=== PATIENT | male | born 1945 | race Caucasian/White ===

== ENCOUNTER 2024-04-09 15:14 | Emergency (ER) | payer MEDICARE, SELFPAY ==
[2024-04-09] VITALS (49 sets, daily range): BP systolic 106–150; BP diastolic 72–107; PULSE 77–142; RESP 12; TEMP 36.6; O2SAT 86–95; BMI 15.8
--- NOTE | 2024-04-09 15:15 | ECG_ITS ---
[facility] Test Date: 2024-04-09 Pat Name: Corwin Muller Department: Room: - Gender: Male Ekg Manager: : 1945 Requested By: OKSANA ANDERSEN Order Number: [id number] Reading MD: OKSANA ANDERSEN Measurements Intervals [place] Rate: 141 P: -[id number] MI: -[id number] QRS: -8 QRSD: 90 T: 60 QT: 328 QTc: 410 Interpretive Statements SVT, can't exclude atrial fibrillation 2420 RSR (QR) in lead V1/V2, consistent with right ventricular conduction delay 3434 Septal myocardial infarction, age undetermined 8102 Low QRS voltage in chest leads 9150 abnormal ECG Electronically Signed On 04-10-2024 7:12:01 EST by OKSANA ANDERSEN
--- NOTE | 2024-04-09 15:43 | ED.GENADUL1 ---
HPI HPI - General Adult General Chief complaint: Arrhythmia/Palpitations Stated complaint: possible afib Time Seen by Provider: 04/09/24 15:18 Source: patient Mode of arrival: walk-in Limitations: no limitations History of Present Illness HPI narrative: 79-year-old male to the emergency department with chief complaint of palpitations. Patient was seen in the office of his primary care doctor today and was found to have a heart rate in the 140s. He has no history of atrial arrhythmias. He reports that he has had some decreased exercise tolerance but no chest pain or shortness of breath over the last week. No recent illness. No nausea vomiting diarrhea. Related Data Home Medications ?Medication ?Instructions ?Recorded ?Confirmed amlodipine 10 mg tablet 10 mg PO DAILY 04/09/24 04/09/24 Allergies Allergy/AdvReac Type Severity Reaction Status Date / Time No Known Drug Allergies Allergy Verified 04/09/24 15:24 Opioid HPI Opioid Management Most Recent Opioid Data: No Data to Display Review of Systems ROS Status of ROS 10 or more systems reviewed and unremarkable except as noted in history and below PFSH PFSH Social History Little interest or pleasure in doing things: not at all Feeling down, depressed, or hopeless: not at all Exam Narrative Exam Narrative: VITALS: I have reviewed the triage vital signs. GENERAL: Well developed, well appearing adult in no acute distress. NEURO: Alert and oriented. Moves all extremities. Face is symmetric and expressive. EYES: PERRL. No scleral icterus or conjunctival injection. No discharge. HENT: Normocephalic, atraumatic. Hearing is grossly intact. Nares grossly patent and without discharge. Mucous membranes moist. NECK: No JVD. Patient moves neck without restriction. CARDIO: Rhythm regular. Tachycardic. No murmur, rub, or gallop. Pulses equal bilaterally in the upper and lower extremity. No lower extremity edema. PULM: Lungs clear to auscultation in all adler. No wheezes, rales, or rhonchi. No conversational dyspnea. No splinting, stridor, or accessory muscle use. GI/: Abdomen is soft and non-tender. Normoactive bowel sounds. EXTREMITIES: Symmetric muscle bulk. No joint swelling. No clubbing, cyanosis, or deformity. SKIN: Warm and dry. Normal turgor. No rash or lesions appreciated. PSYCH: Mood, affect, and interaction is appropriate to the setting. Constitutional Vital Signs, click to edit/add: Last Vital Signs Temp 98 F 04/09/24 15:19 Pulse 136 H 04/09/24 19:15 Resp 19 04/09/24 19:15 BP 135/97 H 04/09/24 19:01 Pulse Ox 93 L 04/09/24 19:15 O2 Del Method Room Air 04/09/24 15:19 Course Vital Signs Vital signs: Vital Signs Temperature 98 F 04/09/24 15:19 Pulse Rate 140 H 04/09/24 15:19 Respiratory Rate 18 04/09/24 15:19 Oxygen Delivery Method Room Air 04/09/24 15:19 Temperature 98 F 04/09/24 15:19 Pulse Rate 136 H 04/09/24 19:15 Respiratory Rate 19 04/09/24 19:15 Blood Pressure 135/97 H 04/09/24 19:01 Pulse Oximetry 93 L 04/09/24 19:15 Oxygen Delivery Method Room Air 04/09/24 15:19 Medical Decision Making [facility] Narrative Medical decision making narrative: 79-year-old male to the emergency department with chief complaint of palpitations, elevated heart rate. Tachycardic, otherwise stable vitals. The patient is afebrile. Cardiac workup is initiated. Magnesium level ordered. EKG without any discernible P waves. Narrow complex tachycardia that is supraventricular in nature. Sinus tachycardia versus atrial flutter with 2:1 conduction versus atrial fibrillation with pseudonormalization. No ischemic changes. Normal QTc. Lab work reviewed and noted. He has a small increase in his baseline creatinine from 1.8-2.3 today. His troponin is significantly elevated. 1 hour had a slight decrease. Chest x-ray without acute findings. He was started on Cardizem bolus and drip. Given his significantly elevated troponin level we will pursue transfer for this patient. A call was placed out to [facility]. Care was signed out to Dr. Guillen with transfer pending. Medical Records Medical records reviewed: Yes I reviewed the patient's medical records Lab Data Lab results reviewed: Yes I reviewed the patient's lab results Labs: Lab Results 04/09/24 04/09/24 Range/Units 15:30 17:03 WBC 9.9 (4.0-11.0) 10^3/uL RBC 5.01 (4.70-6.10) 10^6/uL Hgb 15.0 (14.0-18.0) g/dL Hct 43.4 (42.0-54.0) % MCV 86.6 (80.0-94.0) fL MCH 29.9 (25.9-34.0) pg MCHC 34.6 (29.9-35.2) g/dL RDW 14.0 (11.0-15.0) % Plt Count 259 (150-450) 10^3/uL MPV 10.6 (9.5-13.5) fL Neut % (Auto) 59.1 (43.0-75.0) % Lymph % (Auto) 25.7 (20.5-60.0) % [place] % (Auto) 10.4 (1.7-12.0) % Eos % (Auto) 3.9 (0.9-7.0) % Baso % (Auto) 0.5 (0.2-2.0) % Neut # (Auto) 5.9 (1.4-6.5) 10^3/uL Lymph # (Auto) 2.6 (1.2-3.8) 10^3/uL [place] # (Auto) 1.0 H (0.3-0.8) 10^3/uL Eos # (Auto) 0.4 (0.0-0.7) 10^3/uL Baso # (Auto) 0.1 (0.0-0.1) 10^3/uL Abs Immat Gran (auto) 0.04 H (0.00-0.03) 10^3/uL Imm/Tot Granulo (auto) 0.4 (0.0-0.5) % PT 11.6 (9.0-11.6) sec INR 1.11 APTT 28.5 (22.3-36.2) sec Sodium 137 (136-145) mmol/L Potassium 3.7 (3.5-5.1) mmol/L Chloride 103 (98-107) mmol/L Carbon Dioxide 24.6 (21.0-32.0) mmol/L Anion Gap 13.1 BUN 29.0 H (7.0-18.0) mg/dL Creatinine 2.62 H (0.70-1.30) mg/dL Est GFR ( Amer) 29 L (>=60 mL/min/1.73m^2) Est GFR (Non-Af Amer) 24 L (>=60 mL/min/1.73m^2) BUN/Creatinine Ratio 11.1 Glucose 108 H (74-106) mg/dL Calcium 9.4 (8.5-10.1) mg/dL Magnesium 2.0 (1.8-2.4) mg/dL Troponin I High Sens 910.6 H* 896.5 H* (4.0-76.1) pg/mL NT-Pro-B Natriuret Pep 8857.0 H* (<=1800.0) pg/mL Critical Care Time Critical Care Time Critical Care Time: Yes Total Critical Care Time: 35 Attestation: Critical Care Procedure Note Authorized and Performed by: Gómez Parker DO Total critical care time: 35 min Due to a high probability of clinically significant, life threatening deterioration, the patient required my highest level of preparedness to intervene emergently and I personally spent this critical care time directly and personally managing the patient. This critical care time included obtaining a history; examining the patient; pulse oximetry; ordering and review of studies; arranging urgent treatment with development of a management plan; evaluation of patient's response to treatment; frequent reassessment; and, discussions with other providers. This critical care time was performed to assess and manage the high probability of imminent, life-threatening deterioration that could result in multi-organ failure. It was exclusive of separately billable procedures and treating other patients and teaching time. Please see MDM section and the rest of the note for further information on patient assessment and treatment. Discharge Plan Discharge Chief Complaint: Arrhythmia/Palpitations Patient Disposition: Still a Patient Prescriptions / Home Meds: No Action amlodipine 10 mg tablet 10 mg PO DAILY Print Language: [place] Referrals: Ranjan Lomas DO [Primary Care Provider] - 1 week
[2024-04-09 15:56] LABS: Basophils Absolute Auto 0.1 10^3/uL (0.0-0.1); Basophils Percent Auto 0.5 % (0.2-2.0); Eosinophils Absolute Auto 0.4 10^3/uL (0.0-0.7); Eosinophils Percent Auto 3.9 % (0.9-7.0); Hematocrit 43.4 % (42.0-54.0); Immature Granulocytes Abs Auto 0.04 10^3/uL (0.00-0.03); Immature Granulocytes Pct Auto 0.4 % (0.0-0.5); Lymphocytes Absolute Auto 2.6 10^3/uL (1.2-3.8); Lymphocytes Percent Auto 25.7 % (20.5-60.0); Mean Corpuscular HGB Conc 34.6 g/dL (29.9-35.2); Mean Corpuscular Hemoglobin 29.9 pg (25.9-34.0); Mean Corpuscular Volume 86.6 fL (80.0-94.0); Mean Platelet Volume 10.6 fL (9.5-13.5); Monocytes Percent Auto 10.4 % (1.7-12.0); Neutrophils Absolute Auto 5.9 10^3/uL (1.4-6.5); Neutrophils Percent Auto 59.1 % (43.0-75.0); Platelet Count 259 10^3/uL (150-450); Red Blood Count 5.01 10^6/uL (4.70-6.10); White Blood Count 9.9 10^3/uL (4.0-11.0)
[2024-04-09 16:08] LABS: INR 1.11; Partial Thromboplastin Time 28.5 sec (22.3-36.2); Prothrombin Time 11.6 sec (9.0-11.6)
[2024-04-09 16:16] LABS: Anion Gap 13.1; BUN Creatinine Ratio 11.1; Calcium 9.4 mg/dL (8.5-10.1); Carbon Dioxide 24.6 mmol/L (21.0-32.0); Chloride 103 mmol/L (98-107); Estimated GFR (African America 29 (>=60 mL/min/1.73m^2); Estimated GFR (Non-African Ame 24 (>=60 mL/min/1.73m^2); Glucose 108 mg/dL (74-106); Potassium 3.7 mmol/L (3.5-5.1); Sodium 137 mmol/L (136-145)
[2024-04-09 16:18] LABS: Troponin I High Sensitivity 910.6 pg/mL (4.0-76.1)
[2024-04-09] MEDS: DILTIAZEM HCL 25 MG/5 ML VIAL 15 MG IV (16:50)
[2024-04-09] MEDS: dilTIAZem HCL 125 MG in 0.9 % SODIUM CHLORIDE 100 ML 10 MG IV (16:50)
[2024-04-09] MEDS: DILTIAZEM HCL 25 MG/5 ML VIAL 10 MG IV (17:20)
[2024-04-09 17:29] LABS: Troponin I High Sensitivity 896.5 pg/mL (4.0-76.1)
--- NOTE | 2024-04-09 20:35 | ED.GENADUL1 ---
HPI HPI - General Adult General Chief complaint: Arrhythmia/Palpitations Stated complaint: possible afib Time Seen by Provider: 04/09/24 15:18 Source: patient Mode of arrival: walk-in Limitations: no limitations History of Present Illness HPI narrative: 79-year-old male presented to the emergency department and was initially seen by Dr. Parker and signed out to me after discussing the case with him thoroughly. Please see his full history and physical exam. Related Data Home Medications ?Medication ?Instructions ?Recorded ?Confirmed amlodipine 10 mg tablet 10 mg PO DAILY 04/09/24 04/09/24 Allergies Allergy/AdvReac Type Severity Reaction Status Date / Time No Known Drug Allergies Allergy Verified 04/09/24 15:24 Opioid HPI Opioid Management Most Recent Opioid Data: No Data to Display PFSH PFSH Social History Little interest or pleasure in doing things: not at all Feeling down, depressed, or hopeless: not at all Exam Constitutional Vital Signs, click to edit/add: Last Vital Signs Temp 98 F 04/09/24 15:19 Pulse 136 H 04/09/24 19:15 Resp 19 04/09/24 19:15 BP 135/97 H 04/09/24 19:01 Pulse Ox 93 L 04/09/24 19:15 O2 Del Method Room Air 04/09/24 15:19 Course Vital Signs Vital signs: Vital Signs Temperature 98 F 04/09/24 15:19 Pulse Rate 140 H 04/09/24 15:19 Respiratory Rate 18 04/09/24 15:19 Oxygen Delivery Method Room Air 04/09/24 15:19 Temperature 98 F 04/09/24 15:19 Pulse Rate 136 H 04/09/24 19:15 Respiratory Rate 19 04/09/24 19:15 Blood Pressure 135/97 H 04/09/24 19:01 Pulse Oximetry 93 L 04/09/24 19:15 Oxygen Delivery Method Room Air 04/09/24 15:19 Medical Decision Making MDM Narrative Medical decision making narrative: The appears to be in atrial flutter and is tachycardic. He has already received IV Cardizem and was placed on a Cardizem drip. He was also given IV digoxin for rate control. Initial troponin was 910, repeat is 895. I have spoken to Dr. Langley at [facility] who accepts the patient. The patient is stable and agreeable for transfer. The patient is not dyspneic. Differential Diagnosis Differential Diagnosis: Atrial fibrillation, atrial flutter Lab Data Lab results reviewed: Yes I reviewed the patient's lab results Labs: Lab Results 04/09/24 04/09/24 Range/Units 15:30 17:03 WBC 9.9 (4.0-11.0) 10^3/uL RBC 5.01 (4.70-6.10) 10^6/uL Hgb 15.0 (14.0-18.0) g/dL Hct 43.4 (42.0-54.0) % MCV 86.6 (80.0-94.0) fL MCH 29.9 (25.9-34.0) pg MCHC 34.6 (29.9-35.2) g/dL RDW 14.0 (11.0-15.0) % Plt Count 259 (150-450) 10^3/uL MPV 10.6 (9.5-13.5) fL Neut % (Auto) 59.1 (43.0-75.0) % Lymph % (Auto) 25.7 (20.5-60.0) % [place] % (Auto) 10.4 (1.7-12.0) % Eos % (Auto) 3.9 (0.9-7.0) % Baso % (Auto) 0.5 (0.2-2.0) % Neut # (Auto) 5.9 (1.4-6.5) 10^3/uL Lymph # (Auto) 2.6 (1.2-3.8) 10^3/uL [place] # (Auto) 1.0 H (0.3-0.8) 10^3/uL Eos # (Auto) 0.4 (0.0-0.7) 10^3/uL Baso # (Auto) 0.1 (0.0-0.1) 10^3/uL Abs Immat Gran (auto) 0.04 H (0.00-0.03) 10^3/uL Imm/Tot Granulo (auto) 0.4 (0.0-0.5) % PT 11.6 (9.0-11.6) sec INR 1.11 APTT 28.5 (22.3-36.2) sec Sodium 137 (136-145) mmol/L Potassium 3.7 (3.5-5.1) mmol/L Chloride 103 (98-107) mmol/L Carbon Dioxide 24.6 (21.0-32.0) mmol/L Anion Gap 13.1 BUN 29.0 H (7.0-18.0) mg/dL Creatinine 2.62 H (0.70-1.30) mg/dL Est GFR ( Amer) 29 L (>=60 mL/min/1.73m^2) Est GFR (Non-Af Amer) 24 L (>=60 mL/min/1.73m^2) BUN/Creatinine Ratio 11.1 Glucose 108 H (74-106) mg/dL Calcium 9.4 (8.5-10.1) mg/dL Magnesium 2.0 (1.8-2.4) mg/dL Troponin I High Sens 910.6 H* 896.5 H* (4.0-76.1) pg/mL NT-Pro-B Natriuret Pep 8857.0 H* (<=1800.0) pg/mL Imaging Data Chest x-ray: Radiologist's impression: Bilateral interstitial infiltrates Critical Care Time Critical Care Time Critical Care Time: Yes Total Critical Care Time: 35 Attestation: Due to the high probability of sudden and clinically significant deterioration in the patient's condition he/she required the highest level of my preparedness to intervene urgently I provided critical care time including documentation time, medication orders and management, reevaluation, vital sign assessment, ordering and reviewing of lab tests, ordering and reviewing of x-ray studies, and admission orders. Aggregate critical care time is 35 minutes including only time during which I was engaged in work directly related to his/her care and did not include time spent treating other patients simultaneously. Discharge Plan Discharge Chief Complaint: Arrhythmia/Palpitations Clinical Impression: Atrial flutter Patient Disposition: [facility] Time of Disposition Decision: 20:35 Discharge Location: [facility] Condition: Fair Mode of Transportation: EMS
--- NOTE | 2024-04-09 20:51 | ECG_ITS ---
[facility] Test Date: 2024-04-09 Pat Name: LIOR SMITH Department: Room: - Gender: Male Vocational Guidance Counselor: : 1945 Requested By: OKSANA ANDERSEN Order Number: [id number] Reading MD: OKSANA ANDERSEN Measurements Intervals [place] Rate: 82 P: 60 HI: 276 QRS: 0 QRSD: 100 T: 90 QT: 382 QTc: 420 Interpretive Statements 1100 Sinus rhythm 1470 with occasional supraventricular premature complexes 2231 First degree AV block 2440 Incomplete right bundle branch block 3434 Septal myocardial infarction, age undetermined 9150 abnormal ECG Electronically Signed On 04-10-2024 7:13:33 EST by OKSANA ANDERSEN
[2024-04-09] MEDS: FUROSEMIDE 40 MG/4 ML VIAL IVP (22:12)
--- NOTE | 2024-04-09 22:40 | PC.NURSE ---
To room at 2215. Pt with respiratory distress--SPO2 is 87% with 5 L/NC, RR is 44 with neck and abdominal muscle use, anxious. NRM at 15 L applied, 40 mg IV Lasix given, and # 16 FR Coude Ruiz placed. MD aware and in room to assess. Pt placed on BiPAP. NSR with 1st degree AVB-rate is 90.
[2024-04-09] MEDS: MORPHINE SULFATE 2 MG/ML SYRINGE IV (22:45)
--- NOTE | 2024-04-09 22:55 | PC.NURSE ---
Cardizem remains at 5 mg/hr or 5 ml/hr. BiPAP /. Pt is tolerating this well. RR is 24 and less labored. Thus far 1000 ml emptied out of Ruiz.
--- NOTE | 2024-04-09 23:11 | PC.NURSE ---
called and updated about pt condition. Pt to be transported to [facility] per [facility] at 0045. Pt continues to diuresis well and RR is 20. He states that he is breathing and feeling much better. VSS.
--- NOTE | 2024-04-09 23:16 | PC.NURSE ---
Pt has a # 20 g to the L FA and a #20 G to the R hand. These were started at 2215, when it was noticed that pt accidentally d/c'ed the L AC IV. Cardizem running through the L hand IV.
[2024-04-10] VITALS: BP 121/76; PULSE 80
[2024-04-10 00:15] VITALS: PULSE 86
[2024-04-10 00:30] VITALS: PULSE 83
--- NOTE | 2024-04-10 00:34 | PC.NURSE ---
Pt continues to tolerate the BiPAP. VSS. He remains sleepy but fully oriented. Cardizem gtt continued at 5 mg/hr or 5 ml/hr. BPs remain WNLs. RR at 16.
[2024-04-10 00:36] VITALS: BP 116/73; PULSE 78; O2SAT 96
[2024-04-10 00:45] VITALS: BP 126/85; PULSE 85; O2SAT 98
--- NOTE | 2024-04-10 00:54 | PC.NURSE ---
Report called to [facility] staff. Report given to EMT-P. Care relinquished.
== END 2024-04-10 01:10 | disposition short-term general hospital (02) ==
PROVIDERS: Student in an Organized Health Care Education/Training Program; Emergency Provider Emergency Medicine; PCP Internal Medicine
DX: I48.92 Unspecified atrial flutter (principal)
CPT/HCPCS: 36415; 51702; 71045; 80048; 83735; 83880; 84484; 85025; 85610; 85730; 93005; 94660; 96365; 96366; 96375; 96376; 99285; J1940; J2270

== ENCOUNTER 2024-04-22 10:06 | Outpatient (OUT) | payer MEDICARE, SELFPAY ==
--- OUTSIDE RECORDS SUMMARY | 2024-04-22 10:22 | XMS_ITS | CCD ---
Author Organization [facility] Providers Care Park Recreation Manager Name Role Phone NATHALY, DR GANDHI Admitting Unavailable NATHALY, DR GANDHI Attending Unavailable NATHALY, DR GANDHI Primary Care Unavailable NATHALY, DR GANDHI Consulting Unavailable Nathaly, Ranjan Unavailable Ranjan Lomas DO Primary Care Provider Shivam ANGUIANO, Kurtis Admit Provider [phone] Ai Orantes RN Other Provider Unavailable Dequan Kirkpatrick DO Other Provider Bhavik ANGUIANO, Keron Other Provider [phone] Tyshawn ANGUIANO, Gurjit Mike Other Provider Suellen ANGUIANO, Mely Other Provider [phone] Yvan Mckeon MD Other Provider Hailey Weinberg APRN Other Provider Leonie Gaines MD Other Provider Geremias ANGUIANO, Lexi Leach Other Provider Bret Castañeda MD Other Provider Syd [facility]-, Susana Good Other Provider [phone] Felicia Aguilar MD Other Provider David VALVE TESTER-C, Tavia Other Provider Unavailable Eliana ANGUIANO, Tobi Other Provider Noel Lilly MD Other Provider Gin Conrad MD Other Provider Luis Patel MD Other Provider Cathleen Kumari APRN Other Provider Colt Curran DO Other Provider David Inman MD Other Provider Jn Yaens MD Attending Provider Jn Yanes Attending Unavailable Ranjan Lomas Primary Care Unavailable Ai Orantes Consulting Unavailable Kurtis Langley Admitting Unavailable Dequan Kirkpatrick Consulting Unavailable Keron Gutierres Consulting Unavailable Gurjit Villagran Consulting Unavail able Mely Ken Consulting Unavailable Yvan Mckeon Consulting Unavailab Hailey Garcia Consulting Unavailable Leonie Gaines Consulting Unavailable Lexi Archuleta Consulting Unavailab Bret Larsen Consulting Unavailable Susana Velarde Consulting Unavailable Felicia Aguilar Consulting Unavailable Tavia Hernandez Consulting Unavailable Tobi Monroy Consulting Unavailable Noel Lilly Consulting Unavailable Gin Conrad Consulting Unavailable Luis Patel Consulting Unavailable Cathleen Kumari Consulting Unavailable Colt Curran Jr Consulting UnavailDavid Christiansen Consulting Unavaila ble Medications Current Medications Medication Drug Class(es) Dates Sig (Normalized) Sig (Original) amiodarone hydrochloride 200 mg oral tablet (1 source) Antiarrhythmic Start: 04-16-2024 take 1 tablet by mouth three times daily, then take 1 tablet by mouth once daily Amiodarone 200 mg tablet Active 200 MG PO Three times daily 42 April 16, 2024 12:00am Amiodarone 200 mg TID for 1 week, then decrease to 200 mg daily. apixaban 2.5 mg oral tablet (1 source) Factor Xa Inhibitor Start: 04-16-2024 take 1 tablet by mouth twice daily Apixaban (Eliquis) 2.5 mg Tablet Active 2.5 MG PO Twice daily 60 April 16, 2024 12:00am aspirin 81 mg delayed release oral tablet (1 source) Platelet Aggregation Inhibitor, Nonsteroidal Anti-inflammatory Drug Start: 04-16-2024 take 1 tablet by mouth once daily Aspirin 81 mg Tablet,Delayed Release (Dr/Ec) Active 81 MG PO Daily 30 April 16, 2024 12:00am atorvastatin 10 mg oral tablet (9 sources) HMG-CoA Reductase Inhibitor Start: 06-27-2023 take 1 tablet by mouth once daily Atorvastatin 10 mg tablet Active 10 MG PO Daily June 26, 2023 11:00pm take 1 tablet by abdirizak th every twenty-four hours Atorvastatin Calcium 10 MG 1 tablet Oral ly Once a day Not-Taking/PRN furosemide 40 mg oral tablet (1 source) Loop Diuretic Start: 04-18-2024 take 1 tablet by mouth twice daily Furosemide 40 mg Tablet Active 40 MG PO BID@0800,1600 60 April 18, 2024 12:00am To begin therapy on 04/19/24 hydrALAZINE hydrochloride 25 mg oral tablet (1 source) Arteriolar Vasodilator Start: 04-18-2024 take 1 tablet by mouth twice daily Hydralazine 25 mg Tablet Active 25 MG PO Twice daily 60 April 18, 2024 12:00am 24 hr isosorbide mononitrate 30 mg extended release oral tablet (1 source) Nitrate Vasodilator Start: 04-16-2024 take 1 tablet by mouth once daily, then take 1 tablet by mouth every twenty-four hours Isosorbide Mononitrate 30 mg Tablet Extended Release 24 Hr Active 30 MG PO Daily at 0600 30 April 16, 2024 12:00am melatonin 5 mg oral tablet (1 source) Start: 04-18-2024 take 1 tablet by mouth once daily at bedtime as needed for sleep Melatonin 5 mg Tablet Active 5 MG PO Daily at bedtime as needed for sleep April 18, 2024 12:00am 24 hr metoprolol succinate 50 mg extended release oral tablet (1 source) beta-Adrenergic Susie Start: 04-16-2024 take 1 tablet by mouth twice daily Metoprolol Succinate 50 mg Tablet Extended Release 24 Hr Active 50 MG PO Twice daily 60 April 16, 2024 12:00am Multivitamin Adult (5 sources) Multivitamin Ford lt Active Multivitamin preparation (2 sources) Start: 06-27-2023 take 1 tablet by mouth once daily Multivitamin Active 1 TAB PO Daily June 27, 2023 12:00am Multivitamin tablet (2 sources) Start: 06-27-2023 take 1 tablet by mouth once daily Multivitamin tablet Active 1 TAB PO Daily June 26, 2023 11:00pm microencapsulated potassium chloride 20 meq extended release oral tablet (1 source) Start: 04-18-2024 Potassium Chloride (Klor-Con M20) 20 mEq Tablet,Er Particles/Crystals Active 20 MEQ PO Daily April 18, 2024 12:00am To start 04/19/24 with lasix spironolactone 25 mg oral tablet (1 source) Aldosterone Antagonist Start: 04-16-2024 Spironolactone 25 mg Tablet Active 12.5 MG PO Daily April 16, 2024 12:00am Completed/Discontinued Medications Medication Drug Class(es) Dates Sig (Normalized) Sig (Original) amLODIPine 10 mg oral tablet (14 sources) Dihydropyridine Calcium Channel Susie Start: 11-05-2023 End: 04-18-2024 take 1 tablet by mouth once daily Amlodipine 10 mg tablet Discontinued 0 .ROUTE .COMPLEX December 15, 2023 3:25pm April 18, 2024 12:06pm Take 1 tablet by mouth once daily Start: 06-27-2023 End: 11-05-2023 take 1 tablet by mouth once daily Amlodipine 10 mg tablet Discontinued 10 MG PO Daily June 26, 2023 11:00pm November 05, 2023 4:50pm take 1 tablet by abdirizak th once daily amLODIPine Besylate 10 MG Take 1 tablet by mouth once daily Active Brompheniramine / Pseudoephedrine (5 sources) alpha-Adrenergic Agonist Start: 02-02-2016 take 10 mL by mouth every six hours as needed Bromfed DM 30-2-10 MG/5ML 10 ml as needed Orally every 6 hrs Jan, Not-Taking/PRN Start: 02-02-2016 take 10 mL by mouth every six hours as needed Bromfed DM 30-2-10 MG/5ML 10 ml as needed Orally every 6 hrs Jan, Not-Taking Lidocaine (7 sources) Antiarrhythmic, Amide Local Anesthetic Start: 02-10-2023 Lidocaine Jan, 3 mL Start: 07-19-2022 Lidocaine 30 2022 30 mg triamcinolone acetonide 10 mg/ml injectable suspension (7 sources) Corticosteroid Start: 02-10-2023 Kenalog Jan 1 mL Start: 07-19-2022 Kenalog-40 June, 40 mg Problems Active Problems Problem Classification Problem Date Documented Date Episodic/Chronic Acute and unspecified renal failure (3 sources) Acute renal failure syndrome; Translations: [Acute kidney failure, unspecified] Onset: 04-10-2024 04-12-2024 Episodic Acute myocardial infarction (3 sources) Myocardial infarction; Translations: [Non-ST elevation (NSTEMI) myocardial infarction] Onset: 04-10-2024 04-10-2024 Chronic Cardiac dysrhythmias (7 sources) Atrial tachycardia; Translations: [Atrial tachycardia] Onset: 04-10-2024 04-09-2024 Chronic Chronic kidney disease (6 sources) Chronic kidney disease, stage 4 (severe); Translations: [Chronic kidney disease stage 3] Onset: 12-08-2021 04-12-2024 Chronic Chronic kidney disease (2 sources) Chronic kidney disease; Translations: [Chronic kidney disease, stage 3b] Onset: 04-10-2024 Congestive heart failure; nonhypertensive (9 sources) Heart failure with reduced ejection fraction; Translations: [Unspecified systolic (congestive) heart failure] Onset: 04-10-2024 04-11-2024 Chronic Diseases of mouth; excluding dental (3 sources) Recurrent aphthous stomatitis; Translations: [Recurrent oral aphthae] Episodic Disorders of lipid metabolism (16 sources) Pure hypercholesterolemia; Translations: [Familial hypercholesterolemia] 06-25-2023 Chronic Esophageal disorders (3 sources) Esophageal disorders; Translations: [Gastro-esophageal reflux disease with esophagitis, without bleeding] Onset: 04-19-2016 Essential hypertension (20 sources) Essential hypertension; Translations: [Essential (primary) hypertension] Onset: 04-10-2024 Chronic Hyperplasia of prostate (3 sources) Lower urinary tract symptoms due to benign prostatic hypertrophy; Translations: [Benign prostatic hyperplasia with lower urinary tract symptoms] Chronic Hypertension with complications and secondary hypertension (9 sources) Hypertensive chronic kidney disease with stage 1 through stage 4 chronic kidney disease, or unspecified chronic kidney disease; 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] Onset: 12-03-2021 Chronic Neoplasms of unspecified nature or uncertain behavior (11 sources) Neoplasm of uncertain behavior, unspecified; Translations: [Neoplasm of uncertain behavior] Onset: 11-10-2016 Episodic Osteoarthritis (20 sources) Arthritis of right hip; Translations: [Unilateral primary osteoarthritis, right hip] Onset: 03-28-2014 Chronic Other circulatory disease (3 sources) History of cerebrovascular accident without residual deficits; Translations: [Personal history of transient ischemic attack (TIA), and cerebral infarction without residual deficits] Episodic Other connective tissue disease (5 sources) Bilateral plantar fasciitis; Translations: [Plantar fascial fibromatosis] Episodic Other connective tissue disease (1 source) Plantar fascial fibromatosis Episodic Other ear and sense organ disorders (15 sources) Impacted cerumen; Translations: [Impacted cerumen, bilateral] Resolved: 11-10-2021 Episodic Other ear and sense organ disorders (2 sources) Impacted cerumen, bilateral Episodic Other ear and sense organ disorders (3 sources) Otalgia; Translations: [Otalgia, left ear] Episodic Other lower respiratory disease (1 source) Acute pulmonary edema; Translations: [Acute pulmonary edema] 04-11-2024 Episodic Other lower respiratory disease (2 sources) Acute pulmonary edema; Translations: [Acute edema of lung, unspecified] Onset: 04-10-2024 04-18-2024 Episodic Other non-traumatic joint disorders (16 sources) Arthralgia of the lower leg; Translations: [Pain in right knee] Episodic Other non-traumatic joint disorders (2 sources) Pain in right knee Episodic Other non-traumatic joint disorders (2 sources) Pain in left knee Episodic Other non-traumatic joint disorders (3 sources) Pain in right hip joint; Translations: [Pain in right hip] Episodic Other non-traumatic joint disorders (8 sources) Pain in unspecified knee; Translations: [Knee pain] Onset: 04-10-2024 06-25-2023 Episodic Other nutritional; endocrine; and metabolic disorders (3 sources) Overweight; Translations: [Overweight] Episodic Other screening for suspected conditions (not mental disorders or infectious disease) (1 source) Encounter for screening for malignant neoplasm of prostate; Translations: [ENC SCREEN MALIG NEOPLASM PROSTATE] Onset: 12-08-2021 Episodic Other upper respiratory disease (3 sources) Seasonal allergic rhinitis; Translations: [Other seasonal allergic rhinitis] Onset: 11-10-2016 Chronic Marely-; endo-; and myocarditis; cardiomyopathy (except that caused by tuberculosis or sexually transmitted disease) (3 sources) Cardiomyopathy; Translations: [Cardiomyopathy, unspecified] Onset: 04-10-2024 04-11-2024 Chronic Residual codes; unclassified (3 sources) Tobacco user; Translations: [Tobacco use] Episodic Respiratory failure; insufficiency; arrest (adult) (3 sources) Acute respiratory failure; Translations: [Acute respiratory failure with hypoxia] Onset: 04-10-2024 04-11-2024 Episodic Spondylosis; intervertebral disc disorders; other back problems (8 sources) Lumbar spondylosis; Translations: [Spondylosis without myelopathy or radiculopathy, lumbar region] Chronic Sprains and strains (6 sources) Late effect of sprain AND/OR strain without tendon injury; Translations: [Strain of left quadriceps muscle, fascia and tendon, sequela] Episodic Unclassified (1 source) A [facility] screening has identified you as FRAIL or AT RISK FOR FRAILTY. This puts you at a higher risk for infection, illness, falls, and other injuries. Here are four ways to help you reduce your risk of frailty: 1. IDENTIFY EARLY SIGNS OF FRAILTY Discuss contributing factors and concerns with your doctor 2. BE ACTIVE Walking and light strengthening exercises will help reduce weakness 3. EAT WELL Aim for three healthy meals a day that are high in protein 4. THINK POSITIVE Keep your mind active by being sociable and continuing to learn References: Stay Strong: Four Ways to Beat the Frailty Risk [email or web address] lhr-gee-jctqacsytj/sta v-hgxujv-gkew-ways-to- szup-qfg-ezk ilty-risk 04-16-2024 Unclassified (1 source) Supraventricular tachycardia, unspecified; Translations: [Supraventricular tachycardia, unspecified] Onset: 04-10-2024 Urinary tract infections (3 sources) Urinary tract infectious disease; Translations: [Urinary tract infection, site not specified] Onset: 04-10-2024 04-14-2024 Episodic Past or Other Problems Problem Classification Problem Date Documented Da te Episodic/Chronic Acute bronchitis (3 sources) Acute bronchitis; Translations: [Acute bronchitis, unspecified] Onset: 04-29-2013 Episodic Joint disorders and dislocations; trauma-related (3 sources) Current tear of medial cartilage AND/OR meniscus of knee; Translations: [Peripheral tear of medial meniscus, current injury, left knee, initial encounter] Onset: 08-09-2017 Episodic Other connective tissue disease (3 sources) Bursitis; Translations: [Other bursitis, not elsewhere classified, unspecified site] Onset: 03-28-2014 Episodic Other lower respiratory disease (3 sources) Cough; Translations: [Cough, unspecified] Onset: 04-19-2016 Episodic Other skin disorders (3 sources) Actinic keratosis; Translations: [Actinic keratosis] Onset: 03-24-2017 Episodic Other upper respiratory infections (3 sources) Acute pharyngitis; Translations: [Acute pharyngitis, unspecified] Onset: 04-29-2013 Episodic Results Test Name Value Interpretation Reference Range Facility Albumin [Mass/volume] in Ser um or Plasma by Bromocresol green (BCG) dye binding methoOrdered By: Felicia Aguilar on 04-18-2024 Albumin BCG dye [Mass/Vol] Albumin [Mass/volume] in Serum or Plasma by Bromocresol green (BCG) dye binding metho 3.5-5.7 [facility] Calcium [Mass/volume] in Ser um or PlasmaOrdered By: Felicia Aguilar on 04-18-2024 Calcium [Mass/Vol] Calcium [Mass/volume ] in Serum or Plasma 8.6-10.3 [facility] Carbon dioxide, total [Moles /volume] in Serum or PlasmaOrdered By: Felicia Aguilar on 04-18-2024 CO2 [Moles/Vol] Carbon dioxide, tota l [Moles/volume] in Serum or Plasma 21.0-31.0 [facility] Chloride [Moles/volume] in S srikanth or PlasmaOrdered By: Felicia Aguilar 04-18-2024 Chloride [Moles/Vol] Chloride [Moles/vol ume] in Serum or Plasma 98-107 [facility] Creatinine [Mass/volume] in Serum or PlasmaOrdered By: Felicia Aguilar 04-18-2024 Creatinine [Mass/Vol] Creatinine [Mass/v olume] in Serum or Plasma High 0.70-1.30 [facility] Creatinine [Mass/volume] in UrineOrdered By: Felicia Aguilar on 04-18-2024 Creatinine (U) [Mass/Vol] Creatinine [Mass/volume] in Urine [facility] Comment on above: No reference range e stablished Creatinine, Urine (Random)on 04-18-2024 Creatinine, Urine (Random) 84.00 mg/dL Normal [facility] Comment on above: Result Comment: No r eference range established Performed By: #### U RONALD SWARTZ #### [address] [place] [address] [place] Glucose [Mass/volume] in Ser um or PlasmaOrdered By: Felicia Aguilar on 04-18-2024 Glucose [Mass/Vol] Glucose [Mass/volume ] in Serum or Plasma High 70-100 [facility] Comment on above: ADA recommended refe rence rangeRandom Glucose Reference Range is dependent on time and content of last meal. Glucose of more than 200 mg/dL in a nonstressed, ambulatory subject supports the diagnosis of Diabetes Mellitus. No Panel InformationOrdered By: Felicia Aguilar on 04-18-2024 Estimated GFR (CKD-EPI) 19.726 mL/Min [facility] Creatinine Clearance (Chem 26.05 [facility] Phosphate [Mass/volume] in S srikanth or PlasmaOrdered By: Felicia Aguilar on 04-18-2024 Phosphate [Mass/Vol] Phosphate [Mass/vol ume] in Serum or Plasma 2.5-4.5 [facility] Potassium [Moles/volume] in Serum or PlasmaOrdered By: Felicia Aguilar on 04-18-2024 Potassium [Moles/Vol] Potassium [Moles/v olume] in Serum or Plasma 3.5-5.1 [facility] Comment on above: Hemolysis is present at a level that could interfere with the result.Contact lab if redraw is required Renal Function Panelon 04-18 Albumin [Mass/Vol] 3.8 g/dL Normal 3.5-5.7 [facility] Comment on above: Performed By: #### C SHERWIN BUCHANANONUAPLUS #### [facility] [address] [id number] [facility] Anion gap [Moles/Vol] 12.6 mmol/L Normal 6.0-15.0 [facility] Comment on above: Performed By: #### C SHERWIN BUCHANANONUAPLUS #### [facility] [address] [id number] [facility] Calcium [Mass/Vol] 9.3 mg/dL Normal 8.6-10.3 [facility] Comment on above: Performed By: #### C SHERWIN BUCHANANONUAPLUS #### [address] Chloride [Moles/Vol] 102 mmol/L Normal 98-107 [facility] Comment on above: Performed By: #### C UU, ADDONUAPLUS #### [address] CO2 [Moles/Vol] 24.1 mmol/L Normal 21.0-31.0 [facility] Comment on above: Performed By: #### C UU, ADDONUAPLUS #### [address] Creatinine [Mass/Vol] 3.08 mg/dL High 0.70-1.30 [facility] Comment on above: Performed By: #### C UU, ADDONUAPLUS #### [address] Creatinine Clr Calc Pharmacy 26.05 Normal [facility] Comment on above: Result Comment: PERF ORMED BY: [place] [address] PATHOLOGIST [employer] SALES REPRESENTATIVE RADHA MANNING M.D. Performed By: #### C UU, ADDONUAPLUS #### [address] Estimated GFR 19.726 mL/Min Normal [facility] Comment on above: Performed By: #### C UU, ADDONUAPLUS #### [address] Glucose [Mass/Vol] 141 mg/dL High 70-100 [facility] Comment on above: Result Comment: [place] Glucose Reference Range is dependent on time and content of last meal. Glucose of more than 200 mg/dL in a nonstressed, ambulatory subject supports the diagnosis of Diabetes Mellitus. ADA recommended reference range Performed By: #### C UU, ADDONUAPLUS #### [address] Phosphate [Mass/Vol] 3.2 mg/dL Normal 2.5-4.5 [facility] Comment on above: Performed By: #### C UU, ADDONUAPLUS #### [address] Potassium [Moles/Vol] 4.7 mmol/L Normal 3.5-5.1 [facility] Comment on above: Result Comment: Hemo lysis is present at a level that could interfere with the result. Contact lab if redraw is required Performed By: #### C UU, ADDONUAPLUS #### [address] Sodium [Moles/Vol] 134 mmol/L Low 136-145 [facility] Comment on above: Performed By: #### C UU, ADDONUAPLUS #### [address] Urea nitrogen [Mass/Vol] 50 mg/dL High 7-25 [facility] Comment on above: Performed By: #### C UU, ADDONUAPLUS #### [address] Serum or plasma anion gap de terminationOrdered By: Felicia Aguilar on 04-18-2024 Anion gap [Moles/Vol] Serum or plasma an ion gap determination 6.0-15.0 [facility] Sodium [Moles/volume] in Ser um or PlasmaOrdered By: Felicia Aguilar on 04-18-2024 Sodium [Moles/Vol] Sodium [Moles/volume ] in Serum or Plasma Low 136-145 [facility] Sodium [Moles/volume] in Uri neOrdered By: Felicia Aguilar on 04-18-2024 Sodium (U) [Moles/Vol] Sodium [Moles/vol ume] in Urine [facility] Comment on above: No reference range e stablished Sodium, Urine (Random)on Sodium (U) [Moles/Vol] 32 mmol/L Normal [facility] Comment on above: Result Comment: No r eference range established PERFORMED BY: [place] [address] PATHOLOGIST [employer] SALES REPRESENTATIVE RADHA MANNING M.D. Performed By: #### U RONALD SWARTZ #### [facility] [address] Urea nitrogen [Mass/volume] in Serum or PlasmaOrdered By: Felicia Aguilar on 04-18-2024 Urea nitrogen [Mass/Vol] Urea nitrogen [Mass/volume] in Serum or Plasma High 7-25 [facility] Erythrocyte distribution wid th Auto (RBC) [Ratio]Ordered By: Jersey Bess on 04-17-2024 Erythrocyte distribution width (RBC) [Ratio] Erythrocyte distribution width [Ratio] by Automated count 12.0-14.8 [facility] Hematocrit Auto (Bld) [Volum e fraction]Ordered By: Jersey Bess on 04-17-2024 Hematocrit (Bld) [Volume fraction] Hematocrit [Volume Fraction] of Blood by Automated count 38.8-50.0 [facility] Hemoglobin [Mass/volume] in BloodOrdered By: Jersey Bess on 04-17-2024 Hemoglobin (Bld) [Mass/Vol] Hemoglobin [Mass/volume] in Blood 13.0-17.0 [facility] Hemogram CBC Without Diffon 04-17-2024 Erythrocyte distribution width (RBC) [Ratio] 14.7 % Normal 12.0-14.8 [facility] Comment on above: Performed By: #### C CHANEL ADDONUAPLUS #### [address] Hematocrit (Bld) [Volume fraction] 42.0 % Normal 38.8-50.0 [facility] Comment on above: Performed By: #### C CHANEL ADDONUAPLUS #### [facility] [address] Hemoglobin (Bld) [Mass/Vol] 14.5 g/dL Normal 13.0-17.0 [facility] Comment on above: Performed By: #### C CHANEL ADDONUAPLUS #### [facility] [address] MCH (RBC) [Entitic mass] 30.2 pg Normal 27.5-35.2 [facility] Comment on above: Performed By: #### C UU, ADDONUAPLUS #### [facility] [address] MCV (RBC) [Entitic vol] 87.5 fL Normal 83.5-101 [facility] Comment on above: Performed By: #### C UU, ADDONUAPLUS #### [address] Mean Corpuscular HGB Conc 34.5 g/dL Normal 32.5-35.6 [facility] Comment on above: Performed By: #### C UU, ADDONUAPLUS #### [address] Platelet mean volume (Bld) [Entitic vol] 7.6 fL Normal 6.6-10.1 [facility] Comment on above: Result Comment: PERF ORMED BY: [place] [address] PATHOLOGIST [employer] SAL[employer] REPRESENTATIVE RADHA MANNING M.D. Performed By: #### C UU, ADDONUAPLUS #### [address] Platelets (Bld) [#/Vol] 283 10*3/uL Normal 150-450 [facility] Comment on above: Performed By: #### C UU, ADDONUAPLUS #### [address] RBC (Bld) [#/Vol] 4.80 10*6/uL Normal 3.90-5.60 [facility] Comment on above: Performed By: #### C UU, ADDONUAPLUS #### [address] WBC (Bld) [#/Vol] 10.0 10*3/uL Normal 4.1-10.5 [facility] Comment on above: Performed By: #### C UU, ADDONUAPLUS #### [address] Leukocytes [#/volume] correc ariana for nucleated erythrocytes in Blood by Automated counOrdered By: Obaydah Daromar on 04-17-2024 WBC corrected for nucl RBC Auto (Bld) [#/Vol] Leukocytes [#/volume] corrected for nucleated erythrocytes in Blood by Automated coun 4.1-10.5 [facility] MCH Auto (RBC) [Entitic mass ]Ordered By: Obaydah Daromar on 04-17-2024 MCH (RBC) [Entitic mass] MCH [Entitic mass] by Automated count 27.5-35.2 [facility] MCHC Auto (RBC) [Mass/Vol]Or dered By: Obaydah Daromar on 04-17-2024 MCHC (RBC) [Mass/Vol] MCHC [Mass/volume] by Automated count 32.5-35.6 [facility] MCV Auto (RBC) [Entitic vol] Ordered By: Obaydah Daromar on 04-17-2024 MCV (RBC) [Entitic vol] MCV [Entitic vol ume] by Automated count 83.5-101 [facility] Platelet mean volume Auto (B ld) [Entitic vol]Ordered By: Obaydah Daromar on 04-17-2024 Platelet mean volume (Bld) [Entitic vol] Platelet mean volume [Entitic volume] in Blood by Automated count 6.6-10.1 [facility] Platelets Auto (Bld) [#/Vol] Ordered By: Obaydah Daromar on 04-17-2024 Platelets (Bld) [#/Vol] Platelets [#/vol ume] in Blood by Automated count 150-450 [facility] RBC Auto (Bld) [#/Vol]Ordere d By: Obaydah Daromar on 04-17-2024 RBC (Bld) [#/Vol] Erythrocytes [#/volu me] in Blood by Automated count 3.90-5.60 [facility] Renal Function Panelon 04-17 Albumin [Mass/Vol] 3.7 g/dL Normal 3.5-5.7 [facility] Comment on above: Performed By: #### B MP, CBCNO #### [address] Anion gap [Moles/Vol] 13.3 mmol/L Normal 6.0-15.0 [facility] Comment on above: Performed By: #### B AMARIS, CBCNO #### [address] Calcium [Mass/Vol] 9.4 mg/dL Normal 8.6-10.3 [facility] Comment on above: Performed By: #### B AMARIS, CBCNO #### [address] Chloride [Moles/Vol] 103 mmol/L Normal 98-107 [facility] Comment on above: Performed By: #### B AMARIS, CBCNO #### [address] CO2 [Moles/Vol] 25.0 mmol/L Normal 21.0-31.0 [facility] Comment on above: Performed By: #### B AMARIS CBCNO #### [address] Creatinine [Mass/Vol] 3.26 mg/dL Significan t change up 0.70-1.30 [facility] Comment on above: Performed By: #### B AMARIS CBCNO #### [place] [address] [place] Creatinine Clr Calc Pharmacy 24.61 Normal [facility] Comment on above: Result Comment: PERF ORMED BY: [place] [address] PATHOLOGIST [employer] REPRESENTATIVE RADHA MANNING M.D. Performed By: #### B AMARIS, CBCNO #### [address] Estimated GFR 18.426 mL/Min Normal [facility] Comment on above: Performed By: #### B AMARIS, CBCNO #### [address] Glucose [Mass/Vol] 100 mg/dL Normal 70-100 [facility] Comment on above: Result Comment: [place] Glucose Reference Range is dependent on time and content of last meal. Glucose of more than 200 mg/dL in a nonstressed, ambulatory subject supports the diagnosis of Diabetes Mellitus. ADA recommended reference range Performed By: #### B AMARIS CBCNO #### [facility] [address] Phosphate [Mass/Vol] 4.4 mg/dL Normal 2.5-4.5 [facility] Comment on above: Performed By: #### B AMARIS, CBCNO #### [address] Potassium [Moles/Vol] 4.3 mmol/L Normal 3.5-5.1 [facility] Comment on above: Performed By: #### B AMARIS CBCNO #### [address] Sodium [Moles/Vol] 137 mmol/L Normal 136-145 [facility] Comment on above: Performed By: #### B AMARIS CBCNO #### [address] Urea nitrogen [Mass/Vol] 53 mg/dL High 7-25 [facility] Comment on above: Performed By: #### B AMARIS CBCNO #### [address] Hemogram CBC Without Diffon 04-16-2024 Erythrocyte distribution width (RBC) [Ratio] 14.2 % Normal 12.0-14.8 [facility] Comment on above: Performed By: #### C J LUIS BUCHANANPLUS #### [place] [address] [place] Hematocrit (Bld) [Volume fraction] 43.4 % Normal 38.8-50.0 [facility] Comment on above: Performed By: #### C J LUIS BUCHANANPLUS #### [address] Hemoglobin (Bld) [Mass/Vol] 15.0 g/dL Normal 13.0-17.0 [facility] Comment on above: Performed By: #### C VENU BUCHANANUAPLUS #### [address] MCH (RBC) [Entitic mass] 30.2 pg Normal 27.5-35.2 [facility] Comment on above: Performed By: #### C UU, ADDONUAPLUS #### [address] MCV (RBC) [Entitic vol] 87.2 fL Normal 83.5-101 [facility] Comment on above: Performed By: #### C UU, ADDONUAPLUS #### [address] Mean Corpuscular HGB Conc 34.6 g/dL Normal 32.5-35.6 [facility] Comment on above: Performed By: #### C UU, ADDONUAPLUS #### [address] Platelet mean volume (Bld) [Entitic vol] 7.8 fL Normal 6.6-10.1 [facility] Comment on above: Result Comment: PERF ORMED BY: [place] [address] PATHOLOGIST [employer] REPRESENTATIVE RADHA MANNING M.D. Performed By: #### C UU, ADDONUAPLUS #### [address] Platelets (Bld) [#/Vol] 297 10*3/uL Normal 150-450 [facility] Comment on above: Performed By: #### C UU, ADDONUAPLUS #### [address] RBC (Bld) [#/Vol] 4.98 10*6/uL Normal 3.90-5.60 [facility] Comment on above: Performed By: #### C UU, ADDONUAPLUS #### [address] WBC (Bld) [#/Vol] 8.7 10*3/uL Normal 4.1-10.5 [facility] Comment on above: Performed By: #### C CHANEL TINO #### [address] NM brianna perf SPECT rest stron 04-16-2024 NM brianna perf SPECT rest str [facility] Main [place] [address] [place] [address] Nuclear Medicine Report Signed Patient: Corwin Muller MR#: [id number] : 1945 Acct:[id number] Age/Sex: 79 / M ADM Date: 04/10/24 Loc: Room: [address] [place] [address] Type: ADM IN Attending Dr: Jersey Bess MD Copies to: MD Mely Templeton MD Obaydah M Daromar, MD Ordering Provider: Mely Ken MD Date of Service: 04/15/24 NM/NM brianna perf SPECT rest str: Afib/HF NUCLEAR MYOCARDIAL PERFUSION DATE OF PROCEDURE: 04/16/24 PROCEDURE: The patient received a stress dose of Lexiscan and was then injected with 29.4 millicuries of Technetium 99M Sestamibi. For rest images the patient was injected with 29.7 millicuries of Technetium 99M Sestamibi. FINDINGS: The raw cine images were reviewed. The post stress and rest perfusion images were reviewed as well as the computer quantification.? There is a large severe anteroseptal, inferoseptal and apical fixed defect with mild reversibility of the inferoseptum. There is also a fixed inferior wall defect. On the gated portion of the study, there was severely reduced left ventricular function. EF 26% with severe global hypokinesis and apical akinesis. TID score was within normal limits (0.93). CONCLUSION: 1. Abnormal MPI study. There is a large severe anteroseptal, inferoseptal and apical fixed defect with mild reversibility of the inferoseptum. There is also a fixed inferior wall defect. 2. Left ventricular function was severely reduced at 26% with severe global hypokinesis and apical akinesis. 3. No comparison study. Impression dictated by: Jayda Burgess M.D.04/16/2024 12:45 PM Dictation Location: [id number] Transcribed By: RK 04/16/24 1245 Dictated By: Jayda Burgess MD 04/16/24 1237 Signed By: 04/16/24 1245 Normal [facility] Renal Function Panelon 04-16 Albumin [Mass/Vol] 3.6 g/dL Normal 3.5-5.7 [facility] Comment on above: Performed By: #### B AMARIS, CBCNO #### [address] Anion gap [Moles/Vol] 16.3 mmol/L High 6.0-15.0 [facility] Comment on above: Performed By: #### B AMARIS, CBCNO #### [facility] [address] [place] [address] [place] Calcium [Mass/Vol] 9.1 mg/dL Normal 8.6-10.3 [facility] Comment on above: Performed By: #### B AMARIS, CBCNO #### [facility] [address] [place] [address] [place] Chloride [Moles/Vol] 104 mmol/L Normal 98-107 [facility] Comment on above: Performed By: #### B AMARIS, CBCNO #### [facility] [address] [place] [address] [place] CO2 [Moles/Vol] 21.6 mmol/L Normal 21.0-31.0 [facility] Comment on above: Performed By: #### B AMARIS, CBCNO #### [facility] [address] [place] [id number] [place] Creatinine [Mass/Vol] 2.68 mg/dL High 0.70-1.30 [facility] Comment on above: Performed By: #### B AMARIS, CBCNO #### [facility] [address] [place] [id number] [place] Creatinine Clr Calc Pharmacy 29.94 Normal [facility] Comment on above: Result Comment: PERF ORMED BY: [place] [address] PATHOLOGIST [employer] REPRESENTATIVE RADHA MANNING M.D. Performed By: #### B AMARIS, CBCNO #### [facility] [address] Estimated GFR 23.310 mL/Min Normal [facility] Comment on above: Performed By: #### B AMARIS, CBCNO #### [address] Glucose [Mass/Vol] 99 mg/dL Normal 70-100 [facility] Comment on above: Result Comment: [facility] Glucose Reference Range is dependent on time and content of last meal. Glucose of more than 200 mg/dL in a nonstressed, ambulatory subject supports the diagnosis of Diabetes Mellitus. ADA recommended reference range Performed By: #### B AMARIS, CBCNO #### [address] Phosphate [Mass/Vol] 3.6 mg/dL Normal 2.5-4.5 [facility] Comment on above: Performed By: #### B AMARIS, CBCNO #### [address] Potassium [Moles/Vol] 3.9 mmol/L Normal 3.5-5.1 [facility] Comment on above: Result Comment: Hemo lysis is present at a level that could interfere with the result. Contact lab if redraw is required Performed By: #### B AMARIS, CBCNO #### [place] [address] [place] Sodium [Moles/Vol] 138 mmol/L Normal 136-145 [facility] Comment on above: Performed By: #### B AMARIS, CBCNO #### [place] [id number] [place] Urea nitrogen [Mass/Vol] 42 mg/dL High 7-25 [facility] Comment on above: Performed By: #### B AMARIS, CBCNO #### [place] [id number] [place] Alanine aminotransferase [En zymatic activity/volume] in Serum or PlasmaOrdered By: Jersey Bess on 04-15-2024 ALT [Catalytic activity/Vol] Alanine aminotransferase [Enzymatic activity/volume] in Serum or Plasma 7-52 [facility] Alkaline phosphatase [Enzyma tic activity/volume] in Serum or PlasmaOrdered By: Jersey Bess on 04-15-2024 ALP [Catalytic activity/Vol] Alkaline phosphatase [Enzymatic activity/volume] in Serum or Plasma 34-104 [facility] Aspartate aminotransferase [ Enzymatic activity/volume] in Serum or PlasmaOrdered By: Obsusandali Covarrubiasomar on 04-15-2024 AST [Catalytic activity/Vol] Aspartate aminotransferase [Enzymatic activity/volume] in Serum or Plasma 13-39 [facility] Bilirubin.total [Mass/volume ] in Serum or PlasmaOrdered By: Obchandrakant Bess on 04-15-2024 Bilirubin [Mass/Vol] Bilirubin.total [Mass/volume] in Serum or Plasma 0.3-1.0 [facility] Comprehensive Metabolic Pane nazanin 04-15-2024 Albumin [Mass/Vol] 3.6 g/dL Normal 3.5-5.7 [facility] Comment on above: Performed By: #### B RAUL GLEZ #### [address] Albumin/Globulin [Mass ratio] 1.2 {ratio} Normal [facility] Comment on above: Performed By: #### B RAUL GLEZ #### [place] [id number] [facility] ALP [Catalytic activity/Vol] 46 U/L Normal 34-104 [facility] Comment on above: Performed By: #### B RAUL GLEZ #### [facility] [address] [place] [id number] [place] ALT [Catalytic activity/Vol] 27 U/L Normal 7-52 [facility] Comment on above: Performed By: #### B ALE GLEZNO #### [place] [id number] [facility] Anion gap [Moles/Vol] 11.5 mmol/L Normal 6.0-15.0 [facility] Comment on above: Performed By: #### B ALE GLEZNO #### [address] AST [Catalytic activity/Vol] 30 U/L Normal 13-39 [facility] Comment on above: Performed By: #### B AMARIS CBCNO #### [address] Bilirubin [Mass/Vol] 0.6 mg/dL Normal 0.3-1.0 [facility] Comment on above: Performed By: #### B AMARIS, CBCNO #### [address] Calcium [Mass/Vol] 9.2 mg/dL Normal 8.6-10.3 [facility] Comment on above: Performed By: #### B AMARIS CBCNO #### [address] Chloride [Moles/Vol] 104 mmol/L Normal 98-107 [facility] Comment on above: Performed By: #### B AMARIS CBCNO #### [address] CO2 [Moles/Vol] 26.6 mmol/L Normal 21.0-31.0 [facility] Comment on above: Performed By: #### B AMARIS CBCNO #### [address] Creatinine [Mass/Vol] 2.58 mg/dL High 0.70-1.30 [facility] Comment on above: Performed By: #### B AMARIS CBCNO #### [address] Creatinine Clr Calc Pharmacy 31.18 Normal [facility] Comment on above: Performed By: #### B AMARIS CBCNO #### [address] Estimated GFR 24.398 mL/Min Normal [facility] Comment on above: Performed By: #### B AMARIS CBCNO #### [address] Globulin (S) [Mass/Vol] 2.9 g/dL Normal [facility] Comment on above: Performed By: #### B AMARIS, CBCNO #### [address] Glucose [Mass/Vol] 100 mg/dL Normal 70-100 [facility] Comment on above: Result Comment: [place] Glucose Reference Range is dependent on time and content of last meal. Glucose of more than 200 mg/dL in a nonstressed, ambulatory subject supports the diagnosis of Diabetes Mellitus. ADA recommended reference range Performed By: #### B AMARIS, CBCNO #### [address] Potassium [Moles/Vol] 4.1 mmol/L Normal 3.5-5.1 [facility] Comment on above: Performed By: #### B AMARIS, CBCNO #### [address] Protein [Mass/Vol] 6.5 g/dL Normal 6.4-8.9 [facility] Comment on above: Performed By: #### B AMARIS, CBCNO #### [address] Sodium [Moles/Vol] 138 mmol/L Normal 136-145 [facility] Comment on above: Performed By: #### B AMARIS, CBCNO #### [address] Urea nitrogen [Mass/Vol] 38 mg/dL High 7-25 [facility] Comment on above: Performed By: #### B AMARIS, CBCNO #### [address] Globulin Calc (S) [Mass/Vol] Ordered By: Jersey Bess on 04-15-2024 Globulin (S) [Mass/Vol] Serum globulin m easurement by calculation (mass/volume) [facility] Hemogram CBC Without Diffon 04-15-2024 Erythrocyte distribution width (RBC) [Ratio] 14.0 % Normal 12.0-14.8 [facility] Comment on above: Performed By: #### C UU, ADDONUAPLUS #### [address] [address] [place] Hematocrit (Bld) [Volume fraction] 42.5 % Normal 38.8-50.0 [facility] Comment on above: Performed By: #### C UU, ADDONUAPLUS #### [address] Hemoglobin (Bld) [Mass/Vol] 14.8 g/dL Normal 13.0-17.0 [facility] Comment on above: Performed By: #### C UU, ADDONUAPLUS #### [address] MCH (RBC) [Entitic mass] 30.3 pg Normal 27.5-35.2 [facility] Comment on above: Performed By: #### C UU, ADDONUAPLUS #### [address] MCV (RBC) [Entitic vol] 87.1 fL Normal 83.5-101 [facility] Comment on above: Performed By: #### C UU, ADDONUAPLUS #### [address] Mean Corpuscular HGB Conc 34.8 g/dL Normal 32.5-35.6 [facility] Comment on above: Performed By: #### C UU, ADDONUAPLUS #### [address] Platelet mean volume (Bld) [Entitic vol] 7.7 fL Normal 6.6-10.1 [facility] Comment on above: Result Comment: PERF ORMED BY: [place] [address] PATHOLOGIST [employer] REPRESENTATIVE RADHA MANNING M.D. Performed By: #### C UU, ADDONUAPLUS #### [address] Platelets (Bld) [#/Vol] 270 10*3/uL Normal 150-450 [facility] Comment on above: Performed By: #### C UU, ADDONUAPLUS #### [facility] [address] RBC (Bld) [#/Vol] 4.88 10*6/uL Normal 3.90-5.60 [facility] Comment on above: Performed By: #### C UU, ADDONUAPLUS #### [facility] [address] WBC (Bld) [#/Vol] 8.5 10*3/uL Normal 4.1-10.5 [facility] Comment on above: Performed By: #### C UU, ADDONUAPLUS #### [address] Magnesiumon 04-15-2024 Magnesium [Mass/Vol] 2.1 mg/dL Normal 1.9-2.7 [facility] Comment on above: Result Comment: PERF ORMED BY: [place] [address] PATHOLOGIST [employer] SAL[employer] REPRESENTATIVE RADHA MANNING M.D. Performed By: #### B MP, CBCNO #### [address] Magnesium [Mass/volume] in S srikanth or PlasmaOrdered By: Tobi Monroy on 04-15-2024 Magnesium [Mass/Vol] Magnesium [Mass/vol ume] in Serum or Plasma 1.9-2.7 [facility] No Panel InformationOrdered By: Jayda Burgess on 04-15-2024 [facility] [place] [address] Cardiac Stress Test Signed Patient: Corwin Muller MR#: [id number] : 1945 Date of Service:0 04/15/24 Age/Sex: 79 / M ADM Date: 5 Loc: Room: [address] [place] [address] Type: ADM IN Attending Dr: Jersey Bess MD Copies to: DO Jayda Johansen MD Obaydah M Daromar, MD~ INDICATION FOR STUDY/DIAGNOSIS: Afib/HF PROCEDURE: After informed consent was obtained, the patient received a stress dose of Lexiscan while undergoing continuous 12 lead ECG monitoring. The baseline heart rate was 110 bpm and jannet to a maximum of 121 bpm. The baseline blood pressure was 128/84 and jannet to a maximum of 148/80. The patient had no chest pain following the administration of Lexiscan. The baseline ECG revealed atrial fibrillation. Following administration of Lexiscan, there were no ST-T changes suggestive of ischemia. CONCLUSION: 1. Non-diagnostic Lexiscan ECG study. 2. Nuclear myocardial perfusion report to follow under a separate cover. Transcribed By: onelia 04/15/24 1525 Dictated By: Jayda Burgess MD 04/15/24 152 Signed By: 04/15/24 1527 [facility] Work Phone: Protein [Mass/volume] in Ser um or PlasmaOrdered By: Jersey Bess on 04-15-2024 Protein [Mass/Vol] Protein [Mass/volume ] in Serum or Plasma 6.4-8.9 [facility] Renal Function Panelon 04-15 Phosphate [Mass/Vol] 3.9 mg/dL Normal 2.5-4.5 [facility] Comment on above: Performed By: #### B RAUL GLEZ #### [address] Serum or plasma albumin/glob ulin mass ratioOrdered By: Jersey Bess on 04-15-2024 Albumin/Globulin [Mass ratio] Serum or plasma albumin/globulin mass ratio [facility] Basic Metabolic Panelon 03-24 Anion gap [Moles/Vol] 13.7 mmol/L Normal 6.0-15.0 [facility] Comment on above: Performed By: #### B RAUL GLEZ #### [address] Calcium [Mass/Vol] 8.8 mg/dL Normal 8.6-10.3 [facility] Comment on above: Performed By: #### B RAUL GLEZ #### [place] [address] [place] Chloride [Moles/Vol] 105 mmol/L Normal 98-107 [facility] Comment on above: Performed By: #### B MP, CBCNO #### [facility] [address] [place] [address] [place] CO2 [Moles/Vol] 23.2 mmol/L Normal 21.0-31.0 [facility] Comment on above: Performed By: #### B MP, CBCNO #### [facility] [address] [place] [address] [place] Creatinine [Mass/Vol] 2.30 mg/dL High 0.70-1.30 [facility] Comment on above: Performed By: #### B AMARIS, CBCNO #### [place] [address] [place] Creatinine Clr Calc Pharmacy 34.97 Normal [facility] Comment on above: Result Comment: PERF ORMED BY: [place] [address] PATHOLOGIST [employer] REPRESENTATIVE RADHA MANNING M.D. Performed By: #### B AMARIS, CBCNO #### [address] Estimated GFR 28.004 mL/Min Normal [facility] Comment on above: Performed By: #### B AMARIS, CBCNO #### [address] Glucose [Mass/Vol] 103 mg/dL High 70-100 [facility] Comment on above: Result Comment: [place] Glucose Reference Range is dependent on time and content of last meal. Glucose of more than 200 mg/dL in a nonstressed, ambulatory subject supports the diagnosis of Diabetes Mellitus. ADA recommended reference range Performed By: #### B MP, CBCNO #### [facility] [address] [place] [address] [place] Potassium [Moles/Vol] 3.9 mmol/L Normal 3.5-5.1 [facility] Comment on above: Performed By: #### B MP, CBCNO #### [facility] [address] [place] [address] [place] Sodium [Moles/Vol] 138 mmol/L Normal 136-145 [facility] Comment on above: Performed By: #### B MP, CBCNO #### [address] Urea nitrogen [Mass/Vol] 36 mg/dL High 7-25 [facility] Comment on above: Performed By: #### B MP, CBCNO #### [address] Hemogram CBC Without Diffon 04-14-2024 Erythrocyte distribution width (RBC) [Ratio] 14.1 % Normal 12.0-14.8 [facility] Comment on above: Performed By: #### B AMARIS, CBCNO #### [address] Hematocrit (Bld) [Volume fraction] 42.1 % Normal 38.8-50.0 [facility] Comment on above: Performed By: #### B AMARIS, CBCNO #### [address] Hemoglobin (Bld) [Mass/Vol] 14.6 g/dL Normal 13.0-17.0 [facility] Comment on above: Performed By: #### B AMARIS CBCNO #### [address] MCH (RBC) [Entitic mass] 30.3 pg Normal 27.5-35.2 [facility] Comment on above: Performed By: #### B MP, CBCNO #### [address] MCV (RBC) [Entitic vol] 87.8 fL Normal 83.5-101 [facility] Comment on above: Performed By: #### B MP, CBCNO #### [address] Mean Corpuscular HGB Conc 34.6 g/dL Normal 32.5-35.6 [facility] Comment on above: Performed By: #### B MP, CBCNO #### [address] Platelet mean volume (Bld) [Entitic vol] 7.7 fL Normal 6.6-10.1 [facility] Comment on above: Result Comment: PERF ORMED BY: [place] [address] PATHOLOGIST [employer] REPRESENTATIVE RADHA MANNING M.D. Performed By: #### B MP, CBCNO #### [address] Platelets (Bld) [#/Vol] 278 10*3/uL Normal 150-450 [facility] Comment on above: Performed By: #### B MP, CBCNO #### [address] RBC (Bld) [#/Vol] 4.80 10*6/uL Normal 3.90-5.60 [facility] Comment on above: Performed By: #### B MP, CBCNO #### [address] WBC (Bld) [#/Vol] 9.5 10*3/uL Normal 4.1-10.5 [facility] Comment on above: Performed By: #### B MP, CBCNO #### [address] Basophils Auto (Bld) [#/Vol] Ordered By: Obaydah Daromar on 04-13-2024 Basophils (Bld) [#/Vol] Automated basophil count 0.0-0.2 [facility] Basophils/100 WBC Auto (Bld) Ordered By: Obaydah Daromar on 04-13-2024 Basophils/100 WBC (Bld) Automated basophil % . [facility] Complete Blood Count Auto Di ffon 04-13-2024 Basophils (Bld) [#/Vol] 0.0 10*3/uL Normal 0.0-0.2 [facility] Comment on above: Result Comment: PERF ORMED BY: [place] [address] PATHOLOGIST [employer] REPRESENTATIVE RADHA MANNING M.D. Performed By: #### C UU, ADDONUAPLUS #### [address] Basophils/100 WBC (Bld) 0.4 % Normal . T felipe [facility] Comment on above: Performed By: #### C UU, ADDONUAPLUS #### [address] Eosinophils (Bld) [#/Vol] 0.6 10*3/uL High 0.0-0.45 [facility] Comment on above: Performed By: #### C UU, ADDONUAPLUS #### [address] Eosinophils/100 WBC (Bld) 6.7 % Normal . [facility] Comment on above: Performed By: #### C UU, ADDONUAPLUS #### [address] Erythrocyte distribution width (RBC) [Ratio] 14.2 % Normal 12.0-14.8 [facility] Comment on above: Performed By: #### C UU, ADDONUAPLUS #### [address] Hematocrit (Bld) [Volume fraction] 40.8 % Normal 38.8-50.0 [facility] Comment on above: Performed By: #### C UU, ADDONUAPLUS #### [address] Hemoglobin (Bld) [Mass/Vol] 14.3 g/dL Normal 13.0-17.0 [facility] Comment on above: Performed By: #### C UU, ADDONUAPLUS #### [place] [address] [place] Lymphocytes (Bld) [#/Vol] 1.6 10*3/uL Normal 1.00-4.8 [facility] Comment on above: Performed By: #### C UU, ADDONUAPLUS #### [place] [address] [place] Lymphocytes/100 WBC (Bld) 18.6 % Normal . [facility] Comment on above: Performed By: #### C UU ADDONUAPLUS #### [address] MCH (RBC) [Entitic mass] 30.2 pg Normal 27.5-35.2 [facility] Comment on above: Performed By: #### C UU ADDONUAPLUS #### [address] MCV (RBC) [Entitic vol] 86.4 fL Normal 83.5-101 [facility] Comment on above: Performed By: #### C UBarbara ADDONUAPLUS #### [address] Mean Corpuscular HGB Conc 35.0 g/dL Normal 32.5-35.6 [facility] Comment on above: Performed By: #### C UU ADDONUAPLUS #### [address] Monocytes (Bld) [#/Vol] 1.0 10*3/uL High 0.0-0.8 [facility] Comment on above: Performed By: #### C UBarbara ADDONUAPLUS #### [address] Monocytes/100 WBC (Bld) 11.0 % Normal . [facility] Comment on above: Performed By: #### C UU, ADDONUAPLUS #### [address] Neutrophils (Bld) [#/Vol] 5.5 10*3/uL Normal 1.8-7.7 [facility] Comment on above: Performed By: #### C UU, ADDONUAPLUS #### [address] Neutrophils/100 WBC (Bld) 63.3 % Normal . [facility] Comment on above: Performed By: #### C UU, ADDONUAPLUS #### [address] NRBC% 0.1 /100{WBC} Normal 0-0.5 [facility] Comment on above: Performed By: #### C UU, ADDONUAPLUS #### [address] Platelet mean volume (Bld) [Entitic vol] 7.9 fL Normal 6.6-10.1 [facility] Comment on above: Performed By: #### C UU, ADDONUAPLUS #### [address] Platelets (Bld) [#/Vol] 245 10*3/uL Normal 150-450 [facility] Comment on above: Performed By: #### C UU, ADDONUAPLUS #### [address] RBC (Bld) [#/Vol] 4.73 10*6/uL Normal 3.90-5.60 [facility] Comment on above: Performed By: #### C UU, ADDONUAPLUS #### [address] WBC (Bld) [#/Vol] 8.7 10*3/uL Normal 4.1-10.5 [facility] Comment on above: Performed By: #### C UU, ADDONUAPLUS #### [address] Comprehensive Metabolic Pane nazanin 04-13-2024 Albumin [Mass/Vol] 3.5 g/dL Normal 3.5-5.7 [facility] Comment on above: Performed By: #### C UU, ADDONUAPLUS #### [address] Albumin/Globulin [Mass ratio] 1.2 {ratio} Normal [facility] Comment on above: Performed By: #### C UU, ADDONUAPLUS #### [address] ALP [Catalytic activity/Vol] 44 U/L Normal 34-104 [facility] Comment on above: Performed By: #### C UU, ADDONUAPLUS #### [address] ALT [Catalytic activity/Vol] 18 U/L Normal 7-52 [facility] Comment on above: Performed By: #### C UU, ADDONUAPLUS #### [address] Anion gap [Moles/Vol] 13.9 mmol/L Normal 6.0-15.0 [facility] Comment on above: Performed By: #### C UU, ADDONUAPLUS #### [address] AST [Catalytic activity/Vol] 25 U/L Normal 13-39 [facility] Comment on above: Performed By: #### C UU, ADDONUAPLUS #### [address] Bilirubin [Mass/Vol] 0.6 mg/dL Normal 0.3-1.0 [facility] Comment on above: Performed By: #### C UU, ADDONUAPLUS #### [address] Calcium [Mass/Vol] 8.8 mg/dL Normal 8.6-10.3 [facility] Comment on above: Performed By: #### C UU, ADDONUAPLUS #### [place] [address] [place] Chloride [Moles/Vol] 104 mmol/L Normal 98-107 [facility] Comment on above: Performed By: #### C UU, ADDONUAPLUS #### [place] [address] [place] CO2 [Moles/Vol] 23.6 mmol/L Normal 21.0-31.0 [facility] Comment on above: Performed By: #### C UU, ADDONUAPLUS #### [place] [address] [place] Creatinine [Mass/Vol] 2.41 mg/dL High 0.70-1.30 [facility] Comment on above: Performed By: #### C UU, ADDONUAPLUS #### [place] [address] [place] Creatinine Clr Calc Pharmacy 33.55 Normal [facility] Comment on above: Result Comment: PERF ORMED BY: [place] [address] PATHOLOGIST [employer] SAL[employer] REPRESENTATIVE RADHA MANNING M.D. Performed By: #### C UU, ADDONUAPLUS #### [address] Estimated GFR 26.478 mL/Min Normal [facility] Comment on above: Performed By: #### C UU, ADDONUAPLUS #### [address] Globulin (S) [Mass/Vol] 2.9 g/dL Normal [facility] Comment on above: Performed By: #### C UU, ADDONUAPLUS #### [address] Glucose [Mass/Vol] 100 mg/dL Normal 70-100 [facility] Comment on above: Result Comment: [place] Glucose Reference Range is dependent on time and content of last meal. Glucose of more than 200 mg/dL in a nonstressed, ambulatory subject supports the diagnosis of Diabetes Mellitus. ADA recommended reference range Performed By: #### C UU, ADDONUAPLUS #### [address] Potassium [Moles/Vol] 3.5 mmol/L Normal 3.5-5.1 [facility] Comment on above: Performed By: #### C UU, ADDONUAPLUS #### [address] Protein [Mass/Vol] 6.4 g/dL Normal 6.4-8.9 [facility] Comment on above: Performed By: #### C UU, ADDONUAPLUS #### [address] [place] [address] [place] Sodium [Moles/Vol] 138 mmol/L Normal 136-145 [facility] Comment on above: Performed By: #### C VENU BUCHANANUAPLUS #### [facility] [address] Urea nitrogen [Mass/Vol] 39 mg/dL High 7-25 [facility] Comment on above: Performed By: #### C SHERWIN BUCHANANONUAPLUS #### [facility] [address] Eosinophils Auto (Bld) [#/Vo l]Ordered By: Obaydah Daromar on 04-13-2024 Eosinophils (Bld) [#/Vol] Automated eosinophil count High 0.0-0.45 [facility] Eosinophils/100 WBC Auto (Bl d)Ordered By: Obaydah Daromar on 04-13-2024 Eosinophils/100 WBC (Bld) Automated eosinophil % . [facility] Lymphocytes Auto (Bld) [#/Vo l]Ordered By: Obaydah Daromar on 04-13-2024 Lymphocytes (Bld) [#/Vol] Lymphocytes [#/volume] in Blood by Automated count 1.00-4.8 [facility] Lymphocytes/100 WBC Auto (Bl d)Ordered By: Obaydah Daromar on 04-13-2024 Lymphocytes/100 WBC (Bld) Lymphocytes/100 leukocytes in Blood by Automated count . [facility] Monocytes Auto (Bld) [#/Vol] Ordered By: Obaydah Daromar on 04-13-2024 Monocytes (Bld) [#/Vol] Automated blood monocyte count High 0.0-0.8 [facility] Monocytes/100 WBC Auto (Bld) Ordered By: Obaydah Daromar on 04-13-2024 Monocytes/100 WBC (Bld) Automated monocyte % . [facility] Neutrophils Auto (Bld) [#/Vo l]Ordered By: Obaydah Daromar on 04-13-2024 Neutrophils (Bld) [#/Vol] Neutrophils [#/volume] in Blood by Automated count 1.8-7.7 [facility] Neutrophils/100 WBC Auto (Bl d)Ordered By: Jersey Bess on 04-13-2024 Neutrophils/100 WBC (Bld) Automated neutrophil % . [facility] Nucleated erythrocytes [Pres ence] in Blood by Automated countOrdered By: Jersey Reyesr on 04-13-2024 Nucleated RBC Auto Ql (Bld) Nucleated erythrocytes [Presence] in Blood by Automated count 0-0.5 [facility] WBC Auto (Bld) [#/Vol]Ordere d By: Jersey Covarrubiasomar on 04-13-2024 WBC (Bld) [#/Vol] Leukocytes [#/volume ] in Blood by Automated count 4.1-10.5 [facility] Anti-Xa UF Heparinon 025 Anti-Xa UF Heparin 0.32 [IU]/mL Normal 0.30-0.70 [facility] Comment on above: Result Comment: Use the aPTT protocol when triglycerides are > 800 mg/dL, total bilirubin is > 20 mg/dL and/or patient has received a DOAC, Fondaparinux or LMWH within 72 hours AND baseline anti-Xa level is > 0.7 units/mL PERFORMED BY: [place] [address] PATHOLOGIST [employer] REPRESENTATIVE RADHA MANNING M.D. Performed By: #### C UBarbara, SHERWINONUAPLUS #### [address] Anti-Xa UF Heparin 0.23 [IU]/mL Low 0.30-0.70 [facility] Comment on above: Result Comment: Use the aPTT protocol when triglycerides are > 800 mg/dL, total bilirubin is > 20 mg/dL and/or patient has received a DOAC, Fondaparinux or LMWH within 72 hours AND baseline anti-Xa level is > 0.7 units/mL PERFORMED BY: [place] [address] PATHOLOGIST [employer] REPRESENTATIVE RADHA MANNING M.D. Performed By: #### C UU, ADDONUAPLUS #### [address] Anti-Xa UF Heparin 0.11 [IU]/mL Low 0.30-0.70 [facility] Comment on above: Result Comment: Use the aPTT protocol when triglycerides are > 800 mg/dL, total bilirubin is > 20 mg/dL and/or patient has received a DOAC, Fondaparinux or LMWH within 72 hours AND baseline anti-Xa level is > 0.7 units/mL PERFORMED BY: [place] [address] PATHOLOGIST [employer] SAL[employer] REPRESENTATIVE RADHA MANNING M.D. Performed By: #### C UU, ADDONUAPLUS #### [address] Appearance of UrineOrdered B y: Tobi Monroy on 04-12-2024 Appearance (U) Urine appearance Abnormal Clear [facility] Bacteria [Presence] in Urine by AutomatedOrdered By: Tobi Monroy on 04-12-2024 Bacteria Auto Ql (U) Bacteria [Presence] in Urine by Automated High None Seen [facility] Bilirubin Test strip Ql (U)O rdered By: Tobi Monroy on 04-12-2024 Bilirubin Ql (U) Bilirubin.total [Pre sence] in Urine by Test strip Negative [facility] Color Auto (U)Ordered By: Ab tim Monroy on 04-12-2024 Color (U) Color of Urine by Auto Abnormal [facility] Auto Di ffon 04-12-2024 Basophils (Bld) [#/Vol] 0.0 10*3/uL Normal 0.0-0.2 [facility] Comment on above: Result Comment: PERF ORMED BY: [place] [address] PATHOLOGIST [employer] SAL[employer] REPRESENTATIVE RADHA MANNING M.D. Performed By: #### C UU, ADDONUAPLUS #### [address] Basophils/100 WBC (Bld) 0.3 % Normal . [facility] Comment on above: Performed By: #### C UU, ADDONUAPLUS #### [address] Eosinophils (Bld) [#/Vol] 0.5 10*3/uL High 0.0-0.45 [facility] Comment on above: Performed By: #### C UU, ADDONUAPLUS #### [address] Eosinophils/100 WBC (Bld) 4.7 % Normal . [facility] Comment on above: Performed By: #### C UU, ADDONUAPLUS #### [address] Erythrocyte distribution width (RBC) [Ratio] 14.2 % Normal 12.0-14.8 [facility] Comment on above: Performed By: #### C UU, ADDONUAPLUS #### [address] Hematocrit (Bld) [Volume fraction] 39.4 % Normal 38.8-50.0 [facility] Comment on above: Performed By: #### C UU, ADDONUAPLUS #### [address] Hemoglobin (Bld) [Mass/Vol] 13.8 g/dL Normal 13.0-17.0 [facility] Comment on above: Performed By: #### C UU, ADDONUAPLUS #### [address] Lymphocytes (Bld) [#/Vol] 2.6 10*3/uL Normal 1.00-4.8 [facility] Comment on above: Performed By: #### C UU, ADDONUAPLUS #### [address] Lymphocytes/100 WBC (Bld) 23.6 % Normal . [facility] Comment on above: Performed By: #### C UU, ADDONUAPLUS #### [address] MCH (RBC) [Entitic mass] 30.6 pg Normal 27.5-35.2 [facility] Comment on above: Performed By: #### C UU, ADDONUAPLUS #### [address] MCV (RBC) [Entitic vol] 87.6 fL Normal 83.5-101 [facility] Comment on above: Performed By: #### C UU, ADDONUAPLUS #### [address] Mean Corpuscular HGB Conc 34.9 g/dL Normal 32.5-35.6 [facility] Comment on above: Performed By: #### C UU, ADDONUAPLUS #### [address] Monocytes (Bld) [#/Vol] 1.2 10*3/uL High 0.0-0.8 [facility] Comment on above: Performed By: #### C UU, ADDONUAPLUS #### [address] Monocytes/100 WBC (Bld) 11.0 % Normal . [facility] Comment on above: Performed By: #### C UU, ADDONUAPLUS #### [address] Neutrophils (Bld) [#/Vol] 6.6 10*3/uL Normal 1.8-7.7 [facility] Comment on above: Performed By: #### C UU, ADDONUAPLUS #### [address] Neutrophils/100 WBC (Bld) 60.4 % Normal . [facility] Comment on above: Performed By: #### C UU, ADDONUAPLUS #### [address] NRBC% 0.1 /100{WBC} Normal 0-0.5 [facility] Comment on above: Performed By: #### C UU, ADDONUAPLUS #### [address] Platelet mean volume (Bld) [Entitic vol] 8.0 fL Normal 6.6-10.1 [facility] Comment on above: Performed By: #### C UU, ADDONUAPLUS #### [address] Platelets (Bld) [#/Vol] 265 10*3/uL Normal 150-450 [facility] Comment on above: Performed By: #### C UU, ADDONUAPLUS #### [address] RBC (Bld) [#/Vol] 4.50 10*6/uL Normal 3.90-5.60 [facility] Comment on above: Performed By: #### C UU, ADDONUAPLUS #### [address] WBC (Bld) [#/Vol] 11.0 10*3/uL High 4.1-10.5 [facility] Comment on above: Performed By: #### C UU ADDONUAPLUS #### [address] Comprehensive Metabolic Pane nazanin 04-12-2024 Albumin [Mass/Vol] 3.2 g/dL Low 3.5-5.7 [facility] Comment on above: Performed By: #### C UU, ADDONUAPLUS #### [address] Albumin/Globulin [Mass ratio] 1.5 {ratio} Normal [facility] Comment on above: Performed By: #### C UU, ADDONUAPLUS #### [address] ALP [Catalytic activity/Vol] 42 U/L Normal 34-104 [facility] Comment on above: Performed By: #### C UU, ADDONUAPLUS #### [address] ALT [Catalytic activity/Vol] 13 U/L Normal 7-52 [facility] Comment on above: Performed By: #### C UU, ADDONUAPLUS #### [address] Anion gap [Moles/Vol] 14.4 mmol/L Normal 6.0-15.0 [facility] Comment on above: Performed By: #### C UU, ADDONUAPLUS #### [address] AST [Catalytic activity/Vol] 18 U/L Normal 13-39 [facility] Comment on above: Performed By: #### C UU ADDONUAPLUS #### [address] Bilirubin [Mass/Vol] 0.8 mg/dL Normal 0.3-1.0 [facility] Comment on above: Performed By: #### C UU ADDONUAPLUS #### [address] Calcium [Mass/Vol] 8.4 mg/dL Low 8.6-10.3 [facility] Comment on above: Performed By: #### C UU ADDONUAPLUS #### [address] Chloride [Moles/Vol] 103 mmol/L Normal 98-107 [facility] Comment on above: Performed By: #### C UU, ADDONUAPLUS #### [address] CO2 [Moles/Vol] 24.3 mmol/L Normal 21.0-31.0 [facility] Comment on above: Performed By: #### C UU, ADDONUAPLUS #### [address] Creatinine [Mass/Vol] 2.62 mg/dL High 0.70-1.30 [facility] Comment on above: Performed By: #### C UU, ADDONUAPLUS #### [address] Creatinine Clr Calc Pharmacy 27.61 Normal [facility] Comment on above: Result Comment: PERF ORMED BY: [place] [address] PATHOLOGIST [employer] SAL[employer] REPRESENTATIVE RADHA MANNING M.D. Performed By: #### C UU, ADDONUAPLUS #### [address] Estimated GFR 23.951 mL/Min Normal [facility] Comment on above: Performed By: #### C UU, ADDONUAPLUS #### [address] Globulin (S) [Mass/Vol] 2.1 g/dL Normal [facility] Comment on above: Performed By: #### C UU, ADDONUAPLUS #### [address] Glucose [Mass/Vol] 92 mg/dL Normal 70-100 [facility] Comment on above: Result Comment: [facility] Glucose Reference Range is dependent on time and content of last meal. Glucose of more than 200 mg/dL in a nonstressed, ambulatory subject supports the diagnosis of Diabetes Mellitus. ADA recommended reference range Performed By: #### C UU, ADDONUAPLUS #### [address] Potassium [Moles/Vol] 3.7 mmol/L Normal 3.5-5.1 [facility] Comment on above: Performed By: #### C UU, ADDONUAPLUS #### [address] Protein [Mass/Vol] 5.3 g/dL Low 6.4-8.9 [facility] Comment on above: Performed By: #### C UU, ADDONUAPLUS #### [address] Sodium [Moles/Vol] 138 mmol/L Normal 136-145 [facility] Comment on above: Performed By: #### C UU, ADDONUAPLUS #### [facility] [address] [place] [address] Urea nitrogen [Mass/Vol] 40 mg/dL High 7-25 [facility] Comment on above: Performed By: #### C UU, ADDONUAPLUS #### [place] [address] [place] Dipstick and Microscopicon 0 04-12-2024 Appearance (U) Turbid Critically abnormal Clear [facility] Comment on above: Order Comment: Name Collection Type:: Ruiz Catheter Performed By: #### C UU, ADDONUAPLUS #### [place] [address] [place] Bacteria,Urine 4+ High None Seen [facility] Comment on above: Order Comment: Name Collection Type:: Ruiz Catheter Performed By: #### C UU, ADDONUAPLUS #### [place] [address] [place] Bilirubin,Urine Negative Normal Negative [facility] Comment on above: Order Comment: Name Collection Type:: Ruiz Catheter Performed By: #### C UU, ADDONUAPLUS #### [place] [address] [place] Budding Yeast,Urine 2+ High None Seen [facility] Comment on above: Order Comment: Name Collection Type:: Ruiz Catheter Result Comment: PERF ORMED BY: [place] [address] PATHOLOGIST [employer] SAL[employer] REPRESENTATIVE RADHA MANNING M.D. Performed By: #### C UU, ADDONUAPLUS #### [place] [address] [place] Color (U) [place] Critically abnormal Yellow [facility] Comment on above: Order Comment: Name Collection Type:: Ruiz Catheter Performed By: #### C UU, ADDONUAPLUS #### [facility] [address] [place] [address] [place] Glucose Ql (U) Normal Normal Normal [facility] Comment on above: Order Comment: Name Collection Type:: Ruiz Catheter Performed By: #### C UU, ADDONUAPLUS #### [facility] [address] [place] [address] Hyaline Casts,Urine 20-49 High 0-8 [facility] Comment on above: Order Comment: Name Collection Type:: Ruiz Catheter Performed By: #### C UU, ADDONUAPLUS #### [address] Ketones Ql (U) Trace High Negative [facility] Comment on above: Order Comment: Name Collection Type:: Ruiz Catheter Performed By: #### C UU, ADDONUAPLUS #### [address] Leukocyte esterase Test strip Ql (U) 4+ High Negative [facility] Comment on above: Order Comment: Name Collection Type:: Ruiz Catheter Performed By: #### C UU, ADDONUAPLUS #### [address] Mucus,Urine 3+ Critically abnormal [facility] Comment on above: Order Comment: Name Collection Type:: Ruiz Catheter Performed By: #### C UU, ADDONUAPLUS #### [place] [address] [place] Nitrite,Urine Negative Normal Negative [facility] Comment on above: Order Comment: Name Collection Type:: Ruiz Catheter Performed By: #### C UU, ADDONUAPLUS #### [address] Occult Blood,Urine 3+ High Negative [facility] Comment on above: Order Comment: Name Collection Type:: Ruiz Catheter Result Comment: PERF ORMED BY: [place] [address] PATHOLOGIST [employer] REPRESENTATIVE RADHA MANNING M.D. Performed By: #### C UU, ADDONUAPLUS #### [address] pH (U) 5.5 [pH] Normal 5.0-9.0 [facility] Comment on above: Order Comment: Name Collection Type:: Ruiz Catheter Performed By: #### C UU, ADDONUAPLUS #### [address] Protein (U) [Mass/Vol] 50 mg/dL High Negative [facility] Comment on above: Order Comment: Name Collection Type:: Ruiz Catheter Performed By: #### C UU, ADDONUAPLUS #### [address] RBC,Urine 50-100 High 0-4 [facility] Comment on above: Order Comment: Name Collection Type:: Ruiz Catheter Performed By: #### C UU, ADDONUAPLUS #### [address] Specificy [place],Urine 1.011 Normal 1.00 1-1.03 0 [facility] Comment on above: Order Comment: Name Collection Type:: Ruiz Catheter Performed By: #### C UU, ADDONUAPLUS #### [address] Squamous Epithelial Cell,Urine 3-4 High 0-2 [facility] Comment on above: Order Comment: Name Collection Type:: Ruiz Catheter Performed By: #### C UU, ADDONUAPLUS #### [address] Urobilinogen,Urine Normal Normal Normal [facility] Comment on above: Order Comment: Name Collection Type:: Ruiz Catheter Performed By: #### C UU, ADDONUAPLUS #### [address] WBC CLUMP, Urine Many High None Seen [facility] Comment on above: Order Comment: Name Collection Type:: Ruiz Catheter Performed By: #### C UU, ADDONUAPLUS #### [address] WBC,Urine Innumerable High 0-4 [facility] Comment on above: Order Comment: Name Collection Type:: Ruiz Catheter Performed By: #### C UU, ADDONUAPLUS #### [address] [place] [address] [facility] Epithelial cells.squamous [# /area] in Urine sediment by Automated countOrdered By: Tobi Monroy on 04-12-2024 Epithelial cells.squamous Auto (Urine sed) [#/Area] Epithelial cells.squamous [#/area] in Urine sediment by Automated count High 0-2 [facility] Erythrocytes [#/area] in Uri ne sediment by Automated countOrdered By: Tobi Monroy on 04-12-2024 RBC Auto (Urine sed) [#/Area] Erythrocytes [#/area] in Urine sediment by Automated count High 0-4 [facility] Glucose [Mass/volume] in Uri ne by Test stripOrdered By: Tobi Monroy on 04-12-2024 Glucose Test strip (U) [Mass/Vol] Glucose [Mass/volume] in Urine by Test strip Normal [facility] Hemoglobin Test strip Ql (U) Ordered By: Tobi Monroy on 04-12-2024 Hemoglobin Ql (U) Hemoglobin [Presence ] in Urine by Test strip [facility] Negative [facility] Heparin anti-Xa unfractionat edOrdered By: Keron Gutierres on 04-12-2024 Heparin unfractionated Chromogenic method Qn (PPP) Heparin anti-Xa unfractionated 0.30-0.70 [facility] Comment on above: Use the aPTT protoco l when triglycerides are > 800 mg/dL,total bilirubin is > 20 mg/dL and/or patient has received aDOAC, Fondaparinux or LMWH within 72 hours AND baselineanti-Xa level is > 0.7 units/mL Hyaline casts [#/area] in Ur ine sediment by Automated countOrdered By: Tobi Monroy on 04-12-2024 Hyaline casts Auto (Urine sed) [#/Area] Hyaline casts [#/area] in Urine sediment by Automated count [facility] 0-8 [facility] Ketones Test strip Ql (U)Ord ered By: Tobi Monroy on 04-12-2024 Ketones Ql (U) Ketones [Presence] i n Urine by Test strip [facility] Negative [facility] Leukocyte clumps [Presence] in Urine by AutomatedOrdered By: Tobi Monroy on 04-12-2024 Leukocyte clumps Auto Ql (U) Leukocyte clumps [Presence] in Urine by Automated High None Seen [facility] Leukocyte esterase [Presence ] in Urine by Test stripOrdered By: Tobi Monroy on 04-12-2024 Leukocyte esterase Test strip Ql (U) Leukocyte esterase [Presence] in Urine by Test strip High Negative [facility] Leukocytes [#/area] in Urine sediment by Automated countOrdered By: Tobi Monroy on 04-12-2024 WBC Auto (Urine sed) [#/Area] Leukocytes [#/area] in Urine sediment by Automated count High 0-4 [facility] Mucus [Presence] in Urine by AutomatedOrdered By: Tobi Monroy on 04-12-2024 Mucus Auto Ql (U) Mucus [Presence] in Urine by Automated Abnormal [facility] Nitrite Test strip Ql (U)Ord ered By: Tobi Monroy on 04-12-2024 Nitrite Ql (U) Nitrite [Presence] i n Urine by Test strip Negative [facility] Protein Creat Ratio Ur Rando mon 04-12-2024 Creatinine, Urine (Random) 102.00 mg/dL Normal [facility] Comment on above: Result Comment: No r eference range established Performed By: #### C UU, SHERWINONLEENAPLUS #### [facility] [address] [place] [address] Protein (U) [Mass/Vol] 44 mg/dL High 0-9 [facility] Comment on above: Performed By: #### C UU, ADDONUAPLUS #### [facility] [address] [place] [address] Urine Protein/Creatinine Ratio 431 mg/g{Cre} High 0-200 [facility] Comment on above: Result Comment: PERF ORMED BY: [place] [address] PATHOLOGIST [employer] SAL[employer] REPRESENTATIVE RADHA MANNING M.D. Performed By: #### C UU, ADDONUAPLUS #### [facility] [address] [place] [address] Protein Test strip (U) [Mass /Vol]Ordered By: Tobi Monroy on 04-12-2024 Protein (U) [Mass/Vol] Protein [Mass/vol ume] in Urine by Test strip High Negative [facility] Protein [Mass/volume] in Uri neOrdered By: Tobi Monroy on 04-12-2024 Protein (U) [Mass/Vol] Protein [Mass/vol ume] in Urine High 0-9 [facility] Specific gravity Test strip (U) [Rel density]Ordered By: Tobi Monroy on 04-12-2024 Specific gravity (U) [Rel density] Specific gravity of Urine by Test strip 1.001-1.03 0 [facility] US renal BIon 04-12-2024 US renal BI [facility] [place] [address] Ultrasound Report Signed Patient: Corwin Muller MR#: [id number] : 1945 Acct:[id number] Age/Sex: 79 / M ADM Date: 04/10/24 Loc: Room: [address] [place] [address] Type: ADM IN Attending Dr: Jersey Bess MD Ordering Provider: Tobi Monroy MD Date of Service: 04/12/24 US/US renal BI: YOJANA Copies to: MD Jersey Patrick MD US renal BI 04/12/2024 8:52 AM SIGNS AND SYMPTOMS: YOJANA COMPARISON: None. FINDINGS: Right kidney measures 11.78 cm x 4.67 cm x 5.43 cm . No hydronephrosis or mass. Left kidney measures 12.3 cm x 5.48 cm x 5.62 cm . No hydronephrosis or mass. The urinary bladder is morphologically normal. No free fluid is seen in the pelvis. The bladder is decompressed and contains a Ruiz catheter. US/US renal BI IMPRESSION: No mass or hydronephrosis. Impression dictated by: Jones Pedro M.D.04/12/2024 9:34 PM Dictation Location: [place] [address] Tech: Lacey Archer Transcribed By: [facility] 04/12/24 Dictated By: Jones Pedro II, MD 04/12/242132 Signed By: 04/12/242133 Normal [facility] Urine Cultureon 04-12-2024 Bacteria identified Cx Nom (U) ORGANISM: Staphylococcus epidermidis (O:STAEPI) [place] Count >100,000 Aerobic JONATHAN Charge (PCMIC38) SUSCEPTIBILITY ORGANISM: O:STAEPI ANTIBIOTIC INTERPRETATION JONATHAN Ciprofloxacin S <1 Daptomycin S <0.5 Levofloxacin S <1 Linezolid S <1 Nitrofurantoin S <32 Oxacillin R >2 Penicillin R 0.5 Tetracycline S <4 Trimethoprim/Sulfamethoxaz ole S <0.5 Vancomycin S 1 S = SUSCEPTIBLE I = INTERMEDIATE R = RESISTANT BLANK = DATA NOT AVAILABLE, OR DRUG NOT ADVISABLE OR TESTED R* = RESISTANCE DUE TO EXTENDED SPECTRUM BETA-LACTAMASES ESBL = EXTENDED SPECTRUM BETA-LACTAMASE TFG = THYMIDINE-DEPENDENT STRAIN LATRICE = BETA-LACTAMASE POSITIVE IB = INDUCIBLE BETA-LACTAMASE. APPEARS IN PLACE OF 'S' WITH SPECIES KNOWN TO POSSESS INDUCIBLE BETA-LACTAMASES. POTENTIALLY THEY MAY BECOME RESISTANT TO ALL B-LACTAM DRUGS. PERFORMED BY: [place] [address] PATHOLOGIST [employer] SAL[employer] REPRESENTATIVE RADHA MANNING M.D. Normal [facility] Comment on above: Performed By: #### C TINO BUCHANAN #### [address] Urine cultureOrdered By: Qing reyes Eliana on 04-12-2024 Bacteria identified Cx Nom (U) Abnormal [facility] Urine protein/creatinine rat ioOrdered By: Tobi Eliana on 04-12-2024 Protein/Creatinine (U) [Ratio] Urine protein/creatinine ratio High 0-200 [facility] Urobilinogen Test strip (U) [Mass/Vol]Ordered By: Tobi Eliana on 04-12-2024 Urobilinogen (U) [Mass/Vol] Urobilinogen [Mass/volume] in Urine by Test strip Normal [facility] Yeast.budding [Presence] in Urine by Computer assisted methodOrdered By: Tobi Monroy on 04-12-2024 Yeast.budding Computer assisted Ql (U) Yeast.budding [Presence] in Urine by Computer assisted method High None Seen [facility] pH Test strip (U)Ordered By: Tobi Monroy on 04-12-2024 pH (U) pH of Urine by Test strip 5.0-9.0 [facility] Anti-Xa UF Heparinon 025 Anti-Xa UF Heparin 0.24 [IU]/mL Low 0.30-0.70 [facility] Comment on above: Result Comment: Use the aPTT protocol when triglycerides are > 800 mg/dL, total bilirubin is > 20 mg/dL and/or patient has received a DOAC, Fondaparinux or LMWH within 72 hours AND baseline anti-Xa level is > 0.7 units/mL PERFORMED BY: [place] [address] PATHOLOGIST [employer] SAL[employer] REPRESENTATIVE RADHA MANNING M.D. Performed By: #### U FHEP #### [facility] [address] [place] [address] Anti-Xa UF Heparin 0.56 [IU]/mL Normal 0.30-0.70 [facility] Comment on above: Result Comment: Use the aPTT protocol when triglycerides are > 800 mg/dL, total bilirubin is > 20 mg/dL and/or patient has received a DOAC, Fondaparinux or LMWH within 72 hours AND baseline anti-Xa level is > 0.7 units/mL PERFORMED BY: [place] [address] PATHOLOGIST [employer] SAL[employer] REPRESENTATIVE RADHA MANNING M.D. Performed By: #### C UU, ADDONUAPLUS #### [address] Complete Blood Count Auto Di ffon 04-11-2024 Basophils (Bld) [#/Vol] 0.0 10*3/uL Normal 0.0-0.2 [facility] Comment on above: Result Comment: PERF ORMED BY: [place] [address] PATHOLOGIST [employer] REPRESENTATIVE RADHA MANNING M.D. Performed By: #### C UU, ADDONUAPLUS #### [address] Basophils/100 WBC (Bld) 0.4 % Normal . T felipe [facility] Comment on above: Performed By: #### C UU, ADDONUAPLUS #### [address] Eosinophils (Bld) [#/Vol] 0.4 10*3/uL Normal 0.0-0.45 [facility] Comment on above: Performed By: #### C UU, ADDONUAPLUS #### [address] Eosinophils/100 WBC (Bld) 4.3 % Normal . [facility] Comment on above: Performed By: #### C UU, ADDONUAPLUS #### [address] Erythrocyte distribution width (RBC) [Ratio] 14.3 % Normal 12.0-14.8 [facility] Comment on above: Performed By: #### C UU, ADDONUAPLUS #### [address] Hematocrit (Bld) [Volume fraction] 42.1 % Normal 38.8-50.0 [facility] Comment on above: Performed By: #### C UU, ADDONUAPLUS #### [address] Hemoglobin (Bld) [Mass/Vol] 14.6 g/dL Normal 13.0-17.0 [facility] Comment on above: Performed By: #### C UU, ADDONUAPLUS #### [address] Lymphocytes (Bld) [#/Vol] 2.0 10*3/uL Normal 1.00-4.8 [facility] Comment on above: Performed By: #### C UU, ADDONUAPLUS #### [address] Lymphocytes/100 WBC (Bld) 21.4 % Normal . [facility] Comment on above: Performed By: #### C UU, ADDONUAPLUS #### [address] MCH (RBC) [Entitic mass] 30.6 pg Normal 27.5-35.2 [facility] Comment on above: Performed By: #### C UU, ADDONUAPLUS #### [address] MCV (RBC) [Entitic vol] 88.1 fL Normal 83.5-101 [facility] Comment on above: Performed By: #### C UU, ADDONUAPLUS #### [address] Mean Corpuscular HGB Conc 34.7 g/dL Normal 32.5-35.6 [facility] Comment on above: Performed By: #### C UU, ADDONUAPLUS #### [address] Monocytes (Bld) [#/Vol] 1.0 10*3/uL High 0.0-0.8 [facility] Comment on above: Performed By: #### C UU, ADDONUAPLUS #### [address] Monocytes/100 WBC (Bld) 10.9 % Normal . [facility] Comment on above: Performed By: #### C UU, ADDONUAPLUS #### [address] Neutrophils (Bld) [#/Vol] 5.9 10*3/uL Normal 1.8-7.7 [facility] Comment on above: Performed By: #### C UU, ADDONUAPLUS #### [place] [address] [place] Neutrophils/100 WBC (Bld) 63.0 % Normal . [facility] Comment on above: Performed By: #### C UU, ADDONUAPLUS #### [address] NRBC% 0.1 /100{WBC} Normal 0-0.5 [facility] Comment on above: Performed By: #### C UU, ADDONUAPLUS #### [address] Platelet mean volume (Bld) [Entitic vol] 8.1 fL Normal 6.6-10.1 [facility] Comment on above: Performed By: #### C UU, ADDONUAPLUS #### [address] Platelets (Bld) [#/Vol] 255 10*3/uL Normal 150-450 [facility] Comment on above: Performed By: #### C UBarbara, ADDONUAPLUS #### [address] RBC (Bld) [#/Vol] 4.78 10*6/uL Normal 3.90-5.60 [facility] Comment on above: Performed By: #### C UU, ADDONUAPLUS #### [address] WBC (Bld) [#/Vol] 9.4 10*3/uL Normal 4.1-10.5 [facility] Comment on above: Performed By: #### C UU, ADDONUAPLUS #### [address] Comprehensive Metabolic Pane nazanin 04-11-2024 Albumin [Mass/Vol] 3.6 g/dL Normal 3.5-5.7 [facility] Comment on above: Performed By: #### C UU, ADDONUAPLUS #### [address] Albumin/Globulin [Mass ratio] 1.3 {ratio} Normal [facility] Comment on above: Performed By: #### C UU, ADDONUAPLUS #### [facility] [address] ALP [Catalytic activity/Vol] 50 U/L Normal 34-104 [facility] Comment on above: Performed By: #### C UU, ADDONUAPLUS #### [address] ALT [Catalytic activity/Vol] 14 U/L Normal 7-52 [facility] Comment on above: Performed By: #### C UU, ADDONUAPLUS #### [address] Anion gap [Moles/Vol] 12.5 mmol/L Normal 6.0-15.0 [facility] Comment on above: Performed By: #### C UU, ADDONUAPLUS #### [address] AST [Catalytic activity/Vol] 19 U/L Normal 13-39 [facility] Comment on above: Performed By: #### C UU, ADDONUAPLUS #### [place] [address] [place] Bilirubin [Mass/Vol] 1.0 mg/dL Normal 0.3-1.0 [facility] Comment on above: Performed By: #### C UU, ADDONUAPLUS #### [place] [address] [place] Calcium [Mass/Vol] 8.7 mg/dL Normal 8.6-10.3 [facility] Comment on above: Performed By: #### C UU, ADDONUAPLUS #### [place] [address] [place] Chloride [Moles/Vol] 104 mmol/L Normal 98-107 [facility] Comment on above: Performed By: #### C UU, ADDONUAPLUS #### [facility] [address] [place] [address] [place] CO2 [Moles/Vol] 25.6 mmol/L Normal 21.0-31.0 [facility] Comment on above: Performed By: #### C UU, ADDONUAPLUS #### [address] Creatinine [Mass/Vol] 2.34 mg/dL High 0.70-1.30 [facility] Comment on above: Performed By: #### C UU, ADDONUAPLUS #### [address] Creatinine Clr Calc Pharmacy 30.91 Normal [facility] Comment on above: Result Comment: PERF ORMED BY: [place] [address] PATHOLOGIST [employer] SAL[employer] REPRESENTATIVE RADHA MANNING M.D. Performed By: #### C UU, ADDONUAPLUS #### [address] Estimated GFR 27.431 mL/Min Normal [facility] Comment on above: Performed By: #### C UU, ADDONUAPLUS #### [address] Globulin (S) [Mass/Vol] 2.8 g/dL Normal T [facility] Comment on above: Performed By: #### C UU, ADDONUAPLUS #### [address] Glucose [Mass/Vol] 95 mg/dL Normal 70-100 [facility] Comment on above: Result Comment: [place] Glucose Reference Range is dependent on time and content of last meal. Glucose of more than 200 mg/dL in a nonstressed, ambulatory subject supports the diagnosis of Diabetes Mellitus. ADA recommended reference range Performed By: #### C UU, ADDONUAPLUS #### [address] Potassium [Moles/Vol] 3.1 mmol/L Low 3.5-5.1 [facility] Comment on above: Performed By: #### C UU, ADDONUAPLUS #### [address] Protein [Mass/Vol] 6.4 g/dL Normal 6.4-8.9 [facility] Comment on above: Performed By: #### C UU, ADDONUAPLUS #### [address] Sodium [Moles/Vol] 139 mmol/L Normal 136-145 [facility] Comment on above: Performed By: #### C UU, ADDONUAPLUS #### [facility] [address] [place] [address] Urea nitrogen [Mass/Vol] 30 mg/dL High 7-25 [facility] Comment on above: Performed By: #### C UU, ADDONUAPLUS #### [address] ECG 12 lead ECGon 04-11-2024 ECG 12 lead ECG [facility] [place] [address] [place] [address] Electrocardiograph Report Signed Patient: Corwin Muller MR#: [id number] : 1945 Acct:[id number] Age/Sex: 79 / M ADM Date: 04/10/24 Loc: Room: [address] [place] [address] Type: ADM IN Attending Dr: Jersey Bess MD Ordering Provider: Jersey Bess MD Date of Service: 04/11/24 ECG/ECG 12 lead ECG: pt evalulation Copies to: Test Reason : Blood Pressure : */* mmHG Vent. Rate : 137 BPM Atrial Rate : * BPM P-R Int : * ms QRS Dur : 100 ms QT Int : 348 ms P-R-T Axes : * -6 46 degrees QTcB Int : 525 ms Atrial fibrillation with rapid ventricular response Nonspecific ST abnormality Abnormal ECG When compared with ECG of 10-Apr-2024 11:59, (Unconfirmed) Atrial fibrillation has replaced Sinus rhythm Confirmed by Bubba Jessica ([id number]) on 04/11/2024 2:15:02 PM Referred By: Electronically Signed By: Bubba Jessica Transcribed By: MUS Signed By Bubba Jessica MD 04/11/24 1415 Normal [facility] Anti-Xa UF Heparinon 025 Anti-Xa UF Heparin <0.04 Low 0.30-0.70 [facility] Comment on above: Result Comment: Use the aPTT protocol when triglycerides are > 800 mg/dL, total bilirubin is > 20 mg/dL and/or patient has received a DOAC, Fondaparinux or LMWH within 72 hours AND baseline anti-Xa level is > 0.7 units/mL PERFORMED BY: [place] [address] PATHOLOGIST [employer] REPRESENTATIVE RADHA MANNING M.D. Performed By: #### P P, UFHEP, HS TROP #### [address] Basic Metabolic Panelon 03-23 Anion gap [Moles/Vol] 12.0 mmol/L Normal 6.0-15.0 e [facility] Comment on above: Performed By: #### C UU, ADDONUAPLUS #### [address] Calcium [Mass/Vol] 9.2 mg/dL Normal 8.6-10.3 [facility] Comment on above: Performed By: #### C UU, ADDONUAPLUS #### [address] Chloride [Moles/Vol] 108 mmol/L High 98-107 [facility] Comment on above: Performed By: #### C UU, ADDONUAPLUS #### [address] CO2 [Moles/Vol] 22.6 mmol/L Normal 21.0-31.0 [facility] Comment on above: Performed By: #### C UU, ADDONUAPLUS #### [address] Creatinine [Mass/Vol] 2.36 mg/dL High 0.70-1.30 [facility] Comment on above: Performed By: #### C UU, ADDONUAPLUS #### [address] [place] [address] [place] Creatinine Clr Calc Pharmacy 30.65 Normal [facility] Comment on above: Performed By: #### C UU, ADDONUAPLUS #### [address] Estimated GFR 27.152 mL/Min Normal [facility] Comment on above: Performed By: #### C UU, ADDONUAPLUS #### [address] Glucose [Mass/Vol] 109 mg/dL High 70-100 [facility] Comment on above: Result Comment: [facility] Glucose Reference Range is dependent on time and content of last meal. Glucose of more than 200 mg/dL in a nonstressed, ambulatory subject supports the diagnosis of Diabetes Mellitus. ADA recommended reference range Performed By: #### C UU, ADDONUAPLUS #### [address] Potassium [Moles/Vol] 3.6 mmol/L Normal 3.5-5.1 [facility] Comment on above: Performed By: #### C UU, ADDONUAPLUS #### [address] Sodium [Moles/Vol] 139 mmol/L Normal 136-145 [facility] Comment on above: Performed By: #### C UU, ADDONUAPLUS #### [address] Urea nitrogen [Mass/Vol] 28 mg/dL High 7-25 [facility] Comment on above: Performed By: #### C UU, ADDONUAPLUS #### [place] [address] [place] Cholesterol [Mass/volume] in Serum or PlasmaOrdered By: Holly Weinberg on 04-10-2024 Cholesterol [Mass/Vol] Cholesterol [Mass /volume] in Serum or Plasma 140-200 [facility] Comment on above: Chol less than 200 m g/dl low riskChol 201-239 mg/dl borderline riskChol 240 mg/dl and greater high risk Cholesterol in HDL [Mass/vol ume] in Serum or PlasmaOrdered By: Holly Weinberg on 04-10-2024 Cholesterol in HDL [Mass/Vol] Serum or plasma high density lipoprotein (HDL) cholesterol measurement 23 [facility] Comment on above: HDL CHOL ATP-III CLA SSIFICATION Cardiovascular RiskHDL > or equal to 60 mg/dL LOWHDL < 40 mg/dL HIGH Cholesterol in LDL Calc [Mas s/Vol]Ordered By: Holly Weinberg on 04-10-2024 Cholesterol in LDL [Mass/Vol] Cholesterol in LDL [Mass/volume] in Serum or Plasma by calculation High 0-100 [facility] Comment on above: LDL ATP III CLASSIFI CATIONLDL less than 100 mg/dL OptimalLDL 100-129 mg/dL Near or above optimalLDL 130-159 mg/dL Borderline highLDL 160-189 mg/dL HighLDL greater than 189 mg/dL Very high Cholesterol in VLDL Calc [Ma ss/Vol]Ordered By: Holly Weinberg on 04-10-2024 Cholesterol in VLDL [Mass/Vol] Cholesterol in VLDL [Mass/volume] in Serum or Plasma by calculation [facility] Coagulation Profileon 2024 aPTT Coag (Bld) [Time] 28.8 s Normal 25.1-36.5 [facility] Comment on above: Result Comment: A he matocrit value greater than 55% may lead to inaccurate results in coagulation testing. Patients having hematocrit values >55% require a special collection tube for coagulation studies. Please contact the laboratory at [phone] for redraw instructions. Performed By: #### P P, UFHEP, HS TROP #### [address] INR Coag (PPP) [Relative time] 1.2 {INR} Normal [facility] Comment on above: Result Comment: INR Therapeutic Range A) Pre- and Peroperative OAT started two weeks before surgery. NOT HIP SURGERY: 1.5 - 2.5 HIP SURGERY: 2 - 3 B) Primary and secondary prevention of venous THROMBOSIS: 2 - 3 C) Active venous thrombosis, pulmonary embolism and prevention of recurrent venous thrombosis: 2 - 3 D) Prevention of arterial thromboembolism including patients with mechanical heart valves: 3 - 4.5 Performed By: #### P P, UFHEP, HS TROP #### [address] PT Coag (PPP) [Time] 13.2 s High 9.0-12.9 [facility] Comment on above: Result Comment: A matocrit value greater than 55% may lead to inaccurate results in coagulation testing. Patients having hematocrit values >55% require a special collection tube for coagulation studies. Please contact the laboratory at [phone] for redraw instructions. Performed By: #### P P, UFHEP, HS TROP #### [address] Complete Blood Count Auto Di ffon 04-10-2024 Basophils (Bld) [#/Vol] 0.1 10*3/uL Normal 0.0-0.2 [facility] Comment on above: Result Comment: PERF ORMED BY: [place] [address] PATHOLOGIST [employer] REPRESENTATIVE RADHA MANNING M.D. Performed By: #### C UU, ADDONUAPLUS #### [address] Basophils/100 WBC (Bld) 0.7 % Normal . T [facility] Comment on above: Performed By: #### C UU, ADDONUAPLUS #### [address] Eosinophils (Bld) [#/Vol] 0.3 10*3/uL Normal 0.0-0.45 [facility] Comment on above: Performed By: #### C UU, ADDONUAPLUS #### [address] Eosinophils/100 WBC (Bld) 2.4 % Normal . [facility] Comment on above: Performed By: #### C UU, ADDONUAPLUS #### [address] Erythrocyte distribution width (RBC) [Ratio] 14.3 % Normal 12.0-14.8 [facility] Comment on above: Performed By: #### C UU, ADDONUAPLUS #### [address] Hematocrit (Bld) [Volume fraction] 44.8 % Normal 38.8-50.0 [facility] Comment on above: Performed By: #### C UU, ADDONUAPLUS #### [address] Hemoglobin (Bld) [Mass/Vol] 15.1 g/dL Normal 13.0-17.0 [facility] Comment on above: Performed By: #### C UU, ADDONUAPLUS #### [address] Lymphocytes (Bld) [#/Vol] 2.0 10*3/uL Normal 1.00-4.8 [facility] Comment on above: Performed By: #### C UU, ADDONUAPLUS #### [address] Lymphocytes/100 WBC (Bld) 17.3 % Normal . [facility] Comment on above: Performed By: #### C UU, ADDONUAPLUS #### [address] MCH (RBC) [Entitic mass] 30.0 pg Normal 27.5-35.2 [facility] Comment on above: Performed By: #### C UU, ADDONUAPLUS #### [address] MCV (RBC) [Entitic vol] 88.7 fL Normal 83.5-101 T [facility] Comment on above: Performed By: #### C UU, ADDONUAPLUS #### [address] Mean Corpuscular HGB Conc 33.8 g/dL Normal 32.5-35.6 [facility] Comment on above: Performed By: #### C UU, ADDONUAPLUS #### [address] Monocytes (Bld) [#/Vol] 1.1 10*3/uL High 0.0-0.8 [facility] Comment on above: Performed By: #### C UBarbara, ADDONUAPLUS #### [address] Monocytes/100 WBC (Bld) 10.0 % Normal . T [facility] Comment on above: Performed By: #### C UBarbara, ADDONUAPLUS #### [address] Neutrophils (Bld) [#/Vol] 7.9 10*3/uL High 1.8-7.7 [facility] Comment on above: Performed By: #### C UBarbara ADDONUAPLUS #### [address] Neutrophils/100 WBC (Bld) 69.6 % Normal . [facility] Comment on above: Performed By: #### C UBarbara ADDONUAPLUS #### [address] NRBC% 0.1 /100{WBC} Normal 0-0.5 [facility] Comment on above: Performed By: #### C UBarbara ADDONUAPLUS #### [address] Platelet mean volume (Bld) [Entitic vol] 8.3 fL Normal 6.6-10.1 [facility] Comment on above: Performed By: #### C UBarbara ADDONUAPLUS #### [place] [address] [place] Platelets (Bld) [#/Vol] 252 10*3/uL Normal 150-450 [facility] Comment on above: Performed By: #### C UU, ADDONUAPLUS #### [place] [address] [place] RBC (Bld) [#/Vol] 5.05 10*6/uL Normal 3.90-5.60 [facility] Comment on above: Performed By: #### C UU ADDONUAPLUS #### [facility] [address] [place] [address] WBC (Bld) [#/Vol] 11.3 10*3/uL High 4.1-10.5 [facility] Comment on above: Performed By: #### C TINO BUCHANAN #### [address] ECG 12 lead ECGon 04-10-2024 ECG 12 lead ECG [facility] [place] [address] Electrocardiograph Report Signed Patient: Corwin Muller MR#: [id number] : 1945 Acct:[id number] Age/Sex: 79 / M ADM Date: 04/10/24 Loc: Room: [address] [place] [address] Type: ADM IN Attending Dr: Jersey Bess MD Ordering Provider: Jersey Bess MD Date of Service: 04/10/24 ECG/ECG 12 lead ECG: pt evalulation Copies to: Test Reason : Blood Pressure : 121/75 mmHG Vent. Rate : 99 BPM Atrial Rate : 99 BPM P-R Int : 248 ms QRS Dur : 92 ms QT Int : 372 ms P-R-T Axes : 89 -3 34 degrees QTcB Int : 477 ms Sinus rhythm with 1st degree AV block with premature atrial complexes Otherwise normal ECG When compared with ECG of 10-Apr-2024 06:34, Sinus rhythm has replaced Atrial fibrillation ST no longer depressed in Inferior leads Nonspecific T wave abnormality no longer evident in Lateral leads Confirmed by Bubba Jessica ([id number]) on 04/11/2024 2:09:58 PM Referred By: Electronically Signed By: Bubba Jessica Transcribed By: MUS Signed By Bubba Jessica MD 04/11/24 1410 Normal [facility] ECG 12 lead ECG [facility] [place] [address] Electrocardiograph Report Signed Patient: Corwin Muller MR#: [id number] : 1945 Acct:[id number] Age/Sex: 79 / M ADM Date: 04/10/24 Loc: Room: [address] [place] [address] Type: ADM IN Attending Dr: Jersey Bess MD Ordering Provider: Holly Weinberg APRN Date of Service: 04/10/24 ECG/ECG 12 lead ECG: afib rvr, elevated troponin Copies to: Test Reason : Blood Pressure : */* mmHG Vent. Rate : 115 BPM Atrial Rate : * BPM P-R Int : * ms QRS Dur : 88 ms QT Int : 342 ms P-R-T Axes : * -27 42 degrees QTcB Int : 473 ms Atrial fibrillation with rapid ventricular response Septal infarct (cited on or before 10-Apr-2024) Abnormal ECG When compared with ECG of 10-Apr-2024 02:10, (Unconfirmed) Previous ECG has undetermined rhythm, needs review Confirmed by Bubba Jessica ([id number]) on 04/10/2024 2:56:03 PM Referred By: Electronically Signed By: Bubba Jessica Transcribed By: MUS Signed By Bubba Jessica MD 04/10/24 1456 Normal [facility] ECG 12 lead ECG [facility] [place] [address] Electrocardiograph Report Signed Patient: Corwin Muller MR#: [id number] : 1945 Acct:[id number] Age/Sex: 79 / M ADM Date: 04/10/24 Loc: Room: [address] [place] [address] Type: ADM IN Attending Dr: Jersey Bess MD Ordering Provider: Jersey Bess MD Date of Service: 04/10/24 ECG/ECG 12 lead ECG: resp distress Copies to: Test Reason : Blood Pressure : */* mmHG Vent. Rate : 88 BPM Atrial Rate : 82 BPM P-R Int : * ms QRS Dur : 88 ms QT Int : 394 ms P-R-T Axes : * -9 -8 degrees QTcB Int : 476 ms Normal sinus rhythm with sinus arrhythmia with 1st degree AV block Cannot rule out Septal infarct , age undetermined Confirmed by Bubba Jessica ([id number]) on 04/10/2024 3:54:01 PM Referred By: Electronically Signed By: Bubba Jessica Transcribed By: MUS Signed By Bubba Jessica MD 04/10/24 1554 Normal [facility] echo transthoracicon [facility] echo transthoracic [facility] Main [place] [address] [place], [place] [id number] Echocardiogram Signed Patient: Corwin Muller MR#: [id number] : 1945 Acct:[id number] Age/Sex: 79 / M ADM Date: 04/10/24 Loc: Room: [address] [place] [address] Type: ADM IN Attending Dr: Jersey Bess MD Ordering Provider: Holly Weinberg APRN Date of Service: 04/10/24 [facility] echo transthoracic: chf, nstemi Copies to: MD Holly Ledesma, [employer] Height: 76 in Weight: 228 lb Performed By: Angeles Welch RDCS BSA: 2.3 m2 BP: 105/68 mmHg HR: 85 Reason For Study: chf, nstemi History: Tachycardia. CKD. HTN. HLD. Family history: Father-Aortic Aneurysm. Interpretation Summary Ejection Fraction = 35-40%. There is moderate global hypokinesis of the left ventricle. The left ventricle is mildly dilated. Mild concentric left ventricular hypertrophy. There is mild mitral regurgitation. There is no comparison study available. Procedure/Quality: A two-dimensional transthoracic echocardiogram with color flow, Doppler and injection of contrast agent Definity was performed. The study was technically suboptimal in quality due to poor acoustic windows . Left Ventricle: Mild concentric left ventricular hypertrophy. The left ventricle is mildly dilated. Ejection Fraction = 35-40%. Indeterminate diastolic function. There is moderate global hypokinesis of the left ventricle. Left Atrium: The left atrium appears normal in size. Right Atrium: The right atrium is not well visualized. Right Ventricle: The right ventricle is not well visualized. The right ventricle is grossly normal size. Aortic Valve: The aortic valve is normal in structure. No hemodynamically significant valvular aortic stenosis. No aortic regurgitation is present. Mitral Valve: The mitral valve is normal in structure. No significant mitral valve stenosis. There is mild mitral regurgitation. Tricuspid Valve: The tricuspid valve is normal in structure. No tricuspid regurgitation. Pulmonic Valve: The pulmonic valve is not well visualized. No significant pulmonic regurgitation. Arteries: Mild aortic root dilatation. Mildly dilated ascending aorta. Pericardium/Pleura: No pericardial effusion seen. IVC/Hepatic Veins: The inferior vena cava is normal in size, with a normal collapsibility index. Measurements with Normals IVSd: 1.2 cm (0.7-1.1 cm)LVIDd: 4.8 cm(3.7-5.4 cm) LVPWd: 1.3 cm (0.7-1.1 cm)LVIDs: 3.9 cm(2.3-3.6 cm) Ao root diam: 4.1 cm (2.0-3.6 cm) asc Aorta Diam: 4.1 cm(2.1-3.4cm) Doppler with Normals LV V1 max: 71.8 cm/sec(0.7-1.7m/s)MV E max sara: 92.1 cm/sec(0.8-1.3m/s) MMode/2D Measurements Calculations TAPSE: 2.1 cm FS: 18.8 % Ao root area: LVOT diam: 2.0 cm RV S Sara: EDV(Teich): 13.2 cm2 LVOT area: 3.1 cm2 12.6 cm/sec 107.5 ml ESV(Teich): 65.9 ml EF(Teich): 38.7 % __ LVLd ap4: 9.8 cm SV(MOD-sp4): LAV(MOD-sp4): LA A2 area: 17.6 cm2 EDV(MOD-sp4): 74.0 ml 53.4 ml 183.0 ml LAV(MOD-sp2): LA A4 area: 20.3 cm2 LVLs ap4: 9.1 cm 46.4 ml LA length (vol): ESV(MOD-sp4): 6.3 cm 109.0 ml LA vol: 48.2 ml EF(MOD-sp4): 40.4 % LA vol index: 20.6 ml/m2 Doppler Measurements Calculations MV dec time: MV V2 max: E/E' lat: 9.4 MV dec slope: 0.22 sec 108.0 cm/sec E/E' med: 12.7 MV max P.0 cm/sec2 82.0 mmHg MV V2 mean: 63.9 cm/sec MV mean P.0 mmHg MV V2 VTI: 31.2 cm MVA(VTI): 1.3 cm2 __ Ao V2 max: LV V1 max PG: MR max sara: RAP systole: 3.0 mmHg 92.7 cm/sec 2.1 mmHg 453.0 cm/sec Ao max PG: LV V1 mean PG: MR max P.4 mmHg 1.0 mmHg 82.1 mmHg Ao mean PG: LV V1 mean: 2.0 mmHg 55.3 cm/sec Ao V2 mean: LV V1 VTI: 13.1 cm 68.2 cm/sec Ao V2 VTI: 14.7 cm DESTINY(I,D): 2.8 cm2 DESTINY(V,D): 2.4 cm2 Transcribed By: CANDACE Performed At: 04/10/24 0821 Signed By: Bubba Jessica MD 04/10/24 1414 Normal [facility] INR in Platelet poor plasma by Coagulation assayOrdered By: Kurtis Langley on 04-10-2024 INR Coag (PPP) [Relative time] INR in Platelet poor plasma by Coagulation assay [facility] Comment on above: INR Therapeutic Rang e A) Pre- and Peroperative OAT started two weeks before surgery. NOT HIP SURGERY: 1.5 - 2.5 HIP SURGERY: 2 - 3B) Primary and secondary prevention of venous THROMBOSIS: 2 - 3C) Active venous thrombosis, pulmonary embolismand prevention of recurrent venous thrombosis: 2 - 3D) Prevention of arterial thromboembolismincluding patients with mechanical heart valves: 3 - 4.5 Lipid Panelon 04-10-2024 Cholesterol [Mass/Vol] 168 mg/dL Normal 140-200 [facility] Comment on above: Result Comment: Chol less than 200 mg/dl low risk Chol 201-239 mg/dl borderline risk Chol 240 mg/dl and greater high risk Performed By: #### P P, UFHEP, HS TROP #### [address] Cholesterol in HDL [Mass/Vol] 26 mg/dL Normal 23-92 [facility] Comment on above: Result Comment: HDL CHOL ATP-III CLASSIFICATION Cardiovascular Risk HDL > or equal to 60 mg/dL LOW HDL < 40 mg/dL HIGH Performed By: #### P P, UFHEP, HS TROP #### [facility] [address] Cholesterol.total/Rowan sterol in HDL [Mass ratio] 6.5 {ratio} Normal <5.0 [facility] Comment on above: Result Comment: PERF ORMED BY: [place] [address] PATHOLOGIST [employer]QUIP[employer] SALES REPRESENTATIVE RADHA MANNING M.D. Performed By: #### P P, UFHEP, HS TROP #### [address] LDL Cholesterol,Calculated 120 mg/dL High 0-100 [facility] Comment on above: Result Comment: LDL ATP III CLASSIFICATION LDL less than 100 mg/dL Optimal LDL 100-129 mg/dL Near or above optimal LDL 130-159 mg/dL Borderline high LDL 160-189 mg/dL High LDL greater than 189 mg/dL Very high Performed By: #### P P, UFHEP, HS TROP #### [place] [address] [place] Triglyceride w/Reflex 108 mg/dL Normal 0-149 [facility] Comment on above: Result Comment: TRIG ATP III CLASSIFICATION TRIG less than 150 mg/dL Normal TRIG 150-199 mg/dL Borderline high TRIG 200-500 mg/dL High TRIG greater than 500 mg/dL Very high Standard traceable to the Center for Disease Conrtrol and Prevention (CDC) test method. Performed By: #### P P, UFHEP, HS TROP #### [address] VLDL CHOLESTEROL 21 mg/dL Normal [facility] Comment on above: Performed By: #### P P, UFHEP, HS TROP #### [facility] [address] [place] [id number] [place] Magnesiumon 04-10-2024 Magnesium [Mass/Vol] 2.0 mg/dL Normal 1.9-2.7 [facility] Comment on above: Performed By: #### P P, UFHEP, HS TROP #### [facility] [address] Prothrombin time (PT)Ordered By: Kurtis Langley on 04-10-2024 PT Coag (PPP) [Time] Prothrombin time (PT) High 9.0- 12.9 [facility] Comment on above: A hematocrit value g reater than 55% may lead to inaccurate results in coagulation testing. Patients having hematocrit values >55% require a special collection tube for coagulation studies. Please contact the laboratory at [phone] for redraw instructions. Serum or plasma total choles terol/high density lipoprotein (HDL) cholesterol mass ratOrdered By: Holly Weinberg on 04-10-2024 Cholesterol.total/Rowan sterol in HDL [Mass ratio] Serum or plasma total cholesterol/high density lipoprotein (HDL) cholesterol mass rat <5.0 [facility] Triglyceride [Mass/volume] i n Serum or PlasmaOrdered By: Holly Weinberg on 04-10-2024 Triglyceride [Mass/Vol] Triglyceride [Ma ss/volume] in Serum or Plasma 0-149 [facility] Comment on above: TRIG ATP III CLASSIF ICATIONTRIG less than 150 mg/dL NormalTRIG 150-199 mg/dL Borderline highTRIG 200-500 mg/dL High TRIG greater than 500 mg/dL Very highStandard traceable to the Center for Disease Conrtrol and Prevention (CDC) test method. Troponin I High Sensitivityo n 04-10-2024 Troponin I High Sensitivity 639 Off scale high 0-20 [facility] Comment on above: Result Comment: Crit ical Result : Called to and read back by: GI CRUM at: 04/10/2024 08:50:14 by:[id number] The Troponin units of report have been changed to meet the Chest Pain Accreditation requirement, element EC5.M1l2. Troponin units are changed from pg/ml to ng/L. Also, the decimal is removed and results are in whole numbers. PERFORMED BY: [place] [phone] PATHOLOGIST W[employer] E[employer] SALES REPRESENTATIVE RADHA MANNING M.D. Performed By: #### P P, UFHEP, HS TROP #### [facility] [address] [place] [address] [facility] Troponin I High Sensitivity 815 Off scale high 0-20 [facility] Comment on above: Result Comment: Crit ical Result : Called to and read back by: ETHEL MILLARD at: 04/10/2024 04:08:18 by:YASSINE The Troponin units of report have been changed to meet the Chest Pain Accreditation requirement, element EC5.M1l2. Troponin units are changed from pg/ml to ng/L. Also, the decimal is removed and results are in whole numbers. PERFORMED BY: [address] [place] [phone] PATHOLOGIST W[employer]ING EQUIPMENT SALES REPRESENTATIVE RADHA MANNING M.D. Performed By: #### P P, UFHEP, HS TROP #### [place] [id number] [facility] Troponin I.cardiac [Mass/vol ume] in Serum or Plasma by Detection limit <= 0.01 ng/Ordered By: Holly Weinberg on 04-10-2024 Troponin I.cardiac DL <= 0.01 ng/mL [Mass/Vol] Troponin I.cardiac [Mass/volume] in Serum or Plasma by Detection limit <= 0.01 ng/ Critically high 0-20 [facility] Comment on above: Critical Result : Ca lled to and read back by: GI CRUM at: 04/10/2024 08:50:14 by:[id number] Troponin units of report have been changed to meet the Chest Pain Accreditation requirement, element EC5.M1l2. Troponin units are changed from pg/ml to ng/L. Also, the decimal is removed and results are in whole numbers. X-ray reportOrdered By: Jose A Jenkins on 04-10-2024 Study report [facility] Main [address] [address] XRay Report Signed Patient: Corwin Muller MR#: [id number] : 1945 Acct:[id number] Age/Sex: 79 / M ADM Date: 5 Loc: 4C Room: [address] [place] [address] Type: ADM IN Attending Dr: Jersey Bess MD Copies to: DO Jersey Johansen MD~ Ordering Provider: Ranjan Lomas DO Date of Service: 04/10/24 XR/XR chest 1V portable: sob SINGLE VIEW CHEST CLINICAL HISTORY: Shortness breath COMPARISON: 04/09/2024 FINDINGS: Cardiomegaly. Progression of perihilar and bibasilar airspace disease. Small effusions suspect. no pneumothorax. XR/XR chest 1V portable IMPRESSION: PROGRESSION OF THE PERIHILAR AND BIBASILAR AIRSPACE DISEASE. Impression dictated by: Maximilian Jenkins M.D.04/10/2024 8:47 AM Dictation Location: [place] [address] Transcribed By: [facility] 04/10/24 0847 Dictated By: Maximilian Jenkins MD 04/10/2445 Signed By: 04/10/2447 [facility] Work Phone: XR chest 1V portableon 04-10 XR chest 1V portable [facility] Main [address] [address] XRay Report Signed Patient: Corwin Muller MR#: [id number] : 1945 Acct:[id number] Age/Sex: 79 / M ADM Date: 04/10/24 Loc: 4C Room: [address] [place] [address] Type: ADM IN Attending Dr: Jersey Bess MD Copies to: DO Jersey Johansen MD Ordering Provider: Ranjan Lomas DO Date of Service: 04/10/24 XR/XR chest 1V portable: sob SINGLE VIEW CHEST CLINICAL HISTORY: Shortness breath COMPARISON: 04/09/2024 FINDINGS: Cardiomegaly. Progression of perihilar and bibasilar airspace disease. Small effusions suspect. no pneumothorax. XR/XR chest 1V portable IMPRESSION: PROGRESSION OF THE PERIHILAR AND BIBASILAR AIRSPACE DISEASE. Impression dictated by: Maximilian Jenkins M.D.04/10/2024 8:47 AM Dictation Location: [place] [address] Transcribed By: [facility] 04/10/2447 Dictated By: Maximilian Jenkins MD 04/10/2445 Signed By: 04/10/2447 Normal [facility] aPTT in Platelet poor plasma by Coagulation assayOrdered By: Kurtis Langley on 04-10-2024 aPTT Coag (PPP) [Time] Activated partial thromboplastin time (aPTT) in platelet poor plasma by coagulation a 25.1-36.5 [facility] Comment on above: A hematocrit value g reater than 55% may lead to inaccurate results in coagulation testing. Patients having hematocrit values >55% require a special collection tube for coagulation studies. Please contact the laboratory at [phone] for redraw instructions. Activated partial thrombopla stin time (aPTT) in platelet poor plasma by coagulation aon 04-09-2024 aPTT Coag (PPP) [Time] Activated partial thromboplastin time (aPTT) in platelet poor plasma by coagulation a 22.3-36.2 [facility] Basophils Auto (Bld) [#/Vol] on 04-09-2024 Basophils (Bld) [#/Vol] Automated basophil count 0.0-0.1 [facility] Basophils/100 WBC Auto (Bld) on 04-09-2024 Basophils/100 WBC (Bld) Automated basophil % 0. 2-2.0 [facility] Eosinophils/100 WBC Auto (Bl d)on 04-09-2024 Eosinophils/100 WBC (Bld) Automated eosinophil % 0.9-7.0 [facility] Erythrocyte distribution wid th Auto (RBC) [Ratio]on 04-09-2024 Erythrocyte distribution width (RBC) [Ratio] Erythrocyte distribution width [Ratio] by Automated count 11.0-15.0 [facility] Estimated glomerular filtrat ion rate (GFR) non- Americanon 04-09-2024 GFR/1.73 sq M.predicted among non-blacks MDRD (S/P/Bld) [Vol rate/Area] Estimated glomerular filtration rate (GFR) non- Low >=60 mL/min/1.7 3m 2 [facility] Hematocrit Auto (Bld) [Volum e fraction]on 04-09-2024 Hematocrit (Bld) [Volume fraction] Hematocrit [Volume Fraction] of Blood by Automated count 42.0-54.0 [facility] Hemoglobin [Mass/volume] in Bloodon 04-09-2024 Hemoglobin (Bld) [Mass/Vol] Hemoglobin [Mass/volume] in Blood 14.0-18.0 [facility] INR in Platelet poor plasma by Coagulation assayon 04-09-2024 INR Coag (PPP) [Relative time] INR in Platelet poor plasma by Coagulation assay [facility] Comment on above: DESIRED INR:2.0-3.0 CONDITIONS NOT LISTED BELOW2.5-3.5 FOR PROSTHETIC HEART VALVE REPLACEMENT2.5-3.5 RECURRENT THROMBOSIS Laboratory - Chemistry and C hemistry - challengeon 04-09-2024 Calcium [Mass/Vol] 9.4 mg/dL 8.5-10.1 [facility] Chloride [Moles/Vol] 103 mmol/L 98-107 [facility] CO2 [Moles/Vol] 24.6 mmol/L 21.0-32.0 [facility] Creatinine [Mass/Vol] 2.62 mg/dL High 0.70-1.30 [facility] GFR/1.73 sq M.predicted MDRD (S/P/Bld) [Vol rate/Area] 29 mL/min/{1.73_m2} Low >=60 mL/min/1.7 3m 2 [facility] Glucose [Mass/Vol] 108 mg/dL High 74-106 [facility] Magnesium [Mass/Vol] 2.0 mg/dL 1.8-2.4 [facility] Natriuretic peptide B (Bld) [Mass/Vol] 8857.0 pg/mL Critically high <=1800.0 [facility] Comment on above: RESULTS CALLED TO Dr Nathaniel Parker Potassium [Moles/Vol] 3.7 mmol/L 3.5-5.1 [facility] Sodium [Moles/Vol] 137 mmol/L 136-145 [facility] Urea nitrogen [Mass/Vol] 29.0 mg/dL High 7.0-18.0 [facility] Urea nitrogen/Creatinine [Mass ratio] 11.1 mg/mg [facility] Laboratory - Hematology and Cell countson 04-09-2024 Immature granulocytes/100 WBC (Bld) 0.4 % 0.0-0.5 [facility] Leukocytes [#/volume] correc ariana for nucleated erythrocytes in Blood by Automated counon 04-09-2024 WBC corrected for nucl RBC Auto (Bld) [#/Vol] Leukocytes [#/volume] corrected for nucleated erythrocytes in Blood by Automated coun 4.0-11.0 [facility] Lymphocytes Auto (Bld) [#/Vo l]on 04-09-2024 Lymphocytes (Bld) [#/Vol] Lymphocytes [#/volume] in Blood by Automated count 1.2-3.8 [facility] Lymphocytes/100 WBC Auto (Bl d)on 04-09-2024 Lymphocytes/100 WBC (Bld) Lymphocytes/100 leukocytes in Blood by Automated count 20.5-60.0 [facility] MCH Auto (RBC) [Entitic mass ]on 04-09-2024 MCH (RBC) [Entitic mass] MCH [Entitic mass] by Automated count 25.9-34.0 [facility] MCHC Auto (RBC) [Mass/Vol]on 04-09-2024 MCHC (RBC) [Mass/Vol] MCHC [Mass/volume] by Automated count 29.9-35.2 [facility] MCV Auto (RBC) [Entitic vol] on 04-09-2024 MCV (RBC) [Entitic vol] MCV [Entitic vol ume] by Automated count 80.0-94.0 [facility] Monocytes Auto (Bld) [#/Vol] on 04-09-2024 Monocytes (Bld) [#/Vol] Automated blood monocyte count High 0.3-0.8 [facility] Monocytes/100 WBC Auto (Bld) on 04-09-2024 Monocytes/100 WBC (Bld) Automated monocyte % 1. 7-12.0 [facility] Neutrophils Auto (Bld) [#/Vo l]on 04-09-2024 Neutrophils (Bld) [#/Vol] Neutrophils [#/volume] in Blood by Automated count 1.4-6.5 [facility] Neutrophils/100 WBC Auto (Bl d)on 04-09-2024 Neutrophils/100 WBC (Bld) Automated neutrophil % 43.0-75.0 [facility] No Panel Informationon 04-09 Troponin I High Sensitivity 896.5 pg/mL Critically high 4.0-76.1 [facility] Comment on above: RESULTS CALLED TO Dr Nathaniel Bush-OFF POINTS HAVE BEEN ESTABLISHED BASED ON THE FOURTHUNIVERSAL DEFINITION OF MYOCARDIAL INFARCTION. THE UPPERREFERENCE LIMIT (URL) OF TROPONIN, DEFINED THE 99THPERCENTILE OF cTnI DISTRIBUTION IN A REFERENCE POPULATION,HAS BEEN CONFIRMED THE DECISION THRESHOLD FOR MIDIAGNOSIS.99TH PERCENTILE = 76.2 PG/MLNOTE: HIGH-SENSITIVITY TROPONIN ASSAY IS NOT INTENDED TO BEUSED IN ISOLATION BUT SHOULD BE INTERPRETED IN CONJUNCTIONWITH OTHER DIAGNOSTIC AND CLINICAL INFORMATION. Eosinophils # (Auto) 0.4 10 3/uL 0.0-0.7 [facility] Immature Granulocyte # (Auto) 0.04 10 3/uL High 0.00-0.03 [facility] Platelet mean volume Auto (B ld) [Entitic vol]on 04-09-2024 Platelet mean volume (Bld) [Entitic vol] Platelet mean volume [Entitic volume] in Blood by Automated count 9.5-13.5 [facility] Platelets Auto (Bld) [#/Vol] on 04-09-2024 Platelets (Bld) [#/Vol] Platelets [#/vol ume] in Blood by Automated count 150-450 [facility] Prothrombin time (PT)on 03-23 PT Coag (PPP) [Time] Prothrombin time (PT) 9.0- 11.6 [facility] RBC Auto (Bld) [#/Vol]on RBC (Bld) [#/Vol] Erythrocytes [#/volu me] in Blood by Automated count 4.70-6.10 [facility] Serum or plasma anion gap de terminationon 04-09-2024 Anion gap [Moles/Vol] Serum or plasma an ion gap determination [facility] CBC AUTO DIFFon 12-03-2021 BASO # 0.0 103/ul Normal 0.0-0.1 [facility] Comment on above: Performed By: #### C BC #### [facility] [address] [place] [address] Dr. Ludin Parra Basophils/100 WBC (Bld) 0.6 % Normal 0.2-2.0 [facility] Comment on above: Performed By: #### C BC #### [facility] [address] [place] [address] Dr. Ludin Parra EO # 0.2 103/ul Normal 0.0-0.7 [facility] Comment on above: Performed By: #### C BC #### [facility] [address] [place] [address] Dr. Ludin Parra Eosinophils/100 WBC (Bld) 3.1 % Normal 0.9-7.0 [facility] Comment on above: Performed By: #### C BC #### [facility] [address] [place] [address] Dr. Ludin Parra Erythrocyte distribution width (RBC) [Ratio] 13.1 % Normal 11.0-15.0 [facility] Comment on above: Performed By: #### C BC #### [facility] [address] [place] [address] Dr. Ludin Parra Hematocrit (Bld) [Volume fraction] 47.2 % Normal 42.0-54.0 [facility] Comment on above: Performed By: #### C BC #### [facility] [address] [place] [address] Dr. Ludin Parra Hemoglobin (Bld) [Mass/Vol] 15.8 g/dL Normal 14.0-18.0 [facility] Comment on above: Performed By: #### C BC #### [facility] [address] [place] [address] Dr. Ludin Parra IG # 0.03 10e3/ul Normal 0.00-0.03 [facility] Comment on above: Performed By: #### C BC #### [facility] [address] [place] [address] Dr. Ludin Parra IG % 0.4 % Normal 0.0-0.5 [facility] Comment on above: Performed By: #### C BC #### [facility] [address] [place] [address] Dr. Ludin Parra LYMPH # 1.6 103/ul Normal 1.2-3.8 [facility] Comment on above: Performed By: #### C BC #### [facility] [address] [place] [address] Dr. Ludin Parra Lymphocytes/100 WBC (Bld) 22.6 % Normal 20.5-60.0 [facility] Comment on above: Performed By: #### C BC #### [facility] [address] [place] [address] Dr. Ludin Parra MANUAL DIFF REQ NO Normal [facility] Comment on above: Performed By: #### C BC #### [facility] [address] [place] [address] Dr. Ludin Parra MCH (RBC) [Entitic mass] 29.6 pg Normal 25.9-34.0 [facility] Comment on above: Performed By: #### C BC #### [facility] [address] [place] [address] Dr. Ludin Parra MCHC (RBC) [Mass/Vol] 33.5 g/dL Normal 29.9-35.2 [facility] Comment on above: Performed By: #### C BC #### [facility] [address] [place] [address] Dr. Ludin Parra MCV (RBC) [Entitic vol] 88.6 fL Normal 80.0-94.0 [facility] Comment on above: Performed By: #### C BC #### [facility] [address] [place] [address] Dr. Ludin Parra MONO # 0.5 103/ul Normal 0.3-0.8 [facility] Comment on above: Performed By: #### C BC #### [facility] [address] [address] [address] Ludin Parra Monocytes/100 WBC (Bld) 7.5 % Normal 1.7-12.0 [facility] Comment on above: Performed By: #### C BC #### [facility] [address] [address] [address] Ludin Parra NEUT # 4.7 103/ul Normal 1.4-6.5 [facility] Comment on above: Performed By: #### C BC #### [facility] [address] [address] [address] Ludin Parra Neutrophils/100 WBC (Bld) 65.8 % Normal 43.0-75.0 [facility] Comment on above: Performed By: #### C BC #### [facility] [address] [place] [address] Dr. Ludin Parra Platelet mean volume (Bld) [Entitic vol] 9.0 fL Critically low 9.5-13.5 [facility] Comment on above: Performed By: #### C BC #### [facility] [address] [place] [address] Dr. Ludin Parra PLT 199 103/ul Normal 150-450 [facility] Comment on above: Performed By: #### C BC #### [facility] [address] [place] [address] Dr. Ludin Parra RBC 5.33 106/ul Normal 4.70-6.10 [facility] Comment on above: Performed By: #### C BC #### [facility] [address] [place] [address] Dr. Ludin Parra WBC 7.1 103/ul Normal 4.0-11.0 [facility] Comment on above: Performed By: #### C BC #### [facility] [address] [place] [address] Dr. Ludin Parra PROF CHEM 8 (BAS METB)on Anion gap [Moles/Vol] 9.3 mmol/L Normal [facility] Comment on above: Performed By: #### B MP #### [facility] [address] [address] [address] Ludin Parra Calcium [Mass/Vol] 8.9 mg/dL Normal 8.5-10.1 [facility] Comment on above: Performed By: #### B MP #### [facility] [address] [address] [address] Ludin Parra Chloride [Moles/Vol] 106 mmol/L Normal 98-107 [facility] Comment on above: Performed By: #### B MP #### [facility] [address] [address] [address] Ludin Parra CO2 [Moles/Vol] 29.7 mmol/L Normal 21.0-32.0 [facility] Comment on above: Performed By: #### B MP #### [facility] [address] [place] [address] Dr. Ludin Parra Creatinine [Mass/Vol] 1.83 mg/dL Critically high 0.70-1.30 [facility] Comment on above: Performed By: #### B MP #### [facility] [address] [address] [address] Ludin Parra EGFR-AF SWISS 44 mL/min/1.73m2 Critically low >=60 [facility] Comment on above: Performed By: #### B MP #### [facility] [address] [address] [address] Ludin Parra EGFR-NON AF SWISS 36 mL/min/1.73m2 Critically low >=60 [facility] Comment on above: Performed By: #### B MP #### [facility] [address] [address] [address] Ludin Parra Glucose [Mass/Vol] 85 mg/dL Normal 74-106 [facility] Comment on above: Performed By: #### B MP #### [facility] [address] [address] [address] Ludin Parra Potassium [Moles/Vol] 4.0 mmol/L Normal 3.5-5.1 [facility] Comment on above: Performed By: #### B MP #### [facility] [address] [address] [address] Ludin Parra Sodium [Moles/Vol] 141 mmol/L Normal 136-145 [facility] Comment on above: Performed By: #### B MP #### [facility] [address] [place], [place] [address] Dr. Ludin Parra Urea nitrogen [Mass/Vol] 25.0 mg/dL Critically high 7.0-18.0 [facility] Comment on above: Performed By: #### B MP #### [facility] [address] [place], [place] [address] Dr. Ludin Parra Urea nitrogen/Creatinine [Mass ratio] 13.7 mg/mg Normal [facility] Comment on above: Performed By: #### B MP #### [facility] [address] [address] [address] Ludin Parra Vital Signs Date Time Vital Sign Value Performing Clinician Facility 04-18-2024 11:50-0500 Diastolic blood pressure 63 mm[Hg] Ranjan Ball DO Work Phone: [facility] 04-18-2024 11:50-0500 Heart rate 61 /min Ranjan Ball DO Work Phone: [facility] 04-18-2024 11:50-0500 Respiratory rate 17 /min Ranjan Ball DO Work Phone: [facility] 04-18-2024 11:50-0500 SaO2% (BldA) [Mass fraction] 93 % Ranjan Ball DO Work Phone: [facility] 04-18-2024 11:50-0500 Systolic blood pressure 104 mm[Hg] Ranjan Ball DO Work Phone: [facility] 04-18-2024 08:00-0500 Body temperature 97.8 [degF] Ranjan Ball DO Work Phone: [facility] 04-18-2024 06:00-0500 Body weight 110.3 kg Ranjan Ball DO Work Phone: [facility] 04-17-2024 16:02-0500 Body height 193.04 cm Ranjan Ball DO Work Phone: [facility] 04-16-2024 16:00-0500 Inhaled oxygen flow rate 2 L/min Ranjan Ball DO Work Phone: [facility] 04-12-2024 04:00-0500 Inhaled oxygen concentration 50 % Ranjan Ball DO Work Phone: [facility] 04-09-2024 14:41-0500 Body height 193.04 cm [facility] 04-09-2024 14:41-0500 Body mass index (BMI) [Ratio] 28.3 kg/m2 [facility] 04-09-2024 14:41-0500 Body weight 105.4 kg [facility] 04-09-2024 14:41-0500 Diastolic blood pressure 90 mm[Hg] [facility] 04-09-2024 14:41-0500 Heart rate 144 /min [facility] 04-09-2024 14:41-0500 Respiratory rate 16 /min [facility] 04-09-2024 14:41-0500 Systolic blood pressure 125 mm[Hg] [facility] 11-14-2023 09:58-0400 Body height 193.04 cm [facility] 11-14-2023 09:58-0400 Body mass index (BMI) [Ratio] 27.3 kg/m2 [facility] 11-14-2023 09:58-0400 Body weight 101.66 kg [facility] 11-14-2023 09:58-0400 Diastolic blood pressure 84 mm[Hg] [facility] 11-14-2023 09:58-0400 Heart rate 83 /min [facility] 11-14-2023 09:58-0400 Respiratory rate 14 /min [facility] 11-14-2023 09:58-0400 SaO2% (BldA) [Mass fraction] 97 % [facility] 11-14-2023 09:58-0400 Systolic blood pressure 138 mm[Hg] [facility] 06-27-2023 10:58-0400 Body height 193.04 cm [facility] 06-27-2023 10:58-0400 Body mass index (BMI) [Ratio] 27.5 kg/m2 [facility] 06-27-2023 10:58-0400 Body weight 102.68 kg [facility] 06-27-2023 10:58-0400 Diastolic blood pressure 84 mm[Hg] [facility] 06-27-2023 10:58-0400 Heart rate 91 /min [facility] 06-27-2023 10:58-0400 Respiratory rate 12 /min [facility] 06-27-2023 10:58-0400 Systolic blood pressure 133 mm[Hg] [facility] 02-10-2023 08:30-0500 Body height 193.04 cm Ranjan Ball Other [facility] [employer] Other 02-10-2023 08:30-0500 Body mass index (BMI) [Ratio] 27.87 kg/m2 Ranjan Ball Other [facility] [employer] Other 02-10-2023 08:30-0500 Body weight 103.87 kg Ranjan Ball Other [facility] [employer] Other 02-10-2023 08:30-0500 Diastolic blood pressure 88 mm[Hg] Ranjan Ball Other [facility] [employer] Other 02-10-2023 08:30-0500 Respiratory rate 12 /min Ranjan Ball Other [facility] [employer] Other 02-10-2023 08:30-0500 Systolic blood pressure 136 mm[Hg] Ranjan Ball Other [facility] [employer] Other 10-03-2022 15:45-0400 Body height 193.04 cm Ranjan Ball Other [facility] [employer] Other 10-03-2022 15:45-0400 Body mass index (BMI) [Ratio] 26.14 kg/m2 Ranjan Ball Other [employer] Other 10-03-2022 15:45-0400 Body weight 97.43 kg Ranjan Ball Other [employer] Other 10-03-2022 15:45-0400 Diastolic blood pressure 96 mm[Hg] Ranjan Ball Other [employer] Other 10-03-2022 15:45-0400 Respiratory rate 12 /min Ranjan Ball Other [employer] Other 10-03-2022 15:45-0400 Systolic blood pressure 159 mm[Hg] Ranjan Ball Other [employer] Other 07-19-2022 15:00-0400 Body height 193.04 cm Ranjan Ball Other [employer] Other 07-19-2022 15:00-0400 Body mass index (BMI) [Ratio] 26.63 kg/m2 Ranjan Ball Other [employer] Other 07-19-2022 15:00-0400 Body weight 99.25 kg Ranjan Ball Other [employer] Other 07-19-2022 15:00-0400 Diastolic blood pressure 81 mm[Hg] Ranjan Ball Other [employer] Other 07-19-2022 15:00-0400 Respiratory rate 12 /min Ranjan Ball Other [employer] Other 07-19-2022 15:00-0400 Systolic blood pressure 155 mm[Hg] Ranjan Ball Other [employer] Other Encounters Encounter Date Encounter Type Care Provider Facility Start: 04-16-2024 Non-patient / Non-visit Benjam in Ball DO Work Phone: [facility] Work Phone: Start: 04-13-2024 Non-patient / Non-visit Benjam in Ball DO Work Phone: [facility] Cardiology Work Phone: Start: 04-12-2024 Non-patient / Non-visit Benjam in Ball DO Work Phone: [facility] Work Phone: Start: 04-10-2024 End: 04-18-2024 Evaluation and management of inpatient Ranjan Ball DO Work Phone: [facility] Work Phone: Start: 04-09-2024 End: 04-09-2024 ambulatory [facility] Work Phone: Start: 04-09-2024 End: 04-09-2024 Patient encounter procedure [facility] Work Phone: Start: 11-14-2023 End: 11-14-2023 ambulatory [facility] Work Phone: Start: 11-14-2023 End: 11-14-2023 Patient encounter procedure [facility] Work Phone: Start: 06-27-2023 End: 06-27-2023 ambulatory [facility] Work Phone: Start: 06-27-2023 End: 06-27-2023 Patient encounter procedure [facility] Work Phone: Start: 02-10-2023 End: 02-10-2023 ambulatory Ranjan Lomas Other [employer] Other Start: 02-10-2023 Office outpatient vi sit 15 minutes Ranjan Nathaly [facility] Start: 11-07-2022 End: 11-07-2022 ambulatory Ranjan Lomas Other [employer] Other Start: 11-07-2022 Telephone encounter Ranjan [facility] Start: 10-11-2022 End: 10-11-2022 ambulatory Ranjan Lomas Other [employer] Other Start: 10-11-2022 Telephone encounter Ranjan Montelongo [facility] Start: 10-03-2022 End: 10-03-2022 ambulatory Ranjan Lomas Other [employer] Other Start: 10-03-2022 Office outpatient vi sit 15 minutes Ranjan Lomas [facility] Start: 07-19-2022 End: 07-19-2022 ambulatory Ranjan Lomas Other [employer] Other Start: 07-19-2022 Office outpatient vi sit 15 minutes Ranjan Lomas [facility] Start: 12-03-2021 End: 12-04-[address] RANJAN LOMAS Facility:H1 Procedures Date Procedure Procedure Detail Performing Clinician Start: 04-15-2024 Radionuclide myocard ial perfusion stress study Ranjan Lomas DO Work Phone: Start: 04-12-2024 Urine culture Ranjan Lomas DO Work Phone: Start: 04-12-2024 Ultrasonography of b ilateral kidneys Ranjan Lomas DO Work Phone: Start: 04-10-2024 Plain chest X-ray Lalit Lomas DO Work Phone: Start: 12-03-[address] DUKES [facility] [place] Comment on above: Performed By: #### [facility] #### [facility] [address] [place] [address] Dr. Ludin Parra Start: 11-17-2015 Hyperlipidemia screening Ranjan Lomas Other Start: 11-17-2015 Screening for malign ant neoplasm of colon Ranjan Lomas Other Screening for malign ant neoplasm of prostate Ranjan Lomas Other Plan of Treatment Date Care Activity Detail Author Start: 04-18-2024 [facility] Start: 04-16-2024 Referral to rehabili tation physician [facility] Start: 04-12-2024 Referral to chief contract officer [facility] Start: 04-10-2024 Hospital admission [facility] Start: 04-10-2024 Referral to automotive alignment specialist [facility] Patient Education Know your Meds [facility] Work Phone: Patient referral [facility] Work Phone: Immunizations Immunization Date Immunization Notes Care Provider Fa cilijavi 04-29-2020 COVID-19 Vaccine Isai ssen - Documentation Purposes Only Ranjan Lomas Other [facility] 11-10-2016 diphtheria, tetanus toxoids and acellular pertussis vaccine, unspecified formulation Ranjan Lomas Other [facility] Payers Date Payer Category Payer Private Health Insurance [id number] 2024 Self-pay 1960 Medicare [id number] 1945 Unknown [id number] Medicare Medicare Outpatient [id number] Unknown Lucy BC/LYLE [id number] Unknown [id number] Social History Date Type Detail Facility Sex Assigned At [employer] Other Start: 02-09-2023 End: 04-16-2024 Tobacco smoking status NHIS Never smoked tobacco (finding) [facility] Start: 1945 Sex Assigned At Male F [facility] Start: 04-09-2024 End: 04-18-2024 Sex Male (finding) [facility] Start: 04-15-2024 End: 04-17-2024 SDOH Follow up SDOH Follow up [facility] Work Phone: Goals Date Patient Goal Desired Activity /State Functional Status Date Assessment Result Facility 04-18-2024 Functional status Patient at Baseline [facility] Work Phone: Mental Status Date Assessment Result Facility 04-18-2024 Cognitive function Cognitive Sta tus Patient at Baseline [facility] Work Phone: Clinical Notes 07-19-2022 to 04-18-2024 Note Date & Type Note Facility 04-18-2024 Progress note Note Date/Time April 18, 2024 12:05pm [facility] [address] [place] [address] Nephrology Progress Note Signed Patient: Corwin Muller MR#: [id number] : 1945 Acct:[id number] Age/Sex: 79 / M Adm Date: 5 Loc: Room: [address] [place] [address] Type: ADM IN Attending Dr: Jn Yanes MD Copies to: ~ Date of Service: 04/18/2024 Subjective Subjective Narrative: This is an 79 yo male with PMHx of chronic kidney disease stage IIIb, hyperlipidemia, atrial tachycardia, hypertension and arthritis that was at his doctor's appointment for injections to his knees when his vitals were checked. He was sent to the emergency room due to heart rate in the 140s. He denied any symptoms whatsoever at that time. He was evaluated in the [facility] with EKG showing SVT and inverted T waves. He received diltiazem bolus and drip. Chest x-ray with bilateral interstitial infiltrates. He was given digoxin, Lasix, morphine and developed respiratory distress with oxygen sat 87% on 5 L nasal cannula. He was then placed on BiPAP and Ruiz was placed as well. No leukocytosis noted, BUN 29, creatinine 2.62, elevated troponin at 910 and BNP 8857. Patient was admitted for NSTEMI, CHF, and new onset A-fib. Echo showed EF 35 to 40% with moderate global hypokinesis of LV. Cardiology was consulted and recommended delaying ischemic evaluation after renal function has improved due to risk of contrast-induced nephropathy. He was started on GDMT forCHF including carvedilol, Imdur, hydralazine and Farxiga. Farxiga was stopped due to the hypotension. Nephrology was consulted due to YOJANA, fluid overload. INTERIM HISTORY Furosemide was held for 2 days yesterday since creatinine has increased up to 3.2 mg/dL with lower blood pressure. Blood pressure still low however renal function started stabilized and creatinine is down to 3.08 mg/dL with BUN down to 15. No acidosis or hyperkalemia. He has no edema. Patient was seen by automotive alignment specialist and diltiazem was completely stopped that hopefully it will help to improve blood pressure as well. Patient still in sinus rhythm with heart rate 60/min. Patient is walking in the room with no shortness of breath. He feels better andhe willing to go home. Stress test showed low EF and LAD ischemia. Patient elected to continue conservative treatment only as he has a concern about contrast induced YOJANA. Exam Physical Exam Vital Signs: Temp Pulse Resp BP Pulse Ox O2 Del Method O2 Flow Rate 36.6 C 61 17 104/63 93 L Room Air 2 04/18/24 08:00 04/18/24 11:50 04/18/24 11:50 04/18/24 11:50 04/18/24 11:50 04/18/24 11:50 04/16/24 16:00 FiO2 50 04/12/24 04:00 Narrative: Constitutional: Appears comfortable and not in distress HEENT: No pallor or Jaundice Cardiovascular: Irregular, normal S1-S2, no gallop or rub, No JVD Respiratory: Good bilateral air entry no wheezing or crackles Gastrointestinal: Soft, non tender, positive bowel sounds Extremities: No edema Skin: No rashes or bruises Musculoskeletal: No joints swellings or inflammation Neurology: Awake, alert, oriented ?3, No focal motor or sensory deficits Psych: Normal mood and affect Objective Intake and Output I&O: Intake & Output 04/15/24 04/16/24 04/17/24 04/18/24 23:59 23:59 23:59 23:59 Intake Total 1150 / 1150 1150 / 1150 1150 / 1150 800 / 800 Output Total 2250 / 2250 800 / 800 950 / 950 Balance -1100 / -1100 350 / 350 200 / 200 800 / 800 Weight 111.2 kg 110.5 kg 110.3 kg Meds and Allergies Meds: Active Medications Acetaminophen (Acetaminophen 500 Mg Tablet) 1,000 mg PO Q6HR PRN PRN Reason: Pain Scale 1 - 3 or fever Stop: 04/10/25 04:04 Amiodarone HCl (Amiodarone 200 Mg Tablet) 200 mg PO TID [facility] Stop: 04/16/25 21:59 Last Admin: 04/18/24 08:53 Dose: 200 mg Apixaban (Apixaban 2.5 Mg Tablet) 2.5 mg PO BID [facility] Stop: 04/12/25 20:59 Last Admin: 04/18/24 08:53 Dose: 2.5 mg Aspirin (Aspirin 81 Mg Tablet.Dr) 81 mg PO DAILY [facility] Stop: 04/11/25 08:59 Last Admin: 04/18/24 08:53 Dose: 81 mg Docusate Sodium (Docusate 100 Mg Capsule) 200 mg PO BID PRN PRN Reason: Constipation Stop: 04/15/25 11:55 Furosemide (Furosemide 40 Mg Tablet) 40 mg PO BID@0800,1600 [facility] Stop: 04/12/25 15:59 Last Admin: 04/17/24 09:34 Dose: 40 mg Hydralazine HCl (Hydralazine 25 Mg Tablet) 25 mg PO BID [facility] Stop: 04/12/25 20:59 Last Admin: 04/18/24 08:53 Dose: 25 mg Isosorbide Mononitrate (Isosorbide Mononitrate 24hr Er 30 Mg Tab.Er.24h) 30 mg PO DAILY.6A [facility] Stop: 04/13/25 05:59 Last Admin: 04/18/24 06:07 Dose: 30 mg Melatonin (Melatonin 5 Mg Tablet) 5 mg PO QHS PRN PRN Reason: sleep Stop: 04/18/25 21:59 Last Admin: 04/18/24 00:34 Dose: 5 mg Metoprolol Succinate (Metoprolol Succinate 50 Mg Tab.Er.24h) 50 mg PO BID [facility] Stop: 04/13/25 20:59 Last Admin: 04/18/24 08:53 Dose: 50 mg Morphine Sulfate (Morphine Sulfate 2 Mg/Ml Vial) 2 mg IV-PUSH Q4H PRN PRN Reason: Pain Scale 8 - 10 Ondansetron HCl (Ondansetron 4 Mg/2 Ml Vial) 4 mg IV-PUSH Q6H PRN PRN Reason: Nausea And Vomiting Stop: 04/10/25 04:04 Potassium Chloride (Potassium Chloride Er 20 Meq Tab.Er.Prt) 20 meq PO DAILY [facility] Stop: 04/13/25 08:59 Last Admin: 04/18/24 08:53 Dose: 20 meq Sennosides (Sennosides Syrup 8.8 Mg/5 Ml Udc) 17.6 mg PO HS BLESS[facility] Stop: 04/15/25 21:59 Last Admin: 04/17/24 21:07 Dose: Not Given Sodium Chloride (Sodium Chloride 0.9 % 10 Ml Syringe) 0 ml IV-PUSH QSHIFT [facility]ESS[facility] Stop: 04/10/25 05:59 Last Admin: 04/18/24 06:09 Dose: Not Given Sodium Chloride (Sodium Chloride 0.9 % 10 Ml Syringe) 0 ml IV-PUSH PRN PRN PRN Reason: Flush Stop: 04/15/25 13:36 Last Admin: 04/15/24 14:00 Dose: 30 ml Spironolactone (Spironolactone 12.5 Mg Tablet) 12.5 mg PO DAILY [facility] Stop: 04/12/25 19:59 Last Admin: 04/18/24 08:53 Dose: 12.5 mg Allergies No Known Allergies Allergy (Verified 04/09/24 14:28) Results - Nephrology Labs 04/17/24 03:25 04/18/24 09:50 Labs: 04/18/24 09:50 BUN 50 H Creatinine 3.08 H Phosphorus 3.2 Albumin 3.8 Radiology Impressions Impressions - last 24 hours: Any impression(s) listed above is documentation that was entered by the reading physician into a diagnostic report(s) for Corwin Muller. I have reviewed the report(s) and am incorporating any findings in the treatment plan of this patient where applicable. A&P - Nephrology Assessment/Plan (1) Acute kidney injury superimposed on CKD: Assessment/Problem Details: YOJANA on CKD due to cardiorenal syndrome in setting of A-fib with RVR and acute CHF exacerbation. He has no evidence of obstructive uropathy on renal ultrasound. (2) NSTEMI (non-ST elevated myocardial infarction): Assessment/Problem Details: Patient was admitted for WA and his echocardiogram showed EF 35 to 40%. He is currently on aspirin and carvedilol. Cardiology is following the patient and have ordered stress test. (3) CKD (chronic kidney disease) stage 3, GFR 30-59 ml/min: Assessment/Problem Details: He has a longstanding CKD due to the hypertension baseline serum creatinine was was reported 1.8 mg/dL. Patient was following with the PCP for CKD care. (4) Paroxysmal atrial fibrillation with RVR: Assessment/Problem Details: Cardiology following, on heparin, amiodarone, metoprolol, diltiazem, aspirin. (5) Acute hypoxic respiratory failure: Assessment/Problem Details: Acute hypoxic respiratory failure due to CHF exacerbation and A-fib RVR. (6) Acute systolic CHF (congestive heart failure): Assessment/Problem Details: EF 35 to 40%. On goal-directed medical therapy per cardiology. Cardiology following, on hydralazine, isosorbide, Lasix. Holding off on SGLT2 inhibitor due to renal dysfunction. (7) UTI (urinary tract infection): Assessment/Problem Details: Patient on ceftriaxone. (8) Hypertension: Assessment/Problem Details: His blood pressure is within the goal. Plan * Creatinine stabilized and slightly improved down to 3.08 mg/dL after holding furosemide and decrease the dose of diltiazem. Patient was seen by Dr. Ken and diltiazem was stopped altogether today since patient still in sinus rhythm. Blood pressure stable however still low 104/63. Will continue holding furosemide today however it can be restarted tomorrow at 40 mg twice a day to avoid recurrent CHF * Continue spironolactone 12.5 mg daily for low EF that can be increased as tolerated. * I had a long discussion with the patient and his today. Although serum creatinine stabilized and possibly will get slightly better, he is high risk for recurrent YOJANA and progression of CKD and required dialysis soon. He will follow-up with Dr. Monroy as outpatient. He elected to go conservative treatment for non-STEMI for concern about contrast-induced nephropathy. Patient stable from renal point to be discharged home today off Diltiazem. Furosemide 40 mg p.o. twice a day will be started tomorrow. Patient need follow-up renal panel and CBC in 7 to 10 days and follow-up with Dr. Monroy. . Documented By: Felicia Aguilar MD 04/18/24 1158 Signed By: <Electronically signed by MD Felicia Aguilar> 04/18/24 1145 [facility] Work Phone: [phone] 232-217002-27-2025 Progress note Author Jn Yanes [facility] Note Date/Time April 18, 2024 11:56am [facility] [address] [place] [address] Hospitalist Progress Note Signed with Charlene Patient: Corwin Muller MR#: [id number] : 1945 Acct:[id number] Age/Sex: 79 / M Adm Date: 5 Loc: Room: [address] [place] [address] Type: ADM IN Attending Dr: Jn Yanes MD Copies to: ~ ADDENDUM1 Erratum: attestation from 04/16/24 carried forward, patient and Rosalba were assessed by me. Confirmed rest of note. Addendum Documented By: Jn Yanes MD 04/18/24 1156 Addendum Signed By: <Electronically signed by Jn Yanes MD> 04/18/24 1156 Date of Service: 04/17/2024 Subjective Subjective Narrative: Needs improved, no longer needing supplemental oxygen, however creatinine continues to rise discussed need for reevaluation by nephrology. Exam Physical Exam Vital Signs: Temp Pulse Resp BP Pulse Ox O2 Del Method O2 Flow Rate 98.2 F 65 18 113/65 98 Room Air 2 04/17/24 08:46 04/17/24 13:00 04/17/24 13:00 04/17/24 13:00 04/17/24 13:00 04/17/24 13:00 04/16/24 16:00 FiO2 50 04/12/24 04:00 Narrative: General: cooperative and comfortable Orientation: alert, awake and oriented x3 Head: normal to inspection Neck: normal visual inspection Cardio: no JVD, regular rate, regular rhythm Chest palpation & inspection: normal inspection of the chest Resp Effort & Inspection: normal respiratory effort Abd: soft, non-tender, non-distended Extremities: Warm well perfused, no edema Objective Lab Results 04/17/24 03:25 04/17/24 03:25 Meds Allergies and Active Meds Allergies No Known Allergies Allergy (Verified 04/09/24 14:28) Active Meds: Active Medications Generic Name Dose Route Start Last Admin Trade Name Docq PRN Reason Stop Dose Admin Acetaminophen 1,000 mg 04/10/24 04:05 Acetaminophen 500 Mg Tablet PO 04/10/25 04:04 Q6HR PRN Pain Scale 1 - 3 or fever Amiodarone HCl 200 mg 04/16/24 22:00 04/17/24 09:34 Amiodarone 200 Mg Tablet PO 04/16/25 21:59 200 mg TID BLESSING Administration Apixaban 2.5 mg 04/12/24 21:00 04/17/24 09:34 Apixaban 2.5 Mg Tablet PO 04/12/25 20:59 2.5 mg BID BLESSING Administration Aspirin 81 mg 04/11/24 09:00 04/17/24 09:34 Aspirin 81 Mg Tablet.Dr PO 04/11/25 08:59 81 mg DAILY BLESSING Administration Diltiazem HCl 240 mg 04/17/24 09:00 04/17/24 09:34 Diltiazem Cd.24hr 240 Mg Cap.Er.24h PO 04/17/25 08:59 240 mg DAILY BLESSING Administration Docusate Sodium 200 mg 04/15/24 11:56 Docusate 100 Mg Capsule PO 04/15/25 11:55 BID PRN Constipation Furosemide 40 mg 04/12/24 16:00 04/17/24 09:34 Furosemide 40 Mg Tablet PO 04/12/25 15:59 40 mg BID@0800,1600 BLESSING Administration Hydralazine HCl 25 mg 04/12/24 21:00 04/17/24 09:34 Hydralazine 25 Mg Tablet PO 04/12/25 20:59 25 mg BID BLESSING Administration Isosorbide Mononitrate 30 mg 04/13/24 06:00 04/17/24 05:10 Isosorbide Mononitrate 24hr Er 30 Mg Tab.Er.24h PO 04/13/25 05:59 30 mg DAILY.6A BLESSING Administration Metoprolol Succinate 50 mg 04/13/24 21:00 04/17/24 09:34 Metoprolol Succinate 50 Mg Tab.Er.24h PO 04/13/25 20:59 50 mg BID BLESSING Administration Morphine Sulfate 2 mg 04/10/24 04:05 Morphine Sulfate 2 Mg/Ml Vial IV-PUSH Q4H PRN Pain Scale 8 - 10 Ondansetron HCl 4 mg 04/10/24 04:05 Ondansetron 4 Mg/2 Ml Vial IV-PUSH 04/10/25 04:04 Q6H PRN Nausea And Vomiting Potassium Chloride 20 meq 04/13/24 09:00 04/17/24 09:34 Potassium Chloride Er 20 Meq Tab.Er.Prt PO 04/13/25 08:59 20 meq DAILY BLESSING Administration Sennosides 17.6 mg 04/15/24 22:00 04/17/24 07:25 Sennosides Syrup 8.8 Mg/5 Ml Udc PO 04/15/25 21:59 Not Given HS BLESSING Sodium Chloride 0 ml 04/10/24 06:00 04/17/24 07:25 Sodium Chloride 0.9 % 10 Ml Syringe IV-PUSH 04/10/25 05:59 Not Given QSHIFT BLESSING Sodium Chloride 0 ml 04/15/24 13:37 04/15/24 14:00 Sodium Chloride 0.9 % 10 Ml Syringe IV-PUSH 04/15/25 13:36 30 ml PRN PRN Administration Flush Spironolactone 12.5 mg 04/12/24 20:00 04/17/24 09:34 Spironolactone 12.5 Mg Tablet PO 04/12/25 19:59 12.5 mg DAILY BLESSING Administration A&P - Hospitalist Assessment/Plan (1) Acute hypoxic respiratory failure: (2) Acute pulmonary edema: (3) Acute systolic CHF (congestive heart failure): (4) HFrEF (heart failure with reduced ejection fraction): (5) NSTEMI (non-ST elevated myocardial infarction): (6) Cardiomyopathy: Plan Acute systolic heart failure exacerbation Acute pulmonary edema 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 Pt was initiated on GDMT, BB, hydralazine and Imdur due to renal failure, spironolactone. -SGLT2 not started due to renal failure. Can be re-visted later down the road/outpatient. -Ischemic workup as per cardiology. -Oxygen supplementation as needed -Monitor electrolytes while on diuretics -CPAP at night and as needed -Furosemide to be continued on hold until Monday with plans to restart at 40 mg twice daily given admission with CHF -Will plan to discharge tomorrow if renal function improved with plan for follow-up BMP in 5 to 7 days Afib with RVR- converted to NSR 04/16/24 New diagnosis of Afib -rate better controlled -Transitioned to oral Cardizem, also on Coreg. -Dose reduced today potential discontinuation if patient remains in sinus rhythm given cardiorenal syndrome -Started on Eliquis 2.5 mg BID -Continue on Amiodarone per cardio -Cardiology following -Cardiac monitoring YOJANA on CKD -Baseline seems around Cr. 1.8. -Nephro was consulted -Lasix on hold, as above -PT has Ruiz catheter for accurate output. -UA obtained, seems positive for UTI. Continue IV Rocephin to complete 5 days. -renal US > no mass or hydronephrosis. -Nephrology following, input appreciated. Diet: healthy heart DVT ppx: Eliquis Code status: Full Status: inpatient Discussed with patient and Rosalba at bedside. All questions answered. In agreement with the above plan Plan for MPI stress test part 2 today. Further input as per cardiology regardingnext steps. Wean off oxygen as tolerated Will need walk study on discharge Jersey Quigley MD Internal Medicine Hospitalist Attending Physician Documented By: Jn Yanes MD 04/17/24 1402 Signed By: <Electronically signed by Jn Yanes MD> 04/17/24 1631 [facility] Work Phone: [phone]) 769-146102-27-2025 Progress note Author Mely Ken [facility] Note Date/Time April 18, 2024 10:26am [facility] [address] [place] [address] Cardiology Progress Note Signed Patient: Corwin Muller MR#: [id number] : 1945 Acct:[id number] Age/Sex: 79 / M Adm Date: 5 Loc: Room: [address] [place] [address] Type: ADM IN Attending Dr: Jn Yanes MD Copies to: ~ Date of Service: 04/18/2024 Subjective Principal diagnosis: Congestive heart failure/atrial fibrillation Interval history: No chest pain or shortness of breath. Converted to normal sinus rhythm. Stresstest shows LV systolic dysfunction and LAD ischemia. Kept on the hospital because of slight worsening of renal function Exam Physical Exam Vital Signs: Temp Pulse Resp BP Pulse Ox O2 Del Method O2 Flow Rate 97.8 F 60 16 122/71 93 L Room Air 2 04/18/24 08:00 04/18/24 08:00 04/18/24 08:00 04/18/24 08:00 04/18/24 08:00 04/18/24 08:00 04/16/24 16:00 FiO2 50 04/12/24 04:00 Eyes General: appearance normal, both eyes and all related structures Pupils: PERRL Neck Neck: normal visual inspection, supple and no lymphadenopathy noted Neck mass: No Thyroid: thyroid normal Carotids: normal carotid upstroke Chest Chest palpation & inspection: normal inspection of the chest Resp Auscultation: crackles, rales and rhonchi Cardio Palpation: normal PMI Rate: regular rate Rhythm: regular rhythm Heart Sounds: S1 normal, S2 normal and murmur systolic II/ and at the right sternal border Skin General: no rashes or lesions noted and dry skin Extrem General: full ROM, capillary refill normal and no clubbing, cyanosis or edema Objective Labs 04/17/24 03:25 04/17/24 03:25 Labs: Laboratory Results - last 24 hr 04/18/24 09:05 Ur Random Creatinine 84.00 Ur Random Sodium 32 A&P - Cardiology (1) NSTEMI (non-ST elevated myocardial infarction): Assessment/Problem Details: Troponin rise was just under 1000 pg/mL and was not associated with chest pain. Ejection fraction is severely reduced Code(s): I21.4 - Non-ST elevation (NSTEMI) myocardial infarction Plan Assessment 1. Presentation with acute pulmonary edema due to coronary artery disease improving. Patient is lying flat without shortness of breath 2. Large Non-ST elevation myocardial infarction stress test appears to be positive for anterior wall ischemia 3. Renal insufficiency with creatinine today 3.2 4. New onset atrial fibrillation with RVR back to normal sinus rhythm 5. Cardiomyopathy with LVEF based on my review in the range of 25-30%, ischemiccomponent need to be ruled out Plan 1. Continue amiodarone and Eliquis 2. The results of the stress test reviewed with patient and his at great length. We discussed invasive evaluation at great length. Patient apprehensiveabout the risk of contrast-induced nephropathy in need for hemodialysis. We discussed limited of invasive evaluation versus conservative management following lengthy and extensive discussion more than 30 minutes the patient elected to continue with medical therapy 3. Continue with aggressive approach to risk factor modification 4. Continue to optimize heart failure therapy with combination of beta-susie hydralazine and nitrate 5. I will stop diltiazem today in view of maintenance of sinus rhythm 6. Patient can be discharged home. Discharge medication were addressed Documented By: Mely Ken MD 04/18/24 1024 Signed By: <Electronically signed by MD Mely Ken> 04/18/24 1026 [facility] Work Phone: 1(164) 151-665902-27-2025 [place] [address] Nephrology Progress Note Signed Patient: Corwin Muller MR#: [id number] : 1945 Acct:[id number] Age/Sex: 79 / M Adm Date: 5 Loc: Room: [address] [place] [address] Type: ADM IN Attending Dr: Jn Yanes MD Copies to: ~ Date of Service: 04/18/2024 Subjective Subjective Narrative: This is an 79 yo male with PMHx of chronic kidney disease stage IIIb, hyperlipidemia, atrial tachycardia, hypertension and arthritis that was at his doctor's appointment for injections to his knees when his vitals were checked. He was sent to the emergency room due to heart rate in the 140s. He denied any symptoms whatsoever at that time. He was evaluated in the [facility] with EKG showingSVT and inverted T waves. He received diltiazem bolus and drip. Chest x-ray with bilateral interstitial infiltrates. He was given digoxin, Lasix, morphine and developed respiratory distress with oxygen sat 87% on 5 L nasal cannula. He was then placed on BiPAP and Ruiz was placed as well. No leukocytosis noted, BUN 29, creatinine 2.62, elevated troponin at 910 and BNP 8857. Patient was admitted for NSTEMI, CHF, and new onset A-fib. Echo showed EF 35 to 40% with moderate global hypokinesis of LV. Cardiology was consulted and recommended delaying ischemic evaluation after renal function has improved due to risk of contrast-induced nephropathy. He was started on GDMT forCHF including carvedilol, Imdur, hydralazine and Farxiga. Farxiga was stopped due to the hypotension. Nephrology was consulted due to YOJANA, fluid overload. INTERIM HISTORY Furosemide was held for 2 days yesterday since creatinine has increased up to 3.2 mg/dL with lower blood pressure. Blood pressure still low however renal function started stabilized and creatinine is down to 3.08 mg/dL with BUN down to 15. No acidosis or hyperkalemia. He has no edema. Patient was seen by automotive alignment specialist and diltiazem was completely stopped that hopefully it will help to improve blood pressure as well. Patient still in sinus rhythm with heart rate 60/min. Patient is walking in the room with no shortness of breath. He feels better andhe willing to go home. Stress test showed low EF and LAD ischemia. Patient elected to continue conservative treatment onlyas he has a concern about contrast induced YOJANA. Exam Physical Exam Vital Signs: Temp Pulse Resp BP Pulse Ox O2 Del Method O2 Flow Rate 36.6 C 61 17 104/63 93 L Room Air 2 04/18/24 08:00 04/18/24 11:50 04/18/24 11:50 04/18/24 11:50 04/18/24 11:50 04/18/24 11:50 04/16/24 16:00 FiO2 50 04/12/24 04:00 Narrative: Constitutional: Appears comfortable and not in distress HEENT: No pallor or Jaundice Cardiovascular: Irregular, normal S1-S2, no gallop or rub, No JVD Respiratory: Good bilateral air entry no wheezing or crackles Gastrointestinal: Soft, non tender, positive bowel sounds Extremities: No edema Skin: No rashes or bruises Musculoskeletal: No joints swellings or inflammation Neurology: Awake, alert, oriented ?3, No focal motor or sensory deficits Psych: Normal mood and affect Objective Intake and Output I&O: Intake & Output 04/15/24 04/16/24 04/17/24 04/18/24 23:59 23:59 23:59 23:59 Intake Total 1150 / 1150 1150 / 1150 1150 / 1150 800 / 800 Output Total 2250 / 2250 800 / 800 950 / 950 Balance -1100 / -1100 350 / 350 200 / 200 800 / 800 Weight 111.2 kg 110.5 kg 110.3 kg Meds and Allergies Meds: Active Medications Acetaminophen (Acetaminophen 500 Mg Tablet) 1,000 mg PO Q6HR PRN PRN Reason: Pain Scale 1 - 3 or fever Stop: 04/10/25 04:04 Amiodarone HCl (Amiodarone 200 Mg Tablet) 200 mg PO TID [facility] Stop: 04/16/25 21:59 Last Admin: 04/18/24 08:53 Dose: 200 mg Apixaban (Apixaban 2.5 Mg Tablet) 2.5 mg PO BID [facility] Stop: 04/12/25 20:59 Last Admin: 04/18/24 08:53 Dose: 2.5 mg Aspirin (Aspirin 81 Mg Tablet.Dr) 81 mg PO DAILY BLESSING Stop: 04/11/25 08:59 Last Admin: 04/18/24 08:53 Dose: 81 mg Docusate Sodium (Docusate 100 Mg Capsule) 200 mg PO BID PRN PRN Reason: Constipation Stop: 04/15/25 11:55 Furosemide (Furosemide 40 Mg Tablet) 40 mg PO BID@0800,1600 [facility] Stop: 04/12/25 15:59 Last Admin: 04/17/24 09:34 Dose: 40 mg Hydralazine HCl (Hydralazine 25 Mg Tablet) 25 mg PO BID BLESSING Stop: 04/12/25 20:59 Last Admin: 04/18/24 08:53 Dose: 25 mg Isosorbide Mononitrate (Isosorbide Mononitrate 24hr Er 30 Mg Tab.Er.24h) 30 mg PO DAILY.6A [facility] Stop: 04/13/25 05:59 Last Admin: 04/18/24 06:07 Dose: 30 mg Melatonin (Melatonin 5 Mg Tablet) 5 mg PO QHS PRN PRN Reason: sleep Stop: 04/18/25 21:59 Last Admin: 04/18/24 00:34 Dose: 5 mg Metoprolol Succinate (Metoprolol Succinate 50 Mg Tab.Er.24h) 50 mg PO BID BLESSING Stop: 04/13/25 20:59 Last Admin: 04/18/24 08:53 Dose: 50 mg Morphine Sulfate (Morphine Sulfate 2 Mg/Ml Vial) 2 mg IV-PUSH Q4H PRN PRN Reason: Pain Scale 8 - 10 Ondansetron HCl (Ondansetron 4 Mg/2 Ml Vial) 4 mg IV-PUSH Q6H PRN PRN Reason: Nausea And Vomiting Stop: 04/10/25 04:04 Potassium Chloride (Potassium Chloride Er 20 Meq Tab.Er.Prt) 20 meq PO DAILY BLESSING Stop: 04/13/25 08:59 Last Admin: 04/18/24 08:53 Dose: 20 meq Sennosides (Sennosides Syrup 8.8 Mg/5 Ml Udc) 17.6 mg PO HS BLESSING Stop: 04/15/25 21:59 Last Admin: 04/17/24 21:07 Dose: Not Given Sodium Chloride (Sodium Chloride 0.9 % 10 Ml Syringe) 0 ml IV-PUSH QSHIFT BLESSING Stop: 04/10/25 05:59 Last Admin: 04/18/24 06:09 Dose: Not Given Sodium Chloride (Sodium Chloride 0.9 % 10 Ml Syringe) 0 ml IV-PUSH PRN PRN PRN Reason: Flush Stop: 04/15/25 13:36 Last Admin: 04/15/24 14:00 Dose: 30 ml Spironolactone (Spironolactone 12.5 Mg Tablet) 12.5 mg PO DAILY BLESSING Stop: 04/12/25 19:59 Last Admin: 04/18/24 08:53 Dose: 12.5 mg Allergies No Known Allergies Allergy (Verified 04/09/24 14:28) Results - Nephrology Labs 04/17/24 03:25 04/18/24 09:50 Labs: 04/18/24 09:50 BUN 50 H Creatinine 3.08 H Phosphorus 3.2 Albumin 3.8 Radiology Impressions Impressions - last 24 hours: Any impression(s) listed above is documentation that was entered by the reading physician into a diagnostic report(s) for Corwin Muller. I have reviewed the report(s) and am incorporating anyfindings in the treatment plan of this patient where applicable. A&P - Nephrology Assessment/Plan (1) Acute kidney injury superimposed on CKD: Assessment/Problem Details: YOJANA on CKD due to cardiorenal syndrome in setting of A-fib with RVR and acute CHF exacerbation. He has no evidence of obstructive uropathy on renal ultrasound. (2) NSTEMI (non-ST elevated myocardial infarction): Assessment/Problem Details: Patient was admitted for [place] and his echocardiogram showed EF 35 to 40%. He is currently on aspirin and carvedilol. Cardiology is following the patient and have ordered stress test. (3) CKD (chronic kidney disease) stage 3, GFR 30-59 ml/min: Assessment/Problem Details: He has a longstanding CKD due to the hypertension baseline serum creatinine was was reported 1.8 mg/dL. Patient was following with the PCP for CKD care. (4) Paroxysmal atrial fibrillation with RVR: Assessment/Problem Details: Cardiology following, on heparin, amiodarone, metoprolol, diltiazem, aspirin. (5) Acute hypoxic respiratory failure: Assessment/Problem Details: Acute hypoxic respiratory failure due to CHF exacerbation and A-fib RVR. (6) Acute systolic CHF (congestive heart failure): Assessment/Problem Details: EF 35 to 40%. On goal-directed medical therapy per cardiology. Cardiology following, on hydralazine, isosorbide, Lasix. Holding off on SGLT2 inhibitor due to renal dysfunction. (7) UTI (urinary tract infection): Assessment/Problem Details: Patient on ceftriaxone. (8) Hypertension: Assessment/Problem Details: His blood pressure is within the goal. Plan * Creatinine stabilized and slightly improved down to 3.08 mg/dL after holding furosemide and decrease the dose of diltiazem. Patient was seen by Dr. Ken and diltiazem was stopped altogether today since patient still in sinus rhythm. Blood pressure stable however still low 104/63. Will continue holding furosemide today however it can be restarted tomorrow at 40 mg twice a day to avoid recurrent CHF * Continue spironolactone 12.5 mg daily for low EF that can be increased as tolerated. * I had a long discussion with the patient and his today. Although serum creatinine stabilizedand possibly will get slightly better, he is high risk for recurrent YOJANA and progression of CKD andrequired dialysis soon. He will follow- up with Dr. Monroy as outpatient. He elected to go conservative treatment for non-STEMI for concern about contrast-induced nephropathy. Patient stable from renal point to be discharged home today off Diltiazem. Furosemide 40 mg p.o. twice a day will be started tomorrow. Patient need follow- up renal panel and CBC in 7 to 10 days and follow-up with Dr. Monroy. . Documented By: Felicia Aguilar MD 04/18/24 1158 Signed By: 04/18/24 1205 [facility]02-27-2025 [place] [address] Hospitalist Progress Note Signed with Addenda Patient: Corwin Muller MR#: [id number] : 1945 Acct:[id number] Age/Sex: 79 / M Adm Date: 5 Loc: Room: [address] [place] [address] Type: ADM IN Attending Dr: Jn Yanes MD Copies to: ~ ADDENDUM1 Erratum: attestation from 04/16/24 carried forward, patient and Rosalba were assessed by me. Confirmed rest of note. Addendum Documented By: Jn Yanes MD 04/18/24 1156 Addendum Signed By: 04/18/24 1156 Date of Service: 04/17/2024 Subjective Subjective Narrative: Needs improved, no longer needing supplemental oxygen, however creatinine continues to rise discussed need for reevaluation by nephrology. Exam Physical Exam Vital Signs: Temp Pulse Resp BP Pulse Ox O2 Del Method O2 Flow Rate 98.2 F 65 18 113/65 98 Room Air 2 04/17/24 08:46 04/17/24 13:00 04/17/24 13:00 04/17/24 13:00 04/17/24 13:00 04/17/24 13:00 04/16/24 16:00 FiO2 50 04/12/24 04:00 Narrative: General: cooperative and comfortable Orientation: alert, awake and oriented x3 Head: normal to inspection Neck: normal visual inspection Cardio: no JVD, regular rate, regular rhythm Chest palpation & inspection: normal inspection of the chest Resp Effort & Inspection: normal respiratory effort Abd: soft, non-tender, non-distended Extremities: Warm well perfused, no edema Objective Lab Results 04/17/24 03:25 04/17/24 03:25 Meds Allergies and Active Meds Allergies No Known Allergies Allergy (Verified 04/09/24 14:28) Active Meds: Active Medications Generic Name Dose Route Start Last Admin Trade Name Maurice PRN Reason Stop Dose Admin Acetaminophen 1,000 mg 04/10/24 04:05 Acetaminophen 500 Mg Tablet PO 04/10/25 04:04 Q6HR PRN Pain Scale 1 - 3 or fever Amiodarone HCl 200 mg 04/16/24 22:00 04/17/24 09:34 Amiodarone 200 Mg Tablet PO 04/16/25 21:59 200 mg TID BLESSING Administration Apixaban 2.5 mg 04/12/24 21:00 04/17/24 09:34 Apixaban 2.5 Mg Tablet PO 04/12/25 20:59 2.5 mg BID BLESSING Administration Aspirin 81 mg 04/11/24 09:00 04/17/24 09:34 Aspirin 81 Mg Tablet.Dr PO 04/11/25 08:59 81 mg DAILY BLESSING Administration Diltiazem HCl 240 mg 04/17/24 09:00 04/17/24 09:34 Diltiazem Cd.24hr 240 Mg Cap.Er.24h PO 04/17/25 08:59 240 mg DAILY BLESSING Administration Docusate Sodium 200 mg 04/15/24 11:56 Docusate 100 Mg Capsule PO 04/15/25 11:55 BID PRN Constipation Furosemide 40 mg 04/12/24 16:00 04/17/24 09:34 Furosemide 40 Mg Tablet PO 04/12/25 15:59 40 mg BID@0800,1600 BLESSING Administration Hydralazine HCl 25 mg 04/12/24 21:00 04/17/24 09:34 Hydralazine 25 Mg Tablet PO 04/12/25 20:59 25 mg BID BLESSING Administration Isosorbide Mononitrate 30 mg 04/13/24 06:00 04/17/24 05:10 Isosorbide Mononitrate 24hr Er 30 Mg Tab.Er.24h PO 04/13/25 05:59 30 mg DAILY.6A BLESSING Administration Metoprolol Succinate 50 mg 04/13/24 21:00 04/17/24 09:34 Metoprolol Succinate 50 Mg Tab.Er.24h PO 04/13/25 20:59 50 mg BID BLESSING Administration Morphine Sulfate 2 mg 04/10/24 04:05 Morphine Sulfate 2 Mg/Ml Vial IV-PUSH Q4H PRN Pain Scale 8 - 10 Ondansetron HCl 4 mg 04/10/24 04:05 Ondansetron 4 Mg/2 Ml Vial IV-PUSH 04/10/25 04:04 Q6H PRN Nausea And Vomiting Potassium Chloride 20 meq 04/13/24 09:00 04/17/24 09:34 Potassium Chloride Er 20 Meq Tab.Er.Prt PO 04/13/25 08:59 20 meq DAILY BLESSING Administration Sennosides 17.6 mg 04/15/24 22:00 04/17/24 07:25 Sennosides Syrup 8.8 Mg/5 Ml Udc PO 04/15/25 21:59 Not Given HS BLESSING Sodium Chloride 0 ml 04/10/24 06:00 04/17/24 07:25 Sodium Chloride 0.9 % 10 Ml Syringe IV-PUSH 04/10/25 05:59 Not Given QSHIFT BLESSING Sodium Chloride 0 ml 04/15/24 13:37 04/15/24 14:00 Sodium Chloride 0.9 % 10 Ml Syringe IV-PUSH 04/15/25 13:36 30 ml PRN PRN Administration Flush Spironolactone 12.5 mg 04/12/24 20:00 04/17/24 09:34 Spironolactone 12.5 Mg Tablet PO 04/12/25 19:59 12.5 mg DAILY BLESSING Administration A&P - Hospitalist Assessment/Plan (1) Acute hypoxic respiratory failure: (2) Acute pulmonary edema: (3) Acute systolic CHF (congestive heart failure): (4) HFrEF (heart failure with reduced ejection fraction): (5) NSTEMI (non-ST elevated myocardial infarction): (6) Cardiomyopathy: Plan Acute systolic heart failure exacerbation Acute pulmonary edema 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 Pt was initiated on GDMT, BB, hydralazine and Imdur due to renal failure, spironolactone. -SGLT2 not started due to renal failure. Can be re-visted later down the road/outpatient. -Ischemic workup as per cardiology. -Oxygen supplementation as needed -Monitor electrolytes while on diuretics -CPAP at night and as needed -Furosemide to be continued on hold until Monday with plans to restart at 40 mg twice daily given admission with CHF -Will plan to discharge tomorrow if renal function improved with plan for follow-up BMP in 5 to 7 days Afib with RVR- converted to NSR 04/16/24 New diagnosis of Afib -rate better controlled -Transitioned to oral Cardizem, also on Coreg. -Dose reduced today potential discontinuation if patient remains in sinus rhythm given cardiorenal syndrome -Started on Eliquis 2.5 mg BID -Continue on Amiodarone per cardio -Cardiology following -Cardiac monitoring YOJANA on CKD -Baseline seems around Cr. 1.8. -Nephro was consulted -Lasix on hold, as above -PT has Ruiz catheter for accurate output. -UA obtained, seems positive for UTI. Continue IV Rocephin to complete 5 days. -renal US > no mass or hydronephrosis. -Nephrology following, input appreciated. Diet: healthy heart DVT ppx: Eliquis Code status: Full Status: inpatient Discussed with patient and Rosalba at bedside. All questions answered. In agreement with the above plan Plan for MPI stress test part 2 today. Further input as per cardiology regardingnext steps. Wean off oxygen as tolerated Will need walk study on discharge Jersey Quigley MD Internal Medicine Hospitalist Attending Physician Documented By: Jn Yanes MD 04/17/24 1402 Signed By: 04/17/24 2105 [facility]02-27-2025 [place] [address] Cardiology Progress Note Signed Patient: Corwin Muller MR#: [id number] : 1945 Acct:[id number] Age/Sex: 79 / M Adm Date: 5 Loc: Room: [address] [place] [address] Type: ADM IN Attending Dr: Jn Yanes MD Copies to: ~ Date of Service: 04/18/2024 Subjective Principal diagnosis: Congestive heart failure/atrial fibrillation Interval history: No chest pain or shortness of breath. Converted to normal sinus rhythm. Stresstest shows LV systolic dysfunction and LAD ischemia. Kept on the hospital because of slight worsening of renal function Exam Physical Exam Vital Signs: Temp Pulse Resp BP Pulse Ox O2 Del Method O2 Flow Rate 97.8 F 60 16 122/71 93 L Room Air 2 04/18/24 08:00 04/18/24 08:00 04/18/24 08:00 04/18/24 08:00 04/18/24 08:00 04/18/24 08:00 04/16/24 16:00 FiO2 50 04/12/24 04:00 Eyes General: appearance normal, both eyes and all related structures Pupils: PERRL Neck Neck: normal visual inspection, supple and no lymphadenopathy noted Neck mass: No Thyroid: thyroid normal Carotids: normal carotid upstroke Chest Chest palpation & inspection: normal inspection of the chest Resp Auscultation: crackles, rales and rhonchi Cardio Palpation: normal PMI Rate: regular rate Rhythm: regular rhythm Heart Sounds: S1 normal, S2 normal and murmur systolic II/ and at the right sternal border Skin General: no rashes or lesions noted and dry skin Extrem General: full ROM, capillary refill normal and no clubbing, cyanosis or edema Objective Labs 04/17/24 03:25 04/17/24 03:25 Labs: Laboratory Results - last 24 hr 04/18/24 09:05 Ur Random Creatinine 84.00 Ur Random Sodium 32 A&P - Cardiology (1) NSTEMI (non-ST elevated myocardial infarction): Assessment/Problem Details: Troponin rise was just under 1000 pg/mL and was not associated with chest pain. Ejection fraction is severely reduced Code(s): I21.4 - Non-ST elevation (NSTEMI) myocardial infarction Plan Assessment 1. Presentation with acute pulmonary edema due to coronary artery disease improving. Patient is lying flat without shortness of breath 2. Large Non-ST elevation myocardial infarction stress test appears to be positive for anterior wall ischemia 3. Renal insufficiency with creatinine today 3.2 4. New onset atrial fibrillation with RVR back to normal sinus rhythm 5. Cardiomyopathy with LVEF based on my review in the range of 25-30%, ischemiccomponent need to beruled out Plan 1. Continue amiodarone and Eliquis 2. The results of the stress test reviewed with patient and his at great length. We discussed invasive evaluation at great length. Patient apprehensiveabout the risk of contrast-induced nephropathy in need for hemodialysis. We discussed limited of invasive evaluation versus conservative management following lengthy and extensive discussion more than 30 minutes the patient elected to continuewith medical therapy 3. Continue with aggressive approach to risk factor modification 4. Continue to optimize heart failure therapy with combination of beta-susie hydralazine and nitrate 5. I will stop diltiazem today in view of maintenance of sinus rhythm 6. Patient can be discharged home. Discharge medication were addressed Documented By: Mely Ken MD 04/18/24 1024 Signed By: 04/18/24 1026 [facility]02-26-2025 Progress note Author Felicia Aguilar [facility] Note Date/Time April 17, 2024 2:35pm [facility] [address] [place] [address] Nephrology Progress Note Signed Patient: Corwin Muller MR#: [id number] : 1945 Acct:[id number] Age/Sex: 79 / M Adm Date: 5 Loc: Room: [address] [place] [address] Type: ADM IN Attending Dr: Jn Yanes MD Copies to: ~ Date of Service: 04/17/2024 Subjective Subjective Narrative: This is an 79 yo male with PMHx of chronic kidney disease stage IIIb, hyperlipidemia, atrial tachycardia, hypertension and arthritis that was at his doctor's appointment for injections to his knees when his vitals were checked. He was sent to the emergency room due to heart rate in the 140s. He denied any symptoms whatsoever at that time. He was evaluated in the [facility] with EKG showing SVT and inverted T waves. He received diltiazem bolus and drip. Chest x-ray with bilateral interstitial infiltrates. He was given digoxin, Lasix, morphine and developed respiratory distress with oxygen sat 87% on 5 L nasal cannula. He was then placed on BiPAP and Ruiz was placed as well. No leukocytosis noted, BUN 29, creatinine 2.62, elevated troponin at 910 and BNP 8857. Patient was admitted for NSTEMI, CHF, and new onset A-fib. Echo showed EF 35 to 40% with moderate global hypokinesis of LV. Cardiology was consulted and recommended delaying ischemic evaluation after renal function has improved due to risk of contrast-induced nephropathy. He was started on GDMT forCHF including carvedilol, Imdur, hydralazine and Farxiga. Farxiga was stopped due to the hypotension. Nephrology was consulted due to YOJANA, fluid overload. INTERIM HISTORY Fadi. He is currently in sinus rhythm heart rate 65/min. 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 Patient is lying if he continues to be in sinus rhythm. Unfortunately, creatinine slightly up to 3.26 mg/dL today in the setting of diuretics and lower blood pressure on diltiazem that is being adjusted down by cardiology. He has no edema. No shortness of breath. No hyperkalemia or acidosis. Stress test showed low EF and LAD ischemia. Patient elected to continue conservative treatment only as he has a concern about contrast induced YOJANA. Exam Physical Exam Vital Signs: Temp Pulse Resp BP Pulse Ox O2 Del Method O2 Flow Rate 36.8 C 65 18 113/65 98 Room Air 2 04/17/24 08:46 04/17/24 13:00 04/17/24 13:00 04/17/24 13:00 04/17/24 13:00 04/17/24 13:00 04/16/24 16:00 FiO2 50 04/12/24 04:00 Narrative: Constitutional: Appears comfortable and not in distress HEENT: No pallor or Jaundice Cardiovascular: Irregular, normal S1-S2, no gallop or rub, No JVD Respiratory: Good bilateral air entry no wheezing or crackles Gastrointestinal: Soft, non tender, positive bowel sounds Extremities: No edema Skin: No rashes or bruises Musculoskeletal: No joints swellings or inflammation Neurology: Awake, alert, oriented ?3, No focal motor or sensory deficits Psych: Normal mood and affect Objective Intake and Output I&O: Intake & Output 04/14/24 04/15/24 04/16/24 04/17/24 23:59 23:59 23:59 23:59 Intake Total 1450 / 1450 1150 / 1150 1150 / 1150 650 / 650 Output Total 2900 / 2900 2250 / 2250 800 / 800 500 / 500 Balance -1450 / -1450 -1100 / -1100 350 / 350 150 / 150 Weight 111.1 kg 111.2 kg 110.5 kg Meds and Allergies Meds: Active Medications Acetaminophen (Acetaminophen 500 Mg Tablet) 1,000 mg PO Q6HR PRN PRN Reason: Pain Scale 1 - 3 or fever Stop: 04/10/25 04:04 Amiodarone HCl (Amiodarone 200 Mg Tablet) 200 mg PO TID [facility] Stop: 04/16/25 21:59 Last Admin: 04/17/24 09:34 Dose: 200 mg Apixaban (Apixaban 2.5 Mg Tablet) 2.5 mg PO BID [facility] Stop: 04/12/25 20:59 Last Admin: 04/17/24 09:34 Dose: 2.5 mg Aspirin (Aspirin 81 Mg Tablet.Dr) 81 mg PO DAILY [facility] Stop: 04/11/25 08:59 Last Admin: 04/17/24 09:34 Dose: 81 mg Diltiazem HCl (Diltiazem Cd.24hr 240 Mg Cap.Er.24h) 240 mg PO DAILY [facility] Stop: 04/17/25 08:59 Last Admin: 04/17/24 09:34 Dose: 240 mg Docusate Sodium (Docusate 100 Mg Capsule) 200 mg PO BID PRN PRN Reason: Constipation Stop: 04/15/25 11:55 Furosemide (Furosemide 40 Mg Tablet) 40 mg PO BID@0800,1600 [facility] Stop: 04/12/25 15:59 Last Admin: 04/17/24 09:34 Dose: 40 mg Hydralazine HCl (Hydralazine 25 Mg Tablet) 25 mg PO BID [facility] Stop: 04/12/25 20:59 Last Admin: 04/17/24 09:34 Dose: 25 mg Isosorbide Mononitrate (Isosorbide Mononitrate 24hr Er 30 Mg Tab.Er.24h) 30 mg PO DAILY.6A [facility] Stop: 04/13/25 05:59 Last Admin: 04/17/24 05:10 Dose: 30 mg Metoprolol Succinate (Metoprolol Succinate 50 Mg Tab.Er.24h) 50 mg PO BID [facility] Stop: 04/13/25 20:59 Last Admin: 04/17/24 09:34 Dose: 50 mg Morphine Sulfate (Morphine Sulfate 2 Mg/Ml Vial) 2 mg IV-PUSH Q4H PRN PRN Reason: Pain Scale 8 - 10 Ondansetron HCl (Ondansetron 4 Mg/2 Ml Vial) 4 mg IV-PUSH Q6H PRN PRN Reason: Nausea And Vomiting Stop: 04/10/25 04:04 Potassium Chloride (Potassium Chloride Er 20 Meq Tab.Er.Prt) 20 meq PO DAILY [facility] Stop: 04/13/25 08:59 Last Admin: 04/17/24 09:34 Dose: 20 meq Sennosides (Sennosides Syrup 8.8 Mg/5 Ml Udc) 17.6 mg PO HS [facility] Stop: 04/15/25 21:59 Last Admin: 04/17/24 07:25 Dose: Not Given Sodium Chloride (Sodium Chloride 0.9 % 10 Ml Syringe) 0 ml IV-PUSH QSHIFT [facility] Stop: 04/10/25 05:59 Last Admin: 04/17/24 07:25 Dose: Not Given Sodium Chloride (Sodium Chloride 0.9 % 10 Ml Syringe) 0 ml IV-PUSH PRN PRN PRN Reason: Flush Stop: 04/15/25 13:36 Last Admin: 04/15/24 14:00 Dose: 30 ml Spironolactone (Spironolactone 12.5 Mg Tablet) 12.5 mg PO DAILY [facility] Stop: 04/12/25 19:59 Last Admin: 04/17/24 09:34 Dose: 12.5 mg Allergies No Known Allergies Allergy (Verified 04/09/24 14:28) Results - Nephrology Labs 04/17/24 03:25 04/17/24 03:25 Labs: 04/17/24 03:25 BUN 53 H Creatinine 3.26 H D Phosphorus 4.4 Albumin 3.7 Radiology Impressions Impressions - last 24 hours: Any impression(s) listed above is documentation that was entered by the reading physician into a diagnostic report(s) for Corwin Muller. I have reviewed the report(s) and am incorporating any findings in the treatment plan of this patient where applicable. A&P - Nephrology Assessment/Plan (1) Acute kidney injury superimposed on CKD: Assessment/Problem Details: YOJANA on CKD due to cardiorenal syndrome in setting of A-fib with RVR and acute CHF exacerbation. He has no evidence of obstructive uropathy on renal ultrasound. (2) NSTEMI (non-ST elevated myocardial infarction): Assessment/Problem Details: Patient was admitted for [place] and his echocardiogram showed EF 35 to 40%. He is currently on aspirin and carvedilol. Cardiology is following the patient and have ordered stress test. (3) CKD (chronic kidney disease) stage 3, GFR 30-59 ml/min: Assessment/Problem Details: He has a longstanding CKD due to the hypertension baseline serum creatinine was was reported 1.8 mg/dL. Patient was following with the PCP for CKD care. (4) Paroxysmal atrial fibrillation with RVR: Assessment/Problem Details: Cardiology following, on heparin, amiodarone, metoprolol, diltiazem, aspirin. (5) Acute hypoxic respiratory failure: Assessment/Problem Details: Acute hypoxic respiratory failure due to CHF exacerbation and A-fib RVR. (6) Acute systolic CHF (congestive heart failure): Assessment/Problem Details: EF 35 to 40%. On goal-directed medical therapy per cardiology. Cardiology following, on hydralazine, isosorbide, Lasix. Holding off on SGLT2 inhibitor due to renal dysfunction. (7) UTI (urinary tract infection): Assessment/Problem Details: Patient on ceftriaxone. (8) Hypertension: Assessment/Problem Details: His blood pressure is within the goal. Plan * Creatinine has increased today up to 3.2 mg/dL in the setting of diuresis and low blood pressure. Patient on diltiazem that was decreased to 240 mg daily today. Will hold furosemide till Monday morning and restart at 40 mg twice a day to avoid recurrent CHF. * Continue spironolactone 12.5 mg daily for low EF that can be increased as tolerated. * I had a long discussion with the patient and his today. Although he elected to go conservative treatment for non-STEMI for concern about contrast- induced nephropathy, renal function may continue to tolerate considering the low EF and ischemic heart disease. Different form of dialysis has been discussed with the patient his room and he will walk the bradycardia for dialysis before discharge. * Monitor daily weight, urine output and renal panel. patient has cardiorenal syndrome and diuretics is needed for low EF and recurrent CHF. Creatinine is up to 3.26 mg/dL today for multiple goal-directed medical therapy for CHF including diuretics. Diltiazem was decreased today by Dr. Ken with the plan to stop if patient's continue to be in sinus rhythm. Furosemide will be held for 2 days and restarted on Monday. If renal function stable or start to be better by tomorrow, patient is can be discharged to his home or rehab with follow-up lab in 5 to 7 days. He understand that dialysis may be needed later on. Documented By: Felicia Aguilar MD 04/17/24 1426 Signed By: <Electronically signed by MD Felicia Aguilar> 04/17/24 1430 [facility] Work Phone: [phone]) 259-148302-26-2025 [place] [address] Nephrology Progress Note Signed Patient: Corwin Muller MR#: [id number] : 1945 Acct:[id number] Age/Sex: 79 / M Adm Date: 5 Loc: Room: [address] [place] [address] Type: ADM IN Attending Dr: Jn Yanes MD Copies to: ~ Date of Service: 04/17/2024 Subjective Subjective Narrative: This is an 79 yo male with PMHx of chronic kidney disease stage IIIb, hyperlipidemia, atrial tachycardia, hypertension and arthritis that was at his doctor's appointment for injections to his knees when his vitals were checked. He was sent to the emergency room due to heart rate in the 140s. He denied any symptoms whatsoever at that time. He was evaluated in the [facility] with EKG showingSVT and inverted T waves. He received diltiazem bolus and drip. Chest x-ray with bilateral interstitial infiltrates. He was given digoxin, Lasix, morphine and developed respiratory distress with oxygen sat 87% on 5 L nasal cannula. He was then placed on BiPAP and Ruiz was placed as well. No leukocytosis noted, BUN 29, creatinine 2.62, elevated troponin at 910 and BNP 8857. Patient was admitted for NSTEMI, CHF, and new onset A-fib. Echo showed EF 35 to 40% with moderate global hypokinesis of LV. Cardiology was consulted and recommended delaying ischemic evaluation after renal function has improved due to risk of contrast-induced nephropathy. He was started on GDMT forCHF including carvedilol, Imdur, hydralazine and Farxiga. Farxiga was stopped due to the hypotension. Nephrology was consulted due to YOJANA, fluid overload. INTERIM HISTORY Fadi. He is currently in sinus rhythm heart rate 65/min. Diltiazem was decreased to 240 mg by hiscardiologist with the plan. Patient is lying if he continues to be in sinus rhythm. Unfortunately, creatinine slightly up to 3.26 mg/dL today in the setting of diuretics and lower blood pressure on diltiazem that is being adjusted down by cardiology. He has no edema. No shortness of breath. No hyperkalemia or acidosis. Stress test showed low EF and LAD ischemia. Patient elected to continue conservative treatment onlyas he has a concern about contrast induced YOJANA. Exam Physical Exam Vital Signs: Temp Pulse Resp BP Pulse Ox O2 Del Method O2 Flow Rate 36.8 C 65 18 113/65 98 Room Air 2 04/17/24 08:46 04/17/24 13:00 04/17/24 13:00 04/17/24 13:00 04/17/24 13:00 04/17/24 13:00 04/16/24 16:00 FiO2 50 04/12/24 04:00 Narrative: Constitutional: Appears comfortable and not in distress HEENT: No pallor or Jaundice Cardiovascular: Irregular, normal S1-S2, no gallop or rub, No JVD Respiratory: Good bilateral air entry no wheezing or crackles Gastrointestinal: Soft, non tender, positive bowel sounds Extremities: No edema Skin: No rashes or bruises Musculoskeletal: No joints swellings or inflammation Neurology: Awake, alert, oriented ?3, No focal motor or sensory deficits Psych: Normal mood and affect Objective Intake and Output I&O: Intake & Output 04/14/24 04/15/24 04/16/24 04/17/24 23:59 23:59 23:59 23:59 Intake Total 1450 / 1450 1150 / 1150 1150 / 1150 650 / 650 Output Total 2900 / 2900 2250 / 2250 800 / 800 500 / 500 Balance -1450 / -1450 -1100 / -1100 350 / 350 150 / 150 Weight 111.1 kg 111.2 kg 110.5 kg Meds and Allergies Meds: Active Medications Acetaminophen (Acetaminophen 500 Mg Tablet) 1,000 mg PO Q6HR PRN PRN Reason: Pain Scale 1 - 3 or fever Stop: 04/10/25 04:04 Amiodarone HCl (Amiodarone 200 Mg Tablet) 200 mg PO TID [facility] Stop: 04/16/25 21:59 Last Admin: 04/17/24 09:34 Dose: 200 mg Apixaban (Apixaban 2.5 Mg Tablet) 2.5 mg PO BID [facility] Stop: 04/12/25 20:59 Last Admin: 04/17/24 09:34 Dose: 2.5 mg Aspirin (Aspirin 81 Mg Tablet.Dr) 81 mg PO DAILY [facility] Stop: 04/11/25 08:59 Last Admin: 04/17/24 09:34 Dose: 81 mg Diltiazem HCl (Diltiazem Cd.24hr 240 Mg Cap.Er.24h) 240 mg PO DAILY [facility] Stop: 04/17/25 08:59 Last Admin: 04/17/24 09:34 Dose: 240 mg Docusate Sodium (Docusate 100 Mg Capsule) 200 mg PO BID PRN PRN Reason: Constipation Stop: 04/15/25 11:55 Furosemide (Furosemide 40 Mg Tablet) 40 mg PO BID@0800,1600 [facility] Stop: 04/12/25 15:59 Last Admin: 04/17/24 09:34 Dose: 40 mg Hydralazine HCl (Hydralazine 25 Mg Tablet) 25 mg PO BID [facility] Stop: 04/12/25 20:59 Last Admin: 04/17/24 09:34 Dose: 25 mg Isosorbide Mononitrate (Isosorbide Mononitrate 24hr Er 30 Mg Tab.Er.24h) 30 mg PO DAILY.6A [facility] Stop: 04/13/25 05:59 Last Admin: 04/17/24 05:10 Dose: 30 mg Metoprolol Succinate (Metoprolol Succinate 50 Mg Tab.Er.24h) 50 mg PO BID [facility] Stop: 04/13/25 20:59 Last Admin: 04/17/24 09:34 Dose: 50 mg Morphine Sulfate (Morphine Sulfate 2 Mg/Ml Vial) 2 mg IV-PUSH Q4H PRN PRN Reason: Pain Scale 8 - 10 Ondansetron HCl (Ondansetron 4 Mg/2 Ml Vial) 4 mg IV-PUSH Q6H PRN PRN Reason: Nausea And Vomiting Stop: 04/10/25 04:04 Potassium Chloride (Potassium Chloride Er 20 Meq Tab.Er.Prt) 20 meq PO DAILY [facility] Stop: 04/13/25 08:59 Last Admin: 04/17/24 09:34 Dose: 20 meq Sennosides (Sennosides Syrup 8.8 Mg/5 Ml Udc) 17.6 mg PO HS [facility] Stop: 04/15/25 21:59 Last Admin: 04/17/24 07:25 Dose: Not Given Sodium Chloride (Sodium Chloride 0.9 % 10 Ml Syringe) 0 ml IV-PUSH QSHIFT [facility] Stop: 04/10/25 05:59 Last Admin: 04/17/24 07:25 Dose: Not Given Sodium Chloride (Sodium Chloride 0.9 % 10 Ml Syringe) 0 ml IV-PUSH PRN PRN PRN Reason: Flush Stop: 04/15/25 13:36 Last Admin: 04/15/24 14:00 Dose: 30 ml Spironolactone (Spironolactone 12.5 Mg Tablet) 12.5 mg PO DAILY [facility] Stop: 04/12/25 19:59 Last Admin: 04/17/24 09:34 Dose: 12.5 mg Allergies No Known Allergies Allergy (Verified 04/09/24 14:28) Results - Nephrology Labs 04/17/24 03:25 04/17/24 03:25 Labs: 04/17/24 03:25 BUN 53 H Creatinine 3.26 H D Phosphorus 4.4 Albumin 3.7 Radiology Impressions Impressions - last 24 hours: Any impression(s) listed above is documentation that was entered by the reading physician into a diagnostic report(s) for Corwin Muller. I have reviewed the report(s) and am incorporating anyfindings in the treatment plan of this patient where applicable. A&P - Nephrology Assessment/Plan (1) Acute kidney injury superimposed on CKD: Assessment/Problem Details: YOJANA on CKD due to cardiorenal syndrome in setting of A-fib with RVR and acute CHF exacerbation. He has no evidence of obstructive uropathy on renal ultrasound. (2) NSTEMI (non-ST elevated myocardial infarction): Assessment/Problem Details: Patient was admitted for [place] and his echocardiogram showed EF 35 to 40%. He is currently on aspirin and carvedilol. Cardiology is following the patient and have ordered stress test. (3) CKD (chronic kidney disease) stage 3, GFR 30-59 ml/min: Assessment/Problem Details: He has a longstanding CKD due to the hypertension baseline serum creatinine was was reported 1.8 mg/dL. Patient was following with the PCP for CKD care. (4) Paroxysmal atrial fibrillation with RVR: Assessment/Problem Details: Cardiology following, on heparin, amiodarone, metoprolol, diltiazem, aspirin. (5) Acute hypoxic respiratory failure: Assessment/Problem Details: Acute hypoxic respiratory failure due to CHF exacerbation and A-fib RVR. (6) Acute systolic CHF (congestive heart failure): Assessment/Problem Details: EF 35 to 40%. On goal-directed medical therapy per cardiology. Cardiology following, on hydralazine, isosorbide, Lasix. Holding off on SGLT2 inhibitor due to renal dysfunction. (7) UTI (urinary tract infection): Assessment/Problem Details: Patient on ceftriaxone. (8) Hypertension: Assessment/Problem Details: His blood pressure is within the goal. Plan * Creatinine has increased today up to 3.2 mg/dL in the setting of diuresis and low blood pressure.Patient on diltiazem that was decreased to 240 mg daily today. Will hold furosemide till Monday morning and restart at 40 mg twice a day to avoid recurrent CHF. * Continue spironolactone 12.5 mg daily for low EF that can be increased as tolerated. * I had a long discussion with the patient and his today. Although he elected to go conservative treatment for non-STEMI for concern about contrast- induced nephropathy, renal function may continue to tolerate considering the low EF and ischemic heart disease. Different form of dialysis has been discussed with the patient his room and he will walk the bradycardia for dialysis before discharge. * Monitor daily weight, urine output and renal panel. patient has cardiorenal syndrome and diuretics is needed for low EF and recurrent CHF. Creatinine is up to 3.26 mg/dL today for multiple goal-directed medical therapy for CHF including diuretics. Diltiazem was decreased today by Dr. Ken with the plan to stop if patient's continue to be in sinus rhythm. Furosemide will be held for 2 days and restarted on Monday. If renal function stable or start to be better by tomorrow, patient is can be discharged to his home or rehab with follow-up labin 5 to 7 days. He understand that dialysis may be needed later on. Documented By: Felicia Aguilar MD 04/17/24 1426 Signed By: 04/17/24 1435 [facility]02-26-2025 Progress note Author Mely Ken [facility] Note Date/Time April 17, 2024 12:13pm [facility] [address] [place] [address] Cardiology Progress Note Signed Patient: Corwin Muller MR#: [id number] : 1945 Acct:[id number] Age/Sex: 79 / M Adm Date: 5 Loc: Room: [address] [place] [address] Type: ADM IN Attending Dr: Jn Yanes MD Copies to: ~ Date of Service: 04/17/2024 Subjective Principal diagnosis: Congestive heart failure/atrial fibrillation Interval history: No chest pain or shortness of breath. Converted to normal sinus rhythm. Stresstest shows LV systolic dysfunction and LAD ischemia Exam Physical Exam Vital Signs: Temp Pulse Resp BP Pulse Ox O2 Del Method O2 Flow Rate 98.2 F 59 L 16 123/73 93 L Room Air 2 04/17/24 08:46 04/17/24 08:46 04/17/24 08:46 04/17/24 08:46 04/17/24 08:46 04/17/24 08:46 04/16/24 16:00 FiO2 50 04/12/24 04:00 Eyes General: appearance normal, both eyes and all related structures Pupils: PERRL Neck Neck: normal visual inspection, supple and no lymphadenopathy noted Neck mass: No Thyroid: thyroid normal Carotids: normal carotid upstroke Chest Chest palpation & inspection: normal inspection of the chest Resp Auscultation: crackles, rales and rhonchi Cardio Palpation: normal PMI Rate: regular rate Rhythm: regular rhythm Heart Sounds: S1 normal, S2 normal and murmur systolic II/ and at the right sternal border GI Palpation: soft and no hepatosplenomegaly Percussion: normal to percussion Auscultation: normal bowel sounds Skin General: no rashes or lesions noted and dry skin Extrem General: full ROM, capillary refill normal and no clubbing, cyanosis or edema Objective Labs 04/17/24 03:25 04/17/24 03:25 Labs: Laboratory Results - last 24 hr 04/17/24 03:25 Corrected WBC 10.0 RBC 4.80 Hgb 14.5 Hct 42.0 MCV 87.5 MCH 30.2 MCHC 34.5 RDW 14.7 Plt Count 283 MPV 7.6 PHA Creatinine Clear 24.61 Sodium 137 Potassium 4.3 Chloride 103 Carbon Dioxide 25.0 Anion Gap 13.3 BUN 53 H Creatinine 3.26 H D Est GFR (CKD-EPI) 18.426 Glucose 100 Calcium 9.4 Phosphorus 4.4 Albumin 3.7 A&P - Cardiology (1) NSTEMI (non-ST elevated myocardial infarction): Code(s): I21.4 - Non-ST elevation (NSTEMI) myocardial infarction Plan Assessment 1. Presentation with acute pulmonary edema due to coronary artery disease improving. Patient is lying flat without shortness of breath 2. Large Non-ST elevation myocardial infarction stress test appears to be positive for anterior wall ischemia 3. Renal insufficiency with creatinine 2.6 unclear whether it is acute on chronic 4. New onset atrial fibrillation with RVR back to normal sinus rhythm 5. Cardiomyopathy with LVEF based on my review in the range of 25-30%, ischemiccomponent need to be ruled out Plan 1. Continue amiodarone and Eliquis 2. The results of the stress test reviewed with patient and his at great length. We discussed invasive evaluation at great length. Patient apprehensiveabout the risk of contrast-induced nephropathy in need for hemodialysis. We discussed limited of invasive evaluation versus conservative management following lengthy and extensive discussion more than 30 minutes the patient elected to continue with medical therapy 3. Continue with aggressive approach to risk factor modification 4. Continue to optimize heart failure therapy with combination of beta-susie hydralazine and nitrate 5. If remain in sinus rhythm we will can gradually wean off oral diltiazem and gradually uptitrate beta-susie to optimize treatment for heart failure and coronary artery disease 6. Patient can be discharged home. Discharge medication were addressed Documented By: Mely Ken MD 04/17/24 1210 Signed By: <Electronically signed by MD Mely Ken> 04/17/24 1213 [facility] Work Phone: [phone]) 405-447702-26-2025 [place] [id number] Cardiology Progress Note Signed Patient: Corwin Muller MR#: [id number] : 1945 Acct:[id number] Age/Sex: 79 / M Adm Date: 5 Loc: 4 Room: [address] [place] [address] Type: ADM IN Attending Dr: Jn Yanes MD Copies to: ~ Date of Service: 04/17/2024 Subjective Principal diagnosis: Congestive heart failure/atrial fibrillation Interval history: No chest pain or shortness of breath. Converted to normal sinus rhythm. Stresstest shows LV systolic dysfunction and LAD ischemia Exam Physical Exam Vital Signs: Temp Pulse Resp BP Pulse Ox O2 Del Method O2 Flow Rate 98.2 F 59 L 16 123/73 93 L Room Air 2 04/17/24 08:46 04/17/24 08:46 04/17/24 08:46 04/17/24 08:46 04/17/24 08:46 04/17/24 08:46 04/16/24 16:00 FiO2 50 04/12/24 04:00 Eyes General: appearance normal, both eyes and all related structures Pupils: PERRL Neck Neck: normal visual inspection, supple and no lymphadenopathy noted Neck mass: No Thyroid: thyroid normal Carotids: normal carotid upstroke Chest Chest palpation & inspection: normal inspection of the chest Resp Auscultation: crackles, rales and rhonchi Cardio Palpation: normal PMI Rate: regular rate Rhythm: regular rhythm Heart Sounds: S1 normal, S2 normal and murmur systolic II/ and at the right sternal border GI Palpation: soft and no hepatosplenomegaly Percussion: normal to percussion Auscultation: normal bowel sounds Skin General: no rashes or lesions noted and dry skin Extrem General: full ROM, capillary refill normal and no clubbing, cyanosis or edema Objective Labs 04/17/24 03:25 04/17/24 03:25 Labs: Laboratory Results - last 24 hr 04/17/24 03:25 Corrected WBC 10.0 RBC 4.80 Hgb 14.5 Hct 42.0 MCV 87.5 MCH 30.2 MCHC 34.5 RDW 14.7 Plt Count 283 MPV 7.6 PHA Creatinine Clear 24.61 Sodium 137 Potassium 4.3 Chloride 103 Carbon Dioxide 25.0 Anion Gap 13.3 BUN 53 H Creatinine 3.26 H D Est GFR (CKD-EPI) 18.426 Glucose 100 Calcium 9.4 Phosphorus 4.4 Albumin 3.7 A&P - Cardiology (1) NSTEMI (non-ST elevated myocardial infarction): Code(s): I21.4 - Non-ST elevation (NSTEMI) myocardial infarction Plan Assessment 1. Presentation with acute pulmonary edema due to coronary artery disease improving. Patient is lying flat without shortness of breath 2. Large Non-ST elevation myocardial infarction stress test appears to be positive for anterior wall ischemia 3. Renal insufficiency with creatinine 2.6 unclear whether it is acute on chronic 4. New onset atrial fibrillation with RVR back to normal sinus rhythm 5. Cardiomyopathy with LVEF based on my review in the range of 25-30%, ischemiccomponent need to beruled out Plan 1. Continue amiodarone and Eliquis 2. The results of the stress test reviewed with patient and his at great length. We discussed invasive evaluation at great length. Patient apprehensiveabout the risk of contrast-induced nephropathy in need for hemodialysis. We discussed limited of invasive evaluation versus conservative management following lengthy and extensive discussion more than 30 minutes the patient elected to continuewith medical therapy 3. Continue with aggressive approach to risk factor modification 4. Continue to optimize heart failure therapy with combination of beta-susie hydralazine and nitrate 5. If remain in sinus rhythm we will can gradually wean off oral diltiazem and gradually uptitrate beta-susie to optimize treatment for heart failure and coronary artery disease 6. Patient can be discharged home. Discharge medication were addressed Documented By: Mely Ken MD 04/17/24 1210 Signed By: 04/17/24 1213 [facility]02-25-2025 Progress note Author Felicia Aguilar [facility] Note Date/Time April 16, 2024 4:47pm [facility] [address] [place] [address] Nephrology Progress Note Signed Patient: Corwin Muller MR#: [id number] : 1945 Acct:[id number] Age/Sex: 79 / M Adm Date: 5 Loc: 4 Room: [id number] Type: ADM IN Attending Dr: Jersey Bess MD Copies to: ~ Date of Service: 04/16/2024 Subjective Subjective Narrative: This is an 79 yo male with PMHx of chronic kidney disease stage IIIb, hyperlipidemia, atrial tachycardia, hypertension and arthritis that was at his doctor's appointment for injections to his knees when his vitals were checked. He was sent to the emergency room due to heart rate in the 140s. He denied any symptoms whatsoever at that time. He was evaluated in the [facility] with EKG showing SVT and inverted T waves. He received diltiazem bolus and drip. Chest x-ray with bilateral interstitial infiltrates. He was given digoxin, Lasix, morphine and developed respiratory distress with oxygen sat 87% on 5 L nasal cannula. He was then placed on BiPAP and Ruiz was placed as well. No leukocytosis noted, BUN 29, creatinine 2.62, elevated troponin at 910 and BNP 8857. Patient was admitted for NSTEMI, CHF, and new onset A-fib. Echo showed EF 35 to 40% with moderate global hypokinesis of LV. Cardiology was consulted and recommended delaying ischemic evaluation after renal function has improved due to risk of contrast-induced nephropathy. He was started on GDMT forCHF including carvedilol, Imdur, hydralazine and Farxiga. Farxiga was stopped due to the hypotension. Nephrology was consulted due to YOJANA, fluid overload. INTERIM HISTORY Patient was seen and examined bedside. Patient feels comfortable with no more shortness of breath. Diuretics was switched to oral Lasix 40 mg twice a day per Dr. Monroy. He still on spironolactone. Renal function stabilized with serum creatinine higher than baseline with diuresis. No acidosis or hyperkalemia. He has YOJANA on CKD likely due to cardiorenal syndrome. Patient on Cardizem for A-fib. Pulse is back to sinus rhythm with rate down to 52/min however he is continue to have intermittent A-fib. Plan stress test t was suggestive of anterior wall ischemia. Patient has cardiomyopathy with left ventricular EF 25 to 30%. Exam Physical Exam Vital Signs: Temp Pulse Resp BP Pulse Ox O2 Del Method O2 Flow Rate 36.7 C 52 L 18 104/62 95 Nasal Cannula 2 04/16/24 15:49 04/16/24 15:49 04/16/24 15:49 04/16/24 15:49 04/16/24 15:49 04/16/24 15:49 04/16/24 12:00 FiO2 50 04/12/24 04:00 Narrative: Constitutional: Appears comfortable and not in distress HEENT: No pallor or Jaundice Cardiovascular: Irregular, normal S1-S2, no gallop or rub, No JVD Respiratory: Good bilateral air entry no wheezing or crackles Gastrointestinal: Soft, non tender, positive bowel sounds Extremities: No edema Skin: No rashes or bruises Musculoskeletal: No joints swellings or inflammation Neurology: Awake, alert, oriented ?3, No focal motor or sensory deficits Psych: Normal mood and affect Objective Intake and Output I&O: Intake & Output 04/13/24 04/14/24 04/15/24 04/16/24 23:59 23:59 23:59 23:59 Intake Total 1050 / 1050 1450 / 1450 1150 / 1150 Output Total 2935 / 2935 2900 / 2900 2250 / 2250 200 / 200 Balance -1885 / -1885 -1450 / -1450 -1100 / -1100 -200 / -200 Weight 112.4 kg 111.1 kg 111.2 kg 110.5 kg Meds and Allergies Meds: Active Medications Acetaminophen (Acetaminophen 500 Mg Tablet) 1,000 mg PO Q6HR PRN PRN Reason: Pain Scale 1 - 3 or fever Stop: 04/10/25 04:04 Amiodarone HCl (Amiodarone 200 Mg Tablet) 200 mg PO TID [facility] Stop: 04/16/25 21:59 Apixaban (Apixaban 2.5 Mg Tablet) 2.5 mg PO BID [facility] Stop: 04/12/25 20:59 Last Admin: 04/16/24 08:56 Dose: 2.5 mg Aspirin (Aspirin 81 Mg Tablet.) 81 mg PO DAILY [facility] Stop: 04/11/25 08:59 Last Admin: 04/16/24 08:56 Dose: 81 mg Diltiazem HCl (Diltiazem Cd.24hr 240 Mg Cap.Er.24h) 240 mg PO DAILY [facility] Stop: 04/17/25 08:59 Docusate Sodium (Docusate 100 Mg Capsule) 200 mg PO BID PRN PRN Reason: Constipation Stop: 04/15/25 11:55 Furosemide (Furosemide 40 Mg Tablet) 40 mg PO BID@0800,1600 [facility] Stop: 04/12/25 15:59 Last Admin: 04/16/24 15:48 Dose: 40 mg Hydralazine HCl (Hydralazine 25 Mg Tablet) 25 mg PO BID [facility]ES[facility] Stop: 04/12/25 20:59 Last Admin: 04/16/24 08:56 Dose: 25 mg Isosorbide Mononitrate (Isosorbide Mononitrate 24hr Er 30 Mg Tab.Er.24h) 30 mg PO DAILY.6A BLESSING Stop: 04/13/25 05:59 Last Admin: 04/16/24 06:28 Dose: 30 mg Metoprolol Succinate (Metoprolol Succinate 50 Mg Tab.Er.24h) 50 mg PO BID BLESSING Stop: 04/13/25 20:59 Last Admin: 04/16/24 08:56 Dose: 50 mg Morphine Sulfate (Morphine Sulfate 2 Mg/Ml Vial) 2 mg IV-PUSH Q4H PRN PRN Reason: Pain Scale 8 - 10 Ondansetron HCl (Ondansetron 4 Mg/2 Ml Vial) 4 mg IV-PUSH Q6H PRN PRN Reason: Nausea And Vomiting Stop: 04/10/25 04:04 Potassium Chloride (Potassium Chloride Er 20 Meq Tab.Er.Prt) 20 meq PO DAILY BLESSING Stop: 04/13/25 08:59 Last Admin: 04/16/24 08:56 Dose: 20 meq Sennosides (Sennosides Syrup 8.8 Mg/5 Ml Udc) 17.6 mg PO HS [facility] Stop: 04/15/25 21:59 Last Admin: 04/15/24 22:35 Dose: Not Given Sodium Chloride (Sodium Chloride 0.9 % 10 Ml Syringe) 0 ml IV-PUSH QSHIFT BLESSING Stop: 04/10/25 05:59 Last Admin: 04/16/24 14:14 Dose: Not Given Sodium Chloride (Sodium Chloride 0.9 % 10 Ml Syringe) 0 ml IV-PUSH PRN PRN PRN Reason: Flush Stop: 04/15/25 13:36 Last Admin: 04/15/24 14:00 Dose: 30 ml Spironolactone (Spironolactone 12.5 Mg Tablet) 12.5 mg PO DAILY BLESSING Stop: 04/12/25 19:59 Last Admin: 04/16/24 08:56 Dose: 12.5 mg Allergies No Known Allergies Allergy (Verified 04/09/24 14:28) Results - Nephrology Labs 04/16/24 04:50 04/16/24 04:50 Labs: 04/16/24 04:50 BUN 42 H Creatinine 2.68 H Phosphorus 3.6 Albumin 3.6 Radiology Impressions Impressions - last 24 hours: Any impression(s) listed above is documentation that was entered by the reading physician into a diagnostic report(s) for Corwin Muller. I have reviewed the report(s) and am incorporating any findings in the treatment plan of this patient where applicable. A&P - Nephrology Assessment/Plan (1) Acute kidney injury superimposed on CKD: Assessment/Problem Details: YOJANA on CKD due to cardiorenal syndrome in setting of A-fib with RVR and acute CHF exacerbation. He has no evidence of obstructive uropathy on renal ultrasound. (2) NSTEMI (non-ST elevated myocardial infarction): Assessment/Problem Details: Patient was admitted for [place] and his echocardiogram showed EF 35 to 40%. He is currently on aspirin and carvedilol. Cardiology is following the patient and have ordered stress test. (3) CKD (chronic kidney disease) stage 3, GFR 30-59 ml/min: Assessment/Problem Details: He has a longstanding CKD due to the hypertension baseline serum creatinine was was reported 1.8 mg/dL. Patient was following with the PCP for CKD care. (4) Paroxysmal atrial fibrillation with RVR: Assessment/Problem Details: Cardiology following, on heparin, amiodarone, metoprolol, diltiazem, aspirin. (5) Acute hypoxic respiratory failure: Assessment/Problem Details: Acute hypoxic respiratory failure due to CHF exacerbation and A-fib RVR. (6) Acute systolic CHF (congestive heart failure): Assessment/Problem Details: EF 35 to 40%. On goal-directed medical therapy per cardiology. Cardiology following, on hydralazine, isosorbide, Lasix. Holding off on SGLT2 inhibitor due to renal dysfunction. (7) UTI (urinary tract infection): Assessment/Problem Details: Patient on ceftriaxone. (8) Hypertension: Assessment/Problem Details: His blood pressure is within the goal. Plan * Continue oral furosemide 40 mg twice a day. Although creatinine is up to 2.6 mg/dL, diuretics as needed to avoid recurrent CHF. * Continue spironolactone 12.5 mg daily for low EF that can be increased as tolerated. * Ruiz catheter was removed yesterday. Patient is breathing comfortably. * Monitor daily weight, urine output and renal panel. Results of stress test was discussed with the patient by his automotive alignment specialist. Ideally he should have invasive evaluation however patient is apprehensive of risk of contrast-induced nephropathy and need for hemodialysis. Patient is currently on aggressive medical treatment and risk factor modifications. He hasmild bradycardia on diltiazem that will be stopped by cardiology if he stay and sinus rhythm. Otherwise, patient is stable from discharge from renal point of view. However creatinine is acceptable at this point since patient has cardiorenal syndrome and diuretics is needed for low EF and recurrent CHF. Patient is being evaluated for rehab. Documented By: Felicia Aguilar MD 04/16/24 1638 Signed By: <Electronically signed by MD Felicia Aguilar> 04/16/24 3061 [facility] Work Phone: 1([phone] Consult note Author Luis Patel [facility] Note Date/Time April 16, 2024 2:53pm [facility] [address] [place] [address] Physiatry (Rehab) Consult Note Signed Patient: Corwin Muller MR#: [id number] : 1945 Acct:[id number] Age/Sex: 79 / M Adm Date: 5 Loc: Room: [address] [place] [address] Type: ADM IN Attending Dr: Jersey Bess MD Copies to: DO Luis Johansen MD Obaydah M Daromar, MD~ Etiologic Dx/Impairment Group Narrative Narrative: Cardiac HPI Consult Date: 04/16/24 Requesting Physician: Jersey Bess MD Primary Care Provider: Ranjan Lomas DO Consult Narrative Reason for consult: Postacute care planning HPI: Mr. Muller is a 79 year old male With history of atrial tachycardia , CKD, hyperlipidemia, hypertension, bilateral knee osteoarthritis presenting with multifactorial functional decline in setting of NSTEMI, acute renal failure, pulmonary edema, cardiomyopathy with EF 25 to 35%. Clinical course reviewed including results of perfusion study yesterday. We discussed at length role of inpatient rehab and cardiac conditions depending on debility/endurance level and generalized weakness. He and his , who is at the bedside, reports that he was able to ambulate into the bathroom today with no assistive device. They feel that they can manage independently at discharge. We talked about home health care which they will likely decline, but they are open to outpatient cardiac rehab if needed. Review of Systems Review of Systems All other systems reviewed & are negative unless noted below or in HPI [facility] Medical History Atrial tachycardia Lumbar spondylosis Hyperlipidemia type II Primary osteoarthritis of right knee Primary osteoarthritis of left knee Knee pain Hypertension Elevated cholesterol Surgical History H/O hernia repair Family History Father 67 yrs Aortic aneurysm and dissection Mother 90 yrs History of stroke Legacy FamHx Problem: Diagnosed with Stroke Stroke Brother Diabetes Had multiple health problems Brother Parkinson disease Social History Smoking Status: Never smoker Substance Use Type: Alcohol (rarely) Meds Medications and Allergies Allergies No Known Allergies Allergy (Verified 04/09/24 14:28) Home Medications atorvastatin 10 mg tablet 10 mg PO DAILY 06/27/23 [History Confirmed 04/09/24] multivitamin 1 tab PO DAILY 06/27/23 [History Confirmed 04/09/24] amlodipine 10 mg tablet See Rx Instructions .Route .COMPLEX #90 tabs 12/15/23 [Rx Confirmed 04/10/24] amiodarone 200 mg tablet 200 mg PO TID 30 days #42 tabs 04/16/24 [Rx] apixaban 2.5 mg tablet (Eliquis) 2.5 mg PO BID 30 days #60 tabs 04/16/24 [Rx] aspirin 81 mg tablet,delayed release 81 mg PO DAILY 30 days #30 tabs 04/16/24 [Rx] diltiazem HCl 240 mg capsule,extended release 24 hr 240 mg PO DAILY 30 days #30 caps 04/16/24 [Rx] isosorbide mononitrate 30 mg tablet,extended release 24 hr 30 mg PO DAILY.6A 30 days #30 tabs 04/16/24 [Rx] metoprolol succinate 50 mg tablet,extended release 24 hr 50 mg PO BID 30 days #60 tabs 04/16/24 [Rx] spironolactone 25 mg tablet 12.5 mg (1/2 x 25 mg) PO DAILY 30 days #15 tabs 04/16/24 [Rx] Exam Physical Exam Vital Signs: Temp Pulse Resp BP Pulse Ox O2 Del Method O2 Flow Rate 97.6 F 59 L 16 97/56 L 95 Nasal Cannula 2 04/15/24 20:52 04/16/24 12:00 04/16/24 12:00 04/16/24 12:00 04/16/24 12:00 04/16/24 12:00 04/16/24 12:00 FiO2 50 04/12/24 04:00 Narrative: Pleasant Oriented x 3 No acute distress Nonlabored breathing with supplemental oxygen in place Moves extremities against gravity Bilateral edema Results - Phys. Rehab Labs Labs: Laboratory Results - last 24 hr 04/16/24 04:50 Corrected WBC 8.7 RBC 4.98 Hgb 15.0 Hct 43.4 MCV 87.2 MCH 30.2 MCHC 34.6 RDW 14.2 Plt Count 297 MPV 7.8 PHA Creatinine Clear 29.94 Sodium 138 Potassium 3.9 Chloride 104 Carbon Dioxide 21.6 Anion Gap 16.3 H BUN 42 H Creatinine 2.68 H Est GFR (CKD-EPI) 23.310 Glucose 99 Calcium 9.1 Phosphorus 3.6 Albumin 3.6 Assessment/Plan (1) NSTEMI (non-ST elevated myocardial infarction): (2) Hypertension: Qualifiers: Hypertension type: primary hypertension Qualified Code(s): I10 - Essential (primary) hypertension (3) Paroxysmal atrial fibrillation with RVR: (4) Cardiomyopathy: (5) Acute kidney injury superimposed on CKD: Plan 79-year-old male with past medical history as above presenting with functional impairment secondary to NSTEMI, acute renal failure, pulmonary edema in setting of new onset atrial fibrillation with RVR and cardiomyopathy with EF 25 to 30%. -We discussed postacute care options including inpatient rehabilitation unit. He and his feel they can manage him appropriately at home. He was able to walk about 30 to 40 feet in the room with no assistive device and he reports being active at home. ?Unless he has a change in functional status or change of heart regarding need for rehabilitation unit, he can be discharged home with home health care when cleared. -Will follow-up tomorrow if remains admitted Patient was personally seen by me, Dr. Patel, on the day of encounter, reviewed the history and the relevant portions of the chart, including current orders, allied health and client experience consultant notes, labs/imaging and performed whatley elements of exam and I formulated the plan of care and facilitated the medical decision making. I completed a substantive portion of this encounter, the medical decision making portion of this note in its entirety, including Allied health note review, nursing note review, client experience consultant note review, discussion with nursing and case management, and more than 50% of my time was spent on counseling and coordination of care, time spent 35 minutes Documented By: Luis Patel MD 04/16/24 1401 Signed By: <Electronically signed by Luis Patel MD> 04/16/24 1453 [facility] Work Phone: 1(759) [phone] [place] [address] Nephrology Progress Note Signed Patient: Corwin Muller MR#: [id number] : 1945 Acct:[id number] Age/Sex: 79 / M Adm Date: 5 Loc: Room: [address] [place] [address] Type: ADM IN Attending Dr: Jersey Bess MD Copies to: ~ Date of Service: 04/16/2024 Subjective Subjective Narrative: This is an 79 yo male with PMHx of chronic kidney disease stage IIIb, hyperlipidemia, atrial tachycardia, hypertension and arthritis that was at his doctor's appointment for injections to his knees when his vitals were checked. He was sent to the emergency room due to heart rate in the 140s. He denied any symptoms whatsoever at that time. He was evaluated in the [facility] with EKG showingSVT and inverted T waves. He received diltiazem bolus and drip. Chest x-ray with bilateral interstitial infiltrates. He was given digoxin, Lasix, morphine and developed respiratory distress with oxygen sat 87% on 5 L nasal cannula. He was then placed on BiPAP and Ruiz was placed as well. No leukocytosis noted, BUN 29, creatinine 2.62, elevated troponin at 910 and BNP 8857. Patient was admitted for NSTEMI, CHF, and new onset A-fib. Echo showed EF 35 to 40% with moderate global hypokinesis of LV. Cardiology was consulted and recommended delaying ischemic evaluation after renal function has improved due to risk of contrast-induced nephropathy. He was started on GDMT forCHF including carvedilol, Imdur, hydralazine and Farxiga. Farxiga was stopped due to the hypotension. Nephrology was consulted due to YOJANA, fluid overload. INTERIM HISTORY Patient was seen and examined bedside. Patient feels comfortable with no more shortness of breath. Diuretics was switched to oral Lasix 40mg twice a day per Dr. Monroy. He still on spironolactone. Renal function stabilized with serum creatinine higher than baseline with diuresis. No acidosis or hyperkalemia. He has YOJANA on CKD likely due to cardiorenal syndrome. Patient on Cardizem for A-fib. Pulse is back to sinus rhythm with rate down to 52/min however he iscontinue to have intermittent A-fib. Plan stress test t was suggestive of anterior wall ischemia. Patient has cardiomyopathy with left ventricular EF 25 to 30%. Exam Physical Exam Vital Signs: Temp Pulse Resp BP Pulse Ox O2 Del Method O2 Flow Rate 36.7 C 52 L 18 104/62 95 Nasal Cannula 2 04/16/24 15:49 04/16/24 15:49 04/16/24 15:49 04/16/24 15:49 04/16/24 15:49 04/16/24 15:49 04/16/24 12:00 FiO2 50 04/12/24 04:00 Narrative: Constitutional: Appears comfortable and not in distress HEENT: No pallor or Jaundice Cardiovascular: Irregular, normal S1-S2, no gallop or rub, No JVD Respiratory: Good bilateral air entry no wheezing or crackles Gastrointestinal: Soft, non tender, positive bowel sounds Extremities: No edema Skin: No rashes or bruises Musculoskeletal: No joints swellings or inflammation Neurology: Awake, alert, oriented ?3, No focal motor or sensory deficits Psych: Normal mood and affect Objective Intake and Output I&O: Intake & Output 04/13/24 04/14/24 04/15/24 04/16/24 23:59 23:59 23:59 23:59 Intake Total 1050 / 1050 1450 / 1450 1150 / 1150 Output Total 2935 / 2935 2900 / 2900 2250 / 2250 200 / 200 Balance -1885 / -1885 -1450 / -1450 -1100 / -1100 -200 / -200 Weight 112.4 kg 111.1 kg 111.2 kg 110.5 kg Meds and Allergies Meds: Active Medications Acetaminophen (Acetaminophen 500 Mg Tablet) 1,000 mg PO Q6HR PRN PRN Reason: Pain Scale 1 - 3 or fever Stop: 04/10/25 04:04 Amiodarone HCl (Amiodarone 200 Mg Tablet) 200 mg PO TID [facility] Stop: 04/16/25 21:59 Apixaban (Apixaban 2.5 Mg Tablet) 2.5 mg PO BID [facility] Stop: 04/12/25 20:59 Last Admin: 04/16/24 08:56 Dose: 2.5 mg Aspirin (Aspirin 81 Mg Tablet.Dr) 81 mg PO DAILY [facility] Stop: 04/11/25 08:59 Last Admin: 04/16/24 08:56 Dose: 81 mg Diltiazem HCl (Diltiazem Cd.24hr 240 Mg Cap.Er.24h) 240 mg PO DAILY [facility] Stop: 04/17/25 08:59 Docusate Sodium (Docusate 100 Mg Capsule) 200 mg PO BID PRN PRN Reason: Constipation Stop: 04/15/25 11:55 Furosemide (Furosemide 40 Mg Tablet) 40 mg PO BID@0800,1600 [facility] Stop: 04/12/25 15:59 Last Admin: 04/16/24 15:48 Dose: 40 mg Hydralazine HCl (Hydralazine 25 Mg Tablet) 25 mg PO BID [facility]ESS[facility] Stop: 04/12/25 20:59 Last Admin: 04/16/24 08:56 Dose: 25 mg Isosorbide Mononitrate (Isosorbide Mononitrate 24hr Er 30 Mg Tab.Er.24h) 30 mg PO DAILY.6A [facility] Stop: 04/13/25 05:59 Last Admin: 04/16/24 06:28 Dose: 30 mg Metoprolol Succinate (Metoprolol Succinate 50 Mg Tab.Er.24h) 50 mg PO BID BLESSING Stop: 04/13/25 20:59 Last Admin: 04/16/24 08:56 Dose: 50 mg Morphine Sulfate (Morphine Sulfate 2 Mg/Ml Vial) 2 mg IV-PUSH Q4H PRN PRN Reason: Pain Scale 8 - 10 Ondansetron HCl (Ondansetron 4 Mg/2 Ml Vial) 4 mg IV-PUSH Q6H PRN PRN Reason: Nausea And Vomiting Stop: 04/10/25 04:04 Potassium Chloride (Potassium Chloride Er 20 Meq Tab.Er.Prt) 20 meq PO DAILY BLESSING Stop: 04/13/25 08:59 Last Admin: 04/16/24 08:56 Dose: 20 meq Sennosides (Sennosides Syrup 8.8 Mg/5 Ml Udc) 17.6 mg PO HS BLESSING Stop: 04/15/25 21:59 Last Admin: 04/15/24 22:35 Dose: Not Given Sodium Chloride (Sodium Chloride 0.9 % 10 Ml Syringe) 0 ml IV-PUSH QSHIFT BLESSING Stop: 04/10/25 05:59 Last Admin: 04/16/24 14:14 Dose: Not Given Sodium Chloride (Sodium Chloride 0.9 % 10 Ml Syringe) 0 ml IV-PUSH PRN PRN PRN Reason: Flush Stop: 04/15/25 13:36 Last Admin: 04/15/24 14:00 Dose: 30 ml Spironolactone (Spironolactone 12.5 Mg Tablet) 12.5 mg PO DAILY BLESSING Stop: 04/12/25 19:59 Last Admin: 04/16/24 08:56 Dose: 12.5 mg Allergies No Known Allergies Allergy (Verified 04/09/24 14:28) Results - Nephrology Labs 04/16/24 04:50 04/16/24 04:50 Labs: 04/16/24 04:50 BUN 42 H Creatinine 2.68 H Phosphorus 3.6 Albumin 3.6 Radiology Impressions Impressions - last 24 hours: Any impression(s) listed above is documentation that was entered by the reading physician into a diagnostic report(s) for Corwin Muller. I have reviewed the report(s) and am incorporating anyfindings in the treatment plan of this patient where applicable. A&P - Nephrology Assessment/Plan (1) Acute kidney injury superimposed on CKD: Assessment/Problem Details: YOJANA on CKD due to cardiorenal syndrome in setting of A-fib with RVR and acute CHF exacerbation. He has no evidence of obstructive uropathy on renal ultrasound. (2) NSTEMI (non-ST elevated myocardial infarction): Assessment/Problem Details: Patient was admitted for [place] and his echocardiogram showed EF 35 to 40%. He is currently on aspirin and carvedilol. Cardiology is following the patient and have ordered stress test. (3) CKD (chronic kidney disease) stage 3, GFR 30-59 ml/min: Assessment/Problem Details: He has a longstanding CKD due to the hypertension baseline serum creatinine was was reported 1.8 mg/dL. Patient was following with the PCP for CKD care. (4) Paroxysmal atrial fibrillation with RVR: Assessment/Problem Details: Cardiology following, on heparin, amiodarone, metoprolol, diltiazem, aspirin. (5) Acute hypoxic respiratory failure: Assessment/Problem Details: Acute hypoxic respiratory failure due to CHF exacerbation and A-fib RVR. (6) Acute systolic CHF (congestive heart failure): Assessment/Problem Details: EF 35 to 40%. On goal-directed medical therapy per cardiology. Cardiology following, on hydralazine, isosorbide, Lasix. Holding off on SGLT2 inhibitor due to renal dysfunction. (7) UTI (urinary tract infection): Assessment/Problem Details: Patient on ceftriaxone. (8) Hypertension: Assessment/Problem Details: His blood pressure is within the goal. Plan * Continue oral furosemide 40 mg twice a day. Although creatinine is up to 2.6 mg/dL, diuretics as needed to avoid recurrent CHF. * Continue spironolactone 12.5 mg daily for low EF that can be increased as tolerated. * Ruiz catheter was removed yesterday. Patient is breathing comfortably. * Monitor daily weight, urine output and renal panel. Results of stress test was discussed with the patient by his automotive alignment specialist. Ideally he should have invasive evaluation however patient is apprehensive of risk of contrast-induced nephropathy and need for hemodialysis. Patient is currently on aggressive medical treatment and risk factor modifications. He hasmild bradycardia on diltiazem that will be stopped by cardiology if he stay and sinus rhythm. Otherwise, patient is stable from discharge from renal point of view. However creatinine is acceptable at this point since patient has cardiorenal syndrome and diuretics is needed for low EF and recurrent CHF. Patient is being evaluated for rehab. Documented By: Felicia Aguilar MD 04/16/24 1638 Signed By: 04/16/24 1537 [facility]02-25-2025 Progress note Author Jersey Bess [facility] Note Date/Time April 16, 2024 1:58pm [facility] [address] [place] [address] Hospitalist Progress Note Signed Patient: Corwin Muller MR#: [id number] : 1945 Acct:[id number] Age/Sex: 79 / M Adm Date: 5 Loc: Room: [address] [place] [address] Type: ADM IN Attending Dr: Jersey Bess MD Copies to: ~ Date of Service: 04/16/2024 Subjective Subjective Narrative: Patient was seen and evaluated at bedside. Oxygen requirements is better down to2 L NC, rate is well controlled,. Cr uptrending to 2.68. Nephrology following. Cardiology on and following. Pt denies chest pain, dizziness, lightheadedness. plan for stress test today part 2. Pt converted back to sinus rhythm. Exam Physical Exam Vital Signs: Temp Pulse Resp BP Pulse Ox O2 Del Method O2 Flow Rate 97.6 F 59 L 16 97/56 L 95 Nasal Cannula 2 04/15/24 20:52 04/16/24 12:00 04/16/24 12:00 04/16/24 12:00 04/16/24 12:00 04/16/24 12:00 04/16/24 12:00 FiO2 50 04/12/24 04:00 Narrative: Const General: cooperative HEENT Normal oropharyngeal mucosa without any ulcers or exudates Eyes: Conjunctiva normal Pulmonary Auscultation: slightly diminished breath sounds , no crackles, no wheezes Cardiovascular Rate: normal rate Rhythm: regular rhythm Heart Sounds: S1 normal, S2 normal and no murmurs GI Inspection: non-distended Palpation: soft, not firm and nontender. No rigidity or rebound. Deferred Neuro General: alert, awake and oriented x3. No obvious new focal deficit Musculoskeletal: normal range of motion Extrem General: no cyanosis, no pedal edema Psych Appearance: appropriate affect. Grossly normal Objective Lab Results 04/16/24 04:50 04/16/24 04:50 Meds Allergies and Active Meds Allergies No Known Allergies Allergy (Verified 04/09/24 14:28) Active Meds: Active Medications Generic Name Dose Route Start Last Admin Trade Name Freq PRN Reason Stop Dose Admin Acetaminophen 1,000 mg 04/10/24 04:05 Acetaminophen 500 Mg Tablet PO 04/10/25 04:04 Q6HR PRN Pain Scale 1 - 3 or fever Amiodarone HCl 400 mg 04/11/24 14:00 04/16/24 08:56 Amiodarone 200 Mg Tablet PO 04/11/25 13:59 400 mg TID BLESSING Administration Apixaban 2.5 mg 04/12/24 21:00 04/16/24 08:56 Apixaban 2.5 Mg Tablet PO 04/12/25 20:59 2.5 mg BID BLESSING Administration Aspirin 81 mg 04/11/24 09:00 04/16/24 08:56 Aspirin 81 Mg Tablet.Dr PO 04/11/25 08:59 81 mg DAILY BLESSING Administration Diltiazem HCl 360 mg 04/15/24 09:00 04/16/24 08:56 Diltiazem Cd.24hr 180 Mg Cap.Er.24h PO 04/15/25 08:59 360 mg DAILY BLESSING Administration Docusate Sodium 200 mg 04/15/24 11:56 Docusate 100 Mg Capsule PO 04/15/25 11:55 BID PRN Constipation Furosemide 40 mg 04/12/24 16:00 04/16/24 08:56 Furosemide 40 Mg Tablet PO 04/12/25 15:59 40 mg BID@0800,1600 BLESSING Administration Hydralazine HCl 25 mg 04/12/24 21:00 04/16/24 08:56 Hydralazine 25 Mg Tablet PO 04/12/25 20:59 25 mg BID BLESSING Administration Isosorbide Mononitrate 30 mg 04/13/24 06:00 04/16/24 06:28 Isosorbide Mononitrate 24hr Er 30 Mg Tab.Er.24h PO 04/13/25 05:59 30 mg DAILY.6A BLESSING Administration Metoprolol Succinate 50 mg 04/13/24 21:00 04/16/24 08:56 Metoprolol Succinate 50 Mg Tab.Er.24h PO 04/13/25 20:59 50 mg BID BLESSING Administration Morphine Sulfate 2 mg 04/10/24 04:05 Morphine Sulfate 2 Mg/Ml Vial IV-PUSH Q4H PRN Pain Scale 8 - 10 Ondansetron HCl 4 mg 04/10/24 04:05 Ondansetron 4 Mg/2 Ml Vial IV-PUSH 04/10/25 04:04 Q6H PRN Nausea And Vomiting Potassium Chloride 20 meq 04/13/24 09:00 04/16/24 08:56 Potassium Chloride Er 20 Meq Tab.Er.Prt PO 04/13/25 08:59 20 meq DAILY BLESSING Administration Sennosides 17.6 mg 04/15/24 22:00 04/15/24 22:35 Sennosides Syrup 8.8 Mg/5 Ml Udc PO 04/15/25 21:59 Not Given HS BLESSING Sodium Chloride 0 ml 04/10/24 06:00 04/16/24 07:19 Sodium Chloride 0.9 % 10 Ml Syringe IV-PUSH 04/10/25 05:59 Not Given QSHIFT BLESSING Sodium Chloride 0 ml 04/15/24 13:37 04/15/24 14:00 Sodium Chloride 0.9 % 10 Ml Syringe IV-PUSH 04/15/25 13:36 30 ml PRN PRN Administration Flush Spironolactone 12.5 mg 04/12/24 20:00 04/16/24 08:56 Spironolactone 12.5 Mg Tablet PO 04/12/25 19:59 12.5 mg DAILY BLESSING Administration A&P - Hospitalist Assessment/Plan (1) Acute hypoxic respiratory failure: (2) Acute pulmonary edema: (3) Acute systolic CHF (congestive heart failure): (4) HFrEF (heart failure with reduced ejection fraction): (5) NSTEMI (non-ST elevated myocardial infarction): (6) Cardiomyopathy: Plan Acute systolic heart failure exacerbation Acute pulmonary edema 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 Pt was initiated on GDMT, BB, hydralazine and Imdur due to renal failure, spironolactone. -SGLT2 not started due to renal failure. Can be re-visted later down the road/outpatient. -IV diuresis as tolerated as directed per nephro -Ischemic workup as per cardiology. -Oxygen supplementation as needed -Monitor electrolytes while on diuretics -CPAP at night and as needed Afib with RVR- converted to NSR 04/16/24 New diagnosis of Afib -rate better controlled -Transitioned to oral Cardizem, also on Coreg. -Started on Eliquis 2.5 mg BID -Continue on Amiodarone per cardio -Cardiology following -Cardiac monitoring YOJANA on CKD -Baseline seems around Cr. 1.8. -Cr today 2.68 uptrending from prior. Nephro was consulted -Lasix on hold -PT has Ruiz catheter for accurate output. -UA obtained, seems positive for UTI. Continue IV Rocephin to complete 5 days. -renal US > no mass or hydronephrosis. -Nephrology following, input appreciated. Diet: healthy heart DVT ppx: Eliquis Code status: Full Status: inpatient Discussed with patient and Rosalba at bedside. All questions answered. In agreement with the above plan Plan for MPI stress test part 2 today. Further input as per cardiology regardingnext steps. Wean off oxygen as tolerated Will need walk study on discharge Jersey Quigley MD Internal Medicine Hospitalist Attending Physician Documented By: Jersey Bess MD 04/16/24 13 56 Signed By: <Electronically signed by Jersey Bess MD> 04/16/24 [facility] Work Phone: [phone]) 876-722902-25-[address] [place] [address] Physiatry (Rehab) Consult Note Signed Patient: Corwin Muller MR#: [id number] : 1945 Acct:[id number] Age/Sex: 79 / M Adm Date: 5 Loc: Room: [address] [place] [address] Type: ADM IN Attending Dr: Jersey Bess MD Copies to: DO Luis Johansen MD Obaydah M Daromar, MD~ Etiologic Dx/Impairment Group Narrative Narrative: Cardiac HPI Consult Date: 04/16/24 Requesting Physician: Jersey Bess MD Primary Care Provider: Ranjan Lomas DO Consult Narrative Reason for consult: Postacute care planning HPI: Mr. Muller is a 79 year old male With history of atrial tachycardia , CKD, hyperlipidemia, hypertension, bilateral knee osteoarthritis presenting with multifactorial functional decline in setting of NSTEMI, acute renal failure, pulmonary edema, cardiomyopathy with EF 25 to 35%. Clinical course reviewed including results of perfusion study yesterday. We discussed at length role of inpatient rehab and cardiac conditions depending on debility/endurance level and generalized weakness. He and his , who is at the bedside, reports that he was able to ambulate into the bathroom today with no assistive device. They feel that they can manage independently at discharge. We talked about home health care which they will likely decline, but they are open to outpatient cardiac rehab ifneeded. Review of Systems Review of Systems All other systems reviewed & are negative unless noted below or in HPI [facility] Medical History Atrial tachycardia Lumbar spondylosis Hyperlipidemia type II Primary osteoarthritis of right knee Primary osteoarthritis of left knee Knee pain Hypertension Elevated cholesterol Surgical History H/O hernia repair Family History Father 67 yrs Aortic aneurysm and dissection Mother 90 yrs History of stroke [facility] Problem: Diagnosed with Stroke Stroke Brother Diabetes Had multiple health problems Brother Parkinson disease Social History Smoking Status: Never smoker Substance Use Type: Alcohol (rarely) Meds Medications and Allergies Allergies No Known Allergies Allergy (Verified 04/09/24 14:28) Home Medications atorvastatin 10 mg tablet 10 mg PO DAILY 06/27/23 [History Confirmed 04/09/24] multivitamin 1 tab PO DAILY 06/27/23 [History Confirmed 04/09/24] amlodipine 10 mg tablet See Rx Instructions .Route .COMPLEX #90 tabs 12/15/23 [Rx Confirmed 04/10/24] amiodarone 200 mg tablet 200 mg PO TID 30 days #42 tabs 04/16/24 [Rx] apixaban 2.5 mg tablet (Eliquis) 2.5 mg PO BID 30 days #60 tabs 04/16/24 [Rx] aspirin 81 mg tablet,delayed release 81 mg PO DAILY 30 days #30 tabs 04/16/24 [Rx] diltiazem HCl 240 mg capsule,extended release 24 hr 240 mg PO DAILY 30 days #30 caps 04/16/24 [Rx] isosorbide mononitrate 30 mg tablet,extended release 24 hr 30 mg PO DAILY.6A 30 days #30 tabs 04/16/24 [Rx] metoprolol succinate 50 mg tablet,extended release 24 hr 50 mg PO BID 30 days #60 tabs 04/16/24 [Rx] spironolactone 25 mg tablet 12.5 mg (1/2 x 25 mg) PO DAILY 30 days #15 tabs 04/16/24 [Rx] Exam Physical Exam Vital Signs: Temp Pulse Resp BP Pulse Ox O2 Del Method O2 Flow Rate 97.6 F 59 L 16 97/56 L 95 Nasal Cannula 2 04/15/24 20:52 04/16/24 12:00 04/16/24 12:00 04/16/24 12:00 04/16/24 12:00 04/16/24 12:00 04/16/24 12:00 FiO2 50 04/12/24 04:00 Narrative: Pleasant Oriented x 3 No acute distress Nonlabored breathing with supplemental oxygen in place Moves extremities against gravity Bilateral edema Results - Phys. Rehab Labs Labs: Laboratory Results - last 24 hr 04/16/24 04:50 Corrected WBC 8.7 RBC 4.98 Hgb 15.0 Hct 43.4 MCV 87.2 MCH 30.2 MCHC 34.6 RDW 14.2 Plt Count 297 MPV 7.8 PHA Creatinine Clear 29.94 Sodium 138 Potassium 3.9 Chloride 104 Carbon Dioxide 21.6 Anion Gap 16.3 H BUN 42 H Creatinine 2.68 H Est GFR (CKD-EPI) 23.310 Glucose 99 Calcium 9.1 Phosphorus 3.6 Albumin 3.6 Assessment/Plan (1) NSTEMI (non-ST elevated myocardial infarction): (2) Hypertension: Qualifiers: Hypertension type: primary hypertension Qualified Code(s): I10 - Essential (primary) hypertension (3) Paroxysmal atrial fibrillation with RVR: (4) Cardiomyopathy: (5) Acute kidney injury superimposed on CKD: Plan 79-year-old male with past medical history as above presenting with functional impairment secondaryto NSTEMI, acute renal failure, pulmonary edema in setting of new onset atrial fibrillation with RVR and cardiomyopathy with EF 25 to 30%. -We discussed postacute care options including inpatient rehabilitation unit. He and his feel they can manage him appropriately at home. He was able to walk about 30 to 40 feet in the room with no assistive device and he reports being active at home. ?Unless he has a change in functional status or change of heart regarding need for rehabilitation unit, he can be discharged home with home health care when cleared. -Will follow-up tomorrow if remains admitted Patient was personally seen by me, Dr. Patel, on the day of encounter, reviewed the history and therelevant portions of the chart, including current orders, allied health and client experience consultant notes, labs/imaging and performed whatley elements of exam and I formulated the plan of care and facilitated the medical decision making. I completed a substantive portion of this encounter, the medical decision making portion of this note in its entirety, including Allied health note review, nursing note review, client experience consultant note review, discussion with nursing and case management, and more than 50% of my time was spent on counseling and coordination of care, time spent 35 minutes Documented By: Luis Patel MD 04/16/24 1401 Signed By: 04/16/24 1453 [facility]02-25-20[place] [address] Hospitalist Progress Note Signed Patient: Corwin Muller MR#: [id number] : 1945 Acct:[id number] Age/Sex: 79 / M Adm Date: 5 Loc: Room: [address] [place] [address] Type: ADM IN Attending Dr: Jersey Bess MD Copies to: ~ Date of Service: 04/16/2024 Subjective Subjective Narrative: Patient was seen and evaluated at bedside. Oxygen requirements is better down to2 L NC, rate is well controlled,. Cr uptrending to 2.68. Nephrology following. Cardiology on and following. Pt denies chest pain, dizziness, lightheadedness. plan for stress test today part 2. Pt converted back to sinusrhythm. Exam Physical Exam Vital Signs: Temp Pulse Resp BP Pulse Ox O2 Del Method O2 Flow Rate 97.6 F 59 L 16 97/56 L 95 Nasal Cannula 2 04/15/24 20:52 04/16/24 12:00 04/16/24 12:00 04/16/24 12:00 04/16/24 12:00 04/16/24 12:00 04/16/24 12:00 FiO2 50 04/12/24 04:00 Narrative: Const General: cooperative HEENT Normal oropharyngeal mucosa without any ulcers or exudates Eyes: Conjunctiva normal Pulmonary Auscultation: slightly diminished breath sounds , no crackles, no wheezes Cardiovascular Rate: normal rate Rhythm: regular rhythm Heart Sounds: S1 normal, S2 normal and no murmurs GI Inspection: non-distended Palpation: soft, not firm and nontender. No rigidity or rebound. Deferred Neuro General: alert, awake and oriented x3. No obvious new focal deficit Musculoskeletal: normal range of motion Extrem General: no cyanosis, no pedal edema Psych Appearance: appropriate affect. Grossly normal Objective Lab Results 04/16/24 04:50 04/16/24 04:50 Meds Allergies and Active Meds Allergies No Known Allergies Allergy (Verified 04/09/24 14:28) Active Meds: Active Medications Generic Name Dose Route Start Last Admin Trade Name Freq PRN Reason Stop Dose Admin Acetaminophen 1,000 mg 04/10/24 04:05 Acetaminophen 500 Mg Tablet PO 04/10/25 04:04 Q6HR PRN Pain Scale 1 - 3 or fever Amiodarone HCl 400 mg 04/11/24 14:00 04/16/24 08:56 Amiodarone 200 Mg Tablet PO 04/11/25 13:59 400 mg TID BLESSING Administration Apixaban 2.5 mg 04/12/24 21:00 04/16/24 08:56 Apixaban 2.5 Mg Tablet PO 04/12/25 20:59 2.5 mg BID BLESSING Administration Aspirin 81 mg 04/11/24 09:00 04/16/24 08:56 Aspirin 81 Mg Tablet.Dr PO 04/11/25 08:59 81 mg DAILY BLESSING Administration Diltiazem HCl 360 mg 04/15/24 09:00 04/16/24 08:56 Diltiazem Cd.24hr 180 Mg Cap.Er.24h PO 04/15/25 08:59 360 mg DAILY BLESSING Administration Docusate Sodium 200 mg 04/15/24 11:56 Docusate 100 Mg Capsule PO 04/15/25 11:55 BID PRN Constipation Furosemide 40 mg 04/12/24 16:00 04/16/24 08:56 Furosemide 40 Mg Tablet PO 04/12/25 15:59 40 mg BID@0800,1600 BLESSING Administration Hydralazine HCl 25 mg 04/12/24 21:00 04/16/24 08:56 Hydralazine 25 Mg Tablet PO 04/12/25 20:59 25 mg BID BLESSING Administration Isosorbide Mononitrate 30 mg 04/13/24 06:00 04/16/24 06:28 Isosorbide Mononitrate 24hr Er 30 Mg Tab.Er.24h PO 04/13/25 05:59 30 mg DAILY.6A BLESSING Administration Metoprolol Succinate 50 mg 04/13/24 21:00 04/16/24 08:56 Metoprolol Succinate 50 Mg Tab.Er.24h PO 04/13/25 20:59 50 mg BID BLESSING Administration Morphine Sulfate 2 mg 04/10/24 04:05 Morphine Sulfate 2 Mg/Ml Vial IV-PUSH Q4H PRN Pain Scale 8 - 10 Ondansetron HCl 4 mg 04/10/24 04:05 Ondansetron 4 Mg/2 Ml Vial IV-PUSH 04/10/25 04:04 Q6H PRN Nausea And Vomiting Potassium Chloride 20 meq 04/13/24 09:00 04/16/24 08:56 Potassium Chloride Er 20 Meq Tab.Er.Prt PO 04/13/25 08:59 20 meq DAILY BLESSING Administration Sennosides 17.6 mg 04/15/24 22:00 04/15/24 22:35 Sennosides Syrup 8.8 Mg/5 Ml Udc PO 04/15/25 21:59 Not Given HS BLESSING Sodium Chloride 0 ml 04/10/24 06:00 04/16/24 07:19 Sodium Chloride 0.9 % 10 Ml Syringe IV-PUSH 04/10/25 05:59 Not Given QSHIFT BLESSING Sodium Chloride 0 ml 04/15/24 13:37 04/15/24 14:00 Sodium Chloride 0.9 % 10 Ml Syringe IV-PUSH 04/15/25 13:36 30 ml PRN PRN Administration Flush Spironolactone 12.5 mg 04/12/24 20:00 04/16/24 08:56 Spironolactone 12.5 Mg Tablet PO 04/12/25 19:59 12.5 mg DAILY BLESSING Administration A&P - Hospitalist Assessment/Plan (1) Acute hypoxic respiratory failure: (2) Acute pulmonary edema: (3) Acute systolic CHF (congestive heart failure): (4) HFrEF (heart failure with reduced ejection fraction): (5) NSTEMI (non-ST elevated myocardial infarction): (6) Cardiomyopathy: Plan Acute systolic heart failure exacerbation Acute pulmonary edema 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 Pt was initiated on GDMT, BB, hydralazine and Imdur due to renal failure, spironolactone. -SGLT2 not started due to renal failure. Can be re-visted later down the road/outpatient. -IV diuresis as tolerated as directed per nephro -Ischemic workup as per cardiology. -Oxygen supplementation as needed -Monitor electrolytes while on diuretics -CPAP at night and as needed Afib with RVR- converted to NSR 04/16/24 New diagnosis of Afib -rate better controlled -Transitioned to oral Cardizem, also on Coreg. -Started on Eliquis 2.5 mg BID -Continue on Amiodarone per cardio -Cardiology following -Cardiac monitoring YOJANA on CKD -Baseline seems around Cr. 1.8. -Cr today 2.68 uptrending from prior. Nephro was consulted -Lasix on hold -PT has Ruiz catheter for accurate output. -UA obtained, seems positive for UTI. Continue IV Rocephin to complete 5 days. -renal US > no mass or hydronephrosis. -Nephrology following, input appreciated. Diet: healthy heart DVT ppx: Eliquis Code status: Full Status: inpatient Discussed with patient and Rosalba at bedside. All questions answered. In agreement with the above plan Plan for MPI stress test part 2 today. Further input as per cardiology regardingnext steps. Wean off oxygen as tolerated Will need walk study on discharge Jersey Quigley MD Internal Medicine Hospitalist Attending Physician Documented By: Jersey Bess MD 04/16/24 13 56 Signed By: 04/16/24 1358 [facility]02-25-2025 Progress note Author Mely Ken [facility] Note Date/Time April 16, 2024 11:27am [facility] [address] [place], [place] [id number] Cardiology Progress Note Signed Patient: Corwin Muller MR#: [id number] : 1945 Acct:[id number] Age/Sex: 79 / M Adm Date: 5 Loc: 4P Room: [address] [place] [address] Type: ADM IN Attending Dr: Jersey Bess MD Copies to: ~ Date of Service: 04/16/2024 Subjective Principal diagnosis: Congestive heart failure/atrial fibrillation Interval history: No chest pain or shortness of breath. Converted to normal sinus rhythm. Stresstest shows LV systolic dysfunction and LAD ischemia Exam Physical Exam Vital Signs: Temp Pulse Resp BP Pulse Ox O2 Del Method O2 Flow Rate 97.6 F 60 18 101/60 94 L Nasal Cannula 2 04/15/24 20:52 04/16/24 08:54 04/16/24 08:54 04/16/24 08:54 04/16/24 08:54 04/16/24 08:54 04/16/24 08:54 FiO2 50 04/12/24 04:00 Eyes General: appearance normal, both eyes and all related structures Pupils: PERRL Neck Neck: normal visual inspection, supple and no lymphadenopathy noted Neck mass: No Thyroid: thyroid normal Carotids: normal carotid upstroke Chest Chest palpation & inspection: normal inspection of the chest Resp Auscultation: crackles, rales and rhonchi Cardio Palpation: normal PMI Rate: regular rate Rhythm: regular rhythm Heart Sounds: S1 normal, S2 normal and murmur systolic II/ and at the right sternal border GI Palpation: soft and no hepatosplenomegaly Percussion: normal to percussion Auscultation: normal bowel sounds Extrem General: full ROM, capillary refill normal and no clubbing, cyanosis or edema Objective Labs 04/16/24 04:50 04/16/24 04:50 Labs: Laboratory Results - last 24 hr 04/16/24 04:50 Corrected WBC 8.7 RBC 4.98 Hgb 15.0 Hct 43.4 MCV 87.2 MCH 30.2 MCHC 34.6 RDW 14.2 Plt Count 297 MPV 7.8 PHA Creatinine Clear 29.94 Sodium 138 Potassium 3.9 Chloride 104 Carbon Dioxide 21.6 Anion Gap 16.3 H BUN 42 H Creatinine 2.68 H Est GFR (CKD-EPI) 23.310 Glucose 99 Calcium 9.1 Phosphorus 3.6 Albumin 3.6 A&P - Cardiology (1) NSTEMI (non-ST elevated myocardial infarction): Assessment/Problem Details: Troponin rise was just under 1000 pg/mL and was not associated with chest pain. Ejection fraction is severely reduced Code(s): I21.4 - Non-ST elevation (NSTEMI) myocardial infarction (2) HFrEF (heart failure with reduced ejection fraction): Assessment/Problem Details: Patient is able to lay down flat with no evidence of volume overload clinically but his chest x-ray on presentation showed pulmonary edema. Code(s): I50.20 - Unspecified systolic (congestive) heart failure (3) Chronic kidney disease: Assessment/Problem Details: Nephrology is following the patient, ultrasound of the kidney was performed today is not yet read Qualifiers: Chronic kidney disease stage: stage 3 (moderate) Chronic kidney diseasestage 3 subtype: stage 3b (GFR 30-44) Qualified Code(s): N18.32 - Chronic kidney disease, stage 3b Code(s): N18.9 - Chronic kidney disease, unspecified (4) Paroxysmal atrial fibrillation with RVR: Assessment/Problem Details: This is a new onset since admission. He is on loading dose of amiodarone, heartrate is controlled relatively speaking and he is anticoagulated with Eliquis Code(s): I48.0 - Paroxysmal atrial fibrillation Plan Assessment 1. Progressive shortness of breath due to acute pulmonary edema. Improving. Patient is lying flat without shortness of breath 2. Large Non-ST elevation myocardial infarction stress test appears to be positive for anterior wall ischemia 3. Renal insufficiency with creatinine 2.6 unclear whether it is acute on chronic 4. New onset atrial fibrillation with RVR back to normal sinus rhythm 5. Cardiomyopathy with LVEF based on my review in the range of 25-30%, ischemiccomponent need to be ruled out Plan 1. Continue amiodarone and Eliquis 2. The results of the stress test reviewed with patient and his at great length. We discussed invasive evaluation at great length. Patient apprehensiveabout the risk of contrast-induced nephropathy in need for hemodialysis. We discussed limited of invasive evaluation versus conservative management following lengthy and extensive discussion more than 30 minutes the patient elected to continue with medical therapy 3. Continue with aggressive approach to risk factor modification 4. Continue to optimize heart failure therapy with combination of beta-susie hydralazine and nitrate 5. If remain in sinus rhythm we will can gradually wean off oral diltiazem and gradually uptitrate beta-susie to optimize treatment for heart failure and coronary artery disease 6. Patient seems to be ready to be discharged Documented By: Mely Ken MD 04/16/24 1117 Signed By: <Electronically signed by MD Mely Ken> 04/16/24 1127 [facility] Work Phone: [phone] 120-194802-25-2025 Nuclear medicine Diagnostic study note [facility] Main [place] [id number] Nuclear Medicine Report Signed Patient: Corwin Muller MR#: [id number] : 1945 Acct:[id number] Age/Sex: 79 / M ADM Date: 5 Loc: Room: [address] [place] [address] Type: ADM IN Attending Dr: Jersey Bess MD Copies to: MD Mely Templeton MD Obaydah M Daromar, MD~ Ordering Provider: Mely Ken MD Date of Service: 04/15/24 NM/NM brianna perf SPECT rest & str: Afib/HF NUCLEAR MYOCARDIAL PERFUSION DATE OF PROCEDURE: 04/16/24 PROCEDURE: The patient received a stress dose of Lexiscan and was then injected with 29.4 millicuries of Technetium 99M Sestamibi. For rest images the patient was injected with 29.7 millicuries of Technetium 99MSestamibi. FINDINGS: The raw cine images were reviewed. The post stress and rest perfusion images were reviewed as well as the computer quantification.? There is a large severe anteroseptal, inferoseptal and apical fixeddefect with mild reversibility of the inferoseptum. There is also a fixed inferior wall defect. On the gated portion of the study, there was severely reduced left ventricular function. EF 26% with severe global hypokinesis and apical akinesis. TID score was within normal limits (0.93). CONCLUSION: 1. Abnormal MPI study. There is a large severe anteroseptal, inferoseptal and apical fixed defect with mild reversibility of the inferoseptum. There is also afixed inferior wall defect. 2. Left ventricular function was severely reduced at 26% with severe global hypokinesis and apical akinesis. 3. No comparison study. Impression dictated by: Jayda Burgess M.D.04/16/2024 12:45 PM Dictation Location: [place] [address] Transcribed By: RK 04/16/241244 Dictated By: Jayda Burgess MD 04/16/24 123 Signed By: 04/16/24 1245 [facility] Work Phone: [phone]) [phone] [place] [address] Cardiology Progress Note Signed Patient: Corwin Muller MR#: [id number] : 1945 Acct:[id number] Age/Sex: 79 / M Adm Date: 5 Loc: Room: [address] [place] [address] Type: ADM IN Attending Dr: Jersey Bess MD Copies to: ~ Date of Service: 04/16/2024 Subjective Principal diagnosis: Congestive heart failure/atrial fibrillation Interval history: No chest pain or shortness of breath. Converted to normal sinus rhythm. Stresstest shows LV systolic dysfunction and LAD ischemia Exam Physical Exam Vital Signs: Temp Pulse Resp BP Pulse Ox O2 Del Method O2 Flow Rate 97.6 F 60 18 101/60 94 L Nasal Cannula 2 04/15/24 20:52 04/16/24 08:54 04/16/24 08:54 04/16/24 08:54 04/16/24 08:54 04/16/24 08:54 04/16/24 08:54 FiO2 50 04/12/24 04:00 Eyes General: appearance normal, both eyes and all related structures Pupils: PERRL Neck Neck: normal visual inspection, supple and no lymphadenopathy noted Neck mass: No Thyroid: thyroid normal Carotids: normal carotid upstroke Chest Chest palpation & inspection: normal inspection of the chest Resp Auscultation: crackles, rales and rhonchi Cardio Palpation: normal PMI Rate: regular rate Rhythm: regular rhythm Heart Sounds: S1 normal, S2 normal and murmur systolic II/ and at the right sternal border GI Palpation: soft and no hepatosplenomegaly Percussion: normal to percussion Auscultation: normal bowel sounds Extrem General: full ROM, capillary refill normal and no clubbing, cyanosis or edema Objective Labs 04/16/24 04:50 04/16/24 04:50 Labs: Laboratory Results - last 24 hr 04/16/24 04:50 Corrected WBC 8.7 RBC 4.98 Hgb 15.0 Hct 43.4 MCV 87.2 MCH 30.2 MCHC 34.6 RDW 14.2 Plt Count 297 MPV 7.8 PHA Creatinine Clear 29.94 Sodium 138 Potassium 3.9 Chloride 104 Carbon Dioxide 21.6 Anion Gap 16.3 H BUN 42 H Creatinine 2.68 H Est GFR (CKD-EPI) 23.310 Glucose 99 Calcium 9.1 Phosphorus 3.6 Albumin 3.6 A&P - Cardiology (1) NSTEMI (non-ST elevated myocardial infarction): Assessment/Problem Details: Troponin rise was just under 1000 pg/mL and was not associated with chest pain. Ejection fraction is severely reduced Code(s): I21.4 - Non-ST elevation (NSTEMI) myocardial infarction (2) HFrEF (heart failure with reduced ejection fraction): Assessment/Problem Details: Patient is able to lay down flat with no evidence of volume overload clinically but his chest x-behzad presentation showed pulmonary edema. Code(s): I50.20 - Unspecified systolic (congestive) heart failure (3) Chronic kidney disease: Assessment/Problem Details: Nephrology is following the patient, ultrasound of the kidney was performed today is not yet read Qualifiers: Chronic kidney disease stage: stage 3 (moderate) Chronic kidney diseasestage 3 subtype: stage 3b (GFR 30-44) Qualified Code(s): N18.32 - Chronic kidney disease, stage 3b Code(s): N18.9 - Chronic kidney disease, unspecified (4) Paroxysmal atrial fibrillation with RVR: Assessment/Problem Details: This is a new onset since admission. He is on loading dose of amiodarone, heartrate is controlled relatively speaking and he is anticoagulated with Eliquis Code(s): I48.0 - Paroxysmal atrial fibrillation Plan Assessment 1. Progressive shortness of breath due to acute pulmonary edema. Improving. Patient is lying flat without shortness of breath 2. Large Non-ST elevation myocardial infarction stress test appears to be positive for anterior wall ischemia 3. Renal insufficiency with creatinine 2.6 unclear whether it is acute on chronic 4. New onset atrial fibrillation with RVR back to normal sinus rhythm 5. Cardiomyopathy with LVEF based on my review in the range of 25-30%, ischemiccomponent need to beruled out Plan 1. Continue amiodarone and Eliquis 2. The results of the stress test reviewed with patient and his at great length. We discussed invasive evaluation at great length. Patient apprehensiveabout the risk of contrast-induced nephropathy in need for hemodialysis. We discussed limited of invasive evaluation versus conservative management following lengthy and extensive discussion more than 30 minutes the patient elected to continuewith medical therapy 3. Continue with aggressive approach to risk factor modification 4. Continue to optimize heart failure therapy with combination of beta-susie hydralazine and nitrate 5. If remain in sinus rhythm we will can gradually wean off oral diltiazem and gradually uptitrate beta-susie to optimize treatment for heart failure and coronary artery disease 6. Patient seems to be ready to be discharged Documented By: Mely Ken MD 04/16/24 1117 Signed By: 04/16/24 1127 [facility]02-25-2025 Progress note Author Felicia Aguilar [facility] Note Date/Time April 15, 2024 10:06pm [facility] [address] [place] [address] Nephrology Progress Note Signed Patient: Corwin Muller MR#: [id number] : 1945 Acct:[id number] Age/Sex: 79 / M Adm Date: 5 Loc: Room: [address] [place] [address] Type: ADM IN Attending Dr: Jersey Bess MD Copies to: ~ Date of Service: 04/15/2024 Subjective Subjective Narrative: This is an 79 yo male with PMHx of chronic kidney disease stage IIIb, hyperlipidemia, atrial tachycardia, hypertension and arthritis that was at his doctor's appointment for injections to his knees when his vitals were checked. He was sent to the emergency room due to heart rate in the 140s. He denied any symptoms whatsoever at that time. He was evaluated in the [facility] with EKG showing SVT and inverted T waves. He received diltiazem bolus and drip. Chest x-ray with bilateral interstitial infiltrates. He was given digoxin, Lasix, morphine and developed respiratory distress with oxygen sat 87% on 5 L nasal cannula. He was then placed on BiPAP and Ruiz was placed as well. No leukocytosis noted, BUN 29, creatinine 2.62, elevated troponin at 910 and BNP 8857. Patient was admitted for NSTEMI, CHF, and new onset A-fib. Echo showed EF 35 to 40% with moderate global hypokinesis of LV. Cardiology was consulted and recommended delaying ischemic evaluation after renal function has improved due to risk of contrast-induced nephropathy. He was started on GDMT forCHF including carvedilol, Imdur, hydralazine and Farxiga. Farxiga was stopped due to the hypotension. Nephrology was consulted due to YOJANA, fluid overload. INTERIM HISTORY Patient was seen and examined bedside. Patient is up in a chair. He stated that he feels much better and he worked to go home. Still on IV furosemide. Serum creatinine stabilized at 2.5 mg/dL with diuresis higher than baseline. He either has YOJANA on CKD likely due to cardiorenal syndrome. He has good urine output on furosemide. He is still in A-fib with RVR. Cardiology has been following the patient and adjust his dose of the Cardizem. He is currently on IV ceftriaxone for UTI urine cultures positive for Staph epidermidis Exam Physical Exam Vital Signs: Temp Pulse Resp BP Pulse Ox O2 Del Method O2 Flow Rate 36.4 C 108 H 18 104/69 93 L Room Air 2 04/15/24 20:52 04/15/24 20:52 04/15/24 20:52 04/15/24 20:52 04/15/24 20:52 04/15/24 20:52 04/15/24 13:00 FiO2 50 04/12/24 04:00 Narrative: Constitutional: Appears comfortable and not in distress HEENT: No pallor or Jaundice Cardiovascular: Irregular, normal S1-S2, no gallop or rub, No JVD Respiratory: Good bilateral air entry no wheezing or crackles Gastrointestinal: Soft, non tender, positive bowel sounds Extremities: No edema Skin: No rashes or bruises Musculoskeletal: No joints swellings or inflammation Neurology: Awake, alert, oriented ?3, No focal motor or sensory deficits Psych: Normal mood and affect Objective Intake and Output I&O: Intake & Output 02/21/25 02/22/25 02/23/25 02/24/25 23:59 23:59 23:59 23:59 Intake Total 1380 / 1380 1050 / 1050 1450 / 1450 1100 / 1100 Output Total 1200 / 1200 2935 / 2935 2900 / 2900 2250 / 2250 Balance 180 / 180 -1885 / -1885 -1450 / -1450 -1150 / -1150 Weight 112.1 kg 112.4 kg 111.1 kg 111.2 kg Meds and Allergies Meds: Active Medications Acetaminophen (Acetaminophen 500 Mg Tablet) 1,000 mg PO Q6HR PRN PRN Reason: Pain Scale 1 - 3 or fever Stop: 04/10/25 04:04 Amiodarone HCl (Amiodarone 200 Mg Tablet) 400 mg PO TID [facility] Stop: 04/11/25 13:59 Last Admin: 04/15/24 21:25 Dose: 400 mg Apixaban (Apixaban 2.5 Mg Tablet) 2.5 mg PO BID [facility] Stop: 04/12/25 20:59 Last Admin: 04/15/24 21:25 Dose: 2.5 mg Aspirin (Aspirin 81 Mg Tablet.Dr) 81 mg PO DAILY [facility] Stop: 04/11/25 08:59 Last Admin: 04/15/24 10:20 Dose: 81 mg Diltiazem HCl (Diltiazem Cd.24hr 180 Mg Cap.Er.24h) 360 mg PO DAILY [facility] Stop: 04/15/25 08:59 Last Admin: 04/15/24 16:39 Dose: 360 mg Docusate Sodium (Docusate 100 Mg Capsule) 200 mg PO BID PRN PRN Reason: Constipation Stop: 04/15/25 11:55 Furosemide (Furosemide 40 Mg Tablet) 40 mg PO BID@0800,1600 [facility] Stop: 04/12/25 15:59 Last Admin: 04/15/24 16:42 Dose: 40 mg Hydralazine HCl (Hydralazine 25 Mg Tablet) 25 mg PO BID [facility] Stop: 04/12/25 20:59 Last Admin: 04/15/24 21:24 Dose: 25 mg Ceftriaxone Sodium (Rocephin) 1 gm in 50 mls @ 100 mls/hr IV Q24H [facility] Last Admin: 04/15/24 12:41 Dose: 100 mls/hr Isosorbide Mononitrate (Isosorbide Mononitrate 24hr Er 30 Mg Tab.Er.24h) 30 mg PO DAILY.6A [facility] Stop: 04/13/25 05:59 Last Admin: 04/15/24 05:04 Dose: 30 mg Metoprolol Succinate (Metoprolol Succinate 50 Mg Tab.Er.24h) 50 mg PO BID [facility] Stop: 04/13/25 20:59 Last Admin: 04/15/24 21:24 Dose: 50 mg Morphine Sulfate (Morphine Sulfate 2 Mg/Ml Vial) 2 mg IV-PUSH Q4H PRN PRN Reason: Pain Scale 8 - 10 Ondansetron HCl (Ondansetron 4 Mg/2 Ml Vial) 4 mg IV-PUSH Q6H PRN PRN Reason: Nausea And Vomiting Stop: 04/10/25 04:04 Potassium Chloride (Potassium Chloride Er 20 Meq Tab.Er.Prt) 20 meq PO DAILY [facility] Stop: 04/13/25 08:59 Last Admin: 04/15/24 10:21 Dose: 20 meq Sennosides (Sennosides Syrup 8.8 Mg/5 Ml Udc) 17.6 mg PO HS [facility] Stop: 04/15/25 21:59 Sodium Chloride (Sodium Chloride 0.9 % 10 Ml Syringe) 0 ml IV-PUSH QSHIFT [facility] Stop: 04/10/25 05:59 Last Admin: 04/15/24 16:42 Dose: 10 ml Sodium Chloride (Sodium Chloride 0.9 % 10 Ml Syringe) 0 ml IV-PUSH PRN PRN PRN Reason: Flush Stop: 04/15/25 13:36 Last Admin: 04/15/24 14:00 Dose: 30 ml Spironolactone (Spironolactone 12.5 Mg Tablet) 12.5 mg PO DAILY [facility] Stop: 04/12/25 19:59 Last Admin: 04/15/24 10:20 Dose: 12.5 mg Allergies No Known Allergies Allergy (Verified 04/09/24 14:28) Results - Nephrology Labs 04/15/24 04:08 04/15/24 04:08 Labs: 04/15/24 04:08 BUN 38 H Creatinine 2.58 H Phosphorus 3.9 Albumin 3.6 Radiology Impressions Impressions - last 24 hours: Any impression(s) listed above is documentation that was entered by the reading physician into a diagnostic report(s) for Corwin Muller. I have reviewed the report(s) and am incorporating any findings in the treatment plan of this patient where applicable. A&P - Nephrology Assessment/Plan (1) Acute kidney injury superimposed on CKD: Assessment/Problem Details: YOJANA on CKD due to cardiorenal syndrome in setting of A-fib with RVR and acute CHF exacerbation. He has no evidence of obstructive uropathy on renal ultrasound. (2) NSTEMI (non-ST elevated myocardial infarction): Assessment/Problem Details: Patient was admitted for [place] and his echocardiogram showed EF 35 to 40%. He is currently on aspirin and carvedilol. Cardiology is following the patient and have ordered stress test. (3) CKD (chronic kidney disease) stage 3, GFR 30-59 ml/min: Assessment/Problem Details: He has a longstanding CKD due to the hypertension baseline serum creatinine was 1.8 mg/dL. Patient was following with the PCP for CKD care. (4) Paroxysmal atrial fibrillation with RVR: Assessment/Problem Details: Cardiology following, on heparin, amiodarone, metoprolol, diltiazem, aspirin. (5) Acute hypoxic respiratory failure: Assessment/Problem Details: Acute hypoxic respiratory failure due to CHF exacerbation and A-fib RVR. (6) Acute systolic CHF (congestive heart failure): Assessment/Problem Details: EF 35 to 40%. On goal-directed medical therapy per cardiology. Cardiology following, on hydralazine, isosorbide, Lasix. Holding off on SGLT2 inhibitor due to renal dysfunction. (7) UTI (urinary tract infection): Assessment/Problem Details: Patient on ceftriaxone. (8) Hypertension: Assessment/Problem Details: His blood pressure is within the goal. Plan * IV Lasix switched to oral 40 mg twice a day. * Discontinue Ruiz catheter. * Continue spironolactone 12.5 mg daily. * Monitor daily weight, urine output and renal panel. Patient was informed that he can be discharged home tomorrow if you continue to have stable serum creatinine and good urine output on oral torsemide. Ruiz catheter was removed. Documented By: Felicia Aguilar MD 04/15/242200 Signed By: <Electronically signed by MD Felicia Aguilar> 04/15/24 2206 [facility] Work Phone: [phone]) 637-788802-24-2025 [place] [id number] Nephrology Progress Note Signed Patient: Corwin Muller MR#: [id number] : 1945 Acct:[id number] Age/Sex: 79 / M Adm Date: 5 Loc: Room: [address] [place] [address] Type: ADM IN Attending Dr: Jersey Bess MD Copies to: ~ Date of Service: 04/15/2024 Subjective Subjective Narrative: This is an 79 yo male with PMHx of chronic kidney disease stage IIIb, hyperlipidemia, atrial tachycardia, hypertension and arthritis that was at his doctor's appointment for injections to his knees when his vitals were checked. He was sent to the emergency room due to heart rate in the 140s. He denied any symptoms whatsoever at that time. He was evaluated in the [facility] with EKG showingSVT and inverted T waves. He received diltiazem bolus and drip. Chest x-ray with bilateral interstitial infiltrates. He was given digoxin, Lasix, morphine and developed respiratory distress with oxygen sat 87% on 5 L nasal cannula. He was then placed on BiPAP and Ruiz was placed as well. No leukocytosis noted, BUN 29, creatinine 2.62, elevated troponin at 910 and BNP 8857. Patient was admitted for NSTEMI, CHF, and new onset A-fib. Echo showed EF 35 to 40% with moderate global hypokinesis of LV. Cardiology was consulted and recommended delaying ischemic evaluation after renal function has improved due to risk of contrast-induced nephropathy. He was started on GDMT forCHF including carvedilol, Imdur, hydralazine and Farxiga. Farxiga was stopped due to the hypotension. Nephrology was consulted due to YOJANA, fluid overload. INTERIM HISTORY Patient was seen and examined bedside. Patient is up in a chair. He stated that he feels much better and he worked to go home. Still on IVfurosemide. Serum creatinine stabilized at 2.5 mg/dL with diuresis higher than baseline. He either has YOJANA on CKD likely due to cardiorenal syndrome. He has good urine output on furosemide. He is still in A-fib with RVR. Cardiology has been following the patient and adjust his dose of theCardizem. He is currently on IV ceftriaxone for UTI urine cultures positive for Staph epidermidis Exam Physical Exam Vital Signs: Temp Pulse Resp BP Pulse Ox O2 Del Method O2 Flow Rate 36.4 C 108 H 18 104/69 93 L Room Air 2 04/15/24 20:52 04/15/24 20:52 04/15/24 20:52 04/15/24 20:52 04/15/24 20:52 04/15/24 20:52 04/15/24 13:00 FiO2 50 04/12/24 04:00 Narrative: Constitutional: Appears comfortable and not in distress HEENT: No pallor or Jaundice Cardiovascular: Irregular, normal S1-S2, no gallop or rub, No JVD Respiratory: Good bilateral air entry no wheezing or crackles Gastrointestinal: Soft, non tender, positive bowel sounds Extremities: No edema Skin: No rashes or bruises Musculoskeletal: No joints swellings or inflammation Neurology: Awake, alert, oriented ?3, No focal motor or sensory deficits Psych: Normal mood and affect Objective Intake and Output I&O: Intake & Output 04/12/24 04/13/24 04/14/24 04/15/24 23:59 23:59 23:59 23:59 Intake Total 1380 / 1380 1050 / 1050 1450 / 1450 1100 / 1100 Output Total 1200 / 1200 2935 / 2935 2900 / 2900 2250 / 2250 Balance 180 / 180 -1885 / -1885 -1450 / -1450 -1150 / -1150 Weight 112.1 kg 112.4 kg 111.1 kg 111.2 kg Meds and Allergies Meds: Active Medications Acetaminophen (Acetaminophen 500 Mg Tablet) 1,000 mg PO Q6HR PRN PRN Reason: Pain Scale 1 - 3 or fever Stop: 04/10/25 04:04 Amiodarone HCl (Amiodarone 200 Mg Tablet) 400 mg PO TID [facility] Stop: 04/11/25 13:59 Last Admin: 04/15/24 21:25 Dose: 400 mg Apixaban (Apixaban 2.5 Mg Tablet) 2.5 mg PO BID [facility] Stop: 04/12/25 20:59 Last Admin: 04/15/24 21:25 Dose: 2.5 mg Aspirin (Aspirin 81 Mg Tablet.Dr) 81 mg PO DAILY [facility] Stop: 04/11/25 08:59 Last Admin: 04/15/24 10:20 Dose: 81 mg Diltiazem HCl (Diltiazem Cd.24hr 180 Mg Cap.Er.24h) 360 mg PO DAILY [facility] Stop: 04/15/25 08:59 Last Admin: 04/15/24 16:39 Dose: 360 mg Docusate Sodium (Docusate 100 Mg Capsule) 200 mg PO BID PRN PRN Reason: Constipation Stop: 04/15/25 11:55 Furosemide (Furosemide 40 Mg Tablet) 40 mg PO BID@0800,1600 [facility] Stop: 04/12/25 15:59 Last Admin: 04/15/24 16:42 Dose: 40 mg Hydralazine HCl (Hydralazine 25 Mg Tablet) 25 mg PO BID [facility] Stop: 04/12/25 20:59 Last Admin: 04/15/24 21:24 Dose: 25 mg Ceftriaxone Sodium (Rocephin) 1 gm in 50 mls @ 100 mls/hr IV Q24H [facility] Last Admin: 04/15/24 12:41 Dose: 100 mls/hr Isosorbide Mononitrate (Isosorbide Mononitrate 24hr Er 30 Mg Tab.Er.24h) 30 mg PO DAILY.6A [facility] Stop: 04/13/25 05:59 Last Admin: 04/15/24 05:04 Dose: 30 mg Metoprolol Succinate (Metoprolol Succinate 50 Mg Tab.Er.24h) 50 mg PO BID [facility] Stop: 04/13/25 20:59 Last Admin: 04/15/24 21:24 Dose: 50 mg Morphine Sulfate (Morphine Sulfate 2 Mg/Ml Vial) 2 mg IV-PUSH Q4H PRN PRN Reason: Pain Scale 8 - 10 Ondansetron HCl (Ondansetron 4 Mg/2 Ml Vial) 4 mg IV-PUSH Q6H PRN PRN Reason: Nausea And Vomiting Stop: 04/10/25 04:04 Potassium Chloride (Potassium Chloride Er 20 Meq Tab.Er.Prt) 20 meq PO DAILY [facility] Stop: 04/13/25 08:59 Last Admin: 04/15/24 10:21 Dose: 20 meq Sennosides (Sennosides Syrup 8.8 Mg/5 Ml Udc) 17.6 mg PO HS [facility] Stop: 04/15/25 21:59 Sodium Chloride (Sodium Chloride 0.9 % 10 Ml Syringe) 0 ml IV-PUSH QSHIFT [facility] Stop: 04/10/25 05:59 Last Admin: 04/15/24 16:42 Dose: 10 ml Sodium Chloride (Sodium Chloride 0.9 % 10 Ml Syringe) 0 ml IV-PUSH PRN PRN PRN Reason: Flush Stop: 04/15/25 13:36 Last Admin: 04/15/24 14:00 Dose: 30 ml Spironolactone (Spironolactone 12.5 Mg Tablet) 12.5 mg PO DAILY [facility] Stop: 04/12/25 19:59 Last Admin: 04/15/24 10:20 Dose: 12.5 mg Allergies No Known Allergies Allergy (Verified 04/09/24 14:28) Results - Nephrology Labs 04/15/24 04:08 04/15/24 04:08 Labs: 04/15/24 04:08 BUN 38 H Creatinine 2.58 H Phosphorus 3.9 Albumin 3.6 Radiology Impressions Impressions - last 24 hours: Any impression(s) listed above is documentation that was entered by the reading physician into a diagnostic report(s) for Corwin Muller. I have reviewed the report(s) and am incorporating anyfindings in the treatment plan of this patient where applicable. A&P - Nephrology Assessment/Plan (1) Acute kidney injury superimposed on CKD: Assessment/Problem Details: YOJANA on CKD due to cardiorenal syndrome in setting of A-fib with RVR and acute CHF exacerbation. He has no evidence of obstructive uropathy on renal ultrasound. (2) NSTEMI (non-ST elevated myocardial infarction): Assessment/Problem Details: Patient was admitted for [place] and his echocardiogram showed EF 35 to 40%. He is currently on aspirin and carvedilol. Cardiology is following the patient and have ordered stress test. (3) CKD (chronic kidney disease) stage 3, GFR 30-59 ml/min: Assessment/Problem Details: He has a longstanding CKD due to the hypertension baseline serum creatinine was 1.8 mg/dL. Patient was following with the PCP for CKD care. (4) Paroxysmal atrial fibrillation with RVR: Assessment/Problem Details: Cardiology following, on heparin, amiodarone, metoprolol, diltiazem, aspirin. (5) Acute hypoxic respiratory failure: Assessment/Problem Details: Acute hypoxic respiratory failure due to CHF exacerbation and A-fib RVR. (6) Acute systolic CHF (congestive heart failure): Assessment/Problem Details: EF 35 to 40%. On goal-directed medical therapy per cardiology. Cardiology following, on hydralazine, isosorbide, Lasix. Holding off on SGLT2 inhibitor due to renal dysfunction. (7) UTI (urinary tract infection): Assessment/Problem Details: Patient on ceftriaxone. (8) Hypertension: Assessment/Problem Details: His blood pressure is within the goal. Plan * IV Lasix switched to oral 40 mg twice a day. * Discontinue Ruiz catheter. * Continue spironolactone 12.5 mg daily. * Monitor daily weight, urine output and renal panel. Patient was informed that he can be discharged home tomorrow if you continue to have stable serum creatinine and good urine output on oral torsemide. Ruiz catheter was removed. Documented By: Felicia Aguilar MD 04/15/242200 Signed By: 04/15/242205 [facility]02-24-2025 Progress note Author Mely Ken [facility] Note Date/Time April 15, 2024 12:47pm [facility] [address] [place] [address] Cardiology Progress Note Signed Patient: Corwin Muller MR#: [id number] : 1945 Acct:[id number] Age/Sex: 79 / M Adm Date: 5 Loc: Room: [address] [place] [address] Type: ADM IN Attending Dr: Jersey Bess MD Copies to: ~ Date of Service: 04/15/2024 Subjective Principal diagnosis: Congestive heart failure/atrial fibrillation Exam Physical Exam Vital Signs: Temp Pulse Resp BP Pulse Ox O2 Del Method O2 Flow Rate 97.4 F L 101 H 17 103/70 92 L Nasal Cannula 6 04/15/24 09:00 04/15/24 09:00 04/15/24 09:00 04/15/24 09:00 04/15/24 09:00 04/15/24 09:00 04/15/24 09:00 FiO2 50 04/12/24 04:00 Eyes General: appearance normal, both eyes and all related structures Pupils: PERRL Neck Neck: normal visual inspection, supple and no lymphadenopathy noted Neck mass: No Thyroid: thyroid normal Carotids: normal carotid upstroke Chest Chest palpation & inspection: normal inspection of the chest Resp Auscultation: crackles, rales and rhonchi Cardio Palpation: normal PMI Rate: regular rate Rhythm: regular rhythm Heart Sounds: S1 normal, S2 normal and murmur systolic II/ and at the right sternal border Skin General: no rashes or lesions noted and dry skin Extrem General: full ROM, capillary refill normal and no clubbing, cyanosis or edema Objective Labs 04/15/24 04:08 04/15/24 04:08 Labs: Laboratory Results - last 24 hr 04/15/24 04:08 Corrected WBC 8.5 RBC 4.88 Hgb 14.8 Hct 42.5 MCV 87.1 MCH 30.3 MCHC 34.8 RDW 14.0 Plt Count 270 MPV 7.7 PHA Creatinine Clear 31.18 Sodium 138 Potassium 4.1 Chloride 104 Carbon Dioxide 26.6 Anion Gap 11.5 BUN 38 H Creatinine 2.58 H Est GFR (CKD-EPI) 24.398 Glucose 100 Calcium 9.2 Phosphorus 3.9 Magnesium 2.1 Total Bilirubin 0.6 AST 30 ALT 27 Alkaline Phosphatase 46 Total Protein 6.5 Albumin 3.6 Globulin 2.9 Albumin/Globulin Ratio 1.2 A&P - Cardiology (1) NSTEMI (non-ST elevated myocardial infarction): Assessment/Problem Details: Troponin rise was just under 1000 pg/mL and was not associated with chest pain. Ejection fraction is severely reduced Code(s): I21.4 - Non-ST elevation (NSTEMI) myocardial infarction (2) HFrEF (heart failure with reduced ejection fraction): Assessment/Problem Details: Patient is able to lay down flat with no evidence of volume overload clinically but his chest x-ray on presentation showed pulmonary edema. Code(s): I50.20 - Unspecified systolic (congestive) heart failure (3) Chronic kidney disease: Assessment/Problem Details: Nephrology is following the patient, ultrasound of the kidney was performed today is not yet read Qualifiers: Chronic kidney disease stage: stage 3 (moderate) Chronic kidney diseasestage 3 subtype: stage 3b (GFR 30-44) Qualified Code(s): N18.32 - Chronic kidney disease, stage 3b Code(s): N18.9 - Chronic kidney disease, unspecified (4) Paroxysmal atrial fibrillation with RVR: Assessment/Problem Details: This is a new onset since admission. He is on loading dose of amiodarone, heartrate is controlled relatively speaking and he is anticoagulated with Eliquis Code(s): I48.0 - Paroxysmal atrial fibrillation Plan Assessment 1. Progressive shortness of breath due to acute pulmonary edema. Improving. Patient is lying flat 2. Large Non-ST elevation myocardial infarction 3. Renal insufficiency with creatinine 2.6 unclear whether it is acute on chronic 4. New onset atrial fibrillation with RVR 5. Cardiomyopathy with LVEF based on my review in the range of 25-30%, ischemiccomponent need to be ruled out Plan 1. Continue amiodarone and Eliquis 2. Plan for stress test today for risk stratification 3. Continue with aggressive approach to risk factor modification Documented By: Mely Ken MD 04/15/241243 Signed By: <Electronically signed by MD Mely Ken> 04/15/24 1247 [facility] Work Phone: [phone]) 800-866802-24-2025 Progress note Author Jersey Bess [facility] Note Date/Time April 15, 2024 12:12pm [facility] [address] [place] [address] Hospitalist Progress Note Signed Patient: Corwin Muller MR#: [id number] : 1945 Acct:[id number] Age/Sex: 79 / M Adm Date: 5 Loc: Room: [address] [place] [address] Type: ADM IN Attending Dr: Jersey Bess MD Copies to: ~ Date of Service: 04/15/2024 Subjective Subjective Narrative: Patient was seen and evaluated at bedside. Oxygen requirements still at 6 L, rate is better controlled,. Cr stable but uptrending to 2.58. Nephrology following. Cardiology on and following. Pt denies chest pain, dizziness, lightheadedness. plan for stress test today. Exam Physical Exam Vital Signs: Temp Pulse Resp BP Pulse Ox O2 Del Method O2 Flow Rate 97.4 F L 101 H 17 103/70 92 L Nasal Cannula 6 04/15/24 09:00 04/15/24 09:00 04/15/24 09:00 04/15/24 09:00 04/15/24 09:00 04/15/24 09:00 04/15/24 09:00 FiO2 50 04/12/24 04:00 Narrative: Const General: cooperative HEENT Normal oropharyngeal mucosa without any ulcers or exudates Eyes: Conjunctiva normal Pulmonary Auscultation: slightly diminished breath sounds , no crackles, no wheezes Cardiovascular Rate: normal rate Rhythm: irregular rhythm Heart Sounds: S1 normal, S2 normal and no murmurs GI Inspection: non-distended Palpation: soft, not firm and nontender. No rigidity or rebound. Deferred Neuro General: alert, awake and oriented x3. No obvious new focal deficit Musculoskeletal: normal range of motion Extrem General: no cyanosis, no pedal edema Psych Appearance: appropriate affect. Grossly normal Objective Lab Results 04/15/24 04:08 04/15/24 04:08 Microbiology Results Microbiology 04/12/24 10:01 Urine - Ruiz Urine Culture - Final Staphylococcus epidermidis Meds Allergies and Active Meds Allergies No Known Allergies Allergy (Verified 04/09/24 14:28) Active Meds: Active Medications Generic Name Dose Route Start Last Admin Trade Name Freq PRN Reason Stop Dose Admin Acetaminophen 1,000 mg 04/10/24 04:05 Acetaminophen 500 Mg Tablet PO 04/10/25 04:04 Q6HR PRN Pain Scale 1 - 3 or fever Amiodarone HCl 400 mg 04/11/24 14:00 04/14/24 20:59 Amiodarone 200 Mg Tablet PO 04/11/25 13:59 400 mg TID BLESSING Administration Apixaban 2.5 mg 04/12/24 21:00 04/15/24 10:21 Apixaban 2.5 Mg Tablet PO 04/12/25 20:59 2.5 mg BID BLESSING Administration Aspirin 81 mg 04/11/24 09:00 04/15/24 10:20 Aspirin 81 Mg Tablet.Dr PO 04/11/25 08:59 81 mg DAILY BLESSING Administration Diltiazem HCl 360 mg 04/15/24 09:00 Diltiazem Cd.24hr 180 Mg Cap.Er.24h PO 04/15/25 08:59 DAILY BLESSING Furosemide 40 mg 04/12/24 16:00 04/15/24 10:20 Furosemide 40 Mg Tablet PO 04/12/25 15:59 40 mg BID@0800,1600 BLESSING Administration Hydralazine HCl 25 mg 04/12/24 21:00 04/15/24 10:20 Hydralazine 25 Mg Tablet PO 04/12/25 20:59 25 mg BID BLESSING Administration Ceftriaxone Sodium 1 gm in 50 mls @ 100 mls/hr 04/12/24 11:00 04/14/24 11:29 Rocephin IV 100 mls/hr Q24H BLESSING Administration Isosorbide Mononitrate 30 mg 04/13/24 06:00 04/15/24 05:04 Isosorbide Mononitrate 24hr Er 30 Mg Tab.Er.24h PO 04/13/25 05:59 30 mg DAILY.6A BLESSING Administration Metoprolol Succinate 50 mg 04/13/24 21:00 04/14/24 20:59 Metoprolol Succinate 50 Mg Tab.Er.24h PO 04/13/25 20:59 50 mg BID BLESSING Administration Morphine Sulfate 2 mg 04/10/24 04:05 Morphine Sulfate 2 Mg/Ml Vial IV-PUSH Q4H PRN Pain Scale 8 - 10 Ondansetron HCl 4 mg 04/10/24 04:05 Ondansetron 4 Mg/2 Ml Vial IV-PUSH 04/10/25 04:04 Q6H PRN Nausea And Vomiting Potassium Chloride 20 meq 04/13/24 09:00 04/15/24 10:21 Potassium Chloride Er 20 Meq Tab.Er.Prt PO 04/13/25 08:59 20 meq DAILY BLESSING Administration Sodium Chloride 0 ml 04/10/24 06:00 04/15/24 10:19 Sodium Chloride 0.9 % 10 Ml Syringe IV-PUSH 04/10/25 05:59 10 ml QSHIFT BLESSING Administration Spironolactone 12.5 mg 04/12/24 20:00 04/15/24 10:20 Spironolactone 12.5 Mg Tablet PO 04/12/25 19:59 12.5 mg DAILY BLESSING Administration A&P - Hospitalist Assessment/Plan (1) Acute hypoxic respiratory failure: (2) Acute pulmonary edema: (3) Acute systolic CHF (congestive heart failure): (4) HFrEF (heart failure with reduced ejection fraction): (5) NSTEMI (non-ST elevated myocardial infarction): (6) Cardiomyopathy: Plan Acute systolic heart failure exacerbation Acute pulmonary edema 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 Pt was initiated on GDMT, BB, hydralazine and Imdur due to renal failure, spironolactone. -SGLT2 not started due to renal failure. Can be re-visted later down the road/outpatient. -IV diuresis as tolerated -Ischemic workup as per cardiology. Plan for lexiscan MPI today -Oxygen supplementation as needed -Monitor electrolytes while on diuretics -CPAP at night and as needed Afib with RVR New diagnosis of Afib -rate better controlled -Transitioned to oral Cardizem -Started on Eliquis 2.5 mg BID -Continue on Amiodarone per cardio -Cardiology following -Cardiac monitoring YOJANA on CKD -Baseline seems around Cr. 1.8. -Cr today 2.5 uptrending from prior. Nephro was consulted -Lasix on hold -PT has Ruiz catheter for accurate output. -UA obtained, seems positive for UTI. Continue IV Rocephin to complete 5 days. -renal US > no mass or hydronephrosis. -Nephrology following, input appreciated. Diet: healthy heart DVT ppx: Eliquis Code status: Full Status: inpatient Discussed with patient and Rosalba at bedside. All questions answered. In agreement with the above plan Plan for MPI stress today. Wean off oxygen as tolerated, if remains hypoxic, will consider further workup. Jersey Quigley MD Internal Medicine Hospitalist Attending Physician Documented By: Jersey Bess MD 04/15/24 11 54 Signed By: <Electronically signed by Jersey Bess MD> 04/15/[address] [place] [address] Work Phone: [phone]) 570-826702-24-20[place] [address] Cardiology Progress Note Signed Patient: Corwin Muller MR#: [id number] : 1945 Acct:[id number] Age/Sex: 79 / M Adm Date: 5 Loc: 4 Room: [address] [place] [address] Type: ADM IN Attending Dr: Jersey Bess MD Copies to: ~ Date of Service: 04/15/2024 Subjective Principal diagnosis: Congestive heart failure/atrial fibrillation Exam Physical Exam Vital Signs: Temp Pulse Resp BP Pulse Ox O2 Del Method O2 Flow Rate 97.4 F L 101 H 17 103/70 92 L Nasal Cannula 6 04/15/24 09:00 04/15/24 09:00 04/15/24 09:00 04/15/24 09:00 04/15/24 09:00 04/15/24 09:00 04/15/24 09:00 FiO2 50 04/12/24 04:00 Eyes General: appearance normal, both eyes and all related structures Pupils: PERRL Neck Neck: normal visual inspection, supple and no lymphadenopathy noted Neck mass: No Thyroid: thyroid normal Carotids: normal carotid upstroke Chest Chest palpation & inspection: normal inspection of the chest Resp Auscultation: crackles, rales and rhonchi Cardio Palpation: normal PMI Rate: regular rate Rhythm: regular rhythm Heart Sounds: S1 normal, S2 normal and murmur systolic II/ and at the right sternal border Skin General: no rashes or lesions noted and dry skin Extrem General: full ROM, capillary refill normal and no clubbing, cyanosis or edema Objective Labs 04/15/24 04:08 04/15/24 04:08 Labs: Laboratory Results - last 24 hr 04/15/24 04:08 Corrected WBC 8.5 RBC 4.88 Hgb 14.8 Hct 42.5 MCV 87.1 MCH 30.3 MCHC 34.8 RDW 14.0 Plt Count 270 MPV 7.7 PHA Creatinine Clear 31.18 Sodium 138 Potassium 4.1 Chloride 104 Carbon Dioxide 26.6 Anion Gap 11.5 BUN 38 H Creatinine 2.58 H Est GFR (CKD-EPI) 24.398 Glucose 100 Calcium 9.2 Phosphorus 3.9 Magnesium 2.1 Total Bilirubin 0.6 AST 30 ALT 27 Alkaline Phosphatase 46 Total Protein 6.5 Albumin 3.6 Globulin 2.9 Albumin/Globulin Ratio 1.2 A&P - Cardiology (1) NSTEMI (non-ST elevated myocardial infarction): Assessment/Problem Details: Troponin rise was just under 1000 pg/mL and was not associated with chest pain. Ejection fraction is severely reduced Code(s): I21.4 - Non-ST elevation (NSTEMI) myocardial infarction (2) HFrEF (heart failure with reduced ejection fraction): Assessment/Problem Details: Patient is able to lay down flat with no evidence of volume overload clinically but his chest x-behzad presentation showed pulmonary edema. Code(s): I50.20 - Unspecified systolic (congestive) heart failure (3) Chronic kidney disease: Assessment/Problem Details: Nephrology is following the patient, ultrasound of the kidney was performed today is not yet read Qualifiers: Chronic kidney disease stage: stage 3 (moderate) Chronic kidney diseasestage 3 subtype: stage 3b (GFR 30-44) Qualified Code(s): N18.32 - Chronic kidney disease, stage 3b Code(s): N18.9 - Chronic kidney disease, unspecified (4) Paroxysmal atrial fibrillation with RVR: Assessment/Problem Details: This is a new onset since admission. He is on loading dose of amiodarone, heartrate is controlled relatively speaking and he is anticoagulated with Eliquis Code(s): I48.0 - Paroxysmal atrial fibrillation Plan Assessment 1. Progressive shortness of breath due to acute pulmonary edema. Improving. Patient is lying flat 2. Large Non-ST elevation myocardial infarction 3. Renal insufficiency with creatinine 2.6 unclear whether it is acute on chronic 4. New onset atrial fibrillation with RVR 5. Cardiomyopathy with LVEF based on my review in the range of 25-30%, ischemiccomponent need to beruled out Plan 1. Continue amiodarone and Eliquis 2. Plan for stress test today for risk stratification 3. Continue with aggressive approach to risk factor modification Documented By: Mely Ken MD 04/15/24 1244 Signed By: 04/15/24 1247 [facility]02-24-2025 [place] [id number] Hospitalist Progress Note Signed Patient: Corwin Muller MR#: [id number] : 1945 Acct:[id number] Age/Sex: 79 / M Adm Date: 5 Loc: 4P Room: [address] [place] [address] Type: ADM IN Attending Dr: Jeresy Bess MD Copies to: ~ Date of Service: 04/15/2024 Subjective Subjective Narrative: Patient was seen and evaluated at bedside. Oxygen requirements still at 6 L, rate is better controlled,. Cr stable but uptrending to 2.58. Nephrology following. Cardiology on and following. Pt denieschest pain, dizziness, lightheadedness. plan for stress test today. Exam Physical Exam Vital Signs: Temp Pulse Resp BP Pulse Ox O2 Del Method O2 Flow Rate 97.4 F L 101 H 17 103/70 92 L Nasal Cannula 6 04/15/24 09:00 04/15/24 09:00 04/15/24 09:00 04/15/24 09:00 04/15/24 09:00 04/15/24 09:00 04/15/24 09:00 FiO2 50 04/12/24 04:00 Narrative: Const General: cooperative HEENT Normal oropharyngeal mucosa without any ulcers or exudates Eyes: Conjunctiva normal Pulmonary Auscultation: slightly diminished breath sounds , no crackles, no wheezes Cardiovascular Rate: normal rate Rhythm: irregular rhythm Heart Sounds: S1 normal, S2 normal and no murmurs GI Inspection: non-distended Palpation: soft, not firm and nontender. No rigidity or rebound. Deferred Neuro General: alert, awake and oriented x3. No obvious new focal deficit Musculoskeletal: normal range of motion Extrem General: no cyanosis, no pedal edema Psych Appearance: appropriate affect. Grossly normal Objective Lab Results 04/15/24 04:08 04/15/24 04:08 Microbiology Results Microbiology 04/12/24 10:01 Urine - Ruiz Urine Culture - Final Staphylococcus epidermidis Meds Allergies and Active Meds Allergies No Known Allergies Allergy (Verified 04/09/24 14:28) Active Meds: Active Medications Generic Name Dose Route Start Last Admin Trade Name Freq PRN Reason Stop Dose Admin Acetaminophen 1,000 mg 04/10/24 04:05 Acetaminophen 500 Mg Tablet PO 04/10/25 04:04 Q6HR PRN Pain Scale 1 - 3 or fever Amiodarone HCl 400 mg 04/11/24 14:00 04/14/24 20:59 Amiodarone 200 Mg Tablet PO 04/11/25 13:59 400 mg TID BLESSING Administration Apixaban 2.5 mg 04/12/24 21:00 04/15/24 10:21 Apixaban 2.5 Mg Tablet PO 04/12/25 20:59 2.5 mg BID BLESSING Administration Aspirin 81 mg 04/11/24 09:00 04/15/24 10:20 Aspirin 81 Mg Tablet.Dr PO 04/11/25 08:59 81 mg DAILY BLESSING Administration Diltiazem HCl 360 mg 04/15/24 09:00 Diltiazem Cd.24hr 180 Mg Cap.Er.24h PO 04/15/25 08:59 DAILY BLESSING Furosemide 40 mg 04/12/24 16:00 04/15/24 10:20 Furosemide 40 Mg Tablet PO 04/12/25 15:59 40 mg BID@0800,1600 BLESSING Administration Hydralazine HCl 25 mg 04/12/24 21:00 04/15/24 10:20 Hydralazine 25 Mg Tablet PO 04/12/25 20:59 25 mg BID BLESSING Administration Ceftriaxone Sodium 1 gm in 50 mls @ 100 mls/hr 04/12/24 11:00 04/14/24 11:29 Rocephin IV 100 mls/hr Q24H BLESSING Administration Isosorbide Mononitrate 30 mg 04/13/24 06:00 04/15/24 05:04 Isosorbide Mononitrate 24hr Er 30 Mg Tab.Er.24h PO 04/13/25 05:59 30 mg DAILY.6A BLESSING Administration Metoprolol Succinate 50 mg 04/13/24 21:00 04/14/24 20:59 Metoprolol Succinate 50 Mg Tab.Er.24h PO 04/13/25 20:59 50 mg BID BLESSING Administration Morphine Sulfate 2 mg 04/10/24 04:05 Morphine Sulfate 2 Mg/Ml Vial IV-PUSH Q4H PRN Pain Scale 8 - 10 Ondansetron HCl 4 mg 04/10/24 04:05 Ondansetron 4 Mg/2 Ml Vial IV-PUSH 04/10/25 04:04 Q6H PRN Nausea And Vomiting Potassium Chloride 20 meq 04/13/24 09:00 04/15/24 10:21 Potassium Chloride Er 20 Meq Tab.Er.Prt PO 04/13/25 08:59 20 meq DAILY BLESSING Administration Sodium Chloride 0 ml 04/10/24 06:00 04/15/24 10:19 Sodium Chloride 0.9 % 10 Ml Syringe IV-PUSH 04/10/25 05:59 10 ml QSHIFT BLESSING Administration Spironolactone 12.5 mg 04/12/24 20:00 04/15/24 10:20 Spironolactone 12.5 Mg Tablet PO 04/12/25 19:59 12.5 mg DAILY BLESSING Administration A&P - Hospitalist Assessment/Plan (1) Acute hypoxic respiratory failure: (2) Acute pulmonary edema: (3) Acute systolic CHF (congestive heart failure): (4) HFrEF (heart failure with reduced ejection fraction): (5) NSTEMI (non-ST elevated myocardial infarction): (6) Cardiomyopathy: Plan Acute systolic heart failure exacerbation Acute pulmonary edema 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 Pt was initiated on GDMT, BB, hydralazine and Imdur due to renal failure, spironolactone. -SGLT2 not started due to renal failure. Can be re-visted later down the road/outpatient. -IV diuresis as tolerated -Ischemic workup as per cardiology. Plan for lexiscan MPI today -Oxygen supplementation as needed -Monitor electrolytes while on diuretics -CPAP at night and as needed Afib with RVR New diagnosis of Afib -rate better controlled -Transitioned to oral Cardizem -Started on Eliquis 2.5 mg BID -Continue on Amiodarone per cardio -Cardiology following -Cardiac monitoring YOJANA on CKD -Baseline seems around Cr. 1.8. -Cr today 2.5 uptrending from prior. Nephro was consulted -Lasix on hold -PT has Ruiz catheter for accurate output. -UA obtained, seems positive for UTI. Continue IV Rocephin to complete 5 days. -renal US > no mass or hydronephrosis. -Nephrology following, input appreciated. Diet: healthy heart DVT ppx: Eliquis Code status: Full Status: inpatient Discussed with patient and Rosalba at bedside. All questions answered. In agreement with the above plan Plan for MPI stress today. Wean off oxygen as tolerated, if remains hypoxic, will consider further workup. Jersey Quigley MD Internal Medicine Hospitalist Attending Physician Documented By: Jersey Bess MD 04/15/24 11 54 Signed By: 04/15/24 1212 [facility]02-23-2025 Progress note Author Jersey Bess [facility] Note Date/Time April 14, 2024 1:43pm [facility] [address] [place] [address] Hospitalist Progress Note Signed Patient: Corwin Muller MR#: [id number] : 1945 Acct:[id number] Age/Sex: 79 / M Adm Date: 5 Loc: 4 Room: [address] [place] [address] Type: ADM IN Attending Dr: Jersey Bess MD Copies to: ~ Date of Service: 04/14/2024 Subjective Subjective Narrative: Patient was seen and evaluated at bedside. Oxygen requirements still at 6 L, rate is better controlled,. Cr a bit improving. Nephrology following. Cardiologyon and following. Pt denies chest pain, dizziness, lightheadedness. He had BM yesterday. Exam Physical Exam Vital Signs: Temp Pulse Resp BP Pulse Ox O2 Del Method O2 Flow Rate 97.4 F L 114 H 17 101/64 96 Nasal Cannula 6 04/14/24 09:00 04/14/24 13:00 04/14/24 13:00 04/14/24 13:00 04/14/24 13:00 04/14/24 13:00 04/14/24 13:00 FiO2 50 04/12/24 04:00 Narrative: Const General: cooperative HEENT Normal oropharyngeal mucosa without any ulcers or exudates Eyes: Conjunctiva normal Pulmonary Auscultation: slightly diminished breath sounds , no crackles, no wheezes Cardiovascular Rate: normal rate Rhythm: irregular rhythm Heart Sounds: S1 normal, S2 normal and no murmurs GI Inspection: non-distended Palpation: soft, not firm and nontender. No rigidity or rebound. Deferred Neuro General: alert, awake and oriented x3. No obvious new focal deficit Musculoskeletal: normal range of motion Extrem General: no cyanosis, no pedal edema Psych Appearance: appropriate affect. Grossly normal Objective Lab Results 04/14/24 04:24 04/14/24 04:24 Microbiology Results Microbiology 04/12/24 10:01 Urine - Ruiz Urine Culture - Preliminary Staphylococcus epidermidis Meds Allergies and Active Meds Allergies No Known Allergies Allergy (Verified 04/09/24 14:28) Active Meds: Active Medications Generic Name Dose Route Start Last Admin Trade Name Docq PRN Reason Stop Dose Admin Acetaminophen 1,000 mg 04/10/24 04:05 Acetaminophen 500 Mg Tablet PO 04/10/25 04:04 Q6HR PRN Pain Scale 1 - 3 or fever Amiodarone HCl 400 mg 04/11/24 14:00 04/14/24 09:16 Amiodarone 200 Mg Tablet PO 04/11/25 13:59 400 mg TID BLESSING Administration Apixaban 2.5 mg 04/12/24 21:00 04/14/24 09:17 Apixaban 2.5 Mg Tablet PO 04/12/25 20:59 2.5 mg BID BLESSING Administration Aspirin 81 mg 04/11/24 09:00 04/14/24 09:15 Aspirin 81 Mg Tablet.Dr PO 04/11/25 08:59 81 mg DAILY BLESSING Administration Diltiazem HCl 360 mg 04/15/24 09:00 Diltiazem Cd.24hr 180 Mg Cap.Er.24h PO 04/15/25 08:59 DAILY BLESSING Furosemide 40 mg 04/12/24 16:00 04/14/24 09:16 Furosemide 40 Mg Tablet PO 04/12/25 15:59 40 mg BID@0800,1600 BLESSING Administration Hydralazine HCl 25 mg 04/12/24 21:00 04/14/24 09:17 Hydralazine 25 Mg Tablet PO 04/12/25 20:59 25 mg BID BLESSING Administration Ceftriaxone Sodium 1 gm in 50 mls @ 100 mls/hr 04/12/24 11:00 04/14/24 11:29 Rocephin IV 100 mls/hr Q24H BLESSING Administration Isosorbide Mononitrate 30 mg 04/13/24 06:00 04/14/24 05:50 Isosorbide Mononitrate 24hr Er 30 Mg Tab.Er.24h PO 04/13/25 05:59 30 mg DAILY.6A BLESSING Administration Metoprolol Succinate 50 mg 04/13/24 21:00 04/14/24 09:17 Metoprolol Succinate 50 Mg Tab.Er.24h PO 04/13/25 20:59 50 mg BID BLESSING Administration Morphine Sulfate 2 mg 04/10/24 04:05 Morphine Sulfate 2 Mg/Ml Vial IV-PUSH Q4H PRN Pain Scale 8 - 10 Ondansetron HCl 4 mg 04/10/24 04:05 Ondansetron 4 Mg/2 Ml Vial IV-PUSH 04/10/25 04:04 Q6H PRN Nausea And Vomiting Potassium Chloride 20 meq 04/13/24 09:00 04/14/24 09:15 Potassium Chloride Er 20 Meq Tab.Er.Prt PO 04/13/25 08:59 20 meq DAILY BLESSING Administration Sodium Chloride 0 ml 04/10/24 06:00 04/14/24 12:55 Sodium Chloride 0.9 % 10 Ml Syringe IV-PUSH 04/10/25 05:59 10 ml QSHIFT BLESSING Administration Spironolactone 12.5 mg 04/12/24 20:00 04/14/24 09:16 Spironolactone 12.5 Mg Tablet PO 04/12/25 19:59 12.5 mg DAILY BLESSING Administration A&P - Hospitalist Assessment/Plan (1) Acute hypoxic respiratory failure: (2) Acute pulmonary edema: (3) Acute systolic CHF (congestive heart failure): (4) HFrEF (heart failure with reduced ejection fraction): (5) NSTEMI (non-ST elevated myocardial infarction): (6) Cardiomyopathy: Plan Acute systolic heart failure exacerbation Acute pulmonary edema 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 Pt was initiated on GDMT, BB, hydralazine and Imdur due to renal failure, Lasix. -SGLT2 not started due to renal failure. Can be re-visted later down the road/outpatient. -IV diuresis -Ischemic workup as per cardiology. Plan for lexiscan MPI tomorrow -Oxygen supplementation as needed -Monitor electrolytes while on diuretics -CPAP at night and as needed Afib with RVR New diagnosis of Afib -rate better controlled -Transitioned to oral Cardizem -Started on Eliquis 2.5 mg BID -Continue on Amiodarone per cardio -Cardiology following -Cardiac monitoring YOJANA on CKD -Baseline seems around Cr. 1.8. -Cr today 2.4 uptrending from prior. Nephro was consulted -Continue Lasix to 40 mg PO BID -PT has Ruiz catheter for accurate output. -UA obtained, seems positive for UTI. Continue IV Rocephin to complete 5 days. -renal US > no mass or hydronephrosis. -Nephrology following, input appreciated. Diet: healthy heart DVT ppx: Eliquis Code status: Full Status: inpatient Discussed with patient at bedside. All questions answered. In agreement with theabove plan Plan for MPI stress tomorrow. NPO midnight Jersey Quigley MD Internal Medicine Hospitalist Attending Physician Documented By: Jersey Bess MD 04/14/24 13 37 Signed By: <Electronically signed by Jersey Bess MD> 04/14/24 1343 [facility] Work Phone: [phone] 161-282902-23-2025 Progress note Author Tobi Monroy [facility] Note Date/Time April 14, 2024 1:06pm [facility] [address] [place] [address] Nephrology Progress Note Signed Patient: Corwin Muller MR#: [id number] : 1945 Acct:[id number] Age/Sex: 79 / M Adm Date: 5 Loc: Room: [address] [place] [address] Type: ADM IN Attending Dr: Jersey Bess MD Copies to: ~ Date of Service: 04/14/2024 Subjective Subjective Narrative: This is an 79 yo male with PMHx of chronic kidney disease stage IIIb, hyperlipidemia, atrial tachycardia, hypertension and arthritis that was at his doctor's appointment for injections to his knees when his vitals were checked. He was sent to the emergency room due to heart rate in the 140s. He denied any symptoms whatsoever at that time. He was evaluated in the [facility] with EKG showing SVT and inverted T waves. He received diltiazem bolus and drip. Chest x-ray with bilateral interstitial infiltrates. He was given digoxin, Lasix, morphine and developed respiratory distress with oxygen sat 87% on 5 L nasal cannula. He was then placed on BiPAP and Ruiz was placed as well. No leukocytosis noted, BUN 29, creatinine 2.62, elevated troponin at 910 and BNP 8857. Patient was admitted for NSTEMI, CHF, and new onset A-fib. Echo showed EF 35 to 40% with moderate global hypokinesis of LV. Cardiology was consulted and recommended delaying ischemic evaluation after renal function has improved due to risk of contrast-induced nephropathy. He was started on GDMT forCHF including carvedilol, Imdur, hydralazine and Farxiga. Farxiga was stopped due to the hypotension. Nephrology was consulted due to YOJANA, fluid overload. INTERIM HISTORY Patient was seen and examined bedside. He is feeling better than yesterday denies any chest pain palpation cough nausea vomiting diarrhea shortness of breath. He either has YOJANA on CKD likely due to cardiorenal syndrome. His renal functionhas been stable and is making urine output with the Lasix. He is still in A-fib with RVR. Cardiology has been following the patient and adjust his dose of the Cardizem. He is currently on IV ceftriaxone for UTI urine cultures positive for Staph epidermidis Exam Physical Exam Vital Signs: Temp Pulse Resp BP Pulse Ox O2 Del Method O2 Flow Rate 97.4 F L 113 H 17 117/74 94 L Nasal Cannula 6 04/14/24 09:00 04/14/24 09:00 04/14/24 09:00 04/14/24 09:00 04/14/24 09:00 04/14/24 09:00 04/14/24 09:00 FiO2 50 04/12/24 04:00 Narrative: CONSTITUTIONAL: Alert, oriented HEAD: Normocephalic, atraumatic EYES: EOMI, pupils equal and reactive, conjunctiva normal ENT: External auditory canals wnl RESPIRATORY: Lungs clear bilaterally, symmetric chest rise CARDIOVASCULAR: Irregular rhythm and tachycardic rate, no murmurs ABDOMEN: Soft, non-tender, non-distended, normal bowel sounds SKIN: Intact, no rash, no trauma EXTREM: Trace edema, NO cyanosis NEURO: Nno focal neurologic signs PSYCHIATRIC: Normal affect, good insight Objective Intake and Output I&O: Intake & Output 04/11/24 04/12/24 04/13/24 04/14/24 23:59 23:59 23:59 23:59 Intake Total 1225 / 1225 1380 / 1380 1050 / 1050 400 / 400 Output Total 3775 / 3775 1200 / 1200 2935 / 2935 1750 / 1750 Balance -2550 / -2550 180 / 180 -1885 / -1885 -1350 / -1350 Weight 112.1 kg 112.4 kg 111.1 kg Meds and Allergies Meds: Active Medications Acetaminophen (Acetaminophen 500 Mg Tablet) 1,000 mg PO Q6HR PRN PRN Reason: Pain Scale 1 - 3 or fever Stop: 04/10/25 04:04 Amiodarone HCl (Amiodarone 200 Mg Tablet) 400 mg PO TID [facility] Stop: 04/11/25 13:59 Last Admin: 04/14/24 09:16 Dose: 400 mg Apixaban (Apixaban 2.5 Mg Tablet) 2.5 mg PO BID [facility] Stop: 04/12/25 20:59 Last Admin: 04/14/24 09:17 Dose: 2.5 mg Aspirin (Aspirin 81 Mg Tablet.Dr) 81 mg PO DAILY [facility] Stop: 04/11/25 08:59 Last Admin: 04/14/24 09:15 Dose: 81 mg Diltiazem HCl (Diltiazem Cd.24hr 180 Mg Cap.Er.24h) 360 mg PO DAILY [facility] Stop: 04/15/25 08:59 Furosemide (Furosemide 40 Mg Tablet) 40 mg PO BID@0800,1600 [facility] Stop: 04/12/25 15:59 Last Admin: 04/14/24 09:16 Dose: 40 mg Hydralazine HCl (Hydralazine 25 Mg Tablet) 25 mg PO BID [facility] Stop: 04/12/25 20:59 Last Admin: 04/14/24 09:17 Dose: 25 mg Ceftriaxone Sodium (Rocephin) 1 gm in 50 mls @ 100 mls/hr IV Q24H [facility] Last Admin: 04/14/24 11:29 Dose: 100 mls/hr Isosorbide Mononitrate (Isosorbide Mononitrate 24hr Er 30 Mg Tab.Er.24h) 30 mg PO DAILY.6A [facility] Stop: 04/13/25 05:59 Last Admin: 04/14/24 05:50 Dose: 30 mg Metoprolol Succinate (Metoprolol Succinate 50 Mg Tab.Er.24h) 50 mg PO BID [facility] Stop: 04/13/25 20:59 Last Admin: 04/14/24 09:17 Dose: 50 mg Morphine Sulfate (Morphine Sulfate 2 Mg/Ml Vial) 2 mg IV-PUSH Q4H PRN PRN Reason: Pain Scale 8 - 10 Ondansetron HCl (Ondansetron 4 Mg/2 Ml Vial) 4 mg IV-PUSH Q6H PRN PRN Reason: Nausea And Vomiting Stop: 04/10/25 04:04 Potassium Chloride (Potassium Chloride Er 20 Meq Tab.Er.Prt) 20 meq PO DAILY BLESSING Stop: 04/13/25 08:59 Last Admin: 04/14/24 09:15 Dose: 20 meq Sodium Chloride (Sodium Chloride 0.9 % 10 Ml Syringe) 0 ml IV-PUSH QSHIFT BLESSING Stop: 04/10/25 05:59 Last Admin: 04/13/24 21:31 Dose: 10 ml Spironolactone (Spironolactone 12.5 Mg Tablet) 12.5 mg PO DAILY BLESSING Stop: 04/12/25 19:59 Last Admin: 04/14/24 09:16 Dose: 12.5 mg Allergies No Known Allergies Allergy (Verified 04/09/24 14:28) Results - Nephrology Labs 04/14/24 04:24 04/14/24 04:24 Labs: 04/14/24 04:24 BUN 36 H Creatinine 2.30 H Radiology Impressions Impressions - last 24 hours: Any impression(s) listed above is documentation that was entered by the reading physician into a diagnostic report(s) for Corwin Muller. I have reviewed the report(s) and am incorporating any findings in the treatment plan of this patient where applicable. A&P - Nephrology Assessment/Plan (1) Acute kidney injury superimposed on CKD: Assessment/Problem Details: YOJANA on CKD due to cardiorenal syndrome in setting of A-fib with RVR and acute CHF exacerbation. He has no evidence of obstructive uropathy on renal ultrasound. (2) NSTEMI (non-ST elevated myocardial infarction): Assessment/Problem Details: Patient was admitted for [place] and his echocardiogram showed EF 35 to 40%. He is currently on aspirin and carvedilol. Cardiology is following the patient and have ordered stress test. (3) CKD (chronic kidney disease) stage 3, GFR 30-59 ml/min: Assessment/Problem Details: He has a longstanding CKD due to the hypertension baseline serum creatinine was 1.8 mg/dL. Patient was following with the PCP for CKD care. (4) Paroxysmal atrial fibrillation with RVR: Assessment/Problem Details: Cardiology following, on heparin, amiodarone, metoprolol, diltiazem, aspirin. (5) Acute hypoxic respiratory failure: Assessment/Problem Details: Acute hypoxic respiratory failure due to CHF exacerbation and A-fib RVR. (6) Acute systolic CHF (congestive heart failure): Assessment/Problem Details: EF 35 to 40%. On goal-directed medical therapy per cardiology. Cardiology following, on hydralazine, isosorbide, Lasix. Holding off on SGLT2 inhibitor due to renal dysfunction. (7) UTI (urinary tract infection): (8) Hypertension: Assessment/Problem Details: His blood pressure is within the goal. Plan * Continue Lasix to 40mg PO BID * Continue spironolactone 12.5 mg daily. * Check renal function daily * Monitor intake and output * Follow urine cultures and adjust antibiotic as needed. * Check daily weights * Documented By: Tobi Monroy MD 04/14/24 1257 Signed By: <Electronically signed by Tobi Monroy MD> 04/14/24 1306 [facility] Work Phone: [phone] 121-828602-23-2025 Progress note Author Bubba Jessica [facility] Note Date/Time April 14, 2024 12:48pm [facility] [address] [place] [address] Cardiology Progress Note Signed Patient: Corwin Muller MR#: [id number] : 1945 Acct:[id number] Age/Sex: 79 / M Adm Date: 5 Loc: Room: [address] [place] [address] Type: ADM IN Attending Dr: Jersey Bess MD Copies to: ~ Date of Service: 04/14/2024 Subjective Principal diagnosis: Congestive heart failure/atrial fibrillation Interval history: Mr. Muller is a 79 year old male was sent by his physician to the hospital because of observation of worsening respiratory status and tachycardia. He was evaluated in the emergency room at [place]. The patient described progressive shortness of breath over the last few days. On initial evaluation the patient was noted to be tachycardic with heart rate around 140. There was some concern about SVT and the patient was given a diltiazem but it appears that his EKG is more consistent with sinus tachycardia. Chest x-ray appears to be consistent with pulmonary edema. Patient experiencing respiratory distress which ultimately improved with IV diuresis and O2 supplementation. Troponin was significantly elevated when the patient was sent to [facility] for further care. The patient denies chest pain or lower extremity edema. He described orthopnea. He denies any previous history of coronary disease congestive heart failure valvular heart disease. On the presentation hewas noted to have significant renal insufficiency. Echocardiogram showed LV systolic dysfunction. Peak troponin close to 9000 creatinine was 2.6. The patient reported improvement of his clinical status and denies chest pain. He is hemodynamically stable. His heart rate has improved. His echocardiogram showed LV systolic dysfunction official interpretation was around 35-40% but I believe it is more consistent with around 25 to 30% Cardiology follow-up 04/11/2024: Patient is resting in bed with his daughter at the bedside. He appears to be more comfortable compared to when he came in. Hewent into atrial fibrillation with RVR this morning for which I initiated therapy with IV diltiazem and intravenous heparin. He is being diuresed with careful monitoring of renal function. The patient has no previous cardiac history whatsoever and all of this is new. Discussed the options of therapy with the patient and the need for further cardiac medications. The focus at thepresent time is on improving heart failure and hopefully restoring normal sinus rhythm. Cardiology follow-up 04/12/2024: The patient is able to lay down flat without difficulties and has no lower extremity edema no cough and no dyspnea at rest. Renal function has worsened creatinine of 2.6 mg/dL. Renal ultrasound was performed today. Nephrology is following the patient. His heart rate is under better control on Cardizem drip and on amiodarone. He is anticoagulated now with reduced dose Eliquis 2.5 mg twice daily. Will add spironolactone 12.5 mg daily and due to hypotension cut back on hydralazine and nitrates. Cardiology follow-up 04/13/2024: No complaints today. Tolerating medications well. Spoke at length with family who are in the room. Creatinine is marginally improved today from 2.6--->2.4. Continues on Cardizem drip with A-fib anywhere between 80-120 bpm. Cardiology follow-up 04/14/2024: Heart rate is better controlled. Creatinine continues to improve 2.4--->2.3 today. Exam Physical Exam Vital Signs: Temp Pulse Resp BP Pulse Ox O2 Del Method O2 Flow Rate 97.4 F L 113 H 17 117/74 94 L Nasal Cannula 6 04/14/24 09:00 04/14/24 09:00 04/14/24 09:00 04/14/24 09:00 04/14/24 09:00 04/14/24 09:00 04/14/24 09:00 FiO2 50 04/12/24 04:00 Const General: cooperative, comfortable, no acute distress and well developed Nutritional Appearance: overweight Orientation: alert, awake and oriented x3 HEENT Head: normal to inspection, normocephalic and atraumatic Ears: hearing grossly normal bilaterally Nose: external nose normal Face and sinus: normal facial exam Mouth: oral mucosae normal Eyes General: appearance normal, both eyes and all related structures Conjunctivae: conjunctivae normal Pupils: PERRL Neck Neck: normal visual inspection, trachea midline, supple and no lymphadenopathy noted Neck mass: No Thyroid: thyroid normal Carotids: normal carotid upstroke Chest Chest palpation & inspection: normal inspection of the chest Resp Effort & Inspection: normal respiratory effort Auscultation: clear to auscultation bilaterally, crackles, rales and rhonchi Cardio Jugular venous pressure: no JVD Palpation: normal PMI Rate: regular rate and tachycardic Rhythm: regular rhythm and abnormal rhythm irregularly irregular Heart Sounds: S1 normal, S2 normal and murmur systolic II/ and at the right sternal border GI Inspection: normal to inspection Palpation: soft and no hepatosplenomegaly Percussion: normal to percussion Auscultation: normal bowel sounds Skin General: no rashes or lesions noted and dry skin Neuro General: patient alert, patient awake, patient oriented x3, tone normal and moves all extremities Extrem General: full ROM, capillary refill normal and no clubbing, cyanosis or edema Psych Mental Status: mental status grossly normal Objective Labs 04/14/24 04:24 04/14/24 04:24 Labs: Laboratory Results - last 24 hr 04/14/24 04:24 Corrected WBC 9.5 RBC 4.80 Hgb 14.6 Hct 42.1 MCV 87.8 MCH 30.3 MCHC 34.6 RDW 14.1 Plt Count 278 MPV 7.7 PHA Creatinine Clear 34.97 Sodium 138 Potassium 3.9 Chloride 105 Carbon Dioxide 23.2 Anion Gap 13.7 BUN 36 H Creatinine 2.30 H Est GFR (CKD-EPI) 28.004 Glucose 103 H Calcium 8.8 A&P - Cardiology (1) NSTEMI (non-ST elevated myocardial infarction): Assessment/Problem Details: Troponin rise was just under 1000 pg/mL and was not associated with chest pain. Ejection fraction is severely reduced Code(s): I21.4 - Non-ST elevation (NSTEMI) myocardial infarction (2) HFrEF (heart failure with reduced ejection fraction): Assessment/Problem Details: Patient is able to lay down flat with no evidence of volume overload clinically but his chest x-ray on presentation showed pulmonary edema. Code(s): I50.20 - Unspecified systolic (congestive) heart failure (3) Chronic kidney disease: Assessment/Problem Details: Nephrology is following the patient, ultrasound of the kidney was performed today is not yet read Qualifiers: Chronic kidney disease stage: stage 3 (moderate) Chronic kidney diseasestage 3 subtype: stage 3b (GFR 30-44) Qualified Code(s): N18.32 - Chronic kidney disease, stage 3b Code(s): N18.9 - Chronic kidney disease, unspecified (4) Paroxysmal atrial fibrillation with RVR: Assessment/Problem Details: This is a new onset since admission. He is on loading dose of amiodarone, heartrate is controlled relatively speaking and he is anticoagulated with Eliquis Code(s): I48.0 - Paroxysmal atrial fibrillation Plan Assessment 1. Progressive shortness of breath due to acute pulmonary edema 2. Non-ST elevation myocardial infarction 3. Renal insufficiency with creatinine 2.6 unclear whether it is acute on chronic 4. New onset atrial fibrillation with RVR 5. Cardiomyopathy with LVEF based on my review in the range of 25-30%, ischemiccomponent need to be ruled out Plan 1. Currently lasix 40mg iv bid. He is meeting his diuresis goal of -1.5L daily. Continue with cautious diuresis with close observation of renal function. 2. Continue IV heparin and aspirin. Continue p.o. amiodarone. 3. Increase PO Cardizem dose and wean off IV drip. Switch beta-susie to metoprolol succinate. Goal in future will be to transition him to metoprolol forrate control and off Cardizem given his cardiomyopathy. 4. Plan for Lexiscan stress MPI on Monday. NPO after MN. Documented By: Bubba Jessica MD 03/24 05/14 1244 Signed By: <Electronically signed by Bubba Jessica MD> 04/14/24 1248 [facility] Work Phone: 1(655) 546-462202-23-2025 [place] [address] Hospitalist Progress Note Signed Patient: Corwin Muller MR#: [id number] : 1945 Acct:[id number] Age/Sex: 79 / M Adm Date: 5 Loc: Room: [address] [place] [address] Type: ADM IN Attending Dr: Jersey Bess MD Copies to: ~ Date of Service: 04/14/2024 Subjective Subjective Narrative: Patient was seen and evaluated at bedside. Oxygen requirements still at 6 L, rate is better controlled,. Cr a bit improving. Nephrology following. Cardiologyon and following. Pt denies chest pain, dizziness, lightheadedness. He had BM yesterday. Exam Physical Exam Vital Signs: Temp Pulse Resp BP Pulse Ox O2 Del Method O2 Flow Rate 97.4 F L 114 H 17 101/64 96 Nasal Cannula 6 04/14/24 09:00 04/14/24 13:00 04/14/24 13:00 04/14/24 13:00 04/14/24 13:00 04/14/24 13:00 04/14/24 13:00 FiO2 50 04/12/24 04:00 Narrative: Const General: cooperative HEENT Normal oropharyngeal mucosa without any ulcers or exudates Eyes: Conjunctiva normal Pulmonary Auscultation: slightly diminished breath sounds , no crackles, no wheezes Cardiovascular Rate: normal rate Rhythm: irregular rhythm Heart Sounds: S1 normal, S2 normal and no murmurs GI Inspection: non-distended Palpation: soft, not firm and nontender. No rigidity or rebound. Deferred Neuro General: alert, awake and oriented x3. No obvious new focal deficit Musculoskeletal: normal range of motion Extrem General: no cyanosis, no pedal edema Psych Appearance: appropriate affect. Grossly normal Objective Lab Results 04/14/24 04:24 04/14/24 04:24 Microbiology Results Microbiology 04/12/24 10:01 Urine - Ruiz Urine Culture - Preliminary Staphylococcus epidermidis Meds Allergies and Active Meds Allergies No Known Allergies Allergy (Verified 04/09/24 14:28) Active Meds: Active Medications Generic Name Dose Route Start Last Admin Trade Name Freq PRN Reason Stop Dose Admin Acetaminophen 1,000 mg 04/10/24 04:05 Acetaminophen 500 Mg Tablet PO 04/10/25 04:04 Q6HR PRN Pain Scale 1 - 3 or fever Amiodarone HCl 400 mg 04/11/24 14:00 04/14/24 09:16 Amiodarone 200 Mg Tablet PO 04/11/25 13:59 400 mg TID BLESSING Administration Apixaban 2.5 mg 04/12/24 21:00 04/14/24 09:17 Apixaban 2.5 Mg Tablet PO 04/12/25 20:59 2.5 mg BID BLESSING Administration Aspirin 81 mg 04/11/24 09:00 04/14/24 09:15 Aspirin 81 Mg Tablet.Dr PO 04/11/25 08:59 81 mg DAILY BLESSING Administration Diltiazem HCl 360 mg 04/15/24 09:00 Diltiazem Cd.24hr 180 Mg Cap.Er.24h PO 04/15/25 08:59 DAILY BLESSING Furosemide 40 mg 04/12/24 16:00 04/14/24 09:16 Furosemide 40 Mg Tablet PO 04/12/25 15:59 40 mg BID@0800,1600 BLESSING Administration Hydralazine HCl 25 mg 04/12/24 21:00 04/14/24 09:17 Hydralazine 25 Mg Tablet PO 04/12/25 20:59 25 mg BID BLESSING Administration Ceftriaxone Sodium 1 gm in 50 mls @ 100 mls/hr 04/12/24 11:00 04/14/24 11:29 Rocephin IV 100 mls/hr Q24H BLESSING Administration Isosorbide Mononitrate 30 mg 04/13/24 06:00 04/14/24 05:50 Isosorbide Mononitrate 24hr Er 30 Mg Tab.Er.24h PO 04/13/25 05:59 30 mg DAILY.6A BLESSING Administration Metoprolol Succinate 50 mg 04/13/24 21:00 04/14/24 09:17 Metoprolol Succinate 50 Mg Tab.Er.24h PO 04/13/25 20:59 50 mg BID BLESSING Administration Morphine Sulfate 2 mg 04/10/24 04:05 Morphine Sulfate 2 Mg/Ml Vial IV-PUSH Q4H PRN Pain Scale 8 - 10 Ondansetron HCl 4 mg 04/10/24 04:05 Ondansetron 4 Mg/2 Ml Vial IV-PUSH 04/10/25 04:04 Q6H PRN Nausea And Vomiting Potassium Chloride 20 meq 04/13/24 09:00 04/14/24 09:15 Potassium Chloride Er 20 Meq Tab.Er.Prt PO 04/13/25 08:59 20 meq DAILY BLESSING Administration Sodium Chloride 0 ml 04/10/24 06:00 04/14/24 12:55 Sodium Chloride 0.9 % 10 Ml Syringe IV-PUSH 04/10/25 05:59 10 ml QSHIFT BLESSING Administration Spironolactone 12.5 mg 04/12/24 20:00 04/14/24 09:16 Spironolactone 12.5 Mg Tablet PO 04/12/25 19:59 12.5 mg DAILY BLESSING Administration A&P - Hospitalist Assessment/Plan (1) Acute hypoxic respiratory failure: (2) Acute pulmonary edema: (3) Acute systolic CHF (congestive heart failure): (4) HFrEF (heart failure with reduced ejection fraction): (5) NSTEMI (non-ST elevated myocardial infarction): (6) Cardiomyopathy: Plan Acute systolic heart failure exacerbation Acute pulmonary edema 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 Pt was initiated on GDMT, BB, hydralazine and Imdur due to renal failure, Lasix. -SGLT2 not started due to renal failure. Can be re-visted later down the road/outpatient. -IV diuresis -Ischemic workup as per cardiology. Plan for lexiscan MPI tomorrow -Oxygen supplementation as needed -Monitor electrolytes while on diuretics -CPAP at night and as needed Afib with RVR New diagnosis of Afib -rate better controlled -Transitioned to oral Cardizem -Started on Eliquis 2.5 mg BID -Continue on Amiodarone per cardio -Cardiology following -Cardiac monitoring YOJANA on CKD -Baseline seems around Cr. 1.8. -Cr today 2.4 uptrending from prior. Nephro was consulted -Continue Lasix to 40 mg PO BID -PT has Ruiz catheter for accurate output. -UA obtained, seems positive for UTI. Continue IV Rocephin to complete 5 days. -renal US > no mass or hydronephrosis. -Nephrology following, input appreciated. Diet: healthy heart DVT ppx: Eliquis Code status: Full Status: inpatient Discussed with patient at bedside. All questions answered. In agreement with theabove plan Plan for MPI stress tomorrow. NPO midnight Jersey Quigley MD Internal Medicine Hospitalist Attending Physician Documented By: Jersey Bess MD 04/14/24 13 37 Signed By: 04/14/24 [facility]3 [facility]02-23-2025 [place] [address] Nephrology Progress Note Signed Patient: Corwin Muller MR#: [id number] : 1945 Acct:[id number] Age/Sex: 79 / M Adm Date: 5 Loc: Room: [address] [place] [address] Type: ADM IN Attending Dr: Jersey Bess MD Copies to: ~ Date of Service: 04/14/2024 Subjective Subjective Narrative: This is an 79 yo male with PMHx of chronic kidney disease stage IIIb, hyperlipidemia, atrial tachycardia, hypertension and arthritis that was at his doctor's appointment for injections to his knees when his vitals were checked. He was sent to the emergency room due to heart rate in the 140s. He denied any symptoms whatsoever at that time. He was evaluated in the [facility] with EKG showingSVT and inverted T waves. He received diltiazem bolus and drip. Chest x-ray with bilateral interstitial infiltrates. He was given digoxin, Lasix, morphine and developed respiratory distress with oxygen sat 87% on 5 L nasal cannula. He was then placed on BiPAP and Ruiz was placed as well. No leukocytosis noted, BUN 29, creatinine 2.62, elevated troponin at 910 and BNP 8857. Patient was admitted for NSTEMI, CHF, and new onset A-fib. Echo showed EF 35 to 40% with moderate global hypokinesis of LV. Cardiology was consulted and recommended delaying ischemic evaluation after renal function has improved due to risk of contrast-induced nephropathy. He was started on GDMT forCHF including carvedilol, Imdur, hydralazine and Farxiga. Farxiga was stopped due to the hypotension. Nephrology was consulted due to YOJANA, fluid overload. INTERIM HISTORY Patient was seen and examined bedside. He is feeling better than yesterday denies any chest pain palpation cough nausea vomiting diarrhea shortness of breath. He either has YOJANA on CKD likely due to cardiorenal syndrome. His renal functionhas been stable and is making urine output with the Lasix. He is still in A-fib with RVR. Cardiology has been following the patient and adjust his dose of theCardizem. He is currently on IV ceftriaxone for UTI urine cultures positive for Staph epidermidis Exam Physical Exam Vital Signs: Temp Pulse Resp BP Pulse Ox O2 Del Method O2 Flow Rate 97.4 F L 113 H 17 117/74 94 L Nasal Cannula 6 04/14/24 09:00 04/14/24 09:00 04/14/24 09:00 04/14/24 09:00 04/14/24 09:00 04/14/24 09:00 04/14/24 09:00 FiO2 50 04/12/24 04:00 Narrative: CONSTITUTIONAL: Alert, oriented HEAD: Normocephalic, atraumatic EYES: EOMI, pupils equal and reactive, conjunctiva normal ENT: External auditory canals wnl RESPIRATORY: Lungs clear bilaterally, symmetric chest rise CARDIOVASCULAR: Irregular rhythm and tachycardic rate, no murmurs ABDOMEN: Soft, non-tender, non-distended, normal bowel sounds SKIN: Intact, no rash, no trauma EXTREM: Trace edema, NO cyanosis NEURO: Nno focal neurologic signs PSYCHIATRIC: Normal affect, good insight Objective Intake and Output I&O: Intake & Output 04/11/24 04/12/24 04/13/24 04/14/24 23:59 23:59 23:59 23:59 Intake Total 1225 / 1225 1380 / 1380 1050 / 1050 400 / 400 Output Total 3775 / 3775 1200 / 1200 2935 / 2935 1750 / 1750 Balance -2550 / -2550 180 / 180 -1885 / -1885 -1350 / -1350 Weight 112.1 kg 112.4 kg 111.1 kg Meds and Allergies Meds: Active Medications Acetaminophen (Acetaminophen 500 Mg Tablet) 1,000 mg PO Q6HR PRN PRN Reason: Pain Scale 1 - 3 or fever Stop: 04/10/25 04:04 Amiodarone HCl (Amiodarone 200 Mg Tablet) 400 mg PO TID [facility] Stop: 04/11/25 13:59 Last Admin: 04/14/24 09:16 Dose: 400 mg Apixaban (Apixaban 2.5 Mg Tablet) 2.5 mg PO BID [facility] Stop: 04/12/25 20:59 Last Admin: 04/14/24 09:17 Dose: 2.5 mg Aspirin (Aspirin 81 Mg Tablet.) 81 mg PO DAILY [facility] Stop: 04/11/25 08:59 Last Admin: 04/14/24 09:15 Dose: 81 mg Diltiazem HCl (Diltiazem Cd.24hr 180 Mg Cap.Er.24h) 360 mg PO DAILY [facility] Stop: 04/15/25 08:59 Furosemide (Furosemide 40 Mg Tablet) 40 mg PO BID@0800,1600 [facility] Stop: 04/12/25 15:59 Last Admin: 04/14/24 09:16 Dose: 40 mg Hydralazine HCl (Hydralazine 25 Mg Tablet) 25 mg PO BID [facility] Stop: 04/12/25 20:59 Last Admin: 04/14/24 09:17 Dose: 25 mg Ceftriaxone Sodium (Rocephin) 1 gm in 50 mls @ 100 mls/hr IV Q24H [facility] Last Admin: 04/14/24 11:29 Dose: 100 mls/hr Isosorbide Mononitrate (Isosorbide Mononitrate 24hr Er 30 Mg Tab.Er.24h) 30 mg PO DAILY.6A [facility] Stop: 04/13/25 05:59 Last Admin: 04/14/24 05:50 Dose: 30 mg Metoprolol Succinate (Metoprolol Succinate 50 Mg Tab.Er.24h) 50 mg PO BID [facility] Stop: 04/13/25 20:59 Last Admin: 04/14/24 09:17 Dose: 50 mg Morphine Sulfate (Morphine Sulfate 2 Mg/Ml Vial) 2 mg IV-PUSH Q4H PRN PRN Reason: Pain Scale 8 - 10 Ondansetron HCl (Ondansetron 4 Mg/2 Ml Vial) 4 mg IV-PUSH Q6H PRN PRN Reason: Nausea And Vomiting Stop: 04/10/25 04:04 Potassium Chloride (Potassium Chloride Er 20 Meq Tab.Er.Prt) 20 meq PO DAILY [facility] Stop: 04/13/25 08:59 Last Admin: 04/14/24 09:15 Dose: 20 meq Sodium Chloride (Sodium Chloride 0.9 % 10 Ml Syringe) 0 ml IV-PUSH QSHIFT [facility] Stop: 04/10/25 05:59 Last Admin: 04/13/24 21:31 Dose: 10 ml Spironolactone (Spironolactone 12.5 Mg Tablet) 12.5 mg PO DAILY [facility] Stop: 04/12/25 19:59 Last Admin: 04/14/24 09:16 Dose: 12.5 mg Allergies No Known Allergies Allergy (Verified 04/09/24 14:28) Results - Nephrology Labs 04/14/24 04:24 04/14/24 04:24 Labs: 04/14/24 04:24 BUN 36 H Creatinine 2.30 H Radiology Impressions Impressions - last 24 hours: Any impression(s) listed above is documentation that was entered by the reading physician into a diagnostic report(s) for Corwin Muller. I have reviewed the report(s) and am incorporating anyfindings in the treatment plan of this patient where applicable. A&P - Nephrology Assessment/Plan (1) Acute kidney injury superimposed on CKD: Assessment/Problem Details: YOJANA on CKD due to cardiorenal syndrome in setting of A-fib with RVR and acute CHF exacerbation. He has no evidence of obstructive uropathy on renal ultrasound. (2) NSTEMI (non-ST elevated myocardial infarction): Assessment/Problem Details: Patient was admitted for WA and his echocardiogram showed EF 35 to 40%. He is currently on aspirin and carvedilol. Cardiology is following the patient and have ordered stress test. (3) CKD (chronic kidney disease) stage 3, GFR 30-59 ml/min: Assessment/Problem Details: He has a longstanding CKD due to the hypertension baseline serum creatinine was 1.8 mg/dL. Patient was following with the PCP for CKD care. (4) Paroxysmal atrial fibrillation with RVR: Assessment/Problem Details: Cardiology following, on heparin, amiodarone, metoprolol, diltiazem, aspirin. (5) Acute hypoxic respiratory failure: Assessment/Problem Details: Acute hypoxic respiratory failure due to CHF exacerbation and A-fib RVR. (6) Acute systolic CHF (congestive heart failure): Assessment/Problem Details: EF 35 to 40%. On goal-directed medical therapy per cardiology. Cardiology following, on hydralazine, isosorbide, Lasix. Holding off on SGLT2 inhibitor due to renal dysfunction. (7) UTI (urinary tract infection): (8) Hypertension: Assessment/Problem Details: His blood pressure is within the goal. Plan * Continue Lasix to 40mg PO BID * Continue spironolactone 12.5 mg daily. * Check renal function daily * Monitor intake and output * Follow urine cultures and adjust antibiotic as needed. * Check daily weights * Documented By: Tobi Monroy MD 04/14/24 1257 Signed By: 04/14/24 1306 [facility]02-23-2025 [place] [address] Cardiology Progress Note Signed Patient: Corwin Muller MR#: [id number] : 1945 Acct:[id number] Age/Sex: 79 / M Adm Date: 5 Loc: Room: [address] [place] [address] Type: ADM IN Attending Dr: Jersey Bess MD Copies to: ~ Date of Service: 04/14/2024 Subjective Principal diagnosis: Congestive heart failure/atrial fibrillation Interval history: Mr. Muller is a 79 year old male was sent by his physician to the hospital because of observationof worsening respiratory status and tachycardia. He was evaluated in the emergency room at [place]. The patient described progressive shortness of breath over the last few days. On initial evaluation the patient was noted to be tachycardic with heart rate around 140. There was some concern about SVT and the patient was given a diltiazem but it appears that his EKG is more consistent with sinus tachycardia. Chest x-ray appears to be consistent with pulmonary edema. Patient experiencing respiratory distress which ultimately improved with IV diuresis and O2 supplementation. Troponin was significantly elevated when the patient was sent to [facility] for further care. Thepatient denies chest pain or lower extremity edema. He described orthopnea. He denies any previous history of coronary disease congestive heart failure valvular heart disease. On the presentation hewas noted to have significant renal insufficiency. Echocardiogram showed LV systolic dysfunction. Peak troponin close to 9000 creatinine was 2.6. The patient reported improvement of his clinical statusand denies chest pain. He is hemodynamically stable. His heart rate has improved. His echocardiogram showed LV systolic dysfunction official interpretation was around 35-40% but I believe it is more consistent with around 25 to 30% Cardiology follow-up 04/11/2024: Patient is resting in bed with his daughter at the bedside. He appears to be more comfortable compared to when he came in. Hewent into atrial fibrillation with RVR this morning for which I initiated therapy with IV diltiazem and intravenous heparin. He is being diuresed with careful monitoring of renal function. The patient has no previous cardiac history whatsoever and all of this is new. Discussed the options of therapy with the patient and the need for furthercardiac medications. The focus at thepresent time is on improving heart failure and hopefully restoring normal sinus rhythm. Cardiology follow-up 04/12/2024: The patient is able to lay down flat without difficulties and has no lower extremity edema no cough and no dyspnea at rest. Renal function has worsened creatinine of 2.6 mg/dL. Renal ultrasound was performed today. Nephrology is following the patient. His heart rate is under better control on Cardizem drip and on amiodarone. He is anticoagulated now with reduced dose Eliquis 2.5 mg twice daily. Will add spironolactone 12.5 mg daily and due to hypotension cut backon hydralazine and nitrates. Cardiology follow-up 04/13/2024: No complaints today. Tolerating medications well. Spoke at length with family who are in the room. Creatinine is marginally improved today from 2.6--->2.4. Continues on Cardizem drip with A-fib anywhere between 80-120 bpm. Cardiology follow-up 04/14/2024: Heart rate is better controlled. Creatinine continues to improve 2.4--->2.3 today. Exam Physical Exam Vital Signs: Temp Pulse Resp BP Pulse Ox O2 Del Method O2 Flow Rate 97.4 F L 113 H 17 117/74 94 L Nasal Cannula 6 04/14/24 09:00 04/14/24 09:00 04/14/24 09:00 04/14/24 09:00 04/14/24 09:00 04/14/24 09:00 04/14/24 09:00 FiO2 50 04/12/24 04:00 Const General: cooperative, comfortable, no acute distress and well developed Nutritional Appearance: overweight Orientation: alert, awake and oriented x3 HEENT Head: normal to inspection, normocephalic and atraumatic Ears: hearing grossly normal bilaterally Nose: external nose normal Face and sinus: normal facial exam Mouth: oral mucosae normal Eyes General: appearance normal, both eyes and all related structures Conjunctivae: conjunctivae normal Pupils: PERRL Neck Neck: normal visual inspection, trachea midline, supple and no lymphadenopathy noted Neck mass: No Thyroid: thyroid normal Carotids: normal carotid upstroke Chest Chest palpation & inspection: normal inspection of the chest Resp Effort & Inspection: normal respiratory effort Auscultation: clear to auscultation bilaterally, crackles, rales and rhonchi Cardio Jugular venous pressure: no JVD Palpation: normal PMI Rate: regular rate and tachycardic Rhythm: regular rhythm and abnormal rhythm irregularly irregular Heart Sounds: S1 normal, S2 normal and murmur systolic II/ and at the right sternal border GI Inspection: normal to inspection Palpation: soft and no hepatosplenomegaly Percussion: normal to percussion Auscultation: normal bowel sounds Skin General: no rashes or lesions noted and dry skin Neuro General: patient alert, patient awake, patient oriented x3, tone normal and moves all extremities Extrem General: full ROM, capillary refill normal and no clubbing, cyanosis or edema Psych Mental Status: mental status grossly normal Objective Labs 04/14/24 04:24 04/14/24 04:24 Labs: Laboratory Results - last 24 hr 04/14/24 04:24 Corrected WBC 9.5 RBC 4.80 Hgb 14.6 Hct 42.1 MCV 87.8 MCH 30.3 MCHC 34.6 RDW 14.1 Plt Count 278 MPV 7.7 PHA Creatinine Clear 34.97 Sodium 138 Potassium 3.9 Chloride 105 Carbon Dioxide 23.2 Anion Gap 13.7 BUN 36 H Creatinine 2.30 H Est GFR (CKD-EPI) 28.004 Glucose 103 H Calcium 8.8 A&P - Cardiology (1) NSTEMI (non-ST elevated myocardial infarction): Assessment/Problem Details: Troponin rise was just under 1000 pg/mL and was not associated with chest pain. Ejection fraction is severely reduced Code(s): I21.4 - Non-ST elevation (NSTEMI) myocardial infarction (2) HFrEF (heart failure with reduced ejection fraction): Assessment/Problem Details: Patient is able to lay down flat with no evidence of volume overload clinically but his chest x-behzad presentation showed pulmonary edema. Code(s): I50.20 - Unspecified systolic (congestive) heart failure (3) Chronic kidney disease: Assessment/Problem Details: Nephrology is following the patient, ultrasound of the kidney was performed today is not yet read Qualifiers: Chronic kidney disease stage: stage 3 (moderate) Chronic kidney diseasestage 3 subtype: stage 3b (GFR 30-44) Qualified Code(s): N18.32 - Chronic kidney disease, stage 3b Code(s): N18.9 - Chronic kidney disease, unspecified (4) Paroxysmal atrial fibrillation with RVR: Assessment/Problem Details: This is a new onset since admission. He is on loading dose of amiodarone, heartrate is controlled relatively speaking and he is anticoagulated with Eliquis Code(s): I48.0 - Paroxysmal atrial fibrillation Plan Assessment 1. Progressive shortness of breath due to acute pulmonary edema 2. Non-ST elevation myocardial infarction 3. Renal insufficiency with creatinine 2.6 unclear whether it is acute on chronic 4. New onset atrial fibrillation with RVR 5. Cardiomyopathy with LVEF based on my review in the range of 25-30%, ischemiccomponent need to beruled out Plan 1. Currently lasix 40mg iv bid. He is meeting his diuresis goal of -1.5L daily. Continue with cautious diuresis with close observation of renal function. 2. Continue IV heparin and aspirin. Continue p.o. amiodarone. 3. Increase PO Cardizem dose and wean off IV drip. Switch beta-susie to metoprolol succinate. Goal in future will be to transition him to metoprolol forrate control and off Cardizem given his cardiomyopathy. 4. Plan for Lexiscan stress MPI on Monday. NPO after MN. Documented By: Bubba Jessica MD 03/24 05/14 1244 Signed By: 04/14/24 1248 [facility]02-22-2025 Progress note Author Tobi Monroy [facility] Note Date/Time April 13, 2024 2:23pm [facility] [address] [place] [address] Nephrology Progress Note Signed Patient: Corwin Muller MR#: [id number] : 1945 Acct:[id number] Age/Sex: 79 / M Adm Date: 5 Loc: Room: [address] [place] [address] Type: ADM IN Attending Dr: Jersey Bess MD Copies to: ~ Date of Service: 04/13/2024 Subjective Subjective Narrative: This is an 79 yo male with PMHx of chronic kidney disease stage IIIb, hyperlipidemia, atrial tachycardia, hypertension and arthritis that was at his doctor's appointment for injections to his knees when his vitals were checked. He was sent to the emergency room due to heart rate in the 140s. He denied any symptoms whatsoever at that time. He was evaluated in the [facility] with EKG showing SVT and inverted T waves. He received diltiazem bolus and drip. Chest x-ray with bilateral interstitial infiltrates. He was given digoxin, Lasix, morphine and developed respiratory distress with oxygen sat 87% on 5 L nasal cannula. He was then placed on BiPAP and Ruiz was placed as well. No leukocytosis noted, BUN 29, creatinine 2.62, elevated troponin at 910 and BNP 8857. Patient was admitted for NSTEMI, CHF, and new onset A-fib. Echo showed EF 35 to 40% with moderate global hypokinesis of LV. Cardiology was consulted and recommended delaying ischemic evaluation after renal function has improved due to risk of contrast-induced nephropathy. He was started on GDMT forCHF including carvedilol, Imdur, hydralazine and Farxiga. Farxiga was stopped due to the hypotension. Nephrology was consulted due to YOJANA, fluid overload. INTERIM HISTORY Patient was seen and examined bedside. He is feeling better than yesterday denies any chest pain palpation cough nausea vomiting diarrhea shortness of breath. He is still in A-fib with RVR. His dose of hydralazine and Imdur were adjusted by the cardiology. Exam Physical Exam Vital Signs: Temp Pulse Resp BP Pulse Ox O2 Del Method O2 Flow Rate 97.7 F 128 H 18 118/88 97 Nasal Cannula 6 04/13/24 09:00 04/13/24 09:00 04/13/24 09:00 04/13/24 09:00 04/13/24 09:00 04/13/24 09:00 04/13/24 09:00 FiO2 50 04/12/24 04:00 Narrative: CONSTITUTIONAL: Alert, oriented HEAD: Normocephalic, atraumatic EYES: EOMI, pupils equal and reactive, conjunctiva normal ENT: External auditory canals wnl RESPIRATORY: Lungs clear bilaterally, symmetric chest rise CARDIOVASCULAR: Irregular rhythm and tachycardic rate, no murmurs ABDOMEN: Soft, non-tender, non-distended, normal bowel sounds SKIN: Intact, no rash, no trauma EXTREM: Trace edema, NO cyanosis NEURO: Nno focal neurologic signs PSYCHIATRIC: Normal affect, good insight Objective Intake and Output I&O: Intake & Output 04/10/24 04/11/24 04/12/24 04/13/24 23:59 23:59 23:59 23:59 Intake Total 600 / 600 1225 / 1225 1380 / 1380 200 / 200 Output Total 1999 / 1999 3775 / 3775 1200 / 1200 1935 / 1935 Balance -1400 / -1400 -2550 / -2550 180 / 180 -1735 / -1735 Weight 103.2 kg 112.1 kg 112.4 kg Meds and Allergies Meds: Active Medications Acetaminophen (Acetaminophen 500 Mg Tablet) 1,000 mg PO Q6HR PRN PRN Reason: Pain Scale 1 - 3 or fever Stop: 04/10/25 04:04 Amiodarone HCl (Amiodarone 200 Mg Tablet) 400 mg PO TID [facility] Stop: 04/11/25 13:59 Last Admin: 04/13/24 09:51 Dose: 400 mg Apixaban (Apixaban 2.5 Mg Tablet) 2.5 mg PO BID [facility] Stop: 04/12/25 20:59 Last Admin: 04/13/24 09:43 Dose: 2.5 mg Aspirin (Aspirin 81 Mg Tablet.Dr) 81 mg PO DAILY [facility] Stop: 04/11/25 08:59 Last Admin: 04/13/24 09:45 Dose: 81 mg Diltiazem HCl (Diltiazem Cd.24hr 240 Mg Cap.Er.24h) 240 mg PO DAILY [facility] Stop: 04/13/25 12:44 Furosemide (Furosemide 40 Mg Tablet) 40 mg PO BID@0800,1600 [facility] Stop: 04/12/25 15:59 Last Admin: 04/13/24 09:44 Dose: 40 mg Hydralazine HCl (Hydralazine 25 Mg Tablet) 25 mg PO BID [facility] Stop: 04/12/25 20:59 Last Admin: 04/13/24 09:44 Dose: 25 mg Diltiazem HCl (Cardizem) 100 mg in 100 mls @ 10 mls/hr IV .Q10H [facility]; Protocol Stop: 04/11/25 10:14 Last Admin: 04/13/24 02:47 Dose: 10 mg/hr, 10 mls/hr Ceftriaxone Sodium (Rocephin) 1 gm in 50 mls @ 100 mls/hr IV Q24H [facility] Last Admin: 04/13/24 12:32 Dose: 100 mls/hr Isosorbide Mononitrate (Isosorbide Mononitrate 24hr Er 30 Mg Tab.Er.24h) 30 mg PO DAILY.6A [facility] Stop: 04/13/25 05:59 Last Admin: 04/13/24 05:43 Dose: 30 mg Metoprolol Succinate (Metoprolol Succinate 50 Mg Tab.Er.24h) 50 mg PO BID [facility] Stop: 04/13/25 20:59 Morphine Sulfate (Morphine Sulfate 2 Mg/Ml Vial) 2 mg IV-PUSH Q4H PRN PRN Reason: Pain Scale 8 - 10 Ondansetron HCl (Ondansetron 4 Mg/2 Ml Vial) 4 mg IV-PUSH Q6H PRN PRN Reason: Nausea And Vomiting Stop: 04/10/25 04:04 Potassium Chloride (Potassium Chloride Er 20 Meq Tab.Er.Prt) 20 meq PO DAILY [facility] Stop: 04/13/25 08:59 Last Admin: 04/13/24 09:43 Dose: 20 meq Sodium Chloride (Sodium Chloride 0.9 % 10 Ml Syringe) 0 ml IV-PUSH QSHIFT [facility] Stop: 04/10/25 05:59 Last Admin: 04/13/24 09:52 Dose: 10 ml Spironolactone (Spironolactone 12.5 Mg Tablet) 12.5 mg PO DAILY [facility] Stop: 04/12/25 19:59 Last Admin: 04/13/24 09:45 Dose: 12.5 mg Allergies No Known Allergies Allergy (Verified 04/09/24 14:28) Results - Nephrology Labs 04/13/24 05:33 04/13/24 05:33 Labs: 04/13/24 05:33 BUN 39 H Creatinine 2.41 H Albumin 3.5 Radiology Impressions Impressions - last 24 hours: Impressions Renal Ultrasound 04/12/24 08:51 IMPRESSION: No mass or hydronephrosis. Impression dictated by: Jones Pedro M.D.04/12/2024 9:34 PM Dictation Location: [place] [address] Any impression(s) listed above is documentation that was entered by the reading physician into a diagnostic report(s) for Corwin Muller. I have reviewed the report(s) and am incorporating any findings in the treatment plan of this patient where applicable. A&P - Nephrology Assessment/Plan (1) Acute kidney injury superimposed on CKD: Assessment/Problem Details: YOJANA on CKD due to cardiorenal syndrome in setting of A-fib with RVR and acute CHF exacerbation. He has no evidence of obstructive uropathy on renal ultrasound. (2) NSTEMI (non-ST elevated myocardial infarction): Assessment/Problem Details: Patient was admitted for WA and his echocardiogram showed EF 35 to 40%. He is currently on aspirin and carvedilol. Cardiology is following the patient and would like to do a invasive workup once renal function stabilized. (3) CKD (chronic kidney disease) stage 3, GFR 30-59 ml/min: Assessment/Problem Details: He has a longstanding CKD due to the hypertension baseline serum creatinine was 1.8 mg/dL. Patient was following with the PCP for CKD care. (4) Paroxysmal atrial fibrillation with RVR: Assessment/Problem Details: Cardiology following, on heparin, amiodarone, Coreg, diltiazem, aspirin. (5) Acute hypoxic respiratory failure: Assessment/Problem Details: Acute hypoxic respiratory failure due to CHF exacerbation and A-fib RVR. (6) Acute systolic CHF (congestive heart failure): Assessment/Problem Details: EF 35 to 40%. On goal-directed medical therapy per cardiology. Cardiology following, on hydralazine, isosorbide, Lasix. Holding off on SGLT2 inhibitor due to renal dysfunction. (7) Hypertension: Assessment/Problem Details: His blood pressure has been running relatively low in setting of A-fib with RVR. Plan * Continue Lasix to 40mg PO BID * Check magnesium and replete as necessary * Check renal function daily * Monitor intake and output * Check daily weights * Documented By: Tobi Monroy MD 04/13/241419 Signed By: <Electronically signed by Tobi Monroy MD> 04/13/241422 [facility] Work Phone: 1(391) 247-932002-22-2025 Progress note Author Bubba Jessica [facility] Note Date/Time April 13, 2024 1:26pm [facility] [address] [place] [address] Cardiology Progress Note Signed Patient: Corwin Muller MR#: [id number] : 1945 Acct:[id number] Age/Sex: 79 / M Adm Date: 5 Loc: Room: [address] [place] [address] Type: ADM IN Attending Dr: Jersey Bess MD Copies to: ~ Date of Service: 04/13/2024 Subjective Principal diagnosis: Congestive heart failure/atrial fibrillation Interval history: Mr. Muller is a 79 year old male was sent by his physician to the hospital because of observation of worsening respiratory status and tachycardia. He was evaluated in the emergency room at [place]. The patient described progressive shortness of breath over the last few days. On initial evaluation the patient was noted to be tachycardic with heart rate around 140. There was some concern about SVT and the patient was given a diltiazem but it appears that his EKG is more consistent with sinus tachycardia. Chest x-ray appears to be consistent with pulmonary edema. Patient experiencing respiratory distress which ultimately improved with IV diuresis and O2 supplementation. Troponin was significantly elevated when the patient was sent to [facility] for further care. The patient denies chest pain or lower extremity edema. He described orthopnea. He denies any previous history of coronary disease congestive heart failure valvular heart disease. On the presentation hewas noted to have significant renal insufficiency. Echocardiogram showed LV systolic dysfunction. Peak troponin close to 9000 creatinine was 2.6. The patient reported improvement of his clinical status and denies chest pain. He is hemodynamically stable. His heart rate has improved. His echocardiogram showed LV systolic dysfunction official interpretation was around 35-40% but I believe it is more consistent with around 25 to 30% Cardiology follow-up 04/11/2024: Patient is resting in bed with his daughter at the bedside. He appears to be more comfortable compared to when he came in. Hewent into atrial fibrillation with RVR this morning for which I initiated therapy with IV diltiazem and intravenous heparin. He is being diuresed with careful monitoring of renal function. The patient has no previous cardiac history whatsoever and all of this is new. Discussed the options of therapy with the patient and the need for further cardiac medications. The focus at thepresent time is on improving heart failure and hopefully restoring normal sinus rhythm. Cardiology follow-up 04/12/2024: The patient is able to lay down flat without difficulties and has no lower extremity edema no cough and no dyspnea at rest. Renal function has worsened creatinine of 2.6 mg/dL. Renal ultrasound was performed today. Nephrology is following the patient. His heart rate is under better control on Cardizem drip and on amiodarone. He is anticoagulated now with reduced dose Eliquis 2.5 mg twice daily. Will add spironolactone 12.5 mg daily and due to hypotension cut back on hydralazine and nitrates. Cardiology follow-up 04/13/2024: No complaints today. Tolerating medications well. Spoke at length with family who are in the room. Creatinine is marginally improved today from 2.6-2.4. Continues on Cardizem drip with A-fib anywhere between 80- 120 bpm. Exam Physical Exam Vital Signs: Temp Pulse Resp BP Pulse Ox O2 Del Method O2 Flow Rate 97.7 F 128 H 18 118/88 97 Nasal Cannula 6 04/13/24 09:00 04/13/24 09:00 04/13/24 09:00 04/13/24 09:00 04/13/24 09:00 04/13/24 09:00 04/13/24 09:00 FiO2 50 04/12/24 04:00 Const General: cooperative, comfortable, no acute distress and well developed Nutritional Appearance: overweight Orientation: alert, awake and oriented x3 HEENT Head: normal to inspection, normocephalic and atraumatic Ears: hearing grossly normal bilaterally Nose: external nose normal Face and sinus: normal facial exam Mouth: oral mucosae normal Eyes General: appearance normal, both eyes and all related structures Conjunctivae: conjunctivae normal Pupils: PERRL Neck Neck: normal visual inspection, trachea midline, supple and no lymphadenopathy noted Neck mass: No Thyroid: thyroid normal Carotids: normal carotid upstroke Chest Chest palpation & inspection: normal inspection of the chest Resp Effort & Inspection: normal respiratory effort Auscultation: clear to auscultation bilaterally, crackles, rales and rhonchi Cardio Jugular venous pressure: no JVD Palpation: normal PMI Rate: regular rate and tachycardic Rhythm: regular rhythm and abnormal rhythm irregularly irregular Heart Sounds: S1 normal, S2 normal and murmur systolic II/ and at the right sternal border GI Inspection: normal to inspection Palpation: soft and no hepatosplenomegaly Percussion: normal to percussion Auscultation: normal bowel sounds Skin General: no rashes or lesions noted and dry skin Neuro General: patient alert, patient awake, patient oriented x3, tone normal and moves all extremities Extrem General: full ROM, capillary refill normal and no clubbing, cyanosis or edema Psych Mental Status: mental status grossly normal Objective Labs 04/13/24 05:33 04/13/24 05:33 Labs: Laboratory Results - last 24 hr 04/12/24 04/13/24 15:14 05:33 Corrected WBC 8.7 Uncorrected WBC Count 8.7 RBC 4.73 Hgb 14.3 Hct 40.8 MCV 86.4 MCH 30.2 MCHC 35.0 RDW 14.2 Plt Count 245 MPV 7.9 Neut % (Auto) 63.3 Lymph % (Auto) 18.6 Falls % (Auto) 11.0 Eos % (Auto) 6.7 Baso % (Auto) 0.4 Nucleat RBC Rel Count 0.1 Neut # (Auto) 5.5 Lymph # (Auto) 1.6 Falls # (Auto) 1.0 H Eos # (Auto) 0.6 H Baso # (Auto) 0.0 Heparin Anti-Xa, Unfract 0.32 PHA Creatinine Clear 33.55 Sodium 138 Potassium 3.5 Chloride 104 Carbon Dioxide 23.6 Anion Gap 13.9 BUN 39 H Creatinine 2.41 H Est GFR (CKD-EPI) 26.478 Glucose 100 Calcium 8.8 Total Bilirubin 0.6 AST 25 ALT 18 Alkaline Phosphatase 44 Total Protein 6.4 Albumin 3.5 Globulin 2.9 Albumin/Globulin Ratio 1.2 A&P - Cardiology (1) NSTEMI (non-ST elevated myocardial infarction): Assessment/Problem Details: Troponin rise was just under 1000 pg/mL and was not associated with chest pain. Ejection fraction is severely reduced Code(s): I21.4 - Non-ST elevation (NSTEMI) myocardial infarction (2) HFrEF (heart failure with reduced ejection fraction): Assessment/Problem Details: Patient is able to lay down flat with no evidence of volume overload clinically but his chest x-ray on presentation showed pulmonary edema. Code(s): I50.20 - Unspecified systolic (congestive) heart failure (3) Chronic kidney disease: Assessment/Problem Details: Nephrology is following the patient, ultrasound of the kidney was performed today is not yet read Qualifiers: Chronic kidney disease stage: stage 3 (moderate) Chronic kidney diseasestage 3 subtype: stage 3b (GFR 30-44) Qualified Code(s): N18.32 - Chronic kidney disease, stage 3b Code(s): N18.9 - Chronic kidney disease, unspecified (4) Paroxysmal atrial fibrillation with RVR: Assessment/Problem Details: This is a new onset since admission. He is on loading dose of amiodarone, heartrate is controlled relatively speaking and he is anticoagulated with Eliquis Code(s): I48.0 - Paroxysmal atrial fibrillation Plan Assessment 1. Progressive shortness of breath due to acute pulmonary edema 2. Non-ST elevation myocardial infarction 3. Renal insufficiency with creatinine 2.6 unclear whether it is acute on chronic 4. New onset atrial fibrillation with RVR 5. Cardiomyopathy with LVEF based on my review in the range of 25-30%, ischemiccomponent need to be ruled out Plan 1. Currently lasix 40mg iv bid. He is meeting his diuresis goal of -1.5L daily. Continue with cautious diuresis with close observation of renal function. 2. Continue IV heparin and aspirin. Continue p.o. amiodarone. He received one dose of digoxin yesterday and will hold off on further digoxin. 3. Start p.o. Cardizem and wean off IV drip. Switch beta-susie to metoprolol succinate. Goal in future will be to transition him to metoprolol for rate control and off Cardizem given his cardiomyopathy. 4. Plan for Lexiscan stress MPI on Monday. Documented By: Bubba Jessica MD 03/24 04/16 1314 Signed By: <Electronically signed by Bubba Jessica MD> 04/13/24 1320 [facility] Work Phone: 1(147) 499-612202-22-2025 [place] [address] Nephrology Progress Note Signed Patient: Corwin Muller MR#: [id number] : 1945 Acct:[id number] Age/Sex: 79 / M Adm Date: 5 Loc: Room: [address] [place] [address] Type: ADM IN Attending Dr: Jersey Bess MD Copies to: ~ Date of Service: 04/13/2024 Subjective Subjective Narrative: This is an 79 yo male with PMHx of chronic kidney disease stage IIIb, hyperlipidemia, atrial tachycardia, hypertension and arthritis that was at his doctor's appointment for injections to his knees when his vitals were checked. He was sent to the emergency room due to heart rate in the 140s. He denied any symptoms whatsoever at that time. He was evaluated in the [facility] with EKG showingSVT and inverted T waves. He received diltiazem bolus and drip. Chest x-ray with bilateral interstitial infiltrates. He was given digoxin, Lasix, morphine and developed respiratory distress with oxygen sat 87% on 5 L nasal cannula. He was then placed on BiPAP and Ruiz was placed as well. No leukocytosis noted, BUN 29, creatinine 2.62, elevated troponin at 910 and BNP 8857. Patient was admitted for NSTEMI, CHF, and new onset A-fib. Echo showed EF 35 to 40% with moderate global hypokinesis of LV. Cardiology was consulted and recommended delaying ischemic evaluation after renal function has improved due to risk of contrast-induced nephropathy. He was started on GDMT forCHF including carvedilol, Imdur, hydralazine and Farxiga. Farxiga was stopped due to the hypotension. Nephrology was consulted due to YOJANA, fluid overload. INTERIM HISTORY Patient was seen and examined bedside. He is feeling better than yesterday denies any chest pain palpation cough nausea vomiting diarrhea shortness of breath. He is still in A-fib with RVR. His dose of hydralazine and Imdur were adjusted by the cardiology. Exam Physical Exam Vital Signs: Temp Pulse Resp BP Pulse Ox O2 Del Method O2 Flow Rate 97.7 F 128 H 18 118/88 97 Nasal Cannula 6 04/13/24 09:00 04/13/24 09:00 04/13/24 09:00 04/13/24 09:00 04/13/24 09:00 04/13/24 09:00 04/13/24 09:00 FiO2 50 04/12/24 04:00 Narrative: CONSTITUTIONAL: Alert, oriented HEAD: Normocephalic, atraumatic EYES: EOMI, pupils equal and reactive, conjunctiva normal ENT: External auditory canals wnl RESPIRATORY: Lungs clear bilaterally, symmetric chest rise CARDIOVASCULAR: Irregular rhythm and tachycardic rate, no murmurs ABDOMEN: Soft, non-tender, non-distended, normal bowel sounds SKIN: Intact, no rash, no trauma EXTREM: Trace edema, NO cyanosis NEURO: Nno focal neurologic signs PSYCHIATRIC: Normal affect, good insight Objective Intake and Output I&O: Intake & Output 04/10/24 04/11/24 04/12/24 04/13/24 23:59 23:59 23:59 23:59 Intake Total 600 / 600 1225 / 1225 1380 / 1380 200 / 200 Output Total 1999 / 1999 3775 / 3775 1200 / 1200 1935 / 1935 Balance -1400 / -1400 -2550 / -2550 180 / 180 -1735 / -1735 Weight 103.2 kg 112.1 kg 112.4 kg Meds and Allergies Meds: Active Medications Acetaminophen (Acetaminophen 500 Mg Tablet) 1,000 mg PO Q6HR PRN PRN Reason: Pain Scale 1 - 3 or fever Stop: 04/10/25 04:04 Amiodarone HCl (Amiodarone 200 Mg Tablet) 400 mg PO TID [facility] Stop: 04/11/25 13:59 Last Admin: 04/13/24 09:51 Dose: 400 mg Apixaban (Apixaban 2.5 Mg Tablet) 2.5 mg PO BID [facility] Stop: 04/12/25 20:59 Last Admin: 04/13/24 09:43 Dose: 2.5 mg Aspirin (Aspirin 81 Mg Tablet.Dr) 81 mg PO DAILY [facility] Stop: 04/11/25 08:59 Last Admin: 04/13/24 09:45 Dose: 81 mg Diltiazem HCl (Diltiazem Cd.24hr 240 Mg Cap.Er.24h) 240 mg PO DAILY [facility] Stop: 04/13/25 12:44 Furosemide (Furosemide 40 Mg Tablet) 40 mg PO BID@0800,1600 [facility] Stop: 04/12/25 15:59 Last Admin: 04/13/24 09:44 Dose: 40 mg Hydralazine HCl (Hydralazine 25 Mg Tablet) 25 mg PO BID [facility] Stop: 04/12/25 20:59 Last Admin: 04/13/24 09:44 Dose: 25 mg Diltiazem HCl (Cardizem) 100 mg in 100 mls @ 10 mls/hr IV .Q10H [facility]; Protocol Stop: 04/11/25 10:14 Last Admin: 04/13/24 02:47 Dose: 10 mg/hr, 10 mls/hr Ceftriaxone Sodium (Rocephin) 1 gm in 50 mls @ 100 mls/hr IV Q24H [facility] Last Admin: 04/13/24 12:32 Dose: 100 mls/hr Isosorbide Mononitrate (Isosorbide Mononitrate 24hr Er 30 Mg Tab.Er.24h) 30 mg PO DAILY.6A [facility] Stop: 04/13/25 05:59 Last Admin: 04/13/24 05:43 Dose: 30 mg Metoprolol Succinate (Metoprolol Succinate 50 Mg Tab.Er.24h) 50 mg PO BID [facility] Stop: 04/13/25 20:59 Morphine Sulfate (Morphine Sulfate 2 Mg/Ml Vial) 2 mg IV-PUSH Q4H PRN PRN Reason: Pain Scale 8 - 10 Ondansetron HCl (Ondansetron 4 Mg/2 Ml Vial) 4 mg IV-PUSH Q6H PRN PRN Reason: Nausea And Vomiting Stop: 04/10/25 04:04 Potassium Chloride (Potassium Chloride Er 20 Meq Tab.Er.Prt) 20 meq PO DAILY [facility] Stop: 04/13/25 08:59 Last Admin: 04/13/24 09:43 Dose: 20 meq Sodium Chloride (Sodium Chloride 0.9 % 10 Ml Syringe) 0 ml IV-PUSH QSHIFT [facility] Stop: 04/10/25 05:59 Last Admin: 04/13/24 09:52 Dose: 10 ml Spironolactone (Spironolactone 12.5 Mg Tablet) 12.5 mg PO DAILY [facility] Stop: 04/12/25 19:59 Last Admin: 04/13/24 09:45 Dose: 12.5 mg Allergies No Known Allergies Allergy (Verified 04/09/24 14:28) Results - Nephrology Labs 04/13/24 05:33 04/13/24 05:33 Labs: 04/13/24 05:33 BUN 39 H Creatinine 2.41 H Albumin 3.5 Radiology Impressions Impressions - last 24 hours: Impressions Renal Ultrasound 04/12/24 08:51 IMPRESSION: No mass or hydronephrosis. Impression dictated by: Jones Pedro M.D.04/12/2024 9:34 PM Dictation Location: [place] [address] Any impression(s) listed above is documentation that was entered by the reading physician into a diagnostic report(s) for Corwin Muller. I have reviewed the report(s) and am incorporating anyfindings in the treatment plan of this patient where applicable. A&P - Nephrology Assessment/Plan (1) Acute kidney injury superimposed on CKD: Assessment/Problem Details: YOJANA on CKD due to cardiorenal syndrome in setting of A-fib with RVR and acute CHF exacerbation. He has no evidence of obstructive uropathy on renal ultrasound. (2) NSTEMI (non-ST elevated myocardial infarction): Assessment/Problem Details: Patient was admitted for [place] and his echocardiogram showed EF 35 to 40%. He is currently on aspirin and carvedilol. Cardiology is following the patient and would like to do a invasive workup once renal function stabilized. (3) CKD (chronic kidney disease) stage 3, GFR 30-59 ml/min: Assessment/Problem Details: He has a longstanding CKD due to the hypertension baseline serum creatinine was 1.8 mg/dL. Patient was following with the PCP for CKD care. (4) Paroxysmal atrial fibrillation with RVR: Assessment/Problem Details: Cardiology following, on heparin, amiodarone, Coreg, diltiazem, aspirin. (5) Acute hypoxic respiratory failure: Assessment/Problem Details: Acute hypoxic respiratory failure due to CHF exacerbation and A-fib RVR. (6) Acute systolic CHF (congestive heart failure): Assessment/Problem Details: EF 35 to 40%. On goal-directed medical therapy per cardiology. Cardiology following, on hydralazine, isosorbide, Lasix. Holding off on SGLT2 inhibitor due to renal dysfunction. (7) Hypertension: Assessment/Problem Details: His blood pressure has been running relatively low in setting of A-fib with RVR. Plan * Continue Lasix to 40mg PO BID * Check magnesium and replete as necessary * Check renal function daily * Monitor intake and output * Check daily weights * Documented By: Tobi Monroy MD 04/13/241419 Signed By: 04/13/24 1423 [facility]02-22-2025 Progress note Author Jersey Bess [facility] Note Date/Time April 13, 2024 11:47am [facility] [address] [place] [address] Hospitalist Progress Note Signed Patient: Corwin Muller MR#: [id number] : 1945 Acct:[id number] Age/Sex: 79 / M Adm Date: 5 Loc: Room: 3U3380-7 Type: ADM IN Attending Dr: Jersey Bess MD Copies to: ~ Date of Service: 04/13/2024 Subjective Subjective Narrative: Patient was seen and evaluated at bedside. Oxygen requirements still at 6 L, he is still in Afib with RVR this am, Cardizem drip ongoing. Cr a bit improving. Nephrology was consulted. Cardiology on and following. Pt denies chest pain, dizziness, lightheadedness. He is constipated. Added laxatives. Exam Physical Exam Vital Signs: Temp Pulse Resp BP Pulse Ox O2 Del Method O2 Flow Rate 97.7 F 128 H 18 118/88 97 Nasal Cannula 6 04/13/24 09:00 04/13/24 09:00 04/13/24 09:00 04/13/24 09:00 04/13/24 09:00 04/13/24 09:00 04/13/24 09:00 FiO2 50 04/12/24 04:00 Narrative: Const General: cooperative HEENT Normal oropharyngeal mucosa without any ulcers or exudates Eyes: Conjunctiva normal Pulmonary Auscultation: slightly diminished breath sounds , no crackles, no wheezes Cardiovascular Rate:tachycardic Rhythm: irregular rhythm Heart Sounds: S1 normal, S2 normal and no murmurs GI Inspection: non-distended Palpation: soft, not firm and nontender. No rigidity or rebound. Deferred Neuro General: alert, awake and oriented x3. No obvious new focal deficit Musculoskeletal: normal range of motion Extrem General: no cyanosis, no pedal edema Psych Appearance: appropriate affect. Grossly normal Objective Lab Results 04/13/24 05:33 04/13/24 05:33 Microbiology Results Microbiology 04/12/24 10:01 Urine - Ruiz Urine Culture - Preliminary Meds Allergies and Active Meds Allergies No Known Allergies Allergy (Verified 04/09/24 14:28) Active Meds: Active Medications Generic Name Dose Route Start Last Admin Trade Name Freq PRN Reason Stop Dose Admin Acetaminophen 1,000 mg 04/10/24 04:05 Acetaminophen 500 Mg Tablet PO 04/10/25 04:04 Q6HR PRN Pain Scale 1 - 3 or fever Amiodarone HCl 400 mg 04/11/24 14:00 04/13/24 09:51 Amiodarone 200 Mg Tablet PO 04/11/25 13:59 400 mg TID BLESSING Administration Apixaban 2.5 mg 04/12/24 21:00 04/13/24 09:43 Apixaban 2.5 Mg Tablet PO 04/12/25 20:59 2.5 mg BID BLESSING Administration Aspirin 81 mg 04/11/24 09:00 04/13/24 09:45 Aspirin 81 Mg Tablet. PO 04/11/25 08:59 81 mg DAILY BLESSING Administration Carvedilol 6.25 mg 04/11/24 08:00 04/13/24 09:42 Carvedilol 6.25 Mg Tablet PO 04/11/25 07:59 6.25 mg BID.WITH.MEALS BLESSING Administration Furosemide 40 mg 04/12/24 16:00 04/13/24 09:44 Furosemide 40 Mg Tablet PO 04/12/25 15:59 40 mg BID@0800,1600 BLESSING Administration Hydralazine HCl 25 mg 04/12/24 21:00 04/13/24 09:44 Hydralazine 25 Mg Tablet PO 04/12/25 20:59 25 mg BID BLESSING Administration Diltiazem HCl 100 mg in 100 mls @ 10 mls/hr 04/11/24 10:15 04/13/24 02:47 Cardizem IV 04/11/25 10:14 10 mg/hr .Q10H BLESSING 10 mls/hr Administration Protocol 10 MG/HR Ceftriaxone Sodium 1 gm in 50 mls @ 100 mls/hr 04/12/24 11:00 04/12/24 12:28 Rocephin IV Infused Q24H BLESSING Infusion Isosorbide Mononitrate 30 mg 04/13/24 06:00 04/13/24 05:43 Isosorbide Mononitrate 24hr Er 30 Mg Tab.Er.24h PO 04/13/25 05:59 30 mg DAILY.6A BLESSING Administration Morphine Sulfate 2 mg 04/10/24 04:05 Morphine Sulfate 2 Mg/Ml Vial IV-PUSH Q4H PRN Pain Scale 8 - 10 Ondansetron HCl 4 mg 04/10/24 04:05 Ondansetron 4 Mg/2 Ml Vial IV-PUSH 04/10/25 04:04 Q6H PRN Nausea And Vomiting Potassium Chloride 20 meq 04/13/24 09:00 04/13/24 09:43 Potassium Chloride Er 20 Meq Tab.Er.Prt PO 04/13/25 08:59 20 meq DAILY BLESSING Administration Sodium Chloride 0 ml 04/10/24 06:00 04/13/24 09:52 Sodium Chloride 0.9 % 10 Ml Syringe IV-PUSH 04/10/25 05:59 10 ml QSHIFT BLESSING Administration Spironolactone 12.5 mg 04/12/24 20:00 04/13/24 09:45 Spironolactone 12.5 Mg Tablet PO 04/12/25 19:59 12.5 mg DAILY BLESSING Administration A&P - Hospitalist Assessment/Plan (1) Acute hypoxic respiratory failure: (2) Acute pulmonary edema: (3) Acute systolic CHF (congestive heart failure): (4) HFrEF (heart failure with reduced ejection fraction): (5) NSTEMI (non-ST elevated myocardial infarction): (6) Cardiomyopathy: Plan Acute systolic heart failure exacerbation Acute pulmonary edema 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 Pt was initiated on GDMT, BB, hydralazine and Imdur due to renal failure, Lasix. -SGLT2 not started due to renal failure. Can be re-visted later down the road/outpatient. -IV diuresis -Ischemic workup as per cardiology -Oxygen supplementation as needed -Monitor electrolytes while on diuretics -CPAP at night and as needed Afib with RVR New diagnosis of Afib -Pt noted Afib with RVR -Continue on Cardizem drip. -Started on Eliquis 2.5 mg BID -Continue on Amiodarone per cardio -Cardiology following -Cardiac monitoring YOJANA on CKD -Baseline seems around Cr. 1.8. -Cr today 2.4 uptrending from prior. Nephro was consulted -Continue lasix to 40 mg PO BID -PT has Ruiz catheter for accurate output. -UA obtained, seems positive for UTI. Started on IV Rocephin. -renal US > no mass or hydronephrosis. -Nephrology following, input appreciated. Diet: healthy heart DVT ppx: Eliquis Code status: Full Status: inpatient Discussed with patient at bedside. All questions answered. In agreement with theabove plan Jersey Quigley MD Internal Medicine Hospitalist Attending Physician Documented By: Jersey Bess MD 04/13/24 11 44 Signed By: <Electronically signed by Jersey Bess MD> 04/13/[address] [place] [address] Work Phone: 1(675) 182-816602-22-2025 [place] [id number] Cardiology Progress Note Signed Patient: Corwin Muller MR#: [id number] : 1945 Acct:[id number] Age/Sex: 79 / M Adm Date: 5 Loc: 4 Room: [id number] Type: ADM IN Attending Dr: Jersey Bess MD Copies to: ~ Date of Service: 04/13/2024 Subjective Principal diagnosis: Congestive heart failure/atrial fibrillation Interval history: Mr. Muller is a 79 year old male was sent by his physician to the hospital because of observationof worsening respiratory status and tachycardia. He was evaluated in the emergency room at [place]. The patient described progressive shortness of breath over the last few days. On initial evaluation the patient was noted to be tachycardic with heart rate around 140. There was some concern about SVT and the patient was given a diltiazem but it appears that his EKG is more consistent with sinus tachycardia. Chest x-ray appears to be consistent with pulmonary edema. Patient experiencing respiratory distress which ultimately improved with IV diuresis and O2 supplementation. Troponin was significantly elevated when the patient was sent to [facility] for further care. Thepatient denies chest pain or lower extremity edema. He described orthopnea. He denies any previous history of coronary disease congestive heart failure valvular heart disease. On the presentation hewas noted to have significant renal insufficiency. Echocardiogram showed LV systolic dysfunction. Peak troponin close to 9000 creatinine was 2.6. The patient reported improvement of his clinical statusand denies chest pain. He is hemodynamically stable. His heart rate has improved. His echocardiogram showed LV systolic dysfunction official interpretation was around 35-40% but I believe it is more consistent with around 25 to 30% Cardiology follow-up 04/11/2024: Patient is resting in bed with his daughter at the bedside. He appears to be more comfortable compared to when he came in. Hewent into atrial fibrillation with RVR this morning for which I initiated therapy with IV diltiazem and intravenous heparin. He is being diuresed with careful monitoring of renal function. The patient has no previous cardiac history whatsoever and all of this is new. Discussed the options of therapy with the patient and the need for furthercardiac medications. The focus at thepresent time is on improving heart failure and hopefully restoring normal sinus rhythm. Cardiology follow-up 04/12/2024: The patient is able to lay down flat without difficulties and has no lower extremity edema no cough and no dyspnea at rest. Renal function has worsened creatinine of 2.6 mg/dL. Renal ultrasound was performed today. Nephrology is following the patient. His heart rate is under better control on Cardizem drip and on amiodarone. He is anticoagulated now with reduced dose Eliquis 2.5 mg twice daily. Will add spironolactone 12.5 mg daily and due to hypotension cut backon hydralazine and nitrates. Cardiology follow-up 04/13/2024: No complaints today. Tolerating medications well. Spoke at length with family who are in the room. Creatinine is marginally improved today from 2.6-2.4. Continues on Cardizem drip with A-fib anywhere between 80-120 bpm. Exam Physical Exam Vital Signs: Temp Pulse Resp BP Pulse Ox O2 Del Method O2 Flow Rate 97.7 F 128 H 18 118/88 97 Nasal Cannula 6 04/13/24 09:00 04/13/24 09:00 04/13/24 09:00 04/13/24 09:00 04/13/24 09:00 04/13/24 09:00 04/13/24 09:00 FiO2 50 04/12/24 04:00 Const General: cooperative, comfortable, no acute distress and well developed Nutritional Appearance: overweight Orientation: alert, awake and oriented x3 HEENT Head: normal to inspection, normocephalic and atraumatic Ears: hearing grossly normal bilaterally Nose: external nose normal Face and sinus: normal facial exam Mouth: oral mucosae normal Eyes General: appearance normal, both eyes and all related structures Conjunctivae: conjunctivae normal Pupils: PERRL Neck Neck: normal visual inspection, trachea midline, supple and no lymphadenopathy noted Neck mass: No Thyroid: thyroid normal Carotids: normal carotid upstroke Chest Chest palpation & inspection: normal inspection of the chest Resp Effort & Inspection: normal respiratory effort Auscultation: clear to auscultation bilaterally, crackles, rales and rhonchi Cardio Jugular venous pressure: no JVD Palpation: normal PMI Rate: regular rate and tachycardic Rhythm: regular rhythm and abnormal rhythm irregularly irregular Heart Sounds: S1 normal, S2 normal and murmur systolic II/ and at the right sternal border GI Inspection: normal to inspection Palpation: soft and no hepatosplenomegaly Percussion: normal to percussion Auscultation: normal bowel sounds Skin General: no rashes or lesions noted and dry skin Neuro General: patient alert, patient awake, patient oriented x3, tone normal and moves all extremities Extrem General: full ROM, capillary refill normal and no clubbing, cyanosis or edema Psych Mental Status: mental status grossly normal Objective Labs 04/13/24 05:33 04/13/24 05:33 Labs: Laboratory Results - last 24 hr 04/12/24 04/13/24 15:14 05:33 Corrected WBC 8.7 Uncorrected WBC Count 8.7 RBC 4.73 Hgb 14.3 Hct 40.8 MCV 86.4 MCH 30.2 MCHC 35.0 RDW 14.2 Plt Count 245 MPV 7.9 Neut % (Auto) 63.3 Lymph % (Auto) 18.6 Falls % (Auto) 11.0 Eos % (Auto) 6.7 Baso % (Auto) 0.4 Nucleat RBC Rel Count 0.1 Neut # (Auto) 5.5 Lymph # (Auto) 1.6 Falls # (Auto) 1.0 H Eos # (Auto) 0.6 H Baso # (Auto) 0.0 Heparin Anti-Xa, Unfract 0.32 PHA Creatinine Clear 33.55 Sodium 138 Potassium 3.5 Chloride 104 Carbon Dioxide 23.6 Anion Gap 13.9 BUN 39 H Creatinine 2.41 H Est GFR (CKD-EPI) 26.478 Glucose 100 Calcium 8.8 Total Bilirubin 0.6 AST 25 ALT 18 Alkaline Phosphatase 44 Total Protein 6.4 Albumin 3.5 Globulin 2.9 Albumin/Globulin Ratio 1.2 A&P - Cardiology (1) NSTEMI (non-ST elevated myocardial infarction): Assessment/Problem Details: Troponin rise was just under 1000 pg/mL and was not associated with chest pain. Ejection fraction is severely reduced Code(s): I21.4 - Non-ST elevation (NSTEMI) myocardial infarction (2) HFrEF (heart failure with reduced ejection fraction): Assessment/Problem Details: Patient is able to lay down flat with no evidence of volume overload clinically but his chest x-behzad presentation showed pulmonary edema. Code(s): I50.20 - Unspecified systolic (congestive) heart failure (3) Chronic kidney disease: Assessment/Problem Details: Nephrology is following the patient, ultrasound of the kidney was performed today is not yet read Qualifiers: Chronic kidney disease stage: stage 3 (moderate) Chronic kidney diseasestage 3 subtype: stage 3b (GFR 30-44) Qualified Code(s): N18.32 - Chronic kidney disease, stage 3b Code(s): N18.9 - Chronic kidney disease, unspecified (4) Paroxysmal atrial fibrillation with RVR: Assessment/Problem Details: This is a new onset since admission. He is on loading dose of amiodarone, heartrate is controlled relatively speaking and he is anticoagulated with Eliquis Code(s): I48.0 - Paroxysmal atrial fibrillation Plan Assessment 1. Progressive shortness of breath due to acute pulmonary edema 2. Non-ST elevation myocardial infarction 3. Renal insufficiency with creatinine 2.6 unclear whether it is acute on chronic 4. New onset atrial fibrillation with RVR 5. Cardiomyopathy with LVEF based on my review in the range of 25-30%, ischemiccomponent need to beruled out Plan 1. Currently lasix 40mg iv bid. He is meeting his diuresis goal of -1.5L daily. Continue with cautious diuresis with close observation of renal function. 2. Continue IV heparin and aspirin. Continue p.o. amiodarone. He received one dose of digoxin yesterday and will hold off on further digoxin. 3. Start p.o. Cardizem and wean off IV drip. Switch beta-susie to metoprolol succinate. Goal in future will be to transition him to metoprolol for rate control and off Cardizem given his cardiomyopathy. 4. Plan for Lexiscan stress MPI on Monday. Documented By: Bubba Jessica MD 03/24 04/16 1319 Signed By: 04/13/24 1326 [facility]02-22-2025 [place] [address] Hospitalist Progress Note Signed Patient: Corwin Muller MR#: [id number] : 1945 Acct:[id number] Age/Sex: 79 / M Adm Date: 5 Loc: Room: [address] [place] [address] Type: ADM IN Attending Dr: Jersey Bess MD Copies to: ~ Date of Service: 04/13/2024 Subjective Subjective Narrative: Patient was seen and evaluated at bedside. Oxygen requirements still at 6 L, he is still in Afib with RVR this am, Cardizem drip ongoing. Cr a bit improving. Nephrology was consulted. Cardiology on and following. Pt denies chest pain, dizziness, lightheadedness. He is constipated. Added laxatives. Exam Physical Exam Vital Signs: Temp Pulse Resp BP Pulse Ox O2 Del Method O2 Flow Rate 97.7 F 128 H 18 118/88 97 Nasal Cannula 6 04/13/24 09:00 04/13/24 09:00 04/13/24 09:00 04/13/24 09:00 04/13/24 09:00 04/13/24 09:00 04/13/24 09:00 FiO2 50 04/12/24 04:00 Narrative: Const General: cooperative HEENT Normal oropharyngeal mucosa without any ulcers or exudates Eyes: Conjunctiva normal Pulmonary Auscultation: slightly diminished breath sounds , no crackles, no wheezes Cardiovascular Rate:tachycardic Rhythm: irregular rhythm Heart Sounds: S1 normal, S2 normal and no murmurs GI Inspection: non-distended Palpation: soft, not firm and nontender. No rigidity or rebound. Deferred Neuro General: alert, awake and oriented x3. No obvious new focal deficit Musculoskeletal: normal range of motion Extrem General: no cyanosis, no pedal edema Psych Appearance: appropriate affect. Grossly normal Objective Lab Results 04/13/24 05:33 04/13/24 05:33 Microbiology Results Microbiology 04/12/24 10:01 Urine - Ruiz Urine Culture - Preliminary Meds Allergies and Active Meds Allergies No Known Allergies Allergy (Verified 04/09/24 14:28) Active Meds: Active Medications Generic Name Dose Route Start Last Admin Trade Name Freq PRN Reason Stop Dose Admin Acetaminophen 1,000 mg 04/10/24 04:05 Acetaminophen 500 Mg Tablet PO 04/10/25 04:04 Q6HR PRN Pain Scale 1 - 3 or fever Amiodarone HCl 400 mg 04/11/24 14:00 04/13/24 09:51 Amiodarone 200 Mg Tablet PO 04/11/25 13:59 400 mg TID BLESSING Administration Apixaban 2.5 mg 04/12/24 21:00 04/13/24 09:43 Apixaban 2.5 Mg Tablet PO 04/12/25 20:59 2.5 mg BID BLESSING Administration Aspirin 81 mg 04/11/24 09:00 04/13/24 09:45 Aspirin 81 Mg Tablet.Dr PO 04/11/25 08:59 81 mg DAILY BLESSING Administration Carvedilol 6.25 mg 04/11/24 08:00 04/13/24 09:42 Carvedilol 6.25 Mg Tablet PO 04/11/25 07:59 6.25 mg BID.WITH.MEALS BLESSING Administration Furosemide 40 mg 04/12/24 16:00 04/13/24 09:44 Furosemide 40 Mg Tablet PO 04/12/25 15:59 40 mg BID@0800,1600 BLESSING Administration Hydralazine HCl 25 mg 04/12/24 21:00 04/13/24 09:44 Hydralazine 25 Mg Tablet PO 04/12/25 20:59 25 mg BID BLESSING Administration Diltiazem HCl 100 mg in 100 mls @ 10 mls/hr 04/11/24 10:15 04/13/24 02:47 Cardizem IV 04/11/25 10:14 10 mg/hr .Q10H BLESSING 10 mls/hr Administration Protocol 10 MG/HR Ceftriaxone Sodium 1 gm in 50 mls @ 100 mls/hr 04/12/24 11:00 04/12/24 12:28 Rocephin IV Infused Q24H BLESSING Infusion Isosorbide Mononitrate 30 mg 04/13/24 06:00 04/13/24 05:43 Isosorbide Mononitrate 24hr Er 30 Mg Tab.Er.24h PO 04/13/25 05:59 30 mg DAILY.6A BLESSING Administration Morphine Sulfate 2 mg 04/10/24 04:05 Morphine Sulfate 2 Mg/Ml Vial IV-PUSH Q4H PRN Pain Scale 8 - 10 Ondansetron HCl 4 mg 04/10/24 04:05 Ondansetron 4 Mg/2 Ml Vial IV-PUSH 04/10/25 04:04 Q6H PRN Nausea And Vomiting Potassium Chloride 20 meq 04/13/24 09:00 04/13/24 09:43 Potassium Chloride Er 20 Meq Tab.Er.Prt PO 04/13/25 08:59 20 meq DAILY BLESSING Administration Sodium Chloride 0 ml 04/10/24 06:00 04/13/24 09:52 Sodium Chloride 0.9 % 10 Ml Syringe IV-PUSH 04/10/25 05:59 10 ml QSHIFT BLESSING Administration Spironolactone 12.5 mg 04/12/24 20:00 04/13/24 09:45 Spironolactone 12.5 Mg Tablet PO 04/12/25 19:59 12.5 mg DAILY BLESSING Administration A&P - Hospitalist Assessment/Plan (1) Acute hypoxic respiratory failure: (2) Acute pulmonary edema: (3) Acute systolic CHF (congestive heart failure): (4) HFrEF (heart failure with reduced ejection fraction): (5) NSTEMI (non-ST elevated myocardial infarction): (6) Cardiomyopathy: Plan Acute systolic heart failure exacerbation Acute pulmonary edema 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 Pt was initiated on GDMT, BB, hydralazine and Imdur due to renal failure, Lasix. -SGLT2 not started due to renal failure. Can be re-visted later down the road/outpatient. -IV diuresis -Ischemic workup as per cardiology -Oxygen supplementation as needed -Monitor electrolytes while on diuretics -CPAP at night and as needed Afib with RVR New diagnosis of Afib -Pt noted Afib with RVR -Continue on Cardizem drip. -Started on Eliquis 2.5 mg BID -Continue on Amiodarone per cardio -Cardiology following -Cardiac monitoring YOJANA on CKD -Baseline seems around Cr. 1.8. -Cr today 2.4 uptrending from prior. Nephro was consulted -Continue lasix to 40 mg PO BID -PT has Ruiz catheter for accurate output. -UA obtained, seems positive for UTI. Started on IV Rocephin. -renal US > no mass or hydronephrosis. -Nephrology following, input appreciated. Diet: healthy heart DVT ppx: Eliquis Code status: Full Status: inpatient Discussed with patient at bedside. All questions answered. In agreement with theabove plan Jersey Quigley MD Internal Medicine Hospitalist Attending Physician Documented By: Jersey Bess MD 04/13/24 11 44 Signed By: 04/13/24 1147 [facility]02-21-2025 Radiology Diagnostic study note [facility] Main [place] [address] [place] [address] Ultrasound Report Signed Patient: Corwin Muller MR#: [id number] : 1945 Acct:[id number] Age/Sex: 79 / M ADM Date: 5 Loc: Room: [address] [place] [address] Type: ADM IN Attending Dr: Jersey Bess MD Ordering Provider: Tobi Monroy MD Date of Service: 04/12/24 US/US renal BI: YOJANA Copies to: MD Jersey Patrick MD~ US renal BI 04/12/2024 8:52 AM SIGNS AND SYMPTOMS: YOJANA COMPARISON: None. FINDINGS: Right kidney measures 11.78 cm x 4.67 cm x 5.43 cm . No hydronephrosis or mass. Left kidney measures 12.3 cm x 5.48 cm x 5.62 cm . No hydronephrosis or mass. The urinary bladder is morphologically normal. No free fluid is seen in the pelvis. The bladder is decompressed and contains a Ruiz catheter. US/US renal BI IMPRESSION: No mass or hydronephrosis. Impression dictated by: Jones Pedro M.D.04/12/2024 9:34 PM Dictation Location: [place] [address] Tech: Lacey Archer Transcribed By: [facility] 04/12/242133 Dictated By: Jones Pedro II, MD 04/12/242132 Signed By: 04/12/242133 [facility] Work Phone: 1(121) 300-202802-21-2025 Progress note Author Keron Gutierres [facility] Note Date/Time April 12, 2024 6:17pm [facility] [address] [place] [address] Cardiology Progress Note Signed Patient: Corwin Muller MR#: [id number] : 1945 Acct:[id number] Age/Sex: 79 / M Adm Date: 5 Loc: 4 Room: 0E0598-3 Type: ADM IN Attending Dr: Jersey Bess MD Copies to: ~ Date of Service: 04/12/2024 Subjective Principal diagnosis: Congestive heart failure/atrial fibrillation Interval history: Mr. Muller is a 79 year old male was sent by his physician to the hospital because of observation of worsening respiratory status and tachycardia. He was evaluated in the emergency room at [place]. The patient described progressive shortness of breath over the last few days. On initial evaluation the patient was noted to be tachycardic with heart rate around 140. There was some concern about SVT and the patient was given a diltiazem but it appears that his EKG is more consistent with sinus tachycardia. Chest x-ray appears to be consistent with pulmonary edema. Patient experiencing respiratory distress which ultimately improved with IV diuresis and O2 supplementation. Troponin was significantly elevated when the patient was sent to [facility] for further care. The patient denies chest pain or lower extremity edema. He described orthopnea. He denies any previous history of coronary disease congestive heart failure valvular heart disease. On the presentation hewas noted to have significant renal insufficiency. Echocardiogram showed LV systolic dysfunction. Peak troponin close to 9000 creatinine was 2.6. The patient reported improvement of his clinical status and denies chest pain. He is hemodynamically stable. His heart rate has improved. His echocardiogram showed LV systolic dysfunction official interpretation was around 35-40% but I believe it is more consistent with around 25 to 30% Cardiology follow-up 04/11/2024: Patient is resting in bed with his daughter at the bedside. He appears to be more comfortable compared to when he came in. Hewent into atrial fibrillation with RVR this morning for which I initiated therapy with IV diltiazem and intravenous heparin. He is being diuresed with careful monitoring of renal function. The patient has no previous cardiac history whatsoever and all of this is new. Discussed the options of therapy with the patient and the need for further cardiac medications. The focus at thepresent time is on improving heart failure and hopefully restoring normal sinus rhythm. Cardiology follow-up 04/12/2024: The patient is able to lay down flat without difficulties and has no lower extremity edema no cough and no dyspnea at rest. Renal function has worsened creatinine of 2.6 mg/dL. Renal ultrasound was performed today. Nephrology is following the patient. His heart rate is under better control on Cardizem drip and on amiodarone. He is anticoagulated now with reduced dose Eliquis 2.5 mg twice daily. Will add spironolactone 12.5 mg daily and due to hypotension cut back on hydralazine and nitrates. Exam Physical Exam Vital Signs: Temp Pulse Resp BP Pulse Ox O2 Del Method O2 Flow Rate 97.4 F L 81 20 94/65 L 91 L Nasal Cannula 6 04/12/24 15:18 04/12/24 17:16 04/12/24 15:18 04/12/24 17:16 04/12/24 15:18 04/12/24 16:00 04/12/24 16:00 FiO2 50 04/12/24 04:00 Const General: cooperative, comfortable and no acute distress Nutritional Appearance: overweight Orientation: alert, awake and oriented x3 HEENT Head: normal to inspection, normocephalic and atraumatic Ears: hearing grossly normal bilaterally Nose: external nose normal Face and sinus: normal facial exam Eyes Conjunctivae: conjunctivae normal Pupils: PERRL Neck Neck: normal visual inspection, trachea midline and supple Neck mass: No Thyroid: thyroid normal Carotids: normal carotid upstroke Resp Effort & Inspection: normal respiratory effort Auscultation: clear to auscultation bilaterally Cardio Jugular venous pressure: no JVD Palpation: normal PMI Rate: tachycardic Rhythm: abnormal rhythm irregularly irregular Heart Sounds: S1 normal and S2 normal GI Inspection: normal to inspection Palpation: soft and no hepatosplenomegaly Auscultation: normal bowel sounds Extrem General: no clubbing, cyanosis or edema Objective Labs 04/12/24 05:06 04/12/24 05:06 Labs: Laboratory Results - last 24 hr 04/12/24 04/12/24 04/12/24 00:21 05:06 07:47 Corrected WBC 11.0 H Uncorrected WBC Count 11.0 H RBC 4.50 Hgb 13.8 Hct 39.4 MCV 87.6 MCH 30.6 MCHC 34.9 RDW 14.2 Plt Count 265 MPV 8.0 Neut % (Auto) 60.4 Lymph % (Auto) 23.6 Falls % (Auto) 11.0 Eos % (Auto) 4.7 Baso % (Auto) 0.3 Nucleat RBC Rel Count 0.1 Neut # (Auto) 6.6 Lymph # (Auto) 2.6 Falls # (Auto) 1.2 H Eos # (Auto) 0.5 H Baso # (Auto) 0.0 Heparin Anti-Xa, Unfract 0.11 L 0.23 L PHA Creatinine Clear 27.61 Sodium 138 Potassium 3.7 Chloride 103 Carbon Dioxide 24.3 Anion Gap 14.4 BUN 40 H Creatinine 2.62 H Est GFR (CKD-EPI) 23.951 Glucose 92 Calcium 8.4 L Total Bilirubin 0.8 AST 18 ALT 13 Alkaline Phosphatase 42 Total Protein 5.3 L Albumin 3.2 L Globulin 2.1 Albumin/Globulin Ratio 1.5 Urine Color Urine Appearance Urine pH Ur Specific [place] Urine Protein Urine Glucose (UA) Urine Ketones Urine Occult Blood Urine Nitrite Urine Bilirubin Urine Urobilinogen Ur Leukocyte Esterase Urine RBC Urine WBC Urine WBC Clumps Ur Squamous Epith Cells Urine Bacteria Hyaline Casts Urine Mucus Urine Yeast (Budding) Ur Random Creatinine U Random Total Protein Protein/Creatinin Ratio 04/12/24 04/12/24 10:01 15:14 Corrected WBC Uncorrected WBC Count RBC Hgb Hct MCV MCH MCHC RDW Plt Count MPV Neut % (Auto) Lymph % (Auto) Falls % (Auto) Eos % (Auto) Baso % (Auto) Nucleat RBC Rel Count Neut # (Auto) Lymph # (Auto) Falls # (Auto) Eos # (Auto) Baso # (Auto) Heparin Anti-Xa, Unfract 0.32 PHA Creatinine Clear Sodium Potassium Chloride Carbon Dioxide Anion Gap BUN Creatinine Est GFR (CKD-EPI) Glucose Calcium Total Bilirubin AST ALT Alkaline Phosphatase Total Protein Albumin Globulin Albumin/Globulin Ratio Urine Color Light-orange A Urine Appearance Turbid A Urine pH 5.5 Ur Specific [place] 1.011 Urine Protein 50 H Urine Glucose (UA) Normal Urine Ketones Trace H Urine Occult Blood 3+ H Urine Nitrite Negative Urine Bilirubin Negative Urine Urobilinogen Normal Ur Leukocyte Esterase 4+ H Urine RBC 50-100 H Urine WBC Innumerable H Urine WBC Clumps Many H Ur Squamous Epith Cells 3-4 H Urine Bacteria 4+ H Hyaline Casts 20-49 H Urine Mucus 3+ A Urine Yeast (Budding) 2+ H Ur Random Creatinine 102.00 U Random Total Protein 44 H Protein/Creatinin Ratio 431 H A&P - Cardiology (1) NSTEMI (non-ST elevated myocardial infarction): Assessment/Problem Details: Troponin rise was just under 1000 pg/mL and was not associated with chest pain. Ejection fraction is severely reduced Plan: Antiplatelet therapy, beta-blockers, statin and later on noninvasive cardiac evaluation with myocardial perfusion study. Code(s): I21.4 - Non-ST elevation (NSTEMI) myocardial infarction (2) HFrEF (heart failure with reduced ejection fraction): Assessment/Problem Details: Patient is able to lay down flat with no evidence of volume overload clinically but his chest x-ray on presentation showed pulmonary edema. Plan: Continue second-year heart failure therapy due to advanced kidney disease. Code(s): I50.20 - Unspecified systolic (congestive) heart failure (3) Chronic kidney disease: Assessment/Problem Details: Nephrology is following the patient, ultrasound of the kidney was performed today is not yet read Qualifiers: Chronic kidney disease stage: stage 3 (moderate) Chronic kidney diseasestage 3 subtype: stage 3b (GFR 30-44) Qualified Code(s): N18.32 - Chronic kidney disease, stage 3b Plan: Nephrology will manage the patient Code(s): N18.9 - Chronic kidney disease, unspecified (4) Paroxysmal atrial fibrillation with RVR: Assessment/Problem Details: This is a new onset since admission. He is on loading dose of amiodarone, heartrate is controlled relatively speaking and he is anticoagulated with Eliquis Plan: Continue present therapy, potential cardioversion next week if necessary Code(s): I48.0 - Paroxysmal atrial fibrillation Plan Assessment 1. Progressive shortness of breath due to acute pulmonary edema 2. Non-ST elevation myocardial infarction 3. Renal insufficiency with creatinine 2.6 unclear whether it is acute on chronic 4. New onset atrial fibrillation with RVR 5. Cardiomyopathy with LVEF based on my review in the range of 25-30%, ischemiccomponent need to be ruled out Plan 1. Continue with cautious diuresis with close observation of renal function 2. low-dose beta-susie, IV heparin and continue aspirin 3. Start amiodarone loading dose 400 mg 3 times daily and utilize IV Cardizem drip and IV heparin for atrial fibrillation of new onset. 4. When more stable evaluation for recurrent ischemia noninvasively will be recommended Discussed at length with the patient and his daughter at the bedside Documented By: Keron Gutierres MD, FACC 5 [id number] Signed By: <Electronically signed by MD JUAN Cabrales Wilder Bhavik> 04/12/241816 [facility] Work Phone: 1(226) 809-306802-21-[address] [address] Cardiology Progress Note Signed Patient: Corwin Muller MR#: [id number] : 1945 Acct:[id number] Age/Sex: 79 / M Adm Date: 5 Loc: Room: 4F1763-5 Type: ADM IN Attending Dr: Jersey Bess MD Copies to: ~ Date of Service: 04/12/2024 Subjective Principal diagnosis: Congestive heart failure/atrial fibrillation Interval history: Mr. Muller is a 79 year old male was sent by his physician to the hospital because of observationof worsening respiratory status and tachycardia. He was evaluated in the emergency room at [place]. The patient described progressive shortness of breath over the last few days. On initial evaluation the patient was noted to be tachycardic with heart rate around 140. There was some concern about SVT and the patient was given a diltiazem but it appears that his EKG is more consistent with sinus tachycardia. Chest x-ray appears to be consistent with pulmonary edema. Patient experiencing respiratory distress which ultimately improved with IV diuresis and O2 supplementation. Troponin was significantly elevated when the patient was sent to [facility] for further care. Thepatient denies chest pain or lower extremity edema. He described orthopnea. He denies any previous history of coronary disease congestive heart failure valvular heart disease. On the presentation hewas noted to have significant renal insufficiency. Echocardiogram showed LV systolic dysfunction. Peak troponin close to 9000 creatinine was 2.6. The patient reported improvement of his clinical statusand denies chest pain. He is hemodynamically stable. His heart rate has improved. His echocardiogram showed LV systolic dysfunction official interpretation was around 35-40% but I believe it is more consistent with around 25 to 30% Cardiology follow-up 04/11/2024: Patient is resting in bed with his daughter at the bedside. He appears to be more comfortable compared to when he came in. Hewent into atrial fibrillation with RVR this morning for which I initiated therapy with IV diltiazem and intravenous heparin. He is being diuresed with careful monitoring of renal function. The patient has no previous cardiac history whatsoever and all of this is new. Discussed the options of therapy with the patient and the need for furthercardiac medications. The focus at thepresent time is on improving heart failure and hopefully restoring normal sinus rhythm. Cardiology follow-up 04/12/2024: The patient is able to lay down flat without difficulties and has no lower extremity edema no cough and no dyspnea at rest. Renal function has worsened creatinine of 2.6 mg/dL. Renal ultrasound was performed today. Nephrology is following the patient. His heart rate is under better control on Cardizem drip and on amiodarone. He is anticoagulated now with reduced dose Eliquis 2.5 mg twice daily. Will add spironolactone 12.5 mg daily and due to hypotension cut backon hydralazine and nitrates. Exam Physical Exam Vital Signs: Temp Pulse Resp BP Pulse Ox O2 Del Method O2 Flow Rate 97.4 F L 81 20 94/65 L 91 L Nasal Cannula 6 04/12/24 15:18 04/12/24 17:16 04/12/24 15:18 04/12/24 17:16 04/12/24 15:18 04/12/24 16:00 04/12/24 16:00 FiO2 50 04/12/24 04:00 Const General: cooperative, comfortable and no acute distress Nutritional Appearance: overweight Orientation: alert, awake and oriented x3 HEENT Head: normal to inspection, normocephalic and atraumatic Ears: hearing grossly normal bilaterally Nose: external nose normal Face and sinus: normal facial exam Eyes Conjunctivae: conjunctivae normal Pupils: PERRL Neck Neck: normal visual inspection, trachea midline and supple Neck mass: No Thyroid: thyroid normal Carotids: normal carotid upstroke Resp Effort & Inspection: normal respiratory effort Auscultation: clear to auscultation bilaterally Cardio Jugular venous pressure: no JVD Palpation: normal PMI Rate: tachycardic Rhythm: abnormal rhythm irregularly irregular Heart Sounds: S1 normal and S2 normal GI Inspection: normal to inspection Palpation: soft and no hepatosplenomegaly Auscultation: normal bowel sounds Extrem General: no clubbing, cyanosis or edema Objective Labs 04/12/24 05:06 04/12/24 05:06 Labs: Laboratory Results - last 24 hr 04/12/24 04/12/24 04/12/24 00:21 05:06 07:47 Corrected WBC 11.0 H Uncorrected WBC Count 11.0 H RBC 4.50 Hgb 13.8 Hct 39.4 MCV 87.6 MCH 30.6 MCHC 34.9 RDW 14.2 Plt Count 265 MPV 8.0 Neut % (Auto) 60.4 Lymph % (Auto) 23.6 Falls % (Auto) 11.0 Eos % (Auto) 4.7 Baso % (Auto) 0.3 Nucleat RBC Rel Count 0.1 Neut # (Auto) 6.6 Lymph # (Auto) 2.6 Falls # (Auto) 1.2 H Eos # (Auto) 0.5 H Baso # (Auto) 0.0 Heparin Anti-Xa, Unfract 0.11 L 0.23 L PHA Creatinine Clear 27.61 Sodium 138 Potassium 3.7 Chloride 103 Carbon Dioxide 24.3 Anion Gap 14.4 BUN 40 H Creatinine 2.62 H Est GFR (CKD-EPI) 23.951 Glucose 92 Calcium 8.4 L Total Bilirubin 0.8 AST 18 ALT 13 Alkaline Phosphatase 42 Total Protein 5.3 L Albumin 3.2 L Globulin 2.1 Albumin/Globulin Ratio 1.5 Urine Color Urine Appearance Urine pH Ur Specific [place] Urine Protein Urine Glucose (UA) Urine Ketones Urine Occult Blood Urine Nitrite Urine Bilirubin Urine Urobilinogen Ur Leukocyte Esterase Urine RBC Urine WBC Urine WBC Clumps Ur Squamous Epith Cells Urine Bacteria Hyaline Casts Urine Mucus Urine Yeast (Budding) Ur Random Creatinine U Random Total Protein Protein/Creatinin Ratio 04/12/24 04/12/24 10:01 15:14 Corrected WBC Uncorrected WBC Count RBC Hgb Hct MCV MCH MCHC RDW Plt Count MPV Neut % (Auto) Lymph % (Auto) Falls % (Auto) Eos % (Auto) Baso % (Auto) Nucleat RBC Rel Count Neut # (Auto) Lymph # (Auto) Falls # (Auto) Eos # (Auto) Baso # (Auto) Heparin Anti-Xa, Unfract 0.32 PHA Creatinine Clear Sodium Potassium Chloride Carbon Dioxide Anion Gap BUN Creatinine Est GFR (CKD-EPI) Glucose Calcium Total Bilirubin AST ALT Alkaline Phosphatase Total Protein Albumin Globulin Albumin/Globulin Ratio Urine Color Light-orange A Urine Appearance Turbid A Urine pH 5.5 Ur Specific [place] 1.011 Urine Protein 50 H Urine Glucose (UA) Normal Urine Ketones Trace H Urine Occult Blood 3+ H Urine Nitrite Negative Urine Bilirubin Negative Urine Urobilinogen Normal Ur Leukocyte Esterase 4+ H Urine RBC 50-100 H Urine WBC Innumerable H Urine WBC Clumps Many H Ur Squamous Epith Cells 3-4 H Urine Bacteria 4+ H Hyaline Casts 20-49 H Urine Mucus 3+ A Urine Yeast (Budding) 2+ H Ur Random Creatinine 102.00 U Random Total Protein 44 H Protein/Creatinin Ratio 431 H A&P - Cardiology (1) NSTEMI (non-ST elevated myocardial infarction): Assessment/Problem Details: Troponin rise was just under 1000 pg/mL and was not associated with chest pain. Ejection fraction is severely reduced Plan: Antiplatelet therapy, beta-blockers, statin and later on noninvasive cardiac evaluation with myocardial perfusion study. Code(s): I21.4 - Non-ST elevation (NSTEMI) myocardial infarction (2) HFrEF (heart failure with reduced ejection fraction): Assessment/Problem Details: Patient is able to lay down flat with no evidence of volume overload clinically but his chest x-behzad presentation showed pulmonary edema. Plan: Continue second-year heart failure therapy due to advanced kidney disease. Code(s): I50.20 - Unspecified systolic (congestive) heart failure (3) Chronic kidney disease: Assessment/Problem Details: Nephrology is following the patient, ultrasound of the kidney was performed today is not yet read Qualifiers: Chronic kidney disease stage: stage 3 (moderate) Chronic kidney diseasestage 3 subtype: stage 3b (GFR 30-44) Qualified Code(s): N18.32 - Chronic kidney disease, stage 3b Plan: Nephrology will manage the patient Code(s): N18.9 - Chronic kidney disease, unspecified (4) Paroxysmal atrial fibrillation with RVR: Assessment/Problem Details: This is a new onset since admission. He is on loading dose of amiodarone, heartrate is controlled relatively speaking and he is anticoagulated with Eliquis Plan: Continue present therapy, potential cardioversion next week if necessary Code(s): I48.0 - Paroxysmal atrial fibrillation Plan Assessment 1. Progressive shortness of breath due to acute pulmonary edema 2. Non-ST elevation myocardial infarction 3. Renal insufficiency with creatinine 2.6 unclear whether it is acute on chronic 4. New onset atrial fibrillation with RVR 5. Cardiomyopathy with LVEF based on my review in the range of 25-30%, ischemiccomponent need to beruled out Plan 1. Continue with cautious diuresis with close observation of renal function 2. low-dose beta-susie, IV heparin and continue aspirin 3. Start amiodarone loading dose 400 mg 3 times daily and utilize IV Cardizem drip and IV heparin for atrial fibrillation of new onset. 4. When more stable evaluation for recurrent ischemia noninvasively will be recommended Discussed at length with the patient and his daughter at the bedside Documented By: Keron Gutierres MD, FACC [id number] Signed By: 04/12/241816 [facility]02-21-2025 Progress note Author Jersey Bess [facility] Note Date/Time April 12, 2024 3:42pm [facility] [address] [place] [address] Hospitalist Progress Note Signed Patient: Corwin Muller MR#: [id number] : 1945 Acct:[id number] Age/Sex: 79 / M Adm Date: 5 Loc: Room: [address] [place] [address] Type: ADM IN Attending Dr: Jersey Bess MD Copies to: ~ Date of Service: 04/12/2024 Subjective Subjective Narrative: Patient was seen and evaluated at bedside. Oxygen requirements down to 6 L, however he is in Afib with RVR this am, heparin drip, Cardizem drip ongoing. Patient is out of bed to chair, Cr a bit worsening. Nephrology was consulted. Cardiology on and following. Pt denies chest pain, dizziness, lightheadedness. Exam Physical Exam Vital Signs: Temp Pulse Resp BP Pulse Ox O2 Del Method O2 Flow Rate 97.4 F L 115 H 20 103/65 91 L Nasal Cannula 6 04/12/24 15:18 04/12/24 15:19 04/12/24 15:18 04/12/24 15:18 04/12/24 15:18 04/12/24 15:18 04/12/24 15:18 FiO2 50 04/12/24 04:00 Narrative: Const General: cooperative HEENT Normal oropharyngeal mucosa without any ulcers or exudates Eyes: Conjunctiva normal Pulmonary Auscultation: slightly diminished breath sounds , mild b/l crackles on bases, nowheezes Cardiovascular Rate:tachycardic Rhythm: irregular rhythm Heart Sounds: S1 normal, S2 normal and no murmurs GI Inspection: non-distended Palpation: soft, not firm and nontender. No rigidity or rebound. Deferred Neuro General: alert, awake and oriented x3. No obvious new focal deficit Musculoskeletal: normal range of motion Extrem General: no cyanosis, trace pedal edema Psych Appearance: appropriate affect. Grossly normal Objective Lab Results 04/12/24 05:06 04/12/24 05:06 Meds Allergies and Active Meds Allergies No Known Allergies Allergy (Verified 04/09/24 14:28) Active Meds: Active Medications Generic Name Dose Route Start Last Admin Trade Name Freq PRN Reason Stop Dose Admin Acetaminophen 1,000 mg 04/10/24 04:05 Acetaminophen 500 Mg Tablet PO 04/10/25 04:04 Q6HR PRN Pain Scale 1 - 3 or fever Amiodarone HCl 400 mg 04/11/24 14:00 04/12/24 14:26 Amiodarone 200 Mg Tablet PO 04/11/25 13:59 400 mg TID BLESSING Administration Aspirin 81 mg 04/11/24 09:00 04/12/24 08:28 Aspirin 81 Mg Tablet.Dr PO 04/11/25 08:59 81 mg DAILY BLESSING Administration Carvedilol 6.25 mg 04/11/24 08:00 04/12/24 08:28 Carvedilol 6.25 Mg Tablet PO 04/11/25 07:59 6.25 mg BID.WITH.MEALS BLESSING Administration Furosemide 40 mg 04/12/24 16:00 Furosemide 40 Mg Tablet PO 04/12/25 15:59 BID@0800,1600 [facility] Heparin Sodium (Porcine) 2,000 unit 04/11/24 10:14 Heparin *Protocol Bolus* 5,000 Unit/Ml Vial IV-PUSH 04/11/25 10:13 PROTOCOL PRN Anti-Xa < 0.1 or aPTT < 40 Hydralazine HCl 50 mg 04/11/24 21:00 04/11/24 21:45 Hydralazine 50 Mg Tablet PO 04/11/25 20:59 Not Given BID [facility] Diltiazem HCl 100 mg in 100 mls @ 10 mls/hr 04/11/24 10:15 04/12/24 12:05 Cardizem IV 04/11/25 10:14 Not Given .Q10H BLESSING Protocol 10 MG/HR Heparin Sodium/Sodium Chloride 25,000 unit in 250 mls @ 9.99 mls/hr 04/11/24 10:15 04/12/24 12:05 Heparin IV 04/11/25 10:14 Not Given .Q24H BLESSING Protocol 9.68 UNIT/KG/HR Ceftriaxone Sodium 1 gm in 50 mls @ 100 mls/hr 04/12/24 11:00 04/12/24 11:58 Rocephin IV 100 mls/hr Q24H BLESSING Administration Isosorbide Mononitrate 60 mg 04/11/24 12:00 04/12/24 06:10 Isosorbide Mononitrate 24hr Er 60 Mg Tab.Er.24h PO 04/11/25 11:59 60 mg DAILY.6A BLESSING Administration Miscellaneous Information 1 each 04/11/24 10:14 Consult To Pharmacy MISCELLANE 04/11/25 10:13 .PHACONSULT PRN ZZ.Pharmacy Consult Protocol Morphine Sulfate 2 mg 04/10/24 04:05 Morphine Sulfate 2 Mg/Ml Vial IV-PUSH Q4H PRN Pain Scale 8 - 10 Ondansetron HCl 4 mg 04/10/24 04:05 Ondansetron 4 Mg/2 Ml Vial IV-PUSH 04/10/25 04:04 Q6H PRN Nausea And Vomiting Potassium Chloride 20 meq 04/13/24 09:00 Potassium Chloride Er 20 Meq Tab.Er.Prt PO 04/13/25 08:59 DAILY BLESSING Sodium Chloride 0 ml 04/10/24 06:00 04/12/24 15:19 Sodium Chloride 0.9 % 10 Ml Syringe IV-PUSH 04/10/25 05:59 10 ml QSHIFT BLESSING Administration A&P - Hospitalist Assessment/Plan (1) Acute hypoxic respiratory failure: (2) Acute pulmonary edema: (3) Acute systolic CHF (congestive heart failure): (4) HFrEF (heart failure with reduced ejection fraction): (5) NSTEMI (non-ST elevated myocardial infarction): (6) Cardiomyopathy: Plan Acute systolic heart failure exacerbation Acute pulmonary edema 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 Pt was initiated on GDMT, BB, hydralazine and Imdur due to renal failure, Lasix. -SGLT2 not started due to renal failure. Can be re-visted later down the road/outpatient. -IV diuresis -Ischemic workup as per cardiology -Oxygen supplementation as needed -Monitor electrolytes while on diuretics -CPAP at night and as needed Afib with RVR New diagnosis of Afib -Pt noted Afib with RVR -Continue on Cardizem drip. -Continue on Heparin drip per cardio -Continue on Amiodarone per cardio -Cardiology following -Cardiac monitoring YOJANA on CKD -Baseline seems around Cr. 1.8. -Cr today 2.6 uptrending from prior. nephro was consulted -Changed lasix to 40 mg PO BID -PT has Ruiz catheter for accurate output. -UA obtained, seems positive for UTI. Started on IV Rocephin. -renal US ordered. Diet: healthy heart DVT ppx:heparin drip Code status: Full Status: inpatient Discussed with patient at bedside. All questions answered. In agreement with theabove plan Jersey Quigley MD Internal Medicine Hospitalist Attending Physician Documented By: Jersey Bess MD 04/12/24 15 37 Signed By: <Electronically signed by Jersey Bess MD> 04/12/24 [facility] Work Phone: 1(740) 849-123802-21-20[place] [address] Hospitalist Progress Note Signed Patient: Corwin Muller MR#: [id number] : 1945 Acct:[id number] Age/Sex: 79 / M Adm Date: 5 Loc: Room: 1Q5586-2 Type: ADM IN Attending Dr: Jersey Bess MD Copies to: ~ Date of Service: 04/12/2024 Subjective Subjective Narrative: Patient was seen and evaluated at bedside. Oxygen requirements down to 6 L, however he is in Afib with RVR this am, heparin drip, Cardizem drip ongoing. Patient is out of bed to chair, Cr a bit worsening. Nephrology was consulted. Cardiology on and following. Pt denies chest pain, dizziness, lightheadedness. Exam Physical Exam Vital Signs: Temp Pulse Resp BP Pulse Ox O2 Del Method O2 Flow Rate 97.4 F L 115 H 20 103/65 91 L Nasal Cannula 6 04/12/24 15:18 04/12/24 15:19 04/12/24 15:18 04/12/24 15:18 04/12/24 15:18 04/12/24 15:18 04/12/24 15:18 FiO2 50 04/12/24 04:00 Narrative: Const General: cooperative HEENT Normal oropharyngeal mucosa without any ulcers or exudates Eyes: Conjunctiva normal Pulmonary Auscultation: slightly diminished breath sounds , mild b/l crackles on bases, nowheezes Cardiovascular Rate:tachycardic Rhythm: irregular rhythm Heart Sounds: S1 normal, S2 normal and no murmurs GI Inspection: non-distended Palpation: soft, not firm and nontender. No rigidity or rebound. Deferred Neuro General: alert, awake and oriented x3. No obvious new focal deficit Musculoskeletal: normal range of motion Extrem General: no cyanosis, trace pedal edema Psych Appearance: appropriate affect. Grossly normal Objective Lab Results 04/12/24 05:06 04/12/24 05:06 Meds Allergies and Active Meds Allergies No Known Allergies Allergy (Verified 04/09/24 14:28) Active Meds: Active Medications Generic Name Dose Route Start Last Admin Trade Name Freq PRN Reason Stop Dose Admin Acetaminophen 1,000 mg 04/10/24 04:05 Acetaminophen 500 Mg Tablet PO 04/10/25 04:04 Q6HR PRN Pain Scale 1 - 3 or fever Amiodarone HCl 400 mg 04/11/24 14:00 04/12/24 14:26 Amiodarone 200 Mg Tablet PO 04/11/25 13:59 400 mg TID BLESSING Administration Aspirin 81 mg 04/11/24 09:00 04/12/24 08:28 Aspirin 81 Mg Tablet.Dr PO 04/11/25 08:59 81 mg DAILY BLESSING Administration Carvedilol 6.25 mg 04/11/24 08:00 04/12/24 08:28 Carvedilol 6.25 Mg Tablet PO 04/11/25 07:59 6.25 mg BID.WITH.MEALS BLESSING Administration Furosemide 40 mg 04/12/24 16:00 Furosemide 40 Mg Tablet PO 04/12/25 15:59 BID@0800,1600 [facility] Heparin Sodium (Porcine) 2,000 unit 04/11/24 10:14 Heparin *Protocol Bolus* 5,000 Unit/Ml Vial IV-PUSH 04/11/25 10:13 PROTOCOL PRN Anti-Xa < 0.1 or aPTT < 40 Hydralazine HCl 50 mg 04/11/24 21:00 04/11/24 21:45 Hydralazine 50 Mg Tablet PO 04/11/25 20:59 Not Given BID BLESSING Diltiazem HCl 100 mg in 100 mls @ 10 mls/hr 04/11/24 10:15 04/12/24 12:05 Cardizem IV 04/11/25 10:14 Not Given .Q10H BLESSING Protocol 10 MG/HR Heparin Sodium/Sodium Chloride 25,000 unit in 250 mls @ 9.99 mls/hr 04/11/24 10:15 04/12/24 12:05 Heparin IV 04/11/25 10:14 Not Given .Q24H BLESSING Protocol 9.68 UNIT/KG/HR Ceftriaxone Sodium 1 gm in 50 mls @ 100 mls/hr 04/12/24 11:00 04/12/24 11:58 Rocephin IV 100 mls/hr Q24H BLESSING Administration Isosorbide Mononitrate 60 mg 04/11/24 12:00 04/12/24 06:10 Isosorbide Mononitrate 24hr Er 60 Mg Tab.Er.24h PO 04/11/25 11:59 60 mg DAILY.6A BLESSING Administration Miscellaneous Information 1 each 04/11/24 10:14 Consult To Pharmacy MISCELLANE 04/11/25 10:13 .PHACONSULT PRN ZZ.Pharmacy Consult Protocol Morphine Sulfate 2 mg 04/10/24 04:05 Morphine Sulfate 2 Mg/Ml Vial IV-PUSH Q4H PRN Pain Scale 8 - 10 Ondansetron HCl 4 mg 04/10/24 04:05 Ondansetron 4 Mg/2 Ml Vial IV-PUSH 04/10/25 04:04 Q6H PRN Nausea And Vomiting Potassium Chloride 20 meq 04/13/24 09:00 Potassium Chloride Er 20 Meq Tab.Er.Prt PO 04/13/25 08:59 DAILY BLESSING Sodium Chloride 0 ml 04/10/24 06:00 04/12/24 15:19 Sodium Chloride 0.9 % 10 Ml Syringe IV-PUSH 04/10/25 05:59 10 ml QSHIFT BLESSING Administration A&P - Hospitalist Assessment/Plan (1) Acute hypoxic respiratory failure: (2) Acute pulmonary edema: (3) Acute systolic CHF (congestive heart failure): (4) HFrEF (heart failure with reduced ejection fraction): (5) NSTEMI (non-ST elevated myocardial infarction): (6) Cardiomyopathy: Plan Acute systolic heart failure exacerbation Acute pulmonary edema 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 Pt was initiated on GDMT, BB, hydralazine and Imdur due to renal failure, Lasix. -SGLT2 not started due to renal failure. Can be re-visted later down the road/outpatient. -IV diuresis -Ischemic workup as per cardiology -Oxygen supplementation as needed -Monitor electrolytes while on diuretics -CPAP at night and as needed Afib with RVR New diagnosis of Afib -Pt noted Afib with RVR -Continue on Cardizem drip. -Continue on Heparin drip per cardio -Continue on Amiodarone per cardio -Cardiology following -Cardiac monitoring YOJANA on CKD -Baseline seems around Cr. 1.8. -Cr today 2.6 uptrending from prior. nephro was consulted -Changed lasix to 40 mg PO BID -PT has Ruiz catheter for accurate output. -UA obtained, seems positive for UTI. Started on IV Rocephin. -renal US ordered. Diet: healthy heart DVT ppx:heparin drip Code status: Full Status: inpatient Discussed with patient at bedside. All questions answered. In agreement with theabove plan Jersey Quigley MD Internal Medicine Hospitalist Attending Physician Documented By: Jersey Bess MD 04/12/24 15 37 Signed By: 04/12/24 1542 [facility]02-21-2025 Consult note Author Tobi Monroy [facility] Note Date/Time April 12, 2024 10:34am [facility] [address] [place] [address] Nephrology Consult Note Signed Patient: Corwin Muller MR#: [id number] : 1945 Acct:[id number] Age/Sex: 79 / M Adm Date: 5 Loc: Room: [address] [place] [address] Type: ADM IN Attending Dr: Jersey Bess MD Copies to: MD Ranjan Patrick DO Kaitlyn Rizzo, DO, RES Jersey Bess MD~ Providers Consult Date: 04/12/24 Requesting Provider: Jersey Bess MD Primary Care Provider: Ranjan Lomas DO HPI Reason for Consult: YOJANA, fluid overload History of Present Illness: This is an 79 yo male with PMHx of chronic kidney disease stage IIIb, hyperlipidemia, atrial tachycardia, hypertension and arthritis that was at his doctor's appointment for injections to his knees when his vitals were checked. He was sent to the emergency room due to heart rate in the 140s. He denied any symptoms whatsoever at that time. He was evaluated in the [facility] with EKG showing SVT and inverted T waves. He received diltiazem bolus and drip. Chest x-ray with bilateral interstitial infiltrates. He was given digoxin, Lasix, morphine and developed respiratory distress with oxygen sat 87% on 5 L nasal cannula. He was then placed on BiPAP and Ruiz was placed as well. No leukocytosis noted, BUN 29, creatinine 2.62, elevated troponins at 910 and BNP 8857. Patient was admitted for NSTEMI, CHF, and new onset A-fib. Echo showed EF 35 to 40% with moderate global hypokinesis of LV. Cardiology was consulted and recommended delaying ischemic evaluation after renal function has improved due to risk of contrast-induced nephropathy. He was started on GDMT forCHF including carvedilol, Imdur, hydralazine and Farxiga. Farxiga was stopped due to the hypotension. Nephrology was consulted due to YOJANA, fluid overload. Upon examination, patient is resting in chair. He states he feels fine today. He denies chest pain, shortness of breath, abdominal pain or any other symptoms aside from some lightheadedness. He states he noticed this today. He is not aware of any history of kidney disease. He states his urine output has been good. He denies any recent issues with leg swelling. Review of Systems Review of Systems All other systems reviewed & are negative unless noted below or in HPI Review of systems: Cardiovascular: denies any chest pain, palpitation Pulmonary: denies any cough, hemoptysis Gastrointestinal: denies any nausea, vomiting, diarrhea Neurological: denies any headache, numbness, weakness Endocrine: denies any polyuria, polydipsia Dermatological: denies any itching or rash [facility] Medical History (Updated 04/12/24 @ 10:33 by oTbi Monroy MD) Atrial tachycardia Lumbar spondylosis Hyperlipidemia type II Primary osteoarthritis of right knee Primary osteoarthritis of left knee Knee pain Hypertension Elevated cholesterol Surgical History H/O hernia repair Family History Father 67 yrs Aortic aneurysm and dissection Mother 90 yrs [facility]: Diagnosed with Stroke Stroke Brother Diabetes Had multiple health problems Brother Parkinson disease Social History Smoking Status: Never smoker Substance Use Type: Alcohol (rarely) Meds Medications & Allergies Allergies No Known Allergies Allergy (Verified 04/09/24 14:28) Home Medications atorvastatin 10 mg tablet 10 mg PO DAILY 06/27/23 [History Confirmed 04/09/24] multivitamin 1 tab PO DAILY 06/27/23 [History Confirmed 04/09/24] amlodipine 10 mg tablet See Rx Instructions .Route .COMPLEX #90 tabs 12/15/23 [Rx Confirmed 04/10/24] Active Medications: Active Medications Acetaminophen (Acetaminophen 500 Mg Tablet) 1,000 mg PO Q6HR PRN PRN Reason: Pain Scale 1 - 3 or fever Stop: 04/10/25 04:04 Amiodarone HCl (Amiodarone 200 Mg Tablet) 400 mg PO TID [facility] Stop: 04/11/25 13:59 Last Admin: 04/12/24 08:28 Dose: 400 mg Aspirin (Aspirin 81 Mg Tablet.) 81 mg PO DAILY BLESSING Stop: 04/11/25 08:59 Last Admin: 04/12/24 08:28 Dose: 81 mg Carvedilol (Carvedilol 6.25 Mg Tablet) 6.25 mg PO BID.WITH.MEALS [facility] Stop: 04/11/25 07:59 Last Admin: 04/12/24 08:28 Dose: 6.25 mg Furosemide (Furosemide 40 Mg/4 Ml Vial) 40 mg IV-PUSH BID@0800,1600 [facility] Stop: 04/11/25 15:59 Last Admin: 04/12/24 08:28 Dose: 40 mg Heparin Sodium (Porcine) (Heparin *Protocol Bolus* 5,000 Unit/Ml Vial) 2,000 unit IV-PUSH PROTOCOL PRN PRN Reason: Anti-Xa < 0.1 or aPTT < 40 Stop: 04/11/25 10:13 Hydralazine HCl (Hydralazine 50 Mg Tablet) 50 mg PO BID [facility] Stop: 04/11/25 20:59 Last Admin: 04/11/24 21:45 Dose: Not Given Diltiazem HCl (Cardizem) 100 mg in 100 mls @ 10 mls/hr IV .Q10H [facility]; Protocol Stop: 04/11/25 10:14 Last Admin: 04/12/24 06:07 Dose: 10 mg/hr, 10 mls/hr Heparin Sodium/Sodium Chloride (Heparin) 25,000 unit in 250 mls @ 9.99 mls/hr IV .Q24H [facility]; Protocol Stop: 04/11/25 10:14 Last Titration: 04/12/24 01:48 Dose: 14.68 unit/kg/hr, 15.15 mls/hr Isosorbide Mononitrate (Isosorbide Mononitrate 24hr Er 60 Mg Tab.Er.24h) 60 mg PO DAILY.6A [facility] Stop: 04/11/25 11:59 Last Admin: 04/12/24 06:10 Dose: 60 mg Miscellaneous Information (Consult To Pharmacy) 1 each MISCELLANE .PHACONSULT PRN; Protocol PRN Reason: ZTanmay.Pharmacy Consult Stop: 04/11/25 10:13 Morphine Sulfate (Morphine Sulfate 2 Mg/Ml Vial) 2 mg IV-PUSH Q4H PRN PRN Reason: Pain Scale 8 - 10 Ondansetron HCl (Ondansetron 4 Mg/2 Ml Vial) 4 mg IV-PUSH Q6H PRN PRN Reason: Nausea And Vomiting Stop: 04/10/25 04:04 Sodium Chloride (Sodium Chloride 0.9 % 10 Ml Syringe) 0 ml IV-PUSH QSHIFT BLESSING Stop: 04/10/25 05:59 Last Admin: 04/12/24 06:11 Dose: 10 ml Exam Physical Exam Vital Signs: Temp Pulse Resp BP Pulse Ox O2 Del Method O2 Flow Rate 98.9 F 129 H 20 108/68 92 L Nasal Cannula 6 04/11/24 23:18 04/12/24 08:27 04/12/24 08:27 04/12/24 08:27 04/12/24 08:27 04/12/24 08:27 04/12/24 08:27 FiO2 50 04/12/24 04:00 Narrative: CONSTITUTIONAL: Alert, oriented HEAD: Normocephalic, atraumatic EYES: EOMI, pupils equal and reactive, conjunctiva normal ENT: External auditory canals wnl RESPIRATORY: Lungs clear bilaterally, symmetric chest rise CARDIOVASCULAR: Irregular rhythm and tachycardic rate, no murmurs ABDOMEN: Soft, non-tender, non-distended, normal bowel sounds SKIN: Intact, no rash, no trauma EXTREM: Trace edema, NO cyanosis NEURO: Nno focal neurologic signs PSYCHIATRIC: Normal affect, good insight Results - Nephrology Labs 04/12/24 05:06 04/12/24 05:06 Labs: 04/12/24 05:06 BUN 40 H Creatinine 2.62 H Albumin 3.2 L Radiology Impressions Impressions - last 24 hours: Any impression(s) listed above is documentation that was entered by the reading physician into a diagnostic report(s) for Corwin Muller. I have reviewed the report(s) and am incorporating any findings in the treatment plan of this patient where applicable. A&P - Nephrology Assessment/Plan (1) Acute kidney injury superimposed on CKD: Assessment/Problem Details: YOJANA on CKD stage IIIb due to cardiorenal syndrome in setting of A-fib with RVR and acute CHF exacerbation. (2) NSTEMI (non-ST elevated myocardial infarction): Assessment/Problem Details: Patient was admitted for WA and his echocardiogram showed EF 35 to 40%. He is currently on aspirin and carvedilol. Cardiology is following the patient and would like to do a invasive workup once renal function stabilized. (3) CKD (chronic kidney disease) stage 3, GFR 30-59 ml/min: Assessment/Problem Details: He has a longstanding CKD due to the hypertension baseline serum creatinine was 1.8 mg/dL. Patient was following with the PCP for CKD care. (4) Paroxysmal atrial fibrillation with RVR: Assessment/Problem Details: Cardiology following, on heparin, amiodarone, Coreg, diltiazem, aspirin. (5) Acute hypoxic respiratory failure: Assessment/Problem Details: Acute hypoxic respiratory failure due to CHF exacerbation and A-fib RVR. (6) Acute systolic CHF (congestive heart failure): Assessment/Problem Details: EF 35 to 40%. On goal-directed medical therapy per cardiology. Cardiology following, on hydralazine, isosorbide, Lasix. Holding off on SGLT2 inhibitor due to renal dysfunction. (7) Hypertension: Assessment/Problem Details: Home medication consist of Norvasc 10 mg, previously within normal limits at PCPoffice. His blood pressure has been running relatively low in setting of A- fib with RVR. Plan * Decrease lasix to 40mg PO BID * Would recommend to adjust the medications to avoid hypotension in setting of diuresis. * Check magnesium and replete as necessary * Obtain renal US * Check UA * Avoid nephrotoxic medications * Check renal function daily * Monitor intake and output * Check daily weights * Thanks for your consult. Will continue follow-up with you. Please feel free to call us with any question. Patient was seen and examined with the resident. Labs reviewed and plan discussed as above. In summary this is a 79-year-old male was admitted for shortness of breath and A-fib with RVR. He was found to have NSTEMI and YOJANA on CKD. Patient making adequate output and his serum creatinine is fluctuating based on his hemodynamic status. His respiratory status has improved and oxygenrequirement has gone down with diuresis. Will change Lasix 40 mg p.o. twice daily. Documented By: Tobi Monroy MD 04/12/24 8128 Signed By: <Electronically signed by Tobi Monroy MD> 04/12/24 1034 <Electronically signed by DO NIKO Carpenter> 04/12/24 1022 [facility] Work Phone: 1(357) 341-352102-21-2025 [place] [address] Nephrology Consult Note Signed Patient: Corwin Muller MR#: [id number] : 1945 Acct:[id number] Age/Sex: 79 / M Adm Date: 5 Loc: 4 Room: [address] [place] [address] Type: ADM IN Attending Dr: Jersey Bess MD Copies to: MD Ranjan Patrick DO Kaitlyn Rizzo, DO, RES Jersey Bess MD~ Providers Consult Date: 04/12/24 Requesting Provider: Jersey Bess MD Primary Care Provider: Ranjan Lomas DO HPI Reason for Consult: YOJANA, fluid overload History of Present Illness: This is an 79 yo male with PMHx of chronic kidney disease stage IIIb, hyperlipidemia, atrial tachycardia, hypertension and arthritis that was at his doctor's appointment for injections to his knees when his vitals were checked. He was sent to the emergency room due to heart rate in the 140s. He denied any symptoms whatsoever at that time. He was evaluated in the [facility] with EKG showingSVT and inverted T waves. He received diltiazem bolus and drip. Chest x-ray with bilateral interstitial infiltrates. He was given digoxin, Lasix, morphine and developed respiratory distress with oxygen sat 87% on 5 L nasal cannula. He was then placed on BiPAP and Ruiz was placed as well. No leukocy tosis noted, BUN 29, creatinine 2.62, elevated troponins at 910 and BNP 8857. Patient was admitted for NSTEMI, CHF, and new onset A-fib. Echo showed EF 35 to 40% with moderate global hypokinesis of LV. Cardiology was consulted and recommended delaying ischemic evaluation after renal function has improved due to risk of contrast-induced nephropathy. He was started on GDMT forCHF including carvedilol, Imdur, hydralazine and Farxiga. Farxiga was stopped due to the hypotension. Nephrology was consulted due to YOJANA, fluid overload. Upon examination, patient is resting in chair. He states he feels fine today. He denies chest pain,shortness of breath, abdominal pain or any other symptoms aside from some lightheadedness. He states he noticed this today. He is not aware of any history of kidney disease. He states his urine output has been good. He denies any recent issues with leg swelling. Review of Systems Review of Systems All other systems reviewed & are negative unless noted below or in HPI Review of systems: Cardiovascular: denies any chest pain, palpitation Pulmonary: denies any cough, hemoptysis Gastrointestinal: denies any nausea, vomiting, diarrhea Neurological: denies any headache, numbness, weakness Endocrine: denies any polyuria, polydipsia Dermatological: denies any itching or rash [facility] Medical History (Updated 04/12/24 @ 10:33 by Tobi Monroy MD) Atrial tachycardia Lumbar spondylosis Hyperlipidemia type II Primary osteoarthritis of right knee Primary osteoarthritis of left knee Knee pain Hypertension Elevated cholesterol Surgical History H/O hernia repair Family History Father 67 yrs Aortic aneurysm and dissection Mother 90 yrs [facility]: Diagnosed with Stroke Stroke Brother Diabetes Had multiple health problems Brother Parkinson disease Social History Smoking Status: Never smoker Substance Use Type: Alcohol (rarely) Meds Medications & Allergies Allergies No Known Allergies Allergy (Verified 04/09/24 14:28) Home Medications atorvastatin 10 mg tablet 10 mg PO DAILY 06/27/23 [History Confirmed 04/09/24] multivitamin 1 tab PO DAILY 06/27/23 [History Confirmed 04/09/24] amlodipine 10 mg tablet See Rx Instructions .Route .COMPLEX #90 tabs 12/15/23 [Rx Confirmed 04/10/24] Active Medications: Active Medications Acetaminophen (Acetaminophen 500 Mg Tablet) 1,000 mg PO Q6HR PRN PRN Reason: Pain Scale 1 - 3 or fever Stop: 04/10/25 04:04 Amiodarone HCl (Amiodarone 200 Mg Tablet) 400 mg PO TID [facility] Stop: 04/11/25 13:59 Last Admin: 04/12/24 08:28 Dose: 400 mg Aspirin (Aspirin 81 Mg Tablet.) 81 mg PO DAILY [facility] Stop: 04/11/25 08:59 Last Admin: 04/12/24 08:28 Dose: 81 mg Carvedilol (Carvedilol 6.25 Mg Tablet) 6.25 mg PO BID.WITH.MEALS [facility] Stop: 04/11/25 07:59 Last Admin: 04/12/24 08:28 Dose: 6.25 mg Furosemide (Furosemide 40 Mg/4 Ml Vial) 40 mg IV-PUSH BID@0800,1600 [facility] Stop: 04/11/25 15:59 Last Admin: 04/12/24 08:28 Dose: 40 mg Heparin Sodium (Porcine) (Heparin *Protocol Bolus* 5,000 Unit/Ml Vial) 2,000 unit IV-PUSH PROTOCOL PRN PRN Reason: Anti-Xa < 0.1 or aPTT < 40 Stop: 04/11/25 10:13 Hydralazine HCl (Hydralazine 50 Mg Tablet) 50 mg PO BID [facility] Stop: 04/11/25 20:59 Last Admin: 04/11/24 21:45 Dose: Not Given Diltiazem HCl (Cardizem) 100 mg in 100 mls @ 10 mls/hr IV .Q10H [facility]; Protocol Stop: 04/11/25 10:14 Last Admin: 04/12/24 06:07 Dose: 10 mg/hr, 10 mls/hr Heparin Sodium/Sodium Chloride (Heparin) 25,000 unit in 250 mls @ 9.99 mls/hr IV .Q24H [facility]; Protocol Stop: 04/11/25 10:14 Last Titration: 04/12/24 01:48 Dose: 14.68 unit/kg/hr, 15.15 mls/hr Isosorbide Mononitrate (Isosorbide Mononitrate 24hr Er 60 Mg Tab.Er.24h) 60 mg PO DAILY.6A [facility] Stop: 04/11/25 11:59 Last Admin: 04/12/24 06:10 Dose: 60 mg Miscellaneous Information (Consult To Pharmacy) 1 each MISCELLANE .PHACONSULT PRN; Protocol PRN Reason: ZZ.Pharmacy Consult Stop: 04/11/25 10:13 Morphine Sulfate (Morphine Sulfate 2 Mg/Ml Vial) 2 mg IV-PUSH Q4H PRN PRN Reason: Pain Scale 8 - 10 Ondansetron HCl (Ondansetron 4 Mg/2 Ml Vial) 4 mg IV-PUSH Q6H PRN PRN Reason: Nausea And Vomiting Stop: 04/10/25 04:04 Sodium Chloride (Sodium Chloride 0.9 % 10 Ml Syringe) 0 ml IV-PUSH QSHIFT BLESSING Stop: 04/10/25 05:59 Last Admin: 04/12/24 06:11 Dose: 10 ml Exam Physical Exam Vital Signs: Temp Pulse Resp BP Pulse Ox O2 Del Method O2 Flow Rate 98.9 F 129 H 20 108/68 92 L Nasal Cannula 6 04/11/24 23:18 04/12/24 08:27 04/12/24 08:27 04/12/24 08:27 04/12/24 08:27 04/12/24 08:27 04/12/24 08:27 FiO2 50 04/12/24 04:00 Narrative: CONSTITUTIONAL: Alert, oriented HEAD: Normocephalic, atraumatic EYES: EOMI, pupils equal and reactive, conjunctiva normal ENT: External auditory canals wnl RESPIRATORY: Lungs clear bilaterally, symmetric chest rise CARDIOVASCULAR: Irregular rhythm and tachycardic rate, no murmurs ABDOMEN: Soft, non-tender, non-distended, normal bowel sounds SKIN: Intact, no rash, no trauma EXTREM: Trace edema, NO cyanosis NEURO: Nno focal neurologic signs PSYCHIATRIC: Normal affect, good insight Results - Nephrology Labs 04/12/24 05:06 04/12/24 05:06 Labs: 04/12/24 05:06 BUN 40 H Creatinine 2.62 H Albumin 3.2 L Radiology Impressions Impressions - last 24 hours: Any impression(s) listed above is documentation that was entered by the reading physician into a diagnostic report(s) for Corwin Muller. I have reviewed the report(s) and am incorporating anyfindings in the treatment plan of this patient where applicable. A&P - Nephrology Assessment/Plan (1) Acute kidney injury superimposed on CKD: Assessment/Problem Details: YOJANA on CKD stage IIIb due to cardiorenal syndrome in setting of A-fib with RVR and acute CHF exacerbation. (2) NSTEMI (non-ST elevated myocardial infarction): Assessment/Problem Details: Patient was admitted for WA and his echocardiogram showed EF 35 to 40%. He is currently on aspirin and carvedilol. Cardiology is following the patient and would like to do a invasive workup once renal function stabilized. (3) CKD (chronic kidney disease) stage 3, GFR 30-59 ml/min: Assessment/Problem Details: He has a longstanding CKD due to the hypertension baseline serum creatinine was 1.8 mg/dL. Patient was following with the PCP for CKD care. (4) Paroxysmal atrial fibrillation with RVR: Assessment/Problem Details: Cardiology following, on heparin, amiodarone, Coreg, diltiazem, aspirin. (5) Acute hypoxic respiratory failure: Assessment/Problem Details: Acute hypoxic respiratory failure due to CHF exacerbation and A-fib RVR. (6) Acute systolic CHF (congestive heart failure): Assessment/Problem Details: EF 35 to 40%. On goal-directed medical therapy per cardiology. Cardiology following, on hydralazine, isosorbide, Lasix. Holding off on SGLT2 inhibitor due to renal dysfunction. (7) Hypertension: Assessment/Problem Details: Home medication consist of Norvasc 10 mg, previously within normal limits at PCPoffice. His blood pressure has been running relatively low in setting of A- fib with RVR. Plan * Decrease lasix to 40mg PO BID * Would recommend to adjust the medications to avoid hypotension in setting of diuresis. * Check magnesium and replete as necessary * Obtain renal US * Check UA * Avoid nephrotoxic medications * Check renal function daily * Monitor intake and output * Check daily weights * Thanks for your consult. Will continue follow-up with you. Please feel free to call us with any question. Patient was seen and examined with the resident. Labs reviewed and plan discussed as above. In summary this is a 79-year-old male was admitted for shortness of breath and A-fib with RVR. He was foundto have NSTEMI and YOJANA on CKD. Patient making adequate output and his serum creatinine is fluctuating based on his hemodynamic status. His respiratory status has improved and oxygenrequirement has gone down with diuresis. Will change Lasix 40 mg p.o. twice daily. Documented By: Tobi Monroy MD 04/12/24 0855 Signed By: 04/12/24 1034 04/12/24 1022 [facility]02-20-2025 Progress note Author Keron Gutierres [facility] Note Date/Time April 11, 2024 12:56pm [facility] [address] [place] [address] Cardiology Progress Note Signed Patient: Corwin Muller MR#: [id number] : 1945 Acct:[id number] Age/Sex: 79 / M Adm Date: 5 Loc: 4 Room: 4V1312-5 Type: ADM IN Attending Dr: Jersey Bess MD Copies to: ~ Date of Service: 04/11/2024 Subjective Principal diagnosis: Congestive heart failure/atrial fibrillation Interval history: Mr. Muller is a 79 year old male was sent by his physician to the hospital because of observation of worsening respiratory status and tachycardia. He was evaluated in the emergency room at [place]. The patient described progressive shortness of breath over the last few days. On initial evaluation the patient was noted to be tachycardic with heart rate around 140. There was some concern about SVT and the patient was given a diltiazem but it appears that his EKG is more consistent with sinus tachycardia. Chest x-ray appears to be consistent with pulmonary edema. Patient experiencing respiratory distress which ultimately improved with IV diuresis and O2 supplementation. Troponin was significantly elevated when the patient was sent to [facility] for further care. The patient denies chest pain or lower extremity edema. He described orthopnea. He denies any previous history of coronary disease congestive heart failure valvular heart disease. On the presentation hewas noted to have significant renal insufficiency. Echocardiogram showed LV systolic dysfunction. Peak troponin close to 9000 creatinine was 2.6. The patient reported improvement of his clinical status and denies chest pain. He is hemodynamically stable. His heart rate has improved. His echocardiogram showed LV systolic dysfunction official interpretation was around 35-40% but I believe it is more consistent with around 25 to 30% Cardiology follow-up 04/11/2024: Patient is resting in bed with his daughter at the bedside. He appears to be more comfortable compared to when he came in. Hewent into atrial fibrillation with RVR this morning for which I initiated therapy with IV diltiazem and intravenous heparin. He is being diuresed with careful monitoring of renal function. The patient has no previous cardiac history whatsoever and all of this is new. Discussed the options of therapy with the patient and the need for further cardiac medications. The focus at thepresent time is on improving heart failure and hopefully restoring normal sinus rhythm. Exam Physical Exam Vital Signs: Temp Pulse Resp BP Pulse Ox O2 Del Method O2 Flow Rate 97.6 F 133 H 20 102/68 92 L Nasal Cannula 6 04/11/24 11:51 04/11/24 12:15 04/11/24 11:51 04/11/24 12:15 04/11/24 12:00 04/11/24 11:51 04/11/24 11:51 FiO2 45 04/11/24 04:00 Const General: cooperative, comfortable and no acute distress Nutritional Appearance: overweight Orientation: alert, awake and oriented x3 HEENT Head: normal to inspection, normocephalic and atraumatic Ears: hearing grossly normal bilaterally Nose: external nose normal Face and sinus: normal facial exam Eyes Conjunctivae: conjunctivae normal Pupils: PERRL Neck Neck: normal visual inspection, trachea midline and supple Neck mass: No Thyroid: thyroid normal Carotids: normal carotid upstroke Resp Effort & Inspection: normal respiratory effort Auscultation: clear to auscultation bilaterally Cardio Jugular venous pressure: no JVD Palpation: normal PMI Rate: tachycardic Rhythm: abnormal rhythm irregularly irregular Heart Sounds: S1 normal and S2 normal GI Inspection: normal to inspection Palpation: soft and no hepatosplenomegaly Auscultation: normal bowel sounds Extrem General: no clubbing, cyanosis or edema Objective Labs 04/11/24 05:43 04/11/24 05:43 Labs: Laboratory Results - last 24 hr 04/11/24 05:43 Corrected WBC 9.4 Uncorrected WBC Count 9.4 RBC 4.78 Hgb 14.6 Hct 42.1 MCV 88.1 MCH 30.6 MCHC 34.7 RDW 14.3 Plt Count 255 MPV 8.1 Neut % (Auto) 63.0 Lymph % (Auto) 21.4 Falls % (Auto) 10.9 Eos % (Auto) 4.3 Baso % (Auto) 0.4 Nucleat RBC Rel Count 0.1 Neut # (Auto) 5.9 Lymph # (Auto) 2.0 Falls # (Auto) 1.0 H Eos # (Auto) 0.4 Baso # (Auto) 0.0 PHA Creatinine Clear 30.91 Sodium 139 Potassium 3.1 L Chloride 104 Carbon Dioxide 25.6 Anion Gap 12.5 BUN 30 H Creatinine 2.34 H Est GFR (CKD-EPI) 27.431 Glucose 95 Calcium 8.7 Total Bilirubin 1.0 AST 19 ALT 14 Alkaline Phosphatase 50 Total Protein 6.4 Albumin 3.6 Globulin 2.8 Albumin/Globulin Ratio 1.3 A&P - Cardiology (1) NSTEMI (non-ST elevated myocardial infarction): Code(s): I21.4 - Non-ST elevation (NSTEMI) myocardial infarction (2) HFrEF (heart failure with reduced ejection fraction): Code(s): I50.20 - Unspecified systolic (congestive) heart failure (3) Chronic kidney disease: Qualifiers: Chronic kidney disease stage: stage 3 (moderate) Chronic kidney diseasestage 3 subtype: stage 3b (GFR 30-44) Qualified Code(s): N18.32 - Chronic kidney disease, stage 3b Code(s): N18.9 - Chronic kidney disease, unspecified (4) Paroxysmal atrial fibrillation with RVR: Code(s): I48.0 - Paroxysmal atrial fibrillation Plan Assessment 1. Progressive shortness of breath due to acute pulmonary edema 2. Non-ST elevation myocardial infarction 3. Renal insufficiency with creatinine 2.6 unclear whether it is acute on chronic 4. New onset atrial fibrillation with RVR 5. Cardiomyopathy with LVEF based on my review in the range of 25-30%, ischemiccomponent need to be ruled out Plan 1. Continue with cautious diuresis with close observation of renal function 2. low-dose beta-susie, IV heparin and continue aspirin 3. Start amiodarone loading dose 400 mg 3 times daily and utilize IV Cardizem drip and IV heparin for atrial fibrillation of new onset. 4. When more stable evaluation for recurrent ischemia noninvasively will be recommended Discussed at length with the patient and his daughter at the bedside Documented By: Keron Gutierres MD, [facility] 5 1250 Signed By: <Electronically signed by MD JUAN Gutierres> 04/11/24 125 [facility] Work Phone: 1(708) 945-581802-20-2025 Progress note Author Jersey Bess [facility] Note Date/Time April 11, 2024 12:15pm [facility] [address] [place] [address] Hospitalist Progress Note Signed Patient: Corwin Muller MR#: [id number] : 1945 Acct:[id number] Age/Sex: 79 / M Adm Date: 5 Loc: 4 Room: [address] [place] [address] Type: ADM IN Attending Dr: Jersey Bess MD Copies to: ~ Date of Service: 04/11/2024 Subjective Subjective Narrative: Patient was seen and evaluated at bedside. daughter at bedside. Oxygen requirements down to 6 L, however he is in Afib with RVR this am, given IV Lopressor overnight. started on Cardizem drip per cardio today. cardio followed and placed on GDMT. Net balance around 3 L over the past 24 hours while on Lasixdrip. Exam Physical Exam Vital Signs: Temp Pulse Resp BP Pulse Ox O2 Del Method O2 Flow Rate 97.6 F 131 H 20 99/72 L 91 L Nasal Cannula 6 04/11/24 11:51 04/11/24 11:51 04/11/24 11:51 04/11/24 11:51 04/11/24 11:51 04/11/24 11:51 04/11/24 11:51 FiO2 45 04/11/24 04:00 Narrative: Const General: cooperative HEENT Normal oropharyngeal mucosa without any ulcers or exudates Eyes: Conjunctiva normal Pulmonary Auscultation: slightly diminished breath sounds , mild b/l crackles on bases, nowheezes Cardiovascular Rate:tachycardic Rhythm: irregular rhythm Heart Sounds: S1 normal, S2 normal and no murmurs GI Inspection: non-distended Palpation: soft, not firm and nontender. No rigidity or rebound. Deferred Neuro General: alert, awake and oriented x3. No obvious new focal deficit Musculoskeletal: normal range of motion Extrem General: no cyanosis, trace pedal edema Psych Appearance: appropriate affect. Grossly normal Objective Lab Results 04/11/24 05:43 04/11/24 05:43 Meds Allergies and Active Meds Allergies No Known Allergies Allergy (Verified 04/09/24 14:28) Active Meds: Active Medications Generic Name Dose Route Start Last Admin Trade Name Freq PRN Reason Stop Dose Admin Acetaminophen 1,000 mg 04/10/24 04:05 Acetaminophen 500 Mg Tablet PO 04/10/25 04:04 Q6HR PRN Pain Scale 1 - 3 or fever Amiodarone HCl 400 mg 04/11/24 14:00 Amiodarone 200 Mg Tablet PO 04/11/25 13:59 TID BLESSING Aspirin 81 mg 04/11/24 09:00 04/11/24 08:09 Aspirin 81 Mg Tablet. PO 04/11/25 08:59 81 mg DAILY BLESSING Administration Carvedilol 6.25 mg 04/11/24 08:00 04/11/24 08:09 Carvedilol 6.25 Mg Tablet PO 04/11/25 07:59 6.25 mg BID.WITH.MEALS BLESSING Administration Heparin Sodium (Porcine) 2,000 unit 04/11/24 10:14 Heparin *Protocol Bolus* 5,000 Unit/Ml Vial IV-PUSH 04/11/25 10:13 PROTOCOL PRN Anti-Xa < 0.1 or aPTT < 40 Hydralazine HCl 50 mg 04/11/24 21:00 Hydralazine 50 Mg Tablet PO 04/11/25 20:59 BID BLESSING Furosemide 500 mg/ Sodium 100 mls @ 2 mls/hr 04/10/24 07:15 04/10/24 07:49 Chloride IV 04/10/25 07:14 10 mg/hr .Q24H BLESSING 2 mls/hr Administration 10 MG/HR Diltiazem HCl 100 mg in 100 mls @ 10 mls/hr 04/11/24 10:15 04/11/24 10:46 Cardizem IV 04/11/25 10:14 10 mg/hr .Q10H BLESSING 10 mls/hr Administration Protocol 10 MG/HR Heparin Sodium/Sodium Chloride 25,000 unit in 250 mls @ 9.99 mls/hr 04/11/24 10:15 04/11/24 10:42 Heparin IV 04/11/25 10:14 9.68 unit/kg/hr .Q24H BLESSING 9.99 mls/hr Administration Protocol 9.68 UNIT/KG/HR Isosorbide Mononitrate 60 mg 04/11/24 12:00 04/11/24 11:48 Isosorbide Mononitrate 24hr Er 60 Mg Tab.Er.24h PO 04/11/25 11:59 60 mg DAILY.6A BLESSING Administration Miscellaneous Information 1 each 04/11/24 10:14 Consult To Pharmacy MISCELLANE 04/11/25 10:13 .PHACONSULT PRN NATALYA.Pharmacy Consult Protocol Morphine Sulfate 2 mg 04/10/24 04:05 Morphine Sulfate 2 Mg/Ml Vial IV-PUSH Q4H PRN Pain Scale 8 - 10 Ondansetron HCl 4 mg 04/10/24 04:05 Ondansetron 4 Mg/2 Ml Vial IV-PUSH 04/10/25 04:04 Q6H PRN Nausea And Vomiting Sodium Chloride 0 ml 04/10/24 06:00 04/11/24 06:45 Sodium Chloride 0.9 % 10 Ml Syringe IV-PUSH 04/10/25 05:59 10 ml QSHIFT BLESSING Administration A&P - Hospitalist Assessment/Plan (1) Acute hypoxic respiratory failure: (2) Acute pulmonary edema: (3) Acute systolic CHF (congestive heart failure): (4) HFrEF (heart failure with reduced ejection fraction): (5) NSTEMI (non-ST elevated myocardial infarction): (6) Cardiomyopathy: Plan Acute systolic heart failure exacerbation Acute pulmonary edema Heart failure with reduced ejection fraction cardiomyopathy -Patient with leg edema, shortness of breath, elevated BNP -Chest x-ray showed vascular congestion -Echocardiogram done showed EF 35-40%, moderate global hypokinesis of the left ventricle, mild LVH -Low-sodium diet 2g daily -Stop Lasix drip, continue Lasix 40 mg BID. Output about 3 L over the past 24 hours. -Cardiology consulted. Pt was initiated on GDMT, BB, hydralazine and Imdur due to renal failure, Lasix. -SGLT2i not started due to renal failure. Can be revisted later down the road/outpatient. -Ischemic workup as per cardiology -Oxygen supplementation as needed -Monitor electrolytes while on diuretics -CPAP at night and as needed Afib with RVR -Pt noted Afib with RVR overnight, given Lopressor, HR 130s this am. -Started on Cardizem drip. -Started on Heparin drip per cardio -Started on Amiodarone per cardio -Cardiology following -Cardiac monitoring YOJANA on CKD -Baseline seems around Cr. 1.8. -Cr today 2.3 improving with diuresis -Continue Lasix IV BID -PT has Ruiz catheter for accurate output. Diet: healthy heart DVT ppx:heparin drip Code status: Full Status: inpatient Discussed with patient and daughter at bedside. All questions answered. In agreement with the above plan Jersey Quigley MD Internal Medicine Hospitalist Attending Physician Documented By: Jersey Bess MD 04/11/24 11 57 Signed By: <Electronically signed by Jersey Bess MD> 04/11/24 1215 [facility] Work Phone: 1(337) 583-761902-20-[address] [address] Cardiology Progress Note Signed Patient: Corwin Muller MR#: [id number] : 1945 Acct:[id number] Age/Sex: 79 / M Adm Date: 5 Loc: Room: [address] [place] [address] Type: ADM IN Attending Dr: Jersey Bess MD Copies to: ~ Date of Service: 04/11/2024 Subjective Principal diagnosis: Congestive heart failure/atrial fibrillation Interval history: Mr. Muller is a 79 year old male was sent by his physician to the hospital because of observationof worsening respiratory status and tachycardia. He was evaluated in the emergency room at [place]. The patient described progressive shortness of breath over the last few days. On initial evaluation the patient was noted to be tachycardic with heart rate around 140. There was some concern about SVT and the patient was given a diltiazem but it appears that his EKG is more consistent with sinus tachycardia. Chest x-ray appears to be consistent with pulmonary edema. Patient experiencing respiratory distress which ultimately improved with IV diuresis and O2 supplementation. Troponin was significantly elevated when the patient was sent to [facility] for further care. Thepatient denies chest pain or lower extremity edema. He described orthopnea. He denies any previous history of coronary disease congestive heart failure valvular heart disease. On the presentation hewas noted to have significant renal insufficiency. Echocardiogram showed LV systolic dysfunction. Peak troponin close to 9000 creatinine was 2.6. The patient reported improvement of his clinical statusand denies chest pain. He is hemodynamically stable. His heart rate has improved. His echocardiogram showed LV systolic dysfunction official interpretation was around 35-40% but I believe it is more consistent with around 25 to 30% Cardiology follow-up 04/11/2024: Patient is resting in bed with his daughter at the bedside. He appears to be more comfortable compared to when he came in. Hewent into atrial fibrillation with RVR this morning for which I initiated therapy with IV diltiazem and intravenous heparin. He is being diuresed with careful monitoring of renal function. The patient has no previous cardiac history whatsoever and all of this is new. Discussed the options of therapy with the patient and the need for furthercardiac medications. The focus at thepresent time is on improving heart failure and hopefully restoring normal sinus rhythm. Exam Physical Exam Vital Signs: Temp Pulse Resp BP Pulse Ox O2 Del Method O2 Flow Rate 97.6 F 133 H 20 102/68 92 L Nasal Cannula 6 04/11/24 11:51 04/11/24 12:15 04/11/24 11:51 04/11/24 12:15 04/11/24 12:00 04/11/24 11:51 04/11/24 11:51 FiO2 45 04/11/24 04:00 Const General: cooperative, comfortable and no acute distress Nutritional Appearance: overweight Orientation: alert, awake and oriented x3 HEENT Head: normal to inspection, normocephalic and atraumatic Ears: hearing grossly normal bilaterally Nose: external nose normal Face and sinus: normal facial exam Eyes Conjunctivae: conjunctivae normal Pupils: PERRL Neck Neck: normal visual inspection, trachea midline and supple Neck mass: No Thyroid: thyroid normal Carotids: normal carotid upstroke Resp Effort & Inspection: normal respiratory effort Auscultation: clear to auscultation bilaterally Cardio Jugular venous pressure: no JVD Palpation: normal PMI Rate: tachycardic Rhythm: abnormal rhythm irregularly irregular Heart Sounds: S1 normal and S2 normal GI Inspection: normal to inspection Palpation: soft and no hepatosplenomegaly Auscultation: normal bowel sounds Extrem General: no clubbing, cyanosis or edema Objective Labs 04/11/24 05:43 04/11/24 05:43 Labs: Laboratory Results - last 24 hr 04/11/24 05:43 Corrected WBC 9.4 Uncorrected WBC Count 9.4 RBC 4.78 Hgb 14.6 Hct 42.1 MCV 88.1 MCH 30.6 MCHC 34.7 RDW 14.3 Plt Count 255 MPV 8.1 Neut % (Auto) 63.0 Lymph % (Auto) 21.4 Falls % (Auto) 10.9 Eos % (Auto) 4.3 Baso % (Auto) 0.4 Nucleat RBC Rel Count 0.1 Neut # (Auto) 5.9 Lymph # (Auto) 2.0 Falls # (Auto) 1.0 H Eos # (Auto) 0.4 Baso # (Auto) 0.0 PHA Creatinine Clear 30.91 Sodium 139 Potassium 3.1 L Chloride 104 Carbon Dioxide 25.6 Anion Gap 12.5 BUN 30 H Creatinine 2.34 H Est GFR (CKD-EPI) 27.431 Glucose 95 Calcium 8.7 Total Bilirubin 1.0 AST 19 ALT 14 Alkaline Phosphatase 50 Total Protein 6.4 Albumin 3.6 Globulin 2.8 Albumin/Globulin Ratio 1.3 A&P - Cardiology (1) NSTEMI (non-ST elevated myocardial infarction): Code(s): I21.4 - Non-ST elevation (NSTEMI) myocardial infarction (2) HFrEF (heart failure with reduced ejection fraction): Code(s): I50.20 - Unspecified systolic (congestive) heart failure (3) Chronic kidney disease: Qualifiers: Chronic kidney disease stage: stage 3 (moderate) Chronic kidney diseasestage 3 subtype: stage 3b (GFR 30-44) Qualified Code(s): N18.32 - Chronic kidney disease, stage 3b Code(s): N18.9 - Chronic kidney disease, unspecified (4) Paroxysmal atrial fibrillation with RVR: Code(s): I48.0 - Paroxysmal atrial fibrillation Plan Assessment 1. Progressive shortness of breath due to acute pulmonary edema 2. Non-ST elevation myocardial infarction 3. Renal insufficiency with creatinine 2.6 unclear whether it is acute on chronic 4. New onset atrial fibrillation with RVR 5. Cardiomyopathy with LVEF based on my review in the range of 25-30%, ischemiccomponent need to beruled out Plan 1. Continue with cautious diuresis with close observation of renal function 2. low-dose beta-susie, IV heparin and continue aspirin 3. Start amiodarone loading dose 400 mg 3 times daily and utilize IV Cardizem drip and IV heparin for atrial fibrillation of new onset. 4. When more stable evaluation for recurrent ischemia noninvasively will be recommended Discussed at length with the patient and his daughter at the bedside Documented By: Keron Gutierres MD, [facility] 5 1250 Signed By: 04/11/24 1256 [facility]02-20-2025 [place] [address] Hospitalist Progress Note Signed Patient: Corwin Muller MR#: [id number] : 1945 Acct:[id number] Age/Sex: 79 / M Adm Date: 5 Loc: 4 Room: [address] [place] [address] Type: ADM IN Attending Dr: Jersey Bess MD Copies to: ~ Date of Service: 04/11/2024 Subjective Subjective Narrative: Patient was seen and evaluated at bedside. daughter at bedside. Oxygen requirements down to 6 L, however he is in Afib with RVR this am, given IV Lopressor overnight. started on Cardizem drip per cardio today. cardio followed and placed on GDMT. Net balance around 3 L over the past 24 hours while on Lasixdrip. Exam Physical Exam Vital Signs: Temp Pulse Resp BP Pulse Ox O2 Del Method O2 Flow Rate 97.6 F 131 H 20 99/72 L 91 L Nasal Cannula 6 04/11/24 11:51 04/11/24 11:51 04/11/24 11:51 04/11/24 11:51 04/11/24 11:51 04/11/24 11:51 04/11/24 11:51 FiO2 45 04/11/24 04:00 Narrative: Const General: cooperative HEENT Normal oropharyngeal mucosa without any ulcers or exudates Eyes: Conjunctiva normal Pulmonary Auscultation: slightly diminished breath sounds , mild b/l crackles on bases, nowheezes Cardiovascular Rate:tachycardic Rhythm: irregular rhythm Heart Sounds: S1 normal, S2 normal and no murmurs GI Inspection: non-distended Palpation: soft, not firm and nontender. No rigidity or rebound. Deferred Neuro General: alert, awake and oriented x3. No obvious new focal deficit Musculoskeletal: normal range of motion Extrem General: no cyanosis, trace pedal edema Psych Appearance: appropriate affect. Grossly normal Objective Lab Results 04/11/24 05:43 04/11/24 05:43 Meds Allergies and Active Meds Allergies No Known Allergies Allergy (Verified 04/09/24 14:28) Active Meds: Active Medications Generic Name Dose Route Start Last Admin Trade Name Freq PRN Reason Stop Dose Admin Acetaminophen 1,000 mg 04/10/24 04:05 Acetaminophen 500 Mg Tablet PO 04/10/25 04:04 Q6HR PRN Pain Scale 1 - 3 or fever Amiodarone HCl 400 mg 04/11/24 14:00 Amiodarone 200 Mg Tablet PO 04/11/25 13:59 TID BLESSING Aspirin 81 mg 04/11/24 09:00 04/11/24 08:09 Aspirin 81 Mg Tablet. PO 04/11/25 08:59 81 mg DAILY BLESSING Administration Carvedilol 6.25 mg 04/11/24 08:00 04/11/24 08:09 Carvedilol 6.25 Mg Tablet PO 04/11/25 07:59 6.25 mg BID.WITH.MEALS BLESSING Administration Heparin Sodium (Porcine) 2,000 unit 04/11/24 10:14 Heparin *Protocol Bolus* 5,000 Unit/Ml Vial IV-PUSH 04/11/25 10:13 PROTOCOL PRN Anti-Xa < 0.1 or aPTT < 40 Hydralazine HCl 50 mg 04/11/24 21:00 Hydralazine 50 Mg Tablet PO 04/11/25 20:59 BID [facility] Furosemide 500 mg/ Sodium 100 mls @ 2 mls/hr 04/10/24 07:15 04/10/24 07:49 Chloride IV 04/10/25 07:14 10 mg/hr .Q24H BLESSING 2 mls/hr Administration 10 MG/HR Diltiazem HCl 100 mg in 100 mls @ 10 mls/hr 04/11/24 10:15 04/11/24 10:46 Cardizem IV 04/11/25 10:14 10 mg/hr .Q10H BLESSING 10 mls/hr Administration Protocol 10 MG/HR Heparin Sodium/Sodium Chloride 25,000 unit in 250 mls @ 9.99 mls/hr 04/11/24 10:15 04/11/24 10:42 Heparin IV 04/11/25 10:14 9.68 unit/kg/hr .Q24H BLESSING 9.99 mls/hr Administration Protocol 9.68 UNIT/KG/HR Isosorbide Mononitrate 60 mg 04/11/24 12:00 04/11/24 11:48 Isosorbide Mononitrate 24hr Er 60 Mg Tab.Er.24h PO 04/11/25 11:59 60 mg DAILY.6A BLESSING Administration Miscellaneous Information 1 each 04/11/24 10:14 Consult To Pharmacy MISCELLANE 04/11/25 10:13 .PHACONSULT PRN ZZ.Pharmacy Consult Protocol Morphine Sulfate 2 mg 04/10/24 04:05 Morphine Sulfate 2 Mg/Ml Vial IV-PUSH Q4H PRN Pain Scale 8 - 10 Ondansetron HCl 4 mg 04/10/24 04:05 Ondansetron 4 Mg/2 Ml Vial IV-PUSH 04/10/25 04:04 Q6H PRN Nausea And Vomiting Sodium Chloride 0 ml 04/10/24 06:00 04/11/24 06:45 Sodium Chloride 0.9 % 10 Ml Syringe IV-PUSH 04/10/25 05:59 10 ml QSHIFT BLESSING Administration A&P - Hospitalist Assessment/Plan (1) Acute hypoxic respiratory failure: (2) Acute pulmonary edema: (3) Acute systolic CHF (congestive heart failure): (4) HFrEF (heart failure with reduced ejection fraction): (5) NSTEMI (non-ST elevated myocardial infarction): (6) Cardiomyopathy: Plan Acute systolic heart failure exacerbation Acute pulmonary edema Heart failure with reduced ejection fraction cardiomyopathy -Patient with leg edema, shortness of breath, elevated BNP -Chest x-ray showed vascular congestion -Echocardiogram done showed EF 35-40%, moderate global hypokinesis of the left ventricle, mild LVH -Low-sodium diet 2g daily -Stop Lasix drip, continue Lasix 40 mg BID. Output about 3 L over the past 24 hours. -Cardiology consulted. Pt was initiated on GDMT, BB, hydralazine and Imdur due to renal failure, Lasix. -SGLT2i not started due to renal failure. Can be revisted later down the road/outpatient. -Ischemic workup as per cardiology -Oxygen supplementation as needed -Monitor electrolytes while on diuretics -CPAP at night and as needed Afib with RVR -Pt noted Afib with RVR overnight, given Lopressor, HR 130s this am. -Started on Cardizem drip. -Started on Heparin drip per cardio -Started on Amiodarone per cardio -Cardiology following -Cardiac monitoring YOJANA on CKD -Baseline seems around Cr. 1.8. -Cr today 2.3 improving with diuresis -Continue Lasix IV BID -PT has Ruiz catheter for accurate output. Diet: healthy heart DVT ppx:heparin drip Code status: Full Status: inpatient Discussed with patient and daughter at bedside. All questions answered. In agreement with the aboveplan Jersey Quigley MD Internal Medicine Hospitalist Attending Physician Documented By: Jersey Bess MD 04/11/24 11 57 Signed By: 04/11/24 1215 [facility]02-19-2025 Consult note Author Mely Ken [facility] Note Date/Time April 10, 2024 6:17pm [facility] [address] [place] [address] Cardiology Consult Note Signed Patient: Corwin Muller MR#: [id number] : 1945 Acct:[id number] Age/Sex: 79 / M Adm Date: 5 Loc: Room: [address] [place] [address] Type: ADM IN Attending Dr: Jersey Bess MD Copies to: DO Mely Johansen MD Obaydah M Daromar, MD~ Cardiology HPI History of Present Illness Consult Date: 04/10/24 Reason for Consult: Cardiac consultation requested for evaluation for acute coronary syndrome and pulmonary edema HPI: Mr. Muller is a 79 year old male was sent by his physician to the hospital because of observation of worsening respiratory status and tachycardia. He was evaluated in the emergency room at [place]. The patient described progressive shortness of breath over the last few days. On initial evaluation the patient was noted to be tachycardic with heart rate around 140. There was some concern about SVT and the patient was given a diltiazem but it appears that his EKG is more consistent with sinus tachycardia. Chest x-ray appears to be consistent with pulmonary edema. Patient experiencing respiratory distress which ultimately improved with IV diuresis and O2 supplementation. Troponin was significantly elevated when the patient was sent to [facility] for further care. The patient denies chest pain or lower extremity edema. He described orthopnea. He denies any previous history of coronary disease congestive heart failure valvular heart disease. On the presentation hewas noted to have significant renal insufficiency. Echocardiogram showed LV systolic dysfunction. Peak troponin close to 9000 creatinine was 2.6. The patient reported improvement of his clinical status and denies chest pain. He is hemodynamically stable. His heart rate has improved. His echocardiogram showed LV systolic dysfunction official interpretation was around 35-40% but I believe it is more consistent with around 25 to 30% Review of Systems Review of Systems All other systems reviewed & are negative unless noted below or in HPI Review of systems: Patient report shortness of breath, orthopnea and the pain [facility] Medical History Atrial tachycardia Chronic kidney disease Lumbar spondylosis Hyperlipidemia type II Primary osteoarthritis of right knee Primary osteoarthritis of left knee Knee pain Hypertension Elevated cholesterol Surgical History H/O hernia repair Family History Father 67 yrs Aortic aneurysm and dissection Mother 90 yrs History of stroke Legacy FamHx Problem: Diagnosed with Stroke Stroke Brother Diabetes Had multiple health problems Brother Parkinson disease Social History Smoking Status: Never smoker Substance Use Type: Alcohol (rarely) Meds Medications and Allergies Allergies No Known Allergies Allergy (Verified 04/09/24 14:28) Home Medications atorvastatin 10 mg tablet 10 mg PO DAILY 06/27/23 [History Confirmed 04/09/24] multivitamin 1 tab PO DAILY 06/27/23 [History Confirmed 04/09/24] amlodipine 10 mg tablet See Rx Instructions .Route .COMPLEX #90 tabs 12/15/23 [Rx Confirmed 04/10/24] Exam Physical Exam Vital Signs: Temp Pulse Resp BP Pulse Ox O2 Del Method O2 Flow Rate 98.8 F 91 18 136/84 92 L Nasal Cannula 6 04/10/24 16:00 04/10/24 16:00 04/10/24 16:00 04/10/24 16:00 04/10/24 16:00 04/10/24 16:25 04/10/24 16:25 FiO2 70 04/10/24 14:22 Const General: cooperative, comfortable and well developed HEENT Head: atraumatic Mouth: oral mucosae normal Eyes General: appearance normal, both eyes and all related structures Pupils: PERRL Neck Neck: normal visual inspection, supple and no lymphadenopathy noted Neck mass: No Thyroid: thyroid normal Carotids: normal carotid upstroke Chest Chest palpation & inspection: normal inspection of the chest Resp Auscultation: crackles, rales and rhonchi Cardio Palpation: normal PMI Rate: regular rate Rhythm: regular rhythm Heart Sounds: S1 normal, S2 normal and murmur systolic II/ and at the right sternal border GI Palpation: soft and no hepatosplenomegaly Percussion: normal to percussion Auscultation: normal bowel sounds Skin General: no rashes or lesions noted and dry skin Neuro General: patient alert, patient awake, patient oriented x3, tone normal and moves all extremities Extrem General: full ROM, capillary refill normal and no clubbing, cyanosis or edema Psych Mental Status: mental status grossly normal Results - Cardiology Labs 04/10/24 06:01 04/10/24 06:01 Lab results: Lipids 04/10/24 Range/Units 06:01 Triglycerides 108 (0-149) mg/dL Cholesterol 168 (140-200) mg/dL HDL Cholesterol 26 (23-92) mg/dL Cholesterol/HDL Ratio 6.5 (<5.0) CBC 04/10/24 Range/Units 06:01 RBC 5.05 (3.90-5.60) x10E6/uL Hgb 15.1 (13.0-17.0) g/dL Hct 44.8 (38.8-50.0) % Plt Count 252 (150-450) x10E3/uL Neut # (Auto) 7.9 H (1.8-7.7) x10E3/uL Lymph # (Auto) 2.0 (1.00-4.8) x10E3/uL Falls # (Auto) 1.1 H (0.0-0.8) x10E3/uL Eos # (Auto) 0.3 (0.0-0.45) x10E3/uL Baso # (Auto) 0.1 (0.0-0.2) x10E3/uL Comprehensive Metabolic Panel 04/10/24 Range/Units 06:01 Sodium 139 (136-145) mmol/L Potassium 3.6 (3.5-5.1) mmol/L Chloride 108 H (98-107) mmol/L Carbon Dioxide 22.6 (21.0-31.0) mmol/L BUN 28 H (7-25) mg/dL Creatinine 2.36 H (0.70-1.30) mg/dL Glucose 109 H (70-100) mg/dL Calcium 9.2 (8.6-10.3) mg/dL Intake and Output 04/10/24 04/10/24 04/10/24 07:59 15:59 23:59 Intake Total 150 / 350 200 / 350 Output Total 400 / 1999 Balance -250 / -1650 -1400 / -1650 Intake: Oral 150 / 350 200 / 350 Output: Urine Amount (Catheter) 400 1999 Urethral (Ruiz) 400 1999 Other: Weight 103.2 kg Date of Last Bowel Movement 04/09/24 04/09/24 Patient Weight 04/10/24 23:59 Weight 103.2 kg Lab 04/10/24 02:50 PT 13.2 H INR 1.2 APTT 28.8 EKG Interpretations EKG Attestation EKG: I reviewed this ECG and interpreted as documented below: (Sinustachycardia with nonspecific ST-T changes and poor R wave progression anterior lead) A&P - Cardiology (1) NSTEMI (non-ST elevated myocardial infarction): Code(s): I21.4 - Non-ST elevation (NSTEMI) myocardial infarction Plan Assessment 1. Progressive shortness of breath due to acute pulmonary edema 2. Large acute coronary syndrome/non-Q wave myocardial infarction 3. Renal insufficiency with creatinine 2.6 unclear whether it is acute on chronic 4. Essential hypertension 5. Cardiomyopathy with LVEF based on my review in the range of 25-30% 6. Very likely advanced underlying ischemic heart disease 7. Tachycardia on presentation it appears to be more consistent with sinus tachycardia due to heart failure and pulmonary edema Plan 1. Continue with cautious diuresis with close observation of renal function 2. Start low-dose beta-susie and heparin and continue aspirin 3. Echocardiogram reviewed 4. The patient will need ischemic evaluation. We discussed the timing of that. Considering the magnitude of his renal dysfunction and his improvement and response to medical therapy I believe that the patient best interest to delay invasive ischemic evaluation hopefully until his heart failure pulmonary edema improved and hopefully his renal function improves otherwise the risk of contrast-induced nephropathy and the need for hemodialysis is high 5. Keep the patient in ICU 6. The critical nature and the complexity of his care reviewed with him and hiswife at great length Documented By: Mely Ken MD 04/10/241806 Signed By: <Electronically signed by MD Mely Ken> 04/10/241816 [facility] Work Phone: [phone] Consult [place] [id number] Cardiology Consult Note Signed Patient: Cowrin Muller MR#: [id number] : 1945 Acct:[id number] Age/Sex: 79 / M Adm Date: 5 Loc: Room: [address] [place] [address] Type: ADM IN Attending Dr: Jersey Bess MD Copies to: DO Mely Johansen MD Obaydah M Daromar, MD~ Cardiology HPI History of Present Illness Consult Date: 04/10/24 Reason for Consult: Cardiac consultation requested for evaluation for acute coronary syndrome and pulmonary edema HPI: Mr. Muller is a 79 year old male was sent by his physician to the hospital because of observationof worsening respiratory status and tachycardia. He was evaluated in the emergency room at [place]. The patient described progressive shortness of breath over the last few days. On initial evaluation the patient was noted to be tachycardic with heart rate around 140. There was some concern about SVT and the patient was given a diltiazem but it appears that his EKG is more consistent with sinus tachycardia. Chest x-ray appears to be consistent with pulmonary edema. Patient experiencing respiratory distress which ultimately improved with IV diuresis and O2 supplementation. Troponin was significantly elevated when the patient was sent to [facility] for further care. Thepatient denies chest pain or lower extremity edema. He described orthopnea. He denies any previous history of coronary disease congestive heart failure valvular heart disease. On the presentation hewas noted to have significant renal insufficiency. Echocardiogram showed LV systolic dysfunction. Peak troponin close to 9000 creatinine was 2.6. The patient reported improvement of his clinical statusand denies chest pain. He is hemodynamically stable. His heart rate has improved. His echocardiogram showed LV systolic dysfunction official interpretation was around 35-40% but I believe it is more consistent with around 25 to 30% Review of Systems Review of Systems All other systems reviewed & are negative unless noted below or in HPI Review of systems: Patient report shortness of breath, orthopnea and the pain [facility] Medical History Atrial tachycardia Chronic kidney disease Lumbar spondylosis Hyperlipidemia type II Primary osteoarthritis of right knee Primary osteoarthritis of left knee Knee pain Hypertension Elevated cholesterol Surgical History H/O hernia repair Family History Father 67 yrs Aortic aneurysm and dissection Mother 90 yrs History of stroke Legacy FamHx Problem: Diagnosed with Stroke Stroke Brother Diabetes Had multiple health problems Brother Parkinson disease Social History Smoking Status: Never smoker Substance Use Type: Alcohol (rarely) Meds Medications and Allergies Allergies No Known Allergies Allergy (Verified 04/09/24 14:28) Home Medications atorvastatin 10 mg tablet 10 mg PO DAILY 06/27/23 [History Confirmed 04/09/24] multivitamin 1 tab PO DAILY 06/27/23 [History Confirmed 04/09/24] amlodipine 10 mg tablet See Rx Instructions .Route .COMPLEX #90 tabs 12/15/23 [Rx Confirmed 04/10/24] Exam Physical Exam Vital Signs: Temp Pulse Resp BP Pulse Ox O2 Del Method O2 Flow Rate 98.8 F 91 18 136/84 92 L Nasal Cannula 6 04/10/24 16:00 04/10/24 16:00 04/10/24 16:00 04/10/24 16:00 04/10/24 16:00 04/10/24 16:25 04/10/24 16:25 FiO2 70 04/10/24 14:22 Const General: cooperative, comfortable and well developed HEENT Head: atraumatic Mouth: oral mucosae normal Eyes General: appearance normal, both eyes and all related structures Pupils: PERRL Neck Neck: normal visual inspection, supple and no lymphadenopathy noted Neck mass: No Thyroid: thyroid normal Carotids: normal carotid upstroke Chest Chest palpation & inspection: normal inspection of the chest Resp Auscultation: crackles, rales and rhonchi Cardio Palpation: normal PMI Rate: regular rate Rhythm: regular rhythm Heart Sounds: S1 normal, S2 normal and murmur systolic II/ and at the right sternal border GI Palpation: soft and no hepatosplenomegaly Percussion: normal to percussion Auscultation: normal bowel sounds Skin General: no rashes or lesions noted and dry skin Neuro General: patient alert, patient awake, patient oriented x3, tone normal and moves all extremities Extrem General: full ROM, capillary refill normal and no clubbing, cyanosis or edema Psych Mental Status: mental status grossly normal Results - Cardiology Labs 04/10/24 06:01 04/10/24 06:01 Lab results: Lipids 04/10/24 Range/Units 06:01 Triglycerides 108 (0-149) mg/dL Cholesterol 168 (140-200) mg/dL HDL Cholesterol 26 (23-92) mg/dL Cholesterol/HDL Ratio 6.5 (<5.0) CBC 04/10/24 Range/Units 06:01 RBC 5.05 (3.90-5.60) x10E6/uL Hgb 15.1 (13.0-17.0) g/dL Hct 44.8 (38.8-50.0) % Plt Count 252 (150-450) x10E3/uL Neut # (Auto) 7.9 H (1.8-7.7) x10E3/uL Lymph # (Auto) 2.0 (1.00-4.8) x10E3/uL Falls # (Auto) 1.1 H (0.0-0.8) x10E3/uL Eos # (Auto) 0.3 (0.0-0.45) x10E3/uL Baso # (Auto) 0.1 (0.0-0.2) x10E3/uL Comprehensive Metabolic Panel 04/10/24 Range/Units 06:01 Sodium 139 (136-145) mmol/L Potassium 3.6 (3.5-5.1) mmol/L Chloride 108 H (98-107) mmol/L Carbon Dioxide 22.6 (21.0-31.0) mmol/L BUN 28 H (7-25) mg/dL Creatinine 2.36 H (0.70-1.30) mg/dL Glucose 109 H (70-100) mg/dL Calcium 9.2 (8.6-10.3) mg/dL Intake and Output 04/10/24 04/10/24 04/10/24 07:59 15:59 23:59 Intake Total 150 / 350 200 / 350 Output Total 400 / 2000 1599 Balance -250 / -1650 -1400 / -1650 Intake: Oral 150 / 350 200 / 350 Output: Urine Amount (Catheter) 400 / 1999 Urethral (Ruiz) 400 / 1999 Other: Weight 103.2 kg Date of Last Bowel Movement 04/09/24 04/09/24 Patient Weight 04/10/24 23:59 Weight 103.2 kg Lab 04/10/24 02:50 PT 13.2 H INR 1.2 APTT 28.8 EKG Interpretations EKG Attestation EKG: I reviewed this ECG and interpreted as documented below: (Sinustachycardia with nonspecific ST-T changes and poor R wave progression anterior lead) A&P - Cardiology (1) NSTEMI (non-ST elevated myocardial infarction): Code(s): I21.4 - Non-ST elevation (NSTEMI) myocardial infarction Plan Assessment 1. Progressive shortness of breath due to acute pulmonary edema 2. Large acute coronary syndrome/non-Q wave myocardial infarction 3. Renal insufficiency with creatinine 2.6 unclear whether it is acute on chronic 4. Essential hypertension 5. Cardiomyopathy with LVEF based on my review in the range of 25-30% 6. Very likely advanced underlying ischemic heart disease 7. Tachycardia on presentation it appears to be more consistent with sinus tachycardia due to heartfailure and pulmonary edema Plan 1. Continue with cautious diuresis with close observation of renal function 2. Start low-dose beta-susie and heparin and continue aspirin 3. Echocardiogram reviewed 4. The patient will need ischemic evaluation. We discussed the timing of that. Considering the magnitude of his renal dysfunction and his improvement and response to medical therapy I believe that the patient best interest to delay invasive ischemic evaluation hopefully until his heart failure pulmonary edema improved and hopefully his renal function improves otherwise the risk of contrast-induced nephropathy and the need for hemodialysis is high 5. Keep the patient in ICU 6. The critical nature and the complexity of his care reviewed with him and hiswife at great length Documented By: Mely Ken MD 04/10/241806 Signed By: 04/10/241816 [facility]02-19-2025 Progress note Author Jersey Bess [facility] Note Date/Time April 10, 2024 2:38pm [facility] [address] [place] [id number] Progress Note Signed Patient: Corwin Muller MR#: [id number] : 1945 Acct:[id number] Age/Sex: 79 / M Adm Date: 5 Loc: Room: [address] [place] [address] Type: ADM IN Attending Dr: Jersey Bess MD Copies to: ~ Date of Service: 04/10/2024 Progress Narrative Note PROGRESS NOTE Progress Note: Patient was seen and evaluated at bedside. Patient was admitted after midnight by our night hospitalist, for further details refer to H&P. Patient patient wasplaced on BiPAP earlier this morning by overnight hospitalist, per impression acute pulmonary edema. Patient was placed on Lasix drip. Echocardiogram was done which showed EF 35 to 40%. Moderate global hypokinesis of the left ventricle. Cardiology was consulted. input appreciated. no plan for cath today.Resumed diet. Patient rate is better. initial came with Afib with RVR, improved with Cardizem drip. Discussed with patient and at bedside. Documented By: Jersey Bess MD 04/10/24 14 34 Signed By: <Electronically signed by Jersey Bess MD> 04/10/24 1438 [facility] Work Phone: 1(752) 871-827602-19-[address] [address] Progress Note Signed Patient: Corwin Muller MR#: [id number] : 1945 Acct:[id number] Age/Sex: 79 / M Adm Date: 5 Loc: Room: [address] [place] [address] Type: ADM IN Attending Dr: Jersey Bess MD Copies to: ~ Date of Service: 04/10/2024 Progress Narrative Note PROGRESS NOTE Progress Note: Patient was seen and evaluated at bedside. Patient was admitted after midnight by our night hospitalist, for further details refer to H&P. Patient patient wasplaced on BiPAP earlier this morning by overnight hospitalist, per impression acute pulmonary edema. Patient was placed on Lasix drip. Echocardiogram was done which showed EF 35 to 40%. Moderate global hypokinesis of the left ventricle. C ardiology was consulted. input appreciated. no plan for cath today.Resumed diet. Patient rate is better. initial came with Afib with RVR, improved with Cardizem drip. Discussed with patient and at bedside. Documented By: Jersey Bess MD 04/10/24 14 34 Signed By: 04/10/24 1438 [facility]02-19-2025 History and physical note Author Holly Weinberg [facility] Note Date/Time April 10, 2024 6:45am [facility] [address] [place] [address] Hospitalist H&P Signed Patient: Corwin Muller MR#: [id number] : 1945 Acct:[id number] Age/Sex: 79 / M Adm Date: 5 Loc: Room: [address] [place] [address] Type: ADM IN Attending Dr: Kurtis Langley MD Copies to: MD Ranjan Soto,DO Holly Weinberg, [employer] FINISHER~ HPI DATE OF EXAMINATION: 04/10/24 CHIEF COMPLAINT: fast heart rate HISTORY OF PRESENT ILLNESS: Attending note: As I walked into the room to check the patient, staff was ready to: ABT because of respiratory distress. Patient was tachypneic, agitated, in obvious respiratory distress. He was tachycardic and blood pressure was high. Auscultation showed bilateral crackles. There was obvious JVD. Findings were consistent with acute pulmonary edema. [id number]-[id number] ultrasound confirmed scattered B-lines bilaterally, there was significant JVD, and IVC was distended. Heart was tachycardic but I could not get good views due to his agitation. Nevertheless, it was clear that LV contractility was poor. I did not see any pericardial effusion. stat chest x-ray was ordered. EKG shows sinus tachycardia. Furosemide 40 mg IV was ordered along with nitroglycerin sublingual x 1 followed by drip, 2 mg IVmorphine, and the patient was transferred up to the ICU. Given his renal dysfunction we will continue with furosemide IV infusion. He remains NPO for cardiology evaluation. Mr. Muller is an 79-year-old male with a PMH of HTN that was at his doctor's appointment for injections to his knees and when his vitals were checked he was sent to the emergency room. He states that his doctor told him his heart rate was in the 140s and he was not going to get his injections today he was going togo to the emergency room. Patient reports that he felt fine. He denies chest pain, shortness of breath, fever or chills, nausea or vomiting. Denies palpitations. States he has never smoked, rarely drinks alcohol. States that he exercises daily. [facility] chart review?initial EKG SVT with a rate of 141, inverted T waves to V1 and V2. Patient received diltiazem bolus and a drip was started, repeat EKG sinus rhythm with inverted T waves noted to V1 V2. Chest x-ray showed bilateral interstitial infiltrates, infectious process versus CHF. He also received 125 mics of digoxin, 40 mg furosemide, morphine 2 mg. She developed respiratory distress around 2215, SpO2 was 87% on 5 L nasal cannula with a respiratory rate of 44, he was placed on BiPAP, Ruiz was placed. Nursing reported 1200 cc urine output. CBC was unremarkable, white blood cell count 9.9, H&H 15/43.4. Coags are unremarkable. BMP with a BUN of 29, creatinine 2.62, EGFR 24, glucose 108. BNP 8857. Troponins?910.6, repeat 896.5. ER physician did note the baseline creatinine is 1.8. Review of Systems Review of Systems Review of systems: A 10 point review of systems was obtained, negative unless noted in the HPI or below. [facility] Medical History Atrial tachycardia Chronic kidney disease Lumbar spondylosis Hyperlipidemia type II Primary osteoarthritis of right knee Primary osteoarthritis of left knee Knee pain Hypertension Elevated cholesterol Surgical History H/O hernia repair Family History (Updated 04/10/24 @ 04:14 by Holly Weinberg APRN) Father 67 yrs Aortic aneurysm and dissection Mother 90 yrs History of stroke [facility] Problem: Diagnosed with Stroke Stroke Brother Diabetes Had multiple health problems Brother Parkinson disease Social History Marital Status: Smoking Status: Never smoker Substance Use Type: Alcohol (rarely) Meds Medications and Allergies Allergies No Known Allergies Allergy (Verified 04/09/24 14:28) Home Medications atorvastatin 10 mg tablet 10 mg PO DAILY 06/27/23 [History Confirmed 04/09/24] multivitamin 1 tab PO DAILY 06/27/23 [History Confirmed 04/09/24] amlodipine 10 mg tablet See Rx Instructions .Route .COMPLEX #90 tabs 12/15/23 [Rx Confirmed 04/10/24] Exam Physical Exam Vital Signs: Temp Pulse Resp BP Pulse Ox O2 Del Method O2 Flow Rate 97.8 F 82 18 144/88 H 93 L Nasal Cannula 5 04/10/24 02:00 04/10/24 02:00 04/10/24 02:00 04/10/24 02:00 04/10/24 02:00 04/10/24 02:00 04/10/24 02:00 Narrative: CONST- Appears well -developed and well nourished. Younger than stated age HEAD - Normocephalic and atraumatic EENT-Sclera nonicteric, conjunctive are non-erythemic, dry oral mucosa, pharynx clear NECK-Supple, no cervical lymphadenopathy CARDIAC-normal rate, regular rhythm, S1 & S2. PULM-diminished without wheeze or rhonchi, 5L NC, no accessory muscle use or cough noted ABD - Soft. Bowel sounds are normal. No distention. No tenderness -Ruiz catheter, clear yellow urine EXTREM-no edema BLE calves, nontender SKIN- W/D good turgor MS- MAEX4 spontaneously with equal with equal strength NEURO- A&Ox3 speech clear and tongue midline, equal facial symmetry, no focal motor deficits PSYCH-Mood, affect, and behavior appropriate Results - Hospitalist H&P Lab Results Labs: Laboratory Last Values Troponin I High Sens 815 ng/L (0-20) H* 04/10/24 02:50 Assessment & Plan Assessment/Plan (1) NSTEMI (non-ST elevated myocardial infarction): (2) CHF (congestive heart failure): (3) SVT (supraventricular tachycardia): Plan NSTEMI- Troponins- 910-->897-->815, trending down, no c/o chest pain CHF- unknown if systolic or diastolic, no edema, no hx of CHF SVT- resolved- wean diltiazem to off - Stat troponin, EKG, Coags, Anti Xa - Troponin, CBC, BMP, Mag, lipid profile in am - Echo in am - Consult cardiology - Furosemide 40mg IV daily - Enoxaparin 1mg/kg SQ now - Oxygen as needed, keep Spo2 > 90% YOJANA- current creatinine 2.62, baseline ~ 1.8, likely due to CHF - BMP in am HTN- amlodipine DVT PPx?SCDs Diet order?n.p.o. except meds CODE STATUS?full code IP vs OBS Justification Based on differential dx, clinical care plan, and risk of adverse events, if untreated, in my clinical judgement this patient requires an acute care setting as: INPATIENT because of an expectation of an over 2 midnight stay. Estimated length of stay (# of days): 3 Documented By: Holly Weinberg APRN 04/10/24410 Signed By: <Electronically signed by SUBHASH Weinberg> 04/10/24 042 <Electronically signed by Kurtis Langley MD> 04/10/24 0645 [facility] Work Phone: 1(426) 285-997402-19-[address] [place] [address] Hospitalist H&P Signed Patient: Corwin Muller MR#: [id number] : 1945 Acct:[id number] Age/Sex: 79 / M Adm Date: 5 Loc: 3T Room: [address] [place] [address] Type: ADM IN Attending Dr: Kurtis Langley MD Copies to: MD Ranjan Soto DO Paula G Smith, APRN~ HPI DATE OF EXAMINATION: 04/10/24 CHIEF COMPLAINT: fast heart rate HISTORY OF PRESENT ILLNESS: Attending note: As I walked into the room to check the patient, staff was ready to: ABT because of respiratory distress. Patient was tachypneic, agitated, in obvious respiratory distress. He was tachycardic and blood pressure was high. Auscultation showed bilateral crackles. There was obvious JVD. Findings were con sistent with acute pulmonary edema. Opgjf-ay-kuyb ultrasound confirmed scattered B-lines bilaterally, there was significant JVD, and IVC was distended. Heart was tachycardic but I could not get good views due to his agitation. Nevertheless, it was clear that LV contractility was poor. I did not see any pericardial effusion. stat chest x-ray was ordered. EKG shows sinus tachycardia. Furosemide 40 mg IV was ordered along with nitroglycerin sublingual x 1 followed by drip, 2 mg IVmorphine, and the patient was transferred up to the ICU. Given his renal dysfunction we will continue with furosemide IV infusion. He remains NPO for cardiology evaluation. Mr. Muller is an 79-year-old male with a PMH of HTN that was at his doctor's appointment for injections to his knees and when his vitals were checked he was sent to the emergency room. He states that his doctor told him his heart rate was in the 140s and he was not going to get his injections today he was going togo to the emergency room. Patient reports that he felt fine. He denies chest pain,shortness of breath, fever or chills, nausea or vomiting. Denies palpitations. States he has never smoked, rarely drinks alcohol. States that he exercises daily. [facility] chart review?initial EKG SVT with a rate of 141, inverted T waves to V1 and V2. Patient received diltiazem bolus and a drip was started, repeat EKG sinus rhythm with inverted T waves noted to V1 V2. Chest x-ray showed bilateral interstitial infiltrates, infectious process versus CHF. He also received 125 mics of digoxin, 40 mg furosemide, morphine 2 mg. She developed respiratorydistress around 2215, SpO2 was 87% on 5 L nasal cannula with a respiratory rate of 44, he was placed on BiPAP, Ruiz was placed. Nursing reported 1200 cc urine output. CBC was unremarkable, white blood cell count 9.9, H&H 15/43.4. Coags are unremarkable. BMP with a BUN of 29, creatinine 2.62, EGFR 24, glucose 108. BNP 8857. Troponins?910.6, repeat 896.5. ER physician did note the baseline creatinine is 1.8. Review of Systems Review of Systems Review of systems: A 10 point review of systems was obtained, negative unless noted in the HPI or below. [facility] Medical History Atrial tachycardia Chronic kidney disease Lumbar spondylosis Hyperlipidemia type II Primary osteoarthritis of right knee Primary osteoarthritis of left knee Knee pain Hypertension Elevated cholesterol Surgical History H/O hernia repair Family History (Updated 04/10/24 @ 04:14 by Holly Weinberg APRN) Father 67 yrs Aortic aneurysm and dissection Mother 90 yrs History of stroke [facility] Problem: Diagnosed with Stroke Stroke Brother Diabetes Had multiple health problems Brother Parkinson disease Social History Marital Status: Smoking Status: Never smoker Substance Use Type: Alcohol (rarely) Meds Medications and Allergies Allergies No Known Allergies Allergy (Verified 04/09/24 14:28) Home Medications atorvastatin 10 mg tablet 10 mg PO DAILY 06/27/23 [History Confirmed 04/09/24] multivitamin 1 tab PO DAILY 06/27/23 [History Confirmed 04/09/24] amlodipine 10 mg tablet See Rx Instructions .Route .COMPLEX #90 tabs 12/15/23 [Rx Confirmed 04/10/24] Exam Physical Exam Vital Signs: Temp Pulse Resp BP Pulse Ox O2 Del Method O2 Flow Rate 97.8 F 82 18 144/88 H 93 L Nasal Cannula 5 04/10/24 02:00 04/10/24 02:00 04/10/24 02:00 04/10/24 02:00 04/10/24 02:00 04/10/24 02:00 04/10/24 02:00 Narrative: CONST- Appears well -developed and well nourished. Younger than stated age HEAD - Normocephalic and atraumatic EENT-Sclera nonicteric, conjunctive are non-erythemic, dry oral mucosa, pharynx clear NECK-Supple, no cervical lymphadenopathy CARDIAC-normal rate, regular rhythm, S1 & S2. PULM-diminished without wheeze or rhonchi, 5L NC, no accessory muscle use or cough noted ABD - Soft. Bowel sounds are normal. No distention. No tenderness -Ruiz catheter, clear yellow urine EXTREM-no edema BLE calves, nontender SKIN- W/D good turgor MS- MAEX4 spontaneously with equal with equal strength NEURO- A&Ox3 speech clear and tongue midline, equal facial symmetry, no focal motor deficits PSYCH-Mood, affect, and behavior appropriate Results - Hospitalist H&P Lab Results Labs: Laboratory Last Values Troponin I High Sens 815 ng/L (0-20) H* 04/10/24 02:50 Assessment & Plan Assessment/Plan (1) NSTEMI (non-ST elevated myocardial infarction): (2) CHF (congestive heart failure): (3) SVT (supraventricular tachycardia): Plan NSTEMI- Troponins- 910-->897-->815, trending down, no c/o chest pain CHF- unknown if systolic or diastolic, no edema, no hx of CHF SVT- resolved- wean diltiazem to off - Stat troponin, EKG, Coags, Anti Xa - Troponin, CBC, BMP, Mag, lipid profile in am - Echo in am - Consult cardiology - Furosemide 40mg IV daily - Enoxaparin 1mg/kg SQ now - Oxygen as needed, keep Spo2 > 90% YOJANA- current creatinine 2.62, baseline ~ 1.8, likely due to CHF - BMP in am HTN- amlodipine DVT PPx?SCDs Diet order?n.p.o. except meds CODE STATUS?full code IP vs OBS Justification Based on differential dx, clinical care plan, and risk of adverse events, if untreated, in my clinical judgement this patient requires an acute care setting as: INPATIENT because of an expectation ofan over 2 midnight stay. Estimated length of stay (# of days): 3 Documented By: Holly Weinberg, [employer] FINISHER 04/10/24 0411 Signed By: 04/10/24 0422 04/10/24 0645 [facility]02-18-2025 Evaluation note* Diagnosis Onset Date Resolution Status Admit Date Atrial tachycardia acute 2024 2:27pm Elevated cholesterol acute uary 2024 2:27pm Hypertension acute March 2:27pm Chronic kidney disease deleted Fe bruary 2024 2:27pm Acute hypoxic respiratory failure acute April 10 025 1:30am Acute kidney injury superimposed on CKD acute March 1:30am Acute pulmonary edema acute Feb ruary 2024 1:30am Acute systolic CHF (congesti ve heart failure) acute April 10 025 1:30am Cardiomyopathy acute March 232024 1:30am CHF (congestive heart failure) acute April 10, 2024 1:30am CKD (chronic kidney disease) stage 3, GFR 30-59 ml/min acute 2024 1:30am HFrEF (heart failure with reduced ejection fraction) acute u chidi 2024 1:30am Hypertension acute March 1:30am NSTEMI (non-ST elevated myocardial infarction) acute April 10, 2024 1:30am Paroxysmal atrial fibrillati on with RVR acute April 10 025 1:30am SVT (supraventricular tachycardia) acute April 10 025 1:30am UTI (urinary tract infection) acute April 10, 2024 1:30am Chronic kidney disease deleted Fe bruary 2024 1:30am [facility] Work Phone: 1(488) 687-243712-22-2023 Evaluation note* Encounter Date Diagnosis Assessment Notes Treatment Notes Treatment Clinical Notes Jan, Acute pain of right knee (ICD-10 - M25.561) Rest, avoid squatting or kneeling Ice 10 minutes several times today The injection was performed under sterile technique w/o complications He is aware that the injection may make pain worse before it improves Jan, Primary hypertension (ICD-10 - I10) This patient is instructed to consume a healthy, low-fat, low-salt diet. They are also encouraged to continue exercise to achieve/maintain a normal BMI. Patient is instructed on home BP measurements: - rest for 5 minutes w/o talking- positioned w/ feet on floor and arm supported- average best 2/3 readings w/ goal < 135/85 Jan, Acute pain of left knee (ICD-10 - M25.562) Rest, avoid squatting or kneeling Ice 10 minutes several times today The injection was performed under sterile technique w/o complications He is aware that the injection may make pain worse before it improves Jan, Primary osteoarthritis of both knees (ICD-10 - M17.0) Quad exercises, ice/heat, bracing and Tylenol. Avoid squatting or kneeling [employer] Other 12-22-2023 History general Narrative - Reported* Type Description Date Medical History HTN Medical History Acute pain of right knee Medical History Acute pain of left knee Medical History Arthritis of both knees Medical History Hypertensive chronic kidney disease w stg 1-4/unsp chr kdny Medical History Arthritis of right hip Medical History Essential (primary) hypertension Medical History Neoplasm of uncertain behavior Medical History Hyperlipidemia type II Medical History Lumbar spondylosis Surgical History hernia repair Surgical History tumor removal Surgical History COLONOSCOPY 2010 Hospitalization History SEE SURGICAL [employer] Other 09-18-2023 History general Narrative - Reported* Type Description Date Medical History HTN Medical History Acute pain of right knee Medical History Acute pain of left knee Medical History Arthritis of both knees Medical History Hypertensive chronic kidney disease w stg 1-4/unsp chr kdny Medical History Arthritis of right hip Medical History Essential (primary) hypertension Medical History Neoplasm of uncertain behavior Medical History Hyperlipidemia type II Medical History Lumbar spondylosis Surgical History hernia repair Surgical History tumor removal Surgical History COLONOSCOPY 2010 Hospitalization History SEE SURGICAL [employer] Other 08-23-2023 History general Narrative - Reported* Type Description Date Medical History HTN Medical History Acute pain of right knee Medical History Acute pain of left knee Medical History Arthritis of both knees Medical History Hypertensive chronic kidney disease w stg 1-4/unsp chr kdny Medical History Arthritis of right hip Medical History Essential (primary) hypertension Medical History Neoplasm of uncertain behavior Medical History Hyperlipidemia type II Medical History Lumbar spondylosis Surgical History hernia repair Surgical History tumor removal Surgical History COLONOSCOPY 2010 Hospitalization History SEE SURGICAL [employer] Other 08-15-2023 History general Narrative - Reported* Type Description Date Medical History HTN Medical History Acute pain of right knee Medical History Acute pain of left knee Medical History Arthritis of both knees Medical History Hypertensive chronic kidney disease w stg 1-4/unsp chr brigido Medical History Arthritis of right hip Medical History Essential (primary) hypertension Medical History Neoplasm of uncertain behavior Medical History Hyperlipidemia type II Medical History Lumbar spondylosis Surgical History hernia repair Surgical History tumor removal Surgical History COLONOSCOPY 2010 Hospitalization History SEE SURGICAL HX [employer] Other 08-14-2023 Evaluation note* Encounter Date Diagnosis Assessment Notes Treatment Notes Treatment Clinical Notes Sep, Impacted cerumen, bilateral (ICD-10 - H61.23) Successfully removed cerumen from B/L EAC. Mild dizziness post irrigation, which cleared within minutes. Patient ambulated out of the office w/o assistance Sep, Primary hypertension (ICD-10 - I10) This patient is instructed to consume a healthy, low-fat, low-salt diet. They are also encouraged to continue exercise to achieve/maintain a normal BMI Patient is instructed on home BP measurements: - rest for 5 minutes w/o talking- positioned w/ feet on floor and arm supported- average best 2/3 readings w/ goal < 135-85 [employer] Other 05-30-2023 Evaluation note* Encounter Date Diagnosis Assessment Notes Treatment Notes Treatment Clinical Notes June, Acute pain of right knee (ICD-10 - M25.561) Quad exercises, ice/heat and Tylenol. June, Acute pain of left knee (ICD-10 - M25.562) Quad exercises, ice/heat and Tylenol. June, Primary osteoarthritis of both knees (ICD-10 - M17.0) IA injection B/L knees w/o complications. He is aware that his pain may worsen before it gets better. June, Plantar fasciitis, bilateral (ICD-10 - M72.2) Exercises, stretching and icing. Refer to Podiatry if fails to improve June, Bilateral impacted cerumen (ICD-10 - H61.23) Debrox q HS for week. No improvement, irrigate [employer] Other Evaluation noteNo InformationNort [employer] Other Evaluation note* Diagnosis Onset Date Resolution Status Elevated cholesterol acute Hypertension acute Knee pain acute Primary osteoarthritis of left knee acute Primary osteoarthritis of right knee acute [facility] Work Phone: Evaluation note* Diagnosis Onset Date Resolution Status Admit Date Elevated cholesterol acute Febr uary 2024 2:27pm Hypertension acute March 2:27pm Knee pain acute April 09, 2024 2:27pm Primary osteoarthritis of le ft knee acute April 09, 2 025 2:27pm Primary osteoarthritis of ri ght knee acute April 09, 2 025 2:27pm [facility] Work Phone: History general Narrative - Reported* Type Description Date Medical History HTN Medical History Acute pain of right knee Medical History Acute pain of left knee Medical History Arthritis of both knees Medical History Hypertensive chronic kidney disease w stg 1-4/unsp chr kdny Medical History Arthritis of right hip Medical History Essential (primary) hypertension Medical History Neoplasm of uncertain behavior Medical History Hyperlipidemia type II Medical History Lumbar spondylosis Surgical History hernia repair Surgical History tumor removal Surgical History COLONOSCOPY 2010 Hospitalization History SEE SURGICAL HX [employer] Other Summary Purpose Family History No Family History Records Found Relationship Condition Age at Onset Recorded Date/T cornelius father Unknown Not Specified Unknown History of stroke Unknown Relationship Condition Age at Onset Recorded Date/T cornelius father Unknown mother Unknown History of stroke Unknown Relationship Condition Age at Onset Recorded Date/T cornelius father Unknown Aortic aneurysm and dissection Unknown mother Unknown History of stroke Unknown Cerebrovascular accident (CVA) Unknown brother Diabetes mellitus Unknown brother Parkinson's disease Unknown Advance Directives No Advanced Directives Records Found Advance Directive Response Recorded Date/ Time Advance Directives No June 27, 2023 10:47am Advance Directive Response Recorded Date/ Time Advance Directives No October 1:22pm Advance Directive Response Recorded Date/ Time Advance Directives No October 12:22pm Chief Complaint and Reason for Visit Chief Complaint knee injections Reason for Visit Elevated cholesterol Hypertension Knee pain Primary osteoarthritis of left knee Primary osteoarthritis of right knee Chief Complaint Cortisone Shots in K nees Reason for Visit Elevated cholesterol Hypertension Knee pain Primary osteoarthritis of left knee Primary osteoarthritis of right knee Chief Complaint Admit Date bilateral knee cortisone shots April 09, 2024 2:27pm Reason for Visit Admit Date Elevated cholesterol April 09, 2024 2:27pm Hypertension April 09, 2024 2:27pm Knee pain April 09, 2024 2:27pm Primary osteoarthritis of left knee Febr uary 2024 2:27pm Primary osteoarthritis of right knee Feb ruary 2024 2:27pm Chief Complaint Admit Date bilateral knee cortisone shots April 09, 2024 2:27pm A-fib RVR, Elevated Troponin April 102024 1:30am A-fib RVR, Elevated Troponin April 122024 8:55am A-fib RVR, Elevated Troponin April 132024 1:19pm A-fib RVR, Elevated Troponin April 162024 2:01pm Reason for Visit Admit Date Atrial tachycardia April 09, 2024 2:27pm Elevated cholesterol April 09, 2024 2:27pm Hypertension April 09, 2024 2:27pm Chronic kidney disease April 09 2:27pm Acute hypoxic respiratory failure Februa 2024 1:30am Acute kidney injury superimposed on CKD April 10, 2024 1:30am Acute pulmonary edema April 10 1:30am Acute systolic CHF (congestive heart to lure) April 10, 2024 1:30am Cardiomyopathy April 10, 2024 1:30am CHF (congestive heart failure) April 10, 2024 1:30am CKD (chronic kidney disease) stage 3, GF R 30-59 ml/min April 10, 2024 1:30am HFrEF (heart failure with reduced ejecti on fraction) April 10, 2024 1:30am Hypertension April 10, 2024 1:30am NSTEMI (non-ST elevated myocardial infar ction) April 10, 2024 1:30am Paroxysmal atrial fibrillation with RVR April 10, 2024 1:30am SVT (supraventricular tachycardia) Febru chidi 2024 1:30am UTI (urinary tract infection) March 232024 1:30am Chronic kidney disease April 10 1:30am Additional Source Comments (unrecognized sect ion and content) No Status Records FoundNo Status Records Found INFORMATION SOURCE (unrecogn ized section and content) DATE CREATED AUTHOR 12/13/2021 [facility] DATE CREATED AUTHOR AUTHOR'S ORGANIZ ATION 04/22/2024 [facility] REASON FOR VISIT (unrecogniz ed section and content) knee injections, cerumen rem ovalIRRIGATION OF EARSHandicap PlacardNo InformationCORTISON SHOT Care Teams (unrecognized sec tion and content) Team Status: Active Member Role Status Dates Ranjan Lomas DO Primary Care Provider Active Team Status: Inactive Member Role Status Dates Ranjan Lomas DO Primary Care Provide r, Attending Provider Active Start: June 27, 2023 End: June 27, 2023 Team Status: Inactive Member Role Status Dates Ranjan Lomas DO Primary Care Provide r, Attending Provider Active Start: November 14, 2023 End: November 14, 2023 Team Status: Inactive Member Role Status Dates Ranjan Lomas DO Primary Care Provide r, Attending Provider Active Start: April 09, 2024 End: April 09, 2024 Team Status: Inactive Member Role Status Dates Ranjan Lomas DO Primary Care Provider Active Start: April 10, 2024 End: April 18, 2024 Kurtis Langley MD Admit Provider Active Start: April 10, 2024 End: April 18, 2024 Ai Orantes RN Other Provider Active Star t: April 10, 2024 End: April 18, 2024 Dequan Kirkpatrick DO Other Provider Active Start : April 10, 2024 End: April 18, 2024 Keron Gutierres MD Other Provider Active Start: April 10, 2024 End: April 18, 2024 Gurjit Villagran MD Other Provider Active Start: April 10, 2024 End: April 18, 2024 Mely Ken MD Other Provider Active St art: April 10, 2024 End: April 18, 2024 Yvan Mckeon MD Other Provider Active Start: April 10, 2024 End: April 18, 2024 Hailey Weinberg APRN Other Provider Active Start : April 10, 2024 End: April 18, 2024 Leonie Gaines MD Other Provider Active Start: 2024 End: April 18, 2024 Lexi Archuleta MD Other Provider Active Start: April 10, 2024 End: April 18, 2024 Bret Castañeda MD Other Provider Active Start: 2024 End: April 18, 2024 Susana Velarde , [employer] Other Provider Active Sta rt: April 10, 2024 End: April 18, 2024 Felicia Aguilar MD Other Provider Active Start: 2024 End: April 18, 2024 JEFFREY Gómez Other Provider Active Start: April 10, 2024 End: April 18, 2024 Tobi Monroy MD Other Provider Active Start: 2024 End: April 18, 2024 Noel Lilly MD Other Provider Active Start: 2024 End: April 18, 2024 Gin Conrad MD Other Provider Active Start: 2024 End: April 18, 2024 Luis Patel MD Other Provider Active Start: 2024 End: April 18, 2024 Cathleen Kumari APRN Other Provider Active St art: April 10, 2024 End: April 18, 2024 Colt Curran Jr, DO Other Provider Active S tart: April 10, 2024 End: April 18, 2024 David Inman MD Other Provider Active Start: April 10, 2024 End: April 18, 2024 Jn Yanes MD Attending Provider Active Star t: April 10, 2024 End: April 18, 2024 Team Status: Active Member Role Status Dates Ranjan Lomas DO Primary Care Provider Active Start: April 12, 2024 Kurtis Langley MD Admit Provider Active Start: April 12, 2024 Jersey Bess MD Other Provider Active Sta rt: April 12, 2024 Ai Orantes RN Other Provider Active Star t: April 12, 2024 Dequan Kirkpatrick DO Other Provider Active Start : April 12, 2024 Keron Gutierres MD Other Provider Active Start: April 12, 2024 Gurjit Villagran MD Other Provider Active Start: March Mely Ken MD Other Provider Active St art: April 12, 2024 Yvan Mckeon MD Other Provider Active Start: April 12, 2024 Hailey Weinberg APRN Other Provider Active Start : April 12, 2024 Leonie Gaines MD Other Provider Active Start: eb2024 Lexi Archuleta MD Other Provider Active Start: April 12, 2024 Bret Castañeda MD Other Provider Active Start: eb2024 Susana Velarde [employer] Other Provider Active Sta rt: April 12, 2024 Felicia Aguilar MD Other Provider Active Start: 2024 CHRIST GómezC Other Provider Active Start: April 12, 2024 Tobi Monroy MD Attending Provider, Other Provider Active Start: April 12, 2024 Noel Lilly MD Other Provider Active Start: 2024 Team Status: Active Member Role Status Yohana Lomas DO Primary Care Provider Active Start: April 13, 2024 Kurtis Langley MD Admit Provider Active Start: April 13, 2024 Jersey Bess MD Other Provider Active Sta rt: April 13, 2024 Ai Orantes RN Other Provider Active Star t: April 13, 2024 Dequan Kirkpatrick DO Other Provider Active Start : April 13, 2024 Keron Gutierres MD Other Provider Active Start: April 13, 2024 Gurjit Villagran MD Other Provider Active Start: April 13, 2024 Mely Ken MD Other Provider Active St art: April 13, 2024 Yvan Mckeon MD Other Provider Active Start: April 13, 2024 Hailey Weinberg APRN Other Provider Active Start : April 13, 2024 Leonie Gaines MD Other Provider Active Start: ebruary 2024 Lexi Archuleta MD Other Provider Active Start: April 13, 2024 Bret Castañeda MD Other Provider Active Start: ebruary 2024 KAREL Rivas-BC Other Provider Active Sta rt: April 13, 2024 Felicia Aguilar MD Other Provider Active Start: ebruary 2024 CHRIST GómezC Other Provider Active Start: April 13, 2024 Tobi Monroy MD Other Provider Active Start: 2024 Noel Lilly MD Other Provider Active Start: ebruary 2024 Bubba Jessica MD Attending Provider Activ e Start: April 13, 2024 Team Status: Active Member Role Status Dates Ranjan Lomas DO Primary Care Provider Active Start: April 16, 2024 Kurtis Langley MD Admit Provider Active Start: April 16, 2024 Jersey Bess MD Other Provider Active Sta rt: April 16, 2024 Ai Orantes RN Other Provider Active Star t: April 16, 2024 Dequan Kirkpatrick DO Other Provider Active Start : April 16, 2024 Keron Gutierres MD Other Provider Active Start: April 16, 2024 Gurjit Villagran MD Other Provider Active Start: March Mely Ken MD Other Provider Active St art: April 16, 2024 Yvan Mckeon MD Other Provider Active Start: April 16, 2024 Hailey Weinberg APRN Other Provider Active Start : April 16, 2024 Leonie Gaines MD Other Provider Active Start: ebruary 2024 Lexi Archuleta MD Other Provider Active Start: April 16, 2024 Bret Castañeda MD Other Provider Active Start: ebruary 2024 KAREL Rivas-MAX Other Provider Active Sta rt: April 16, 2024 Felicia Aguilar MD Other Provider Active Start: ebruary 2024 JEFFREY Gómez Other Provider Active Start: April 16, 2024 Tobi Monroy MD Other Provider Active Start: 2024 Noel Lilly MD Other Provider Active Start: F ebruary 2024 Gin Conrad MD Other Provider Active Start: Fe bruary 2024 Luis Patel MD Attending Provider, Other Provider Active Start: April 16, 2024 Cathleen Kumari APRN Other Provider Active St art: April 16, 2024 Colt Curran Jr, DO Other Provider Active S tart: April 16, 2024 David Inman MD Other Provider Active Start: April 16, 2024 Goals (unrecognized section and content) Goals may be documented in a n alternate section FOR RECORDS PERTAINING TO PATIENTS WHO ARE OR HAVE BEEN ENROLLED IN A CHEMICAL DEPENDENCY/SUBSTANCEABUSE PROGRAM, SOME INFORMATION MAY BE OMITTED. This clinical summary was aggregated from multiple sources. Caution should be exercised in using it in the provision of clinical care. This summary normalizes information from multiple sources, and as a consequence, information in this document may materially change the coding, format and clinical context of patient data. In addition, data may be omitted in some cases. CLINICAL DECISIONS SHOULD BE BASED ON THE PRIMARY CLINICAL RECORDS. [employer] provides no warranty or guarantee of the accuracy or completeness of information in this document.
[2024-04-22 10:43] LABS: Anion Gap 13.5; BUN Creatinine Ratio 11.7; Calcium 9.4 mg/dL (8.5-10.1); Carbon Dioxide 31.3 mmol/L (21.0-32.0); Chloride 102 mmol/L (98-107); Estimated GFR (African America 21 (>=60 mL/min/1.73m^2); Estimated GFR (Non-African Ame 17 (>=60 mL/min/1.73m^2); Glucose 125 mg/dL (74-106); Potassium 4.8 mmol/L (3.5-5.1); Sodium 142 mmol/L (136-145)
== END 2024-04-22 10:07 | disposition home or self-care (01) ==
PROVIDERS: PCP Internal Medicine
DX: I50.20 Unspecified systolic (congestive) heart failure (principal); I48.0 Paroxysmal atrial fibrillation; N18.30 Chronic kidney disease, stage 3 unspecified
CPT/HCPCS: 36415; 80048

== ENCOUNTER 2024-05-07 10:10 | Outpatient (OUT) | payer MEDICARE, OTHER, SELFPAY ==
--- OUTSIDE RECORDS SUMMARY | 2024-05-07 10:30 | XMS_ITS | CCD ---
Author Organization [facility] Providers Care Video Game Producer Name Role Phone NATHALY, DR GANDHI Admitting Unavailable NATHALY, DR GANDHI Attending Unavailable NATHALY, DR GANDHI Primary Care Unavailable NATHALY, DR GANDHI Consulting Unavailable Ranjan Lomas Unavailable Ranjan Lomas DO Primary Care Provider Shivam ANGUIANO, Kurtis Admit Provider Ai Orantes RN Other Provider Unavailable Dequan Kirkpatrick DO Other Provider Bhavik ANGUIANO, Keron Other Provider [phone] Gurjit Villagran MD Other Provider Mely Ken MD Other Provider [phone] Yvan Mckeon MD Other Provider Hailey Weinberg APRN Other Provider Leonie Gaines MD Other Provider Geremias ANGUIANO, Lexi Leach Other Provider Bret Castañeda MD Other Provider Syd [facility]-, Susana Good Other Provider [phone] Felicia Agiular MD Other Provider David [employer], Tavia Other Provider Unavailable Tobi Monroy MD Other Provider Noel Lilly MD Other Provider Gin Conrad MD Other Provider Luis Patel MD Other Provider Cathleen Kumari APRN Other Provider Colt Curran DO Other Provider David Inman MD Other Provider Jn Yanes MD Attending Provider [phone] Ranjan Lomas DO Primary Care Provider Fabricio FOX, Echo Unavailable Unavailable Jn Yanes Attending Unavailable Ranjan Lomas Primary [...] (Original) amiodarone hydrochloride 200 mg oral tablet (5 sources) Antiarrhythmic Start: 04-29-2024 End: 04-29-2025 take 0.5 tablet by mouth once daily amiodarone (Pacerone) 200 mg tablet Indications: Persistent atrial fibrillation (Multi) Take 0.5 tablets (100 mg) by mouth once daily. 45 tablet 3 04/29/2024 04/29/2025 Active Start: 04-16-2024 take 1 tablet by abdirizak th three times daily, then take 1 tablet by mouth once daily Amiodarone 200 mg tablet Active 200 MG PO Three times daily 42 April 16, 2024 12:00am Amiodarone 200 mg TID for 1 week, then decrease to 200 mg daily. End: 04-29-2024 take 1 tablet by mouth once daily amiodarone (Pacerone) 200 mg tablet Take 1 tablet (200 mg) by mouth once daily. 200mg 3x a day for 1 week then 200mg daily 04/29/2024 Discontinued (Reorder) apixaban 2.5 mg oral tablet (4 sources) Factor Xa Inhibitor Start: 04-16-2024 take 1 tablet by mouth twice daily Apixaban (Eliquis) 2.5 mg Tablet Active 2.5 MG PO Twice daily 60 April 16, 2024 12:00am aspirin 81 mg delayed release oral tablet (4 sources) Platelet Aggregation Inhibitor, Nonsteroidal Anti-inflammatory Drug Start: 04-16-2024 take 1 tablet by mouth once daily Aspirin 81 mg Tablet,Delayed Release (Dr/Ec) Active 81 MG PO Daily 30 April 16, 2024 12:00am atorvastatin 10 mg oral tablet (14 sources) HMG-CoA Reductase Inhibitor Start: 06-27-2023 End: 04-23-2024 take 1 tablet by mouth once daily in the evening Atorvastatin 10 mg tablet Active 10 MG PO Every evening 90 90 April 23, 2024 12:00am furosemide 40 mg oral tablet (4 sources) Loop Diuretic Start: 04-18-2024 take 1 tablet by mouth twice daily Furosemide 40 mg Tablet Active 40 MG PO BID@0800,1600 60 April 18, 2024 12:00am To begin therapy on 04/19/24 hydrALAZINE hydrochloride 25 mg oral tablet (4 sources) Arteriolar Vasodilator Start: 04-18-2024 take 1 tablet by mouth twice daily Hydralazine 25 mg Tablet Active 25 MG PO Twice daily 60 April 18, 2024 12:00am 24 hr isosorbide mononitrate 30 mg extended release oral tablet (4 sources) Nitrate Vasodilator Start: 04-16-2024 take 1 tablet by mouth once daily, then take 1 tablet by mouth every twenty-four hours Isosorbide Mononitrate 30 mg Tablet Extended Release 24 Hr Active 30 MG PO Daily at 0600 30 April 16, 2024 12:00am melatonin 5 mg oral tablet (4 sources) Start: 04-18-2024 take 1 tablet by mouth once daily at bedtime as needed for sleep Melatonin 5 mg Tablet Active 5 MG PO Daily at bedtime as needed for sleep April 18, 2024 12:00am 24 hr metoprolol succinate 50 mg extended release oral tablet (5 sources) beta-Adrenergic Susie Start: 04-16-2024 End: 04-23-2024 take 1 tablet by mouth twice daily Metoprolol Succinate 50 mg tablet extended release 24 hr Active 50 MG PO Twice daily April 23, 2024 3:27pm Multivitamin Adult (5 sources) Multivitamin Ford lt Active Multivitamin preparation (2 sources) Start: 06-27-2023 take 1 tablet by mouth once daily Multivitamin Active 1 TAB PO Daily June 27, 2023 12:00am Multivitamin tablet (4 sources) Start: 06-27-2023 take 1 tablet by mouth once daily Multivitamin tablet Active 1 TAB PO Daily June 26, 2023 11:00pm multivitamin tablet (1 source) take 1 tablet by mouth once daily multivitamin tablet Take 1 tablet by mouth once daily. Active microencapsulated potassium chloride 20 meq extended release oral tablet (4 sources) Start: 04-18-2024 Potassium Chloride (Klor-Con M20) 20 mEq Tablet,Er Particles/Crystals Active 20 MEQ PO Daily April 18, 2024 12:00am To start 04/19/24 with lasix spironolactone 25 mg oral tablet (4 sources) Aldosterone Antagonist Start: 04-16-2024 Spironolactone 25 mg Tablet Active 12.5 MG PO Daily April 16, 2024 12:00am take 0.5 tablet by mouth once da keely spironolactone (Aldactone) 25 mg tablet Take 0.5 tablets (12.5 mg) by mouth once daily. Active Completed/Discontinued Medications Medication Drug Class(es) Dates Sig (Normalized) Sig (Original) amLODIPine 10 mg oral tablet (20 sources) Dihydropyridine Calcium Channel Susie Start: 11-05-2023 End: 04-18-2024 take 1 tablet by mouth once daily Amlodipine 10 mg tablet Discontinued 0 .ROUTE .COMPLEX 90 December 15, 2023 3:25pm April 18, 2024 [...] Jan, 3 mL Start: 07-19-2022 Lidocaine 30 M 2022 30 mg triamcinolone acetonide 10 mg/ml injectable suspension (7 sources) Corticosteroid Start: 02-10-2023 Kenalog Jan 1 mL Start: 07-19-2022 Kenalog-40 June, 40 mg Problems Active Problems Problem Classification Problem Date Documented Date Episodic/Chronic Acute and unspecified renal failure (7 sources) Acute renal failure syndrome; Translations: [Acute kidney failure, unspecified] Onset: 5 04-12-2024 Episodic Acute myocardial infarction (7 sources) Myocardial infarction; Translations: [Non-ST elevation (NSTEMI) myocardial infarction] Onset: 5 04-10-2024 Chronic Cardiac dysrhythmias (20 sources) Atrial tachycardia; Translations: [Atrial tachycardia] Onset: 5 04-09-2024 Chronic Cardiac dysrhythmias (3 sources) Tachycardia; Translations: [Tachycardia, unspecified] Onset: 5 Resolved: 5 04-29-2024 Episodic Chronic kidney disease (20 sources) Chronic kidney disease, stage 4 (severe); Translations: [Chronic kidney disease stage 3] Onset: 2 04-12-2024 Chronic Comment on above: Renal US: no renal m ass, stones or obstruction - 03/2024 Chronic kidney disease (2 sources) Chronic kidney disease; Translations: [Chronic kidney disease, stage 3b] Onset: 5 Congestive heart failure; nonhypertensive (20 sources) Heart failure with reduced ejection fraction; Translations: [Unspecified systolic (congestive) heart failure] Onset: 5 04-11-2024 Chronic Coronary atherosclerosis and other heart disease (9 sources) Ischemic myocardial dysfunction; Translations: [Ischemic cardiomyopathy] Onset: 5 04-21-2024 Chronic Diseases of mouth; excluding dental (3 sources) Recurrent aphthous stomatitis; Translations: [Recurrent oral aphthae] Episodic Disorders of lipid metabolism (20 sources) Pure hypercholesterolemia; Translations: [Familial hypercholesterolemia] Onset: 5 06-25-2023 Chronic Esophageal disorders (3 sources) Esophageal disorders; Translations: [Gastro-esophageal reflux disease with esophagitis, without bleeding] Onset: 7 Essential hypertension (20 sources) Essential hypertension; Translations: [Essential (primary) hypertension] Onset: 5 Chronic Hyperplasia of prostate (3 sources) Lower urinary tract symptoms due to benign prostatic hypertrophy; Translations: [Benign prostatic hyperplasia with lower urinary tract symptoms] Chronic Hypertension with complications and secondary hypertension (11 sources) Hypertensive chronic kidney disease with stage 1 through stage 4 chronic kidney disease, or unspecified chronic kidney disease; 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] Onset: 2 Chronic Neoplasms of unspecified nature or uncertain behavior (11 sources) Neoplasm of uncertain behavior, unspecified; Translations: [Neoplasm of uncertain behavior] Onset: 7 Episodic Osteoarthritis (20 sources) Arthritis of right hip; Translations: [Unilateral primary osteoarthritis, right hip] Onset: 5 Chronic Other aftercare (4 sources) Taking high risk medication; Translations: [Other residential (current) drug therapy] Onset: 5 04-29-2024 Episodic Other aftercare (1 source) Long-term current use of anticoagulant; 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] Onset: 5 04-29-2024 Episodic Other circulatory disease (3 sources) History of cerebrovascular accident without residual deficits; Translations: [Personal history of transient ischemic attack (TIA), and cerebral infarction without residual deficits] Episodic Other connective tissue disease (5 sources) Bilateral plantar fasciitis; Translations: [Plantar fascial fibromatosis] Episodic Other connective tissue disease (1 source) Plantar fascial fibromatosis Episodic Other diseases of kidney and ureters (1 source) Secondary hyperparathyroidism; Translations: [Secondary hyperparathyroidism of renal origin] 04-23-2024 Chronic Other diseases of kidney and ureters (1 source) Secondary hyperparathyroidism of renal origin; Translations: [Secondary hyperparathyroidism (of renal origin)] 04-23-2024 Chronic Other ear and sense organ disorders (15 sources) Impacted cerumen; Translations: [Impacted cerumen, bilateral] Resolved: 2 Episodic Other ear and sense organ disorders (2 sources) Impacted cerumen, bilateral Episodic Other ear and sense organ disorders (3 sources) Otalgia; Translations: [Otalgia, left ear] Episodic Other lower respiratory disease (3 sources) Acute pulmonary edema; Translations: [Acute pulmonary edema] 04-11-2024 Episodic Other lower respiratory disease (4 sources) Acute pulmonary edema; Translations: [Acute edema of lung, unspecified] Onset: 5 04-18-2024 Episodic Other non-traumatic joint disorders (16 sources) Arthralgia of the lower leg; Translations: [Pain in right knee] Episodic Other non-traumatic joint disorders (2 sources) Pain in right knee Episodic Other non-traumatic joint disorders (2 sources) Pain in left knee Episodic Other non-traumatic joint disorders (3 sources) Pain in right hip joint; Translations: [Pain in right hip] Episodic Other non-traumatic joint disorders (10 sources) Pain in unspecified knee; Translations: [Knee pain] Onset: 5 06-25-2023 Episodic Other nutritional; endocrine; and metabolic disorders (3 sources) Overweight; Translations: [Overweight] Episodic Other nutritional; endocrine; and metabolic disorders (2 sources) Overweight in adulthood with body mass index of 25 or more but less than 30; Translations: [Body mass index (BMI) 27.0-27.9, adult] Onset: 5 04-29-2024 Episodic Other screening for suspected conditions (not mental disorders or infectious disease) (4 sources) Encounter for screening for malignant neoplasm of prostate; Translations: [Cardiovascular stress test abnormal] Onset: 2 04-29-2024 Episodic Other upper respiratory disease (3 sources) Seasonal allergic rhinitis; Translations: [Other seasonal allergic rhinitis] Onset: 7 Chronic Marely-; endo-; and myocarditis; cardiomyopathy (except that caused by tuberculosis or sexually transmitted disease) (5 sources) Cardiomyopathy; Translations: [Cardiomyopathy, unspecified] Onset: 5 02-20-2025 Chronic Residual codes; unclassified (3 sources) Tobacco user; Translations: [Tobacco use] Episodic Respiratory failure; insufficiency; arrest (adult) (7 sources) Acute respiratory failure; Translations: [Acute respiratory failure with hypoxia] Onset: 5 04-11-2024 Episodic Spondylosis; intervertebral disc disorders; other back problems (8 sources) Lumbar spondylosis; Translations: [Spondylosis without myelopathy or radiculopathy, lumbar region] Chronic Sprains and strains (6 sources) Late effect of sprain AND/OR strain without tendon injury; Translations: [Strain of left quadriceps muscle, fascia and tendon, sequela] Episodic Unclassified (3 sources) A [facility] screening has identified you as FRAIL or [...] Four Ways to Beat the Frailty Risk [email or web address] 04-16-2024 Unclassified (1 source) Supraventricular tachycardia, unspecified; Translations: [Supraventricular tachycardia, unspecified] Onset: 5 Urinary tract infections (7 sources) Urinary tract infectious disease; Translations: [Urinary tract infection, site not specified] Onset: 5 04-14-2024 Episodic Past or Other Problems Problem [...] Translations: [Acute pharyngitis, unspecified] Onset: 04-29-2013 Episodic Unclassified (1 source) Onset: 04-29-2024 04-29-2024 Results Test Name Value Interpretation Reference Range Facility ECG 12 [place] 04-29-2024 Mild sinus bradycardia CP [facility] Work Phone: Estimated glomerular filtrat ion rate (GFR) non- Americanon 04-22-2024 GFR/1.73 sq M.predicted among non-blacks MDRD (S/P/Bld) [Vol rate/Area] Estimated glomerular filtration rate (GFR) non- Low >=60 mL/min/1.7 3m [address] [facility] Laboratory - Chemistry and C hemistry - challengeon 04-22-2024 Calcium [Mass/Vol] 9.4 mg/dL 8.5-10.1 [facility] Chloride [Moles/Vol] 102 mmol/L 98-107 [facility] CO2 [Moles/Vol] 31.3 mmol/L 21.0-32.0 [facility] Creatinine [Mass/Vol] 3.51 mg/dL High 0.70-1.30 [facility] GFR/1.73 sq M.predicted MDRD (S/P/Bld) [Vol rate/Area] 21 mL/min/{1.73_m2} Low >=60 mL/min/1.7 [address]m [address] [facility] Glucose [Mass/Vol] 125 mg/dL High 74-106 [facility] Potassium [Moles/Vol] 4.8 mmol/L 3.5-5.1 [facility] Sodium [Moles/Vol] 142 mmol/L 136-145 [facility] Urea nitrogen [Mass/Vol] 41.0 mg/dL High 7.0-18.[address] [facility] Urea nitrogen/Creatinine [Mass ratio] 11.7 mg/mg [facility] Serum or plasma anion gap de terminationon 04-22-2024 Anion gap [Moles/Vol] Serum or plasma an ion gap determination [facility] Albumin [Mass/volume] in Ser um or Plasma by Bromocresol green (BCG) dye binding methoOrdered By: Felicia Aguilar on 04-18-2024 Albumin BCG dye [Mass/Vol] Albumin [Mass/volume] in Serum or Plasma by Bromocresol green (BCG) dye binding metho 3.5-5.[address] [facility] Calcium [Mass/volume] in Ser um or PlasmaOrdered By: Felicia Aguilar on 04-18-2024 Calcium [Mass/Vol] Calcium [Mass/volume ] in Serum or Plasma 8.6-10.[address] [facility] Carbon dioxide, total [Moles /volume] in Serum or PlasmaOrdered By: Felicia Aguilar on 04-18-2024 CO2 [Moles/Vol] Carbon dioxide, tota l [Moles/volume] in Serum or Plasma 21.0-31.[address] [facility] Chloride [Moles/volume] in S srikanth or PlasmaOrdered By: Felicia Aguilar on 04-18-2024 Chloride [Moles/Vol] Chloride [Moles/vol ume] in Serum or Plasma 98-[address] [facility] Creatinine [Mass/volume] in Serum or PlasmaOrdered By: Felicia Aguilar on 04-18-2024 Creatinine [Mass/Vol] Creatinine [Mass/v olume] in Serum or Plasma High 0.70-1.[address] [facility] Creatinine [Mass/volume] in UrineOrdered By: Felicia Aguilar on 04-18-2024 Creatinine (U) [Mass/Vol] Creatinine [Mass/volume] in Urine [facility] Comment on above: No reference range e stablished Creatinine, Urine (Random)on 04-18-2024 Creatinine, Urine (Random) 84.00 mg/dL Normal [facility] Comment on above: Result Comment: No r eference range established Performed By: #### U NA, UCREA #### [address] Glucose [Mass/volume] in Ser um or PlasmaOrdered By: Felicia Aguilar on 04-18-2024 Glucose [Mass/Vol] Glucose [Mass/volume ] in Serum or Plasma High 70-[address] [facility] Comment on above: ADA recommended refe rence rangeRandom Glucose Reference Range is dependent on time and content of last meal. Glucose of more than 200 mg/dL in a nonstressed, ambulatory subject supports the diagnosis of Diabetes Mellitus. No Panel InformationOrdered By: Felicia Aguilar on 04-18-2024 Estimated GFR (CKD-EPI) 19.726 mL/Min [facility] Creatinine Clearance (Chem 26.[address] [facility] Phosphate [Mass/volume] in S srikanth or PlasmaOrdered By: Felicia Aguilar on 04-18-2024 Phosphate [Mass/Vol] Phosphate [Mass/vol ume] in Serum or Plasma 2.5-4.[address] [facility] Potassium [Moles/volume] in Serum or PlasmaOrdered By: Felicia Aguilar on 04-18-2024 Potassium [Moles/Vol] Potassium [Moles/v olume] in Serum or Plasma 3.5-5.[address] [facility] Comment on above: Hemolysis is present at a level that could interfere with the result.Contact lab if redraw is required Renal Function Panelon 04-18 Albumin [Mass/Vol] 3.8 g/dL Normal 3.5-5.7 [facility] Comment on above: Performed By: #### C J LUIS BUCHANANPLUS #### [facility] [address] Anion gap [Moles/Vol] 12.6 mmol/L Normal 6.0-15.0 [facility] Comment on above: Performed By: #### C J LUIS BUCHANANPLUS #### [facility] [address] [place] [address] [place] Calcium [Mass/Vol] 9.3 mg/dL Normal 8.6-10.3 [facility] Comment on above: Performed By: #### C J LUSI BUCHANANPLUS #### [facility] [address] [place] [address] [place] Chloride [Moles/Vol] 102 mmol/L Normal 98-107 [facility] Comment on above: Performed By: #### C UU, ADDONUAPLUS #### [address] CO2 [Moles/Vol] 24.1 mmol/L Normal 21.0-31.0 [facility] Comment on above: Performed By: #### C UU, ADDONUAPLUS #### [address] Creatinine [Mass/Vol] 3.08 mg/dL High 0.70-1.30 [facility] Comment on above: Performed By: #### C UU, ADDONUAPLUS #### [address] Creatinine Clr Calc Pharmacy 26.05 Normal [facility] Comment on above: Result Comment: PERF ORMED BY: [place] [address] PATHOLOGIST SAMPLE PULLER RADHA MANNING M.D. Performed By: #### C UU, ADDONUAPLUS #### [address] Estimated GFR 19.726 mL/Min Normal [facility] Comment on above: Performed By: #### C UU, ADDONUAPLUS #### [address] Glucose [Mass/Vol] 141 mg/dL High 70-100 [facility] Comment on above: Result Comment: [place] Glucose Reference Range is dependent on time and content of last meal. Glucose of more than 200 mg/dL in a nonstressed, ambulatory subject supports the diagnosis of Diabetes Mellitus. ADA recommended reference range Performed By: #### C UU, ADDONUAPLUS #### [address] Phosphate [Mass/Vol] 3.2 mg/dL Normal 2.5-4.5 [facility] Comment on above: Performed By: #### C UU, ADDONUAPLUS #### [facility] [address] Potassium [Moles/Vol] 4.7 mmol/L Normal 3.5-5.1 [facility] Comment on above: Result Comment: Hemo lysis is present at a level that could interfere with the result. Contact lab if redraw is required Performed By: #### C UU, ADDONUAPLUS #### [facility] [address] [place] [address] Sodium [Moles/Vol] 134 mmol/L Low 136-145 [facility] Comment on above: Performed By: #### C UU, ADDONUAPLUS #### [address] Urea nitrogen [Mass/Vol] 50 mg/dL High 7-25 [facility] Comment on above: Performed By: #### C UU, ADDONUAPLUS #### [address] Serum or plasma anion gap de terminationOrdered By: Felicia Aguilar on 04-18-2024 Anion gap [Moles/Vol] Serum or plasma an ion gap determination 6.0-15.[address] [facility] Sodium [Moles/volume] in Ser um or PlasmaOrdered By: Felicia Aguilar on 04-18-2024 Sodium [Moles/Vol] Sodium [Moles/volume ] in Serum or Plasma Low 136-[address] [facility] Sodium [Moles/volume] in Uri neOrdered By: Felicia Aguilar on 04-18-2024 Sodium (U) [Moles/Vol] Sodium [Moles/vol ume] in Urine [facility] Comment on above: No reference range e stablished Sodium, Urine (Random)on Sodium (U) [Moles/Vol] 32 mmol/L Normal [facility] Comment on above: Result Comment: No r eference range established PERFORMED BY: [place] [address] PATHOLOGIST SAMPLE PULLER RADHA MANNING M.D. Performed By: #### U NARONALD #### [facility] [address] Urea nitrogen [Mass/volume] in Serum or PlasmaOrdered By: Felicia Aguilar on 04-18-2024 Urea nitrogen [Mass/Vol] Urea nitrogen [Mass/volume] in Serum or Plasma High 7-[address] [facility] Erythrocyte distribution wid th Auto (RBC) [Ratio]Ordered By: Obsusandah Daromar on 04-17-2024 Erythrocyte distribution width (RBC) [Ratio] Erythrocyte distribution width [Ratio] by Automated count 12.0-14.[address] [facility] Hematocrit Auto (Bld) [Volum e fraction]Ordered By: Obaydah Daromar on 04-17-2024 Hematocrit (Bld) [Volume fraction] Hematocrit [Volume Fraction] of Blood by Automated count 38.8-50.[address] [facility] Hemoglobin [Mass/volume] in BloodOrdered By: Obsusandah Daromar on 04-17-2024 Hemoglobin (Bld) [Mass/Vol] Hemoglobin [Mass/volume] in Blood 13.0-17.[address] [facility] Hemogram CBC Without Diffon 04-17-2024 Erythrocyte distribution width (RBC) [Ratio] 14.7 % Normal 12.0-14.8 [facility] Comment on above: Performed By: #### C VENU BUCHANANUAPLUS #### [facility] [address] [place] [address] Hematocrit (Bld) [Volume fraction] 42.0 % Normal 38.8-50.0 [facility] Comment on above: Performed By: #### C VENU BUCHANANUAPLUS #### [facility] [address] Hemoglobin (Bld) [Mass/Vol] 14.5 g/dL Normal 13.0-17.0 [facility] Comment on above: Performed By: #### C J LUIS BUCHANANPLUS #### [facility] [address] [place] [address] MCH (RBC) [Entitic mass] 30.2 pg Normal 27.5-35.2 [facility] Comment on above: Performed By: #### C SHERWIN BUCHANANONUAPLUS #### [address] MCV (RBC) [Entitic vol] 87.5 fL Normal 83.5-101 [facility] Comment on above: Performed By: #### C UU, ADDONUAPLUS #### [address] Mean Corpuscular HGB Conc 34.5 g/dL Normal 32.5-35.6 [facility] Comment on above: Performed By: #### C UU, ADDONUAPLUS #### [address] Platelet mean volume (Bld) [Entitic vol] 7.6 fL Normal 6.6-10.1 [facility] Comment on above: Result Comment: PERF ORMED BY: [place] [address] PATHOLOGIST SAMPLE PULLER RADHA MANNING M.D. Performed By: #### C UU, ADDONUAPLUS #### [place] [address] [place] Platelets (Bld) [#/Vol] 283 10*3/uL Normal 150-450 [facility] Comment on above: Performed By: #### C UU, ADDONUAPLUS #### [address] RBC (Bld) [#/Vol] 4.80 10*6/uL Normal 3.90-5.60 [facility] Comment on above: Performed By: #### C UU, ADDONUAPLUS #### [place] [address] [place] WBC (Bld) [#/Vol] 10.0 10*3/uL Normal 4.1-10.5 [facility] Comment on above: Performed By: #### C UU, ADDONUAPLUS #### [place] [address] [place] Leukocytes [#/volume] correc ariana for nucleated erythrocytes in Blood by Automated counOrdered By: Obsusandah Daromar on 04-17-2024 WBC corrected for nucl RBC Auto (Bld) [#/Vol] Leukocytes [#/volume] corrected for nucleated erythrocytes in Blood by Automated coun 4.1-10.[address] [facility] MCH Auto (RBC) [Entitic mass ]Ordered By: Obsusandah Daromar on 04-17-2024 MCH (RBC) [Entitic mass] MCH [Entitic mass] by Automated count 27.5-35.[address] [facility] MCHC Auto (RBC) [Mass/Vol]Or dered By: Obaydah Daromar on 04-17-2024 MCHC (RBC) [Mass/Vol] MCHC [Mass/volume] by Automated count 32.5-35.[address] [facility] MCV Auto (RBC) [Entitic vol] Ordered By: Obsusandah Daromar on 04-17-2024 MCV (RBC) [Entitic vol] MCV [Entitic vol ume] by Automated count 83.5-[address] [facility] Platelet mean volume Auto (B ld) [Entitic vol]Ordered By: Obaydah Daromar on 04-17-2024 Platelet mean volume (Bld) [Entitic vol] Platelet mean volume [Entitic volume] in Blood by Automated count 6.6-10.[address] [facility] Platelets Auto (Bld) [#/Vol] Ordered By: Obsusandah Daromar on 04-17-2024 Platelets (Bld) [#/Vol] Platelets [#/vol ume] in Blood by Automated count 150-[address] [facility] RBC Auto (Bld) [#/Vol]Ordere d By: Obaydah Daromar on 04-17-2024 RBC (Bld) [#/Vol] Erythrocytes [#/volu me] in Blood by Automated count 3.90-5.[address] [facility] Renal Function Panelon 04-17 Albumin [Mass/Vol] 3.7 g/dL Normal 3.5-5.7 [facility] Comment on above: Performed By: #### B MP, CBCNO #### [address] Anion gap [Moles/Vol] 13.3 mmol/L Normal 6.0-15.0 [facility] Comment on above: Performed By: #### B AMARIS, CBCNO #### [address] Calcium [Mass/Vol] 9.4 mg/dL Normal 8.6-10.3 [facility] Comment on above: Performed By: #### B AMARIS, CBCNO #### [address] Chloride [Moles/Vol] 103 mmol/L Normal 98-107 [facility] Comment on above: Performed By: #### B AMARIS, CBCNO #### [address] CO2 [Moles/Vol] 25.0 mmol/L Normal 21.0-31.0 [facility] Comment on above: Performed By: #### B AMARIS, CBCNO #### [address] Creatinine [Mass/Vol] 3.26 mg/dL Significan t change up 0.70-1.30 [facility] Comment on above: Performed By: #### B AMARIS, CBCNO #### [address] Creatinine Clr Calc Pharmacy 24.61 Normal [facility] Comment on above: Result Comment: PERF ORMED BY: [place] [address] PATHOLOGIST SAMPLE PULLER RADHA MANNING M.D. Performed By: #### B AMARIS, CBCNO #### [address] Estimated GFR 18.426 mL/Min Normal [facility] Comment on above: Performed By: #### B AMARIS, CBCNO #### [address] Glucose [Mass/Vol] 100 mg/dL Normal 70-100 [facility] Comment on above: Result Comment: [place] Glucose Reference Range is dependent on time and content of last meal. Glucose of more than 200 mg/dL in a nonstressed, ambulatory subject supports the diagnosis of Diabetes Mellitus. ADA recommended reference range Performed By: #### B AMARIS, CBCNO #### [address] Phosphate [Mass/Vol] 4.4 mg/dL Normal 2.5-4.5 [facility] Comment on above: Performed By: #### B AMARIS, CBCNO #### [address] Potassium [Moles/Vol] 4.3 mmol/L Normal 3.5-5.1 [facility] Comment on above: Performed By: #### B AMARIS, CBCNO #### [address] Sodium [Moles/Vol] 137 mmol/L Normal 136-145 [facility] Comment on above: Performed By: #### B AMARIS, CBCNO #### [address] Urea nitrogen [Mass/Vol] 53 mg/dL High 7-25 [facility] Comment on above: Performed By: #### B AMARIS CBCNO #### [address] Hemogram CBC Without Diffon 04-16-2024 Erythrocyte distribution width (RBC) [Ratio] 14.2 % Normal 12.0-14.8 [facility] Comment on above: Performed By: #### C UU ADDONUAPLUS #### [address] Hematocrit (Bld) [Volume fraction] 43.4 % Normal 38.8-50.0 [facility] Comment on above: Performed By: #### C UU ADDONUAPLUS #### [address] Hemoglobin (Bld) [Mass/Vol] 15.0 g/dL Normal 13.0-17.0 [facility] Comment on above: Performed By: #### C UU ADDONUAPLUS #### [address] MCH (RBC) [Entitic mass] 30.2 pg Normal 27.5-35.2 [facility] Comment on above: Performed By: #### C UU, ADDONUAPLUS #### [address] MCV (RBC) [Entitic vol] 87.2 fL Normal 83.5-101 [facility] Comment on above: Performed By: #### C UU, ADDONUAPLUS #### [address] Mean Corpuscular HGB Conc 34.6 g/dL Normal 32.5-35.6 [facility] Comment on above: Performed By: #### C UU, ADDONUAPLUS #### [address] Platelet mean volume (Bld) [Entitic vol] 7.8 fL Normal 6.6-10.1 [facility] Comment on above: Result Comment: PERF ORMED BY: [place] [address] PATHOLOGIST SAMPLE PULLER RADHA MANNING M.D. Performed By: #### C UU, ADDONUAPLUS #### [address] Platelets (Bld) [#/Vol] 297 10*3/uL Normal 150-450 [facility] Comment on above: Performed By: #### C UU, ADDONUAPLUS #### [address] RBC (Bld) [#/Vol] 4.98 10*6/uL Normal 3.90-5.60 [facility] Comment on above: Performed By: #### C UU, ADDONUAPLUS #### [address] WBC (Bld) [#/Vol] 8.7 10*3/uL Normal 4.1-10.5 [facility] Comment on above: Performed By: #### C TINO BUCHANAN #### [facility] [address] [place] brianna perf SPECT rest stron 04-16-2024 NM brianna perf SPECT rest str [facility] Main [place] [address] [place] [address] Nuclear Medicine Report Signed Patient: Corwin Muller MR#: [id number] : 1945 Acct:[id number] Age/Sex: 79 / M ADM Date: 04/10/24 Loc: Room: [address] [place] [address] Type: ADM IN Attending Dr: Jersey Bess [...] Jayda Burgess M.D.04/16/2024 12:45 PM Dictation Location: [facility] Transcribed By: RK 04/16/24 1245 Dictated By: Jayda Burgess MD 04/16/24 1237 Signed By: 04/16/24 1245 Normal [facility] Renal Function Panelon 04-16 Albumin [Mass/Vol] 3.6 g/dL Normal 3.5-5.7 [facility] Comment on above: Performed By: #### B AMARIS CBCNO #### [address] Anion gap [Moles/Vol] 16.3 mmol/L High 6.0-15.0 [facility] Comment on above: Performed By: #### B AMARIS CBCNO #### [address] Calcium [Mass/Vol] 9.1 mg/dL Normal 8.6-10.3 [facility] Comment on above: Performed By: #### B AMARIS, CBCNO #### [address] Chloride [Moles/Vol] 104 mmol/L Normal 98-107 [facility] Comment on above: Performed By: #### B AMARIS, CBCNO #### [address] CO2 [Moles/Vol] 21.6 mmol/L Normal 21.0-31.0 [facility] Comment on above: Performed By: #### B AMARIS, CBCNO #### [address] Creatinine [Mass/Vol] 2.68 mg/dL High 0.70-1.30 [facility] Comment on above: Performed By: #### B AMARIS, CBCNO #### [place] [address] [place] Creatinine Clr Calc Pharmacy 29.94 Normal [facility] Comment on above: Result Comment: PERF ORMED BY: [place] [address] PATHOLOGIST SAMPLE PULLER RADHA MANNING M.D. Performed By: #### B AMARIS, CBCNO #### [facility] [address] Estimated GFR 23.310 mL/Min Normal [facility] Comment on above: Performed By: #### B AMARIS, CBCNO #### [facility] [address] Glucose [Mass/Vol] 99 mg/dL Normal 70-100 [facility] Comment on above: Result Comment: [facility] Glucose Reference Range is dependent on time and content of last meal. Glucose of more than 200 mg/dL in a nonstressed, ambulatory subject supports the diagnosis of Diabetes Mellitus. ADA recommended reference range Performed By: #### B AMARIS, CBCNO #### [address] Phosphate [Mass/Vol] 3.6 mg/dL Normal 2.5-4.5 [facility] Comment on above: Performed By: #### B AMARIS CBCNO #### [address] Potassium [Moles/Vol] 3.9 mmol/L Normal 3.5-5.1 [facility] Comment on above: Result Comment: Hemo lysis is present at a level that could interfere with the result. Contact lab if redraw is required Performed By: #### B AMARIS CBCNO #### [place] [address] [place] Sodium [Moles/Vol] 138 mmol/L Normal 136-145 [facility] Comment on above: Performed By: #### B AMARIS CBCNO #### [facility] [address] [place] [address] [place] Urea nitrogen [Mass/Vol] 42 mg/dL High 7-25 [facility] Comment on above: Performed By: #### B AMARIS, CBCNO #### [facility] [address] [place] [address] [place] Alanine aminotransferase [En zymatic activity/volume] in Serum or PlasmaOrdered By: Jersey Bess on 04-15-2024 ALT [Catalytic activity/Vol] Alanine aminotransferase [Enzymatic activity/volume] in Serum or Plasma 7-[address] [facility] Alkaline phosphatase [Enzyma tic activity/volume] in Serum or PlasmaOrdered By: Obsusandali Covarrubiasomar on 04-15-2024 ALP [Catalytic activity/Vol] Alkaline phosphatase [Enzymatic activity/volume] in Serum or Plasma 34-[address] [facility] Aspartate aminotransferase [ Enzymatic activity/volume] in Serum or PlasmaOrdered By: Obaydah Daromar on 04-15-2024 AST [Catalytic activity/Vol] Aspartate aminotransferase [Enzymatic activity/volume] in Serum or Plasma 13-[address] [facility] Bilirubin.total [Mass/volume ] in Serum or PlasmaOrdered By: Obsusandali Covarrubiasomar on 04-15-2024 Bilirubin [Mass/Vol] Bilirubin.total [Mass/volume] in Serum or Plasma 0.3-1.[address] [facility] Comprehensive Metabolic Pane nazanin 04-15-2024 Albumin [Mass/Vol] 3.6 g/dL Normal 3.5-5.7 [facility] Comment on above: Performed By: #### B RAUL GLEZ #### [address] Albumin/Globulin [Mass ratio] 1.2 {ratio} Normal [facility] Comment on above: Performed By: #### B RAUL GLEZ #### [facility] [address] [place] [id number] [facility] ALP [Catalytic activity/Vol] 46 U/L Normal 34-104 [facility] Comment on above: Performed By: #### B RAUL GLEZ #### [facility] [address] [place] [id number] [facility] ALT [Catalytic activity/Vol] 27 U/L Normal 7-52 [facility] Comment on above: Performed By: #### B ALE GLEZNO #### [facility] [address] [place] [id number] [facility] Anion gap [Moles/Vol] 11.5 mmol/L Normal 6.0-15.0 [facility] Comment on above: Performed By: #### B ALE GLEZNO #### [facility] [address] [place] [address] AST [Catalytic activity/Vol] 30 U/L Normal 13-39 [facility] Comment on above: Performed By: #### B AAMRIS CBCNO #### [address] Bilirubin [Mass/Vol] 0.6 mg/dL Normal 0.3-1.0 [facility] Comment on above: Performed By: #### B AMARIS, CBCNO #### [address] Calcium [Mass/Vol] 9.2 mg/dL Normal 8.6-10.3 [facility] Comment on above: Performed By: #### B AMARIS CBCNO #### [address] Chloride [Moles/Vol] 104 mmol/L Normal 98-107 [facility] Comment on above: Performed By: #### B AMARIS CBCNO #### [address] CO2 [Moles/Vol] 26.6 mmol/L Normal 21.0-31.0 [facility] Comment on above: Performed By: #### B AMARIS CBCNO #### [address] Creatinine [Mass/Vol] 2.58 mg/dL High 0.70-1.30 [facility] Comment on above: Performed By: #### B AMARIS CBCNO #### [address] Creatinine Clr Calc Pharmacy 31.18 Normal [facility] Comment on above: Performed By: #### B AMARIS, CBCNO #### [address] Estimated GFR 24.398 mL/Min Normal [facility] Comment on above: Performed By: #### B AMARIS, CBCNO #### [address] Globulin (S) [Mass/Vol] 2.9 g/dL Normal T [facility] Comment on above: Performed By: #### B MP, CBCNO #### [address] Glucose [Mass/Vol] 100 mg/dL Normal 70-100 [facility] Comment on above: Result Comment: [facility] Glucose Reference Range is dependent on time and content of last meal. Glucose of more than 200 mg/dL in a nonstressed, ambulatory subject supports the diagnosis of Diabetes Mellitus. ADA recommended reference range Performed By: #### B AMARIS, CBCNO #### [address] Potassium [Moles/Vol] 4.1 mmol/L Normal 3.5-5.1 [facility] Comment on above: Performed By: #### B AMARIS, CBCNO #### [address] Protein [Mass/Vol] 6.5 g/dL Normal 6.4-8.9 [facility] Comment on above: Performed By: #### B AMARIS, CBCNO #### [address] Sodium [Moles/Vol] 138 mmol/L Normal 136-145 [facility] Comment on above: Performed By: #### B AMARIS CBCNO #### [address] Urea nitrogen [Mass/Vol] 38 mg/dL High 7-25 [facility] Comment on above: Performed By: #### B AMARIS, CBCNO #### [address] Globulin Calc (S) [Mass/Vol] Ordered By: Jersey Bess on 04-15-2024 Globulin (S) [Mass/Vol] Serum globulin m easurement by calculation (mass/volume) [facility] Hemogram CBC Without Diffon 04-15-2024 Erythrocyte distribution width (RBC) [Ratio] 14.0 % Normal 12.0-14.8 [facility] Comment on above: Performed By: #### C UU, ADDONUAPLUS #### [address] Hematocrit (Bld) [Volume fraction] 42.5 % Normal 38.8-50.0 [facility] Comment on above: Performed By: #### C UU, ADDONUAPLUS #### [address] Hemoglobin (Bld) [Mass/Vol] 14.8 g/dL Normal 13.0-17.0 [facility] Comment on above: Performed By: #### C UU, ADDONUAPLUS #### [address] MCH (RBC) [Entitic mass] 30.3 pg Normal 27.5-35.2 [facility] Comment on above: Performed By: #### C UU, ADDONUAPLUS #### [address] MCV (RBC) [Entitic vol] 87.1 fL Normal 83.5-101 [facility] Comment on above: Performed By: #### C UU, ADDONUAPLUS #### [address] Mean Corpuscular HGB Conc 34.8 g/dL Normal 32.5-35.6 [facility] Comment on above: Performed By: #### C UU, ADDONUAPLUS #### [address] Platelet mean volume (Bld) [Entitic vol] 7.7 fL Normal 6.6-10.1 [facility] Comment on above: Result Comment: PERF ORMED BY: [place] [address] PATHOLOGIST SAMPLE PULLER RADHA MANNING M.D. Performed By: #### C UU, ADDONUAPLUS #### [address] Platelets (Bld) [#/Vol] 270 10*3/uL Normal 150-450 [facility] Comment on above: Performed By: #### C UU, ADDONUAPLUS #### [address] [place] [address] [facility] RBC (Bld) [#/Vol] 4.88 10*6/uL Normal 3.90-5.60 [facility] Comment on above: Performed By: #### C UU, ADDONUAPLUS #### [facility] [address] [place] [id number] [facility] WBC (Bld) [#/Vol] 8.5 10*3/uL Normal 4.1-10.5 [facility] Comment on above: Performed By: #### C UU, ADDONUAPLUS #### [address] Magnesiumon 04-15-2024 Magnesium [Mass/Vol] 2.1 mg/dL Normal 1.9-2.7 [facility] Comment on above: Result Comment: PERF ORMED BY: [place] [address] PATHOLOGIST SAMPLE PULLER RADHA MANNING M.D. Performed By: #### B MP, CBCNO #### [address] Magnesium [Mass/volume] in S srikanth or PlasmaOrdered By: Tobi Monroy on 04-15-2024 Magnesium [Mass/Vol] Magnesium [Mass/vol ume] in Serum or Plasma 1.9-2.[address] [facility] No Panel InformationOrdered By: Jayda Burgess on 04-15-2024 [facility] Main [place] [address] [place] [address] Cardiac Stress Test Signed Patient: Corwin Muller MR#: [id number] : 1945 Date of Service:0 04/15/24 Age/Sex: 79 / M ADM Date: 5 Loc: Room: [address] [place] [address] Type: ADM IN Attending Dr: Jersey Bess [...] a separate cover. Transcribed By: onelia 04/15/24 152 Dictated By: Jayda Burgess MD 04/15/24 152 Signed By: 04/15/[address] [facility] Work Phone: Protein [Mass/volume] in Ser um or PlasmaOrdered By: Jersey Bess on 04-15-2024 Protein [Mass/Vol] Protein [Mass/volume ] in Serum or Plasma 6.4-8.[address] [facility] Renal Function Panelon 04-15 Phosphate [Mass/Vol] 3.9 mg/dL Normal 2.5-4.5 [facility] Comment on above: Performed By: #### B RAUL GLEZ #### [address] Serum or plasma albumin/glob ulin mass ratioOrdered By: Jersey Bess on 04-15-2024 Albumin/Globulin [Mass ratio] Serum or plasma albumin/globulin mass ratio [facility] Basic Metabolic Panelon 03-24 Anion gap [Moles/Vol] 13.7 mmol/L Normal 6.0-15.0 [facility] Comment on above: Performed By: #### B RAUL GLEZ #### [facility] [address] [place] [address] [place] Calcium [Mass/Vol] 8.8 mg/dL Normal 8.6-10.3 [facility] Comment on above: Performed By: #### B ALE GLEZNO #### [facility] [address] [place] [id number] [place] Chloride [Moles/Vol] 105 mmol/L Normal 98-107 [facility] Comment on above: Performed By: #### B MP, CBCNO #### [facility] [address] CO2 [Moles/Vol] 23.2 mmol/L Normal 21.0-31.0 [facility] Comment on above: Performed By: #### B MP, CBCNO #### [facility] [address] [place] [address] [place] Creatinine [Mass/Vol] 2.30 mg/dL High 0.70-1.30 [facility] Comment on above: Performed By: #### B MP, CBCNO #### [facility] [address] [place] [address] [place] Creatinine Clr Calc Pharmacy 34.97 Normal [facility] Comment on above: Result Comment: PERF ORMED BY: [place] [address] PATHOLOGIST SAMPLE PULLER RADHA MANNING M.D. Performed By: #### B MP, CBCNO #### [facility] [address] Estimated GFR 28.004 mL/Min Normal [facility] Comment on above: Performed By: #### B MP, CBCNO #### [facility] [address] Glucose [Mass/Vol] 103 mg/dL High 70-100 [facility] Comment on above: Result Comment: [place] Glucose Reference Range is dependent on time and content of last meal. Glucose of more than 200 mg/dL in a nonstressed, ambulatory subject supports the diagnosis of Diabetes Mellitus. ADA recommended reference range Performed By: #### B MP, CBCNO #### [facility] [address] [place] [address] [place] Potassium [Moles/Vol] 3.9 mmol/L Normal 3.5-5.1 [facility] Comment on above: Performed By: #### B MP, CBCNO #### [facility] [address] [place] [address] [place] Sodium [Moles/Vol] 138 mmol/L Normal 136-145 [facility] Comment on above: Performed By: #### B MP, CBCNO #### [address] Urea nitrogen [Mass/Vol] 36 mg/dL High 7-25 [facility] Comment on above: Performed By: #### B MP, CBCNO #### [address] Hemogram CBC Without Diffon 04-14-2024 Erythrocyte distribution width (RBC) [Ratio] 14.1 % Normal 12.0-14.8 [facility] Comment on above: Performed By: #### B MP, CBCNO #### [address] Hematocrit (Bld) [Volume fraction] 42.1 % Normal 38.8-50.0 [facility] Comment on above: Performed By: #### B MP, CBCNO #### [address] Hemoglobin (Bld) [Mass/Vol] 14.6 g/dL Normal 13.0-17.0 [facility] Comment on above: Performed By: #### B MP, CBCNO #### [address] MCH (RBC) [Entitic mass] 30.3 pg Normal 27.5-35.2 [facility] Comment on above: Performed By: #### B MP, CBCNO #### [address] MCV (RBC) [Entitic vol] 87.8 fL Normal 83.5-101 [facility] Comment on above: Performed By: #### B MP, CBCNO #### [address] Mean Corpuscular HGB Conc 34.6 g/dL Normal 32.5-35.6 [facility] Comment on above: Performed By: #### B MP, CBCNO #### [address] Platelet mean volume (Bld) [Entitic vol] 7.7 fL Normal 6.6-10.1 [facility] Comment on above: Result Comment: PERF ORMED BY: [place] [address] PATHOLOGIST SAMPLE P[employer]ER RADHA MANNING M.D. Performed By: #### B MP, CBCNO #### [address] Platelets (Bld) [#/Vol] 278 10*3/uL Normal 150-450 [facility] Comment on above: Performed By: #### B MP, CBCNO #### [address] RBC (Bld) [#/Vol] 4.80 10*6/uL Normal 3.90-5.60 [facility] Comment on above: Performed By: #### B MP, CBCNO #### [address] WBC (Bld) [#/Vol] 9.5 10*3/uL Normal 4.1-10.5 [facility] Comment on above: Performed By: #### B MP, CBCNO #### [address] Basophils Auto (Bld) [#/Vol] Ordered By: Obsusandah Daromar on 04-13-2024 Basophils (Bld) [#/Vol] Automated basophil count 0.0-0.[address] [facility] Basophils/100 WBC Auto (Bld) Ordered By: Obaydah Daromar on 04-13-2024 Basophils/100 WBC (Bld) Automated basophil % . [facility] Complete Blood Count Auto Di ffon 04-13-2024 Basophils (Bld) [#/Vol] 0.0 10*3/uL Normal 0.0-0.2 [facility] Comment on above: Result Comment: PERF ORMED BY: [place] [address] PATHOLOGIST SAMPLE PULLER RADHA MANNING M.D. Performed By: #### C UU, ADDONUAPLUS #### [address] Basophils/100 WBC (Bld) 0.4 % Normal . T felipe [facility] Comment on above: Performed By: #### C UU, ADDONUAPLUS #### [address] Eosinophils (Bld) [#/Vol] 0.6 10*3/uL High 0.0-0.45 [facility] Comment on above: Performed By: #### C UU, ADDONUAPLUS #### [address] Eosinophils/100 WBC (Bld) 6.7 % Normal . [facility] Comment on above: Performed By: #### C UU, ADDONUAPLUS #### [address] Erythrocyte distribution width (RBC) [Ratio] 14.2 % Normal 12.0-14.8 [facility] Comment on above: Performed By: #### C UU, ADDONUAPLUS #### [address] Hematocrit (Bld) [Volume fraction] 40.8 % Normal 38.8-50.0 [facility] Comment on above: Performed By: #### C UU, ADDONUAPLUS #### [address] Hemoglobin (Bld) [Mass/Vol] 14.3 g/dL Normal 13.0-17.0 [facility] Comment on above: Performed By: #### C UU, ADDONUAPLUS #### [place] [address] [place] Lymphocytes (Bld) [#/Vol] 1.6 10*3/uL Normal 1.00-4.8 [facility] Comment on above: Performed By: #### C UU, ADDONUAPLUS #### [place] [address] [place] Lymphocytes/100 WBC (Bld) 18.6 % Normal . [facility] Comment on above: Performed By: #### C UU, ADDONUAPLUS #### [address] MCH (RBC) [Entitic mass] 30.2 pg Normal 27.5-35.2 [facility] Comment on above: Performed By: #### C UU, ADDONUAPLUS #### [address] MCV (RBC) [Entitic vol] 86.4 fL Normal 83.5-101 T [facility] Comment on above: Performed By: #### C UU, ADDONUAPLUS #### [address] Mean Corpuscular HGB Conc 35.0 g/dL Normal 32.5-35.6 [facility] Comment on above: Performed By: #### C UU, ADDONUAPLUS #### [address] Monocytes (Bld) [#/Vol] 1.0 10*3/uL High 0.0-0.8 [facility] Comment on above: Performed By: #### C UU, ADDONUAPLUS #### [address] Monocytes/100 WBC (Bld) 11.0 % Normal . [facility] Comment on above: Performed By: #### C UU, ADDONUAPLUS #### [address] Neutrophils (Bld) [#/Vol] 5.5 10*3/uL Normal 1.8-7.7 [facility] Comment on above: Performed By: #### C UU, ADDONUAPLUS #### [address] Neutrophils/100 WBC (Bld) 63.3 % Normal . [facility] Comment on above: Performed By: #### C UU, ADDONUAPLUS #### [address] NRBC% 0.1 /100{WBC} Normal 0-0.5 [facility] Comment on above: Performed By: #### C UU, ADDONUAPLUS #### [address] Platelet mean volume (Bld) [Entitic vol] 7.9 fL Normal 6.6-10.1 [facility] Comment on above: Performed By: #### C UU, ADDONUAPLUS #### [address] Platelets (Bld) [#/Vol] 245 10*3/uL Normal 150-450 [facility] Comment on above: Performed By: #### C UU, ADDONUAPLUS #### [address] RBC (Bld) [#/Vol] 4.73 10*6/uL Normal 3.90-5.60 [facility] Comment on above: Performed By: #### C UU, ADDONUAPLUS #### [address] WBC (Bld) [#/Vol] 8.7 10*3/uL Normal 4.1-10.5 [facility] Comment on above: Performed By: #### C UU, ADDONUAPLUS #### [address] Comprehensive Metabolic Pane nazanin 04-13-2024 Albumin [Mass/Vol] 3.5 g/dL Normal 3.5-5.7 [facility] Comment on above: Performed By: #### C UU, ADDONUAPLUS #### [address] Albumin/Globulin [Mass ratio] 1.2 {ratio} Normal [facility] Comment on above: Performed By: #### C UU, ADDONUAPLUS #### [address] ALP [Catalytic activity/Vol] 44 U/L Normal 34-104 [facility] Comment on above: Performed By: #### C UU, ADDONUAPLUS #### [facility] [address] ALT [Catalytic activity/Vol] 18 U/L Normal 7-52 [facility] Comment on above: Performed By: #### C UU, ADDONUAPLUS #### [facility] [address] Anion gap [Moles/Vol] 13.9 mmol/L Normal 6.0-15.0 [facility] Comment on above: Performed By: #### C UU, ADDONUAPLUS #### [address] AST [Catalytic activity/Vol] 25 U/L Normal 13-39 [facility] Comment on above: Performed By: #### C UU, ADDONUAPLUS #### [address] Bilirubin [Mass/Vol] 0.6 mg/dL Normal 0.3-1.0 [facility] Comment on above: Performed By: #### C UU, ADDONUAPLUS #### [place] [address] [place] Calcium [Mass/Vol] 8.8 mg/dL Normal 8.6-10.3 [facility] Comment on above: Performed By: #### C UU, ADDONUAPLUS #### [place] [address] [place] Chloride [Moles/Vol] 104 mmol/L Normal 98-107 [facility] Comment on above: Performed By: #### C UU, ADDONUAPLUS #### [place] [address] [place] CO2 [Moles/Vol] 23.6 mmol/L Normal 21.0-31.0 [facility] Comment on above: Performed By: #### C UU, ADDONUAPLUS #### [place] [address] [place] Creatinine [Mass/Vol] 2.41 mg/dL High 0.70-1.30 [facility] Comment on above: Performed By: #### C UU, ADDONUAPLUS #### [address] Creatinine Clr Calc Pharmacy 33.55 Normal [facility] Comment on above: Result Comment: PERF ORMED BY: [place] [address] PATHOLOGIST SAMPLE P[employer]ER RADHA MANNING M.D. Performed By: #### C UU, ADDONUAPLUS #### [address] Estimated GFR 26.478 mL/Min Normal [facility] Comment on above: Performed By: #### C UU, ADDONUAPLUS #### [address] Globulin (S) [Mass/Vol] 2.9 g/dL Normal T [facility] Comment on above: Performed By: #### C UU, ADDONUAPLUS #### [address] Glucose [Mass/Vol] 100 mg/dL Normal 70-100 [facility] Comment on above: Result Comment: [place] Glucose Reference Range is dependent on time and content of last meal. Glucose of more than 200 mg/dL in a nonstressed, ambulatory subject supports the diagnosis of Diabetes Mellitus. ADA recommended reference range Performed By: #### C UU, ADDONUAPLUS #### [address] Potassium [Moles/Vol] 3.5 mmol/L Normal 3.5-5.1 [facility] Comment on above: Performed By: #### C UU, ADDONUAPLUS #### [address] Protein [Mass/Vol] 6.4 g/dL Normal 6.4-8.9 [facility] Comment on above: Performed By: #### C UU, ADDONUAPLUS #### [place] [id number] [place] Sodium [Moles/Vol] 138 mmol/L Normal 136-145 [facility] Comment on above: Performed By: #### C J LUIS BUCHANANPLUS #### [facility] [address] Urea nitrogen [Mass/Vol] 39 mg/dL High 7-25 [facility] Comment on above: Performed By: #### C SHERWIN BUCHANANONUAPLUS #### [facility] [address] Eosinophils Auto (Bld) [#/Vo l]Ordered By: Obaydah Daromar on 04-13-2024 Eosinophils (Bld) [#/Vol] Automated eosinophil count High 0.0-0.45 [facility] Eosinophils/100 WBC Auto (Bl d)Ordered By: Obaydah Daromar on 04-13-2024 Eosinophils/100 WBC (Bld) Automated eosinophil % . [facility] Lymphocytes Auto (Bld) [#/Vo l]Ordered By: Obaydah Daromar on 04-13-2024 Lymphocytes (Bld) [#/Vol] Lymphocytes [#/volume] in Blood by Automated count 1.00-4.[address] [facility] Lymphocytes/100 WBC Auto (Bl d)Ordered By: Obaydah Daromar on 04-13-2024 Lymphocytes/100 WBC (Bld) Lymphocytes/100 leukocytes in Blood by Automated count . [facility] Monocytes Auto (Bld) [#/Vol] Ordered By: Obaydah Daromar on 04-13-2024 Monocytes (Bld) [#/Vol] Automated blood monocyte count High 0.0-0.[address] [facility] Monocytes/100 WBC Auto (Bld) Ordered By: Obaydah Daromar on 04-13-2024 Monocytes/100 WBC (Bld) Automated monocyte % . [facility] Neutrophils Auto (Bld) [#/Vo l]Ordered By: Obaydah Daromar on 04-13-2024 Neutrophils (Bld) [#/Vol] Neutrophils [#/volume] in Blood by Automated count 1.8-7.[address] [facility] Neutrophils/100 WBC Auto (Bl d)Ordered By: Jersey Bess on 04-13-2024 Neutrophils/100 WBC (Bld) Automated neutrophil % . [facility] Nucleated erythrocytes [Pres ence] in Blood by Automated countOrdered By: Jersey Bess on 04-13-2024 Nucleated RBC Auto Ql (Bld) Nucleated erythrocytes [Presence] in Blood by Automated count 0-0.[address] [facility] WBC Auto (Bld) [#/Vol]Ordere d By: Jersey Reyesr on 04-13-2024 WBC (Bld) [#/Vol] Leukocytes [#/volume ] in Blood by Automated count 4.1-10.[address] [facility] Anti-Xa UF Heparinon 025 Anti-Xa UF Heparin 0.32 [IU]/mL Normal 0.30-0.70 [facility] Comment on above: Result Comment: Use the aPTT protocol when triglycerides are > 800 mg/dL, total bilirubin is > 20 mg/dL and/or patient has received a DOAC, Fondaparinux or LMWH within 72 hours AND baseline anti-Xa level is > 0.7 units/mL PERFORMED BY: [place] [address] PATHOLOGIST S[employer] P[employer]ER RADHA MANNING M.D. Performed By: #### C USHERWIN JimenezONUAPLUS #### [facility] [address] [place] [address] Anti-Xa UF Heparin 0.23 [IU]/mL Low 0.30-0.70 [facility] Comment on above: Result Comment: Use the aPTT protocol when triglycerides are > 800 mg/dL, total bilirubin is > 20 mg/dL and/or patient has received a DOAC, Fondaparinux or LMWH within 72 hours AND baseline anti-Xa level is > 0.7 units/mL PERFORMED BY: [place] [address] PATHOLOGIST S[employer] P[employer]ER RADHA MANNING M.D. Performed By: #### C UU, ADDONUAPLUS #### [place] [address] Anti-Xa UF Heparin 0.11 [IU]/mL Low 0.30-0.70 [facility] Comment on above: Result Comment: Use the aPTT protocol when triglycerides are > 800 mg/dL, total bilirubin is > 20 mg/dL and/or patient has received a DOAC, Fondaparinux or LMWH within 72 hours AND baseline anti-Xa level is > 0.7 units/mL PERFORMED BY: [place] [address] PATHOLOGIST S[employer] P[employer]ER RADHA MANNING M.D. Performed By: #### C UU, ADDONUAPLUS #### [address] Appearance of UrineOrdered B y: Tobi Monroy on 04-12-2024 Appearance (U) Urine appearance Abnormal Clear [facility] Bacteria [Presence] in Urine by AutomatedOrdered By: Tobi Monroy on 04-12-2024 Bacteria Auto Ql (U) Bacteria [Presence] in Urine by Automated High None Seen [facility] Bilirubin Test strip Ql (U)O rdered By: Tobi Monroy on 04-12-2024 Bilirubin Ql (U) Bilirubin.total [Pre sence] in Urine by Test strip Negative [facility] Color Auto (U)Ordered By: Ab tim Monroy on 04-12-2024 Color (U) Color of Urine by Auto Abnormal Yellow [facility] Count Auto Di ffon 04-12-2024 Basophils (Bld) [#/Vol] 0.0 10*3/uL Normal 0.0-0.2 [facility] Comment on above: Result Comment: PERF ORMED BY: [place] [address] PATHOLOGIST SAMPLE P[employer]ER RADHA MANNING M.D. Performed By: #### C UU, ADDONUAPLUS #### [address] Basophils/100 WBC (Bld) 0.3 % Normal . [facility] Comment on above: Performed By: #### C UU, ADDONUAPLUS #### [address] Eosinophils (Bld) [#/Vol] 0.5 10*3/uL High 0.0-0.45 [facility] Comment on above: Performed By: #### C UU, ADDONUAPLUS #### [address] Eosinophils/100 WBC (Bld) 4.7 % Normal . [facility] Comment on above: Performed By: #### C UU, ADDONUAPLUS #### [address] Erythrocyte distribution width (RBC) [Ratio] 14.2 % Normal 12.0-14.8 [facility] Comment on above: Performed By: #### C UU, ADDONUAPLUS #### [address] Hematocrit (Bld) [Volume fraction] 39.4 % Normal 38.8-50.0 [facility] Comment on above: Performed By: #### C UU, ADDONUAPLUS #### [address] Hemoglobin (Bld) [Mass/Vol] 13.8 g/dL Normal 13.0-17.0 [facility] Comment on above: Performed By: #### C UU, ADDONUAPLUS #### [address] Lymphocytes (Bld) [#/Vol] 2.6 10*3/uL Normal 1.00-4.8 [facility] Comment on above: Performed By: #### C UU, ADDONUAPLUS #### [address] Lymphocytes/100 WBC (Bld) 23.6 % Normal . [facility] Comment on above: Performed By: #### C UU, ADDONUAPLUS #### [address] MCH (RBC) [Entitic mass] 30.6 pg Normal 27.5-35.2 [facility] Comment on above: Performed By: #### C UU, ADDONUAPLUS #### [address] MCV (RBC) [Entitic vol] 87.6 fL Normal 83.5-101 T [facility] Comment on above: Performed By: #### C UU, ADDONUAPLUS #### [address] Mean Corpuscular HGB Conc 34.9 g/dL Normal 32.5-35.6 [facility] Comment on above: Performed By: #### C UU, ADDONUAPLUS #### [address] Monocytes (Bld) [#/Vol] 1.2 10*3/uL High 0.0-0.8 [facility] Comment on above: Performed By: #### C UU, ADDONUAPLUS #### [address] Monocytes/100 WBC (Bld) 11.0 % Normal . [facility] Comment on above: Performed By: #### C UU, ADDONUAPLUS #### [address] Neutrophils (Bld) [#/Vol] 6.6 10*3/uL Normal 1.8-7.7 [facility] Comment on above: Performed By: #### C UU, ADDONUAPLUS #### [place] [address] [place] Neutrophils/100 WBC (Bld) 60.4 % Normal . [facility] Comment on above: Performed By: #### C UU, ADDONUAPLUS #### [address] NRBC% 0.1 /100{WBC} Normal 0-0.5 [facility] Comment on above: Performed By: #### C UU, ADDONUAPLUS #### [address] Platelet mean volume (Bld) [Entitic vol] 8.0 fL Normal 6.6-10.1 [facility] Comment on above: Performed By: #### C UU, ADDONUAPLUS #### [address] Platelets (Bld) [#/Vol] 265 10*3/uL Normal 150-450 [facility] Comment on above: Performed By: #### C UU, ADDONUAPLUS #### [address] RBC (Bld) [#/Vol] 4.50 10*6/uL Normal 3.90-5.60 [facility] Comment on above: Performed By: #### C UU, ADDONUAPLUS #### [address] WBC (Bld) [#/Vol] 11.0 10*3/uL High 4.1-10.5 [facility] Comment on above: Performed By: #### C UU, ADDONUAPLUS #### [address] Comprehensive Metabolic Pane nazanin 04-12-2024 Albumin [Mass/Vol] 3.2 g/dL Low 3.5-5.7 [facility] Comment on above: Performed By: #### C UU, ADDONUAPLUS #### [address] Albumin/Globulin [Mass ratio] 1.5 {ratio} Normal [facility] Comment on above: Performed By: #### C UU, ADDONUAPLUS #### [address] ALP [Catalytic activity/Vol] 42 U/L Normal 34-104 [facility] Comment on above: Performed By: #### C UU, ADDONUAPLUS #### [address] ALT [Catalytic activity/Vol] 13 U/L Normal 7-52 [facility] Comment on above: Performed By: #### C UU, ADDONUAPLUS #### [address] Anion gap [Moles/Vol] 14.4 mmol/L Normal 6.0-15.0 [facility] Comment on above: Performed By: #### C UU, ADDONUAPLUS #### [address] AST [Catalytic activity/Vol] 18 U/L Normal 13-39 [facility] Comment on above: Performed By: #### C UU, ADDONUAPLUS #### [address] Bilirubin [Mass/Vol] 0.8 mg/dL Normal 0.3-1.0 [facility] Comment on above: Performed By: #### C UU, ADDONUAPLUS #### [address] Calcium [Mass/Vol] 8.4 mg/dL Low 8.6-10.3 [facility] Comment on above: Performed By: #### C UU, ADDONUAPLUS #### [place] [address] [place] Chloride [Moles/Vol] 103 mmol/L Normal 98-107 [facility] Comment on above: Performed By: #### C UU, ADDONUAPLUS #### [place] [address] [place] CO2 [Moles/Vol] 24.3 mmol/L Normal 21.0-31.0 [facility] Comment on above: Performed By: #### C UU, ADDONUAPLUS #### [place] [address] [place] Creatinine [Mass/Vol] 2.62 mg/dL High 0.70-1.30 [facility] Comment on above: Performed By: #### C UU, ADDONUAPLUS #### [place] [address] [place] Creatinine Clr Calc Pharmacy 27.61 Normal [facility] Comment on above: Result Comment: PERF ORMED BY: [place] [address] PATHOLOGIST SAMPLE PULLER RADHA MANNING M.D. Performed By: #### C UU, ADDONUAPLUS #### [address] Estimated GFR 23.951 mL/Min Normal [facility] Comment on above: Performed By: #### C UU, ADDONUAPLUS #### [address] Globulin (S) [Mass/Vol] 2.1 g/dL Normal T [facility] Comment on above: Performed By: #### C UU, ADDONUAPLUS #### [address] Glucose [Mass/Vol] 92 mg/dL Normal 70-100 [facility] Comment on above: Result Comment: [facility] Glucose Reference Range is dependent on time and content of last meal. Glucose of more than 200 mg/dL in a nonstressed, ambulatory subject supports the diagnosis of Diabetes Mellitus. ADA recommended reference range Performed By: #### C UU, ADDONUAPLUS #### [address] Potassium [Moles/Vol] 3.7 mmol/L Normal 3.5-5.1 [facility] Comment on above: Performed By: #### C UU, ADDONUAPLUS #### [address] Protein [Mass/Vol] 5.3 g/dL Low 6.4-8.9 [facility] Comment on above: Performed By: #### C UU, ADDONUAPLUS #### [address] Sodium [Moles/Vol] 138 mmol/L Normal 136-145 [facility] Comment on above: Performed By: #### C UU, ADDONUAPLUS #### [address] [place] [address] [place] Urea nitrogen [Mass/Vol] 40 mg/dL High 7-25 [facility] Comment on above: Performed By: #### C UU, ADDONUAPLUS #### [place] [address] [place] Dipstick and Microscopicon 0 04-12-2024 Appearance (U) Turbid Critically abnormal Clear [facility] Comment on above: Order Comment: Name Collection Type:: Ruiz Catheter Performed By: #### C UU, ADDONUAPLUS #### [address] Bacteria,Urine 4+ High None Seen [facility] Comment on above: Order Comment: Name Collection Type:: Ruiz Catheter Performed By: #### C UU, ADDONUAPLUS #### [address] Bilirubin,Urine Negative Normal Negative [facility] Comment on above: Order Comment: Name Collection Type:: Ruiz Catheter Performed By: #### C UU, ADDONUAPLUS #### [address] [place] Yeast,Urine 2+ High None Seen [facility] Comment on above: Order Comment: Name Collection Type:: Ruiz Catheter Result Comment: PERF ORMED BY: [place] [address] PATHOLOGIST SAMPLE PULLER RADHA MANNING M.D. Performed By: #### C UU, ADDONUAPLUS #### [address] Color (U) [place] Critically abnormal Yellow [facility] Comment on above: Order Comment: Name Collection Type:: Ruiz Catheter Performed By: #### C UU, ADDONUAPLUS #### [place] [address] [place] Glucose Ql (U) Normal Normal Normal [facility] Comment on above: Order Comment: Name Collection Type:: Ruiz Catheter Performed By: #### C UU, ADDONUAPLUS #### [address] Hyaline Casts,Urine 20-49 High 0-8 [facility] Comment on above: Order Comment: Name Collection Type:: Ruiz Catheter Performed By: #### C UU, ADDONUAPLUS #### [address] Ketones Ql (U) Trace High Negative [facility] Comment on above: Order Comment: Name Collection Type:: Ruiz Catheter Performed By: #### C UU, ADDONUAPLUS #### [address] Leukocyte esterase Test strip Ql (U) 4+ High Negative [facility] Comment on above: Order Comment: Name Collection Type:: Ruiz Catheter Performed By: #### C UU, ADDONUAPLUS #### [address] Mucus,Urine 3+ Critically abnormal [facility] Comment on above: Order Comment: Name Collection Type:: Ruiz Catheter Performed By: #### C UU, ADDONUAPLUS #### [place] [address] [place] Nitrite,Urine Negative Normal Negative [facility] Comment on above: Order Comment: Name Collection Type:: Ruiz Catheter Performed By: #### C UU, ADDONUAPLUS #### [address] Occult Blood,Urine 3+ High Negative [facility] Comment on above: Order Comment: Name Collection Type:: Ruiz Catheter Result Comment: PERF ORMED BY: [place] [address] PATHOLOGIST SAMPLE P[employer]ER RADHA MANNING M.D. Performed By: #### C UU, ADDONUAPLUS #### [address] pH (U) 5.5 [pH] Normal 5.0-9.0 [facility] Comment on above: Order Comment: Name Collection Type:: Ruiz Catheter Performed By: #### C UU, ADDONUAPLUS #### [address] Protein (U) [Mass/Vol] 50 mg/dL High Negative [facility] Comment on above: Order Comment: Name Collection Type:: Ruiz Catheter Performed By: #### C UU, ADDONUAPLUS #### [address] RBC,Urine 50-100 High 0-4 [facility] Comment on above: Order Comment: Name Collection Type:: Ruiz Catheter Performed By: #### C UU, ADDONUAPLUS #### [address] Specificy [place],Urine 1.011 Normal 1.00 1-1.03 0 [facility] Comment on above: Order Comment: Name Collection Type:: Ruiz Catheter Performed By: #### C UU, ADDONUAPLUS #### [address] Squamous Epithelial Cell,Urine 3-4 High 0-2 [facility] Comment on above: Order Comment: Name Collection Type:: Ruiz Catheter Performed By: #### C UU, ADDONUAPLUS #### [address] Urobilinogen,Urine Normal Normal Normal [facility] Comment on above: Order Comment: Name Collection Type:: Ruiz Catheter Performed By: #### C UU, ADDONUAPLUS #### [address] WBC CLUMP, Urine Many High None Seen [facility] Comment on above: Order Comment: Name Collection Type:: Ruiz Catheter Performed By: #### C UU, ADDONUAPLUS #### [address] WBC,Urine Innumerable High 0-4 [facility] Comment on above: Order Comment: Name Collection Type:: Ruiz Catheter Performed By: #### C UU, ADDONUAPLUS #### [place] [address] [place] Epithelial cells.squamous [# /area] in Urine sediment by Automated countOrdered By: Tobi Monroy on 04-12-2024 Epithelial cells.squamous Auto (Urine sed) [#/Area] Epithelial cells.squamous [#/area] in Urine sediment by Automated count High 0-[address] [facility] Erythrocytes [#/area] in Uri ne sediment by Automated countOrdered By: Tobi Monroy on 04-12-2024 RBC Auto (Urine sed) [#/Area] Erythrocytes [#/area] in Urine sediment by Automated count High 0-[address] [facility] Glucose [Mass/volume] in Uri ne by Test stripOrdered By: Tobi Monroy on 04-12-2024 Glucose Test strip (U) [Mass/Vol] Glucose [Mass/volume] in Urine by Test strip Normal [facility] Hemoglobin Test strip Ql (U) Ordered By: Tobi Monroy on 04-12-2024 Hemoglobin Ql (U) Hemoglobin [Presence ] in Urine by Test strip [facility] Negative [facility] Heparin anti-Xa unfractionat edOrdered By: Keron Gutierres on 04-12-2024 Heparin unfractionated Chromogenic method Qn (PPP) Heparin anti-Xa unfractionated 0.30-0.[address] [facility] Comment on above: Use the aPTT protoco [...] [#/area] in Urine sediment by Automated count [facility] 0-[address] [facility] Ketones Test strip Ql (U)Ord ered By: Tobi Monroy on 04-12-2024 Ketones Ql (U) Ketones [Presence] i n Urine by Test strip [facility] Negative [facility] Leukocyte clumps [Presence] in Urine by AutomatedOrdered By: Tobi Monroy on 04-12-2024 Leukocyte clumps Auto Ql (U) Leukocyte clumps [Presence] in Urine by Automated High None Seen [facility] Leukocyte esterase [Presence ] in Urine by Test stripOrdered By: Tobi Monroy on 04-12-2024 Leukocyte esterase Test strip Ql (U) Leukocyte esterase [Presence] in Urine by Test strip High Negative [facility] Leukocytes [#/area] in Urine sediment by Automated countOrdered By: Tobi Monroy on 04-12-2024 WBC Auto (Urine sed) [#/Area] Leukocytes [#/area] in Urine sediment by Automated count High 0-[address] [facility] Mucus [Presence] in Urine by AutomatedOrdered By: Tobi Monroy on 04-12-2024 Mucus Auto Ql (U) Mucus [Presence] in Urine by Automated Abnormal [facility] Nitrite Test strip Ql (U)Ord ered By: Tobi Monroy on 04-12-2024 Nitrite Ql (U) Nitrite [Presence] i n Urine by Test strip Negative [facility] Protein Creat Ratio Ur Rando mon 04-12-2024 Creatinine, Urine (Random) 102.00 mg/dL Normal [facility] Comment on above: Result Comment: No r eference range established Performed By: #### C UU, ADDONUAPLUS #### [facility] [address] [place] [address] Protein (U) [Mass/Vol] 44 mg/dL High 0-9 [facility] Comment on above: Performed By: #### C UU, ADDONUAPLUS #### [facility] [address] Urine Protein/Creatinine Ratio 431 mg/g{Cre} High 0-200 [facility] Comment on above: Result Comment: PERF ORMED BY: [place] [address] PATHOLOGIST SAMPLE PULLER RADHA MANNING M.D. Performed By: #### C UU, ADDONUAPLUS #### [facility] [address] [place] [id number] [place] Protein Test strip (U) [Mass /Vol]Ordered By: Tobi Monroy on 04-12-2024 Protein (U) [Mass/Vol] Protein [Mass/vol ume] in Urine by Test strip High Negative [facility] Protein [Mass/volume] in Uri neOrdered By: Tobi Monroy on 04-12-2024 Protein (U) [Mass/Vol] Protein [Mass/vol ume] in Urine High 0-[address] [facility] Specific gravity Test strip (U) [Rel density]Ordered By: Tobi Monroy on 04-12-2024 Specific gravity (U) [Rel density] Specific gravity of Urine by Test strip 1.001-1.[address] [facility] US renal BIon 04-12-2024 US renal BI [facility] [place] [place] [address] Ultrasound Report Signed Patient: Corwin Muller MR#: [id number] : 1945 Acct:[id number] Age/Sex: 79 / M ADM Date: 04/10/24 Loc: Room: [address] [place] [address] Type: ADM IN Attending Dr: Jersey Bess [...] Jones Pedro M.D.04/12/2024 9:34 PM Dictation Location: [place] [address] Tech: Lacey Archer Transcribed By: RK 04/12/242133 Dictated By: Jones Pedro II, MD 04/12/242132 Signed By: 04/12/242133 Normal [facility] Urine Cultureon 04-12-2024 Bacteria identified Cx Nom (U) ORGANISM: Staphylococcus epidermidis (O:STAEPI) Clyman Count >100,000 Aerobic JONATHAN Charge (PCMIC38) SUSCEPTIBILITY [...] RESISTANT TO ALL B-LACTAM DRUGS. PERFORMED BY: [place] [address] PATHOLOGIST SAMPLE PULLER RADHA MANNING M.D. Normal [facility] Comment on above: Performed By: #### C J LUIS BUCHANANPLUS #### [address] Urine cultureOrdered By: Qing reyes Eliana on 04-12-2024 Bacteria identified Cx Nom (U) Abnormal [facility] Urine protein/creatinine rat ioOrdered By: Tobi Eliana on 04-12-2024 Protein/Creatinine (U) [Ratio] Urine protein/creatinine ratio High 0-[address] [facility] Urobilinogen Test strip (U) [Mass/Vol]Ordered By: Tobi Eliana on 04-12-2024 Urobilinogen (U) [Mass/Vol] Urobilinogen [Mass/volume] in Urine by Test strip Normal [facility] Yeast.budding [Presence] in Urine by Computer assisted methodOrdered By: Tobi Monroy on 04-12-2024 Yeast.budding Computer assisted Ql (U) Yeast.budding [Presence] in Urine by Computer assisted method High None Seen [facility] pH Test strip (U)Ordered By: Tobi Monroy on 04-12-2024 pH (U) pH of Urine by Test strip 5.0-9.[address] [facility] Anti-Xa UF Heparinon 025 Anti-Xa UF Heparin 0.24 [IU]/mL Low 0.30-0.70 [facility] Comment on above: Result Comment: Use the aPTT protocol when triglycerides are > 800 mg/dL, total bilirubin is > 20 mg/dL and/or patient has received a DOAC, Fondaparinux or LMWH within 72 hours AND baseline anti-Xa level is > 0.7 units/mL PERFORMED BY: [place] [address] PATHOLOGIST SAMPLE PULLER RADHA MANNING M.D. Performed By: #### U FHEP #### [facility] [address] [place] [address] Anti-Xa UF Heparin 0.56 [IU]/mL Normal 0.30-0.70 [facility] Comment on above: Result Comment: Use the aPTT protocol when triglycerides are > 800 mg/dL, total bilirubin is > 20 mg/dL and/or patient has received a DOAC, Fondaparinux or LMWH within 72 hours AND baseline anti-Xa level is > 0.7 units/mL PERFORMED BY: [place] [address] PATHOLOGIST SAMPLE PULLER RADHA MANNING M.D. Performed By: #### C UU, ADDONUAPLUS #### [facility] [address] [place] [address] Complete Blood Count Auto Di ffon 04-11-2024 Basophils (Bld) [#/Vol] 0.0 10*3/uL Normal 0.0-0.2 [facility] Comment on above: Result Comment: PERF ORMED BY: [place] [address] PATHOLOGIST SAMPLE PULLER RADHA MANNING M.D. Performed By: #### C UU, ADDONUAPLUS #### [address] Basophils/100 WBC (Bld) 0.4 % Normal . T felipe [facility] Comment on above: Performed By: #### C UU, ADDONUAPLUS #### [address] Eosinophils (Bld) [#/Vol] 0.4 10*3/uL Normal 0.0-0.45 [facility] Comment on above: Performed By: #### C UU, ADDONUAPLUS #### [address] Eosinophils/100 WBC (Bld) 4.3 % Normal . [facility] Comment on above: Performed By: #### C UU, ADDONUAPLUS #### [address] Erythrocyte distribution width (RBC) [Ratio] 14.3 % Normal 12.0-14.8 [facility] Comment on above: Performed By: #### C UU, ADDONUAPLUS #### [address] Hematocrit (Bld) [Volume fraction] 42.1 % Normal 38.8-50.0 [facility] Comment on above: Performed By: #### C UU, ADDONUAPLUS #### [address] Hemoglobin (Bld) [Mass/Vol] 14.6 g/dL Normal 13.0-17.0 [facility] Comment on above: Performed By: #### C UU, ADDONUAPLUS #### [address] Lymphocytes (Bld) [#/Vol] 2.0 10*3/uL Normal 1.00-4.8 [facility] Comment on above: Performed By: #### C UU, ADDONUAPLUS #### [address] Lymphocytes/100 WBC (Bld) 21.4 % Normal . [facility] Comment on above: Performed By: #### C UU, ADDONUAPLUS #### [address] MCH (RBC) [Entitic mass] 30.6 pg Normal 27.5-35.2 [facility] Comment on above: Performed By: #### C UU, ADDONUAPLUS #### [address] MCV (RBC) [Entitic vol] 88.1 fL Normal 83.5-101 T [facility] Comment on above: Performed By: #### C UU, ADDONUAPLUS #### [address] Mean Corpuscular HGB Conc 34.7 g/dL Normal 32.5-35.6 [facility] Comment on above: Performed By: #### C UU, ADDONUAPLUS #### [place] [address] [place] Monocytes (Bld) [#/Vol] 1.0 10*3/uL High 0.0-0.8 [facility] Comment on above: Performed By: #### C UU, ADDONUAPLUS #### [place] [address] [place] Monocytes/100 WBC (Bld) 10.9 % Normal . T [facility] Comment on above: Performed By: #### C UU, ADDONUAPLUS #### [place] [address] [place] Neutrophils (Bld) [#/Vol] 5.9 10*3/uL Normal 1.8-7.7 [facility] Comment on above: Performed By: #### C UU, ADDONUAPLUS #### [place] [address] [place] Neutrophils/100 WBC (Bld) 63.0 % Normal . [facility] Comment on above: Performed By: #### C UU, ADDONUAPLUS #### [address] NRBC% 0.1 /100{WBC} Normal 0-0.5 [facility] Comment on above: Performed By: #### C UU, ADDONUAPLUS #### [address] Platelet mean volume (Bld) [Entitic vol] 8.1 fL Normal 6.6-10.1 [facility] Comment on above: Performed By: #### C UU, ADDONUAPLUS #### [address] Platelets (Bld) [#/Vol] 255 10*3/uL Normal 150-450 [facility] Comment on above: Performed By: #### C UBarbara, ADDONUAPLUS #### [address] RBC (Bld) [#/Vol] 4.78 10*6/uL Normal 3.90-5.60 [facility] Comment on above: Performed By: #### C UBarbara, ADDONUAPLUS #### [address] WBC (Bld) [#/Vol] 9.4 10*3/uL Normal 4.1-10.5 [facility] Comment on above: Performed By: #### C UU, ADDONUAPLUS #### [address] Comprehensive Metabolic Pane nazanin 04-11-2024 Albumin [Mass/Vol] 3.6 g/dL Normal 3.5-5.7 [facility] Comment on above: Performed By: #### C UU, ADDONUAPLUS #### [address] Albumin/Globulin [Mass ratio] 1.3 {ratio} Normal [facility] Comment on above: Performed By: #### C UU, ADDONUAPLUS #### [address] ALP [Catalytic activity/Vol] 50 U/L Normal 34-104 [facility] Comment on above: Performed By: #### C UU, ADDONUAPLUS #### [address] ALT [Catalytic activity/Vol] 14 U/L Normal 7-52 [facility] Comment on above: Performed By: #### C UU, ADDONUAPLUS #### [address] Anion gap [Moles/Vol] 12.5 mmol/L Normal 6.0-15.0 Th [facility] Comment on above: Performed By: #### C UU, ADDONUAPLUS #### [address] AST [Catalytic activity/Vol] 19 U/L Normal 13-39 [facility] Comment on above: Performed By: #### C UU, ADDONUAPLUS #### [address] Bilirubin [Mass/Vol] 1.0 mg/dL Normal 0.3-1.0 [facility] Comment on above: Performed By: #### C UU, ADDONUAPLUS #### [place] [address] [place] Calcium [Mass/Vol] 8.7 mg/dL Normal 8.6-10.3 [facility] Comment on above: Performed By: #### C UU, ADDONUAPLUS #### [place] [address] [place] Chloride [Moles/Vol] 104 mmol/L Normal 98-107 [facility] Comment on above: Performed By: #### C UU, ADDONUAPLUS #### [place] [address] [place] CO2 [Moles/Vol] 25.6 mmol/L Normal 21.0-31.0 [facility] Comment on above: Performed By: #### C UU, ADDONUAPLUS #### [address] Creatinine [Mass/Vol] 2.34 mg/dL High 0.70-1.30 [facility] Comment on above: Performed By: #### C UU, ADDONUAPLUS #### [address] Creatinine Clr Calc Pharmacy 30.91 Normal [facility] Comment on above: Result Comment: PERF ORMED BY: [place] [address] PATHOLOGIST SAMPLE PULLER RADHA MANNING M.D. Performed By: #### C UU, ADDONUAPLUS #### [address] Estimated GFR 27.431 mL/Min Normal [facility] Comment on above: Performed By: #### C UU, ADDONUAPLUS #### [address] Globulin (S) [Mass/Vol] 2.8 g/dL Normal T [facility] Comment on above: Performed By: #### C UU, ADDONUAPLUS #### [address] Glucose [Mass/Vol] 95 mg/dL Normal 70-100 [facility] Comment on above: Result Comment: [facility] Glucose Reference Range is dependent on time and content of last meal. Glucose of more than 200 mg/dL in a nonstressed, ambulatory subject supports the diagnosis of Diabetes Mellitus. ADA recommended reference range Performed By: #### C UU, ADDONUAPLUS #### [address] Potassium [Moles/Vol] 3.1 mmol/L Low 3.5-5.1 [facility] Comment on above: Performed By: #### C UU, ADDONUAPLUS #### [address] Protein [Mass/Vol] 6.4 g/dL Normal 6.4-8.9 [facility] Comment on above: Performed By: #### C UU, ADDONUAPLUS #### [facility] [address] [place] [address] Sodium [Moles/Vol] 139 mmol/L Normal 136-145 [facility] Comment on above: Performed By: #### C UU, ADDONUAPLUS #### [facility] [address] [place] [address] Urea nitrogen [Mass/Vol] 30 mg/dL High 7-25 [facility] Comment on above: Performed By: #### C UU, ADDONUAPLUS #### [facility] [address] [place] [address] ECG 12 lead ECGon 04-11-2024 ECG 12 lead ECG [facility] [place] [address] [place] [address] Electrocardiograph Report Signed Patient: Corwin Muller MR#: [id number] : 1945 Acct:[id number] Age/Sex: 79 / M ADM Date: 04/10/24 Loc: Room: [address] [place] [address] Type: ADM IN Attending Dr: Jersey Bess [...] replaced Sinus rhythm Confirmed by Bubba Jessica ([id number]) on 04/11/2024 2:15:02 PM Referred By: Electronically Signed By: Bubba Jessica Transcribed By: MUS Signed By Bubba Jessica MD 04/11/24 1415 Normal [facility] Anti-Xa UF Heparinon 025 Anti-Xa UF Heparin <0.04 Low 0.30-0.70 [facility] Comment on above: Result Comment: Use the aPTT protocol when triglycerides are > 800 mg/dL, total bilirubin is > 20 mg/dL and/or patient has received a DOAC, Fondaparinux or LMWH within 72 hours AND baseline anti-Xa level is > 0.7 units/mL PERFORMED BY: [place] [address] PATHOLOGIST SAMPLE PULLER RADHA MANNING M.D. Performed By: #### P P, UFHEP, HS TROP #### [address] Basic Metabolic Panelon 03-23 Anion gap [Moles/Vol] 12.0 mmol/L Normal 6.0-15.0 [facility] Comment on above: Performed By: #### C UU, ADDONUAPLUS #### [address] Calcium [Mass/Vol] 9.2 mg/dL Normal 8.6-10.3 [facility] Comment on above: Performed By: #### C UU ADDONUAPLUS #### [address] Chloride [Moles/Vol] 108 mmol/L High 98-107 [facility] Comment on above: Performed By: #### C UU, ADDONUAPLUS #### [address] CO2 [Moles/Vol] 22.6 mmol/L Normal 21.0-31.0 [facility] Comment on above: Performed By: #### C UU, ADDONUAPLUS #### [address] Creatinine [Mass/Vol] 2.36 mg/dL High 0.70-1.30 [facility] Comment on above: Performed By: #### C UU, ADDONUAPLUS #### [address] Creatinine Clr Calc Pharmacy 30.65 Normal [facility] Comment on above: Performed By: #### C UU, ADDONUAPLUS #### [facility] [address] [place] [address] [place] Estimated GFR 27.152 mL/Min Normal [facility] Comment on above: Performed By: #### C UU, ADDONUAPLUS #### [facility] [address] [place] [address] [place] Glucose [Mass/Vol] 109 mg/dL High 70-100 [facility] Comment on above: Result Comment: [facility] Glucose Reference Range is dependent on time and content of last meal. Glucose of more than 200 mg/dL in a nonstressed, ambulatory subject supports the diagnosis of Diabetes Mellitus. ADA recommended reference range Performed By: #### C UU, ADDONUAPLUS #### [facility] [address] Potassium [Moles/Vol] 3.6 mmol/L Normal 3.5-5.1 [facility] Comment on above: Performed By: #### C UU, ADDONUAPLUS #### [facility] [address] [place] [address] [place] Sodium [Moles/Vol] 139 mmol/L Normal 136-145 [facility] Comment on above: Performed By: #### C UU, ADDONUAPLUS #### [place] [address] [place] Urea nitrogen [Mass/Vol] 28 mg/dL High 7-25 [facility] Comment on above: Performed By: #### C UU, ADDONUAPLUS #### [facility] [address] [place] [address] [place] Cholesterol [Mass/volume] in Serum or PlasmaOrdered By: Holly Weinberg on 04-10-2024 Cholesterol [Mass/Vol] Cholesterol [Mass /volume] in Serum or Plasma 140-[address] [facility] Comment on above: Chol less than 200 m g/dl low riskChol 201-239 mg/dl borderline riskChol 240 mg/dl and greater high risk Cholesterol in HDL [Mass/vol ume] in Serum or PlasmaOrdered By: Holly Weinberg on 04-10-2024 Cholesterol in HDL [Mass/Vol] Serum or plasma high density lipoprotein (HDL) cholesterol measurement [address] [facility] Comment on above: HDL CHOL ATP-III CLA SSIFICATION Cardiovascular RiskHDL > or equal to 60 mg/dL LOWHDL < 40 mg/dL HIGH Cholesterol in LDL Calc [Mas s/Vol]Ordered By: Holly Weinberg on 04-10-2024 Cholesterol in LDL [Mass/Vol] Cholesterol in LDL [Mass/volume] in Serum or Plasma by calculation High 0-[address] [facility] Comment on above: LDL ATP III CLASSIFI CATIONLDL less than 100 mg/dL OptimalLDL 100-129 mg/dL Near or above optimalLDL 130-159 mg/dL Borderline highLDL 160-189 mg/dL HighLDL greater than 189 mg/dL Very high Cholesterol in VLDL Calc [Ma ss/Vol]Ordered By: Holly Weinberg on 04-10-2024 Cholesterol in VLDL [Mass/Vol] Cholesterol in VLDL [Mass/volume] in Serum or Plasma by calculation [facility] Coagulation Profileon 2024 aPTT Coag (Bld) [Time] 28.8 s Normal 25.1-36.5 [facility] Comment on above: Result Comment: A he matocrit value greater than 55% may lead to inaccurate results in coagulation testing. Patients having hematocrit values >55% require a special collection tube for coagulation studies. Please contact the laboratory at [phone] for redraw instructions. Performed By: #### P P, UFHEP, HS TROP #### [facility] [address] INR Coag (PPP) [Relative time] 1.2 {INR} Normal [facility] Comment on above: Result Comment: [...] #### P P, UFHEP, HS TROP #### [address] PT Coag (PPP) [Time] 13.2 s High 9.0-12.9 [facility] Comment on above: Result Comment: A matocrit value greater than 55% may lead to inaccurate results in coagulation testing. Patients having hematocrit values >55% require a special collection tube for coagulation studies. Please contact the laboratory at [phone] for redraw instructions. Performed By: #### P P, UFHEP, HS TROP #### [address] Complete Blood Count Auto Di ffon 04-10-2024 Basophils (Bld) [#/Vol] 0.1 10*3/uL Normal 0.0-0.2 [facility] Comment on above: Result Comment: PERF ORMED BY: [place] [address] PATHOLOGIST SAMPLE PULLER RADHA MANNING M.D. Performed By: #### C UU, ADDONUAPLUS #### [address] Basophils/100 WBC (Bld) 0.7 % Normal . T [facility] Comment on above: Performed By: #### C UU, ADDONUAPLUS #### [address] Eosinophils (Bld) [#/Vol] 0.3 10*3/uL Normal 0.0-0.45 [facility] Comment on above: Performed By: #### C UU, ADDONUAPLUS #### [address] Eosinophils/100 WBC (Bld) 2.4 % Normal . [facility] Comment on above: Performed By: #### C UU, ADDONUAPLUS #### [address] Erythrocyte distribution width (RBC) [Ratio] 14.3 % Normal 12.0-14.8 [facility] Comment on above: Performed By: #### C UU, ADDONUAPLUS #### [address] Hematocrit (Bld) [Volume fraction] 44.8 % Normal 38.8-50.0 [facility] Comment on above: Performed By: #### C UU, ADDONUAPLUS #### [address] Hemoglobin (Bld) [Mass/Vol] 15.1 g/dL Normal 13.0-17.0 [facility] Comment on above: Performed By: #### C UU, ADDONUAPLUS #### [address] Lymphocytes (Bld) [#/Vol] 2.0 10*3/uL Normal 1.00-4.8 [facility] Comment on above: Performed By: #### C UU, ADDONUAPLUS #### [address] Lymphocytes/100 WBC (Bld) 17.3 % Normal . [facility] Comment on above: Performed By: #### C UU, ADDONUAPLUS #### [address] MCH (RBC) [Entitic mass] 30.0 pg Normal 27.5-35.2 [facility] Comment on above: Performed By: #### C UU, ADDONUAPLUS #### [address] MCV (RBC) [Entitic vol] 88.7 fL Normal 83.5-101 [facility] Comment on above: Performed By: #### C UU, ADDONUAPLUS #### [address] Mean Corpuscular HGB Conc 33.8 g/dL Normal 32.5-35.6 [facility] Comment on above: Performed By: #### C UU, ADDONUAPLUS #### [address] Monocytes (Bld) [#/Vol] 1.1 10*3/uL High 0.0-0.8 [facility] Comment on above: Performed By: #### C UU, ADDONUAPLUS #### [address] Monocytes/100 WBC (Bld) 10.0 % Normal . T felipe [facility] Comment on above: Performed By: #### C UU, ADDONUAPLUS #### [address] Neutrophils (Bld) [#/Vol] 7.9 10*3/uL High 1.8-7.7 [facility] Comment on above: Performed By: #### C UU, ADDONUAPLUS #### [address] Neutrophils/100 WBC (Bld) 69.6 % Normal . [facility] Comment on above: Performed By: #### C UU, ADDONUAPLUS #### [address] NRBC% 0.1 /100{WBC} Normal 0-0.5 [facility] Comment on above: Performed By: #### C UU, ADDONUAPLUS #### [address] Platelet mean volume (Bld) [Entitic vol] 8.3 fL Normal 6.6-10.1 [facility] Comment on above: Performed By: #### C UU, ADDONUAPLUS #### [address] Platelets (Bld) [#/Vol] 252 10*3/uL Normal 150-450 [facility] Comment on above: Performed By: #### C UU, ADDONUAPLUS #### [address] RBC (Bld) [#/Vol] 5.05 10*6/uL Normal 3.90-5.60 [facility] Comment on above: Performed By: #### C UU, ADDONUAPLUS #### [facility] [address] [place] [address] WBC (Bld) [#/Vol] 11.3 10*3/uL High 4.1-10.5 [facility] Comment on above: Performed By: #### C CHANEL ADDCARIDADUAPLUS #### [address] ECG 12 lead ECGon 04-10-2024 ECG 12 lead ECG [facility] [place] [address] Electrocardiograph Report Signed Patient: Corwin Muller MR#: [id number] : 1945 Acct:[id number] Age/Sex: 79 / M ADM Date: 04/10/24 Loc: Room: [address] [place] [address] Type: ADM IN Attending Dr: Jersey Bess [...] in Lateral leads Confirmed by Bubba Jessica ([id number]) on 04/11/2024 2:09:58 PM Referred By: Electronically Signed By: Bubba Jessica Transcribed By: MUS Signed By Bubba Jessica MD 04/11/24 1410 Normal [facility] ECG 12 lead ECG [facility] [place] [place] [address] Electrocardiograph Report Signed Patient: Corwin Muller MR#: [id number] : 1945 Acct:[id number] Age/Sex: 79 / M ADM Date: 04/10/24 Loc: Room: [address] [place] [address] Type: ADM IN Attending Dr: Jersey Bess [...] rhythm, needs review Confirmed by Bubba Jessica ([id number]) on 04/10/2024 2:56:03 PM Referred By: Electronically Signed By: Bubba Jessica Transcribed By: MUS Signed By Bubba Jessica MD 04/10/24 1456 Normal [facility] ECG 12 lead ECG [facility] [place] [address] Electrocardiograph Report Signed Patient: Corwin Muller MR#: [id number] : 1945 Acct:[id number] Age/Sex: 79 / M ADM Date: 04/10/24 Loc: Room: [address] [place] [address] Type: ADM IN Attending Dr: Jersey Bess [...] , age undetermined Confirmed by Bubba Jessica ([id number]) on 04/10/2024 3:54:01 PM Referred By: Electronically Signed By: Bubba Jessica Transcribed By: MUS Signed By Bubba Jessica MD 04/10/24 1554 Normal [facility] echo transthoracicon [facility] echo transthoracic [facility] Main [place] [address] [place], [place] [id number] Echocardiogram Signed Patient: Corwin Muller MR#: [id number] : 1945 Acct:[id number] Age/Sex: 79 / M ADM Date: 04/10/24 Loc: Room: 1F7461-1 Type: ADM IN Attending Dr: Jersey Bess MD Ordering Provider: Holly Weinberg APRN Date of Service: 04/10/24 [facility] echo transthoracic: chf, nstemi Copies to: MD Holly Ledesma, TEST RACK OPERATOR Height: 76 in Weight: 228 lb Performed [...] Bubba Jessica MD 04/10/24 1414 Normal [facility] INR in Platelet poor plasma by Coagulation assayOrdered By: Kurtis Langley on 04-10-2024 INR Coag (PPP) [Relative time] INR in Platelet poor plasma by Coagulation assay [facility] Comment on above: INR Therapeutic Rang e [...] [Mass/Vol] 168 mg/dL Normal 140-200 [facility] Group Comment on above: Result Comment: Chol less than 200 mg/dl low risk Chol 201-239 mg/dl borderline risk Chol 240 mg/dl and greater high risk Performed By: #### P P, UFHEP, HS TROP #### [address] Cholesterol in HDL [Mass/Vol] 26 mg/dL Normal 23-92 [facility] Comment on above: Result Comment: HDL CHOL ATP-III CLASSIFICATION Cardiovascular Risk HDL > or equal to 60 mg/dL LOW HDL < 40 mg/dL HIGH Performed By: #### P P, UFHEP, HS TROP #### [address] Cholesterol.total/Rowan sterol in HDL [Mass ratio] 6.5 {ratio} Normal <5.0 [facility] Comment on above: Result Comment: PERF ORMED BY: [place] [address] PATHOLOGIST SAMPLE PULLER RADHA MANNING M.D. Performed By: #### P P, UFHEP, HS TROP #### [address] LDL Cholesterol,Calculated 120 mg/dL High 0-100 [facility] Comment on above: Result Comment: LDL ATP III CLASSIFICATION LDL less than 100 mg/dL Optimal LDL 100-129 mg/dL Near or above optimal LDL 130-159 mg/dL Borderline high LDL 160-189 mg/dL High LDL greater than 189 mg/dL Very high Performed By: #### P P, UFHEP, HS TROP #### [place] [address] [place] Triglyceride w/Reflex 108 mg/dL Normal 0-149 [facility] Comment on above: Result Comment: TRIG ATP III CLASSIFICATION TRIG less than 150 mg/dL Normal TRIG 150-199 mg/dL Borderline high TRIG 200-500 mg/dL High TRIG greater than 500 mg/dL Very high Standard traceable to the Center for Disease Conrtrol and Prevention (CDC) test method. Performed By: #### P P, UFHEP, HS TROP #### [address] VLDL CHOLESTEROL 21 mg/dL Normal [facility] Comment on above: Performed By: #### P P, UFHEP, HS TROP #### [facility] [address] [id number] [place] Magnesiumon 04-10-2024 Magnesium [Mass/Vol] 2.0 mg/dL Normal 1.9-2.7 [facility] Comment on above: Performed By: #### P P, UFHEP, HS TROP #### [facility] [address] [id number] [facility] Prothrombin time (PT)Ordered By: Kurtis Langley on 04-10-2024 PT Coag (PPP) [Time] Prothrombin time (PT) High 9.0- 12.[address] [facility] Comment on above: A hematocrit value g reater than 55% may lead to inaccurate results in coagulation testing. Patients having hematocrit values >55% require a special collection tube for coagulation studies. Please contact the laboratory at [phone] for redraw instructions. Serum or plasma total choles terol/high density lipoprotein (HDL) cholesterol mass ratOrdered By: Holly Weinberg on 04-10-2024 Cholesterol.total/Rowan sterol in HDL [Mass ratio] Serum or plasma total cholesterol/high density lipoprotein (HDL) cholesterol mass rat <5.[address] [facility] Triglyceride [Mass/volume] i n Serum or PlasmaOrdered By: Holly Weinberg on 04-10-2024 Triglyceride [Mass/Vol] Triglyceride [Ma ss/volume] in Serum or Plasma 0-[address] [facility] Comment on above: TRIG ATP III CLASSIF ICATIONTRIG less than 150 mg/dL NormalTRIG 150-199 mg/dL Borderline highTRIG 200-500 mg/dL High TRIG greater than 500 mg/dL Very highStandard traceable to the Center for Disease Conrtrol and Prevention (CDC) test method. Troponin I High Sensitivityo n 04-10-2024 Troponin I High Sensitivity 639 Off scale high 0-20 [facility] Comment on above: Result Comment: Crit ical Result : Called to and read back by: GI CRUM at: 04/10/2024 08:50:14 by:[id number] The Troponin units of report have been changed to meet the Chest Pain Accreditation requirement, element EC5.M1l2. Troponin units are changed from pg/ml to ng/L. Also, the decimal is removed and results are in whole numbers. PERFORMED BY: [place] [address] PATHOLOGIST SAMPLE PULLER RADHA MANNING M.D. Performed By: #### P P, UFHEP, HS TROP #### [address] [address] [facility] Troponin I High Sensitivity 815 Off scale high 0-20 [facility] Comment on above: Result Comment: Crit ical Result : Called to and read back by: ETHEL MILLARD at: 04/10/2024 04:08:18 by:[email or web address] The Troponin units of report have been changed to meet the Chest Pain Accreditation requirement, element EC5.M1l2. Troponin units are changed from pg/ml to ng/L. Also, the decimal is removed and results are in whole numbers. PERFORMED BY: [place] [address] PATHOLOGIST SAMPLE PULLER RADHA MANNING M.D. Performed By: #### P P, UFHEP, HS TROP #### [address] [address] [facility] Troponin I.cardiac [Mass/vol ume] in Serum or Plasma by Detection limit <= 0.01 ng/Ordered By: Holly Weinberg on 04-10-2024 Troponin I.cardiac DL <= 0.01 ng/mL [Mass/Vol] Troponin I.cardiac [Mass/volume] in Serum or Plasma by Detection limit <= 0.01 ng/ Critically high 0-[address] [facility] Comment on above: Critical Result : Ca lled to and read back by: GI CRUM at: 04/10/2024 08:50:14 by:[id number] Troponin units of report have been changed to meet the Chest Pain Accreditation requirement, element EC5.M1l2. Troponin units are changed from pg/ml to ng/L. Also, the decimal is removed and results are in whole numbers. X-ray reportOrdered By: Jose A Jenkins on 04-10-2024 Study report [facility] [address] [address] XRay Report Signed Patient: Corwin Muller MR#: [id number] : 1945 Acct:[id number] Age/Sex: 79 / M ADM Date: Loc: 4C Room: [address] [place] [address] Type: ADM IN Attending Dr: Jersey Bess [...] Maximilian Jenkins M.D.04/10/2024 8:47 AM Dictation Location: [place] [address] Transcribed By: RK 04/10/24 0847 Dictated By: Maximilian Jenkins MD 04/10/24 0845 Signed By: 04/10/[address] [facility] Work Phone: XR chest 1V portableon 04-10 XR chest 1V portable [address] [address] XRay Report Signed Patient: Corwin Muller MR#: [id number] : 1945 Acct:[id number] Age/Sex: 79 / M ADM Date: 04/10/24 Loc: 4C Room: [address] [place] [address] Type: ADM IN Attending Dr: Jersey Bess [...] Maximilian Jenkins M.D.04/10/2024 8:47 AM Dictation Location: [place] [address] Transcribed By: RK 04/10/2447 Dictated By: Maximilian Jenkins MD 04/10/2445 Signed By: 04/10/2447 Normal [facility] aPTT in Platelet poor plasma by Coagulation assayOrdered By: Kurtis Langley on 04-10-2024 aPTT Coag (PPP) [Time] Activated partial thromboplastin time (aPTT) in platelet poor plasma by coagulation a 25.1-36.[address] [facility] Comment on above: A hematocrit value g reater than 55% may lead to inaccurate results in coagulation testing. Patients having hematocrit values >55% require a special collection tube for coagulation studies. Please contact the laboratory at [phone] for redraw instructions. Activated partial thrombopla stin time (aPTT) in platelet poor plasma by coagulation aon 04-09-2024 aPTT Coag (PPP) [Time] Activated partial thromboplastin time (aPTT) in platelet poor plasma by coagulation a 22.3-36.[address] [facility] Basophils Auto (Bld) [#/Vol] on 04-09-2024 Basophils (Bld) [#/Vol] Automated basophil count 0.0-0.[address] [facility] Basophils/100 WBC Auto (Bld) on 04-09-2024 Basophils/100 WBC (Bld) Automated basophil % 0. 2-2.[address] [facility] Eosinophils/100 WBC Auto (Bl d)on 04-09-2024 Eosinophils/100 WBC (Bld) Automated eosinophil % 0.9-7.[address] [facility] Erythrocyte distribution wid th Auto (RBC) [Ratio]on 04-09-2024 Erythrocyte distribution width (RBC) [Ratio] Erythrocyte distribution width [Ratio] by Automated count 11.0-15.[address] [facility] Estimated glomerular filtrat ion rate (GFR) non- Americanon 04-09-2024 GFR/1.73 sq M.predicted among non-blacks MDRD (S/P/Bld) [Vol rate/Area] Estimated glomerular filtration rate (GFR) non- Low >=60 mL/min/1.7 3m [address] [facility] Hematocrit Auto (Bld) [Volum e fraction]on 04-09-2024 Hematocrit (Bld) [Volume fraction] Hematocrit [Volume Fraction] of Blood by Automated count 42.0-54.[address] [facility] Hemoglobin [Mass/volume] in Bloodon 04-09-2024 Hemoglobin (Bld) [Mass/Vol] Hemoglobin [Mass/volume] in Blood 14.0-18.[address] [facility] INR in Platelet poor plasma by Coagulation assayon 04-09-2024 INR Coag (PPP) [Relative time] INR in Platelet poor plasma by Coagulation assay [facility] Comment on above: DESIRED INR:2.0-3.0 CONDITIONS NOT LISTED BELOW2.5-3.5 FOR PROSTHETIC HEART VALVE REPLACEMENT2.5-3.5 RECURRENT THROMBOSIS Laboratory - Chemistry and C hemistry - challengeon 04-09-2024 Calcium [Mass/Vol] 9.4 mg/dL 8.5-10.1 [facility] Chloride [Moles/Vol] 103 mmol/L 98-107 [facility] CO2 [Moles/Vol] 24.6 mmol/L 21.0-32.0 [facility] Creatinine [Mass/Vol] 2.62 mg/dL High 0.70-1.30 [facility] GFR/1.73 sq M.predicted MDRD (S/P/Bld) [Vol rate/Area] 29 mL/min/{1.73_m2} Low >=60 mL/min/1.7 3m [address] [facility] Glucose [Mass/Vol] 108 mg/dL High 74-106 [facility] Magnesium [Mass/Vol] 2.0 mg/dL 1.8-2.4 [facility] Natriuretic peptide B (Bld) [Mass/Vol] 8857.0 pg/mL Critically high <=1800.[address] [facility] Comment on above: RESULTS CALLED TO Dr Nathaniel Parker Potassium [Moles/Vol] 3.7 mmol/L 3.5-5.1 [facility] Sodium [Moles/Vol] 137 mmol/L 136-145 [facility] Urea nitrogen [Mass/Vol] 29.0 mg/dL High 7.0-18.[address] [facility] Urea nitrogen/Creatinine [Mass ratio] 11.1 mg/mg [facility] Laboratory - Hematology and Cell countson 04-09-2024 Immature granulocytes/100 WBC (Bld) 0.4 % 0.0-0.[address] [facility] Leukocytes [#/volume] correc ariana for nucleated erythrocytes in Blood by Automated counon 04-09-2024 WBC corrected for nucl RBC Auto (Bld) [#/Vol] Leukocytes [#/volume] corrected for nucleated erythrocytes in Blood by Automated coun 4.0-11.[address] [facility] Lymphocytes Auto (Bld) [#/Vo l]on 04-09-2024 Lymphocytes (Bld) [#/Vol] Lymphocytes [#/volume] in Blood by Automated count 1.2-3.[address] [facility] Lymphocytes/100 WBC Auto (Bl d)on 04-09-2024 Lymphocytes/100 WBC (Bld) Lymphocytes/100 leukocytes in Blood by Automated count 20.5-60.[address] [facility] MCH Auto (RBC) [Entitic mass ]on 04-09-2024 MCH (RBC) [Entitic mass] MCH [Entitic mass] by Automated count 25.9-34.[address] [facility] MCHC Auto (RBC) [Mass/Vol]on 04-09-2024 MCHC (RBC) [Mass/Vol] MCHC [Mass/volume] by Automated count 29.9-35.[address] [facility] MCV Auto (RBC) [Entitic vol] on 04-09-2024 MCV (RBC) [Entitic vol] MCV [Entitic vol ume] by Automated count 80.0-94.[address] [facility] Monocytes Auto (Bld) [#/Vol] on 04-09-2024 Monocytes (Bld) [#/Vol] Automated blood monocyte count High 0.3-0.[address] [facility] Monocytes/100 WBC Auto (Bld) on 02-18-2025 Monocytes/100 WBC (Bld) Automated monocyte % 1. 7-12.[address] [facility] Neutrophils Auto (Bld) [#/Vo l]on 04-09-2024 Neutrophils (Bld) [#/Vol] Neutrophils [#/volume] in Blood by Automated count 1.4-6.[address] [facility] Neutrophils/100 WBC Auto (Bl d)on 04-09-2024 Neutrophils/100 WBC (Bld) Automated neutrophil % 43.0-75.[address] [facility] No Panel Informationon 04-09 Troponin I High Sensitivity 896.5 pg/mL Critically high 4.0-76.[address] [facility] Comment on above: RESULTS CALLED TO Dr [...] Eosinophils # (Auto) 0.4 10 3/uL 0.0-0.7 [facility] Immature Granulocyte # (Auto) 0.04 10 3/uL High 0.00-0.[address] [facility] Platelet mean volume Auto (B ld) [Entitic vol]on 04-09-2024 Platelet mean volume (Bld) [Entitic vol] Platelet mean volume [Entitic volume] in Blood by Automated count 9.5-13.[address] [facility] Platelets Auto (Bld) [#/Vol] on 04-09-2024 Platelets (Bld) [#/Vol] Platelets [#/vol ume] in Blood by Automated count 150-[address] [facility] Prothrombin time (PT)on 03-23 PT Coag (PPP) [Time] Prothrombin time (PT) 9.0- 11.[address] [facility] RBC Auto (Bld) [#/Vol]on RBC (Bld) [#/Vol] Erythrocytes [#/volu me] in Blood by Automated count 4.70-6.[address] [facility] Serum or plasma anion gap de terminationon 04-09-2024 Anion gap [Moles/Vol] Serum or plasma an ion gap determination [facility] CBC AUTO DIFFon 12-03-2021 BASO # 0.0 103/ul Normal 0.0-0.1 [facility] Comment on above: Performed By: #### C BC #### [facility] [address] [address] [address] Ludin Parra Basophils/100 WBC (Bld) 0.6 % Normal 0.2-2.0 [facility] Comment on above: Performed By: #### C BC #### [facility] [address] [address] [address] Ludin Parra EO # 0.2 103/ul Normal 0.0-0.7 [facility] Comment on above: Performed By: #### C BC #### [facility] [address] [address] [address] Ludin Parra Eosinophils/100 WBC (Bld) 3.1 % Normal 0.9-7.0 [facility] Comment on above: Performed By: #### C BC #### [facility] [address] [address] [address] Ludin Parra Erythrocyte distribution width (RBC) [Ratio] 13.1 % Normal 11.0-15.0 [facility] Comment on above: Performed By: #### C BC #### [facility] [address] [address] [address] Ludin Parra Hematocrit (Bld) [Volume fraction] 47.2 % Normal 42.0-54.0 [facility] Comment on above: Performed By: #### C BC #### [facility] [address] [address] [address] Ludin Parra Hemoglobin (Bld) [Mass/Vol] 15.8 g/dL Normal 14.0-18.0 [facility] Comment on above: Performed By: #### C BC #### [facility] [address] [address] [address] Ludin Parra IG # 0.03 10e3/ul Normal 0.00-0.03 [facility] Comment on above: Performed By: #### C BC #### [facility] [address] [place] [address] Dr. Ludin Parra IG % 0.4 % Normal 0.0-0.5 [facility] Comment on above: Performed By: #### C BC #### [facility] [address] [place] [address] Dr. Ludin Parra LYMPH # 1.6 103/ul Normal 1.2-3.8 [facility] Comment on above: Performed By: #### C BC #### [facility] [address] [place] [address] Dr. Ludin Parra Lymphocytes/100 WBC (Bld) 22.6 % Normal 20.5-60.0 [facility] Comment on above: Performed By: #### C BC #### [facility] [address] [place] [address] Dr. Ludin Parra MANUAL DIFF REQ NO Normal [facility] Comment on above: Performed By: #### C BC #### [facility] [address] [place] [address] Dr. Ludin Parra MCH (RBC) [Entitic mass] 29.6 pg Normal 25.9-34.0 [facility] Comment on above: Performed By: #### C BC #### [facility] [address] [place] [address] Dr. Ludin Parra MCHC (RBC) [Mass/Vol] 33.5 g/dL Normal 29.9-35.2 [facility] Comment on above: Performed By: #### C BC #### [facility] [address] [place] [address] Dr. Ludin Parra MCV (RBC) [Entitic vol] 88.6 fL Normal 80.0-94.0 [facility] Comment on above: Performed By: #### C BC #### [facility] [address] [place] [address] Dr. Ludin Parra MONO # 0.5 103/ul Normal 0.3-0.8 [facility] Comment on above: Performed By: #### C BC #### [facility] [address] [place] [address] Dr. Ludin Parra Monocytes/100 WBC (Bld) 7.5 % Normal 1.7-12.0 [facility] Comment on above: Performed By: #### C BC #### [facility] [address] [place] [address] Dr. Ludin Parra NEUT # 4.7 103/ul Normal 1.4-6.5 [facility] Comment on above: Performed By: #### C BC #### [facility] [address] [place] [address] Dr. Ludin Parra Neutrophils/100 WBC (Bld) 65.8 % Normal 43.0-75.0 [facility] Comment on above: Performed By: #### C BC #### [facility] [address] [place] [address] Dr. Ludin Parra Platelet mean volume (Bld) [Entitic vol] 9.0 fL Critically low 9.5-13.5 [facility] Comment on above: Performed By: #### C BC #### [facility] [address] [place] [address] Dr. Ludin Parra PLT 199 103/ul Normal 150-450 [facility] Comment on above: Performed By: #### C BC #### [facility] [address] [place] [address] Dr. Ludin Parra RBC 5.33 106/ul Normal 4.70-6.10 [facility] Comment on above: Performed By: #### C BC #### [facility] [address] [place] [address] Dr. Ludin Parra WBC 7.1 103/ul Normal 4.0-11.0 [facility] Comment on above: Performed By: #### C BC #### [facility] [address] [place] [address] Dr. Ludin Parra PROF CHEM 8 (BAS METB)on Anion gap [Moles/Vol] 9.3 mmol/L Normal [facility] Comment on above: Performed By: #### B MP #### [facility] [address] [address] [address] Ludin Parra Calcium [Mass/Vol] 8.9 mg/dL Normal 8.5-10.1 [facility] Comment on above: Performed By: #### B MP #### [facility] [address] [address] [address] Ludin Parra Chloride [Moles/Vol] 106 mmol/L Normal 98-107 [facility] Comment on above: Performed By: #### B MP #### [facility] [address] [address] [address] Ludin Parra CO2 [Moles/Vol] 29.7 mmol/L Normal 21.0-32.0 [facility] Comment on above: Performed By: #### B MP #### [facility] [address] [address] [address] Ludin Parra Creatinine [Mass/Vol] 1.83 mg/dL Critically high 0.70-1.30 [facility] Comment on above: Performed By: #### B MP #### [facility] [address] [address] [address] Ludin Parra EGFR-AF CONGOLESE 44 mL/min/1.73m2 Critically low >=60 [facility] Comment on above: Performed By: #### B MP #### [facility] [address] [address] [address] Ludin Parra EGFR-NON AF CONGOLESE 36 mL/min/1.73m2 Critically low >=60 [facility] Comment on above: Performed By: #### B MP #### [facility] [address] [address] [address] Ludin Parra Glucose [Mass/Vol] 85 mg/dL Normal 74-106 [facility] Comment on above: Performed By: #### B MP #### [facility] [address] [address] [address] Ludin Parra Potassium [Moles/Vol] 4.0 mmol/L Normal 3.5-5.1 [facility] Comment on above: Performed By: #### B MP #### [facility] [address] [address] [address] Ludin Parra Sodium [Moles/Vol] 141 mmol/L Normal 136-145 [facility] Comment on above: Performed By: #### B MP #### [facility] [address] [address] [address] Ludin Parra Urea nitrogen [Mass/Vol] 25.0 mg/dL Critically high 7.0-18.0 [facility] Comment on above: Performed By: #### B MP #### [facility] [address] [address] [address] Ludin Parra Urea nitrogen/Creatinine [Mass ratio] 13.7 mg/mg Normal [facility] Comment on above: Performed By: #### B MP #### [facility] [address] [address] [address] Ludin Parra Vital Signs Date Time Vital Sign Value Performing Clinician Facility 04-29-2024 10:15-0400 Body height 193 cm Mely Ken MD Work Phone: [facility] 04-29-2024 10:15-0400 Body mass index (BMI) [Ratio] 27.24 kg/m2 Mely Ken MD Work Phone: [facility] 04-29-2024 10:15-0400 Body weight 101.52 kg Mely Ken MD Work Phone: [facility] 04-29-2024 10:15-0400 Diastolic blood pressure 60 mm[Hg] Mely Ken MD Work Phone: [facility] 04-29-2024 10:15-0400 Heart rate 53 /min Mely Ken MD Work Phone: [facility] 04-29-2024 10:15-0400 Systolic blood pressure 114 mm[Hg] Mely Ken MD Work Phone: [facility] 04-23-2024 15:21-0500 Body height 193.04 cm Ranjan Ball DO Work Phone: [facility] 04-23-2024 15:21-0500 Body mass index (BMI) [Ratio] 26.7 kg/m2 Ranjan Ball DO Work Phone: [facility] 04-23-2024 15:21-0500 Body temperature 97.8 [degF] Ranjan Ball DO Work Phone: [facility] 04-23-2024 15:21-0500 Body weight 99.79 kg Ranjan Ball DO Work Phone: [facility] 04-23-2024 15:21-0500 Diastolic blood pressure 79 mm[Hg] Ranjan Ball DO Work Phone: [facility] 04-23-2024 15:21-0500 Heart rate 58 /min Ranjan Ball DO Work Phone: [facility] 04-23-2024 15:21-0500 Respiratory rate 18 /min Ranjan Ball DO Work Phone: [facility] 04-23-2024 15:21-0500 SaO2% (BldA) [Mass fraction] 96 % Ranjan Ball DO Work Phone: [facility] 04-23-2024 15:21-0500 Systolic blood pressure 129 mm[Hg] Ranjan Ball DO Work Phone: [facility] 04-23-2024 10:32-0500 Body height 193.04 cm Ranjan Ball DO Work Phone: [facility] 04-23-2024 10:32-0500 Body mass index (BMI) [Ratio] 26.7 kg/m2 Arnjan Ball DO Work Phone: [facility] 04-23-2024 10:32-0500 Body weight 99.79 kg Ranjan Ball DO Work Phone: [facility] 04-23-2024 10:32-0500 Diastolic blood pressure 73 mm[Hg] Ranjan Ball DO Work Phone: [facility] 04-23-2024 10:32-0500 Heart rate 53 /min Ranjan Ball DO Work Phone: [facility] 04-23-2024 10:32-0500 Systolic blood pressure 127 mm[Hg] Ranjan Ball DO Work Phone: [facility] 04-18-2024 11:50-0500 Diastolic blood pressure 63 mm[Hg] Ranjan Ball DO Work Phone: [facility] 04-18-2024 11:50-0500 Heart rate 61 /min Ranjan Ball DO Work Phone: [facility] 04-18-2024 11:50-0500 Respiratory rate 17 /min Ranjan Ball DO Work Phone: [facility] 04-18-2024 11:50-0500 SaO2% (BldA) [Mass fraction] 93 % Ranjan Ball DO Work Phone: [facility] 04-18-2024 11:50-0500 Systolic blood pressure 104 mm[Hg] Ranjan Ball DO Work Phone: [facility] 04-18-2024 08:00-0500 Body temperature 97.8 [degF] Ranjan Ball DO Work Phone: [facility] 04-18-2024 06:00-0500 Body weight 110.3 kg Ranjan Ball DO Work Phone: [facility] 04-17-2024 16:02-0500 Body height 193.04 cm Ranjan Ball DO Work Phone: [facility] 04-16-2024 16:00-0500 Inhaled oxygen flow rate 2 L/min Ranjan Ball DO Work Phone: [facility] 04-12-2024 04:00-0500 Inhaled oxygen concentration 50 % Ranjan Ball DO Work Phone: [facility] 04-09-2024 14:41-0500 Body height 193.[address] [facility] 04-09-2024 14:41-0500 Body mass index (BMI) [Ratio] 28.3 kg/m2 [facility] 04-09-2024 14:41-0500 Body weight 105.[address] [facility] 04-09-2024 14:41-0500 Diastolic blood pressure 90 mm[Hg] [facility] 04-09-2024 14:41-0500 Heart rate 144 /min [facility] 04-09-2024 14:41-0500 Respiratory rate 16 /min [facility] 04-09-2024 14:41-0500 Systolic blood pressure 125 mm[Hg] [facility] 11-14-2023 09:58-0400 Body height 193.[address] [facility] 11-14-2023 09:58-0400 Body mass index (BMI) [Ratio] 27.3 kg/m2 [facility] 11-14-2023 09:58-0400 Body weight 101.[address] [facility] 11-14-2023 09:58-0400 Diastolic blood pressure 84 mm[Hg] [facility] 11-14-2023 09:58-0400 Heart rate 83 /min [facility] 11-14-2023 09:58-0400 Respiratory rate 14 /min [facility] 11-14-2023 09:58-0400 SaO2% (BldA) [Mass fraction] 97 % [facility] 11-14-2023 09:58-0400 Systolic blood pressure 138 mm[Hg] [facility] 06-27-2023 10:58-0400 Body height 193.[address] [facility] 06-27-2023 10:58-0400 Body mass index (BMI) [Ratio] 27.5 kg/m2 [facility] 06-27-2023 10:58-0400 Body weight 102.[address] [facility] 06-27-2023 10:58-0400 Diastolic blood pressure 84 mm[Hg] [facility] 06-27-2023 10:58-0400 Heart rate 91 /min [facility] 06-27-2023 10:58-0400 Respiratory rate 12 /min [facility] 06-27-2023 10:58-0400 Systolic blood pressure 133 mm[Hg] [facility] 02-10-2023 08:30-0500 Body height 193.04 cm Ranjan Ball Other [facility] Other 02-10-2023 08:30-0500 Body mass index (BMI) [Ratio] 27.87 kg/m2 Ranjan Ball Other [facility] Other 02-10-2023 08:30-0500 Body weight 103.87 kg Ranjan Ball Other [facility] Other 02-10-2023 08:30-0500 Diastolic blood pressure 88 mm[Hg] Ranjan Ball Other [facility] Other 02-10-2023 08:30-0500 Respiratory rate 12 /min Ranjan Ball Other [facility] Other 02-10-2023 08:30-0500 Systolic blood pressure 136 mm[Hg] Ranjan Ball Other [facility] Other 10-03-2022 15:45-0400 Body height 193.04 cm Ranjan Ball Other [facility] Other 10-03-2022 15:45-0400 Body mass index (BMI) [Ratio] 26.14 kg/m2 Ranjan Ball Other [facility] Other 10-03-2022 15:45-0400 Body weight 97.43 kg Ranjan Ball Other [facility] Other 10-03-2022 15:45-0400 Diastolic blood pressure 96 mm[Hg] Ranjan Ball Other [facility] Other 10-03-2022 15:45-0400 Respiratory rate 12 /min Ranjan Ball Other [facility] Other 10-03-2022 15:45-0400 Systolic blood pressure 159 mm[Hg] [facility]jan [employer] Other [facility] Other 07-19-2022 15:00-0400 Body height 193.04 cm Ranjan Ball Other [facility] Other 07-19-2022 15:00-0400 Body mass index (BMI) [Ratio] 26.63 kg/m2 Ranjan Ball Other [facility] Other 07-19-2022 15:00-0400 Body weight 99.25 kg Ranjan Ball Other [facility] Other 07-19-2022 15:00-0400 Diastolic blood pressure 81 mm[Hg] [facility]jan [employer] Other [facility] Other 07-19-2022 15:00-0400 Respiratory rate 12 /min [employer] Other [facility] Other 07-19-2022 15:00-0400 Systolic blood pressure 155 mm[Hg] Ranjan [employer] Other [facility] Other Encounters Encounter Date Encounter Type Care Provider Facility Start: 04-29-2024 End: 04-29-2024 Transitional care manage srvc 14 day discharge Mely Ken MD Work Phone: [facility] Comment on above: Cardiomyopathy, isch emic (Primary Dx); Tachycardia; Persistent atrial fibrillation (Multi); High risk medication use; Abnormal stress test; Mixed hyperlipidemia; Essential hypertension; 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 IV, 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); BMI 27.0-27.9,adult Start: 04-23-2024 End: 04-23-2024 ambulatory Ranjan Ball DO Work Phone: [facility] Work Phone: Start: 04-23-2024 End: 04-23-2024 Patient encounter procedure Ranjan Ball DO Work Phone: [facility] Work Phone: Start: 04-23-2024 End: 04-23-2024 ambulatory Ranjan Ball DO Work Phone: [facility] Work Phone: Start: 04-23-2024 End: 04-23-2024 Patient encounter procedure Ranjan Ball DO Work Phone: [facility] Work Phone: Start: 04-22-2024 Non-patient / Non-visit Benjam in Ball DO Work Phone: [facility] Work Phone: Start: 04-16-2024 Non-patient / Non-visit Benjam in Ball DO Work Phone: [facility] Work Phone: Start: 04-13-2024 Non-patient / Non-visit Benjam in Ball DO Work Phone: [facility] Work Phone: Start: 04-12-2024 Non-patient / Non-visit Benjam in Ball DO Work Phone: [facility] Work Phone: Start: 04-10-2024 Non-patient / Non-visit Benjam in Ball DO Work Phone: [facility] Work Phone: Start: 04-10-2024 End: 04-18-2024 Evaluation and management of inpatient Ranjan Ball DO Work Phone: [facility] Work Phone: Start: 04-09-2024 End: 04-09-2024 ambulatory [facility] Work Phone: Start: 04-09-2024 End: 04-09-2024 Patient encounter procedure [facility] Work Phone: Start: 11-14-2023 End: 11-14-2023 ambulatory [facility] Work Phone: Start: 11-14-2023 End: 11-14-2023 Patient encounter procedure [facility] Work Phone: Start: 06-27-2023 End: 06-27-2023 ambulatory [facility] Work Phone: Start: 06-27-2023 End: 06-27-2023 Patient encounter procedure [facility] Work Phone: Start: 02-10-2023 End: 02-10-2023 ambulatory Ranjan Ball Other [facility] Other Start: 02-10-2023 Office outpatient vi sit 15 minutes Ranjan Ball [facility] Start: 11-07-2022 End: 11-07-2022 ambulatory Ranjan Ball Other [facility] Other Start: 11-07-2022 Telephone encounter Ranjan Ball [facility] Start: 10-11-2022 End: 10-11-2022 ambulatory Ranjan Ball Other [facility] Other Start: 10-11-2022 Telephone encounter Ranjan Ball [facility] Start: 10-03-2022 End: 10-03-2022 ambulatory Ranjan Ball Other [facility] Other Start: 10-03-2022 Office outpatient vi sit 15 minutes Ranjan Ball [facility] Start: 07-19-2022 End: 07-19-2022 ambulatory Ranjan Ball Other [facility] Other Start: 07-19-2022 Office outpatient vi sit 15 minutes Ranjan Lomas [facility] Start: 12-03-2021 End: 12-04-[address] RANJAN LOMAS Facility:H1 Procedures Date Procedure Procedure Detail Performing Clinician Start: 04-29-2024 Ecg routine ecg w/le ast 12 lds w/i&r Mely Ken MD Work Phone: Start: 04-15-2024 Radionuclide myocard ial perfusion stress study Ranjan Lomas DO Work Phone: Start: 04-12-2024 Urine culture Ranjan Lomas DO Work Phone: Start: 04-12-2024 Ultrasonography of b ilateral kidneys Ranjan Lomas DO Work Phone: Start: 04-10-2024 Plain chest X-ray Lalit Lomas DO Work Phone: Start: 12-03-[address] DUKES [place] Comment on above: Performed By: #### [facility] #### [facility] [address] [place] [address] Dr. Ludin Parra Start: 11-17-2015 Hyperlipidemia screening Ranjan Lomas Other Start: 11-17-2015 Screening for malign ant neoplasm of colon Ranjan Lomas Other Screening for malign ant neoplasm of prostate Ranjan Lomas Other Plan of Treatment Date Care Activity Detail Author Start: 10-30-2024 End: 10-30-2024 Patient encounter procedure 10/30/2024 2:00 PM EDT Office Visit [facility] [address] [facility] [address] [place] [address] Mely Ken MD [address] [facility] [address] [place] [address] [facility] Start: 04-29-2024 End: 04-29-2025 Aspartate aminotransferase [Enzymatic activity/volume] in Serum or Plasma by With P-5'-P Aspartate Aminotransferase Lab Routine Persistent atrial fibrillation (Multi) High risk medication use Expected: 04/29/2024 (Approximate), Expires: 04/29/2025 [facility] Service Area Work Phone: Comment on above: Expected: 04/29/2024 (Approximate), Expi res: 04/29/2025 Start: 04-29-2024 End: 04-29-2025 Basic metabolic 2000 panel - Serum or Plasma Basic Metabolic Panel Lab Routine Persistent atrial fibrillation (Multi) High risk medication use Expected: 04/29/2024 (Approximate), Expires: 04/29/2025 [facility] Work Phone: Comment on above: Expected: 04/29/2024 (Approximate), Expi res: 04/29/2025 Start: 04-29-2024 End: 04-29-2025 Complete Pulmonary Function Test (Spirometry/DLCO/Lung Volumes) Complete Pulmonary Function Test (Spirometry/DLCO/Lung Volumes) PFT Routine Persistent atrial fibrillation (Multi) High risk medication use Expected: 04/29/2024 (Approximate), Expires: 04/29/2025 [facility] Work Phone: Comment on above: Expected: 04/29/2024 (Approximate), Expi res: 04/29/2025 Start: 04-29-2024 End: 04-29-2025 Thyrotropin [Units/volume] in Serum or Plasma Thyroid Stimulating Hormone Lab Routine Persistent atrial fibrillation (Multi) High risk medication use Expected: 04/29/2024 (Approximate), Expires: 04/29/2025 [facility] Work Phone: Comment on above: Expected: 04/29/2024 (Approximate), Expi res: 04/29/2025 Start: 04-29-2024 End: 04-29-2025 XR Chest 2 Views XR chest 2 views Imaging Routine Persistent atrial fibrillation (Multi) High risk medication use Expected: 04/29/2024 (Approximate), Expires: 04/29/2025 [facility] Work Phone: Comment on above: Expected: 04/29/2024 (Approximate), Expi res: 04/29/2025 Start: 04-18-[address] [facility] Start: 04-16-2024 Referral to rehabilitation physician [facility] Start: 04-12-2024 Referral to automotive brake specialist [facility] Start: 04-10-2024 Hospital admission [facility] Start: 04-10-2024 Referral to yarder operator [facility] Start: 10-22-2023 COVID-19 Vaccine ( season) COVID-19 Vaccine () [facility] Start: 10-22-2023 Influenza vaccination Influenza Vaccine (#1) [facility] Start: 01-10-2019 RSV High Risk: (Elderly (60+) or Population) (1 - 1-dose 75+ series) RSV High Risk: (Elderly (60+) or Population) (1 - 1-dose 75+ series) [facility] Start: 01-10-1994 Zoster Vaccines (1 of 2) Zoster Vaccines (1 of 2) [facility] Start: 01-10-1966 DTaP/Tdap/Td Vaccines (1 - Tdap) DTaP/Tdap/Td Vaccines (1 - Tdap) [facility] Start: 01-10-1963 Pneumococcal vaccination Pneumococcal Vaccine (1 of 2 - PCV) [facility] Start: 01-10-1962 Diabetes mellitus screening Diabetes Screening [facility] Start: 1945 Lipid panel Lipid Panel [facility] Start: 1945 Medicare Annual Wellness Visit Medicare Annual Wellness Visit (AWV) [facility] Start: 1945 Thyroid stimulating hormone measurement TSH Level [facility] Patient Education Know your Meds [facility] Work Phone: Patient referral [facility] Work Phone: Renal function 2000 panel - Serum or Plasma [facility] Immunizations Immunization Date Immunization Notes Care Provider Jonny jenkins 04-29-2020 COVID-19 Vaccine Isai ssen - Documentation Purposes Only Ranjan Lomas Other [facility] 11-10-2016 diphtheria, tetanus toxoids and acellular pertussis vaccine, unspecified formulation Ranjan Lomas Other [facility] Payers Date Payer Category Payer Private Health Insurance [id number] 2024 Self-pay 2008 Medicare MEDICARE RAILROA D [id number] 1959 Medicare [id number] 1945 Unknown [id number] Medicare Medicare Outpatient [id number] Unknown Lucy BC/LYLE [id number] Unknown [id number] Social History Date Type Detail Facility Start: 04-29-2024 Sex Assigned At [facility]ly [facility] [employer] Other Start: 02-09-2023 End: 04-29-2024 Tobacco smoking status NHIS Never smoked tobacco (finding) [facility] Start: 1945 Sex Assigned At Male F [facility] Start: 04-09-2024 End: 04-23-2024 Sex Male (finding) [facility] Start: 04-15-2024 End: 04-17-2024 SDOH Follow up SDOH Follow up [facility] Work Phone: Start: 04-29-2024 Tobacco use and exposure Smokeless tobacco non-user [facility] Work Phone: Start: 04-29-2024 Alcoholic beverage intake Ex-drinker (finding) [facility] Work Phone: Start: 04-29-2024 History of Social function [facility] Work Phone: Start: 04-29-2024 Alcohol Comment maybe once monthly U [facility] Work Phone: Start: 1945 Sex assigned at Not on file [facility] Work Phone: Start: 04-19-2024 End: 04-29-2024 Exposure to SARS-CoV-2 (event) Not sure [facility] Goals Date Patient Goal Desired Activity /State Functional Status Date Assessment Result Facility 04-18-2024 Functional status Patient at Baseline [facility] Work Phone: Mental Status Date Assessment Result Facility 04-18-2024 Cognitive function Cognitive Sta tus Patient at Baseline [facility] Work Phone: Clinical Notes 07-19-2022 to 04-29-2024 Mely Ken MD - 04/29/2024 10:00 AM EDTPatient InstructionsAttachments Note Date & Type Note Facility 04-29-2024 History of Present illness Narrative Dolly Muller is a 79 y.o. male Chief Complaint Hospital Follow-up HPI Patient is here for follow-up from recent hospitalization where he presented with pulmonary edema, acute heart failure and large ischemic event. To complicate the issue he has also advanced chronic kidney disease. He was treated conservatively with improvement of his pulmonary edema and heart failure. He developed atrial fibrillation with ultimately was controlled with amiodarone. His stress test was grossly abnormal and positive however the patient refused cath because of his concern about contrast-induced nephropathy considering his stage IV chronic kidney disease. Since his discharge he feels well. He describes symptoms of fatigue and tiredness but otherwise feels well. Assessment 1. Recent presentation with acute coronary syndrome with a stress test suggestive of multivessel coronary artery disease. Patient declined cardiac cath because concerned about contrast-induced nephropathy 2. Ischemic cardiomyopathy appears to be compensated. LVEF around 35-40% by echocardiogram 3. Persistent atrial fibrillation maintaining sinus rhythm with amiodarone 4. Long-term anticoagulation due to atrial fibrillation his dose is appropriate based on age and renal dysfunction 5. 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 BMI 27 8. Patient noted to be mildly bradycardic 9. High risk medication in form of amiodarone Plan 1. I recommended referral to cardiac rehab 2. I suggested aggressive approach risk factor modification 3. We will revisit the issue of heart cath and the patient remains reluctant due to his advanced kidney disease. He did not want to take any chances with his kidneys 4. The potential repeat presentation with myocardial infarction, arrhythmia, sudden cardiac all reviewed with patient at length he understood and agreed to continue with conservative management only 5. We will reduce his amiodarone to 100 mg daily 6. Next time we will see him will arrange for amiodarone surveillance testing 7. Advised the patient if dialysis initiated we will proceed with heart cath immediately Review of Systems Neurological: Positive for light-headedness. All other systems reviewed and are negative. Vitals: 04/29/24 1015 BP: 114/60 BP Location: Left arm Patient Position: Sitting Pulse: 53 Weight: 102 kg (223 lb 12.8 oz) Height: 1.93 m (6' 4 ) EKG done in office today Objective Physical Exam Constitutional: Appearance: Normal appearance. HENT: Nose: Nose normal. Neck: Vascular: No carotid bruit. Cardiovascular: Rate and Rhythm: Bradycardia present. Pulses: Normal pulses. Heart sounds: Normal heart sounds. Pulmonary: Effort: Pulmonary effort is normal. Abdominal: General: Bowel sounds are normal. Palpations: Abdomen is soft. Musculoskeletal: General: Normal range of motion. Cervical back: Normal range of motion. Right lower leg: No edema. Left lower leg: No edema. Skin: General: Skin is warm and dry. Neurological: General: No focal deficit present. Mental Status: He is alert. Psychiatric: Mood and Affect: Mood normal. Behavior: Behavior normal. Thought Content: Thought content normal. Judgment: Judgment normal. Allergies Patient has no known allergies. Current Medications Current Outpatient Medications: amiodarone (Pacerone) 200 mg tablet, Take 1 tablet (200 mg) by mouth once daily. 200mg 3x a day for 1 week then 200mg daily, Disp: , Rfl: apixaban (Eliquis) 2.5 mg tablet, Take 1 tablet (2.5 mg) by mouth 2 times a day., Disp: , Rfl: aspirin 81 mg EC tablet, Take 1 tablet (81 mg) by mouth once daily., Disp: , Rfl: atorvastatin (Lipitor) 10 mg tablet, Take 1 tablet (10 mg) by mouth once daily., Disp: , Rfl: furosemide (Lasix) 40 mg tablet, Take by mouth 2 times daily (morning and late afternoon)., Disp: , Rfl: hydrALAZINE (Apresoline) 25 mg tablet, Take 1 tablet (25 mg) by mouth 2 times a day., Disp: , Rfl: isosorbide mononitrate ER (Imdur) 30 mg 24 hr tablet, Take 1 tablet (30 mg) by mouth once daily. Do not crush or chew., Disp: , Rfl: melatonin 5 mg tablet, Take 1 tablet (5 mg) by mouth as needed at bedtime for sleep., Disp: , Rfl: metoprolol succinate XL (Toprol-XL) 50 mg 24 hr tablet, Take 1 tablet (50 mg) by mouth 2 times a day. Do not crush or chew., Disp: , Rfl: multivitamin tablet, Take 1 tablet by mouth once daily., Disp: , Rfl: potassium chloride CR 20 mEq ER tablet, Take 1 tablet (20 mEq) by mouth once daily. Do not crush or chew., Disp: , Rfl: spironolactone (Aldactone) 25 mg tablet, Take 0.5 tablets (12.5 mg) by mouth once daily., Disp: , Rfl: Assessment/Plan 1. Cardiomyopathy, ischemic 2. Tachycardia 3. Persistent atrial fibrillation (Multi) 4. High risk medication use 5. Abnormal stress test 6. Mixed hyperlipidemia 7. Essential hypertension 8. 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 BMI 27.0-27.9,adult Scribe Attestation By signing my name below, ILashay LPN , Scribe attest that this documentation has been prepared under the direction and in the presence of Mely Ken MD. Provider Attestation - Scribe documentation All medical record entries made by the Scribe were at my direction and personally dictated by me. I have reviewed the chart and agree that the record accurately reflects my personal performance of the history, physical exam, discussion and plan. documented in this encounter [facility] Work Phone: 04-29-2024 Instructions Lashay Andersen LPN - 04/29/2024 10:00 AM EDT Please bring all medicines, vitamins, and herbal supplements with you when you come to the office. Prescriptions will not be filled unless you are compliant with your follow up appointments or have a follow up appointment scheduled as per instruction of your physician. Refills should be requested at the time of your visit. Amiodarone follow up per routine BMI was above normal measurement. Current weight: 102 kg (223 lb 12.8 oz) Weight change since last visit (-) denotes wt loss 223.8 lbs Weight loss needed to achieve BMI 25: 18.8 Lbs Weight loss needed to achieve BMI 30: -22.1 Lbs Provided instructions on dietary changes. The following attachments cannot be sent through Care Everywhere.Heart Healthy Diet (Portuguese)documented in this encounter [facility] Work Phone: 04-18-2024 Progress note Note Date/Time April 18, 2024 12:05pm [facility] [address] [place] [address] Nephrology Progress Note Signed Patient: Corwin Muller MR#: [id number] : 1945 Acct:[id number] Age/Sex: 79 / M Adm Date: 5 Loc: Room: [address] [place] [address] Type: ADM IN Attending Dr: Jn Yanes [...] that time. He was evaluated in the [facility] with EKG showing SVT and inverted T [...] has no edema. Patient was seen by yarder operator and diltiazem was completely stopped that hopefully [...] 200 Mg Tablet) 200 mg PO TID [facility] Stop: 04/16/25 21:59 Last Admin: 04/18/24 08:53 Dose: 200 mg Apixaban (Apixaban 2.5 Mg Tablet) 2.5 mg PO BID [facility] Stop: 04/12/25 20:59 Last Admin: 04/18/24 08:53 Dose: 2.5 mg Aspirin (Aspirin 81 Mg Tablet.Dr) 81 mg PO DAILY [facility] Stop: 04/11/25 08:59 Last Admin: 04/18/24 08:53 Dose: 81 mg Docusate Sodium (Docusate 100 Mg Capsule) 200 mg PO BID PRN PRN Reason: Constipation Stop: 04/15/25 11:55 Furosemide (Furosemide 40 Mg Tablet) 40 mg PO BID@0800,1600 [facility] Stop: 04/12/25 15:59 Last Admin: 04/17/24 09:34 Dose: 40 mg Hydralazine HCl (Hydralazine 25 Mg Tablet) 25 mg PO BID [facility] Stop: 04/12/25 20:59 Last Admin: 04/18/24 08:53 Dose: 25 mg Isosorbide Mononitrate (Isosorbide Mononitrate 24hr Er 30 Mg Tab.Er.24h) 30 mg PO DAILY.6A BLESSING Stop: 04/13/25 05:59 Last Admin: 04/18/24 06:07 Dose: 30 mg Melatonin (Melatonin 5 Mg Tablet) 5 mg PO QHS PRN PRN Reason: sleep Stop: 04/18/25 21:59 Last Admin: 04/18/24 00:34 Dose: 5 mg Metoprolol Succinate (Metoprolol Succinate 50 Mg Tab.Er.24h) 50 mg PO BID [facility] Stop: 04/13/25 20:59 Last Admin: 04/18/24 08:53 Dose: 50 mg Morphine Sulfate (Morphine Sulfate 2 Mg/Ml Vial) 2 mg IV-PUSH Q4H PRN PRN Reason: Pain Scale 8 - 10 Ondansetron HCl (Ondansetron 4 Mg/2 Ml Vial) 4 mg IV-PUSH Q6H PRN PRN Reason: Nausea And Vomiting Stop: 04/10/25 04:04 Potassium Chloride (Potassium Chloride Er 20 Meq Tab.Er.Prt) 20 meq PO DAILY [facility] Stop: 04/13/25 08:59 Last Admin: 04/18/24 08:53 Dose: 20 meq Sennosides (Sennosides Syrup 8.8 Mg/5 Ml Udc) 17.6 mg PO HS [facility] Stop: 04/15/25 21:59 Last Admin: 04/17/24 21:07 [...] 12.5 Mg Tablet) 12.5 mg PO DAILY [facility] Stop: 04/12/25 19:59 Last Admin: 04/18/24 08:53 [...] infarction): Assessment/Problem Details: Patient was admitted for PR and his echocardiogram showed EF 35 to [...] <Electronically signed by MD Felicia Aguilar> 04/18/24 1204 [facility] Work Phone: 1(878) 395-603202-27-2025 Progress note Author nJ Yanes [facility] Note Date/Time April 18, 2024 11:56am [facility] [address] [place] [address] Hospitalist Progress Note Signed with Addenda Patient: Corwin Muller MR#: [id number] : 1945 Acct:[id number] Age/Sex: 79 / M Adm Date: 5 Loc: Room: [address] [place] [address] Type: ADM IN Attending Dr: Jn Yanes [...] By: <Electronically signed by Jn Yanes MD> 04/17/242104 [facility] Work Phone: 1(646) 366-251302-27-2025 Progress note Author Mely Ken [facility] Note Date/Time April 18, 2024 10:26am [facility] [address] [place] [address] Cardiology Progress Note Signed Patient: Corwin Muller MR#: [id number] : 1945 Acct:[id number] Age/Sex: 79 / M Adm Date: 5 Loc: Room: [address] [place] [address] Type: ADM IN Attending Dr: Jn Yanes [...] <Electronically signed by MD Mely Ken> 04/18/24 3819 [facility] Work Phone: 1(384) 747-656002-27-[address] [address] Nephrology Progress Note Signed Patient: Corwin Muller MR#: [id number] : 1945 Acct:[id number] Age/Sex: 79 / M Adm Date: 5 Loc: 4P Room: 8H8598-7 Type: ADM IN Attending Dr: Jn Yanes [...] that time. He was evaluated in the [facility] with EKG showingSVT and inverted T waves. [...] has no edema. Patient was seen by yarder operator and diltiazem was completely stopped that hopefully [...] 200 Mg Tablet) 200 mg PO TID [facility] Stop: 04/16/25 21:59 Last Admin: 04/18/24 08:53 Dose: 200 mg Apixaban (Apixaban 2.5 Mg Tablet) 2.5 mg PO BID [facility] Stop: 04/12/25 20:59 Last Admin: 04/18/24 08:53 Dose: 2.5 mg Aspirin (Aspirin 81 Mg Tablet.Dr) 81 mg PO DAILY [facility] Stop: 04/11/25 08:59 Last Admin: 04/18/24 08:53 Dose: 81 mg Docusate Sodium (Docusate 100 Mg Capsule) 200 mg PO BID PRN PRN Reason: Constipation Stop: 04/15/25 11:55 Furosemide (Furosemide 40 Mg Tablet) 40 mg PO BID@0800,1600 [facility] Stop: 04/12/25 15:59 Last Admin: 04/17/24 09:34 Dose: 40 mg Hydralazine HCl (Hydralazine 25 Mg Tablet) 25 mg PO BID [facility] Stop: 04/12/25 20:59 Last Admin: 04/18/24 08:53 Dose: 25 mg Isosorbide Mononitrate (Isosorbide Mononitrate 24hr Er 30 Mg Tab.Er.24h) 30 mg PO DAILY.6A [facility] Stop: 04/13/25 05:59 Last Admin: 04/18/24 06:07 [...] infarction): Assessment/Problem Details: Patient was admitted for PR and his echocardiogram showed EF 35 to [...] MD 04/18/24 1158 Signed By: 04/18/[address] [facility]02-27-2025 [place] [address] Hospitalist Progress Note Signed with Addenda Patient: Corwin Muller MR#: [id number] : 1945 Acct:[id number] Age/Sex: 79 / M Adm Date: 5 Loc: Room: [address] [place] [address] Type: ADM IN Attending Dr: Jn Yanes [...] Yanes MD 04/17/24 1402 Signed By: 04/17/[address] [facility]02-27-[address] [address] Cardiology Progress Note Signed Patient: Corwin Muller MR#: [id number] : 1945 Acct:[id number] Age/Sex: 79 / M Adm Date: 5 Loc: Room: [address] [place] [address] Type: ADM IN Attending Dr: Jn Yanes [...] Ken MD 04/18/24 1024 Signed By: 04/18/[address] [place], [place] 2967302-26-2025 Progress note [facility] Note Date/Time April 17, 2024 2:35pm [facility] [address] [place] [address] Nephrology Progress Note Signed Patient: Corwin Muller MR#: [id number] : 1945 Acct:[id number] Age/Sex: 79 / M Adm Date: 5 Loc: 4 Room: [id number] Type: ADM IN Attending Dr: Jn Yanes [...] that time. He was evaluated in the [facility] with EKG showing SVT and inverted T [...] was decreased to 240 mg by his yarder operator with the plan. Patient is lying if [...] 200 Mg Tablet) 200 mg PO TID [facility] Stop: 04/16/25 21:59 Last Admin: 04/17/24 09:34 Dose: 200 mg Apixaban (Apixaban 2.5 Mg Tablet) 2.5 mg PO BID [facility] Stop: 04/12/25 20:59 Last Admin: 04/17/24 09:34 Dose: 2.5 mg Aspirin (Aspirin 81 Mg Tablet.) 81 mg PO DAILY [facility] Stop: 04/11/25 08:59 Last Admin: 04/17/24 09:34 Dose: 81 mg Diltiazem HCl (Diltiazem Cd.24hr 240 Mg Cap.Er.24h) 240 mg PO DAILY [facility] Stop: 04/17/25 08:59 Last Admin: 04/17/24 09:34 Dose: 240 mg Docusate Sodium (Docusate 100 Mg Capsule) 200 mg PO BID PRN PRN Reason: Constipation Stop: 04/15/25 11:55 Furosemide (Furosemide 40 Mg Tablet) 40 mg PO BID@0800,1600 [facility] Stop: 04/12/25 15:59 Last Admin: 04/17/24 09:34 Dose: 40 mg Hydralazine HCl (Hydralazine 25 Mg Tablet) 25 mg PO BID [facility] Stop: 04/12/25 20:59 Last Admin: 04/17/24 09:34 Dose: 25 mg Isosorbide Mononitrate (Isosorbide Mononitrate 24hr Er 30 Mg Tab.Er.24h) 30 mg PO DAILY.6A [facility] Stop: 04/13/25 05:59 Last Admin: 04/17/24 05:10 Dose: 30 mg Metoprolol Succinate (Metoprolol Succinate 50 Mg Tab.Er.24h) 50 mg PO BID [facility] Stop: 04/13/25 20:59 Last Admin: 04/17/24 09:34 [...] Mg/5 Ml Udc) 17.6 mg PO HS [facility] Stop: 04/15/25 21:59 Last Admin: 04/17/24 07:25 Dose: Not Given Sodium Chloride (Sodium Chloride 0.9 % 10 Ml Syringe) 0 ml IV-PUSH QSHIFT [facility] Stop: 04/10/25 05:59 Last Admin: 04/17/24 07:25 Dose: Not Given Sodium Chloride (Sodium Chloride 0.9 % 10 Ml Syringe) 0 ml IV-PUSH PRN PRN PRN Reason: Flush Stop: 04/15/25 13:36 Last Admin: 04/15/24 14:00 Dose: 30 ml Spironolactone (Spironolactone 12.5 Mg Tablet) 12.5 mg PO DAILY [facility] Stop: 04/12/25 19:59 Last Admin: 04/17/24 09:34 [...] infarction): Assessment/Problem Details: Patient was admitted for PR and his echocardiogram showed EF 35 to [...] <Electronically signed by MD Felicia Aguilar> 04/17/24 1435 [facility] Work Phone: 1([phone]) 788-895902-26-2025 [place] [address] Nephrology Progress Note Signed Patient: Corwin Muller MR#: [id number] : 1945 Acct:[id number] Age/Sex: 79 / M Adm Date: 5 Loc: Room: [id number] Type: ADM IN Attending Dr: Jn Yanes [...] that time. He was evaluated in the [facility] with EKG showingSVT and inverted T waves. [...] 200 Mg Tablet) 200 mg PO TID [facility] Stop: 04/16/25 21:59 Last Admin: 04/17/24 09:34 [...] 40 Mg Tablet) 40 mg PO BID@0800,1600 [facility] Stop: 04/12/25 15:59 Last Admin: 04/17/24 09:34 Dose: 40 mg Hydralazine HCl (Hydralazine 25 Mg Tablet) 25 mg PO BID [facility] Stop: 04/12/25 20:59 Last Admin: 04/17/24 09:34 Dose: 25 mg Isosorbide Mononitrate (Isosorbide Mononitrate 24hr Er 30 Mg Tab.Er.24h) 30 mg PO DAILY.6A [facility] Stop: 04/13/25 05:59 Last Admin: 04/17/24 05:10 Dose: 30 mg Metoprolol Succinate (Metoprolol Succinate 50 Mg Tab.Er.24h) 50 mg PO BID [facility] Stop: 04/13/25 20:59 Last Admin: 04/17/24 09:34 [...] Mg/5 Ml Udc) 17.6 mg PO HS [facility] Stop: 04/15/25 21:59 Last Admin: 04/17/24 07:25 [...] infarction): Assessment/Problem Details: Patient was admitted for PR and his echocardiogram showed EF 35 to [...] later on. Documented By: Felicia Aguilar MD 04/17/241425 Signed By: 04/17/[address] [facility]02-26-2025 Progress note Author Mely Ken [facility] Note Date/Time April 17, 2024 12:13pm [facility] [address] [place] [address] Cardiology Progress Note Signed Patient: Corwin Muller MR#: [id number] : 1945 Acct:[id number] Age/Sex: 79 / M Adm Date: 5 Loc: Room: [address] [place] [address] Type: ADM IN Attending Dr: Jn Yanes [...] signed by MD Mely Ken> 04/17/24 1213 [facility] Work Phone: [phone] 215-189702-26-2025 [place] [address] Cardiology Progress Note Signed Patient: Corwin Muller MR#: [id number] : 1945 Acct:[id number] Age/Sex: 79 / M Adm Date: 5 Loc: Room: [address] [place] [address] Type: ADM IN Attending Dr: Jn Yanes [...] were addressed Documented By: Mely Ken MD 04/17/241209 Signed By: 04/17/[address] [facility]02-25-2025 Progress note Author Felicia Aguilar [facility] Note Date/Time April 16, 2024 4:47pm [facility] [address] [place] [address] Nephrology Progress Note Signed Patient: Corwin Muller MR#: [id number] : 1945 Acct:[id number] Age/Sex: 79 / M Adm Date: 5 Loc: Room: [address] [place] [address] Type: ADM IN Attending Dr: Jersey Bess [...] that time. He was evaluated in the [facility] with EKG showing SVT and inverted T [...] 200 Mg Tablet) 200 mg PO TID [facility] Stop: 04/16/25 21:59 Apixaban (Apixaban 2.5 Mg Tablet) 2.5 mg PO BID [facility] Stop: 04/12/25 20:59 Last Admin: 04/16/24 08:56 Dose: 2.5 mg Aspirin (Aspirin 81 Mg Tablet.Dr) 81 mg PO DAILY [facility] Stop: 04/11/25 08:59 Last Admin: 04/16/24 08:56 Dose: 81 mg Diltiazem HCl (Diltiazem Cd.24hr 240 Mg Cap.Er.24h) 240 mg PO DAILY [facility] Stop: 04/17/25 08:59 Docusate Sodium (Docusate 100 Mg Capsule) 200 mg PO BID PRN PRN Reason: Constipation Stop: 04/15/25 11:55 Furosemide (Furosemide 40 Mg Tablet) 40 mg PO BID@0800,1600 [facility] Stop: 04/12/25 15:59 Last Admin: 04/16/24 15:48 Dose: 40 mg Hydralazine HCl (Hydralazine 25 Mg Tablet) 25 mg PO BID [facility] Stop: 04/12/25 20:59 Last Admin: 04/16/24 08:56 Dose: 25 mg Isosorbide Mononitrate (Isosorbide Mononitrate 24hr Er 30 Mg Tab.Er.24h) 30 mg PO DAILY.6A [facility] Stop: 04/13/25 05:59 Last Admin: 04/16/24 06:28 Dose: 30 mg Metoprolol Succinate (Metoprolol Succinate 50 Mg Tab.Er.24h) 50 mg PO BID [facility] Stop: 04/13/25 20:59 Last Admin: 04/16/24 08:56 Dose: 50 mg Morphine Sulfate (Morphine Sulfate 2 Mg/Ml Vial) 2 mg IV-PUSH Q4H PRN PRN Reason: Pain Scale 8 - 10 Ondansetron HCl (Ondansetron 4 Mg/2 Ml Vial) 4 mg IV-PUSH Q6H PRN PRN Reason: Nausea And Vomiting Stop: 04/10/25 04:04 Potassium Chloride (Potassium Chloride Er 20 Meq Tab.Er.Prt) 20 meq PO DAILY [facility] Stop: 04/13/25 08:59 Last Admin: 04/16/24 08:56 Dose: 20 meq Sennosides (Sennosides Syrup 8.8 Mg/5 Ml Udc) 17.6 mg PO HS [facility] Stop: 04/15/25 21:59 Last Admin: 04/15/24 22:35 [...] infarction): Assessment/Problem Details: Patient was admitted for PR and his echocardiogram showed EF 35 to [...] was discussed with the patient by his yarder operator. Ideally he should have invasive evaluation however [...] <Electronically signed by MD Felicia Aguilar> 04/16/24 1647 [facility] Work Phone: 1(665) 449-124602-25-2025 Consult note Author Luis Patel [facility] Note Date/Time April 16, 2024 2:53pm [facility] [address] [place] [address] Physiatry (Rehab) Consult Note Signed Patient: Corwin Muller MR#: [id number] : 1945 Acct:[id number] Age/Sex: 79 / M Adm Date: 5 Loc: 4P Room: [address] [place] [address] Type: ADM IN Attending Dr: Jersey Bess [...] negative unless noted below or in HPI [facility] Medical History Atrial tachycardia Lumbar spondylosis Hyperlipidemia [...] See Rx Instructions .Route .COMPLEX #90 tabs 10/25/24 [Rx Confirmed 04/10/24] amiodarone 200 mg tablet [...] chart, including current orders, allied health and energy sales consultant notes, labs/imaging and performed whatley elements of exam and I formulated the plan of care and facilitated the medical decision making. I completed a substantive portion of this encounter, the medical decision making portion of this note in its entirety, including Allied health note review, nursing note review, energy sales consultant note review, discussion with nursing and case management, and more than 50% of my time was spent on counseling and coordination of care, time spent 35 minutes Documented By: Luis Patel MD 04/16/24 1405 Signed By: <Electronically signed by Luis Patel MD> 04/16/24 5375 [facility] Work Phone: 1(335) 150-722702-25-2025 [place] [address] Nephrology Progress Note Signed Patient: Corwin Muller MR#: [id number] : 1945 Acct:[id number] Age/Sex: 79 / M Adm Date: 5 Loc: 4P Room: [address] [place] [address] Type: ADM IN Attending Dr: Jersey Bess [...] that time. He was evaluated in [facility] with EKG showingSVT and inverted T waves. [...] 200 Mg Tablet) 200 mg PO TID [facility] Stop: 04/16/25 21:59 Apixaban (Apixaban 2.5 Mg Tablet) 2.5 mg PO BID [facility] Stop: 04/12/25 20:59 Last Admin: 04/16/24 08:56 Dose: 2.5 mg Aspirin (Aspirin 81 Mg Tablet.Dr) 81 mg PO DAILY [facility] Stop: 04/11/25 08:59 Last Admin: 04/16/24 08:56 Dose: 81 mg Diltiazem HCl (Diltiazem Cd.24hr 240 Mg Cap.Er.24h) 240 mg PO DAILY [facility] Stop: 04/17/25 08:59 Docusate Sodium (Docusate 100 Mg Capsule) 200 mg PO BID PRN PRN Reason: Constipation Stop: 04/15/25 11:55 Furosemide (Furosemide 40 Mg Tablet) 40 mg PO BID@0800,1600 [facility] Stop: 04/12/25 15:59 Last Admin: 04/16/24 15:48 Dose: 40 mg Hydralazine HCl (Hydralazine 25 Mg Tablet) 25 mg PO BID [facility] Stop: 04/12/25 20:59 Last Admin: 04/16/24 08:56 [...] 20 Meq Tab.Er.Prt) 20 meq PO DAILY [facility] Stop: 04/13/25 08:59 Last Admin: 04/16/24 08:56 Dose: 20 meq Sennosides (Sennosides Syrup 8.8 Mg/5 Ml Udc) 17.6 mg PO HS [facility] Stop: 04/15/25 21:59 Last Admin: 04/15/24 22:35 Dose: Not Given Sodium Chloride (Sodium Chloride 0.9 % 10 Ml Syringe) 0 ml IV-PUSH QSHIFT [facility] Stop: 04/10/25 05:59 Last Admin: 04/16/24 14:14 Dose: Not Given Sodium Chloride (Sodium Chloride 0.9 % 10 Ml Syringe) 0 ml IV-PUSH PRN PRN PRN Reason: Flush Stop: 04/15/25 13:36 Last Admin: 04/15/24 14:00 Dose: 30 ml Spironolactone (Spironolactone 12.5 Mg Tablet) 12.5 mg PO DAILY [facility] Stop: 04/12/25 19:59 Last Admin: 04/16/24 08:56 Dose: 12.5 mg Allergies No Known Allergies Allergy (Verified 04/09/24 14:28) Results - Nephrology Labs 02/25/25 04:50 04/16/24 04:50 Labs: 04/16/24 04:50 BUN [...] infarction): Assessment/Problem Details: Patient was admitted for PR and his echocardiogram showed EF 35 to [...] was discussed with the patient by his yarder operator. Ideally he should have invasive evaluation however [...] for rehab. Documented By: Felicia Aguilar MD 04/16/241637 Signed By: 04/16/[address] [facility]02-25-2025 Progress note Author Jersey Bess [facility] Note Date/Time April 16, 2024 1:58pm [facility] [address] [place] [address] Hospitalist Progress Note Signed Patient: Corwin Muller MR#: [id number] : 1945 Acct:[id number] Age/Sex: 79 / M Adm Date: 5 Loc: Room: [address] [place] [address] Type: ADM IN Attending Dr: Jersey Bess [...] <Electronically signed by Jersey Bess MD> 04/16/24 4328 [facility] Work Phone: [phone] 302-416502-25-2025 [place] [address] Physiatry (Rehab) Consult Note Signed Patient: Corwin Muller MR#: [id number] : 1945 Acct:[id number] Age/Sex: 79 / M Adm Date: 5 Loc: Room: [address] [place] [address] Type: ADM IN Attending Dr: Jersey Bess [...] negative unless noted below or in HPI [facility] Medical History Atrial tachycardia Lumbar spondylosis Hyperlipidemia [...] chart, including current orders, allied health and energy sales consultant notes, labs/imaging and performed whatley elements of exam and I formulated the plan of care and facilitated the medical decision making. I completed a substantive portion of this encounter, the medical decision making portion of this note in its entirety, including Allied health note review, nursing note review, energy sales consultant note review, discussion with nursing and case management, and more than 50% of my time was spent on counseling and coordination of care, time spent 35 minutes Documented By: Luis Patel MD 04/16/24 1401 Signed By: 04/16/[address] [facility]02-25-2025 [place] [address] Hospitalist Progress Note Signed Patient: Corwin Muller MR#: [id number] : 1945 Acct:[id number] Age/Sex: 79 / M Adm Date: 5 Loc: Room: [address] [place] [address] Type: ADM IN Attending Dr: Jersey Bess [...] 04/16/24 13 56 Signed By: 04/16/[address] [facility]02-25-2025 Progress note Author Mely Ken [facility] Note Date/Time April 16, 2024 11:27am [facility] [address] [place] [address] Cardiology Progress Note Signed Patient: Corwin Muller MR#: [id number] : 1945 Acct:[id number] Age/Sex: 79 / M Adm Date: 5 Loc: Room: [address] [place] [address] Type: ADM IN Attending Dr: Jersey Bess [...] discharged Documented By: Mely Ken MD 04/16/24 111 Signed By: <Electronically signed by MD Mely Ken> 04/16/24 1127 [facility] Work Phone: [phone] 578-181402-25-2025 Nuclear medicine Diagnostic study note [facility] [place] [address] [place] [address] Nuclear Medicine Report Signed Patient: Corwin Muller MR#: [id number] : 1945 Acct:[id number] Age/Sex: 79 / M ADM Date: 5 Loc: Room: [address] [place] [address] Type: ADM IN Attending Dr: Jersey Bess [...] Jayda Burgess M.D.04/16/2024 12:45 PM Dictation Location: [place] [address] Transcribed By: RK 04/16/24 124 Dictated By: Jayda Burgess MD 04/16/24 1237 Signed By: 04/16/[address] [facility] Work Phone: 1([phone]) 189-163302-25-2025 [place] [address] Cardiology Progress Note Signed Patient: Corwin Muller MR#: [id number] : 1945 Acct:[id number] Age/Sex: 79 / M Adm Date: 5 Loc: Room: [address] [place] [address] Type: ADM IN Attending Dr: Jersey Bess [...] be discharged Documented By: Mely Ken MD 04/16/241116 Signed By: 04/16/[address] [facility]02-25-2025 Progress note Author Felicia Aguilar [facility] Note Date/Time April 15, 2024 10:06pm [facility] [address] [place] [address] Nephrology Progress Note Signed Patient: Corwin Muller MR#: [id number] : 1945 Acct:[id number] Age/Sex: 79 / M Adm Date: 5 Loc: 4 Room: [address] [place] [address] Type: ADM IN Attending Dr: Jersey Bess [...] that time. He was evaluated in the [facility] with EKG showing SVT and inverted T [...] 200 Mg Tablet) 400 mg PO TID [facility] Stop: 04/11/25 13:59 Last Admin: 04/15/24 21:25 Dose: 400 mg Apixaban (Apixaban 2.5 Mg Tablet) 2.5 mg PO BID [facility] Stop: 04/12/25 20:59 Last Admin: 04/15/24 21:25 Dose: 2.5 mg Aspirin (Aspirin 81 Mg Tablet.) 81 mg PO DAILY [facility] Stop: 04/11/25 08:59 Last Admin: 04/15/24 10:20 Dose: 81 mg Diltiazem HCl (Diltiazem Cd.24hr 180 Mg Cap.Er.24h) 360 mg PO DAILY [facility] Stop: 04/15/25 08:59 Last Admin: 04/15/24 16:39 Dose: 360 mg Docusate Sodium (Docusate 100 Mg Capsule) 200 mg PO BID PRN PRN Reason: Constipation Stop: 04/15/25 11:55 Furosemide (Furosemide 40 Mg Tablet) 40 mg PO BID@0800,1600 [facility] Stop: 04/12/25 15:59 Last Admin: 04/15/24 16:42 Dose: 40 mg Hydralazine HCl (Hydralazine 25 Mg Tablet) 25 mg PO BID [facility] Stop: 04/12/25 20:59 Last Admin: 04/15/24 21:24 Dose: 25 mg Ceftriaxone Sodium (Rocephin) 1 gm in 50 mls @ 100 mls/hr IV Q24H [facility] Last Admin: 04/15/24 12:41 Dose: 100 mls/hr Isosorbide Mononitrate (Isosorbide Mononitrate 24hr Er 30 Mg Tab.Er.24h) 30 mg PO DAILY.6A [facility] Stop: 04/13/25 05:59 Last Admin: 04/15/24 05:04 Dose: 30 mg Metoprolol Succinate (Metoprolol Succinate 50 Mg Tab.Er.24h) 50 mg PO BID [facility] Stop: 04/13/25 20:59 Last Admin: 04/15/24 21:24 Dose: 50 mg Morphine Sulfate (Morphine Sulfate 2 Mg/Ml Vial) 2 mg IV-PUSH Q4H PRN PRN Reason: Pain Scale 8 - 10 Ondansetron HCl (Ondansetron 4 Mg/2 Ml Vial) 4 mg IV-PUSH Q6H PRN PRN Reason: Nausea And Vomiting Stop: 04/10/25 04:04 Potassium Chloride (Potassium Chloride Er 20 Meq Tab.Er.Prt) 20 meq PO DAILY [facility] Stop: 04/13/25 08:59 Last Admin: 04/15/24 10:21 Dose: 20 meq Sennosides (Sennosides Syrup 8.8 Mg/5 Ml Udc) 17.6 mg PO HS [facility] Stop: 04/15/25 21:59 Sodium Chloride (Sodium Chloride 0.9 % 10 Ml Syringe) 0 ml IV-PUSH QSHIFT [facility] Stop: 04/10/25 05:59 Last Admin: 04/15/24 16:42 Dose: 10 ml Sodium Chloride (Sodium Chloride 0.9 % 10 Ml Syringe) 0 ml IV-PUSH PRN PRN PRN Reason: Flush Stop: 04/15/25 13:36 Last Admin: 04/15/24 14:00 Dose: 30 ml Spironolactone (Spironolactone 12.5 Mg Tablet) 12.5 mg PO DAILY [facility] Stop: 04/12/25 19:59 Last Admin: 04/15/24 10:20 [...] infarction): Assessment/Problem Details: Patient was admitted for PR and his echocardiogram showed EF 35 to [...] By: <Electronically signed by MD Felicia Aguilar> 04/15/242205 [facility] Work Phone: [phone]) 743-671302-24-2025 [place] [address] Nephrology Progress Note Signed Patient: Corwin Muller MR#: [id number] : 1945 Acct:[id number] Age/Sex: 79 / M Adm Date: 5 Loc: Room: [address] [place] [address] Type: ADM IN Attending Dr: Jersey Bess [...] that time. He was evaluated in [facility] with EKG showingSVT and inverted T waves. [...] 200 Mg Tablet) 400 mg PO TID [facility] Stop: 04/11/25 13:59 Last Admin: 04/15/24 21:25 Dose: 400 mg Apixaban (Apixaban 2.5 Mg Tablet) 2.5 mg PO BID [facility] Stop: 04/12/25 20:59 Last Admin: 04/15/24 21:25 Dose: 2.5 mg Aspirin (Aspirin 81 Mg Tablet.Dr) 81 mg PO DAILY [facility] Stop: 04/11/25 08:59 Last Admin: 04/15/24 10:20 Dose: 81 mg Diltiazem HCl (Diltiazem Cd.24hr 180 Mg Cap.Er.24h) 360 mg PO DAILY [facility] Stop: 04/15/25 08:59 Last Admin: 04/15/24 16:39 Dose: 360 mg Docusate Sodium (Docusate 100 Mg Capsule) 200 mg PO BID PRN PRN Reason: Constipation Stop: 04/15/25 11:55 Furosemide (Furosemide 40 Mg Tablet) 40 mg PO BID@0800,1600 [facility] Stop: 04/12/25 15:59 Last Admin: 04/15/24 16:42 Dose: 40 mg Hydralazine HCl (Hydralazine 25 Mg Tablet) 25 mg PO BID [facility] Stop: 04/12/25 20:59 Last Admin: 04/15/24 21:24 Dose: 25 mg Ceftriaxone Sodium (Rocephin) 1 gm in 50 mls @ 100 mls/hr IV Q24H [facility] Last Admin: 04/15/24 12:41 Dose: 100 mls/hr [...] DAILY [facility] Stop: 04/13/25 08:59 Last Admin: 04/15/24 10:21 [...] infarction): Assessment/Problem Details: Patient was admitted for PR and his echocardiogram showed EF 35 to [...] Felicia Aguilar MD 04/15/242200 Signed By: 04/15/242205 [facility]02-24-2025 Progress note Author Mely Ken [facility] Note Date/Time April 15, 2024 12:47pm [facility] [address] [place] [address] Cardiology Progress Note Signed Patient: Corwin Muller MR#: [id number] : 1945 Acct:[id number] Age/Sex: 79 / M Adm Date: 5 Loc: Room: [address] [place] [address] Type: ADM IN Attending Dr: Jersey Bess [...] modification Documented By: Mely Ken MD 04/15/24 9542 Signed By: <Electronically signed by MD Mely Ken> 04/15/24 2259 [facility] Work Phone: 1(479) 936-530202-24-2025 Progress note Author Obaydah Daromar [facility] Note Date/Time April 15, 2024 12:12pm [facility] [address] [place] [address] Hospitalist Progress Note Signed Patient: Corwin Muller MR#: [id number] : 1945 Acct:[id number] Age/Sex: 79 / M Adm Date: 5 Loc: Room: [address] [place] [address] Type: ADM IN Attending Dr: Jersey Bess [...] <Electronically signed by Jersey Bess MD> 04/15/24 [facility] Work Phone: 1([phone]) 273-795402-24-2025 [place] [address] Cardiology Progress Note Signed Patient: Corwin Muller MR#: [id number] : 1945 Acct:[id number] Age/Sex: 79 / M Adm Date: 5 Loc: Room: [address] [place] [address] Type: ADM IN Attending Dr: Jersey Bess [...] factor modification Documented By: Mely Ken MD 04/15/244 Signed By: 04/15/[address] [facility]02-24-2025 [place] [address] Hospitalist Progress Note Signed Patient: Corwin Muller MR#: [id number] : 1945 Acct:[id number] Age/Sex: 79 / M Adm Date: 5 Loc: Room: [address] [place] [address] Type: ADM IN Attending Dr: Jersey Bess [...] MD 04/15/24 11 54 Signed By: 04/15/[address] [place], [place] 6289902-23-2025 Progress note Author Jersey Bess [facility] Note Date/Time April 14, 2024 1:43pm [facility] [address] [place] [address] Hospitalist Progress Note Signed Patient: Corwin Muller MR#: [id number] : 1945 Acct:[id number] Age/Sex: 79 / M Adm Date: 5 Loc: Room: [address] [place] [address] Type: ADM IN Attending Dr: Jersey Bess [...] 101/64 96 Nasal Cannula 6 04/14/24 09:00 02/23/25 13:00 04/14/24 13:00 04/14/24 13:00 04/14/24 13:00 [...] Tablet PO 04/12/25 15:59 40 mg BID@0800,1600 [facility] Administration Hydralazine HCl 25 mg 04/12/24 21:00 [...] <Electronically signed by Jersey Bess MD> 04/14/24 1218 [facility] Work Phone: 1(475) 122-512302-23-2025 Progress note Author Tobi Monroy [facility] Note Date/Time April 14, 2024 1:06pm [facility] [address] [place], [place] [address] Nephrology Progress Note Signed Patient: Corwin Muller MR#: [id number] : 1945 Acct:[id number] Age/Sex: 79 / M Adm Date: 5 Loc: 4P Room: 5U2473-4 Type: ADM IN Attending Dr: Jersey Bess [...] that time. He was evaluated [facility] with EKG showing SVT and inverted T [...] 200 Mg Tablet) 400 mg PO TID [facility] Stop: 04/11/25 13:59 Last Admin: 04/14/24 09:16 Dose: 400 mg Apixaban (Apixaban 2.5 Mg Tablet) 2.5 mg PO BID [facility] Stop: 04/12/25 20:59 Last Admin: 04/14/24 09:17 Dose: 2.5 mg Aspirin (Aspirin 81 Mg Tablet.) 81 mg PO DAILY [facility] Stop: 04/11/25 08:59 Last Admin: 04/14/24 09:15 Dose: 81 mg Diltiazem HCl (Diltiazem Cd.24hr 180 Mg Cap.Er.24h) 360 mg PO DAILY [facility] Stop: 04/15/25 08:59 Furosemide (Furosemide 40 Mg Tablet) 40 mg PO BID@0800,1600 [facility] Stop: 04/12/25 15:59 Last Admin: 04/14/24 09:16 Dose: 40 mg Hydralazine HCl (Hydralazine 25 Mg Tablet) 25 mg PO BID [facility] Stop: 04/12/25 20:59 Last Admin: 04/14/24 09:17 Dose: 25 mg Ceftriaxone Sodium (Rocephin) 1 gm in 50 mls @ 100 mls/hr IV Q24H [facility] Last Admin: 04/14/24 11:29 Dose: 100 mls/hr Isosorbide Mononitrate (Isosorbide Mononitrate 24hr Er 30 Mg Tab.Er.24h) 30 mg PO DAILY.6A [facility] Stop: 04/13/25 05:59 Last Admin: 04/14/24 05:50 Dose: 30 mg Metoprolol Succinate (Metoprolol Succinate 50 Mg Tab.Er.24h) 50 mg PO BID [facility] Stop: 04/13/25 20:59 Last Admin: 04/14/24 09:17 Dose: 50 mg Morphine Sulfate (Morphine Sulfate 2 Mg/Ml Vial) 2 mg IV-PUSH Q4H PRN PRN Reason: Pain Scale 8 - 10 Ondansetron HCl (Ondansetron 4 Mg/2 Ml Vial) 4 mg IV-PUSH Q6H PRN PRN Reason: Nausea And Vomiting Stop: 04/10/25 04:04 Potassium Chloride (Potassium Chloride Er 20 Meq Tab.Er.Prt) 20 meq PO DAILY [facility] Stop: 04/13/25 08:59 Last Admin: 04/14/24 09:15 Dose: 20 meq Sodium Chloride (Sodium Chloride 0.9 % 10 Ml Syringe) 0 ml IV-PUSH QSHIFT [facility] Stop: 04/10/25 05:59 Last Admin: 04/13/24 21:31 Dose: 10 ml Spironolactone (Spironolactone 12.5 Mg Tablet) 12.5 mg PO DAILY [facility] Stop: 04/12/25 19:59 Last Admin: 04/14/24 09:16 [...] infarction): Assessment/Problem Details: Patient was admitted for PR and his echocardiogram showed EF 35 to [...] <Electronically signed by Tobi Monroy MD> 04/14/24 5008 [facility] Work Phone: 1(122) 127-512602-23-2025 Progress note Author Bubba Jessica [facility] Note Date/Time April 14, 2024 12:48pm [facility] [address] [place] [address] Cardiology Progress Note Signed Patient: Corwin Muller MR#: [id number] : 1945 Acct:[id number] Age/Sex: 79 / M Adm Date: 5 Loc: Room: [address] [place] [address] Type: ADM IN Attending Dr: Jersey Bess MD Copies to: ~ Date of Service: 04/14/2024 Subjective Principal diagnosis: Congestive heart failure/atrial fibrillation Interval history: Mr. Muller is a 79 year old male was sent by his physician to the hospital because of observation of worsening respiratory status and tachycardia. He was evaluated in the emergency room at [place]. The patient described progressive shortness of breath [...] elevated when the patient was sent to [facility] for further care. The patient denies chest [...] [place]. Documented By: Bubba Jessica MD 03/24 Signed By: <Electronically signed by Bubba Jessica MD> 04/14/24 1243 [facility] Work Phone: 1(253) 582-357502-23-2025 [place] [address] Hospitalist Progress Note Signed Patient: Corwin Muller MR#: [id number] : 1945 Acct:[id number] Age/Sex: 79 / M Adm Date: 5 Loc: Room: [address] [place] [address] Type: ADM IN Attending Dr: Jersey Bess [...] 04/11/24 09:00 04/14/24 09:15 Aspirin 81 Mg Tablet. PO 04/11/25 08:59 [...] 04/14/24 09:16 Spironolactone 12.5 Mg Tablet PO 02/21/26 19:59 12.5 mg DAILY [facility] Administration A&P [...] MD 04/14/24 13 37 Signed By: 04/14/[address] [facility]02-23-[address] [address] Nephrology Progress Note Signed Patient: Corwin Muller MR#: [id number] : 1945 Acct:[id number] Age/Sex: 79 / M Adm Date: 5 Loc: 4 Room: [address] [place] [address] Type: ADM IN Attending Dr: Jersey Bess [...] that time. He was evaluated in the [facility] with EKG showingSVT and inverted T waves. [...] 200 Mg Tablet) 400 mg PO TID [facility] Stop: 04/11/25 13:59 Last Admin: 04/14/24 09:16 Dose: 400 mg Apixaban (Apixaban 2.5 Mg Tablet) 2.5 mg PO BID [facility] Stop: 04/12/25 20:59 Last Admin: 04/14/24 09:17 Dose: 2.5 mg Aspirin (Aspirin 81 Mg Tablet.Dr) 81 mg PO DAILY [facility] Stop: 04/11/25 08:59 Last Admin: 04/14/24 09:15 Dose: 81 mg Diltiazem HCl (Diltiazem Cd.24hr 180 Mg Cap.Er.24h) 360 mg PO DAILY [facility] Stop: 04/15/25 08:59 Furosemide (Furosemide 40 Mg Tablet) 40 mg PO BID@0800,1600 [facility] Stop: 04/12/25 15:59 Last Admin: 04/14/24 09:16 Dose: 40 mg Hydralazine HCl (Hydralazine 25 Mg Tablet) 25 mg PO BID [facility] Stop: 04/12/25 20:59 Last Admin: 04/14/24 09:17 Dose: 25 mg Ceftriaxone Sodium (Rocephin) 1 gm in 50 mls @ 100 mls/hr IV Q24H [facility] Last Admin: 04/14/24 11:29 Dose: 100 mls/hr Isosorbide Mononitrate (Isosorbide Mononitrate 24hr Er 30 Mg Tab.Er.24h) 30 mg PO DAILY.6A [facility] Stop: 04/13/25 05:59 Last Admin: 04/14/24 05:50 Dose: 30 mg Metoprolol Succinate (Metoprolol Succinate 50 Mg Tab.Er.24h) 50 mg PO BID [facility] Stop: 04/13/25 20:59 Last Admin: 04/14/24 09:17 Dose: 50 mg Morphine Sulfate (Morphine Sulfate 2 Mg/Ml Vial) 2 mg IV-PUSH Q4H PRN PRN Reason: Pain Scale 8 - 10 Ondansetron HCl (Ondansetron 4 Mg/2 Ml Vial) 4 mg IV-PUSH Q6H PRN PRN Reason: Nausea And Vomiting Stop: 04/10/25 04:04 Potassium Chloride (Potassium Chloride Er 20 Meq Tab.Er.Prt) 20 meq PO DAILY [facility] Stop: 04/13/25 08:59 Last Admin: 04/14/24 09:15 Dose: 20 meq Sodium Chloride (Sodium Chloride 0.9 % 10 Ml Syringe) 0 ml IV-PUSH QSHIFT [facility] Stop: 04/10/25 05:59 Last Admin: 04/13/24 21:31 Dose: 10 ml Spironolactone (Spironolactone 12.5 Mg Tablet) 12.5 mg PO DAILY [facility] Stop: 04/12/25 19:59 Last Admin: 04/14/24 09:16 [...] infarction): Assessment/Problem Details: Patient was admitted for PR and his echocardiogram showed EF 35 to [...] MD 04/14/24 1257 Signed By: 04/14/[address] [facility]02-23-2025 [place] [address] Cardiology Progress Note Signed Patient: Corwin Muller MR#: [id number] : 1945 Acct:[id number] Age/Sex: 79 / M Adm Date: 5 Loc: 4P Room: 0B2571-9 Type: ADM IN Attending Dr: Jersey Bess MD Copies to: ~ Date of Service: 04/14/2024 Subjective Principal diagnosis: Congestive heart failure/atrial fibrillation Interval history: Mr. Muller is a 79 year old male was sent by his physician to the hospital because of observationof worsening respiratory status and tachycardia. He was evaluated in the emergency room at [place]. The patient described progressive shortness of breath [...] elevated when the patient was sent to [facility] for further care. Thepatient denies chest pain [...] MD 03/24 05/14 1244 Signed By: 04/14/24 [facility] [facility]02-22-2025 Progress note Author Tobi Monroy [facility] Note Date/Time April 13, 2024 2:23pm [facility] [address] [place] [address] Nephrology Progress Note Signed Patient: Corwin Muller MR#: [id number] : 1945 Acct:[id number] Age/Sex: 79 / M Adm Date: 5 Loc: Room: [address] [place] [address] Type: ADM IN Attending Dr: Jersey Bess [...] that time. He was evaluated in the [facility] with EKG showing SVT and inverted T [...] 1380 200 / 200 Output Total 1999 3775 / 3775 1200 / 1200 [...] 200 Mg Tablet) 400 mg PO TID [facility] Stop: 04/11/25 13:59 Last Admin: 04/13/24 09:51 Dose: 400 mg Apixaban (Apixaban 2.5 Mg Tablet) 2.5 mg PO BID [facility] Stop: 04/12/25 20:59 Last Admin: 04/13/24 09:43 Dose: 2.5 mg Aspirin (Aspirin 81 Mg Tablet.Dr) 81 mg PO DAILY [facility] Stop: 04/11/25 08:59 Last Admin: 04/13/24 09:45 Dose: 81 mg Diltiazem HCl (Diltiazem Cd.24hr 240 Mg Cap.Er.24h) 240 mg PO DAILY [facility] Stop: 04/13/25 12:44 Furosemide (Furosemide 40 Mg Tablet) 40 mg PO BID@0800,1600 [facility] Stop: 04/12/25 15:59 Last Admin: 04/13/24 09:44 Dose: 40 mg Hydralazine HCl (Hydralazine 25 Mg Tablet) 25 mg PO BID [facility] Stop: 04/12/25 20:59 Last Admin: 04/13/24 09:44 Dose: 25 mg Diltiazem HCl (Cardizem) 100 mg in 100 mls @ 10 mls/hr IV .Q10H [facility]; Protocol Stop: 04/11/25 10:14 Last Admin: 04/13/24 02:47 Dose: 10 mg/hr, 10 mls/hr Ceftriaxone Sodium (Rocephin) 1 gm in 50 mls @ 100 mls/hr IV Q24H [facility] Last Admin: 04/13/24 12:32 Dose: 100 mls/hr Isosorbide Mononitrate (Isosorbide Mononitrate 24hr Er 30 Mg Tab.Er.24h) 30 mg PO DAILY.6A [facility] Stop: 04/13/25 05:59 Last Admin: 04/13/24 05:43 Dose: 30 mg Metoprolol Succinate (Metoprolol Succinate 50 Mg Tab.Er.24h) 50 mg PO BID [facility] Stop: 04/13/25 20:59 Morphine Sulfate (Morphine Sulfate [...] Jones Pedro M.D.04/12/2024 9:34 PM Dictation Location: [place] [address] Any impression(s) listed above is documentation that [...] infarction): Assessment/Problem Details: Patient was admitted for PR and his echocardiogram showed EF 35 to [...] By: <Electronically signed by Tobi Monroy MD> 04/13/24 8759 [facility] Work Phone: 1(765) 715-246302-22-2025 Progress note Author Bubba Jessica [facility] Note Date/Time April 13, 2024 1:26pm [facility] [address] [place] [address] Cardiology Progress Note Signed Patient: Corwin Muller MR#: [id number] : 1945 Acct:[id number] Age/Sex: 79 / M Adm Date: 5 Loc: 4 Room: [id number] Type: ADM IN Attending Dr: Jersey Bess MD Copies to: ~ Date of Service: 04/13/2024 Subjective Principal diagnosis: Congestive heart failure/atrial fibrillation Interval history: Mr. Muller is a 79 year old male was sent by his physician to the hospital because of observation of worsening respiratory status and tachycardia. He was evaluated in the emergency room at [place]. The patient described progressive shortness of breath [...] elevated when the patient was sent to [facility] for further care. The patient denies chest [...] % (Auto) 63.3 Lymph % (Auto) 18.6 [place] % (Auto) 11.0 Eos % (Auto) 6.7 Baso % (Auto) 0.4 Nucleat RBC Rel Count 0.1 Neut # (Auto) 5.5 Lymph # (Auto) 1.6 [place] # (Auto) 1.0 H Eos # (Auto) [...] Documented By: Bubba Jessica MD 03/24 04/16 1310 Signed By: <Electronically signed by Bubba Jessica MD> 04/13/24 1326 [facility] Work Phone: 1(285) 292-336402-22-2025 [place] [address] Nephrology Progress Note Signed Patient: Corwin Muller MR#: [id number] : 1945 Acct:[id number] Age/Sex: 79 / M Adm Date: 5 Loc: Room: [address] [place] [address] Type: ADM IN Attending Dr: Jersey Bess [...] that time. He was evaluated in the [facility] with EKG showingSVT and inverted T waves. [...] 200 Mg Tablet) 400 mg PO TID [facility] Stop: 04/11/25 13:59 Last Admin: 04/13/24 09:51 Dose: 400 mg Apixaban (Apixaban 2.5 Mg Tablet) 2.5 mg PO BID [facility] Stop: 04/12/25 20:59 Last Admin: 04/13/24 09:43 Dose: 2.5 mg Aspirin (Aspirin 81 Mg Tablet.) 81 mg PO DAILY [facility] Stop: 04/11/25 08:59 Last Admin: 04/13/24 09:45 Dose: 81 mg Diltiazem HCl (Diltiazem Cd.24hr 240 Mg Cap.Er.24h) 240 mg PO DAILY [facility] Stop: 04/13/25 12:44 Furosemide (Furosemide 40 Mg Tablet) 40 mg PO BID@0800,1600 [facility] Stop: 04/12/25 15:59 Last Admin: 04/13/24 09:44 Dose: 40 mg Hydralazine HCl (Hydralazine 25 Mg Tablet) 25 mg PO BID [facility] Stop: 04/12/25 20:59 Last Admin: 04/13/24 09:44 Dose: 25 mg Diltiazem HCl (Cardizem) 100 mg in 100 mls @ 10 mls/hr IV .Q10H [facility]; Protocol Stop: 04/11/25 10:14 Last Admin: 04/13/24 02:47 Dose: 10 mg/hr, 10 mls/hr Ceftriaxone Sodium (Rocephin) 1 gm in 50 mls @ 100 mls/hr IV Q24H [facility] Last Admin: 04/13/24 12:32 Dose: 100 mls/hr Isosorbide Mononitrate (Isosorbide Mononitrate 24hr Er 30 Mg Tab.Er.24h) 30 mg PO DAILY.6A [facility] Stop: 04/13/25 05:59 Last Admin: 04/13/24 05:43 Dose: 30 mg Metoprolol Succinate (Metoprolol Succinate 50 Mg Tab.Er.24h) 50 mg PO BID [facility] Stop: 04/13/25 20:59 Morphine Sulfate (Morphine Sulfate 2 Mg/Ml Vial) 2 mg IV-PUSH Q4H PRN PRN Reason: Pain Scale 8 - 10 Ondansetron HCl (Ondansetron 4 Mg/2 Ml Vial) 4 mg IV-PUSH Q6H PRN PRN Reason: Nausea And Vomiting Stop: 04/10/25 04:04 Potassium Chloride (Potassium Chloride Er 20 Meq Tab.Er.Prt) 20 meq PO DAILY [facility] Stop: 04/13/25 08:59 Last Admin: 04/13/24 09:43 Dose: 20 meq Sodium Chloride (Sodium Chloride 0.9 % 10 Ml Syringe) 0 ml IV-PUSH QSHIFT [facility] Stop: 04/10/25 05:59 Last Admin: 04/13/24 09:52 Dose: 10 ml Spironolactone (Spironolactone 12.5 Mg Tablet) 12.5 mg PO DAILY [facility] Stop: 04/12/25 19:59 Last Admin: 04/13/24 09:45 [...] Jones Pedro M.D.04/12/2024 9:34 PM Dictation Location: [place] [address] Any impression(s) listed above is documentation that [...] infarction): Assessment/Problem Details: Patient was admitted for PR and his echocardiogram showed EF 35 to [...] weights * Documented By: Tobi Monroy MD 04/13/24 1420 Signed By: 04/13/24 [address] [facility]02-22-2025 Progress note Author Jersey Bess [facility] Note Date/Time April 13, 2024 11:47am [facility] [address] [place] [address] Hospitalist Progress Note Signed Patient: Corwin Muller MR#: [id number] : 1945 Acct:[id number] Age/Sex: 79 / M Adm Date: 5 Loc: Room: [address] [place] [address] Type: ADM IN Attending Dr: Jersey Bess [...] Tablet.Dr PO 04/11/25 08:59 81 mg DAILY [facility] Administration Carvedilol 6.25 mg 04/11/24 08:00 04/13/24 [...] <Electronically signed by Jersey Bess MD> 04/13/24 1147 [facility] Work Phone: 1([phone]) 720-927702-22-2025 [place] [address] Cardiology Progress Note Signed Patient: Corwin Muller MR#: [id number] : 1945 Acct:[id number] Age/Sex: 79 / M Adm Date: 5 Loc: Room: [address] [place] [address] Type: ADM IN Attending Dr: Jersey Bess MD Copies to: ~ Date of Service: 04/13/2024 Subjective Principal diagnosis: Congestive heart failure/atrial fibrillation Interval history: Mr. Muller is a 79 year old male was sent by his physician to the hospital because of observationof worsening respiratory status and tachycardia. He was evaluated in the emergency room at [place]. The patient described progressive shortness of breath [...] elevated when the patient was sent to [facility] for further care. Thepatient denies chest pain [...] % (Auto) 63.3 Lymph % (Auto) 18.6 [place] % (Auto) 11.0 Eos % (Auto) 6.7 Baso % (Auto) 0.4 Nucleat RBC Rel Count 0.1 Neut # (Auto) 5.5 Lymph # (Auto) 1.6 [place] # (Auto) 1.0 H Eos # (Auto) [...] 03/24 04/16 1319 Signed By: 04/13/[address] [facility]02-22-2025 [place] [address] Hospitalist Progress Note Signed Patient: Corwin Muller MR#: [id number] : 1945 Acct:[id number] Age/Sex: 79 / M Adm Date: 5 Loc: Room: [address] [place] [address] Type: ADM IN Attending Dr: Jersey Bess [...] -Pt noted Afib with RVR -Continue on Claly smithip. -Started on Eliquis 2.5 mg BID -Continue [...] 04/13/24 11 44 Signed By: 04/13/[address] [facility]02-21-2025 Radiology Diagnostic study note [facility] [address] Ultrasound Report Signed Patient: Corwin Muller MR#: [id number] : 1945 Acct:[id number] Age/Sex: 79 / M ADM Date: 5 Loc: Room: [address] [place] [address] Type: ADM IN Attending Dr: Jersey Bess [...] Jones Pedro M.D.04/12/2024 9:34 PM Dictation Location: [facility] Tech: Lacey Archer Transcribed By: RK 04/12/242133 Dictated By: Jones Pedro II, MD 04/12/242132 Signed By: 04/12/242133 [facility] Work Phone: 1(471) 282-836202-21-2025 Progress note Author Keron Gutierres [facility] Note Date/Time April 12, 2024 6:17pm [facility] [address] [place] [address] Cardiology Progress Note Signed Patient: Corwin Muller MR#: [id number] : 1945 Acct:[id number] Age/Sex: 79 / M Adm Date: 5 Loc: Room: [address] [place] [address] Type: ADM IN Attending Dr: Jersey Bess MD Copies to: ~ Date of Service: 04/12/2024 Subjective Principal diagnosis: Congestive heart failure/atrial fibrillation Interval history: Mr. Muller is a 79 year old male was sent by his physician to the hospital because of observation of worsening respiratory status and tachycardia. He was evaluated in the emergency room at [place]. The patient described progressive shortness of breath [...] elevated when the patient was sent to [facility] for further care. The patient denies chest [...] % (Auto) 60.4 Lymph % (Auto) 23.6 [place] % (Auto) 11.0 Eos % (Auto) 4.7 Baso % (Auto) 0.3 Nucleat RBC Rel Count 0.1 Neut # (Auto) 6.6 Lymph # (Auto) 2.6 [place] # (Auto) 1.2 H Eos # (Auto) [...] Color Urine Appearance Urine pH Ur Specific [place] Urine Protein Urine Glucose (UA) Urine Ketones [...] MPV Neut % (Auto) Lymph % (Auto) [place] % (Auto) Eos % (Auto) Baso % (Auto) Nucleat RBC Rel Count Neut # (Auto) Lymph # (Auto) [place] # (Auto) Eos # (Auto) Baso # (Auto) Heparin Anti-Xa, Unfract 0.32 PHA Creatinine Clear Sodium Potassium Chloride Carbon Dioxide Anion Gap BUN Creatinine Est GFR (CKD-EPI) Glucose Calcium Total Bilirubin AST ALT Alkaline Phosphatase Total Protein Albumin Globulin Albumin/Globulin Ratio Urine Color Light-orange A Urine Appearance Turbid A Urine pH 5.5 Ur Specific [place] 1.011 Urine Protein 50 H Urine Glucose [...] the bedside Documented By: Keron Gutierres MD, [facility] 1811 Signed By: <Electronically signed by [facility] Keron Gutierres> 04/12/24 181 [facility] Work Phone: 1(953) 339-110802-21-2025 [place] [address] Cardiology Progress Note Signed Patient: Corwin Muller MR#: [id number] : 1945 Acct:[id number] Age/Sex: 79 / M Adm Date: 5 Loc: Room: [address] [place] [address] Type: ADM IN Attending Dr: Jersey Bess MD Copies to: ~ Date of Service: 04/12/2024 Subjective Principal diagnosis: Congestive heart failure/atrial fibrillation Interval history: Mr. Muller is a 79 year old male was sent by his physician to the hospital because of observationof worsening respiratory status and tachycardia. He was evaluated in the emergency room at [place]. The patient described progressive shortness of breath [...] elevated when the patient was sent to [facility] for further care. Thepatient denies chest pain [...] % (Auto) 60.4 Lymph % (Auto) 23.6 [place] % (Auto) 11.0 Eos % (Auto) 4.7 Baso % (Auto) 0.3 Nucleat RBC Rel Count 0.1 Neut # (Auto) 6.6 Lymph # (Auto) 2.6 [place] # (Auto) 1.2 H Eos # (Auto) [...] Color Urine Appearance Urine pH Ur Specific [place] Urine Protein Urine Glucose (UA) Urine Ketones [...] MPV Neut % (Auto) Lymph % (Auto) [place] % (Auto) Eos % (Auto) Baso % (Auto) Nucleat RBC Rel Count Neut # (Auto) Lymph # (Auto) [place] # (Auto) Eos # (Auto) Baso # (Auto) Heparin Anti-Xa, Unfract 0.32 PHA Creatinine Clear Sodium Potassium Chloride Carbon Dioxide Anion Gap BUN Creatinine Est GFR (CKD-EPI) Glucose Calcium Total Bilirubin AST ALT Alkaline Phosphatase Total Protein Albumin Globulin Albumin/Globulin Ratio Urine Color Light-orange A Urine Appearance Turbid A Urine pH 5.5 Ur Specific [place] 1.011 Urine Protein 50 H Urine Glucose [...] the bedside Documented By: Keron Gutierres MD, [facility] 1811 Signed By: 04/12/241816 [facility]02-21-2025 Progress note Author Jersey Bess [facility] Note Date/Time April 12, 2024 3:42pm [facility] [address] [place] [address] Hospitalist Progress Note Signed Patient: Corwin Muller MR#: [id number] : 1945 Acct:[id number] Age/Sex: 79 / M Adm Date: 5 Loc: Room: [address] [place] [address] Type: ADM IN Attending Dr: Jersey Bess [...] 04/11/24 09:00 04/12/24 08:28 Aspirin 81 Mg Tablet. PO 04/11/25 08:59 81 mg DAILY [facility] Administration Carvedilol 6.25 mg 04/11/24 08:00 04/12/24 08:28 Carvedilol 6.25 Mg Tablet PO 04/11/25 07:59 6.25 mg BID.WITH.MEALS [facility] Administration Furosemide 40 mg 04/12/24 16:00 Furosemide 40 Mg Tablet PO 04/12/25 15:59 BID@0800,1600 [facility] Heparin Sodium (Porcine) 2,000 unit 04/11/24 10:14 [...] Cardizem IV 04/11/25 10:14 Not Given .Q10H [facility] Protocol 10 MG/HR Heparin Sodium/Sodium Chloride 25,000 unit in 250 mls @ 9.99 mls/hr 04/11/24 10:15 04/12/24 12:05 Heparin IV 04/11/25 10:14 Not Given .Q24H [facility] Protocol 9.68 UNIT/KG/HR Ceftriaxone Sodium 1 gm [...] <Electronically signed by Jersey Bess MD> 04/12/24 1547 [facility] Work Phone: 1(408) 238-328302-21-[address] [address] Hospitalist Progress Note Signed Patient: Corwin Muller MR#: [id number] : 1945 Acct:[id number] Age/Sex: 79 / M Adm Date: 5 Loc: Room: [address] [place] [address] Type: ADM IN Attending Dr: Jersey Bess [...] 40 Mg Tablet PO 04/12/25 15:59 BID@0800,1600 [facility] Heparin Sodium (Porcine) 2,000 unit 04/11/24 10:14 [...] MD 04/12/24 15 37 Signed By: 04/12/[address] [place], [place] 9612302-21-2025 Consult note Author Tobi Monroy [facility] Note Date/Time April 12, 2024 10:34am [facility] [address] [place] [address] Nephrology Consult Note Signed Patient: Corwin Muller MR#: [id number] : 1945 Acct:[id number] Age/Sex: 79 / M Adm Date: 5 Loc: Room: [address] [place] [address] Type: ADM IN Attending Dr: Jersey Bess [...] that time. He was evaluated in the [facility] with EKG showing SVT and inverted T [...] polydipsia Dermatological: denies any itching or rash [facility] Medical History (Updated 04/12/24 @ 10:33 by [...] 200 Mg Tablet) 400 mg PO TID [facility] Stop: 04/11/25 13:59 Last Admin: 04/12/24 08:28 Dose: 400 mg Aspirin (Aspirin 81 Mg Tablet.Dr) 81 mg PO DAILY [facility] Stop: 04/11/25 08:59 Last Admin: 04/12/24 08:28 Dose: 81 mg Carvedilol (Carvedilol 6.25 Mg Tablet) 6.25 mg PO BID.WITH.MEALS [facility] Stop: 04/11/25 07:59 Last Admin: 04/12/24 08:28 Dose: 6.25 mg Furosemide (Furosemide 40 Mg/4 Ml Vial) 40 mg IV-PUSH BID@0800,1600 [facility] Stop: 04/11/25 15:59 Last Admin: 04/12/24 08:28 Dose: 40 mg Heparin Sodium (Porcine) (Heparin *Protocol Bolus* 5,000 Unit/Ml Vial) 2,000 unit IV-PUSH PROTOCOL PRN PRN Reason: Anti-Xa < 0.1 or aPTT < 40 Stop: 04/11/25 10:13 Hydralazine HCl (Hydralazine 50 Mg Tablet) 50 mg PO BID [facility] Stop: 04/11/25 20:59 Last Admin: 04/11/24 21:45 Dose: Not Given Diltiazem HCl (Cardizem) 100 mg in 100 mls @ 10 mls/hr IV .Q10H [facility]; Protocol Stop: 04/11/25 10:14 Last Admin: 04/12/24 06:07 Dose: 10 mg/hr, 10 mls/hr Heparin Sodium/Sodium Chloride (Heparin) 25,000 unit in 250 mls @ 9.99 mls/hr IV .Q24H [facility]; Protocol Stop: 04/11/25 10:14 Last Titration: 04/12/24 01:48 Dose: 14.68 unit/kg/hr, 15.15 mls/hr Isosorbide Mononitrate (Isosorbide Mononitrate 24hr Er 60 Mg Tab.Er.24h) 60 mg PO DAILY.6A [facility] Stop: 04/11/25 11:59 Last Admin: 04/12/24 06:10 [...] 10 Ml Syringe) 0 ml IV-PUSH QSHIFT [facility] Stop: 04/10/25 05:59 Last Admin: 04/12/24 06:11 [...] infarction): Assessment/Problem Details: Patient was admitted for PR and his echocardiogram showed EF 35 to [...] Tobi Monroy MD 04/12/24 0855 Signed By: <Electronically signed by Tobi Monroy MD> 04/12/24 1034 <Electronically signed by DO NIKO Carpenter> 04/12/24 1022 [facility] Work Phone: 1(476) 845-838002-21-2025 [place] [address] Nephrology Consult Note Signed Patient: Corwin Muller MR#: [id number] : 1945 Acct:[id number] Age/Sex: 79 / M Adm Date: 5 Loc: Room: [address] [place] [address] Type: ADM IN Attending Dr: Jersey Bess [...] that time. He was evaluated in the [facility] with EKG showingSVT and inverted T waves. [...] polydipsia Dermatological: denies any itching or rash [facility] Medical History (Updated 04/12/24 @ 10:33 by [...] 200 Mg Tablet) 400 mg PO TID [facility] Stop: 04/11/25 13:59 Last Admin: 04/12/24 08:28 Dose: 400 mg Aspirin (Aspirin 81 Mg Tablet.Dr) 81 mg PO DAILY [facility] Stop: 04/11/25 08:59 Last Admin: 04/12/24 08:28 Dose: 81 mg Carvedilol (Carvedilol 6.25 Mg Tablet) 6.25 mg PO BID.WITH.MEALS [facility] Stop: 04/11/25 07:59 Last Admin: 04/12/24 08:28 Dose: 6.25 mg Furosemide (Furosemide 40 Mg/4 Ml Vial) 40 mg IV-PUSH BID@0800,1600 [facility] Stop: 04/11/25 15:59 Last Admin: 04/12/24 08:28 Dose: 40 mg Heparin Sodium (Porcine) (Heparin *Protocol Bolus* 5,000 Unit/Ml Vial) 2,000 unit IV-PUSH PROTOCOL PRN PRN Reason: Anti-Xa < 0.1 or aPTT < 40 Stop: 04/11/25 10:13 Hydralazine HCl (Hydralazine 50 Mg Tablet) 50 mg PO BID [facility] Stop: 04/11/25 20:59 Last Admin: 04/11/24 21:45 Dose: Not Given Diltiazem HCl (Cardizem) 100 mg in 100 mls @ 10 mls/hr IV .Q10H [facility]; Protocol Stop: 04/11/25 10:14 Last Admin: 04/12/24 06:07 Dose: 10 mg/hr, 10 mls/hr Heparin Sodium/Sodium Chloride (Heparin) 25,000 unit in 250 mls @ 9.99 mls/hr IV .Q24H [facility]; Protocol Stop: 04/11/25 10:14 Last Titration: 04/12/24 01:48 Dose: 14.68 unit/kg/hr, 15.15 mls/hr Isosorbide Mononitrate (Isosorbide Mononitrate 24hr Er 60 Mg Tab.Er.24h) 60 mg PO DAILY.6A [facility] Stop: 04/11/25 11:59 Last Admin: 04/12/24 06:10 [...] 10 Ml Syringe) 0 ml IV-PUSH QSHIFT [facility] Stop: 04/10/25 05:59 Last Admin: 04/12/24 06:11 [...] infarction): Assessment/Problem Details: Patient was admitted for PR and his echocardiogram showed EF 35 to [...] 0855 Signed By: 04/12/24 1034 04/12/[address] [facility]02-20-2025 Progress note Author Keron Gutierres [facility] Note Date/Time April 11, 2024 12:56pm [facility] [address] [place] [address] Cardiology Progress Note Signed Patient: Corwin Muller MR#: [id number] : 1945 Acct:[id number] Age/Sex: 79 / M Adm Date: 5 Loc: 4 Room: 4E9327-1 Type: ADM IN Attending Dr: Jersey Bess MD Copies to: ~ Date of Service: 04/11/2024 Subjective Principal diagnosis: Congestive heart failure/atrial fibrillation Interval history: Mr. Muller is a 79 year old male was sent by his physician to the hospital because of observation of worsening respiratory status and tachycardia. He was evaluated in the emergency room at [place]. The patient described progressive shortness of breath [...] elevated when the patient was sent to [facility] for further care. The patient denies chest [...] % (Auto) 63.0 Lymph % (Auto) 21.4 [place] % (Auto) 10.9 Eos % (Auto) 4.3 Baso % (Auto) 0.4 Nucleat RBC Rel Count 0.1 Neut # (Auto) 5.9 Lymph # (Auto) 2.0 [place] # (Auto) 1.0 H Eos # (Auto) [...] the bedside Documented By: Keron Gutierres MD, [facility] 5 1250 Signed By: <Electronically signed by MD JUAN Gutierres> 04/11/24 1256 [facility] Work Phone: 1(102) 222-404102-20-2025 Progress note Author Jersey Bess [facility] Note Date/Time April 11, 2024 12:15pm [facility] [address] [place] [address] Hospitalist Progress Note Signed Patient: Corwin Muller MR#: [id number] : 1945 Acct:[id number] Age/Sex: 79 / M Adm Date: 5 Loc: Room: [address] [place] [address] Type: ADM IN Attending Dr: Jersey Bess [...] 04/11/24 09:00 04/11/24 08:09 Aspirin 81 Mg Tablet.Dr PO 04/11/25 08:59 [...] <Electronically signed by Jersey Bess MD> 04/11/[address] [place] [address] Work Phone: 1(208) 799-299402-20-2025 [place] [address] Cardiology Progress Note Signed Patient: Corwin Muller MR#: [id number] : 1945 Acct:[id number] Age/Sex: 79 / M Adm Date: 5 Loc: Room: [address] [place] [address] Type: ADM IN Attending Dr: Jersey Bess MD Copies to: ~ Date of Service: 04/11/2024 Subjective Principal diagnosis: Congestive heart failure/atrial fibrillation Interval history: Mr. Muller is a 79 year old male was sent by his physician to the hospital because of observationof worsening respiratory status and tachycardia. He was evaluated in the emergency room at [place]. The patient described progressive shortness of breath [...] elevated when the patient was sent to [facility] for further care. Thepatient denies chest pain [...] % (Auto) 63.0 Lymph % (Auto) 21.4 [place] % (Auto) 10.9 Eos % (Auto) 4.3 Baso % (Auto) 0.4 Nucleat RBC Rel Count 0.1 Neut # (Auto) 5.9 Lymph # (Auto) 2.0 [place] # (Auto) 1.0 H Eos # (Auto) [...] the bedside Documented By: Keron Gutierres MD, [facility] 5 1250 Signed By: 04/11/[address] [facility]02-20-2025 [place] [address] Hospitalist Progress Note Signed Patient: Corwin Muller MR#: [id number] : 1945 Acct:[id number] Age/Sex: 79 / M Adm Date: 5 Loc: Room: [address] [place] [address] Type: ADM IN Attending Dr: Jersey Bess [...] 04/11/24 09:00 04/11/24 08:09 Aspirin 81 Mg Tablet.Dr PO 04/11/25 08:59 [...] MD 04/11/24 11 57 Signed By: 04/11/[address], [place] 6604202-19-2025 Consult note Author Mely Ken [facility] Note Date/Time April 10, 2024 6:17pm [facility] [address] [place] [address] Cardiology Consult Note Signed Patient: Corwin Muller MR#: [id number] : 1945 Acct:[id number] Age/Sex: 79 / M Adm Date: 5 Loc: Room: [address] [place] [address] Type: ADM IN Attending Dr: Jersey Bess [...] was evaluated in the emergency room at [place]. The patient described progressive shortness of breath [...] elevated when the patient was sent to [facility] for further care. The patient denies chest [...] shortness of breath, orthopnea and the pain [facility] Medical History Atrial tachycardia Chronic kidney disease Lumbar spondylosis Hyperlipidemia type II Primary osteoarthritis of right knee Primary osteoarthritis of left knee Knee pain Hypertension Elevated cholesterol Surgical History H/O hernia repair Family History Father 67 yrs Aortic aneurysm and dissection Mother 90 yrs History of stroke [facility] Problem: Diagnosed with Stroke Stroke Brother Diabetes [...] x10E3/uL Lymph # (Auto) 2.0 (1.00-4.8) x10E3/uL [place] # (Auto) 1.1 H (0.0-0.8) x10E3/uL Eos [...] / 350 200 / 350 Output Total / 1999 1599 / 1999 Balance -250 / -1650 -1400 / -1650 Intake: Oral 150 / 350 200 / 350 Output: Urine Amount (Catheter) 400 / 1999 1600 / 2000 Urethral (Ruiz) 400 / 1999 1600 / 1999 Other: Weight 103.2 kg Date [...] great length Documented By: Mely Ken MD 04/10/24 180 Signed By: <Electronically signed by MD Mely Ken> 04/10/241816 [facility] Work Phone: 1(413) 747-800702-19-2025 [place] [address] Cardiology Consult Note Signed Patient: Corwin Muller MR#: [id number] : 1945 Acct:[id number] Age/Sex: 79 / M Adm Date: 5 Loc: Room: [address] [place] [address] Type: ADM IN Attending Dr: Jersey Bess [...] was evaluated in the emergency room at [place]. The patient described progressive shortness of breath [...] elevated when the patient was sent to [facility] for further care. Thepatient denies chest pain [...] shortness of breath, orthopnea and the pain [facility] Medical History Atrial tachycardia Chronic kidney disease Lumbar spondylosis Hyperlipidemia type II Primary osteoarthritis of right knee Primary osteoarthritis of left knee Knee pain Hypertension Elevated cholesterol Surgical History H/O hernia repair Family History Father 67 yrs Aortic aneurysm and dissection Mother 90 yrs History of stroke [facility] Problem: Diagnosed with Stroke Stroke Brother Diabetes [...] x10E3/uL Lymph # (Auto) 2.0 (1.00-4.8) x10E3/uL [place] # (Auto) 1.1 H (0.0-0.8) x10E3/uL Eos [...] Output: Urine Amount (Catheter) 400 / 1999 1600 / 1999 Urethral (Ruiz) 400 / 1999 1600 / 1999 Other: Weight 103.2 kg Date [...] Mely Ken MD 04/10/241806 Signed By: 04/10/241816 [facility]02-19-2025 Progress note Author Jersey Bess [facility] Note Date/Time April 10, 2024 2:38pm [facility] [address] [place] [address] Progress Note Signed Patient: Corwin Muller MR#: [id number] : 1945 Acct:[id number] Age/Sex: 79 / M Adm Date: 5 Loc: Room: [address] [place] [address] Type: ADM IN Attending Dr: Jersey Bess [...] <Electronically signed by Jersey Bess MD> 04/10/[address] [place] [address] Ctr Work Phone: 1(862) 114-649302-19-2025 [place] [id number] Progress Note Signed Patient: Corwin Muller MR#: [id number] : 1945 Acct:[id number] Age/Sex: 79 / M Adm Date: 5 Loc: Room: [address] [place] [address] Type: ADM IN Attending Dr: Jersey Bess [...] MD 04/10/24 14 34 Signed By: 04/10/[address] [place], [place] 9917902-19-2025 History and physical note Author Holly Weinberg [facility] Note Date/Time April 10, 2024 6:45am [facility] [address] [place], [place] [address] Hospitalist H&P Signed Patient: Corwin Muller MR#: [id number] : 1945 Acct:[id number] Age/Sex: 79 / M Adm Date: 5 Loc: Room: 3A1747-9 Type: ADM IN Attending Dr: Kurtis Langley MD Copies to: MD Ranjan Soto,DO Holly Weinberg, TEST RACK OPERATOR~ HPI DATE OF EXAMINATION: 04/10/24 CHIEF COMPLAINT: [...] Findings were consistent with acute pulmonary edema. Xinva-rs-vidf ultrasound confirmed scattered B-lines bilaterally, there was [...] drinks alcohol. States that he exercises daily. [facility] chart review?initial EKG SVT with a rate [...] unless noted in the HPI or below. [facility] Medical History Atrial tachycardia Chronic kidney disease Lumbar spondylosis Hyperlipidemia type II Primary osteoarthritis of right knee Primary osteoarthritis of left knee Knee pain Hypertension Elevated cholesterol Surgical History H/O hernia repair Family History (Updated 04/10/24 @ 04:14 by Holly Weinberg APRN) Father 67 yrs Aortic aneurysm and dissection Mother 90 yrs [facility]: Diagnosed with St[facility] Stroke Brother Diabetes [...] days): 3 Documented By: Holly Weinberg APRN 04/10/24 0411 Signed By: <Electronically signed by SUBHASH Weinberg> 04/10/24 0422 <Electronically signed by Kurtis Langley MD> 04/10/24 0645 [facility] Work Phone: 1(952) 255-991502-19-2025 [place] [address] Hospitalist H&P Signed Patient: Corwin Muller MR#: [id number] : 1945 Acct:[id number] Age/Sex: 79 / M Adm Date: 5 Loc: Room: [address] [place] [address] Type: ADM IN Attending Dr: Kurtis Langley [...] were con sistent with acute pulmonary edema. Cnuno-wt-ihrg ultrasound confirmed scattered B-lines bilaterally, there was [...] drinks alcohol. States that he exercises daily. [facility] chart review?initial EKG SVT with a rate [...] unless noted in the HPI or below. [facility] Medical History Atrial tachycardia Chronic kidney disease [...] of days): 3 Documented By: Holly Weinberg, TEST RACK OPERATOR 04/10/24 0411 Signed By: 04/10/24 0422 04/10/[address] [facility]02-18-2025 Evaluation note* Diagnosis Onset Date Resolution Status Admit Date Atrial tachycardia acute 2024 2:27pm Elevated cholesterol acute ua2024 2:27pm Hypertension acute March 2:27pm Chronic kidney disease deleted Fe bruary 2024 2:27pm Acute hypoxic respiratory failure acute April 10, 2 025 1:30am Acute kidney injury superimposed on CKD acute March 1:30am Acute pulmonary edema acute Feb ruary 2024 1:30am Acute systolic CHF (congesti ve heart failure) acute April 10, 2 025 1:30am Cardiomyopathy acute March 232024 1:30am CHF (congestive heart failure) acute April 10, 2024 1:30am CKD (chronic kidney disease) stage 3, GFR 30-59 ml/min acute 2024 1:30am HFrEF (heart failure with reduced ejection fraction) acute u 2024 1:30am Hypertension acute March 1:30am NSTEMI (non-ST elevated myocardial infarction) acute April 10, 2024 1:30am Paroxysmal atrial fibrillati on with RVR acute April 10 025 1:30am SVT (supraventricular tachycardia) acute April 10 025 1:30am UTI (urinary tract infection) acute April 10, 2024 1:30am Chronic kidney disease deleted lenox 2024 1:30am [facility] Work Phone: [phone]) 814-846402-18-2025 Evaluation note* Diagnosis Onset Date Resolution Status Admit Date Elevated cholesterol acute ua2024 2:27pm Hypertension acute March 2:27pm Atrial tachycardia deleted 2024 2:27pm Chronic kidney disease deleted 2024 2:27pm Acute kidney injury superimposed on CKD acute March 1:30am CKD (chronic kidney disease) stage 3, GFR 30-59 ml/min acute 2024 1:30am HFrEF (heart failure with reduced ejection fraction) acute 2024 1:30am Hypertension acute March 1:30am NSTEMI (non-ST elevated myocardial infarction) acute April 10, 2024 1:30am Paroxysmal atrial fibrillati on with RVR acute April 10 025 1:30am Acute hypoxic respiratory failure resolved April 10 025 1:30am Acute pulmonary edema resolved Feb ruary 2024 1:30am Acute systolic CHF (congesti ve heart failure) resolved April 10 025 1:30am CHF (congestive heart failure) resol kay April 10, 2024 1:30am SVT (supraventricular tachycardia) resolved April 10 025 1:30am UTI (urinary tract infection) resolv ed April 10, 2024 1:30am Cardiomyopathy deleted March 232024 1:30am Chronic kidney disease deleted bruary 2024 1:30am Atrial fibrillation acute April 23, 2024 10:21am Chronic kidney disease acute [facility] 2024 10:21am Elevated cholesterol acute Jozef h 2024 10:21am HFrEF (heart failure with reduced ejection fraction) acute April 23, 2024 10:21am Hypertension acute April 23 025 10:21am Ischemic cardiomyopathy acute [facility] 2024 10:21am [facility] Work Phone: 1([phone]) 783-326702-18-2025 Evaluation note* Diagnosis Onset Date Resolution Status Admit Date Elevated cholesterol acute Febr uary 2024 2:27pm Hypertension acute March 2:27pm Atrial tachycardia deleted 2024 2:27pm Chronic kidney disease deleted 2024 2:27pm Acute kidney injury superimp osed on CKD acute April 10 025 1:30am CKD (chronic kidney disease) stage 3, GFR 30-59 ml/min acute 2024 1:30am HFrEF (heart failure with re duced ejection fraction) acute March 1:30am Hypertension acute March 1:30am NSTEMI (non-ST elevated myocardial infarction) acute April 10, 2024 1:30am Paroxysmal atrial fibrillati on with RVR acute April 10 025 1:30am Acute hypoxic respiratory failure re solved April 10, 2024 1:30am Acute pulmonary edema resolved Feb ruary 2024 1:30am Acute systolic CHF (congesti ve heart failure) resolved April 10 025 1:30am CHF (congestive heart failure) resol kay April 10, 2024 1:30am SVT (supraventricular tachycardia) resolved April 10 025 1:30am UTI (urinary tract infection) resolv ed April 10, 2024 1:30am Cardiomyopathy deleted March 232024 1:30am Chronic kidney disease deleted Fe brulenox 2024 1:30am Atrial fibrillation acute April 23, 2024 10:21am Chronic kidney disease acute [facility] 2024 10:21am Elevated cholesterol acute Jozef h 2024 10:21am HFrEF (heart failure with re duced ejection fraction) acute April 23 10:21am Hypertension acute April 23 025 10:21am Ischemic cardiomyopathy acute M arch 2024 10:21am Atrial fibrillation acute April 23, 2024 2:57pm CKD (chronic kidney disease) stage 4, GFR 15-29 ml/min acute April 23, 2024 2:57pm Elevated cholesterol acute Jozef 2024 2:57pm HFrEF (heart failure with re duced ejection fraction) acute April 23 2:57pm Ischemic cardiomyopathy acute M arch 2024 2:57pm Secondary hyperparathyroidism acute April 23, 2024 2:57pm [facility] Work Phone: [phone]) 806-219512-22-2023 Evaluation note* Encounter Date Diagnosis Assessment Notes [...] bracing and Tylenol. Avoid squatting or kneeling [employer] Other 12-22-2023 History general Narrative - Reported* [...] History COLONOSCOPY 2010 Hospitalization History SEE SURGICAL [facility] [employer] Other 09-18-2023 History general Narrative - Reported* [...] History COLONOSCOPY 2010 Hospitalization History SEE SURGICAL [facility] Other 08-23-2023 History general Narrative - Reported* [...] History COLONOSCOPY 2010 Hospitalization History SEE SURGICAL [facility] Other 08-15-2023 History general Narrative - Reported* [...] History COLONOSCOPY 2010 Hospitalization History SEE SURGICAL [facility] Other 08-14-2023 Evaluation note* Encounter Date Diagnosis [...] best 2/3 readings w/ goal < 135-85 [employer] Other 05-30-2023 Evaluation note* Encounter Date Diagnosis [...] q HS for week. No improvement, irrigate [employer] Other Evaluation noteNo [employer]Nort [employer] Other Evaluation note* Diagnosis Onset Date Resolution Status Elevated cholesterol acute Hypertension acute Knee pain acute Primary osteoarthritis of left knee acute Primary osteoarthritis of right knee acute [facility] Work Phone: Evaluation note* Diagnosis Onset Date Resolution Status Admit Date Elevated cholesterol acute Febr ua2024 2:27pm Hypertension acute March 2:27pm Knee pain acute April 09, 2024 2:27pm Primary osteoarthritis of le ft knee acute April 09, 2 025 2:27pm Primary osteoarthritis of ri ght knee acute April 09 2 025 2:27pm [facility] Work Phone: Evaluation note* Diagnosis Cardiomyopathy, ischemic- Primary Other specified forms of chronic ischemic heart disease Tachycardia Unspecified tachycardia Persistent atrial fibrillation (Multi) Atrial fibrillation High risk medication use Abnormal stress test Other nonspecific abnormal cardiovascular system function study Mixed hyperlipidemia Essential hypertension Unspecified essential hypertension 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 IV, 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) 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 IV, or unspecified BMI 27.0-27.9,adult documented in this encounter [facility] Work Phone: History general Narrative - Reported* [...] COLONOSCOPY 2010 Hospitalization History SEE SURGICAL HX [employer] Other Summary Purpose Family History No Family [...] 09 2:27pm Acute hypoxic respiratory failure Februa ry 2024 1:30am Acute kidney injury superimposed on [...] 10, 2024 1:30am SVT (supraventricular tachycardia) Febru chidi2024 1:30am UTI (urinary tract infection) March 232024 1:30am Chronic kidney disease April 10 1:30am Chief Complaint Admit Date bilateral knee cortisone shots April 09, 2024 2:27pm A-fib RVR, Elevated Troponin April 102024 1:30am A-fib RVR, Elevated Troponin April 122024 8:55am A-fib RVR, Elevated Troponin April 132024 1:19pm A-fib RVR, Elevated Troponin April 162024 2:01pm Amb Documentation April 22, 2024 8:30 am afib rvr April 23, 2024 10:2 1am Reason for Visit Admit Date Elevated cholesterol April 09, 2024 2:27pm Hypertension April 09, 2024 2:27pm Atrial tachycardia April 09, 2024 2:27pm Chronic kidney disease April 09 2:27pm Acute kidney injury superimposed on CKD April 10, 2024 1:30am CKD (chronic kidney disease) stage 3, GF R 30-59 ml/min April 10, 2024 1:30am HFrEF (heart failure with reduced ejecti on fraction) April 10, 2024 1:30am Hypertension April 10, 2024 1:30am NSTEMI (non-ST elevated myocardial infar ction) April 10, 2024 1:30am Paroxysmal atrial fibrillation with RVR April 10, 2024 1:30am Acute hypoxic respiratory failure Februa 2024 1:30am Acute pulmonary edema April 10 1:30am Acute systolic CHF (congestive heart to lure) April 10, 2024 1:30am CHF (congestive heart failure) April 10, 2024 1:30am SVT (supraventricular tachycardia) Febru chidi 2024 1:30am UTI (urinary tract infection) March 232024 1:30am Cardiomyopathy April 10, 2024 1:30am Chronic kidney disease April 10 1:30am Atrial fibrillation April 23, 2024 10:2 1am Chronic kidney disease April 23, 2024 1 0:21am Elevated cholesterol April 23, 2024 10: 21am HFrEF (heart failure with reduced ejecti on fraction) April 23, 2024 10:21am Hypertension April 23, 2024 10:2 1am Ischemic cardiomyopathy April 23, 2024 10:21am Chief Complaint Admit Date bilateral knee cortisone shots April 09, 2024 2:27pm A-fib RVR, Elevated Troponin April 102024 1:30am A-fib RVR, Elevated Troponin April 122024 8:55am A-fib RVR, Elevated Troponin April 132024 1:19pm A-fib RVR, Elevated Troponin April 162024 2:01pm Amb Documentation April 22, 2024 8:30 am afib rvr April 23, 2024 10:2 1am hospital f/u April 23, 2024 2:57 pm Reason for Visit Admit Date Elevated cholesterol April 09, 2024 2:27pm Hypertension April 09, 2024 2:27pm Atrial tachycardia April 09, 2024 2:27pm Chronic kidney disease April 09 2:27pm Acute kidney injury superimposed on CKD April 10, 2024 1:30am CKD (chronic kidney disease) stage 3, GF R 30-59 ml/min April 10, 2024 1:30am HFrEF (heart failure with reduced ejecti on fraction) April 10, 2024 1:30am Hypertension April 10, 2024 1:30am NSTEMI (non-ST elevated myocardial infar ction) April 10, 2024 1:30am Paroxysmal atrial fibrillation with RVR April 10, 2024 1:30am Acute hypoxic respiratory failure Februa 2024 1:30am Acute pulmonary edema April 10 1:30am Acute systolic CHF (congestive heart to lure) April 10, 2024 1:30am CHF (congestive heart failure) April 10, 2024 1:30am SVT (supraventricular tachycardia) u chidi2024 1:30am UTI (urinary tract infection) March 232024 1:30am Cardiomyopathy April 10, 2024 1:30am Chronic kidney disease April 10 1:30am Atrial fibrillation April 23, 2024 10:2 1am Chronic kidney disease April 23, 2024 1 0:21am Elevated cholesterol April 23, 2024 10: 21am HFrEF (heart failure with reduced ejecti on fraction) April 23, 2024 10:21am Hypertension April 23, 2024 10:2 1am Ischemic cardiomyopathy April 23, 2024 10:21am Atrial fibrillation April 23, 2024 2:57 pm CKD (chronic kidney disease) stage 4, GF R 15-29 ml/min April 23, 2024 2:57pm Elevated cholesterol April 23, 2024 2:5 7pm HFrEF (heart failure with reduced ejecti on fraction) April 23, 2024 2:57pm Ischemic cardiomyopathy April 23, 2024 2:57pm Secondary hyperparathyroidism April 23, 2024 2:57pm Additional Source Comments (unrecognized sect ion and content) No Status Records FoundNo Status Records Found INFORMATION SOURCE (unrecogn ized section and content) DATE CREATED AUTHOR 12/13/2021 [facility] DATE CREATED AUTHOR AUTHOR'S ORGANIZ ATION 05/04/2024 [facility] REASON FOR VISIT (unrecogniz ed section and content) Reason Comments Hospital Follow-up [facility] discharge 04/18 Specialty Diagnoses / Procedures Referred By Contac t Referred To Contact Diagnoses Persistent atrial fibrillation (Multi) Procedures ECG 12 Lead Mely Ken MD [address] [facility] [address], [facility] [address] [place] [address] Phone: tel: fax: Referral ID Status Reason Start Date Expiration Date V isits Requested Visits Authorized [id number] Authorized 04/29/2024 04/29/2025 1 1 Care Teams (unrecognized sec tion and content) Team Status: Active Member Role Status Dates Rajnan Lomas DO Primary Care Provider Active Team [...] Gaines MD Other Provider Active Start: eb2024 End: April 18, 2024 Lexi Archuleta MD Other Provider Active Start: April 10, 2024 End: April 18, 2024 Bret Castañeda MD Other Provider Active Start: [id number] End: April 18, 2024 Susana Velarde , SELF PROPELLED HOT MIX ROLLER OPERATOR-BC Other Provider Active Sta rt: April 10, 2024 End: April 18, 2024 Felicia Aguilar MD Other Provider Active Start: 2024 End: April 18, 2024 Tavia Hernandez NP-C Other Provider Active Start: April 10, 2024 [...] Bret Castañeda MD Other Provider Active Start: [id number] Susana Velarde SELF PROPELLED HOT MIX ROLLER OPERATOR-BC Other Provider Active Sta rt: April 12, 2024 Felicia Aguilar MD Other Provider Active Start: eb2024 CHRIST GómezC Other Provider Active Start: April 12, 2024 Tobi Monroy MD Attending Provider, Other Provider Active Start: April 12, 2024 Noel Lilly MD Other Provider Active Start: eb2024 Team Status: Active Member Role Status Yohana [...] Other Provider Active Start: April 13, 2024 Haliey Weinberg APRN Other Provider Active Start : April 13, 2024 Leonie Gaines MD Other Provider Active Start: ebruary 2024 Lexi Archuleta MD Other Provider Active Start: April 13, 2024 Bret Castañeda MD Other Provider Active Start: ebruary 2024 Susana Velarde SELF PROPELLED HOT MIX ROLLER OPERATOR-BC Other Provider Active Sta rt: April 13, 2024 Felicia Aguilar MD Other Provider Active Start: ebruary 2024 JEFFREY Gómez Other Provider Active Start: April 13, 2024 [...] Other Provider Active Start: April 16, 2024 Bert Castañeda MD Other Provider Active Start: ebruary 2024 Susana Velarde SELF PROPELLED HOT MIX ROLLER OPERATOR-MAX Other Provider Active Sta rt: April 16, 2024 Felicia Aguilar MD Other Provider Active Start: ebruary 2024 JEFFREY Gómez Other Provider Active Start: April 16, 2024 Tobi Monroy MD Other Provider Active Start: 2024 Noel Lilly MD Other Provider Active Start: F ebruary 2024 Gin Conrad MD Other Provider Active Start: Fe ary 2024 Luis Patel MD Attending Provider, Other Provider Active Start: April 16, 2024 Cathleen Kumari APRN Other Provider Active St art: April 16, 2024 [place] Latisha Curran Jr, DO Other Provider Active S tart: April 16, 2024 David Inman MD Other Provider Active Start: April 16, 2024 Team Status: Active Member Role Status Dates Ranjan Lomas DO Primary Care Provider Active Start: April 22, 2024 Charis Parker CMA Attending Provider Active Start: April 22, 2024 Team Status: Inactive Member Role Status Dates Ranjan Lomas DO Primary Care Provide r, Attending Provider Active Start: April 23, 2024 End: April 23, 2024 Team Status: Active Member Role Status Dates Ranjan Lomas DO Primary Care Provide r, Attending Provider Active Start: April 10, 2024 Team Status: Inactive Member Role Status Dates Ranjan Lomas DO Primary Care Provider Active Start: April 23, 2024 End: April 23, 2024 Tobi Monroy MD Attending Provider Active Start : April 23, 2024 End: April 23, 2024 Video Game Producer Relationship Specialty Start Date End Date Ranjan Lomas DO [address] [place] [address] PCP - General Internal Medicine 04/16/24 Echo Regalado RN [facility] 04/19/24 Goals (unrecognized section and content) Goals may [...] BE BASED ON THE PRIMARY CLINICAL RECORDS. [employer] provides no warranty or guarantee of the accuracy or completeness of information in this document.
[2024-05-07 10:38] LABS: Basophils Percent Auto 0.6 % (0.2-2.0); Eosinophils Absolute Auto 0.5 10^3/uL (0.0-0.7); Eosinophils Percent Auto 7.7 % (0.9-7.0); Hematocrit 45.3 % (42.0-54.0); Hemoglobin 15.5 g/dL (14.0-18.0); Immature Granulocytes Abs Auto 0.03 10^3/uL (0.00-0.03); Immature Granulocytes Pct Auto 0.4 % (0.0-0.5); Lymphocytes Absolute Auto 1.6 10^3/uL (1.2-3.8); Lymphocytes Percent Auto 22.9 % (20.5-60.0); Mean Corpuscular HGB Conc 34.2 g/dL (29.9-35.2); Mean Corpuscular Hemoglobin 30.2 pg (25.9-34.0); Mean Corpuscular Volume 88.3 fL (80.0-94.0); Mean Platelet Volume 10.5 fL (9.5-13.5); Monocytes Absolute Auto 0.6 10^3/uL (0.3-0.8); Monocytes Percent Auto 8.1 % (1.7-12.0); Neutrophils Absolute Auto 4.2 10^3/uL (1.4-6.5); Neutrophils Percent Auto 60.3 % (43.0-75.0); Platelet Count 189 10^3/uL (150-450); Red Blood Count 5.13 10^6/uL (4.70-6.10); Red Cell Distribution Width 13.1 % (11.0-15.0)
--- NOTE | 2024-05-07 10:42 | XR_ITS ---
The [address] [address] Patient Name: LIOR SMITH MRN: [id number] date: 1945 Sex: M Assigned Patient Location: CARD Current Patient Location: LAB Accession/Order Number: [id number] Exam Date: 05/07/2024 11:56 Report Date: 05/07/2024 11:57 At the request of: OKSANA ANDERSEN DO Procedure: XR chest 2V Chest 2 views CLINICAL HISTORY: Ischemic Cardiomyopathy, Heart Failure With Reduced Ejection COMPARISON: Chest 04/09/2024 FINDINGS: Heart normal in size. Mild bibasilar scarring. No consolidation pneumothorax pleural effusion or free air. XR/XR chest 2V IMPRESSION: NO ACUTE CARDIOPULMONARY ABNORMALITY. Impression dictated by: Luis Vidal Jr., D.O.05/07/2024 11:57 AM Dictation Location: [place] [address] Electronically authenticated by: [id number] Y Date: 05/07/2024 11:57
[2024-05-07 11:43] LABS: Anion Gap 15.2; BUN Creatinine Ratio 13.5; Carbon Dioxide 26.8 mmol/L (21.0-32.0); Chloride 102 mmol/L (98-107); Estimated GFR (African America 24 (>=60 mL/min/1.73m^2); Estimated GFR (Non-African Ame 19 (>=60 mL/min/1.73m^2); Glucose 130 mg/dL (74-106); Sodium 140 mmol/L (136-145)
== END 2024-05-07 10:11 | disposition home or self-care (01) ==
LOC: CARD 10:13
PROVIDERS: PCP Internal Medicine; Visit Provider Internal Medicine
DX: D64.9 Anemia, unspecified (principal); N18.4 Chronic kidney disease, stage 4 (severe); I25.5 Ischemic cardiomyopathy; I48.0 Paroxysmal atrial fibrillation; I50.20 Unspecified systolic (congestive) heart failure
CPT/HCPCS: 36415; 71046; 80048; 82728; 85025

== ENCOUNTER 2024-05-13 12:02 | Outpatient (OUT) | payer MEDICARE, OTHER, SELFPAY ==
--- OUTSIDE RECORDS SUMMARY | 2024-05-13 12:20 | XMS_ITS | CCD ---
Author Organization [facility] [place] Care Team Providers Care Configuration Release Manager Name Role Phone NATHALY, DR GANDHI Admitting Unavailable NATHALY, DR GANDHI Attending Unavailable NATHALY, DR GANDHI Primary Care Unavailable NATHALY, DR GANDHI Consulting Unavailable Nathaly, Ranjan Unavailable Ranjan Lomas DO Primary Care Provider Shivam ANGUIANO, Kurtis Admit Provider [phone] Ai Orantes RN Other Provider Unavailable Dequan Kirkpatrick DO Other Provider Bhavik ANGUIANO, Keron Other Provider [phone] Tyshawn ANGUIANO, Gurjit Mike Other Provider Suellen ANGUIANO, Mely Other Provider [phone] Yvan Mckeon MD Other Provider Hailey Weinberg APRN Other Provider Leonie Gaines MD Other Provider Geremias ANGUIANO, Lexi Leach Other Provider Bret Castañeda MD Other Provider Syd [facility]-, Susaan Good Other Provider [phone] Felicia Aguilar MD Other Provider David TELEPHONE SEX WORKER-C, Tavia Other Provider Unavailable Eliana ANGUIANO, Tboi Other Provider Noel Lilly MD Other Provider Gin Conrad MD Other Provider Luis Patel MD Other Provider Cathleen Kumari APRN Other Provider Belcik DO, Overton L Other Provider [phone] David Inman MD Other Provider [phone] Jn Yanes MD Attending Provider [phone] Nathaly Ranjan Muna Primary Care Provider Echo Regalado RN Unavailable Unavailable Jn Yanes Attending Unavailable Ranjan [...] Velarde Consulting Unavailable Felicia Aguilar Consulting Unavailable Runzoraida, Tavia Consulting Unavailable Eliana, Tobi Consulting Unavailable Bakjeralds, Aziz Consulting Unavailable Anamaria, Gin Consulting Unavailable Luis Patel Consulting Unavailable Turkaden, Cathleen Consulting Unavailable Dmitriy Curran Jrct L Consulting [facility] David Melton Consulting Unavaila Ranjan Moyer DO Primary Care Provider Kurtis Langley MD Admit Provider Ai Orantes RN Other Provider Unavailable Dequan Kirkpatrick DO Other Provider Keron Gutierres MD Other Provider [phone] Gurjit Villagran MD Other Provider Mely Ken MD Other Provider Yvan Mckeon MD Other Provider Hailey Weinberg APRN Other Provider Leonie Gaines MD Other Provider Lexi Archuleta MD Other Provider Bret Castañeda MD Other Provider [facility] Other Provider Jeff ANGUIANO, Felicia Other Provider David TELEPHONE SEX WORKER-C, Tavia Other Provider Unavailable Tobi Monroy MD Other Provider Vijaya ANGUIANO, Noel Other Provider Gin Conrad MD Other Provider Luis Patel MD Other Provider Cathleen Kumari APRN Other Provider [phone] Colt Curran DO Other Provider [phone] Storm ANGUIANO, David Martin Other Provider Jn Yanes MD Attending Provider [phone] Medications Current Medications Medication Drug Class(es) Dates Sig (Normalized) Sig (Original) amiodarone hydrochloride 200 mg oral tablet (7 sources) Antiarrhythmic Start: 04-29-2024 End: 04-29-2025 take 0.5 tablet by mouth once daily amiodarone (Pacerone) 200 mg tablet Indications: Persistent atrial fibrillation (Multi) Take 0.5 tablets (100 mg) by mouth once daily. 45 tablet 3 04/29/2024 04/29/2025 Active Start: 04-29-2024 take 2 tablets by mo uth once daily, then take 2 tablets by mouth once daily Amiodarone 100 mg tablet Active 100 MG PO daily April 29, 2024 12:37pm Amiodarone 200 mg TID for 1 week, then decrease to 200 mg daily. Start: 04-16-2024 End: 04-29-2024 take 1 tablet by mouth three times daily, then take 1 tablet by mouth once daily Amiodarone 200 mg tablet Discontinued 200 MG PO Three times daily April 16, 2024 1:00am April 29, 2024 12:37pm Amiodarone 200 mg TID for 1 week, then decrease to 200 mg daily. End: 04-29-2024 take 1 tablet by mouth once daily amiodarone (Pacerone) 200 mg tablet Take 1 tablet (200 mg) by mouth once daily. 200mg 3x a day for 1 week then 200mg daily 04/29/2024 Discontinued (Reorder) apixaban 2.5 mg oral tablet (5 sources) Factor Xa Inhibitor Start: 04-16-2024 take 1 tablet by mouth twice daily Apixaban (Eliquis) 2.5 mg Tablet Active 2.5 MG PO Twice daily 60 April 16, 2024 1:00am aspirin 81 mg delayed release oral tablet (5 sources) Platelet Aggregation Inhibitor, Nonsteroidal Anti-inflammatory Drug Start: 04-16-2024 take 1 tablet by mouth once daily Aspirin 81 mg Tablet,Delayed Release (Dr/Ec) Active 81 MG PO Daily 30 April 16, 2024 1:00am atorvastatin 10 mg oral tablet (16 sources) HMG-CoA Reductase Inhibitor Start: 06-27-2023 End: 04-23-2024 take 1 tablet by mouth once daily in the evening Atorvastatin 10 mg tablet Active 10 MG PO Every evening 90 90 April 23, 2024 1:00am furosemide 40 mg oral tablet (5 sources) Loop Diuretic Start: 04-18-2024 take 1 tablet by mouth twice daily Furosemide 40 mg Tablet Active 40 MG PO BID@0800,1600 60 April 18, 2024 1:00am To begin therapy on 04/19/24 hydrALAZINE hydrochloride 25 mg oral tablet (5 sources) Arteriolar Vasodilator Start: 04-18-2024 take 1 tablet by mouth twice daily Hydralazine 25 mg Tablet Active 25 MG PO Twice daily 60 April 18, 2024 1:00am 24 hr isosorbide mononitrate 30 mg extended release oral tablet (5 sources) Nitrate Vasodilator Start: 04-16-2024 take 1 tablet by mouth once daily, then take 1 tablet by mouth every twenty-four hours Isosorbide Mononitrate 30 mg Tablet Extended Release 24 Hr Active 30 MG PO Daily at 0600 30 April 16, 2024 1:00am melatonin 5 mg oral tablet (5 sources) Start: 04-18-2024 take 1 tablet by mouth once daily at bedtime as needed for sleep Melatonin 5 mg Tablet Active 5 MG PO Daily at bedtime as needed for sleep April 18, 2024 1:00am 24 hr metoprolol succinate 50 mg extended release oral tablet (7 sources) beta-Adrenergic Susie Start: 04-16-2024 End: 04-23-2024 take 1 tablet by mouth twice daily Metoprolol Succinate 50 mg tablet extended release 24 hr Active 50 MG PO Twice daily April 23, 2024 4:27pm Multivitamin Adult (5 sources) Multivitamin Ford lt Active Multivitamin preparation (2 sources) Start: 06-27-2023 take 1 tablet by mouth once daily Multivitamin Active 1 TAB PO Daily June 27, 2023 12:00am Multivitamin tablet (5 sources) Start: 06-27-2023 take 1 tablet by mouth once daily Multivitamin tablet Active 1 TAB PO Daily June 27, 2023 12:00am Start: 06-27-2023 take 1 tablet by abdirizak th once daily Multivitamin tablet Active 1 TAB PO Daily June 26, 2023 11:00pm multivitamin tablet (1 source) take 1 tablet by mouth once daily multivitamin tablet Take 1 tablet by mouth once daily. Active microencapsulated potassium chloride 20 meq extended release oral tablet (5 sources) Start: 025 Potassium Chloride (Klor-Con M20) 20 mEq Tablet,Er Particles/Crystals Active 20 MEQ PO Daily April 18, 2024 1:00am To start 04/19/24 with lasix spironolactone 25 mg oral tablet (5 sources) Aldosterone Antagonist Start: Spironolactone 25 mg Tablet Active 12.5 MG PO Daily April 16, 2024 1:00am take 0.5 tablet by mouth once da [...] 0 .ROUTE .COMPLEX 90 December 15, 2023 4:25pm April 18, 2024 1:06pm Take 1 tablet by mouth once daily Start: 06-27-2023 End: 11-05-2023 take 1 tablet by mouth once daily Amlodipine 10 mg tablet Discontinued 10 MG PO Daily June 27, 2023 12:00am November 05, 2023 5:50pm take 1 tablet by abdirizak th once [...] Date Episodic/Chronic Acute and unspecified renal failure (9 sources) Acute renal failure syndrome; Translations: [Acute kidney failure, unspecified] Onset: 5 04-12-2024 Episodic Acute myocardial infarction (9 sources) Myocardial infarction; Translations: [Non-ST elevation (NSTEMI) [...] Translations: [Chronic kidney disease, stage 3b] Onset: Congestive heart failure; nonhypertensive (20 sources) Heart failure with reduced ejection fraction; Translations: [Unspecified systolic (congestive) heart failure] Onset: 5 04-11-2024 Chronic Comment on above: NM stress: reversibl e anterior wall defect - 03/2024,Echo: LVEF 35-40%, normal RV size - 03/2024 Coronary atherosclerosis and other heart disease (13 sources) Ischemic myocardial dysfunction; Translations: [Ischemic cardiomyopathy] Onset: 5 04-21-2024 Chronic Comment on above: NSTEMI - 03/2024NM st ress: reversible anterior wall defect - 03/2024,Echo: LVEF 35-40%, normal RV size - 03/2024 Deficiency and other anemia (1 source) Anemia; Translations: [Anemia, unspecified] 05-06-2024 Episodic Diseases of mouth; excluding dental (3 sources) [...] sources) Taking high risk medication; Translations: [Other hard tile setter (current) drug therapy] Onset: 5 04-29-2024 Episodic Other aftercare (1 source) Long-term current use of anticoagulant; Translations: [USP (current) use of anticoagulants] Onset: 5 04-29-2024 [...] Episodic Other diseases of kidney and ureters (2 sources) Secondary hyperparathyroidism; Translations: [Secondary hyperparathyroidism of renal origin] 04-23-2024 Chronic Other diseases of kidney and ureters (2 sources) Secondary hyperparathyroidism of renal origin; Translations: [Secondary hyperparathyroidism (of renal origin)] 04-23-2024 Chronic Other ear and sense organ disorders (15 sources) Impacted cerumen; Translations: [Impacted cerumen, bilateral] Resolved: 2 Episodic Other ear and sense organ disorders (2 sources) Impacted cerumen, bilateral Episodic Other ear and sense organ disorders (3 sources) Otalgia; Translations: [Otalgia, left ear] Episodic Other lower respiratory disease (4 sources) Acute pulmonary edema; Translations: [Acute pulmonary edema] 04-11-2024 Episodic Other lower respiratory disease (5 sources) Acute pulmonary edema; Translations: [Acute edema [...] right hip] Episodic Other non-traumatic joint disorders (11 sources) Pain in unspecified knee; Translations: [Knee [...] caused by tuberculosis or sexually transmitted disease) (6 sources) Cardiomyopathy; Translations: [Cardiomyopathy, unspecified] Onset: 5 04-11-2024 Chronic Residual codes; unclassified (3 sources) Tobacco user; Translations: [Tobacco use] Episodic Respiratory failure; insufficiency; arrest (adult) (9 sources) Acute respiratory failure; Translations: [Acute respiratory failure with hypoxia] Onset: 5 04-11-2024 Episodic Spondylosis; intervertebral disc disorders; other back problems (8 sources) Lumbar spondylosis; Translations: [Spondylosis without myelopathy or radiculopathy, lumbar region] Chronic Sprains and strains (6 sources) Late effect of sprain AND/OR strain without tendon injury; Translations: [Strain of left quadriceps muscle, fascia and tendon, sequela] Episodic Unclassified (4 sources) A [facility] screening has identified you as FRAIL [...] Four Ways to Beat the Frailty Risk [email or web address] [email or web address]-[email or web address]-beat-the -fra ilty-risk 04-16-2024 Unclassified (1 source) Supraventricular tachycardia, unspecified; Translations: [Supraventricular tachycardia, unspecified] Onset: 5 Urinary tract infections (8 sources) Urinary tract infectious disease; Translations: [Urinary tract infection, site not specified] Onset: 04-14-2024 Episodic Past or Other Problems Problem [...] Test Name Value Interpretation Reference Range Facility Basophils Auto (Bld) [#/Vol] on 05-07-2024 Basophils (Bld) [#/Vol] Automated basophil count 0.0-0.1 [facility] Basophils/100 WBC Auto (Bld) on 05-07-2024 Basophils/100 WBC (Bld) Automated basophil % 0. 2-2.0 [facility] Eosinophils/100 WBC Auto (Bl d)on 05-07-2024 Eosinophils/100 WBC (Bld) Automated eosinophil % High 0.9-7.0 [facility] Erythrocyte distribution wid th Auto (RBC) [Ratio]on 05-07-2024 Erythrocyte distribution width (RBC) [Ratio] Erythrocyte distribution width [Ratio] by Automated count 11.0-15.0 [facility] Estimated glomerular filtrat ion rate (GFR) non- Americanon 05-07-2024 GFR/1.73 sq M.predicted among non-blacks MDRD (S/P/Bld) [Vol rate/Area] Estimated glomerular filtration rate (GFR) non- Low >=60 mL/min/1.7 3m 2 [facility] Hematocrit Auto (Bld) [Volum e fraction]on 05-07-2024 Hematocrit (Bld) [Volume fraction] Hematocrit [Volume Fraction] of Blood by Automated count 42.0-54.0 [facility] Hemoglobin [Mass/volume] in Bloodon 05-07-2024 Hemoglobin (Bld) [Mass/Vol] Hemoglobin [Mass/volume] in Blood 14.0-18.0 [facility] Laboratory - Chemistry and C hemistry - challengeon 05-07-2024 Calcium [Mass/Vol] 9.0 mg/dL 8.5-10.1 [facility] Chloride [Moles/Vol] 102 mmol/L 98-107 [facility] CO2 [Moles/Vol] 26.8 mmol/L 21.0-32.0 [facility] Creatinine [Mass/Vol] 3.10 mg/dL High 0.70-1.30 [facility] Ferritin [Mass/Vol] 231.0 ng/mL 26.0-388.0 [facility] GFR/1.73 sq M.predicted MDRD (S/P/Bld) [Vol rate/Area] 24 mL/min/{1.73_m2} Low >=60 mL/min/1.[address] [place] [address] Glucose [Mass/Vol] 130 mg/dL High 74-106 [facility] Potassium [Moles/Vol] 4.0 mmol/L 3.5-5.1 [facility] Sodium [Moles/Vol] 140 mmol/L 136-145 [facility] Urea nitrogen [Mass/Vol] 42.0 mg/dL High 7.0-18.0 [facility] Urea nitrogen/Creatinine [Mass ratio] 13.5 mg/mg [facility] Laboratory - Hematology and Cell countson 05-07-2024 Immature granulocytes/100 WBC (Bld) 0.4 % 0.0-0.5 [facility] Leukocytes [#/volume] correc ariana for nucleated erythrocytes in Blood by Automated counon 05-07-2024 WBC corrected for nucl RBC Auto (Bld) [#/Vol] Leukocytes [#/volume] corrected for nucleated erythrocytes in Blood by Automated coun 4.0-11.0 [facility] Lymphocytes Auto (Bld) [#/Vo l]on 05-07-2024 Lymphocytes (Bld) [#/Vol] Lymphocytes [#/volume] in Blood by Automated count 1.2-3.8 [facility] Lymphocytes/100 WBC Auto (Bl d)on 05-07-2024 Lymphocytes/100 WBC (Bld) Lymphocytes/100 leukocytes in Blood by Automated count 20.5-60.0 [facility] MCH Auto (RBC) [Entitic mass ]on 05-07-2024 MCH (RBC) [Entitic mass] MCH [Entitic mass] by Automated count 25.9-34.0 [facility] MCHC Auto (RBC) [Mass/Vol]on 05-07-2024 MCHC (RBC) [Mass/Vol] MCHC [Mass/volume] by Automated count 29.9-35.2 [facility] MCV Auto (RBC) [Entitic vol] on 05-07-2024 MCV (RBC) [Entitic vol] MCV [Entitic vol ume] by Automated count 80.0-94.0 [facility] Monocytes Auto (Bld) [#/Vol] on 05-07-2024 Monocytes (Bld) [#/Vol] Automated blood monocyte count 0.3-0.8 [facility] Monocytes/100 WBC Auto (Bld) on 05-07-2024 Monocytes/100 WBC (Bld) Automated monocyte % 1. 7-12.0 [facility] Neutrophils Auto (Bld) [#/Vo l]on 05-07-2024 Neutrophils (Bld) [#/Vol] Neutrophils [#/volume] in Blood by Automated count 1.4-6.5 [facility] Neutrophils/100 WBC Auto (Bl d)on 05-07-2024 Neutrophils/100 WBC (Bld) Automated neutrophil % 43.0-75.0 [facility] No Panel Informationon 05-07 Eosinophils # (Auto) 0.5 10 3/uL 0.0-0.7 [facility] Immature Granulocyte # (Auto) 0.03 10 3/uL 0.00-0.03 [facility] Platelet mean volume Auto (B ld) [Entitic vol]on 05-07-2024 Platelet mean volume (Bld) [Entitic vol] Platelet mean volume [Entitic volume] in Blood by Automated count 9.5-13.5 [facility] Platelets Auto (Bld) [#/Vol] on 05-07-2024 Platelets (Bld) [#/Vol] Platelets [#/vol ume] in Blood by Automated count 150-450 [facility] RBC Auto (Bld) [#/Vol]on RBC (Bld) [#/Vol] Erythrocytes [#/volu me] in Blood by Automated count 4.70-6.10 [facility] Serum or plasma anion gap de terminationon 05-07-2024 Anion gap [Moles/Vol] Serum or plasma an ion gap determination [facility] ECG 12 Leadon 04-29-2024 Mild sinus bradycardia CP [facility] Work Phone: Estimated glomerular filtrat ion rate (GFR) non- Americanon 04-22-2024 GFR/1.73 sq M.predicted among non-blacks MDRD (S/P/Bld) [Vol rate/Area] Estimated glomerular filtration rate (GFR) non- Low >=60 mL/min/1.7 3m 2 [facility] Laboratory - Chemistry and C hemistry - challengeon 04-22-2024 Calcium [Mass/Vol] 9.4 mg/dL 8.5-10.1 [facility] Chloride [Moles/Vol] 102 mmol/L 98-107 [facility] CO2 [Moles/Vol] 31.3 mmol/L 21.0-32.0 [facility] Creatinine [Mass/Vol] 3.51 mg/dL High 0.70-1.30 [facility] GFR/1.73 sq M.predicted MDRD (S/P/Bld) [Vol rate/Area] 21 mL/min/{1.73_m2} Low >=60 mL/min/1.7 3m 2 [facility] Glucose [Mass/Vol] 125 mg/dL High 74-106 [facility] Potassium [Moles/Vol] 4.8 mmol/L 3.5-5.1 [facility] Sodium [Moles/Vol] 142 mmol/L 136-145 [facility] Urea nitrogen [Mass/Vol] 41.0 mg/dL High 7.0-18.0 [facility] Urea nitrogen/Creatinine [Mass ratio] 11.7 mg/mg [facility] Serum or plasma anion gap de terminationon 04-22-2024 Anion gap [Moles/Vol] Serum or plasma an ion gap determination [facility] Albumin [Mass/volume] in Ser um or Plasma by Bromocresol green (BCG) dye binding methoOrdered By: Felicia Aguilar on 04-18-2024 Albumin BCG dye [Mass/Vol] Albumin [Mass/volume] in Serum or Plasma by Bromocresol green (BCG) dye binding metho 3.5-5.7 [facility] Calcium [Mass/volume] in Ser um or PlasmaOrdered By: Felicia Aguilar on 04-18-2024 Calcium [Mass/Vol] Calcium [Mass/volume ] in Serum or Plasma 8.6-10.3 [facility] Carbon dioxide, total [Moles /volume] in Serum or PlasmaOrdered By: Felicia Aguilar on 04-18-2024 CO2 [Moles/Vol] Carbon dioxide, tota l [Moles/volume] in Serum or Plasma 21.0-31.0 [facility] Chloride [Moles/volume] in S srikanth or PlasmaOrdered By: Felicia Aguilar 04-18-2024 Chloride [Moles/Vol] Chloride [Moles/vol ume] in Serum or Plasma 98-107 [facility] Creatinine [Mass/volume] in Serum or PlasmaOrdered By: Felicia Aguilar on 04-18-2024 Creatinine [Mass/Vol] Creatinine [Mass/v olume] in Serum or Plasma High 0.70-1.30 [facility] Creatinine [Mass/volume] in UrineOrdered By: Felicia Aguilar on 04-18-2024 Creatinine (U) [Mass/Vol] Creatinine [Mass/volume] in Urine [facility] Comment on above: No reference range e stablished Creatinine, Urine (Random)on 04-18-2024 Creatinine, Urine (Random) 84.00 mg/dL Normal [facility] Comment on above: Result Comment: No r eference range established Performed By: #### U RONALD SWARTZ #### [facility] [address] [place] [address] [place] Glucose [Mass/volume] in Ser um or PlasmaOrdered By: Felicia Aguilar on 04-18-2024 Glucose [Mass/Vol] Glucose [Mass/volume ] in Serum or Plasma High 70-100 [facility] Comment on above: ADA recommended refe rence rangeRandom Glucose Reference Range is dependent on time and content of last meal. Glucose of more than 200 mg/dL in a nonstressed, ambulatory subject supports the diagnosis of Diabetes Mellitus. No Panel InformationOrdered By: Felicia Aguilar on 04-18-2024 Estimated GFR (CKD-EPI) 19.726 mL/Min [facility] Creatinine Clearance (Chem 26.05 [facility] Phosphate [Mass/volume] in S srikanth or PlasmaOrdered By: Felicia Aguilar on 04-18-2024 Phosphate [Mass/Vol] Phosphate [Mass/vol ume] in Serum or Plasma 2.5-4.5 [facility] Potassium [Moles/volume] in Serum or PlasmaOrdered By: Felicia Aguilar on 04-18-2024 Potassium [Moles/Vol] Potassium [Moles/v olume] in Serum or Plasma 3.5-5.1 [facility] Comment on above: Hemolysis is present at a level that could interfere with the result.Contact lab if redraw is required Renal Function Panelon 04-18 Albumin [Mass/Vol] 3.8 g/dL Normal 3.5-5.7 [facility] Comment on above: Performed By: #### C UU, ADDONUAPLUS #### [facility] [address] Anion gap [Moles/Vol] 12.6 mmol/L Normal 6.0-15.0 [facility] Comment on above: Performed By: #### C UU, ADDONUAPLUS #### [facility] [address] [place] [id number] [facility] Calcium [Mass/Vol] 9.3 mg/dL Normal 8.6-10.3 [facility] Comment on above: Performed By: #### C UU, ADDONUAPLUS #### [address] Chloride [Moles/Vol] 102 mmol/L Normal 98-107 [facility] Comment on above: Performed By: #### C UU, ADDONUAPLUS #### [address] CO2 [Moles/Vol] 24.1 mmol/L Normal 21.0-31.0 [facility] Comment on above: Performed By: #### C UU, ADDONUAPLUS #### [address] Creatinine [Mass/Vol] 3.08 mg/dL High 0.70-1.30 [facility] Comment on above: Performed By: #### C UU, ADDONUAPLUS #### [address] Creatinine Clr Calc Pharmacy 26.05 Normal [facility] Comment on above: Result Comment: PERF ORMED BY: [place] [address] PATHOLOGIST GREENHOUSE MANAGER RDAHA MANNING M.D. Performed By: #### C UU, ADDONUAPLUS #### [address] Estimated GFR 19.726 mL/Min Normal [facility] Comment on above: Performed By: #### C UU, ADDONUAPLUS #### [address] Glucose [Mass/Vol] 141 mg/dL High 70-100 [facility] Comment on above: Result Comment: [place] Glucose Reference Range is dependent on time and content of last meal. Glucose of more than 200 mg/dL in a nonstressed, ambulatory subject supports the diagnosis of Diabetes Mellitus. ADA recommended reference range Performed By: #### C UU, ADDONUAPLUS #### [place] [id number] [place] Phosphate [Mass/Vol] 3.2 mg/dL Normal 2.5-4.5 [facility] Comment on above: Performed By: #### C UU, ADDONUAPLUS #### [facility] [address] [place] [address] Potassium [Moles/Vol] 4.7 mmol/L Normal 3.5-5.1 [facility] Comment on above: Result Comment: Hemo lysis is present at a level that could interfere with the result. Contact lab if redraw is required Performed By: #### C UU, ADDONUAPLUS #### [facility] [address] [place] [address] Sodium [Moles/Vol] 134 mmol/L Low 136-145 [facility] Comment on above: Performed By: #### C UU, ADDONUAPLUS #### [address] Urea nitrogen [Mass/Vol] 50 mg/dL High 7-25 [facility] Comment on above: Performed By: #### C UU, ADDONUAPLUS #### [facility] [address] [place] [address] Serum or plasma anion gap de terminationOrdered By: Felicia Aguilra on 04-18-2024 Anion gap [Moles/Vol] Serum or plasma an ion gap determination 6.0-15.0 [facility] Sodium [Moles/volume] in Ser um or PlasmaOrdered By: Felicia Aguilar on 04-18-2024 Sodium [Moles/Vol] Sodium [Moles/volume ] in Serum or Plasma Low 136-145 [facility] Sodium [Moles/volume] in Uri neOrdered By: Felicia Aguilar on 04-18-2024 Sodium (U) [Moles/Vol] Sodium [Moles/vol ume] in Urine [facility] Comment on above: No reference range e stablished Sodium, Urine (Random)on Sodium (U) [Moles/Vol] 32 mmol/L Normal [facility] Comment on above: Result Comment: No r eference range established PERFORMED BY: [place] [address] PATHOLOGIST GREENHOUSE MANAGER RADHA MANNING M.D. Performed By: #### RONALD MCADAMS #### [facility] [address] [place] [address] Urea nitrogen [Mass/volume] in Serum or PlasmaOrdered By: Felicia Aguilar on 04-18-2024 Urea nitrogen [Mass/Vol] Urea nitrogen [Mass/volume] in Serum or Plasma High 7 [facility] Erythrocyte distribution wid th Auto (RBC) [Ratio]Ordered By: Obaydah Daromar on 04-17-2024 Erythrocyte distribution width (RBC) [Ratio] Erythrocyte distribution width [Ratio] by Automated count 12.0-14.8 [facility] Hematocrit Auto (Bld) [Volum e fraction]Ordered By: Obaydah Daromar on 04-17-2024 Hematocrit (Bld) [Volume fraction] Hematocrit [Volume Fraction] of Blood by Automated count 38.8-50.0 [facility] Hemoglobin [Mass/volume] in BloodOrdered By: Obaydah Daromar on 04-17-2024 Hemoglobin (Bld) [Mass/Vol] Hemoglobin [Mass/volume] in Blood 13.0-17.0 [facility] Hemogram CBC Without Diffon 04-17-2024 Erythrocyte distribution width (RBC) [Ratio] 14.7 % Normal 12.0-14.8 [facility] Comment on above: Performed By: #### C J LUIS BUCHANANPLUS #### [address] Hematocrit (Bld) [Volume fraction] 42.0 % Normal 38.8-50.0 [facility] Comment on above: Performed By: #### C J LUIS BUCHANANPLUS #### [address] Hemoglobin (Bld) [Mass/Vol] 14.5 g/dL Normal 13.0-17.0 [facility] Comment on above: Performed By: #### C J LUIS BUCHANANPLUS #### [address] MCH (RBC) [Entitic mass] 30.2 pg Normal 27.5-35.2 [facility] Comment on above: Performed By: #### C UU, ADDONUAPLUS #### [address] MCV (RBC) [Entitic vol] 87.5 fL Normal 83.5-101 [facility] Comment on above: Performed By: #### C UU, ADDONUAPLUS #### [address] Mean Corpuscular HGB Conc 34.5 g/dL Normal 32.5-35.6 [facility] Comment on above: Performed By: #### C UU, ADDONUAPLUS #### [address] Platelet mean volume (Bld) [Entitic vol] 7.6 fL Normal 6.6-10.1 [facility] Comment on above: Result Comment: PERF ORMED BY: [place] [address] PATHOLOGIST GREENHOUSE MANAGER RADHA MANNING M.D. Performed By: #### C UU, ADDONUAPLUS #### [address] Platelets (Bld) [#/Vol] 283 10*3/uL Normal 150-450 [facility] Comment on above: Performed By: #### C UU, ADDONUAPLUS #### [address] RBC (Bld) [#/Vol] 4.80 10*6/uL Normal 3.90-5.60 [facility] Comment on above: Performed By: #### C UU, ADDONUAPLUS #### [address] WBC (Bld) [#/Vol] 10.0 10*3/uL Normal 4.1-10.5 [facility] Comment on above: Performed By: #### C UU, ADDONUAPLUS #### [facility] [place] [address] Leukocytes [#/volume] correc ariana for nucleated erythrocytes in Blood by Automated counOrdered By: Obsusandah Satishomar on 04-17-2024 WBC corrected for nucl RBC Auto (Bld) [#/Vol] Leukocytes [#/volume] corrected for nucleated erythrocytes in Blood by Automated coun 4.1-10.5 [facility] MCH Auto (RBC) [Entitic mass ]Ordered By: Obsusandah Daromar on 04-17-2024 MCH (RBC) [Entitic mass] MCH [Entitic mass] by Automated count 27.5-35.2 [facility] MCHC Auto (RBC) [Mass/Vol]Or dered By: Obaydah Daromar on 04-17-2024 MCHC (RBC) [Mass/Vol] MCHC [Mass/volume] by Automated count 32.5-35.6 [facility] MCV Auto (RBC) [Entitic vol] Ordered By: Obsusandah Satishomar on 04-17-2024 MCV (RBC) [Entitic vol] MCV [Entitic vol ume] by Automated count 83.5-101 [facility] Platelet mean volume Auto (B ld) [Entitic vol]Ordered By: Obsusandah Satishomar on 04-17-2024 Platelet mean volume (Bld) [Entitic vol] Platelet mean volume [Entitic volume] in Blood by Automated count 6.6-10.1 [facility] Platelets Auto (Bld) [#/Vol] Ordered By: Obsusandah Satishomar on 04-17-2024 Platelets (Bld) [#/Vol] Platelets [#/vol ume] in Blood by Automated count 150-450 [facility] RBC Auto (Bld) [#/Vol]Ordere d By: Obsusandah Daromar on 04-17-2024 RBC (Bld) [#/Vol] Erythrocytes [#/volu me] in Blood by Automated count 3.90-5.60 [facility] Renal Function Panelon 04-17 Albumin [Mass/Vol] 3.7 g/dL Normal 3.5-5.7 [facility] Comment on above: Performed By: #### B AMARIS, CBCNO #### [address] Anion gap [Moles/Vol] 13.3 mmol/L Normal 6.0-15.0 [facility] e [facility] Comment on above: Performed By: #### B MP, CBCNO #### [address] Calcium [Mass/Vol] 9.4 mg/dL Normal 8.6-10.3 [facility] Comment on above: Performed By: #### B AMARIS, CBCNO #### [address] Chloride [Moles/Vol] 103 mmol/L Normal 98-107 [facility] Comment on above: Performed By: #### B AMARIS, CBCNO #### [address] CO2 [Moles/Vol] 25.0 mmol/L Normal 21.0-31.0 [facility] Comment on above: Performed By: #### B AMARIS CBCNO #### [address] Creatinine [Mass/Vol] 3.26 mg/dL Significan t change up 0.70-1.30 [facility] Comment on above: Performed By: #### B AMARIS, CBCNO #### [place] [address] [place] Creatinine Clr Calc Pharmacy 24.61 Normal [facility] Comment on above: Result Comment: PERF ORMED BY: [place] [address] PATHOLOGIST [employer]ENHOUSE MANAGER RADHA MANNING M.D. Performed By: #### B MP, CBCNO #### [address] Estimated GFR 18.426 mL/Min Normal [facility] Comment on above: Performed By: #### B MP, CBCNO #### [address] Glucose [Mass/Vol] 100 mg/dL Normal 70-100 [facility] Comment on above: Result Comment: [facility] Glucose Reference Range is dependent on time and content of last meal. Glucose of more than 200 mg/dL in a nonstressed, ambulatory subject supports the diagnosis of Diabetes Mellitus. ADA recommended reference range Performed By: #### B AMARIS, CBCNO #### [address] Phosphate [Mass/Vol] 4.4 mg/dL Normal 2.5-4.5 [facility] Comment on above: Performed By: #### B AMARIS, CBCNO #### [address] Potassium [Moles/Vol] 4.3 mmol/L Normal 3.5-5.1 [facility] Comment on above: Performed By: #### B AMARIS, CBCNO #### [address] Sodium [Moles/Vol] 137 mmol/L Normal 136-145 [facility] Comment on above: Performed By: #### B AMARIS CBCNO #### [address] Urea nitrogen [Mass/Vol] 53 mg/dL High 7-25 [facility] Comment on above: Performed By: #### B AMARIS, CBCNO #### [address] Hemogram CBC Without Diffon 04-16-2024 Erythrocyte distribution width (RBC) [Ratio] 14.2 % Normal 12.0-14.8 [facility] Comment on above: Performed By: #### C UU, ADDONUAPLUS #### [address] Hematocrit (Bld) [Volume fraction] 43.4 % Normal 38.8-50.0 [facility] Comment on above: Performed By: #### C UU, ADDONUAPLUS #### [place] [address] [place] Hemoglobin (Bld) [Mass/Vol] 15.0 g/dL Normal 13.0-17.0 [facility] Comment on above: Performed By: #### C UBarbara ADDONUAPLUS #### [address] MCH (RBC) [Entitic mass] 30.2 pg Normal 27.5-35.2 [facility] Comment on above: Performed By: #### C UBarbara, ADDONUAPLUS #### [address] MCV (RBC) [Entitic vol] 87.2 fL Normal 83.5-101 T he [facility] Comment on above: Performed By: #### C CHANEL ADDONUAPLUS #### [address] Mean Corpuscular HGB Conc 34.6 g/dL Normal 32.5-35.6 [facility] Comment on above: Performed By: #### C UBarbara ADDONUAPLUS #### [address] Platelet mean volume (Bld) [Entitic vol] 7.8 fL Normal 6.6-10.1 [facility] Comment on above: Result Comment: PERF ORMED BY: [place] [address] PATHOLOGIST GREENHOUSE MANAGER RADHA MANNING M.D. Performed By: #### C UBarbara ADDONUAPLUS #### [place] [address] [place] Platelets (Bld) [#/Vol] 297 10*3/uL Normal 150-450 [facility] Comment on above: Performed By: #### C UU ADDONUAPLUS #### [address] RBC (Bld) [#/Vol] 4.98 10*6/uL Normal 3.90-5.60 [facility] Comment on above: Performed By: #### C UU, ADDONUAPLUS #### [facility] [address] [place], [place] [id number] [facility] WBC (Bld) [#/Vol] 8.7 10*3/uL Normal 4.1-10.5 [facility] Comment on above: Performed By: #### C TINO BUCHANAN #### [facility] [address] [place], [place] [id number] [facility] NM brianna perf SPECT rest stron 04-16-2024 NM brianna perf SPECT rest str [facility] Main [place] [address] [place] [address] Nuclear Medicine Report Signed Patient: Corwin Muller MR#: [id number] : 1945 Acct:[id number] Age/Sex: 79 / M ADM Date: 04/10/24 Loc: Room: [address] [place] [address] Type: ADM IN Attending Dr: Jersey Bess [...] Jayda Burgess M.D.04/16/2024 12:45 PM Dictation Location: [id number] Transcribed By: RK 04/16/24 1245 Dictated By: Jayda Burgess MD 04/16/24 1237 Signed By: 04/16/24 1245 Normal [facility] Renal Function Panelon 04-16 Albumin [Mass/Vol] 3.6 g/dL Normal 3.5-5.7 [facility] Comment on above: Performed By: #### B ALE GLEZNO #### [address] Anion gap [Moles/Vol] 16.3 mmol/L High 6.0-15.0 Th e [facility] Comment on above: Performed By: #### B AMARIS CBCNO #### [address] Calcium [Mass/Vol] 9.1 mg/dL Normal 8.6-10.3 [facility] Comment on above: Performed By: #### B AMARIS CBCNO #### [address] Chloride [Moles/Vol] 104 mmol/L Normal 98-107 [facility] Comment on above: Performed By: #### B AMARIS, CBCNO #### [address] CO2 [Moles/Vol] 21.6 mmol/L Normal 21.0-31.0 [facility] Comment on above: Performed By: #### B AMARIS CBCNO #### [address] Creatinine [Mass/Vol] 2.68 mg/dL High 0.70-1.30 [facility] Comment on above: Performed By: #### B AMARIS CBCNO #### [place] [address] [place] Creatinine Clr Calc Pharmacy 29.94 Normal [facility] Comment on above: Result Comment: PERF ORMED BY: [place] [address] PATHOLOGIST GREENHOUSE MANAGER RADHA MANNING M.D. Performed By: #### B AMARIS, CBCNO #### [address] Estimated GFR 23.310 mL/Min Normal [facility] Comment on above: Performed By: #### B AMARIS, CBCNO #### [address] Glucose [Mass/Vol] 99 mg/dL Normal 70-100 [facility] Comment on above: Result Comment: [facility] Glucose Reference Range is dependent on time and content of last meal. Glucose of more than 200 mg/dL in a nonstressed, ambulatory subject supports the diagnosis of Diabetes Mellitus. ADA recommended reference range Performed By: #### B AMARIS CBCNO #### [address] Phosphate [Mass/Vol] 3.6 mg/dL Normal 2.5-4.5 [facility] Comment on above: Performed By: #### B AMARIS CBCNO #### [address] Potassium [Moles/Vol] 3.9 mmol/L Normal 3.5-5.1 [facility] Comment on above: Result Comment: Hemo lysis is present at a level that could interfere with the result. Contact lab if redraw is required Performed By: #### B AMARIS, CBCNO #### [place] [address] [place] Sodium [Moles/Vol] 138 mmol/L Normal 136-145 [facility] Comment on above: Performed By: #### B AMARIS CBCNO #### [place] [address] [place] Urea nitrogen [Mass/Vol] 42 mg/dL High 7-25 [facility] Comment on above: Performed By: #### B AMARIS CBCNO #### [address] [place] [address] [place] Alanine aminotransferase [En zymatic activity/volume] in Serum or PlasmaOrdered By: Obaydah Daromar on 04-15-2024 ALT [Catalytic activity/Vol] Alanine aminotransferase [Enzymatic activity/volume] in Serum or Plasma [facility] Alkaline phosphatase [Enzyma tic activity/volume] in Serum or PlasmaOrdered By: Obaydah Daromar on 04-15-2024 ALP [Catalytic activity/Vol] Alkaline phosphatase [Enzymatic activity/volume] in Serum or Plasma 34 [facility] Aspartate aminotransferase [ Enzymatic activity/volume] in Serum or PlasmaOrdered By: Obaydah Daromar on 04-15-2024 AST [Catalytic activity/Vol] Aspartate aminotransferase [Enzymatic activity/volume] in Serum or Plasma 1339 [facility] Bilirubin.total [Mass/volume ] in Serum or PlasmaOrdered By: Obaydah Daromar on 04-15-2024 Bilirubin [Mass/Vol] Bilirubin.total [Mass/volume] in Serum or Plasma 0.3-1.0 [facility] Comprehensive Metabolic Pane nazanin 04-15-2024 Albumin [Mass/Vol] 3.6 g/dL Normal 3.5-5.7 [facility] Comment on above: Performed By: #### B RAUL GLEZ #### [address] Albumin/Globulin [Mass ratio] 1.2 {ratio} Normal [facility] Comment on above: Performed By: #### B RAUL GLEZ #### [facility] [address] [place] [id number] [facility] ALP [Catalytic activity/Vol] 46 U/L Normal 34 [facility] Comment on above: Performed By: #### B RAUL GLEZ #### [facility] [place] [address] [place] [id number] [facility] ALT [Catalytic activity/Vol] 27 U/L Normal [facility] Comment on above: Performed By: #### B ALE GLEZNO #### [facility] [address] [place] [id number] [place] Anion gap [Moles/Vol] 11.5 mmol/L Normal 6.0-15.0 Th e [facility] Comment on above: Performed By: #### B AMARIS, CBCNO #### [address] AST [Catalytic activity/Vol] 30 U/L Normal 13-39 [facility] Comment on above: Performed By: #### B MP, CBCNO #### [address] Bilirubin [Mass/Vol] 0.6 mg/dL Normal 0.3-1.0 [facility] Comment on above: Performed By: #### B AMARIS, CBCNO #### [address] Calcium [Mass/Vol] 9.2 mg/dL Normal 8.6-10.3 [facility] Comment on above: Performed By: #### B AMARIS, CBCNO #### [address] Chloride [Moles/Vol] 104 mmol/L Normal 98-107 [facility] Comment on above: Performed By: #### B AMARIS, CBCNO #### [address] CO2 [Moles/Vol] 26.6 mmol/L Normal 21.0-31.0 [facility] Comment on above: Performed By: #### B AMARIS, CBCNO #### [address] Creatinine [Mass/Vol] 2.58 mg/dL High 0.70-1.30 [facility] Comment on above: Performed By: #### B MP, CBCNO #### [facility] [address] [place] [address] [place] Creatinine Clr Calc Pharmacy 31.18 Normal [facility] Comment on above: Performed By: #### B MP, CBCNO #### [address] Estimated GFR 24.398 mL/Min Normal [facility] Comment on above: Performed By: #### B MP, CBCNO #### [facility] [place] [address] Globulin (S) [Mass/Vol] 2.9 g/dL Normal T he [facility] Comment on above: Performed By: #### B LAE GLEZNO #### [address] Glucose [Mass/Vol] 100 mg/dL Normal 70-100 [facility] Comment on above: Result Comment: [facility] Glucose Reference Range is dependent on time and content of last meal. Glucose of more than 200 mg/dL in a nonstressed, ambulatory subject supports the diagnosis of Diabetes Mellitus. ADA recommended reference range Performed By: #### B ALE GLEZNO #### [address] Potassium [Moles/Vol] 4.1 mmol/L Normal 3.5-5.1 [facility] Comment on above: Performed By: #### B AMARIS CBCNO #### [address] Protein [Mass/Vol] 6.5 g/dL Normal 6.4-8.9 [facility] Comment on above: Performed By: #### B ALE GLEZNO #### [address] Sodium [Moles/Vol] 138 mmol/L Normal 136-145 [facility] Comment on above: Performed By: #### B ALE GLEZNO #### [address] Urea nitrogen [Mass/Vol] 38 mg/dL High 7-25 [facility] Comment on above: Performed By: #### B AMARIS CBCNO #### [address] Globulin Calc (S) [Mass/Vol] Ordered By: Jersey Bess on 04-15-2024 Globulin (S) [Mass/Vol] Serum globulin m easurement by calculation (mass/volume) [facility] Hemogram CBC Without Diffon 04-15-2024 Erythrocyte distribution width (RBC) [Ratio] 14.0 % Normal 12.0-14.8 [facility] Comment on above: Performed By: #### C UU, ADDONUAPLUS #### [address] Hematocrit (Bld) [Volume fraction] 42.5 % Normal 38.8-50.0 [facility] Comment on above: Performed By: #### C UU, ADDONUAPLUS #### [address] Hemoglobin (Bld) [Mass/Vol] 14.8 g/dL Normal 13.0-17.0 [facility] Comment on above: Performed By: #### C UU, ADDONUAPLUS #### [address] MCH (RBC) [Entitic mass] 30.3 pg Normal 27.5-35.2 [facility] Comment on above: Performed By: #### C UU, ADDONUAPLUS #### [address] MCV (RBC) [Entitic vol] 87.1 fL Normal 83.5-101 T he [facility] Comment on above: Performed By: #### C UU, ADDONUAPLUS #### [address] Mean Corpuscular HGB Conc 34.8 g/dL Normal 32.5-35.6 [facility] Comment on above: Performed By: #### C UU, ADDONUAPLUS #### [address] Platelet mean volume (Bld) [Entitic vol] 7.7 fL Normal 6.6-10.1 [facility] Comment on above: Result Comment: PERF ORMED BY: [place] [address] PATHOLOGIST GREENHOUSE MANAGER RADHA MANNING M.D. Performed By: #### C UU, ADDONUAPLUS #### [address] Platelets (Bld) [#/Vol] 270 10*3/uL Normal 150-450 [facility] Comment on above: Performed By: #### C UU, ADDONUAPLUS #### [address] RBC (Bld) [#/Vol] 4.88 10*6/uL Normal 3.90-5.60 [facility] Comment on above: Performed By: #### C UU, ADDONUAPLUS #### [address] WBC (Bld) [#/Vol] 8.5 10*3/uL Normal 4.1-10.5 [facility] Comment on above: Performed By: #### C UU, ADDONUAPLUS #### [address] Magnesiumon 04-15-2024 Magnesium [Mass/Vol] 2.1 mg/dL Normal 1.9-2.7 [facility] Comment on above: Result Comment: PERF ORMED BY: [place] [address] PATHOLOGIST GREENHOUSE MANAGER RADHA MANNING M.D. Performed By: #### B MP, CBCNO #### [address] Magnesium [Mass/volume] in S srikanth or PlasmaOrdered By: Tobi Monroy on 04-15-2024 Magnesium [Mass/Vol] Magnesium [Mass/vol ume] in Serum or Plasma 1.9-2.7 [facility] No Panel InformationOrdered By: Jayda Burgess on 04-15-2024 [facility] Main [place] [address] [place] [address] Cardiac Stress Test Signed Patient: Corwin Muller MR#: [id number] : 1945 Date of Service:0 04/15/24 Age/Sex: 79 / M ADM Date: 5 Loc: Room: [address] [place] [address] Type: ADM IN Attending Dr: Jersey Bess [...] 1525 Dictated By: Jayda Burgess MD 04/15/24 1525 Signed By: 04/15/24 1527 [facility] Work Phone: Protein [Mass/volume] in Ser um or PlasmaOrdered By: Jersey Bess on 04-15-2024 Protein [Mass/Vol] Protein [Mass/volume ] in Serum or Plasma 6.4-8.9 [facility] Renal Function Panelon 04-15 Phosphate [Mass/Vol] 3.9 mg/dL Normal 2.5-4.5 [facility] Comment on above: Performed By: #### B RAUL GLEZ #### [facility] [address] [place] [address] Serum or plasma albumin/glob ulin mass ratioOrdered By: Jersey Bess on 04-15-2024 Albumin/Globulin [Mass ratio] Serum or plasma albumin/globulin mass ratio [facility] Basic Metabolic Panelon 03-24 Anion gap [Moles/Vol] 13.7 mmol/L Normal 6.0-15.0 [facility] e [facility] Comment on above: Performed By: #### B RAUL GLEZ #### [facility] [address] Calcium [Mass/Vol] 8.8 mg/dL Normal 8.6-10.3 [facility] Comment on above: Performed By: #### B AMARIS, CBCNO #### [facility] [address] [place] [address] [place] Chloride [Moles/Vol] 105 mmol/L Normal 98-107 [facility] [facility] Comment on above: Performed By: #### B MP, CBCNO #### [facility] [place] [address] CO2 [Moles/Vol] 23.2 mmol/L Normal 21.0-31.0 The [facility] Comment on above: Performed By: #### B AMARIS, CBCNO #### [facility] [place] [address] Creatinine [Mass/Vol] 2.30 mg/dL High 0.70-1.30 The [facility] Comment on above: Performed By: #### B AMARIS, CBCNO #### [address] Creatinine Clr Calc Pharmacy 34.97 Normal The [facility] Comment on above: Result Comment: PERF ORMED BY: [place] [address] PATHOLOGIST GREENHOUSE MANAGER RADHA MANNING M.D. Performed By: #### B AMARIS, CBCNO #### [address] Estimated GFR 28.004 mL/Min Normal [facility] Comment on above: Performed By: #### B AMARIS, CBCNO #### [address] Glucose [Mass/Vol] 103 mg/dL High 70-100 [facility] Comment on above: Result Comment: [place] Glucose Reference Range is dependent on time and content of last meal. Glucose of more than 200 mg/dL in a nonstressed, ambulatory subject supports the diagnosis of Diabetes Mellitus. ADA recommended reference range Performed By: #### B MP, CBCNO #### [address] Potassium [Moles/Vol] 3.9 mmol/L Normal 3.5-5.1 The [facility] Comment on above: Performed By: #### B MP, CBCNO #### [address] Sodium [Moles/Vol] 138 mmol/L Normal 136-145 [facility] Comment on above: Performed By: #### B MP, CBCNO #### [address] Urea nitrogen [Mass/Vol] 36 mg/dL High 7-25 [facility] Comment on above: Performed By: #### B MP, CBCNO #### [address] Hemogram CBC Without Diffon 04-14-2024 Erythrocyte distribution width (RBC) [Ratio] 14.1 % Normal 12.0-14.8 The [facility] Comment on above: Performed By: #### B MP, CBCNO #### [address] Hematocrit (Bld) [Volume fraction] 42.1 % Normal 38.8-50.0 [facility] Comment on above: Performed By: #### B MP, CBCNO #### [address] Hemoglobin (Bld) [Mass/Vol] 14.6 g/dL Normal 13.0-17.0 The [facility] Comment on above: Performed By: #### B MP, CBCNO #### [address] MCH (RBC) [Entitic mass] 30.3 pg Normal 27.5-35.2 The [facility] Comment on above: Performed By: #### B MP, CBCNO #### [address] MCV (RBC) [Entitic vol] 87.8 fL Normal 83.5-101 [facility] Comment on above: Performed By: #### B MP, CBCNO #### [address] Mean Corpuscular HGB Conc 34.6 g/dL Normal 32.5-35.6 The [facility] Comment on above: Performed By: #### B MP, CBCNO #### [address] Platelet mean volume (Bld) [Entitic vol] 7.7 fL Normal 6.6-10.1 The [facility] Comment on above: Result Comment: PERF ORMED BY: [place] [address] PATHOLOGIST GREENHOUSE MANAGER RADHA MANNING M.D. Performed By: #### B MP, CBCNO #### [address] Platelets (Bld) [#/Vol] 278 10*3/uL Normal 150-450 [facility] Comment on above: Performed By: #### B MP, CBCNO #### [address] RBC (Bld) [#/Vol] 4.80 10*6/uL Normal 3.90-5.60 The [facility] Comment on above: Performed By: #### B MP, CBCNO #### [address] WBC (Bld) [#/Vol] 9.5 10*3/uL Normal 4.1-10.5 The [facility] Comment on above: Performed By: #### B MP, CBCNO #### [place] [address] [place] Basophils Auto (Bld) [#/Vol] Ordered By: Jersey Reyesr on 04-13-2024 Basophils (Bld) [#/Vol] Automated basophil count 0.0-0.2 [facility] Basophils/100 WBC Auto (Bld) Ordered By: Obsusandah Satishomar on 04-13-2024 Basophils/100 WBC (Bld) Automated basophil % . [facility] Complete Blood Count Auto Di ffon 04-13-2024 Basophils (Bld) [#/Vol] 0.0 10*3/uL Normal 0.0-0.2 The [facility] Comment on above: Result Comment: PERF ORMED BY: [place] [address] PATHOLOGIST GREENHOUSE MANAGER RADHA MANNING M.D. Performed By: #### C UU, ADDONUAPLUS #### [address] Basophils/100 WBC (Bld) 0.4 % Normal . T felipe [facility] Comment on above: Performed By: #### C UU, ADDONUAPLUS #### [address] Eosinophils (Bld) [#/Vol] 0.6 10*3/uL High 0.0-0.45 The [facility] Comment on above: Performed By: #### C UU, ADDONUAPLUS #### [address] Eosinophils/100 WBC (Bld) 6.7 % Normal . [facility] Comment on above: Performed By: #### C UU, ADDONUAPLUS #### [address] Erythrocyte distribution width (RBC) [Ratio] 14.2 % Normal 12.0-14.8 The [facility] Comment on above: Performed By: #### C UU, ADDONUAPLUS #### [address] Hematocrit (Bld) [Volume fraction] 40.8 % Normal 38.8-50.0 The [facility] Comment on above: Performed By: #### C UU, ADDONUAPLUS #### [address] Hemoglobin (Bld) [Mass/Vol] 14.3 g/dL Normal 13.0-17.0 The [facility] Comment on above: Performed By: #### C UU, ADDONUAPLUS #### [address] Lymphocytes (Bld) [#/Vol] 1.6 10*3/uL Normal 1.00-4.8 The [facility] Comment on above: Performed By: #### C UU, ADDONUAPLUS #### [address] Lymphocytes/100 WBC (Bld) 18.6 % Normal . [facility] Comment on above: Performed By: #### C UU, ADDONUAPLUS #### [address] MCH (RBC) [Entitic mass] 30.2 pg Normal 27.5-35.2 The [facility] Comment on above: Performed By: #### C UU, ADDONUAPLUS #### [address] MCV (RBC) [Entitic vol] 86.4 fL Normal 83.5-101 [facility] Comment on above: Performed By: #### C UU, ADDONUAPLUS #### [address] Mean Corpuscular HGB Conc 35.0 g/dL Normal 32.5-35.6 The [facility] Comment on above: Performed By: #### C UU, ADDONUAPLUS #### [address] Monocytes (Bld) [#/Vol] 1.0 10*3/uL High 0.0-0.8 The [facility] Comment on above: Performed By: #### C UU, ADDONUAPLUS #### [address] Monocytes/100 WBC (Bld) 11.0 % Normal . [facility] Comment on above: Performed By: #### C UU, ADDONUAPLUS #### [address] Neutrophils (Bld) [#/Vol] 5.5 10*3/uL Normal 1.8-7.7 The [facility] Comment on above: Performed By: #### C UU, ADDONUAPLUS #### [address] Neutrophils/100 WBC (Bld) 63.3 % Normal . [facility] Comment on above: Performed By: #### C UU, ADDONUAPLUS #### [address] NRBC% 0.1 /100{WBC} Normal 0-0.5 The [facility] Comment on above: Performed By: #### C UU, ADDONUAPLUS #### [address] Platelet mean volume (Bld) [Entitic vol] 7.9 fL Normal 6.6-10.1 The [facility] Comment on above: Performed By: #### C UU, ADDONUAPLUS #### [address] Platelets (Bld) [#/Vol] 245 10*3/uL Normal 150-450 [facility] Comment on above: Performed By: #### C UU, ADDONUAPLUS #### [address] RBC (Bld) [#/Vol] 4.73 10*6/uL Normal 3.90-5.60 [facility] Comment on above: Performed By: #### C UU, ADDONUAPLUS #### [address] WBC (Bld) [#/Vol] 8.7 10*3/uL Normal 4.1-10.5 [facility] Comment on above: Performed By: #### C UU, ADDONUAPLUS #### [address] Comprehensive Metabolic Pane nazanin 04-13-2024 Albumin [Mass/Vol] 3.5 g/dL Normal 3.5-5.7 The [facility] Comment on above: Performed By: #### C UU, ADDONUAPLUS #### [address] Albumin/Globulin [Mass ratio] 1.2 {ratio} Normal [facility] Comment on above: Performed By: #### C UU, ADDONUAPLUS #### [facility] [address] [place] [address] [place] ALP [Catalytic activity/Vol] 44 U/L Normal 34-104 [facility] Comment on above: Performed By: #### C UU, ADDONUAPLUS #### [place] [id number] [facility] ALT [Catalytic activity/Vol] 18 U/L Normal 7-52 [facility] Comment on above: Performed By: #### C UU, ADDONUAPLUS #### [place] [id number] [facility] Anion gap [Moles/Vol] 13.9 mmol/L Normal 6.0-15.0 Th e [facility] Comment on above: Performed By: #### C UU, ADDONUAPLUS #### [address] AST [Catalytic activity/Vol] 25 U/L Normal 13-39 [facility] Comment on above: Performed By: #### C UU, ADDONUAPLUS #### [place] [address] [place] Bilirubin [Mass/Vol] 0.6 mg/dL Normal 0.3-1.0 [facility] Comment on above: Performed By: #### C UU, ADDONUAPLUS #### [place] [address] [place] Calcium [Mass/Vol] 8.8 mg/dL Normal 8.6-10.3 [facility] Comment on above: Performed By: #### C UU, ADDONUAPLUS #### [place] [address] [place] Chloride [Moles/Vol] 104 mmol/L Normal 98-107 [facility] Comment on above: Performed By: #### C UU, ADDONUAPLUS #### [facility] [address] [place], [place] [id number] [place] CO2 [Moles/Vol] 23.6 mmol/L Normal 21.0-31.0 The [facility] Comment on above: Performed By: #### C UU, ADDONUAPLUS #### [address] Creatinine [Mass/Vol] 2.41 mg/dL High 0.70-1.30 The [facility] Comment on above: Performed By: #### C UU, ADDONUAPLUS #### [address] Creatinine Clr Calc Pharmacy 33.55 Normal [facility] Comment on above: Result Comment: PERF ORMED BY: [place] [address] PATHOLOGIST GREENHOUSE MANAGER RADHA MANNING M.D. Performed By: #### C UU, ADDONUAPLUS #### [address] Estimated GFR 26.478 mL/Min Normal [facility] Comment on above: Performed By: #### C UU, ADDONUAPLUS #### [address] Globulin (S) [Mass/Vol] 2.9 g/dL Normal T he [facility] Comment on above: Performed By: #### C UU, ADDONUAPLUS #### [address] Glucose [Mass/Vol] 100 mg/dL Normal 70-100 The [facility] Comment on above: Result Comment: [place] Glucose Reference Range is dependent on time and content of last meal. Glucose of more than 200 mg/dL in a nonstressed, ambulatory subject supports the diagnosis of Diabetes Mellitus. ADA recommended reference range Performed By: #### C UU, ADDONUAPLUS #### [address] Potassium [Moles/Vol] 3.5 mmol/L Normal 3.5-5.1 The [facility] Comment on above: Performed By: #### C UU, ADDONUAPLUS #### [address] Protein [Mass/Vol] 6.4 g/dL Normal 6.4-8.9 The [facility] Comment on above: Performed By: #### C UU, ADDONUAPLUS #### [facility] [address] Sodium [Moles/Vol] 138 mmol/L Normal 136-145 The [facility] Comment on above: Performed By: #### C UU, ADDONUAPLUS #### [facility] [address] Urea nitrogen [Mass/Vol] 39 mg/dL High 7-25 The [facility] Comment on above: Performed By: #### C UU, ADDONUAPLUS #### [facility] [address] Eosinophils Auto (Bld) [#/Vo l]Ordered By: Obaydah Satishomar on 04-13-2024 Eosinophils (Bld) [#/Vol] Automated eosinophil count High 0.0-0.45 [facility] Eosinophils/100 WBC Auto (Bl d)Ordered By: Obaydah Daromar on 04-13-2024 Eosinophils/100 WBC (Bld) Automated eosinophil % . [facility] Lymphocytes Auto (Bld) [#/Vo l]Ordered By: Obaydah Daromar on 04-13-2024 Lymphocytes (Bld) [#/Vol] Lymphocytes [#/volume] in Blood by Automated count 1.00-4.8 [facility] Lymphocytes/100 WBC Auto (Bl d)Ordered By: Obaydah Daromar on 04-13-2024 Lymphocytes/100 WBC (Bld) Lymphocytes/100 leukocytes in Blood by Automated count . [facility] Monocytes Auto (Bld) [#/Vol] Ordered By: Obaydah Daromar on 04-13-2024 Monocytes (Bld) [#/Vol] Automated blood monocyte count High 0.0-0.8 [facility] Monocytes/100 WBC Auto (Bld) Ordered By: Obaydah Daromar on 04-13-2024 Monocytes/100 WBC (Bld) Automated monocyte % . [facility] Neutrophils Auto (Bld) [#/Vo l]Ordered By: Obaydali Covarrubiasomar on 04-13-2024 Neutrophils (Bld) [#/Vol] Neutrophils [#/volume] in Blood by Automated count 1.8-7.7 [facility] Neutrophils/100 WBC Auto (Bl d)Ordered By: Obsusanda Satishomar on 04-13-2024 Neutrophils/100 WBC (Bld) Automated neutrophil % . [facility] Nucleated erythrocytes [Pres ence] in Blood by Automated countOrdered By: Obsusanda Satishomar on 04-13-2024 Nucleated RBC Auto Ql (Bld) Nucleated erythrocytes [Presence] in Blood by Automated count 0-0.5 [facility] WBC Auto (Bld) [#/Vol]Ordere d By: Obsusanda Satishomar on 04-13-2024 WBC (Bld) [#/Vol] Leukocytes [#/volume ] in Blood by Automated count 4.1-10.5 [facility] Anti-Xa UF Heparinon 025 Anti-Xa UF Heparin 0.32 [IU]/mL Normal 0.30-0.70 [facility] Comment on above: Result Comment: Use the aPTT protocol when triglycerides are > 800 mg/dL, total bilirubin is > 20 mg/dL and/or patient has received a DOAC, Fondaparinux or LMWH within 72 hours AND baseline anti-Xa level is > 0.7 units/mL PERFORMED BY: [place] [address] PATHOLOGIST GREENHOUSE MANAGER RADHA MANNING M.D. Performed By: #### TINO KNOX #### [address] Anti-Xa UF Heparin 0.23 [IU]/mL Low 0.30-0.70 [facility] Comment on above: Result Comment: Use the aPTT protocol when triglycerides are > 800 mg/dL, total bilirubin is > 20 mg/dL and/or patient has received a DOAC, Fondaparinux or LMWH within 72 hours AND baseline anti-Xa level is > 0.7 units/mL PERFORMED BY: [place] [phone] PATHOLOGIST GREENHOUSE MANAGER RADHA MANNING M.D. Performed By: #### C J LUIS BUCHANANPLUS #### [address] Anti-Xa UF Heparin 0.11 [IU]/mL Low 0.30-0.70 [facility] Comment on above: Result Comment: Use the aPTT protocol when triglycerides are > 800 mg/dL, total bilirubin is > 20 mg/dL and/or patient has received a DOAC, Fondaparinux or LMWH within 72 hours AND baseline anti-Xa level is > 0.7 units/mL PERFORMED BY: [place] [address] PATHOLOGIST GREENHOUSE MANAGER RADHA MANNING M.D. Performed By: #### C J LUIS BUHCANANPLUS #### [address] Appearance of UrineOrdered B y: Tobi Monroy on 04-12-2024 Appearance (U) Urine appearance Abnormal [facility] Bacteria [Presence] in Urine by AutomatedOrdered By: Tobi Monroy on 04-12-2024 Bacteria Auto Ql (U) Bacteria [Presence] in Urine by Automated High None Seen [facility] Bilirubin Test strip Ql (U)O rdered By: Tobi Monroy on 04-12-2024 Bilirubin Ql (U) Bilirubin.total [Pre sence] in Urine by Test strip Negative [facility] Color Auto (U)Ordered By: Ab tim Monroy on 04-12-2024 Color (U) Color of Urine by Auto Abnormal Yellow Fi [facility] Complete Blood Count Auto Di ffon 04-12-2024 Basophils (Bld) [#/Vol] 0.0 10*3/uL Normal 0.0-0.2 [facility] Comment on above: Result Comment: PERF ORMED BY: [place] [address] PATHOLOGIST GREENHOUSE MANAGER RADHA MANNING M.D. Performed By: #### C UU, ADDONUAPLUS #### [address] Basophils/100 WBC (Bld) 0.3 % Normal . T felipe [facility] Comment on above: Performed By: #### C UU, ADDONUAPLUS #### [address] Eosinophils (Bld) [#/Vol] 0.5 10*3/uL High 0.0-0.45 [facility] Comment on above: Performed By: #### C UU, ADDONUAPLUS #### [place] [address] [place] Eosinophils/100 WBC (Bld) 4.7 % Normal . [facility] Comment on above: Performed By: #### C UU, ADDONUAPLUS #### [address] Erythrocyte distribution width (RBC) [Ratio] 14.2 % Normal 12.0-14.8 [facility] Comment on above: Performed By: #### C UU, ADDONUAPLUS #### [address] Hematocrit (Bld) [Volume fraction] 39.4 % Normal 38.8-50.0 [facility] Comment on above: Performed By: #### C UU, ADDONUAPLUS #### [address] Hemoglobin (Bld) [Mass/Vol] 13.8 g/dL Normal 13.0-17.0 [facility] Comment on above: Performed By: #### C UU, ADDONUAPLUS #### [place] [address] [place] Lymphocytes (Bld) [#/Vol] 2.6 10*3/uL Normal 1.00-4.8 [facility] Comment on above: Performed By: #### C UU, ADDONUAPLUS #### [place] [address] [place] Lymphocytes/100 WBC (Bld) 23.6 % Normal . [facility] Comment on above: Performed By: #### C UU, ADDONUAPLUS #### [address] MCH (RBC) [Entitic mass] 30.6 pg Normal 27.5-35.2 [facility] Comment on above: Performed By: #### C UU, ADDONUAPLUS #### [address] MCV (RBC) [Entitic vol] 87.6 fL Normal 83.5-101 [facility] Comment on above: Performed By: #### C UU, ADDONUAPLUS #### [address] Mean Corpuscular HGB Conc 34.9 g/dL Normal 32.5-35.6 [facility] Comment on above: Performed By: #### C UU, ADDONUAPLUS #### [address] Monocytes (Bld) [#/Vol] 1.2 10*3/uL High 0.0-0.8 [facility] Comment on above: Performed By: #### C UU, ADDONUAPLUS #### [address] Monocytes/100 WBC (Bld) 11.0 % Normal . [facility] Comment on above: Performed By: #### C UU, ADDONUAPLUS #### [address] Neutrophils (Bld) [#/Vol] 6.6 10*3/uL Normal 1.8-7.7 [facility] Comment on above: Performed By: #### C UU, ADDONUAPLUS #### [address] Neutrophils/100 WBC (Bld) 60.4 % Normal . [facility] Comment on above: Performed By: #### C UU, ADDONUAPLUS #### [place] [id number] [place] NRBC% 0.1 /100{WBC} Normal 0-0.5 [facility] Comment on above: Performed By: #### C UU, ADDONUAPLUS #### [address] Platelet mean volume (Bld) [Entitic vol] 8.0 fL Normal 6.6-10.1 [facility] Comment on above: Performed By: #### C UU, ADDONUAPLUS #### [address] Platelets (Bld) [#/Vol] 265 10*3/uL Normal 150-450 [facility] Comment on above: Performed By: #### C UU, ADDONUAPLUS #### [address] RBC (Bld) [#/Vol] 4.50 10*6/uL Normal 3.90-5.60 [facility] Comment on above: Performed By: #### C UU, ADDONUAPLUS #### [address] WBC (Bld) [#/Vol] 11.0 10*3/uL High 4.1-10.5 [facility] Comment on above: Performed By: #### C UU, ADDONUAPLUS #### [address] Comprehensive Metabolic Pane nazanin 04-12-2024 Albumin [Mass/Vol] 3.2 g/dL Low 3.5-5.7 [facility] Comment on above: Performed By: #### C UU, ADDONUAPLUS #### [address] Albumin/Globulin [Mass ratio] 1.5 {ratio} Normal [facility] Comment on above: Performed By: #### C UU, ADDONUAPLUS #### [address] ALP [Catalytic activity/Vol] 42 U/L Normal 34-104 [facility] Comment on above: Performed By: #### C UU, ADDONUAPLUS #### [facility] [address] ALT [Catalytic activity/Vol] 13 U/L Normal 7-52 [facility] Comment on above: Performed By: #### C UU, ADDONUAPLUS #### [facility] [address] Anion gap [Moles/Vol] 14.4 mmol/L Normal 6.0-15.0 Th e [facility] Comment on above: Performed By: #### C UU, ADDONUAPLUS #### [address] AST [Catalytic activity/Vol] 18 U/L Normal 13-39 [facility] Comment on above: Performed By: #### C UU, ADDONUAPLUS #### [address] Bilirubin [Mass/Vol] 0.8 mg/dL Normal 0.3-1.0 [facility] Comment on above: Performed By: #### C UU, ADDONUAPLUS #### [address] Calcium [Mass/Vol] 8.4 mg/dL Low 8.6-10.3 [facility] Comment on above: Performed By: #### C UU, ADDONUAPLUS #### [place] [address] [place] Chloride [Moles/Vol] 103 mmol/L Normal 98-107 [facility] [facility] Comment on above: Performed By: #### C UU, ADDONUAPLUS #### [place] [address] [place] CO2 [Moles/Vol] 24.3 mmol/L Normal 21.0-31.0 [facility] Comment on above: Performed By: #### C UU, ADDONUAPLUS #### [facility] [address] [place] [address] [place] Creatinine [Mass/Vol] 2.62 mg/dL High 0.70-1.30 [facility] Comment on above: Performed By: #### C UU, ADDONUAPLUS #### [address] Creatinine Clr Calc Pharmacy 27.61 Normal [facility] Comment on above: Result Comment: PERF ORMED BY: [place] [address] PATHOLOGIST GREENHOUSE MANAGER RADHA MANNING M.D. Performed By: #### C UU, ADDONUAPLUS #### [address] Estimated GFR 23.951 mL/Min Normal [facility] Comment on above: Performed By: #### C UU, ADDONUAPLUS #### [address] Globulin (S) [Mass/Vol] 2.1 g/dL Normal T he [facility] Comment on above: Performed By: #### C UU, ADDONUAPLUS #### [address] Glucose [Mass/Vol] 92 mg/dL Normal 70-100 [facility] Comment on above: Result Comment: [facility] Glucose Reference Range is dependent on time and content of last meal. Glucose of more than 200 mg/dL in a nonstressed, ambulatory subject supports the diagnosis of Diabetes Mellitus. ADA recommended reference range Performed By: #### C UU, ADDONUAPLUS #### [address] Potassium [Moles/Vol] 3.7 mmol/L Normal 3.5-5.1 [facility] Comment on above: Performed By: #### C UU, ADDONUAPLUS #### [address] Protein [Mass/Vol] 5.3 g/dL Low 6.4-8.9 [facility] Comment on above: Performed By: #### C UU, ADDONUAPLUS #### [address] Sodium [Moles/Vol] 138 mmol/L Normal 136-145 [facility] Comment on above: Performed By: #### C UU, ADDONUAPLUS #### [address] Urea nitrogen [Mass/Vol] 40 mg/dL High 7-25 [facility] Comment on above: Performed By: #### C UU, ADDONUAPLUS #### [place] [address] [place] Dipstick and Microscopicon 0 04-12-2024 Appearance (U) Turbid Critically abnormal Clear [facility] Comment on above: Order Comment: Name Collection Type:: Ruiz Catheter Performed By: #### C UU, ADDONUAPLUS #### [address] Bacteria,Urine 4+ High None Seen [facility] Comment on above: Order Comment: Name Collection Type:: Ruiz Catheter Performed By: #### C UU, ADDONUAPLUS #### [address] Bilirubin,Urine Negative Normal Negative [facility] Comment on above: Order Comment: Name Collection Type:: Ruiz Catheter Performed By: #### C UU, ADDONUAPLUS #### [address] Bud[place] Yeast,Urine 2+ High None Seen [facility] Comment on above: Order Comment: Name Collection Type:: Ruiz Catheter Result Comment: PERF ORMED BY: [place] [address] PATHOLOGIST GREENHOUSE MANAGER RADHA MANNING M.D. Performed By: #### C UU, ADDONUAPLUS #### [address] Color (U) Light-[place] Critically abnormal Yellow [facility] Comment on above: Order Comment: Name Collection Type:: Ruiz Catheter Performed By: #### C UU, ADDONUAPLUS #### [place] [address] [place] Glucose Ql (U) Normal Normal Normal [facility] Comment on above: Order Comment: Name Collection Type:: Ruiz Catheter Performed By: #### C UU, ADDONUAPLUS #### [address] Hyaline Casts,Urine 20-49 High 0-8 [facility] Comment on above: Order Comment: Name Collection Type:: Ruiz Catheter Performed By: #### C UU, ADDONUAPLUS #### [address] Ketones Ql (U) Trace High Negative [facility] Comment on above: Order Comment: Name Collection Type:: Ruiz Catheter Performed By: #### C UU, ADDONUAPLUS #### [address] Leukocyte esterase Test strip Ql (U) 4+ High Negative [facility] Comment on above: Order Comment: Name Collection Type:: Ruiz Catheter Performed By: #### C UU, ADDONUAPLUS #### [address] Mucus,Urine 3+ Critically abnormal [facility] Comment on above: Order Comment: Name Collection Type:: Ruiz Catheter Performed By: #### C UU, ADDONUAPLUS #### [place] [address] [place] Nitrite,Urine Negative Normal Negative [facility] Comment on above: Order Comment: Name Collection Type:: Ruiz Catheter Performed By: #### C UU, ADDONUAPLUS #### [address] Occult Blood,Urine 3+ High Negative [facility] Comment on above: Order Comment: Name Collection Type:: Ruiz Catheter Result Comment: PERF ORMED BY: [place] [address] PATHOLOGIST GREENHOUSE MANAGER RADHA MANNING M.D. Performed By: #### C UU, ADDONUAPLUS #### [address] [address] [place] pH (U) 5.5 [pH] Normal 5.0-9.0 [facility] Comment on above: Order Comment: Name Collection Type:: Ruiz Catheter Performed By: #### C UU, ADDONUAPLUS #### [address] Protein (U) [Mass/Vol] 50 mg/dL High Negative Th e [facility] Comment on above: Order Comment: Name Collection Type:: Ruiz Catheter Performed By: #### C UU, ADDONUAPLUS #### [address] RBC,Urine 50-100 High 0-4 [facility] Comment on above: Order Comment: Name Collection Type:: Ruiz Catheter Performed By: #### C UU, ADDONUAPLUS #### [address] Specificy [place],Urine 1.011 Normal 1.00 1-1.03 0 [facility] Comment on above: Order Comment: Name Collection Type:: Ruiz Catheter Performed By: #### C UU, ADDONUAPLUS #### [address] Squamous Epithelial Cell,Urine 3-4 High 0-2 [facility] Comment on above: Order Comment: Name Collection Type:: Ruiz Catheter Performed By: #### C UU, ADDONUAPLUS #### [address] Urobilinogen,Urine Normal Normal Normal [facility] Comment on above: Order Comment: Name Collection Type:: Ruiz Catheter Performed By: #### C UU, ADDONUAPLUS #### [address] WBC CLUMP, Urine Many High None Seen [facility] Comment on above: Order Comment: Name Collection Type:: Ruiz Catheter Performed By: #### C UU, ADDONUAPLUS #### [address] WBC,Urine Innumerable High 0-4 [facility] Comment on above: Order Comment: Name Collection Type:: Ruiz Catheter Performed By: #### C UU, ADDCARIDADUAPLUS #### [facility] [place] [address] Epithelial cells.squamous [# /area] in Urine sediment by Automated countOrdered By: Tobi Monroy on 04-12-2024 Epithelial cells.squamous Auto (Urine sed) [#/Area] Epithelial cells.squamous [#/area] in Urine sediment by Automated count High 0-2 [facility] Erythrocytes [#/area] in Uri ne sediment by Automated countOrdered By: Tobi Monroy on 04-12-2024 RBC Auto (Urine sed) [#/Area] Erythrocytes [#/area] in Urine sediment by Automated count High 0-4 [facility] Glucose [Mass/volume] in Uri ne by Test stripOrdered By: Tobi Monroy on 04-12-2024 Glucose Test strip (U) [Mass/Vol] Glucose [Mass/volume] in Urine by Test strip Normal [facility] Hemoglobin Test strip Ql (U) Ordered By: Tobi Monroy on 04-12-2024 Hemoglobin Ql (U) Hemoglobin [Presence ] in Urine by Test strip High Negative [facility] Heparin anti-Xa unfractionat edOrdered By: Keron Gutierres on 04-12-2024 Heparin unfractionated Chromogenic method Qn (PPP) Heparin anti-Xa unfractionated 0.30-0.70 [facility] Comment on above: Use the aPTT [...] in Urine sediment by Automated count High 0-8 [facility] Ketones Test strip Ql (U)Ord ered By: Tobi Monroy on 04-12-2024 Ketones Ql (U) Ketones [Presence] i n Urine by Test strip High Negative [facility] Leukocyte clumps [Presence] in Urine by AutomatedOrdered By: Tobi Monroy on 04-12-2024 Leukocyte clumps Auto Ql (U) Leukocyte clumps [Presence] in Urine by Automated High None Seen [facility] Leukocyte esterase [Presence ] in Urine by Test stripOrdered By: Tobi Monroy on 04-12-2024 Leukocyte esterase Test strip Ql (U) Leukocyte esterase [Presence] in Urine by Test strip High Negative [facility] Leukocytes [#/area] in Urine sediment by Automated countOrdered By: Tobi Monroy on 04-12-2024 WBC Auto (Urine sed) [#/Area] Leukocytes [#/area] in Urine sediment by Automated count High 0-4 [facility] Mucus [Presence] in Urine by AutomatedOrdered By: Tobi Monroy on 04-12-2024 Mucus Auto Ql (U) Mucus [Presence] in Urine by Automated Abnormal [facility] Nitrite Test strip Ql (U)Ord ered By: Tobi Monroy on 04-12-2024 Nitrite Ql (U) Nitrite [Presence] i n Urine by Test strip Negative [facility] Protein Creat Ratio Ur Rando mon 04-12-2024 Creatinine, Urine (Random) 102.00 mg/dL Normal [facility] Comment on above: Result Comment: No r eference range established Performed By: #### C UU, ADDONUAPLUS #### [facility] [address] [place] [address] [place] Protein (U) [Mass/Vol] 44 mg/dL High 0-9 Th e [facility] Comment on above: Performed By: #### C UU, ADDONUAPLUS #### [facility] [address] [place] [id number] [place] Urine Protein/Creatinine Ratio 431 mg/g{Cre} High 0-200 [facility] Comment on above: Result Comment: PERF ORMED BY: [place] [address] PATHOLOGIST GREENHOUSE MANAGER RADHA MANNING M.D. Performed By: #### C UU, ADDONUAPLUS #### [facility] [place] [address] [place] [id number] [facility] Protein Test strip (U) [Mass /Vol]Ordered By: Tobi Monroy on 04-12-2024 Protein (U) [Mass/Vol] Protein [Mass/vol ume] in Urine by Test strip High Negative [facility] Protein [Mass/volume] in Uri neOrdered By: Tobi Monroy on 04-12-2024 Protein (U) [Mass/Vol] Protein [Mass/vol ume] in Urine High 0-9 [facility] Specific gravity Test strip (U) [Rel density]Ordered By: Tobi Monroy on 04-12-2024 Specific gravity (U) [Rel density] Specific gravity of Urine by Test strip 1.001-1.03 0 [facility] US renal BIon 04-12-2024 US renal BI [facility] [place] [address] [place] [address] Ultrasound Report Signed Patient: Corwin Muller MR#: [id number] : 1945 Acct:[id number] Age/Sex: 79 / M ADM Date: 04/10/24 Loc: Room: [address] [place] [address] Type: ADM IN Attending Dr: Jersey Bess MD Ordering Provider: Tobi Monroy MD Date of Service: 04/12/24 US/US renal BI: YOJANA Copies to: MD Jersey Patrick MD US renal BI 04/12/2024 8:52 AM SIGNS AND SYMPTOMS: OYJANA COMPARISON: None. FINDINGS: Right kidney measures 11.78 [...] Jones Pedro M.D.04/12/2024 9:34 PM Dictation Location: [place] [address] Tech: Lacey Archer Transcribed By: RK 04/12/242133 Dictated By: Jones Pedro II, MD 04/12/242132 Signed By: 04/12/242133 Normal [facility] Urine Cultureon 04-12-2024 Bacteria identified Cx Nom (U) ORGANISM: Staphylococcus epidermidis (O:STAEPI) Bon Aqua Count >100,000 Aerobic JONATHAN Charge (PCMIC38) SUSCEPTIBILITY [...] RESISTANT TO ALL B-LACTAM DRUGS. PERFORMED BY: [facility] [address] [place] [address] PATHOLOGIST GREENHOUSE MANAGER RADHA MANNING M.D. Normal [facility] Comment on above: Performed By: #### C UU, ADDONUAPLUS #### [facility] [address] Urine cultureOrdered By: Qing Monroy on 04-12-2024 Bacteria identified Cx Nom (U) Abnormal [facility] Bacteria identified Cx Nom (U) Abnormal [facility] Urine protein/creatinine rat ioOrdered By: Tobi Monroy on 04-12-2024 Protein/Creatinine (U) [Ratio] Urine protein/creatinine ratio High 0-200 [facility] Urobilinogen Test strip (U) [Mass/Vol]Ordered By: Tobi Monroy on 04-12-2024 Urobilinogen (U) [Mass/Vol] Urobilinogen [Mass/volume] in Urine by Test strip Normal [facility] Yeast.budding [Presence] in Urine by Computer assisted methodOrdered By: Tobi Monroy on 04-12-2024 Yeast.budding Computer assisted Ql (U) Yeast.budding [Presence] in Urine by Computer assisted method High None Seen [facility] pH Test strip (U)Ordered By: Tobi Monroy on 04-12-2024 pH (U) pH of Urine by Test strip 5.0-9.0 [facility] Anti-Xa UF Heparinon 025 Anti-Xa UF Heparin 0.24 [IU]/mL Low 0.30-0.70 [facility] Comment on above: Result Comment: Use the aPTT protocol when triglycerides are > 800 mg/dL, total bilirubin is > 20 mg/dL and/or patient has received a DOAC, Fondaparinux or LMWH within 72 hours AND baseline anti-Xa level is > 0.7 units/mL PERFORMED BY: [place] [address] PATHOLOGIST GREENHOUSE MANAGER RADHA MANNING M.D. Performed By: #### U FHEP #### [facility] [address] [place] [address] Anti-Xa UF Heparin 0.56 [IU]/mL Normal 0.30-0.70 [facility] Comment on above: Result Comment: Use the aPTT protocol when triglycerides are > 800 mg/dL, total bilirubin is > 20 mg/dL and/or patient has received a DOAC, Fondaparinux or LMWH within 72 hours AND baseline anti-Xa level is > 0.7 units/mL PERFORMED BY: [place] [address] PATHOLOGIST GREENHOUSE MANAGER RADHA MANNING M.D. Performed By: #### C UU, ADDONUAPLUS #### [place] [address] Complete Blood Count Auto Di ffon 04-11-2024 Basophils (Bld) [#/Vol] 0.0 10*3/uL Normal 0.0-0.2 [facility] Comment on above: Result Comment: PERF ORMED BY: [place] [address] PATHOLOGIST GREENHOUSE MANAGER RADHA MANNIGN M.D. Performed By: #### C UU, ADDONUAPLUS #### [address] Basophils/100 WBC (Bld) 0.4 % Normal . T fel[place] [facility] Comment on above: Performed By: #### C UU, ADDONUAPLUS #### [address] Eosinophils (Bld) [#/Vol] 0.4 10*3/uL Normal 0.0-0.45 [facility] Comment on above: Performed By: #### C UU, ADDONUAPLUS #### [address] Eosinophils/100 WBC (Bld) 4.3 % Normal . [facility] Comment on above: Performed By: #### C UU, ADDONUAPLUS #### [address] Erythrocyte distribution width (RBC) [Ratio] 14.3 % Normal 12.0-14.8 [facility] Comment on above: Performed By: #### C UU, ADDONUAPLUS #### [address] Hematocrit (Bld) [Volume fraction] 42.1 % Normal 38.8-50.0 [facility] Comment on above: Performed By: #### C UU, ADDONUAPLUS #### [address] Hemoglobin (Bld) [Mass/Vol] 14.6 g/dL Normal 13.0-17.0 [facility] Comment on above: Performed By: #### C UU, ADDONUAPLUS #### [address] Lymphocytes (Bld) [#/Vol] 2.0 10*3/uL Normal 1.00-4.8 [facility] Comment on above: Performed By: #### C UU, ADDONUAPLUS #### [address] Lymphocytes/100 WBC (Bld) 21.4 % Normal . [facility] Comment on above: Performed By: #### C UU, ADDONUAPLUS #### [address] MCH (RBC) [Entitic mass] 30.6 pg Normal 27.5-35.2 [facility] Comment on above: Performed By: #### C UU, ADDONUAPLUS #### [address] MCV (RBC) [Entitic vol] 88.1 fL Normal 83.5-101 [facility] Comment on above: Performed By: #### C UU, ADDONUAPLUS #### [address] Mean Corpuscular HGB Conc 34.7 g/dL Normal 32.5-35.6 [facility] Comment on above: Performed By: #### C UU, ADDONUAPLUS #### [address] Monocytes (Bld) [#/Vol] 1.0 10*3/uL High 0.0-0.8 [facility] Comment on above: Performed By: #### C UU, ADDONUAPLUS #### [address] Monocytes/100 WBC (Bld) 10.9 % Normal . [facility] Comment on above: Performed By: #### C UU, ADDONUAPLUS #### [address] Neutrophils (Bld) [#/Vol] 5.9 10*3/uL Normal 1.8-7.7 [facility] Comment on above: Performed By: #### C UU ADDONUAPLUS #### [address] Neutrophils/100 WBC (Bld) 63.0 % Normal . [facility] Comment on above: Performed By: #### C UU ADDONUAPLUS #### [address] NRBC% 0.1 /100{WBC} Normal 0-0.5 [facility] Comment on above: Performed By: #### C UBarbara ADDONUAPLUS #### [address] Platelet mean volume (Bld) [Entitic vol] 8.1 fL Normal 6.6-10.1 [facility] Comment on above: Performed By: #### C UBarbara ADDONUAPLUS #### [address] Platelets (Bld) [#/Vol] 255 10*3/uL Normal 150-450 [facility] Comment on above: Performed By: #### C UBarbara ADDONUAPLUS #### [address] RBC (Bld) [#/Vol] 4.78 10*6/uL Normal 3.90-5.60 [facility] Comment on above: Performed By: #### C UU ADDONUAPLUS #### [address] WBC (Bld) [#/Vol] 9.4 10*3/uL Normal 4.1-10.5 [facility] Comment on above: Performed By: #### C UU ADDONUAPLUS #### [address] Comprehensive Metabolic Pane nazanin 04-11-2024 Albumin [Mass/Vol] 3.6 g/dL Normal 3.5-5.7 [facility] Comment on above: Performed By: #### C UU, ADDONUAPLUS #### [place] [address] [place] Albumin/Globulin [Mass ratio] 1.3 {ratio} Normal [facility] Comment on above: Performed By: #### C UU, ADDONUAPLUS #### [place] [id number] [facility] ALP [Catalytic activity/Vol] 50 U/L Normal 34-104 [facility] Comment on above: Performed By: #### C UU, ADDONUAPLUS #### [address] ALT [Catalytic activity/Vol] 14 U/L Normal 7-52 [facility] Comment on above: Performed By: #### C UU, ADDONUAPLUS #### [address] Anion gap [Moles/Vol] 12.5 mmol/L Normal 6.0-15.0 [facility] Comment on above: Performed By: #### C UU, ADDONUAPLUS #### [place] [address] [place] AST [Catalytic activity/Vol] 19 U/L Normal 13-39 [facility] Comment on above: Performed By: #### C UU, ADDONUAPLUS #### [place] [address] [place] Bilirubin [Mass/Vol] 1.0 mg/dL Normal 0.3-1.0 [facility] Comment on above: Performed By: #### C UU, ADDONUAPLUS #### [place] [address] [place] Calcium [Mass/Vol] 8.7 mg/dL Normal 8.6-10.3 [facility] Comment on above: Performed By: #### C UU, ADDONUAPLUS #### [place] [address] [place] Chloride [Moles/Vol] 104 mmol/L Normal 98-107 [facility] Comment on above: Performed By: #### C UU, ADDONUAPLUS #### [address] CO2 [Moles/Vol] 25.6 mmol/L Normal 21.0-31.0 [facility] Comment on above: Performed By: #### C UU, ADDONUAPLUS #### [address] Creatinine [Mass/Vol] 2.34 mg/dL High 0.70-1.30 [facility] Comment on above: Performed By: #### C UU, ADDONUAPLUS #### [address] Creatinine Clr Calc Pharmacy 30.91 Normal [facility] Comment on above: Result Comment: PERF ORMED BY: [place] [address] PATHOLOGIST GREENHOUSE MANAGER RADHA MANNING M.D. Performed By: #### C UU, ADDONUAPLUS #### [address] Estimated GFR 27.431 mL/Min Normal [facility] Comment on above: Performed By: #### C UU, ADDONUAPLUS #### [address] Globulin (S) [Mass/Vol] 2.8 g/dL Normal T he [facility] Comment on above: Performed By: #### C UU, ADDONUAPLUS #### [address] Glucose [Mass/Vol] 95 mg/dL Normal 70-100 [facility] Comment on above: Result Comment: [facility] [facility] Glucose Reference Range is dependent on time and content of last meal. Glucose of more than 200 mg/dL in a nonstressed, ambulatory subject supports the diagnosis of Diabetes Mellitus. ADA recommended reference range Performed By: #### C UU, ADDONUAPLUS #### [address] Potassium [Moles/Vol] 3.1 mmol/L Low 3.5-5.1 [facility] Comment on above: Performed By: #### C UU, ADDONUAPLUS #### [facility] [address] Protein [Mass/Vol] 6.4 g/dL Normal 6.4-8.9 [facility] Comment on above: Performed By: #### C UU, ADDONUAPLUS #### [facility] [address] Sodium [Moles/Vol] 139 mmol/L Normal 136-145 [facility] Comment on above: Performed By: #### C UU, ADDONUAPLUS #### [facility] [address] [place] [address] Urea nitrogen [Mass/Vol] 30 mg/dL High 7-25 [facility] Comment on above: Performed By: #### C UU, ADDONUAPLUS #### [address] ECG 12 lead ECGon 04-11-2024 ECG 12 lead ECG [facility] Main [place] [address] [place] [address] Electrocardiograph Report Signed Patient: Corwin Muller MR#: [id number] : 1945 Acct:[id number] Age/Sex: 79 / M ADM Date: 04/10/24 Loc: Room: [address] [place] [address] Type: ADM IN Attending Dr: Jersey Bess [...] replaced Sinus rhythm Confirmed by Bubba Jessica ([id number]) on 04/11/2024 2:15:02 PM Referred By: Electronically Signed By: Bubba Jessica Transcribed By: MUS Signed By Bubba Jessica MD 04/11/24 1415 Normal [facility] Anti-Xa UF Heparinon 025 Anti-Xa UF Heparin <0.04 Low 0.30-0.70 [facility] Comment on above: Result Comment: Use the aPTT protocol when triglycerides are > 800 mg/dL, total bilirubin is > 20 mg/dL and/or patient has received a DOAC, Fondaparinux or LMWH within 72 hours AND baseline anti-Xa level is > 0.7 units/mL PERFORMED BY: [place] [address] PATHOLOGIST GREENHOUSE MANAGER RADHA MANNING M.D. Performed By: #### P P, UFHEP, HS TROP #### [address] Basic Metabolic Panelon 03-23 Anion gap [Moles/Vol] 12.0 mmol/L Normal 6.0-15.0 [facility] Comment on above: Performed By: #### C UU, ADDONUAPLUS #### [address] Calcium [Mass/Vol] 9.2 mg/dL Normal 8.6-10.3 [facility] Comment on above: Performed By: #### C UU, ADDONUAPLUS #### [address] Chloride [Moles/Vol] 108 mmol/L High 98-107 [facility] Comment on above: Performed By: #### C UU, ADDONUAPLUS #### [address] CO2 [Moles/Vol] 22.6 mmol/L Normal 21.0-31.0 [facility] Comment on above: Performed By: #### C UU, ADDONUAPLUS #### [address] Creatinine [Mass/Vol] 2.36 mg/dL High 0.70-1.30 [facility] Comment on above: Performed By: #### C UU, ADDONUAPLUS #### [facility] [place] [address] Creatinine Clr Calc Pharmacy 30.65 Normal [facility] Comment on above: Performed By: #### C UU, ADDONUAPLUS #### [facility] [place] [address] Estimated GFR 27.152 mL/Min Normal [facility] Comment on above: Performed By: #### C UU, ADDONUAPLUS #### [address] Glucose [Mass/Vol] 109 mg/dL High 70-100 [facility] Comment on above: Result Comment: [place] Glucose Reference Range is dependent on time and content of last meal. Glucose of more than 200 mg/dL in a nonstressed, ambulatory subject supports the diagnosis of Diabetes Mellitus. ADA recommended reference range Performed By: #### C UU, ADDONUAPLUS #### [address] Potassium [Moles/Vol] 3.6 mmol/L Normal 3.5-5.1 [facility] Comment on above: Performed By: #### C UU, ADDONUAPLUS #### [place] [address] [place] Sodium [Moles/Vol] 139 mmol/L Normal 136-145 [facility] Comment on above: Performed By: #### C UU, ADDONUAPLUS #### [place] [address] [place] Urea nitrogen [Mass/Vol] 28 mg/dL High 7-25 [facility] Comment on above: Performed By: #### C UU, ADDONUAPLUS #### [place] [address] [place] Cholesterol [Mass/volume] in Serum or PlasmaOrdered By: Holly Weinberg on 04-10-2024 Cholesterol [Mass/Vol] Cholesterol [Mass /volume] in Serum or Plasma 140-200 [facility] Comment on above: Chol less than 200 m g/dl low riskChol 201-239 mg/dl borderline riskChol 240 mg/dl and greater high risk Cholesterol in HDL [Mass/vol ume] in Serum or PlasmaOrdered By: Holly Weinberg on 04-10-2024 Cholesterol in HDL [Mass/Vol] Serum or plasma high density lipoprotein (HDL) cholesterol measurement 23-92 [facility] Comment on above: HDL CHOL ATP-III CLA SSIFICATION Cardiovascular RiskHDL > or equal to 60 mg/dL LOWHDL < 40 mg/dL HIGH Cholesterol in LDL Calc [Mas s/Vol]Ordered By: Holly Weinberg on 04-10-2024 Cholesterol in LDL [Mass/Vol] Cholesterol in LDL [Mass/volume] in Serum or Plasma by calculation High 0-100 [facility] Comment on above: LDL ATP III CLASSIFI CATIONLDL less than 100 mg/dL OptimalLDL 100-129 mg/dL Near or above optimalLDL 130-159 mg/dL Borderline highLDL 160-189 mg/dL HighLDL greater than 189 mg/dL Very high Cholesterol in VLDL Calc [Ma ss/Vol]Ordered By: Holly Weinberg on 04-10-2024 Cholesterol in VLDL [Mass/Vol] Cholesterol in VLDL [Mass/volume] in Serum or Plasma by calculation [facility] Coagulation Profileon 2024 aPTT Coag (Bld) [Time] 28.8 s Normal 25.1-36.5 [facility] Comment on above: Result Comment: A he matocrit value greater than 55% may lead to inaccurate results in coagulation testing. Patients having hematocrit values >55% require a special collection tube for coagulation studies. Please contact the laboratory at [phone] for redraw instructions. Performed By: #### P P, UFHEP, HS TROP #### [facility] [address] [place] [address] INR Coag (PPP) [Relative time] 1.2 {INR} Normal [facility] Comment on above: Result [...] #### P P, UFHEP, HS TROP #### [address] PT Coag (PPP) [Time] 13.2 s High 9.0-12.9 [facility] Comment on above: Result Comment: A matocrit value greater than 55% may lead to inaccurate results in coagulation testing. Patients having hematocrit values >55% require a special collection tube for coagulation studies. Please contact the laboratory at [phone] for redraw instructions. Performed By: #### P P, UFHEP, HS TROP #### [address] Complete Blood Count Auto Di ffon 04-10-2024 Basophils (Bld) [#/Vol] 0.1 10*3/uL Normal 0.0-0.2 [facility] Comment on above: Result Comment: PERF ORMED BY: [place] [address] PATHOLOGIST GREENHOUSE MANAGER RADHA MANNING M.D. Performed By: #### C UU, ADDONUAPLUS #### [address] Basophils/100 WBC (Bld) 0.7 % Normal . [facility] Comment on above: Performed By: #### C UU, ADDONUAPLUS #### [address] Eosinophils (Bld) [#/Vol] 0.3 10*3/uL Normal 0.0-0.45 [facility] Comment on above: Performed By: #### C UU, ADDONUAPLUS #### [address] Eosinophils/100 WBC (Bld) 2.4 % Normal . [facility] Comment on above: Performed By: #### C UU, ADDONUAPLUS #### [address] Erythrocyte distribution width (RBC) [Ratio] 14.3 % Normal 12.0-14.8 [facility] Comment on above: Performed By: #### C UU, ADDONUAPLUS #### [address] Hematocrit (Bld) [Volume fraction] 44.8 % Normal 38.8-50.0 [facility] Comment on above: Performed By: #### C UU, ADDONUAPLUS #### [address] Hemoglobin (Bld) [Mass/Vol] 15.1 g/dL Normal 13.0-17.0 [facility] Comment on above: Performed By: #### C UU, ADDONUAPLUS #### [address] Lymphocytes (Bld) [#/Vol] 2.0 10*3/uL Normal 1.00-4.8 [facility] Comment on above: Performed By: #### C UU, ADDONUAPLUS #### [address] Lymphocytes/100 WBC (Bld) 17.3 % Normal . [facility] Comment on above: Performed By: #### C UU, ADDONUAPLUS #### [address] MCH (RBC) [Entitic mass] 30.0 pg Normal 27.5-35.2 [facility] Comment on above: Performed By: #### C UU, ADDONUAPLUS #### [address] MCV (RBC) [Entitic vol] 88.7 fL Normal 83.5-101 [facility] Comment on above: Performed By: #### C UU, ADDONUAPLUS #### [address] Mean Corpuscular HGB Conc 33.8 g/dL Normal 32.5-35.6 [facility] Comment on above: Performed By: #### C UU, ADDONUAPLUS #### [address] Monocytes (Bld) [#/Vol] 1.1 10*3/uL High 0.0-0.8 [facility] Comment on above: Performed By: #### C UU, ADDONUAPLUS #### [address] Monocytes/100 WBC (Bld) 10.0 % Normal . T [place] [facility] Comment on above: Performed By: #### C UU, ADDONUAPLUS #### [address] Neutrophils (Bld) [#/Vol] 7.9 10*3/uL High 1.8-7.7 [facility] Comment on above: Performed By: #### C UU, ADDONUAPLUS #### [address] Neutrophils/100 WBC (Bld) 69.6 % Normal . [facility] Comment on above: Performed By: #### C UU, ADDONUAPLUS #### [address] NRBC% 0.1 /100{WBC} Normal 0-0.5 [facility] Comment on above: Performed By: #### C UU, ADDONUAPLUS #### [address] Platelet mean volume (Bld) [Entitic vol] 8.3 fL Normal 6.6-10.1 [facility] Comment on above: Performed By: #### C UU, ADDONUAPLUS #### [address] Platelets (Bld) [#/Vol] 252 10*3/uL Normal 150-450 [facility] Comment on above: Performed By: #### C UU, ADDONUAPLUS #### [address] [place] [address] [place] RBC (Bld) [#/Vol] 5.05 10*6/uL Normal 3.90-5.60 [facility] Comment on above: Performed By: #### C UU, ADDONUAPLUS #### [facility] [address] [place], [place] [id number] [facility] WBC (Bld) [#/Vol] 11.3 10*3/uL High 4.1-10.5 [facility] Comment on above: Performed By: #### C UU, ADDONUAPLUS #### [facility] [address] [place] [address] ECG 12 lead ECGon 04-10-2024 ECG 12 lead ECG [facility] [place] [address] Electrocardiograph Report Signed Patient: Corwin Muller MR#: [id number] : 1945 Acct:[id number] Age/Sex: 79 / M ADM Date: 04/10/24 Loc: Room: [address] [place] [address] Type: ADM IN Attending Dr: Jersey Bess [...] in Lateral leads Confirmed by Bubba Jessica ([id number]) on 04/11/2024 2:09:58 PM Referred By: Electronically Signed By: Bubba Jessica Transcribed By: MUS Signed By Bubba Jessica MD 04/11/24 1410 Normal [facility] ECG 12 lead ECG [address] [address] Electrocardiograph Report Signed Patient: Corwin Muller MR#: [id number] : 1945 Acct:[id number] Age/Sex: 79 / M ADM Date: 04/10/24 Loc: Room: [address] [place] [address] Type: ADM IN Attending Dr: Jersey Bess [...] rhythm, needs review Confirmed by Bubba Jessica ([id number]) on 04/10/2024 2:56:03 PM Referred By: Electronically Signed By: Bubba Jessica Transcribed By: MUS Signed By Bubba Jessica MD 04/10/24 1456 Normal [facility] ECG 12 lead ECG [place] [id number] Electrocardiograph Report Signed Patient: Corwin Muller MR#: [id number] : 1945 Acct:[id number] Age/Sex: 79 / M ADM Date: 04/10/24 Loc: Room: [address] [place] [address] Type: ADM IN Attending Dr: Jersey Bess [...] , age undetermined Confirmed by Bubba Jessica ([id number]) on 04/10/2024 3:54:01 PM Referred By: Electronically Signed By: Bubba Jessica Transcribed By: MUS Signed By Bubba Jessica MD 04/10/24 1554 Normal [facility] echo transthoracicon [facility] echo transthoracic [facility] Main [place] [address] [place] [address] Echocardiogram Signed Patient: Corwin Muller MR#: [id number] : 1945 Acct:[id number] Age/Sex: 79 / M ADM Date: 04/10/24 Loc: Room: [address] [place] [address] Type: ADM IN Attending Dr: Jersey Bess MD Ordering Provider: Holly Weinberg APRN Date of Service: 04/10/24 [facility] echo transthoracic: chf, nstemi Copies to: MD Holly Ledesma, LAMP DEVELOPER Height: 76 in Weight: 228 lb Performed [...] 2.8 cm2 DESTINY(V,D): 2.4 cm2 Transcribed By: SCV Performed At: 04/10/24 0821 Signed By: Bubba Jessica MD 04/10/24 1414 Normal [facility] INR in Platelet poor plasma by Coagulation assayOrdered By: Kurtis Langley on 04-10-2024 INR Coag (PPP) [Relative time] INR in Platelet poor plasma by Coagulation assay [facility] Comment on above: INR Therapeutic Rang [...] [Mass/Vol] 168 mg/dL Normal 140-200 [facility] Comment on above: Result Comment: Chol less than 200 mg/dl low risk Chol 201-239 mg/dl borderline risk Chol 240 mg/dl and greater high risk Performed By: #### P P, UFHEP, HS TROP #### [facility] [address] [place] [id number] [place] Cholesterol in HDL [Mass/Vol] 26 mg/dL Normal 23-92 [facility] Comment on above: Result Comment: HDL CHOL ATP-III CLASSIFICATION Cardiovascular Risk HDL > or equal to 60 mg/dL LOW HDL < 40 mg/dL HIGH Performed By: #### P P, UFHEP, HS TROP #### [facility] [place] [address] Cholesterol.total/Rowan sterol in HDL [Mass ratio] 6.5 {ratio} Normal <5.0 [facility] Comment on above: Result Comment: PERF ORMED BY: [place] [address] PATHOLOGIST GREENHOUSE MANAGER RADHA MANNING M.D. Performed By: #### P P, UFHEP, HS TROP #### [facility] [address] LDL Cholesterol,Calculated 120 mg/dL High 0-100 [facility] Comment on above: Result Comment: LDL ATP III CLASSIFICATION LDL less than 100 mg/dL Optimal LDL 100-129 mg/dL Near or above optimal LDL 130-159 mg/dL Borderline high LDL 160-189 mg/dL High LDL greater than 189 mg/dL Very high Performed By: #### P P, UFHEP, HS TROP #### [facility] [address] [place] [id number] [place] Triglyceride w/Reflex 108 mg/dL Normal 0-149 [facility] Comment on above: Result Comment: TRIG ATP III CLASSIFICATION TRIG less than 150 mg/dL Normal TRIG 150-199 mg/dL Borderline high TRIG 200-500 mg/dL High TRIG greater than 500 mg/dL Very high Standard traceable to the Center for Disease Conrtrol and Prevention (CDC) test method. Performed By: #### P P, UFHEP, HS TROP #### [facility] [address] VLDL CHOLESTEROL 21 mg/dL Normal [facility] Comment on above: Performed By: #### P P, UFHEP, HS TROP #### [facility] [address] [place] [address] [place] Magnesiumon 04-10-2024 Magnesium [Mass/Vol] 2.0 mg/dL Normal 1.9-2.7 [facility] Comment on above: Performed By: #### P P, UFHEP, HS TROP #### [facility] [address] Prothrombin time (PT)Ordered By: Kurtis Langley on 04-10-2024 PT Coag (PPP) [Time] Prothrombin time (PT) High 9.0- 12.9 [facility] Comment on above: A hematocrit value g reater than 55% may lead to inaccurate results in coagulation testing. Patients having hematocrit values >55% require a special collection tube for coagulation studies. Please contact the laboratory at [phone] for redraw instructions. Serum or plasma total choles terol/high density lipoprotein (HDL) cholesterol mass ratOrdered By: Holly Weinberg on 04-10-2024 Cholesterol.total/Rowan sterol in HDL [Mass ratio] Serum or plasma total cholesterol/high density lipoprotein (HDL) cholesterol mass rat <5.0 [facility] Triglyceride [Mass/volume] i n Serum or PlasmaOrdered By: Holly Weinberg on 04-10-2024 Triglyceride [Mass/Vol] Triglyceride [Ma ss/volume] in Serum or Plasma 0-149 [facility] Comment on above: TRIG ATP III CLASSIF ICATIONTRIG less than 150 mg/dL NormalTRIG 150-199 mg/dL Borderline highTRIG 200-500 mg/dL High TRIG greater than 500 mg/dL Very highStandard traceable to the Center for Disease Conrtrol and Prevention (CDC) test method. Troponin I High Sensitivityo n 04-10-2024 Troponin I High Sensitivity 639 Off scale high 0-20 [facility] Comment on above: Result Comment: Crit ical Result : Called to and read back by: GI CRUM at: 04/10/2024 08:50:14 by:[id number] The Troponin units of report have been changed to meet the Chest Pain Accreditation requirement, element EC5.M1l2. Troponin units are changed from pg/ml to ng/L. Also, the decimal is removed and results are in whole numbers. PERFORMED BY: [place] [phone] PATHOLOGIST GREENHOUSE MANAGER RADHA MANNING M.D. Performed By: #### P P, UFHEP, HS TROP #### [address] Troponin I High Sensitivity 815 Off scale high 0-20 [facility] Comment on above: Result Comment: Crit ical Result : Called to and read back by: ETHEL MILLARD at: 04/10/2024 04:08:18 by:[email or web address] The Troponin units of report have been changed to meet the Chest Pain Accreditation requirement, element EC5.M1l2. Troponin units are changed from pg/ml to ng/L. Also, the decimal is removed and results are in whole numbers. PERFORMED BY: [place] [phone] PATHOLOGIST GREENHOUSE MANAGER RADHA MANNING M.D. Performed By: #### P P, UFHEP, HS TROP #### [facility] [address] [place] [address] Troponin I.cardiac [Mass/vol ume] in Serum or Plasma by Detection limit <= 0.01 ng/Ordered By: Holly Weinberg on 04-10-2024 Troponin I.cardiac DL <= 0.01 ng/mL [Mass/Vol] Troponin I.cardiac [Mass/volume] in Serum or Plasma by Detection limit <= 0.01 ng/ Critically high 0-20 [facility] Comment on above: Critical Result : Ca lled to and read back by: GI CRUM at: 04/10/2024 08:50:14 by:[id number] Troponin units of report have been changed to meet the Chest Pain Accreditation requirement, element EC5.M1l2. Troponin units are changed from pg/ml to ng/L. Also, the decimal is removed and results are in whole numbers. X-ray reportOrdered By: Jose A Jenkins on 04-10-2024 Study report [facility] Main [place] [id number] XRay Report Signed Patient: Corwin Muller MR#: [id number] : 1945 Acct:[id number] Age/Sex: 79 / M ADM Date: 5 Loc: 4C Room: [address] [place] [address] Type: ADM IN Attending Dr: Jersey Bess [...] Maximilian Jenkins M.D.04/10/2024 8:47 AM Dictation Location: [place] [address] Transcribed By: [facility] 04/10/24 0847 Dictated By: Maximilian Jenkins MD 04/10/2445 Signed By: 04/10/24 0847 [facility] Work Phone: XR chest 1V portableon 04-10 XR chest 1V portable [facility] Main [address] [address] XRay Report Signed Patient: Corwin Muller MR#: [id number] : 1945 Acct:[id number] Age/Sex: 79 / M ADM Date: 04/10/24 Loc: 4C Room: [address] [place] [address] Type: ADM IN Attending Dr: Jersey Bess MD Copies to: DO Jersey Johansenr, MD Ordering Provider: Ranjan Lomas DO Date of Service: 04/10/24 XR/XR chest 1V portable: sob SINGLE VIEW CHEST CLINICAL HISTORY: Shortness breath COMPARISON: 04/09/2024 FINDINGS: Cardiomegaly. Progression of perihilar and bibasilar airspace disease. Small effusions suspect. no pneumothorax. XR/XR chest 1V portable IMPRESSION: PROGRESSION OF THE PERIHILAR AND BIBASILAR AIRSPACE DISEASE. Impression dictated by: Maximilian Jenkins M.D.04/10/2024 8:47 AM Dictation Location: [place] [address] Transcribed By: RK 04/10/2447 Dictated By: Maximilian Jenkins MD 04/10/2445 Signed By: 04/10/24846 Normal [facility] aPTT in Platelet poor plasma by Coagulation assayOrdered By: Kurtis Langley on 04-10-2024 aPTT Coag (PPP) [Time] Activated partial thromboplastin time (aPTT) in platelet poor plasma by coagulation a 25.1-36.5 [facility] Comment on above: A hematocrit value g reater than 55% may lead to inaccurate results in coagulation testing. Patients having hematocrit values >55% require a special collection tube for coagulation studies. Please contact the laboratory at [phone] for redraw instructions. Activated partial thrombopla stin time (aPTT) in platelet poor plasma by coagulation aon 04-09-2024 aPTT Coag (PPP) [Time] Activated partial thromboplastin time (aPTT) in platelet poor plasma by coagulation a 22.3-36.2 [facility] Basophils Auto (Bld) [#/Vol] on 04-09-2024 Basophils (Bld) [#/Vol] Automated basophil count 0.0-0.1 [facility] Basophils/100 WBC Auto (Bld) on 04-09-2024 Basophils/100 WBC (Bld) Automated basophil % 0. 2-2.0 [facility] Eosinophils/100 WBC Auto (Bl d)on 04-09-2024 Eosinophils/100 WBC (Bld) Automated eosinophil % 0.9-7.0 [facility] Erythrocyte distribution wid th Auto (RBC) [Ratio]on 04-09-2024 Erythrocyte distribution width (RBC) [Ratio] Erythrocyte distribution width [Ratio] by Automated count 11.0-15.0 [facility] Estimated glomerular filtrat ion rate (GFR) non- Americanon 04-09-2024 GFR/1.73 sq M.predicted among non-blacks MDRD (S/P/Bld) [Vol rate/Area] Estimated glomerular filtration rate (GFR) non- Low >=60 mL/min/1.7 3m 2 [facility] Hematocrit Auto (Bld) [Volum e fraction]on 04-09-2024 Hematocrit (Bld) [Volume fraction] Hematocrit [Volume Fraction] of Blood by Automated count 42.0-54.0 [facility] Hemoglobin [Mass/volume] in Bloodon 04-09-2024 Hemoglobin (Bld) [Mass/Vol] Hemoglobin [Mass/volume] in Blood 14.0-18.0 [facility] INR in Platelet poor plasma by Coagulation assayon 04-09-2024 INR Coag (PPP) [Relative time] INR in Platelet poor plasma by Coagulation assay [facility] Comment on above: DESIRED INR:2.0-3.0 CONDITIONS NOT LISTED BELOW2.5-3.5 FOR PROSTHETIC HEART VALVE REPLACEMENT2.5-3.5 RECURRENT THROMBOSIS Laboratory - Chemistry and C hemistry - challengeon 04-09-2024 Calcium [Mass/Vol] 9.4 mg/dL 8.5-10.1 [facility] Chloride [Moles/Vol] 103 mmol/L 98-107 [facility] CO2 [Moles/Vol] 24.6 mmol/L 21.0-32.0 [facility] Creatinine [Mass/Vol] 2.62 mg/dL High 0.70-1.30 [facility] GFR/1.73 sq M.predicted MDRD (S/P/Bld) [Vol rate/Area] 29 mL/min/{1.73_m2} Low >=60 mL/min/1.7 3m 2 [facility] Glucose [Mass/Vol] 108 mg/dL High 74-106 [facility] Magnesium [Mass/Vol] 2.0 mg/dL 1.8-2.4 [facility] Natriuretic peptide B (Bld) [Mass/Vol] 8857.0 pg/mL Critically high <=1800.0 [facility] Comment on above: RESULTS CALLED TO Dr Nathaniel Parker Potassium [Moles/Vol] 3.7 mmol/L 3.5-5.1 [facility] Sodium [Moles/Vol] 137 mmol/L 136-145 [facility] Urea nitrogen [Mass/Vol] 29.0 mg/dL High 7.0-18.0 [facility] Urea nitrogen/Creatinine [Mass ratio] 11.1 mg/mg [facility] Laboratory - Hematology and Cell countson 04-09-2024 Immature granulocytes/100 WBC (Bld) 0.4 % 0.0-0.5 [facility] Leukocytes [#/volume] correc ariana for nucleated erythrocytes in Blood by Automated counon 04-09-2024 WBC corrected for nucl RBC Auto (Bld) [#/Vol] Leukocytes [#/volume] corrected for nucleated erythrocytes in Blood by Automated coun 4.0-11.0 [facility] Lymphocytes Auto (Bld) [#/Vo l]on 04-09-2024 Lymphocytes (Bld) [#/Vol] Lymphocytes [#/volume] in Blood by Automated count 1.2-3.8 [facility] Lymphocytes/100 WBC Auto (Bl d)on 04-09-2024 Lymphocytes/100 WBC (Bld) Lymphocytes/100 leukocytes in Blood by Automated count 20.5-60.0 [facility] MCH Auto (RBC) [Entitic mass ]on 04-09-2024 MCH (RBC) [Entitic mass] MCH [Entitic mass] by Automated count 25.9-34.0 [facility] MCHC Auto (RBC) [Mass/Vol]on 04-09-2024 MCHC (RBC) [Mass/Vol] MCHC [Mass/volume] by Automated count 29.9-35.2 [facility] MCV Auto (RBC) [Entitic vol] on 04-09-2024 MCV (RBC) [Entitic vol] MCV [Entitic vol ume] by Automated count 80.0-94.0 [facility] Monocytes Auto (Bld) [#/Vol] on 04-09-2024 Monocytes (Bld) [#/Vol] Automated blood monocyte count High 0.3-0.8 [facility] Monocytes/100 WBC Auto (Bld) on 04-09-2024 Monocytes/100 WBC (Bld) Automated monocyte % 1. 7-12.0 [facility] Neutrophils Auto (Bld) [#/Vo l]on 04-09-2024 Neutrophils (Bld) [#/Vol] Neutrophils [#/volume] in Blood by Automated count 1.4-6.5 [facility] Neutrophils/100 WBC Auto (Bl d)on 04-09-2024 Neutrophils/100 WBC (Bld) Automated neutrophil % 43.0-75.0 [facility] No Panel Informationon 04-09 Troponin I High Sensitivity 896.5 pg/mL Critically high 4.0-76.1 [facility] Comment on above: RESULTS CALLED TO [...] Eosinophils # (Auto) 0.4 10 3/uL 0.0-0.7 [facility] Immature Granulocyte # (Auto) 0.04 10 3/uL High 0.00-0.03 [facility] Platelet mean volume Auto (B ld) [Entitic vol]on 04-09-2024 Platelet mean volume (Bld) [Entitic vol] Platelet mean volume [Entitic volume] in Blood by Automated count 9.5-13.5 [facility] Platelets Auto (Bld) [#/Vol] on 04-09-2024 Platelets (Bld) [#/Vol] Platelets [#/vol ume] in Blood by Automated count 150-450 [facility] Prothrombin time (PT)on 03-23 PT Coag (PPP) [Time] Prothrombin time (PT) 9.0- 11.6 [facility] RBC Auto (Bld) [#/Vol]on RBC (Bld) [#/Vol] Erythrocytes [#/volu me] in Blood by Automated count 4.70-6.10 [facility] Serum or plasma anion gap de terminationon 04-09-2024 Anion gap [Moles/Vol] Serum or plasma an ion gap determination [facility] CBC AUTO DIFFon 12-03-2021 BASO # 0.0 103/ul Normal 0.0-0.1 [facility] Comment on above: Performed By: #### C BC #### [facility] [address] [place] [address] Dr. Ludin Parra Basophils/100 WBC (Bld) 0.6 % Normal 0.2-2.0 [facility] Comment on above: Performed By: #### C BC #### [facility] [address] [place] [address] Dr. Ludin Parra EO # 0.2 103/ul Normal 0.0-0.7 [facility] Comment on above: Performed By: #### C BC #### [facility] [address] [place] [address] Dr. Ludin Parra Eosinophils/100 WBC (Bld) 3.1 % Normal 0.9-7.0 [facility] Comment on above: Performed By: #### C BC #### [facility] [address] [place] [address] Dr. Ludin Parra Erythrocyte distribution width (RBC) [Ratio] 13.1 % Normal 11.0-15.0 [facility] Comment on above: Performed By: #### C BC #### [facility] [address] [place] [address] Dr. Ludin Parra Hematocrit (Bld) [Volume fraction] 47.2 % Normal 42.0-54.0 [facility] Comment on above: Performed By: #### C BC #### [facility] [address] [place] [address] Dr. Ludin Parra Hemoglobin (Bld) [Mass/Vol] 15.8 g/dL Normal 14.0-18.0 [facility] Comment on above: Performed By: #### C BC #### [facility] [address] [place] [address] Dr. Ludin Parra IG # 0.03 10e3/ul Normal 0.00-0.03 [facility] Comment on above: Performed By: #### C BC #### [facility] [address] [place] [address] Dr. Ludin Parra IG % 0.4 % Normal 0.0-0.5 [facility] Comment on above: Performed By: #### C BC #### [facility] [address] [place] [address] Dr. Ludin Parra LYMPH # 1.6 103/ul Normal 1.2-3.8 [facility] Comment on above: Performed By: #### C BC #### [facility] [address] [place] [address] Dr. Ludin Parra Lymphocytes/100 WBC (Bld) 22.6 % Normal 20.5-60.0 [facility] Comment on above: Performed By: #### C BC #### [facility] [address] [place] [address] Dr. Ludin Parra MANUAL DIFF REQ NO Normal [facility] Comment on above: Performed By: #### C BC #### [facility] [address] [place] [address] Dr. Ludin Parra MCH (RBC) [Entitic mass] 29.6 pg Normal 25.9-34.0 [facility] Comment on above: Performed By: #### C BC #### [facility] [address] [place] [address] Dr. Ludin Parra MCHC (RBC) [Mass/Vol] 33.5 g/dL Normal 29.9-35.2 [facility] Comment on above: Performed By: #### C BC #### [facility] [address] [place] [address] Dr. Ludin Parra MCV (RBC) [Entitic vol] 88.6 fL Normal 80.0-94.0 [facility] Comment on above: Performed By: #### C BC #### [facility] [address] [address] [address] Ludin Parra MONO # 0.5 103/ul Normal 0.3-0.8 [facility] Comment on above: Performed By: #### C BC #### [facility] [address] [address] [address] Ludin Parra Monocytes/100 WBC (Bld) 7.5 % Normal 1.7-12.0 [facility] Comment on above: Performed By: #### C BC #### [facility] [address] [address] [address] Ludin Parra NEUT # 4.7 103/ul Normal 1.4-6.5 [facility] Comment on above: Performed By: #### C BC #### [facility] [address] [place] [address] Dr. Ludin Parra Neutrophils/100 WBC (Bld) 65.8 % Normal 43.0-75.0 [facility] Comment on above: Performed By: #### C BC #### [facility] [address] [place] [address] Dr. Ludin Parra Platelet mean volume (Bld) [Entitic vol] 9.0 fL Critically low 9.5-13.5 [facility] Comment on above: Performed By: #### C BC #### [facility] [address] [place] [address] Dr. Ludin Parra PLT 199 103/ul Normal 150-450 [facility] Comment on above: Performed By: #### C BC #### [facility] [address] [place] [address] Dr. Ludin Parra RBC 5.33 106/ul Normal 4.70-6.10 [facility] Comment on above: Performed By: #### C BC #### [facility] [address] [place] [address] Dr. Ludin Parra WBC 7.1 103/ul Normal 4.0-11.0 [facility] Comment on above: Performed By: #### C BC #### [facility] [address] [address] [address] Ludin Parra PROF CHEM 8 (BAS METB)on Anion gap [Moles/Vol] 9.3 mmol/L Normal [facility] Comment on above: Performed By: #### B MP #### [facility] [address] [address] [address] Ludin Parra Calcium [Mass/Vol] 8.9 mg/dL Normal 8.5-10.1 [facility] Comment on above: Performed By: #### B MP #### [facility] [address] [address] [address] Ludin Parra Chloride [Moles/Vol] 106 mmol/L Normal 98-107 [facility] Comment on above: Performed By: #### B MP #### [facility] [address] [place] [address] Dr. Ludin Parra CO2 [Moles/Vol] 29.7 mmol/L Normal 21.0-32.0 [facility] Comment on above: Performed By: #### B MP #### [facility] [address] [address] [address] Ludin Parra Creatinine [Mass/Vol] 1.83 mg/dL Critically high 0.70-1.30 [facility] Comment on above: Performed By: #### B MP #### [facility] [address] [place] [address] Dr. Ludin Parra EGFR-AF TONGAN 44 mL/min/1.73m2 Critically low >=60 [facility] Comment on above: Performed By: #### B MP #### [facility] [address] [address] [address] Ludin Parra EGFR-NON AF TONGAN 36 mL/min/1.73m2 Critically low >=60 [facility] Comment on above: Performed By: #### B MP #### [facility] [address] [address] [address] Ludin Parra Glucose [Mass/Vol] 85 mg/dL Normal 74-106 [facility] Comment on above: Performed By: #### B MP #### [facility] [address] [place], [place] [address] Dr. Ludin Parra Potassium [Moles/Vol] 4.0 mmol/L Normal 3.5-5.1 [facility] Comment on above: Performed By: #### B MP #### [facility] [address] [place], [place] [address] Dr. Ludin Parra Sodium [Moles/Vol] 141 mmol/L Normal 136-145 [facility] Comment on above: Performed By: #### B MP #### [facility] [address] [place], [place] [address] Dr. Ludin Parra Urea nitrogen [Mass/Vol] 25.0 mg/dL Critically high 7.0-18.0 [facility] Comment on above: Performed By: #### B MP #### [facility] [address] [address] [address] Ludin Parra Urea nitrogen/Creatinine [Mass ratio] 13.7 mg/mg Normal [facility] Comment on above: Performed By: #### B MP #### [facility] [address] [place], [place] [address] Dr. Ludin Parra Vital Signs Date Time Vital Sign Value Performing Clinician Facility 05-08-2024 10:040 Body height 193.04 cm Ranjan Ball DO Work Phone: [facility] 05-08-2024 10:27-0400 Body mass index (BMI) [Ratio] 26.6 kg/m2 Ranjan Ball DO Work Phone: [facility] 05-08-2024 10:27-040 Body weight 99.45 kg Ranjan Ball DO Work Phone: [facility] 05-08-2024 10:27-0400 Diastolic blood pressure 63 mm[Hg] Ranjan Ball DO Work Phone: [facility] 05-08-2024 10:270400 Heart rate 57 /min Ranjan Ball DO Work Phone: [facility] 05-08-2024 10:27-0400 Respiratory rate 12 /min Ranjan Ball DO Work Phone: [facility] 05-08-2024 10:27-0400 Systolic blood pressure 110 mm[Hg] Ranjan Ball DO Work Phone: [facility] 04-29-2024 10:15-0400 Body height 193 cm Mely Ken MD Work Phone: [facility] 04-29-2024 10:15-0400 Body mass index (BMI) [Ratio] 27.24 kg/m2 Mely Ken MD Work Phone: [facility] 04-29-2024 10:15-0400 Body weight 101.52 kg Mely Ken MD Work Phone: [facility] 04-29-2024 10:15-0400 Diastolic blood pressure 60 mm[Hg] Mely Ken MD Work Phone: [facility] 04-29-2024 10:15-0400 Heart rate 53 /min Mely Ken MD Work Phone: [facility] 04-29-2024 10:15-0400 Systolic blood pressure 114 mm[Hg] Meyl Ken MD Work Phone: [facility] 04-23-2024 15:21-0500 Body height 193.04 cm Ranjan Ball DO Work Phone: [facility] 04-23-2024 15:21-0500 Body mass index (BMI) [Ratio] 26.7 kg/m2 Ranjan Ball DO Work Phone: [facility] 04-23-2024 15:21-0500 Body temperature 97.8 [degF] Ranjan Ball DO Work Phone: [facility] 04-23-2024 15:21-0500 Body weight 99.79 kg Ranjan Ball DO Work Phone: [facility] 04-23-2024 15:21-0500 Diastolic blood pressure 79 mm[Hg] Ranjan Ball DO Work Phone: [facility] 04-23-2024 15:21-0500 Heart rate 58 /min Ranjan Ball DO Work Phone: [facility] 04-23-2024 15:21-0500 Respiratory rate 18 /min Ranjan Ball DO Work Phone: [facility] 04-23-2024 15:21-0500 SaO2% (BldA) [Mass fraction] 96 % Ranjan Ball DO Work Phone: [facility] 04-23-2024 15:21-0500 Systolic blood pressure 129 mm[Hg] Ranjan Ball DO Work Phone: [facility] 04-23-2024 10:32-0500 Body height 193.04 cm Ranjan Ball DO Work Phone: [facility] 04-23-2024 10:32-0500 Body mass index (BMI) [Ratio] 26.7 kg/m2 Ranjan Ball DO Work Phone: [facility] 04-23-2024 10:32-0500 Body weight 99.79 kg Ranjan Ball DO Work Phone: [facility] 04-23-2024 10:32-0500 Diastolic blood pressure 73 mm[Hg] Ranjan Ball DO Work Phone: [facility] 04-23-2024 10:32-0500 Heart rate 53 /min Ranjan Ball DO Work Phone: [facility] 04-23-2024 10:32-0500 Systolic blood pressure 127 mm[Hg] Ranjan Ball DO Work Phone: [facility] 04-18-2024 11:50-0500 Diastolic blood pressure 63 mm[Hg] Ranjan Ball DO Work Phone: [facility] 04-18-2024 11:50-0500 Heart rate 61 /min Ranjan Ball DO Work Phone: [facility] 04-18-2024 11:50-0500 Respiratory rate 17 /min Ranjan Ball DO Work Phone: [facility] 04-18-2024 11:50-0500 SaO2% (BldA) [Mass fraction] 93 % Ranjan Ball DO Work Phone: [facility] 04-18-2024 11:50-0500 Systolic blood pressure 104 mm[Hg] Ranjan Ball DO Work Phone: [facility] 04-18-2024 08:00-0500 Body temperature 97.8 [degF] Ranjan Ball DO Work Phone: [facility] 04-18-2024 06:00-0500 Body weight 110.3 kg Ranjan Ball DO Work Phone: [facility] 04-17-2024 16:02-0500 Body height 193.04 cm Ranjan Ball DO Work Phone: [facility] 04-16-2024 16:00-0500 Inhaled oxygen flow rate 2 L/min Ranjan Ball DO Work Phone: [facility] 04-12-2024 04:00-0500 Inhaled oxygen concentration 50 % Ranjan Ball DO Work Phone: [facility] 04-09-2024 14:41-0500 Body height 193.04 cm [facility] 04-09-2024 14:41-0500 Body mass index (BMI) [Ratio] 28.3 kg/m2 [facility] 04-09-2024 14:41-0500 Body weight 105.4 kg [facility] 04-09-2024 14:41-0500 Diastolic blood pressure 90 mm[Hg] [facility] 04-09-2024 14:41-0500 Heart rate 144 /min [facility] 04-09-2024 14:41-0500 Respiratory rate 16 /min [facility] 04-09-2024 14:41-0500 Systolic blood pressure 125 mm[Hg] [facility] 11-14-2023 09:58-0400 Body height 193.04 cm [facility] 11-14-2023 09:58-0400 Body mass index (BMI) [Ratio] 27.3 kg/m2 [facility] 11-14-2023 09:58-0400 Body weight 101.66 kg [facility] 11-14-2023 09:58-0400 Diastolic blood pressure 84 mm[Hg] [facility] 11-14-2023 09:58-0400 Heart rate 83 /min [facility] 11-14-2023 09:58-0400 Respiratory rate 14 /min [facility] 11-14-2023 09:58-0400 SaO2% (BldA) [Mass fraction] 97 % [facility] 11-14-2023 09:58-0400 Systolic blood pressure 138 mm[Hg] [facility] 06-27-2023 10:58-0400 Body height 193.04 cm [facility] 06-27-2023 10:58-0400 Body mass index (BMI) [Ratio] 27.5 kg/m2 [facility] 06-27-2023 10:58-0400 Body weight 102.68 kg [facility] 06-27-2023 10:58-0400 Diastolic blood pressure 84 mm[Hg] [facility] 06-27-2023 10:58-0400 Heart rate 91 /min [facility] 06-27-2023 10:58-0400 Respiratory rate 12 /min [facility] 06-27-2023 10:58-0400 Systolic blood pressure 133 mm[Hg] [facility] 02-10-2023 08:30-0500 Body height 193.04 cm Ranjan Ball Other [employer] [facility] [employer] Other 02-10-2023 08:30-0500 Body mass index (BMI) [Ratio] 27.87 kg/m2 Ranjan Ball Other [facility] Other 02-10-2023 08:30-0500 Body weight 103.87 kg Ranjan Ball Other [facility] Other 02-10-2023 08:30-0500 Diastolic blood pressure 88 mm[Hg] Ranjan Ball Other [facility] Other 02-10-2023 08:30-0500 Respiratory rate 12 /min Ranjan Ball Other [facility] Other 02-10-2023 08:30-0500 Systolic blood pressure 136 mm[Hg] Ranjan Ball Other [facility] Other 10-03-2022 15:45-0400 Body height 193.04 cm Ranjan Ball Other [facility] Other 10-03-2022 15:45-0400 Body mass index (BMI) [Ratio] 26.14 kg/m2 Ranjan Ball Other [facility] Other 10-03-2022 15:45-0400 Body weight 97.43 kg Ranjan Ball Other [facility] Other 10-03-2022 15:45-0400 Diastolic blood pressure 96 mm[Hg] Ranjan Ball Other [facility] Other 10-03-2022 15:45-0400 Respiratory rate 12 /min Ranjan Ball Other [facility] Other 10-03-2022 15:45-0400 Systolic blood pressure 159 mm[Hg] Ranjan Ball Other [facility] Other 07-19-2022 15:00-0400 Body height 193.04 cm Ranjan Ball Other [facility] Other 07-19-2022 15:00-0400 Body mass index (BMI) [Ratio] 26.63 kg/m2 Ranjan Ball Other [facility] Other 07-19-2022 15:00-0400 Body weight 99.25 kg Ranjan Lomas Other [facility] Other 07-19-2022 15:00-0400 Diastolic blood pressure 81 mm[Hg] Ranjan Lomas Other [facility] Other 07-19-2022 15:00-0400 Respiratory rate 12 /min Ranjan Lomas Other [facility] Other 07-19-2022 15:00-0400 Systolic blood pressure 155 mm[Hg] Ranjan [employer] Other [place] [employer] Other Encounters Encounter Date Encounter Type Care Provider Facility Start: 05-08-2024 End: 05-08-2024 ambulatory Ranjan [employer] Work Phone: [facility] Work Phone: Start: 05-08-2024 End: 05-08-2024 Patient encounter procedure Ranjan Lomas DO Work Phone: [facility] [employer] [facility] Work Phone: Start: 05-07-2024 Non-patient / Non-visit Oswald in [employer] Work Phone: [facility] [employer] Work Phone: Start: 04-29-2024 End: 04-29-2024 Transitional care manage srvc 14 day discharge Mely Ken MD Work Phone: [facility] Comment on above: Cardiomyopathy, isch emic (Primary Dx); Tachycardia; Persistent atrial fibrillation (Multi); High risk medication use; Abnormal stress test; Mixed hyperlipidemia; Essential hypertension; 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 IV, 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); BMI 27.0-27.9,adult Start: 04-23-2024 End: 04-23-2024 ambulatory Ranjan [employer] Work Phone: [facility] Work Phone: Start: 04-23-2024 End: 04-23-2024 Patient encounter procedure Ranjan Ball DO Work Phone: [facility] Work Phone: Start: 04-23-2024 End: 04-23-2024 ambulatory Ranjan Ball DO Work Phone: [facility] Work Phone: Start: 04-23-2024 End: 04-23-2024 Patient encounter procedure Ranjan Ball DO Work Phone: [facility] Work Phone: Start: 04-22-2024 Non-patient / Non-visit Benjam in Ball DO Work Phone: [facility] Work Phone: Start: 04-16-2024 Non-patient / Non-visit Benjam in Ball DO Work Phone: [facility] Work Phone: Start: 04-13-2024 Non-patient / Non-visit Benjam in Ball DO Work Phone: [facility] Work Phone: Start: 04-12-2024 Non-patient / Non-visit Benjam in Ball DO Work Phone: [facility] Work Phone: Start: 04-10-2024 Non-patient / Non-visit Benjam in Ball DO Work Phone: [facility] Work Phone: Start: 04-10-2024 End: 04-18-2024 Evaluation and management of inpatient Ranjan Ball DO Work Phone: [facility] [place] [facility] Work Phone: Start: 04-09-2024 End: 04-09-2024 ambulatory [facility] Work Phone: Start: 04-09-2024 End: 04-09-2024 Patient encounter procedure [facility] Work Phone: Start: 11-14-2023 End: 11-14-2023 ambulatory [facility] Work Phone: Start: 11-14-2023 End: 11-14-2023 Patient encounter procedure [facility] Work Phone: Start: 06-27-2023 End: 06-27-2023 ambulatory [facility] Work Phone: Start: 06-27-2023 End: 06-27-2023 Patient encounter procedure [facility] Work Phone: Start: 02-10-2023 End: 02-10-2023 ambulatory Ranjan Ball Other [facility] Other Start: 02-10-2023 Office outpatient vi sit 15 minutes Ranjan Ball [facility] Start: 11-07-2022 End: 11-07-2022 ambulatory Ranjan Ball Other [facility] Other Start: 11-07-2022 Telephone encounter Ranjan [facility] Start: 10-11-2022 End: 10-11-2022 ambulatory Ranjan Ball Other [facility] Other Start: 10-11-2022 Telephone encounter Ranjan [facility] Start: 10-03-2022 End: 10-03-2022 ambulatory Ranjan Ball Other [facility] Other Start: 10-03-2022 Office outpatient vi sit 15 minutes Ranjan Ball [facility] Start: 07-19-2022 End: 07-19-2022 ambulatory Ranjan Ball Other [facility] Other Start: 05-30-2023 Office outpatient vi sit 15 minutes Ranjan Ball [facility] Start: 12-03-2021 End: [...] Comment on above: Performed By: #### P [facility] #### [facility] [address] [place] [address] Dr. Ludin Parra Start: 11-17-2015 Hyperlipidemia screening Ranjan Lomas Other Start: 11-17-2015 Screening for malign ant neoplasm of colon Ranjan Lomas Other Screening for malign ant neoplasm of prostate Ranjan Lomas Other Plan of Treatment Date Care Activity Detail Author Start: 10-30-2024 End: 10-30-2024 Patient encounter procedure 10/30/2024 2:00 PM EDT Office Visit [facility] [address] [id number] Mely Ken MD [address] [facility] [address] [place] [address] [facility] Start: 04-29-2024 End: 04-29-2025 Aspartate aminotransferase [Enzymatic activity/volume] in Serum or Plasma by With P-5'-P Aspartate Aminotransferase Lab Routine Persistent atrial fibrillation (Multi) High risk medication use Expected: 04/29/2024 (Approximate), Expires: 04/29/2025 [facility] Service Area Work Phone: Comment on above: Expected: 04/29/2024 (Approximate), Expi res: 04/29/2025 Start: 04-29-2024 End: 04-29-2025 Basic metabolic 2000 panel - Serum or Plasma Basic Metabolic Panel Lab Routine Persistent atrial fibrillation (Multi) High risk medication use Expected: 04/29/2024 (Approximate), Expires: 04/29/2025 [facility] Work Phone: Comment on above: Expected: 04/29/2024 (Approximate), Expi res: 04/29/2025 Start: 04-29-2024 End: 04-29-2025 Complete Pulmonary Function Test (Spirometry/DLCO/Lung Volumes) Complete Pulmonary Function Test (Spirometry/DLCO/Lung Volumes) PFT Routine Persistent atrial fibrillation (Multi) High risk medication use Expected: 04/29/2024 (Approximate), Expires: 04/29/2025 [facility] Work Phone: Comment on above: Expected: 04/29/2024 (Approximate), Expi res: 04/29/2025 Start: 04-29-2024 End: 04-29-2025 Thyrotropin [Units/volume] in Serum or Plasma Thyroid Stimulating Hormone Lab Routine Persistent atrial fibrillation (Multi) High risk medication use Expected: 04/29/2024 (Approximate), Expires: 04/29/2025 [facility] Work Phone: Comment on above: Expected: 04/29/2024 (Approximate), Expi res: 04/29/2025 Start: 04-29-2024 End: 04-29-2025 XR Chest 2 Views XR chest 2 views Imaging Routine Persistent atrial fibrillation (Multi) High risk medication use Expected: 04/29/2024 (Approximate), Expires: 04/29/2025 [facility] Work Phone: Comment on above: Expected: 04/29/2024 (Approximate), Expi res: 04/29/2025 Start: 04-18-2024 [facility] Start: 04-16-2024 Referral to rehabilitation physician [facility] Start: 04-12-[address] hog counter [facility] Start: 04-10-2024 Hospital admission [facility] Start: 04-10-2024 Referral to leading firefighter [facility] Start: 10-22-2023 COVID-19 Vaccine ( season) COVID-19 Vaccine ( season) [facility] Start: 10-22-2023 Influenza vaccination Influenza Vaccine (#1) [facility] Start: 01-10-2019 RSV High Risk: (Elderly (60+) or Population) (1 - 1-dose 75+ series) RSV High Risk: (Elderly (60+) or Population) (1 - 1-dose 75+ series) [facility] Start: 01-10-1994 Zoster Vaccines (1 of 2) Zoster Vaccines (1 of 2) [facility] Start: 01-10-1966 DTaP/Tdap/Td Vaccines (1 - Tdap) DTaP/Tdap/Td Vaccines (1 - Tdap) [facility] Start: 01-10-1963 Pneumococcal vaccination Pneumococcal Vaccine (1 of 2 - PCV) [facility] Start: 01-10-1962 Diabetes mellitus screening Diabetes Screening [facility] Start: 1945 Lipid panel Lipid Panel [facility] Start: 1945 Medicare Annual Wellness Visit Medicare Annual Wellness Visit (AWV) [facility] Start: 1945 Thyroid stimulating hormone measurement TSH Level [facility] Patient Education Know your Meds [facility] Work Phone: Patient referral [facility] Work Phone: Renal function 2000 panel - Serum or Plasma [facility] Immunizations Immunization Date Immunization Notes Care Provider Jonny jenkins 04-29-2020 COVID-19 Vaccine Isai ssen - Documentation Purposes Only Ranjan Lomas Other [facility] 11-10-2016 diphtheria, tetanus toxoids and acellular pertussis vaccine, unspecified formulation Ranjan Lomas Other [facility] Payers Date Payer Category Payer Private Health Insurance [id number] 2024 Self-pay 2008 Medicare MEDICARE RAILMONI D [id number] 1959 Medicare [id number] 1945 Unknown [id number] Medicare Medicare Outpatient [id number] Unknown [place] BC/BS [id number] Unknown [id number] Social History Date Type Detail Facility Start: 04-29-2024 Sex Assigned At N [facility] Factor 14 Other Start: 02-09-2023 End: 04-23-2024 Tobacco smoking status NHIS Never smoked tobacco (finding) [facility] Start: 1945 Sex Assigned At [facility] Start: 04-09-2024 End: 05-08-2024 Sex Male (finding) [facility] Start: 04-15-2024 End: 04-17-2024 SDOH Follow up SDOH Follow up [facility] Work Phone: Start: 04-29-2024 Tobacco use and exposure Smokeless tobacco non-user [facility] Work Phone: Start: 04-29-2024 Alcoholic beverage intake Ex-drinker (finding) [facility] Work Phone: Start: 04-29-2024 History of Social function [facility] Work Phone: Start: 04-29-2024 Alcohol Comment maybe once monthly [facility] Work Phone: Start: 1945 Sex assigned at Not on file [facility] Work Phone: Start: 04-19-2024 End: 04-29-2024 Exposure to SARS-CoV-2 (event) Not sure [facility] Goals Date Patient Goal Desired Activity /State Functional Status Date Assessment Result Facility 04-18-2024 Functional status Patient at Baseline [facility] Work Phone: Mental Status Date Assessment Result Facility 04-18-2024 Cognitive function Cognitive Sta tus Patient at Baseline [facility] Work Phone: Clinical Notes 07-19-2022 to 04-29-2024 [...] Scribe Attestation By signing my name below, Lashay Gamble LPN , Scribe attest that this documentation [...] discussion and plan. documented in this encounter [facility] Work Phone: 04-29-2024 Instructions Lashay Andersen LPN [...] be sent through Care Everywhere.Heart Healthy Diet (Colombian)documented in this encounter [facility] Work Phone: 04-18-2024 Progress note Note Date/Time April 18, 2024 12:05pm [facility] [address] [place] [address] Nephrology Progress Note Signed Patient: Corwin Muller MR#: [id number] : 1945 Acct:[id number] Age/Sex: 79 / M Adm Date: 5 Loc: 4P Room: [address] [place] [address] Type: ADM IN Attending Dr: Jn Yanes [...] that time. He was evaluated in the [facility] with EKG showing SVT and inverted [...] has no edema. Patient was seen by leading firefighter and diltiazem was completely stopped that hopefully [...] Tablet) 200 mg PO TID [facility] Stop: 04/16/25 21:59 Last Admin: 04/18/24 08:53 Dose: 200 mg Apixaban (Apixaban 2.5 Mg Tablet) 2.5 mg PO BID [facility] Stop: 04/12/25 20:59 Last Admin: 04/18/24 08:53 Dose: 2.5 mg Aspirin (Aspirin 81 Mg Tablet.Dr) 81 mg PO DAILY [facility] Stop: 04/11/25 08:59 Last Admin: 04/18/24 08:53 Dose: 81 mg Docusate Sodium (Docusate 100 Mg Capsule) 200 mg PO BID PRN PRN Reason: Constipation Stop: 04/15/25 11:55 Furosemide (Furosemide 40 Mg Tablet) 40 mg PO BID@0800,1600 [facility] Stop: 04/12/25 15:59 Last Admin: 04/17/24 09:34 Dose: 40 mg Hydralazine HCl (Hydralazine 25 Mg Tablet) 25 mg PO BID [facility] Stop: 04/12/25 20:59 Last Admin: 04/18/24 08:53 [...] Tab.Er.24h) 50 mg PO BID [facility] Stop: 04/13/25 20:59 Last Admin: 04/18/24 08:53 Dose: 50 mg Morphine Sulfate (Morphine Sulfate 2 Mg/Ml Vial) 2 mg IV-PUSH Q4H PRN PRN Reason: Pain Scale 8 - 10 Ondansetron HCl (Ondansetron 4 Mg/2 Ml Vial) 4 mg IV-PUSH Q6H PRN PRN Reason: Nausea And Vomiting Stop: 04/10/25 04:04 Potassium Chloride (Potassium Chloride Er 20 Meq Tab.Er.Prt) 20 meq PO DAILY [facility] Stop: 04/13/25 08:59 Last Admin: 04/18/24 08:53 Dose: 20 meq Sennosides (Sennosides Syrup 8.8 Mg/5 Ml Udc) 17.6 mg PO HS [facility] Stop: 04/15/25 21:59 Last Admin: 04/17/24 21:07 Dose: Not Given Sodium Chloride (Sodium Chloride 0.9 % 10 Ml Syringe) 0 ml IV-PUSH QSHIFT [facility] Stop: 04/10/25 05:59 Last Admin: 04/18/24 06:09 Dose: Not Given Sodium Chloride (Sodium Chloride 0.9 % 10 Ml Syringe) 0 ml IV-PUSH PRN PRN PRN Reason: Flush Stop: 04/15/25 13:36 Last Admin: 04/15/24 14:00 Dose: 30 ml Spironolactone (Spironolactone 12.5 Mg Tablet) 12.5 mg PO DAILY [facility] Stop: 04/12/25 19:59 Last Admin: 04/18/24 08:53 [...] infarction): Assessment/Problem Details: Patient was admitted for AR and his echocardiogram showed EF 35 to [...] <Electronically signed by MD Felicia Aguilar> 04/18/24 1205 [facility] Work Phone: 1(512) [phone] Progress note Author Jn Yanes [facility] Note Date/Time April 18, 2024 11:56am [facility] [address] [place] [address] Hospitalist Progress Note Signed with Addenda Patient: Corwin uMller MR#: [id number] : 1945 Acct:[id number] Age/Sex: 79 / M Adm Date: 5 Loc: Room: [address] [place] [address] Type: ADM IN Attending Dr: Jn Yanes [...] <Electronically signed by Jn Yanes MD> 04/17/242104 [facility] Work Phone: 1(231) 774-399802-27-2025 Progress note Author Mely Ken [facility] Note Date/Time April 18, 2024 10:26am [facility] [address] [place] [address] Cardiology Progress Note Signed Patient: Corwin Muller MR#: [id number] : 1945 Acct:[id number] Age/Sex: 79 / M Adm Date: 5 Loc: Room: [address] [place] [address] Type: ADM IN Attending Dr: Jn Yanes [...] <Electronically signed by MD Mely Ken> 04/18/[address] [place] [address] Work Phone: 1([phone]) 165-488602-27-2025 [place] [id number] Nephrology Progress Note Signed Patient: Corwin Muller MR#: [id number] : 1945 Acct:[id number] Age/Sex: 79 / M Adm Date: 5 Loc: Room: [address] [place] [address] Type: ADM IN Attending Dr: Jn Yanes [...] that time. He was evaluated in the [facility] with EKG showingSVT and inverted T [...] has no edema. Patient was seen by leading firefighter and diltiazem was completely stopped that hopefully [...] Tablet) 200 mg PO TID [facility] Stop: 04/16/25 21:59 Last Admin: 04/18/24 08:53 Dose: 200 mg Apixaban (Apixaban 2.5 Mg Tablet) 2.5 mg PO BID [facility] Stop: 04/12/25 20:59 Last Admin: 04/18/24 08:53 Dose: 2.5 mg Aspirin (Aspirin 81 Mg Tablet.) 81 mg PO DAILY [facility] Stop: 04/11/25 08:59 Last Admin: 04/18/24 08:53 Dose: 81 mg Docusate Sodium (Docusate 100 Mg Capsule) 200 mg PO BID PRN PRN Reason: Constipation Stop: 04/15/25 11:55 Furosemide (Furosemide 40 Mg Tablet) 40 mg PO BID@0800,1600 [facility] Stop: 04/12/25 15:59 Last Admin: 04/17/24 09:34 Dose: 40 mg Hydralazine HCl (Hydralazine 25 Mg Tablet) 25 mg PO BID [facility] Stop: 04/12/25 20:59 Last Admin: 04/18/24 08:53 Dose: 25 mg Isosorbide Mononitrate (Isosorbide Mononitrate 24hr Er 30 Mg Tab.Er.24h) 30 mg PO DAILY.6A [facility] Stop: 04/13/25 05:59 Last Admin: 04/18/24 06:07 Dose: 30 mg Melatonin (Melatonin 5 Mg Tablet) 5 mg PO QHS PRN PRN Reason: sleep Stop: 04/18/25 21:59 Last Admin: 04/18/24 00:34 Dose: 5 mg Metoprolol Succinate (Metoprolol Succinate 50 Mg Tab.Er.24h) 50 mg PO BID [facility] Stop: 04/13/25 20:59 Last Admin: 04/18/24 08:53 Dose: 50 mg Morphine Sulfate (Morphine Sulfate 2 Mg/Ml Vial) 2 mg IV-PUSH Q4H PRN PRN Reason: Pain Scale 8 - 10 Ondansetron HCl (Ondansetron 4 Mg/2 Ml Vial) 4 mg IV-PUSH Q6H PRN PRN Reason: Nausea And Vomiting Stop: 04/10/25 04:04 Potassium Chloride (Potassium Chloride Er 20 Meq Tab.Er.Prt) 20 meq PO DAILY [facility] Stop: 04/13/25 08:59 Last Admin: 04/18/24 08:53 Dose: 20 meq Sennosides (Sennosides Syrup 8.8 Mg/5 Ml Udc) 17.6 mg PO HS [facility] Stop: 04/15/25 21:59 Last Admin: 04/17/24 21:07 Dose: Not Given Sodium Chloride (Sodium Chloride 0.9 % 10 Ml Syringe) 0 ml IV-PUSH QSHIFT [facility] Stop: 04/10/25 05:59 Last Admin: 04/18/24 06:09 [...] infarction): Assessment/Problem Details: Patient was admitted for AR and his echocardiogram showed EF 35 to [...] MD 04/18/24 1158 Signed By: 04/18/24 1205 [facility]02-27-20[place] [address] Hospitalist Progress Note Signed with Addenda Patient: Corwin Muller MR#: [id number] : 1945 Acct:[id number] Age/Sex: 79 / M Adm Date: 5 Loc: Room: 7A2323-6 Type: ADM IN Attending Dr: Jn Yanes [...] Jn Yanes MD 04/17/24 1402 Signed By: 04/17/242104 [facility]02-27-2025 [place] [address] Cardiology Progress Note Signed Patient: Corwin Muller MR#: [id number] : 1945 Acct:[id number] Age/Sex: 79 / M Adm Date: 5 Loc: Room: [address] [place] [address] Type: ADM IN Attending Dr: Jn Yanes [...] Ken MD 04/18/24 1024 Signed By: 04/18/[address] [place], [place] 4624002-26-2025 Progress note [facility] Note Date/Time April 17, 2024 2:35pm [facility] [address] [place] [address] Nephrology Progress Note Signed Patient: Corwin Muller MR#: [id number] : 1945 Acct:[id number] Age/Sex: 79 / M Adm Date: 5 Loc: Room: 7W9198-4 Type: ADM IN Attending Dr: Jn Yanes [...] that time. He was evaluated in the [facility] with EKG showing SVT and inverted [...] was decreased to 240 mg by his leading firefighter with the plan. Patient is lying if [...] Tablet) 200 mg PO TID [facility] Stop: 04/16/25 21:59 Last Admin: 04/17/24 09:34 Dose: 200 mg Apixaban (Apixaban 2.5 Mg Tablet) 2.5 mg PO BID [facility] Stop: 04/12/25 20:59 Last Admin: 04/17/24 09:34 Dose: 2.5 mg Aspirin (Aspirin 81 Mg Tablet.Dr) 81 mg PO DAILY [facility] Stop: 04/11/25 08:59 Last Admin: 04/17/24 09:34 Dose: 81 mg Diltiazem HCl (Diltiazem Cd.24hr 240 Mg Cap.Er.24h) 240 mg PO DAILY [facility] Stop: 04/17/25 08:59 Last Admin: 04/17/24 09:34 Dose: 240 mg Docusate Sodium (Docusate 100 Mg Capsule) 200 mg PO BID PRN PRN Reason: Constipation Stop: 04/15/25 11:55 Furosemide (Furosemide 40 Mg Tablet) 40 mg PO BID@0800,1600 [facility] Stop: 04/12/25 15:59 Last Admin: 04/17/24 09:34 Dose: 40 mg Hydralazine HCl (Hydralazine 25 Mg Tablet) 25 mg PO BID [facility] Stop: 04/12/25 20:59 Last Admin: 04/17/24 09:34 [...] Udc) 17.6 mg PO HS [facility] Stop: 04/15/25 21:59 Last Admin: 04/17/24 07:25 [...] Tablet) 12.5 mg PO DAILY [facility] Stop: 04/12/25 19:59 Last Admin: 04/17/24 09:34 [...] infarction): Assessment/Problem Details: Patient was admitted for AR and his echocardiogram showed EF 35 to [...] signed by MD Felicia Aguilar> 04/17/24 1435 [facility] Work Phone: 1(427) 506-897102-26-2025 [place] [address] Nephrology Progress Note Signed Patient: Corwin Muller MR#: [id number] : 1945 Acct:[id number] Age/Sex: 79 / M Adm Date: 5 Loc: Room: 0U3680-5 Type: ADM IN Attending Dr: Jn Yanes [...] that time. He was evaluated in the [facility] with EKG showingSVT and inverted T [...] Tablet) 200 mg PO TID [facility] Stop: 04/16/25 21:59 Last Admin: 04/17/24 09:34 Dose: 200 mg Apixaban (Apixaban 2.5 Mg Tablet) 2.5 mg PO BID [facility] Stop: 04/12/25 20:59 Last Admin: 04/17/24 09:34 Dose: 2.5 mg Aspirin (Aspirin 81 Mg Tablet.Dr) 81 mg PO DAILY [facility] Stop: 04/11/25 08:59 Last Admin: 04/17/24 09:34 Dose: 81 mg Diltiazem HCl (Diltiazem Cd.24hr 240 Mg Cap.Er.24h) 240 mg PO DAILY [facility] Stop: 04/17/25 08:59 Last Admin: 04/17/24 09:34 Dose: 240 mg Docusate Sodium (Docusate 100 Mg Capsule) 200 mg PO BID PRN PRN Reason: Constipation Stop: 04/15/25 11:55 Furosemide (Furosemide 40 Mg Tablet) 40 mg PO BID@0800,1600 [facility] Stop: 04/12/25 15:59 Last Admin: 04/17/24 09:34 Dose: 40 mg Hydralazine HCl (Hydralazine 25 Mg Tablet) 25 mg PO BID [facility] Stop: 04/12/25 20:59 Last Admin: 04/17/24 09:34 Dose: 25 mg Isosorbide Mononitrate (Isosorbide Mononitrate 24hr Er 30 Mg Tab.Er.24h) 30 mg PO DAILY.6A [facility] Stop: 04/13/25 05:59 Last Admin: 02/26/25 05:10 Dose: 30 mg Metoprolol Succinate (Metoprolol [...] infarction): Assessment/Problem Details: Patient was admitted for AR and his echocardiogram showed EF 35 to [...] Felicia Aguilar MD 04/17/241425 Signed By: 04/17/24 143 [facility]02-26-2025 Progress note Author Mely Ken [facility] Note Date/Time April 17, 2024 12:13pm [facility] [address] [place] [address] Cardiology Progress Note Signed Patient: Corwin Muller MR#: [id number] : 1945 Acct:[id number] Age/Sex: 79 / M Adm Date: 5 Loc: Room: [address] [place] [address] Type: ADM IN Attending Dr: Jn Yanes [...] signed by MD Mely Ken> 04/17/24 1213 [facility] Work Phone: 1(851) 114-315102-26-2025 [place] [address] Cardiology Progress Note Signed Patient: Corwin Muller MR#: [id number] : 1945 Acct:[id number] Age/Sex: 79 / M Adm Date: 5 Loc: Room: [address] [place] [address] Type: ADM IN Attending Dr: Jn Yanes [...] Ken MD 04/17/241209 Signed By: 04/17/24 1213 [facility]02-25-2025 Progress note Author Felicia Aguilar [facility] Note Date/Time April 16, 2024 4:47pm [facility] [address] [place] [address] Nephrology Progress Note Signed Patient: Corwin Muller MR#: [id number] : 1945 Acct:[id number] Age/Sex: 79 / M Adm Date: 5 Loc: Room: [address] [place] [address] Type: ADM IN Attending Dr: Jersey Bess [...] that time. He was evaluated in the [facility] with EKG showing SVT and inverted [...] 40 mg twice a day per Dr. Eliana. He still on spironolactone. Renal function stabilized [...] Tablet) 200 mg PO TID [facility] Stop: 04/16/25 21:59 Apixaban (Apixaban 2.5 Mg Tablet) 2.5 mg PO BID [facility] Stop: 04/12/25 20:59 Last Admin: 04/16/24 08:56 Dose: 2.5 mg Aspirin (Aspirin 81 Mg Tablet.Dr) 81 mg PO DAILY [facility] Stop: 04/11/25 08:59 Last Admin: 04/16/24 08:56 Dose: 81 mg Diltiazem HCl (Diltiazem Cd.24hr 240 Mg Cap.Er.24h) 240 mg PO DAILY [facility] Stop: 04/17/25 08:59 Docusate Sodium (Docusate 100 Mg Capsule) 200 mg PO BID PRN PRN Reason: Constipation Stop: 04/15/25 11:55 Furosemide (Furosemide 40 Mg Tablet) 40 mg PO BID@0800,1600 [facility] Stop: 04/12/25 15:59 Last Admin: 04/16/24 15:48 Dose: 40 mg Hydralazine HCl (Hydralazine 25 Mg Tablet) 25 mg PO BID [facility] Stop: 04/12/25 20:59 Last Admin: 04/16/24 08:56 Dose: 25 mg Isosorbide Mononitrate (Isosorbide Mononitrate 24hr Er 30 Mg Tab.Er.24h) 30 mg PO DAILY.6A [facility] Stop: 04/13/25 05:59 Last Admin: 04/16/24 06:28 [...] Tab.Er.Prt) 20 meq PO DAILY [facility] Stop: 04/13/25 08:59 Last Admin: 04/16/24 08:56 Dose: 20 meq Sennosides (Sennosides Syrup 8.8 Mg/5 Ml Udc) 17.6 mg PO HS [facility] Stop: 04/15/25 21:59 Last Admin: 04/15/24 22:35 [...] infarction): Assessment/Problem Details: Patient was admitted for AR and his echocardiogram showed EF 35 to [...] was discussed with the patient by his leading firefighter. Ideally he should have invasive evaluation however [...] rehab. Documented By: Felicia Aguilar MD 04/16/24 1218 Signed By: <Electronically signed by MD Felicia Agiular> 04/16/24 1647 [facility] Work Phone: 1(603) 977-844302-25-2025 Consult note Author Luis Patel [facility] Note Date/Time April 16, 2024 2:53pm [facility] [address] [place] [address] Physiatry (Rehab) Consult Note Signed Patient: Corwin Muller MR#: [id number] : 1945 Acct:[id number] Age/Sex: 79 / M Adm Date: 5 Loc: Room: 4B1118-3 Type: ADM IN Attending Dr: Jersey Bess [...] negative unless noted below or in HPI [facility] Medical History Atrial tachycardia Lumbar spondylosis Hyperlipidemia type II Primary osteoarthritis of right knee Primary osteoarthritis of left knee Knee pain Hypertension Elevated cholesterol Surgical History H/O hernia repair Family History Father 67 yrs Aortic aneurysm and dissection Mother 90 yrs History of stroke [facility] Problem: Diagnosed with Stroke Stroke Brother [...] chart, including current orders, allied health and career development consultant notes, labs/imaging and performed whatley elements of exam and I formulated the plan of care and facilitated the medical decision making. I completed a substantive portion of this encounter, the medical decision making portion of this note in its entirety, including Allied health note review, nursing note review, career development consultant note review, discussion with nursing and case management, and more than 50% of my time was spent on counseling and coordination of care, time spent 35 minutes Documented By: Luis Patel MD 04/16/24 1402 Signed By: <Electronically signed by Luis Patel MD> 04/16/24 7078 [facility] Work Phone: 1(454) 670-503502-25-2025 [place] [address] Nephrology Progress Note Signed Patient: Corwin Muller MR#: [id number] : 1945 Acct:[id number] Age/Sex: 79 / M Adm Date: 5 Loc: 4 Room: 1I4381-3 Type: ADM IN Attending Dr: Jersey Bess [...] that time. He was evaluated in the [facility] with EKG showingSVT and inverted T [...] Tablet) 200 mg PO TID [facility] Stop: 04/16/25 21:59 Apixaban (Apixaban 2.5 Mg Tablet) 2.5 mg PO BID [facility] Stop: 04/12/25 20:59 Last Admin: 04/16/24 08:56 Dose: 2.5 mg Aspirin (Aspirin 81 Mg Tablet.) 81 mg PO DAILY [facility] Stop: 04/11/25 08:59 Last Admin: 04/16/24 08:56 Dose: 81 mg Diltiazem HCl (Diltiazem Cd.24hr 240 Mg Cap.Er.24h) 240 mg PO DAILY [facility] Stop: 04/17/25 08:59 Docusate Sodium (Docusate 100 Mg Capsule) 200 mg PO BID PRN PRN Reason: Constipation Stop: 04/15/25 11:55 Furosemide (Furosemide 40 Mg Tablet) 40 mg PO BID@0800,1600 [facility] Stop: 04/12/25 15:59 Last Admin: 04/16/24 15:48 [...] Udc) 17.6 mg PO HS [facility] Stop: 04/15/25 21:59 Last Admin: 04/15/24 22:35 [...] Tablet) 12.5 mg PO DAILY [facility] Stop: 04/12/25 19:59 Last Admin: 04/16/24 08:56 [...] infarction): Assessment/Problem Details: Patient was admitted for AR and his echocardiogram showed EF 35 to [...] was discussed with the patient by his leading firefighter. Ideally he should have invasive evaluation however [...] By: Felicia Aguilar MD 04/16/241637 Signed By: 04/16/24 164 [facility]02-25-2025 Progress note Author Jersey Bess [facility] Note Date/Time April 16, 2024 1:58pm [facility] [address] [place] [address] Hospitalist Progress Note Signed Patient: Corwin Muller MR#: [id number] : 1945 Acct:[id number] Age/Sex: 79 / M Adm Date: 5 Loc: Room: [address] [place] [address] Type: ADM IN Attending Dr: Jersey Bess [...] <Electronically signed by Jersey Bess MD> 04/16/24 8111 [facility] Work Phone: 1(466) 138-614502-25-2025 [place] [address] Physiatry (Rehab) Consult Note Signed Patient: Corwin Muller MR#: [id number] : 1945 Acct:[id number] Age/Sex: 79 / M Adm Date: 5 Loc: Room: [address] [place] [address] Type: ADM IN Attending Dr: Jersey Bess [...] negative unless noted below or in HPI [facility] Medical History Atrial tachycardia Lumbar spondylosis Hyperlipidemia [...] chart, including current orders, allied health and career development consultant notes, labs/imaging and performed whatley elements of exam and I formulated the plan of care and facilitated the medical decision making. I completed a substantive portion of this encounter, the medical decision making portion of this note in its entirety, including Allied health note review, nursing note review, career development consultant note review, discussion with nursing and case management, and more than 50% of my time was spent on counseling and coordination of care, time spent 35 minutes Documented By: Luis Patel MD 04/16/24 1401 Signed By: 04/16/24 1453 [facility]02-25-20[place] [address] Hospitalist Progress Note Signed Patient: Corwin Muller MR#: [id number] : 1945 Acct:[id number] Age/Sex: 79 / M Adm Date: 5 Loc: Room: [address] [place] [address] Type: ADM IN Attending Dr: Jersey Bess [...] 04/16/24 13 56 Signed By: 04/16/24 1358 [facility]02-25-2025 Progress note Author Mely Ken [facility] Note Date/Time April 16, 2024 11:27am [facility] [address] [place] [address] Cardiology Progress Note Signed Patient: Corwin Muller MR#: [id number] : 1945 Acct:[id number] Age/Sex: 79 / M Adm Date: 5 Loc: Room: [address] [place] [address] Type: ADM IN Attending Dr: Jersey Bess [...] signed by MD Mely Ken> 04/16/24 1127 [facility] Work Phone: 1(385) 491-109102-25-2025 Nuclear medicine Diagnostic study note [facility] Main [place] [address] [place] [address] Nuclear Medicine Report Signed Patient: Corwin Muller MR#: [id number] : 1945 Acct:[id number] Age/Sex: 79 / M ADM Date: 5 Loc: Room: [address] [place] [address] Type: ADM IN Attending Dr: Jersey Bess [...] Jayda Burgess M.D.04/16/2024 12:45 PM Dictation Location: [place] [address] Transcribed By: [facility] 04/16/24 1245 Dictated By: Jayda Burgess MD 04/16/24 1237 Signed By: 04/16/24 1245 [facility] Work Phone: 1(190) [phone] [place] [address] Cardiology Progress Note Signed Patient: Corwin Muller MR#: [id number] : 1945 Acct:[id number] Age/Sex: 79 / M Adm Date: 5 Loc: Room: [address] [place] [address] Type: ADM IN Attending Dr: Jersey Bess [...] Ken MD 04/16/241116 Signed By: 04/16/24 1127 [facility]02-25-2025 Progress note Author Felicia Aguilar [facility] Note Date/Time April 15, 2024 10:06pm [facility] [address] [place] [address] Nephrology Progress Note Signed Patient: Corwin Muller MR#: [id number] : 1945 Acct:[id number] Age/Sex: 79 / M Adm Date: 5 Loc: 4 Room: [id number] Type: ADM IN Attending Dr: Jersey Bess [...] that time. He was evaluated in the [facility] with EKG showing SVT and inverted [...] Tablet) 400 mg PO TID [facility] Stop: 04/11/25 13:59 Last Admin: 04/15/24 21:25 Dose: 400 mg Apixaban (Apixaban 2.5 Mg Tablet) 2.5 mg PO BID [facility] Stop: 04/12/25 20:59 Last Admin: 04/15/24 21:25 Dose: 2.5 mg Aspirin (Aspirin 81 Mg Tablet.) 81 mg PO DAILY [facility] Stop: 04/11/25 08:59 Last Admin: 04/15/24 10:20 Dose: 81 mg Diltiazem HCl (Diltiazem Cd.24hr 180 Mg Cap.Er.24h) 360 mg PO DAILY [facility] Stop: 04/15/25 08:59 Last Admin: 04/15/24 16:39 Dose: 360 mg Docusate Sodium (Docusate 100 Mg Capsule) 200 mg PO BID PRN PRN Reason: Constipation Stop: 04/15/25 11:55 Furosemide (Furosemide 40 Mg Tablet) 40 mg PO BID@0800,1600 [facility] Stop: 04/12/25 15:59 Last Admin: 04/15/24 16:42 Dose: 40 mg Hydralazine HCl (Hydralazine 25 Mg Tablet) 25 mg PO BID [facility] Stop: 04/12/25 20:59 Last Admin: 04/15/24 21:24 Dose: 25 mg Ceftriaxone Sodium (Rocephin) 1 gm in 50 mls @ 100 mls/hr IV Q24H [facility] Last Admin: 04/15/24 12:41 Dose: 100 mls/hr Isosorbide Mononitrate (Isosorbide Mononitrate 24hr Er 30 Mg Tab.Er.24h) 30 mg PO DAILY.6A [facility] Stop: 04/13/25 05:59 Last Admin: 04/15/24 05:04 Dose: 30 mg Metoprolol Succinate (Metoprolol Succinate 50 Mg Tab.Er.24h) 50 mg PO BID [facility] Stop: 04/13/25 20:59 Last Admin: 04/15/24 21:24 Dose: 50 mg Morphine Sulfate (Morphine Sulfate 2 Mg/Ml Vial) 2 mg IV-PUSH Q4H PRN PRN Reason: Pain Scale 8 - 10 Ondansetron HCl (Ondansetron 4 Mg/2 Ml Vial) 4 mg IV-PUSH Q6H PRN PRN Reason: Nausea And Vomiting Stop: 04/10/25 04:04 Potassium Chloride (Potassium Chloride Er 20 Meq Tab.Er.Prt) 20 meq PO DAILY [facility] Stop: 04/13/25 08:59 Last Admin: 04/15/24 10:21 Dose: 20 meq Sennosides (Sennosides Syrup 8.8 Mg/5 Ml Udc) 17.6 mg PO HS [facility] Stop: 04/15/25 21:59 Sodium Chloride (Sodium Chloride 0.9 % 10 Ml Syringe) 0 ml IV-PUSH QSHIFT [facility] Stop: 04/10/25 05:59 Last Admin: 04/15/24 16:42 [...] infarction): Assessment/Problem Details: Patient was admitted for AR and his echocardiogram showed EF 35 to [...] <Electronically signed by MD Felicia Aguilar> 04/15/242205 [facility] Work Phone: 1(506) 850-844702-24-2025 [place] [address] Nephrology Progress Note Signed Patient: Corwin Muller MR#: [id number] : 1945 Acct:[id number] Age/Sex: 79 / M Adm Date: 5 Loc: Room: [address] [place] [address] Type: ADM IN Attending Dr: Jersey Bess [...] that time. He was evaluated in the [facility] with EKG showingSVT and inverted T [...] Tablet) 400 mg PO TID [facility] Stop: 04/11/25 13:59 Last Admin: 04/15/24 21:25 Dose: 400 mg Apixaban (Apixaban 2.5 Mg Tablet) 2.5 mg PO BID [facility] Stop: 04/12/25 20:59 Last Admin: 04/15/24 21:25 Dose: 2.5 mg Aspirin (Aspirin 81 Mg Tablet.) 81 mg PO DAILY [facility] Stop: 04/11/25 08:59 Last Admin: 04/15/24 10:20 Dose: 81 mg Diltiazem HCl (Diltiazem Cd.24hr 180 Mg Cap.Er.24h) 360 mg PO DAILY [facility] Stop: 04/15/25 08:59 Last Admin: 04/15/24 16:39 Dose: 360 mg Docusate Sodium (Docusate 100 Mg Capsule) 200 mg PO BID PRN PRN Reason: Constipation Stop: 04/15/25 11:55 Furosemide (Furosemide 40 Mg Tablet) 40 mg PO BID@0800,1600 [facility] Stop: 04/12/25 15:59 Last Admin: 04/15/24 16:42 Dose: 40 mg Hydralazine HCl (Hydralazine 25 Mg Tablet) 25 mg PO BID [facility] Stop: 04/12/25 20:59 Last Admin: 04/15/24 21:24 Dose: 25 mg Ceftriaxone Sodium (Rocephin) 1 gm in 50 mls @ 100 mls/hr IV Q24H [facility] Last Admin: 04/15/24 12:41 Dose: 100 mls/hr [...] infarction): Assessment/Problem Details: Patient was admitted for AR and his echocardiogram showed EF 35 to [...] Felicia Aguilar MD 04/15/242200 Signed By: 04/15/242205 [facility]02-24-2025 Progress note Author Mely Ken [facility] Note Date/Time April 15, 2024 12:47pm [facility] [address] [place] [address] Cardiology Progress Note Signed Patient: Corwin Muller MR#: [id number] : 1945 Acct:[id number] Age/Sex: 79 / M Adm Date: 5 Loc: 4 Room: [address] [place] [address] Type: ADM IN Attending Dr: Jersey Bess [...] modification Documented By: Mely Ken MD 04/15/24 1241 Signed By: <Electronically signed by MD Mely Ken> 04/15/24 3768 [facility] Work Phone: 1([phone]) 364-254102-24-2025 Progress note Author Jersey Bess [facility] Note Date/Time April 15, 2024 12:12pm [facility] [address] [place] [address] Hospitalist Progress Note Signed Patient: Corwin Muller MR#: [id number] : 1945 Acct:[id number] Age/Sex: 79 / M Adm Date: 5 Loc: 4 Room: [address] [place] [address] Type: ADM IN Attending Dr: Jersey Bess [...] <Electronically signed by Jersey Bess MD> 04/15/24 1212 [facility] Work Phone: [phone] [place] [address] Cardiology Progress Note Signed Patient: Corwin Muller MR#: [id number] : 1945 Acct:[id number] Age/Sex: 79 / M Adm Date: 5 Loc: Room: [address] [place] [address] Type: ADM IN Attending Dr: Jersey eBss MD Copies to: ~ Date of Service: [...] By: Mely Ken MD 04/15/241243 Signed By: 04/15/24 1247 [facility]02-24-2025 [place] [address] Hospitalist Progress Note Signed Patient: Corwin Muller MR#: [id number] : 1945 Acct:[id number] Age/Sex: 79 / M Adm Date: 5 Loc: Room: [address] [place] [address] Type: ADM IN Attending Dr: Jersey Bess [...] MD 04/15/24 11 54 Signed By: 04/15/[address] [place], [place] [phone] Progress note Author Jersey Bess [facility] Note Date/Time April 14, 2024 1:43pm [facility] [address] [place] [address] Hospitalist Progress Note Signed Patient: Corwin Muller MR#: [id number] : 1945 Acct:[id number] Age/Sex: 79 / M Adm Date: 5 Loc: Room: [address] [place] [address] Type: ADM IN Attending Dr: Jersey Bess [...] signed by Jersey Bess MD> 04/14/24 1343 [facility] Work Phone: [phone]) [phone] Progress note Author Tobi Monroy [facility] Note Date/Time April 14, 2024 1:06pm [facility] [address] [place], [place] [address] Nephrology Progress Note Signed Patient: Corwin Muller MR#: [id number] : 1945 Acct:[id number] Age/Sex: 79 / M Adm Date: 5 Loc: 4P Room: [id number] Type: ADM IN Attending Dr: Jersey Bess [...] that time. He was evaluated in the [facility] with EKG showing SVT and inverted [...] Tablet) 400 mg PO TID [facility] Stop: 04/11/25 13:59 Last Admin: 04/14/24 09:16 Dose: 400 mg Apixaban (Apixaban 2.5 Mg Tablet) 2.5 mg PO BID [facility] Stop: 04/12/25 20:59 Last Admin: 04/14/24 09:17 Dose: 2.5 mg Aspirin (Aspirin 81 Mg Tablet.Dr) 81 mg PO DAILY [facility] Stop: 04/11/25 08:59 Last Admin: 04/14/24 09:15 Dose: 81 mg Diltiazem HCl (Diltiazem Cd.24hr 180 Mg Cap.Er.24h) 360 mg PO DAILY [facility] Stop: 04/15/25 08:59 Furosemide (Furosemide 40 Mg Tablet) 40 mg PO BID@0800,1600 [facility] Stop: 04/12/25 15:59 Last Admin: 04/14/24 09:16 Dose: 40 mg Hydralazine HCl (Hydralazine 25 Mg Tablet) 25 mg PO BID [facility] Stop: 04/12/25 20:59 Last Admin: 04/14/24 09:17 Dose: 25 mg Ceftriaxone Sodium (Rocephin) 1 gm in 50 mls @ 100 mls/hr IV Q24H [facility] Last Admin: 04/14/24 11:29 Dose: 100 mls/hr Isosorbide Mononitrate (Isosorbide Mononitrate 24hr Er 30 Mg Tab.Er.24h) 30 mg PO DAILY.6A [facility] Stop: 04/13/25 05:59 Last Admin: 04/14/24 05:50 Dose: 30 mg Metoprolol Succinate (Metoprolol Succinate 50 Mg Tab.Er.24h) 50 mg PO BID [facility] Stop: 04/13/25 20:59 Last Admin: 04/14/24 09:17 Dose: 50 mg Morphine Sulfate (Morphine Sulfate 2 Mg/Ml Vial) 2 mg IV-PUSH Q4H PRN PRN Reason: Pain Scale 8 - 10 Ondansetron HCl (Ondansetron 4 Mg/2 Ml Vial) 4 mg IV-PUSH Q6H PRN PRN Reason: Nausea And Vomiting Stop: 04/10/25 04:04 Potassium Chloride (Potassium Chloride Er 20 Meq Tab.Er.Prt) 20 meq PO DAILY [facility] Stop: 04/13/25 08:59 Last Admin: 04/14/24 09:15 Dose: 20 meq Sodium Chloride (Sodium Chloride 0.9 % 10 Ml Syringe) 0 ml IV-PUSH QSHIFT [facility] Stop: 04/10/25 05:59 Last Admin: 04/13/24 21:31 Dose: 10 ml Spironolactone (Spironolactone 12.5 Mg Tablet) 12.5 mg PO DAILY [facility] Stop: 04/12/25 19:59 Last Admin: 04/14/24 09:16 [...] infarction): Assessment/Problem Details: Patient was admitted for AR and his echocardiogram showed EF 35 to [...] <Electronically signed by Tobi Monroy MD> 04/14/24 0732 [facility] Work Phone: 1([phone] 155-655202-23-2025 Progress note Author Bubba Jessica [facility] Note Date/Time April 14, 2024 12:48pm [facility] [address] [place] [address] Cardiology Progress Note Signed Patient: Corwin Muller MR#: [id number] : 1945 Acct:[id number] Age/Sex: 79 / M Adm Date: 5 Loc: Room: [address] [place] [address] Type: ADM IN Attending Dr: Jersey Bess MD Copies to: ~ Date of Service: 04/14/2024 Subjective Principal diagnosis: Congestive heart failure/atrial fibrillation Interval history: Mr. Muller is a 79 year old male was sent by his physician to the hospital because of observation of worsening respiratory status and tachycardia. He was evaluated in the emergency room at [facility]. The patient described progressive shortness of breath [...] elevated when the patient was sent to [facility] for further care. The patient denies [...] signed by Bubba Jessica MD> 04/14/24 1248 [facility] Work Phone: [phone] [place] [address] Hospitalist Progress Note Signed Patient: Corwin Muller MR#: [id number] : 1945 Acct:[id number] Age/Sex: 79 / M Adm Date: 5 Loc: Room: [address] [place] [address] Type: ADM IN Attending Dr: Jersey Bess [...] bedside. All questions answered. In agreement with theove plan Plan for MPI stress tomorrow. NPO midnight Jersey Quigley MD Internal Medicine Hospitalist Attending Physician Documented By: Jersey Bess MD 04/14/24 13 37 Signed By: 04/14/24 1343 [facility]02-23-[address] [address] Nephrology Progress Note Signed Patient: Corwin Muller MR#: [id number] : 1945 Acct:[id number] Age/Sex: 79 / M Adm Date: 5 Loc: 4P Room: [id number] Type: ADM IN Attending Dr: Jersey Bess [...] that time. He was evaluated in the [facility] with EKG showingSVT and inverted T [...] Tablet) 400 mg PO TID [facility] Stop: 04/11/25 13:59 Last Admin: 04/14/24 09:16 Dose: 400 mg Apixaban (Apixaban 2.5 Mg Tablet) 2.5 mg PO BID [facility] Stop: 04/12/25 20:59 Last Admin: 04/14/24 09:17 Dose: 2.5 mg Aspirin (Aspirin 81 Mg Tablet.) 81 mg PO DAILY [facility] Stop: 04/11/25 08:59 Last Admin: 04/14/24 09:15 Dose: 81 mg Diltiazem HCl (Diltiazem Cd.24hr 180 Mg Cap.Er.24h) 360 mg PO DAILY [facility] Stop: 04/15/25 08:59 Furosemide (Furosemide 40 Mg Tablet) 40 mg PO BID@0800,1600 [facility] Stop: 04/12/25 15:59 Last Admin: 04/14/24 09:16 Dose: 40 mg Hydralazine HCl (Hydralazine 25 Mg Tablet) 25 mg PO BID [facility] Stop: 04/12/25 20:59 Last Admin: 04/14/24 09:17 Dose: 25 mg Ceftriaxone Sodium (Rocephin) 1 gm in 50 mls @ 100 mls/hr IV Q24H [facility] Last Admin: 04/14/24 11:29 Dose: 100 mls/hr Isosorbide Mononitrate (Isosorbide Mononitrate 24hr Er 30 Mg Tab.Er.24h) 30 mg PO DAILY.6A [facility] Stop: 04/13/25 05:59 Last Admin: 04/14/24 05:50 Dose: 30 mg Metoprolol Succinate (Metoprolol Succinate 50 Mg Tab.Er.24h) 50 mg PO BID [facility] Stop: 04/13/25 20:59 Last Admin: 04/14/24 09:17 Dose: 50 mg Morphine Sulfate (Morphine Sulfate 2 Mg/Ml Vial) 2 mg IV-PUSH Q4H PRN PRN Reason: Pain Scale 8 - 10 Ondansetron HCl (Ondansetron 4 Mg/2 Ml Vial) 4 mg IV-PUSH Q6H PRN PRN Reason: Nausea And Vomiting Stop: 04/10/25 04:04 Potassium Chloride (Potassium Chloride Er 20 Meq Tab.Er.Prt) 20 meq PO DAILY [facility] Stop: 04/13/25 08:59 Last Admin: 04/14/24 09:15 Dose: 20 meq Sodium Chloride (Sodium Chloride 0.9 % 10 Ml Syringe) 0 ml IV-PUSH QSHIFT [facility] Stop: 04/10/25 05:59 Last Admin: 04/13/24 21:31 Dose: 10 ml Spironolactone (Spironolactone 12.5 Mg Tablet) 12.5 mg PO DAILY [facility] Stop: 04/12/25 19:59 Last Admin: 04/14/24 09:16 Dose: 12.5 mg Allergies No Known Allergies Allergy (Verified 04/09/24 14:28) Results - Nephrology Labs 04/14/24 04:24 04/14/24 04:24 Labs: 04/14/24 04:24 BUN 36 H Creatinine 2.30 H Radiology Impressions Impressions - last 24 hours: Any impression(s) listed above is documentation that was entered by the reading physician into a diagnostic report(s) for Corwindewey Muller. I have reviewed the report(s) and [...] infarction): Assessment/Problem Details: Patient was admitted for AR and his echocardiogram showed EF 35 to [...] MD 04/14/24 1257 Signed By: 04/14/24 1306 [facility]02-23-2025 [place] [address] Cardiology Progress Note Signed Patient: Corwin Muller MR#: [id number] : 1945 Acct:[id number] Age/Sex: 79 / M Adm Date: 5 Loc: 4 Room: [id number] Type: ADM IN Attending Dr: Jersey Bess MD Copies to: ~ Date of Service: 04/14/2024 Subjective Principal diagnosis: Congestive heart failure/atrial fibrillation Interval history: Mr. Muller is a 79 year old male was sent by his physician to the hospital because of observationof worsening respiratory status and tachycardia. He was evaluated in the emergency room at [facility]. The patient described progressive shortness of breath [...] elevated when the patient was sent to [facility] for further care. Thepatient denies chest [...] 03/24 05/14 1244 Signed By: 04/14/24 1248 [facility]02-22-2025 Progress note Author Tobi Monroy [facility] Note Date/Time April 13, 2024 2:23pm [facility] [address] [place] [address] Nephrology Progress Note Signed Patient: Corwin Muller MR#: [id number] : 1945 Acct:[id number] Age/Sex: 79 / M Adm Date: 5 Loc: Room: [address] [place] [address] Type: ADM IN Attending Dr: Jersey Bess [...] that time. He was evaluated in the [facility] with EKG showing SVT and inverted [...] Tablet) 400 mg PO TID [facility] Stop: 04/11/25 13:59 Last Admin: 04/13/24 09:51 Dose: 400 mg Apixaban (Apixaban 2.5 Mg Tablet) 2.5 mg PO BID [facility] Stop: 04/12/25 20:59 Last Admin: 04/13/24 09:43 Dose: 2.5 mg Aspirin (Aspirin 81 Mg Tablet.Dr) 81 mg PO DAILY [facility] Stop: 04/11/25 08:59 Last Admin: 04/13/24 09:45 Dose: 81 mg Diltiazem HCl (Diltiazem Cd.24hr 240 Mg Cap.Er.24h) 240 mg PO DAILY [facility] Stop: 04/13/25 12:44 Furosemide (Furosemide 40 Mg Tablet) 40 mg PO BID@0800,1600 [facility] Stop: 04/12/25 15:59 Last Admin: 04/13/24 09:44 Dose: 40 mg Hydralazine HCl (Hydralazine 25 Mg Tablet) 25 mg PO BID [facility] Stop: 04/12/25 20:59 Last Admin: 04/13/24 09:44 Dose: 25 mg Diltiazem HCl (Cardizem) 100 mg in 100 mls @ 10 mls/hr IV .Q10H [facility]; Protocol Stop: 04/11/25 10:14 Last Admin: 04/13/24 02:47 Dose: 10 mg/hr, 10 mls/hr Ceftriaxone Sodium (Rocephin) 1 gm in 50 mls @ 100 mls/hr IV Q24H [facility] Last Admin: 04/13/24 12:32 Dose: 100 mls/hr [...] Jones Pedro M.D.04/12/2024 9:34 PM Dictation Location: [place] [address] Any impression(s) listed above is documentation that [...] infarction): Assessment/Problem Details: Patient was admitted for AR and his echocardiogram showed EF 35 to [...] <Electronically signed by Tobi Monroy MD> 04/13/24 1429 [facility] Work Phone: 1([phone]) 799-840402-22-2025 Progress note Author Bubba Jessica [facility] Note Date/Time April 13, 2024 1:26pm [facility] [address] [place] [address] Cardiology Progress Note Signed Patient: Corwin Muller MR#: [id number] : 1945 Acct:[id number] Age/Sex: 79 / M Adm Date: 5 Loc: 4P Room: [id number] Type: ADM IN Attending Dr: Jersey Bess MD Copies to: ~ Date of Service: 04/13/2024 Subjective Principal diagnosis: Congestive heart failure/atrial fibrillation Interval history: Mr. Muller is a 79 year old male was sent by his physician to the hospital because of observation of worsening respiratory status and tachycardia. He was evaluated in the emergency room at [facility]. The patient described progressive shortness of breath [...] elevated when the patient was sent to [facility] for further care. The patient denies [...] % (Auto) 63.3 Lymph % (Auto) 18.6 [place] % (Auto) 11.0 Eos % (Auto) 6.7 Baso % (Auto) 0.4 Nucleat RBC Rel Count 0.1 Neut # (Auto) 5.5 Lymph # (Auto) 1.6 [place] # (Auto) 1.0 H Eos # (Auto) [...] Documented By: Bubba Jessica MD 03/24 04/16 131 Signed By: <Electronically signed by Bubba Jessica MD> 04/13/24 1326 [facility] Work Phone: 1(280) 415-333702-22-2025 [place] [address] Nephrology Progress Note Signed Patient: Corwin Muller MR#: [id number] : 1945 Acct:[id number] Age/Sex: 79 / M Adm Date: 5 Loc: Room: [address] [place] [address] Type: ADM IN Attending Dr: Jersey Bess [...] that time. He was evaluated in the [facility] with EKG showingSVT and inverted T [...] Tablet) 400 mg PO TID [facility] Stop: 04/11/25 13:59 Last Admin: 04/13/24 09:51 Dose: 400 mg Apixaban (Apixaban 2.5 Mg Tablet) 2.5 mg PO BID [facility] Stop: 04/12/25 20:59 Last Admin: 04/13/24 09:43 Dose: 2.5 mg Aspirin (Aspirin 81 Mg Tablet.Dr) 81 mg PO DAILY [facility] Stop: 04/11/25 08:59 Last Admin: 04/13/24 09:45 Dose: 81 mg Diltiazem HCl (Diltiazem Cd.24hr 240 Mg Cap.Er.24h) 240 mg PO DAILY [facility] Stop: 04/13/25 12:44 Furosemide (Furosemide 40 Mg Tablet) 40 mg PO BID@0800,1600 [facility] Stop: 04/12/25 15:59 Last Admin: 04/13/24 09:44 Dose: 40 mg Hydralazine HCl (Hydralazine 25 Mg Tablet) 25 mg PO BID [facility] Stop: 04/12/25 20:59 Last Admin: 04/13/24 09:44 Dose: 25 mg Diltiazem HCl (Cardizem) 100 mg in 100 mls @ 10 mls/hr IV .Q10H [facility]; Protocol Stop: 04/11/25 10:14 Last Admin: 04/13/24 02:47 Dose: 10 mg/hr, 10 mls/hr Ceftriaxone Sodium (Rocephin) 1 gm in 50 mls @ 100 mls/hr IV Q24H [facility] Last Admin: 04/13/24 12:32 Dose: 100 mls/hr Isosorbide Mononitrate (Isosorbide Mononitrate 24hr Er 30 Mg Tab.Er.24h) 30 mg PO DAILY.6A [facility] Stop: 04/13/25 05:59 Last Admin: 04/13/24 05:43 Dose: 30 mg Metoprolol Succinate (Metoprolol Succinate 50 Mg Tab.Er.24h) 50 mg PO BID [facility] Stop: 04/13/25 20:59 Morphine Sulfate (Morphine Sulfate 2 Mg/Ml Vial) 2 mg IV-PUSH Q4H PRN PRN Reason: Pain Scale 8 - 10 Ondansetron HCl (Ondansetron 4 Mg/2 Ml Vial) 4 mg IV-PUSH Q6H PRN PRN Reason: Nausea And Vomiting Stop: 04/10/25 04:04 Potassium Chloride (Potassium Chloride Er 20 Meq Tab.Er.Prt) 20 meq PO DAILY [facility] Stop: 04/13/25 08:59 Last Admin: 04/13/24 09:43 Dose: 20 meq Sodium Chloride (Sodium Chloride 0.9 % 10 Ml Syringe) 0 ml IV-PUSH QSHIFT [facility] Stop: 04/10/25 05:59 Last Admin: 04/13/24 09:52 Dose: 10 ml Spironolactone (Spironolactone 12.5 Mg Tablet) 12.5 mg PO DAILY [facility] Stop: 04/12/25 19:59 Last Admin: 04/13/24 09:45 [...] Jones Pedro M.D.04/12/2024 9:34 PM Dictation Location: [place] [address] Any impression(s) listed above is documentation that [...] infarction): Assessment/Problem Details: Patient was admitted for AR and his echocardiogram showed EF 35 to [...] Monroy MD 04/13/241419 Signed By: 04/13/24 1423 [facility]02-22-2025 Progress note Author Jersey Bess [facility] Note Date/Time April 13, 2024 11:47am [facility] [address] [place] [address] Hospitalist Progress Note Signed Patient: Corwin Muller MR#: [id number] : 1945 Acct:[id number] Age/Sex: 79 / M Adm Date: 5 Loc: Room: [address] [place] [address] Type: ADM IN Attending Dr: Jersey Bess [...] signed by Jersey Bess MD> 04/13/24 1147 [facility] Work Phone: 1([phone]) [phone] [place] [address] Cardiology Progress Note Signed Patient: Corwin Muller MR#: [id number] : 1945 Acct:[id number] Age/Sex: 79 / M Adm Date: 5 Loc: Room: [address] [place] [address] Type: ADM IN Attending Dr: Jersey Bess MD Copies to: ~ Date of Service: 04/13/2024 Subjective Principal diagnosis: Congestive heart failure/atrial fibrillation Interval history: Mr. Muller is a 79 year old male was sent by his physician to the hospital because of observationof worsening respiratory status and tachycardia. He was evaluated in the emergency room at [facility]. The patient described progressive shortness of breath [...] elevated when the patient was sent to [facility] for further care. Thepatient denies chest [...] % (Auto) 63.3 Lymph % (Auto) 18.6 Grayson % (Auto) 11.0 Eos % (Auto) 6.7 Baso % (Auto) 0.4 Nucleat RBC Rel Count 0.1 Neut # (Auto) 5.5 Lymph # (Auto) 1.6 Grayson # (Auto) 1.0 H Eos # (Auto) [...] 03/24 04/16 1319 Signed By: 04/13/24 1326 [facility]02-22-20[place] [address] Hospitalist Progress Note Signed Patient: Corwin Muller MR#: [id number] : 1945 Acct:[id number] Age/Sex: 79 / M Adm Date: 5 Loc: Room: [address] [place] [address] Type: ADM IN Attending Dr: Jersey Bess [...] Tablet PO 04/12/25 15:59 40 mg BID@0800,1600 LBESSING Administration Hydralazine HCl 25 mg 04/12/24 21:00 [...] MD 04/13/24 11 44 Signed By: 04/13/[address] [place], [place] 7454902-21-2025 Radiology Diagnostic study note [place] [address] Ultrasound Report Signed Patient: Corwin Muller MR#: [id number] : 1945 Acct:[id number] Age/Sex: 79 / M ADM Date: 5 Loc: Room: [address] [place] [address] Type: ADM IN Attending Dr: Jersey Bess [...] Jones Pedro M.D.04/12/2024 9:34 PM Dictation Location: [facility]-17 Tech: Lacey Archer Transcribed By: RK 04/12/242133 Dictated By: Jones Pedro II, MD 04/12/242132 Signed By: 04/12/242133 [facility] Work Phone: 1(377) 775-831502-21-2025 Progress note Author Keron Gutierres [facility] Note Date/Time April 12, 2024 6:17pm [facility] [address] [place] [address] Cardiology Progress Note Signed Patient: Corwin Muller MR#: [id number] : 1945 Acct:[id number] Age/Sex: 79 / M Adm Date: 5 Loc: 4 Room: [address] [place] [address] Type: ADM IN Attending Dr: Jersey Bess MD Copies to: ~ Date of Service: 04/12/2024 Subjective Principal diagnosis: Congestive heart failure/atrial fibrillation Interval history: Mr. Muller is a 79 year old male was sent by his physician to the hospital because of observation of worsening respiratory status and tachycardia. He was evaluated in the emergency room at [facility]. The patient described progressive shortness of breath [...] elevated when the patient was sent to [facility] for further care. The patient denies [...] % (Auto) 60.4 Lymph % (Auto) 23.6 Grayson % (Auto) 11.0 Eos % (Auto) 4.7 Baso % (Auto) 0.3 Nucleat RBC Rel Count 0.1 Neut # (Auto) 6.6 Lymph # (Auto) 2.6 Grayson # (Auto) 1.2 H Eos # (Auto) [...] Color Urine Appearance Urine pH Ur Specific [place] Urine Protein Urine Glucose (UA) Urine Ketones [...] MPV Neut % (Auto) Lymph % (Auto) Grayson % (Auto) Eos % (Auto) Baso % (Auto) Nucleat RBC Rel Count Neut # (Auto) Lymph # (Auto) Grayson # (Auto) Eos # (Auto) Baso # (Auto) Heparin Anti-Xa, Unfract 0.32 PHA Creatinine Clear Sodium Potassium Chloride Carbon Dioxide Anion Gap BUN Creatinine Est GFR (CKD-EPI) Glucose Calcium Total Bilirubin AST ALT Alkaline Phosphatase Total Protein Albumin Globulin Albumin/Globulin Ratio Urine Color Light-orange A Urine Appearance Turbid A Urine pH 5.5 Ur Specific [place] 1.011 Urine Protein 50 H Urine Glucose [...] the bedside Documented By: Keron Gutierres MD, [facility] 1811 Signed By: <Electronically signed by [facility] Keron Gutierres> 04/12/24 181 [facility] Work Phone: 1(202) 137-249102-21-2025 [place] [address] Cardiology Progress Note Signed Patient: Corwin Muller MR#: [id number] : 1945 Acct:[id number] Age/Sex: 79 / M Adm Date: 5 Loc: Room: [address] [place] [address] Type: ADM IN Attending Dr: Jersey Bess MD Copies to: ~ Date of Service: 04/12/2024 Subjective Principal diagnosis: Congestive heart failure/atrial fibrillation Interval history: Mr. Muller is a 79 year old male was sent by his physician to the hospital because of observationof worsening respiratory status and tachycardia. He was evaluated in the emergency room at [facility]. The patient described progressive shortness of breath [...] elevated when the patient was sent to [facility] for further care. Thepatient denies chest [...] % (Auto) 60.4 Lymph % (Auto) 23.6 Grayson % (Auto) 11.0 Eos % (Auto) 4.7 Baso % (Auto) 0.3 Nucleat RBC Rel Count 0.1 Neut # (Auto) 6.6 Lymph # (Auto) 2.6 Grayson # (Auto) 1.2 H Eos # (Auto) [...] Color Urine Appearance Urine pH Ur Specific [place] Urine Protein Urine Glucose (UA) Urine Ketones [...] MPV Neut % (Auto) Lymph % (Auto) [place]ayson % (Auto) Eos % (Auto) Baso % (Auto) Nucleat RBC Rel Count Neut # (Auto) Lymph # (Auto) Grayson # (Auto) Eos # (Auto) Baso # (Auto) Heparin Anti-Xa, Unfract 0.32 PHA Creatinine Clear Sodium Potassium Chloride Carbon Dioxide Anion Gap BUN Creatinine Est GFR (CKD-EPI) Glucose Calcium Total Bilirubin AST ALT Alkaline Phosphatase Total Protein Albumin Globulin Albumin/Globulin Ratio Urine Color Light-orange A Urine Appearance Turbid A Urine pH 5.5 Ur Specific [place] 1.011 Urine Protein 50 H Urine Glucose [...] the bedside Documented By: Keron Gutierres MD, [facility] 5 1811 Signed By: 04/12/241816 [facility]02-21-2025 Progress note Author Jersye Bess [facility] Note Date/Time April 12, 2024 3:42pm [facility] [address] [place] [address] Hospitalist Progress Note Signed Patient: Corwin Muller MR#: [id number] : 1945 Acct:[id number] Age/Sex: 79 / M Adm Date: 5 Loc: Room: [address] [place] [address] Type: ADM IN Attending Dr: Jersey Bess [...] Tablet PO 04/12/25 15:59 BID@0800,1600 [facility] Heparin Sodium (Porcine) 2,000 unit 04/11/24 10:14 [...] <Electronically signed by Jersey Bess MD> 04/12/24 1540 [facility] Work Phone: 1(421) 561-251902-21-[address] [address] Hospitalist Progress Note Signed Patient: Corwin Muller MR#: [id number] : 1945 Acct:[id number] Age/Sex: 79 / M Adm Date: 5 Loc: Room: [address] [place] [address] Type: ADM IN Attending Dr: Jersey Bess [...] Tablet PO 04/12/25 15:59 BID@0800,1600 [facility] Heparin Sodium (Porcine) 2,000 unit 04/11/24 10:14 Heparin *Protocol Bolus* 5,000 Unit/Ml Vial IV-PUSH 04/11/25 10:13 PROTOCOL PRN Anti-Xa < 0.1 or aPTT < 40 Hydralazine HCl 50 mg 04/11/24 21:00 04/11/24 21:45 Hydralazine 50 Mg Tablet PO 04/11/25 20:59 Not Given BID [facility] Diltiazem HCl 100 mg in 100 mls [...] MD 04/12/24 15 37 Signed By: 04/12/[address] [place], [place] 0623802-21-2025 Consult note Author Tobi Monroy [facility] Note Date/Time April 12, 2024 10:34am [facility] [address] [place] [address] Nephrology Consult Note Signed Patient: Corwin Muller MR#: [id number] : 1945 Acct:[id number] Age/Sex: 79 / M Adm Date: 5 Loc: Room: [address] [place] [address] Type: ADM IN Attending Dr: Jersey eBss MD Copies to: MD Ranjan Patrick DO [...] that time. He was evaluated in the [facility] with EKG showing SVT and inverted [...] polydipsia Dermatological: denies any itching or rash [facility] Medical History (Updated 04/12/24 @ 10:33 by [...] Tablet) 400 mg PO TID [facility] Stop: 04/11/25 13:59 Last Admin: 04/12/24 08:28 Dose: 400 mg Aspirin (Aspirin 81 Mg Tablet.Dr) 81 mg PO DAILY [facility] Stop: 04/11/25 08:59 Last Admin: 04/12/24 08:28 Dose: 81 mg Carvedilol (Carvedilol 6.25 Mg Tablet) 6.25 mg PO BID.WITH.MEALS [facility] Stop: 04/11/25 07:59 Last Admin: 04/12/24 08:28 Dose: 6.25 mg Furosemide (Furosemide 40 Mg/4 Ml Vial) 40 mg IV-PUSH BID@0800,1600 [facility] Stop: 04/11/25 15:59 Last Admin: 04/12/24 08:28 Dose: 40 mg Heparin Sodium (Porcine) (Heparin *Protocol Bolus* 5,000 Unit/Ml Vial) 2,000 unit IV-PUSH PROTOCOL PRN PRN Reason: Anti-Xa < 0.1 or aPTT < 40 Stop: 04/11/25 10:13 Hydralazine HCl (Hydralazine 50 Mg Tablet) 50 mg PO BID [facility] Stop: 04/11/25 20:59 Last Admin: 04/11/24 21:45 Dose: Not Given Diltiazem HCl (Cardizem) 100 mg in 100 mls @ 10 mls/hr IV .Q10H [facility]; Protocol Stop: 04/11/25 10:14 Last Admin: 04/12/24 06:07 Dose: 10 mg/hr, 10 mls/hr Heparin Sodium/Sodium Chloride (Heparin) 25,000 unit in 250 mls @ 9.99 mls/hr IV .Q24H [facility]; Protocol Stop: 04/11/25 10:14 Last Titration: 04/12/24 01:48 Dose: 14.68 unit/kg/hr, 15.15 mls/hr Isosorbide Mononitrate (Isosorbide Mononitrate 24hr Er 60 Mg Tab.Er.24h) 60 mg PO DAILY.6A [facility] Stop: 04/11/25 11:59 Last Admin: 04/12/24 06:10 [...] Syringe) 0 ml IV-PUSH QSHIFT [facility] Stop: 04/10/25 05:59 Last Admin: 04/12/24 06:11 [...] infarction): Assessment/Problem Details: Patient was admitted for AR and his echocardiogram showed EF 35 to [...] daily. Documented By: Tobi Monroy MD 04/12/24 0898 Signed By: <Electronically signed by Tobi Monroy MD> 04/12/24 1036 <Electronically signed by DO NIKO Carpenter> 04/12/24 1022 [facility] Work Phone: 1(190) 843-140702-21-2025 [place] [address] Nephrology Consult Note Signed Patient: Corwin Muller MR#: [id number] : 1945 Acct:[id number] Age/Sex: 79 / M Adm Date: 5 Loc: Room: [address] [place] [address] Type: ADM IN Attending Dr: Jersey Bess MD Copies to: MD Ranjan Patrick DO Kaitlyn Rizzo, DO, NIKO Bess MD~ Providers Consult Date: 04/12/24 Requesting [...] that time. He was evaluated in the [facility] with EKG showingSVT and inverted T [...] polydipsia Dermatological: denies any itching or rash [facility] Medical History (Updated 04/12/24 @ 10:33 by [...] Tablet) 400 mg PO TID [facility] Stop: 04/11/25 13:59 Last Admin: 04/12/24 08:28 Dose: 400 mg Aspirin (Aspirin 81 Mg Tablet.Dr) 81 mg PO DAILY [facility] Stop: 04/11/25 08:59 Last Admin: 04/12/24 08:28 Dose: 81 mg Carvedilol (Carvedilol 6.25 Mg Tablet) 6.25 mg PO BID.WITH.MEALS [facility] Stop: 04/11/25 07:59 Last Admin: 04/12/24 08:28 Dose: 6.25 mg Furosemide (Furosemide 40 Mg/4 Ml Vial) 40 mg IV-PUSH BID@0800,1600 [facility] Stop: 04/11/25 15:59 Last Admin: 04/12/24 08:28 Dose: 40 mg Heparin Sodium (Porcine) (Heparin *Protocol Bolus* 5,000 Unit/Ml Vial) 2,000 unit IV-PUSH PROTOCOL PRN PRN Reason: Anti-Xa < 0.1 or aPTT < 40 Stop: 04/11/25 10:13 Hydralazine HCl (Hydralazine 50 Mg Tablet) 50 mg PO BID [facility] Stop: 04/11/25 20:59 Last Admin: 04/11/24 21:45 Dose: Not Given Diltiazem HCl (Cardizem) 100 mg in 100 mls @ 10 mls/hr IV .Q10H [facility]; Protocol Stop: 04/11/25 10:14 Last Admin: 04/12/24 06:07 Dose: 10 mg/hr, 10 mls/hr Heparin Sodium/Sodium Chloride (Heparin) 25,000 unit in 250 mls @ 9.99 mls/hr IV .Q24H [facility]; Protocol Stop: 04/11/25 10:14 Last Titration: 04/12/24 01:48 Dose: 14.68 unit/kg/hr, 15.15 mls/hr Isosorbide Mononitrate (Isosorbide Mononitrate 24hr Er 60 Mg Tab.Er.24h) 60 mg PO DAILY.6A [facility] Stop: 04/11/25 11:59 Last Admin: 04/12/24 06:10 [...] Syringe) 0 ml IV-PUSH QSHIFT [facility] Stop: 04/10/25 05:59 Last Admin: 04/12/24 06:11 [...] infarction): Assessment/Problem Details: Patient was admitted for AR and his echocardiogram showed EF 35 to [...] 0855 Signed By: 04/12/24 1034 04/12/24 1022 [facility]02-20-2025 Progress note Author Keron Gutierres [facility] Note Date/Time April 11, 2024 12:56pm [facility] [address] [place] [address] Cardiology Progress Note Signed Patient: Corwin Muller MR#: [id number] : 1945 Acct:[id number] Age/Sex: 79 / M Adm Date: 5 Loc: Room: [address] [place] [address] Type: ADM IN Attending Dr: Jersey Bess MD Copies to: ~ Date of Service: 04/11/2024 Subjective Principal diagnosis: Congestive heart failure/atrial fibrillation Interval history: Mr. Muller is a 79 year old male was sent by his physician to the hospital because of observation of worsening respiratory status and tachycardia. He was evaluated in the emergency room at [facility]. The patient described progressive shortness of breath [...] elevated when the patient was sent to [facility] for further care. The patient denies [...] % (Auto) 63.0 Lymph % (Auto) 21.4 [place] % (Auto) 10.9 Eos % (Auto) 4.3 Baso % (Auto) 0.4 Nucleat RBC Rel Count 0.1 Neut # (Auto) 5.9 Lymph # (Auto) 2.0 [place] # (Auto) 1.0 H Eos # (Auto) [...] the bedside Documented By: Keron Gutierres MD, [facility] 5 1250 Signed By: <Electronically signed by MD JUAN Gutierres> 04/11/24 1256 [facility] Work Phone: 1(187) 987-481202-20-2025 Progress note Author Jersey Bess [facility] Note Date/Time April 11, 2024 12:15pm [facility] [address] [place] [address] Hospitalist Progress Note Signed Patient: Corwin Muller MR#: [id number] : 1945 Acct:[id number] Age/Sex: 79 / M Adm Date: 5 Loc: Room: [address] [place] [address] Type: ADM IN Attending Dr: Jersey Bess [...] <Electronically signed by Jersey Bess MD> 04/11/[address] [place] [address] Work Phone: 1(762) 576-375802-20-2025 [place] [address] Cardiology Progress Note Signed Patient: Corwin Muller MR#: [id number] : 1945 Acct:[id number] Age/Sex: 79 / M Adm Date: 5 Loc: Room: [address] [place] [address] Type: ADM IN Attending Dr: Jersey Bess MD Copies to: ~ Date of Service: 04/11/2024 Subjective Principal diagnosis: Congestive heart failure/atrial fibrillation Interval history: Mr. Muller is a 79 year old male was sent by his physician to the hospital because of observationof worsening respiratory status and tachycardia. He was evaluated in the emergency room at [facility]. The patient described progressive shortness of breath [...] elevated when the patient was sent to [facility] for further care. Thepatient denies chest [...] % (Auto) 63.0 Lymph % (Auto) 21.4 [place] % (Auto) 10.9 Eos % (Auto) 4.3 Baso % (Auto) 0.4 Nucleat RBC Rel Count 0.1 Neut # (Auto) 5.9 Lymph # (Auto) 2.0 [place] # (Auto) 1.0 H Eos # (Auto) [...] the bedside Documented By: Keron Gutierres MD, [facility] 5 1250 Signed By: 04/11/24 1256 [facility]02-20-2025 [place] [address] Hospitalist Progress Note Signed Patient: Corwin Muller MR#: [id number] : 1945 Acct:[id number] Age/Sex: 79 / M Adm Date: 5 Loc: Room: [address] [place] [address] Type: ADM IN Attending Dr: Jersey Bess [...] 200 Mg Tablet PO 04/11/25 13:59 TID [facility] Aspirin 81 mg 04/11/24 09:00 04/11/24 08:09 [...] MD 04/11/24 11 57 Signed By: 04/11/[address] [place], [place] [id number] Consult note Author Mely Ken [facility] Note Date/Time April 10, 2024 6:17pm [facility] [address] [place] [address] Cardiology Consult Note Signed Patient: Corwin Muller MR#: [id number] : 1945 Acct:[id number] Age/Sex: 79 / M Adm Date: 5 Loc: Room: [address] [place] [address] Type: ADM IN Attending Dr: Jersey Bess [...] was evaluated in the emergency room at [facility]. The patient described progressive shortness of breath [...] elevated when the patient was sent to [facility] for further care. The patient denies [...] shortness of breath, orthopnea and the pain [facility] Medical History Atrial tachycardia Chronic kidney disease Lumbar spondylosis Hyperlipidemia type II Primary osteoarthritis of right knee Primary osteoarthritis of left knee Knee pain Hypertension Elevated cholesterol Surgical History H/O hernia repair Family History Father 67 yrs Aortic aneurysm and dissection Mother 90 yrs History of stroke [facility] Problem: Diagnosed with Stroke Stroke Brother Diabetes [...] x10E3/uL Lymph # (Auto) 2.0 (1.00-4.8) x10E3/uL [place] # (Auto) 1.1 H (0.0-0.8) x10E3/uL Eos [...] / 350 Output Total 400 / 1999 1599 / 1999 Balance -250 [...] <Electronically signed by MD Mely Ken> 04/10/241816 [facility] Work Phone: 1(609) 179-586002-19-2025 [place] [address] Cardiology Consult Note Signed Patient: Corwin Muller MR#: [id number] : 1945 Acct:[id number] Age/Sex: 79 / M Adm Date: 5 Loc: Room: [address] [place] [address] Type: ADM IN Attending Dr: Jersey Bess [...] was evaluated in the emergency room at [facility]. The patient described progressive shortness of breath [...] elevated when the patient was sent to [facility] for further care. Thepatient denies chest [...] shortness of breath, orthopnea and the pain [facility] Medical History Atrial tachycardia Chronic kidney disease Lumbar spondylosis Hyperlipidemia type II Primary osteoarthritis of right knee Primary osteoarthritis of left knee Knee pain Hypertension Elevated cholesterol Surgical History H/O hernia repair Family History Father 67 yrs Aortic aneurysm and dissection Mother 90 yrs History of stroke [facility] Problem: Diagnosed with Stroke Stroke Brother [...] x10E3/uL Lymph # (Auto) 2.0 (1.00-4.8) x10E3/uL [place] # (Auto) 1.1 H (0.0-0.8) x10E3/uL Eos [...] / 350 Output Total 400 / 1999 1599 / 1999 Balance -250 [...] Mely Ken MD 04/10/241806 Signed By: 04/10/241816 [facility]02-19-2025 Progress note Author Jersey Bess [facility] Note Date/Time April 10, 2024 2:38pm [facility] [address] [place] [address] Progress Note Signed Patient: Corwin Muller MR#: [id number] : 1945 Acct:[id number] Age/Sex: 79 / M Adm Date: 5 Loc: Room: [address] [place] [address] Type: ADM IN Attending Dr: Jersey Bess [...] <Electronically signed by Jersey Bess MD> 04/10/[address] [place] [address] Ctr Work Phone: 1(272) 261-349802-19-2025 [place] [id number] Progress Note Signed Patient: Corwin Muller MR#: [id number] : 1945 Acct:[id number] Age/Sex: 79 / M Adm Date: 5 Loc: Room: 0J7108-7 Type: ADM IN Attending Dr: Jersey Bess [...] MD 04/10/24 14 34 Signed By: 04/10/[address] [place], [place] [id number] History and physical note Author Holly Weinberg [facility] Note Date/Time April 10, 2024 6:45am [facility] [address] [place], [place] [address] Hospitalist H&P Signed Patient: Corwin Muller MR#: [id number] : 1945 Acct:[id number] Age/Sex: 79 / M Adm Date: 5 Loc: Room: 0K3648-6 Type: ADM IN Attending Dr: Kurtis Langley MD Copies to: MD Ranjan Soto DO Paula G Smith, LAMP DEVELOPER~ HPI DATE OF EXAMINATION: 04/10/24 CHIEF COMPLAINT: [...] Findings were consistent with acute pulmonary edema. Musdv-qh-mirc ultrasound confirmed scattered B-lines bilaterally, there was [...] drinks alcohol. States that he exercises daily. [facility] chart review?initial EKG SVT with a [...] unless noted in the HPI or below. [facility] Medical History Atrial tachycardia Chronic kidney disease Lumbar spondylosis Hyperlipidemia type II Primary osteoarthritis of right knee Primary osteoarthritis of left knee Knee pain Hypertension Elevated cholesterol Surgical History H/O hernia repair Family History (Updated 04/10/24 @ 04:14 by Holly Weinberg APRN) Father 67 yrs Aortic aneurysm and dissection Mother 90 yrs History of stroke [facility] Problem: Diagnosed with Stroke Stroke Brother [...] signed by Kurtis Langley MD> 04/10/24 0645 [facility] Work Phone: 1(145) 660-716302-19-2025 [place] [address] Hospitalist H&P Signed Patient: Corwin Muller MR#: [id number] : 1945 Acct:[id number] Age/Sex: 79 / M Adm Date: 5 Loc: Room: [address] [place] [address] Type: ADM IN Attending Dr: Kurtis Langley [...] were con sistent with acute pulmonary edema. Wsuav-hh-hlae ultrasound confirmed scattered B-lines bilaterally, there was [...] drinks alcohol. States that he exercises daily. [facility] chart review?initial EKG SVT with a [...] unless noted in the HPI or below. [facility] Medical History Atrial tachycardia Chronic kidney disease [...] of days): 3 Documented By: Holly Weinberg, LAMP DEVELOPER 04/10/24 0411 Signed By: 04/10/24 0422 04/10/24 0645 [facility]02-18-2025 Evaluation note* Diagnosis Onset Date Resolution Status Admit Date Atrial tachycardia acute 2024 2:27pm Elevated cholesterol acute ua2024 2:27pm Hypertension acute March 2:27pm Chronic kidney disease deleted Fe bruary 2024 2:27pm Acute hypoxic respiratory failure acute April 10 2 025 1:30am Acute kidney injury superimposed on CKD acute March 1:30am Acute pulmonary edema acute Feb ru2024 1:30am Acute systolic CHF (congesti ve heart failure) acute April 10 2 025 1:30am Cardiomyopathy acute March 232024 [...] 10, 2024 1:30am Chronic kidney disease deleted [facility] 2024 1:30am [facility] Work Phone: 1([phone]) 444-889402-18-2025 Evaluation note* Diagnosis Onset Date Resolution Status Admit Date Elevated cholesterol acute 2024 2:27pm Hypertension acute March 2:27pm Atrial tachycardia deleted 2024 2:27pm Chronic kidney disease deleted [facility] 2024 2:27pm Acute kidney injury superimposed on [...] 10 025 1:30am Acute pulmonary edema resolved [place] 2024 1:30am Acute systolic CHF (congesti ve heart failure) resolved April 10 025 1:30am CHF (congestive heart failure) resol kay April 10, 2024 1:30am SVT (supraventricular tachycardia) resolved April 10 025 1:30am UTI (urinary tract infection) resolv ed April 10, 2024 1:30am Cardiomyopathy deleted March 232024 1:30am Chronic kidney disease deleted [facility] 2024 1:30am Atrial fibrillation acute April 23, 2024 10:21am Chronic kidney disease acute [facility] 2024 10:21am Elevated cholesterol acute Jozef h 2024 10:21am HFrEF (heart failure with reduced ejection fraction) acute April 23, 2024 10:21am Hypertension acute April 23 10:21am Ischemic cardiomyopathy acute [facility] 2024 10:21am [facility] Work Phone: 1(628) 511-402302-18-2025 Evaluation note* Diagnosis Onset Date Resolution Status Admit Date Elevated cholesterol acute uary 2024 2:27pm Hypertension acute March 2:27pm Atrial tachycardia deleted 2024 2:27pm Chronic kidney disease deleted Fe bru2024 2:27pm Acute kidney injury superimp osed on [...] 232024 1:30am Chronic kidney disease deleted Fe bruary 2024 1:30am Atrial fibrillation acute April 23, 2024 10:21am Chronic kidney disease acute [facility] 2024 10:21am Elevated cholesterol acute Jozef h 2024 10:21am HFrEF (heart failure with re duced ejection fraction) acute April 23 10:21am Hypertension acute April 23 025 10:21am Ischemic cardiomyopathy acute M arch 2024 10:21am Atrial fibrillation acute April 23, 2024 2:57pm CKD (chronic kidney disease) stage 4, GFR 15-29 ml/min acute April 23, 2024 2:57pm Elevated cholesterol acute 2024 2:57pm HFrEF (heart failure with re duced ejection fraction) acute April 23 2:57pm Ischemic cardiomyopathy acute M arch 2024 2:57pm Secondary hyperparathyroidism acute April 23, 2024 2:57pm [facility] Work Phone: 1([phone]) 294-374802-18-2025 Evaluation note* Diagnosis Onset Date Resolution Status Admit Date Hypertension acute March 2:27pm Elevated cholesterol resolved 2024 2:27pm Atrial tachycardia deleted 2024 2:27pm Chronic kidney disease deleted 2024 2:27pm CKD (chronic kidney disease) stage 3, GFR 30-59 ml/min acute 2024 1:30am HFrEF (heart failure with re duced ejection fraction) acute March 1:30am Hypertension acute March 1:30am Paroxysmal atrial fibrillati on with RVR acute April 10 2 025 1:30am Acute hypoxic respiratory failure re solved April 10, 2024 1:30am Acute kidney injury superimp osed on CKD resolved April 10 2 025 1:30am Acute pulmonary edema resolved Fe ru2024 1:30am Acute systolic CHF (congesti ve heart failure) resolved April 10 2 025 1:30am CHF (congestive heart failure) resol kay April 10, 2024 1:30am NSTEMI (non-ST elevated myocardial infarction) 2024 resolved April 10, 2024 1:30am Cardiomyopathy deleted March 232024 1:30am Chronic kidney disease deleted [place] 2024 1:30am SVT (supraventricular tachycardia) deleted April 10, 2 025 1:30am UTI (urinary tract infection) delete d April 10, 2024 1:30am Atrial fibrillation acute April 23, 2024 10:21am Chronic kidney disease acute [facility] 2024 10:21am HFrEF (heart failure with re duced ejection fraction) acute April 23 10:21am Hypertension acute April 23, 2 025 10:21am Ischemic cardiomyopathy acute [facility] 2024 10:21am Elevated cholesterol resolved [facility] 2024 10:21am Atrial fibrillation acute April 23, 2024 2:57pm CKD (chronic kidney disease) stage 4, GFR 15-29 ml/min acute April 23, 2024 2:57pm HFrEF (heart failure with re duced ejection fraction) acute April 23 2:57pm Ischemic cardiomyopathy acute [facility] 2024 2:57pm Secondary hyperparathyroidism acute April 23, 2024 2:57pm Elevated cholesterol resolved [facility] 2024 2:57pm Atrial fibrillation acute May 08, 2024 10:20am Chronic kidney disease acute [facility] 2024 10:20am HFrEF (heart failure with re duced ejection fraction) acute May 08 025 10:20am Hypertension acute May 08, 2024 10:20am Ischemic cardiomyopathy acute [facility] 2024 10:20am Elevated cholesterol resolved [facility] 2024 10:20am [facility] Work Phone: [phone]) 624-394012-22-2023 Evaluation note* Encounter Date Diagnosis Assessment Notes [...] bracing and Tylenol. Avoid squatting or kneeling [facility] Other 12-22-2023 History general Narrative - Reported* [...] History COLONOSCOPY 2010 Hospitalization History SEE SURGICAL [facility] Other 09-18-2023 History general Narrative - Reported* [...] History COLONOSCOPY 2010 Hospitalization History SEE SURGICAL [facility] Other 08-23-2023 History general Narrative - Reported* [...] History COLONOSCOPY 2010 Hospitalization History SEE SURGICAL [facility] Other 08-15-2023 History general Narrative - Reported* [...] History COLONOSCOPY 2010 Hospitalization History SEE SURGICAL [facility] Other 08-14-2023 Evaluation note* Encounter Date Diagnosis [...] best 2/3 readings w/ goal < 135-85 [facility] Other 05-30-2023 Evaluation note* Encounter Date Diagnosis [...] q HS for week. No improvement, irrigate [facility] Other Evaluation noteNo InformationNort [employer] Other Evaluation note* Diagnosis Onset Date Resolution Status Elevated cholesterol acute Hypertension acute Knee pain acute Primary osteoarthritis of left knee acute Primary osteoarthritis of right knee acute [facility] Work Phone: Evaluation note* Diagnosis Onset Date Resolution Status Admit Date Elevated cholesterol acute Febr [id number] 2:27pm Hypertension acute March 2:27pm Knee pain acute February 18th, 2025 2:27pm Primary osteoarthritis of le ft knee acute April 09 025 2:27pm Primary osteoarthritis of ri ght knee acute April 09 2:27pm [facility] Work Phone: Evaluation note* Diagnosis Cardiomyopathy, ischemic- [...] unspecified BMI 27.0-27.9,adult documented in this encounter [facility] Work Phone: History general Narrative - [...] COLONOSCOPY 2010 Hospitalization History SEE SURGICAL HX [facility] Other Summary Purpose Family History Relationship Condition Age at Onset Recorded Date/T [...] Unknown brother Parkinson's disease Unknown Advance Directives Advance Directive Response Recorded Date/ Time Advance [...] 2:57pm Secondary hyperparathyroidism April 23, 2024 2:57pm Chief Complaint Admit Date bilateral knee cortisone shots April 09, 2024 2:27pm A-fib RVR, Elevated Troponin April 102024 1:30am A-fib RVR, Elevated Troponin April 122024 8:55am A-fib RVR, Elevated Troponin April 132024 1:19pm A-fib RVR, Elevated Troponin April 162024 2:01pm Amb Documentation April 22, 2024 8:30 am afib rvr April 23, 2024 10:2 1am hospital f/u April 23, 2024 2:57 pm fatigue/test results May 08, 2024 10 :20am Reason for Visit Admit Date Hypertension April 09, 2024 2:27pm Elevated cholesterol April 09, 2024 2:27pm Atrial tachycardia April 09, 2024 2:27pm Chronic kidney disease April 09 2:27pm CKD (chronic kidney disease) stage 3, GF R 30-59 ml/min April 10, 2024 1:30am HFrEF (heart failure with reduced ejecti on fraction) April 10, 2024 1:30am Hypertension April 10, 2024 1:30am Paroxysmal atrial fibrillation with RVR April 10, 2024 1:30am Acute hypoxic respiratory failure Februa 2024 1:30am Acute kidney injury superimposed on CKD April 10, 2024 1:30am Acute pulmonary edema April 10 1:30am Acute systolic CHF (congestive heart to lure) April 10, 2024 1:30am CHF (congestive heart failure) April 10, 2024 1:30am NSTEMI (non-ST elevated myocardial infar ction) April 10, 2024 1:30am Cardiomyopathy April 10, 2024 1:30am Chronic kidney disease April 10 1:30am SVT (supraventricular tachycardia) Febru chidi 2024 1:30am UTI (urinary tract infection) March 232024 1:30am Atrial fibrillation April 23, 2024 10:2 1am Chronic kidney disease April 23, 2024 1 0:21am HFrEF (heart failure with reduced ejecti on fraction) April 23, 2024 10:21am Hypertension April 23, 2024 10:2 1am Ischemic cardiomyopathy April 23, 2024 10:21am Elevated cholesterol April 23, 2024 10: 21am Atrial fibrillation April 23, 2024 2:57 pm CKD (chronic kidney disease) stage 4, GF R 15-29 ml/min April 23, 2024 2:57pm HFrEF (heart failure with reduced ejecti on fraction) April 23, 2024 2:57pm Ischemic cardiomyopathy April 23, 2024 2:57pm Secondary hyperparathyroidism April 23, 2024 2:57pm Elevated cholesterol April 23, 2024 2:5 7pm Atrial fibrillation May 08, 2024 10: 20am Chronic kidney disease May 08, 2024 10:20am HFrEF (heart failure with reduced ejecti on fraction) May 08, 2024 10:20am Hypertension May 08, 2024 10: 20am Ischemic cardiomyopathy May 08, 2024 10:20am Elevated cholesterol May 08, 2024 10 :20am Additional Source Comments (unrecognized sect ion and content) No Status Records FoundNo Status Records Found INFORMATION SOURCE (unrecogn ized section and content) DATE CREATED AUTHOR [facility]/2021 [facility] DATE CREATED AUTHOR AUTHOR'S ORGANIZ ATION 05/04/2024 [facility] REASON FOR VISIT (unrecogniz ed section and content) Reason Comments Hospital Follow-up [facility] discharge 04/18 Specialty Diagnoses / Procedures Referred By Contac t Referred To Contact Diagnoses Persistent atrial fibrillation (Multi) Procedures ECG 12 Lead Mely Ken MD [address] [place] [id number] Phone: tel: fax: Referral ID Status Reason Start Date Expiration Date V isits Requested Visits Authorized [id number] Authorized 04/29/2024 04/29/2025 1 1 Care Teams (unrecognized sec tion and content) Team Status: Active Member Role Status Dates Ranjan Lomas , DO Primary Care Provider Active Team Status: [...] MD Other Provider Active Start: ebruary 2024 End: April 18, 2024 Lexi Archuleta MD Other Provider Active Start: April 10, 2024 End: April 18, 2024 Bret Castañeda MD Other Provider Active Start: ebruary 2024 End: April 18, 2024 Susana Velarde , [employer]- Other Provider Active Sta rt: April 10, 2024 End: April 18, 2024 Felicia Aguilar MD Other Provider Active Start: eb2024 End: April 18, 2024 JEFFREY Gómez Other Provider Active Start: April 10, 2024 End: April 18, 2024 Tobi Monroy MD Other Provider Active Start: 2024 End: April 18, 2024 Noel Lilly MD Other Provider Active Start: [place]24 End: April 18, 2024 Gin Conrad MD Other Provider Active Start: 2024 End: April 18, 2024 Luis Patel MD Other Provider Active Start: [place] 2024 End: April 18, 2024 Cathleen Kumari [...] Provider Active Start: ebruary 2024 Susana Velarde [facility]- Other Provider Active Sta rt: April 12, 2024 Felicia Aguilar MD Other Provider Active Start: ebruary 2024 JEFFREY Gómez Other Provider Active Start: April 12, 2024 Tobi Monroy MD Attending Provider, Other Provider Active Start: April 12, 2024 Noel Lilly MD Other Provider Active Start: ebruary 2024 Team Status: Active Member Role Status [...] Provider Active Start: ebruary 2024 Susana Velarde [facility]- Other Provider Active Sta rt: April 13, 2024 Felicia Aguilar MD Other Provider Active Start: ebruary 2024 JEFFREY Gómez Other Provider Active Start: April 13, 2024 Tobi Monroy MD Other Provider Active Start: bru2024 Noel Lilly MD Other Provider Active Start: [...] Star t: April 16, 2024 Dequan Kirkpatrick , Other Provider Active Start : April 16, [...] Leonie Gaines MD Other Provider Active Start: ebru2024 Lexi Archuleta MD Other Provider Active Start: April 16, 2024 Bret Castañeda MD Other Provider Active Start: ebru2024 Susana Velarde , [employer] Other Provider Active Sta rt: April 16, 2024 Felicia Aguilar MD Other Provider Active Start: eb2024 Tavia Hernandez NP-C Other Provider Active Start: April 16, 2024 Tobi Monroy MD Other Provider Active Start: 2024 Noel Lilly MD Other Provider Active Start: eb2024 Gin Conrad MD Other Provider Active Start: 2024 Luis Patel MD Attending Provider, Other [...] April 23, 2024 End: April 23, 2024 Configuration Release Manager Relationship Specialty Start Date End Date Ranjan Lomas DO [address] [place] [address] PCP - General Internal Medicine 04/16/24 Echo Regalado, [employer] 04/19/24 Team Status: Active Member Role Status Dates Ranjan Lomas DO Primary Care Provide r, Attending Provider Active Start: May 07, 2024 Team Status: Inactive Member Role Status Dates Ranjan Lomas DO Primary Care Provide r, Attending Provider Active Start: May 08, 2024 End: May 08, 2024 Goals (unrecognized section and content) Goals [...] BE BASED ON THE PRIMARY CLINICAL RECORDS. [facility] [employer] [facility]. provides no warranty or guarantee of the accuracy or completeness of information in this document.
[2024-05-13 12:40] LABS: Bilirubin Urine NEGATIVE (NEGATIVE); Blood Urine NEGATIVE (NEGATIVE); Color Urine LT. YELLOW (YELLOW); Glucose Urine UA NEGATIVE (NEGATIVE); Ketones Urine NEGATIVE (NEGATIVE); Leukocyte Esterase Urine SMALL (NEGATIVE); Nitrite Urine POSITIVE (NEGATIVE); Protein Urine NEGATIVE (NEG/TRACE); Urobilinogen Urine 0.2 EU/dL (0.2-1.0)
[2024-05-13 12:50] LABS: Clarity Urine SLIGHTLY CLOUDY (CLEAR)
[2024-05-13 12:51] LABS: Bacteria Urine SMALL #/HPF (NONE SEEN); Cast Seen? NONE SEEN #/LPF (NONE SEEN); Crystals Seen? None Seen #/HPF (None Seen); Mucus Urine NONE SEEN (NONE SEEN); Squamous Epithelial Cell Urine RARE #/LPF (NONE/RARE); WBC Urine 20-50 #/HPF (NONE SEEN)
[2024-05-13 12:57] LABS: Anion Gap 10.5; BUN Creatinine Ratio 15.4; Calcium 9.3 mg/dL (8.5-10.1); Carbon Dioxide 32.8 mmol/L (21.0-32.0); Chloride 103 mmol/L (98-107); Estimated GFR (African America 24 (>=60 mL/min/1.73m^2); Estimated GFR (Non-African Ame 19 (>=60 mL/min/1.73m^2); Glucose 81 mg/dL (74-106); Magnesium 2.3 mg/dL (1.8-2.4); Phosphorus 3.5 mg/dL (2.6-4.7); Potassium 4.3 mmol/L (3.5-5.1); Sodium 142 mmol/L (136-145); Uric Acid 12.5 mg/dL (3.5-7.2)
[2024-05-14 09:09] LABS: PTH, Intact 108 pg/mL (15-65)
== END 2024-05-13 12:03 | disposition home or self-care (01) ==
LOC: LAB 12:04
PROVIDERS: PCP Internal Medicine; Visit Provider Internal Medicine
DX: E78.00 Pure hypercholesterolemia, unspecified (principal); N18.4 Chronic kidney disease, stage 4 (severe); I48.0 Paroxysmal atrial fibrillation; I25.5 Ischemic cardiomyopathy; I50.20 Unspecified systolic (congestive) heart failure; N25.81 Secondary hyperparathyroidism of renal origin
CPT/HCPCS: 36415; 80069; 81001; 82306; 83735; 83970; 84550

== ENCOUNTER 2024-06-11 07:13 | Outpatient (RCR) | payer MEDICARE, OTHER, SELFPAY ==
--- NOTE | 2024-05-03 14:43 | CR1_ITS ---
[facility] Test Date: 2024-05-03 Pat Name: LIOR SMITH Department: Room: - Gender: Male Safety Professional: : [id number] Requested By: OKSANA ANDERSEN Order Number: [id number] Reading MD: OKSANA ANDERSEN Interpretive Statements Session Date: Electronically Signed On 05-18-2024 14:29:25 EDT by OKSANA ANDERSEN
--- NOTE | 2024-05-07 10:47 | ECG_ITS ---
The [facility] Test Date: 2024-05-07 Pat Name: LIOR SMITH Department: Room: - Gender: Male Curriculum And Instruction Director: : 1945 Requested By: OKSANA ANDERSEN Order Number: [id number] Reading MD: ARDEN WATSON Measurements Intervals [place] Rate: 59 P: 42 [place]: 271 QRS: -7 QRSD: 106 T: 43 QT: 447 QTc: 444 Interpretive Statements SINUS BRADYCARDIA WITH FIRST DEGREE AV BLOCK WITH OCCASIONAL SUPRAVENTRICULAR PREMATURE COMPLEXES ANTEROSEPTAL MYOCARDIAL INFARCTION [40+ ms Q WAVE IN V1-V4], OF INDETERMINATE AGE Compared to ECG 04/09/2024 20:47:42 Sinus rhythm no longer present Incomplete right bundle-branch block no longer present Myocardial infarct finding still present Electronically Signed On 05-07-2024 14:55:46 EDT by ARDEN WATSON
--- NOTE | 2024-05-09 14:08 | CR1_ITS ---
The [facility] Test Date: 2024-05-09 Pat Name: LIOR SMITH Department: Room: - Gender: Male Senior Database Programmer: : 1945 Requested By: OKSANA ANDERSEN Order Number: [id number] Reading MD: OKSANA ANDERSEN Interpretive Statements Session Date: Electronically Signed On 05-18-2024 14:29:40 EDT by OKSANA ANDERSEN
--- NOTE | 2024-05-30 11:23 | CR1_ITS ---
[facility] Test Date: 2024-05-30 Pat Name: LIOR SMITH Department: Room: - Gender: Male Direct Support Staff: : [id number] Requested By: OKSANA ANDERSEN Order Number: [id number] Reading MD: OKSANA ANDERSEN Interpretive Statements Session Date: Electronically Signed On 06-02-2024 19:59:03 EDT by OKSANA ANDERSEN
== END 2024-06-12 14:34 | disposition home or self-care (01) ==
LOC: CR 07:13
PROVIDERS: PCP Internal Medicine; Visit Provider Internal Medicine Cardiovascular Disease
DX: D64.9 Anemia, unspecified (principal); N18.4 Chronic kidney disease, stage 4 (severe); I25.5 Ischemic cardiomyopathy; I50.20 Unspecified systolic (congestive) heart failure; I48.0 Paroxysmal atrial fibrillation
CPT/HCPCS: 71046; 93005; 93798

== ENCOUNTER 2024-06-24 09:36 | Outpatient (OUT) | payer MEDICARE, OTHER, SELFPAY ==
[2024-06-24 10:28] LABS: Hematocrit 44.4 % (42.0-54.0); Mean Corpuscular HGB Conc 33.8 g/dL (29.9-35.2); Mean Corpuscular Hemoglobin 30.1 pg (25.9-34.0); Mean Platelet Volume 9.3 fL (9.5-13.5); Platelet Count 204 10^3/uL (150-450); Red Blood Count 4.99 10^6/uL (4.70-6.10); Red Cell Distribution Width 13.8 % (11.0-15.0); White Blood Count 7.6 10^3/uL (4.0-11.0)
[2024-06-24 10:47] LABS: Albumin Level 3.7 g/dL (3.4-5.0); Anion Gap 14.4; BUN Creatinine Ratio 16.7; Calcium 9.1 mg/dL (8.5-10.1); Carbon Dioxide 29.4 mmol/L (21.0-32.0); Chloride 102 mmol/L (98-107); Estimated GFR (African America 25 (>=60 mL/min/1.73m^2); Estimated GFR (Non-African Ame 21 (>=60 mL/min/1.73m^2); Glucose 102 mg/dL (74-106); Magnesium 2.1 mg/dL (1.8-2.4); Phosphorus 3.3 mg/dL (2.6-4.7); Potassium 3.8 mmol/L (3.5-5.1); Sodium 142 mmol/L (136-145); Uric Acid 12.5 mg/dL (3.5-7.2)
[2024-06-24 10:48] LABS: Creatinine Urine Random 55.37 mg/dL (20.00-300.00); Protein Creatinine Ratio Urine 0.28; Total Protein Urine Random 15.7 mg/dL (<=11.9)
[2024-06-24 11:29] LABS: Bilirubin Urine NEGATIVE (NEGATIVE); Blood Urine TRACE-I (NEGATIVE); Clarity Urine CLEAR (CLEAR); Color Urine LT. YELLOW (YELLOW); Glucose Urine UA NEGATIVE (NEGATIVE); Ketones Urine NEGATIVE (NEGATIVE); Leukocyte Esterase Urine MODERATE (NEGATIVE); Nitrite Urine POSITIVE (NEGATIVE); Protein Urine NEGATIVE (NEG/TRACE); Urobilinogen Urine 0.2 EU/dL (0.2-1.0)
[2024-06-24 12:11] LABS: WBC Urine 50-75 #/HPF (NONE SEEN)
[2024-06-24 12:12] LABS: Bacteria Urine LARGE #/HPF (NONE SEEN); Cast Seen? NONE SEEN #/LPF (NONE SEEN); Crystals Seen? None Seen #/HPF (None Seen); Mucus Urine NONE SEEN (NONE SEEN); Squamous Epithelial Cell Urine RARE #/LPF (NONE/RARE)
[2024-06-24 12:13] LABS: RBC Urine NONE SEEN #/HPF (0-2)
[2024-06-25 11:13] LABS: PTH, Intact 93 pg/mL (15-65)
== END 2024-06-24 09:37 | disposition home or self-care (01) ==
LOC: LAB 09:38
PROVIDERS: PCP Internal Medicine; Visit Provider Internal Medicine
DX: E79.0 Hyperuricemia without signs of inflammatory arthritis and tophaceous disease (principal); N25.81 Secondary hyperparathyroidism of renal origin; N18.4 Chronic kidney disease, stage 4 (severe); I48.0 Paroxysmal atrial fibrillation; I25.5 Ischemic cardiomyopathy; I50.20 Unspecified systolic (congestive) heart failure
CPT/HCPCS: 36415; 80069; 81001; 82306; 82570; 83735; 83970; 84156; 84550; 85027

== ENCOUNTER 2024-07-18 13:05 | Outpatient (OUT) | payer MEDICARE, OTHER, SELFPAY | END 2024-07-18 13:06 | disposition home or self-care (01) | LOC: CARD 13:05 | PROVIDERS: PCP Internal Medicine; Visit Provider Internal Medicine Cardiovascular Disease | DX: I48.19 Other persistent atrial fibrillation (principal); Z79.899 Other long term (current) drug therapy | CPT/HCPCS: 94010; 94726 ==

== ENCOUNTER 2024-09-18 12:13 | Outpatient (OUT) | payer MEDICARE, OTHER, SELFPAY ==
[2024-09-18 12:43] LABS: Glucose Urine UA NEGATIVE (NEGATIVE)
[2024-09-18 12:54] LABS: Protein Creatinine Ratio Urine 0.91; Total Protein Urine Random 63.6 mg/dL (<=11.9)
[2024-09-18 12:56] LABS: Hematocrit 38.8 % (42.0-54.0); Hemoglobin 13.2 g/dL (14.0-18.0); Mean Corpuscular HGB Conc 34.0 g/dL (29.9-35.2); Mean Corpuscular Hemoglobin 31.2 pg (25.9-34.0); Mean Corpuscular Volume 91.7 fL (80.0-94.0); Platelet Count 209 10^3/uL (150-450); Red Blood Count 4.23 10^6/uL (4.70-6.10); White Blood Count 7.1 10^3/uL (4.0-11.0)
[2024-09-18 12:57] LABS: Cast Seen? NONE SEEN #/LPF (NONE SEEN); Crystals Seen? None Seen #/HPF (None Seen)
[2024-09-18 13:34] LABS: Albumin Level 3.7 g/dL (3.4-5.0); Anion Gap 11.0; Blood Urea Nitrogen 52.0 mg/dL (7.0-18.0); Calcium 9.4 mg/dL (8.5-10.1); Carbon Dioxide 31.0 mmol/L (21.0-32.0); Chloride 102 mmol/L (98-107); Estimated GFR (African America 20 (>=60 mL/min/1.73m^2); Estimated GFR (Non-African Ame 17 (>=60 mL/min/1.73m^2); Glucose 115 mg/dL (74-106); Magnesium 2.3 mg/dL (1.8-2.4); Potassium 4.0 mmol/L (3.5-5.1); Sodium 140 mmol/L (136-145); Uric Acid 13.4 mg/dL (3.5-7.2)
== END 2024-09-18 12:14 | disposition home or self-care (01) ==
LOC: LAB 12:14
PROVIDERS: PCP Internal Medicine; Visit Provider Internal Medicine
DX: I12.9 Hypertensive chronic kidney disease with stage 1 through stage 4 chronic kidney disease, or unspecified chronic kidney disease (principal); E79.0 Hyperuricemia without signs of inflammatory arthritis and tophaceous disease; N18.4 Chronic kidney disease, stage 4 (severe); N25.81 Secondary hyperparathyroidism of renal origin
CPT/HCPCS: 36415; 80069; 81001; 82306; 82570; 83735; 83970; 84156; 84550; 85027

== ENCOUNTER 2024-11-25 08:17 | Outpatient (OUT) | payer MEDICARE, OTHER, SELFPAY ==
--- OUTSIDE RECORDS SUMMARY | 2024-11-25 08:25 | XMS_ITS | CCD ---
Author Organization [facility] CliniSymi Care Team Providers Care Fire Information Officer Name Role Phone NATHALY, DR GANDHI Admitting Unavailable NATHALY, DR GANDHI Attending Unavailable NATHALY, DR GANDHI Primary Care Unavailable NATHALY, DR GANDHI Consulting Unavailable Nathaly, Ranjan Unavailable Ranjan Andersen DO Primary Care Provider Shivam ANGUIANO, Kurtis Smithit Provider Ai Orantes RN Other Provider Unavailable Dequan Kirkpatrick DO Other Provider Bhavik ANGUIANO, Keron Other Provider [phone] Gurjit Villagran MD Other Provider Suellen ANGUIANO, Mely Other Provider Yvan Mckeon MD Other Provider Hailey Weinberg APRN Other Provider Leonie Gaines MD Other Provider Geremias ANGUIANO, Lexi Leach Other Provider Bret Castañeda MD Other Provider Syd [facility], Susana Good Other Provider Jeff ANGUIANO, Felicia Other Provider David [address]NAGER DR[address]-C, Tavia Other Provider Unavailable Tobi Monroy MD Other Provider Noel Lilly MD Other Provider Gin Conrad MD Other Provider Luis Patel MD Other Provider Cathleen Kumari APRN Other Provider Belcik DO, Whitefield L Other Provider David Inman MD Other Provider Jn Yanes MD Attending Provider Ranjan Andersen DO Primary Care Provider Fabricio FOX, Echo Unavailable Unavailable Ranjan Andersen DO Primary Care Provider Shivam ANGUIANO, Kurtis Smithit Provider Lamberto FOX, Ai Other Provider Unavailable Dequan Kirkpatrick DO Other Provider Bhavik ANGUIANO, Keron Other Provider Tyshawn ANGUIANO, Gurjit Mike Other Provider Suellen ANGUIANO, Mely Other Provider Mike ANGUIANO, Yvan Other Provider Hailey Weinberg APRN Other Provider Leonie Gaines MD Other Provider Geremias ANGUIANO, Lexi Leach Other Provider Garry ANGUIANO, Bret Other Provider Syd [facility]-, Susana Good Other Provider Felicia Aguilar MD Other Provider David MANAGER DRIVE-C, Tavia Other Provider Unavailable Eliana ANGUIANO, Tobi Other Provider Vijaya ANGUIANO, Noel Other Provider Gin Conrad MD Other Provider Luis Patel MD Other Provider Cathleen Kumari APRN Other Provider Jhoank DO, Whitefield L Other Provider David Inman MD Other Provider Jn Yanes MD Attending Provider Ranjan Andersen DO Primary Care Provider Tobi Monroy MD Attending Provider Nathaly DO, Ranjan Attending Provider Nathaly DO, Ranjan Primary Care Provider Eliana ANGUIANO, Tobi Attending Provider Nathaly DO, Ranjan Attending Provider Nathaly DO, Ranjan Primary Care Provider Eliana ANGUIANO, Tobi Attending Provider Nathaly DO, Ranjan Primary Care Provider [phone] Nathaly RAMÍREZ, Ranjan Attending Provider [phone] Suellen ANGUIANO, Mely Other Provider Darrel ANGUIANO, Myke Toro Attending Provider [phone] Tobi Monroy Admitting Unavailable ElianaTobi Attending Unavailable [facility] Unavailable Mely Ken Admitting Unavailable Mely Ken Attending Unavailable [facility] Primary Care Unavailable Jn Yanes Attending Unavailable [facility] Primary [facility] Unavailable Ai Orantes Consulting Unavailable Kurtis Langley Admitting Unavailable Dequan Kirkpatrick Consulting Unavailable Keron Gutierres Consulting Unavailable Gurjit Villagran Consulting Unavail able Mely Ken Consulting Unavailable Yvan Mckeon Consulting Unavailab Hailey Garcia Consulting Unavailable Leonie Gaines Consulting Unavailable Lexi Archuleta Consulting Unavailab Bret Larsen Consulting Unavailable Susana Velarde Consulting Unavailable Felicia Aguilar Consulting Unavailable Tavia Hernandez Consulting Unavailable Eliana, Tobi Consulting Unavailable Noel Lilly Consulting Unavailable Gin Conrad Consulting Unavailable Luis Patel Consulting Unavailable Cathleen Kumari Consulting Unavailable Colt Curran Jr Consulting UnavailDavid Christiansen Consulting Unavaila ble Medications Current Medications Medication Drug Class(es) Dates Sig (Normalized) Sig (Original) apixaban 2.5 mg oral tablet (15 sources) Factor Xa Inhibitor Start: 04-16-2024 End: 07-08-2025 take 1 tablet by mouth twice daily aspirin 81 mg delayed release oral tablet (15 sources) Platelet Aggregation Inhibitor, Nonsteroidal Anti-inflammatory Drug Start: 04-16-2024 End: 07-08-2025 take 1 tablet by mouth once daily atorvastatin 10 mg oral tablet (20 sources) HMG-CoA Reductase Inhibitor Start: 06-27-2023 End: 04-23-2024 take 1 tablet by mouth once daily in the evening furosemide 40 mg oral tablet (20 sources) Loop Diuretic Start: 04-18-2024 End: 11-07-2024 take 1 tablet by mouth twice daily hydrALAZINE hydrochloride 25 mg oral tablet (20 sources) Arteriolar Vasodilator Start: 05-23-2024 take 1 tablet by mouth twice daily Start: 05-13-2024 End: 05-23-2024 take 1 tablet by mouth twice daily Hydralazine 25 mg tablet Discontinued 0 .ROUTE .COMPLEX May 13, 2024 10:20am May 23, 2024 1:05pm TAKE 1 TABLET BY MOUTH TWICE A DAY Start: 04-18-2024 End: 05-13-2024 take 1 tablet by mouth twice daily Hydralazine 25 mg Tablet Discontinued 25 MG PO Twice daily 60 April 18, 2024 1:00am May 13, 2024 10:20am 24 hr isosorbide mononitrate 30 mg extended release oral tablet (15 sources) Nitrate Vasodilator Start: 04-16-2024 End: 07-08-2025 take 1 tablet by mouth once daily, then take 1 tablet by mouth every twenty-four hours melatonin 5 mg oral tablet (20 sources) Start: 05-23-2024 take 1 tablet by abdirizak once daily at bedtime as needed Start: 05-13-2024 End: 05-23-2024 take 1 tablet by mouth once daily at bedtime as needed for sleep Melatonin 5 mg tablet Discontinued 0 .ROUTE .COMPLEX May 13, 2024 10:20am May 23, 2024 1:05pm TAKE 1 TABLET ORALLY DAILY AT BEDTIME NEEDED FOR SLEEP Start: 04-18-2024 End: 05-13-2024 take 1 tablet by mouth once daily at bedtime as needed for sleep Melatonin 5 mg Tablet Discontinued 5 MG PO Daily at bedtime as needed for sleep April 18, 2024 1:00am May 13, 2024 10:20am 24 hr metoprolol succinate 50 mg extended release oral tablet (20 sources) beta-Adrenergic Susie Start: 04-16-2024 End: 07-08-2025 take 1 tablet by mouth twice daily metoprolol succinate XL (Toprol-XL) 50 mg 24 hr tablet Indications: Persistent atrial fibrillation (Multi) , Essential hypertension , Cardiomyopathy, ischemic Take 1 tablet (50 mg) by mouth 2 times a day. 180 tablet 3 07/08/2024 07/08/2025 Active Multivitamin Adult (5 sources) Multivitamin Ford lt Active Multivitamin preparation (2 sources) Start: 06-27-2023 take 1 tablet by mouth once daily Multivitamin Active 1 TAB PO Daily June 27, 2023 12:00am Multivitamin tablet (14 sources) Start: 06-27-2023 take 1 tablet by mouth once daily Start: 06-27-2023 take 1 tablet by abdirizak th once daily Multivitamin tablet Active 1 TAB PO Daily June 27, 2023 12:00am Complies with drug therapy Start: 06-27-2023 take 1 tablet by abdirizak th once daily Multivitamin tablet Active 1 TAB PO Daily June 27, 2023 12:00am Start: 06-27-2023 take 1 tablet by abdirizak th once daily Multivitamin tablet Active 1 TAB PO Daily June 26, 2023 11:00pm multivitamin tablet (2 sources) take 1 tablet by mouth once daily multivitamin tablet Take 1 tablet by mouth once daily. Active microencapsulated potassium chloride 20 meq extended release oral tablet (20 sources) Start: 05-23-2024 take 1 tablet by mouth once daily Start: 05-13-2024 End: 05-23-2024 take 1 tablet by mouth once daily Potassium Chloride 20 mEq tablet,ER particles/crystals Discontinued 0 .ROUTE .COMPLEX May 13, 2024 10:19am May 23, 2024 1:05pm TAKE 1 TABLET BY MOUTH DAILY, TO START 04/19/24 WITH LASIX Start: 04-18-2024 End: 05-13-2024 Potassium Chloride (Klor-Con M20) 20 mEq Tablet,Er Particles/Crystals Discontinued 20 MEQ PO Daily April 18, 2024 1:00am May 13, 2024 10:19am To start 04/19/24 with lasix predniSONE 20 mg oral tablet (2 sources) Start: 10-29-2024 End: 10-30-2024 spironolactone 25 mg oral tablet (15 sources) Aldosterone Antagonist Start: 07-08-2024 End: 07-08-2025 take 0.5 tablet by mouth once daily spironolactone (Aldactone) 25 mg tablet Indications: Persistent atrial fibrillation (Multi) , Essential hypertension , Cardiomyopathy, ischemic Take 0.5 tablets (12.5 mg) by mouth once daily. 45 tablet 3 07/08/2024 07/08/2025 Active Start: 04-16-2024 take 0.5 tablet by m out once daily spironolactone (Aldactone) 25 mg tablet Take 0.5 tablets (12.5 mg) by mouth once daily. Active Completed/Discontinued Medications Medication Drug Class(es) Dates Sig (Normalized) Sig (Original) amiodarone hydrochloride 200 mg oral tablet (20 sources) Antiarrhythmic Start: 07-30-2024 End: 10-30-2024 take 1 tablet by mouth once daily amiodarone (Pacerone) 200 mg tablet Indications: Persistent atrial fibrillation (Multi) Take 1 tablet (200 mg) by mouth once daily. 90 tablet 1 07/30/2024 10/30/2024 Discontinued (Discontinued by another clinician) Start: 04-29-2024 End: 04-29-2025 take 0.5 tablet by mouth once daily amiodarone (Pacerone) 200 mg tablet Indications: Persistent atrial fibrillation (Multi) Take 0.5 tablets (100 mg) by mouth once daily. 45 tablet 3 04/29/2024 04/29/2025 Active Start: 04-29-2024 take 2 tablets by mo wah once daily, then take 2 tablets by mouth once daily Start: 04-16-2024 End: 04-29-2024 take 1 tablet by mouth three times daily, then take 1 tablet by mouth once daily Amiodarone 200 mg tablet Discontinued 200 MG PO Three times daily 42 April 16, 2024 1:00am April 29, 2024 12:37pm Amiodarone 200 mg TID for 1 week, then decrease to 200 mg daily. take 1 tablet by abdirizak th once daily amiodarone (Pacerone) 100 mg tablet Take 1 tablet (100 mg) by mouth once daily. Active End: 04-29-2024 take 1 tablet by mouth once daily amiodarone (Pacerone) 200 mg tablet Take 1 tablet (200 mg) by mouth once daily. 200mg 3x a day for 1 week then 200mg daily 04/29/2024 Discontinued (Reorder) amLODIPine 10 mg oral tablet (20 sources) Dihydropyridine Calcium Channel Susie Start: 11-05-2023 End: 04-18-2024 take 1 tablet by mouth once daily Amlodipine 10 mg tablet Discontinued 0 .ROUTE .COMPLEX December 15, 2023 4:25pm April 18, 2024 [...] Start: 07-19-2022 Lidocaine 30 2022 30 mg Potassium Chloride 20 mEq tablet,ER particles/crystals (3 sources) Start: 05-13-2024 End: 05-23-2024 take 1 tablet by mouth once daily Potassium Chloride 20 mEq tablet,ER particles/crystals Discontinued 0 .ROUTE .COMPLEX May 13, 2024 10:19am May 23, 2024 1:05pm TAKE 1 TABLET BY MOUTH DAILY, TO START 04/19/24 WITH LASIX triamcinolone acetonide 10 mg/ml injectable suspension (7 sources) Corticosteroid Start: 02-10-2023 Kenalog Jan, 1 mL Start: 07-19-2022 Kenalog-40 June, 40 mg Problems Active Problems Problem Classification Problem Date Documented Date Episodic/Chronic Acute myocardial infarction (20 sources) Myocardial infarction; Translations: [Non-ST elevation (NSTEMI) myocardial infarction] Onset: 5 04-10-2024 Chronic Cardiac dysrhythmias (20 sources) Atrial tachycardia; Translations: [Atrial tachycardia] Onset: 5 04-09-2024 Chronic Comment on above: PFT: FEV1/FVC 81%, F EV1 87%, TLC 99%, RV/TLC 52%, DLCO 118% - 10/2024 Chronic kidney disease (20 sources) Chronic kidney [...] 03/2024 Coronary atherosclerosis and other heart disease (20 sources) Ischemic myocardial dysfunction; Translations: [Ischemic cardiomyopathy] Onset: 5 04-21-2024 Chronic Comment on above: NSTEMI - 03/2024NM st ress: reversible anterior wall defect - 03/2024,Echo: LVEF 35-40%, normal RV size - 03/2024 Deficiency and other anemia (14 sources) Anemia; Translations: [Anemia, unspecified] 05-06-2024 Episodic Diseases of mouth; excluding dental (3 sources) Recurrent aphthous stomatitis; Translations: [Recurrent oral aphthae] Episodic Disorders of lipid metabolism (20 sources) Pure hypercholesterolemia; Translations: [Familial hypercholesterolemia] Onset: 5 06-25-2023 Chronic Esophageal disorders (3 sources) Esophageal disorders; Translations: [Gastro-esophageal reflux disease with esophagitis, without bleeding] Onset: Essential hypertension (20 sources) Essential hypertension; Translations: [Essential (primary) hypertension] Onset: 5 Chronic Genitourinary symptoms and ill-defined conditions (19 sources) Asymptomatic bacteriuria; Translations: [Bacteriuria] 07-01-2024 Episodic Hyperplasia of prostate (3 sources) Lower urinary tract symptoms due to benign prostatic hypertrophy; Translations: [Benign prostatic hyperplasia with lower urinary tract symptoms] Chronic Hypertension with complications and secondary hypertension (20 sources) Hypertensive chronic kidney disease with stage [...] right hip] Onset: 5 Chronic Other aftercare (8 sources) Taking high risk medication; Translations: [Other fpc (current) drug therapy] Onset: 5 04-29-2024 Episodic Other aftercare (3 sources) Long-term current use of anticoagulant; Translations: [care home (current) use of anticoagulants] Onset: 5 04-29-2024 Episodic Other circulatory disease (3 sources) History of cerebrovascular accident without residual deficits; Translations: [Personal history of transient ischemic attack (TIA), and cerebral infarction without residual deficits] Episodic Other connective tissue disease (5 sources) Bilateral plantar fasciitis; Translations: [Plantar fascial fibromatosis] Episodic Other connective tissue disease (1 source) Plantar fascial fibromatosis Episodic Other connective tissue disease (2 sources) Pain in both feet; Translations: [Pain in right foot] 10-23-2024 Episodic Other diseases of kidney and ureters (20 sources) Secondary hyperparathyroidism; Translations: [Secondary hyperparathyroidism of renal origin] 04-23-2024 Chronic Other diseases of kidney and ureters (9 sources) Secondary hyperparathyroidism of renal origin; Translations: [Secondary hyperparathyroidism (of renal origin)] 04-23-2024 Chronic Other ear and sense organ disorders (8 sources) Decreased hearing ; Translations: [Unspecified hearing loss, bilateral] 09-18-2024 Chronic Other ear and sense organ disorders (20 sources) Impacted cerumen; Translations: [Impacted cerumen, bilateral] Resolved: 2 08-06-2024 Episodic Other ear and sense organ disorders (2 sources) Impacted cerumen, bilateral Episodic Other ear and sense organ disorders (3 sources) Otalgia; Translations: [Otalgia, left ear] Episodic Other lower respiratory disease (13 sources) Acute pulmonary edema; Translations: [Acute pulmonary edema] 04-11-2024 Episodic Other non-traumatic joint disorders (16 sources) Arthralgia of the lower leg; Translations: [Pain in right knee] Episodic Other non-traumatic joint disorders (14 sources) Pain in right knee; Translations: [Pain in both knees] Episodic Other non-traumatic joint disorders (2 sources) Pain in left knee Episodic Other non-traumatic joint disorders (3 sources) Pain in right hip joint; Translations: [Pain in right hip] Episodic Other non-traumatic joint disorders (10 sources) Pain in left shoulder; Translations: [Left shoulder pain] 06-24-2024 Episodic Other nutritional; endocrine; and metabolic disorders (3 sources) Overweight; Translations: [Overweight] Episodic Other nutritional; endocrine; and metabolic disorders (4 sources) Overweight in adulthood with body mass index of 25 or more but less than 30; Translations: [Body mass index (BMI) 27.0-27.9, adult] Onset: 5 04-29-2024 Episodic Other nutritional; endocrine; and metabolic disorders (18 sources) Hyperuricemia; Translations: [Hyperuricemia without signs of inflammatory arthritis and tophaceous disease] 05-23-2024 Episodic Other nutritional; endocrine; and metabolic disorders (4 sources) Hyperuricemia without signs of inflammatory arthritis and tophaceous disease; Translations: [Other abnormal blood chemistry] 05-23-2024 Episodic Other screening for suspected conditions (not mental disorders or infectious disease) (6 sources) Encounter for screening for malignant neoplasm of prostate; Translations: [Cardiovascular stress test abnormal] Onset: 2 04-29-2024 Episodic Other upper respiratory disease (3 sources) Seasonal allergic rhinitis; Translations: [Other seasonal allergic rhinitis] Onset: 7 Chronic Marely-; endo-; and myocarditis; cardiomyopathy (except that caused by tuberculosis or sexually transmitted disease) (9 sources) Cardiomyopathy; Translations: [Cardiomyopathy, unspecified] Onset: 5 04-11-2024 Chronic Residual codes; unclassified (3 sources) Tobacco user; Translations: [Tobacco use] Episodic Residual codes; unclassified (2 sources) Never smoked tobacco; Translations: [Other specified health status] Onset: 5 10-30-2024 Episodic Spondylosis; intervertebral disc disorders; other back problems (8 sources) Lumbar spondylosis; Translations: [Spondylosis without myelopathy or radiculopathy, lumbar region] Chronic Sprains and strains (16 sources) Late effect of sprain AND/OR strain without tendon injury; Translations: [Strain of left quadriceps muscle, fascia and tendon, sequela] 06-24-2024 Episodic Unclassified (7 sources) A [facility] screening has identified you as [...] Four Ways to Beat the Frailty Risk [email or web address] -fra [email or web address] 04-16-2024 Unclassified (1 source) Pyuria; Translations: [Pyuria] Onset: 5 Unclassified (1 source) Supraventricular tachycardia, unspecified; Translations: [Supraventricular tachycardia, unspecified] Onset: 5 Past or Other Problems Problem Classification Problem Date Documented Da te Episodic/Chronic Acute and unspecified renal failure (20 sources) Acute renal failure syndrome; Translations: [Acute kidney failure, unspecified] Onset: 04-10-2024 04-12-2024 Episodic Acute bronchitis (3 sources) Acute bronchitis; Translations: [Acute bronchitis, unspecified] Onset: 04-29-2013 Episodic Cardiac dysrhythmias (4 sources) Tachycardia; Translations: [Tachycardia, unspecified] Onset: 04-29-2024 Resolved: 04-29-2024 04-29-2024 Episodic Joint disorders and dislocations; trauma-related (3 [...] Translations: [Cough, unspecified] Onset: 04-19-2016 Episodic Other lower respiratory disease (8 sources) Acute pulmonary edema; Translations: [Acute edema of lung, unspecified] Onset: 04-10-2024 04-18-2024 Episodic Other non-traumatic joint disorders (11 sources) Pain in unspecified knee; Translations: [Knee pain] Onset: 04-10-2024 06-25-2023 Episodic Other skin disorders (3 sources) Actinic keratosis; Translations: [Actinic keratosis] Onset: 03-24-2017 Episodic Other upper respiratory infections (3 sources) Acute pharyngitis; Translations: [Acute pharyngitis, unspecified] Onset: 04-29-2013 Episodic Respiratory failure; insufficiency; arrest (adult) (20 sources) Acute respiratory failure; Translations: [Acute respiratory failure with hypoxia] Onset: 04-10-2024 04-11-2024 Episodic Unclassified (2 sources) Onset: 04-29-2024 04-29-2024 Urinary tract infections (11 sources) Urinary tract infectious disease; Translations: [Urinary tract infection, site not specified] Onset: 04-10-2024 04-14-2024 Episodic Results Test Name Value Interpretation Reference Range Facility Alanine Aminotransferaseon 0 11-12-2024 ALT [Catalytic activity/Vol] 21 U/L Normal 7-52 [facility] Comment on above: Performed By: #### C SHERWIN BUCHANANONUAPLUS #### [address] Basic Metabolic Panelon 09-2 Anion gap [Moles/Vol] 10.5 mmol/L Normal 6.0-15.0 [facility] Comment on above: Performed By: #### C SHERWIN BUCHANANONUAPLUS #### [facility] [address] [place] [address] [place] Calcium [Mass/Vol] 9.1 mg/dL Normal 8.6-10.3 [facility] Comment on above: Performed By: #### C UU, ADDONUAPLUS #### [facility] [address] [place] [id number] [place] Chloride [Moles/Vol] 100 mmol/L Normal 98-107 [facility] Comment on above: Performed By: #### C UU, ADDONUAPLUS #### [facility] [address] [place] [address] [place] CO2 [Moles/Vol] 33.2 mmol/L High 21.0-31.0 [facility] Comment on above: Performed By: #### C UU, ADDONUAPLUS #### [place] [address] [place] Creatinine [Mass/Vol] 2.99 mg/dL High 0.70-1.30 [facility] Comment on above: Performed By: #### C UU, ADDONUAPLUS #### [place] [address] [place] GFR/1.73 sq M.predicted MDRD (S/P/Bld) [Vol rate/Area] 20.441 mL/min/{1.73_m2} Normal [facility] Comment on above: Performed By: #### C UU, ADDONUAPLUS #### [place] [address] [place] Glucose [Mass/Vol] 89 mg/dL Normal 70-100 [facility] Comment on above: Result Comment: [place] om Glucose Reference Range is dependent on time and content of last meal. Glucose of more than 200 mg/dL in a nonstressed, ambulatory subject supports the diagnosis of Diabetes Mellitus. ADA recommended reference range Performed By: #### C UU, ADDONUAPLUS #### [facility] [address] [place] [address] [place] Potassium [Moles/Vol] 3.7 mmol/L Normal 3.5-5.1 [facility] Comment on above: Performed By: #### C UU, ADDONUAPLUS #### [address] Sodium [Moles/Vol] 140 mmol/L Normal 136-145 [facility] Comment on above: Performed By: #### C UU, ADDONUAPLUS #### [facility] [address] [place] [address] Urea nitrogen [Mass/Vol] 57 mg/dL High 7-25 [facility] Comment on above: Performed By: #### C UU, ADDONUAPLUS #### [address] Thyroid Stimulating Hormoneo n 11-12-2024 TSH Qn 1.20 m[IU]/L Normal 0.45-5.33 [facility] Comment on above: Result Comment: PERF ORMED BY: [place] [address] PATHOLOGIST CLAY THROWER GERA MESSINA M.D. Performed By: #### C UU, ADDONUAPLUS #### [address] XR chest 2V*on 11-12-2024 XR chest 2V* [facility] [place] [address] [place] [address] XRay Report Signed Patient: Corwin Muller MR#: [id number] : 1945 Acct:[id number] Age/Sex: 79 / M ADM Date: 11/12/24 Loc: RT Room: Type: [facility] Attending Dr: Mely Ken MD Copies to: Mely Ken MD Ordering Provider: Mely Ken MD Date of Service: 11/12/24 XR/XR chest 2V*: Z79.899, I48.19 Chest 2 views CLINICAL HISTORY: Long-term medication use. COMPARISON: Chest 04/10/2024 FINDINGS: Heart normal in size. Lungs are clear. No free air. Degenerative change involving the thoracic spine. XR/XR chest 2V* IMPRESSION: NO ACUTE CARDIOPULMONARY ABNORMALITY. Impression dictated by: Luis Vidal Jr., D.O. 11/12/2024 4:17 PM Dictation Location: [place] [address] Transcribed By: [facility] 11/12/24 1617 Dictated By: Luis Vidal Jr, DO 11/12/24 1616 Signed By: 11/12/24 1617 Normal [facility] ECG 12 Leadon 10-30-2024 Normal sinus rhythm with borderline first-degree AV block questionable old septal infarct [facility] Work Phone: Urine Cultureon 09-23-2024 Bacteria identified Cx Nom (U) Urine Culture Results >100,000 col/ml Mixed Bacterial Skin Contaminants 2 Days PERFORMED BY: [place] [address] PATHOLOGIST CLAY THROWER GERA MESSINA M.D. Normal [facility] Comment on above: Performed By: #### C UU #### [address] Urine cultureOrdered By: Qing Monroy on 09-23-2024 Bacteria identified Cx Nom (U) [facility] Erythrocyte distribution wid th Auto (RBC) [Ratio]Ordered By: Tobi Monroy on 09-18-2024 Erythrocyte distribution width (RBC) [Ratio] 12.8 % 11.0-15.0 [facility] Estimated glomerular filtrat ion rate (GFR) non- AmericanOrdered By: Tobi Monroy on 09-18-2024 GFR/1.73 sq M.predicted among non-blacks MDRD (S/P/Bld) [Vol rate/Area] 17 mL/min/{1.73_m2} Low >=60 mL/min/1.7 3m 2 [facility] Hematocrit Auto (Bld) [Volum e fraction]Ordered By: Tobi Monroy on 09-18-2024 Hematocrit (Bld) [Volume fraction] 38.8 % Low 42.0-54.0 [facility] Hemoglobin [Mass/volume] in BloodOrdered By: Tobi Monroy on 09-18-2024 Hemoglobin (Bld) [Mass/Vol] 13.2 g/dL Low 14.0-18.0 [facility] Laboratory - Chemistry and C hemistry - challengeOrdered By: Tobi Monroy on 09-18-2024 Albumin [Mass/Vol] 3.7 g/dL 3.4-5.0 [facility] Calcium [Mass/Vol] 9.4 mg/dL 8.5-10.1 [facility] Chloride [Moles/Vol] 102 mmol/L 98-107 [facility] CO2 [Moles/Vol] 31.0 mmol/L 21.0-32.0 [facility] Creatinine [Mass/Vol] 3.56 mg/dL High 0.70-1.30 [facility] GFR/1.73 sq M.predicted MDRD (S/P/Bld) [Vol rate/Area] 20 mL/min/{1.73_m2} Low >=60 mL/min/1.7 3m 2 [facility] Glucose [Mass/Vol] 115 mg/dL High 74-106 [facility] Magnesium [Mass/Vol] 2.3 mg/dL 1.8-2.4 [facility] Potassium [Moles/Vol] 4.0 mmol/L 3.5-5.1 [facility] Sodium [Moles/Vol] 140 mmol/L 136-145 [facility] Urate [Mass/Vol] 13.4 mg/dL High 3.5-7.2 [facility] Urea nitrogen [Mass/Vol] 52.0 mg/dL High 7.0-18.0 [facility] Urea nitrogen/Creatinine [Mass ratio] 14.6 mg/mg [facility] Bilirubin Ql (U) Negative NEGATIVE [facility] Glucose (U) [Mass/Vol] Negative NEGATIVE [facility] Ketones Ql (U) Negative NEGATIVE [facility] pH (U) 6.0 [pH] 5.0-9.0 [facility] Specific gravity (U) [Rel density] 1.015 1.005-1.02 5 [facility] Urobilinogen Qn (U) 0.2 {Peri'U}/dL 0.2-1.0 [facility] Laboratory - Specimen inform ationOrdered By: Tobi Monroy on 09-18-2024 Appearance (U) CLOUDY Abnormal CLEAR [facility] Color (U) YELLOW YELLOW [facility] Laboratory - UrinalysisOrder ed By: Tobi Monroy on 09-18-2024 Leukocyte esterase Test strip Ql (U) LARGE Abnormal NEGATIVE [facility] Mucus Ql (Urine sed) NONE SEEN NONE SEEN [facility] Nitrite Ql (U) Positive Abnormal NEGATIVE [facility] Protein (U) [Mass/Vol] 63.6 mg/dL High <=11.9 [facility] Protein Ql (U) TRACE mg/dL NEG/TRACE [facility] Leukocytes [#/volume] correc ariana for nucleated erythrocytes in Blood by Automated counOrdered By: Tobi Monroy on 09-18-2024 WBC corrected for nucl RBC Auto (Bld) [#/Vol] 7.1 10 3/uL 4.0-11.0 [facility] MCH Auto (RBC) [Entitic mass ]Ordered By: Tobi Monroy on 09-18-2024 MCH (RBC) [Entitic mass] 31.2 pg 25.9-34.0 [facility] MCHC Auto (RBC) [Mass/Vol]Or dered By: Tobi Monroy on 09-18-2024 MCHC (RBC) [Mass/Vol] 34.0 g/dL 29.9-35.2 [facility] MCV Auto (RBC) [Entitic vol] Ordered By: Tobi Monroy on 09-18-2024 MCV (RBC) [Entitic vol] 91.7 fL 80.0-94.0 [facility] No Panel InformationOrdered By: Tobi Monroy on 09-18-2024 25-Hydroxy Vitamin D Total 38.3 ng/mL [facility] Comment on above: <20 ng/mL Vit D defi cient20-<30 ng/mL Vit D -646 ng/mL Vit D sufficient>100 ng/mL Potential Toxicity Parathyroid Hormone (Intact) 94 pg/mL Abnormal 15-65 [facility] Comment on above: Performed at: [facility] [address] [id number] Director: Polo Goldberg PhD, Phone: [phone] Phosphorus Level 3.6 mg/dL 2.6-4.7 [facility] Urine Bacteria SMALL #/HPF Abnormal NONE SEEN [facility] Urine Occult Blood SMALL Abnormal NEGATIVE [facility] Urine Other Casts NONE SEEN #/LPF NONE SEEN [facility] Urine Other Crystals None Seen #/HPF None Seen [facility] Urine Random Creatinine 69.59 mg/dL 20.0 0-300. 00 [facility] Urine RBC 2-5 #/HPF Abnormal 0-2 [facility] Urine Squamous Epithelial Cells RARE #/LPF NONE/RARE [facility] Urine WBC >100 #/HPF Abnormal NONE SEEN [facility] Platelet mean volume Auto (B ld) [Entitic vol]Ordered By: Tobi Monroy on 09-18-2024 Platelet mean volume (Bld) [Entitic vol] 10.1 fL 9.5-13.5 [facility] Platelets Auto (Bld) [#/Vol] Ordered By: Tobi Eliana on 09-18-2024 Platelets (Bld) [#/Vol] 209 10 3/uL 150-450 [facility] RBC Auto (Bld) [#/Vol]Ordere d By: Tobi Eliana on 09-18-2024 RBC (Bld) [#/Vol] 4.23 10 6/uL Low 4.70-6.10 [facility] Serum or plasma anion gap de terminationOrdered By: Tobi Eliana on 09-18-2024 Anion gap [Moles/Vol] 11.0 mmol/L [facility] Urine protein/creatinine rat ioOrdered By: Tobi Eliana on 09-18-2024 Protein/Creatinine (U) [Ratio] 0.91 [facility] Erythrocyte distribution wid th Auto (RBC) [Ratio]on 06-24-2024 Erythrocyte distribution width (RBC) [Ratio] Erythrocyte distribution width [Ratio] by Automated count 11.0-15.0 [facility] Erythrocyte distribution width (RBC) [Ratio] 13.8 % 11.0-15.0 [facility] Estimated glomerular filtrat ion rate (GFR) non- Americanon 06-24-2024 GFR/1.73 sq M.predicted among non-blacks MDRD (S/P/Bld) [Vol rate/Area] Estimated glomerular filtration rate (GFR) non- Low >=60 mL/min/1.7 3m 2 [facility] GFR/1.73 sq M.predicted among non-blacks MDRD (S/P/Bld) [Vol rate/Area] 21 mL/min/{1.73_m2} Low >=60 mL/min/1.7 3m 2 [facility] Hematocrit Auto (Bld) [Volum e fraction]on 06-24-2024 Hematocrit (Bld) [Volume fraction] Hematocrit [Volume Fraction] of Blood by Automated count 42.0-54.0 [facility] Hematocrit (Bld) [Volume fraction] 44.4 % 42.0-54.0 [facility] Hemoglobin [Mass/volume] in Bloodon 06-24-2024 Hemoglobin (Bld) [Mass/Vol] Hemoglobin [Mass/volume] in Blood 14.0-18.0 [facility] Hemoglobin (Bld) [Mass/Vol] 15.0 g/dL 14.0-18.0 [facility] Laboratory - Chemistry and C hemistry - challengeon 06-24-2024 Albumin [Mass/Vol] 3.7 g/dL 3.4-5.0 [facility] Calcium [Mass/Vol] 9.1 mg/dL 8.5-10.1 [facility] Chloride [Moles/Vol] 102 mmol/L 98-107 [facility] CO2 [Moles/Vol] 29.4 mmol/L 21.0-32.0 [facility] Creatinine [Mass/Vol] 2.94 mg/dL High 0.70-1.30 [facility] GFR/1.73 sq M.predicted MDRD (S/P/Bld) [Vol rate/Area] 25 mL/min/{1.73_m2} Low >=60 mL/min/1.7 3m 2 [facility] Glucose [Mass/Vol] 102 mg/dL 74-106 [facility] Magnesium [Mass/Vol] 2.1 mg/dL 1.8-2.4 [facility] Potassium [Moles/Vol] 3.8 mmol/L 3.5-5.1 [facility] Sodium [Moles/Vol] 142 mmol/L 136-145 [facility] Urate [Mass/Vol] 12.5 mg/dL High 3.5-7.2 [facility] Urea nitrogen [Mass/Vol] 49.0 mg/dL High 7.0-18.0 [facility] Urea nitrogen/Creatinine [Mass ratio] 16.7 mg/mg [facility] Bilirubin Ql (U) Negative NEGATIVE [facility] Glucose (U) [Mass/Vol] Negative NEGATIVE [facility] Ketones Ql (U) Negative NEGATIVE [facility] pH (U) 6.0 [pH] 5.0-9.0 [facility] Specific gravity (U) [Rel density] 1.010 1.005-1.02 5 [facility] Urobilinogen Qn (U) 0.2 {Peri'U}/dL 0.2-1.0 [facility] Laboratory - Specimen inform ationon 06-24-2024 Appearance (U) CLEAR CLEAR [facility] Color (U) LT. YELLOW YELLOW [facility] Laboratory - Urinalysison Leukocyte esterase Test strip Ql (U) MODERATE Abnormal NEGATIVE [facility] Mucus Ql (Urine sed) NONE SEEN NONE SEEN [facility] Nitrite Ql (U) Positive Abnormal NEGATIVE [facility] Protein (U) [Mass/Vol] 15.7 mg/dL High <=11.9 [facility] Protein Ql (U) Negative NEG/TRACE [facility] Leukocytes [#/volume] correc ariana for nucleated erythrocytes in Blood by Automated counon 06-24-2024 WBC corrected for nucl RBC Auto (Bld) [#/Vol] Leukocytes [#/volume] corrected for nucleated erythrocytes in Blood by Automated coun 4.0-11.0 [facility] WBC corrected for nucl RBC Auto (Bld) [#/Vol] 7.6 10 3/uL 4.0-11.0 [facility] MCH Auto (RBC) [Entitic mass ]on 06-24-2024 MCH (RBC) [Entitic mass] MCH [Entitic mass] by Automated count 25.9-34.0 [facility] MCH (RBC) [Entitic mass] 30.1 pg 25.9-34.0 [facility] MCHC Auto (RBC) [Mass/Vol]on 06-24-2024 MCHC (RBC) [Mass/Vol] MCHC [Mass/volume] by Automated count 29.9-35.2 [facility] MCHC (RBC) [Mass/Vol] 33.8 g/dL 29.9-35.2 [facility] MCV Auto (RBC) [Entitic vol] on 06-24-2024 MCV (RBC) [Entitic vol] MCV [Entitic vol ume] by Automated count 80.0-94.0 [facility] MCV (RBC) [Entitic vol] 89.0 fL 80.0-94.0 [facility] No Panel Informationon 06-24 25-Hydroxy Vitamin D Total 37.9 ng/mL [facility] Comment on above: <20 ng/mL Vit D defi cient20-<30 ng/mL Vit D [id number] ng/mL Vit D sufficient>100 ng/mL Potential Toxicity Parathyroid Hormone (Intact) 93 pg/mL Abnormal 15-65 [facility] Comment on above: Performed at: - [address] [id number] Director: Polo Goldberg PhD, Phone: [phone] Phosphorus Level 3.3 mg/dL 2.6-4.7 [facility] Urine Bacteria LARGE #/HPF Abnormal NONE SEEN [facility] Urine Occult Blood TRACE-I NEGATIVE [facility] Urine Other Casts NONE SEEN #/LPF NONE SEEN [facility] Urine Other Crystals None Seen #/HPF None Seen [facility] Urine Random Creatinine 55.37 mg/dL 20.0 0-300. 00 [facility] Urine RBC NONE SEEN #/HPF 0-2 [facility] Urine Squamous Epithelial Cells RARE #/LPF NONE/RARE [facility] Urine WBC 50-75 #/HPF Abnormal NONE SEEN [facility] Platelet mean volume Auto (B ld) [Entitic vol]on 06-24-2024 Platelet mean volume (Bld) [Entitic vol] Platelet mean volume [Entitic volume] in Blood by Automated count Low 9.5-13.5 [facility] Platelet mean volume (Bld) [Entitic vol] 9.3 fL Low 9.5-13.5 [facility] Platelets Auto (Bld) [#/Vol] on 06-24-2024 Platelets (Bld) [#/Vol] Platelets [#/vol ume] in Blood by Automated count 150-450 [facility] Platelets (Bld) [#/Vol] 204 10 3/uL 150-450 [facility] RBC Auto (Bld) [#/Vol]on RBC (Bld) [#/Vol] Erythrocytes [#/volu me] in Blood by Automated count 4.70-6.10 [facility] RBC (Bld) [#/Vol] 4.99 10 6/uL 4.70-6.10 [facility] Serum or plasma anion gap de terminationon 06-24-2024 Anion gap [Moles/Vol] Serum or plasma an ion gap determination [facility] Anion gap [Moles/Vol] 14.4 mmol/L [facility] Urine protein/creatinine rat ioon 06-24-2024 Protein/Creatinine (U) [Ratio] Urine protein/creatinine ratio [facility] Protein/Creatinine (U) [Ratio] 0.28 [facility] Estimated glomerular filtrat ion rate (GFR) non- Americanon 05-13-2024 GFR/1.73 sq M.predicted among non-blacks MDRD (S/P/Bld) [Vol rate/Area] Estimated glomerular filtration rate (GFR) non- Low >=60 mL/min/1.7 3m 2 [facility] Laboratory - Chemistry and C hemistry - challengeon 05-13-2024 Albumin [Mass/Vol] 4.0 g/dL 3.4-5.0 [facility] Calcium [Mass/Vol] 9.3 mg/dL 8.5-10.1 [facility] Chloride [Moles/Vol] 103 mmol/L 98-107 [facility] CO2 [Moles/Vol] 32.8 mmol/L High 21.0-32.0 [facility] Creatinine [Mass/Vol] 3.11 mg/dL High 0.70-1.30 [facility] GFR/1.73 sq M.predicted MDRD (S/P/Bld) [Vol rate/Area] 24 mL/min/{1.73_m2} Low >=60 mL/min/1.7 3m 2 [facility] Glucose [Mass/Vol] 81 mg/dL 74-106 [facility] Magnesium [Mass/Vol] 2.3 mg/dL 1.8-2.4 [facility] Potassium [Moles/Vol] 4.3 mmol/L 3.5-5.1 [facility] Sodium [Moles/Vol] 142 mmol/L 136-145 [facility] Urate [Mass/Vol] 12.5 mg/dL High 3.5-7.2 [facility] Urea nitrogen [Mass/Vol] 48.0 mg/dL High 7.0-18.0 [facility] Urea nitrogen/Creatinine [Mass ratio] 15.4 mg/mg [facility] No Panel Informationon 05-13 25-Hydroxy Vitamin D Total 41.2 ng/mL [facility] Comment on above: <20 ng/mL Vit D defi cient20-<30 ng/mL Vit D [id number] ng/mL Vit D sufficient>100 ng/mL Potential Toxicity Parathyroid Hormone (Intact) 108 pg/mL Abnormal 15-65 [facility] Comment on above: Performed at: [address] [id number] Director: Polo Goldberg PhD, Phone: [phone] Phosphorus Level 3.5 mg/dL 2.6-4.7 [facility] Serum or plasma anion gap de terminationon 05-13-2024 Anion gap [Moles/Vol] Serum or plasma an ion gap determination [facility] Basophils Auto (Bld) [#/Vol] on 05-07-2024 Basophils (Bld) [#/Vol] Automated basophil count 0.0-0.1 [facility] Basophils/100 WBC Auto (Bld) on 05-07-2024 Basophils/100 WBC (Bld) Automated basophil % 0. 2-2.0 [facility] Eosinophils/100 WBC Auto (Bl d)on 05-07-2024 Eosinophils/100 WBC (Bld) Automated eosinophil % High 0.9-7.0 [facility] Erythrocyte distribution wid th Auto (RBC) [Ratio]on 05-07-2024 Erythrocyte distribution width (RBC) [Ratio] Erythrocyte distribution width [Ratio] by Automated count 11.0-15.0 [facility] Estimated glomerular filtrat ion rate (GFR) non- Americanon 05-07-2024 GFR/1.73 sq M.predicted among non-blacks MDRD (S/P/Bld) [Vol rate/Area] Estimated glomerular filtration rate (GFR) non- Low >=60 mL/min/1.7 3m 2 [facility] Hematocrit Auto (Bld) [Volum e fraction]on 05-07-2024 Hematocrit (Bld) [Volume fraction] Hematocrit [Volume Fraction] of Blood by Automated count 42.0-54.0 [facility] Hemoglobin [Mass/volume] in Bloodon 05-07-2024 Hemoglobin (Bld) [Mass/Vol] Hemoglobin [Mass/volume] in Blood 14.0-18.0 [facility] Laboratory - Chemistry and C hemistry - challengeon 05-07-2024 Calcium [Mass/Vol] 9.0 mg/dL 8.5-10.1 [facility] Chloride [Moles/Vol] 102 mmol/L 98-107 [facility] CO2 [Moles/Vol] 26.8 mmol/L 21.0-32.0 [facility] Creatinine [Mass/Vol] 3.10 mg/dL High 0.70-1.30 [facility] Ferritin [Mass/Vol] 231.0 ng/mL 26.0-388.0 [facility] GFR/1.73 sq M.predicted MDRD (S/P/Bld) [Vol rate/Area] 24 mL/min/{1.73_m2} Low >=60 mL/min/1.7 3m 2 [facility] Glucose [Mass/Vol] 130 mg/dL High 74-106 [facility] Potassium [Moles/Vol] 4.0 mmol/L 3.5-5.1 [facility] Sodium [Moles/Vol] 140 mmol/L 136-145 [facility] Urea nitrogen [Mass/Vol] 42.0 mg/dL High 7.0-18.0 [facility] Urea nitrogen/Creatinine [Mass ratio] 13.5 mg/mg [facility] Laboratory - Hematology and Cell countson 05-07-2024 Immature granulocytes/100 WBC (Bld) 0.4 % 0.0-0.5 [facility] Leukocytes [#/volume] correc airana for nucleated erythrocytes in Blood by Automated counon 05-07-2024 WBC corrected for nucl RBC Auto (Bld) [#/Vol] Leukocytes [#/volume] corrected for nucleated erythrocytes in Blood by Automated coun 4.0-11.0 [facility] Lymphocytes Auto (Bld) [#/Vo l]on 05-07-2024 Lymphocytes (Bld) [#/Vol] Lymphocytes [#/volume] in Blood by Automated count 1.2-3.8 [facility] Lymphocytes/100 WBC Auto (Bl d)on 05-07-2024 Lymphocytes/100 WBC (Bld) Lymphocytes/100 leukocytes in Blood by Automated count 20.5-60.0 [facility] MCH Auto (RBC) [Entitic mass ]on 05-07-2024 MCH (RBC) [Entitic mass] MCH [Entitic mass] by Automated count 25.9-34.0 [facility] MCHC Auto (RBC) [Mass/Vol]on 05-07-2024 MCHC (RBC) [Mass/Vol] MCHC [Mass/volume] by Automated count 29.9-35.2 [facility] MCV Auto (RBC) [Entitic vol] on 05-07-2024 MCV (RBC) [Entitic vol] MCV [Entitic vol ume] by Automated count 80.0-94.0 [facility] Monocytes Auto (Bld) [#/Vol] on 05-07-2024 Monocytes (Bld) [#/Vol] Automated blood monocyte count 0.3-0.8 [facility] Monocytes/100 WBC Auto (Bld) on 05-07-2024 Monocytes/100 WBC (Bld) Automated monocyte % 1. 7-12.0 [facility] Neutrophils Auto (Bld) [#/Vo l]on 05-07-2024 Neutrophils (Bld) [#/Vol] Neutrophils [#/volume] in Blood by Automated count 1.4-6.5 [facility] Neutrophils/100 WBC Auto (Bl d)on 05-07-2024 Neutrophils/100 WBC (Bld) Automated neutrophil % 43.0-75.0 [facility] No Panel Informationon 05-07 Eosinophils # (Auto) 0.5 10 3/uL 0.0-0.7 [facility] Immature Granulocyte # (Auto) 0.03 10 3/uL 0.00-0.03 [facility] Platelet mean volume Auto (B ld) [Entitic vol]on 05-07-2024 Platelet mean volume (Bld) [Entitic vol] Platelet mean volume [Entitic volume] in Blood by Automated count 9.5-13.5 [facility] Platelets Auto (Bld) [#/Vol] on 05-07-2024 Platelets (Bld) [#/Vol] Platelets [#/vol ume] in Blood by Automated count 150-450 [facility] RBC Auto (Bld) [#/Vol]on RBC (Bld) [#/Vol] Erythrocytes [#/volu me] in Blood by Automated count 4.70-6.10 [facility] Serum or plasma anion gap de terminationon 05-07-2024 Anion gap [Moles/Vol] Serum or plasma an ion gap determination [facility] ECG 12 [place] 04-29-2024 Mild sinus bradycardia CP [facility] Work Phone: Estimated glomerular filtrat ion rate (GFR) non- Americanon 04-22-2024 GFR/1.73 sq M.predicted among non-blacks MDRD (S/P/Bld) [Vol rate/Area] Estimated glomerular filtration rate (GFR) non- Low >=60 mL/min/1.7 3m 2 [facility] Laboratory - Chemistry and C hemistry - challengeon 04-22-2024 Calcium [Mass/Vol] 9.4 mg/dL 8.5-10.1 [facility] Chloride [Moles/Vol] 102 mmol/L 98-107 [facility] CO2 [Moles/Vol] 31.3 mmol/L 21.0-32.0 [facility] Creatinine [Mass/Vol] 3.51 mg/dL High 0.70-1.30 [facility] GFR/1.73 sq M.predicted MDRD (S/P/Bld) [Vol rate/Area] 21 mL/min/{1.73_m2} Low >=60 mL/min/1.7 3m 2 [facility] Glucose [Mass/Vol] 125 mg/dL High 74-106 [facility] Potassium [Moles/Vol] 4.8 mmol/L 3.5-5.1 [facility] Sodium [Moles/Vol] 142 mmol/L 136-145 [facility] Urea nitrogen [Mass/Vol] 41.0 mg/dL High 7.0-18.0 [facility] Urea nitrogen/Creatinine [Mass ratio] 11.7 mg/mg [facility] Serum or plasma anion gap de terminationon 04-22-2024 Anion gap [Moles/Vol] Serum or plasma an ion gap determination [facility] Albumin [Mass/volume] in Ser um or Plasma by Bromocresol green (BCG) dye binding methoOrdered By: Felicia Aguilar on 04-18-2024 Albumin BCG dye [Mass/Vol] Albumin [Mass/volume] in Serum or Plasma by Bromocresol green (BCG) dye binding metho 3.5-5.7 [facility] Calcium [Mass/volume] in Ser um or PlasmaOrdered By: Felicia Aguilar on 04-18-2024 Calcium [Mass/Vol] Calcium [Mass/volume ] in Serum or Plasma 8.6-10.3 [facility] Carbon dioxide, total [Moles /volume] in Serum or PlasmaOrdered By: Felicia Aguilar on 04-18-2024 CO2 [Moles/Vol] Carbon dioxide, tota l [Moles/volume] in Serum or Plasma 21.0-31.0 [facility] Chloride [Moles/volume] in S srikanth or PlasmaOrdered By: Felicia Aguilar on 04-18-2024 Chloride [Moles/Vol] Chloride [Moles/vol ume] in Serum or Plasma 98-107 [facility] Creatinine [Mass/volume] in Serum or PlasmaOrdered By: Felicia Aguilar on 04-18-2024 Creatinine [Mass/Vol] Creatinine [Mass/v olume] in Serum or Plasma High 0.70-1.30 [facility] Creatinine [Mass/volume] in UrineOrdered By: Felicia Aguilar on 04-18-2024 Creatinine (U) [Mass/Vol] Creatinine [Mass/volume] in Urine [facility] Comment on above: No reference range e stablished Creatinine, Urine (Random)on 04-18-2024 Creatinine, Urine (Random) 84.00 mg/dL Normal [facility] Comment on above: Result Comment: No r eference range established Performed By: #### B MP, CBCNO #### [address] Glucose [Mass/volume] in Ser um or PlasmaOrdered By: Felicia Aguilar on 04-18-2024 Glucose [Mass/Vol] Glucose [Mass/volume ] in Serum or Plasma High 70-100 [facility] Comment on above: ADA recommended refe rence rangeRandom Glucose Reference Range is dependent on time and content of last meal. Glucose of more than 200 mg/dL in a nonstressed, ambulatory subject supports the diagnosis of Diabetes Mellitus. No Panel InformationOrdered By: Felicia Aguilar on 04-18-2024 Estimated GFR (CKD-EPI) 19.726 mL/Min [facility] Creatinine Clearance (Chem 26.05 [facility] Phosphate [Mass/volume] in S srikanth or PlasmaOrdered By: Felicia Aguilar on 04-18-2024 Phosphate [Mass/Vol] Phosphate [Mass/vol ume] in Serum or Plasma 2.5-4.5 [facility] Potassium [Moles/volume] in Serum or PlasmaOrdered By: Felicia Aguilar on 04-18-2024 Potassium [Moles/Vol] Potassium [Moles/v olume] in Serum or Plasma 3.5-5.1 [facility] Comment on above: Hemolysis is present at a level that could interfere with the result.Contact lab if redraw is required Renal Function Panelon 04-18 Albumin [Mass/Vol] 3.8 g/dL Normal 3.5-5.7 [facility] Comment on above: Performed By: #### C UU, ADDONUAPLUS #### [facility] [address] Anion gap [Moles/Vol] 12.6 mmol/L Normal 6.0-15.0 [facility] Comment on above: Performed By: #### C UU, ADDONUAPLUS #### [facility] [address] [place] [address] [place] Calcium [Mass/Vol] 9.3 mg/dL Normal 8.6-10.3 [facility] Comment on above: Performed By: #### C UU, ADDONUAPLUS #### [facility] [address] [place] [address] [place] Chloride [Moles/Vol] 102 mmol/L Normal 98-107 [facility] Comment on above: Performed By: #### C UU, ADDONUAPLUS #### [facility] [address] [place] [address] [place] CO2 [Moles/Vol] 24.1 mmol/L Normal 21.0-31.0 [facility] Comment on above: Performed By: #### C UU, ADDONUAPLUS #### [facility] [address] [place] [id number] [place] Creatinine [Mass/Vol] 3.08 mg/dL High 0.70-1.30 [facility] Comment on above: Performed By: #### C UU, ADDONUAPLUS #### [facility] [address] [place] [id number] [place] Creatinine Clr Calc Pharmacy 26.05 Normal [facility] Comment on above: Result Comment: PERF ORMED BY: [place] [address] PATHOLOGIST CLAY THROWER RADHA MANNING M.D. Performed By: #### C UU, ADDONUAPLUS #### [address] Estimated GFR 19.726 mL/Min Normal [facility] Comment on above: Performed By: #### C UU, ADDONUAPLUS #### [address] Glucose [Mass/Vol] 141 mg/dL High 70-100 [facility] Comment on above: Result Comment: [facility] Glucose Reference Range is dependent on time and content of last meal. Glucose of more than 200 mg/dL in a nonstressed, ambulatory subject supports the diagnosis of Diabetes Mellitus. ADA recommended reference range Performed By: #### C UU, ADDONUAPLUS #### [address] Phosphate [Mass/Vol] 3.2 mg/dL Normal 2.5-4.5 [facility] Comment on above: Performed By: #### C UBarbara ADDONUAPLUS #### [address] Potassium [Moles/Vol] 4.7 mmol/L Normal 3.5-5.1 [facility] Comment on above: Result Comment: Hemo lysis is present at a level that could interfere with the result. Contact lab if redraw is required Performed By: #### C UU, ADDONUAPLUS #### [place] [address] [place] Sodium [Moles/Vol] 134 mmol/L Low 136-145 [facility] Comment on above: Performed By: #### C UU, ADDONUAPLUS #### [place] [address] [place] Urea nitrogen [Mass/Vol] 50 mg/dL High 7-25 [facility] Comment on above: Performed By: #### C UU, ADDONUAPLUS #### [facility] [address] Serum or plasma anion gap de terminationOrdered By: Felicia Aguilar on 04-18-2024 Anion gap [Moles/Vol] Serum or plasma an ion gap determination 6.0-15.0 [facility] Sodium [Moles/volume] in Ser um or PlasmaOrdered By: Felicia Aguilar on 04-18-2024 Sodium [Moles/Vol] Sodium [Moles/volume ] in Serum or Plasma Low 136-145 [facility] Sodium [Moles/volume] in Uri neOrdered By: Felicia Aguilar on 04-18-2024 Sodium (U) [Moles/Vol] Sodium [Moles/vol ume] in Urine [facility] Comment on above: No reference range e stablished Sodium, Urine (Random)on Sodium (U) [Moles/Vol] 32 mmol/L Normal Th e [facility] Comment on above: Result Comment: No r eference range established PERFORMED BY: [place] [address] PATHOLOGIST CLAY THROWER RADHA MANNING M.D. Performed By: #### B MP, CBCNO #### [address] Urea nitrogen [Mass/volume] in Serum or PlasmaOrdered By: Felicia Aguilar on 04-18-2024 Urea nitrogen [Mass/Vol] Urea nitrogen [Mass/volume] in Serum or Plasma High 7-25 [facility] Erythrocyte distribution wid th Auto (RBC) [Ratio]Ordered By: Obaydah Daromar on 04-17-2024 Erythrocyte distribution width (RBC) [Ratio] Erythrocyte distribution width [Ratio] by Automated count 12.0-14.8 [facility] Hematocrit Auto (Bld) [Volum e fraction]Ordered By: Obaydah Daromar on 04-17-2024 Hematocrit (Bld) [Volume fraction] Hematocrit [Volume Fraction] of Blood by Automated count 38.8-50.0 [facility] Hemoglobin [Mass/volume] in BloodOrdered By: Obaydah Daromar on 04-17-2024 Hemoglobin (Bld) [Mass/Vol] Hemoglobin [Mass/volume] in Blood 13.0-17.0 [facility] Hemogram CBC Without Diffon 04-17-2024 Erythrocyte distribution width (RBC) [Ratio] 14.7 % Normal 12.0-14.8 [facility] Comment on above: Performed By: #### C UU, ADDONUAPLUS #### [address] Hematocrit (Bld) [Volume fraction] 42.0 % Normal 38.8-50.0 [facility] Comment on above: Performed By: #### C UBarbara, ADDONUAPLUS #### [address] Hemoglobin (Bld) [Mass/Vol] 14.5 g/dL Normal 13.0-17.0 [facility] Comment on above: Performed By: #### C UBarbara, ADDONUAPLUS #### [address] MCH (RBC) [Entitic mass] 30.2 pg Normal 27.5-35.2 [facility] Comment on above: Performed By: #### C UBarbara, ADDONUAPLUS #### [address] MCV (RBC) [Entitic vol] 87.5 fL Normal 83.5-101 T [facility] Comment on above: Performed By: #### C UU, ADDONUAPLUS #### [address] Mean Corpuscular HGB Conc 34.5 g/dL Normal 32.5-35.6 [facility] Comment on above: Performed By: #### C UU, ADDONUAPLUS #### [address] Platelet mean volume (Bld) [Entitic vol] 7.6 fL Normal 6.6-10.1 [facility] Comment on above: Result Comment: PERF ORMED BY: [place] [address] PATHOLOGIST CLAY THROWER RADHA MANNING M.D. Performed By: #### C UU, ADDONUAPLUS #### [address] Platelets (Bld) [#/Vol] 283 10*3/uL Normal 150-450 [facility] Comment on above: Performed By: #### C UU, ADDONUAPLUS #### [address] RBC (Bld) [#/Vol] 4.80 10*6/uL Normal 3.90-5.60 [facility] Comment on above: Performed By: #### C UU, ADDONUAPLUS #### [address] WBC (Bld) [#/Vol] 10.0 10*3/uL Normal 4.1-10.5 [facility] Comment on above: Performed By: #### C UU, ADDONUAPLUS #### [address] Leukocytes [#/volume] correc ariana for nucleated erythrocytes in Blood by Automated counOrdered By: Mihaidali Covarrubiasomar on 04-17-2024 WBC corrected for nucl RBC Auto (Bld) [#/Vol] Leukocytes [#/volume] corrected for nucleated erythrocytes in Blood by Automated coun 4.1-10.5 [facility] MCH Auto (RBC) [Entitic mass ]Ordered By: Obsusandah Daromar on 04-17-2024 MCH (RBC) [Entitic mass] MCH [Entitic mass] by Automated count 27.5-35.2 [facility] MCHC Auto (RBC) [Mass/Vol]Or dered By: Obaydah Daromar on 04-17-2024 MCHC (RBC) [Mass/Vol] MCHC [Mass/volume] by Automated count 32.5-35.6 [facility] MCV Auto (RBC) [Entitic vol] Ordered By: Obsusandah Satishomar on 04-17-2024 MCV (RBC) [Entitic vol] MCV [Entitic vol ume] by Automated count 83.5-101 [facility] Platelet mean volume Auto (B ld) [Entitic vol]Ordered By: Obsusandali Daromar on 04-17-2024 Platelet mean volume (Bld) [Entitic vol] Platelet mean volume [Entitic volume] in Blood by Automated count 6.6-10.1 [facility] Platelets Auto (Bld) [#/Vol] Ordered By: Obsusandali Daromar on 04-17-2024 Platelets (Bld) [#/Vol] Platelets [#/vol ume] in Blood by Automated count 150-450 [facility] RBC Auto (Bld) [#/Vol]Ordere d By: Obsusandah Daromar on 04-17-2024 RBC (Bld) [#/Vol] Erythrocytes [#/volu me] in Blood by Automated count 3.90-5.60 [facility] Renal Function Panelon 04-17 Albumin [Mass/Vol] 3.7 g/dL Normal 3.5-5.7 [facility] Comment on above: Performed By: #### B AMARIS, CBCNO #### [facility] [address] Anion gap [Moles/Vol] 13.3 mmol/L Normal 6.0-15.0 Th e [facility] Comment on above: Performed By: #### B AMARIS, CBCNO #### [facility] [address] [place] [address] [place] Calcium [Mass/Vol] 9.4 mg/dL Normal 8.6-10.3 [facility] Comment on above: Performed By: #### B AMARIS, CBCNO #### [facility] [address] [place] [id number] [place] Chloride [Moles/Vol] 103 mmol/L Normal 98-107 [facility] Comment on above: Performed By: #### B MP, CBCNO #### [facility] [address] [place] [address] [place] CO2 [Moles/Vol] 25.0 mmol/L Normal 21.0-31.0 [facility] Comment on above: Performed By: #### B MP, CBCNO #### [facility] [address] Creatinine [Mass/Vol] 3.26 mg/dL Significan t change up 0.70-1.30 [facility] Comment on above: Performed By: #### B MP, CBCNO #### [place] [address] [place] Creatinine Clr Calc Pharmacy 24.61 Normal [facility] Comment on above: Result Comment: PERF ORMED BY: [place] [address] PATHOLOGIST CLAY THROWER RADHA MANNING M.D. Performed By: #### B MP, CBCNO #### [address] Estimated GFR 18.426 mL/Min Normal [facility] Comment on above: Performed By: #### B MP, CBCNO #### [address] Glucose [Mass/Vol] 100 mg/dL Normal 70-100 [facility] Comment on above: Result Comment: [facility] Glucose Reference Range is dependent on time and content of last meal. Glucose of more than 200 mg/dL in a nonstressed, ambulatory subject supports the diagnosis of Diabetes Mellitus. ADA recommended reference range Performed By: #### B MP, CBCNO #### [address] Phosphate [Mass/Vol] 4.4 mg/dL Normal 2.5-4.5 [facility] Comment on above: Performed By: #### B MP, CBCNO #### [place] [address] [place] Potassium [Moles/Vol] 4.3 mmol/L Normal 3.5-5.1 [facility] Comment on above: Performed By: #### B MP, CBCNO #### [place] [address] [place] Sodium [Moles/Vol] 137 mmol/L Normal 136-145 [facility] Comment on above: Performed By: #### B MP, CBCNO #### [address] Urea nitrogen [Mass/Vol] 53 mg/dL High 7-25 [facility] Comment on above: Performed By: #### B MP, CBCNO #### [address] Hemogram CBC Without Diffon 04-16-2024 Erythrocyte distribution width (RBC) [Ratio] 14.2 % Normal 12.0-14.8 [facility] Comment on above: Performed By: #### C UU, ADDONUAPLUS #### [address] Hematocrit (Bld) [Volume fraction] 43.4 % Normal 38.8-50.0 [facility] Comment on above: Performed By: #### C UU, ADDONUAPLUS #### [address] Hemoglobin (Bld) [Mass/Vol] 15.0 g/dL Normal 13.0-17.0 [facility] Comment on above: Performed By: #### C UU, ADDONUAPLUS #### [address] MCH (RBC) [Entitic mass] 30.2 pg Normal 27.5-35.2 [facility] Comment on above: Performed By: #### C UU, ADDONUAPLUS #### [address] MCV (RBC) [Entitic vol] 87.2 fL Normal 83.5-101 T [facility] Comment on above: Performed By: #### C UU, ADDONUAPLUS #### [address] Mean Corpuscular HGB Conc 34.6 g/dL Normal 32.5-35.6 [facility] Comment on above: Performed By: #### C UU, ADDONUAPLUS #### [address] Platelet mean volume (Bld) [Entitic vol] 7.8 fL Normal 6.6-10.1 [facility] Comment on above: Result Comment: PERF ORMED BY: [place] [address] PATHOLOGIST CLAY THROWER RADHA MANNING M.D. Performed By: #### C UU, ADDONUAPLUS #### [address] Platelets (Bld) [#/Vol] 297 10*3/uL Normal 150-450 [facility] Comment on above: Performed By: #### C UU, ADDONUAPLUS #### [address] RBC (Bld) [#/Vol] 4.98 10*6/uL Normal 3.90-5.60 [facility] Comment on above: Performed By: #### C UU, ADDONUAPLUS #### [address] WBC (Bld) [#/Vol] 8.7 10*3/uL Normal 4.1-10.5 [facility] Comment on above: Performed By: #### C UU, ADDONUAPLUS #### [address] NM brianna perf SPECT rest stron 04-16-2024 NM brianna perf SPECT rest [place] [address] Nuclear Medicine Report Signed Patient: Corwin Muller MR#: [id number] : 1945 Acct:[id number] Age/Sex: 79 / M ADM Date: 04/10/24 Loc: Room: [address] [place] [address] Type: ADM IN Attending Dr: Jersey Bess MD Copies to: MD Mely Templeton MD Obaydah M Daromar, MD Ordering Provider: Mely eKn MD Date of Service: 04/15/24 NM/NM brianna [...] Jayda Burgess M.D.04/16/2024 12:45 PM Dictation Location: [place] [address] Transcribed By: [facility] 04/16/24 1245 Dictated By: Jayda Burgess MD 04/16/24 1237 Signed By: 04/16/24 1245 Normal [facility] Renal Function Panelon 04-16 Albumin [Mass/Vol] 3.6 g/dL Normal 3.5-5.7 [facility] Comment on above: Performed By: #### C J LUIS BUCHANANPLUS #### [address] Anion gap [Moles/Vol] 16.3 mmol/L High 6.0-15.0 Th e [facility] Comment on above: Performed By: #### C J LUIS BUCHANANPLUS #### [address] Calcium [Mass/Vol] 9.1 mg/dL Normal 8.6-10.3 [facility] Comment on above: Performed By: #### C UU, ADDONUAPLUS #### [address] Chloride [Moles/Vol] 104 mmol/L Normal 98-107 [facility] Comment on above: Performed By: #### C UU, ADDONUAPLUS #### [address] CO2 [Moles/Vol] 21.6 mmol/L Normal 21.0-31.0 [facility] Comment on above: Performed By: #### C UU, ADDONUAPLUS #### [address] Creatinine [Mass/Vol] 2.68 mg/dL High 0.70-1.30 [facility] Comment on above: Performed By: #### C UU, ADDONUAPLUS #### [place] [address] [place] Creatinine Clr Calc Pharmacy 29.94 Normal [facility] Comment on above: Result Comment: PERF ORMED BY: [place] [address] PATHOLOGIST CLAY THROWER RADHA MANNING M.D. Performed By: #### C UU, ADDONUAPLUS #### [place] [address] [place] Estimated GFR 23.310 mL/Min Normal [facility] Comment on above: Performed By: #### C UU, ADDONUAPLUS #### [address] Glucose [Mass/Vol] 99 mg/dL Normal 70-100 [facility] Comment on above: Result Comment: [facility] Glucose Reference Range is dependent on time and content of last meal. Glucose of more than 200 mg/dL in a nonstressed, ambulatory subject supports the diagnosis of Diabetes Mellitus. ADA recommended reference range Performed By: #### C UU, ADDONUAPLUS #### [facility] [address] Phosphate [Mass/Vol] 3.6 mg/dL Normal 2.5-4.5 [facility] Comment on above: Performed By: #### C UU, ADDONUAPLUS #### [address] Potassium [Moles/Vol] 3.9 mmol/L Normal 3.5-5.1 [facility] Comment on above: Result Comment: Hemo lysis is present at a level that could interfere with the result. Contact lab if redraw is required Performed By: #### C UU, ADDONUAPLUS #### [address] Sodium [Moles/Vol] 138 mmol/L Normal 136-145 [facility] Comment on above: Performed By: #### C UU, ADDONUAPLUS #### [address] Urea nitrogen [Mass/Vol] 42 mg/dL High 7-25 [facility] Comment on above: Performed By: #### C UU, ADDONUAPLUS #### [address] Alanine aminotransferase [En zymatic activity/volume] in Serum or PlasmaOrdered By: Obaydah Daromar on 04-15-2024 ALT [Catalytic activity/Vol] Alanine aminotransferase [Enzymatic activity/volume] in Serum or Plasma 7-52 [facility] Alkaline phosphatase [Enzyma tic activity/volume] in Serum or PlasmaOrdered By: Obaydah Daromar on 04-15-2024 ALP [Catalytic activity/Vol] Alkaline phosphatase [Enzymatic activity/volume] in Serum or Plasma 34-104 [facility] Aspartate aminotransferase [ Enzymatic activity/volume] in Serum or PlasmaOrdered By: Obaydah Daromar on 04-15-2024 AST [Catalytic activity/Vol] Aspartate aminotransferase [Enzymatic activity/volume] in Serum or Plasma 13-39 [facility] Bilirubin.total [Mass/volume ] in Serum or PlasmaOrdered By: Obaydah Daromar on 04-15-2024 Bilirubin [Mass/Vol] Bilirubin.total [Mass/volume] in Serum or Plasma 0.3-1.0 [facility] Comprehensive Metabolic Pane nazanin 04-15-2024 Albumin [Mass/Vol] 3.6 g/dL Normal 3.5-5.7 [facility] Comment on above: Performed By: #### C UU, ADDONUAPLUS #### [facility] [address] Albumin/Globulin [Mass ratio] 1.2 {ratio} Normal [facility] Comment on above: Performed By: #### C UU, ADDONUAPLUS #### [facility] [address] [place] [address] [place] ALP [Catalytic activity/Vol] 46 U/L Normal 34-104 [facility] Comment on above: Performed By: #### C UU, ADDONUAPLUS #### [facility] [address] [place] [address] [place] ALT [Catalytic activity/Vol] 27 U/L Normal 7-52 [facility] Comment on above: Performed By: #### C UU, ADDONUAPLUS #### [facility] [address] [place] [id number] [place] Anion gap [Moles/Vol] 11.5 mmol/L Normal 6.0-15.0 Th e [facility] Comment on above: Performed By: #### C UU, ADDONUAPLUS #### [facility] [address] [place] [id number] [place] AST [Catalytic activity/Vol] 30 U/L Normal 13-39 [facility] Comment on above: Performed By: #### C UU, ADDONUAPLUS #### [facility] [address] [place] [id number] [place] Bilirubin [Mass/Vol] 0.6 mg/dL Normal 0.3-1.0 [facility] Comment on above: Performed By: #### C UU, ADDONUAPLUS #### [facility] [address] [place] [id number] [place] Calcium [Mass/Vol] 9.2 mg/dL Normal 8.6-10.3 [facility] Comment on above: Performed By: #### C UU, ADDONUAPLUS #### [address] Chloride [Moles/Vol] 104 mmol/L Normal 98-107 [facility] Comment on above: Performed By: #### C UU, ADDONUAPLUS #### [address] CO2 [Moles/Vol] 26.6 mmol/L Normal 21.0-31.0 [facility] Comment on above: Performed By: #### C UU, ADDONUAPLUS #### [address] Creatinine [Mass/Vol] 2.58 mg/dL High 0.70-1.30 [facility] Comment on above: Performed By: #### C UU, ADDONUAPLUS #### [address] Creatinine Clr Calc Pharmacy 31.18 Normal [facility] Comment on above: Performed By: #### C UU, ADDONUAPLUS #### [address] Estimated GFR 24.398 mL/Min Normal [facility] Comment on above: Performed By: #### C UU, ADDONUAPLUS #### [address] Globulin (S) [Mass/Vol] 2.9 g/dL Normal T he [facility] Comment on above: Performed By: #### C UU, ADDONUAPLUS #### [address] Glucose [Mass/Vol] 100 mg/dL Normal 70-100 [facility] Comment on above: Result Comment: [facility] Glucose Reference Range is dependent on time and content of last meal. Glucose of more than 200 mg/dL in a nonstressed, ambulatory subject supports the diagnosis of Diabetes Mellitus. ADA recommended reference range Performed By: #### C UU, ADDONUAPLUS #### [address] [place] [address] [place] Potassium [Moles/Vol] 4.1 mmol/L Normal 3.5-5.1 [facility] Comment on above: Performed By: #### C SHERWIN BUCHANANONUAPLUS #### [facility] [address] Protein [Mass/Vol] 6.5 g/dL Normal 6.4-8.9 [facility] Comment on above: Performed By: #### C CHANEL ADDONUAPLUS #### [address] Sodium [Moles/Vol] 138 mmol/L Normal 136-145 [facility] Comment on above: Performed By: #### SHERWIN KNOXONUAPLUS #### [address] Urea nitrogen [Mass/Vol] 38 mg/dL High 7-25 [facility] Comment on above: Performed By: #### C SHERWIN BUCHANANONUAPLUS #### [address] Globulin Calc (S) [Mass/Vol] Ordered By: Jersey Bess on 04-15-2024 Globulin (S) [Mass/Vol] Serum globulin m easurement by calculation (mass/volume) [facility] Hemogram CBC Without Diffon 04-15-2024 Erythrocyte distribution width (RBC) [Ratio] 14.0 % Normal 12.0-14.8 [facility] Comment on above: Performed By: #### C CHANEL ADDONUAPLUS #### [place] [address] [place] Hematocrit (Bld) [Volume fraction] 42.5 % Normal 38.8-50.0 [facility] Comment on above: Performed By: #### VENU KNOXUAPLUS #### [address] Hemoglobin (Bld) [Mass/Vol] 14.8 g/dL Normal 13.0-17.0 [facility] Comment on above: Performed By: #### VENU KNOXUAPLUS #### [address] MCH (RBC) [Entitic mass] 30.3 pg Normal 27.5-35.2 [facility] Comment on above: Performed By: #### C UU, ADDONUAPLUS #### [address] MCV (RBC) [Entitic vol] 87.1 fL Normal 83.5-101 T he [facility] Comment on above: Performed By: #### C UU, ADDONUAPLUS #### [address] Mean Corpuscular HGB Conc 34.8 g/dL Normal 32.5-35.6 [facility] Comment on above: Performed By: #### C UU, ADDONUAPLUS #### [address] Platelet mean volume (Bld) [Entitic vol] 7.7 fL Normal 6.6-10.1 [facility] Comment on above: Result Comment: PERF ORMED BY: [place] [address] PATHOLOGIST CLAY THROWER RADHA MANNING M.D. Performed By: #### C UU, ADDONUAPLUS #### [address] Platelets (Bld) [#/Vol] 270 10*3/uL Normal 150-450 [facility] Comment on above: Performed By: #### C UU, ADDONUAPLUS #### [address] RBC (Bld) [#/Vol] 4.88 10*6/uL Normal 3.90-5.60 [facility] Comment on above: Performed By: #### C UU, ADDONUAPLUS #### [address] WBC (Bld) [#/Vol] 8.5 10*3/uL Normal 4.1-10.5 [facility] Comment on above: Performed By: #### C UU, ADDONUAPLUS #### [facility] [address] [place] [id number] [place] Magnesiumon 04-15-2024 Magnesium [Mass/Vol] 2.1 mg/dL Normal 1.9-2.7 [facility] Comment on above: Result Comment: PERF ORMED BY: [place] [address] PATHOLOGIST CLAY THROWER RADHA MANNING M.D. Performed By: #### C UU, ADDONUAPLUS #### [facility] [address] Magnesium [Mass/volume] in S srikanth or PlasmaOrdered By: Tobi Monroy on 04-15-2024 Magnesium [Mass/Vol] Magnesium [Mass/vol ume] in Serum or Plasma 1.9-2.7 [facility] No Panel InformationOrdered By: Jayda Burgess on 04-15-2024 [facility] [place] [address] [place] [address] Cardiac Stress Test Signed Patient: Corwin Muller MR#: [id number] : 1945 Date of Service:04/15/24 Age/Sex: 79 / M ADM Date: 5 Loc: Room: [address] [place] [address] Type: ADM IN Attending Dr: Jersey Bess [...] Transcribed By: onelia 04/15/24 152 Dictated By: Jyada Burgess MD 04/15/24 152 Signed By: 04/15/24 1527 [facility] Work Phone: Protein [Mass/volume] in Ser um or PlasmaOrdered By: Obchandrakant Daromar on 04-15-2024 Protein [Mass/Vol] Protein [Mass/volume ] in Serum or Plasma 6.4-8.9 [facility] Renal Function Panelon 04-15 Phosphate [Mass/Vol] 3.9 mg/dL Normal 2.5-4.5 [facility] Comment on above: Performed By: #### C TINO BUCHANAN #### [facility] [address] Serum or plasma albumin/glob ulin mass ratioOrdered By: Jersey Covarrubiasomar on 04-15-2024 Albumin/Globulin [Mass ratio] Serum or plasma albumin/globulin mass ratio [facility] Basic Metabolic Panelon 03-24 Anion gap [Moles/Vol] 13.7 mmol/L Normal 6.0-15.0 Th e [facility] Comment on above: Performed By: #### B ALE GLEZNO #### [facility] [address] Calcium [Mass/Vol] 8.8 mg/dL Normal 8.6-10.3 [facility] Comment on above: Performed By: #### B AMARIS CBCNO #### [facility] [address] [place] [address] [place] Chloride [Moles/Vol] 105 mmol/L Normal 98-107 [facility] Comment on above: Performed By: #### B AMARIS CBCNO #### [facility] [address] CO2 [Moles/Vol] 23.2 mmol/L Normal 21.0-31.0 [facility] Comment on above: Performed By: #### B AMARIS CBCNO #### [facility] [address] [place] [address] Creatinine [Mass/Vol] 2.30 mg/dL High 0.70-1.30 [facility] Comment on above: Performed By: #### B AMARIS CBCNO #### [address] Creatinine Clr Calc Pharmacy 34.97 Normal [facility] Comment on above: Result Comment: PERF ORMED BY: [place] [address] PATHOLOGIST CLAY THROWER RADHA MANNING M.D. Performed By: #### B AMARIS CBCNO #### [address] Estimated GFR 28.004 mL/Min Normal [facility] Comment on above: Performed By: #### B AMARIS CBCNO #### [address] Glucose [Mass/Vol] 103 mg/dL High 70-100 [facility] Comment on above: Result Comment: [facility] Glucose Reference Range is dependent on time and content of last meal. Glucose of more than 200 mg/dL in a nonstressed, ambulatory subject supports the diagnosis of Diabetes Mellitus. ADA recommended reference range Performed By: #### B AMARIS CBCNO #### [address] Potassium [Moles/Vol] 3.9 mmol/L Normal 3.5-5.1 [facility] Comment on above: Performed By: #### B AMARIS CBCNO #### [address] Sodium [Moles/Vol] 138 mmol/L Normal 136-145 [facility] Comment on above: Performed By: #### B AMARIS CBCNO #### [address] Urea nitrogen [Mass/Vol] 36 mg/dL High 7-25 [facility] Comment on above: Performed By: #### B AMARIS CBCNO #### [address] Hemogram CBC Without Diffon 02-23-2025 Erythrocyte distribution width (RBC) [Ratio] 14.1 % Normal 12.0-14.8 [facility] Comment on above: Performed By: #### B AMARIS, CBCNO #### [address] Hematocrit (Bld) [Volume fraction] 42.1 % Normal 38.8-50.0 [facility] Comment on above: Performed By: #### B MP, CBCNO #### [address] Hemoglobin (Bld) [Mass/Vol] 14.6 g/dL Normal 13.0-17.0 [facility] Comment on above: Performed By: #### B AMARIS, CBCNO #### [address] MCH (RBC) [Entitic mass] 30.3 pg Normal 27.5-35.2 [facility] Comment on above: Performed By: #### B AMARIS, CBCNO #### [address] MCV (RBC) [Entitic vol] 87.8 fL Normal 83.5-101 T [facility] Comment on above: Performed By: #### B AMARIS, CBCNO #### [address] Mean Corpuscular HGB Conc 34.6 g/dL Normal 32.5-35.6 [facility] Comment on above: Performed By: #### B AMARIS, CBCNO #### [address] Platelet mean volume (Bld) [Entitic vol] 7.7 fL Normal 6.6-10.1 [facility] Comment on above: Result Comment: PERF ORMED BY: [place] [address] PATHOLOGIST CLAY THROWER RADHA MANNING M.D. Performed By: #### B AMARIS, CBCNO #### [address] Platelets (Bld) [#/Vol] 278 10*3/uL Normal 150-450 [facility] Comment on above: Performed By: #### B MP, CBCNO #### [address] RBC (Bld) [#/Vol] 4.80 10*6/uL Normal 3.90-5.60 [facility] Comment on above: Performed By: #### B MP, CBCNO #### [address] WBC (Bld) [#/Vol] 9.5 10*3/uL Normal 4.1-10.5 [facility] Comment on above: Performed By: #### B AMARIS, CBCNO #### [address] Basophils Auto (Bld) [#/Vol] Ordered By: Jersey Bess on 04-13-2024 Basophils (Bld) [#/Vol] Automated basophil count 0.0-0.2 [facility] Basophils/100 WBC Auto (Bld) Ordered By: Obchandrakant Reyesr on 04-13-2024 Basophils/100 WBC (Bld) Automated basophil % . [facility] Complete Blood Count Auto Di ffon 04-13-2024 Basophils (Bld) [#/Vol] 0.0 10*3/uL Normal 0.0-0.2 [facility] Comment on above: Result Comment: PERF ORMED BY: [place] [address] PATHOLOGIST CLAY THROWER RADHA MANNING M.D. Performed By: #### C UU, ADDONUAPLUS #### [address] Basophils/100 WBC (Bld) 0.4 % Normal . T felipe [facility] Comment on above: Performed By: #### C UU, ADDONUAPLUS #### [place] [address] [place] Eosinophils (Bld) [#/Vol] 0.6 10*3/uL High 0.0-0.45 [facility] Comment on above: Performed By: #### C UU, ADDONUAPLUS #### [address] Eosinophils/100 WBC (Bld) 6.7 % Normal . [facility] Comment on above: Performed By: #### C UU, ADDONUAPLUS #### [address] Erythrocyte distribution width (RBC) [Ratio] 14.2 % Normal 12.0-14.8 [facility] Comment on above: Performed By: #### C UU, ADDONUAPLUS #### [address] Hematocrit (Bld) [Volume fraction] 40.8 % Normal 38.8-50.0 [facility] Comment on above: Performed By: #### C UU, ADDONUAPLUS #### [address] Hemoglobin (Bld) [Mass/Vol] 14.3 g/dL Normal 13.0-17.0 [facility] Comment on above: Performed By: #### C UU, ADDONUAPLUS #### [address] Lymphocytes (Bld) [#/Vol] 1.6 10*3/uL Normal 1.00-4.8 [facility] Comment on above: Performed By: #### C UU, ADDONUAPLUS #### [address] Lymphocytes/100 WBC (Bld) 18.6 % Normal . [facility] Comment on above: Performed By: #### C UU, ADDONUAPLUS #### [address] MCH (RBC) [Entitic mass] 30.2 pg Normal 27.5-35.2 [facility] Comment on above: Performed By: #### C UU, ADDONUAPLUS #### [address] MCV (RBC) [Entitic vol] 86.4 fL Normal 83.5-101 T [facility] Comment on above: Performed By: #### C UU, ADDONUAPLUS #### [address] Mean Corpuscular HGB Conc 35.0 g/dL Normal 32.5-35.6 [facility] Comment on above: Performed By: #### C UU, ADDONUAPLUS #### [address] Monocytes (Bld) [#/Vol] 1.0 10*3/uL High 0.0-0.8 [facility] Comment on above: Performed By: #### C UU, ADDONUAPLUS #### [address] Monocytes/100 WBC (Bld) 11.0 % Normal . T [facility] Comment on above: Performed By: #### C UU, ADDONUAPLUS #### [address] Neutrophils (Bld) [#/Vol] 5.5 10*3/uL Normal 1.8-7.7 [facility] Comment on above: Performed By: #### C UU, ADDONUAPLUS #### [place] [address] [place] Neutrophils/100 WBC (Bld) 63.3 % Normal . [facility] Comment on above: Performed By: #### C UU, ADDONUAPLUS #### [place] [address] [place] NRBC% 0.1 /100{WBC} Normal 0-0.5 [facility] Comment on above: Performed By: #### C UU, ADDONUAPLUS #### [address] Platelet mean volume (Bld) [Entitic vol] 7.9 fL Normal 6.6-10.1 [facility] Comment on above: Performed By: #### C UU, ADDONUAPLUS #### [address] Platelets (Bld) [#/Vol] 245 10*3/uL Normal 150-450 [facility] Comment on above: Performed By: #### C UU, ADDONUAPLUS #### [address] RBC (Bld) [#/Vol] 4.73 10*6/uL Normal 3.90-5.60 [facility] Comment on above: Performed By: #### C UU, ADDONUAPLUS #### [address] WBC (Bld) [#/Vol] 8.7 10*3/uL Normal 4.1-10.5 [facility] Comment on above: Performed By: #### C UU, ADDONUAPLUS #### [address] Comprehensive Metabolic Pane nazanin 04-13-2024 Albumin [Mass/Vol] 3.5 g/dL Normal 3.5-5.7 [facility] Comment on above: Performed By: #### C UU ADDONUAPLUS #### [address] Albumin/Globulin [Mass ratio] 1.2 {ratio} Normal [facility] Comment on above: Performed By: #### C UU, ADDONUAPLUS #### [address] ALP [Catalytic activity/Vol] 44 U/L Normal 34-104 [facility] Comment on above: Performed By: #### C UU, ADDONUAPLUS #### [address] ALT [Catalytic activity/Vol] 18 U/L Normal 7-52 [facility] Comment on above: Performed By: #### C UU ADDONUAPLUS #### [address] Anion gap [Moles/Vol] 13.9 mmol/L Normal 6.0-15.0 Th e [facility] Comment on above: Performed By: #### C CHANEL ADDONUAPLUS #### [address] AST [Catalytic activity/Vol] 25 U/L Normal 13-39 [facility] Comment on above: Performed By: #### C CHANEL ADDONUAPLUS #### [address] Bilirubin [Mass/Vol] 0.6 mg/dL Normal 0.3-1.0 [facility] Comment on above: Performed By: #### C CHANEL ADDONUAPLUS #### [address] Calcium [Mass/Vol] 8.8 mg/dL Normal 8.6-10.3 [facility] Comment on above: Performed By: #### Jyoti BUCHANAN ADDONUAPLUS #### [address] Chloride [Moles/Vol] 104 mmol/L Normal 98-107 [facility] Comment on above: Performed By: #### C CHANEL ADDONUAPLUS #### [address] CO2 [Moles/Vol] 23.6 mmol/L Normal 21.0-31.0 [facility] Comment on above: Performed By: #### C CHANEL ADDONUAPLUS #### [address] Creatinine [Mass/Vol] 2.41 mg/dL High 0.70-1.30 [facility] Comment on above: Performed By: #### C CHANEL ADDONUAPLUS #### [address] Creatinine Clr Calc Pharmacy 33.55 Normal [facility] Comment on above: Result Comment: PERF ORMED BY: [place] [address] PATHOLOGIST CLAY THROWER RADHA MANNING M.D. Performed By: #### C UU, ADDONUAPLUS #### [address] Estimated GFR 26.478 mL/Min Normal [facility] Comment on above: Performed By: #### C UU, ADDONUAPLUS #### [address] Globulin (S) [Mass/Vol] 2.9 g/dL Normal T he [facility] Comment on above: Performed By: #### C UU, ADDONUAPLUS #### [address] Glucose [Mass/Vol] 100 mg/dL Normal 70-100 [facility] Comment on above: Result Comment: [facility] Glucose Reference Range is dependent on time and content of last meal. Glucose of more than 200 mg/dL in a nonstressed, ambulatory subject supports the diagnosis of Diabetes Mellitus. ADA recommended reference range Performed By: #### C UU, ADDONUAPLUS #### [address] Potassium [Moles/Vol] 3.5 mmol/L Normal 3.5-5.1 [facility] Comment on above: Performed By: #### C UU, ADDONUAPLUS #### [address] Protein [Mass/Vol] 6.4 g/dL Normal 6.4-8.9 [facility] Comment on above: Performed By: #### C UU, ADDONUAPLUS #### [address] Sodium [Moles/Vol] 138 mmol/L Normal 136-145 [facility] Comment on above: Performed By: #### C UU, ADDONUAPLUS #### [address] Urea nitrogen [Mass/Vol] 39 mg/dL High 7-25 [facility] Comment on above: Performed By: #### C UU, ADDONUAPLUS #### [address] Eosinophils Auto (Bld) [#/Vo l]Ordered By: Obaydah Daromar on 04-13-2024 Eosinophils (Bld) [#/Vol] Automated eosinophil count High 0.0-0.45 [facility] Eosinophils/100 WBC Auto (Bl d)Ordered By: Obaydah Daromar on 04-13-2024 Eosinophils/100 WBC (Bld) Automated eosinophil % . [facility] Lymphocytes Auto (Bld) [#/Vo l]Ordered By: Obaydah Daromar on 04-13-2024 Lymphocytes (Bld) [#/Vol] Lymphocytes [#/volume] in Blood by Automated count 1.00-4.8 [facility] Lymphocytes/100 WBC Auto (Bl d)Ordered By: Obaydah Daromar on 04-13-2024 Lymphocytes/100 WBC (Bld) Lymphocytes/100 leukocytes in Blood by Automated count . [facility] Monocytes Auto (Bld) [#/Vol] Ordered By: Obaydah Daromar on 04-13-2024 Monocytes (Bld) [#/Vol] Automated blood monocyte count High 0.0-0.8 [facility] Monocytes/100 WBC Auto (Bld) Ordered By: Obaydah Daromar on 04-13-2024 Monocytes/100 WBC (Bld) Automated monocyte % . [facility] Neutrophils Auto (Bld) [#/Vo l]Ordered By: Obaydah Daromar on 04-13-2024 Neutrophils (Bld) [#/Vol] Neutrophils [#/volume] in Blood by Automated count 1.8-7.7 [facility] Neutrophils/100 WBC Auto (Bl d)Ordered By: Obaydah Daromar on 04-13-2024 Neutrophils/100 WBC (Bld) Automated neutrophil % . [facility] Nucleated erythrocytes [Pres ence] in Blood by Automated countOrdered By: Obaydah Daromar on 04-13-2024 Nucleated RBC Auto Ql (Bld) Nucleated erythrocytes [Presence] in Blood by Automated count 0-0.5 [facility] WBC Auto (Bld) [#/Vol]Ordere d By: Jersey Bess on 04-13-2024 WBC (Bld) [#/Vol] Leukocytes [#/volume ] in Blood by Automated count 4.1-10.5 [facility] Anti-Xa UF Heparinon 025 Anti-Xa UF Heparin 0.32 [IU]/mL Normal 0.30-0.70 [facility] Comment on above: Result Comment: Use the aPTT protocol when triglycerides are > 800 mg/dL, total bilirubin is > 20 mg/dL and/or patient has received a DOAC, Fondaparinux or LMWH within 72 hours AND baseline anti-Xa level is > 0.7 units/mL PERFORMED BY: [place] [address] PATHOLOGIST CLAY THROWER RADHA MANNING M.D. Performed By: #### C UU, ADDONUAPLUS #### [facility] [address] [place] [address] Anti-Xa UF Heparin 0.23 [IU]/mL Low 0.30-0.70 [facility] Comment on above: Result Comment: Use the aPTT protocol when triglycerides are > 800 mg/dL, total bilirubin is > 20 mg/dL and/or patient has received a DOAC, Fondaparinux or LMWH within 72 hours AND baseline anti-Xa level is > 0.7 units/mL PERFORMED BY: [place] [address] PATHOLOGIST CLAY THROWER RADHA MANNING M.D. Performed By: #### P P, UFHEP, HS TROP #### [facility] [address] [place] [address] Anti-Xa UF Heparin 0.11 [IU]/mL Low 0.30-0.70 [facility] Comment on above: Result Comment: Use the aPTT protocol when triglycerides are > 800 mg/dL, total bilirubin is > 20 mg/dL and/or patient has received a DOAC, Fondaparinux or LMWH within 72 hours AND baseline anti-Xa level is > 0.7 units/mL PERFORMED BY: [place] [address] PATHOLOGIST CLAY THROWER RADHA MANNING M.D. Performed By: #### U FHEP #### [address] Appearance of UrineOrdered B y: Tobi Eliana on 04-12-2024 Appearance (U) Urine appearance Abnormal Clear [facility] Bacteria [Presence] in Urine by AutomatedOrdered By: Tobi Eliana on 04-12-2024 Bacteria Auto Ql (U) Bacteria [Presence] in Urine by Automated High None Seen [facility] Bilirubin Test strip Ql (U)O rdered By: Tobi Eliana on 04-12-2024 Bilirubin Ql (U) Bilirubin.total [Pre sence] in Urine by Test strip Negative [facility] Color Auto (U)Ordered By: Ab tim Eliana on 04-12-2024 Color (U) Color of Urine by Auto Abnormal [facility] Auto Di ffon 04-12-2024 Basophils (Bld) [#/Vol] 0.0 10*3/uL Normal 0.0-0.2 [facility] Comment on above: Result Comment: PERF ORMED BY: [place] [address] PATHOLOGIST CLAY THROWER RADHA MANNING M.D. Performed By: #### P P, UFHEP, HS TROP #### [place] [address] [place] Basophils/100 WBC (Bld) 0.3 % Normal . T he [facility] Comment on above: Performed By: #### P P, UFHEP, HS TROP #### [place] [address] [place] Eosinophils (Bld) [#/Vol] 0.5 10*3/uL High 0.0-0.45 [facility] Comment on above: Performed By: #### P P, UFHEP, HS TROP #### [address] Eosinophils/100 WBC (Bld) 4.7 % Normal . [facility] Comment on above: Performed By: #### P P, UFHEP, HS TROP #### [address] Erythrocyte distribution width (RBC) [Ratio] 14.2 % Normal 12.0-14.8 [facility] Comment on above: Performed By: #### P P, UFHEP, HS TROP #### [address] Hematocrit (Bld) [Volume fraction] 39.4 % Normal 38.8-50.0 [facility] Comment on above: Performed By: #### P P, UFHEP, HS TROP #### [address] Hemoglobin (Bld) [Mass/Vol] 13.8 g/dL Normal 13.0-17.0 [facility] Comment on above: Performed By: #### P P, UFHEP, HS TROP #### [address] Lymphocytes (Bld) [#/Vol] 2.6 10*3/uL Normal 1.00-4.8 [facility] Comment on above: Performed By: #### P P, UFHEP, HS TROP #### [address] Lymphocytes/100 WBC (Bld) 23.6 % Normal . [facility] Comment on above: Performed By: #### P P, UFHEP, HS TROP #### [address] MCH (RBC) [Entitic mass] 30.6 pg Normal 27.5-35.2 [facility] Comment on above: Performed By: #### P P, UFHEP, HS TROP #### [address] MCV (RBC) [Entitic vol] 87.6 fL Normal 83.5-101 T he [facility] Comment on above: Performed By: #### P P, UFHEP, HS TROP #### [address] Mean Corpuscular HGB Conc 34.9 g/dL Normal 32.5-35.6 [facility] Comment on above: Performed By: #### P P, UFHEP, HS TROP #### [address] Monocytes (Bld) [#/Vol] 1.2 10*3/uL High 0.0-0.8 [facility] Comment on above: Performed By: #### P P, UFHEP, HS TROP #### [address] Monocytes/100 WBC (Bld) 11.0 % Normal . T [facility] Comment on above: Performed By: #### P P, UFHEP, HS TROP #### [address] Neutrophils (Bld) [#/Vol] 6.6 10*3/uL Normal 1.8-7.7 [facility] Comment on above: Performed By: #### P P, UFHEP, HS TROP #### [address] Neutrophils/100 WBC (Bld) 60.4 % Normal . [facility] Comment on above: Performed By: #### P P, UFHEP, HS TROP #### [place] [address] [place] NRBC% 0.1 /100{WBC} Normal 0-0.5 [facility] Comment on above: Performed By: #### P P, UFHEP, HS TROP #### [address] Platelet mean volume (Bld) [Entitic vol] 8.0 fL Normal 6.6-10.1 [facility] Comment on above: Performed By: #### P P, UFHEP, HS TROP #### [place] [address] [place] Platelets (Bld) [#/Vol] 265 10*3/uL Normal 150-450 [facility] Comment on above: Performed By: #### P P, UFHEP, HS TROP #### [address] RBC (Bld) [#/Vol] 4.50 10*6/uL Normal 3.90-5.60 [facility] Comment on above: Performed By: #### P P, UFHEP, HS TROP #### [address] WBC (Bld) [#/Vol] 11.0 10*3/uL High 4.1-10.5 [facility] Comment on above: Performed By: #### P P, UFHEP, HS TROP #### [address] Comprehensive Metabolic Pane nazanin 04-12-2024 Albumin [Mass/Vol] 3.2 g/dL Low 3.5-5.7 [facility] Comment on above: Performed By: #### P P, UFHEP, HS TROP #### [address] Albumin/Globulin [Mass ratio] 1.5 {ratio} Normal [facility] Comment on above: Performed By: #### P P, UFHEP, HS TROP #### [address] ALP [Catalytic activity/Vol] 42 U/L Normal 34-104 [facility] Comment on above: Performed By: #### P P, UFHEP, HS TROP #### [address] ALT [Catalytic activity/Vol] 13 U/L Normal 7-52 [facility] Comment on above: Performed By: #### P P, UFHEP, HS TROP #### [address] Anion gap [Moles/Vol] 14.4 mmol/L Normal 6.0-15.0 Th e [facility] Comment on above: Performed By: #### P P, UFHEP, HS TROP #### [facility] [address] AST [Catalytic activity/Vol] 18 U/L Normal 13-39 [facility] Comment on above: Performed By: #### P P, UFHEP, HS TROP #### [facility] [address] Bilirubin [Mass/Vol] 0.8 mg/dL Normal 0.3-1.0 [facility] Comment on above: Performed By: #### P P, UFHEP, HS TROP #### [facility] [address] Calcium [Mass/Vol] 8.4 mg/dL Low 8.6-10.3 [facility] Comment on above: Performed By: #### P P, UFHEP, HS TROP #### [address] Chloride [Moles/Vol] 103 mmol/L Normal 98-107 [facility] Comment on above: Performed By: #### P P, UFHEP, HS TROP #### [address] CO2 [Moles/Vol] 24.3 mmol/L Normal 21.0-31.0 [facility] Comment on above: Performed By: #### P P, UFHEP, HS TROP #### [place] [address] [place] Creatinine [Mass/Vol] 2.62 mg/dL High 0.70-1.30 [facility] Comment on above: Performed By: #### P P, UFHEP, HS TROP #### [place] [address] [place] Creatinine Clr Calc Pharmacy 27.61 Normal [facility] Comment on above: Result Comment: PERF ORMED BY: [place] [address] PATHOLOGIST CLAY THROWER RADHA MANNING M.D. Performed By: #### P P, UFHEP, HS TROP #### [address] Estimated GFR 23.951 mL/Min Normal [facility] Comment on above: Performed By: #### P P, UFHEP, HS TROP #### [address] Globulin (S) [Mass/Vol] 2.1 g/dL Normal T he [facility] Comment on above: Performed By: #### P P, UFHEP, HS TROP #### [address] Glucose [Mass/Vol] 92 mg/dL Normal 70-100 [facility] Comment on above: Result Comment: [facility] Glucose Reference Range is dependent on time and content of last meal. Glucose of more than 200 mg/dL in a nonstressed, ambulatory subject supports the diagnosis of Diabetes Mellitus. ADA recommended reference range Performed By: #### P P, UFHEP, HS TROP #### [address] Potassium [Moles/Vol] 3.7 mmol/L Normal 3.5-5.1 [facility] Comment on above: Performed By: #### P P, UFHEP, HS TROP #### [address] Protein [Mass/Vol] 5.3 g/dL Low 6.4-8.9 [facility] Comment on above: Performed By: #### P P, UFHEP, HS TROP #### [address] Sodium [Moles/Vol] 138 mmol/L Normal 136-145 [facility] Comment on above: Performed By: #### P P, UFHEP, HS TROP #### [address] Urea nitrogen [Mass/Vol] 40 mg/dL High 7-25 [facility] Comment on above: Performed By: #### P P, UFHEP, HS TROP #### [place] [id number] [place] Dipstick and Microscopicon 0 04-12-2024 Appearance (U) Turbid Critically abnormal Clear [facility] Comment on above: Order Comment: Name Collection Type:: Uriz Catheter Performed By: #### C UU, ADDONUAPLUS #### [place] [address] [place] Bacteria,Urine 4+ High None Seen [facility] Comment on above: Order Comment: Name Collection Type:: Ruiz Catheter Performed By: #### C UU, ADDONUAPLUS #### [place] [address] [place] Bilirubin,Urine Negative Normal Negative [facility] Comment on above: Order Comment: Name Collection Type:: Ruiz Catheter Performed By: #### C UU, ADDONUAPLUS #### [address] Budding Yeast,Urine 2+ High None Seen [facility] Comment on above: Order Comment: Name Collection Type:: Ruiz Catheter Result Comment: PERF ORMED BY: [place] [address] PATHOLOGIST CLAY THROWER RADHA MANNING M.D. Performed By: #### C UU, ADDONUAPLUS #### [address] Street Color (U) [place] Critically abnormal Yellow [facility] Comment on above: Order Comment: Name Collection Type:: Ruiz Catheter Performed By: #### C UU, ADDONUAPLUS #### [place] [address] [place] Glucose Ql (U) Normal Normal Normal [facility] Comment on above: Order Comment: Name Collection Type:: Ruiz Catheter Performed By: #### C UU, ADDONUAPLUS #### [place] [address] [place] Hyaline Casts,Urine 20-49 High 0-8 [facility] Comment on above: Order Comment: Name Collection Type:: Ruiz Catheter Performed By: #### C UU, ADDONUAPLUS #### [facility] [address] [place] [address] [place] Ketones Ql (U) Trace High Negative [facility] Comment on above: Order Comment: Name Collection Type:: Ruiz Catheter Performed By: #### C UU, ADDONUAPLUS #### [address] Leukocyte esterase Test strip Ql (U) 4+ High Negative [facility] Comment on above: Order Comment: Name Collection Type:: Ruiz Catheter Performed By: #### C UU, ADDONUAPLUS #### [address] Mucus,Urine 3+ Critically abnormal [facility] Comment on above: Order Comment: Name Collection Type:: Ruiz Catheter Performed By: #### C UU, ADDONUAPLUS #### [place] [address] [place] Nitrite,Urine Negative Normal Negative [facility] Comment on above: Order Comment: Name Collection Type:: Ruiz Catheter Performed By: #### C UU, ADDONUAPLUS #### [place] [address] [place] Occult Blood,Urine 3+ High Negative [facility] Comment on above: Order Comment: Name Collection Type:: Ruiz Catheter Result Comment: PERF ORMED BY: [place] [address] PATHOLOGIST CLAY THROWER RADHA MANNING M.D. Performed By: #### C UU, ADDONUAPLUS #### [place] [address] [place] pH (U) 5.5 [pH] Normal 5.0-9.0 [facility] Comment on above: Order Comment: Name Collection Type:: Ruiz Catheter Performed By: #### C UU, ADDONUAPLUS #### [address] Protein (U) [Mass/Vol] 50 mg/dL High Negative [facility] Comment on above: Order Comment: Name Collection Type:: Ruiz Catheter Performed By: #### C UU, ADDONUAPLUS #### [address] RBC,Urine 50-100 High 0-4 [facility] Comment on above: Order Comment: Name Collection Type:: Ruiz Catheter Performed By: #### C UU, ADDONUAPLUS #### [address] Specificy Orange,Urine 1.011 Normal 1.00 1-1.03 0 [facility] Comment on above: Order Comment: Name Collection Type:: Ruiz Catheter Performed By: #### C UU, ADDONUAPLUS #### [address] Squamous Epithelial Cell,Urine 3-4 High 0-2 [facility] Comment on above: Order Comment: Name Collection Type:: Ruiz Catheter Performed By: #### C UU, ADDONUAPLUS #### [address] Urobilinogen,Urine Normal Normal Normal [facility] Comment on above: Order Comment: Name Collection Type:: Ruiz Catheter Performed By: #### C UU, ADDONUAPLUS #### [address] WBC CLUMP, Urine Many High None Seen [facility] Comment on above: Order Comment: Name Collection Type:: Ruiz Catheter Performed By: #### C UU, ADDONUAPLUS #### [address] WBC,Urine Innumerable High 0-4 [facility] Comment on above: Order Comment: Name Collection Type:: Ruiz Catheter Performed By: #### C UU, ADDONUAPLUS #### [address] Epithelial cells.squamous [# /area] in Urine sediment by Automated countOrdered By: Tobi Monroy on 04-12-2024 Epithelial cells.squamous Auto (Urine sed) [#/Area] Epithelial cells.squamous [#/area] in Urine sediment by Automated count High 0-2 [facility] Erythrocytes [#/area] in Uri ne sediment by Automated countOrdered By: Tobi Monroy on 04-12-2024 RBC Auto (Urine sed) [#/Area] Erythrocytes [#/area] in Urine sediment by Automated count High 0-4 [facility] Glucose [Mass/volume] in Uri ne by Test stripOrdered By: Tobi Monroy on 04-12-2024 Glucose Test strip (U) [Mass/Vol] Glucose [Mass/volume] in Urine by Test strip Normal [facility] Hemoglobin Test strip Ql (U) Ordered By: Tobi Monroy on 04-12-2024 Hemoglobin Ql (U) Hemoglobin [Presence ] in Urine by Test strip [facility] Negative [facility] Heparin anti-Xa unfractionat edOrdered By: Keron Gutierres on 04-12-2024 Heparin unfractionated Chromogenic method Qn (PPP) Heparin anti-Xa unfractionated 0.30-0.70 [facility] Comment on above: Use the [...] [#/area] in Urine sediment by Automated count [facility] 0-8 [facility] Ketones Test strip Ql (U)Ord ered By: Tobi Monroy on 04-12-2024 Ketones Ql (U) Ketones [Presence] i n Urine by Test strip [facility] Negative [facility] Leukocyte clumps [Presence] in Urine by AutomatedOrdered By: Tobi Monroy on 04-12-2024 Leukocyte clumps Auto Ql (U) Leukocyte clumps [Presence] in Urine by Automated High None Seen [facility] Leukocyte esterase [Presence ] in Urine by Test stripOrdered By: Tobi Monroy on 04-12-2024 Leukocyte esterase Test strip Ql (U) Leukocyte esterase [Presence] in Urine by Test strip High Negative [facility] Leukocytes [#/area] in Urine sediment by Automated countOrdered By: Tobi Monroy on 04-12-2024 WBC Auto (Urine sed) [#/Area] Leukocytes [#/area] in Urine sediment by Automated count High 0-4 [facility] Mucus [Presence] in Urine by AutomatedOrdered By: Tobi Monroy on 04-12-2024 Mucus Auto Ql (U) Mucus [Presence] in Urine by Automated Abnormal [facility] Nitrite Test strip Ql (U)Ord ered By: Tobi Monroy on 04-12-2024 Nitrite Ql (U) Nitrite [Presence] i n Urine by Test strip Negative [facility] Protein Creat Ratio Ur Rando mon 04-12-2024 Creatinine, Urine (Random) 102.00 mg/dL Normal [facility] Comment on above: Result Comment: No r eference range established Performed By: #### C UU, ADDONUAPLUS #### [facility] [address] Protein (U) [Mass/Vol] 44 mg/dL High 0-9 Th [facility] Comment on above: Performed By: #### C UU, ADDONUAPLUS #### [facility] [address] Urine Protein/Creatinine Ratio 431 mg/g{Cre} High 0-200 [facility] Comment on above: Result Comment: PERF ORMED BY: [place] [address] PATHOLOGIST CLAY THROWER RADHA MANNING M.D. Performed By: #### C UU, ADDONUAPLUS #### [facility] [address] Protein Test strip (U) [Mass /Vol]Ordered By: Tobi Monroy on 04-12-2024 Protein (U) [Mass/Vol] Protein [Mass/vol ume] in Urine by Test strip High Negative [facility] Protein [Mass/volume] in Uri neOrdered By: Tobi Monroy on 04-12-2024 Protein (U) [Mass/Vol] Protein [Mass/vol ume] in Urine High 0-9 [facility] Specific gravity Test strip (U) [Rel density]Ordered By: Tobi Monroy on 04-12-2024 Specific gravity (U) [Rel density] Specific gravity of Urine by Test strip 1.001-1.03 0 [facility] US renal BIon 04-12-2024 US renal BI [place] [address] Ultrasound Report Signed Patient: Corwin Muller MR#: [id number] : 1945 Acct:[id number] Age/Sex: 79 / M ADM Date: 04/10/24 Loc: Room: [address] [place] [address] Type: ADM IN Attending Dr: Jersey Bess [...] Jones Pedro M.D.04/12/2024 9:34 PM Dictation Location: [place] [address] Tech: Lacey Archer Transcribed By: RK 04/12/242133 Dictated By: Jones Pedro II, MD 04/12/242132 Signed By: 04/12/242133 Normal [facility] Urine Cultureon 04-12-2024 Bacteria identified Cx Nom (U) ORGANISM: Staphylococcus epidermidis (O:STAEPI) Council Count >100,000 Aerobic JONATHAN Charge (PCMIC38) SUSCEPTIBILITY [...] RESISTANT TO ALL B-LACTAM DRUGS. PERFORMED BY: [place] [address] PATHOLOGIST CLAY THROWER RADHA MANNING M.D. Normal [facility] Comment on above: Performed By: #### C CHANEL, J LUISPLUS #### [address] Urine cultureOrdered By: Qing Monroy on 04-12-2024 Bacteria identified Cx Nom (U) Abnormal [facility] Bacteria identified Cx Nom (U) Abnormal [facility] Urine protein/creatinine rat ioOrdered By: Tobi Monroy on 04-12-2024 Protein/Creatinine (U) [Ratio] Urine protein/creatinine ratio High 0-200 [facility] Urobilinogen Test strip (U) [Mass/Vol]Ordered By: Tobi Monroy on 04-12-2024 Urobilinogen (U) [Mass/Vol] Urobilinogen [Mass/volume] in Urine by Test strip Normal [facility] Yeast.budding [Presence] in Urine by Computer assisted methodOrdered By: Tobi Monroy on 04-12-2024 Yeast.budding Computer assisted Ql (U) Yeast.budding [Presence] in Urine by Computer assisted method High None Seen [facility] pH Test strip (U)Ordered By: Tobi Monroy on 04-12-2024 pH (U) pH of Urine by Test strip 5.0-9.0 [facility] Anti-Xa UF Heparinon 025 Anti-Xa UF Heparin 0.24 [IU]/mL Low 0.30-0.70 [facility] Comment on above: Result Comment: Use the aPTT protocol when triglycerides are > 800 mg/dL, total bilirubin is > 20 mg/dL and/or patient has received a DOAC, Fondaparinux or LMWH within 72 hours AND baseline anti-Xa level is > 0.7 units/mL PERFORMED BY: [place] [address] PATHOLOGIST CLAY THROWER RADHA MANNING M.D. Performed By: #### U FH #### [address] Anti-Xa UF Heparin 0.56 [IU]/mL Normal 0.30-0.70 [facility] Comment on above: Result Comment: Use the aPTT protocol when triglycerides are > 800 mg/dL, total bilirubin is > 20 mg/dL and/or patient has received a DOAC, Fondaparinux or LMWH within 72 hours AND baseline anti-Xa level is > 0.7 units/mL PERFORMED BY: [place] [address] PATHOLOGIST CLAY THROWER RADHA MANNING M.D. Performed By: #### C UU, ADDONUAPLUS #### [address] Complete Blood Count Auto Di ffon 04-11-2024 Basophils (Bld) [#/Vol] 0.0 10*3/uL Normal 0.0-0.2 [facility] Comment on above: Result Comment: PERF ORMED BY: [place] [address] PATHOLOGIST CLAY THROWER RADHA MANNING M.D. Performed By: #### C UU, ADDONUAPLUS #### [address] Basophils/100 WBC (Bld) 0.4 % Normal . T felipe [facility] Comment on above: Performed By: #### C UU, ADDONUAPLUS #### [address] Eosinophils (Bld) [#/Vol] 0.4 10*3/uL Normal 0.0-0.45 [facility] Comment on above: Performed By: #### C UU, ADDONUAPLUS #### [address] Eosinophils/100 WBC (Bld) 4.3 % Normal . [facility] Comment on above: Performed By: #### C UU, ADDONUAPLUS #### [address] Erythrocyte distribution width (RBC) [Ratio] 14.3 % Normal 12.0-14.8 [facility] Comment on above: Performed By: #### C UU, ADDONUAPLUS #### [address] Hematocrit (Bld) [Volume fraction] 42.1 % Normal 38.8-50.0 [facility] Comment on above: Performed By: #### C UU, ADDONUAPLUS #### [address] Hemoglobin (Bld) [Mass/Vol] 14.6 g/dL Normal 13.0-17.0 [facility] Comment on above: Performed By: #### C UU, ADDONUAPLUS #### [place] [address] [place] Lymphocytes (Bld) [#/Vol] 2.0 10*3/uL Normal 1.00-4.8 [facility] Comment on above: Performed By: #### C UU, ADDONUAPLUS #### [place] [address] [place] Lymphocytes/100 WBC (Bld) 21.4 % Normal . [facility] Comment on above: Performed By: #### C UU, ADDONUAPLUS #### [address] MCH (RBC) [Entitic mass] 30.6 pg Normal 27.5-35.2 [facility] Comment on above: Performed By: #### C UU, ADDONUAPLUS #### [address] MCV (RBC) [Entitic vol] 88.1 fL Normal 83.5-101 T [facility] Comment on above: Performed By: #### C UU, ADDONUAPLUS #### [address] Mean Corpuscular HGB Conc 34.7 g/dL Normal 32.5-35.6 [facility] Comment on above: Performed By: #### C UU, ADDONUAPLUS #### [address] Monocytes (Bld) [#/Vol] 1.0 10*3/uL High 0.0-0.8 [facility] Comment on above: Performed By: #### C UU, ADDONUAPLUS #### [address] Monocytes/100 WBC (Bld) 10.9 % Normal . [facility] Comment on above: Performed By: #### C UU, ADDONUAPLUS #### [address] Neutrophils (Bld) [#/Vol] 5.9 10*3/uL Normal 1.8-7.7 [facility] Comment on above: Performed By: #### C UU, ADDONUAPLUS #### [address] Neutrophils/100 WBC (Bld) 63.0 % Normal . [facility] Comment on above: Performed By: #### C UU, ADDONUAPLUS #### [place] [address] [place] NRBC% 0.1 /100{WBC} Normal 0-0.5 [facility] Comment on above: Performed By: #### C UU, ADDONUAPLUS #### [address] Platelet mean volume (Bld) [Entitic vol] 8.1 fL Normal 6.6-10.1 [facility] Comment on above: Performed By: #### C UU, ADDONUAPLUS #### [address] Platelets (Bld) [#/Vol] 255 10*3/uL Normal 150-450 [facility] Comment on above: Performed By: #### C UU, ADDONUAPLUS #### [address] RBC (Bld) [#/Vol] 4.78 10*6/uL Normal 3.90-5.60 [facility] Comment on above: Performed By: #### C UU, ADDONUAPLUS #### [address] WBC (Bld) [#/Vol] 9.4 10*3/uL Normal 4.1-10.5 [facility] Comment on above: Performed By: #### C UU, ADDONUAPLUS #### [address] Comprehensive Metabolic Pane nazanin 04-11-2024 Albumin [Mass/Vol] 3.6 g/dL Normal 3.5-5.7 [facility] Comment on above: Performed By: #### C UU, ADDONUAPLUS #### [address] Albumin/Globulin [Mass ratio] 1.3 {ratio} Normal [facility] Comment on above: Performed By: #### C UU, ADDONUAPLUS #### [address] ALP [Catalytic activity/Vol] 50 U/L Normal 34-104 [facility] Comment on above: Performed By: #### C UU, ADDONUAPLUS #### [facility] [address] ALT [Catalytic activity/Vol] 14 U/L Normal 7-52 [facility] Comment on above: Performed By: #### C UU, ADDONUAPLUS #### [facility] [address] Anion gap [Moles/Vol] 12.5 mmol/L Normal 6.0-15.0 [facility] Comment on above: Performed By: #### C UU, ADDONUAPLUS #### [address] AST [Catalytic activity/Vol] 19 U/L Normal 13-39 [facility] Comment on above: Performed By: #### C UU, ADDONUAPLUS #### [address] Bilirubin [Mass/Vol] 1.0 mg/dL Normal 0.3-1.0 [facility] Comment on above: Performed By: #### C UU, ADDONUAPLUS #### [place] [address] [place] Calcium [Mass/Vol] 8.7 mg/dL Normal 8.6-10.3 [facility] Comment on above: Performed By: #### C UU, ADDONUAPLUS #### [place] [address] [place] Chloride [Moles/Vol] 104 mmol/L Normal 98-107 [facility] Comment on above: Performed By: #### C UU, ADDONUAPLUS #### [place] [address] [place] CO2 [Moles/Vol] 25.6 mmol/L Normal 21.0-31.0 [facility] Comment on above: Performed By: #### C UU, ADDONUAPLUS #### [facility] [address] [place] [address] [place] Creatinine [Mass/Vol] 2.34 mg/dL High 0.70-1.30 [facility] Comment on above: Performed By: #### C UU, ADDONUAPLUS #### [address] Creatinine Clr Calc Pharmacy 30.91 Normal [facility] Comment on above: Result Comment: PERF ORMED BY: [place] [address] PATHOLOGIST CLAY THROWER RADHA MANNING M.D. Performed By: #### C UU, ADDONUAPLUS #### [address] Estimated GFR 27.431 mL/Min Normal [facility] Comment on above: Performed By: #### C UU, ADDONUAPLUS #### [address] Globulin (S) [Mass/Vol] 2.8 g/dL Normal T he [facility] Comment on above: Performed By: #### C UU, ADDONUAPLUS #### [address] Glucose [Mass/Vol] 95 mg/dL Normal 70-100 [facility] Comment on above: Result Comment: [facility] Glucose Reference Range is dependent on time and content of last meal. Glucose of more than 200 mg/dL in a nonstressed, ambulatory subject supports the diagnosis of Diabetes Mellitus. ADA recommended reference range Performed By: #### C UU, ADDONUAPLUS #### [address] Potassium [Moles/Vol] 3.1 mmol/L Low 3.5-5.1 [facility] Comment on above: Performed By: #### C UU, ADDONUAPLUS #### [address] Protein [Mass/Vol] 6.4 g/dL Normal 6.4-8.9 [facility] Comment on above: Performed By: #### C UU, ADDONUAPLUS #### [address] Sodium [Moles/Vol] 139 mmol/L Normal 136-145 [facility] Comment on above: Performed By: #### C VENU BUCHANANUAPLUS #### [facility] [address] Urea nitrogen [Mass/Vol] 30 mg/dL High 7-25 [facility] Comment on above: Performed By: #### C SHERWIN BUCHANANONUAPLUS #### [facility] [address] [place] [address] ECG 12 lead ECGon 04-11-2024 ECG 12 lead ECG [facility] [place] [address] [place] [address] Electrocardiograph Report Signed Patient: Corwin Muller MR#: [id number] : 1945 Acct:[id number] Age/Sex: 79 / M ADM Date: 04/10/24 Loc: Room: [address] [place] [address] Type: ADM IN Attending Dr: Jersey Bess [...] replaced Sinus rhythm Confirmed by Bubba Jessica ([id number]) on 04/11/2024 2:15:02 PM Referred By: Electronically Signed By: Bubba Jessica Transcribed By: MUS Signed By Bubba Jessica MD 04/11/24 1415 Normal [facility] Anti-Xa UF Heparinon 025 Anti-Xa UF Heparin <0.04 Low 0.30-0.70 [facility] Comment on above: Result Comment: Use the aPTT protocol when triglycerides are > 800 mg/dL, total bilirubin is > 20 mg/dL and/or patient has received a DOAC, Fondaparinux or LMWH within 72 hours AND baseline anti-Xa level is > 0.7 units/mL PERFORMED BY: [place] [address] PATHOLOGIST CLAY THROWER RADHA MANNING M.D. Performed By: #### P P, UFHEP, HS TROP #### [address] Basic Metabolic Panelon 03-23 Anion gap [Moles/Vol] 12.0 mmol/L Normal 6.0-15.0 e [facility] Comment on above: Performed By: #### P P, UFHEP, HS TROP #### [address] Calcium [Mass/Vol] 9.2 mg/dL Normal 8.6-10.3 [facility] Comment on above: Performed By: #### P P, UFHEP, HS TROP #### [address] Chloride [Moles/Vol] 108 mmol/L High 98-107 [facility] Comment on above: Performed By: #### P P, UFHEP, HS TROP #### [address] CO2 [Moles/Vol] 22.6 mmol/L Normal 21.0-31.0 [facility] Comment on above: Performed By: #### P P, UFHEP, HS TROP #### [place] [address] [place] Creatinine [Mass/Vol] 2.36 mg/dL High 0.70-1.30 [facility] Comment on above: Performed By: #### P P, UFHEP, HS TROP #### [place] [address] [place] Creatinine Clr Calc Pharmacy 30.65 Normal [facility] Comment on above: Performed By: #### P P, UFHEP, HS TROP #### [address] [place] [address] [place] Estimated GFR 27.152 mL/Min Normal [facility] Comment on above: Performed By: #### P P, UFHEP, HS TROP #### [facility] [address] Glucose [Mass/Vol] 109 mg/dL High 70-100 [facility] Comment on above: Result Comment: [facility] Glucose Reference Range is dependent on time and content of last meal. Glucose of more than 200 mg/dL in a nonstressed, ambulatory subject supports the diagnosis of Diabetes Mellitus. ADA recommended reference range Performed By: #### P P, UFHEP, HS TROP #### [facility] [address] Potassium [Moles/Vol] 3.6 mmol/L Normal 3.5-5.1 [facility] Comment on above: Performed By: #### P P, UFHEP, HS TROP #### [place] [address] [place] Sodium [Moles/Vol] 139 mmol/L Normal 136-145 [facility] Comment on above: Performed By: #### P P, UFHEP, HS TROP #### [address] Urea nitrogen [Mass/Vol] 28 mg/dL High 7-25 [facility] Comment on above: Performed By: #### P P, UFHEP, HS TROP #### [address] Cholesterol [Mass/volume] in Serum or PlasmaOrdered By: Holly Weinberg on 04-10-2024 Cholesterol [Mass/Vol] Cholesterol [Mass /volume] in Serum or Plasma 140-200 [facility] Comment on above: Chol less than 200 m g/dl low riskChol 201-239 mg/dl borderline riskChol 240 mg/dl and greater high risk Cholesterol in HDL [Mass/vol ume] in Serum or PlasmaOrdered By: Holly Weinberg on 04-10-2024 Cholesterol in HDL [Mass/Vol] Serum or plasma high density lipoprotein (HDL) cholesterol measurement [facility] Comment on above: HDL CHOL ATP-III CLA SSIFICATION Cardiovascular RiskHDL > or equal to 60 mg/dL LOWHDL < 40 mg/dL HIGH Cholesterol in LDL Calc [Mas s/Vol]Ordered By: Holly Weinberg on 04-10-2024 Cholesterol in LDL [Mass/Vol] Cholesterol in LDL [Mass/volume] in Serum or Plasma by calculation High 0-100 [facility] Comment on above: LDL ATP III CLASSIFI CATIONLDL less than 100 mg/dL OptimalLDL 100-129 mg/dL Near or above optimalLDL 130-159 mg/dL Borderline highLDL 160-189 mg/dL HighLDL greater than 189 mg/dL Very high Cholesterol in VLDL Calc [Ma ss/Vol]Ordered By: Holly Weinberg on 04-10-2024 Cholesterol in VLDL [Mass/Vol] Cholesterol in VLDL [Mass/volume] in Serum or Plasma by calculation [facility] Coagulation Profileon 2024 aPTT Coag (Bld) [Time] 28.8 s Normal 25.1-36.5 Th e [facility] Comment on above: Result Comment: A he matocrit value greater than 55% may lead to inaccurate results in coagulation testing. Patients having hematocrit values >55% require a special collection tube for coagulation studies. Please contact the laboratory at [phone] for redraw instructions. Performed By: #### P P, UFHEP, HS TROP #### [facility] [address] [place] [id number] [facility] INR Coag (PPP) [Relative time] 1.2 {INR} Normal [facility] Comment on above: Result Comment: [...] #### P P, UFHEP, HS TROP #### [facility] [address] [place] [address] [place] PT Coag (PPP) [Time] 13.2 s High 9.0-12.9 [facility] Comment on above: Result Comment: A matocrit value greater than 55% may lead to inaccurate results in coagulation testing. Patients having hematocrit values >55% require a special collection tube for coagulation studies. Please contact the laboratory at [phone] for redraw instructions. Performed By: #### P P, UFHEP, HS TROP #### [address] Complete Blood Count Auto Di ffon 04-10-2024 Basophils (Bld) [#/Vol] 0.1 10*3/uL Normal 0.0-0.2 [facility] Comment on above: Result Comment: PERF ORMED BY: [place] [address] PATHOLOGIST CLAY THROWER RADHA MANNING M.D. Performed By: #### P P, UFHEP, HS TROP #### [address] Basophils/100 WBC (Bld) 0.7 % Normal . T [facility] Comment on above: Performed By: #### P P, UFHEP, HS TROP #### [address] Eosinophils (Bld) [#/Vol] 0.3 10*3/uL Normal 0.0-0.45 [facility] Comment on above: Performed By: #### P P, UFHEP, HS TROP #### [address] Eosinophils/100 WBC (Bld) 2.4 % Normal . [facility] Comment on above: Performed By: #### P P, UFHEP, HS TROP #### [address] Erythrocyte distribution width (RBC) [Ratio] 14.3 % Normal 12.0-14.8 [facility] Comment on above: Performed By: #### P P, UFHEP, HS TROP #### [address] Hematocrit (Bld) [Volume fraction] 44.8 % Normal 38.8-50.0 [facility] Comment on above: Performed By: #### P P, UFHEP, HS TROP #### [address] Hemoglobin (Bld) [Mass/Vol] 15.1 g/dL Normal 13.0-17.0 [facility] Comment on above: Performed By: #### P P, UFHEP, HS TROP #### [address] Lymphocytes (Bld) [#/Vol] 2.0 10*3/uL Normal 1.00-4.8 [facility] Comment on above: Performed By: #### P P, UFHEP, HS TROP #### [address] Lymphocytes/100 WBC (Bld) 17.3 % Normal . [facility] Comment on above: Performed By: #### P P, UFHEP, HS TROP #### [address] MCH (RBC) [Entitic mass] 30.0 pg Normal 27.5-35.2 [facility] Comment on above: Performed By: #### P P, UFHEP, HS TROP #### [address] MCV (RBC) [Entitic vol] 88.7 fL Normal 83.5-101 T [facility] Comment on above: Performed By: #### P P, UFHEP, HS TROP #### [address] Mean Corpuscular HGB Conc 33.8 g/dL Normal 32.5-35.6 [facility] Comment on above: Performed By: #### P P, UFHEP, HS TROP #### [address] Monocytes (Bld) [#/Vol] 1.1 10*3/uL High 0.0-0.8 [facility] Comment on above: Performed By: #### P P, UFHEP, HS TROP #### [facility] [address] [place] [address] [place] Monocytes/100 WBC (Bld) 10.0 % Normal . T he [facility] Comment on above: Performed By: #### P P, UFHEP, HS TROP #### [address] Neutrophils (Bld) [#/Vol] 7.9 10*3/uL High 1.8-7.7 [facility] Comment on above: Performed By: #### P P, UFHEP, HS TROP #### [place] [address] [place] Neutrophils/100 WBC (Bld) 69.6 % Normal . [facility] Comment on above: Performed By: #### P P, UFHEP, HS TROP #### [place] [address] [place] NRBC% 0.1 /100{WBC} Normal 0-0.5 [facility] Comment on above: Performed By: #### P P, UFHEP, HS TROP #### [place] [address] [place] Platelet mean volume (Bld) [Entitic vol] 8.3 fL Normal 6.6-10.1 [facility] Comment on above: Performed By: #### P P, UFHEP, HS TROP #### [place] [address] [place] Platelets (Bld) [#/Vol] 252 10*3/uL Normal 150-450 [facility] Comment on above: Performed By: #### P P, UFHEP, HS TROP #### [place] [address] [place] RBC (Bld) [#/Vol] 5.05 10*6/uL Normal 3.90-5.60 [facility] Comment on above: Performed By: #### P P, UFHEP, HS TROP #### [place] [address] [place] WBC (Bld) [#/Vol] 11.3 10*3/uL High 4.1-10.5 [facility] Comment on above: Performed By: #### P P, UFHEP, HS TROP #### [address] [address] [facility] ECG 12 lead ECGon 04-10-2024 ECG 12 lead ECG [place] [address] Electrocardiograph Report Signed Patient: Corwin Muller MR#: [id number] : 1945 Acct:[id number] Age/Sex: 79 / M ADM Date: 04/10/24 Loc: Room: [address] [place] [address] Type: ADM IN Attending Dr: Jersey Bess [...] in Lateral leads Confirmed by Bubba Jessica ([id number]) on 04/11/2024 2:09:58 PM Referred By: Electronically Signed By: Bubba Jessica Transcribed By: MUS Signed By Bubba Jessica MD 04/11/24 1410 Normal [facility] ECG 12 lead ECG [facility] Main [place] [id number] Electrocardiograph Report Signed Patient: Corwin Muller MR#: [id number] : 1945 Acct:[id number] Age/Sex: 79 / M ADM Date: 04/10/24 Loc: Room: [address] [place] [address] Type: ADM IN Attending Dr: Jersey Bess [...] rhythm, needs review Confirmed by Bubba Jessica ([id number]) on 04/10/2024 2:56:03 PM Referred By: Electronically Signed By: Bubba Jessica Transcribed By: MUS Signed By Bubba Jessica MD 04/10/24 1456 Normal [facility] ECG 12 lead ECG [place] [address] Electrocardiograph Report Signed Patient: Corwin Muller MR#: [id number] : 1945 Acct:[id number] Age/Sex: 79 / M ADM Date: 04/10/24 Loc: Room: [address] [place] [address] Type: ADM IN Attending Dr: Jersey Bess [...] , age undetermined Confirmed by Bubba Jessica ([id number]) on 04/10/2024 3:54:01 PM Referred By: Electronically Signed By: Bubba Jessica Transcribed By: MUS Signed By Bubba Jessica MD 04/10/24 1554 Normal [facility] echo transthoracicon [facility] echo transthoracic [facility] Main [place] [address] [place] [address] Echocardiogram Signed Patient: Corwin Muller MR#: [id number] : 1945 Acct:[id number] Age/Sex: 79 / M ADM Date: 04/10/24 Loc: Room: [address] [place] [address] Type: ADM IN Attending Dr: Jersey Bess MD Ordering Provider: Holly Weinberg, [employer] LAB[employer] Date of Service: 04/10/24 [facility] echo transthoracic: chf, nstemi Copies to: MD Holly Ledesma, [employer] LAB[employer] Height: 76 in Weight: 228 lb Performed [...] Bubba Jessica MD 04/10/24 1414 Normal [facility] INR in Platelet poor plasma by Coagulation assayOrdered By: Kurtis Langley on 04-10-2024 INR Coag (PPP) [Relative time] INR in Platelet poor plasma by Coagulation assay [facility] Comment on above: INR Therapeutic [...] [Mass/Vol] 168 mg/dL Normal 140-200 Th e [facility] Comment on above: Result Comment: Chol less than 200 mg/dl low risk Chol 201-239 mg/dl borderline risk Chol 240 mg/dl and greater high risk Performed By: #### P P, UFHEP, HS TROP #### [address] Cholesterol in HDL [Mass/Vol] 26 mg/dL Normal 23-92 [facility] Comment on above: Result Comment: HDL CHOL ATP-III CLASSIFICATION Cardiovascular Risk HDL > or equal to 60 mg/dL LOW HDL < 40 mg/dL HIGH Performed By: #### P P, UFHEP, HS TROP #### [address] Cholesterol.total/Rowan sterol in HDL [Mass ratio] 6.5 {ratio} Normal <5.0 [facility] Comment on above: Result Comment: PERF ORMED BY: [place] [address] PATHOLOGIST CLAY THROWER RADHA MANNING M.D. Performed By: #### P P, UFHEP, HS TROP #### [address] LDL Cholesterol,Calculated 120 mg/dL High 0-100 [facility] Comment on above: Result Comment: LDL ATP III CLASSIFICATION LDL less than 100 mg/dL Optimal LDL 100-129 mg/dL Near or above optimal LDL 130-159 mg/dL Borderline high LDL 160-189 mg/dL High LDL greater than 189 mg/dL Very high Performed By: #### P P, UFHEP, HS TROP #### [address] Triglyceride w/Reflex 108 mg/dL Normal 0-149 [facility] Comment on above: Result Comment: TRIG ATP III CLASSIFICATION TRIG less than 150 mg/dL Normal TRIG 150-199 mg/dL Borderline high TRIG 200-500 mg/dL High TRIG greater than 500 mg/dL Very high Standard traceable to the Center for Disease Conrtrol and Prevention (CDC) test method. Performed By: #### P P, UFHEP, HS TROP #### [address] VLDL CHOLESTEROL 21 mg/dL Normal [facility] Comment on above: Performed By: #### P P, UFHEP, HS TROP #### [facility] [address] [place] [id number] [place] Magnesiumon 04-10-2024 Magnesium [Mass/Vol] 2.0 mg/dL Normal 1.9-2.7 [facility] Comment on above: Performed By: #### P P, UFHEP, HS TROP #### [facility] [address] [place] [id number] [place] Prothrombin time (PT)Ordered By: Kurtis Langley on 04-10-2024 PT Coag (PPP) [Time] Prothrombin time (PT) High 9.0- 12.9 [facility] Comment on above: A hematocrit value g reater than 55% may lead to inaccurate results in coagulation testing. Patients having hematocrit values >55% require a special collection tube for coagulation studies. Please contact the laboratory at [phone] for redraw instructions. Serum or plasma total choles terol/high density lipoprotein (HDL) cholesterol mass ratOrdered By: Holly Weinberg on 04-10-2024 Cholesterol.total/Rowan sterol in HDL [Mass ratio] Serum or plasma total cholesterol/high density lipoprotein (HDL) cholesterol mass rat <5.0 [facility] Triglyceride [Mass/volume] i n Serum or PlasmaOrdered By: Holly Weinberg on 04-10-2024 Triglyceride [Mass/Vol] Triglyceride [Ma ss/volume] in Serum or Plasma 0-149 [facility] Comment on above: TRIG ATP III CLASSIF ICATIONTRIG less than 150 mg/dL NormalTRIG 150-199 mg/dL Borderline highTRIG 200-500 mg/dL High TRIG greater than 500 mg/dL Very highStandard traceable to the Center for Disease Conrtrol and Prevention (CDC) test method. Troponin I High Sensitivityo n 04-10-2024 Troponin I High Sensitivity 639 Off scale high 0-20 [facility] Comment on above: Result Comment: Crit ical Result : Called to and read back by: GI CRUM at: 04/10/2024 08:50:14 by:[id number] The Troponin units of report have been changed to meet the Chest Pain Accreditation requirement, element EC5.M1l2. Troponin units are changed from pg/ml to ng/L. Also, the decimal is removed and results are in whole numbers. PERFORMED BY: [place] [id number] PATHOLOGIST CLAY THROWER RADHA MANNING M.D. Performed By: #### P P, UFHEP, HS TROP #### [facility] [address] [place] [address] [place] Troponin I High Sensitivity 815 Off scale high 0-20 [facility] Comment on above: Result Comment: Crit ical Result : Called to and read back by: ETHEL MILLARD at: 04/10/2024 04:08:18 by:YASSINE The Troponin units of report have been changed to meet the Chest Pain Accreditation requirement, element EC5.M1l2. Troponin units are changed from pg/ml to ng/L. Also, the decimal is removed and results are in whole numbers. PERFORMED BY: [place] [id number] PATHOLOGIST CLAY THROWER RADHA MANNING M.D. Performed By: #### P P, UFHEP, HS TROP #### [facility] [address] [place] [address] [place] Troponin I.cardiac [Mass/vol ume] in Serum or Plasma by Detection limit <= 0.01 ng/Ordered By: Holly Weinberg on 04-10-2024 Troponin I.cardiac DL <= 0.01 ng/mL [Mass/Vol] Troponin I.cardiac [Mass/volume] in Serum or Plasma by Detection limit <= 0.01 ng/ Critically high 0-20 [facility] Comment on above: Critical Result : Ca lled to and read back by: GI CRUM at: 04/10/2024 08:50:14 by:[id number] Troponin units of report have been changed to meet the Chest Pain Accreditation requirement, element EC5.M1l2. Troponin units are changed from pg/ml to ng/L. Also, the decimal is removed and results are in whole numbers. X-ray reportOrdered By: Jose A Jenkins on 04-10-2024 Study report [facility] Main [place] [address] [place] [address] XRay Report Signed Patient: Corwin Muller MR#: [id number] : 1945 Acct:[id number] Age/Sex: 79 / M ADM Date: 5 Loc: Room: [address] [place] [address] Type: ADM IN Attending Dr: Jersey Bess MD Copies to: DO Jersey Johansen MD~ Ordering Provider: Ranjan Andersen DO Date of Service: 04/10/24 XR/XR chest 1V portable: sob SINGLE VIEW CHEST CLINICAL HISTORY: Shortness breath COMPARISON: 04/09/2024 FINDINGS: Cardiomegaly. Progression of perihilar and bibasilar airspace disease. Small effusions suspect. no pneumothorax. XR/XR chest 1V portable IMPRESSION: PROGRESSION OF THE PERIHILAR AND BIBASILAR AIRSPACE DISEASE. Impression dictated by: Maximilian Jenkins M.D.04/10/2024 8:47 AM Dictation Location: [place] [address] Transcribed By: [facility] 04/10/24 0847 Dictated By: Maximilian Jenkins MD 04/10/24 0845 Signed By: 04/10/24 0847 [facility] Work Phone: XR chest 1V portableon 04-10 XR chest 1V portable [place] [address] XRay Report Signed Patient: Corwin Muller MR#: [id number] : 1945 Acct:[id number] Age/Sex: 79 / M ADM Date: 04/10/24 Loc: Room: [address] [place] [address] Type: ADM IN Attending Dr: Jersey Bess MD Copies to: DO Jersey Johansen MD Ordering Provider: Ranjan Andersen DO Date of Service: 04/10/24 XR/XR chest 1V portable: sob SINGLE VIEW CHEST CLINICAL HISTORY: Shortness breath COMPARISON: 04/09/2024 FINDINGS: Cardiomegaly. Progression of perihilar and bibasilar airspace disease. Small effusions suspect. no pneumothorax. XR/XR chest 1V portable IMPRESSION: PROGRESSION OF THE PERIHILAR AND BIBASILAR AIRSPACE DISEASE. Impression dictated by: Maximilian Jenkins M.D.04/10/2024 8:47 AM Dictation Location: [place] [address] Transcribed By: [facility] 04/10/2447 Dictated By: Maximilian Jenkins MD 04/10/2445 Signed By: 04/10/24846 Normal [facility] aPTT in Platelet poor plasma by Coagulation assayOrdered By: Kurtis Langley on 04-10-2024 aPTT Coag (PPP) [Time] Activated partial thromboplastin time (aPTT) in platelet poor plasma by coagulation a 25.1-36.5 [facility] Comment on above: A hematocrit value g reater than 55% may lead to inaccurate results in coagulation testing. Patients having hematocrit values >55% require a special collection tube for coagulation studies. Please contact the laboratory at [phone] for redraw instructions. Activated partial thrombopla stin time (aPTT) in platelet poor plasma by coagulation aon 04-09-2024 aPTT Coag (PPP) [Time] Activated partial thromboplastin time (aPTT) in platelet poor plasma by coagulation a 22.3-36.2 [facility] Basophils Auto (Bld) [#/Vol] on 04-09-2024 Basophils (Bld) [#/Vol] Automated basophil count 0.0-0.1 [facility] Basophils/100 WBC Auto (Bld) on 04-09-2024 Basophils/100 WBC (Bld) Automated basophil % 0. 2-2.0 [facility] Eosinophils/100 WBC Auto (Bl d)on 04-09-2024 Eosinophils/100 WBC (Bld) Automated eosinophil % 0.9-7.0 [facility] Erythrocyte distribution wid th Auto (RBC) [Ratio]on 04-09-2024 Erythrocyte distribution width (RBC) [Ratio] Erythrocyte distribution width [Ratio] by Automated count 11.0-15.0 [facility] Estimated glomerular filtrat ion rate (GFR) non- Americanon 04-09-2024 GFR/1.73 sq M.predicted among non-blacks MDRD (S/P/Bld) [Vol rate/Area] Estimated glomerular filtration rate (GFR) non- Low >=60 mL/min/1.7 3m 2 [facility] Hematocrit Auto (Bld) [Volum e fraction]on 04-09-2024 Hematocrit (Bld) [Volume fraction] Hematocrit [Volume Fraction] of Blood by Automated count 42.0-54.0 [facility] Hemoglobin [Mass/volume] in Bloodon 04-09-2024 Hemoglobin (Bld) [Mass/Vol] Hemoglobin [Mass/volume] in Blood 14.0-18.0 [facility] INR in Platelet poor plasma by Coagulation assayon 04-09-2024 INR Coag (PPP) [Relative time] INR in Platelet poor plasma by Coagulation assay [facility] Comment on above: DESIRED INR:2.0-3.0 CONDITIONS NOT LISTED BELOW2.5-3.5 FOR PROSTHETIC HEART VALVE REPLACEMENT2.5-3.5 RECURRENT THROMBOSIS Laboratory - Chemistry and C hemistry - challengeon 04-09-2024 Calcium [Mass/Vol] 9.4 mg/dL 8.5-10.1 [facility] Chloride [Moles/Vol] 103 mmol/L 98-107 [facility] CO2 [Moles/Vol] 24.6 mmol/L 21.0-32.0 [facility] Creatinine [Mass/Vol] 2.62 mg/dL High 0.70-1.30 [facility] GFR/1.73 sq M.predicted MDRD (S/P/Bld) [Vol rate/Area] 29 mL/min/{1.73_m2} Low >=60 mL/min/1.7 3m 2 [facility] Glucose [Mass/Vol] 108 mg/dL High 74-106 [facility] Magnesium [Mass/Vol] 2.0 mg/dL 1.8-2.4 [facility] Natriuretic peptide B (Bld) [Mass/Vol] 8857.0 pg/mL Critically high <=1800.0 [facility] Comment on above: RESULTS CALLED TO Dr Nathaniel Parker Potassium [Moles/Vol] 3.7 mmol/L 3.5-5.1 [facility] Sodium [Moles/Vol] 137 mmol/L 136-145 [facility] Urea nitrogen [Mass/Vol] 29.0 mg/dL High 7.0-18.0 [facility] Urea nitrogen/Creatinine [Mass ratio] 11.1 mg/mg [facility] Laboratory - Hematology and Cell countson 04-09-2024 Immature granulocytes/100 WBC (Bld) 0.4 % 0.0-0.5 [facility] Leukocytes [#/volume] correc ariana for nucleated erythrocytes in Blood by Automated counon 04-09-2024 WBC corrected for nucl RBC Auto (Bld) [#/Vol] Leukocytes [#/volume] corrected for nucleated erythrocytes in Blood by Automated coun 4.0-11.0 [facility] Lymphocytes Auto (Bld) [#/Vo l]on 04-09-2024 Lymphocytes (Bld) [#/Vol] Lymphocytes [#/volume] in Blood by Automated count 1.2-3.8 [facility] Lymphocytes/100 WBC Auto (Bl d)on 04-09-2024 Lymphocytes/100 WBC (Bld) Lymphocytes/100 leukocytes in Blood by Automated count 20.5-60.0 [facility] MCH Auto (RBC) [Entitic mass ]on 04-09-2024 MCH (RBC) [Entitic mass] MCH [Entitic mass] by Automated count 25.9-34.0 [facility] MCHC Auto (RBC) [Mass/Vol]on 04-09-2024 MCHC (RBC) [Mass/Vol] MCHC [Mass/volume] by Automated count 29.9-35.2 [facility] MCV Auto (RBC) [Entitic vol] on 04-09-2024 MCV (RBC) [Entitic vol] MCV [Entitic vol ume] by Automated count 80.0-94.0 [facility] Monocytes Auto (Bld) [#/Vol] on 04-09-2024 Monocytes (Bld) [#/Vol] Automated blood monocyte count High 0.3-0.8 [facility] Monocytes/100 WBC Auto (Bld) on 04-09-2024 Monocytes/100 WBC (Bld) Automated monocyte % 1. 7-12.0 [facility] Neutrophils Auto (Bld) [#/Vo l]on 04-09-2024 Neutrophils (Bld) [#/Vol] Neutrophils [#/volume] in Blood by Automated count 1.4-6.5 [facility] Neutrophils/100 WBC Auto (Bl d)on 04-09-2024 Neutrophils/100 WBC (Bld) Automated neutrophil % 43.0-75.0 [facility] No Panel Informationon 04-09 Troponin I High Sensitivity 896.5 pg/mL Critically high 4.0-76.1 [facility] Comment on above: RESULTS CALLED TO Dr Nathaniel Bsuh-OFF POINTS HAVE BEEN ESTABLISHED BASED ON THE [...] Eosinophils # (Auto) 0.4 10 3/uL 0.0-0.7 [facility] Immature Granulocyte # (Auto) 0.04 10 3/uL High 0.00-0.03 [facility] Platelet mean volume Auto (B ld) [Entitic vol]on 04-09-2024 Platelet mean volume (Bld) [Entitic vol] Platelet mean volume [Entitic volume] in Blood by Automated count 9.5-13.5 [facility] Platelets Auto (Bld) [#/Vol] on 04-09-2024 Platelets (Bld) [#/Vol] Platelets [#/vol ume] in Blood by Automated count 150-450 [facility] Prothrombin time (PT)on 03-23 PT Coag (PPP) [Time] Prothrombin time (PT) 9.0- 11.6 [facility] RBC Auto (Bld) [#/Vol]on RBC (Bld) [#/Vol] Erythrocytes [#/volu me] in Blood by Automated count 4.70-6.10 [facility] Serum or plasma anion gap de terminationon 04-09-2024 Anion gap [Moles/Vol] Serum or plasma an ion gap determination [facility] CBC AUTO DIFFon 12-03-2021 BASO # 0.0 103/ul Normal 0.0-0.1 [facility] Comment on above: Performed By: #### C BC #### [facility] [address] [place] [address] [address] Ludin Parra Basophils/100 WBC (Bld) 0.6 % Normal 0.2-2.0 [facility] Comment on above: Performed By: #### C BC #### [facility] [address] [place] [address] [address] Ludin Parra EO # 0.2 103/ul Normal 0.0-0.7 [facility] Comment on above: Performed By: #### C BC #### [facility] [address] [place] [address] Dr. Ludin Parra Eosinophils/100 WBC (Bld) 3.1 % Normal 0.9-7.0 [facility] Comment on above: Performed By: #### C BC #### [facility] [address] [place] [address] [address] Ludin Parra Erythrocyte distribution width (RBC) [Ratio] 13.1 % Normal 11.0-15.0 [facility] Comment on above: Performed By: #### C BC #### [facility] [address] [place] [address] Dr. Ludin Parra Hematocrit (Bld) [Volume fraction] 47.2 % Normal 42.0-54.0 [facility] Comment on above: Performed By: #### C BC #### [facility] [address] [place] [address] [address] Ludin Parra Hemoglobin (Bld) [Mass/Vol] 15.8 g/dL Normal 14.0-18.0 [facility] Comment on above: Performed By: #### C BC #### [facility] [address] [place] [address] Dr. Ludin Parra IG # 0.03 10e3/ul Normal 0.00-0.03 [facility] Comment on above: Performed By: #### C BC #### [facility] [address] [place] [address] Dr. Ludin Parra IG % 0.4 % Normal 0.0-0.5 [facility] Comment on above: Performed By: #### C BC #### [facility] [address] [place] [address] Dr. Ludin Parra LYMPH # 1.6 103/ul Normal 1.2-3.8 [facility] Comment on above: Performed By: #### C BC #### [facility] [address] [place] [address] Dr. Ludin Parra Lymphocytes/100 WBC (Bld) 22.6 % Normal 20.5-60.0 [facility] Comment on above: Performed By: #### C BC #### [facility] [address] [place] [address] Dr. Ludin Parra MANUAL DIFF REQ NO Normal [facility] Comment on above: Performed By: #### C BC #### [facility] [address] [place] [address] Dr. Ludin Parra MCH (RBC) [Entitic mass] 29.6 pg Normal 25.9-34.0 [facility] Comment on above: Performed By: #### C BC #### [facility] [address] [place] [address] Dr. Ludin Parra MCHC (RBC) [Mass/Vol] 33.5 g/dL Normal 29.9-35.2 [facility] Comment on above: Performed By: #### C BC #### [facility] [address] [place] [address] Dr. Ludin Parra MCV (RBC) [Entitic vol] 88.6 fL Normal 80.0-94.0 [facility] Comment on above: Performed By: #### C BC #### [facility] [address] [place] [address] Dr. Ludin Parra MONO # 0.5 103/ul Normal 0.3-0.8 [facility] Comment on above: Performed By: #### C BC #### [facility] [address] [place] [address] Dr. Ludin Parra Monocytes/100 WBC (Bld) 7.5 % Normal 1.7-12.0 [facility] Comment on above: Performed By: #### C BC #### [facility] [facility] [address] [place] [address] Dr. Ludin Parra NEUT # 4.7 103/ul Normal 1.4-6.5 [facility] Comment on above: Performed By: #### C BC #### [facility] [address] [place] [address] Dr. Ludin Parra Neutrophils/100 WBC (Bld) 65.8 % Normal 43.0-75.0 [facility] Comment on above: Performed By: #### C BC #### [facility] [address] [place] [address] Dr. Ludin Parra Platelet mean volume (Bld) [Entitic vol] 9.0 fL Critically low 9.5-13.5 [facility] Comment on above: Performed By: #### C BC #### [facility] [address] [place] [address] Dr. Ludin Parra PLT 199 103/ul Normal 150-450 [facility] Comment on above: Performed By: #### C BC #### [facility] [address] [place] [address] Dr. Ludin Parra RBC 5.33 106/ul Normal 4.70-6.10 [facility] Comment on above: Performed By: #### C BC #### [facility] [address] [place] [address] Dr. Ludin Parra WBC 7.1 103/ul Normal 4.0-11.0 [facility] Comment on above: Performed By: #### C BC #### [facility] [address] [place] [address] Dr. Ludin Parra PROF CHEM 8 (BAS METB)on Anion gap [Moles/Vol] 9.3 mmol/L Normal [facility] Comment on above: Performed By: #### B MP #### [facility] [address] [place] [address] Dr. Ludin Parra Calcium [Mass/Vol] 8.9 mg/dL Normal 8.5-10.1 [facility] Comment on above: Performed By: #### B MP #### [facility] [address] [place] [address] Dr. Ludin Parra Chloride [Moles/Vol] 106 mmol/L Normal 98-107 [facility] Comment on above: Performed By: #### B MP #### [facility] [address] [address] [address] Luidn Parra CO2 [Moles/Vol] 29.7 mmol/L Normal 21.0-32.0 [facility] Comment on above: Performed By: #### B MP #### [facility] [address] [place] [address] Dr. Ludin Parra Creatinine [Mass/Vol] 1.83 mg/dL Critically high 0.70-1.30 [facility] Comment on above: Performed By: #### B MP #### [facility] [address] [place] [address] Dr. Ludin Parra EGFR-AF SIERRA LEONEAN 44 mL/min/1.73m2 Critically low >=60 [facility] Comment on above: Performed By: #### B MP #### [facility] [address] [place] [address] Dr. Ludin Parra EGFR-NON AF SIERRA LEONEAN 36 mL/min/1.73m2 Critically low >=60 [facility] Comment on above: Performed By: #### B MP #### [facility] [address] [place] [address] Dr. Ludin Parra Glucose [Mass/Vol] 85 mg/dL Normal 74-106 [facility] Comment on above: Performed By: #### B MP #### [facility] [address] [place] [address] Dr. Ludin Parra Potassium [Moles/Vol] 4.0 mmol/L Normal 3.5-5.1 [facility] Comment on above: Performed By: #### B MP #### [facility] [address] [place] [address] Dr. Ludin Parra Sodium [Moles/Vol] 141 mmol/L Normal 136-145 [facility] Comment on above: Performed By: #### B MP #### [facility] [address] [address] [address] Ludin Parra Urea nitrogen [Mass/Vol] 25.0 mg/dL Critically high 7.0-18.0 [facility] Comment on above: Performed By: #### B MP #### [facility] [address] [address] [address] Ludin Parra Urea nitrogen/Creatinine [Mass ratio] 13.7 mg/mg Normal [facility] Comment on above: Performed By: #### B MP #### [facility] [address] [address] [address] Ludin Parra Vital Signs Date Time Vital Sign Value Performing Clinician Facility 10-30-2024 14:03-0400 Body height 193 cm Mely Ken MD Work Phone: [facility] 10-30-2024 14:03-0400 Body mass index (BMI) [Ratio] 26.37 kg/m2 Mely Ken MD Work Phone: [facility] 10-30-2024 14:03-0400 Body weight 98.25 kg Mely Ken MD Work Phone: [facility] 10-30-2024 14:03-0400 Diastolic blood pressure 72 mm[Hg] Mely Ken MD Work Phone: [facility] 10-30-2024 14:03-0400 Heart rate 58 /min Mely Ken MD Work Phone: [facility] 10-30-2024 14:03-0400 Systolic blood pressure 114 mm[Hg] Mely Ken MD Work Phone: [facility] 10-23-2024 15:25-0400 Body height 193.04 cm Ranjan Ball DO Work Phone: [facility] 10-23-2024 15:25-0400 Body mass index (BMI) [Ratio] 26.3 kg/m2 Ranjan Ball DO Work Phone: [facility] 10-23-2024 15:25-0400 Body weight 98.03 kg Ranjan Ball DO Work Phone: [facility] 10-23-2024 15:25-0400 Diastolic blood pressure 71 mm[Hg] Ranjan Ball DO Work Phone: [facility] 10-23-2024 15:25-0400 Diastolic blood pressure 89 mm[Hg] Ranjan Ball DO Work Phone: [facility] 10-23-2024 15:25-0400 Heart rate 60 /min Ranjan Ball DO Work Phone: [facility] 10-23-2024 15:25-0400 Respiratory rate 12 /min Ranjan Ball DO Work Phone: [facility] 10-23-2024 15:25-0400 Systolic blood pressure 144 mm[Hg] Ranjan Ball DO Work Phone: [facility] 10-23-2024 15:25-0400 Systolic blood pressure 139 mm[Hg] Ranjan Ball DO Work Phone: [facility] 09-23-2024 14:02-0400 Body height 193.04 cm Ranjan Ball DO Work Phone: [facility] 09-23-2024 14:02-0400 Body mass index (BMI) [Ratio] 26.2 kg/m2 Ranjan Ball DO Work Phone: [facility] 09-23-2024 14:02-0400 Body weight 97.63 kg Ranjan Ball DO Work Phone: [facility] 09-23-2024 14:02-0400 Diastolic blood pressure 61 mm[Hg] Ranjan Ball DO Work Phone: [facility] 09-23-2024 14:02-0400 Heart rate 61 /min Ranjan Ball DO Work Phone: [facility] 09-23-2024 14:02-0400 Respiratory rate 16 /min Ranjan Ball DO Work Phone: [facility] 09-23-2024 14:02-0400 SaO2% (BldA) [Mass fraction] 96 % Ranjan Ball DO Work Phone: [facility] 09-23-2024 14:02-0400 Systolic blood pressure 116 mm[Hg] Ranjan Ball DO Work Phone: [facility] 09-18-2024 15:06-0400 Body height 193.04 cm Ranjan Ball DO Work Phone: [facility] 09-18-2024 15:06-0400 Body mass index (BMI) [Ratio] 25.9 kg/m2 Ranjan Ball DO Work Phone: [facility] 09-18-2024 15:06-0400 Body weight 96.84 kg Ranjan Ball DO Work Phone: [facility] 09-18-2024 15:06-0400 Diastolic blood pressure 63 mm[Hg] Ranjan Ball DO Work Phone: [facility] 09-18-2024 15:06-0400 Heart rate 69 /min Ranjan Ball DO Work Phone: [facility] 09-18-2024 15:06-0400 Respiratory rate 12 /min Ranjan Ball DO Work Phone: [facility] 09-18-2024 15:06-0400 Systolic blood pressure 126 mm[Hg] Ranjan Ball DO Work Phone: [facility] 08-06-2024 10:40-0400 Body height 193.04 cm Ranjan Ball DO Work Phone: [facility] 08-06-2024 10:40-0400 Body mass index (BMI) [Ratio] 25.8 kg/m2 Ranjan Ball DO Work Phone: [facility] 08-06-2024 10:40-0400 Body weight 96.21 kg Ranjan Ball DO Work Phone: [facility] 08-06-2024 10:40-0400 Diastolic blood pressure 76 mm[Hg] Ranjan Ball DO Work Phone: [facility] 08-06-2024 10:40-0400 Heart rate 61 /min Ranjan Ball DO Work Phone: [facility] 08-06-2024 10:40-0400 Respiratory rate 12 /min Ranjan Ball DO Work Phone: [facility] 08-06-2024 10:40-0400 Systolic blood pressure 123 mm[Hg] Ranjan Ball DO Work Phone: [facility] 07-01-2024 14:34-0400 Body height 193.04 cm Ranjan Ball DO Work Phone: [facility] 07-01-2024 14:34-0400 Body mass index (BMI) [Ratio] 26 kg/m2 Ranjan Ball DO Work Phone: [facility] 07-01-2024 14:34-0400 Body temperature 97.8 [degF] Ranjan Ball DO Work Phone: [facility] 07-01-2024 14:34-0400 Body weight 97.06 kg Ranjan Ball DO Work Phone: [facility] 07-01-2024 14:34-0400 Diastolic blood pressure 65 mm[Hg] Ranjan Ball DO Work Phone: [facility] 07-01-2024 14:34-0400 Heart rate 66 /min Ranjan Ball DO Work Phone: [facility] 07-01-2024 14:34-0400 Respiratory rate 18 /min Ranjan Ball DO Work Phone: [facility] 07-01-2024 14:34-0400 SaO2% (BldA) [Mass fraction] 96 % Ranjan Ball DO Work Phone: [facility] 07-01-2024 14:34-0400 Systolic blood pressure 106 mm[Hg] Ranjan Ball DO Work Phone: [facility] 06-24-2024 14:56-0400 Body height 193.04 cm Ranajn Ball DO Work Phone: [facility] 06-24-2024 14:56-0400 Body mass index (BMI) [Ratio] 25.2 kg/m2 Ranjan Ball DO Work Phone: [facility] 06-24-2024 14:56-0400 Body weight 94.06 kg Ranjan Ball DO Work Phone: [facility] 06-24-2024 14:56-0400 Diastolic blood pressure 84 mm[Hg] Ranjan Ball DO Work Phone: [facility] 06-24-2024 14:56-0400 Heart rate 66 /min Ranjan Ball DO Work Phone: [facility] 06-24-2024 14:56-0400 Respiratory rate 12 /min Ranjan Ball DO Work Phone: [facility] 06-24-2024 14:56-0400 Systolic blood pressure 160 mm[Hg] Ranjan Ball DO Work Phone: [facility] 05-23-2024 13:02-0400 Body height 193.04 cm Ranjan Ball DO Work Phone: [facility] 05-23-2024 13:02-0400 Body mass index (BMI) [Ratio] 26 kg/m2 Ranjan Ball DO Work Phone: [facility] 05-23-2024 13:02-0400 Body temperature 96.9 [degF] Ranjan Ball DO Work Phone: [facility] 05-23-2024 13:02-0400 Body weight 97.06 kg Ranjan Ball DO Work Phone: [facility] 05-23-2024 13:02-0400 Diastolic blood pressure 70 mm[Hg] Ranjan Ball DO Work Phone: [facility] 05-23-2024 13:02-0400 Heart rate 64 /min Ranjan Ball DO Work Phone: [facility] 05-23-2024 13:02-0400 Respiratory rate 16 /min Ranjan Ball DO Work Phone: [facility] 05-23-2024 13:02-0400 SaO2% (BldA) [Mass fraction] 96 % Ranjan Ball DO Work Phone: [facility] 05-23-2024 13:02-0400 Systolic blood pressure 116 mm[Hg] Ranjan Ball DO Work Phone: [facility] 05-08-2024 10:27-0400 Body height 193.04 cm Ranjan Ball DO Work Phone: [facility] 05-08-2024 10:27-0400 Body mass index (BMI) [Ratio] 26.6 kg/m2 Ranjan Ball DO Work Phone: [facility] 05-08-2024 10:27-0400 Body weight 99.45 kg Ranjan Ball DO Work Phone: [facility] 05-08-2024 10:27-0400 Diastolic blood pressure 63 mm[Hg] Ranjan Ball DO Work Phone: [facility] 05-08-2024 10:27-0400 Heart rate 57 /min Ranjan Ball DO Work Phone: [facility] 05-08-2024 10:27-0400 Respiratory rate 12 /min Ranjan Ball DO Work Phone: [facility] 05-08-2024 10:27-0400 Systolic blood pressure 110 mm[Hg] Ranjan Ball DO Work Phone: [facility] 04-29-2024 10:15-0400 Body height 193 cm Mely Ken MD Work Phone: [facility] 04-29-2024 10:15-0400 Body mass index (BMI) [Ratio] 27.24 kg/m2 Mely Ken MD Work Phone: [facility] 04-29-2024 10:15-0400 Body weight 101.52 kg Mely Ken MD Work Phone: [facility] 04-29-2024 10:15-0400 Diastolic blood pressure 60 mm[Hg] Mely Ken MD Work Phone: [facility] 04-29-2024 10:15-0400 Heart rate 53 /min Mely Ken MD Work Phone: [facility] 04-29-2024 10:15-0400 Systolic blood pressure 114 mm[Hg] Mely Ken MD Work Phone: [facility] 04-23-2024 15:21-0500 Body height 193.04 cm Ranjan Ball DO Work Phone: [facility] 04-23-2024 15:21-0500 Body mass index (BMI) [Ratio] 26.7 kg/m2 Ranjan Ball DO Work Phone: [facility] 04-23-2024 15:21-0500 Body temperature 97.8 [degF] Ranjan Ball DO Work Phone: [facility] 04-23-2024 15:21-0500 Body weight 99.79 kg Ranjan Ball DO Work Phone: [facility] 04-23-2024 15:21-0500 Diastolic blood pressure 79 mm[Hg] Ranjan Ball DO Work Phone: [facility] 04-23-2024 15:21-0500 Heart rate 58 /min Ranjan Ball DO Work Phone: [facility] 04-23-2024 15:21-0500 Respiratory rate 18 /min Ranjan Ball DO Work Phone: [facility] 04-23-2024 15:21-0500 SaO2% (BldA) [Mass fraction] 96 % Ranjan Ball DO Work Phone: [facility] 04-23-2024 15:21-0500 Systolic blood pressure 129 mm[Hg] Ranjan Ball DO Work Phone: [facility] 04-23-2024 10:32-0500 Body height 193.04 cm Ranjan Ball DO Work Phone: [facility] 04-23-2024 10:32-0500 Body mass index (BMI) [Ratio] 26.7 kg/m2 Ranjan Ball DO Work Phone: [facility] 04-23-2024 10:32-0500 Body weight 99.79 kg Ranjan Ball DO Work Phone: [facility] 04-23-2024 10:32-0500 Diastolic blood pressure 73 mm[Hg] Ranjan Ball DO Work Phone: [facility] 04-23-2024 10:32-0500 Heart rate 53 /min Ranjan Ball DO Work Phone: [facility] 04-23-2024 10:32-0500 Systolic blood pressure 127 mm[Hg] Ranjan Ball DO Work Phone: [facility] 04-18-2024 11:50-0500 Diastolic blood pressure 63 mm[Hg] Ranjan Ball DO Work Phone: [facility] 04-18-2024 11:50-0500 Heart rate 61 /min Ranjan Ball DO Work Phone: [facility] 04-18-2024 11:50-0500 Respiratory rate 17 /min Ranjan Ball DO Work Phone: [facility] 04-18-2024 11:50-0500 SaO2% (BldA) [Mass fraction] 93 % Ranjan Ball DO Work Phone: [facility] 04-18-2024 11:50-0500 Systolic blood pressure 104 mm[Hg] Ranjan Ball DO Work Phone: [facility] 04-18-2024 08:00-0500 Body temperature 97.8 [degF] Ranjan Ball DO Work Phone: [facility] 04-18-2024 06:00-0500 Body weight 110.3 kg Ranjan Ball DO Work Phone: [facility] 04-17-2024 16:02-0500 Body height 193.04 cm Ranjan Ball DO Work Phone: [facility] 04-16-2024 16:00-0500 Inhaled oxygen flow rate 2 L/min Ranjan Ball DO Work Phone: [facility] 04-12-2024 04:00-0500 Inhaled oxygen concentration 50 % Ranjan Ball DO Work Phone: [facility] 04-09-2024 14:41-0500 Body height 193.04 cm [facility] 04-09-2024 14:41-0500 Body mass index (BMI) [Ratio] 28.3 kg/m2 [facility] 04-09-2024 14:41-0500 Body weight 105.4 kg [facility] 04-09-2024 14:41-0500 Diastolic blood pressure 90 mm[Hg] [facility] 04-09-2024 14:41-0500 Heart rate 144 /min [facility] 04-09-2024 14:41-0500 Respiratory rate 16 /min [facility] 04-09-2024 14:41-0500 Systolic blood pressure 125 mm[Hg] [facility] 11-14-2023 09:58-0400 Body height 193.04 cm [facility] 11-14-2023 09:58-0400 Body mass index (BMI) [Ratio] 27.3 kg/m2 [facility] 11-14-2023 09:58-0400 Body weight 101.66 kg [facility] 11-14-2023 09:58-0400 Diastolic blood pressure 84 mm[Hg] [facility] 11-14-2023 09:58-0400 Heart rate 83 /min [facility] 11-14-2023 09:58-0400 Respiratory rate 14 /min [facility] 11-14-2023 09:58-0400 SaO2% (BldA) [Mass fraction] 97 % [facility] 11-14-2023 09:58-0400 Systolic blood pressure 138 mm[Hg] [facility] 06-27-2023 10:58-0400 Body height 193.04 cm [facility] 06-27-2023 10:58-0400 Body mass index (BMI) [Ratio] 27.5 kg/m2 [facility] 06-27-2023 10:58-0400 Body weight 102.68 kg [facility] 06-27-2023 10:58-0400 Diastolic blood pressure 84 mm[Hg] [facility] 06-27-2023 10:58-0400 Heart rate 91 /min [facility] 06-27-2023 10:58-0400 Respiratory rate 12 /min [facility] 06-27-2023 10:58-0400 Systolic blood pressure 133 mm[Hg] [facility] 02-10-2023 08:30-0500 Body height 193.04 cm Ranjan Ball Other [facility] [employer] Other 02-10-2023 08:30-0500 Body mass index (BMI) [Ratio] 27.87 kg/m2 Ranjan Ball Other [facility] [employer] Other 02-10-2023 08:30-0500 Body weight 103.87 kg Ranjan Ball Other [facility] [employer] Other 02-10-2023 08:30-0500 Diastolic blood pressure 88 mm[Hg] Ranjan Ball Other [facility] [employer] Other 02-10-2023 08:30-0500 Respiratory rate 12 /min Ranjan Ball Other [facility] [employer] Other 02-10-2023 08:30-0500 Systolic blood pressure 136 mm[Hg] Ranjan Ball Other [facility] [employer] Other 10-03-2022 15:45-0400 Body height 193.04 cm Ranjan Ball Other [employer] Other 10-03-2022 15:45-0400 Body mass index (BMI) [Ratio] 26.14 kg/m2 Ranjan Ball Other [employer] Other 10-03-2022 15:45-0400 Body weight 97.43 kg Ranjan Ball Other [employer] Other 10-03-2022 15:45-0400 Diastolic blood pressure 96 mm[Hg] Ranjan Ball Other [employer] Other 10-03-2022 15:45-0400 Respiratory rate 12 /min Ranjan Ball Other [employer] Other 10-03-2022 15:45-0400 Systolic blood pressure 159 mm[Hg] Ranjan Ball Other [employer] Other 07-19-2022 15:00-0400 Body height 193.04 cm Ranjan Ball Other [employer] Other 07-19-2022 15:00-0400 Body mass index (BMI) [Ratio] 26.63 kg/m2 Ranjan Ball Other [employer] Other 07-19-2022 15:00-0400 Body weight 99.25 kg Ranjan Ball Other [employer] Other 07-19-2022 15:00-0400 Diastolic blood pressure 81 mm[Hg] Ranjan Ball Other [employer] Other 07-19-2022 15:00-0400 Respiratory rate 12 /min Ranjan Ball Other [employer] Other 07-19-2022 15:00-0400 Systolic blood pressure 155 mm[Hg] Ranjan Andersen Other [facility] [employer] Other Encounters Encounter Date Encounter Type Care Provider Facility Start: 11-12-2024 End: 11-12-2024 ambulatory Mely Ken Facility:[facility] Start: 11-12-2024 Non-patient / Non-visit Uche Rojo MD -[facility] Work Phone: Start: 10-30-2024 End: 10-30-2024 Office outpatient visit 25 minutes Mely Ken MD Work Phone: 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); Abnormal stress test; Anticoagulation monitoring, special range; BMI 26.0-26.9,adult; Never smoked tobacco Start: 10-23-2024 End: 10-23-2024 ambulatory Ranjan Andersen DO Work Phone: [facility] Work Phone: Start: 10-23-2024 End: 10-23-2024 Patient encounter procedure Ranjan Andersen DO -[facility] Work Phone: Start: 09-24-2024 End: 09-24-2024 ambulatory Ranjan Andersen DO Work Phone: [facility] Work Phone: Start: 09-24-2024 End: 09-24-2024 Patient encounter procedure Ranjan Andersen DO -[facility] Work Phone: Start: 09-23-2024 End: 09-23-2024 ambulatory Ranjan Ball DO Work Phone: [facility] Work Phone: Start: 09-23-2024 End: 09-23-2024 Patient encounter procedure Tobi Monroy MD -[facility] [place] Work Phone: Start: 09-23-2024 End: 09-23-2024 ambulatory Ranjan Ball DO Work Phone: [facility] Work Phone: Start: 09-23-2024 End: 09-23-2024 Patient encounter procedure Tobi Monroy MD -[facility] Work Phone: Start: 09-18-2024 End: 09-18-2024 ambulatory Ranjan Ball DO Work Phone: [facility] Work Phone: Start: 09-18-2024 End: 09-18-2024 Patient encounter procedure Ranjan Ball DO -[facility] Work Phone: Start: 09-18-2024 Non-patient / Non-visit Tobi Monroy MD -[facility] Work Phone: Start: 08-06-2024 End: 08-06-2024 Patient encounter procedure Ranjan Ball DO -[facility] Work Phone: Start: 07-01-2024 End: 07-01-2024 ambulatory Ranjan Ball DO Work Phone: [facility] Work Phone: Start: 07-01-2024 End: 07-01-2024 Patient encounter procedure Ranjan Ball DO Work Phone: [facility] Work Phone: Start: 06-24-2024 End: 06-24-2024 ambulatory Ranjan Ball DO Work Phone: [facility] Work Phone: Start: 06-24-2024 End: 06-24-2024 Patient encounter procedure Ranjan Ball DO Work Phone: [facility] Work Phone: Start: 06-24-2024 Non-patient / Non-visit Benjam in Ball DO Work Phone: [facility] Work Phone: Start: 05-23-2024 End: 05-23-2024 ambulatory Ranjan Andersen DO Work Phone: [facility] Work Phone: Start: 05-23-2024 End: 05-23-2024 Patient encounter procedure Ranjan Andersen DO Work Phone: [facility] Work Phone: Start: 05-13-2024 Non-patient / Non-visit Benjam in Ball DO Work Phone: [facility] Work Phone: Start: 05-08-2024 End: 05-08-2024 ambulatory Ranjan Andersen DO Work Phone: [facility] Work Phone: Start: 05-08-2024 End: 05-08-2024 Patient encounter procedure Ranjan Andersen DO Work Phone: [facility] Work Phone: Start: 05-07-2024 Non-patient / Non-visit Benjam in Nathaly DO Work Phone: [facility] Work Phone: Start: 04-29-2024 End: 04-29-2024 Transitional care manage srvc 14 day discharge Mely Ken MD Work Phone: 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); BMI 27.0-27.9,adult Start: 04-23-2024 End: 04-23-2024 ambulatory Ranjan Andersen DO Work Phone: [place] [facility] Work Phone: Start: 04-23-2024 End: 04-23-2024 Patient encounter procedure Ranajn Ball DO Work Phone: [facility] Work Phone: Start: 04-23-2024 End: 04-23-2024 ambulatory Ranjan Ball DO Work Phone: [facility] Work Phone: Start: 04-23-2024 End: 04-23-2024 Patient encounter procedure Ranjan Ball DO Work Phone: [facility] Work Phone: Start: 04-22-2024 Non-patient / Non-visit Benjam in Ball DO Work Phone: [facility] Work Phone: Start: 04-16-2024 Non-patient / Non-visit Benjam in Ball DO Work Phone: [facility] Work Phone: Start: 04-13-2024 Non-patient / Non-visit Benjam in Ball DO Work Phone: [facility] Work Phone: Start: 04-12-2024 Non-patient / Non-visit Benjam in Ball DO Work Phone: [facility] Work Phone: Start: 04-10-2024 Non-patient / Non-visit Benjam in Ball DO Work Phone: [facility] Work Phone: Start: 04-10-2024 End: 04-18-2024 Evaluation and management of inpatient Ranjan Ball DO Work Phone: [facility] Work Phone: Start: 04-09-2024 End: 04-09-2024 ambulatory [facility] Work Phone: Start: 04-09-2024 End: 04-09-2024 Patient encounter procedure [facility] Work Phone: Start: 11-14-2023 End: 11-14-2023 ambulatory [facility] Work Phone: Start: 11-14-2023 End: 11-14-2023 Patient encounter procedure [facility] Work Phone: Start: 06-27-2023 End: 06-27-2023 ambulatory [facility] Work Phone: Start: 06-27-2023 End: 06-27-2023 Patient encounter procedure [facility] Work Phone: Start: 02-10-2023 End: 02-10-2023 ambulatory Ranjan Ball Other [employer] Other Start: 02-10-2023 Office outpatient vi sit 15 minutes Ranjan Ball [facility] Start: 11-07-2022 End: 11-07-2022 ambulatory Ranjan Ball Other [employer] Other Start: 11-07-2022 Telephone encounter Ranjan [facility] Start: 10-11-2022 End: 10-11-2022 ambulatory Ranjan Ball Other [employer] Other Start: 10-11-2022 Telephone encounter Ranjan Ball [facility] Start: 10-03-2022 End: 10-03-2022 ambulatory Ranjan Ball Other [employer] Other Start: 10-03-2022 Office outpatient vi sit 15 minutes Ranjan Ball [facility] Start: 07-19-2022 End: 07-19-2022 ambulatory Ranjan Ball Other [employer] Other Start: 07-19-2022 Office outpatient vi sit 15 minutes Ranjan Ball [facility] Start: 12-03-2021 End: 12-04-[address] RANJAN ANDERSEN Facility:H1 Procedures Date Procedure Procedure Detail Performing Clinician Start: 10-30-2024 Ecg routine ecg w/le ast 12 lds w/i&r Mely Ken MD Work Phone: Start: 09-23-2024 Urine culture Ranjan Andersen DO Work Phone: Start: 04-29-2024 Ecg routine ecg w/le ast 12 lds w/i&r Mely Ken MD Work Phone: Start: 04-15-2024 Radionuclide myocard ial perfusion stress study Ranjan Andersen DO Work Phone: Start: 04-12-2024 Urine culture Ranjan Andersen DO Work Phone: Start: 04-12-2024 Ultrasonography of b ilateral kidneys Ranjan Andersen DO Work Phone: Start: 04-10-2024 Plain chest X-ray Lalit Andersen DO Work Phone: Start: 12-03-[address] DUKES IN [place] Comment on above: Performed By: #### P [facility] #### [facility] [address] [place] [address] Dr. Ludin Parra Start: 11-17-2015 Hyperlipidemia screening Ranjan Andersen Other Start: 11-17-2015 Screening for malign ant neoplasm of colon Ranjan Andersen Other Screening for malign ant neoplasm of prostate Ranjan Andersen Other Plan of Treatment Date Care Activity Detail Author Start: 11-10-2026 DTaP/Tdap/Td Vaccines (2 - Tdap) DTaP/Tdap/Td Vaccines (2 - Tdap) [facility] Start: 06-12-2025 End: 06-12-2025 Patient encounter procedure 06/12/2025 3:40 PM EDT Office Visit [facility] [address] [facility] [address] [place] [address] Mely Ken MD [address] [facility] [address] [place] [address] [facility] Start: 04-10-2025 Echocardiography Echocardiogram [facility] Start: 10-30-2024 End: 10-30-2025 Alanine aminotransferase [Enzymatic activity/volume] in Serum or Plasma by With P-5'-P Alanine Aminotransferase Lab Routine High risk medication use Persistent atrial fibrillation (Multi) Expected: 10/30/2024 (Approximate), Expires: 10/30/2025 [facility] Service Area Work Phone: Comment on above: Expected: 10/30/2024 (Approximate), Expi res: 10/30/2025 Start: 10-30-2024 End: 10-30-2025 Basic metabolic 2000 panel - Serum or Plasma Basic Metabolic Panel Lab Routine High risk medication use Persistent atrial fibrillation (Multi) Expected: 10/30/2024 (Approximate), Expires: 10/30/2025 [facility] Work Phone: Comment on above: Expected: 10/30/2024 (Approximate), Expi res: 10/30/2025 Start: 10-30-2024 End: 10-30-2025 Complete Pulmonary Function Test (Spirometry/DLCO/Lung Volumes) Complete Pulmonary Function Test (Spirometry/DLCO/Lung Volumes) PFT Routine High risk medication use Persistent atrial fibrillation (Multi) Expected: 10/30/2024 (Approximate), Expires: 10/30/2025 [facility] Work Phone: Comment on above: Expected: 10/30/2024 (Approximate), Expi res: 10/30/2025 Start: 10-30-2024 End: 10-30-2024 Patient encounter procedure 10/30/2024 2:00 PM EDT Office Visit [facility] [address] [facility] [address] [place] [address] Mely Ken MD [address] [facility] [address] [place] [address] [facility] Start: 10-30-2024 End: 10-30-2025 Thyrotropin [Units/volume] in Serum or Plasma Thyroid Stimulating Hormone Lab Routine High risk medication use Persistent atrial fibrillation (Multi) Expected: 10/30/2024 (Approximate), Expires: 10/30/2025 [facility] Work Phone: Comment on above: Expected: 10/30/2024 (Approximate), Expi res: 10/30/2025 Start: 10-30-2024 End: 10-30-2025 XR Chest 2 Views XR chest 2 views Imaging Routine High risk medication use Persistent atrial fibrillation (Multi) Expected: 10/30/2024 (Approximate), Expires: 10/30/2025 [facility] Work Phone: Comment on above: Expected: 10/30/2024 (Approximate), Expi res: 10/30/2025 Start: 10-21-2024 COVID-19 Vaccine ( season) COVID-19 Vaccine () [facility] Start: 10-21-2024 Influenza vaccination Influenza Vaccine (#1) [facility] Start: 09-23-2024 Urine culture [facility] Start: 09-23-2024 Bacteria identified in Urine by Culture Urine Culture [facility] Start: 04-29-2024 End: 04-29-2025 Aspartate aminotransferase [Enzymatic activity/volume] in Serum or Plasma by With P-5'-P Aspartate Aminotransferase Lab Routine Persistent atrial fibrillation (Multi) High risk medication use Expected: 04/29/2024 (Approximate), Expires: 04/29/2025 [facility] Service Area Work Phone: Comment on above: Expected: 04/29/2024 (Approximate), Expi res: 04/29/2025 Start: 04-29-2024 End: 04-29-2025 Basic metabolic 2000 panel - Serum or Plasma Basic Metabolic Panel Lab Routine Persistent atrial fibrillation (Multi) High risk medication use Expected: 04/29/2024 (Approximate), Expires: 04/29/2025 [facility] Work Phone: Comment on above: Expected: 04/29/2024 (Approximate), Expi res: 04/29/2025 Start: 04-29-2024 End: 04-29-2025 Complete Pulmonary Function Test (Spirometry/DLCO/Lung Volumes) Complete Pulmonary Function Test (Spirometry/DLCO/Lung Volumes) PFT Routine Persistent atrial fibrillation (Multi) High risk medication use Expected: 04/29/2024 (Approximate), Expires: 04/29/2025 [facility] Work Phone: Comment on above: Expected: 04/29/2024 (Approximate), Expi res: 04/29/2025 Start: 04-29-2024 End: 04-29-2025 Thyrotropin [Units/volume] in Serum or Plasma Thyroid Stimulating Hormone Lab Routine Persistent atrial fibrillation (Multi) High risk medication use Expected: 04/29/2024 (Approximate), Expires: 04/29/2025 [facility] Work Phone: Comment on above: Expected: 04/29/2024 (Approximate), Expi res: 04/29/2025 Start: 04-29-2024 End: 04-29-2025 XR Chest 2 Views XR chest 2 views Imaging Routine Persistent atrial fibrillation (Multi) High risk medication use Expected: 04/29/2024 (Approximate), Expires: 04/29/2025 [facility] Work Phone: Comment on above: Expected: 04/29/2024 (Approximate), Expi res: 04/29/2025 Start: 04-18-2024 [facility] Start: 04-16-2024 Referral to rehabilitation physician [facility] Start: 04-12-2024 Referral to sales ledger administrator [facility] Start: 04-10-2024 Hospital admission [facility] Start: 04-10-2024 Referral to cloth tester quality [facility] Start: 10-22-2023 COVID-19 Vaccine ( season) COVID-19 Vaccine ( season) [facility] Start: 10-22-2023 Influenza vaccination Influenza Vaccine (#1) [facility] Start: 01-10-2019 RSV High Risk: (Elderly (60+) or Population) (1 - 1-dose 75+ series) RSV High Risk: (Elderly (60+) or Population) (1 - 1-dose 75+ series) [facility] Start: 01-10-1994 Zoster Vaccines (1 of 2) Zoster Vaccines (1 of 2) [facility] Start: 01-10-1966 DTaP/Tdap/Td Vaccines (1 - Tdap) DTaP/Tdap/Td Vaccines (1 - Tdap) [facility] Start: 01-10-1963 Pneumococcal vaccination Pneumococcal Vaccine (1 of 2 - PCV) [facility] Start: 01-10-1962 Diabetes mellitus screening Diabetes Screening [facility] Start: 1945 Creatinine measurement Creatinine Level [facility] Start: 1944 Lipid panel Lipid Panel [facility] Start: 1945 Medicare Annual Wellness Visit Medicare Annual Wellness Visit (AWV) [facility] Start: 1945 Potassium measurement Potassium Level [facility] Start: 1945 Thyroid stimulating hormone measurement TSH Level [facility] Patient Education Know your Meds [facility] Work Phone: Patient referral [facility] Work Phone: Renal function 1999 panel - Serum or Plasma [facility] Renal function 1999 panel - Serum or Plasma [facility] Renal function 2000 panel - Serum or Plasma [facility] Renal function 1999 panel - Serum or Plasma [facility] Immunizations Immunization Date Immunization Notes Care Provider Jonny jenkins 04-29-2020 COVID-19 Vaccine Isai ssen - Documentation Purposes Only Ranjan Andersen Other [facility] 11-10-2016 diphtheria, tetanus toxoids and acellular pertussis vaccine, unspecified formulation Ranjan Andersen Other [facility] Payers Date Payer Category Payer Private Health Insurance [id number] 2024 Self-pay 2008 Medicare MEDICARE RAILROA D [id number] 1959 Medicare [id number] 1945 Unknown [id number] Medicare Medicare Outpatient [id number] Unknown Lucy BC/ [id number] Unknown [id number] Unknown [id number] Unknown [id number] Social History Date Type Detail Facility Start: 04-29-2024 End: 10-30-2024 [facility] Start: 02-09-2023 End: 09-23-2024 Tobacco smoking status NHIS Never smoked tobacco (finding) [facility] Start: 1945 Sex Assigned At Male F [facility] Start: 04-09-2024 End: 07-01-2024 Sex Male (finding) [facility] Start: 04-15-2024 End: 04-17-2024 SDOH Follow up SDOH Follow up [facility] Work Phone: Start: 04-29-2024 Tobacco use and exposure Smokeless tobacco non-user [facility] Work Phone: Start: 04-29-2024 End: 10-30-2024 Alcoholic beverage intake Ex-drinker (finding) [facility] Work Phone: Start: 04-29-2024 End: 10-30-2024 History of Social function [facility] Work Phone: Start: 04-29-2024 Alcohol Comment maybe once monthly [facility] Work Phone: Start: 1945 Sex assigned at Not on file [facility] Work Phone: Start: 04-19-2024 End: 04-29-2024 Exposure to SARS-CoV-2 (event) Not sure [facility] Start: 04-10-2024 Sex Male [facility] Goals Date Patient Goal Desired Activity /State Functional Status Date Assessment Result Facility 04-18-2024 Functional status Patient at Baseline [facility] Work Phone: Mental Status Date Assessment Result Facility 04-18-2024 Cognitive function Cognitive Sta tus Patient at Baseline [facility] Work Phone: Clinical Notes 07-19-2022 to 10-30-2024 Mely Ken MD - 10/30/2024 2:00 PM EDTPatient InstructionsAttachments Note Date & Type Note Facility 10-30-2024 History of Present illness Narrative Chief Complaint Patient presents with Follow-up 6 months Cardiomyopathy, ischemic Subjective Corwin Muller is a 79 y.o. male HPI Patient here for follow-up and to management first of coronary artery disease, ischemic cardiomyopathy, atrial fibrillation hydrous medication. Unfortunately he had advanced chronic kidney disease. We discussed invasive evaluation and patient declined because of concern of contrast-induced nephropathy. Since last time I saw him he has done well. He denies complaint of chest pain, palpitation, lightheadedness, dizziness or syncope. He remains reasonably active. His complained about gradual decline of his memory. His recent laboratory data noted and reviewed with him. Assessment 1. Recent presentation with acute coronary syndrome with a stress test suggestive of multivessel coronary artery disease. Patient declined cardiac cath because concerned about contrast-induced nephropathy. Patient stable. Currently functional class II. He continues to be in cardiac rehab 2. Ischemic cardiomyopathy appears to be compensated. LVEF around 35-40% by echocardiogram 3. Persistent atrial fibrillation maintaining sinus rhythm with amiodarone 4. Long-term anticoagulation due to atrial fibrillation his dose is appropriate based on age and renal dysfunction 5. 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 BMI 26 8. Previous observation of bradycardia improved after we reduce amiodarone 9. High risk medication in form of amiodarone 10. Patient concerned about his memory decline Plan 1. I recommended to continue cardiac rehab 2. I suggested aggressive approach [...] to continue with conservative management only 5. I advised him to do his amiodarone surveillance testing. Apparently he could not do his pulmonary function test at [facility] I advised him to try to do it at [facility] 6. Next time we will see him will arrange for amiodarone surveillance testing 7. Advised the patient if dialysis initiated we will proceed with heart cath immediately Review of Systems All other systems reviewed and are negative. Vitals: 10/30/24 1403 BP: 114/72 BP Location: Left arm Patient Position: Sitting Pulse: 58 Weight: 98.2 kg (216 lb 9.6 oz) Height: 1.93 m (6' 4 ) Objective Physical Exam Constitutional: Appearance: Normal appearance. HENT: Nose: Nose normal. Neck: Vascular: No carotid bruit. Cardiovascular: Rate and Rhythm: Normal rate. Pulses: Normal pulses. Heart sounds: Normal heart [...] no known allergies. Current Medications Current Outpatient Medications Medication Instructions amiodarone (PACERONE) 100 mg, Daily apixaban (ELIQUIS) 2.5 mg, oral, 2 times daily aspirin 81 mg, oral, Daily atorvastatin (LIPITOR) 10 mg, Daily furosemide (Lasix) 40 mg tablet 2 times daily (morning and late afternoon) hydrALAZINE (APRESOLINE) 25 mg, 2 times daily isosorbide mononitrate ER (IMDUR) 30 mg, oral, Daily melatonin 5 mg, Nightly PRN metoprolol succinate XL (TOPROL-XL) 50 mg, oral, 2 times daily multivitamin tablet 1 tablet, Daily potassium chloride CR 20 mEq ER tablet 20 mEq, Daily spironolactone (ALDACTONE) 12.5 mg, oral, Daily Assessment/Plan 1. Cardiomyopathy, ischemic Follow Up In Cardiology Follow Up In Cardiology 2. High risk medication use Alanine Aminotransferase Basic Metabolic Panel Thyroid Stimulating Hormone Complete Pulmonary Function Test (Spirometry/DLCO/Lung Volumes) XR chest 2 views Alanine Aminotransferase Basic Metabolic Panel Thyroid Stimulating Hormone 3. Persistent atrial fibrillation (Multi) ECG 12 Lead Alanine Aminotransferase Basic Metabolic Panel Thyroid Stimulating Hormone Complete Pulmonary Function Test (Spirometry/DLCO/Lung Volumes) XR chest 2 views Alanine Aminotransferase Basic Metabolic Panel Thyroid Stimulating Hormone 4. Mixed hyperlipidemia 5. Essential hypertension 6. 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 IV, 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) 7. Abnormal stress test 8. Anticoagulation monitoring, special range 9. BMI 26.0-26.9,adult 10. Never smoked tobacco Scribe Attestation By signing my name below, Porsha Gamble LPN, Scribe attest that this documentation has been [...] discussion and plan. documented in this encounter [facility] Work Phone: 10-30-2024 Instructions Porsha Wong LPN - 10/30/2024 2:00 PM EDT Please bring all medicines, vitamins, and herbal supplements with you when you come to the office. Prescriptions will not be filled unless you are compliant with your follow up appointments or have a follow up appointment scheduled as per instruction of your physician. Refills should be requested at the time of your visit. BMI was above normal measurement. Current weight: 98.2 kg (216 lb 9.6 oz) Weight change since last visit (-) denotes wt loss -7.2 lbs Weight loss needed to achieve BMI 25: 11.6 Lbs Weight loss needed to achieve BMI 30: -29.3 Lbs Provided instructions on dietary changes. Amiodarone follow up per routine 6 months The following attachments cannot be sent through Care Everywhere.Body Mass Index, Adult (Italian)documented in this encounter [facility] Work Phone: 09-18-2024 Evaluation note Diagnosis Onset Date Resolution Cerumen impaction acute September 182024 2:35pm HFrEF (heart failure with reduced ejection fraction) acute September 18, 2024 2:35pm Decreased hearing of both ears noneactive September 18, 2024 2:35pm Anemia acute September 23 1:59pm Atrial fibrillation acute Augus t 2024 1:59pm CKD (chronic kidney disease) stage 4, GFR 15-29 ml/min acute September 23, 2024 1:59pm HFrEF (heart failure with reduced ejection fraction) acute Aug2024 1:59pm Hypertensive chronic kidney disease with stage 1 through stage 4 chronic ki acute Augus 2024 1:59pm Hyperuricemia acute September 23, 2024 1:59pm Ischemic cardiomyopathy acute A ugust 2024 1:59pm Pyuria acute September 23 1:59pm Secondary hyperparathyroidism acute September 23, 2024 1:59pm Elevated cholesterol resolved 2024 1:59pm Cerumen impaction acute September 24, 2024 11:44am HFrEF (heart failure with reduced ejection fraction) acute 2024 11:44am Decreased hearing of both ears noneactive September 24, 2024 11:44am Chronic kidney disease acute Se ptember 2024 3:05pm Degenerative arthritis of left foot acute October 23, 2024 3:05pm Degenerative arthritis of right foot acute October 23, 2024 3:05pm Foot pain, bilateral acute Sept emb2024 3:05pm Ischemic cardiomyopathy acute S eptemb2024 3:05pm [facility] Work Phone: 1(237) 433-163106-17-2025 Evaluation note* Diagnosis Onset Date Resolution Status Admit Date Atrial fibrillation acute August 06, 2024 10:33am Cerumen impaction acute August 062024 10:33am Chronic kidney disease acute Ju ne 2024 10:33am HFrEF (heart failure with re duced ejection fraction) acute August 06 10:33am Hypertension acute August 06 10:33am Ischemic cardiomyopathy acute J une 2024 10:33am Primary osteoarthritis of kelly th knees acute August 06, 2024 10:33am Elevated cholesterol resolved August 06, 2024 10:33am Cerumen impaction acute September 182024 2:35pm HFrEF (heart failure with re duced ejection fraction) acute September 18 2:35pm Decreased hearing of both ears nonea ctive September 18, 2024 2:35pm Anemia acute September 23 1:59pm Atrial fibrillation acute 2024 1:59pm CKD (chronic kidney disease) stage 4, GFR 15-29 ml/min acute September 23, 2024 1:59pm HFrEF (heart failure with re duced ejection fraction) acute September 23 025 1:59pm Hypertensive chronic kidney disease with stage 1 through stage 4 chronic ki acute September 23 2 025 1:59pm Hyperuricemia acute September 23, 2024 1:59pm Ischemic cardiomyopathy acute A ugust 2024 1:59pm Pyuria acute September 23 1:59pm Secondary hyperparathyroidism acute September 23, 2024 1:59pm Elevated cholesterol resolved Augu st 2024 1:59pm Cerumen impaction acute September 24, 2024 11:44am HFrEF (heart failure with re duced ejection fraction) acute September 24, 2 025 11:44am Decreased hearing of both ears nonea ctive September 24, 2024 11:44am [facility] Work Phone: 1(120) 521-433405-12-2025 Evaluation note* Diagnosis Onset Date Resolution Status Admit Date Asymptomatic bacteriuria acute July 01, 2024 2:30pm Atrial fibrillation acute June 202024 2:30pm CKD (chronic kidney disease) stage 4, GFR 15-29 ml/min acute July 012024 2:30pm HFrEF (heart failure with re duced ejection fraction) acute July 01 2:30pm Hypertensive chronic kidney disease with stage 1 through stage 4 chronic ki acute July 01 2:30pm Hyperuricemia acute July 01, 2 025 2:30pm Ischemic cardiomyopathy acute M ay 2024 2:30pm Secondary hyperparathyroidism acute July 01, 2024 2:30pm Elevated cholesterol resolved July 01, 2024 2:30pm Atrial fibrillation acute August 06, 2024 10:33am Cerumen impaction acute August 062024 10:33am Chronic kidney disease acute Ju ne 2024 10:33am HFrEF (heart failure with re duced ejection fraction) acute August 06 10:33am Hypertension acute August 06, 025 10:33am Ischemic cardiomyopathy acute J une 2024 10:33am Primary osteoarthritis of kelly th knees acute August 06, 2024 10:33am Elevated cholesterol resolved August 06, 2024 10:33am Cerumen impaction acute September 182024 2:35pm HFrEF (heart failure with re duced ejection fraction) acute September 18 2:35pm Decreased hearing of both ears nonea ctive September 18, 2024 2:35pm Asymptomatic bacteriuria acute September 23, 2024 1:59pm Atrial fibrillation acute Augus t 2024 1:59pm CKD (chronic kidney disease) stage 4, GFR 15-29 ml/min acute September 23, 2024 1:59pm HFrEF (heart failure with re duced ejection fraction) acute September 23, 2 025 1:59pm Hypertensive chronic kidney disease with stage 1 through stage 4 chronic ki acute September 23, 2 025 1:59pm Hyperuricemia acute September 23, 2024 1:59pm Ischemic cardiomyopathy acute A ugust 2024 1:59pm Secondary hyperparathyroidism acute September 23, 2024 1:59pm Elevated cholesterol resolved Augu st 2024 1:59pm [facility] Work Phone: 1(761) 977-958505-12-2025 Evaluation note* Diagnosis Onset Date Resolution Status Admit Date Asymptomatic bacteriuria acute July 01, 2024 2:30pm Atrial fibrillation acute June 202024 2:30pm CKD (chronic kidney disease) stage 4, GFR 15-29 ml/min acute July 012024 2:30pm HFrEF (heart failure with re duced ejection fraction) acute July 01 2:30pm Hypertensive chronic kidney disease with stage 1 through stage 4 chronic ki acute July 01 2:30pm Hyperuricemia acute July 01, 025 2:30pm Ischemic cardiomyopathy acute M ay 2024 2:30pm Secondary hyperparathyroidism acute July 01, 2024 2:30pm Elevated cholesterol resolved July 01, 2024 2:30pm Atrial fibrillation acute August 06, 2024 10:33am Cerumen impaction acute August 062024 10:33am Chronic kidney disease acute Ju ne 2024 10:33am HFrEF (heart failure with re duced ejection fraction) acute August 06 10:33am Hypertension acute August 06, 10:33am Ischemic cardiomyopathy acute J une 2024 10:33am Primary osteoarthritis of kelly th knees acute August 06, 2024 10:33am Elevated cholesterol resolved August 06, 2024 10:33am Cerumen impaction acute September 182024 2:35pm HFrEF (heart failure with re duced ejection fraction) acute September 18 2:35pm Decreased hearing of both ears nonea ctive September 18, 2024 2:35pm Anemia acute September 23 1:59pm Atrial fibrillation acute Augus t 2024 1:59pm CKD (chronic kidney disease) stage 4, GFR 15-29 ml/min acute September 23, 2024 1:59pm HFrEF (heart failure with re duced ejection fraction) acute September 23, 2 025 1:59pm Hypertensive chronic kidney disease with stage 1 through stage 4 chronic ki acute September 23, 2 025 1:59pm Hyperuricemia acute September 23, 2024 1:59pm Ischemic cardiomyopathy acute A ugust 2024 1:59pm Pyuria acute September 23 1:59pm Secondary hyperparathyroidism acute September 23, 2024 1:59pm Elevated cholesterol resolved Augu st 2024 1:59pm [facility] Work Phone: 1(780) 409-860305-12-2025 Evaluation note* Diagnosis Onset Date Resolution Status Admit Date Asymptomatic bacteriuria acute July 01, 2024 2:30pm Atrial fibrillation acute June 202024 2:30pm CKD (chronic kidney disease) stage 4, GFR 15-29 ml/min acute July 012024 2:30pm HFrEF (heart failure with re duced ejection fraction) acute July 01 2:30pm Hypertensive chronic kidney disease with stage 1 through stage 4 chronic ki acute July 01 2:30pm Hyperuricemia acute July 01, 025 2:30pm Ischemic cardiomyopathy acute M ay 2024 2:30pm Secondary hyperparathyroidism acute July 01, 2024 2:30pm Elevated cholesterol resolved July 01, 2024 2:30pm Atrial fibrillation acute August 06, 2024 10:33am Cerumen impaction acute August 062024 10:33am Chronic kidney disease acute Ju ne 2024 10:33am HFrEF (heart failure with re duced ejection fraction) acute August 06 10:33am Hypertension acute August 06, 025 10:33am Ischemic cardiomyopathy acute J une 2024 10:33am Primary osteoarthritis of kelly th knees acute August 06, 2024 10:33am Elevated cholesterol resolved August 06, 2024 10:33am Cerumen impaction acute September 182024 2:35pm HFrEF (heart failure with re duced ejection fraction) acute September 18 2:35pm Decreased hearing of both ears nonea ctive September 18, 2024 2:35pm Anemia acute September 23 1:59pm Atrial fibrillation acute Augus t 2024 1:59pm CKD (chronic kidney disease) stage 4, GFR 15-29 ml/min acute September 23, 2024 1:59pm HFrEF (heart failure with re duced ejection fraction) acute September 23, 2 025 1:59pm Hypertensive chronic kidney disease with stage 1 through stage 4 chronic ki acute September 23, 2 025 1:59pm Hyperuricemia acute September 23, 2024 1:59pm Ischemic cardiomyopathy acute A ugust 2024 1:59pm Pyuria acute September 23 1:59pm Secondary hyperparathyroidism acute September 23, 2024 1:59pm Elevated cholesterol resolved Augu st 2024 1:59pm Cerumen impaction acute September 24, 2024 11:44am HFrEF (heart failure with re duced ejection fraction) acute September 24, 025 11:44am Decreased hearing of both ears nonea ctive September 24, 2024 11:44am [facility] Work Phone: 1(252) 311-551605-05-2025 Evaluation note* Diagnosis Onset Date Resolution Status Admit Date Chronic kidney disease acute Ma y 2024 2:38pm Shoulder pain, left acute June 242024 2:38pm Strain of left deltoid muscle acute June 24, 2024 2:38pm Asymptomatic bacteriuria acute July 01, 2024 2:30pm Atrial fibrillation acute June 202024 2:30pm CKD (chronic kidney disease) stage 4, GFR 15-29 ml/min acute July 01 2:30pm HFrEF (heart failure with re duced ejection fraction) acute July 01 2:30pm Hypertensive chronic kidney disease with stage 1 through stage 4 chronic ki acute July 01, 2024 2:30pm Hyperuricemia acute July 01, 2 025 2:30pm Ischemic cardiomyopathy acute M ay 2024 2:30pm Secondary hyperparathyroidism acute July 01, 2024 2:30pm Elevated cholesterol resolved July 01, 2024 2:30pm Atrial fibrillation acute August 06, 2024 10:33am Cerumen impaction acute August 062024 10:33am Chronic kidney disease acute Ju ne 2024 10:33am HFrEF (heart failure with re duced ejection fraction) acute August 06 10:33am Hypertension acute August 06, 2 025 10:33am Ischemic cardiomyopathy acute J une 2024 10:33am Primary osteoarthritis of kelly th knees acute August 06, 2024 10:33am Elevated cholesterol resolved August 06, 2024 10:33am [facility] Work Phone: 1([phone]) 359-312903-10-2025 History of Present illness Narrative* Mely Ken MD - 04/29/2024 10:00 AM EDT Dolly Muller is a 79 y.o. male [...] ultimately was controlled with amiodarone. His stress testwas grossly abnormal and positive however the patient [...] understood and agreed to continue with conservative managementonly 5. We will reduce his amiodarone to [...] mouth once daily. 200mg 3x a day for1 week then 200mg daily, Disp: , Rfl: [...] times daily (morning and late afternoon)., Disp: ,Rfl: hydrALAZINE (Apresoline) 25 mg tablet, Take 1 tablet (25 mg) by mouth 2 times a day., Disp: , Rfl: isosorbide mononitrate ER (Imdur) 30 mg 24 hr tablet, Take 1 tablet (30 mg) by mouth once daily. Donot crush or chew., Disp: , Rfl: melatonin [...] by mouth once daily. Do not crush orchew., Disp: , Rfl: spironolactone (Aldactone) 25 mg [...] Scribe Attestation By signing my name below, I, Brenda Jackson LPN attest that this documentation has been prepared under the direction and in the presence of MD Gabriella. Provider Attestation - Scribe documentation All medical record entries made by the Scribe were at my direction and personally dictated by me. Ihave reviewed the chart and agree that the record accurately reflects my personal performance of the history, physical exam, discussion and plan. documented in this [facility] Work Phone: 1(600) 740-725003-10-2025 Instructions* Patient Instructions* Lashay Andersen LPN - 04/29/2024 10:00 AM [...] -22.1 Lbs Provided instructions on dietary changes. * Attachments The following attachments cannot be sent through Care Everywhere. * Heart Healthy Diet (Italian) documented in this [facility] Work Phone: 1(500) 475-623902-27-2025 Progress note Author Felicia Aguilar [facility] Note Date/Time April 18, 2024 12:05pm [facility] [address] [place] [address] Nephrology Progress Note Signed Patient: Corwin Muller MR#: [id number] : 1945 Acct:[id number] Age/Sex: 79 / M Adm Date: 5 Loc: Room: [address] [place] [address] Type: ADM IN Attending Dr: Jn Yanes [...] that time. He was evaluated in the [facility] with EKG showing SVT and inverted [...] has no edema. Patient was seen by cloth tester quality and diltiazem was completely stopped that hopefully [...] TID BLESSING Stop: 04/16/25 21:59 Last Admin: 04/18/24 08:53 [...] 40 Mg Tablet) 40 mg PO BID@0800,1600 [facility] Stop: 04/12/25 15:59 Last Admin: 04/17/24 09:34 Dose: 40 mg Hydralazine HCl (Hydralazine 25 Mg Tablet) [address] [facility] Stop: 04/12/25 20:59 Last Admin: 04/18/24 [...] 50 Mg Tab.Er.24h) [address] [facility] Stop: 04/13/25 20:59 Last Admin: 04/18/24 [...] infarction): Assessment/Problem Details: Patient was admitted for MO and his echocardiogram showed EF 35 to [...] CKD and required dialysis soon. He will follow- up with Dr. Monroy as outpatient. 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 Patient stable from renal point to be discharged home today off Diltiazem. Furosemide 40 mg p.o. twice a day will be started tomorrow. Patient need follow-up renal panel and CBC in 7 to 10 days and follow-up with Dr. Balbuena . Documented By: Felicia Aguilar MD 04/18/24 1158 Signed By: <Electronically signed by MD Felicia Aguilar> 04/18/24 1207 [facility] Work Phone: 1(548) 216-449702-27-2025 Progress note Author Jn Yanes [facility] Note Date/Time April 18, 2024 11:56am [facility] [address] [place] [address] Hospitalist Progress Note Signed with Charlene Patient: Corwin Muller MR#: [id number] : 1945 Acct:[id number] Age/Sex: 79 / M Adm Date: 5 Loc: Room: [address] [place] [address] Type: ADM IN Attending Dr: Jn Yanes [...] Physician Documented By: Jn Yanes MD 04/17/24 3820 Signed By: <Electronically signed by Jn Yanes MD> 04/17/24 5482 [facility] Work Phone: 1(567) 808-228602-27-2025 Progress note Author Mely Ken [facility] Note Date/Time April 18, 2024 10:26am [facility] [address] [place] [address] Cardiology Progress Note Signed Patient: Corwin Muller MR#: [id number] : 1945 Acct:[id number] Age/Sex: 79 / M Adm Date: 5 Loc: Room: [address] [place] [address] Type: ADM IN Attending Dr: Jn Yanes [...] signed by MD Mely Ken> 04/18/24 1026 [facility] Work Phone: 1([phone] 441-618902-27-2025 [place] [address] Nephrology Progress Note Signed Patient: Corwin Muller MR#: [id number] : 1945 Acct:[id number] Age/Sex: 79 / M Adm Date: 5 Loc: Room: [address] [place] [address] Type: ADM IN Attending Dr: Jn Yanes [...] that time. He was evaluated in the [facility] with EKG showingSVT and inverted T [...] has no edema. Patient was seen by cloth tester quality and diltiazem was completely stopped that hopefully [...] 200 Mg Tablet) [address] [facility] Stop: 04/16/25 21:59 Last Admin: 04/18/24 08:53 Dose: 200 mg Apixaban (Apixaban 2.5 Mg Tablet) 2.[address] [facility] Stop: 04/12/25 20:59 Last Admin: 04/18/24 08:53 Dose: 2.5 mg Aspirin (Aspirin 81 Mg Tablet.Dr) 81 mg PO DAILY [facility] Stop: 04/11/25 08:59 Last Admin: 04/18/24 08:53 Dose: 81 mg Docusate Sodium (Docusate 100 Mg Capsule) 200 mg PO BID PRN PRN Reason: Constipation Stop: 04/15/25 11:55 Furosemide (Furosemide 40 Mg Tablet) 40 mg PO BID@0800,1600 [facility] Stop: 04/12/25 15:59 Last Admin: 04/17/24 09:34 Dose: 40 mg Hydralazine HCl (Hydralazine 25 Mg Tablet) 25 mg PO BID [facility] Stop: 04/12/25 20:59 Last Admin: 04/18/24 08:53 Dose: 25 mg Isosorbide Mononitrate (Isosorbide Mononitrate 24hr Er 30 Mg Tab.Er.24h) [address] [facility] Stop: 04/13/25 05:59 Last Admin: 04/18/24 [...] infarction): Assessment/Problem Details: Patient was admitted for MO and his echocardiogram showed EF 35 to [...] MD 04/18/24 1158 Signed By: 04/18/24 1205 [facility]02-27-2025 [place] [address] Hospitalist Progress Note Signed with Addenda Patient: Corwin Muller MR#: [id number] : 1945 Acct:[id number] Age/Sex: 79 / M Adm Date: 5 Loc: Room: [address] [place] [address] Type: ADM IN Attending Dr: Jn Yanes [...] 04/11/24 09:00 04/17/24 09:34 Aspirin 81 Mg Tablet. PO 04/11/25 08:59 [...] MD 04/17/24 1402 Signed By: 04/17/24 2105 [facility]02-27-2025 [place] [address] Cardiology Progress Note Signed Patient: Corwin Muller MR#: [id number] : 1945 Acct:[id number] Age/Sex: 79 / M Adm Date: 5 Loc: Room: [address] [place] [address] Type: ADM IN Attending Dr: Jn Yanes [...] MD 04/18/24 1024 Signed By: 04/18/24 1026 [facility]02-26-2025 Progress note Author Felicia Aguilar [facility] Note Date/Time April 17, 2024 2:35pm [facility] [address] [place] [address] Nephrology Progress Note Signed Patient: Corwin Mulelr MR#: [id number] : 1945 Acct:[id number] Age/Sex: 79 / M Adm Date: 5 Loc: Room: [address] [place] [address] Type: ADM IN Attending Dr: Jn Yanes [...] that time. He was evaluated in the [facility] with EKG showing SVT and inverted [...] was decreased to 240 mg by his cloth tester quality with the plan. Patient is lying if [...] 200 Mg Tablet) [address] [facility] Stop: 04/16/25 21:59 Last Admin: 04/17/24 09:34 Dose: 200 mg Apixaban (Apixaban 2.5 Mg Tablet) 2.[address] [facility] Stop: 04/12/25 20:59 Last Admin: 04/17/24 09:34 Dose: 2.5 mg Aspirin (Aspirin 81 Mg Tablet.Dr) [address] [facility] Stop: 04/11/25 08:59 Last Admin: 04/17/24 09:34 Dose: 81 mg Diltiazem HCl (Diltiazem Cd.24hr 240 Mg Cap.Er.24h) [address] [facility] Stop: 04/17/25 08:59 Last Admin: 04/17/24 09:34 Dose: 240 mg Docusate Sodium (Docusate 100 Mg Capsule) 200 mg PO BID PRN PRN Reason: Constipation Stop: 04/15/25 11:55 Furosemide (Furosemide 40 Mg Tablet) 40 mg PO BID@0800,1600 [facility] Stop: 04/12/25 15:59 Last Admin: 04/17/24 09:34 Dose: 40 mg Hydralazine HCl (Hydralazine 25 Mg Tablet) [address] [facility] Stop: 04/12/25 20:59 Last Admin: 04/17/24 09:34 Dose: 25 mg Isosorbide Mononitrate (Isosorbide Mononitrate 24hr Er 30 Mg Tab.Er.24h) [address] [facility] Stop: 04/13/25 05:59 Last Admin: 04/17/24 05:10 Dose: 30 mg Metoprolol Succinate (Metoprolol Succinate 50 Mg Tab.Er.24h) [address] [facility] Stop: 04/13/25 20:59 Last Admin: 04/17/24 [...] infarction): Assessment/Problem Details: Patient was admitted for MO and his echocardiogram showed EF 35 to [...] <Electronically signed by MD Felicia Aguilar> 04/17/24 1436 [facility] Work Phone: 1(135) [phone] [place] [address] Nephrology Progress Note Signed Patient: Corwin Muller MR#: [id number] : 1945 Acct:[id number] Age/Sex: 79 / M Adm Date: 5 Loc: Room: [address] [place] [address] Type: ADM IN Attending Dr: Jn Yanes [...] that time. He was evaluated in the [facility] with EKG showingSVT and inverted T [...] 200 Mg Tablet) [address] [facility] Stop: 04/16/25 21:59 Last Admin: 04/17/24 09:34 Dose: 200 mg Apixaban (Apixaban 2.5 Mg Tablet) 2.[address] [facility] Stop: 04/12/25 20:59 Last Admin: 04/17/24 [...] 40 Mg Tablet) 40 mg PO BID@0800,1600 [facility] Stop: 04/12/25 15:59 Last Admin: 04/17/24 09:34 Dose: 40 mg Hydralazine HCl (Hydralazine 25 Mg Tablet) [address] [facility] Stop: 04/12/25 20:59 Last Admin: 04/17/24 09:34 Dose: 25 mg Isosorbide Mononitrate (Isosorbide Mononitrate 24hr Er 30 Mg Tab.Er.24h) [address] [facility] Stop: 04/13/25 05:59 Last Admin: 04/17/24 05:10 Dose: 30 mg Metoprolol Succinate (Metoprolol Succinate 50 Mg Tab.Er.24h) [address] [facility] Stop: 04/13/25 20:59 Last Admin: 04/17/24 09:34 Dose: 50 mg Morphine Sulfate (Morphine Sulfate 2 Mg/Ml Vial) 2 mg IV-PUSH Q4H PRN PRN Reason: Pain Scale 8 - 10 Ondansetron HCl (Ondansetron 4 Mg/2 Ml Vial) 4 mg IV-PUSH Q6H PRN PRN Reason: Nausea And Vomiting Stop: 04/10/25 04:04 Potassium Chloride (Potassium Chloride Er 20 Meq Tab.Er.Prt) [address] [facility] Stop: 04/13/25 08:59 Last Admin: 04/17/24 [...] infarction): Assessment/Problem Details: Patient was admitted for MO and his echocardiogram showed EF 35 to [...] be needed later on. Documented By: Felicia Aguilra MD 04/17/24 1426 Signed By: 04/17/24 1435 [facility]02-26-2025 Progress note Author Mely Ken [facility] Note Date/Time April 17, 2024 12:13pm [facility] [address] [place] [address] Cardiology Progress Note Signed Patient: Corwin Muller MR#: [id number] : 1945 Acct:[id number] Age/Sex: 79 / M Adm Date: 5 Loc: Room: [address] [place] [address] Type: ADM IN Attending Dr: Jn Yanes [...] signed by MD Mely Ken> 04/17/24 1213 [facility] Work Phone: 1(335) [phone] [address] Cardiology Progress Note Signed Patient: Corwin Muller MR#: [id number] : 1945 Acct:[id number] Age/Sex: 79 / M Adm Date: 5 Loc: 4 Room: [address] [place] [address] Type: ADM IN Attending Dr: Jn Yanes [...] Ken MD 04/17/241209 Signed By: 04/17/24 1213 [facility]02-25-2025 Progress note Author Felicia Aguilar [facility] Note Date/Time April 16, 2024 4:47pm [facility] [address] [place] [address] Nephrology Progress Note Signed Patient: Corwin Muller MR#: [id number] : 1945 Acct:[id number] Age/Sex: 79 / M Adm Date: 5 Loc: 4 Room: [address] [place] [address] Type: ADM IN Attending Dr: Jersey Bess [...] that time. He was evaluated in the [facility] with EKG showing SVT and inverted [...] 200 Mg Tablet) [address] [facility] Stop: 04/16/25 21:59 Apixaban (Apixaban 2.5 Mg Tablet) 2.[address] [facility] Stop: 04/12/25 20:59 Last Admin: 04/16/24 08:56 Dose: 2.5 mg Aspirin (Aspirin 81 Mg Tablet.) [address] [facility] Stop: 04/11/25 08:59 Last Admin: 04/16/24 08:56 Dose: 81 mg Diltiazem HCl (Diltiazem Cd.24hr 240 Mg Cap.Er.24h) [address] [facility] Stop: 04/17/25 08:59 Docusate Sodium (Docusate 100 Mg Capsule) 200 mg PO BID PRN PRN Reason: Constipation Stop: 04/15/25 11:55 Furosemide (Furosemide 40 Mg Tablet) 40 mg PO BID@0800,1600 [facility] Stop: 04/12/25 15:59 Last Admin: 04/16/24 [...] Mg/5 Ml Udc) 17.[address] [facility] Stop: 04/15/25 21:59 Last Admin: 04/15/24 22:35 Dose: Not Given Sodium Chloride (Sodium Chloride 0.9 % 10 Ml Syringe) 0 ml IV-PUSH QSHIFT [facility] Stop: 04/10/25 05:59 Last Admin: 04/16/24 14:14 Dose: Not Given Sodium Chloride (Sodium Chloride 0.9 % 10 Ml Syringe) 0 ml IV-PUSH PRN PRN PRN Reason: Flush Stop: 04/15/25 13:36 Last Admin: 04/15/24 14:00 Dose: 30 ml Spironolactone (Spironolactone 12.5 Mg Tablet) 12.[address] [facility] Stop: 04/12/25 19:59 Last Admin: 04/16/24 08:56 [...] infarction): Assessment/Problem Details: Patient was admitted for MO and his echocardiogram showed EF 35 to [...] was discussed with the patient by his cloth tester quality. Ideally he should have invasive evaluation however [...] <Electronically signed by MD Felicia Aguilar> 04/16/24 9098 [facility] Work Phone: 1(259) 943-338902-25-2025 Consult note Author Luis Patel [facility] Note Date/Time April 16, 2024 2:53pm [facility] [address] [place] [address] Physiatry (Rehab) Consult Note Signed Patient: Corwin Muller MR#: [id number] : 1945 Acct:[id number] Age/Sex: 79 / M Adm Date: 5 Loc: Room: [address] [place] [address] Type: ADM IN Attending Dr: Jersey Bess MD Copies to: DO Luis Johansen MD Obaydah M Daromar, MD~ Etiologic Dx/Impairment Group Narrative Narrative: Cardiac HPI Consult Date: 04/16/24 Requesting Physician: Jersey Bess MD Primary Care Provider: Ranjan Andersen DO Consult Narrative Reason for consult: Postacute [...] negative unless noted below or in [facility]PI [facility] Medical History Atrial tachycardia Lumbar spondylosis [...] chart, including current orders, allied health and senior microsoft consultant notes, labs/imaging and performed whatley elements of exam and I formulated the plan of care and facilitated the medical decision making. I completed a substantive portion of this encounter, the medical decision making portion of this note in its entirety, including Allied health note review, nursing note review, senior microsoft consultant note review, discussion with nursing and case management, and more than 50% of my time was spent on counseling and coordination of care, time spent 35 minutes Documented By: Luis Patel MD 04/16/24 1401 Signed By: <Electronically signed by Luis Patel MD> 04/16/24 1459 [facility] Work Phone: 1(499) [phone] [id number] Nephrology Progress Note Signed Patient: Corwin Muller MR#: [id number] : 1945 Acct:[id number] Age/Sex: 79 / M Adm Date: 5 Loc: Room: [address] [place] [address] Type: ADM IN Attending Dr: Jersey Bess [...] that time. He was evaluated in the [facility] with EKG showingSVT and inverted T [...] 200 Mg Tablet) [address] [facility] Stop: 04/16/25 21:59 Apixaban (Apixaban 2.5 Mg Tablet) 2.5 mg PO BID [facility] Stop: 04/12/25 20:59 Last Admin: 04/16/24 08:56 Dose: 2.5 mg Aspirin (Aspirin 81 Mg Tablet.Dr) [address] [facility] Stop: 04/11/25 08:59 Last Admin: 04/16/24 08:56 Dose: 81 mg Diltiazem HCl (Diltiazem Cd.24hr 240 Mg Cap.Er.24h) [address] [facility] Stop: 04/17/25 08:59 Docusate Sodium (Docusate 100 Mg Capsule) 200 mg PO BID PRN PRN Reason: Constipation Stop: 04/15/25 11:55 Furosemide (Furosemide 40 Mg Tablet) 40 mg PO BID@0800,1600 [facility] Stop: 04/12/25 15:59 Last Admin: 04/16/24 15:48 Dose: 40 mg Hydralazine HCl (Hydralazine 25 Mg Tablet) [address] [facility] Stop: 04/12/25 20:59 Last Admin: 04/16/24 08:56 Dose: 25 mg Isosorbide Mononitrate (Isosorbide Mononitrate 24hr Er 30 Mg Tab.Er.24h) [address] [facility] Stop: 04/13/25 05:59 Last Admin: 04/16/24 06:28 Dose: 30 mg Metoprolol Succinate (Metoprolol Succinate 50 Mg Tab.Er.24h) [address] [facility] Stop: 04/13/25 20:59 Last Admin: 04/16/24 08:56 [...] infarction): Assessment/Problem Details: Patient was admitted for MO and his echocardiogram showed EF 35 to [...] was discussed with the patient by his cloth tester quality. Ideally he should have invasive evaluation however [...] Aguilar MD 04/16/24 1638 Signed By: 04/16/24 2817 [facility]02-25-2025 Progress note Author Jersey Bess [facility] Note Date/Time April 16, 2024 1:58pm [facility] [address] [place] [address] Hospitalist Progress Note Signed Patient: Corwin Muller MR#: [id number] : 1945 Acct:[id number] Age/Sex: 79 / M Adm Date: 5 Loc: Room: [address] [place] [address] Type: ADM IN Attending Dr: Jersey Bess [...] <Electronically signed by Jersey Bess MD> 04/16/[address] [place] [address] Work Phone: 1(963) 976-927502-25-2025 [place] [address] Physiatry (Rehab) Consult Note Signed Patient: Corwin Muller MR#: [id number] : 1945 Acct:[id number] Age/Sex: 79 / M Adm Date: 5 Loc: Room: [address] [place] [address] Type: ADM IN Attending Dr: Jersey Bess MD Copies to: DO Luis Johansen MD Obaydah M Daromar, MD~ Etiologic Dx/Impairment Group Narrative Narrative: Cardiac HPI Consult Date: 04/16/24 Requesting Physician: Jersey Bess MD Primary Care Provider: Ranjan Andersen DO Consult Narrative Reason for consult: Postacute [...] negative unless noted below or in HPI [facility] Medical History Atrial tachycardia Lumbar spondylosis [...] chart, including current orders, allied health and senior microsoft consultant notes, labs/imaging and performed whaltey elements of exam and I formulated the plan of care and facilitated the medical decision making. I completed a substantive portion of this encounter, the medical decision making portion of this note in its entirety, including Allied health note review, nursing note review, senior microsoft consultant note review, discussion with nursing and case management, and more than 50% of my time was spent on counseling and coordination of care, time spent 35 minutes Documented By: Luis Patel MD 04/16/24 1401 Signed By: 04/16/24 1453 [facility]02-25-2025 [place] [address] Hospitalist Progress Note Signed Patient: Corwin Muller MR#: [id number] : 1945 Acct:[id number] Age/Sex: 79 / M Adm Date: 5 Loc: Room: [address] [place] [address] Type: ADM IN Attending Dr: Jersey Bess [...] 04/16/24 13 56 Signed By: 04/16/24 1358 [facility]02-25-2025 Progress note Author Mely Ken [facility] Note Date/Time April 16, 2024 11:27am [facility] [address] [place] [address] Cardiology Progress Note Signed Patient: Corwin Muller MR#: [id number] : 1945 Acct:[id number] Age/Sex: 79 / M Adm Date: 5 Loc: 4P Room: [address] [place] [address] Type: ADM IN Attending Dr: Jersey Bess [...] signed by MD Mely Ken> 04/16/24 1127 [facility] Work Phone: 1([phone] 137-130802-25-2025 Nuclear medicine Diagnostic study note [facility] [place] [address] [place] [address] Nuclear Medicine Report Signed Patient: Corwin Muller MR#: [id number] : 1945 Acct:[id number] Age/Sex: 79 / M ADM Date: 5 Loc: Room: [address] [place] [address] Type: ADM IN Attending Dr: Jersey Bess [...] Jayda Burgess M.D.04/16/2024 12:45 PM Dictation Location: [place] [address] Transcribed By: [facility] 04/16/24 124 Dictated By: Jayda Burgess MD 04/16/24 1237 Signed By: 04/16/24 1245 [facility] Work Phone: [phone]) [phone] [place] [address] Cardiology Progress Note Signed Patient: Corwin Muller MR#: [id number] : 1945 Acct:[id number] Age/Sex: 79 / M Adm Date: 5 Loc: Room: [address] [place] [address] Type: ADM IN Attending Dr: Jersey Bess [...] Ken MD 04/16/241116 Signed By: 04/16/24 1127 [facility]02-25-2025 Progress note Author Felicia Aguilar [facility] Note Date/Time April 15, 2024 10:06pm [facility] [address] [place] [address] Nephrology Progress Note Signed Patient: Corwin Muller MR#: [id number] : 1945 Acct:[id number] Age/Sex: 79 / M Adm Date: 5 Loc: Room: [id number] Type: ADM IN Attending Dr: Jersey Bess [...] that time. He was evaluated in the [facility] with EKG showing SVT and inverted [...] 200 Mg Tablet) [address] [facility] Stop: 04/11/25 13:59 Last Admin: 04/15/24 21:25 Dose: 400 mg Apixaban (Apixaban 2.5 Mg Tablet) 2.[address] [facility] Stop: 04/12/25 20:59 Last Admin: 04/15/24 21:25 Dose: 2.5 mg Aspirin (Aspirin 81 Mg Tablet.Dr) [address] [facility] Stop: 04/11/25 08:59 Last Admin: 04/15/24 10:20 Dose: 81 mg Diltiazem HCl (Diltiazem Cd.24hr 180 Mg Cap.Er.24h) [address] [facility] Stop: 04/15/25 08:59 Last Admin: 04/15/24 16:39 Dose: 360 mg Docusate Sodium (Docusate 100 Mg Capsule) 200 mg PO BID PRN PRN Reason: Constipation Stop: 04/15/25 11:55 Furosemide (Furosemide 40 Mg Tablet) 40 mg PO BID@0800,1600 [facility] Stop: 04/12/25 15:59 Last Admin: 04/15/24 16:42 Dose: 40 mg Hydralazine HCl (Hydralazine 25 Mg Tablet) [address] [facility] Stop: 04/12/25 20:59 Last Admin: 04/15/24 21:24 Dose: 25 mg Ceftriaxone Sodium (Rocephin) 1 gm in 50 mls @ 100 mls/hr IV Q24H [facility] Last Admin: 04/15/24 12:41 Dose: 100 [...] Mg/5 Ml Udc) 17.[address] [facility] Stop: 04/15/25 21:59 Sodium Chloride (Sodium Chloride 0.9 % 10 Ml Syringe) 0 ml IV-PUSH QSHIFT [facility] Stop: 04/10/25 05:59 Last Admin: 04/15/24 16:42 Dose: 10 ml Sodium Chloride (Sodium Chloride 0.9 % 10 Ml Syringe) 0 ml IV-PUSH PRN PRN PRN Reason: Flush Stop: 04/15/25 13:36 Last Admin: 04/15/24 14:00 Dose: 30 ml Spironolactone (Spironolactone 12.5 Mg Tablet) 12.[address] [facility] Stop: 04/12/25 19:59 Last Admin: 04/15/24 [...] infarction): Assessment/Problem Details: Patient was admitted for MO and his echocardiogram showed EF 35 to [...] <Electronically signed by MD Felicia Aguilar> 04/15/242205 [facility] Work Phone: 1(543) 746-383302-24-2025 [place] [id number] Nephrology Progress Note Signed Patient: Corwin Muller MR#: [id number] : 1945 Acct:[id number] Age/Sex: 79 / M Adm Date: 5 Loc: Room: [address] [place] [address] Type: ADM IN Attending Dr: Jersey Bess [...] that time. He was evaluated in the [facility] with EKG showingSVT and inverted T [...] 200 Mg Tablet) 400 mg PO TID [facility] Stop: 04/11/25 13:59 Last Admin: 04/15/24 21:25 Dose: 400 mg Apixaban (Apixaban 2.5 Mg Tablet) 2.5 mg PO BID [facility] Stop: 04/12/25 20:59 Last Admin: 04/15/24 21:25 Dose: 2.5 mg Aspirin (Aspirin 81 Mg Tablet.Dr) [address] [facility] Stop: 04/11/25 08:59 Last Admin: 04/15/24 10:20 Dose: 81 mg Diltiazem HCl (Diltiazem Cd.24hr 180 Mg Cap.Er.24h) [address] [facility] Stop: 04/15/25 08:59 Last Admin: 04/15/24 16:39 Dose: 360 mg Docusate Sodium (Docusate 100 Mg Capsule) 200 mg PO BID PRN PRN Reason: Constipation Stop: 04/15/25 11:55 Furosemide (Furosemide 40 Mg Tablet) 40 mg PO BID@0800,1600 [facility] Stop: 04/12/25 15:59 Last Admin: 04/15/24 16:42 Dose: 40 mg Hydralazine HCl (Hydralazine 25 Mg Tablet) [address] [facility] Stop: 04/12/25 20:59 Last Admin: 04/15/24 21:24 Dose: 25 mg Ceftriaxone Sodium (Rocephin) 1 gm in 50 mls @ 100 mls/hr IV Q24H [facility] Last Admin: 04/15/24 12:41 Dose: 100 mls/hr Isosorbide Mononitrate (Isosorbide Mononitrate 24hr Er 30 Mg Tab.Er.24h) [address] [facility] Stop: 04/13/25 05:59 Last Admin: 04/15/24 05:04 Dose: 30 mg Metoprolol Succinate (Metoprolol Succinate 50 Mg Tab.Er.24h) [address] [facility] Stop: 04/13/25 20:59 Last Admin: 04/15/24 21:24 Dose: 50 mg Morphine Sulfate (Morphine Sulfate 2 Mg/Ml Vial) 2 mg IV-PUSH Q4H PRN PRN Reason: Pain Scale 8 - 10 Ondansetron HCl (Ondansetron 4 Mg/2 Ml Vial) 4 mg IV-PUSH Q6H PRN PRN Reason: Nausea And Vomiting Stop: 04/10/25 04:04 Potassium Chloride (Potassium Chloride Er 20 Meq Tab.Er.Prt) [address] [facility] Stop: 04/13/25 08:59 Last Admin: 04/15/24 [...] infarction): Assessment/Problem Details: Patient was admitted for MO and his echocardiogram showed EF 35 to [...] Felicia Aguilar MD 04/15/242200 Signed By: 04/15/242205 [facility]02-24-2025 Progress note Author Mely Ken [facility] Note Date/Time April 15, 2024 12:47pm [facility] [address] [place] [address] Cardiology Progress Note Signed Patient: Corwin Muller MR#: [id number] : 1945 Acct:[id number] Age/Sex: 79 / M Adm Date: 5 Loc: Room: [address] [place] [address] Type: ADM IN Attending Dr: Jersey Bess [...] modification Documented By: Mely Ken MD 04/15/24 124 Signed By: <Electronically signed by MD Mely Ken> 04/15/24 1247 [facility] Work Phone: [phone]) [phone] Progress note Author Jersey Bess [facility] Note Date/Time April 15, 2024 12:12pm [facility] [address] [place] [address] Hospitalist Progress Note Signed Patient: Corwin Muller MR#: [id number] : 1945 Acct:[id number] Age/Sex: 79 / M Adm Date: 5 Loc: Room: [address] [place] [address] Type: ADM IN Attending Dr: Jersey Bess [...] <Electronically signed by Jersey Bess MD> 04/15/[address] [place] [address] Work Phone: 1([phone]) 313-931102-24-2025 [place] [address] Cardiology Progress Note Signed Patient: Corwin Muller MR#: [id number] : 1945 Acct:[id number] Age/Sex: 79 / M Adm Date: 5 Loc: 4 Room: [address] [place] [address] Type: ADM IN Attending Dr: Jersey Bess [...] MD 04/15/24 1244 Signed By: 04/15/24 1247 [facility]02-24-[address] [address] Hospitalist Progress Note Signed Patient: Corwin uMller MR#: [id number] : 1945 Acct:[id number] Age/Sex: 79 / M Adm Date: 5 Loc: 4P Room: 0N3274-1 Type: ADM IN Attending Dr: Jersey Bess [...] 04/15/24 11 54 Signed By: 04/15/24 1212 [facility]02-23-2025 Progress note Author Jersey Bess [facility] Note Date/Time April 14, 2024 1:43pm [facility] [address] [place] [address] Hospitalist Progress Note Signed Patient: Corwin Muller MR#: [id number] : 1945 Acct:[id number] Age/Sex: 79 / M Adm Date: 5 Loc: Room: [address] [place] [address] Type: ADM IN Attending Dr: Jersey Bess [...] 37 Signed By: <Electronically signed by Jersey eBss MD> 04/14/24 1343 [facility] Work Phone: [phone]) 842-632502-23-2025 Progress note Author Tobi Monroy [facility] Note Date/Time April 14, 2024 1:06pm [facility] [address] [place] [address] Nephrology Progress Note Signed Patient: Corwin Muller MR#: [id number] : 1945 Acct:[id number] Age/Sex: 79 / M Adm Date: 5 Loc: Room: [address] [place] [address] Type: ADM IN Attending Dr: Jersey Bess [...] that time. He was evaluated in the [facility] with EKG showing SVT and inverted [...] 200 Mg Tablet) [address] [facility] Stop: 04/11/25 13:59 Last Admin: 04/14/24 09:16 Dose: 400 mg Apixaban (Apixaban 2.5 Mg Tablet) 2.[address] [facility] Stop: 04/12/25 20:59 Last Admin: 04/14/24 09:17 Dose: 2.5 mg Aspirin (Aspirin 81 Mg Tablet.) [address] [facility] Stop: 04/11/25 08:59 Last Admin: 04/14/24 09:15 Dose: 81 mg Diltiazem HCl (Diltiazem Cd.24hr 180 Mg Cap.Er.24h) [address] [facility] Stop: 04/15/25 08:59 Furosemide (Furosemide 40 Mg Tablet) 40 mg PO BID@0800,1600 [facility] Stop: 04/12/25 15:59 Last Admin: 04/14/24 09:16 Dose: 40 mg Hydralazine HCl (Hydralazine 25 Mg Tablet) [address] [facility] Stop: 04/12/25 20:59 Last Admin: 04/14/24 09:17 Dose: 25 mg Ceftriaxone Sodium (Rocephin) 1 gm in 50 mls @ 100 mls/hr IV Q24H [facility] Last Admin: 04/14/24 11:29 Dose: 100 mls/hr Isosorbide Mononitrate (Isosorbide Mononitrate 24hr Er 30 Mg Tab.Er.24h) [address] [facility] Stop: 04/13/25 05:59 Last Admin: 04/14/24 05:50 Dose: 30 mg Metoprolol Succinate (Metoprolol Succinate 50 Mg Tab.Er.24h) [address] [facility] Stop: 04/13/25 20:59 Last Admin: 04/14/24 [...] infarction): Assessment/Problem Details: Patient was admitted for MO and his echocardiogram showed EF 35 to [...] <Electronically signed by Tobi Monroy MD> 04/14/24 1305 [facility] Work Phone: 1(401) 729-138002-23-2025 Progress note Author Bubba Jessica [facility] Note Date/Time April 14, 2024 12:48pm [facility] [address] [place] [address] Cardiology Progress Note Signed Patient: Corwin Muller MR#: [id number] : 1945 Acct:[id number] Age/Sex: 79 / M Adm Date: 5 Loc: 4 Room: [id number] Type: ADM IN Attending Dr: Jersey Bess MD Copies to: ~ Date of Service: 04/14/2024 Subjective Principal diagnosis: Congestive heart failure/atrial fibrillation Interval history: Mr. Muller is a 79 year old male was sent by his physician to the hospital because of observation of worsening respiratory status and tachycardia. He was evaluated in the emergency room at [facility]. The patient described progressive shortness of breath [...] elevated when the patient was sent to [facility] for further care. The patient [...] signed by Bubba Jessica MD> 04/14/24 1248 [facility] Work Phone: [phone]) [phone] [place] [address] Hospitalist Progress Note Signed Patient: Corwin Muller MR#: [id number] : 1945 Acct:[id number] Age/Sex: 79 / M Adm Date: 5 Loc: Room: [address] [place] [address] Type: ADM IN Attending Dr: Jersey Bess [...] MD 04/14/24 13 37 Signed By: 04/14/[address] [place], [place] 9555602-23-2025 [place] [address] Nephrology Progress Note Signed Patient: Corwin Muller MR#: [id number] : 1945 Acct:[id number] Age/Sex: 79 / M Adm Date: 5 Loc: Room: [address] [place] [address] Type: ADM IN Attending Dr: Jersey Bess [...] that time. He was evaluated in the [facility] with EKG showingSVT and inverted T [...] 200 Mg Tablet) [address] [facility] Stop: 04/11/25 13:59 Last Admin: 04/14/24 09:16 Dose: 400 mg Apixaban (Apixaban 2.5 Mg Tablet) 2.[address] [facility] Stop: 04/12/25 20:59 Last Admin: 04/14/24 09:17 Dose: 2.5 mg Aspirin (Aspirin 81 Mg Tablet.Dr) [address] [facility] Stop: 04/11/25 08:59 Last Admin: 04/14/24 09:15 Dose: 81 mg Diltiazem HCl (Diltiazem Cd.24hr 180 Mg Cap.Er.24h) [address] [facility] Stop: 04/15/25 08:59 Furosemide (Furosemide 40 Mg Tablet) 40 mg PO BID@0800,1600 [facility] Stop: 04/12/25 15:59 Last Admin: 04/14/24 09:16 Dose: 40 mg Hydralazine HCl (Hydralazine 25 Mg Tablet) [address] [facility] Stop: 04/12/25 20:59 Last Admin: 04/14/24 09:17 Dose: 25 mg Ceftriaxone Sodium (Rocephin) 1 gm in 50 mls @ 100 mls/hr IV Q24H [facility] Last Admin: 04/14/24 11:29 Dose: 100 mls/hr Isosorbide Mononitrate (Isosorbide Mononitrate 24hr Er 30 Mg Tab.Er.24h) [address] [facility] Stop: 04/13/25 05:59 Last Admin: 04/14/24 [...] 10 Ml Syringe) 0 ml IV-PUSH QSHIFT [facility] Stop: 04/10/25 05:59 Last Admin: 04/13/24 21:31 [...] infarction): Assessment/Problem Details: Patient was admitted for MO and his echocardiogram showed EF 35 to [...] Monroy MD 04/14/24 1257 Signed By: 04/14/[address] [place], [place] 8520302-23-2025 [place] [address] Cardiology Progress Note Signed Patient: Corwin Muller MR#: [id number] : 1945 Acct:[id number] Age/Sex: 79 / M Adm Date: 5 Loc: Room: [address] [place] [address] Type: ADM IN Attending Dr: Jersey Bess MD Copies to: ~ Date of Service: 04/14/2024 Subjective Principal diagnosis: Congestive heart failure/atrial fibrillation Interval history: Mr. Muller is a 79 year old male was sent by his physician to the hospital because of observationof worsening respiratory status and tachycardia. He was evaluated in the emergency room at [facility]. The patient described progressive shortness of breath [...] elevated when the patient was sent to [facility] for further care. Thepatient denies [...] By: Bubba Jessica MD 03/24 Signed By: 04/14/24 1248 [facility]02-22-2025 Progress note Author Tobi Monroy [facility] Note Date/Time April 13, 2024 2:23pm [facility] [address] [place] [address] Nephrology Progress Note Signed Patient: Corwin Muller MR#: [id number] : 1945 Acct:[id number] Age/Sex: 79 / M Adm Date: 5 Loc: Room: [address] [place] [address] Type: ADM IN Attending Dr: Jersey Bess [...] that time. He was evaluated in the [facility] with EKG showing SVT and inverted [...] 200 Mg Tablet) [address] [facility] Stop: 04/11/25 13:59 Last Admin: 04/13/24 09:51 Dose: 400 mg Apixaban (Apixaban 2.5 Mg Tablet) 2.[address] [facility] Stop: 04/12/25 20:59 Last Admin: 04/13/24 09:43 Dose: 2.5 mg Aspirin (Aspirin 81 Mg Tablet.Dr) [address] [facility] Stop: 04/11/25 08:59 Last Admin: 04/13/24 09:45 Dose: 81 mg Diltiazem HCl (Diltiazem Cd.24hr 240 Mg Cap.Er.24h) [address] [facility] Stop: 04/13/25 12:44 Furosemide (Furosemide 40 Mg Tablet) 40 mg PO BID@0800,1600 [facility] Stop: 04/12/25 15:59 Last Admin: 04/13/24 09:44 Dose: 40 mg Hydralazine HCl (Hydralazine 25 Mg Tablet) [address] [facility] Stop: 04/12/25 20:59 Last Admin: 04/13/24 09:44 Dose: 25 mg Diltiazem HCl (Cardizem) 100 mg in 100 mls @ 10 mls/hr IV .Q10H [facility]; Protocol Stop: 04/11/25 10:14 Last Admin: 04/13/24 02:47 Dose: 10 mg/hr, 10 mls/hr Ceftriaxone Sodium (Rocephin) 1 gm in 50 mls @ 100 mls/hr IV Q24H [facility] Last Admin: 04/13/24 12:32 Dose: 100 mls/hr Isosorbide Mononitrate (Isosorbide Mononitrate 24hr Er 30 Mg Tab.Er.24h) [address] [facility] Stop: 04/13/25 05:59 Last Admin: 04/13/24 05:43 Dose: 30 mg Metoprolol Succinate (Metoprolol Succinate 50 Mg Tab.Er.24h) [address] [facility] Stop: 04/13/25 20:59 Morphine Sulfate (Morphine Sulfate 2 Mg/Ml Vial) 2 mg IV-PUSH Q4H PRN PRN Reason: Pain Scale 8 - 10 Ondansetron HCl (Ondansetron 4 Mg/2 Ml Vial) 4 mg IV-PUSH Q6H PRN PRN Reason: Nausea And Vomiting Stop: 04/10/25 04:04 Potassium Chloride (Potassium Chloride Er 20 Meq Tab.Er.Prt) [address] [facility] Stop: 04/13/25 08:59 Last Admin: 04/13/24 [...] Jones Pedro M.D.04/12/2024 9:34 PM Dictation Location: [place] [address] Any impression(s) listed above is documentation that [...] infarction): Assessment/Problem Details: Patient was admitted for MO and his echocardiogram showed EF 35 to [...] <Electronically signed by Tobi Monroy MD> 04/13/241422 [facility] Work Phone: 1(263) 453-589302-22-2025 Progress note Author Bubba Jessica [facility] Note Date/Time April 13, 2024 1:26pm [facility] [address] [place] [address] Cardiology Progress Note Signed Patient: Corwin Muller MR#: [id number] : 1945 Acct:[id number] Age/Sex: 79 / M Adm Date: 5 Loc: Room: [address] [place] [address] Type: ADM IN Attending Dr: Jersey Bess MD Copies to: ~ Date of Service: 04/13/2024 Subjective Principal diagnosis: Congestive heart failure/atrial fibrillation Interval history: Mr. Muller is a 79 year old male was sent by his physician to the hospital because of observation of worsening respiratory status and tachycardia. He was evaluated in the emergency room at [facility]. The patient described progressive shortness of breath [...] elevated when the patient was sent to [facility] for further care. The patient [...] % (Auto) 63.3 Lymph % (Auto) 18.6 [place] % (Auto) 11.0 Eos % (Auto) 6.7 Baso % (Auto) 0.4 Nucleat RBC Rel Count 0.1 Neut # (Auto) 5.5 Lymph # (Auto) 1.6 [place] # (Auto) 1.0 H Eos # (Auto) [...] Documented By: Bubba Jessica MD 03/24 04/16 1313 Signed By: <Electronically signed by Bubba Jessica MD> 04/13/24 1328 [facility] Work Phone: 1(783) 660-856102-22-2025 [place] [address] Nephrology Progress Note Signed Patient: Corwin Muller MR#: [id number] : 1945 Acct:[id number] Age/Sex: 79 / M Adm Date: 5 Loc: Room: [address] [place] [address] Type: ADM IN Attending Dr: Jersey Bess [...] that time. He was evaluated in the [facility] with EKG showingSVT and inverted T [...] 200 Mg Tablet) [address] [facility] Stop: 04/11/25 13:59 Last Admin: 04/13/24 09:51 Dose: 400 mg Apixaban (Apixaban 2.5 Mg Tablet) 2.[address] [facility] Stop: 04/12/25 20:59 Last Admin: 04/13/24 09:43 Dose: 2.5 mg Aspirin (Aspirin 81 Mg Tablet.Dr) [address] [facility] Stop: 04/11/25 08:59 Last Admin: 04/13/24 09:45 Dose: 81 mg Diltiazem HCl (Diltiazem Cd.24hr 240 Mg Cap.Er.24h) [address] [facility] Stop: 04/13/25 12:44 Furosemide (Furosemide 40 Mg Tablet) 40 mg PO BID@0800,1600 [facility] Stop: 04/12/25 15:59 Last Admin: 04/13/24 09:44 Dose: 40 mg Hydralazine HCl (Hydralazine 25 Mg Tablet) [address] [facility] Stop: 04/12/25 20:59 Last Admin: 04/13/24 09:44 Dose: 25 mg Diltiazem HCl (Cardizem) 100 mg in 100 mls @ 10 mls/hr IV .Q10H [facility]; Protocol Stop: 04/11/25 10:14 Last Admin: 04/13/24 02:47 Dose: 10 mg/hr, 10 mls/hr Ceftriaxone Sodium (Rocephin) 1 gm in 50 mls @ 100 mls/hr IV Q24H [facility] Last Admin: 04/13/24 12:32 Dose: 100 mls/hr Isosorbide Mononitrate (Isosorbide Mononitrate 24hr Er 30 Mg Tab.Er.24h) [address] [facility] Stop: 04/13/25 05:59 Last Admin: 04/13/24 05:43 Dose: 30 mg Metoprolol Succinate (Metoprolol Succinate 50 Mg Tab.Er.24h) [address] [facility] Stop: 04/13/25 20:59 Morphine Sulfate (Morphine [...] Jones Pedro M.D.04/12/2024 9:34 PM Dictation Location: [place] [address] Any impression(s) listed above is documentation that [...] infarction): Assessment/Problem Details: Patient was admitted for MO and his echocardiogram showed EF 35 to [...] Monroy MD 04/13/241419 Signed By: 04/13/24 1423 [facility]02-22-2025 Progress note Author Jersey Bess [facility] Note Date/Time April 13, 2024 11:47am [facility] [address] [place] [address] Hospitalist Progress Note Signed Patient: Corwin Muller MR#: [id number] : 1945 Acct:[id number] Age/Sex: 79 / M Adm Date: 5 Loc: Room: 0Z3102-7 Type: ADM IN Attending Dr: Jersey Bess [...] <Electronically signed by Jersey Bess MD> 04/13/[address] [place] [address] Work Phone: 1(278) 831-109602-22-2025 [place] [id number] Cardiology Progress Note Signed Patient: Corwin Muller MR#: [id number] : 1945 Acct:[id number] Age/Sex: 79 / M Adm Date: 5 Loc: 4P Room: 4K6961-3 Type: ADM IN Attending Dr: Jersey Bess MD Copies to: ~ Date of Service: 04/13/2024 Subjective Principal diagnosis: Congestive heart failure/atrial fibrillation Interval history: Mr. Muller is a 79 year old male was sent by his physician to the hospital because of observationof worsening respiratory status and tachycardia. He was evaluated in the emergency room at [facility]. The patient described progressive shortness of breath [...] elevated when the patient was sent to [facility] for further care. Thepatient denies [...] % (Auto) 63.3 Lymph % (Auto) 18.6 [place] % (Auto) 11.0 Eos % (Auto) 6.7 Baso % (Auto) 0.4 Nucleat RBC Rel Count 0.1 Neut # (Auto) 5.5 Lymph # (Auto) 1.6 [place] # (Auto) 1.0 H Eos # (Auto) [...] 03/24 04/16 1319 Signed By: 04/13/24 1326 [facility]02-22-2025 [place] [address] Hospitalist Progress Note Signed Patient: Corwin Muller MR#: [id number] : 1945 Acct:[id number] Age/Sex: 79 / M Adm Date: 5 Loc: 4 Room: [address] [place] [address] Type: ADM IN Attending Dr: Jersey Bess [...] 04/13/24 11 44 Signed By: 04/13/24 1147 [facility]02-21-2025 Radiology Diagnostic study note [facility] [place] [address] [place] [address] Ultrasound Report Signed Patient: Corwin Muller MR#: [id number] : 1945 Acct:[id number] Age/Sex: 79 / M ADM Date: 5 Loc: 4 Room: [address] [place] [address] Type: ADM IN Attending Dr: Jersey Bess [...] Jones Pedro M.D.04/12/2024 9:34 PM Dictation Location: [place] [address] Tech: Lacey Archer Transcribed By: [facility] 04/12/242133 Dictated By: Jones Pedro II, MD 04/12/242132 Signed By: 04/12/242133 [facility] Work Phone: 1(313) 292-776202-21-2025 Progress note Author Keron Gutierres [facility] Note Date/Time April 12, 2024 6:17pm [facility] [address] [place] [address] Cardiology Progress Note Signed Patient: Corwin Muller MR#: [id number] : 1945 Acct:[id number] Age/Sex: 79 / M Adm Date: 5 Loc: 4 Room: [address] [place] [address] Type: ADM IN Attending Dr: Jersey Bess MD Copies to: ~ Date of Service: 04/12/2024 Subjective Principal diagnosis: Congestive heart failure/atrial fibrillation Interval history: Mr. Muller is a 79 year old male was sent by his physician to the hospital because of observation of worsening respiratory status and tachycardia. He was evaluated in the emergency room at [facility]. The patient described progressive shortness of breath [...] elevated when the patient was sent to [facility] for further care. The patient [...] % (Auto) 60.4 Lymph % (Auto) 23.6 [place] % (Auto) 11.0 Eos % (Auto) 4.7 Baso % (Auto) 0.3 Nucleat RBC Rel Count 0.1 Neut # (Auto) 6.6 Lymph # (Auto) 2.6 [place] # (Auto) 1.2 H Eos # (Auto) [...] Color Urine Appearance Urine pH Ur Specific Orange Urine Protein Urine Glucose (UA) Urine Ketones [...] MPV Neut % (Auto) Lymph % (Auto) [place] % (Auto) Eos % (Auto) Baso % (Auto) Nucleat RBC Rel Count Neut # (Auto) Lymph # (Auto) [place] # (Auto) Eos # (Auto) Baso # (Auto) Heparin Anti-Xa, Unfract 0.32 PHA Creatinine Clear Sodium Potassium Chloride Carbon Dioxide Anion Gap BUN Creatinine Est GFR (CKD-EPI) Glucose Calcium Total Bilirubin AST ALT Alkaline Phosphatase Total Protein Albumin Globulin Albumin/Globulin Ratio Urine Color Light-orange A Urine Appearance Turbid A Urine pH 5.5 Ur Specific Orange 1.011 Urine Protein 50 H Urine Glucose [...] bedside Documented By: Keron Gutierres MD, FACC 02/211811 Signed By: <Electronically signed by MD JUAN Gutierres> 04/12/241816 [facility] Work Phone: 1(525) 530-720702-21-[address] [address] Cardiology Progress Note Signed Patient: Corwin Muller MR#: [id number] : 1945 Acct:[id number] Age/Sex: 79 / M Adm Date: 5 Loc: 4 Room: 7V6307-3 Type: ADM IN Attending Dr: Jersey Bess MD Copies to: ~ Date of Service: 04/12/2024 Subjective Principal diagnosis: Congestive heart failure/atrial fibrillation Interval history: Mr. Muller is a 79 year old male was sent by his physician to the hospital because of observationof worsening respiratory status and tachycardia. He was evaluated in the emergency room at [facility]. The patient described progressive shortness of breath [...] elevated when the patient was sent to [facility] for further care. Thepatient denies [...] % (Auto) 60.4 Lymph % (Auto) 23.6 [place] % (Auto) 11.0 Eos % (Auto) 4.7 Baso % (Auto) 0.3 Nucleat RBC Rel Count 0.1 Neut # (Auto) 6.6 Lymph # (Auto) 2.6 [place] # (Auto) 1.2 H Eos # (Auto) [...] Color Urine Appearance Urine pH Ur Specific Orange Urine Protein Urine Glucose (UA) Urine Ketones [...] MPV Neut % (Auto) Lymph % (Auto) [place] % (Auto) Eos % (Auto) Baso % (Auto) Nucleat RBC Rel Count Neut # (Auto) Lymph # (Auto) [place] # (Auto) Eos # (Auto) Baso # (Auto) Heparin Anti-Xa, Unfract 0.32 PHA Creatinine Clear Sodium Potassium Chloride Carbon Dioxide Anion Gap BUN Creatinine Est GFR (CKD-EPI) Glucose Calcium Total Bilirubin AST ALT Alkaline Phosphatase Total Protein Albumin Globulin Albumin/Globulin Ratio Urine Color Light-orange A Urine Appearance Turbid A Urine pH 5.5 Ur Specific Orange 1.011 Urine Protein 50 H Urine Glucose [...] Gutierres MD, FACC 1811 Signed By: 04/12/241816 [facility]02-21-2025 Progress note Author Jersey Bess [facility] Note Date/Time April 12, 2024 3:42pm [facility] [address] [place] [address] Hospitalist Progress Note Signed Patient: Corwin Muller MR#: [id number] : 1945 Acct:[id number] Age/Sex: 79 / M Adm Date: 5 Loc: Room: [address] [place] [address] Type: ADM IN Attending Dr: Jersey Bess [...] 40 Mg Tablet PO 04/12/25 15:59 BID@0800,1600 [facility] Heparin Sodium (Porcine) 2,000 unit 04/11/24 10:14 Heparin *Protocol Bolus* 5,000 Unit/Ml Vial IV-PUSH 04/11/25 10:13 PROTOCOL PRN Anti-Xa < 0.1 or aPTT < 40 Hydralazine HCl 50 mg 04/11/24 21:00 04/11/24 21:45 Hydralazine 50 Mg Tablet PO 04/11/25 20:[address] [facility] Diltiazem HCl 100 mg in 100 [...] <Electronically signed by Jersey Bess MD> 04/12/[address] [place] [address] Work Phone: 1(839) 105-529202-21-2025 [place] [address] Hospitalist Progress Note Signed Patient: Corwin Muller MR#: [id number] : 1945 Acct:[id number] Age/Sex: 79 / M Adm Date: 5 Loc: Room: [address] [place] [address] Type: ADM IN Attending Dr: Jersey Bess [...] 40 Mg Tablet PO 04/12/25 15:59 BID@0800,1600 [facility] Heparin Sodium (Porcine) 2,000 unit 04/11/24 10:14 [...] 04/12/24 15 37 Signed By: 04/12/24 1542 [facility]02-21-2025 Consult note Author Tobi Monroy [facility] Note Date/Time [facility] 12, [facility] [address] [place] [address] Nephrology Consult Note Signed Patient: Corwin Muller MR#: [id number] : 1945 Acct:[id number] Age/Sex: 79 / M Adm Date: 5 Loc: 4 Room: [address] [place] [address] Type: ADM IN Attending Dr: Jersey Bess MD Copies to: MD Ranjan Patrick DO Kaitlyn Rizzo, DO, RES Jersey Bess MD~ Providers Consult Date: 04/12/24 Requesting Provider: Jersey Bess MD Primary Care Provider: Ranjan Andersen DO HPI Reason for Consult: YOJANA, fluid [...] that time. He was evaluated in the [facility] with EKG showing SVT and inverted [...] polydipsia Dermatological: denies any itching or rash [facility] Medical History (Updated 04/12/24 @ 10:33 [...] 200 Mg Tablet) [address] [facility] Stop: 04/11/25 13:59 Last Admin: 04/12/24 08:28 Dose: 400 mg Aspirin (Aspirin 81 Mg Tablet.) [address] [facility] Stop: 04/11/25 08:59 Last Admin: 04/12/24 08:28 Dose: 81 mg Carvedilol (Carvedilol 6.25 Mg Tablet) 6.25 mg PO BID.WITH.MEALS [facility] Stop: 04/11/25 07:59 Last Admin: 04/12/24 08:28 Dose: 6.25 mg Furosemide (Furosemide 40 Mg/4 Ml Vial) 40 mg IV-PUSH BID@0800,1600 [facility] Stop: 04/11/25 15:59 Last Admin: 04/12/24 08:28 Dose: 40 mg Heparin Sodium (Porcine) (Heparin *Protocol Bolus* 5,000 Unit/Ml Vial) 2,000 unit IV-PUSH PROTOCOL PRN PRN Reason: Anti-Xa < 0.1 or aPTT < 40 Stop: 04/11/25 10:13 Hydralazine HCl (Hydralazine 50 Mg Tablet) [address] [facility] Stop: 04/11/25 20:59 Last Admin: 04/11/24 21:45 Dose: Not Given Diltiazem HCl (Cardizem) 100 mg in 100 mls @ 10 mls/hr IV .Q10H [facility]; Protocol Stop: 04/11/25 10:14 Last Admin: 04/12/24 06:07 Dose: 10 mg/hr, 10 mls/hr Heparin Sodium/Sodium Chloride (Heparin) 25,000 unit in 250 mls @ 9.99 mls/hr IV .Q24H [facility]; Protocol Stop: 04/11/25 10:14 Last Titration: 04/12/24 01:48 Dose: 14.68 unit/kg/hr, 15.15 mls/hr Isosorbide Mononitrate (Isosorbide Mononitrate 24hr Er 60 Mg Tab.Er.24h) [address] [facility] Stop: 04/11/25 11:59 Last Admin: 04/12/24 [...] infarction): Assessment/Problem Details: Patient was admitted for MO and his echocardiogram showed EF 35 to [...] daily. Documented By: Tobi Monroy MD 04/12/24 1675 Signed By: <Electronically signed by Tobi Monroy MD> 04/12/24 1034 <Electronically signed by DO INKO Carpenter> 04/12/24 1022 [facility] Work Phone: 1(675) 996-248202-21-2025 [place] [address] Nephrology Consult Note Signed Patient: Corwin Muller MR#: [id number] : 1945 Acct:[id number] Age/Sex: 79 / M Adm Date: 5 Loc: Room: [address] [place] [address] Type: ADM IN Attending Dr: Jersey Bess MD Copies to: MD Ranjan Patrick DO Kaitlyn Rizzo, DO, RES Jersey Bess MD~ Providers Consult Date: 04/12/24 Requesting Provider: Jersey Bess MD Primary Care Provider: Ranjan Andersen DO HPI Reason for Consult: YOJANA, fluid [...] that time. He was evaluated in the [facility] with EKG showingSVT and inverted T [...] polydipsia Dermatological: denies any itching or rash [facility] Medical History (Updated 04/12/24 @ 10:33 by Tobi Monroy MD) Atrial tachycardia Lumbar spondylosis Hyperlipidemia type II Primary osteoarthritis of right knee Primary osteoarthritis of left knee Knee pain Hypertension Elevated cholesterol Surgical History H/O hernia repair Family History Father 67 yrs Aortic aneurysm and dissection Mother 90 yrs [facility]: Diagnosed with Stroke Stroke Brother [...] 200 Mg Tablet) [address] [facility] Stop: 04/11/25 13:59 Last Admin: 04/12/24 08:28 Dose: 400 mg Aspirin (Aspirin 81 Mg Tablet.) [address] [facility] Stop: 04/11/25 08:59 Last Admin: 04/12/24 08:28 Dose: 81 mg Carvedilol (Carvedilol 6.25 Mg Tablet) 6.25 mg PO BID.WITH.MEALS [facility] Stop: 04/11/25 07:59 Last Admin: 04/12/24 08:28 Dose: 6.25 mg Furosemide (Furosemide 40 Mg/4 Ml Vial) 40 mg IV-PUSH BID@0800,1600 [facility] Stop: 04/11/25 15:59 Last Admin: 04/12/24 08:28 Dose: 40 mg Heparin Sodium (Porcine) (Heparin *Protocol Bolus* 5,000 Unit/Ml Vial) 2,000 unit IV-PUSH PROTOCOL PRN PRN Reason: Anti-Xa < 0.1 or aPTT < 40 Stop: 04/11/25 10:13 Hydralazine HCl (Hydralazine 50 Mg Tablet) [address] [facility] Stop: 04/11/25 20:59 Last Admin: 04/11/24 21:45 Dose: Not Given Diltiazem HCl (Cardizem) 100 mg in 100 mls @ 10 mls/hr IV .Q10H [facility]; Protocol Stop: 04/11/25 10:14 Last Admin: 04/12/24 06:07 Dose: 10 mg/hr, 10 mls/hr Heparin Sodium/Sodium Chloride (Heparin) 25,000 unit in 250 mls @ 9.99 mls/hr IV .Q24H [facility]; Protocol Stop: 04/11/25 10:14 Last Titration: 04/12/24 01:48 Dose: 14.68 unit/kg/hr, 15.15 mls/hr Isosorbide Mononitrate (Isosorbide Mononitrate 24hr Er 60 Mg Tab.Er.24h) [address] [facility] Stop: 04/11/25 11:59 Last Admin: 04/12/24 [...] infarction): Assessment/Problem Details: Patient was admitted for MO and his echocardiogram showed EF 35 to [...] 0855 Signed By: 04/12/24 1034 04/12/24 1022 [facility]02-20-2025 Progress note Author Keron Gutierres [facility] Note Date/Time April 11, 2024 12:56pm [facility] [address] [place] [address] Cardiology Progress Note Signed Patient: Corwin Muller MR#: [id number] : 1945 Acct:[id number] Age/Sex: 79 / M Adm Date: 5 Loc: Room: [address] [place] [address] Type: ADM IN Attending Dr: Jersey Bess MD Copies to: ~ Date of Service: 04/11/2024 Subjective Principal diagnosis: Congestive heart failure/atrial fibrillation Interval history: Mr. Muller is a 79 year old male was sent by his physician to the hospital because of observation of worsening respiratory status and tachycardia. He was evaluated in the emergency room at [facility]. The patient described progressive shortness of breath [...] elevated when the patient was sent to [facility] for further care. The patient [...] % (Auto) 63.0 Lymph % (Auto) 21.4 [place] % (Auto) 10.9 Eos % (Auto) 4.3 Baso % (Auto) 0.4 Nucleat RBC Rel Count 0.1 Neut # (Auto) 5.9 Lymph # (Auto) 2.0 [place] # (Auto) 1.0 H Eos # (Auto) [...] the bedside Documented By: Keron Gutierres MD, [facility] 5 1250 Signed By: <Electronically signed by MD JUAN Gutierres> 04/11/24 1256 [facility] Work Phone: 1(147) 707-475402-20-2025 Progress note Author Jersey Bess [facility] Note Date/Time April 11, 2024 12:15pm [facility] [address] [place], [place] [id number] Hospitalist Progress Note Signed Patient: Corwin Muller MR#: [id number] : 1945 Acct:[id number] Age/Sex: 79 / M Adm Date: 5 Loc: 4 Room: [address] [place] [address] Type: ADM IN Attending Dr: Jersey Bess [...] signed by Jersey Bess MD> 04/11/24 1215 [facility] Work Phone: 1([phone]) 525-866202-20-[address] [address] Cardiology Progress Note Signed Patient: Corwin Muller MR#: [id number] : 1945 Acct:[id number] Age/Sex: 79 / M Adm Date: 5 Loc: Room: [address] [place] [address] Type: ADM IN Attending Dr: Jersey Bess MD Copies to: ~ Date of Service: 04/11/2024 Subjective Principal diagnosis: Congestive heart failure/atrial fibrillation Interval history: Mr. Muller is a 79 year old male was sent by his physician to the hospital because of observationof worsening respiratory status and tachycardia. He was evaluated in the emergency room at [facility]. The patient described progressive shortness of breath [...] elevated when the patient was sent to [facility] for further care. Thepatient denies [...] % (Auto) 63.0 Lymph % (Auto) 21.4 [place] % (Auto) 10.9 Eos % (Auto) 4.3 Baso % (Auto) 0.4 Nucleat RBC Rel Count 0.1 Neut # (Auto) 5.9 Lymph # (Auto) 2.0 [place] # (Auto) 1.0 H Eos # (Auto) [...] Documented By: Keron Gutierres MD, FACC 5 1250 Signed By: 04/11/24 1256 [facility]02-20-2025 [place] [address] Hospitalist Progress Note Signed Patient: Corwin Muller MR#: [id number] : 1945 Acct:[id number] Age/Sex: 79 / M Adm Date: Loc: 4 Room: [address] [place] [address] Type: ADM IN Attending Dr: Jersey Bess [...] Tablet PO 04/11/25 07:59 6.25 mg BID.WITH.MEALS [facility] Administration Heparin Sodium (Porcine) 2,000 unit 04/11/24 10:14 Heparin *Protocol Bolus* 5,000 Unit/Ml Vial IV-PUSH 04/11/25 10:13 PROTOCOL PRN Anti-Xa < 0.1 or aPTT < 40 Hydralazine HCl 50 mg 04/11/24 21:00 Hydralazine 50 Mg Tablet PO 04/11/25 20:[address] [facility] Furosemide 500 mg/ Sodium 100 mls [...] 04/11/24 11 57 Signed By: 04/11/24 1215 [facility]02-19-2025 Consult note Author Mely Ken [facility] Note Date/Time April 10, 2024 6:17pm [facility] [address] [place] [address] Cardiology Consult Note Signed Patient: Corwin Muller MR#: [id number] : 1945 Acct:[id number] Age/Sex: 79 / M Adm Date: 5 Loc: Room: [address] [place] [address] Type: ADM IN Attending Dr: Jersey Bess [...] was evaluated in the emergency room at [facility]. The patient described progressive shortness of breath [...] elevated when the patient was sent to [facility] for further care. The patient [...] shortness of breath, orthopnea and the pain [facility] Medical History Atrial tachycardia Chronic kidney [...] x10E3/uL Lymph # (Auto) 2.0 (1.00-4.8) x10E3/uL [place] # (Auto) 1.1 H (0.0-0.8) x10E3/uL Eos [...] Amount (Catheter) 400 1999 Urethral (Ruiz) 400 / 1999 Other: [...] <Electronically signed by MD Mely Ken> 04/10/241816 [facility] Work Phone: 1(662) 863-369902-19-2025 Consult [place] [id number] Cardiology Consult Note Signed Patient: Corwin Muller MR#: [id number] : 1945 Acct:[id number] Age/Sex: 79 / M Adm Date: 5 Loc: Room: [address] [place] [address] Type: ADM IN Attending Dr: Jersey Bess [...] was evaluated in the emergency room at [facility]. The patient described progressive shortness of breath [...] elevated when the patient was sent to [facility] for further care. Thepatient denies [...] shortness of breath, orthopnea and the pain [facility] Medical History Atrial tachycardia Chronic kidney [...] x10E3/uL Lymph # (Auto) 2.0 (1.00-4.8) x10E3/uL [place] # (Auto) 1.1 H (0.0-0.8) x10E3/uL Eos [...] 350 Output Total 400 / 2000 1599 / 1999 Balance -250 / -1650 -1400 / -1650 Intake: Oral 150 / 350 200 / 350 Output: Urine Amount (Catheter) 400 / 1999 1599 / 1999 Urethral (Ruiz) 400 / 1999 1599 / 1999 Other: Weight 103.2 kg Date [...] Mely Ken MD 04/10/241806 Signed By: 04/10/241816 [facility]02-19-2025 Progress note Author Jersey Bess [facility] Note Date/Time April 10, 2024 2:38pm [facility] [address] [place] [address] Progress Note Signed Patient: Corwin uMller MR#: [id number] : 1945 Acct:[id number] Age/Sex: 79 / M Adm Date: 5 Loc: Room: [address] [place] [address] Type: ADM IN Attending Dr: Jersey Bess [...] signed by Jersey Bess MD> 04/10/24 1438 [facility] Work Phone: 1(535) 559-254102-19-[address] [address] Progress Note Signed Patient: Corwin Muller MR#: [id number] : 1945 Acct:[id number] Age/Sex: 79 / M Adm Date: 5 Loc: Room: [address] [place] [address] Type: ADM IN Attending Dr: Jersey Bess [...] 04/10/24 14 34 Signed By: 04/10/24 1438 [facility]02-19-2025 History and physical note Author Holly Weinberg [facility] Note Date/Time April 10, 2024 6:45am [facility] [address] [place] [address] Hospitalist H&P Signed Patient: Corwin Muller MR#: [id number] : 1945 Acct:[id number] Age/Sex: 79 / M Adm Date: 5 Loc: 3T Room: [address] [place] [address] Type: ADM IN Attending Dr: Kurtis Langley MD Copies to: MD Ranjan Soto,DO Holly Weinberg, [employer]~ HPI DATE OF EXAMINATION: 04/10/24 CHIEF COMPLAINT: [...] Findings were consistent with acute pulmonary edema. Xmtaa-ul-tfbn ultrasound confirmed scattered B-lines bilaterally, there was [...] drinks alcohol. States that he exercises daily. [facility] chart review?initial EKG SVT with a [...] unless noted in the HPI or below. [facility] Medical History Atrial tachycardia Chronic kidney [...] signed by Kurtis Langley MD> 04/10/24 0645 [facility] Work Phone: 1(818) 483-612102-19-2025 [place] [address] Hospitalist H&P Signed Patient: Corwin Muller MR#: [id number] : 1945 Acct:[id number] Age/Sex: 79 / M Adm Date: 5 Loc: 3T Room: [address] [place] [address] Type: ADM IN Attending Dr: Kurtis Langley MD Copies to: MD Ranjan oSto DO Paula G Smith, APRN~ HPI DATE [...] were con sistent with acute pulmonary edema. Dywuj-lh-ihgm ultrasound confirmed scattered B-lines bilaterally, there was [...] drinks alcohol. States that he exercises daily. [facility] chart review?initial EKG SVT with a [...] unless noted in the HPI or below. [facility] Medical History Atrial tachycardia Chronic kidney disease Lumbar spondylosis Hyperlipidemia type II Primary osteoarthritis of right knee Primary osteoarthritis of left knee Knee pain Hypertension Elevated cholesterol Surgical History H/O hernia repair Family History (Updated 04/10/24 @ 04:14 by Holly Weinberg APRN) Father 67 yrs Aortic aneurysm and dissection Mother 90 yrs History of stroke [facility] Problem: Diagnosed with Stroke Stroke Brother [...] of days): 3 Documented By: Holly Weinberg, SUBHASH 04/10/24 0411 Signed By: 04/10/24 0422 04/10/24 0645 [facility]02-18-2025 Evaluation note* Diagnosis Onset Date Resolution Status Admit Date Atrial tachycardia acute 2024 2:27pm Elevated cholesterol acute 2024 2:27pm Hypertension acute March 2:27pm Chronic kidney disease deleted [facility] 2024 2:27pm Acute hypoxic respiratory failure acute April 10 025 1:30am Acute kidney injury superimposed on CKD acute March 1:30am Acute pulmonary edema acute Mar ru2024 1:30am Acute systolic CHF (congesti ve [...] 10, 2024 1:30am Chronic kidney disease deleted [facility] 2024 1:30am [facility] Work Phone: 1(706) 696-644202-18-2025 Evaluation note* Diagnosis Onset Date Resolution Status Admit Date Elevated cholesterol acute 2024 2:27pm Hypertension acute March 2:27pm Atrial tachycardia deleted 2024 2:27pm Chronic kidney disease deleted [facility] 2024 2:27pm Acute kidney injury superimposed on CKD acute March 1:30am CKD (chronic kidney disease) stage 3, GFR 30-59 ml/min acute Februa 2024 1:30am HFrEF (heart failure with reduced ejection fraction) acute Febru chidi 2024 1:30am Hypertension acute March 1:30am NSTEMI (non-ST elevated myocardial infarction) acute April 10, 2024 1:30am Paroxysmal atrial fibrillati on with RVR acute April 10 025 1:30am Acute hypoxic respiratory failure resolved April 10 025 1:30am Acute pulmonary edema resolved Feb ruary 2024 1:30am Acute systolic CHF (congesti ve heart failure) resolved April 10, 025 1:30am CHF (congestive heart failure) resol kay April 10, 2024 1:30am SVT (supraventricular tachycardia) resolved April 10 025 1:30am UTI (urinary tract infection) resolv ed April 10, 2024 1:30am Cardiomyopathy deleted March 232024 1:30am Chronic kidney disease deleted [facility] 2024 1:30am Atrial fibrillation acute April 23, 2024 10:21am Chronic kidney disease acute [facility] 2024 10:21am Elevated cholesterol acute 2024 10:21am HFrEF (heart failure with reduced ejection fraction) acute April 23, 2024 10:21am Hypertension acute April 23 10:21am Ischemic cardiomyopathy acute [facility] 2024 10:21am [facility] Work Phone: 1(638) 375-366402-18-2025 Evaluation note* Diagnosis Onset Date Resolution Status Admit Date Elevated cholesterol acute Febr uary 2024 2:27pm Hypertension acute March 2:27pm Atrial tachycardia deleted 2024 2:27pm Chronic kidney disease deleted [facility] 2024 2:27pm Acute kidney injury superimp osed on CKD acute April 10 025 1:30am CKD (chronic kidney disease) stage 3, GFR 30-59 ml/min acute Februa 2024 1:30am HFrEF (heart failure with re duced ejection fraction) acute March 1:30am Hypertension acute March 1:30am NSTEMI (non-ST elevated myocardial infarction) acute April 10, 2024 1:30am Paroxysmal atrial fibrillati on with RVR acute April 10, 025 1:30am Acute hypoxic respiratory failure re [...] 232024 1:30am Chronic kidney disease deleted Fe [facility]ery 2024 1:30am Atrial fibrillation acute April 23, 2024 10:21am Chronic kidney disease acute [facility] 2024 10:21am Elevated cholesterol acute Jozef h 2024 10:21am HFrEF (heart failure with re duced ejection fraction) acute April 23 10:21am Hypertension acute April 23 10:21am Ischemic cardiomyopathy acute [facility] 2024 10:21am Atrial fibrillation acute April 23, 2024 2:57pm CKD (chronic kidney disease) stage 4, GFR 15-29 ml/min acute April 23, 2024 2:57pm Elevated cholesterol acute Jozef h 2024 2:57pm HFrEF (heart failure with re duced ejection fraction) acute April 23 2:57pm Ischemic cardiomyopathy acute [facility] 2024 2:57pm Secondary hyperparathyroidism acute April 23, 2024 2:57pm [facility] Work Phone: 1(955) 114-405502-18-2025 Evaluation note* Diagnosis Onset Date Resolution Status Admit Date Hypertension acute March 2:27pm Elevated cholesterol resolved Febr uary 2024 2:27pm Atrial tachycardia deleted Februa ry 2024 2:27pm Chronic kidney disease deleted Fe bruary 2024 2:27pm CKD (chronic kidney disease) stage 3, GFR 30-59 ml/min acute Februa ry 2024 1:30am HFrEF (heart failure with re duced ejection fraction) acute March 1:30am Hypertension acute March 1:30am Paroxysmal atrial fibrillati on with RVR acute April 10 025 1:30am Acute hypoxic respiratory failure re solved April 10, 2024 1:30am Acute kidney injury superimp osed on CKD resolved April 10 025 1:30am Acute pulmonary edema resolved Feb ruary 2024 1:30am Acute systolic CHF (congesti ve heart failure) resolved April 10 025 1:30am CHF (congestive heart failure) resol kay April 10, 2024 1:30am NSTEMI (non-ST elevated myocardial infarction) 2024 resolved April 10, 2024 1:30am Cardiomyopathy deleted March 232024 1:30am Chronic kidney disease deleted Fe bruary 2024 1:30am SVT (supraventricular tachycardia) deleted April 10 025 1:30am UTI (urinary tract infection) delete d April 10, 2024 1:30am Atrial fibrillation acute April 23, 2024 10:21am Chronic kidney disease acute [facility] 2024 10:21am HFrEF (heart failure with re duced ejection fraction) acute April 23 10:21am Hypertension acute April 23 10:21am Ischemic cardiomyopathy acute [facility] 2024 10:21am Elevated cholesterol resolved Jozef h 2024 10:21am Atrial fibrillation acute April 23, 2024 2:57pm CKD (chronic kidney disease) stage 4, GFR 15-29 ml/min acute April 23, 2024 2:57pm HFrEF (heart failure with re duced ejection fraction) acute April 23 2:57pm Ischemic cardiomyopathy acute arch 2024 2:57pm Secondary hyperparathyroidism acute April 23, 2024 2:57pm Elevated cholesterol resolved Jozef h 2024 2:57pm Atrial fibrillation acute May 08, 2024 10:20am Chronic kidney disease acute [facility] 2024 10:20am HFrEF (heart failure with re duced ejection fraction) acute May 08 025 10:20am Hypertension acute May 08, 2024 10:20am Ischemic cardiomyopathy acute M arch 2024 10:20am Elevated cholesterol resolved Jozef h 2024 10:20am [facility] Work Phone: 1(902) 151-160202-18-2025 Evaluation note* Diagnosis Onset Date Resolution Status Admit Date Hypertension acute March 2:27pm Elevated cholesterol resolved Febr uary 2024 2:27pm Atrial tachycardia deleted 2024 2:27pm Chronic kidney disease deleted Fe bruary 2024 2:27pm CKD (chronic kidney disease) stage 3, GFR 30-59 ml/min acute 2024 1:30am HFrEF (heart failure with re duced ejection fraction) acute March 1:30am Hypertension acute March 1:30am Paroxysmal atrial fibrillati on with RVR acute April 10 025 1:30am Acute hypoxic respiratory failure re solved April 10, 2024 1:30am Acute kidney injury superimp osed on CKD resolved April 10 025 1:30am Acute pulmonary edema resolved Feb ruary 2024 1:30am Acute systolic CHF (congesti ve heart failure) resolved April 10 025 1:30am CHF (congestive heart failure) resol kay April 10, 2024 1:30am NSTEMI (non-ST elevated myocardial infarction) 2024 resolved April 10, 2024 1:30am Cardiomyopathy deleted March 232024 1:30am Chronic kidney disease deleted Fe brucallery 2024 1:30am SVT (supraventricular tachycardia) deleted April 10 2 025 1:30am UTI (urinary tract infection) delete d April 10, 2024 1:30am Atrial fibrillation acute April 23, 2024 10:21am Chronic kidney disease acute [facility] 2024 10:21am HFrEF (heart failure with re [...] 08, 2024 10:20am Chronic kidney disease acute Ma rc 2024 10:20am HFrEF (heart failure with re duced ejection fraction) acute May 08, 025 10:20am Ischemic cardiomyopathy acute M arch 2024 10:20am Knee pain, bilateral acute Jozef h 2024 10:20am Primary osteoarthritis of kelly th knees acute May 08, 2024 10:20am Atrial fibrillation acute May 23, 2024 12:50pm CKD (chronic kidney disease) stage 4, GFR 15-29 ml/min acute May 23, 2024 12:50pm HFrEF (heart failure with re duced ejection fraction) acute May 23 12:50pm Hyperuricemia acute May 23, 2024 12:50pm Ischemic cardiomyopathy acute A pril 2024 12:50pm Secondary hyperparathyroidism acute May 23, 2024 12:50pm Elevated cholesterol resolved Apri l 2024 12:50pm [facility] Work Phone: 1(164) 529-254202-18-2025 Evaluation note* Diagnosis Onset Date Resolution Status Admit Date Hypertension acute March 2:27pm Elevated cholesterol resolved [email or web address] 2:27pm Atrial tachycardia deleted Februa ry 2024 2:27pm Chronic kidney disease deleted Fe bruary 2024 2:27pm HFrEF (heart failure with re duced ejection fraction) acute March 1:30am Hypertension acute March 1:30am Paroxysmal atrial fibrillati on with RVR acute April 10 2 025 1:30am Acute hypoxic respiratory failure re solved April 10, 2024 1:30am Acute kidney injury superimp osed on CKD resolved April 10 2 025 1:30am Acute pulmonary edema resolved Feb ruary 2024 1:30am Acute systolic CHF (congesti ve heart failure) resolved April 10 025 1:30am CHF (congestive heart failure) resol kay April 10, 2024 1:30am NSTEMI (non-ST elevated myocardial infarction) 2024 resolved April 10, 2024 1:30am Cardiomyopathy deleted March 232024 1:30am Chronic kidney disease deleted Fe bruary 2024 1:30am CKD (chronic kidney disease) stage 3, GFR 30-59 ml/min deleted Februa ry 2024 1:30am SVT (supraventricular tachycardia) deleted April 10 025 1:30am UTI (urinary tract infection) delete d April 10, 2024 1:30am Atrial fibrillation acute April 23, 2024 10:21am Chronic kidney disease acute [facility] 2024 10:21am HFrEF (heart failure with re duced ejection fraction) acute April 23 10:21am Hypertension acute April 23 025 10:21am Ischemic cardiomyopathy acute [facility] 2024 10:21am Elevated cholesterol resolved Jozef h 2024 10:21am Atrial fibrillation acute April 23, 2024 2:57pm CKD (chronic kidney disease) stage 4, GFR 15-29 ml/min acute April 23, 2024 2:57pm HFrEF (heart failure with re duced ejection fraction) acute April 23 2:57pm Ischemic cardiomyopathy acute [facility] 2024 2:57pm Secondary hyperparathyroidism acute April 23, 2024 2:57pm Elevated cholesterol resolved Jozef h 2024 2:57pm Atrial fibrillation acute May 08, 2024 10:20am Chronic kidney disease acute [facility] 2024 10:20am HFrEF (heart failure with re duced ejection fraction) acute May 08 025 10:20am Ischemic cardiomyopathy acute [facility] 2024 10:20am Knee pain, bilateral acute Jozef h 2024 10:20am Primary osteoarthritis of kelly th knees acute May 08, 2024 10:20am Atrial fibrillation acute May 23, 2024 12:50pm CKD (chronic kidney disease) stage 4, GFR 15-29 ml/min acute May 23, 2024 12:50pm HFrEF (heart failure with re duced ejection fraction) acute May 23 12:50pm Hypertensive chronic kidney disease with stage 1 through stage 4 chronic ki acute May 23 12:50pm Hyperuricemia acute May 23, 2024 12:50pm Ischemic cardiomyopathy acute A pril 2024 12:50pm Secondary hyperparathyroidism acute May 23, 2024 12:50pm Elevated cholesterol resolved Apri l 2024 12:50pm [facility] Work Phone: 1(283) 543-963002-18-2025 Evaluation note* Diagnosis Onset Date Resolution Status Admit Date Hypertension acute March 2:27pm Elevated cholesterol resolved Febr uary 2024 2:27pm Atrial tachycardia deleted 2024 2:27pm Chronic kidney disease deleted Fe bruary 2024 2:27pm HFrEF (heart failure with re duced ejection fraction) acute March 1:30am Hypertension acute March 1:30am Paroxysmal atrial fibrillati on with RVR acute April 10 025 1:30am Acute hypoxic respiratory failure re solved April 10, 2024 1:30am Acute kidney injury superimp osed on CKD resolved April 10 025 1:30am Acute pulmonary edema resolved Feb ruary 2024 1:30am Acute systolic CHF (congesti ve heart failure) resolved April 10 025 1:30am CHF (congestive heart failure) resol kay April 10, 2024 1:30am NSTEMI (non-ST elevated myocardial infarction) 2024 resolved April 10, 2024 1:30am Cardiomyopathy deleted March 232024 1:30am Chronic kidney disease deleted Fe bruary 2024 1:30am CKD (chronic kidney disease) stage 3, GFR 30-59 ml/min deleted ua ry 2024 1:30am SVT (supraventricular tachycardia) deleted April 10 025 1:30am UTI (urinary tract infection) delete d April 10, 2024 1:30am Atrial fibrillation acute April 23, 2024 10:21am Chronic kidney disease acute [facility] 2024 10:21am HFrEF (heart failure with re duced ejection fraction) acute April 23 10:21am Hypertension acute April 23, 025 10:21am Ischemic cardiomyopathy acute [facility] 2024 10:21am Elevated cholesterol resolved Jozef h [...] 08, 2024 10:20am Chronic kidney disease acute Ma rch 2024 10:20am HFrEF (heart failure with re duced ejection fraction) acute May 08, 025 10:20am Ischemic cardiomyopathy acute M arch 2024 10:20am Knee pain, bilateral acute Jozef h 2024 10:20am Primary osteoarthritis of kelly th knees acute May 08, 2024 10:20am Atrial fibrillation acute May 23, 2024 12:50pm CKD (chronic kidney disease) stage 4, GFR 15-29 ml/min acute May 23, 2024 12:50pm HFrEF (heart failure with re duced ejection fraction) acute May 23 12:50pm Hypertensive chronic kidney disease with stage 1 through stage 4 chronic ki acute May 23 12:50pm Hyperuricemia acute May 23, 2024 12:50pm Ischemic cardiomyopathy acute A pril 2024 12:50pm Secondary hyperparathyroidism acute May 23, 2024 12:50pm Elevated cholesterol resolved Apri l 2024 12:50pm Chronic kidney disease acute Ma y 2024 2:38pm Shoulder pain, left acute June 242024 2:38pm Strain of left deltoid muscle acute June 24, 2024 2:38pm CKD (chronic kidney disease) stage 4, GFR 15-29 ml/min acute July 012024 2:30pm Hypertensive chronic kidney disease with stage 1 through stage 4 chronic ki acute July 01 2:30pm Hyperuricemia acute July 01, 2 025 2:30pm Secondary hyperparathyroidism acute July 01, 2024 2:30pm [facility] Work Phone: 1(574) 760-733412-22-2023 Evaluation note* Encounter Date Diagnosis Assessment Notes [...] bracing and Tylenol. Avoid squatting or kneeling [employer] Other 12-22-2023 History general Narrative - Reported* [...] History COLONOSCOPY 2010 Hospitalization History SEE SURGICAL [employer] Other 09-18-2023 History general Narrative - Reported* [...] History COLONOSCOPY 2010 Hospitalization History SEE SURGICAL [employer] Other 08-23-2023 History general Narrative - Reported* [...] COLONOSCOPY 2010 Hospitalization History SEE SURGICAL HX [employer] Other 08-15-2023 History general Narrative - Reported* [...] COLONOSCOPY 2010 Hospitalization History SEE SURGICAL HX [employer] Other 08-14-2023 Evaluation note* Encounter Date Diagnosis [...] best 2/3 readings w/ goal < 135-85 [employer] Other 05-30-2023 Evaluation note* Encounter Date Diagnosis [...] q HS for week. No improvement, irrigate [facility] [employer] Other Evaluation [facility]No [facility] [employer] Other Evaluation note* Diagnosis Onset Date Resolution Status Elevated cholesterol acute Hypertension acute Knee pain acute Primary osteoarthritis of left knee acute Primary osteoarthritis of right knee acute [facility] Work Phone: Evaluation note* Diagnosis Onset Date Resolution Status Admit Date Elevated cholesterol acute Febr uary 2024 2:27pm Hypertension acute March 2:27pm Knee pain acute April 09, 2024 2:27pm Primary osteoarthritis of le ft knee acute April 09, 2 025 2:27pm Primary osteoarthritis of ri ght knee acute April 09, 2 025 2:27pm [facility] Work Phone: Evaluation note* Diagnosis [...] unspecified BMI 27.0-27.9,adult documented in this encounter [facility] Work Phone: Evaluation note* Diagnosis Cardiomyopathy, ischemic- Primary Other specified forms of chronic ischemic heart disease High risk medication use Persistent atrial fibrillation (Multi) Atrial fibrillation Mixed hyperlipidemia Essential hypertension Unspecified essential hypertension 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 IV, 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) 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 IV, or unspecified Abnormal stress test Other nonspecific abnormal cardiovascular system function study Anticoagulation monitoring, special range Encounter for long-term (current) use of anticoagulants BMI 26.0-26.9,adult Never smoked tobacco documented in this encounter [facility] Work Phone: History general Narrative [...] COLONOSCOPY 2010 Hospitalization History SEE SURGICAL HX [employer] Other Reason for referral (narrative)No reason for referral [facility] Work Phone: Summary Purpose Family History No Family History [...] 2024 1:30am Acute hypoxic respiratory failure Februa ry 2024 1:30am Acute pulmonary edema April 10 [...] 2024 1:30am Acute hypoxic respiratory failure Februa ry 2024 1:30am Acute pulmonary edema April 10 [...] April 10 1:30am SVT (supraventricular tachycardia) Febru chidi2024 1:30am [...] Elevated cholesterol May 08, 2024 10 :20am Chief Complaint Admit Date bilateral knee cortisone [...] fatigue/test results May 08, 2024 10 :20am 4 WEEK F/U May 23, 2024 12:5 0pm Reason for Visit Admit Date Hypertension April [...] ejecti on fraction) May 08, 2024 10:20am Ischemic cardiomyopathy May 08, 2024 10:20am Knee pain, bilateral May 08, 2024 10 :20am Primary osteoarthritis of both knees Apr 10:20am Atrial fibrillation May 23, 2024 12:5 0pm CKD (chronic kidney disease) stage 4, GF R 15-29 ml/min May 23, 2024 12:50pm HFrEF (heart failure with reduced ejecti on fraction) May 23, 2024 12:50pm Hyperuricemia May 23, 2024 12:5 0pm Ischemic cardiomyopathy May 23, 2024 12:50pm Secondary hyperparathyroidism May 23, 2024 12:50pm Elevated cholesterol May 23, 2024 12: 50pm Chief Complaint Admit Date bilateral knee cortisone [...] fatigue/test results May 08, 2024 10 :20am 4 WEEK F/U May 23, 2024 12:5 0pm Pulled Muscle in L Shoulder June 24 2:38pm Reason for Visit Admit Date Hypertension April 09, 2024 2:27pm Elevated cholesterol April 09, 2024 2:27pm Atrial tachycardia April 09, 2024 2:27pm Chronic kidney disease April 09 2:27pm HFrEF (heart failure with reduced ejecti on fraction) April 10, 2024 1:30am Hypertension April 10, 2024 1:30am Paroxysmal atrial fibrillation with RVR April 10, 2024 1:30am Acute hypoxic respiratory failure Februa ry 2024 [...] 1:30am Chronic kidney disease April 10 1:30am CKD (chronic kidney disease) stage 3, GF R 30-59 ml/min April 10, 2024 1:30am SVT (supraventricular tachycardia) [...] ejecti on fraction) May 08, 2024 10:20am Ischemic cardiomyopathy May 08, 2024 10:20am Knee pain, bilateral May 08, 2024 10 :20am Primary osteoarthritis of both knees Apr 10:20am Atrial fibrillation May 23, 2024 12:5 0pm CKD (chronic kidney disease) stage 4, GF R 15-29 ml/min May 23, 2024 12:50pm HFrEF (heart failure with reduced ejecti on fraction) May 23, 2024 12:50pm Hypertensive chronic kidney disease with stage 1 through stage 4 chronic ki May 23, 2024 12:50pm Hyperuricemia May 23, 2024 12:5 0pm Ischemic cardiomyopathy May 23, 2024 12:50pm Secondary hyperparathyroidism May 23, 2024 12:50pm Elevated cholesterol May 23, 2024 12: 50pm Chief Complaint Admit Date bilateral knee cortisone [...] fatigue/test results May 08, 2024 10 :20am 4 WEEK F/U May 23, 2024 12:5 0pm Pulled Muscle in L Shoulder June 24 2:38pm renal 6 week f/u July 01, 2024 2:30p m Reason for Visit Admit Date Hypertension April 09, 2024 2:27pm Elevated cholesterol April 09, 2024 2:27pm Atrial tachycardia April 09, 2024 2:27pm Chronic kidney disease April 09 2:27pm HFrEF (heart failure with reduced ejecti on [...] 1:30am Chronic kidney disease April 10 1:30am CKD (chronic kidney disease) stage 3, GF R 30-59 ml/min April 10, 2024 1:30am SVT (supraventricular tachycardia) 2024 1:30am UTI (urinary tract infection) March [...] ejecti on fraction) May 08, 2024 10:20am Ischemic cardiomyopathy May 08, 2024 10:20am Knee pain, bilateral May 08, 2024 10 :20am Primary osteoarthritis of both knees Apr 10:20am Atrial fibrillation May 23, 2024 12:5 0pm CKD (chronic kidney disease) stage 4, GF R 15-29 ml/min May 23, 2024 12:50pm HFrEF (heart failure with reduced ejecti on fraction) May 23, 2024 12:50pm Hypertensive chronic kidney disease with stage 1 through stage 4 chronic ki May 23, 2024 12:50pm Hyperuricemia May 23, 2024 12:5 0pm Ischemic cardiomyopathy May 23, 2024 12:50pm Secondary hyperparathyroidism May 23, 2024 12:50pm Elevated cholesterol May 23, 2024 12: 50pm Chronic kidney disease June 24, 2024 2:3 8pm Shoulder pain, left June 24, 2024 2:38pm Strain of left deltoid muscle June 24, 2 025 2:38pm CKD (chronic kidney disease) stage 4, GF R 15-29 ml/min July 01, 2024 2:30pm Hypertensive chronic kidney disease with stage 1 through stage 4 chronic ki July 01, 2024 2:30pm Hyperuricemia July 01, 2024 2:30p m Secondary hyperparathyroidism July 01, 2024 2:30pm Chief Complaint Admit Date Pulled Muscle in L Shoulder June 24 2:38pm renal 6 week f/u July 01, 2024 2:30p m 3 month f/u August 06, 2024 10:3 3am right ear irrigation September 18, 2024 2:3 5pm Reason for Visit Admit Date Chronic kidney disease June 24, 2024 2:3 8pm Shoulder pain, left June 24, 2024 2:38pm Strain of left deltoid muscle June 24, 2 025 2:38pm Asymptomatic bacteriuria July 01, 2024 2:30pm Atrial fibrillation July 01, 2024 2:30p m CKD (chronic kidney disease) stage 4, 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-29 ml/min July 01, 2024 2:30pm HFrEF (heart failure with reduced ejecti on fraction) July 01, 2024 2:30pm Hypertensive chronic kidney disease with stage 1 through stage 4 chronic ki July 01, 2024 2:30pm Hyperuricemia July 01, 2024 2:30p m Ischemic cardiomyopathy July 01, 2024 2 :30pm Secondary hyperparathyroidism July 01, 2024 2:30pm Elevated cholesterol July 01, 2024 2:30 pm Atrial fibrillation August 06, 2024 10:3 3am Cerumen impaction August 06, 2024 10:3 3am Chronic kidney disease August 06, 2024 1 0:33am HFrEF (heart failure with reduced ejecti on fraction) August 06, 2024 10:33am Hypertension August 06, 2024 10:3 3am Ischemic cardiomyopathy August 06, 2024 10:33am Primary osteoarthritis of both knees Jul 10:33am Elevated cholesterol August 06, 2024 10: 33am Chief Complaint Admit Date renal 6 week f/u July 01, 2024 2:30p m 3 month f/u August 06, 2024 10:3 3am right ear irrigation September 18, 2024 2:3 5pm renal 3 month f/u September 23, 2024 1:5 9pm Reason for Visit Admit Date Asymptomatic bacteriuria July 01, 2024 2:30pm Atrial fibrillation July 01, 2024 2:30p m CKD (chronic kidney disease) stage 4, GF R 15-29 ml/min July 01, 2024 2:30pm HFrEF (heart failure with reduced ejecti on fraction) July 01, 2024 2:30pm Hypertensive chronic kidney disease with stage 1 through stage 4 chronic ki July 01, 2024 2:30pm Hyperuricemia July 01, 2024 2:30p m Ischemic cardiomyopathy July 01, 2024 2 :30pm Secondary hyperparathyroidism July 01, 2024 2:30pm Elevated cholesterol July 01, 2024 2:30 pm Atrial fibrillation August 06, 2024 10:3 3am Cerumen impaction August 06, 2024 10:3 3am Chronic kidney disease August 06, 2024 1 0:33am HFrEF (heart failure with reduced ejecti on fraction) August 06, 2024 10:33am Hypertension August 06, 2024 10:3 3am Ischemic cardiomyopathy August 06, 2024 10:33am Primary osteoarthritis of both knees Marco 2024 10:33am Elevated cholesterol August 06, 2024 10: 33am Cerumen impaction September 18, 2024 2:35 pm HFrEF (heart failure with reduced ejecti on fraction) September 18, 2024 2:35pm Decreased hearing of both ears August 2:35pm Asymptomatic bacteriuria September 23 1:59pm Atrial fibrillation September 23, 2024 1:5 9pm CKD (chronic kidney disease) stage 4, GF R 15-29 ml/min September 23, 2024 1:59pm HFrEF (heart failure with reduced ejecti on fraction) September 23, 2024 1:59pm Hypertensive chronic kidney disease with stage 1 through stage 4 chronic ki September 23, 2024 1:59pm Hyperuricemia September 23, 2024 1:5 9pm Ischemic cardiomyopathy September 23, 2024 1:59pm Secondary hyperparathyroidism September 1:59pm Elevated cholesterol September 23, 2024 1: 59pm Chief Complaint Admit Date renal 6 week f/u July 01, 2024 2:30p m 3 month f/u August 06, 2024 10:3 3am right ear irrigation September 18, 2024 2:3 5pm renal 3 month f/u September 23, 2024 1:5 9pm R82.81 D64.9 N25.81 N18.4 September 23 2:59pm Reason for Visit Admit Date Asymptomatic bacteriuria July 01, 2024 2:30pm Atrial fibrillation July 01, 2024 2:30p m CKD (chronic kidney disease) stage 4, GF R 15-29 ml/min July 01, 2024 2:30pm HFrEF (heart failure with reduced ejecti on fraction) July 01, 2024 2:30pm Hypertensive chronic kidney disease with stage 1 through stage 4 chronic ki July 01, 2024 2:30pm Hyperuricemia July 01, 2024 2:30p m Ischemic cardiomyopathy July 01, 2024 2 :30pm Secondary hyperparathyroidism July 01, 2024 2:30pm Elevated cholesterol July 01, 2024 2:30 pm Atrial fibrillation August 06, 2024 10:3 3am Cerumen impaction August 06, 2024 10:3 3am Chronic kidney disease August 06, 2024 1 0:33am HFrEF (heart failure with reduced ejecti on fraction) August 06, 2024 10:33am Hypertension August 06, 2024 10:3 3am Ischemic cardiomyopathy August 06, 2024 10:33am Primary osteoarthritis of both knees Marco 2024 10:33am Elevated cholesterol August 06, 2024 10: 33am Cerumen impaction September 18, 2024 2:35 pm HFrEF (heart failure with reduced ejecti on fraction) September 18, 2024 2:35pm Decreased hearing of both ears August 2:35pm Anemia September 23, 2024 1:5 9pm Atrial fibrillation September 23, 2024 1:5 9pm CKD (chronic kidney disease) stage 4, GF R 15-29 ml/min September 23, 2024 1:59pm HFrEF (heart failure with reduced ejecti on fraction) September 23, 2024 1:59pm Hypertensive chronic kidney disease with stage 1 through stage 4 chronic ki September 23, 2024 1:59pm Hyperuricemia September 23, 2024 1:5 9pm Ischemic cardiomyopathy September 23, 2024 1:59pm Pyuria September 23, 2024 1:5 9pm Secondary hyperparathyroidism September 1:59pm Elevated cholesterol September 23, 2024 1: 59pm Chief Complaint Admit Date renal 6 week f/u July 01, 2024 2:30p m 3 month f/u August 06, 2024 10:3 3am right ear irrigation September 18, 2024 2:3 5pm renal 3 month f/u September 23, 2024 1:5 9pm R82.81 D64.9 N25.81 N18.4 September 23 2:59pm 1 week f/u: Ear Irrigation September 24 025 11:44am Reason for Visit Admit Date Asymptomatic bacteriuria July 01, 2024 2:30pm Atrial fibrillation July 01, 2024 2:30p m CKD (chronic kidney disease) stage 4, GF R 15-29 ml/min July 01, 2024 2:30pm HFrEF (heart failure with reduced ejecti on fraction) July 01, 2024 2:30pm Hypertensive chronic kidney disease with stage 1 through stage 4 chronic ki July 01, 2024 2:30pm Hyperuricemia July 01, 2024 2:30p m Ischemic cardiomyopathy July 01, 2024 2 :30pm Secondary hyperparathyroidism July 01, 2024 2:30pm Elevated cholesterol July 01, 2024 2:30 pm Atrial fibrillation August 06, 2024 10:3 3am Cerumen impaction August 06, 2024 10:3 3am Chronic kidney disease August 06, 2024 1 0:33am HFrEF (heart failure with reduced ejecti on fraction) August 06, 2024 10:33am Hypertension August 06, 2024 10:3 3am Ischemic cardiomyopathy August 06, 2024 10:33am Primary osteoarthritis of both knees Marco 2024 10:33am Elevated cholesterol August 06, 2024 10: 33am Cerumen impaction September 18, 2024 2:35 pm HFrEF (heart failure with reduced ejecti on fraction) September 18, 2024 2:35pm Decreased hearing of both ears August 2:35pm Anemia September 23, 2024 1:5 9pm Atrial fibrillation September 23, 2024 1:5 9pm CKD (chronic kidney disease) stage 4, GF R 15-29 ml/min September 23, 2024 1:59pm HFrEF (heart failure with reduced ejecti on fraction) September 23, 2024 1:59pm Hypertensive chronic kidney disease with stage 1 through stage 4 chronic ki September 23, 2024 1:59pm Hyperuricemia September 23, 2024 1:5 9pm Ischemic cardiomyopathy September 23, 2024 1:59pm Pyuria September 23, 2024 1:5 9pm Secondary hyperparathyroidism September 1:59pm Elevated cholesterol September 23, 2024 1: 59pm Cerumen impaction September 24, 2024 11: 44am HFrEF (heart failure with reduced ejecti on fraction) September 24, 2024 11:44am Decreased hearing of both ears September 11:44am Chief Complaint Admit Date 3 month f/u August 06, 2024 10:3 3am right ear irrigation September 18, 2024 2:3 5pm renal 3 month f/u September 23, 2024 1:5 9pm R82.81 D64.9 N25.81 N18.4 September 23 2:59pm 1 week f/u: Ear Irrigation September 24 11:44am bilateral foot pain/possible gout 2024 3:05pm Reason for Visit Admit Date Atrial fibrillation August 06, 2024 10:3 3am Cerumen impaction August 06, 2024 10:3 3am Chronic kidney disease August 06, 2024 1 0:33am HFrEF (heart failure with reduced ejecti on fraction) August 06, 2024 10:33am Hypertension August 06, 2024 10:3 3am Ischemic cardiomyopathy August 06, 2024 10:33am Primary osteoarthritis of both knees Jul 10:33am Elevated cholesterol August 06, 2024 10: 33am Cerumen impaction September 18, 2024 2:35 pm HFrEF (heart failure with reduced ejecti on fraction) September 18, 2024 2:35pm Decreased hearing of both ears August 2:35pm Anemia September 23, 2024 1:5 9pm Atrial fibrillation September 23, 2024 1:5 9pm CKD (chronic kidney disease) stage 4, GF R 15-29 ml/min September 23, 2024 1:59pm HFrEF (heart failure with reduced ejecti on fraction) September 23, 2024 1:59pm Hypertensive chronic kidney disease with stage 1 through stage 4 chronic ki September 23, 2024 1:59pm Hyperuricemia September 23, 2024 1:5 9pm Ischemic cardiomyopathy September 23, 2024 1:59pm Pyuria September 23, 2024 1:5 9pm Secondary hyperparathyroidism September 1:59pm Elevated cholesterol September 23, 2024 1: 59pm Cerumen impaction September 24, 2024 11: 44am HFrEF (heart failure with reduced ejecti on fraction) September 24, 2024 11:44am Decreased hearing of both ears September 11:44am Chief Complaint Admit Date right ear irrigation September 18, 2024 2:3 5pm renal 3 month f/u September 23, 2024 1:5 9pm R82.81 D64.9 N25.81 N18.4 September 23 2:59pm 1 week f/u: Ear Irrigation September 24 2 025 11:44am bilateral foot pain/possible gout Sept2024 3:05pm z79.899 i48.19 November 12, 2024 10:05am Reason for Visit Admit Date Cerumen impaction September 18, 2024 2:35 pm HFrEF (heart failure with reduced ejecti on fraction) September 18, 2024 2:35pm Decreased hearing of both ears August 2:35pm Anemia September 23, 2024 1:5 9pm Atrial fibrillation September 23, 2024 1:5 9pm CKD (chronic kidney disease) stage 4, GF R 15-29 ml/min September 23, 2024 1:59pm HFrEF (heart failure with reduced ejecti on fraction) September 23, 2024 1:59pm Hypertensive chronic kidney disease with stage 1 through stage 4 chronic ki September 23, 2024 1:59pm Hyperuricemia September 23, 2024 1:5 9pm Ischemic cardiomyopathy September 23, 2024 1:59pm Pyuria September 23, 2024 1:5 9pm Secondary hyperparathyroidism September 1:59pm Elevated cholesterol September 23, 2024 1: 59pm Cerumen impaction September 24, 2024 11: 44am HFrEF (heart failure with reduced ejecti on fraction) September 24, 2024 11:44am Decreased hearing of both ears September 11:44am Chronic kidney disease October 23 3:05pm Degenerative arthritis of left foot Oct emb2024 3:05pm Degenerative arthritis of right foot Oct 3:05pm Foot pain, bilateral October 23, 2024 3:05pm Ischemic cardiomyopathy October 23 3:05pm Additional Source Comments (unrecognized sect ion and content) No Status Records FoundNo Status Records Found INFORMATION SOURCE (unrecogn ized section and content) DATE CREATED AUTHOR 12/13/2021 [facility] DATE CREATED AUTHOR AUTHOR'S ORGANIZ ATION 11/13/2024 [facility] REASON FOR VISIT (unrecogniz ed section and content) Reason Comments Hospital Follow[place] [facility] [place]18 Specialty Diagnoses / Procedures Referred By Contac t Referred To Contact Diagnoses Persistent atrial fibrillation (Multi) Procedures ECG 12 Lead Mely Ken MD [address] [facility] 2, [address] [address] Phone: tel: fax: Referral ID Status Reason Start Date Expiration Date V isits Requested Visits Authorized [id number] Authorized 04/29/2024 04/29/2025 1 1 Reason Comments Follow-up 6 months Cardiomyopa thy, ischemic Specialty Diagnoses / Procedures Referred By Contac t Referred To Contact Cardiology Diagnoses Cardiomyopathy, ischemic Procedures Follow Up In Cardiology Mely Ken MD 703 [facility] 2, [address] [address] Phone: tel: fax: Mely Ken MD [address]03 [facility] 2, [address] [address] Phone: tel: fax: Referral ID Status Reason Start Date Expiration Date V isits Requested Visits Authorized [id number] Authorized 04/29/2024 04/29/2025 1 1 Care Teams (unrecognized sec tion and content) Team Status: Active Member Role Status Dates Ranjan Andersen DO Primary Care Provider Active Team Status: Active Member Role Status Dates Ranjan Andersen DO Primary Care Provider Active Start: September 18, 2024 Tobi Monroy MD Attending Provider Active Start : September 18, 2024 Team Status: Inactive Member Role Status Dates Ranjan Andersen DO Primary Care Provider Active Start: September 18, 2024 End: September 18, 2024 Ranjan Andersen DO Attending Provider Active Sta rt: September 18, 2024 End: September 18, 2024 Team Status: Inactive Member Role Status Dates Ranjan Andersen DO Primary Care Provider Active Start: September 23, 2024 End: September 23, 2024 Tobi Monroy MD Attending Provider Active Start : September 23, 2024 End: September 23, 2024 Team Status: Inactive Member Role Status Dates Ranjan Andersen DO Primary Care Provider Active Start: September 24, 2024 End: September 24, 2024 Ranjan Andersen DO Attending Provider Active Sta rt: September 24, 2024 End: September 24, 2024 Team Status: Inactive Member Role Status Dates Ranjan Andersen DO Primary Care Provider Active Start: October 23, 2024 End: October 23, 2024 Ranjan Andersen DO Attending Provider Active Sta rt: October 23, 2024 End: October 23, 2024 Team Status: Active Member Role Status Yohana Andersen DO Primary Care Provider Active Start: November 12, 2024 Mely Ken MD Other Provider Active St art: November 12, 2024 Myke Rojo MD Attending Provider Active Start: November 12, 2024 Team Status: Inactive Member Role Status Yohana Andersen DO Primary Care Provider Active Start: July 01, 2024 End: July 01, 2024 Tobi Monroy MD Attending Provider Active Start : July 01, 2024 End: July 01, 2024 Team Status: Inactive Member Role Status Yohana Andersen DO Primary Care Provider Active Start: August 06, 2024 End: August 06, 2024 Ranjan Andersen DO Attending Provider Active Sta rt: August 06, 2024 End: August 06, 2024 Team Status: Active Member Role Status Yohana Andersen DO Primary Care Provider Active Start: June 24, 2024 Tobi Monroy MD Attending Provider Active Start : June 24, 2024 Team Status: Inactive Member Role Status Yohana Andersen DO Primary Care Provider Active Start: June 24, 2024 End: June 24, 2024 Ranjan Andersen DO Attending Provider Active Sta rt: June 24, 2024 End: June 24, 2024 Team Status: Inactive Member Role Status Yohana Andersen DO Primary Care Provide r, Attending Provider Active Start: June 27, 2023 End: June 27, 2023 Team Status: Inactive Member Role Status Yohana Andersen DO Primary Care Provide r, Attending Provider Active Start: November 14, 2023 End: November 14, 2023 Team Status: Inactive Member Role Status Yohana Andersen DO Primary Care Provide r, Attending Provider Active Start: April 09, 2024 End: April 09, 2024 Team Status: Inactive Member Role Status Yohana Andersen DO Primary Care Provider Active Start: April [...] 2024 End: April 18, 2024 Susana Velarde LONG TERM CARE PHLEBOTOMIST-BC Other Provider Active Sta rt: April 10, 2024 End: April 18, 2024 Felicia Aguilar MD Other Provider Active Start: 2024 End: April 18, 2024 JEFFERY Gómez Other Provider Active Start: April 10, 2024 End: April 18, 2024 Tobi Monroy MD Other Provider Active Start: 2024 End: April 18, 2024 Noel Lilly MD Other Provider Active Start: eb2024 End: April 18, 2024 Gin Conrad MD [...] Status: Active Member Role Status Dates Ranjan Andersen DO Primary Care Provider Active Start: April [...] Provider Active Start: ebruary 2024 Susana Velarde [facility]- Other Provider Active Sta rt: April 12, 2024 Felicia Aguilar MD Other Provider Active Start: ebruary 2024 JEFFREY Gómez Other Provider Active Start: April 12, 2024 Tobi Monroy MD Attending Provider, Other Provider Active Start: April 12, 2024 Noel Lilly MD Other Provider Active Start: ebruary 2024 Team Status: Active Member Role Status Dates Ranjan Andersen DO Primary Care Provider Active Start: April [...] Provider Active Start: ebruary 2024 Susana Velarde , LONG TERM CARE PHLEBOTOMIST-BC Other Provider Active Sta rt: April 13, 2024 Felicia Aguilar MD Other Provider Active Start: ebruary 2024 Tavia Hernandez NP-C Other Provider Active Start: April 13, 2024 Tobi Monroy MD Other Provider Active Start: bruary 2024 Noel Lilly MD Other Provider Active Start: ebruary 2024 Bubba Jessica MD Attending Provider Activ e Start: April 13, 2024 Team Status: Active Member Role Status Dates Ranjan Andersen DO Primary Care Provider Active Start: April [...] Castañeda MD Other Provider Active Start: 2024 Susana Velarde , LONG TERM CARE PHLEBOTOMIST-BC Other Provider Active Sta rt: April 16, 2024 Felicia Aguilar MD Other Provider Active Start: 2024 CHRIST GómezC Other Provider Active Start: April 16, 2024 Tobi Monroy MD Other Provider Active Start: 2024 Noel Lilly MD Other Provider Active Start: 2024 Gin Conrad MD Other Provider Active Start: 2024 Luis Patel MD Attending Provider, Other Provider Active Start: April 16, 2024 Cathleen Kumari APRN Other Provider Active St art: April 16, 2024 Colt Curran Jr, DO Other Provider Active S tart: April 16, 2024 David Inman MD Other Provider Active Start: April 16, 2024 Team Status: Active Member Role Status Dates Ranjan Andersen DO Primary Care Provider Active Start: April 22, 2024 Charis Parker CMA Attending Provider Active Start: April 22, 2024 Team Status: Inactive Member Role Status Dates Ranjan Andersen DO Primary Care Provide r, Attending Provider Active Start: April 23, 2024 End: April 23, 2024 Team Status: Active Member Role Status Dates Ranjan Andersen DO Primary Care Provide r, Attending Provider Active Start: April 10, 2024 Team Status: Inactive Member Role Status Dates Ranjan Andersen DO Primary Care Provider Active Start: April 23, 2024 End: April 23, 2024 Tobi Monroy MD Attending Provider Active Start : April 23, 2024 End: April 23, 2024 Fire Information Officer Relationship Specialty Start Date End Date Ranjan Andersen DO [facility] [place] [address] PCP - General Internal Medicine 04/16/24 Echo Regalado, pig machine crane operatorDirector Of Software Development 04/19/24 Team Status: Active Member Role Status Dates Ranjan Andersen DO Primary Care Provide r, Attending Provider Active Start: May 07, 2024 Team Status: Inactive Member Role Status Dates Ranjan Andersen DO Primary Care Provide r, Attending Provider Active Start: May 08, 2024 End: May 08, 2024 Team Status: Active Member Role Status Ranjan Nathaly Primary Care Provider Active Start: May 13, 2024 Tobi Monroy MD Attending Provider Active Start : May 13, 2024 Team Status: Inactive Member Role Status Dates Ranjan Nathaly Primary Care Provider Active Start: May 23, 2024 End: May 23, 2024 Tobi Monroy MD Attending Provider Active Start : May 23, 2024 End: May 23, 2024 Team Status: Inactive Member Role Status Dates Ranjan Andersen DO Primary Care Provide r, Attending Provider Active Start: June 24, 2024 End: June 24, 2024 Fire Information Officer Relationship Specialty Start Date End Date NathalyRanjan DO [facility] [address] [place] [place] [address] PCP - General Internal Medicine 04/16/24 Goals (unrecognized section and content) Goals may [...] BE BASED ON THE PRIMARY CLINICAL RECORDS. [employer] provides no warranty or guarantee of the accuracy or completeness of information in this document.
[2024-11-25 08:55] LABS: Hematocrit 42.1 % (42.0-54.0); Hemoglobin 14.3 g/dL (14.0-18.0); Mean Corpuscular HGB Conc 34.0 g/dL (29.9-35.2); Mean Corpuscular Hemoglobin 30.5 pg (25.9-34.0); Mean Corpuscular Volume 89.8 fL (80.0-94.0); Platelet Count 195 10^3/uL (150-450); Red Blood Count 4.69 10^6/uL (4.70-6.10); White Blood Count 6.8 10^3/uL (4.0-11.0)
[2024-11-25 10:10] LABS: Albumin Level 3.5 g/dL (3.4-5.0); Anion Gap 8.3; Blood Urea Nitrogen 44.0 mg/dL (7.0-18.0); Calcium 8.8 mg/dL (8.5-10.1); Carbon Dioxide 30.4 mmol/L (21.0-32.0); Chloride 104 mmol/L (98-107); Estimated GFR (African America 21 (>=60 mL/min/1.73m^2); Estimated GFR (Non-African Ame 17 (>=60 mL/min/1.73m^2); Glucose 132 mg/dL (74-106); Magnesium 2.3 mg/dL (1.8-2.4); Potassium 3.7 mmol/L (3.5-5.1); Sodium 139 mmol/L (136-145); Uric Acid 14.0 mg/dL (3.5-7.2)
[2024-11-25 10:13] LABS: Iron 68.0 ug/dL (65.0-175.0); Percent Iron Saturation 25.5 %; Total Iron Binding Capacity 267.0 ug/dL (250.0-450.0)
[2024-11-25 10:40] LABS: Protein Creatinine Ratio Urine 0.33; Total Protein Urine Random 24.4 mg/dL (<=11.9)
[2024-11-25 14:37] LABS: Ferritin 162.0 ng/mL (26.0-388.0)
== END 2024-11-25 08:18 | disposition home or self-care (01) ==
LOC: LAB 08:19
PROVIDERS: PCP Internal Medicine; Visit Provider Internal Medicine
DX: D64.9 Anemia, unspecified (principal); N18.4 Chronic kidney disease, stage 4 (severe); N25.81 Secondary hyperparathyroidism of renal origin
CPT/HCPCS: 36415; 80069; 82306; 82570; 82728; 83540; 83550; 83735; 83970; 84156; 84550; 85027

== ENCOUNTER 2025-01-03 08:15 | Emergency (ER) | payer MEDICARE, OTHER, SELFPAY ==
[2025-01-03 08:19] VITALS: BP 140/91; PULSE 78; TEMP 36.9; O2SAT 97; BMI 27.0
[2025-01-03] MEDS: OXYMETAZOLINE HCL 0.05% NASAL SPRAY 2 SPRAY NS (08:29)
--- OUTSIDE RECORDS SUMMARY | 2025-01-03 09:02 | XMS_ITS | Clinical Summary ---
Author Organization [facility] Address [address] [place] [address] Phone Care Team Providers Care Cylinder Handler Name Role Phone Ranjan Lomas Primary Care Provider [phone] Allergies No known active allergies Medications MedicationSigDispense QuantityRefillsLast FilledStart DateEnd DateStatus atorvastatin (Lipitor) 10 mg tablet Take 1 tablet (10 mg) by mouth once daily.Active potassium chloride CR 20 mEq ER tablet Take 1 tablet (20 mEq) by mouth once daily. Do not crush or chew.Active hydrALAZINE (Apresoline) 25 mg tablet Take 1 tablet (25 mg) by mouth 2 times a day.Active furosemide (Lasix) 40 mg tablet Take by mouth 2 times daily (morning and late afternoon).Active melatonin 5 mg tablet Take 1 tablet (5 mg) by mouth as needed at bedtime for sleep.Active multivitamin tablet Take 1 tablet by mouth once daily.Active apixaban (Eliquis) 2.5 mg tablet Indications:Persistent atrial fibrillation (Multi),Anticoagulation monitoring, special rangeTake 1 tablet (2.5 mg) by mouth 2 times a day. 180 tablet ctive metoprolol succinate XL (Toprol-XL) 50 mg 24 hr tablet Indications:Persistent atrial fibrillation (Multi),Essential hypertension, Cardiomyopathy, ischemicTake 1 tablet (50 mg) by mouth 2 times a day. 180 tablet ctive isosorbide mononitrate ER (Imdur) 30 mg 24 hr tablet Indications:Persistent atrial fibrillation (Multi),Essential hypertension, Cardiomyopathy, ischemicTake 1 tablet (30 mg) by mouth once daily. 90 tablet ctive spironolactone (Aldactone) 25 mg tablet Indications:Persistent atrial fibrillation (Multi),Essential hypertension, Cardiomyopathy, ischemicTake 0.5 tablets (12.5 mg) by mouth once daily. 45 tablet ctive aspirin 81 mg EC tablet Indications:Persistent atrial fibrillation (Multi),Cardiomyopathy, ischemic, Mixed hyperlipidemiaTake 1 tablet (81 mg) by mouth once daily. 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)04/29/2024High risk medication use04/29/2024 Anticoagulation monitoring, special range04/29/2024MI 26.0-26.9,adult04/29/2024 Resolved Problems ProblemNoted DateDiagnosed DateResolved DhvrBbxuxrqhgey79 Encounters DateTypeDepartmentCare CamrHcmzhbdrqty90/23/2025Results Follow-Up [address] [address] Brletic, Porsha B, CAUL FAT PULLER NON- HIE Basic Metabolic Panel, NON- HIE Alanine Aminotransferase, NON- HIE Thyroid Stimulating Pceumty2311/12/2024Orders Only [facility] [address] [place] [address] Mely Ken MD 10/30/2024 2:00 PM EDTOffice Visit [address] [address] Mely Ken MD Cardiomyopathy, ischemic (Primary Dx); High risk medication use; Persistent atrial fibrillation (Multi); Mixed hyperlipidemia; Essential hypertension; 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 IV, 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); Abnormal stress test; Anticoagulation monitoring, special range; BMI 26.0-26.9,adult; Never smoked tobacco Discharge Disposition: Home10/30/2024Travelfrom Last 3 Months Family History Medical HistoryRelationNameCommentsDiabetesBrotherAortic aneurysmFatherColon cancerMotherheart problemMotherRelationNameStatusCommentsBrotherFatherMother Social History Tobacco UseTypesPacks/DayYears UsedDateSmoking Tobacco: NeverSmokeless Tobacco: Never Tobacco Cessation:Counseling Given: Not Answered Alcohol UseStandard Drinks/WeekCommentsNot Currently0 (1 standard drink = 0.6 oz pure alcohol)maybe once monthlySex and Gender InformationValueDate RecordedSex Assigned at BirthNot on fileLegal OywRsbo4504/10/2024 8:52 AM ESTGender Identity Not on fileSexual OrientationNot on file Last Filed Vital Signs Vital SignReadingTime TakenCommentsBlood Jrywsitc774/72010/30/2024 2:03 PM EDT Vgrhw453510/30/2024 2:03 PM EDTTemperature--Respiratory Rate--Oxygen Saturation-- Inhaled Oxygen Concentration--Dscaid86.2 kg (216 lb 9.6 oz)10/30/2024 2:03 PM XSGMsafht237 cm (6' 4 )10/30/2024 2:03 PM EDTBody Mass Index26.3709 2:03 PM EDT Plan of Treatment DateTypeDepartmentCare Team (Latest Contact Info)Cjazaoyugfi00/23/2026 3:40 PM EDTOffice Visit [facility] [address] [address] Mely Ken MD 703 [facility] 2, [facility] [address] [place] [address] Health MaintenanceDue DateLast DoneCommentsCreatinine Level1944Lipid Panel 1944Medicare Annual Wellness Visit (AWV)4Potassium Level 1944TSH Level4Diabetes Tczhntbff04/21/1962CKD: Urine Protein Qdzrloyor40/21/1963Pneumococcal Vaccine (1 of 2 - PCV)01/10/1963Zoster Vaccines (1 of 2)01/10/1994RSV High Risk: (Elderly (60+) or Population) (1 - 1- dose 75+ series)01/10/2019Influenza Vaccine (#1)5COVID-19 Vaccine (3 - season)/, 04/29/20206839Mlwanvvicjmepv97/19/2026 04/10/2024DTaP/Tdap/Td Vaccines (2 - Tdap)HIB VaccinesAged OutNo longer eligible based on patient's age to complete this topicHPV Vaccines Aged OutNo longer eligible based on patient's age to complete this topic Hepatitis A VaccinesAged OutNo longer eligible based on patient's age to complete this topicHepatitis B VaccinesAged OutNo longer eligible based on patient's age to complete this topicIPV VaccinesAged OutNo longer eligible based on patient's age to complete this topicMeningococcal VaccineAged OutNo longer eligible based on patient's age to complete this topicRotavirus VaccinesAged Out No longer eligible based on patient's age to complete this topic Procedures Procedure NamePriorityDate/TimeAssociated DiagnosisCommentsXR CHEST 2 VIEWS 11/12/2024 4:16 PM EDT NON-[facility] HIE THYROID STIMULATING WBFZAWDYhtgtjv91/23/2025 11:05 AM EDT NON-[facility] HIE ALANINE DNVPXBSCEXKUHPJZQicblcq40/23/2025 11:05 AM EDT NON-[facility] HIE BASIC METABOLIC OGBFYEqxbvlw69/23/2025 11:05 AM EDT ECG 12-EHAXBhhpozh38/10/2025 2:00 PM EDT Persistent atrial fibrillation (Multi) VCFTLOHYCINDZX28/19/2025 from Last 3 Months or Most Recently Relevant to Health Maintenance Results * XR chest 2 views (11/12/2024 4:16 PM EDT)Anatomical RegionLateralityModality Thoracic, ChestRadiographic ImagingSpecimen (Source)Anatomical Location / LateralityCollection Method / VolumeCollection TimeReceived Time11/12/2024 4:16 PM EDT Narrative 11/12/2024 4:19 PM EDT [facility] ?[facility] [address] [place] ?[address] ? [place] [address] ?XRay Report ? Signed ? Patient: Corwin Muller ?MR#: [id number] ?? [id number] ? : 1945 ?Acct:[id number] ? Age/Sex: 79 / M ?ADM Date: 11/12/24 ? Loc: RT ?Room: ?Type: REG CLI ?? Attending Dr: Mely Ken MD ?? Copies to: Mely Ken MD ? Ordering Provider: Mely Ken MD ?? Date of Service: 11/12/24 ?? XR/XR chest 2V*: Z79.899, I48.19 ? Chest 2 views ? CLINICAL HISTORY: Long-term medication use. ? COMPARISON: Chest 04/10/2024 ? FINDINGS: ? Heart normal in size. ??Lungs are clear. ??No free air. ??Degenerative change involving the thoracic spine. ? XR/XR chest 2V* ?? IMPRESSION: ? NO ACUTE CARDIOPULMONARY ABNORMALITY. ? Impression dictated by: Luis Vidal Jr., D.ONathaniel ??11/12/2024 4:17 PM ? Dictation Location: RADIO-PC-27 ? Transcribed By: ? PWS ?11/12/24 1617 ? Dictated By: ?Luis Vidal Jr, DO ?11/12/24 1616 ? Signed By: <Electronically signed by Luis Vidal Jr, DO in OV> ?11/12/241616 Authorizing ProviderResult TypeResult StatusMourha Suellen ANGUIANOIMG XR PROCEDURESFinal Result * (ABNORMAL) [facility] Basic Metabolic Panel (11/12/2024 11:05 AM EDT)Component ValueRef RangeTest MethodAnalysis TimePerformed AtPathologist SignatureNONGILA REGIONAL MEDICAL CENTERE Emcjdce7216 - 100 mg/dLSalem Regional Medical Center CtrComment:Random Glucose Reference Range is dependent on time and content of last meal. Glucose of more than 200 mg/dL in a nonstressed, ambulatory subject supports the diagnosis of Diabetes Mellitus. ADA recommended reference rangePARKVIEW LAGRANGE HOSPITALE Blood Urea Mogiaopc94(H)7 - 25 mg/dLGrand Lake Joint Township District Memorial HospitalE Creatinine2.99(H)0.70 - 1.30 mg/dLGrand Lake Joint Township District Memorial HospitalE ESTIMATED GFR20.441[facility] Yspieb184954 - 145 mmol/LFAvita Health SystemE Potassium3.73.5 - 5.1 mmol/L [facility] Kajaxkrn90512 - 107 mmol/LFAvita Health SystemE Carbon Xswapyf66.2(H)21.0 - 31.0 mmol/L [facility] Anion Gap10.56.0 - 15.0[facility] CtrNON- HIE Calcium9.18.6 - 10.3 mg/dLSalem Regional Medical Center CtrSpecimen (Source)Anatomical Location / LateralityCollection Method / VolumeCollection TimeReceived TimeOKLAHOMA HOSPITAL ASSOCIATION Plasma specimen or serum specimen or whole blood mtayepub45/23/2025 11:05 AM EDT Narrative Authorizing ProviderResult TypeResult StatusMonikki Ken [facility] BLOOD ORDERABLESFinal ResultPerforming OrganizationAddressCity/State/ZIP CodePhone Number [facility] [address] [place] [address], [facility] [address] [place] [address] * NON-[facility]IE Thyroid Stimulating Hormone (11/12/2024 11:05 AM EDT)ComponentValue Ref RangeTest MethodAnalysis TimePerformed AtPathologist SignatureNON- HIE Thyroid Stimulating Hormone1.200.45 - 5.33 u[iU]/mLSalem Regional Medical Center CtrComment:PERFORMED BY:[facility] [place] [address] [id number] MEDICAL DIRECTORGERA MESSINA M.D.Specimen (Source)Anatomical Location / LateralityCollection Method / VolumeCollection TimeReceived TimeOKLAHOMA HOSPITAL ASSOCIATION Plasma specimen or serum specimen or whole blood axkrmxwa01/23/2025 11:05 AM EDT Narrative Authorizing ProviderResult TypeResult StatusMonikki Ken MDMIAMI COUNTY MEDICAL [facility]ENTER BLOOD ORDERABLESFinal ResultPerforming OrganizationAddressCity/State/ZIP CodePhone Number [facility] [address] [place] [address], [facility] [address] [place] [address] * NON-[facility] HIE Alanine Aminotransferase (11/12/2024 11:05 AM EDT)ComponentValueRef RangeTest MethodAnalysis TimePerformed AtPathologist SignatureNON- HIE Alanine Vlxgwalyegfcmqqz334 - 52 U/LFChillicothe Hospital CtrSpecimen (Source)Anatomical Location / LateralityCollection Method / VolumeCollection TimeReceived TimeOKLAHOMA HOSPITAL ASSOCIATION Plasma specimen or serum specimen or whole blood nbdemffc94/23/2025 11:05 AM EDT Narrative Authorizing ProviderResult TypeResult StatusMonikki IZQUIERDO BLOOD ORDERABLESFinal ResultPerforming OrganizationAddressCity/State/ZIP CodePhone Number [facility] [address] [place] [address], [facility] [address] [place] [address] * ECG 12 Lead (10/30/2024 2:00 PM EDT)Specimen (Source)Anatomical Location / LateralityCollection Method / VolumeCollection TimeReceived Time Narrative [facility] - 10/30/2024 2:59 PM EDT Normal sinus rhythm with borderline first-degree AV block questionable old septal infarct Authorizing ProviderResult TypeResult StatusMonikki Ken MDECG ORDERABLES Final ResultPerforming OrganizationAddressCity/State/ZIP CodePhone Number [facility] * Echocardiogram (04/10/2024) Narrative 04/10/2024 Ordered by an unspecified provider. Authorizing ProviderResult TypeResult StatusGeneric Provider ScanningCV ECHO PROCEDURESFinal Result from Last 3 Months or Most Recently Relevant to Health Maintenance Insurance Care Teams Team MemberRelationshipSpecialtyStart DateEnd Date Ranjan Lomas DO [address] [facility] [place] [address] PCP - GeneralInternal Medicine04/16/24
--- OUTSIDE RECORDS SUMMARY | 2025-01-03 09:02 | XMS_ITS | Clinical Summary ---
Author Organization [facility] Address [address] [place] [address] Care Team Providers Care Machinery Dismantler Name Role Phone Unavailable Primary Care Provider Unavailabl e Social History Tobacco UseTypesPacks/DayYears UsedDateSmoking Tobacco: Never AssessedSex and Gender InformationValueDate RecordedSex Assigned at BirthNot on fileLegal Sex Male08/18/2021 10:49 PM EDTGender IdentityNot on fileSexual OrientationNot on file Plan of Treatment Not on file
--- OUTSIDE RECORDS SUMMARY | 2025-01-03 09:02 | XMS_ITS | Clinical Summary ---
Author Organization [facility] Address [address] [facility] [place] [address] Care Team Providers Care Spray Machine Loader Name Role Phone Ranjan Lomas DO Primary Care Provider [phone] Allergies No known active allergies Medications MedicationSigDispense QuantityRefillsLast FilledStart DateEnd DateStatus amLODIPine (Norvasc) 10 MG tablet Take 10 mg by mouth in the morning.08/10/2022ctive ibuprofen 600 MG tablet Take 1 tablet by mouth every 6 (six) hours.12/09/2021ctive Social History Tobacco UseTypesPacks/DayYears UsedDateSmoking Tobacco: NeverSmokeless Tobacco: Never Tobacco Cessation:Counseling Given: Not Answered Sex and Gender InformationValueDate RecordedSex Assigned at BirthNot on file Legal NjsCsld4910/17/2022 9:44 AM EDTGender IdentityNot on fileSexual Orientation Not on file Plan of Treatment [place] [address] Care Teams Team MemberRelationshipSpecialtyStart DateEnd Date Ranjan Lomas DO PCP - GeneralInternal Medicine11/03/22
--- NOTE | 2025-01-03 09:16 | ED.EPISTAXI1 ---
HPI - Epistaxis General Chief Complaint: Epistaxis Stated Complaint: nose bleed Time Seen by Provider: 01/03/25 08:15 Source: patient Mode of arrival: walk-in Limitations: no limitations History of Present Illness HPI Narrative: The patient is 79 years old male presented to the ER after he started having some nasal bleeding this morning, after he woke up he noted that he have some epistaxis mostly from the left side he hold some pressure and came to the ER but he mentioned that the bleeding continued for 4 hours before arrival, the patient denies any dizziness no other concern he has been spending a lot of the time in the hospital with his who is sick He denies that he has been hydrating well for the last few days The patient does take Eliquis for A-fib Related Data Home Medications ?Medication ?Instructions ?Recorded ?Confirmed amlodipine 10 mg tablet 10 mg PO DAILY 04/09/24 01/03/25 amiodarone 200 mg tablet 200 mg PO DAILY 01/03/25 01/03/25 apixaban 2.5 mg tablet (Eliquis) 2.5 mg PO BID 01/03/25 01/03/25 atorvastatin 10 mg tablet 10 mg PO DAILY 01/03/25 01/03/25 Previous Rx's ?Medication ?Instructions ?Recorded oxymetazoline 0.05 % nasal spray 2 spray intranasal BID PRN 01/03/25 (Afrin (oxymetazoline)) epistaxis 3 days #15 mL sodium chloride 0.65 % nasal spray 1 spray intranasal TID PRN dry 01/03/25 aerosol nasal passages #30 mL Allergies Allergy/AdvReac Type Severity Reaction Status Date / Time No Known Drug Allergies Allergy Verified 04/09/24 15:24 Review of Systems ROS Status of ROS 10 or more systems reviewed and unremarkable except as noted in history and below PFSH PFSH Social History Little interest or pleasure in doing things: not at all Feeling down, depressed, or hopeless: not at all Exam Narrative Exam Narrative: Nurses notes and vital signs reviewed and patient is not hypoxic. General: Well-appearing and in no apparent distress. Skin: Warm, dry, no pallor noted. No rash. Head: Normocephalic, atraumatic. Neck: Supple, non-tender. Ears, Nose, Mouth, and Throat: oral mucosa is moist, no posterior oropharynx erythema, uvula is mid-line. Upon arrival the patient have mild bleeding from the left naris with blood clot in the posterior aspect Neurological: A&O x4. No cranial nerve dysfunction observed. No truncal ataxia. Moves all extremities. Sensation intact. Psychiatric: Cooperative and interactive. Normal mood and affect. Constitutional Vital Signs, click to edit/add: Last Vital Signs Temp 98.4 F 01/03/25 08:19 Pulse 78 01/03/25 08:19 Resp 20 01/03/25 08:19 BP 140/91 01/03/25 08:19 Pulse Ox 97 01/03/25 08:19 Course Vital Signs Vital signs: Vital Signs Temperature 98.4 F 01/03/25 08:19 Pulse Rate 78 01/03/25 08:19 Respiratory Rate 20 01/03/25 08:19 Blood Pressure 140/91 01/03/25 08:19 Pulse Oximetry 97 01/03/25 08:19 Temperature 98.4 F 01/03/25 08:19 Pulse Rate 78 01/03/25 08:19 Respiratory Rate 20 01/03/25 08:19 Blood Pressure 140/91 01/03/25 08:19 Pulse Oximetry 97 01/03/25 08:19 MDM - Epistaxis MDM Narrative Medical decision making narrative: Initially applying pressure but not enough and we did apply Afrin and hold pressure after which the patient bleeding was very minimal although I did prepare for a Rhino Rocket in case needed The bleeding was posterior There was no compromise of the airway at any time and the patient after being monitored in the ER at least for an hour he had no further bleeding. He was discharged home with Afrin as well as Dauphin Ingraham nasal spray to use in the next few days to keep the nasal mucosa moist Also avoid any sleeping on the back and sleep only on the side for the next 2 days and in case of recurring bleeding the patient to come back to the ER Patient was educated about humidified air and avoiding any dry air exposure especially during the wintertime Patient blood pressure was controlled The patient to follow-up with the primary care within 2 to 3 days and to come back to the ER in case of any worsening of the current symptoms or any new symptoms or concerns Discharge Plan Discharge Chief Complaint: Epistaxis Clinical Impression: Epistaxis Patient Disposition: Home, Self-Care Time of Disposition Decision: 09:16 Condition: Good Prescriptions / Home Meds: New oxymetazoline [Afrin (oxymetazoline)] 0.05 % spray,non-aerosol 2 spray intranasal BID PRN (Reason: epistaxis) 3 Days Qty: 15 0RF sodium chloride 0.65 % aerosol,spray 1 spray intranasal TID PRN (Reason: dry nasal passages) Qty: 30 0RF No Action amlodipine 10 mg tablet 10 mg PO DAILY Eliquis 2.5 mg tablet 2.5 mg PO BID amiodarone 200 mg tablet 200 mg PO DAILY atorvastatin 10 mg tablet 10 mg PO DAILY Print Language: Salvadorean Instructions: Nosebleed (ED) Additional Instructions: Please elevate your head when you sleep and sleep on your side for the next 2 days to avoid any bleeding posteriorly In case of bleeding use the Afrin and then if no improvement after 10 minutes come back to the ER The patient to follow-up with the primary care within 2 to 3 days and to come back to the ER in case of any worsening of the current symptoms or any new symptoms or concerns Referrals: Ranjan Lomas DO [Primary Care Provider, Internal Medicine] - 1 week Discharge Date/Time: 01/03/25 09:32
== END 2025-01-03 09:32 | disposition home or self-care (01) ==
PROVIDERS: Emergency Provider Emergency Medicine; PCP Internal Medicine
DX: R04.0 Epistaxis (principal); I48.91 Unspecified atrial fibrillation; Z79.01 Long term (current) use of anticoagulants
CPT/HCPCS: 99284

== ENCOUNTER 2025-02-17 11:26 | Outpatient (OUT) | payer MEDICARE, OTHER, SELFPAY ==
--- OUTSIDE RECORDS SUMMARY | 2025-02-17 11:32 | XMS_ITS | Clinical Summary ---
Author Organization [facility] Address [address] 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)04/29/2024High risk medication use04/29/2024 Anticoagulation monitoring, special range04/29/2024MI 26.0-26.9,adult04/29/2024 Resolved Problems ProblemNoted DateDiagnosed DateResolved MgmbRkbjusnharl44 Family History Medical HistoryRelationNameCommentsDiabetesBrotherAortic aneurysmFatherColon cancerMotherheart problemMotherRelationNameStatusCommentsBrotherFatherMother Social History Tobacco UseTypesPacks/DayYears UsedDateSmoking Tobacco: NeverSmokeless Tobacco: Never Tobacco Cessation:Counseling Given: Not Answered Alcohol UseStandard Drinks/WeekCommentsNot Currently0 (1 standard drink = 0.6 oz pure alcohol)maybe once monthlySex and Gender InformationValueDate RecordedSex Assigned at BirthNot on fileLegal CkhAuur5004/10/2024 8:52 AM ESTGender Identity Not on fileSexual OrientationNot on file Last Filed Vital Signs Vital SignReadingTime TakenCommentsBlood Iujaprmr021/7209 2:03 PM EDT Ggzuw0008 2:03 PM EDTTemperature--Respiratory Rate--Oxygen Saturation-- Inhaled Oxygen Concentration--Tqzkgb83.2 kg (216 lb 9.6 oz)10/30/2024 2:03 PM DXLPuzjos333 cm (6' 4 )10/30/2024 2:03 PM EDTBody Mass Index26.37010/30/2024 2:03 PM EDT Plan of Treatment DateTypeDepartmentCare Team (Latest Contact Info)Xweseyxmilw87/23/2026 3:40 PM EDTOffice Visit at [facility] [address] [facility] [address] [place] [phone] Mely Ken MD [address] [facility] [address] [place] [address] Health MaintenanceDue DateLast DoneCommentsCreatinine Level1944Lipid Panel 1944Medicare Annual Wellness Visit (AWV)4Potassium Level 1944TSH Level4Diabetes Plwyhgudh60/21/1962CKD: Urine Protein Ydqnnmbbg48/21/1963Pneumococcal Vaccine (1 of 2 - PCV)01/10/1963Zoster Vaccines (1 of 2)01/10/1994RSV High Risk: (Elderly (60+) or Population) (1 - 1- dose 75+ series)01/10/2019COVID-19 Vaccine (3 - season)2024 02/03/2021, 04/29/2020Influenza Vaccine (#1)10/21/20246126Csrnwidxssdvqd96/19/2026 04/10/2024DTaP/Tdap/Td Vaccines (2 - Tdap)HIB VaccinesAged OutNo [...] to complete this topic Procedures Procedure NamePriorityDate/TimeAssociated DiagnosisCommentsECHOCARDIOGRAM 04/10/2024 from Last 3 Months or Most Recently Relevant to Health Maintenance Results * Echocardiogram (04/10/2024) Narrative 04/10/2024 Ordered by an unspecified provider. Authorizing ProviderResult TypeResult StatusGeneric Provider ScanningCV ECHO PROCEDURESFinal Result from Last 3 Months or Most Recently Relevant to Health Maintenance Insurance * Guarantor: Corwin MullerAccokrystle TypeRelation to PatientDate of BirthPhone Billing AddressPersonal/RpgppvXfsv[address] [id number] * Guarantor: Corwin MullerAccokrystle TypeRelation to PatientDate of BirthPhone Billing AddressPersonal/IyxopvDbed1945 [address] [id number] Care Teams Team MemberRelationshipSpecialtyStart DateEnd Date Ranjan Lomas DO [address] [place] [address] PCP - GeneralInternal Medicine04/16/24
--- OUTSIDE RECORDS SUMMARY | 2025-02-17 11:32 | XMS_ITS | Clinical Summary ---
Author Organization [facility] Address [address] [place] [address] Care Team Providers Care Research Mechanic Name Role Phone Unavailable Primary Care Provider Unavailabl e Social History Tobacco UseTypesPacks/DayYears UsedDateSmoking Tobacco: Never AssessedSex and Gender InformationValueDate RecordedSex Assigned at BirthNot on fileLegal Sex Male08/18/2021 10:49 PM EDTGender IdentityNot on fileSexual OrientationNot on file Plan of Treatment Not on file
--- OUTSIDE RECORDS SUMMARY | 2025-02-17 11:32 | XMS_ITS | Clinical Summary ---
Author Organization [facility] Address [address] [facility] [place] [address] Care Team Providers Care Special Education Preschool Teacher Name Role Phone Ranjan Lomas DO Primary Care Provider [phone] Allergies No known active allergies Medications MedicationSigDispense QuantityRefillsLast FilledStart DateEnd DateStatus amLODIPine (Norvasc) 10 MG tablet Take 10 mg by mouth in the morning.08/10/2022ctive ibuprofen 600 MG tablet Take 1 tablet by mouth every 6 (six) hours.12/09/2021ctive Social History Tobacco UseTypesPacks/DayYears UsedDateSmoking Tobacco: NeverSmokeless Tobacco: Never Tobacco Cessation:Counseling Given: Not Answered Sex and Gender InformationValueDate RecordedSex Assigned at BirthNot on file Legal OtkHcak8010/17/2022 9:44 AM EDTGender IdentityNot on fileSexual Orientation Not on file Plan of Treatment Not on [place] [address] [place] [address] Care Teams Team MemberRelationshipSpecialtyStart DateEnd Date Ranjan Lomas DO PCP - GeneralInternal Medicine11/03/22
--- OUTSIDE RECORDS SUMMARY | 2025-02-17 11:39 | XMS_ITS | CCD ---
Author Organization [facility] [facility] Care Team Providers Care Sex Offender Treatment Professional Name Role Phone NATHALY, DR GANDHI Admitting Unavailable NATHALY, DR GANDHI Attending Unavailable NATHALY, DR GANDHI Primary Care Unavailable NATHALY, DR GANDHI Consulting Unavailable Nathaly, Ranjan Unavailable Ranjan Andersen DO Primary Care Provider Shivam ANGUIANO, Kurtis Admit Provider [phone] Ai Orantes RN Other Provider Unavailable Dequan Kirkpatrick DO Other Provider Keron Gutierres MD Other Provider [phone] Gurjit Villagran MD Other Provider Suellen ANGUIANO, Mely Other Provider [phone] Yvan Mckeon MD Other Provider Hailey Weinberg APRN Other Provider Leonie Gaines MD Other Provider Geremias ANGUIANO, Lexi Leach Other Provider Bret Castañeda MD Other Provider Syd [facility]-, Susana Good Other Provider Felicia Aguilar MD Other Provider David GEAR ROOM KEEPER-C, Tavia Other Provider Unavailable Eliana ANGUIANO, Tobi Other Provider Noel Lilly MD Other Provider Gin Conrad MD Other Provider Luis Patel MD Other Provider Cathleen Kumari APRN Other Provider Belcik DO, Ocklawaha L Other Provider Storm ANGUIANO, David Martin Other Provider Jn Yanes MD Attending Provider Ranjan Andersen DO Primary Care Provider Fabricio FOX, Echo Unavailable Unavailable Ranjan Andersen DO Primary Care Provider Shivam ANGUIANO, Kurtis Smithit Provider Ai Orantes RN Other Provider Unavailable CasimiroDequan guerrero DO Other Provider Bhavik ANGUIANO, Keron Other Provider Tyshawn ANGUIANO, Gurjit Mike Other Provider Suellen ANGUIANO, Mely Other Provider Mike ANGUIANO, Yvan Other Provider Hailey Weinberg APRN Other Provider Eder ANGUIANO, Leonie Other Provider Geremias ANGUIANO, Lexi Leach Other Provider Garry ANGUIANO, Bret Other Provider Syd [facility], Susana Good Other Provider Felicia Aguilar MD Other Provider David GEAR ROOM KEEPER-C, Tavia Other Provider Unavailable Tobi Monroy MD Other Provider Vijaya ANGUIANO, Noel Other Provider Gin Conrad MD Other Provider Luis Patel MD Other Provider Cathleen Kumari APRN Other Provider Belharry RAMÍREZ, Ocklawaha L Other Provider David Inman MD Other Provider Jn Yanes MD Attending Provider Ranjan Andersen DO Primary Care Provider Tobi Monroy MD Attending Provider Nathaly , Ranjan Attending Provider [phone] Nathaly , Ranjan Primary Care Provider Eliana ANGUIANO, Tobi Attending Provider Nathaly DO, Ranjan Attending Provider [phone] Nathaly RAMÍREZ, Ranjan Primary Care Provider [phone] Eliana ANGUIANO, Tobi Attending Provider Nathaly , Ranjan Primary Care Provider [phone] Nathaly RAMÍREZ, Ranjan Attending Provider Suellen ANGUIANO, Mely Other Provider Darrel ANGUIANO, Myke Toro Attending Provider [phone] Tobi Monroy Admitting Unavailable Tobi Monroy Attending Unavailable [facility] Unavailable Mely Ken Admitting Unavailable Mely Ken Attending Unavailable [facility] Unavailable Jn Yanes Attending Unavailable [facility] Unavailable Ai Orantes Consulting Unavailable Kurtis Langley Admitting Unavailable Dequan Kirkpatrick Consulting Unavailable Keron Gutierres Consulting Unavailable Gurjit Villagran Consulting Unavail able Mely Ken Consulting Unavailable Yvan Mckeon Consulting Unavailab Hailey Garcia Consulting Unavailable Leonie Gaines Consulting Unavailable GeremiasLexi houser Consulting Unavailab Bret Larsen Consulting Unavailable Susana Velarde Consulting Unavailable Felicia Aguilar Consulting Unavailable Tavia Hernandez Consulting Unavailable Tobi Monroy Consulting Unavailable Noel Lilly Consulting Unavailable Gin Conrad Consulting Unavailable Luis Patel Consulting Unavailable Cathleen Kumari Consulting Unavailable Colt Curran Jr Consulting UnavailDavid Christiansen Consulting Unavaila ble Medications Current Medications MedicationDrug Class(es)DatesSig (Normalized)Sig (Original)apixaban 2.5 mg oral tablet (17 sources)Factor Xa InhibitorStart: 04-16-2024 End: 90-57-1165oyeb 1 tablet by mouth twice dailyApixaban (Eliquis) 2.5 mg Tablet Active 2.5 MG PO Twice daily 60 30 2 April 16, 2024 1:00am Complies with drug therapyaspirin 81 mg delayed release oral tablet (17 sources)Platelet Aggregation Inhibitor, Nonsteroidal Anti-inflammatory Drug Start: 04-16-2024 End: 16-95-6301axvd 1 tablet by mouth once dailyAspirin 81 mg Tablet,Delayed Release (Dr/Ec) Active 81 MG PO Daily 30 30 2 April 16, 2024 1:00am Complies with drug therapyatorvastatin 10 mg oral tablet (20 sources)HMG-CoA Reductase InhibitorStart: 06-27-2023 End: 25-21-5857smms 1 tablet by mouth once daily in the eveningAtorvastatin 10 mg tablet Active 10 MG PO Every evening 90 90 3 April 23, 2024 1:00am Complies with drug therapyhydrALAZINE hydrochloride 25 mg oral tablet (20 sources)Arteriolar VasodilatorStart: 79-94-7107qyrs 1 tablet by mouth twice dailyHydralazine 25 mg tablet Active 25 MG PO Twice daily May 23, 2024 1:04pm Complies with drug therapyStart: 05-13-2024 End: 72-33-0378siac 1 tablet by mouth twice dailyHydralazine 25 mg tablet Discontinued 0 .ROUTE .COMPLEX 60 11 May 13, 2024 10:20am May 23, 2024 1:05pm TAKE 1 TABLET BY MOUTH TWICE A DAYStart: 04-18-2024 End: 07-60-7943agza 1 tablet by mouth twice dailyHydralazine 25 mg Tablet Discontinued 25 MG PO Twice daily 60 30 0 April 18, 2024 1:00am 2024 10:20am24 hr isosorbide mononitrate 30 mg extended release oral tablet (17 sources)Nitrate VasodilatorStart: 04-16-2024 End: 30-06-9964effg 1 tablet by mouth once daily, then take 1 tablet by mouth every twenty-four hoursIsosorbide Mononitrate 30 mg Tablet Extended Release 24 Hr Active 30 MG PO Daily at 0600 30 30 2 April 16, 2024 1:00am Complies with drug therapymelatonin 5 mg oral tablet (20 sources)Start: 81-60-7995amyn 1 tablet by mouth once daily at bedtime as neededMelatonin 5 mg tablet Active 5 MG PO Daily at bedtime as needed May 23, 2024 1:05pm Complies with drug therapyStart: 05-13-2024 End: 79-41-5906uknd 1 tablet by mouth once daily at bedtime as needed for sleep Melatonin 5 mg tablet Discontinued 0 .ROUTE .COMPLEX 30 11 May 13, 2024 10:20am May 2351:05pm TAKE 1 TABLET ORALLY DAILY AT BEDTIME NEEDED FOR SLEEPStart: 04-18-2024 End: 45-93-9865srxa 1 tablet by mouth once daily at bedtime as needed for sleep Melatonin 5 mg Tablet Discontinued 5 MG PO Daily at bedtime as needed for sleep 30 0 March 1:00am May 13, 2024 10:20am24 hr metoprolol succinate 50 mg extended release oral tablet (20 sources)beta-Adrenergic BlockerStart: 04-16-2024 End: 75-19-5453jyof 1 tablet by mouth twice dailyMetoprolol Succinate 50 mg tablet extended release 24 hr Active 50 MG PO Twice daily April 23, 2024 4:27pm Complies with drug therapyMultivitamin Adult (5 sources)Multivitamin Adult ActiveMultivitamin preparation (2 sources)Start: 40-71-1889gbll 1 tablet by mouth once dailyMultivitamin Active 1 TAB PO Daily June 27, 2023 12:00amMultivitamin tablet (16 sources)Start: 59-35-4797ivyn 1 tablet by mouth once dailyStart: 06-27-2023 take 1 tablet by mouth once dailyMultivitamin tablet Active 1 TAB PO Daily June 27, 2023 12:00am Complies with drug therapyStart: 67-83-5644ytun 1 tablet by mouth once dailyMultivitamin tablet Active 1 TAB PO Daily June 27, 2023 12:00am Start: 60-60-8678anqv 1 tablet by mouth once dailyMultivitamin tablet Active 1 TAB PO Daily June 26, 2023 11:00pmmultivitamin tablet (2 sources)take 1 tablet by mouth once dailymultivitamin tablet Take 1 tablet by mouth once daily. Activemicroencapsulated potassium chloride 20 meq extended release oral tablet (20 sources)Start: 76-28-3851kosh 1 tablet by mouth once dailyPotassium Chloride 20 mEq tablet,ER particles/crystals Active 20 MEQ PO Daily May 23, 2024 1:05pm Paroxysmal atrial fibrillation with rapid ventricular response Paroxysmal atrial fibrillation Complies with drug therapyStart: 05-13-2024 End: 79-97-6287oiov 1 tablet by mouth once dailyPotassium Chloride 20 mEq tablet,ER particles/crystals Discontinued 0 .ROUTE .COMPLEX 30 May 13, 2024 10:19am May 23, 2024 1:05pm Paroxysmal atrial fibrillation with rapid ventricular response Paroxysmal atrial fibrillation TAKE 1 TABLET BY MOUTH DAILY, TO START 04/19/24 WITH LASIXStart: 04-18-2024 End: 35-47-8858Kpobgxwhg Chloride (Klor-Con M20) 20 mEq Tablet,Er Particles/Crystals Discontinued 20 MEQ PO Daily 30 April 18, 2024 1:00am May 13, 2024 10:19am Paroxysmal atrial fibrillation with rapid ventricular response Paroxysmal atrial fibrillation To start 04/19/24 with lasix spironolactone 25 mg oral tablet (17 sources)Aldosterone AntagonistStart: 07-08-2024 End: 02-43-2090cimt 0.5 tablet by mouth once dailyspironolactone (Aldactone) 25 mg tablet Indications: Persistent atrial fibrillation (Multi) , Essential hypertension , Cardiomyopathy, ischemic Take 0.5 tablets (12.5 mg) by mouth once daily. 45 tablet 3 07/08/2024 07/08/2025 ActiveStart: 10-15-3054Yitzodjalvyccv 25 mg Tablet Active 12.5 MG PO Daily 15 30 2 April 16, 2024 1:00am Complies with drug therapytake 0.5 tablet by mouth once dailyspironolactone (Aldactone) 25 mg tablet Take 0.5 tablets (12.5 mg) by mouth once daily. Active Completed/Discontinued Medications MedicationDrug Class(es)DatesSig (Normalized)Sig (Original)amiodarone hydrochloride 200 mg oral tablet (20 sources)AntiarrhythmicStart: 07-30-2024 End: 49-32-1214zewx 1 tablet by mouth once dailyamiodarone (Pacerone) 200 mg tablet Indications: Persistent atrial fibrillation (Multi) Take 1 tablet (200 mg) by mouth once daily. 90 tablet 1 07/30/2024 10/30/2024 Discontinued (Discontinued by another clinician)Start: 04-29-2024 End: 04-31-8196ofan 0.5 tablet by mouth once dailyamiodarone (Pacerone) 200 mg tablet Indications: Persistent atrial fibrillation (Multi) Take 0.5 tablets (100 mg) by mouth once daily. 45 tablet 3 04/29/2024 04/29/2025 ActiveStart: 48-70-0455wcxl 2 tablets by mouth once daily, then take 2 tablets by mouth once dailyAmiodarone 100 mg tablet Active 100 MG PO daily 30 30 April 29, 2024 12:37pm Amiodarone 200 mg TID for 1 week, then decrease to 200 mg daily. Complies with drug therapyStart: 04-16-2024 End: 40-67-3088sfvm 1 tablet by mouth three times daily, then take 1 tablet by mouth once dailyAmiodarone 200 mg tablet Discontinued 200 MG PO Three times daily 42 30 April 16, 2024 1:00am April 29, 2024 12:37pm Amiodarone 200 mg TID for 1 week, then decrease to 200 mg daily.take 1 tablet by mouth once dailyamiodarone (Pacerone) 100 mg tablet Take 1 tablet (100 mg) by mouth once daily. Active End: 31-98-7974wimi 1 tablet by mouth once dailyamiodarone (Pacerone) 200 mg tablet Take 1 tablet (200 mg) by mouth once daily. 200mg 3x a day for 1 week then 200mg daily 04/29/2024 Discontinued (Reorder)amLODIPine 10 mg oral tablet (20 sources)Dihydropyridine Calcium Channel BlockerStart: 11-05-2023 End: 96-37-2840jfpt 1 tablet by mouth once dailyAmlodipine 10 mg tablet Discontinued 0 .ROUTE .COMPLEX 90 3 December 15, 2023 4:25pm April 18, 2024 1:06pm Take 1 tablet by mouth once dailyStart: 06-27-2023 End: 24-57-1818goby 1 tablet by mouth once dailyAmlodipine 10 mg tablet Discontinued 10 MG PO Daily June 27, 2023 12:00am November 05, 2023 5:50pm take 1 tablet by mouth once dailyamLODIPine Besylate 10 MG Take 1 tablet by mouth once daily ActiveBrompheniramine / Pseudoephedrine (5 sources)alpha-Adrenergic AgonistStart: 24-91-7619lfee 10 mL by mouth every six hours as neededBromfed DM 30-2-10 MG/5ML 10 ml as needed Orally every 6 hrs Jan, Not-Taking/PRNStart: 93-37-0964oefy 10 mL by mouth every six hours as neededBromfed DM 30-2-10 MG/5ML 10 ml as needed Orally every 6 hrs Jan, Not-Takingfurosemide 40 mg oral tablet (20 sources)Loop DiureticStart: 04-18-2024 End: 31-81-4765sbqm 1 tablet by mouth twice dailyFurosemide 40 mg tablet Discontinued 40 MG PO Twice daily 60 30 5 May 13, 2024 10:20am November 07, 2024 7:33am Congestive heart failure Heart failure, unspecifiedLidocaine (7 sources)Antiarrhythmic, Amide Local AnestheticStart: 41-63-2363Qjkrwvlye Jan, 3 mLStart: 03-96-4958Bbkfmdmuu June, 30 mgPotassium Chloride 20 mEq tablet,ER particles/crystals (3 sources)Start: 05-13-2024 End: 00-19-8131jhtd 1 tablet by mouth once dailyPotassium Chloride 20 mEq tablet,ER particles/crystals Discontinued 0 .ROUTE .COMPLEX May 13, 2024 10:19am May 23, 2024 1:05pm TAKE 1 TABLET BY MOUTH DAILY, TO START 04/19/24 WITH LASIXpredniSONE 20 mg oral tablet (6 sources)Start: 10-29-2024 End: 02-74-2961Jpudlsorsl 20 mg tablet Discontinued 20 MG PO As Directed 10 7 0 October 30, 2024 2:06pm November 28, 2024 3:11pm 1 tab tid w/ food x 1 days, then bid w/ food x 2 days, then qd w/ food x 3 daystriamcinolone acetonide 10 mg/ml injectable suspension (7 sources)CorticosteroidStart: 63-72-7754Dcmwbiw Jan, 1 mLStart: 77-37-4955Fjbwxri-40 June, 40 mg Problems Active Problems Problem ClassificationProblemDateDocumented DateEpisodic/ChronicAcute and unspecified renal failure (20 sources)Acute renal failure syndrome; Translations: [Acute kidney failure, unspecified]Onset: 738609-30-8313JlloiahtIqfxm myocardial infarction (20 sources)Myocardial infarction; Translations: [Non-ST elevation (NSTEMI) myocardial infarction]Onset: 789058-39-6649EhdshvhHtzhsmy dysrhythmias (20 sources)Atrial tachycardia; Translations: [Atrial tachycardia]Onset: 525041-96-3981EfsnpbhEsslzyf on above:PFT: FEV1/FVC 81%, FEV1 87%, TLC 99%, RV/TLC 52%, DLCO 118% - hronic kidney disease (20 sources)Chronic kidney disease, stage 4 (severe); Translations: [Chronic kidney disease stage 3]Onset: 897125-99-6435ZasklqjNnsmwln on above:Renal US: no renal mass, stones or obstruction - hronic kidney disease (2 sources)Chronic kidney disease; Translations: [Chronic kidney disease, stage 3b]Onset: 84-11-6782Upzjvxobwc heart failure; nonhypertensive (20 sources)Heart failure with reduced ejection fraction; Translations: [Unspecified systolic (congestive) heart failure]Onset: 118176-15-6553 ChronicComment on above:NM stress: reversible anterior wall defect - 03/2024,Echo: LVEF 35-40%, normal RV size - oronary atherosclerosis and other heart disease (20 sources)Ischemic myocardial dysfunction; Translations: [Ischemic cardiomyopathy]Onset: 582413-51-3155NeimuecFhqkcjq on above:NSTEMI - 03/2024NM stress: reversible anterior wall defect - 03/2024,Echo: LVEF 35-40%, normal RV size - 03/2024Deficiency and other anemia (19 sources)Anemia; Translations: [Anemia, unspecified]25-50-8708Kaoupwmz Diseases of mouth; excluding dental (3 sources)Recurrent aphthous stomatitis; Translations: [Recurrent oral aphthae] EpisodicDisorders of lipid metabolism (20 sources)Pure hypercholesterolemia; Translations: [Familial hypercholesterolemia]Onset: 079044-42-9551WwtveybFebvqvkbzp disorders (3 sources)Esophageal disorders; Translations: [Gastro-esophageal reflux disease with esophagitis, without bleeding]Onset: 59-45-7105Cjdlchjad hypertension (20 sources)Essential hypertension; Translations: [Essential (primary) hypertension]Onset: 38-30-7172WtzgvxkXsnxrrdcwnpzx symptoms and ill-defined conditions (20 sources)Asymptomatic bacteriuria; Translations: [Bacteriuria]07-01-2024 EpisodicHyperplasia of prostate (3 sources)Lower urinary tract symptoms due to benign prostatic hypertrophy; Translations: [Benign prostatic hyperplasia with lower urinary tract symptoms] ChronicHypertension with complications and secondary hypertension (20 sources)Hypertensive chronic kidney disease with stage 1 through stage 4 chronic kidney disease, or unspecified chronic kidney disease; 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]Onset: 92-72-6446EdnmygsQbmthyxwr of unspecified nature or uncertain behavior (11 sources)Neoplasm of uncertain behavior, unspecified; Translations: [Neoplasm of uncertain behavior]Onset: 16-47-2274IvidakttUvrhqufyvlumcn (20 sources)Arthritis of right hip; Translations: [Unilateral primary osteoarthritis, right hip]Onset: 01-55-1742BugukbnQpbxz aftercare (8 sources)Taking high risk medication; Translations: [Other intermediate manager (current) drug therapy]Onset: 235670-16-2347JytdqilkTukhp aftercare (3 sources)Long-term current use of anticoagulant; Translations: [jail (current) use of anticoagulants]Onset: 916974-10-0905VxkivlvtKfzlw circulatory disease (3 sources)History of cerebrovascular accident without residual deficits; Translations: [Personal history of transient ischemic attack (TIA), and cerebral infarction without residual deficits]EpisodicOther connective tissue disease (5 sources)Bilateral plantar fasciitis; Translations: [Plantar fascial fibromatosis]EpisodicOther connective tissue disease (1 source)Plantar fascial fibromatosisEpisodicOther connective tissue disease (6 sources)Pain in both feet; Translations: [Pain in right foot]10-23-2024 EpisodicOther diseases of kidney and ureters (20 sources)Secondary hyperparathyroidism; Translations: [Secondary hyperparathyroidism of renal origin]81-46-1618SscocpcKkvey diseases of kidney and ureters (9 sources)Secondary hyperparathyroidism of renal origin; Translations: [Secondary hyperparathyroidism (of renal origin)]43-19-2772DwhgjicXrpos ear and sense organ disorders (12 sources)Decreased hearing ; Translations: [Unspecified hearing loss, bilateral]82-18-7077BdpaqmcNhxea ear and sense organ disorders (20 sources)Impacted cerumen; Translations: [Impacted cerumen, bilateral] Resolved: 068443-57-1643TfujqftyVteig ear and sense organ disorders (2 sources)Impacted cerumen, bilateralEpisodicOther ear and sense organ disorders (3 sources)Otalgia; Translations: [Otalgia, left ear]EpisodicOther lower respiratory disease (15 sources)Acute pulmonary edema; Translations: [Acute pulmonary edema] 39-74-7358NoznxgthQeama non-traumatic joint disorders (16 sources)Arthralgia of the lower leg; Translations: [Pain in right knee] EpisodicOther non-traumatic joint disorders (16 sources)Pain in right knee; Translations: [Pain in both knees]EpisodicOther non-traumatic joint disorders (2 sources)Pain in left kneeEpisodicOther non-traumatic joint disorders (3 sources)Pain in right hip joint; Translations: [Pain in right hip]Episodic Other non-traumatic joint disorders (12 sources)Pain in left shoulder; Translations: [Left shoulder pain]06-24-2024 EpisodicOther nutritional; endocrine; and metabolic disorders (3 sources)Overweight; Translations: [Overweight]EpisodicOther nutritional; endocrine; and metabolic disorders (4 sources)Overweight in adulthood with body mass index of 25 or more but less than 30; Translations: [Body mass index (BMI) 27.0-27.9, adult]Onset: 04-29-2024 25-07-0447KeerzgimLpdam nutritional; endocrine; and metabolic disorders (20 sources)Hyperuricemia; Translations: [Hyperuricemia without signs of inflammatory arthritis and tophaceous disease]84-05-3064DaksfphdVuzgp nutritional; endocrine; and metabolic disorders (4 sources)Hyperuricemia without signs of inflammatory arthritis and tophaceous disease; Translations: [Other abnormal blood chemistry]95-48-4516ZabhlgogDkbxz screening for suspected conditions (not mental disorders or infectious disease) (6 sources)Encounter for screening for malignant neoplasm of prostate; Translations: [Cardiovascular stress test abnormal]Onset: EpisodicOther upper respiratory disease (3 sources)Seasonal allergic rhinitis; Translations: [Other seasonal allergic rhinitis]Onset: 57-37-9007UxibbswLbvd-; endo-; and myocarditis; cardiomyopathy (except that caused by tuberculosis or sexually transmitted disease) (9 sources)Cardiomyopathy; Translations: [Cardiomyopathy, unspecified]Onset: 024001-12-4863UzquzazYonwnonf codes; unclassified (3 sources)Tobacco user; Translations: [Tobacco use]EpisodicResidual codes; unclassified (2 sources)Never smoked tobacco; Translations: [Other specified health status] Onset: 376755-52-2253LwcvswbjXmfoebcmwki failure; insufficiency; arrest (adult) (20 sources)Acute respiratory failure; Translations: [Acute respiratory failure with hypoxia]Onset: 140827-44-7185NjbpsnxwCozmbdpkfhe; intervertebral disc disorders; other back problems (8 sources)Lumbar spondylosis; Translations: [Spondylosis without myelopathy or radiculopathy, lumbar region]ChronicSprains and strains (18 sources)Late effect of sprain AND/OR strain without tendon injury; Translations: [Strain of left quadricepsmuscle, fascia and tendon, sequela] 15-45-1722DitbvzohVbumpxmwuxkv (7 sources)A [facility] screening has identified you as FRAIL [...] Four Ways to Beat the Frailty Risk [email or web address]-[email or web address]-[email or web address]- qank-al-futc-the-fra chhg-[email or web address]ccqg (1 source)Other persistent atrial fibrillation; Translations: [Other persistent atrial fibrillation]Onset: 80-21-4868Tkonlzlmglre (1 source)Pyuria; Translations: [Pyuria]Onset: 07-00-1538Stsaplylmmcp (1 source)Supraventricular tachycardia, unspecified; Translations: [Supraventricular tachycardia, unspecified]Onset: 04-10-2024 Past or Other Problems Problem ClassificationProblemDateDocumented DateEpisodic/ChronicAcute bronchitis (3 sources)Acute bronchitis; Translations: [Acute bronchitis, unspecified]Onset: 07-86-9086YwwjfdbsDujkgzn dysrhythmias (4 sources)Tachycardia; Translations: [Tachycardia, unspecified]Onset: 04-29-2024 Resolved: 125507-46-5811OpzkrznuPaoio disorders and dislocations; trauma-related (3 sources)Current tear of medial cartilage AND/OR meniscus of knee; Translations: [Peripheral tear of medial meniscus, current injury, left knee, initial encounter]Onset: 05-58-8390HwdausnkXlvxd connective tissue disease (3 sources)Bursitis; Translations: [Other bursitis, not elsewhere classified, unspecified site]Onset: 45-88-3188NvbbtgfyZihqv lower respiratory disease (3 sources)Cough; Translations: [Cough, unspecified]Onset: 24-38-7206Wkgjaiqz Other lower respiratory disease (8 sources)Acute pulmonary edema; Translations: [Acute edema of lung, unspecified]Onset: 513607-84-2401SrofkkdlAytui non-traumatic joint disorders (11 sources)Pain in unspecified knee; Translations: [Knee pain]Onset: 04-10-2024 20-73-6615HcatmnabHaxah skin disorders (3 sources)Actinic keratosis; Translations: [Actinic keratosis]Onset: 03-24-2017 EpisodicOther upper respiratory infections (3 sources)Acute pharyngitis; Translations: [Acute pharyngitis, unspecified] Onset: 44-38-0612FnebfswaPoijaiztcypw (2 sources)Onset: 463284-00-6160Dbjethe tract infections (11 sources)Urinary tract infectious disease; Translations: [Urinary tract infection, site not specified]Onset: 179152-50-5082Omrgyoqn Results Test NameValueInterpretationReference RangeFacilityErythrocyte distribution width Auto (RBC) [Ratio]Ordered By: Tobi Monroy on 47-44-3939Ahjhsqpjtlf distribution width (RBC) [Ratio]12.5 %11.0-15.0[facility] Glomerular filtration rate (GFR) estimation in non- AmericanOrdered By: Tobi Monroy on 96-23-0367IYY/1.73 sq M.predicted among non-blacks MDRD (S/P/Bld) [Vol rate/Area]17 mL/min/{1.73_m2}Low>=60 mL/min/1.73m 2FWyandot Memorial HospitalHematocrit Auto (Bld) [Volume fraction]Ordered By: Tobi Monroy on 52-57-3873Efrkzgzowz (Bld) [Volume fraction]42.1 %42.0-54.0[facility] HospitalHemoglobin [Mass/volume] in BloodOrdered By: Tobi Monroy on 58-61-4865Dradsbkazu (Bld) [Mass/Vol]14.3 g/dL14.0-18.0[facility] HospitalIron binding capacity [Mass/volume] in Serum or PlasmaOrdered By: Tobi Monroy on 21-78-8279Ljov binding capacity [Mass/Vol]267.0 ug/dL250.0-450.0 [facility] HospitalIron saturation [Mass Fraction] in Serum or PlasmaOrdered By: Tobi Monroy on 51-40-9096Sntd saturation [Mass fraction]25.5 % [facility] HospitalLaboratory - Chemistry and Chemistry - challengeOrdered By: Tobi Monroy on 88-55-7654Ymbbvcl [Mass/Vol]3.5 g/dL3.4-5.0 [facility] HospitalCalcium [Mass/Vol]8.8 mg/dL8.5-10.1FWyandot Memorial HospitalChloride [Moles/Vol]104 mmol/O69-494ZdrxcavtsMercy Health Urbana HospitalCO2 [Moles/Vol]30.4 mmol/L21.0-32.0[facility] HospitalCreatinine [Mass/Vol]3.44 mg/dLHigh0.70-1.30[facility] [facility] HospitalFerritin [Mass/Vol]162.0 ng/mL26.0-388.0[facility] GFR/1.73 sq M.predicted MDRD (S/P/Bld) [Vol rate/Area]21 mL/min/{1.73_m2}Low>=60 mL/min/1.73m 2FWyandot Memorial HospitalGlucose [Mass/Vol]132 mg/dLHigh 74-106[facility] HospitalIron [Mass/Vol]68.0 ug/dL65.0-175.0 [facility] HospitalMagnesium [Mass/Vol]2.3 mg/dL1.8-2.4FWyandot Memorial HospitalPotassium [Moles/Vol]3.7 mmol/L3.5-5.1FMercy Health Anderson Hospitalodium [Moles/Vol]139 mmol/S657-359TlcnwofhiMercy Health Urbana HospitalUrate [Mass/Vol]14.0 mg/dLHigh3.5-7.2FWyandot Memorial HospitalUrea nitrogen [Mass/Vol]44.0 mg/dLHigh7.0-18.0[facility] HospitalUrea nitrogen/Creatinine [Mass ratio]12.8 mg/mgMercy Health [facility] Hospital Laboratory - UrinalysisOrdered By: Tobi Monroy on 12-25-9469Clamygl (U) [Mass/Vol]24.4 mg/dLHigh<=11.9[facility] HospitalLeukocytes [#/volume] corrected for nucleated erythrocytes in Blood by Automated coun Ordered By: Tobi Monroy on 98-24-1439QWN corrected for nucl RBC Auto (Bld) [#/Vol]6.8 10 3/uL4.0-11.0[facility] Auto (RBC) [Entitic mass]Ordered By: Tobi Monroy on 16-67-4155OTT (RBC) [Entitic mass]30.5 pg25.9-34.0[facility] HospitalHC Auto (RBC) [Mass/Vol]Ordered By: Tobi Monroy on 76-46-8182XPTP (RBC) [Mass/Vol]34.0 g/dL29.9-35.2FWyandot Memorial HospitalMCV Auto (RBC) [Entitic vol]Ordered By: Tobi Monroy on 23-35-8391PRE (RBC) [Entitic vol]89.8 fL80.0-94.0[facility] HospitalNo Panel InformationOrdered By: Tobi Monroy on 62-82-8114Yqvxr Random Wbwgaqelvs92.52 mg/dL20.00-300.00[facility]25-Hydroxy Vitamin D Total40.1 ng/mLMercy Health Urbana HospitalComment on above:<20 ng/mL Vit D pjbmxcuit48-<30 ng/mL Vit D sqoqyoqxjqbo70-535 ng/mL Vit D sufficient>100 ng/mL Potential ToxicityParathyroid Hormone (Intact)114 pg/mL Urbkbkic17-05OulikwjgzMercy Health Urbana HospitalComment on above:Performed at: [employer] [id number] Director: Polo Goldberg PhD, Phone: [phone] Level3.7 mg/dL2.6-4.7FWyandot Memorial HospitalPlatelet mean volume Auto (Bld) [Entitic vol]Ordered By: Tobi Monroy on 60-77-4227Qkabkbrp mean volume (Bld) [Entitic vol]9.9 fL9.5-13.5 [facility] HospitalPlatelets Auto (Bld) [#/Vol]Ordered By: Tobi Monroy on 53-07-3049Kpekydjfx (Bld) [#/Vol]195 10 3/eN321-777JnpajgxniMercy Health Urbana HospitalRBC Auto (Bld) [#/Vol]Ordered By: Tobi Monroy on 45-39-5162TXC (Bld) [#/Vol]4.69 10 6/uLLow4.70-6.10[facility] Southerum or plasma anion gap determinationOrdered By: Tobi Monroy on 72-12-2981Stlmc gap [Moles/Vol]8.3 mmol/LFWyandot Memorial HospitalUrine protein/creatinine ratioOrdered By: Tobi Monroy on 62-28-7082Murvznm/Creatinine (U) [Ratio]0.33 [facility] HospitalAlanine Aminotransferaseon 08-45-9630WZY [Catalytic activity/Vol]21 U/LNormal7-52The [facility] Physician GroupComment on above:Performed By: #### BRIONNA, ADDONUAPLUS #### [place] [address] USABasic Metabolic Panelon 67-40-2363Imkbb gap [Moles/Vol] 10.5 mmol/LNormal6.0-15.0The [facility] Physician GroupComment on above:Performed By: #### CUBarbara, ADDONUAPLUS #### [place] [address] USACalcium [Mass/Vol]9.1 mg/dLNormal8.6-10.3The [facility] Physician GroupComment on above:Performed By: #### CUBarbara, ADDONUAPLUS #### [place] [address] USAChloride [Moles/Vol]100 mmol/XTvsvsh66-074Fgt [facility] Physician GroupComment on above:Performed By: #### CUU, ADDONUAPLUS #### [place] [address] USACO2 [Moles/Vol]33.2 mmol/LHigh21.0-31.0The [facility] Physician GroupComment on above:Performed By: #### CUU, ADDONUAPLUS #### [place] [address] USACreatinine [Mass/Vol]2.99 mg/dLHigh0.70-1.30The [facility] Physician GroupComment on above:Performed By: #### CUU, ADDONUAPLUS #### [place] [address] USAGFR/1.73 sq M.predicted MDRD (S/P/Bld) [Vol rate/Area] 20.441 mL/min/{1.73_m2}NormalThe [facility] Physician GroupComment on above: Performed By: #### CUU, ADDONUAPLUS #### [place] [address] USAGlucose [Mass/Vol]89 mg/jYUhfnjc13-824Fvu [facility] Physician GroupComment on above:Result Comment: Random Glucose Reference Range is dependent on time and content of last meal. Glucose of more than 200 mg/dL in a nonstressed, ambulatory subject supports the diagnosis of Diabetes Mellitus. ADA recommended reference rangePerformed By: #### CUU, ADDONUAPLUS #### [place] [address] USAPotassium [Moles/Vol]3.7 mmol/LNormal3.5-5.1The [facility] Physician GroupComment on above:Performed By: #### CUU, ADDONUAPLUS #### [place] [address] USASodium [Moles/Vol]140 mmol/VJdogll626-723Wbd [facility] Physician GroupComment on above:Performed By: #### BRIONNA, ADDONUAPLUS #### [place] [address] USAUrea nitrogen [Mass/Vol]57 mg/dLHigh7-25The [facility] Physician GroupComment on above:Performed By: #### CUU, ADDONUAPLUS #### [place] [address] USAThyroid Stimulating Hormoneon 72-23-0230KDW Qn1.20 m[IU]/L Normal0.45-5.33The [facility]ician [facility] RankinComment on above:Result Comment: PERFORMED BY: [place] [address] PATHOLOGIST DIRECTOR CHEMISTRY GERA MESSINA M.D.Performed By: #### CUU, ADDONUAPLUS #### [place] [address] USAXR chest 2V*on 10-63-6797BC chest 2V*[facility] Main [place] [address] [place] [address] XRay Report Signed Patient: Corwin Muller MR#: [id number] : 1945 Acct:[id number] Age/Sex: 79 / M ADM Date: 11/12/24 Loc: RT Room: Type: [facility] Attending Dr: Mely Ken MD Copies to: [...] ABNORMALITY. Impression dictated by: Luis Vidal Jr., D.ONathaniel 11/12/2024 4:17 PM Dictation Location: [place] [address] Transcribed By: [facility] 11/12/24 161 Dictated By: Luis Vidal Jr, DO 11/12/24 1616 Signed By: 11/12/24 1617[facility] Physician GroupECG [address] [place] 78-48-6773Smtfhx sinus rhythm with borderline first-degree AV block questionable old septal infarctCPDayton Osteopathic Hospital Work Phone: Urine Cultureon 51-34-9621Rgigilpj identified Cx Nom (U)Urine Culture Results >100,000 col/ml Mixed Bacterial Skin Contaminants 2 Days PERFORMED BY: [place] [address] PATHOLOGIST DIRECTOR CHEMISTRY GERA MESSINA M.D.NormalThe [facility] Physician GroupComment on above: Performed By: #### CUU #### [place] [address] USAUrine cultureOrdered By: Tobi Monroy on 30-77-5801Njzggyzz identified Cx Nom (U)[facility] HospitalErythrocyte distribution width Auto (RBC) [Ratio]Ordered By: Tobi Monroy on 42-79-6605Evnoxcvcxol distribution width (RBC) [Ratio]12.8 %11.0-15.0[facility] Estimated glomerular filtration rate (GFR) non- AmericanOrdered By: Tobi Monroy on 54-68-0784JWC/1.73 sq M.predicted among non-blacks MDRD (S/P/Bld) [Vol rate/Area]17 mL/min/{1.73_m2}Low>=60 mL/min/1.73m [address] [place], [place] [address]Hematocrit Auto (Bld) [Volume fraction]Ordered By: Tobi Monroy on 76-12-1143Gosnxzayuy (Bld) [Volume fraction]38.8 %Low42.0-54.0[facility] HospitalHemoglobin [Mass/volume] in BloodOrdered By: Tobi Monroy on 67-70-7945Vyyrmfgeft (Bld) [Mass/Vol]13.2 g/dLLow14.0-18.0[facility] HospitalLaboratory - Chemistry and Chemistry - challengeOrdered By: Tobi Monroy on 85-64-5580Xnxrket [Mass/Vol]3.7 g/dL3.4-5.0[facility] HospitalCalcium [Mass/Vol]9.4 mg/dL8.5-10.1FWyandot Memorial Hospital Chloride [Moles/Vol]102 mmol/N74-290FuyibyxeuMercy Health [facility] HospitalCO2 [Moles/Vol]31.0 mmol/L21.0-32.0[facility] HospitalCreatinine [Mass/Vol]3.56 mg/dLHigh0.70-1.30[facility] HospitalGFR/1.73 sq M.predicted MDRD (S/P/Bld) [Vol rate/Area]20 mL/min/{1.73_m2}Low>=60 mL/min/1.73m [address] [place], [place] [address]Glucose [Mass/Vol]115 mg/dLHigh 74-106[facility] HospitalMagnesium [Mass/Vol]2.3 mg/dL1.8-2.4 [facility] HospitalPotassium [Moles/Vol]4.0 mmol/L3.5-5.1FMercy Health Anderson Hospitalodium [Moles/Vol]140 mmol/D473-282RkautqhvwMercy Health [facility]ana HospitalUrate [Mass/Vol]13.4 mg/dLHigh3.5-7.2[facility] Medical CenterUrea nitrogen [Mass/Vol]52.0 mg/dLHigh7.0-18.0[facility] HospitalUrea nitrogen/Creatinine [Mass ratio]14.6 mg/mgMercy Health U[place]ana HospitalBilirubin Ql (U)NegativeNEGATIVEMercy Health [facility] HospitalGlucose (U) [Mass/Vol]NegativeNEGATIVEMercy Health [facility] HospitalKetones Ql (U) NegativeNEGOhioHealth Grady Memorial HospitalpH (U)6.0 [pH]5.0-9.0[facility] Hospital Southpecific gravity (U) [Rel density]1.0151.005-1.025 [facility] HospitalUrobilinogen Qn (U)0.2 {Peri'U}/dL0.2-1.0 [facility] HospitalLaboratory - Specimen informationOrdered By: Tobi Monroy on 89-12-2419Uprqfwlkzc (U)CLOUDYAbnormalCLEARFWyandot Memorial HospitalColor (U)YELLOWYELLOWMercy Health [facility] HospitalLaboratory - UrinalysisOrdered By: Tobi Monroy on 08-72-7034Eklctcmcj esterase Test strip Ql (U)LARGEAbnormalNEGOhioHealth Grady Memorial HospitalMucus Ql (Urine sed) NONE SEENNONE SEENMercy Health U[place]ana HospitalNitrite Ql (U)Positive AbnormalNEGOhioHealth Grady Memorial HospitalProtein (U) [Mass/Vol]63.6 mg/dLHigh<=11.9[facility] HospitalProtein Ql (U)TRACE mg/dL NEG/TRACEMercy Health [facility] HospitalLeukocytes [#/volume] corrected for nucleated erythrocytes in Blood by Automated counOrdered By: Tobi Monroy on 12-76-1656IVQ corrected for nucl RBC Auto (Bld) [#/Vol]7.1 10 3/uL4.0-11.0 [facility] Auto (RBC) [Entitic mass]Ordered By: Tobi Monroy on 69-67-8099SWJ (RBC) [Entitic mass]31.2 pg25.9-34.0[facility] HospitalMCHC Auto (RBC) [Mass/Vol]Ordered By: Tobi Monroy on 07-30-2025 MCHC (RBC) [Mass/Vol]34.0 g/dL29.9-35.2FWyandot Memorial HospitalMCV Auto (RBC) [Entitic vol]Ordered By: Tobi Monroy on 60-54-1687RPO (RBC) [Entitic vol] 91.7 fL80.0-94.0[facility] HospitalNo Panel InformationOrdered By: Tobi Monroy on 915099-Qxgwaba Vitamin D Total38.3 ng/mLMercy Health Urbana HospitalComment on above:<20 ng/mL Vit D -<30 ng/mL Vit D hzcmvrqkvkea58-018 ng/mL Vit D sufficient>100 ng/mL Potential Toxicity Parathyroid Hormone (Intact)94 pg/yIGyuzodwt04-08TkwzfdvxkMercy Health [facility]ana HospitalComment on above:Performed at: [employer] [id number] Director: Polo Goldberg PhD, Phone: [phone] Phosphorus Level3.6 mg/dL2.6-4.7FWyandot Memorial HospitalUrine Bacteria SMALL #/HPFAbnormalNONE SEENMercy Health U[facility]ana HospitalUrine Occult Blood SMALLAbnormalNEGATIVEMercy Health [place] HospitalUrine Other CastsNONE SEEN #/LPFNONE [facility] CenterUrine Other CrystalsNone Seen #/HPFNone [facility] HospitalUrine Random Lpjunvxxts29.59 mg/dL20.00-300.00[facility] HospitalUrine RBC2-5 #/HPFAbnormal0-2 [facility] HospitalUrine Squamous Epithelial CellsRARE #/LPF NONE/RAREMercy Health Urbana HospitalUrine WBC>100 #/HPFAbnormalNONE SEEN [facility] HospitalPlatelet mean volume Auto (Bld) [Entitic vol] Ordered By: Tobi Monroy on 01-48-5773Oppoxlbr mean volume (Bld) [Entitic vol] 10.1 fL9.5-13.5FWyandot Memorial HospitalPlatelets Auto (Bld) [#/Vol] Ordered By: Tobi Monroy on 97-08-5979Axbtbtrat (Bld) [#/Vol]209 10 3/qC016-714 [facility] HospitalRBC Auto (Bld) [#/Vol]Ordered By: Tobi Monroy on 46-19-4748QQQ (Bld) [#/Vol]4.23 10 6/uLLow4.70-6.10[facility] Southerum or plasma anion gap determinationOrdered By: Tobi Monroy on 20-20-5354Dkayp gap [Moles/Vol]11.0 mmol/LFWyandot Memorial HospitalUrine protein/creatinine ratioOrdered By: Tobi Liceadir on 94-15-8795Wzpxugs/Creatinine (U) [Ratio]0.91[facility] HospitalErythrocyte distribution width Auto (RBC) [Ratio]on 02-64-2250Ovwhavmdupb distribution width (RBC) [Ratio] Erythrocyte distribution width [Ratio] by Automated count11.0-15.0[facility] HospitalErythrocyte distribution width (RBC) [Ratio]13.8 % 11.0-15.0[facility] HospitalEstimated glomerular filtration rate (GFR) non- Americanon 56-17-1275FAH/1.73 sq M.predicted among non-blacks MDRD (S/P/Bld) [Vol rate/Area]Estimated glomerular filtration rate (GFR) non- AmericanLow>=60 mL/min/1.73m [address] [place], [place] [address]GFR/1.73 sq M.predicted among non-blacks MDRD (S/P/Bld) [Vol rate/Area]21 mL/min/{1.73_m2}Low>=60 mL/min/1.[address]m [address] [place] [address] Hematocrit Auto (Bld) [Volume fraction]on 10-53-4927Tfpaswoevv (Bld) [Volume fraction]Hematocrit [Volume Fraction] of Blood by Automated count42.0-54.0 [facility] HospitalHematocrit (Bld) [Volume fraction]44.4 % 42.0-54.0[facility] HospitalHemoglobin [Mass/volume] in Bloodon 26-65-9744Roeomiyopy (Bld) [Mass/Vol]Hemoglobin [Mass/volume] in Blood14.0-18.0 [facility] HospitalHemoglobin (Bld) [Mass/Vol]15.0 g/dL14.0-18.0 [facility] HospitalLaboratory - Chemistry and Chemistry - challengeon 04-55-4952Rmtitnv [Mass/Vol]3.7 g/dL3.4-5.0[facility] HospitalCalcium [Mass/Vol]9.1 mg/dL8.5-10.1FWyandot Memorial HospitalChloride [Moles/Vol]102 mmol/D96-027OakebohoyMercy Health [facility] HospitalCO2 [Moles/Vol]29.4 mmol/L21.0-32.0[facility] HospitalCreatinine [Mass/Vol]2.94 mg/dLHigh0.70-1.30[facility] HospitalGFR/1.73 sq M.predicted MDRD (S/P/Bld) [Vol rate/Area]25 mL/min/{1.73_m2}Low>=60 mL/min/1.73m 2FWyandot Memorial HospitalGlucose [Mass/Vol]102 mg/bH30-094 [facility] HospitalMagnesium [Mass/Vol]2.1 mg/dL1.8-2.4FWyandot Memorial HospitalPotassium [Moles/Vol]3.8 mmol/L3.5-5.1FMercy Health Anderson Hospitalodium [Moles/Vol]142 mmol/K916-169ZzsgocrteMercy Health [facility]ana HospitalUrate [Mass/Vol]12.5 mg/dLHigh3.5-7.2FWyandot Memorial HospitalUrea nitrogen [Mass/Vol]49.0 mg/dLHigh7.0-18.0[facility] HospitalUrea nitrogen/Creatinine [Mass ratio]16.7 mg/mgMercy Health [facility] Bilirubin Ql (U)NegativeNEGATIVEMercy Health [facility] HospitalGlucose (U) [Mass/Vol]NegativeNEGATIVEMercy Health [facility] HospitalKetones Ql (U) NegativeNEGATIVEMercy Health [facility] HospitalpH (U)6.0 [pH]5.0-9.0[facility] Southpecific gravity (U) [Rel density]1.0101.005-1.025 [facility] HospitalUrobilinogen Qn (U)0.2 {Peri'U}/dL0.2-1.0 [facility] HospitalLaboratory - Specimen informationon 06-24-2024 Appearance (U)CLEARCLEARFWyandot Memorial HospitalColor (U)LT. YELLOW YELLOWMercy Health U[facility] HospitalLaboratory - Urinalysison 06-24-2024 Leukocyte esterase Test strip Ql (U)MODERATEAbnormalNEGATIVEMercy Health [facility] HospitalMucus Ql (Urine sed)NONE SEENNONE SEENMercy Health [facility] HospitalNitrite Ql (U)PositiveAbnormalNEGATIVEMercy Health [facility] Protein (U) [Mass/Vol]15.7 mg/dLHigh<=11.9[facility] Protein Ql (U)NegativeNEG/TRACEMercy Health [facility] HospitalLeukocytes [#/volume] corrected for nucleated erythrocytes in Blood by Automated counon 81-96-5635NIV corrected for nucl RBC Auto (Bld) [#/Vol]Leukocytes [#/volume] corrected for nucleated erythrocytes in Blood by Automated coun4.0-11.0[facility] HospitalWBC corrected for nucl RBC Auto (Bld) [#/Vol]7.6 10 3/uL 4.0-11.0[facility] Auto (RBC) [Entitic mass]on 13-33-7367VIB (RBC) [Entitic mass]MCH [Entitic mass] by Automated count25.9-34.0 [facility] (RBC) [Entitic mass]30.1 pg25.9-34.0 [facility] HospitalHC Auto (RBC) [Mass/Vol]on 17-91-1917YAYO (RBC) [Mass/Vol]MCHC [Mass/volume] by Automated count29.9-35.2FTrumbull Regional Medical CenterHC (RBC) [Mass/Vol]33.8 g/dL29.9-35.2FWyandot Memorial HospitalMCV Auto (RBC) [Entitic vol]on 30-20-6328NHF (RBC) [Entitic vol]MCV [Entitic volume] by Automated count80.0-94.0[facility]riners HospitalV (RBC) [Entitic vol]89.0 fL80.0-94.0[facility] HospitalNo Panel Informationon 816709-Yqcrcsw Vitamin D Total37.9 ng/mLMercy Health Urbana HospitalComment on above:<20 ng/mL Vit D liyoaqqyk74-<30 ng/mL Vit D zychrveoejds85-622 ng/mL Vit D sufficient>100 ng/mL Potential Toxicity Parathyroid Hormone (Intact)93 pg/fHAlkwllco17-05OkeetymxgMercy Health U[facility]ana HospitalComment on above:Performed at: - [employer] [id number] Director: Polo Goldberg PhD, Phone: [phone] Phosphorus Level3.3 mg/dL2.6-4.7FWyandot Memorial HospitalUrine Bacteria LARGE #/HPFAbnormalNONE SEENMercy Health Urbana HospitalUrine Occult Blood TRACE-INEGATIVEMercy Health [facility]ana HospitalUrine Other CastsNONE SEEN #/LPF NONE [facility] CenterUrine Other CrystalsNone Seen #/HPF None [facility] HospitalUrine Random Wscekdxozy97.37 mg/dL 20.00-300.00[facility] HospitalUrine RBCNONE SEEN #/HPF0-2 [facility] HospitalUrine Squamous Epithelial CellsRARE #/LPF NONE/RAREMercy Health [facility]ana HospitalUrine JXJ46-04 #/HPFAbnormalNONE SEEN [facility] HospitalPlatelet mean volume Auto (Bld) [Entitic vol]on 22-38-7664Xpqizlqu mean volume (Bld) [Entitic vol]Platelet mean volume [Entitic volume] in Blood by Automated countLow9.5-13.5FWyandot Memorial Hospital Platelet mean volume (Bld) [Entitic vol]9.3 fLLow9.5-13.5FWyandot Memorial HospitalPlatelets Auto (Bld) [#/Vol]on 70-99-8314Ihfvphpfp (Bld) [#/Vol] Platelets [#/volume] in Blood by Automated pchog112-660VcrtyvdxrMercy Health Urbana HospitalPlatelets (Bld) [#/Vol]204 10 3/xK492-967VzuqyuzwjMercy Health [facility]ana HospitalRBC Auto (Bld) [#/Vol]on 37-48-4837LMK (Bld) [#/Vol]Erythrocytes [#/volume] in Blood by Automated count4.70-6.10[facility] RBC (Bld) [#/Vol]4.99 10 6/uL4.70-6.10[facility] Southerum or plasma anion gap determinationon 18-28-3358Wqabw gap [Moles/Vol]Serum or plasma anion gap determinationMercy Health [facility]ana HospitalAnion gap [Moles/Vol] 14.4 mmol/LFWyandot Memorial HospitalUrine protein/creatinine ratioon 96-84-4389Tjzeztn/Creatinine (U) [Ratio]Urine protein/creatinine ratioMercy Health U[facility] HospitalProtein/Creatinine (U) [Ratio]0.28[facility] HospitalEstimated glomerular filtration rate (GFR) non- Americanon 25-90-4319MLA/1.73 sq M.predicted among non-blacks MDRD (S/P/Bld) [Vol rate/Area]Estimated glomerular filtration rate (GFR) non- AmericanLow>=60 mL/min/1.73m 2FWyandot Memorial HospitalLaboratory - Chemistry and Chemistry - challengeon 65-11-3504Vxpgphj [Mass/Vol]4.0 g/dL3.4-5.0[facility] HospitalCalcium [Mass/Vol]9.3 mg/dL8.5-10.1FWyandot Memorial HospitalChloride [Moles/Vol]103 mmol/D05-037TogxvsoajMercy Health [facility] HospitalCO2 [Moles/Vol]32.8 mmol/LHigh21.0-32.0[facility] Creatinine [Mass/Vol]3.11 mg/dLHigh0.70-1.30[facility] GFR/1.73 sq M.predicted MDRD (S/P/Bld) [Vol rate/Area]24 mL/min/{1.73_m2}Low>=60 mL/min/1.73m 2FWyandot Memorial HospitalGlucose [Mass/Vol]81 mg/uA89-342 [facility] HospitalMagnesium [Mass/Vol]2.3 mg/dL1.8-2.4FWyandot Memorial HospitalPotassium [Moles/Vol]4.3 mmol/L3.5-5.1FMercy Health Anderson Hospitalodium [Moles/Vol]142 mmol/W291-864JmxscsbfrMercy Health [facility] HospitalUrate [Mass/Vol]12.5 mg/dLHigh3.5-7.2FWyandot Memorial HospitalUrea nitrogen [Mass/Vol]48.0 mg/dLHigh7.0-18.0[facility] HospitalUrea nitrogen/Creatinine [Mass ratio]15.4 mg/mgMercy Health [facility] HospitalNo Panel Informationon 271468-Jydchyz Vitamin D Total41.2 ng/mLMercy Health U[facility] HospitalComment on above:<20 ng/mL Vit D yiscklaxv62-<30 ng/mL Vit D flbqfnphooou53-501 ng/mL Vit D sufficient>100 ng/mL Potential Toxicity Parathyroid Hormone (Intact)108 pg/uXNeospvqq76-71YaesplfyfMercy Health [facility] HospitalComment on above:Performed at: [place] [address] [id number] Director: Polo Goldberg PhD, Phone: [phone] Phosphorus Level3.5 mg/dL2.6-4.7FMercy Health Anderson Hospitalerum or plasma anion gap determinationon 51-88-1379Ipfaj gap [Moles/Vol]Serum or plasma anion gap determinationMercy Health [facility] HospitalBasophils Auto (Bld) [#/Vol]on 96-16-5097Awihdtlqo (Bld) [#/Vol]Automated basophil count0.0-0.1FWyandot Memorial HospitalBasophils/100 WBC Auto (Bld)on 44-00-4003Ucpyhnsvl/100 WBC (Bld)Automated basophil %0.2-2.0[facility] Eosinophils/100 WBC Auto (Bld)on 53-50-0274Ascjwwczeuh/100 WBC (Bld)Automated eosinophil %High0.9-7.0[facility] HospitalErythrocyte distribution width Auto (RBC) [Ratio]on 85-71-8472Fxkqrmgmlty distribution width (RBC) [Ratio]Erythrocyte distribution width [Ratio] by Automated count11.0-15.0 [facility] HospitalEstimated glomerular filtration rate (GFR) non- Americanon 27-81-3780POM/1.73 sq M.predicted among non-blacks MDRD (S/P/Bld) [Vol rate/Area]Estimated glomerular filtration rate (GFR) non- AmericanLow>=60 mL/min/1.73m [address] [place], [place] [address]Hematocrit Auto (Bld) [Volume fraction]on 22-22-5721Qhzotxulwz (Bld) [Volume fraction]Hematocrit [Volume Fraction] of Blood by Automated count42.0-54.0[facility] HospitalHemoglobin [Mass/volume] in Bloodon 33-12-4225Cdkwjbenaf (Bld) [Mass/Vol] Hemoglobin [Mass/volume] in Blood14.0-18.0[facility] Laboratory - Chemistry and Chemistry - challengeon 99-77-9690Ptnurkm [Mass/Vol] 9.0 mg/dL8.5-10.1FWyandot Memorial HospitalChloride [Moles/Vol]102 mmol/L 98-107[facility] HospitalCO2 [Moles/Vol]26.8 mmol/L21.0-32.0 [facility] HospitalCreatinine [Mass/Vol]3.10 mg/dLHigh0.70-1.30 [facility] HospitalFerritin [Mass/Vol]231.0 ng/mL26.0-388.0 [facility] HospitalGFR/1.73 sq M.predicted MDRD (S/P/Bld) [Vol rate/Area]24 mL/min/{1.73_m2}Low>=60 mL/min/1.73m 2FWyandot Memorial HospitalGlucose [Mass/Vol]130 mg/xEOtxt34-727DsnmcqdzdMercy Health [facility] Potassium [Moles/Vol]4.0 mmol/L3.5-5.1FMercy Health Anderson Hospitalodium [Moles/Vol]140 mmol/G109-885PgmyfrkgyMercy Health [facility] HospitalUrea nitrogen [Mass/Vol]42.0 mg/dLHigh7.0-18.0[facility] HospitalUrea nitrogen/Creatinine [Mass ratio]13.5 mg/mgMercy Health [facility] Hospital Laboratory - Hematology and Cell countson 53-28-2998Bqbaqiqm granulocytes/100 WBC (Bld)0.4 %0.0-0.5FWyandot Memorial HospitalLeukocytes [#/volume] corrected for nucleated erythrocytes in Blood by Automated counon 43-74-8505IKJ corrected for nucl RBC Auto (Bld) [#/Vol]Leukocytes [#/volume] corrected for nucleated erythrocytes in Blood by Automated coun4.0-11.0[facility] HospitalLymphocytes Auto (Bld) [#/Vol]on 14-88-6359Amwuheapgpu (Bld) [#/Vol]Lymphocytes [#/volume] in Blood by Automated count1.2-3.8[facility] HospitalLymphocytes/100 WBC Auto (Bld)on 05-07-2024 Lymphocytes/100 WBC (Bld)Lymphocytes/100 leukocytes in Blood by Automated count 20.5-60.0[facility] Auto (RBC) [Entitic mass]on 27-94-7768SVW (RBC) [Entitic mass]MCH [Entitic mass] by Automated count25.9-34.0 [facility] HospitalMCHC Auto (RBC) [Mass/Vol]on 21-69-5250MTEP (RBC) [Mass/Vol]MCHC [Mass/volume] by Automated count29.9-35.2FWyandot Memorial HospitalMCV Auto (RBC) [Entitic vol]on 00-28-6914WSS (RBC) [Entitic vol] MCV [Entitic volume] by Automated count80.0-94.0[facility] HospitalMonocytes Auto (Bld) [#/Vol]on 09-97-4609Cdalhounx (Bld) [#/Vol]Automated blood monocyte count0.3-0.8[facility] HospitalMonocytes/100 WBC Auto (Bld)on 84-45-1698Twfibynsl/100 WBC (Bld)Automated monocyte %1.7-12.0 [facility] HospitalNeutrophils Auto (Bld) [#/Vol]on 05-07-2024 Neutrophils (Bld) [#/Vol]Neutrophils [#/volume] in Blood by Automated count 1.4-6.5FWyandot Memorial HospitalNeutrophils/100 WBC Auto (Bld)on 23-59-1717Kpknicpnmqy/100 WBC (Bld)Automated neutrophil %43.0-75.0[facility] HospitalNo Panel Informationon 85-33-4685Koazumszuvw # (Auto)0.5 10 3/uL0.0-0.7FWyandot Memorial HospitalImmature Granulocyte # (Auto)0.03 10 3/uL0.00-0.03[facility] HospitalPlatelet mean volume Auto (Bld) [Entitic vol]on 24-69-7191Nyxqnrtm mean volume (Bld) [Entitic vol]Platelet mean volume [Entitic volume] in Blood by Automated count9.5-13.5FWyandot Memorial HospitalPlatelets Auto (Bld) [#/Vol]on 68-06-0273Kkrdadujn (Bld) [#/Vol]Platelets [#/volume] in Blood by Automated -410EawwqlwgxMercy Health Urbana HospitalRBC Auto (Bld) [#/Vol]on 43-70-3662INH (Bld) [#/Vol]Erythrocytes [#/volume] in Blood by Automated count4.70-6.10[facility] Serum or plasma anion gap determinationon 30-44-3719Emxcm gap [Moles/Vol]Serum or plasma anion gap determinationMercy Health Urbana HospitalECG 12 [place] 60-92-4949Teqs sinus bradycardiaCPDayton Osteopathic Hospital Work Phone: Estimated glomerular filtration rate (GFR) non- Americanon 92-19-0399KYF/1.73 sq M.predicted among non-blacks MDRD (S/P/Bld) [Vol rate/Area]Estimated glomerular filtration rate (GFR) non- Low>=60 mL/min/1.73m 2FWyandot Memorial HospitalLaboratory - Chemistry and Chemistry - challengeon 40-50-2855Osohjfh [Mass/Vol]9.4 mg/dL8.5-10.1 [facility] HospitalChloride [Moles/Vol]102 mmol/L99-001DampesyweMercy Health Urbana HospitalCO2 [Moles/Vol]31.3 mmol/L21.0-32.0[facility] HospitalCreatinine [Mass/Vol]3.51 mg/dLHigh0.70-1.30[facility]rbana HospitalGFR/1.73 sq M.predicted MDRD (S/P/Bld) [Vol rate/Area]21 mL/min/{1.73_m2}Low>=60 mL/min/1.73m 2FWyandot Memorial HospitalGlucose [Mass/Vol]125 mg/zLBime01-582ExoahymayMercy Health Urbana HospitalPotassium [Moles/Vol]4.8 mmol/L3.5-5.1FMercy Health Anderson Hospitalodium [Moles/Vol] 142 mmol/D709-969MoyzrqqxrMercy Health Urbana HospitalUrea nitrogen [Mass/Vol]41.0 mg/dLHigh7.0-18.0[facility]ana HospitalUrea nitrogen/Creatinine [Mass ratio]11.7 mg/mgPremier Health Miami Valley Hospital Southerum or plasma anion gap determinationon 08-45-2547Xjckl gap [Moles/Vol]Serum or plasma anion gap determinationMercy Health Urbana HospitalAlbumin [Mass/volume] in Serum or Plasma by Bromocresol green (BCG) dye binding methoOrdered By: Felicia Aguilar on 94-43-7861Nnvktip BCG dye [Mass/Vol]Albumin [Mass/volume] in Serum or Plasma by Bromocresol green (BCG) dye binding metho3.5-5.7FWyandot Memorial HospitalCalcium [Mass/volume] in Serum or PlasmaOrdered By: Felicia Aguilar 24-14-8711Sleqohw [Mass/Vol]Calcium [Mass/volume] in Serum or Plasma8.6-10.3 [facility] HospitalCarbon dioxide, total [Moles/volume] in Serum or PlasmaOrdered By: Felicia Aguilar 19-73-9682DP9 [Moles/Vol]Carbon dioxide, total [Moles/volume] in Serum or Divyyj02.0-31.0[facility]ana HospitalChloride [Moles/volume] in Serum or PlasmaOrdered By: Felicia Aguilar 34-88-1589Jocyfrfz [Moles/Vol]Chloride [Moles/volume] in Serum or Fwztge42-348 [facility] HospitalCreatinine [Mass/volume] in Serum or Plasma Ordered By: Felicia Aguilar on 28-78-7168Fvljczeyyb [Mass/Vol]Creatinine [Mass/volume] in Serum or PlasmaHigh0.70-1.30[facility] Creatinine [Mass/volume] in UrineOrdered By: Felicia Aguilar on 04-18-2024 Creatinine (U) [Mass/Vol]Creatinine [Mass/volume] in UrineMercy Health Urbana HospitalComment on above:No reference range establishedCreatinine, Urine (Random)on 84-23-3821Dsnkjnkrjm, Urine (Random)84.00 mg/dLNormBayfront Health St. Petersburg Emergency Room Physician GroupComment on above:Result Comment: No reference range established Performed By: #### BMP, CBCNO #### [facility] [address] [id number] USAGlucose [Mass/volume] in Serum or PlasmaOrdered By: Felicia Aguilar on 43-54-4174Zwgszcp [Mass/Vol]Glucose [Mass/volume] in Serum or Plasma Wgru81-778CqunhishoMercy Health Urbana HospitalComment on above:ADA recommended reference rangeRandom Glucose Reference Range is dependent on time and content of last meal. Glucose of more than 200 mg/dL in a nonstressed, ambulatory subject supports the diagnosisof Diabetes Mellitus.No Panel InformationOrdered By: Felicia Aguilar on 16-79-9188Gbckwkmys GFR (CKD-EPI)19.726 mL/MinMercy Health Urbana HospitalPharmacy Creatinine Clearance (Chem26.05Mer[facility]rbana HospitalPhosphate [Mass/volume] in Serum or PlasmaOrdered By: Felicia Aguilar on 14-81-8862Wlmybwcvk [Mass/Vol]Phosphate [Mass/volume] in Serum or Plasma2.5-4.5FWyandot Memorial HospitalPotassium [Moles/volume] in Serum or PlasmaOrdered By: Felicia Aguilar on 29-42-2486Xxufblfwp [Moles/Vol] Potassium [Moles/volume] in Serum or Plasma3.5-5.1FWyandot Memorial HospitalComment on above:Hemolysis is present at a level that could interfere with the result.Contact lab if redraw is requiredRenal Function Panelon 04-18-2024 Albumin [Mass/Vol]3.8 g/dLNormal3.5-5.7The [facility] Physician GroupComment on above:Performed By: #### CUU, ADDONUAPLUS #### [facility] [address] [place] [address] USAAnion gap [Moles/Vol]12.6 mmol/LNormal6.0-15.0The [facility] Physician GroupComment on above:Performed By: #### BRIONNA ADDONUAPLUS #### [place] [address] USACalcium [Mass/Vol]9.3 mg/dLNormal8.6-10.3The [facility] Physician GroupComment on above:Performed By: #### BRIONNA ADDONUAPLUS #### [place] [address] USAChloride [Moles/Vol]102 mmol/UJtyked11-963Krf [facility] Physician GroupComment on above:Performed By: #### BRIONNA ADDONUAPLUS #### [place] [address] USACO2 [Moles/Vol]24.1 mmol/DKicjfb26.0-31.0The [facility] Physician GroupComment on above:Performed By: #### BRIONNA ADDONUAPLUS #### [place] [address] USACreatinine [Mass/Vol]3.08 mg/dLHigh0.70-1.30The [facility] Physician GroupComment on above:Performed By: #### BRIONNA ADDONUAPLUS #### [place] [address] USACreatinine Clr Calc Cgbcpdfm82.05NoAtrium Health Harrisburg Physician GroupComment on above:Result Comment: PERFORMED BY: [place] [address] PATHOLOGIST DIRECTOR CHEMISTRY RADHA MANNING M.D.Performed By: #### BRIONNA ADDONUAPLUS #### [place] [address] USAEstimated GFR19.726 mL/MinNoAtrium Health Harrisburg Physician GroupComment on above:Performed By: #### BRIONNA ADDONUAPLUS #### [place] [address] USAGlucose [Mass/Vol]141 mg/qFUkqx85-451Sqm [facility] Physician GroupComment on above:Result Comment: Random Glucose Reference Range is dependent on time and content of last meal. Glucose of more than 200 mg/dL in a nonstressed, ambulatory subject supports the diagnosis of Diabetes Mellitus. ADA recommended reference rangePerformed By: #### CUU, ADDONUAPLUS #### [facility] [address] [place] [address] USAPhosphate [Mass/Vol]3.2 mg/dLNormal2.5-4.5The [facility] Physician GroupComment on above:Performed By: #### CUU, ADDONUAPLUS #### [place] [address] USAPotassium [Moles/Vol]4.7 mmol/LNormal3.5-5.1The [facility] Physician GroupComment on above:Result Comment: Hemolysis is present at a level that could interfere with the result. Contact lab if redraw is requiredPerformed By: #### BRIONNA, ADDONUAPLUS #### [facility] [address] [place] [address] USASodium [Moles/Vol]134 mmol/JXkm764-583Fhh [facility] Physician GroupComment on above:Performed By: #### BRIONNA, ADDONUAPLUS #### [place] [address] USAUrea nitrogen [Mass/Vol]50 mg/dLHigh7-25The [facility] Physician GroupComment on above:Performed By: #### BRIONNA, ADDONUAPLUS #### [place] [address] USASerum or plasma anion gap determinationOrdered By: Felicia Aguilar on 93-86-4239Lctxz gap [Moles/Vol]Serum or plasma anion gap determination 6.0-15.0[facility] Hospital Southodium [Moles/volume] in Serum or PlasmaOrdered By: Felicia Aguilar on 49-50-0783Xnbqni [Moles/Vol]Sodium [Moles/volume] in Serum or HefaseHra585-955EgkyvypzdMercy Health Urbana Hospital Sodium [Moles/volume] in UrineOrdered By: Felicia Aguilar on 29-14-2476Xqitna (U) [Moles/Vol]Sodium [Moles/volume] in UrineMercy Health Urbana Hospital Comment on above:No reference range establishedSodium, Urine (Random)on 21-61-8626Btjyxq (U) [Moles/Vol]32 mmol/LNormalThe [facility] Group Comment on above:Result Comment: No reference range established PERFORMED BY: [facility] [address] [facility] [place] [address] PATHOLOGIST DIRECTOR CHEMISTRY RADHA MANNING M.D.Performed By: #### BMP, CBCNO #### [facility] [address] [place] [address] USAUrea nitrogen [Mass/volume] in Serum or PlasmaOrdered By: Felicia Aguilar on 34-68-1113Hwhc nitrogen [Mass/Vol]Urea nitrogen [Mass/volume] in Serum or Plasma31 Cooper StreetErythrocyte distribution width Auto (RBC) [Ratio]Ordered By: Mihaidali Covarrubiasomar on 04-17-2024 Erythrocyte distribution width (RBC) [Ratio]Erythrocyte distribution width [Ratio] by Automated count12.0-14.8[facility]ana HospitalHematocrit Auto (Bld) [Volume fraction]Ordered By: Mihaidali Covarrubiasomar on 81-02-0825Qerjezsnlm (Bld) [Volume fraction]Hematocrit [Volume Fraction] of Blood by Automated count 38.8-50.0[facility] HospitalHemoglobin [Mass/volume] in Blood Ordered By: Jersey Covarrubiasomar on 94-41-0031Ipxqoeroaf (Bld) [Mass/Vol]Hemoglobin [Mass/volume] in Blood13.0-17.0[facility]ana HospitalHemogram CBC Without Diffon 68-94-1677Kxsxehisrts distribution width (RBC) [Ratio]14.7 % Ljqgtn09.0-14.8The [facility] Physician GroupComment on above:Performed By: #### CUU, ADDONUAPLUS #### [facility] [address] [id number] USAHematocrit (Bld) [Volume fraction]42.0 %Gmdpcq55.8-50.0The [facility] Physician GroupComment on above:Performed By: #### CUU, ADDONUAPLUS #### [place] [address] USAHemoglobin (Bld) [Mass/Vol]14.5 g/oXFbqwhm27.0-17.0The [facility] Physician GroupComment on above:Performed By: #### CUU, ADDONUAPLUS #### [address]H (RBC) [Entitic mass]30.2 suMzyrhb21.5-35.2The [facility] Physician GroupComment on above:Performed By: #### CUBarbara, ADDONUAPLUS #### [address]V (RBC) [Entitic vol]87.5 qSJbxoum89.5-101The [facility] Physician GroupComment on above:Performed By: #### CUBarbara, ADDONUAPLUS #### [place] [address] USAMean Corpuscular HGB Conc34.5 g/dUPjfgbw01.5-35.6The [facility] Physician GroupComment on above:Performed By: #### CUBarbara, ADDONUAPLUS #### [place] [address] USAPlatelet mean volume (Bld) [Entitic vol]7.6 fLNormal 6.6-10.1The [facility] Physician GroupComment on above:Result Comment: PERFORMED BY: [place] [address] PATHOLOGIST DIRECTOR CHEMISTRY RADHA MANNING M.D.Performed By: #### CUU, ADDONUAPLUS #### [place] [address] USAPlatelets (Bld) [#/Vol]283 10*3/gOEdvomh119-611Ziq [facility] Physician GroupComment on above:Performed By: #### CUU, ADDONUAPLUS #### [address] [address] [place] [address] USARBC (Bld) [#/Vol]4.80 10*6/uLNormal3.90-5.60The [facility] Physician GroupComment on above:Performed By: #### CUU, ADDONUAPLUS #### [facility] [address] [place] [address] USAWBC (Bld) [#/Vol]10.0 10*3/uLNormal4.1-10.5The [facility] Physician GroupComment on above:Performed By: #### CUU, ADDONUAPLUS #### [facility] [address] [place] [address] USALeukocytes [#/volume] corrected for nucleated erythrocytes in Blood by Automated counOrdered By: Obsusandali Covarrubiasomar on 57-68-1952QOO corrected for nucl RBC Auto (Bld) [#/Vol]Leukocytes [#/volume] corrected for nucleated erythrocytes in Blood by Automated coun4.1-10.5FFirelands Regional [facility] Center Auto (RBC) [Entitic mass]Ordered By: Obsusandali Covarrubiasomar on 86-21-2156TEV (RBC) [Entitic mass]MCH [Entitic mass] by Automated count27.5-35.2 [facility] HospitalHC Auto (RBC) [Mass/Vol]Ordered By: Obsusandali Covarrubiasomar on 72-72-8124KQAV (RBC) [Mass/Vol]MCHC [Mass/volume] by Automated count 32.5-35.6FWyandot Memorial HospitalMCV Auto (RBC) [Entitic vol]Ordered By: Obsusandah Daromar on 51-59-1107WME (RBC) [Entitic vol]MCV [Entitic volume] by Automated count83.5-101Mer[facility] HospitalPlatelet mean volume Auto (Bld) [Entitic vol]Ordered By: Obsusandah Daromar on 72-94-7449Iuykqery mean volume (Bld) [Entitic vol]Platelet mean volume [Entitic volume] in Blood by Automated count6.6-10.1FWyandot Memorial HospitalPlatelets Auto (Bld) [#/Vol]Ordered By: Obsusandah Daromar on 24-37-9354Yrsdnkayv (Bld) [#/Vol]Platelets [#/volume] in Blood by Automated iqyjy027-686EildkqyqiMercy Health Urbana Hospital RBC Auto (Bld) [#/Vol]Ordered By: Obsusandali Daromar on 21-89-7278YGM (Bld) [#/Vol] Erythrocytes [#/volume] in Blood by Automated count3.90-5.60[facility] HospitalRenal Function Panelon 56-23-6339Dhqzemd [Mass/Vol]3.7 g/dLNormal 3.5-5.7The [facility] Physician GroupComment on above:Performed By: #### NICHOLE, CBCNO #### [place] [address] USAAnion gap [Moles/Vol]13.3 mmol/LNormal6.0-15.0The [facility] Physician GroupComment on above:Performed By: #### NICHOLE, CBCNO #### [place] [address] USACalcium [Mass/Vol]9.4 mg/dLNormal8.6-10.3The [facility] Physician GroupComment on above:Performed By: #### NICHOLE, CBCNO #### [place] [address] USAChloride [Moles/Vol]103 mmol/ENmlrhj27-378Jgv [facility] Physician GroupComment on above:Performed By: #### NICHOLE, CBCNO #### [place] [address] USACO2 [Moles/Vol]25.0 mmol/LKprrem00.0-31.0The [facility] Physician GroupComment on above:Performed By: #### BMP, CBCNO #### [place] [address] USACreatinine [Mass/Vol]3.26 mg/dLSignificant change up 0.70-1.30The [facility] Physician GroupComment on above:Performed By: #### BMP, CBCNO #### [place] [address] USACreatinine Clr Calc Uoulgddp78.61NormBayfront Health St. Petersburg Emergency Room Physician GroupComment on above:Result Comment: PERFORMED BY: [place] [address] PATHOLOGIST DIRECTOR CHEMISTRY RADHA MANNING M.D.Performed By: #### BMP, CBCNO #### [place] [address] USAEstimated GFR18.426 mL/MinNormBayfront Health St. Petersburg Emergency Room Physician GroupComment on above:Performed By: #### BMP, CBCNO #### [place] [address] USAGlucose [Mass/Vol]100 mg/wZCyzmon81-342Rwj [facility] Physician GroupComment on above:Result Comment: Random Glucose Reference Range is dependent on time and content of last meal. Glucose of more than 200 mg/dL in a nonstressed, ambulatory subject supports the diagnosis of Diabetes Mellitus. ADA recommended reference rangePerformed By: #### BMP, CBCNO #### [place] [address] USAPhosphate [Mass/Vol]4.4 mg/dLNormal2.5-4.5The [facility] Physician GroupComment on above:Performed By: #### BMP, CBCNO #### [place] [address] USAPotassium [Moles/Vol]4.3 mmol/LNormal3.5-5.1The [facility] Physician GroupComment on above:Performed By: #### BMP, CBCNO #### [place] [address] USASodium [Moles/Vol]137 mmol/KJdjmgs262-549Osw [facility] Physician GroupComment on above:Performed By: #### BMP, CBCNO #### [place] [address] USAUrea nitrogen [Mass/Vol]53 mg/dLHigh7-25The [facility] Physician GroupComment on above:Performed By: #### BMP, CBCNO #### [address] [address] USAHemogram CBC Without Diffon 89-03-6845Uvbnxkefprb distribution width (RBC) [Ratio]14.2 %Whjaso82.0-14.8The [facility] Physician GroupComment on above:Performed By: #### CUU, ADDONUAPLUS #### [place] [address] USAHematocrit (Bld) [Volume fraction]43.4 %Mykzjl30.8-50.0The [facility] Physician GroupComment on above:Performed By: #### CUU, ADDONUAPLUS #### [place] [address] USAHemoglobin (Bld) [Mass/Vol]15.0 g/qUUzwiky74.0-17.0The [facility] Physician GroupComment on above:Performed By: #### CUU, ADDONUAPLUS #### [address] StreetMCH (RBC) [Entitic mass]30.2 avEtusvc35.5-35.2The [facility] Physician GroupComment on above:Performed By: #### CUU, ADDONUAPLUS #### [place] [address] USAMCV (RBC) [Entitic vol]87.2 zHHxhnsf77.5-101The [facility] Physician GroupComment on above:Performed By: #### CUU, ADDONUAPLUS #### [place] [address] USAMean Corpuscular HGB Conc34.6 g/gLQtsrth50.5-35.6The [facility] Physician GroupComment on above:Performed By: #### CUU, ADDONUAPLUS #### [place] [address] USAPlatelet mean volume (Bld) [Entitic vol]7.8 fLNormal 6.6-10.1The [facility] Physician GroupComment on above:Result Comment: PERFORMED BY: [place] [address] PATHOLOGIST DIRECTOR CHEMISTRY RADHA MANNING M.D.Performed By: #### CUU, ADDONUAPLUS #### [place] [address] USAPlatelets (Bld) [#/Vol]297 10*3/jVKvtmrw331-162Htt [facility] Physician GroupComment on above:Performed By: #### CUU, ADDONUAPLUS #### [place] [address] USARBC (Bld) [#/Vol]4.98 10*6/uLNormal3.90-5.60The [facility] Physician GroupComment on above:Performed By: #### CUU, ADDONUAPLUS #### [place] [address] USAWBC (Bld) [#/Vol]8.7 10*3/uLNormal4.1-10.5The [facility] Physician GroupComment on above:Performed By: #### CUU, ADDONUAPLUS #### [place] [address] USANM brianna perf SPECT rest stron 72-98-0722BX brianna perf SPECT rest [facility] [place] [address] Nuclear Medicine Report Signed Patient: Corwin Muller MR#: [id number] : 1945 Acct:[id number] Age/Sex: 79 / M ADM Date: 04/10/24 Loc: Room: [address] [place] [address] Type: ADM IN Attending Dr: Jersey Bess MD Copies to: MD Mely Templeton MD Obaydah M Daromar, MD Ordering Provider: Meyl Ken MD Date of Service: 04/15/24 NM/NM [...] Jayda Burgess M.D.04/16/2024 12:45 PM Dictation Location: [place] [address] Transcribed By: RK 04/16/24 1245 Dictated By: Jayda Burgess MD 04/16/24 1237 Signed By: 04/16/[address] Petersburg Emergency Room Physician GroupRenal Function Panelon 45-68-6968Bnpmiqq [Mass/Vol]3.6 g/dLNormal3.5-5.7The [facility] Comment on above:Performed By: #### J LUIS STATONPLUS #### [place] [id number] USAAnion gap [Moles/Vol]16.3 mmol/LHigh6.0-15.0The [facility] Physician GroupComment on above:Performed By: #### J LUIS STATONPLUS #### [facility] [address] [id number] USACalcium [Mass/Vol]9.1 mg/dLNormal8.6-10.3The [facility] Physician GroupComment on above:Performed By: #### J LUIS STATONPLUS #### [address] [address] USAChloride [Moles/Vol]104 mmol/RUtrpgn43-712Lac [facility] Physician GroupComment on above:Performed By: #### CUBarbara, ADDONUAPLUS #### [place] [address] USACO2 [Moles/Vol]21.6 mmol/QCkpecu83.0-31.0The [facility] Physician GroupComment on above:Performed By: #### CUU, ADDONUAPLUS #### [place] [address] USACreatinine [Mass/Vol]2.68 mg/dLHigh0.70-1.30The [facility] Physician GroupComment on above:Performed By: #### CUBarbara, ADDONUAPLUS #### [place] [address] USACreatinine Clr Calc Qnfgvusj01.94NormThe Jewish Hospitale [facility] Physician GroupComment on above:Result Comment: PERFORMED BY: [place] [address] PATHOLOGIST DIRECTOR CHEMISTRY RADHA MANNING M.D.Performed By: #### BRIONNA ADDONUAPLUS #### [place] [address] USAEstimated GFR23.310 mL/MinNoAtrium Health Harrisburg Physician [facility] RankinComment on above:Performed By: #### CUU, ADDONUAPLUS #### [place] [address] USAGlucose [Mass/Vol]99 mg/sSEmuvxc46-839Jct [facility] Physician GroupComment on above:Result Comment: Random Glucose Reference Range is dependent on time and content of last meal. Glucose of more than 200 mg/dL in a nonstressed, ambulatory subject supports the diagnosis of Diabetes Mellitus. ADA recommended reference rangePerformed By: #### CUU, ADDONUAPLUS #### [place] [address] USAPhosphate [Mass/Vol]3.6 mg/dLNormal2.5-4.5The [facility] Physician GroupComment on above:Performed By: #### CUU, ADDONUAPLUS #### [facility] [address] [place] [address] USAPotassium [Moles/Vol]3.9 mmol/LNormal3.5-5.1The [facility] Physician GroupComment on above:Result Comment: Hemolysis is present at a level that could interfere with the result. Contact lab if redraw is requiredPerformed By: #### CUU, ADDONUAPLUS #### [facility] [address] [place] [address] USASodium [Moles/Vol]138 mmol/RWribiv241-770Thq [facility] Physician GroupComment on above:Performed By: #### CUU, ADDONUAPLUS #### [facility] [address] [place] [address] USAUrea nitrogen [Mass/Vol]42 mg/dLHigh7-25The [facility] Physician GroupComment on above:Performed By: #### CUU, ADDONUAPLUS #### [facility] [address] [place] [address] USAAlanine aminotransferase [Enzymatic activity/volume] in Serum or PlasmaOrdered By: Obaydah Daromar on 47-10-1543PKM [Catalytic activity/Vol]Alanine aminotransferase [Enzymatic activity/volume] in Serum or Plasma7-52[facility] HospitalAlkaline phosphatase [Enzymatic activity/volume] in Serum or PlasmaOrdered By: Obaydah Daromar on 40-07-2670RGB [Catalytic activity/Vol]Alkaline phosphatase [Enzymatic activity/volume] in Serum or Csbviv25-939TztrafdalMercy Health Urbana HospitalAspartate aminotransferase [Enzymatic activity/volume] in Serum or PlasmaOrdered By: Obaydah Daromar on 05-39-9867ARC [Catalytic activity/Vol]Aspartate aminotransferase [Enzymatic activity/volume] in Serum or Tvbnfn19-67OsqjldczwMercy Health Urbana Hospital Bilirubin.total [Mass/volume] in Serum or PlasmaOrdered By: Obaydah Daromar on 46-01-0231Kcsiztucp [Mass/Vol]Bilirubin.total [Mass/volume] in Serum or Plasma 0.3-1.0[facility] HospitalComprehensive Metabolic Panelon 14-23-2854Tijacha [Mass/Vol]3.6 g/dLNormal3.5-5.7The [facility] Comment on above:Performed By: #### J LUIS STATONPLUS #### [place] [address] USAAlbumin/Globulin [Mass ratio]1.2 {ratio}NormalThe [facility] Physician GroupComment on above:Performed By: #### BRIONNA ADDONUAPLUS #### [facility] [address] [place] [address] USAALP [Catalytic activity/Vol]46 U/MBfhwun70-838Evu [facility] Physician GroupComment on above:Performed By: #### VENU STATONUAPLUS #### [place] [address] USAALT [Catalytic activity/Vol]27 U/LNormal7-52The [facility] Physician GroupComment on above:Performed By: #### SHERWIN STATONONUAPLUS #### [place] [address] USAAnion gap [Moles/Vol]11.5 mmol/LNormal6.0-15.0The [facility] Physician GroupComment on above:Performed By: #### SHERWIN STATONONUAPLUS #### [place] [address] USAAST [Catalytic activity/Vol]30 U/PVsqdso90-28Uzc [facility] Physician GroupComment on above:Performed By: #### SHERWIN STATONONUAPLUS #### [place] [address] USABilirubin [Mass/Vol]0.6 mg/dLNormal0.3-1.0The [facility] Physician GroupComment on above:Performed By: #### SHERWIN STATONONUAPLUS #### [facility] [address] [place] [address] USACalcium [Mass/Vol]9.2 mg/dLNormal8.6-10.3The [facility] Physician GroupComment on above:Performed By: #### BRIONNA ADDONUAPLUS #### [facility] [address] [place] [address] USAChloride [Moles/Vol]104 mmol/PLvnhxd78-678Dvi [facility] Physician GroupComment on above:Performed By: #### VENU STATONUAPLUS #### [facility] [address] [place] [address] USACO2 [Moles/Vol]26.6 mmol/GOasjfs27.0-31.0The [facility] Physician GroupComment on above:Performed By: #### SHERWIN STATONONUAPLUS #### [facility] [address] [place] [address] USACreatinine [Mass/Vol]2.58 mg/dLHigh0.70-1.30The [facility] Physician GroupComment on above:Performed By: #### VENU STATONUAPLUS #### [facility] [address] [place] [address] USACreatinine Clr Calc Haujyzef27.18NormBayfront Health [address] Petersburg Emergency Room Physician GroupComment on above:Performed By: #### SHERWIN STATONONUAPLUS #### [facility] [address] [place] [address] USAEstimated GFR24.398 mL/MinNoAtrium Health [facility]burg Physician [facility] Health RankinComment on above:Performed By: #### VENU STATONUAPLUS #### [facility] [address] [place] [address] USAGlobulin (S) [Mass/Vol]2.9 g/dLNoAtrium Health [facility]burg Physician [facility] RankinComment on above:Performed By: #### SHERWIN STATONONUAPLUS #### [facility] [address] [place] [address] USAGlucose [Mass/Vol]100 mg/pDQwyjic13-690Vxz [facility] Physician GroupComment on above:Result Comment: Random Glucose Reference Range is dependent on time and content of last meal. Glucose of more than 200 mg/dL in a nonstressed, ambulatory subject supports the diagnosis of Diabetes Mellitus. ADA recommended reference rangePerformed By: #### BRIONNA ADDONUAPLUS #### [facility] [address] [place] [address] USAPotassium [Moles/Vol]4.1 mmol/LNormal3.5-5.1The [facility] Physician GroupComment on above:Performed By: #### SHERWIN STATONONUAPLUS #### [place] [address] USAProtein [Mass/Vol]6.5 g/dLNormal6.4-8.9The [facility] Physician GroupComment on above:Performed By: #### BRIONNA ADDONUAPLUS #### [place] [address] USASodium [Moles/Vol]138 mmol/UDkuinr962-633Jmg [facility] Physician GroupComment on above:Performed By: #### SHERWIN STATONONUAPLUS #### [place] [address] USAUrea nitrogen [Mass/Vol]38 mg/dLHigh7-25The [facility] Physician GroupComment on above:Performed By: #### SHERWIN STATONONUAPLUS #### [place] [address] USAGlobulin Calc (S) [Mass/Vol]Ordered By: Jersey Bess on 07-90-7371Xprbnfda (S) [Mass/Vol]Serum globulin measurement by calculation (mass/volume)[facility] HospitalHemogram CBC Without Diffon 97-45-4151Rtutnohlkaa distribution width (RBC) [Ratio]14.0 %Nnacrd38.0-14.8The [facility] Physician GroupComment on above:Performed By: #### BRIONNA, ADDONUAPLUS #### [place] [address] USAHematocrit (Bld) [Volume fraction]42.5 %Pnuahx36.8-50.0The [facility] Physician GroupComment on above:Performed By: #### BRIONNA, ADDONUAPLUS #### [place] [address] USAHemoglobin (Bld) [Mass/Vol]14.8 g/jHLdsdao11.0-17.0The [facility] Physician GroupComment on above:Performed By: #### CUU, ADDONUAPLUS #### [facility] [address]H (RBC) [Entitic mass]30.3 jjMywgpk44.5-35.2The [facility] Physician GroupComment on above:Performed By: #### CUU, ADDONUAPLUS #### [place] [address] USAMCV (RBC) [Entitic vol]87.1 fQNsdzqo40.5-101The [facility] Physician GroupComment on above:Performed By: #### CUU, ADDONUAPLUS #### [place] [address] USAMean Corpuscular HGB Conc34.8 g/qKGlzuuf65.5-35.6The [facility] Physician GroupComment on above:Performed By: #### CUU, ADDONUAPLUS #### [place] [address] USAPlatelet mean volume (Bld) [Entitic vol]7.7 fLNormal 6.6-10.1The [facility] Physician GroupComment on above:Result Comment: PERFORMED BY: [place] [address] PATHOLOGIST DIRECTOR CHEMISTRY RADHA MANNING M.D.Performed By: #### CUU, ADDONUAPLUS #### [place] [address] USAPlatelets (Bld) [#/Vol]270 10*3/qJManlnw877-471Zhd [facility] Physician GroupComment on above:Performed By: #### CUU, ADDONUAPLUS #### [place] [address] USARBC (Bld) [#/Vol]4.88 10*6/uLNormal3.90-5.60The [facility] Physician GroupComment on above:Performed By: #### CUU, ADDONUAPLUS #### [place] [address] USAWBC (Bld) [#/Vol]8.5 10*3/uLNormal4.1-10.5The [facility] Physician GroupComment on above:Performed By: #### J LUIS STATONPLUS #### [facility] [address] [place] [address] USAMagnesiumon 55-26-1009Gobmfaaxg [Mass/Vol]2.1 mg/dLNormal 1.9-2.7The [facility] Physician GroupComment on above:Result Comment: PERFORMED BY: [place] [address] PATHOLOGIST DIRECTOR CHEMISTRY RADHA MANNING M.D.Performed By: #### TINO STATON #### [place] [address] USAMagnesium [Mass/volume] in Serum or PlasmaOrdered By: Tobi Monroy on 71-21-0152Znoxmxulo [Mass/Vol]Magnesium [Mass/volume] in Serum or Plasma1.9-2.7FWyandot Memorial HospitalNo Panel InformationOrdered By: Jayda Burgess on 46-51-4945GYLXVZWOYPREMIER [facility] [place] [address] [place] [address] Cardiac Stress Test Signed Patient: Corwin Muller MR#: [id number] : 1945 Date of Service:0 04/15/24 Age/Sex: 79 / M ADM Date: 5 Loc: Room: [address] [place] [address] Type: ADM IN Attending Dr: Jersey Bess [...] under a separate cover. Transcribed By: onelia 04/15/241524 Dictated By: Jayda Burgess MD 04/15/241524 Signed By: 04/15/24 1527 [facility] Work Phone: Protein [Mass/volume] in Serum or PlasmaOrdered By: Jersey Bess on 62-77-0174Zyveiqh [Mass/Vol]Protein [Mass/volume] in Serum or Plasma6.4-8.9[facility] HospitalRenal Function Panelon 04-15-2024 Phosphate [Mass/Vol]3.9 mg/dLNormal2.5-4.5The [facility] Physician GroupComment on above:Performed By: #### BRIONNA, VENUUAPLUS #### [facility] [address] [place] [address] USASerum or plasma albumin/globulin mass ratioOrdered By: Jersey Bess on 69-46-1815Bcchmra/Globulin [Mass ratio]Serum or plasma albumin/globulin mass ratioMercy Health Urbana HospitalBasic Metabolic Panelon 77-65-4632Kadqk gap [Moles/Vol]13.7 mmol/LNormal6.0-15.0The [facility] Physician GroupComment on above:Performed By: #### BMP, CBCNO #### [facility] [address] [place] [address] USACalcium [Mass/Vol]8.8 mg/dLNormal8.6-10.3The [facility] Physician GroupComment on above:Performed By: #### BMP, CBCNO #### [facility] [address] [place] [address] USAChloride [Moles/Vol]105 mmol/GOblqrd48-384Cds [facility] Physician GroupComment on above:Performed By: #### BMP, CBCNO #### [facility] [address] [place] [address] USACO2 [Moles/Vol]23.2 mmol/ZQltmqe61.0-31.0The [facility] Physician GroupComment on above:Performed By: #### BMP, CBCNO #### [facility] [address] [place] [address] USACreatinine [Mass/Vol]2.30 mg/dLHigh0.70-1.30The [facility] Physician GroupComment on above:Performed By: #### BMP, CBCNO #### [facility] [address] [place] [address] USACreatinine Clr Calc Obxxooxc31.97NormBayfront Health St. Petersburg Emergency Room Physician GroupComment on above:Result Comment: PERFORMED BY: [facility] [address] [place] [address] PATHOLOGIST DIRECTOR CHEMISTRY RADHA MANNING M.D.Performed By: #### BMP, CBCNO #### [facility] [address] [place] [address] USAEstimated GFR28.004 mL/MinNoAtrium Health [facility]burg Physician GroupComment on above:Performed By: #### BMP, CBCNO #### [facility] [address] [place] [address] USAGlucose [Mass/Vol]103 mg/mVNogk39-165Ytj [facility] Physician GroupComment on above:Result Comment: Random Glucose Reference Range is dependent on time and content of last meal. Glucose of more than 200 mg/dL in a nonstressed, ambulatory subject supports the diagnosis of Diabetes Mellitus. ADA recommended reference rangePerformed By: #### BMP, CBCNO #### [facility] [address] [place] [address] USAPotassium [Moles/Vol]3.9 mmol/LNormal3.5-5.1The [facility] Physician GroupComment on above:Performed By: #### BMP, CBCNO #### [facility] [address] [place] [address] USASodium [Moles/Vol]138 mmol/LEinqlz763-543Dwi [facility] Physician GroupComment on above:Performed By: #### BMP, CBCNO #### [facility] [address] [place] [address] USAUrea nitrogen [Mass/Vol]36 mg/dLHigh7-25The [facility] Physician GroupComment on above:Performed By: #### BMP, CBCNO #### [place] [address] USAHemogram CBC Without Diffon 97-80-7452Prdfvgomugz distribution width (RBC) [Ratio]14.1 %Cedzci09.0-14.8The [facility] Physician GroupComment on above:Performed By: #### BMP, CBCNO #### [place] [address] USAHematocrit (Bld) [Volume fraction]42.1 %Nnfqfc43.8-50.0The [facility] Physician GroupComment on above:Performed By: #### BMP, CBCNO #### [place] [address] USAHemoglobin (Bld) [Mass/Vol]14.6 g/yCAowqnz31.0-17.0The [facility] Physician GroupComment on above:Performed By: #### BMP, CBCNO #### [place] [address] USAMCH (RBC) [Entitic mass]30.3 neGlezgo74.5-35.2The [facility] Physician GroupComment on above:Performed By: #### BMP, CBCNO #### [place] [address] USAMCV (RBC) [Entitic vol]87.8 bJDtwzhs46.5-101The [facility] Physician GroupComment on above:Performed By: #### BMP, CBCNO #### [place] [address] USAMean Corpuscular HGB Conc34.6 g/pOKeyhrf39.5-35.6The [facility] Physician GroupComment on above:Performed By: #### BMP, CBCNO #### [place] [address] USAPlatelet mean volume (Bld) [Entitic vol]7.7 fLNormal 6.6-10.1The [facility] Physician GroupComment on above:Result Comment: PERFORMED BY: [place] [address] PATHOLOGIST DIRECTOR CHEMISTRY RADHA MANNING M.D.Performed By: #### BMP, CBCNO #### [place] [address] USAPlatelets (Bld) [#/Vol]278 10*3/zMOceoof275-721Mcc [facility] Physician GroupComment on above:Performed By: #### BMP, CBCNO #### [place] [address] USARBC (Bld) [#/Vol]4.80 10*6/uLNormal3.90-5.60The [facility] Physician GroupComment on above:Performed By: #### BMP, CBCNO #### [place] [address] USAWBC (Bld) [#/Vol]9.5 10*3/uLNormal4.1-10.5The [facility] Physician GroupComment on above:Performed By: #### BMP, CBCNO #### [place] [address] USABasophils Auto (Bld) [#/Vol]Ordered By: Jersey Bess on 77-14-2559Lgfenijrn (Bld) [#/Vol]Automated basophil count0.0-0.2FWyandot Memorial HospitalBasophils/100 WBC Auto (Bld)Ordered By: Obsusandali Covarrubiasomar on 30-74-7230Fvwchxeui/100 WBC (Bld)Automated basophil %.[facility] HospitalComplete Blood Count Auto Diffon 32-79-7959Rycktegex (Bld) [#/Vol] 0.0 10*3/uLNormal0.0-0.2The [facility] Physician [facility] RankinComment on above:Result Comment: PERFORMED BY: [place] [address] PATHOLOGIST DIRECTOR CHEMISTRY RADHA MANNING M.D.Performed By: #### CUU, ADDONUAPLUS #### [place] [address] USABasophils/100 WBC (Bld)0.4 %Normal.The [facility] Physician GroupComment on above:Performed By: #### CUU, ADDONUAPLUS #### [place] [address] USAEosinophils (Bld) [#/Vol]0.6 10*3/uLHigh0.0-0.45The [facility] Physician GroupComment on above:Performed By: #### CUU, ADDONUAPLUS #### [place] [address] USAEosinophils/100 WBC (Bld)6.7 %Normal.The [facility] Physician GroupComment on above:Performed By: #### CUU, ADDONUAPLUS #### [place] [address] USAErythrocyte distribution width (RBC) [Ratio]14.2 %Normal 12.0-14.8The [facility] Physician GroupComment on above:Performed By: #### CUU, ADDONUAPLUS #### [place] [address] USAHematocrit (Bld) [Volume fraction]40.8 %Caccta84.8-50.0The [facility] Physician GroupComment on above:Performed By: #### CUU, ADDONUAPLUS #### [place] [address] USAHemoglobin (Bld) [Mass/Vol]14.3 g/dWKirhyg73.0-17.0The [facility] Physician GroupComment on above:Performed By: #### CUU, ADDONUAPLUS #### [place] [address] USALymphocytes (Bld) [#/Vol]1.6 10*3/uLNormal1.00-4.8The [facility] Physician GroupComment on above:Performed By: #### CUU, ADDONUAPLUS #### [place] [address] USALymphocytes/100 WBC (Bld)18.6 %Normal.The [facility] Physician GroupComment on above:Performed By: #### CUU, ADDONUAPLUS #### [address] (RBC) [Entitic mass]30.2 kfCyksrh02.5-35.2The [facility] Physician GroupComment on above:Performed By: #### CUU, ADDONUAPLUS #### [address] (RBC) [Entitic vol]86.4 kPSbrnpr28.5-101The [facility] Physician GroupComment on above:Performed By: #### CUU, ADDONUAPLUS #### [place] [address] USAMean Corpuscular HGB Conc35.0 g/sZZludkd17.5-35.6The [facility] Physician GroupComment on above:Performed By: #### CUU, ADDONUAPLUS #### [place] [address] USAMonocytes (Bld) [#/Vol]1.0 10*3/uLHigh0.0-0.8The [facility] Physician GroupComment on above:Performed By: #### CUU, ADDONUAPLUS #### [place] [address] USAMonocytes/100 WBC (Bld)11.0 %Normal.The [facility] Physician GroupComment on above:Performed By: #### CUU, ADDONUAPLUS #### [place] [address] USANeutrophils (Bld) [#/Vol]5.5 10*3/uLNormal1.8-7.7The [facility] Physician GroupComment on above:Performed By: #### CUU, ADDONUAPLUS #### [place] [address] USANeutrophils/100 WBC (Bld)63.3 %Normal.The [facility] Physician GroupComment on above:Performed By: #### CUU, ADDONUAPLUS #### [facility] [address] [place] [address] USANRBC%0.1 /100{WBC}Normal0-0.5The [facility] Comment on above:Performed By: #### BRIONNA, ADDONUAPLUS #### [facility] [address] [place] [address] USAPlatelet mean volume (Bld) [Entitic vol]7.9 fLNormal 6.6-10.1The [facility] Physician GroupComment on above:Performed By: #### CUU, ADDONUAPLUS #### [facility] [address] [place] [address] USAPlatelets (Bld) [#/Vol]245 10*3/rTPqcojp233-947Trv [facility]ician GroupComment on above:Performed By: #### CUBarbara, ADDONUAPLUS #### [facility] [address] [place] [address] USARBC (Bld) [#/Vol]4.73 10*6/uLNormal3.90-5.60The [facility]ician GroupComment on above:Performed By: #### CUU, ADDONUAPLUS #### [place] [address] USAWBC (Bld) [#/Vol]8.7 10*3/uLNormal4.1-10.5The [facility] Physician GroupComment on above:Performed By: #### CUBarbara, ADDONUAPLUS #### [facility] [address] [place] [address] USAComprehensive Metabolic Panelon 40-51-5558Wrbkawo [Mass/Vol]3.5 g/dLNormal3.5-5.7The [facility] Physician GroupComment on above: Performed By: #### CUU, ADDONUAPLUS #### [place] [address] USAAlbumin/Globulin [Mass ratio]1.2 {ratio}NormalThe [facility] Physician GroupComment on above:Performed By: #### CUU, ADDONUAPLUS #### [address] [place] [address] USAALP [Catalytic activity/Vol]44 U/NDdpazw47-914Kdt [facility] Physician GroupComment on above:Performed By: #### SHERWIN STATONONUAPLUS #### [facility] [address] [place] [address] USAALT [Catalytic activity/Vol]18 U/LNormal7-52The [facility] Physician GroupComment on above:Performed By: #### BRIONNA ADDONUAPLUS #### [facility] [address] [place] [address] USAAnion gap [Moles/Vol]13.9 mmol/LNormal6.0-15.0The [facility] Physician GroupComment on above:Performed By: #### SHERWIN STATONONUAPLUS #### [facility] [address] [place] [address] USAAST [Catalytic activity/Vol]25 U/YCfdsxz84-84Dbw [facility]ician GroupComment on above:Performed By: #### BRIONNA ADDONUAPLUS #### [facility] [address] [place] [address] USABilirubin [Mass/Vol]0.6 mg/dLNormal0.3-1.0The [facility] Physician GroupComment on above:Performed By: #### SHERWIN STATONONUAPLUS #### [facility] [address] [place] [address] USACalcium [Mass/Vol]8.8 mg/dLNormal8.6-10.3The [facility] Physician GroupComment on above:Performed By: #### BRIONNA ADDONUAPLUS #### [facility] [address] [place] [address] USAChloride [Moles/Vol]104 mmol/UVocuya66-460Qag [facility] Physician GroupComment on above:Performed By: #### BRIONNA ADDONUAPLUS #### [facility] [address] [place] [address] USACO2 [Moles/Vol]23.6 mmol/UHtkyyi26.0-31.0The [facility] Physician GroupComment on above:Performed By: #### SHERWIN STATONONUAPLUS #### [place] [address] USACreatinine [Mass/Vol]2.41 mg/dLHigh0.70-1.30The [facility] Physician GroupComment on above:Performed By: #### CUU, ADDONUAPLUS #### [place] [address] USACreatinine Clr Calc Ckbywxuh49.55NoAtrium Health [facility]burg Physician GroupComment on above:Result Comment: PERFORMED BY: [place] [address] PATHOLOGIST DIRECTOR CHEMISTRY RADHA MANNING M.D.Performed By: #### CUU, ADDONUAPLUS #### [place] [address] USAEstimated GFR26.478 mL/MinNoAtrium Health [facility]burg Physician [facility] RankinComment on above:Performed By: #### CUU, ADDONUAPLUS #### [place] [address] USAGlobulin (S) [Mass/Vol]2.9 g/dLMemorial Regional Hospital Physician GroupComment on above:Performed By: #### CUU, ADDONUAPLUS #### [place] [address] USAGlucose [Mass/Vol]100 mg/vFQdfkrm83-279Zxe [facility]ician GroupComment on above:Result Comment: Random Glucose Reference Range is dependent on time and content of last meal. Glucose of more than 200 mg/dL in a nonstressed, ambulatory subject supports the diagnosis of Diabetes Mellitus. ADA recommended reference rangePerformed By: #### CUU, ADDONUAPLUS #### [place] [address] USAPotassium [Moles/Vol]3.5 mmol/LNormal3.5-5.1The [facility] Physician GroupComment on above:Performed By: #### CUU, ADDONUAPLUS #### [place] [address] USAProtein [Mass/Vol]6.4 g/dLNormal6.4-8.9The [facility] Physician GroupComment on above:Performed By: #### SHERWIN STTAONONUAPLUS #### [facility] [address] [place] [address] USASodium [Moles/Vol]138 mmol/DJgtuon477-131Xpy [facility] Physician GroupComment on above:Performed By: #### CRISTOUSHERWINONUAPLUS #### [facility] [address] [place] [address] USAUrea nitrogen [Mass/Vol]39 mg/dLHigh7-25The [facility] Physician GroupComment on above:Performed By: #### SHERWIN STATONONUAPLUS #### [facility] [address] [place] [address] USAEosinophils Auto (Bld) [#/Vol]Ordered By: Obsusandah Satishomar on 92-41-7663Wpvqrjuvkmg (Bld) [#/Vol]Automated eosinophil countHigh0.0-0.45 [facility] HospitalEosinophils/100 WBC Auto (Bld)Ordered By: Obaydah Daromar on 08-10-0893Ppzazltfflf/100 WBC (Bld)Automated eosinophil %. [facility] HospitalLymphocytes Auto (Bld) [#/Vol]Ordered By: Obsusandah Daromar on 06-16-7344Bvkvcpihmab (Bld) [#/Vol]Lymphocytes [#/volume] in Blood by Automated count1.00-4.8[facility] HospitalLymphocytes/100 WBC Auto (Bld)Ordered By: Obaydah Daromar on 19-38-5512Llgbhjkuspz/100 WBC (Bld)Lymphocytes/100 leukocytes in Blood by Automated count.[facility] HospitalMonocytes Auto (Bld) [#/Vol]Ordered By: Obaydah Daromar on 65-78-3348Xjytqmuvk (Bld) [#/Vol]Automated blood monocyte countHigh0.0-0.8 [facility] HospitalMonocytes/100 WBC Auto (Bld)Ordered By: Obaydah Daromar on 56-41-4781Tokbekbox/100 WBC (Bld)Automated monocyte %.[facility] HospitalNeutrophils Auto (Bld) [#/Vol]Ordered By: Jersey Bess on 55-07-0652Pujjtfsvpwz (Bld) [#/Vol]Neutrophils [#/volume] in Blood by Automated count1.8-7.7FWyandot Memorial HospitalNeutrophils/100 WBC Auto (Bld)Ordered By: Jersey Bess on 64-46-6569Yfyuulwdwnd/100 WBC (Bld)Automated neutrophil %.[facility] HospitalNucleated erythrocytes [Presence] in Blood by Automated countOrdered By: Jersey Bess on 79-37-5562Wzilgggtf RBC Auto Ql (Bld)Nucleated erythrocytes [Presence] in Blood by Automated count 0-0.5FWyandot Memorial HospitalWBC Auto (Bld) [#/Vol]Ordered By: Jersey Bess on 12-11-4827AFU (Bld) [#/Vol]Leukocytes [#/volume] in Blood by Automated count4.1-10.5FWyandot Memorial HospitalAnti-Xa UF Heparinon 35-19-2711Qldx-Xa UF Heparin0.32 [IU]/mLNormal0.30-0.70The [facility] Physician GroupComment on above:Result Comment: Use the aPTT protocol when triglycerides are > 800 mg/dL, total bilirubin is > 20 mg/dL and/or patient has received a DOAC, Fondaparinux or LMWH within 72 hours AND baseline anti-Xa level is > 0.7 units/mL PERFORMED BY: [place] [address] PATHOLOGIST DIRECTOR CHEMISTRY RADHA MANNING M.D.Performed By: #### TINO STATON #### [place] [address] USAAnti-Xa UF Heparin0.23 [IU]/mLLow0.30-0.70The [facility] Physician GroupComment on above:Result Comment: Use the aPTT protocol when triglycerides are > 800 mg/dL, total bilirubin is > 20 mg/dL and/or patient has received a DOAC, Fondaparinux or LMWH within 72 hours AND baseline anti-Xa level is > 0.7 units/mL PERFORMED BY: [place] [address] PATHOLOGIST DIRECTOR CHEMISTRY RADHA MANNING M.D.Performed By: #### PP, UFHEP, HS TROP #### [facility] [address] [place] [address] USAAnti-Xa UF Heparin0.11 [IU]/mLLow0.30-0.70The [facility] Physician [facility] RankinComment on above:Result Comment: Use the aPTT protocol when triglycerides are > 800 mg/dL, total bilirubin is > 20 mg/dL and/or patient has received a DOAC, Fondaparinux or LMWH within 72 hours AND baseline anti-Xa level is > 0.7 units/mL PERFORMED BY: [place] [address] PATHOLOGIST DIRECTOR CHEMISTRY RADHA MANNING M.D.Performed By: #### UFHEP #### [facility] [address] [place] [address] USAAppearance of UrineOrdered By: Tobi Monroy on 04-12-2024 Appearance (U)Urine appearanceAbnormalClearMercy Health Urbana Hospital Bacteria [Presence] in Urine by AutomatedOrdered By: Tobi Monroy on 04-12-2024 Bacteria Auto Ql (U)Bacteria [Presence] in Urine by AutomatedHighNone Seen [facility] HospitalBilirubin Test strip Ql (U)Ordered By: Tobi Monroy on 93-27-4593Aauzusxbp Ql (U)Bilirubin.total [Presence] in Urine by Test stripNegativeMercy Health Urbana HospitalColor Auto (U)Ordered By: Tobi Monroy on 92-69-3680Mmoqa (U)Color of Urine by AutoAbnormalYellowMercy Health Urbana HospitalComplete Blood Count Auto Diffon 86-05-9887Ufchnmqti (Bld) [#/Vol]0.0 10*3/uLNormal0.0-0.2The [facility] Physician GroupComment on above:Result Comment: PERFORMED BY: [place] [address] PATHOLOGIST DIRECTOR CHEMISTRY RADHA MANNING M.D.Performed By: #### PP, UFHEP, HS TROP #### [place] [address] USABasophils/100 WBC (Bld)0.3 %Normal.The [facility] Physician GroupComment on above:Performed By: #### PP, UFHEP, HS TROP #### [place] [address] USAEosinophils (Bld) [#/Vol]0.5 10*3/uLHigh0.0-0.45The [facility] Physician GroupComment on above:Performed By: #### PP, UFHEP, HS TROP #### [place] [address] USAEosinophils/100 WBC (Bld)4.7 %Normal.The [facility] Physician GroupComment on above:Performed By: #### PP, UFHEP, HS TROP #### [place] [address] USAErythrocyte distribution width (RBC) [Ratio]14.2 %Normal 12.0-14.8The [facility] Physician GroupComment on above:Performed By: #### PP, UFHEP, HS TROP #### [place] [address] USAHematocrit (Bld) [Volume fraction]39.4 %Xyizhp69.8-50.0The [facility] Physician GroupComment on above:Performed By: #### PP, UFHEP, HS TROP #### [place] [address] USAHemoglobin (Bld) [Mass/Vol]13.8 g/zEUvvsif80.0-17.0The [facility] Physician GroupComment on above:Performed By: #### PP, UFHEP, HS TROP #### [place] [address] USALymphocytes (Bld) [#/Vol]2.6 10*3/uLNormal1.00-4.8The [facility] Physician GroupComment on above:Performed By: #### PP, UFHEP, HS TROP #### [facility] [address] [place] [address] USALymphocytes/100 WBC (Bld)23.6 %Normal.The [facility] Physician GroupComment on above:Performed By: #### PP, UFHEP, HS TROP #### [facility] [address]H (RBC) [Entitic mass]30.6 ptRmywpk31.5-35.2The [facility] Physician GroupComment on above:Performed By: #### PP, UFHEP, HS TROP #### [place] [address] USAV (RBC) [Entitic vol]87.6 lNAprywv48.5-101The [facility] Physician GroupComment on above:Performed By: #### PP, UFHEP, HS TROP #### [facility] [address] [place] [address] USAMean Corpuscular HGB Conc34.9 g/lEXpfvhl00.5-35.6The [facility] Physician GroupComment on above:Performed By: #### PP, UFHEP, HS TROP #### [place] [address] USAMonocytes (Bld) [#/Vol]1.2 10*3/uLHigh0.0-0.8The [facility] Physician GroupComment on above:Performed By: #### PP, UFHEP, HS TROP #### [facility] [address] [place] [address] USAMonocytes/100 WBC (Bld)11.0 %Normal.The [facility] Physician GroupComment on above:Performed By: #### PP, UFHEP, HS TROP #### [place] [address] USANeutrophils (Bld) [#/Vol]6.6 10*3/uLNormal1.8-7.7The [facility] Physician GroupComment on above:Performed By: #### PP, UFHEP, HS TROP #### [facility] [address] [place] [address] USANeutrophils/100 WBC (Bld)60.4 %Normal.The [facility] Physician GroupComment on above:Performed By: #### PP, UFHEP, HS TROP #### [facility] [address] [place] [address] USANRBC%0.1 /100{WBC}Normal0-0.5The [facility] Comment on above:Performed By: #### PP, UFHEP, HS TROP #### [facility] [address] [place] [address] USAPlatelet mean volume (Bld) [Entitic vol]8.0 fLNormal 6.6-10.1The [facility] Physician GroupComment on above:Performed By: #### PP, UFHEP, HS TROP #### [facility] [address] [place] [address] USAPlatelets (Bld) [#/Vol]265 10*3/cBHtkfuf065-285Njl [facility] Physician GroupComment on above:Performed By: #### PP, UFHEP, HS TROP #### [facility] [address] [place] [address] USARBC (Bld) [#/Vol]4.50 10*6/uLNormal3.90-5.60The [facility] Physician GroupComment on above:Performed By: #### PP, UFHEP, HS TROP #### [facility] [address] [place] [address] USAWBC (Bld) [#/Vol]11.0 10*3/uLHigh4.1-10.5The [facility] Physician GroupComment on above:Performed By: #### PP, UFHEP, HS TROP #### [facility] [address] [place] [address] USAComprehensive Metabolic Panelon 22-11-9278Xyhowtc [Mass/Vol]3.2 g/dLLow3.5-5.7The [facility] Physician GroupComment on above: Performed By: #### PP, UFHEP, HS TROP #### [facility] [address] [place] [address] USAAlbumin/Globulin [Mass ratio]1.5 {ratio}NormalThe [facility] Physician GroupComment on above:Performed By: #### PP, UFHEP, HS TROP #### [facility] [address] [place] [address] USAALP [Catalytic activity/Vol]42 U/DKhosgy32-479Rix [facility] Physician GroupComment on above:Performed By: #### PP, UFHEP, HS TROP #### [facility] [address] [place] [address] USAALT [Catalytic activity/Vol]13 U/LNormal7-52The [facility] Physician GroupComment on above:Performed By: #### PP, UFHEP, HS TROP #### [place] [address] USAAnion gap [Moles/Vol]14.4 mmol/LNormal6.0-15.0The [facility] Physician GroupComment on above:Performed By: #### PP, UFHEP, HS TROP #### [place] [address] USAAST [Catalytic activity/Vol]18 U/MHqsgbx18-83Tcc [facility] Physician GroupComment on above:Performed By: #### PP, UFHEP, HS TROP #### [place] [address] USABilirubin [Mass/Vol]0.8 mg/dLNormal0.3-1.0The [facility] Physician GroupComment on above:Performed By: #### PP, UFHEP, HS TROP #### [facility] [address] [place] [address] USACalcium [Mass/Vol]8.4 mg/dLLow8.6-10.3The [facility] Physician GroupComment on above:Performed By: #### PP, UFHEP, HS TROP #### [place] [address] USAChloride [Moles/Vol]103 mmol/PZscxrn85-382Vrc [facility] Physician GroupComment on above:Performed By: #### PP, UFHEP, HS TROP #### [place] [address] USACO2 [Moles/Vol]24.3 mmol/COncvad02.0-31.0The [facility] Physician GroupComment on above:Performed By: #### PP, UFHEP, HS TROP #### [place] [address] USACreatinine [Mass/Vol]2.62 mg/dLHigh0.70-1.30The [facility] Physician GroupComment on above:Performed By: #### PP, UFHEP, HS TROP #### [place] [address] USACreatinine Clr Calc Btmcjyyp03.61NormBayfront Health St. Petersburg Emergency Room Physician GroupComment on above:Result Comment: PERFORMED BY: [place] [address] PATHOLOGIST DIRECTOR CHEMISTRY RADHA MANNING M.D.Performed By: #### PP, UFHEP, HS TROP #### [place] [address] USAEstimated GFR23.951 mL/MinNoAt[facility] Health [facility] Physician [facility] RankinComment on above:Performed By: #### PP, UFHEP, HS TROP #### [place] [address] USAGlobulin (S) [Mass/Vol]2.1 g/dLNoAtrium Health [facility] Physician [facility] RankinComment on above:Performed By: #### PP, UFHEP, HS TROP #### [place] [address] USAGlucose [Mass/Vol]92 mg/jBUnqdxo25-721Iol [facility] Physician [facility] RankinComment on above:Result Comment: Random Glucose Reference Range is dependent on time and content of last meal. Glucose of more than 200 mg/dL in a nonstressed, ambulatory subject supports the diagnosis of Diabetes Mellitus. ADA recommended reference rangePerformed By: #### PP, UFHEP, HS TROP #### [facility] [address] [place] [address] USAPotassium [Moles/Vol]3.7 mmol/LNormal3.5-5.1The [facility] Physician GroupComment on above:Performed By: #### PP, UFHEP, HS TROP #### [facility] [address] [place] [address] USAProtein [Mass/Vol]5.3 g/dLLow6.4-8.9The [facility] Physician GroupComment on above:Performed By: #### PP, UFHEP, HS TROP #### [place] [address] USASodium [Moles/Vol]138 mmol/PWzcxeb609-949Rgx [facility] Physician GroupComment on above:Performed By: #### PP, UFHEP, HS TROP #### [place] [address] USAUrea nitrogen [Mass/Vol]40 mg/dLHigh7-25The [facility] Physician GroupComment on above:Performed By: #### PP, UFHEP, HS TROP #### [place] [address] USADipstick and Microscopicon 49-11-2426Dulxrqihla (U)Turbid Critically abnormalClearThe [facility] Physician GroupComment on above:Order Comment: Name Collection Type:: Ruiz CatheterPerformed By: #### CUU, ADDONUAPLUS #### [place] [address] USABacteria,Urine4+HighNone SeenThe [facility] Comment on above:Order Comment: Name Collection Type:: Ruiz CatheterPerformed By: #### CUU, ADDONUAPLUS #### [place] [address] USABilirubin,UrineNegativeNormalNegativeThe [facility] Physician GroupComment on above:Order Comment: Name Collection Type:: Ruiz CatheterPerformed By: #### CUU, ADDONUAPLUS #### [address] [address] USABudding Yeast,Urine2+HighNone SeenThe [facility] Physician GroupComment on above:Order Comment: Name Collection Type:: Ruiz CatheterResult Comment: PERFORMED BY: [place] [address] PATHOLOGIST DIRECTOR CHEMISTRY RADHA MANNING M.D.Performed By: #### CUU, ADDONUAPLUS #### [facility] [address] [place] [address] USAColor (U)Light-OrangeCritically abnormalYellowThe [facility] Physician GroupComment on above:Order Comment: Name Collection Type:: Ruiz CatheterPerformed By: #### CUU, ADDONUAPLUS #### [facility] [address] [place] [address] USAGlucose Ql (U)NormalNormalNormalThe [facility] Physician GroupComment on above:Order Comment: Name Collection Type:: Ruiz Catheter Performed By: #### CUU, ADDONUAPLUS #### [facility] [address] [place] [address] USAHyaline Casts,Jeqqm41-18Noef7-4Atf [facility] Physician GroupComment on above:Order Comment: Name Collection Type:: Ruiz Catheter Performed By: #### CUU, ADDONUAPLUS #### [place] [address] USAKetones Ql (U)TraceHighNegativeTri[facility] Physician GroupComment on above:Order Comment: Name Collection Type:: Ruiz Catheter Performed By: #### CUU, ADDONUAPLUS #### [facility] [address] [place] [address] USALeukocyte esterase Test strip Ql (U)4+HighNegativeTri-[facility] Physician GroupComment on above:Order Comment: Name Collection Type:: Ruiz CatheterPerformed By: #### CUU, ADDONUAPLUS #### [facility] [address] [place] [address] USAMucus,Urine3+Critically abnormalThe [facility] Physician GroupComment on above:Order Comment: Name Collection Type:: Ruiz Catheter Performed By: #### CUU, ADDONUAPLUS #### [place] [address] USANitrite,UrineNegativeNormalNegativeThe [facility] Physician GroupComment on above:Order Comment: Name Collection Type:: Ruiz Catheter Performed By: #### CUU, ADDONUAPLUS #### [place] [address] USAOccult Blood,Urine3+HighNegativeThe [facility] Physician GroupComment on above:Order Comment: Name Collection Type:: Ruiz CatheterResult Comment: PERFORMED BY: [place] [address] PATHOLOGIST DIRECTOR CHEMISTRY RADHA MANNING M.D.Performed By: #### CUU, ADDONUAPLUS #### [place] [address] USApH (U)5.5 [pH]Normal5.0-9.0The [facility] Comment on above:Order Comment: Name Collection Type:: Ruiz CatheterPerformed By: #### CUU, ADDONUAPLUS #### [place] [address] USAProtein (U) [Mass/Vol]50 mg/dLHighNegativeThe [facility] Physician GroupComment on above:Order Comment: Name Collection Type:: Ruiz CatheterPerformed By: #### CUU, ADDONUAPLUS #### [place] [address] USARBC,Fijch43-675Tini0-1Ncs [facility] Physician GroupComment on above:Order Comment: Name Collection Type:: Ruiz CatheterPerformed By: #### CUU, ADDONUAPLUS #### [place] [address] USASpecificy Mears,Urine1.975Qaagnz2.001-1.030The [facility] Physician GroupComment on above:Order Comment: Name Collection Type:: Ruiz CatheterPerformed By: #### CUU, ADDONUAPLUS #### [place] [address] USASquamous Epithelial Cell,Mocvu2-2Cptt4-5Wwp [facility] Physician GroupComment on above:Order Comment: Name Collection Type:: Ruiz CatheterPerformed By: #### CUU, ADDONUAPLUS #### [facility] [address] [place] [address] USAUrobilinogen,UrineNormalNormalNormalThe [facility] Physician GroupComment on above:Order Comment: Name Collection Type:: Ruiz CatheterPerformed By: #### CUU, ADDONUAPLUS #### [facility] [address] [place] [id number] USAWBC CLUMP, UrineManyHighNone SeenThe [facility] Physician GroupComment on above:Order Comment: Name Collection Type:: Ruiz Catheter Performed By: #### CUU, ADDONUAPLUS #### [facility] [address] [place], [place] [address] USAWBC,UrineInnumerableHigh0-4The [facility] Comment on above:Order Comment: Name Collection Type:: Ruiz CatheterPerformed By: #### CUU, ADDONUAPLUS #### [facility] [address] [place], [place] [address] USAEpithelial cells.squamous [#/area] in Urine sediment by Automated countOrdered By: Tobi Monroy on 66-97-5657Iewybkkjlb cells.squamous Auto (Urine sed) [#/Area]Epithelial cells.squamous [#/area] in Urine sediment by Automated countBluefield Regional Medical Center02FWyandot Memorial HospitalErythrocytes [#/area] in Urine sediment by Automated countOrdered By: Tobi Monroy on 67-91-8747ZTT Auto (Urine sed) [#/Area]Erythrocytes [#/area] in Urine sediment by Automated count High04FWyandot Memorial HospitalGlucose [Mass/volume] in Urine by Test stripOrdered By: Tobi Monroy on 47-46-3878Ttqindp Test strip (U) [Mass/Vol] Glucose [Mass/volume] in Urine by Test stripNoRegency Hospital ToledoHemoglobin Test strip Ql (U)Ordered By: Tobi Monroy on 04-12-2024 Hemoglobin Ql (U)Hemoglobin [Presence] in Urine by Test stripBluefield Regional Medical CenterNegCleveland Clinic South Pointe HospitalHeparin anti-Xa unfractionatedOrdered By: Keron Gutierres on 83-71-8981Tjjkepd unfractionated Chromogenic method Qn (PPP) Heparin anti-Xa unfractionated0.30-0.70[facility] HospitalComment on above:Use the aPTT protocol when triglycerides are > 800 mg/dL,total bilirubin is > 20 mg/dL and/orpatient has received aDOAC, Fondaparinux or LMWH within 72 hours AND baselineanti-Xa level is > 0.7 units/mLHyaline casts [#/area] in Urine sediment by Automated countOrdered By: Tobi Monroy on 27-65-8733Pjemajg casts Auto (Urine sed) [#/Area]Hyaline casts [#/area] in Urine sediment by Automated countPappas Rehabilitation Hospital For Children8[facility] HospitalKetones Test strip Ql (U)Ordered By: Tobi Monroy on 31-52-5013Sfdojxf Ql (U)Ketones [Presence] in Urine by Test stripBluefield Regional Medical CenterNegDunlap Memorial Hospital Leukocyte clumps [Presence] in Urine by AutomatedOrdered By: Tobi Monroy on 82-59-7751Sbmzlwmwv clumps Auto Ql (U)Leukocyte clumps [Presence] in Urine by AutomatedMercy Health Tiffin HospitalLeukocyte esterase [Presence] in Urine by Test stripOrdered By: Tobi Monroy on 73-93-5996Uhyzadvty esterase Test strip Ql (U)Leukocyte esterase [Presence] in Urine by Test strip HighNegDunlap Memorial HospitalLeukocytes [#/area] in Urine sediment by Automated countOrdered By: Tobi Monroy on 01-83-9174MNY Auto (Urine sed) [#/Area]Leukocytes [#/area] in Urine sediment by Automated countPappas Rehabilitation Hospital For Children4 [facility] HospitalMucus [Presence] in Urine by AutomatedOrdered By: Tobi Monroy on 53-83-1546Tlhpt Auto Ql (U)Mucus [Presence] in Urine by AutomatedAbSamaritan HospitalNitrite Test strip Ql (U) Ordered By: Tobi Monroy on 21-56-2163Hknavwr Ql (U)Nitrite [Presence] in Urine by Test stripNegDunlap Memorial HospitalProtein Creat Ratio Ur Randomon 03-19-9068Syejnzsrfh, Urine (Random)102.00 mg/dLNormBayfront Health St. Petersburg Emergency Room Physician GroupComment on above:Result Comment: No reference range established Performed By: #### CUU, ADDONUAPLUS #### [facility] [address] [place] [address] USAProtein (U) [Mass/Vol]44 mg/dLHigh0-9[facility] Physician GroupComment on above:Performed By: #### CUU, ADDONUAPLUS #### [facility] [address] [place] [address] USAUrine Protein/Creatinine Gafpe340 mg/g{Cre}High0-200[facility] Physician [facility] Health RankinComment on above:Result Comment: PERFORMED BY: [place] [address] PATHOLOGIST DIRECTOR CHEMISTRY RADHA MANNING M.D.Performed By: #### CUU, ADDONUAPLUS #### [place] [id number] USAProtein Test strip (U) [Mass/Vol]Ordered By: Tobi Monroy on 22-16-3804Idzakgr (U) [Mass/Vol]Protein [Mass/volume] in Urine by Test strip HighNegDunlap Memorial HospitalProtein [Mass/volume] in Urine Ordered By: Tobi Monroy on 25-28-5021Uzjfabx (U) [Mass/Vol]Protein [Mass/volume] in UrineHigh0-9[facility] Hospital Southpecific gravity Test strip (U) [Rel density]Ordered By: Tobi Liceadir on 15-42-4014Ntnwwgkx gravity (U) [Rel density]Specific gravity of Urine by Test strip1.001-1.030[facility] HospitalUS renal BIon 12-21-6356VW renal [facility] [place] [address] [place] [address] Ultrasound Report Signed Patient: Corwin Muller MR#: [id number] : 1945 Acct:[id number] Age/Sex: 79 / M ADM Date: 04/10/24 Loc: Room: [address] [place] [address] Type: ADM IN Attending Dr: [place] Bess [...] Jones Pedro M.D.04/12/2024 9:34 PM Dictation Location: [place] [address] Tech: Lacey Archer Transcribed By: RK 04/12/242133 Dictated By: Jones Pedro II, MD 04/12/242132 Signed By: 04/12/24 On license of [facility] Physician GroupUrine Cultureon 04-12-2024 Bacteria identified Cx Nom (U)ORGANISM: Staphylococcus epidermidis (O:STAEPI) [place] Count >100,000 Aerobic JONATHAN Charge (PCMIC38) SUSCEPTIBILITY ORGANISM: O:STAEPI ANTIBIOTIC INTERPRETATION JONATHAN Ciprofloxacin S <1 Daptomycin S <0.5 Levofloxacin S <1 Linezolid S <1 Nitrofurantoin S <32 Oxacillin R >2 Penicillin R 0.5 Tetracycline S <4 Trimethoprim/Sulfamethoxazole S <0.5 Vancomycin S 1 S = [...] RESISTANT TO ALL B-LACTAM DRUGS. PERFORMED BY: [place] [address] PATHOLOGIST DIRECTOR CHEMISTRY RADHA MANNING M.D.NormalThe [facility] Physician GroupComment on above: Performed By: #### CUU, ADDONUAPLUS #### [place] [address] USAUrine cultureOrdered By: Tobi Monroy on 26-69-5980Ljuugkge identified Cx Nom (U)AbnormalMercy Health Urbana HospitalBacteria identified Cx Nom (U)AbnormalMercy Health Urbana HospitalUrine protein/creatinine ratioOrdered By: Tobi Monroy on 84-45-3649Zmazbhi/Creatinine (U) [Ratio]Urine protein/creatinine ratioHigh0-200[facility]ana HospitalUrobilinogen Test strip (U) [Mass/Vol]Ordered By: Tobi Monroy on 75-53-2671Fdmzoxbpmuwr (U) [Mass/Vol]Urobilinogen [Mass/volume] in Urine by Test stripHolzer Medical Center – JacksonYeast.budding [Presence] in Urine by Computer assisted methodOrdered By: Tobi Monroy on 23-20-1065Earzx.budding Computer assisted Ql (U)Yeast.budding [Presence] in Urine by Computer assisted methodHighAdams County HospitalpH Test strip (U)Ordered By: Tobi Monroy on 54-88-1994aT (U)pH of Urine by Test strip5.0-9.0[facility] HospitalAnti-Xa UF Heparinon 96-20-1195Trvy-Xa UF Heparin0.24 [IU]/mLLow0.30-0.70The [facility] Physician GroupComment on above:Result Comment: Use the aPTT protocol when triglycerides are > 800 mg/dL, total bilirubin is > 20 mg/dL and/or patient has received a DOAC, Fondaparinux or LMWH within 72 hours AND baseline anti-Xa level is > 0.7 units/mL PERFORMED BY: [place] [phone] PATHOLOGIST DIRECTOR CHEMISTRY RADHA MANNING M.D.Performed By: #### UFHEP #### [place] [address] USAAnti-Xa UF Heparin0.56 [IU]/mLNormal0.30-0.70The [facility] Physician GroupComment on above:Result Comment: Use the aPTT protocol when triglycerides are > 800 mg/dL, total bilirubin is > 20 mg/dL and/or patient has received a DOAC, Fondaparinux or LMWH within 72 hours AND baseline anti-Xa level is > 0.7 units/mL PERFORMED BY: [place] [phone] PATHOLOGIST DIRECTOR CHEMISTRY RADHA MANNING M.D.Performed By: #### SHERWIN STATONONUAPLUS #### [place] [address] USAComplete Blood Count Auto Diffon 74-35-7906Kirkztkez (Bld) [#/Vol]0.0 10*3/uLNormal0.0-0.2The [facility] Physician GroupComment on above: Result Comment: PERFORMED BY: [place] [address] PATHOLOGIST DIRECTOR CHEMISTRY RADHA MANNING M.D.Performed By: #### BRIONNA, ADDONUAPLUS #### [place] [address] USABasophils/100 WBC (Bld)0.4 %Normal.The [facility] Physician GroupComment on above:Performed By: #### SHERWIN STATONONUAPLUS #### [place] [address] USAEosinophils (Bld) [#/Vol]0.4 10*3/uLNormal0.0-0.45The [facility] Physician GroupComment on above:Performed By: #### CUU, ADDONUAPLUS #### [place] [address] USAEosinophils/100 WBC (Bld)4.3 %Normal.The [facility] Physician GroupComment on above:Performed By: #### CUU, ADDONUAPLUS #### [place] [address] USAErythrocyte distribution width (RBC) [Ratio]14.3 %Normal 12.0-14.8The [facility] Physician GroupComment on above:Performed By: #### CUU, ADDONUAPLUS #### [place] [address] USAHematocrit (Bld) [Volume fraction]42.1 %Qfzlxy21.8-50.0The [facility] Physician GroupComment on above:Performed By: #### CUU, ADDONUAPLUS #### [place] [address] USAHemoglobin (Bld) [Mass/Vol]14.6 g/sPXrsuia99.0-17.0The [facility] Physician GroupComment on above:Performed By: #### CUU, ADDONUAPLUS #### [place] [address] USALymphocytes (Bld) [#/Vol]2.0 10*3/uLNormal1.00-4.8The [facility] Physician GroupComment on above:Performed By: #### CUU, ADDONUAPLUS #### [place] [address] USALymphocytes/100 WBC (Bld)21.4 %Normal.The [facility] Physician GroupComment on above:Performed By: #### CUU, ADDONUAPLUS #### [place] [address] USAMCH (RBC) [Entitic mass]30.6 ywGcdrgo94.5-35.2The [facility] Physician GroupComment on above:Performed By: #### CUU, ADDONUAPLUS #### [place] [address] [place] [address] USAMCV (RBC) [Entitic vol]88.1 fAVttmur93.5-101The [facility] Physician GroupComment on above:Performed By: #### CUU, ADDONUAPLUS #### [facility] [address] [place] [address] USAMean Corpuscular HGB Conc34.7 g/qQLyevjf96.5-35.6The [facility] Physician GroupComment on above:Performed By: #### CUU, ADDONUAPLUS #### [facility] [address] [place] [address] USAMonocytes (Bld) [#/Vol]1.0 10*3/uLHigh0.0-0.8The [facility] Physician GroupComment on above:Performed By: #### CUU, ADDONUAPLUS #### [place] [address] USAMonocytes/100 WBC (Bld)10.9 %Normal.The [facility] Physician GroupComment on above:Performed By: #### CUU, ADDONUAPLUS #### [place] [address] USANeutrophils (Bld) [#/Vol]5.9 10*3/uLNormal1.8-7.7The [facility] Physician GroupComment on above:Performed By: #### CUU, ADDONUAPLUS #### [place] [address] USANeutrophils/100 WBC (Bld)63.0 %Normal.The [facility] Physician GroupComment on above:Performed By: #### CUU, ADDONUAPLUS #### [place] [address] USANRBC%0.1 /100{WBC}Normal0-0.5The [facility] Comment on above:Performed By: #### CUU, ADDONUAPLUS #### [facility] [address] [place] [address] USAPlatelet mean volume (Bld) [Entitic vol]8.1 fLNormal 6.6-10.1The [facility] Physician GroupComment on above:Performed By: #### CUU, ADDONUAPLUS #### [facility] [address] [place] [address] USAPlatelets (Bld) [#/Vol]255 10*3/qNCsmqgp558-417Aje [facility] Physician GroupComment on above:Performed By: #### CUU, ADDONUAPLUS #### [facility] [address] [place] [address] USARBC (Bld) [#/Vol]4.78 10*6/uLNormal3.90-5.60The [facility] Physician GroupComment on above:Performed By: #### BRIONNA, ADDONUAPLUS #### [place] [address] USAWBC (Bld) [#/Vol]9.4 10*3/uLNormal4.1-10.5The [facility] Physician GroupComment on above:Performed By: #### BRIONNA, ADDONUAPLUS #### [place] [address] USAComprehensive Metabolic Panelon 07-25-8583Acvubfa [Mass/Vol]3.6 g/dLNormal3.5-5.7The [facility] Physician GroupComment on above: Performed By: #### CUBarbara, ADDONUAPLUS #### [facility] [address] [place] [address] USAAlbumin/Globulin [Mass ratio]1.3 {ratio}NormalThe [facility] Physician GroupComment on above:Performed By: #### CUU, ADDONUAPLUS #### [facility] [address] [place] [address] USAALP [Catalytic activity/Vol]50 U/IJnrgzb39-819Foe [facility] Physician GroupComment on above:Performed By: #### CUU, ADDONUAPLUS #### [facility] [address] [place] [address] USAALT [Catalytic activity/Vol]14 U/LNormal7-52The [facility] Physician GroupComment on above:Performed By: #### CUU, ADDONUAPLUS #### [facility] [address] [place] [address] USAAnion gap [Moles/Vol]12.5 mmol/LNormal6.0-15.0The [facility] Physician GroupComment on above:Performed By: #### CUU, ADDONUAPLUS #### [place] [address] USAAST [Catalytic activity/Vol]19 U/PGoztka73-96Dqb [facility] Physician GroupComment on above:Performed By: #### CUU, ADDONUAPLUS #### [facility] [address] [place] [address] USABilirubin [Mass/Vol]1.0 mg/dLNormal0.3-1.0The [facility] Physician GroupComment on above:Performed By: #### CUU, ADDONUAPLUS #### [place] [address] USACalcium [Mass/Vol]8.7 mg/dLNormal8.6-10.3The [facility] Physician GroupComment on above:Performed By: #### CUU, ADDONUAPLUS #### [place] [address] USAChloride [Moles/Vol]104 mmol/OCvhqtu39-543Adw [facility] Physician GroupComment on above:Performed By: #### CUU, ADDONUAPLUS #### [facility] [address] [place] [address] USACO2 [Moles/Vol]25.6 mmol/SVtydlw33.0-31.0The [facility] Physician GroupComment on above:Performed By: #### CUU, ADDONUAPLUS #### [facility] [address] [place] [address] USACreatinine [Mass/Vol]2.34 mg/dLHigh0.70-1.30The [facility] Physician GroupComment on above:Performed By: #### CUU, ADDONUAPLUS #### [facility] [address] [place] [address] USACreatinine Clr Calc Lpfbzhpo26.91NormalThe [facility]lands Physician GroupComment on above:Result Comment: PERFORMED BY: [place] [address] PATHOLOGIST DIRECTOR CHEMISTRY RADHA MANNING M.D.Performed By: #### BRIONNA ADDONUAPLUS #### [place] [address] USAEstimated GFR27.431 mL/MinNoAtrium Health Harrisburg Physician GroupComment on above:Performed By: #### BRIONNA, ADDONUAPLUS #### [place] [address] USAGlobulin (S) [Mass/Vol]2.8 g/dLMemorial Regional Hospital Physician [facility] Health RankinComment on above:Performed By: #### BRIONNA ADDONUAPLUS #### [place] [address] USAGlucose [Mass/Vol]95 mg/oJEbxdvs70-968Mau [facility] Physician GroupComment on above:Result Comment: Random Glucose Reference Range is dependent on time and content of last meal. Glucose of more than 200 mg/dL in a nonstressed, ambulatory subject supports the diagnosis of Diabetes Mellitus. ADA recommended reference rangePerformed By: #### BRIONNA ADDONUAPLUS #### [place] [address] USAPotassium [Moles/Vol]3.1 mmol/LLow3.5-5.1The [facility] Physician GroupComment on above:Performed By: #### CUBarbara, ADDONUAPLUS #### [place] [address] USAProtein [Mass/Vol]6.4 g/dLNormal6.4-8.9The [facility] Physician GroupComment on above:Performed By: #### CUU, ADDONUAPLUS #### [place] [address] USASodium [Moles/Vol]139 mmol/WIvhwdl076-597Hsp [facility] Physician GroupComment on above:Performed By: #### BRIONNA ADDONUAPLUS #### [facility] [address] [id number] USAUrea nitrogen [Mass/Vol]30 mg/dLBluefield Regional Medical Center[address] [place] [address] Physician GroupComment on above:Performed By: #### J LUIS STATONPLUS #### [facility] [address] [id number] USAECG 12 lead ECGon 96-94-2707FJM 12 lead ECGPREMIER [facility]ALTH [facility] Main [place] [address] [place] [address] Electrocardiograph Report Signed Patient: Corwin Muller MR#: [id number] : 1945 Acct:[id number] Age/Sex: 79 / M ADM Date: 04/10/24 Loc: Room: [address] [place] [address] Type: ADM IN Attending Dr: Jersey Bess [...] replaced Sinus rhythm Confirmed by Bubba Jessica ([id number]) on 04/11/2024 2:15:02 PM Referred By: Electronically Signed By: Bubba Jessica Transcribed By: MUS Signed By Bubba Jessica MD 04/11/24 1415NormalThBear Lake [facility] Hospital Physician GroupAnti-Xa UF Heparinon 04-10-2024 Anti-Xa UF Heparin<0.04Low0.30-0.70The [facility] Physician GroupComment on above:Result Comment: Use the aPTT protocol when triglycerides are > 800 mg/dL, total bilirubin is > 20 mg/dL and/or patient has received a DOAC, Fondaparinux or LMWH within 72 hours AND baseline anti-Xa level is > 0.7 units/mL PERFORMED BY: [place] [address] PATHOLOGIST DIRECTOR CHEMISTRY RADHA MANNING M.D.Performed By: #### PP, UFHEP, HS TROP #### [place] [address] USABasic Metabolic Panelon 11-37-6924Ktwzh gap [Moles/Vol] 12.0 mmol/LNormal6.0-15.0The [facility] Physician GroupComment on above:Performed By: #### PP, UFHEP, HS TROP #### [place] [address] USACalcium [Mass/Vol]9.2 mg/dLNormal8.6-10.3The [facility] Physician GroupComment on above:Performed By: #### PP, UFHEP, HS TROP #### [place] [address] USAChloride [Moles/Vol]108 mmol/KTyyy92-140Mzx [facility] Physician GroupComment on above:Performed By: #### PP, UFHEP, HS TROP #### [place] [address] USACO2 [Moles/Vol]22.6 mmol/XObfhid69.0-31.0The [facility] Physician GroupComment on above:Performed By: #### PP, UFHEP, HS TROP #### [place] [address] USACreatinine [Mass/Vol]2.36 mg/dLHigh0.70-1.30The [facility] Physician GroupComment on above:Performed By: #### PP, UFHEP, HS TROP #### [place] [address] USACreatinine Clr Calc Abodqpqq51.65NormBayfront Health St. [facility] Emergency Room Physician GroupComment on above:Performed By: #### PP, UFHEP, HS TROP #### [place] [address] USAEstimated GFR27.152 mL/MinNormBayfront Health St. Petersburg Emergency Room Physician GroupComment on above:Performed By: #### PP, UFHEP, HS TROP #### [facility] [address] [place] [address] USAGlucose [Mass/Vol]109 mg/rPUbtz21-184Xik [facility] Physician GroupComment on above:Result Comment: Random Glucose Reference Range is dependent on time and content of last meal. Glucose of more than 200 mg/dL in a nonstressed, ambulatory subject supports the diagnosis of Diabetes Mellitus. ADA recommended reference rangePerformed By: #### PP, UFHEP, HS TROP #### [facility] [address] [place] [address] USAPotassium [Moles/Vol]3.6 mmol/LNormal3.5-5.1The [facility] Physician GroupComment on above:Performed By: #### PP, UFHEP, HS TROP #### [facility] [address] [place] [address] USASodium [Moles/Vol]139 mmol/FSbysmn731-062Lrx [facility] Physician GroupComment on above:Performed By: #### PP, UFHEP, HS TROP #### [facility] [address] [id number] USAUrea nitrogen [Mass/Vol]28 mg/dLHigh7-25ThBear Lake Memorial Hospital Physician GroupComment on above:Performed By: #### PP, UFHEP, HS TROP #### [facility] [address] [id number] USACholesterol [Mass/volume] in Serum or PlasmaOrdered By: Holly Weinberg on 98-60-1845Uhwuamsqvih [Mass/Vol]Cholesterol [Mass/volume] in Serum or Xpcloc291-729EkqpxawjbMercy Health Urbana HospitalComment on above:Chol less than 200 mg/dl low riskChol 201-239 mg/dl borderline riskChol 240 mg/dl and greater high riskCholesterol in HDL [Mass/volume] in Serum or PlasmaOrdered By: Holly Weinberg on 62-71-2316Ahkoszmeyfd in HDL [Mass/Vol]Serum or plasma high density lipoprotein (HDL) cholesterol yjllanctsjt02-23GgzplehwnMercy Health Urbana HospitalComment on above:HDL CHOL ATP-III CLASSIFICATION Cardiovascular RiskHDL > or equal to 60 mg/dL LOWHDL < 40 mg/dL HIGHCholesterol in LDL Calc [Mass/Vol] Ordered By: Holly Weinberg on 54-35-5717Awneummxxax in LDL [Mass/Vol]Cholesterol in LDL [Mass/volume] in Serum or Plasma by calculationHigh0-100Mer[facility] HospitalComment on above:LDL ATP III CLASSIFICATIONLDL less than 100 mg/dL OptimalLDL 100-129 mg/dL Near or above pzkurfrCLD615-819 mg/dL Borderline highLDL 160-189 mg/dL HighLDL greater than 189 mg/dL Very highCholesterol in VLDL Calc [Mass/Vol]Ordered By: Holly Weinberg on 88-23-6677Njlsfjbkjcr in VLDL [Mass/Vol]Cholesterol in VLDL [Mass/volume] in Serum or Plasma by calculation [facility] HospitalCoagulation Profileon 23-25-9635gNVW Coag (Bld) [Time]28.8 qEhjgyy56.1-36.5The [facility] Physician GroupComment on above:Result Comment: A hematocrit value greater than 55% may lead to inaccurate results in coagulation testing. Patients having hematocrit values >55% require a special collection tube for coagulation studies. Please contact the laboratory at [phone] for redraw instructions.Performed By: #### PP, UFHEP, HS TROP #### [facility] [address] [place] [address] USAINR Coag (PPP) [Relative time]1.2 {INR}NormalThe [facility] Physician GroupComment on above:Result Comment: INR Therapeutic Range A) Pre- and [...] patients with mechanical heart valves: 3 - 4.5Performed By: #### PP, UFHEP, HS TROP #### [facility] [address] [place] [address] USAPT Coag (PPP) [Time]13.2 sHigh9.0-12.9The [facility] Physician GroupComment on above:Result Comment: A hematocrit value greater than 55% may lead to inaccurate results in coagulation testing. Patients having hematocrit values >55% require a special collection tube for coagulation studies. Please contact the laboratory at [phone] for redraw instructions.Performed By: #### PP, UFHEP, HS TROP #### [place] [address] USAComplete Blood Count Auto Diffon 29-75-8499Dglphtabn (Bld) [#/Vol]0.1 10*3/uLNormal0.0-0.2The [facility] Physician GroupComment on above: Result Comment: PERFORMED BY: [place] [address] PATHOLOGIST DIRECTOR CHEMISTRY RADHA MANNING M.D.Performed By: #### PP, UFHEP, HS TROP #### [place] [address] USABasophils/100 WBC (Bld)0.7 %Normal.The [facility] Physician GroupComment on above:Performed By: #### PP, UFHEP, HS TROP #### [place] [address] USAEosinophils (Bld) [#/Vol]0.3 10*3/uLNormal0.0-0.45The [facility] Physician GroupComment on above:Performed By: #### PP, UFHEP, HS TROP #### [place] [address] USAEosinophils/100 WBC (Bld)2.4 %Normal.The [facility] Physician GroupComment on above:Performed By: #### PP, UFHEP, HS TROP #### [place] [address] USAErythrocyte distribution width (RBC) [Ratio]14.3 %Normal 12.0-14.8The [facility] Physician GroupComment on above:Performed By: #### PP, UFHEP, HS TROP #### [place] [address] USAHematocrit (Bld) [Volume fraction]44.8 %Xludgn50.8-50.0The [facility] Physician GroupComment on above:Performed By: #### PP, UFHEP, HS TROP #### [place] [address] USAHemoglobin (Bld) [Mass/Vol]15.1 g/dBSfgvpp14.0-17.0The [facility] Physician GroupComment on above:Performed By: #### PP, UFHEP, HS TROP #### [facility] [address] [place] [address] USALymphocytes (Bld) [#/Vol]2.0 10*3/uLNormal1.00-4.8The [facility] Physician GroupComment on above:Performed By: #### PP, UFHEP, HS TROP #### [facility] [address] [place] [address] USALymphocytes/100 WBC (Bld)17.3 %Normal.The [facility] Physician GroupComment on above:Performed By: #### PP, UFHEP, HS TROP #### [facility] [address] [place] [address] USAMCH (RBC) [Entitic mass]30.0 baXqnbae13.5-35.2The [facility] Physician GroupComment on above:Performed By: #### PP, UFHEP, HS TROP #### [place] [address] USAMCV (RBC) [Entitic vol]88.7 xYVudiqg02.5-101The [facility] Physician GroupComment on above:Performed By: #### PP, UFHEP, HS TROP #### [place] [address] USAMean Corpuscular HGB Conc33.8 g/ySMigpns20.5-35.6The [facility] Physician GroupComment on above:Performed By: #### PP, UFHEP, HS TROP #### [place] [address] USAMonocytes (Bld) [#/Vol]1.1 10*3/uLHigh0.0-0.8The [facility] Physician GroupComment on above:Performed By: #### PP, UFHEP, HS TROP #### [facility] [address] [id number] USAMonocytes/100 WBC (Bld)10.0 %Normal.The [facility] Physician GroupComment on above:Performed By: #### PP, UFHEP, HS TROP #### [facility] [address] [place] [address] USANeutrophils (Bld) [#/Vol]7.9 10*3/uLHigh1.8-7.7The [facility] Physician GroupComment on above:Performed By: #### PP, UFHEP, HS TROP #### [facility] [address] [place] [address] USANeutrophils/100 WBC (Bld)69.6 %Normal.The [facility] Physician GroupComment on above:Performed By: #### PP, UFHEP, HS TROP #### [facility] [address] [place] [address] USANRBC%0.1 /100{WBC}Normal0-0.5The [facility] Group Comment on above:Performed By: #### PP, UFHEP, HS TROP #### [facility] [address] [place] [address] USAPlatelet mean volume (Bld) [Entitic vol]8.3 fLNormal 6.6-10.1The [facility] Physician GroupComment on above:Performed By: #### PP, UFHEP, HS TROP #### [facility] [address] [place] [address] USAPlatelets (Bld) [#/Vol]252 10*3/dHJwxmbf700-119Kuc [facility] Physician GroupComment on above:Performed By: #### PP, UFHEP, HS TROP #### [facility] [address] [place] [address] USARBC (Bld) [#/Vol]5.05 10*6/uLNormal3.90-5.60The [facility] Physician GroupComment on above:Performed By: #### PP, UFHEP, HS TROP #### [facility] [address] [place] [address] USAWBC (Bld) [#/Vol]11.3 10*3/uLHigh4.1-10.5The [facility] Physician GroupComment on above:Performed By: #### PP, UFHEP, HS TROP #### [facility] [address] [place], [place] [address] USAECG 12 lead ECGon 73-56-9265QYV 12 lead ECGPREMIER [facility] [place] [address] Electrocardiograph Report Signed Patient: Corwin Muller MR#: [id number] : 1945 Acct:[id number] Age/Sex: 79 / M ADM Date: 04/10/24 Loc: Room: [address] [place] [address] Type: ADM IN Attending Dr: Jersey Bess [...] in Lateral leads Confirmed by Bubba Jessica ([id number]) on 04/11/2024 2:09:58 PM Referred By: Electronically Signed By: Bubba Jessica Transcribed By: MUS Signed By Bubba Jessica MD 04/11/[address] [place] [address] Physician GroupECG 12 lead ECGPREMIER [facility] [address] [place] [id number] Electrocardiograph Report Signed Patient: Corwin Muller MR#: [id number] : 1945 Acct:[id number] Age/Sex: 79 / M ADM Date: 04/10/24 Loc: Room: [address] [place] [address] Type: ADM IN Attending Dr: Jersey Bess [...] rhythm, needs review Confirmed by Bubba Jessica ([id number]) on 04/10/2024 2:56:03 PM Referred By: Electronically Signed By: Bubba Jessica Transcribed By: MUS Signed By Bubba Jessica MD 04/10/[address] [place] [address] Physician GroupECG 12 lead [facility] Main [place] [address] [place] [address] Electrocardiograph Report Signed Patient: Corwin Muller MR#: [id number] : 1945 Acct:[id number] Age/Sex: 79 / M ADM Date: 04/10/24 Loc: Room: [address] [place] [address] Type: ADM IN Attending Dr: Jersey Bess [...] , age undetermined Confirmed by Bubba Jessica ([id number]) on 04/10/2024 3:54:01 PM Referred By: Electronically Signed By: Bubba Jessica Transcribed By: MUS Signed By Bubba Jessica MD 04/10/[address] [place] [address] Physician GroupECH echo transthoracicon 34-36-4878NHJ echo transthoracicPREMIER [facility]ALTH [facility] Main [place] [address] [place] [address] Echocardiogram Signed Patient: Corwin Muller MR#: [id number] : 1945 Acct:[id number] Age/Sex: 79 / M ADM Date: 04/10/24 Loc: Room: [address] [place] [address] Type: ADM IN Attending Dr: Jersey Bess MD Ordering Provider: Holly Weinberg APRN Date of Service: 04/10/24 ECH/ECH echo transthoracic: chf, nstemi Copies to: MD Holly Ledesma, DISC RULER OPERATOR Height: 76 in Weight: 228 lb [...] 0821 Signed By: Bubba Jessica MD 04/10/24 1414[facility] Physician GroupINR in Platelet poor plasma by Coagulation assayOrdered By: Kurtis Langley on 41-05-8282XXC Coag (PPP) [Relative time]INR in Platelet poor plasma by Coagulation assayMercy Health Urbana HospitalComment on above:INR Therapeutic Range A) Pre- and Peroperative OAT started two weeks before surgery. NOT HIP SURGERY: 1.5 - 2.5 HIP SURGERY: 2 - 3B) Primary and secondary prevention of venous THROMBOSIS: 2 - 3C) Active venous thrombosis, pulmonary embolismand prevention of recurrent venous thrombosis: 2 - 3D) Prevention of arterial thromboembolismincluding patients with mechanical heart valves: 3 - 4.5Lipid Panelon 17-64-1403Elcxyrtbhrl [Mass/Vol]168 mg/jYUttcre948-621Kee [facility] Physician GroupComment on above:Result Comment: Chol less than 200 mg/dl low risk Chol 201-239 mg/dl borderline risk Chol 240 mg/dl and greater high riskPerformed By: #### PP, UFHEP, HS TROP #### [facility] [address] [id number] USACholesterol in HDL [Mass/Vol]26 mg/bRCbusvl49-61Xvd [facility] Physician GroupComment on above:Result Comment: HDL CHOL ATP-III CLASSIFICATION Cardiovascular Risk HDL > or equal to 60 mg/dL LOW HDL < 40 mg/dL HIGHPerformed By: #### PP, UFHEP, HS TROP #### [facility] [address] [place] [address] USACholesterol.total/Cholesterol in HDL [Mass ratio]6.5 {ratio}Normal<5.0The [facility] Physician GroupComment on above:Result Comment: PERFORMED BY: [place] [address] PATHOLOGIST DIRECTOR CHEMISTRY RADHA MANNING M.D.Performed By: #### PP, UFHEP, HS TROP #### [facility] [address] [place] [address] USALDL Cholesterol,Natdjjidgb410 mg/dLHigh0-100The [facility] Physician GroupComment on above:Result Comment: LDL ATP III CLASSIFICATION LDL less than 100 mg/dL Optimal LDL 100-129 mg/dL Near or above optimal LDL 130-159 mg/dL Borderline high LDL 160-189 mg/dL High LDL greater than 189 mg/dL Very highPerformed By: #### PP, UFHEP, HS TROP #### [facility] [address] [id number] USATriglyceride w/Zuwsfb768 mg/dLNormal0-149The [facility] Physician GroupComment on above:Result Comment: TRIG ATP III CLASSIFICATION TRIG less than 150 mg/dL Normal TRIG 150-199 mg/dL Borderline high TRIG 200-500 mg/dL High TRIG greater than 500 mg/dL Very high Standard traceable to the Center for Disease Conrtrol and Prevention (CDC) test method.Performed By: #### PP, UFHEP, HS TROP #### [facility] [address] [place] [address] USAVLDL CCTJZCBKYZF77 mg/dLNormalThe [facility] Physician [facility] RankinComment on above:Performed By: #### PP, UFHEP, HS TROP #### [facility] [address] [place] [address] USAMagnesiumon 91-42-0472Ilohyrsyb [Mass/Vol]2.0 mg/dLNormal 1.9-2.7The [facility] Physician [facility] RankinComment on above:Performed By: #### PP, UFHEP, HS TROP #### [facility] [address] [place] [address] USAProthrombin time (PT)Ordered By: Kurtis Langley on 57-20-1909BU Coag (PPP) [Time]Prothrombin time (PT)High9.0-12.9[facility] HospitalComment on above:A hematocrit value greater than 55% may lead to inaccurate results in coagulation testing. Patientshaving hematocrit values >55% require a special collection tube for coagulation studies. Please c ontact the laboratory at [phone] for redraw instructions.Serum or plasma total cholesterol/high density lipoprotein (HDL) cholesterol mass ratOrdered By: Holly Weinberg on 85-18-7485Coeqgdexido.total/Cholesterol in HDL [Mass ratio]Serum or plasma total cholesterol/high density lipoprotein (HDL) cholesterol mass rat <5.0Mer[facility]ana HospitalTriglyceride [Mass/volume] in Serum or PlasmaOrdered By: Holly Weinberg on 80-30-5292Ffyboqnpjwuw [Mass/Vol]Triglyceride [Mass/volume] in Serum or Plasma0-149[facility] HospitalComment on above:TRIG ATP III CLASSIFICATIONTRIG less than 150 mg/dL NormalTRIG 150-199 mg/dL Borderline highTRIG 200-500 mg/dL High TRIG greater than 500 mg/dL Very highStandard traceable to the Center for Disease Conrtrol and Prevention (CDC) test method.Troponin I High Sensitivityon 64-35-9494Egodtcnm I High Sensitivity 639Off scale high0-20The [facility] Physician GroupComment on above:Result Comment: Critical Result : Called to and read back by: GI CRUM at: 04/10/2024 08:50:14 by:[id number] The Troponin units of report have been changed to meet the Chest Pain Accreditation requirement, element EC5.M1l2. Troponin units are changed from pg/ml to ng/L. Also, the decimal is removed and results are in whole numbers. PERFORMED BY: [place] [address] PATHOLOGIST DIRECTOR CHEMISTRY RADHA MANNING M.D.Performed By: #### PP, UFHEP, HS TROP #### [address] [address] USATroponin I High Qznggebfqam491Xes scale high0-[address] [place] [address] Physician GroupComment on above:Result Comment: Critical Result : Called to and read back by: ETHEL MILLARD at: 04/10/2024 04:08:18 by:YASSINE The Troponin units of report have been changed to meet the Chest Pain Accreditation requirement, element EC5.M1l2. Troponin units are changed from pg/ml to ng/L. Also, the decimal is removed and results are in whole numbers. PERFORMED BY: [place] [phone] PATHOLOGIST DIRECTOR CHEMISTRY RADHA MANNING M.D.Performed By: #### PP, UFHEP, HS TROP #### [facility] [address] [place] [address] USATroponin I.cardiac [Mass/volume] in Serum or Plasma by Detection limit <= 0.01 ng/Ordered By: Holly Weinberg on 13-38-1892Alwiipiv I.cardiac DL <= 0.01 ng/mL [Mass/Vol]Troponin I.cardiac [Mass/volume] in Serum or Plasma by Detection limit <= 0.01 ng/Critically [address] Thompson StreetComment on above:Critical Result : Called to and read back by: GI CRUM at: 04/10/2024 08:50:14 by:[id number] Troponin units of report have been changed to meet the Chest Pain Accreditation requirement, element EC5.M1l2. Troponin units are changed from pg/ml to ng/L. Also, the decimal is removed and results are in whole numbers.X-ray reportOrdered By: Maximilian Jenkins on 04-10-2024 Study reportPREMIER [facility] Main [place] [address] [place], [place] [address] XRay Report Signed Patient: Corwin Muller MR#: [id number] : 1945 Acct:[id number] Age/Sex: 79 / M ADM Date: 5 Loc: 4C Room: [address] [place] [address] Type: ADM IN Attending Dr: Jersey Bess [...] Maximilian Jenkins M.D.04/10/2024 8:47 AM Dictation Location: [place] [address] Transcribed By: [facility] 04/10/24 0847 Dictated By: Maximilian Jenkins MD 04/10/2445 Signed By: 04/10/24 0847 [facility] Work Phone: XR chest 1V portableon 80-74-6444RV chest 1V portable [facility] Main [address] [address] XRay Report Signed Patient: Corwin Muller MR#: [id number] : 1945 Acct:[id number] Age/Sex: 79 / M ADM Date: 04/10/24 Loc: 4C Room: [address] [place] [address] Type: ADM IN Attending Dr: Jersey Bess [...] Maximilian Jenkins M.D.04/10/2024 8:47 AM Dictation Location: [place] [address] Transcribed By: [facility] 04/10/24 0847 Dictated By: Maximilian Jenkins MD 04/10/24 0845 Signed By: 04/10/24 0847[facility] Physician GroupaPTT in Platelet poor plasma by Coagulation assayOrdered By: Kurtis Langley on 54-86-2264rXWI Coag (PPP) [Time] Activated partial thromboplastin time (aPTT) in platelet poor plasma by coagulation a25.1-36.5FWyandot Memorial HospitalComment on above:A hematocrit value greater than 55% may lead to inaccurate results in coagulation testing. Patientshaving hematocrit values >55% require a special collection tube for coagulation studies. Please contact the laboratory at [phone] for redraw instructions.Activated partial thromboplastin time (aPTT) in platelet poor plasma by coagulation aon 45-56-9957qOFR Coag (PPP) [Time]Activated partial thromboplastin time (aPTT) in platelet poor plasma by coagulation a22.3-36.2 [facility] HospitalBasophils Auto (Bld) [#/Vol]on 04-09-2024 Basophils (Bld) [#/Vol]Automated basophil count0.0-0.1FWyandot Memorial HospitalBasophils/100 WBC Auto (Bld)on 44-73-2747Cepspuvbp/100 WBC (Bld)Automated basophil %0.2-2.0[facility] HospitalEosinophils/100 WBC Auto (Bld)on 25-79-2139Qvjdqshelyd/100 WBC (Bld)Automated eosinophil %0.9-7.0 [facility] HospitalErythrocyte distribution width Auto (RBC) [Ratio]on 52-48-8973Tkpaunfkrdx distribution width (RBC) [Ratio]Erythrocyte distribution width [Ratio] by Automated count11.0-15.0[facility] HospitalEstimated glomerular filtration rate (GFR) non- Americanon 80-98-5913ULH/1.73 sq M.predicted among non-blacks MDRD (S/P/Bld) [Vol rate/Area]Estimated glomerular filtration rate (GFR) non- AmericanLow>=60 mL/min/1.73m 2FWyandot Memorial HospitalHematocrit Auto (Bld) [Volume fraction]on 24-06-5800Eprubqttiq (Bld) [Volume fraction]Hematocrit [Volume Fraction] of Blood by Automated count42.0-54.0[facility] Hemoglobin [Mass/volume] in Bloodon 14-45-9508Lstkpypnxm (Bld) [Mass/Vol] Hemoglobin [Mass/volume] in Blood14.0-18.0[facility] HospitalINR in Platelet poor plasma by Coagulation assayon 70-48-0628TQD Coag (PPP) [Relative time]INR in Platelet poor plasma by Coagulation assayMercy Health Urbana HospitalComment on above:DESIRED INR:2.0-3.0 CONDITIONS NOT LISTED BELOW2.5-3.5 FOR PROSTHETIC HEART VALVE REPLACEMENT2.5-3.5 RECURRENT THROMBOSISLaboratory - Chemistry and Chemistry - challengeon 88-21-9643Ynbtzty [Mass/Vol]9.4 mg/dL8.5-10.1FWyandot Memorial HospitalChloride [Moles/Vol] 103 mmol/S50-721MjuudlidtMercy Health Urbana HospitalCO2 [Moles/Vol]24.6 mmol/L 21.0-32.0[facility] HospitalCreatinine [Mass/Vol]2.62 mg/dLHigh 0.70-1.30[facility] HospitalGFR/1.73 sq M.predicted MDRD (S/P/Bld) [Vol rate/Area]29 mL/min/{1.73_m2}Low>=60 mL/min/1.73m [address] [place], [place] [address]Glucose [Mass/Vol]108 mg/cKHhkt00-835BwajsrmqwMercy Health Urbana HospitalMagnesium [Mass/Vol]2.0 mg/dL1.8-2.4FWyandot Memorial Hospital Natriuretic peptide B (Bld) [Mass/Vol]8857.0 pg/mLCritically high<=1800.0 [facility] HospitalComment on above:RESULTS CALLED TO Dr. Parker Potassium [Moles/Vol]3.7 mmol/L3.5-5.1FMercy Health Anderson Hospitalodium [Moles/Vol]137 mmol/C220-759VqwmzmimvMercy Health Urbana HospitalUrea nitrogen [Mass/Vol]29.0 mg/dLHigh7.0-18.0[facility] HospitalUrea nitrogen/Creatinine [Mass ratio]11.1 mg/mgMercy Health Urbana Hospital Laboratory - Hematology and Cell countson 71-25-1686Vxigzubx granulocytes/100 WBC (Bld)0.4 %0.0-0.5FWyandot Memorial HospitalLeukocytes [#/volume] corrected for nucleated erythrocytes in Blood by Automated counon 04-48-3780TXF corrected for nucl RBC Auto (Bld) [#/Vol]Leukocytes [#/volume] corrected for nucleated erythrocytes in Blood by Automated coun4.0-11.0[facility] HospitalLymphocytes Auto (Bld) [#/Vol]on 29-16-3708Nusetljhvvp (Bld) [#/Vol]Lymphocytes [#/volume] in Blood by Automated count1.2-3.8[facility] HospitalLymphocytes/100 WBC Auto (Bld)on 04-09-2024 Lymphocytes/100 WBC (Bld)Lymphocytes/100 leukocytes in Blood by Automated count 20.5-60.0[facility] HospitalMCH Auto (RBC) [Entitic mass]on 54-79-3179ZTA (RBC) [Entitic mass]MCH [Entitic mass] by Automated count25.9-34.0 [facility] HospitalMCHC Auto (RBC) [Mass/Vol]on 72-62-3165RDBQ (RBC) [Mass/Vol]MCHC [Mass/volume] by Automated count29.9-35.2FWyandot Memorial HospitalMCV Auto (RBC) [Entitic vol]on 52-23-1593TRW (RBC) [Entitic vol] MCV [Entitic volume] by Automated count80.0-94.0[facility] HospitalMonocytes Auto (Bld) [#/Vol]on 83-55-0679Gspwhwfez (Bld) [#/Vol]Automated blood monocyte countHigh0.3-0.8[facility] HospitalMonocytes/100 WBC Auto (Bld)on 93-67-9592Rnlznexqm/100 WBC (Bld)Automated monocyte %1.7-12.0 [facility] HospitalNeutrophils Auto (Bld) [#/Vol]on 04-09-2024 Neutrophils (Bld) [#/Vol]Neutrophils [#/volume] in Blood by Automated count 1.4-6.5FWyandot Memorial HospitalNeutrophils/100 WBC Auto (Bld)on 58-55-8570Csxwkcdyuvj/100 WBC (Bld)Automated neutrophil %43.0-75.0[facility] HospitalNo Panel Informationon 85-45-8694Vgjeyevb I High Mnvevooetzz859.5 pg/mLCritically high4.0-76.1FW[facility]andot [facility] Hospital Comment on above:RESULTS CALLED TO Dr. Bush-OFF POINTS HAVE BEEN ESTABLISHED BASED ON THE FOURTHUNIVERS DEFINITION OF MYOCARDIAL INFARCTION. THE UPPERREFERENCE LIMIT (URL) OF TROPONIN, DEFINED THE 99THPERCENTILE OF cTnI DISTRIBUTION IN A REFERENCE POPULATION,HAS BEEN CONFIRMED THE DECISION THRESHOLD FORMIDIAGNOSIS.99TH PERCENTILE = 76.2 PG/MLNOTE: HIGH-SENSITIVITY TROPONIN ASSAY IS NOT INTENDED TO BEUSED IN ISOLATION BUT SHOULD BE INTERPRETED IN CONJUNCTIONWITH OTHER DIAGNOSTIC AND CLINICAL INFORMATION.Eosinophils # (Auto)0.4 10 3/uL0.0-0.7FWyandot Memorial HospitalImmature Granulocyte # (Auto)0.04 10 3/uLHigh0.00-0.03[facility] HospitalPlatelet mean volume Auto (Bld) [Entitic vol]on 53-65-1650Kttcxhpf mean volume (Bld) [Entitic vol]Platelet mean volume [Entitic volume] in Blood by Automated count9.5-13.5 [facility] HospitalPlatelets Auto (Bld) [#/Vol]on 04-09-2024 Platelets (Bld) [#/Vol]Platelets [#/volume] in Blood by Automated nusoe350-113 [facility] HospitalProthrombin time (PT)on 41-57-9950EG Coag (PPP) [Time]Prothrombin time (PT)9.0-11.6FWyandot Memorial HospitalRBC Auto (Bld) [#/Vol]on 18-80-3263KDP (Bld) [#/Vol]Erythrocytes [#/volume] in Blood by Automated count4.70-6.10[facility] Southerum or plasma anion gap determinationon 55-39-9940Zfswj gap [Moles/Vol]Serum or plasma anion gap determinationMercy Health Urbana HospitalCBC AUTO DIFFon 34-42-3376LZFQ # 0.0 103/ulNormal0.0-0.1The [facility] HospitalComment on above:Performed By: #### CBC #### [facility] [address] [place] [address] Dr. Ludin ParraBasophils/100 WBC (Bld)0.6 %Normal0.2-2.0[facility] Comment on above:Performed By: #### CBC #### [facility] [address] [place] [address] Dr. Ludin Ching #0.2 103/ulNormal0.0-0.7The St. [facility] HospitalComment on above: Performed By: #### CBC #### [facility] [address] [address] [address] Ludin Whatleyosinophils/100 WBC (Bld)3.1 %Normal0.9-7.0[facility] Comment on above:Performed By: #### CBC #### [facility] [address] [place] [address] Dr. Ludin Whatleyrythrocyte distribution width (RBC) [Ratio]13.1 %Sdsuiu39.0-15.[address] [facility] HospitalComment on above:Performed By: #### CBC #### [facility] [address] [place] [address] Dr. Ludin ParraHematocrit (Bld) [Volume fraction]47.2 %Xaxsdb93.0-54.0The [facility] HospitalComment on above:Performed By: #### CBC #### [facility] [address] [place] [address] Dr. Ludin ParraHemoglobin (Bld) [Mass/Vol]15.8 g/oALmadhl20.0-18.0The [facility] HospitalComment on above:Performed By: #### CBC #### [facility] [address] [place] [address] Dr. Ludin ParraIG #0.03 10e3/ulNormal0.00-0.03The [facility] HospitalComment on above:Performed By: #### CBC #### [facility] [address] [place] [address] Dr. Ludin ParraIG %0.4 %Normal0.0-0.5The [facility]. [facility] HospitalComment on above: Performed By: #### CBC #### [facility] [address] [place] [address] Dr. Ludin SuarezH #1.6 103/ulNormal1.2-3.8The [facility] HospitalComment on above:Performed By: #### CBC #### [facility] [address] [place] [address] Dr. Ludin Pereramphocytes/100 WBC (Bld)22.6 %Wwstkq60.5-60.0The [facility] HospitalComment on above:Performed By: #### CBC #### [facility] [address] [place] [address] Dr. Ludin ParraMANUAL DIFF REQNONormalThe St. Vincent HospitalComment on above: Performed By: #### CBC #### [facility] [address] [place] [address] Dr. Ludin Morgan (RBC) [Entitic mass]29.6 iqOduuld55.9-34.0The [facility] HospitalComment on above:Performed By: #### CBC #### [facility] [address] [place], [place] [id number] Dr. Ludin ZimmermanHC (RBC) [Mass/Vol]33.5 g/zXZlutvz05.9-35.2The [facility] HospitalComment on above:Performed By: #### CBC #### [facility] [address] [place] [address] Dr. Ludin ZimmermanV (RBC) [Entitic vol]88.6 kGXwuwmh46.0-94.0The [facility] HospitalComment on above:Performed By: #### CBC #### [facility] [address] [place] [address] Dr. Ludin Regalado #0.5 103/ulNormal0.3-0.8The [facility] HospitalComment on above:Performed By: #### CBC #### [facility] [address] [place] [address] Dr. Ludin Ferrellocytes/100 WBC (Bld)7.5 %Normal1.7-12.0[facility] Comment on above:Performed By: #### CBC #### [facility] [address] [place] [address] Dr. Ludin Clarke #4.7 103/ulNormal1.4-6.5The [facility] HospitalComment on above:Performed By: #### CBC #### [facility] [address] [place] [address] Dr. Ludin Deweyutrophils/100 WBC (Bld)65.8 %Pwlzdt34.0-75.0The [facility] HospitalComment on above:Performed By: #### CBC #### [facility] [address] [place] [address] Dr. Ludin Allisonlet mean volume (Bld) [Entitic vol]9.0 fLCritically low 9.5-13.5The [facility]. [facility] HospitalComment on above:Performed By: #### CBC #### [facility] [address] [place] [address] Dr. Ludin ParraPLT199 103/awWxhfag384-951Qgi St. Vincent HospitalComment on above: Performed By: #### CBC #### [facility] [address] [address] [address] Ludin ParraRBC5.33 106/ulNormal4.70-6.10The [facility] HospitalComment on above:Performed By: #### CBC #### [facility] [address] [address] [address] Ludin ParraWBC7.1 103/ulNormal4.0-11.0The [facility] HospitalComment on above: Performed By: #### CBC #### [facility] [address] [place] [address] Dr. Ludin ParraPROF CHEM 8 (BAS METB)on 78-86-6118Rkwru gap [Moles/Vol]9.3 mmol/LNormalThe St. Vincent HospitalComment on above:Performed By: #### BMP #### [facility] [address] [place] [address] Dr. Ludin ParraCalcium [Mass/Vol]8.9 mg/dLNormal8.5-10.1[facility] Comment on above:Performed By: #### BMP #### [facility] [address] [place] [address] Dr. Ludin ParraChloride [Moles/Vol]106 mmol/WZeupiy42-720Oaq [facility] Comment on above:Performed By: #### BMP #### [facility] [address] [place] [address] Dr. Ludin ParraCO2 [Moles/Vol]29.7 mmol/OVcbxqj46.0-32.0[facility] Comment on above:Performed By: #### BMP #### [facility] [address] [place] [address] Dr. Ludin ParraCreatinine [Mass/Vol]1.83 mg/dLCritically high0.70-1.30The St. [facility] HospitalComment on above:Performed By: #### BMP #### [facility] [address] [place] [address] Dr. Noland ChangEGFR-AF ZCDCRCMW47 mL/min/1.83c5Qxeljknzud low>=60The [facility] HospitalComment on above:Performed By: #### BMP #### [facility] [address] [address] [address] Ludin WhatleyGFR-NON AF YJYOHLDQ31 mL/min/1.18l6Bkvgxkhtvn low>=60The [facility] HospitalComment on above:Performed By: #### BMP #### [facility] [address] [address] [address] Ludin ParraGlucose [Mass/Vol]85 mg/rEDhpwzv35-782Yxy [facility] Comment on above:Performed By: #### BMP #### [facility] [address] [address] [address] Ludin ParraPotassium [Moles/Vol]4.0 mmol/LNormal3.5-5.1The [facility] Comment on above:Performed By: #### BMP #### [facility] [address] [address] [address] Ludin ParraSodium [Moles/Vol]141 mmol/XDdaled768-760Ptk [facility] Comment on above:Performed By: #### BMP #### [facility] [address] [address] [address] Ludin ParraUrea nitrogen [Mass/Vol]25.0 mg/dLCritically high7.0-18.0The [facility] HospitalComment on above:Performed By: #### BMP #### [facility] [address] [address] [address] Ludin ParraUrea nitrogen/Creatinine [Mass ratio]13.7 mg/mgNormalThe St. Vincent HospitalComment on above:Performed By: #### BMP #### [facility] [address] [address] [address] Ludin Parra Vital Signs Date TimeVital SignValuePerforming LbzaqvcvaBzcfxwco81-16-1221 10:48-0400Body ovshjy667.04 cmBenjaLittlecast Ball DO Work Phone: [facility]10-21-2025 10:48-0400 Body mass index (BMI) [Ratio]26.4 kg/p3Uadrgbxw Ball DO Work Phone: 1(419)[address] [place], [place] 6264310-21-2025 10:48-0400 Body .65 kgBenjamin Ball DO Work Phone: 1(023)[address] [place], [place] 6264310-21-2025 10:48-0400 Diastolic blood ujofyiju06 mm[Hg]Ranjan Ball DO Work Phone: [phone])[address] [place], [place] 6264310-21-2025 10:48-0400 Heart rate56 /minBenjamin Ball DO Work Phone: [phone])[address] [place], [place] 6264310-21-2025 10:48-0400 Respiratory rate12 /minBenjamin Ball DO Work Phone: 1(652)[address] [place], [place] 6264310-21-2025 10:48-0400 Systolic blood lyeagrce638 mm[Hg]Ranjan Ball DO Work Phone: 1(688)[address] [place], [place] 6264310-09-2025 15:08-0400 Body dzenrm915.04 cmBenjamin Ball DO Work Phone: 1(152)[address] [place], [place] 6264310-09-2025 15:08-0400 Body mass index (BMI) [Ratio]26.5 kg/i8Ieyvczgq Ball DO Work Phone: 1(984)[address] [place], [place] 6264310-09-2025 15:08-0400 Body gpahui03.99 kgBenjamin Ball DO Work Phone: 1(578)[address] [place], [place] 6264310-09-2025 15:08-0400 Diastolic blood nicxrqdj59 mm[Hg]Ranjan Ball DO Work Phone: 1(786)[address] [place], [place] [address]64310-09-2025 15:08-0400 Heart rate62 /minBenjamin Ball DO Work Phone: 1(800)[address] [place], [place] 6264310-09-2025 15:08-0400 Respiratory rate16 /minBenjamin Ball DO Work Phone: 1(841)[address] [place], [place] 6264310-09-2025 15:08-0400 SaO2% (BldA) [Mass fraction]96 %Ranjan Ball DO Work Phone: [facility]10-09-2025 15:08-0400 Systolic blood dxsxaukw334 mm[Hg]Ranjan Ball DO Work Phone: [facility]09-10-2025 14:03-0400 Body asfvld138 cmMely Ken MD Work Phone: 1(135)[address]09-10-2025 14:03-0400 Body mass index (BMI) [Ratio]26.37 kg/t3KynvdstMely Ken MD Work Phone: 1(797)[address]09-10-2025 14:03-0400 Body osdlxp69.25 kgMely Ken MD Work Phone: 1(158)[address]09-10-2025 14:03-0400 Diastolic blood bewdufij19 mm[Hg]Mely Kne MD Work Phone: 1(594)[address]09-10-2025 14:03-0400 Heart rate58 /minMely Ken MD Work Phone: 1(960)[address]09-10-2025 14:03-0400 Systolic blood qzfrmodg024 mm[Hg]Mely Ken MD Work Phone: 1(806)[address]09-03-2025 15:25-0400 Body lextcb788.04 cmBenjamin Ball DO Work Phone: [facility]09-03-2025 15:25-0400 Body mass index (BMI) [Ratio]26.3 kg/w7Mprojogl Ball DO Work Phone: [facility]09-03-2025 15:25-0400 Body .03 kgBenjamin Ball DO Work Phone: [facility]09-03-2025 15:25-0400 Diastolic blood clesehrz26 mm[Hg]Ranjan Ball DO Work Phone: [facility]09-03-2025 15:25-0400 Diastolic blood rzmoixlf43 mm[Hg]Ranjan Ball DO Work Phone: 1(419)[address] [place], [place] 6264309-03-2025 15:25-0400 Heart rate60 /minBenjamin Ball DO Work Phone: 1(419)[facility] [place], [place] 9776109-03-2025 15:25-0400 Respiratory rate12 /minBenjamin Ball DO Work Phone: 1(419)[address] [place], [place] 6264309-03-2025 15:25-0400 Systolic blood fvjfnzei684 mm[Hg]Ranjan Ball DO Work Phone: 1(419)[address] [place], [place] 6264309-03-2025 15:25-0400 Systolic blood jciqcjra814 mm[Hg]Ranjan Ball DO Work Phone: 1(419)[address] [place], [place] 6264308-04-2025 14:02-0400 Body .04 cmBenjamin Ball DO Work Phone: 1(419)[address] [place], [place] 6264308-04-2025 14:02-0400 Body mass index (BMI) [Ratio]26.2 kg/p5Hctupvme Ball DO Work Phone: 1(419)[address] [place], [place] 6264308-04-2025 14:02-0400 Body fecpkb08.63 kgBenjamin Ball DO Work Phone: 1(419)[address] [place], [place] 6264308-04-2025 14:02-0400 Diastolic blood uaiseirj10 mm[Hg]Ranjan Ball DO Work Phone: 1(419)[address] [place], [place] 6264308-04-2025 14:02-0400 Heart rate61 /minBenjamin Ball DO Work Phone: 1(419)[address] [place], [place] 6264308-04-2025 14:02-0400 Respiratory rate16 /minBenjamin Ball DO Work Phone: 1(419)[address] [place], [place] 6264308-04-2025 14:02-0400 SaO2% (BldA) [Mass fraction]96 %Ranjan Ball DO Work Phone: 1(419)[address] [place], [place] 6264308-04-2025 14:02-0400 Systolic blood dwvjmaff293 mm[Hg]Ranjan Ball DO Work Phone: 1419)[address] [place], [place] 6264307-30-2025 15:06-0400 Body .04 cmBenjamin Ball DO Work Phone: 1419)[address] [place], [place] 6264307-30-2025 15:06-0400 Body mass index (BMI) [Ratio]25.9 kg/v9Hlozagwt Ball DO Work Phone: 1(419)[address] [place], [place] 6264307-30-2025 15:06-0400 Body vyehyb76.84 kgBenjamin Ball DO Work Phone: 1419)[address] [place], [place] 6264307-30-2025 15:06-0400 Diastolic blood bxcaetdl33 mm[Hg]Ranjan Ball DO Work Phone: 1419)[address] [place], [place] 6264307-30-2025 15:06-0400 Heart rate69 /minBenjamin Ball DO Work Phone: 1(419)[address] [place], [place] 6264307-30-2025 15:06-0400 Respiratory rate12 /minBenjamin Ball DO Work Phone: 1419)[address] [place], [place] 6264307-30-2025 15:06-0400 Systolic blood evkehbjv852 mm[Hg]Ranjan Ball DO Work Phone: 1419)[address] [place], [place] 6264306-17-2025 10:40-0400 Body oplfed819.04 cmBenjamin Ball DO Work Phone: 1419)[address] [place], [place] 6264306-17-2025 10:40-0400 Body mass index (BMI) [Ratio]25.8 kg/g7Qhjwcsss Ball DO Work Phone: 1419)[address] [place], [place] 6264306-17-2025 10:40-0400 Body .21 kgBenjamin Ball DO Work Phone: 1419)[address] [place], [place] 6264306-17-2025 10:40-0400 Diastolic blood ydgvpkns72 mm[Hg]Ranjan Ball DO Work Phone: 1419)[address] [place], [place] 6264306-17-2025 10:40-0400 Heart rate61 /minBenjamin Ball DO Work Phone: 1(419)[address]06-17-2025 10:40-0400 Respiratory rate12 /minBenjamin Ball DO Work Phone: 1(419)[address] [place], [place] 6264306-17-2025 10:40-0400 Systolic blood niqcoxbe489 mm[Hg]Ranjan Ball DO Work Phone: 1(419)[address] [place], [place] 6264305-12-2025 14:34-0400 Body eijdsa038.04 cmBenjamin Ball DO Work Phone: 1(419)[address] [place], [place] 6264305-12-2025 14:34-0400 Body mass index (BMI) [Ratio]26 kg/s1Drganmxm Ball DO Work Phone: 1(419)[address] [place], [place] 6264305-12-2025 14:34-0400 Body jtfebomktxm14.8 [degF]Ranjan Ball DO Work Phone: 1(419)[address] [place], [place] 6264305-12-2025 14:34-0400 Body effvsn58.06 kgBenjamin Ball DO Work Phone: 1(419)[address] [place], [place] 6264305-12-2025 14:34-0400 Diastolic blood ushxennl24 mm[Hg]Ranjan Ball DO Work Phone: 1(419)[address] [place], [place] 6264305-12-2025 14:34-0400 Heart rate66 /minBenjamin Ball DO Work Phone: 1(419)[address] [place], [place] 6264305-12-2025 14:34-0400 Respiratory rate18 /minBenjamin Ball DO Work Phone: 1(419)[address] [place], [place] 6264305-12-2025 14:34-0400 SaO2% (BldA) [Mass fraction]96 %Ranjan Ball DO Work Phone: 1(419)[address]05-12-2025 14:34-0400 Systolic blood lhxdpikf141 mm[Hg]Ranjan Ball DO Work Phone: 1(419)[address] [place], [place] 6264305-05-2025 14:56-0400 Body qxwaug146.04 cmBenjamin Ball DO Work Phone: [phone])980-[address] [place], [place] 9776105-05-2025 14:56-0400 Body mass index (BMI) [Ratio]25.2 kg/n1Cwsxsrsz Ball DO Work Phone: [phone])087-[address] [place], [place] 9776105-05-2025 14:56-0400 Body jlwdha22.06 kgBenjamin Ball DO Work Phone: 1419)[address] [place], [place] 6264305-05-2025 14:56-0400 Diastolic blood mm[Hg]Ranjan Ball DO Work Phone: 1419)[address] [place], [place] 6264305-05-2025 14:56-0400 Heart rate66 /minBenjamin Ball DO Work Phone: 1419)[address] [place], [place] 6264305-05-2025 14:56-0400 Respiratory rate12 /minBenjamin Ball DO Work Phone: 1(419)[address] [place], [place] 6264305-05-2025 14:56-0400 Systolic blood rvrlxwze573 mm[Hg]Ranjan Ball DO Work Phone: 1419)[address] [place], [place] 6264304-03-2025 13:02-0400 Body yjkgrx379.04 cmBenjamin Ball DO Work Phone: 1419)[address] [place], [place] 6264304-03-2025 13:02-0400 Body mass index (BMI) [Ratio]26 kg/b3Zqhmetyg Ball DO Work Phone: 1(419)[address] [place], [place] 6264304-03-2025 13:02-0400 Body hcnmheohfdz40.9 [degF]Ranjan Ball DO Work Phone: 1419)[address] [place], [place] 6264304-03-2025 13:02-0400 Body fvfliy61.06 kgBenjamin Ball DO Work Phone: 1419)[facility] [place], [place] 9776104-03-2025 13:02-0400 Diastolic blood ujxedcjl72 mm[Hg]Ranjan Ball DO Work Phone: [phone])[address]04-03-2025 13:02-0400 Heart rate64 /minBenjamin Ball DO Work Phone: [phone])007-[address] [place], [place] 9776104-03-2025 13:02-0400 Respiratory rate16 /minBenjamin Ball DO Work Phone: [phone])873-[address] [place], [place] 9776104-03-2025 13:02-0400 SaO2% (BldA) [Mass fraction]96 %Ranjan Ball DO Work Phone: 1419)[address] [place], [place] 6264304-03-2025 13:02-0400 Systolic blood zcrxaipx755 mm[Hg]Ranjan Ball DO Work Phone: 1419)[address] [place], [place] 6264303-19-2025 10:27-0400 Body ngpnym470.04 cmBenjamin Ball DO Work Phone: 1419)[address] [place], [place] 6264303-19-2025 10:27-0400 Body mass index (BMI) [Ratio]26.6 kg/w6Cucmvbcq Ball DO Work Phone: 1(419)[address] [place], [place] 6264303-19-2025 10:27-0400 Body .45 kgBenjamin Ball DO Work Phone: 1419)[address] [place], [place] 6264303-19-2025 10:27-0400 Diastolic blood mm[Hg]Ranjan Ball DO Work Phone: 1(419)[address] [place], [place] 6264303-19-2025 10:27-0400 Heart rate57 /minBenjamin Ball DO Work Phone: 1(419)[address] [place], [place] 6264303-19-2025 10:27-0400 Respiratory rate12 /minBenjamin Ball DO Work Phone: 1419)[facility] [place], [place] 9776103-19-2025 10:27-0400 Systolic blood irfpogji387 mm[Hg]Ranjan Ball DO Work Phone: [phone])[address]03-10-2025 10:15-0400 Body fdliyu697 Black Ken MD Work Phone: [facility]03-10-2025 10:15-0400 Body mass index (BMI) [Ratio]27.24 kg/b8OcjfoujMely Ken MD Work Phone: [facility]03-10-2025 10:15-0400 Body .52 kgMely Ken MD Work Phone: [phone]03-10-2025 10:15-0400 Diastolic blood mm[Hg]Mely Ken MD Work Phone: 1(885)[address] [place], [place] 9175003-10-2025 10:15-0400 Heart rate53 /Charla Ken MD Work Phone: 1(187)385-[address] [place], [place] 9175003-10-2025 10:15-0400 Systolic blood urcorajx854 mm[Hg]Mely Ken MD Work Phone: [facility]03-04-2025 15:21-0500 Body yzjhvq881.04 cmBenjamin Ball DO Work Phone: [facility]03-04-2025 15:21-0500 Body mass index (BMI) [Ratio]26.7 kg/x9Whlwchzc Ball DO Work Phone: [phone]03-04-2025 15:21-0500 Body hnhydwrkdlx46.8 [degF]Ranjan Ball DO Work Phone: [phone]03-04-2025 15:21-0500 Body gchkig48.79 kgBenjamin Ball DO Work Phone: 1([phone]03-04-2025 15:21-0500 Diastolic blood azvwtsnd31 mm[Hg]Ranjan Ball DO Work Phone: [facility]03-04-2025 15:21-0500 Heart rate58 /minBenjamin Ball DO Work Phone: 1(489)900-94[facility]03-04-2025 15:21-0500 Respiratory rate18 /minBenjamin Ball DO Work Phone: 1(419)[facility] [place], [place] 9776103-04-2025 15:21-0500 SaO2% (BldA) [Mass fraction]96 %Ranjan Ball DO Work Phone: 1(419)[facility] [place], [place] 9776103-04-2025 15:21-0500 Systolic blood uyabthst797 mm[Hg]Ranjan Ball DO Work Phone: 1(419)[facility] [place], [place] 9776103-04-2025 10:32-0500 Body .04 cmBenjamin Ball DO Work Phone: 1(419)[address] [place], [place] 6264303-04-2025 10:32-0500 Body mass index (BMI) [Ratio]26.7 kg/o3Hlexavkq Ball DO Work Phone: 1(419)[address] [place], [place] 6264303-04-2025 10:32-0500 Body esimzs49.79 kgBenjamin Ball DO Work Phone: 1(419)[address] [place], [place] 6264303-04-2025 10:32-0500 Diastolic blood wmlvdhca26 mm[Hg]Ranjan Ball DO Work Phone: 1(419)[address] [place], [place] 6264303-04-2025 10:32-0500 Heart rate53 /minBenjamin Ball DO Work Phone: 1(419)[address] [place], [place] 6264303-04-2025 10:32-0500 Systolic blood gsxwwlue497 mm[Hg]Ranjan Ball DO Work Phone: 1(419)[address] [place], [place] 6264302-27-2025 11:50-0500 Diastolic blood shoognqx51 mm[Hg]Ranjan Ball DO Work Phone: 1(419)[facility] [place], [place] 9776102-27-2025 11:50-0500 Heart rate61 /minBenjamin Ball DO Work Phone: 1(419)[facility] [place], [place] 9776102-27-2025 11:50-0500 Respiratory rate17 /minBenjamin Ball DO Work Phone: 1(419)[address] [place], [place] 6264302-27-2025 11:50-0500 SaO2% (BldA) [Mass fraction]93 %Ranjan Ball DO Work Phone: 1(110)049-64[facility]02-27-2025 11:50-0500 Systolic blood mm[Hg]Ranjan Ball DO Work Phone: 1(796)323-07[facility]02-27-2025 08:00-0500 Body obkwjebbotm17.8 [degF]Ranjan Ball DO Work Phone: 1(618)742-60[facility]02-27-2025 06:00-0500 Body .3 kgBenjamin Ball DO Work Phone: [phone]02-26-2025 16:02-0500 Body psjsiv356.04 cmBenjamin Ball DO Work Phone: [phone] [place], [place] 9776102-25-2025 16:00-0500 Inhaled oxygen flow rate2 L/minBenjamin Ball DO Work Phone: [phone] [place], [place] 9776102-21-2025 04:00-0500 Inhaled oxygen qxfeooexpjwtf93 %Ranjan Ball DO Work Phone: [phone]02-18-2025 14:41-0500 Body qpqduy099.04 [facility]02-18-2025 14:41-0500Body mass index (BMI) [Ratio]28.3 kg/t5YgusmeaxbMercy Health [facility]02-18-2025 14:41-0500Body .4 kgMer[facility]02-18-2025 14:41-0500Diastolic blood ihgpzhos58 mm[Hg][facility] 04-09-2024 14:41-0500Heart bfdy266 /[facility] 04-09-2024 14:41-0500Respiratory rate16 /[facility] 04-09-2024 14:41-0500Systolic blood yuzevtks166 mm[Hg][facility]09-24-2024 09:58-0400Body jcmron787.04 cmMer[facility]09-24-2024 09:58-0400Body mass index (BMI) [Ratio]27.3 kg/v6VtknfuqteMercy Health [facility]09-24-2024 09:58-0400Body mvdyrc156.66 [facility] 09:58-0400Diastolic blood efcorqvb59 mm[Hg] [facility]09-24-2024 09:58-0400Heart rate83 /[facility]09-24-2024 09:58-0400Respiratory rate14 /[facility]09-24-2024 09:58-3201FfS2% (BldA) [Mass fraction]97 % [facility]09-24-2024 09:58-0400Systolic blood mm[Hg][facility]05-07-2024 10:58-0400Body ppgxvi882.04 cm [facility]05-07-2024 10:58-0400Body mass index (BMI) [Ratio]27.5 kg/b8AoaqjmygxMer[facility] Health [facility]05-07-2024 10:58-0400Body tirqcx664.68 kgMer[facility]05-07-2024 10:58-0400Diastolic blood horlrjkt41 mm[Hg][facility]05-07-2024 10:58-0400 Heart rate91 /[facility]05-07-2024 10:58-0400 Respiratory rate12 /[facility]05-07-2024 10:58-0400 Systolic blood iirfxskm509 mm[Hg][facility]12-22-2023 08:30-0500Body .04 cmBenjamin Ball Other [employer] Other 12-22-2023 08:30-0500Body mass index (BMI) [Ratio] 27.87 kg/w7Efgtkgod Ball Other [employer] Other 12-22-2023 08:30-0500Body .87 kgBenjamin Ball Other [employer] Other 12-22-2023 08:30-0500Diastolic blood bnclakkb96 mm[Hg] Ranjan Ball Other [employer] Other 12-22-2023 08:30-0500Respiratory rate12 /minBenjamin Ball Other [employer] Other 12-22-2023 08:30-0500Systolic blood wreyohoq248 mm[Hg] Ranjan Ball Other [employer] Other 08-14-2023 15:45-0400Body .04 cmBenjamin Ball Other [employer] Other 08-14-2023 15:45-0400Body mass index (BMI) [Ratio] 26.14 kg/a0Hwihctgw Ball Other [employer] Other 08-14-2023 15:45-0400Body .43 kgBenjamin Ball Other [employer] Other 08-14-2023 15:45-0400Diastolic blood nijzrpvl73 mm[Hg] Ranjan Ball Other [employer] Other 08-14-2023 15:45-0400Respiratory rate12 /minBenjamin Ball Other [employer] Other 08-14-2023 15:45-0400Systolic blood fyeovtxk245 mm[Hg] Ranjan Ball Other [employer] Other 05-30-2023 15:00-0400Body ftgarh912.04 cmBenjamin Ball Other [employer] Other 05-30-2023 15:00-0400Body mass index (BMI) [Ratio] 26.63 kg/d1UehmckjeRanjan Andersen Other [employer] Other 05-30-2023 15:00-0400Body esmspq08.25 kgRanjan Andersen Other [employer] Other 05-30-2023 15:00-0400Diastolic blood epgsfqfy10 mm[Hg] Ranjan Andersen Other [employer] Other 05-30-2023 15:00-0400Respiratory rate12 /minRanjan Andersen Other [employer] Other 05-30-2023 15:00-0400Systolic blood sqxujmuj055 mm[Hg] Ranjan Andersen Other [employer] Other Encounters Encounter DateEncounter TypeCare ProviderFacilityStart: 12-10-2024 End: 12-90-5022zdfrpcbfzuZvrxfpvr Ball DO Work Phone: -[facility] 12-10-2024 End: 31-86-5699Eyppqlo encounter procedureBendenisha Andersen DO-[facility] Medical [facility] Work Phone: Start: 11-28-2024 End: 90-28-7546xjnuhuwllfRvetjrks Ball DO Work Phone: [facility] Work Phone: Start: 11-28-2024 End: 01-51-3597Kxzphjn encounter procedureTobi Monroy MD-[facility] Work Phone: Start: 33-77-2552Zco-patient / Non-visitTobi Monroy MD -[facility] Work Phone: Start: 11-12-2024 End: 26-58-6682oioevowbumVhyphpa TraboulssiFacility:[facility] Southtart: 84-78-4375Uwl-patient / Non-visitChbecki Rojo MD- [facility] Work Phone: Start: 10-30-2024 End: 99-47-0964Pbgdgs outpatient visit 25 minutesMely Ken MD Work Phone: uh [facility] on above:Cardiomyopathy, ischemic (Primary Dx); High risk medication use; Persistent atrial fibrillation (Multi); Mixed hyperlipidemia; Essential hypertension; 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 IV, 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); Abnormal stress test; Anticoagulation monitoring, special range; BMI 26.0-26.9,adult; Never smoked tobaccoStart: 10-23-2024 End: 41-35-9918eksoanzwgnEnpvvzfq Ball DO Work Phone: [facility] Work Phone: Start: 10-23-2024 End: 89-02-5513Nmfpeks encounter procedureBenjamin Ball DO-[facility] Work Phone: Start: 09-24-2024 End: 44-20-8960tcacwjzktaVvjswksk Ball DO Work Phone: [facility] Work Phone: Start: 09-24-2024 End: 26-80-8517Tcygyod encounter procedureBenjamin Ball DO-[facility] Work Phone: Start: 09-23-2024 End: 86-67-6668kqgcnctzzpQewcuosh Ball DO Work Phone: [facility] Work Phone: Start: 09-23-2024 End: 14-45-1797Dbbswob encounter procedureTobi Monroy MD-[facility] [place] Work Phone: Start: 09-23-2024 End: 84-37-8528ijesnoljemVzdzfctd Ball DO Work Phone: [facility] Work Phone: Start: 09-23-2024 End: 56-31-2081Diumjqu encounter procedureTobi Monroy MD-[facility] Work Phone: Start: 09-18-2024 End: 05-60-4245rlblnxeosqLoffhnaj Ball DO Work Phone: [facility] Work Phone: Start: 09-18-2024 End: 51-28-4176Temnquo encounter procedureBenjamin Ball DO-[facility] Work Phone: Start: 24-65-4063Ylz-patient / Non-visitTobi Monroy MD -[facility] [employer] Work Phone: Start: 08-06-2024 End: 42-22-3476Euzmfxq encounter procedureBenjamin Ball DO-[facility] Work Phone: Start: 07-01-2024 End: 51-32-5005cugoptzxrlRbnijetr Ball DO Work Phone: [facility] Work Phone: Start: 07-01-2024 End: 96-83-5875Gnqobeg encounter procedureBenjamin Ball DO Work Phone: [facility] Work Phone: Start: 06-24-2024 End: 03-42-3436wherztahrxWzdxcqez Ball DO Work Phone: [facility] Work Phone: Start: 06-24-2024 End: 95-67-6942Vcbdbuk encounter procedureBenjamin Ball DO Work Phone: [facility] Work Phone: Start: 25-87-0371Yvk-patient / Non-visitBenjamin Ball DO Work Phone: [facility] Work Phone: Start: 05-23-2024 End: 22-25-7469mflhsbtolnJkpgiftj Ball DO Work Phone: [facility] Work Phone: Start: 05-23-2024 End: 83-66-9965Jpgwgip encounter procedureBendenisha Ball DO Work Phone: [facility]ician [facility] Work Phone: Start: 65-28-1309Pwa-patient / Non-visitBenhonoriomin Ball DO Work Phone: [facility]ician [facility] Work Phone: Start: 05-08-2024 End: 12-44-0937mwhdcmjgwmRqjeywkh Ball DO Work Phone: [facility] Work Phone: Start: 05-08-2024 End: 09-71-0833Xezhztp encounter procedureBenhonoriomin Ball DO Work Phone: [facility] Physician [facility] Work Phone: start: 65-16-8171Qvy-patient / Non-visitBenhonoriomin Ball DO Work Phone: [facility] Physician [facility] Work Phone: Start: 04-29-2024 End: 60-99-2088Pggbvkknzcfg care manage srvc 14 day dischargeMely Ken MD Work Phone: uh [facility] on above:Cardiomyopathy, ischemic (Primary Dx); Tachycardia; Persistent atrial fibrillation (Multi); High risk medication use; Abnormal stress test; Mixed hyperlipidemia; Essential hypertension; 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 IV, 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); BMI 27.0-27.9,adultStart: 04-23-2024 End: 18-26-7732hwpnrjqhhrCconuolp Ball DO Work Phone: [facility] Work Phone: Start: 04-23-2024 End: 76-62-1669Uqqjaaw encounter procedureBenjamin Ball DO Work Phone: [facility] Physician [facility] [place] Work Phone: Start: 04-23-2024 End: 30-42-1358vbfddepoueAfhpujkw Ball DO Work Phone: [facility] Work Phone: Start: 04-23-2024 End: 86-44-6200Fhybrrk encounter procedureBenjamin Ball DO Work Phone: [facility] Physician [facility] Work Phone: Start: 01-30-6442Fkt-patient / Non-visitBenjamin Ball DO Work Phone: [facility] Physician [facility] Work Phone: Start: 64-18-8008Gds-patient / Non-visitBenjamin Ball DO Work Phone: [facility] Physician [facility] Work Phone: Start: 47-31-2115Oju-patient / Non-visitBenjamin Ball DO Work Phone: [facility] Physician [facility] Card[facility] Work Phone: Start: 41-00-2083Yml-patient / Non-visitBenjamin Ball DO Work Phone: [facility] Physician [facility] [place] Work Phone: Start: 15-57-4909Yum-patient / Non-visitBenjamin Ball DO Work Phone: [facility] Work Phone: Start: 04-10-2024 End: 79-21-5777Mqkudmsnqp and management of inpatientBendenisha Ball DO Work Phone: [facility] Work Phone: Start: 04-09-2024 End: 36-56-3686wmytgeweekLunkdblhwSub[facility] Work Phone: Start: 04-09-2024 End: 84-31-3824Kbmwyuo encounter procedureAt[facility] Work Phone: Start: 11-14-2023 End: 56-57-4723ouvtszndxuYfapssxlx[facility] Work Phone: Start: 11-14-2023 End: 69-76-0447Ilwhihb encounter procedureAt[facility] Health [facility] Work Phone: Start: 06-27-2023 End: 40-71-6755epiycnhbhtXtddiarhdK[facility]tering Health [facility] Work Phone: Start: 06-27-2023 End: 35-63-7961Xgzmwjl encounter procedureAtrium Health [facility] Work Phone: Start: 02-10-2023 End: 48-27-0745zzjvuolebaQfxlvyob Ball Other [employer] Other Start: 04-77-7145Slahyf outpatient visit 15 minutes Ranjan BallFPG [facility] ClinicStart: 11-07-2022 End: 01-48-6905etghzsjpfzGhinjqxp Ball Other [employer] Other Start: 52-31-8647Vugfnuskb encounterBenjamin BallFPG [facility] Medical ClinicStart: 10-11-2022 End: 29-60-1601odghfxtslwMtpvrrms Ball Other [employer] Other Start: 53-69-0191Icpmqspkv encounterBenjamin BallFPG [facility] Medical ClinicStart: 10-03-2022 End: 55-09-5033ldyltpzmbsJuvudraw Ball Other [employer] Other Start: 55-62-3897Onecgi outpatient visit 15 minutes Ranjan Andersen Medical ClinicStart: 07-19-2022 End: 23-58-5485lpcpcwtpaqNkxxzzer Ball Other [facility] [employer] Other Start: 09-28-3259Strbwt outpatient visit 15 minutes Ranjan Andersen Medical ClinicStart: 12-03-2021 End: 16-20-0485lzqkxahcczZP RANJAN ANDERSENFacility:H1 Procedures DateProcedureProcedure DetailPerforming ClinicianStart: 02-66-2919Rdi routine ecg w/least 12 lds w/i&rMdilan Ken MD Work Phone: Start: 84-46-9914Umgmd cultureBesylwia Ball DO Work Phone: Start: 28-23-5476Cdt routine ecg w/least 12 lds w/i&r Mely Ken MD Work Phone: Start: 99-97-1297Uzlvquprlsdx myocardial perfusion stress studyBendenisha Ball DO Work Phone: Start: 43-37-9310Prmay cultureBendenisha Ball DO Work Phone: Start: 70-02-8830Dunyrmobtqpxsyc of bilateral kidneys Ranjan Andersen DO Work Phone: Start: 03-21-5889Dllxs chest X-rayBendenisha Ball DO Work Phone: Start: 79-71-5816CIL screeningDR RANJAN ANDERSENComment on above:Performed By: #### [facility] #### [facility] [address] [place] [address] Dr. Ludin ParraStart: 06-00-6859Asnwjzkufhzefd screeningBendenisha Ball Other Start: 75-01-2791Ezjxitagc for malignant neoplasm of colonRanjan Andersen Other Screening for malignant neoplasm of prostateRanjan Andersen Other Plan of Treatment DateCare ActivityDetailAuthorStart: 96-34-8077VTbA/Tdap/Td Vaccines (2 - Tdap) DTaP/Tdap/Td Vaccines (2 - Tdap)[facility]: 06-12-2025 End: 70-04-6457Yldjkha encounter istxfpfxz36/23/2026 3:40 PM EDT Office Visit [facility] [address] [facility] [address] [place] [address] Mely Ken MD [address] [facility] [address] [place] [address] [facility]: 94-21-1349EoxvgeudosjwnyxwHfysetrfmucybz [facility]: 10-30-2024 End: 67-96-7077Pjykkof aminotransferase [Enzymatic activity/volume] in Serum or Plasma by With P-5'-PAlanine Aminotransferase Lab Routine High risk medication use Persistent atrial fibrillation (Multi) Expected: 10/30/2024 (Approximate), Expires: 10/30/2025[facility] Service Area Work Phone: Comment on above:Expected: 10/30/2024 (Approximate), Expires: 10/30/2025Start: 10-30-2024 End: 55-21-9337Rvzlx metabolic 2000 panel - Serum or PlasmaBasic Metabolic Panel Lab Routine High risk medication use Persistent atrial fibrillation (Multi) Ex pected: 10/30/2024 (Approximate), Expires: 10/30/2025[facility] Work Phone: Comment on above:Expected: 10/30/2024 (Approximate), Expires: 10/30/2025Start: 10-30-2024 End: 64-72-2722Ioicvsia Pulmonary Function Test (Spirometry/DLCO/Lung Volumes) Complete Pulmonary Function Test (Spirometry/DLCO/Lung Volumes) PFT Routine High risk medication use Persistent atrial fibrillation (Multi) Expected: 10/30/2024 (Approximate), Expires: 10/30/2025[facility] Work Phone: Comment on above:Expected: 10/30/2024 (Approximate), Expires: 10/30/2025Start: 10-30-2024 End: 60-25-8616Nikdejg encounter yhyjqmqhj99/10/2025 2:00 PM EDT Office Visit [facility] [address] [facility] [address] [place] [address] Mely Ken MD [address] [facility] [address] [place] [address] [facility]: 10-30-2024 End: 34-61-7600Nudtyjfgsev [Units/volume] in Serum or PlasmaThyroid Stimulating Hormone Lab Routine High risk medication use Persistent atrial fibrillation (Mul ti) Expected: 10/30/2024 (Approximate), Expires: 10/30/2025UnPremier Health [facility] Center Work Phone: Comment on above:Expected: 10/30/2024 (Approximate), Expires: 10/30/2025Start: 10-30-2024 End: 55-24-0581HU Chest 2 ViewsXR chest 2 views Imaging Routine High risk medication use Persistent atrial fibrillation (Multi) Expected: 10/30/2024 (Approximate), Expires: 10/30/2025UnPremier Health Atrium Medical Center Work Phone: Comment on above:Expected: 10/30/2024 (Approximate), Expires: 10/30/2025Start: 96-17-6149AELCX-19 Vaccine ( season)COVID- 19 Vaccine ( season)[facility] CenterSt[facility] [place]: 80-10-5664Cmbgexgsg vaccinationInfluenza Vaccine (#1)[facility]: 49-14-5811UmqsbProMedica [facility]: 14-68-6213Vnajqccf identified in Urine by CultureUrine [facility]: 04-29-2024 End: 02-37-2629Nsnygkhjx aminotransferase [Enzymatic activity/volume] in Serum or Plasma by With P-5'-PAspartate Aminotransferase Lab Routine Persistent atrial fibrillation (Multi) High risk medication use Expected: 04/29/2024 (Approximate), Expires: 04/29/2025[facility] Service Area Work Phone: Comment on above:Expected: 04/29/2024 (Approximate), Expires: 04/29/2025Start: 04-29-2024 End: 87-85-1580Fwxlg metabolic 2000 panel - Serum or PlasmaBasic Metabolic Panel Lab Routine Persistent atrial fibrillation (Multi) High risk medication use Ex pected: 04/29/2024 (Approximate), Expires: 04/29/2025[facility] Work Phone: Comment on above:Expected: 04/29/2024 (Approximate), Expires: 04/29/2025Start: 04-29-2024 End: 45-08-8800Wzjrxznt Pulmonary Function Test (Spirometry/DLCO/Lung Volumes) Complete Pulmonary Function Test (Spirometry/DLCO/Lung Volumes) PFT Routine Persistent atrial fibrillation (Multi) High risk medication use Expected: 04/29/2024 (Approximate), Expires: 04/29/2025[facility] Work Phone: Comment on above:Expected: 04/29/2024 (Approximate), Expires: 04/29/2025Start: 04-29-2024 End: 00-24-5556Ewaulgkzdsj [Units/volume] in Serum or PlasmaThyroid Stimulating Hormone Lab Routine Persistent atrial fibrillation (Multi) High risk medication use Expected: 04/29/2024 (Approximate), Expires: 04/29/2025[facility] Work Phone: Comment on above:Expected: 04/29/2024 (Approximate), Expires: 04/29/2025Start: 04-29-2024 End: 28-56-0580QS Chest 2 ViewsXR chest 2 views Imaging Routine Persistent atrial fibrillation (Multi) High risk medication use Expected: 04/29/2024 (Approximate), Expires: 04/29/2025UnPremier Health Atrium Medical Center Work Phone: Comment on above:Expected: 04/29/2024 (Approximate), Expires: 04/29/2025Start: 89-13-3684NvhdrwacsPremier Health [facility] Southtart: 78-79-2659Yyrujwed to rehabilitation physicianMer[facility] Start: 42-32-8405Fhgujcik to nephrologistPremier Health [facility] Hospital Southtart: 11-92-3951Gnvwwfcw admissionPrem[facility] Health [facility] Southtart: 04-10-2024 Referral to cardiologistPremier Health [facility] Hospital Southtart: 46-25-5911VBFOC- 19 Vaccine ( season)COVID-19 Vaccine ( season)[facility]: 44-37-2432Dumkjraed vaccinationInfluenza Vaccine (#1)[facility]: 17-43-8473UET High Risk: (Elderly (60+) or Population) (1 - 1-dose 75+ series)RSV High Risk: (Elderly (60+) or Population) (1 - 1-dose 75+ series)[facility]: 50-76-2397Rdrbvz Vaccines (1 of 2)Zoster Vaccines (1 of 2) [facility]: 99-73-2993JWsI/Tdap/Td Vaccines (1 - Tdap)DTaP/Tdap/Td Vaccines (1 - Tdap)[facility]: 44-97-8772Mipmrxhrbokb vaccinationPneumococcal Vaccine (1 of 2 - PCV)[facility]: 16-89-5192Nxcijdwp mellitus screeningDiabetes ScreeningUnDelaware County Hospital: 30-36-2076Hffurtehep measurementCreatinine LevelUnDelaware County Hospital: 1944 Lipid panelLipid PanelUnDelaware County Hospital: 1944Medicare Annual Wellness VisitMedicare Annual Wellness Visit (AWV)[facility]: 45-61-5689Uzyrcpwhn measurementPotassium LevelUnDelaware County Hospital: 49-04-4039Gjlxqeh stimulating hormone measurement TSH [facility] CityPatient EducationKnow your [facility] Work Phone: Patient referralMercy Health [facility] Work Phone: Renal function 2000 panel - Serum or [facility] CenterRen[facility] function 1999 panel - Serum or [facility] CenterRenal function 1999 panel - Serum or [facility] CenterRenal function 1999 panel - Serum or [facility] CenterRenal function 1999 panel - Serum or [facility] Immunizations Immunization DateImmunizationNotesCare HgfdufhhEeczjkil56-91-5675YCGJG-81 Vaccine Brigida - Documentation Purposes OnlyBendenisha Andersen Other [facility]09-21-2017diphtheria, tetanus toxoids and acellular pertussis vaccine, unspecified formulation Ranjan Andersen Other [facility] Payers DatePayer CategoryPayerPolicy [id number] Health [id number]-pay2009MedicareMEDICARE RAILROAD [id number] [id number] [id number] [id number] Social History DateTypeDetailFacilityStart: 04-29-2024 End: 31-51-2231Dbr Assigned At [facility] [employer] Other Start: 02-09-2023 End: 60-33-9951Simaswi smoking status NHISNever smoked tobacco (finding) [facility]: 00-14-1318Ieg Assigned At [facility]: 04-09-2024 End: 25-10-4569BsrBivx (finding)[facility]: 04-15-2024 End: 19-60-0202ZVKW Follow upSDOH Follow upTr[facility]ull [facility] Work Phone: Start: 73-69-6691Bbwgjxt use and exposureSmokeless tobacco non-userUnPremier Health [facility] Medical Center Work Phone: Start: 04-29-2024 End: 45-51-7679Vasdrnhvc beverage intakeEx-drinker (finding)[facility] Work Phone: Start: 04-29-2024 End: 47-33-9777Jgbjbyc of Social functionUnPremier Health [facility] Medical Center Work Phone: Start: 60-66-7270Gdwnnyl Commentmaybe once monthly [facility] Work Phone: Start: 09-23-0488Nmf assigned at birthNot on file [facility] Work Phone: Start: 04-19-2024 End: 82-49-3740Dorwgvzs to SARS-CoV-2 (event)Not sureUnPremier Health Atrium Medical CenterStart: 50-86-5771FzvWwevXrqfhkqdqt [facility] Goals DatePatient GoalDesired Activity/State Functional Status UcygOpsiiopbmzXthiyfAobwjjwj57-28-4223Eczhkstlvm statusPatient at Baseline [facility] Work Phone: Mental Status GhogDmnuiukamdRtnbkqNdcprnzw53-21-9405Umqyrdnjh functionCognitive Status Patient at BaselineTrumbull Memorial Hospital Work Phone: Clinical Notes 07-19-2022 to 10-30-2024 Note Date & HxvgLqokTkydxwyq42-57-1939 History of Present illness Narrative* Mely Ken MD - 10/30/2024 2:00 PM EDT Chief Complaint Patient presents with Follow-up 6 [...] agreed to continue with conservative managementonly 5. I advised him to do his amiodarone surveillance testing. Apparently he could not do [place] pulmonary function test [place] I advised him to try to do it at [facility] 6. Next time we will see him [...] my direction and personally dictated by me. Kath reviewed the chart and agree that the record accurately reflects my personal performance of the history, physical exam, discussion and plan. documented in this [facility] Work Phone: 1(132) 581-315109-10-2025 Instructions* Patient Instructions* Porsha Wong LPN - 10/30/2024 2:00 PM [...] Amiodarone follow up per routine 6 months * Attachments The following attachments cannot be sent through Care Everywhere. * Body Mass Index, Adult (Israeli) documented in this [facility] Work Phone: 1(909) 448-835007-30-2025 Evaluation note* Diagnosis Onset Date Resolution Status Admit Date Cerumen impaction acuteJuly 2024 2:35pmHFrEF (heart failure with reduced ejection fraction) acuteJuly 2024 2:35pmDecreased hearing of both earsnoneactiveJuly 2024 2:35pmAnemiaacuteAugust 2024 1:59pmAtrial fibrillationacuteAugust 2024 1:59pmCKD (chronic kidney disease) stage 4, GFR 15-29 ml/minacuteAugust 2024 1:59pmHFrEF (heart failure with reduced ejection fraction)acuteAugust 2024 1:59pmHypertensive chronic kidney disease with stage 1 through stage 4 chronic kiacuteAugust 2024 1:59pmHyperuricemiaacuteAugust 2024 1:59pm Ischemic cardiomyopathyacuteAugust 2024 1:59pmPyuriaacuteAugust 2024 1:59pmSecondary hyperparathyroidismacuteAugust 2024 1:59pmElevated cholesterolresolvedAugust 2024 1:59pmCerumen impactionacuteAugust 2024 11:44amHFrEF (heart failure with reduced ejection fraction)acuteAugust 2024 11:44amDecreased hearing of both earsnoneactiveAugust 2024 11:44am Chronic kidney diseaseacuteSeptember 2024 3:05pmDegenerative arthritis of left footacuteSeptember 2024 3:05pmDegenerative arthritis of right foot acuteSeptember 2024 3:05pmFoot pain, bilateralacuteSeptember 2024 3:05pmIschemic cardiomyopathyacuteSeptember 2024 3:05pm [facility] Work Phone: 1(794) 468-931207-30-2025 Evaluation note* Diagnosis Onset Date Resolution Status Admit Date Cerumen impaction acuteJuly 2024 2:35pmHFrEF (heart failure with reduced ejection fraction) acuteJuly 2024 2:35pmDecreased hearing of both earsnoneactiveJuly 2024 2:35pmAnemiaacuteAugust 2024 1:59pmAtrial fibrillationacuteAugust 2024 1:59pmCKD (chronic kidney disease) stage 4, GFR 15-29 ml/minacuteAugust 2024 1:59pmHFrEF (heart failure with reduced ejection fraction)acuteAugust 2024 1:59pmHypertensive chronic kidney disease with stage 1 through stage 4 chronic kiacuteAugust 2024 1:59pmHyperuricemiaacuteAugust 2024 1:59pm Ischemic cardiomyopathyacuteAugust 2024 1:59pmPyuriaacuteAugust 2024 1:59pmSecondary hyperparathyroidismacuteAugust 2024 1:59pmElevated cholesterolresolvedAugust 2024 1:59pmCerumen impactionacuteAugust 2024 11:44amHFrEF (heart failure with reduced ejection fraction)acuteAugust 2024 11:44amDecreased hearing of both earsnoneactiveAugust 2024 11:44am Chronic kidney diseaseacuteSeptember 2024 3:05pmDegenerative arthritis of left footacuteSeptember 2024 3:05pmDegenerative arthritis of right foot acuteSeptember 2024 3:05pmFoot pain, bilateralacuteSeptember 2024 3:05pmIschemic cardiomyopathyacuteSeptember 2024 3:05pmAnemiaacuteOctober 2024 3:08pmAtrial fibrillationacuteOctober 2024 3:08pmCKD (chronic kidney disease) stage 4, GFR 15-29 ml/minacuteOctober 2024 3:08pmHFrEF (heart failure with reduced ejection fraction)acuteOctober 2024 3:08pm Hypertensive chronic kidney disease with stage 1 through stage 4 chronic kiacute October 2024 3:08pmHyperuricemiaacuteOctober 2024 3:08pmIschemic cardiomyopathyacuteOctober 2024 3:08pmPyuriaacuteOctober 2024 3:08pm Secondary hyperparathyroidismacuteOctober 2024 3:08pmElevated cholesterol resolvedOctober 2024 3:08pm [facility] Work Phone: 1(965) 873-435007-30-2025 Evaluation note* Diagnosis Onset Date Resolution Status Admit Date Cerumen impaction acuteJuly 2024 2:35pmHFrEF (heart failure with reduced ejection fraction) acuteJuly 2024 2:35pmDecreased hearing of both earsnoneactiveJuly 2024 2:35pmAnemiaacuteAugust 2024 1:59pmAtrial fibrillationacuteAugust 2024 1:59pmCKD (chronic kidney disease) stage 4, GFR 15-29 ml/minacuteAugust 2024 1:59pmHFrEF (heart failure with reduced ejection fraction)acuteAugust 2024 1:59pmHypertensive chronic kidney disease with stage 1 through stage 4 chronic kiacuteAugust 2024 1:59pmHyperuricemiaacuteAugust 2024 1:59pm Ischemic cardiomyopathyacuteAugust 2024 1:59pmPyuriaacuteAugust 2024 1:59pmSecondary hyperparathyroidismacuteAugust 2024 1:59pmElevated cholesterolresolvedAugust 2024 1:59pmCerumen impactionacuteAugust 2024 11:44amHFrEF (heart failure with reduced ejection fraction)acuteAugust 2024 11:44amDecreased hearing of both earsnoneactiveAugust 2024 11:44am Chronic kidney diseaseacuteSeptember 2024 3:05pmDegenerative arthritis of left footacuteSeptember 2024 3:05pmDegenerative arthritis of right foot acuteSeptember 2024 3:05pmFoot pain, bilateralacuteSeptember 2024 3:05pmIschemic cardiomyopathyacuteSeptember 2024 3:05pmAtrial fibrillation acuteOctober 2024 3:08pmCKD (chronic kidney disease) stage 4, GFR 15-29 ml/minacuteOctober 2024 3:08pmHFrEF (heart failure with reduced ejection fraction)acuteOctober 2024 3:08pmHypertensive chronic kidney disease with stage 1 through stage 4 chronic kiacuteOctober 2024 3:08pmHyperuricemia acuteOctober 2024 3:08pmIschemic cardiomyopathyacuteOctober 2024 3:08pmSecondary hyperparathyroidismacuteOctober 2024 3:08pmElevated cholesterolresolvedOctober 2024 3:08pmAtrial fibrillationacuteOctober 2024 10:13amChronic kidney diseaseacuteOctober 2024 10:13amHFrEF (heart failure with reduced ejection fraction)acuteOctober 2024 10:13am HypertensionacuteOctober 2024 10:13amIschemic cardiomyopathyacuteOctober 2024 10:13amPrimary osteoarthritis of both kneesacuteOctober 2024 10:13amElevated cholesterolresolvedOctober 2024 10:13am [facility] Work Phone: 1([phone]) 671-435706-17-2025 Evaluation note* Diagnosis Onset Date Resolution Status Admit Date Atrial fibrillation acuteJune 2024 10:33amCerumen impactionacuteJune 2024 10:33amChronic kidney diseaseacuteJune 2024 10:33amHFrEF (heart failure with reduced ejection fraction)acuteJune 2024 10:33amHypertensionacuteJune 2024 10:33amIschemic cardiomyopathyacuteJune 2024 10:33amPrimary osteoarthritis of both kneesacuteJune 2024 10:33amElevated cholesterolresolvedJune 2024 10:33amCerumen impactionacuteJuly 2024 2:35pmHFrEF (heart failure with reduced ejection fraction)acuteJuly 2024 2:35pmDecreased hearing of both earsnoneactiveJuly 2024 2:35pmAnemiaacuteAugust 2024 1:59pm Atrial fibrillationacuteAugust 2024 1:59pmCKD (chronic kidney disease) stage 4, GFR 15-29 ml/minacuteAugust 2024 1:59pmHFrEF (heart failure with reduced ejection fraction)acuteAugust 2024 1:59pmHypertensive chronic kidney disease with stage 1 through stage 4 chronic kiacuteAugust 2024 1:59pmHyperuricemiaacuteAugust 2024 1:59pmIschemic cardiomyopathyacute September 23, 2024 1:59pmPyuriaacuteAugust 2024 1:59pmSecondary hyperparathyroidismacuteAugust 2024 1:59pmElevated cholesterolresolved September 23, 2024 1:59pmCerumen impactionacuteAugust 2024 11:44amHFrEF (heart failure with reduced ejection fraction)acuteAugust 2024 11:44am Decreased hearing of both earsnoneactiveAugust 2024 11:44am [facility] Work Phone: 1(557) 136-284005-12-2025 Evaluation note* Diagnosis Onset Date Resolution Status Admit Date Asymptomatic bacteriuria acuteMay 2024 2:30pmAtrial fibrillationacuteMay 2024 2:30pmCKD (chronic kidney disease) stage 4, GFR 15-29 ml/minacuteMay 2024 2:30pm HFrEF (heart failure with reduced ejection fraction)acuteMay 2024 2:30pm Hypertensive chronic kidney disease with stage 1 through stage 4 chronic kiacute May 2024 2:30pmHyperuricemiaacuteMay 2024 2:30pmIschemic cardiomyopathyacuteMay 2024 2:30pmSecondary hyperparathyroidismacuteMay 2024 2:30pmElevated cholesterolresolvedMay 2024 2:30pmAtrial fibrillationacuteJune 2024 10:33amCerumen impactionacuteJune 2024 10:33amChronic kidney diseaseacuteJune 2024 10:33amHFrEF (heart failure with reduced ejection fraction)acuteJune 2024 10:33amHypertensionacuteJune 2024 10:33amIschemic cardiomyopathyacuteJune 2024 10:33amPrimary osteoarthritis of both kneesacuteJune 2024 10:33amElevated cholesterol resolvedJune 2024 10:33amCerumen impactionacuteJuly 2024 2:35pmHFrEF (heart failure with reduced ejection fraction)acuteJuly 2024 2:35pm Decreased hearing of both earsnoneactiveJuly 2024 2:35pmAsymptomatic bacteriuriaacuteAugust 2024 1:59pmAtrial fibrillationacuteAugust 2024 1:59pmCKD (chronic kidney disease) stage 4, GFR 15-29 ml/minacuteAugust 2024 1:59pmHFrEF (heart failure with reduced ejection fraction)acuteAugust 2024 1:59pmHypertensive chronic kidney disease with stage 1 through stage 4 chronic kiacuteAugust 2024 1:59pmHyperuricemiaacuteAugust 2024 1:59pm Ischemic cardiomyopathyacuteAugust 2024 1:59pmSecondary hyperparathyroidism acuteAugust 2024 1:59pmElevated cholesterolresolvedAugust 2024 1:59pm [facility] Work Phone: 1(980) 536-203505-12-2025 Evaluation note* Diagnosis Onset Date Resolution Status Admit Date Asymptomatic bacteriuria acuteMay 2024 2:30pmAtrial fibrillationacuteMay 2024 2:30pmCKD (chronic kidney disease) stage 4, GFR 15-29 ml/minacuteMay 2024 2:30pm HFrEF (heart failure with reduced ejection fraction)acuteMay 2024 2:30pm Hypertensive chronic kidney disease with stage 1 through stage 4 chronic kiacute July 01, 2024 2:30pmHyperuricemiaacuteMay 2024 2:30pmIschemic cardiomyopathyacuteMay 2024 2:30pmSecondary hyperparathyroidismacuteMay 2024 2:30pmElevated cholesterolresolvedMay 2024 2:30pmAtrial fibrillationacuteJune 2024 10:33amCerumen impactionacuteJune 2024 10:33amChronic kidney diseaseacuteJune 2024 10:33amHFrEF (heart failure with reduced ejection fraction)acuteJune 2024 10:33amHypertensionacuteJune 2024 10:33amIschemic cardiomyopathyacuteJune 2024 10:33amPrimary osteoarthritis of both kneesacuteJune 2024 10:33amElevated cholesterol resolvedJune 2024 10:33amCerumen impactionacuteJuly 2024 2:35pmHFrEF (heart failure with reduced ejection fraction)acuteJuly 2024 2:35pm Decreased hearing of both earsnoneactiveJuly 2024 2:35pmAnemiaacuteAugust 2024 1:59pmAtrial fibrillationacuteAugust 2024 1:59pmCKD (chronic kidney disease) stage 4, GFR 15-29 ml/minacuteAugust 2024 1:59pmHFrEF (heart failure with reduced ejection fraction)acuteAugust 2024 1:59pm Hypertensive chronic kidney disease with stage 1 through stage 4 chronic kiacute September 23, 2024 1:59pmHyperuricemiaacuteAugust 2024 1:59pmIschemic cardiomyopathyacuteAugust 2024 1:59pmPyuriaacuteAugust 2024 1:59pm Secondary hyperparathyroidismacuteAugust 2024 1:59pmElevated cholesterol resolvedAugust 2024 1:59pm [facility] Work Phone: 1(258) 957-766405-12-2025 Evaluation note* Diagnosis Onset Date Resolution Status Admit Date Asymptomatic bacteriuria acuteMay 2024 2:30pmAtrial fibrillationacuteMay 2024 2:30pmCKD (chronic kidney disease) stage 4, GFR 15-29 ml/minacuteMay 2024 2:30pm HFrEF (heart failure with reduced ejection fraction)acuteMa2024 2:30pm Hypertensive chronic kidney disease with stage 1 through stage 4 chronic kiacute May 2024 2:30pmHyperuricemiaacuteMay 2024 2:30pmIschemic cardiomyopathyacuteMay 2024 2:30pmSecondary hyperparathyroidismacuteMay 2024 2:30pmElevated cholesterolresolvedMay 2024 2:30pmAtrial fibrillationacuteJune 2024 10:33amCerumen impactionacuteJune 2024 10:33amChronic kidney diseaseacuteJune 2024 10:33amHFrEF (heart failure with reduced ejection fraction)acuteJune 2024 10:33amHypertensionacuteJune 2024 10:33amIschemic cardiomyopathyacuteJune 2024 10:33amPrimary osteoarthritis of both kneesacuteJune 2024 10:33amElevated cholesterol resolvedJune 2024 10:33amCerumen impactionacuteJuly 2024 2:35pmHFrEF (heart failure with reduced ejection fraction)acuteJuly 2024 2:35pm Decreased hearing of both earsnoneactiveJuly 2024 2:35pmAnemiaacuteAugust 2024 1:59pmAtrial fibrillationacuteAugust 2024 1:59pmCKD (chronic kidney disease) stage 4, GFR 15-29 ml/minacuteAugust 2024 1:59pmHFrEF (heart failure with reduced ejection fraction)acuteAugust 2024 1:59pm Hypertensive chronic kidney disease with stage 1 through stage 4 chronic k[place]ute [place] 2024 1:59pmHyperuricemiaacuteAugust 2024 1:59pmIschemic cardiomyopathyacuteAugust 2024 1:59pmPyuriaacuteAugust 2024 1:59pm Secondary hyperparathyroidismacuteAugust 2024 1:59pmElevated cholesterol resolvedAugust 2024 1:59pmCerumen impactionacuteAugust 2024 11:44am HFrEF (heart failure with reduced ejection fraction)acuteAugust 2024 11:44amDecreased hearing of both earsnoneactiveAugust 2024 11:44am [facility] Work Phone: 1(422) 787-643505-05-2025 Evaluation note* Diagnosis Onset Date Resolution Status Admit Date Chronic kidney disease acuteMay 2024 2:38pmShoulder pain, leftacuteMay 2024 2:38pmStrain of left deltoid muscleacuteMay 2024 2:38pmAsymptomatic bacteriuriaacuteMay 2024 2:30pmAtrial fibrillationacuteMa2024 2:30pmCKD (chronic kidney disease) stage 4, GFR 15-29 ml/minacuteMay 2024 2:30pmHFrEF (heart failure with reduced ejection fraction)acuteMa2024 2:30pmHypertensive chronic kidney disease with stage 1 through stage 4 chronic kiacuteMa2024 2:30pmHyperuricemiaacuteMay 2024 2:30pmIschemic cardiomyopathyacute May 2024 2:30pmSecondary hyperparathyroidismacuteMa2024 2:30pm Elevated cholesterolresolvedMay 2024 2:30pmAtrial fibrillationacuteJune 2024 10:33amCerumen impactionacuteJune 2024 10:33amChronic kidney diseaseacuteJune 2024 10:33amHFrEF (heart failure with reduced ejection fraction)acuteJune 2024 10:33amHypertensionacuteJune 2024 10:33am Ischemic cardiomyopathyacuteJune 17th, 2025 10:33amPrimary osteoarthritis of both kneesacuteJune 2024 10:33amElevated cholesterolresolved[facility] 20[facility] 10:33am [facility] Work Phone: 1(692) 753-769403-10-2025 History of Present illness Narrative* Mely Ken MD - 04/29/2024 10:00 AM EDT Subjective Corwin Muller is a 79 y.o. male Chief [...] Attestation By signing my name below, I, Lashay Guillen LPN , Scribe attest that this documentation [...] exam, discussion and plan. documented in this [facility] Work Phone: 1(397) 216-391303-10-2025 Instructions* Patient Instructions* Lashay Andersen LPN - [...] through Care Everywhere. * Heart Healthy Diet (Israeli) documented in this [facility] Work Phone: 1(248) 846-690002-27-2025 Progress note Author Felicia Aguilar [facility] HospitalNote Date/TimeFebruary 2024 12:05pm [place] [address] Nephrology Progress Note Signed Patient: Corwin Muller MR#: [id number] : 1945 Acct:[id number] Age/Sex: 79 / M Adm Date: 5 Loc: Room: 5A9089-5 Type: ADM IN Attending Dr: Jn Yanes [...] that time. He was evaluated in the [facility] with EKG showingSVT and inverted T [...] has no edema. Patient was seen by principal web developer and diltiazem was completely stopped that hopefully [...] 200 Mg Tablet) 200 mg PO TID [facility] Stop: 04/16/25 21:59 Last Admin: 04/18/24 08:53 Dose: 200 mg Apixaban (Apixaban 2.5 Mg Tablet) 2.5 mg PO BID [facility] Stop: 04/12/25 20:59 Last Admin: 04/18/24 08:53 Dose: 2.5 mg Aspirin (Aspirin 81 Mg Tablet.Dr) 81 mg PO DAILY [facility] Stop: 04/11/25 08:59 Last Admin: 04/18/24 08:53 Dose: 81 mg Docusate Sodium (Docusate 100 Mg Capsule) 200 mg PO BID PRN PRN Reason: Constipation Stop: 04/15/25 11:55 Furosemide (Furosemide 40 Mg Tablet) 40 mg PO BID@0800,1600 [facility] Stop: 04/12/25 15:59 Last Admin: 04/17/24 09:34 Dose: 40 mg Hydralazine HCl (Hydralazine 25 Mg Tablet) 25 mg PO BID [facility] Stop: 04/12/25 20:59 Last Admin: 04/18/24 08:53 Dose: 25 mg Isosorbide Mononitrate (Isosorbide Mononitrate 24hr Er 30 Mg Tab.Er.24h) 30 mg PO DAILY.6A [facility] Stop: 04/13/25 05:59 Last Admin: 04/18/24 06:07 Dose: 30 mg Melatonin (Melatonin 5 Mg Tablet) 5 mg PO QHS PRN PRN Reason: sleep Stop: 04/18/25 21:59 Last Admin: 04/18/24 00:34 Dose: 5 mg Metoprolol Succinate (Metoprolol Succinate 50 Mg Tab.Er.24h) 50 mg PO BID [facility] Stop: 04/13/25 20:59 Last Admin: 04/18/24 08:53 [...] infarction): Assessment/Problem Details: Patient was admitted for WI and his echocardiogram showed EF 35 to [...] <Electronically signed by MD Felicia Aguilar> 04/18/24 1202 [facility] Work Phone: 1(599) 592-628702-27-2025 Progress note Author Jn Yanes [facility] HospitalNote Date/TimeFebruary 2024 11:56am [place] [address] Hospitalist Progress Note Signed with Charlene Patient: Corwin Muller MR#: [id number] : 1945 Acct:[id number] Age/Sex: 79 / M Adm Date: 5 Loc: Room: [address] [place] [address] Type: ADM IN Attending Dr: Jn Yanes [...] <Electronically signed by Jn Yanes MD> 04/17/24 6617 [facility] Work Phone: 1(551) 480-716302-27-2025 Progress note Author Mely Ken [facility] HospitalNote Date/TimeFebruary 2024 10:26am [place] [address] Cardiology Progress Note Signed Patient: Corwin Muller MR#: [id number] : 1945 Acct:[id number] Age/Sex: 79 / M Adm Date: 5 Loc: Room: [address] [place] [address] Type: ADM IN Attending Dr: Jn Yanes [...] signed by MD Mely Ken> 04/18/24 1026 [facility] Work Phone: 1(239) 152-435602-27-2025 [place] [address] Nephrology Progress Note Signed Patient: Corwin Muller MR#: [id number] : 1945 Acct:[id number] Age/Sex: 79 / M Adm Date: 5 Loc: Room: [address] [place] [address] Type: ADM IN Attending Dr: Jn Yanes [...] that time. He was evaluated in the [facility] with EKG showingSVT and inverted T [...] has no edema. Patient was seen by principal web developer and diltiazem was completely stopped that hopefully [...] 200 Mg Tablet) 200 mg PO TID [facility] Stop: 04/16/25 21:59 Last Admin: 04/18/24 08:53 Dose: 200 mg Apixaban (Apixaban 2.5 Mg Tablet) 2.5 mg PO BID [facility] Stop: 04/12/25 20:59 Last Admin: 04/18/24 08:53 Dose: 2.5 mg Aspirin (Aspirin 81 Mg Tablet.Dr) 81 mg PO DAILY [facility] Stop: 04/11/25 08:59 Last Admin: 04/18/24 08:53 Dose: 81 mg Docusate Sodium (Docusate 100 Mg Capsule) 200 mg PO BID PRN PRN Reason: Constipation Stop: 04/15/25 11:55 Furosemide (Furosemide 40 Mg Tablet) 40 mg PO BID@0800,1600 [facility] Stop: 04/12/25 15:59 Last Admin: 04/17/24 09:34 Dose: 40 mg Hydralazine HCl (Hydralazine 25 Mg Tablet) 25 mg PO BID [facility] Stop: 04/12/25 20:59 Last Admin: 04/18/24 08:53 Dose: 25 mg Isosorbide Mononitrate (Isosorbide Mononitrate 24hr Er 30 Mg Tab.Er.24h) 30 mg PO DAILY.6A [facility] Stop: 04/13/25 05:59 Last Admin: 04/18/24 06:07 [...] infarction): Assessment/Problem Details: Patient was admitted for [place] and his echocardiogram showed EF 35 to [...] MD 04/18/24 1158 Signed By: 04/18/24 1205 [facility]02-27-2025 [place] [address] Hospitalist Progress Note Signed with Addenda Patient: Corwin Muller MR#: [id number] : 1945 Acct:[id number] Age/Sex: 79 / M Adm Date: 5 Loc: Room: [address] [place] [address] Type: ADM IN Attending Dr: Jn Yanes [...] MD 04/17/24 1402 Signed By: 04/17/24 2105 [facility]02-27-2025 [place] [address] Cardiology Progress Note Signed Patient: Corwin Muller MR#: [id number] : 1945 Acct:[id number] Age/Sex: 79 / M Adm Date: 5 Loc: Room: [address] [place] [address] Type: ADM IN Attending Dr: Jn Yanes [...] MD 04/18/24 1024 Signed By: 04/18/24 1026 [facility]02-26-2025 Progress note Author Felicia Aguilar [facility] HospitalNote Date/TimeFebruary 2024 2:35pm [place] [address] Nephrology Progress Note Signed Patient: Corwin Muller MR#: [id number] : 1945 Acct:[id number] Age/Sex: 79 / M Adm Date: 5 Loc: Room: [address] [place] [address] Type: ADM IN Attending Dr: Jn Yanes [...] that time. He was evaluated in the [facility] with EKG showingSVT and inverted T [...] 200 Mg Tablet) 200 mg PO TID [facility] Stop: 04/16/25 21:59 Last Admin: 04/17/24 09:34 Dose: 200 mg Apixaban (Apixaban 2.5 Mg Tablet) 2.5 mg PO BID [facility] Stop: 04/12/25 20:59 Last Admin: 04/17/24 09:34 Dose: 2.5 mg Aspirin (Aspirin 81 Mg Tablet.Dr) 81 mg PO DAILY [facility] Stop: 04/11/25 08:59 Last Admin: 04/17/24 09:34 Dose: 81 mg Diltiazem HCl (Diltiazem Cd.24hr 240 Mg Cap.Er.24h) 240 mg PO DAILY [facility] Stop: 04/17/25 08:59 Last Admin: 04/17/24 09:34 Dose: 240 mg Docusate Sodium (Docusate 100 Mg Capsule) 200 mg PO BID PRN PRN Reason: Constipation Stop: 04/15/25 11:55 Furosemide (Furosemide 40 Mg Tablet) 40 mg PO BID@0800,1600 [facility] Stop: 04/12/25 15:59 Last Admin: 04/17/24 09:34 Dose: 40 mg Hydralazine HCl (Hydralazine 25 Mg Tablet) 25 mg PO BID [facility] Stop: 04/12/25 20:59 Last Admin: 04/17/24 09:34 Dose: 25 mg Isosorbide Mononitrate (Isosorbide Mononitrate 24hr Er 30 Mg Tab.Er.24h) 30 mg PO DAILY.6A [facility] Stop: 04/13/25 05:59 Last Admin: 04/17/24 05:10 Dose: 30 mg Metoprolol Succinate (Metoprolol Succinate 50 Mg Tab.Er.24h) 50 mg PO BID [facility] Stop: 04/13/25 20:59 Last Admin: 04/17/24 09:34 [...] infarction): Assessment/Problem Details: Patient was admitted for WI and his echocardiogram showed EF 35 to [...] signed by MD Felicia Aguilar> 04/17/24 1430 [facility] Work Phone: 1(618) 110-339802-26-2025 [place] [id number] Nephrology Progress Note Signed Patient: Corwin Muller MR#: [id number] : 1945 Acct:[id number] Age/Sex: 79 / M Adm Date: 5 Loc: Room: [address] [place] [address] Type: ADM IN Attending Dr: Jn Yanes [...] that time. He was evaluated in the [facility] with EKG showingSVT and inverted T [...] 200 Mg Tablet) 200 mg PO TID [facility] Stop: 04/16/25 21:59 Last Admin: 04/17/24 09:34 [...] 40 Mg Tablet) 40 mg PO BID@0800,1600 [facility] Stop: 04/12/25 15:59 Last Admin: 04/17/24 09:34 Dose: 40 mg Hydralazine HCl (Hydralazine 25 Mg Tablet) 25 mg PO BID [facility] Stop: 04/12/25 20:59 Last Admin: 04/17/24 09:34 Dose: 25 mg Isosorbide Mononitrate (Isosorbide Mononitrate 24hr Er 30 Mg Tab.Er.24h) 30 mg PO DAILY.6A [facility] Stop: 04/13/25 05:59 Last Admin: 04/17/24 05:10 Dose: 30 mg Metoprolol Succinate (Metoprolol Succinate 50 Mg Tab.Er.24h) 50 mg PO BID [facility] Stop: 04/13/25 20:59 Last Admin: 04/17/24 09:34 Dose: 50 mg Morphine Sulfate (Morphine Sulfate 2 Mg/Ml Vial) 2 mg IV-PUSH Q4H PRN PRN Reason: Pain Scale 8 - 10 Ondansetron HCl (Ondansetron 4 Mg/2 Ml Vial) 4 mg IV-PUSH Q6H PRN PRN Reason: Nausea And Vomiting Stop: 04/10/25 04:04 Potassium Chloride (Potassium Chloride Er 20 Meq Tab.Er.Prt) 20 meq PO DAILY [facility] Stop: 04/13/25 08:59 Last Admin: 04/17/24 09:34 [...] infarction): Assessment/Problem Details: Patient was admitted for [place] and his echocardiogram showed EF 35 to [...] MD 04/17/24 1426 Signed By: 04/17/24 1435 [facility]02-26-2025 Progress note Author Mely Ken [facility] HospitalNote Date/TimeFebruary 2024 12:13pm [place] [address] Cardiology Progress Note Signed Patient: Corwin Muller MR#: [id number] : 1945 Acct:[id number] Age/Sex: 79 / M Adm Date: 5 Loc: Room: [address] [place] [address] Type: ADM IN Attending Dr: Jn Yanes [...] signed by MD Mely Ken> 04/17/24 1213 [facility] Work Phone: 1(528) 942-739402-26-2025 [place] [address] Cardiology Progress Note Signed Patient: Corwin Muller MR#: [id number] : 1945 Acct:[id number] Age/Sex: 79 / M Adm Date: 5 Loc: 4 Room: [address] [place] [address] Type: ADM IN Attending Dr: Jn Yanes [...] Ken MD 04/17/241209 Signed By: 04/17/24 1213 [facility]02-25-2025 Progress note Author Felicia Aguilar [facility] HospitalNote Date/TimeFebruary 2024 4:47pm [place] [id number] Nephrology Progress Note Signed Patient: Corwin Muller MR#: [id number] : 1945 Acct:[id number] Age/Sex: 79 / M Adm Date: 5 Loc: 4P Room: [address] [place] [address] Type: ADM IN Attending Dr: Jersey Bess [...] that time. He was evaluated in the [facility] with EKG showingSVT and inverted T [...] 200 Mg Tablet) 200 mg PO TID [facility] Stop: 04/16/25 21:59 Apixaban (Apixaban 2.5 Mg Tablet) 2.5 mg PO BID [facility] Stop: 04/12/25 20:59 Last Admin: 04/16/24 08:56 Dose: 2.5 mg Aspirin (Aspirin 81 Mg Tablet.Dr) 81 mg PO DAILY [facility] Stop: 04/11/25 08:59 Last Admin: 04/16/24 08:56 Dose: 81 mg Diltiazem HCl (Diltiazem Cd.24hr 240 Mg Cap.Er.24h) 240 mg PO DAILY [facility] Stop: 04/17/25 08:59 Docusate Sodium (Docusate 100 Mg Capsule) 200 mg PO BID PRN PRN Reason: Constipation Stop: 04/15/25 11:55 Furosemide (Furosemide 40 Mg Tablet) 40 mg PO BID@0800,1600 [facility] Stop: 04/12/25 15:59 Last Admin: 04/16/24 15:48 [...] Mg/5 Ml Udc) 17.6 mg PO HS [facility] Stop: 04/15/25 21:59 Last Admin: 04/15/24 22:35 [...] physician into a diagnostic report(s) for Corwin Hdz Muller. I have reviewed the report(s) and [...] infarction): Assessment/Problem Details: Patient was admitted for [place] and his echocardiogram showed EF 35 to [...] was discussed with the patient by his principal web developer. Ideally he should have invasive evaluation however [...] <Electronically signed by MD Felicia Aguilar> 04/16/24 1640 [facility] Work Phone: 1(526) 344-638602-25-2025 Consult note Author Luis Patel [facility] HospitalNote Date/TimeFebruary 2024 2:53pm [place] [address] Physiatry (Rehab) Consult Note Signed Patient: Corwin Muller MR#: [id number] : 1945 Acct:[id number] Age/Sex: 79 / M Adm Date: 5 Loc: Room: [address] [place] [address] Type: ADM IN Attending Dr: Jersey Bess MD Copies to: DO Luis Johansen MD Obaydah M Daromar, MD~ Etiologic Dx/Impairment Group Narrative Narrative: Cardiac HPI Consult Date: 04/16/24 Requesting Physician: Jersey Bess MD Primary Care Provider: Ranjan Adnersen DO Consult Narrative Reason for consult: Postacute [...] negative unless noted below or in HPI [facility] Medical History Atrial tachycardia Lumbar spondylosis [...] including current orders, allied health and senior wind energy consultant notes, labs/imaging and performed whatley elements of exam and I formulated the plan of care and facilitated the medical decision making. I completed a substantive portion of this encounter, the medical decision making portion of this note in its entirety, including Allied health note review, nursing note review, senior wind energy consultant note review, discussion with nursing and case management, and more than 50% of my time was spent on counseling and coordination of care, time spent 35 minutes Documented By: Luis Patel MD 04/16/24 1401 Signed By: <Electronically signed by Luis Patel MD> 04/16/24 3480 [facility] Work Phone: 1(317) 604-669602-25-2025 [place] [address] Nephrology Progress Note Signed Patient: Corwin Muller MR#: [id number] : 1945 Acct:[id number] Age/Sex: 79 / M Adm Date: 5 Loc: Room: [address] [place] [address] Type: ADM IN Attending Dr: Jersey Bess [...] that time. He was evaluated in the [facility] with EKG showingSVT and inverted T [...] 200 Mg Tablet) 200 mg PO TID [facility] Stop: 04/16/25 21:59 Apixaban (Apixaban 2.5 Mg Tablet) 2.5 mg PO BID [facility] Stop: 04/12/25 20:59 Last Admin: 04/16/24 08:56 Dose: 2.5 mg Aspirin (Aspirin 81 Mg Tablet.Dr) 81 mg PO DAILY [facility] Stop: 04/11/25 08:59 Last Admin: 04/16/24 08:56 Dose: 81 mg Diltiazem HCl (Diltiazem Cd.24hr 240 Mg Cap.Er.24h) 240 mg PO DAILY [facility] Stop: 04/17/25 08:59 Docusate Sodium (Docusate 100 Mg Capsule) 200 mg PO BID PRN PRN Reason: Constipation Stop: 04/15/25 11:55 Furosemide (Furosemide 40 Mg Tablet) 40 mg PO BID@0800,1600 [facility] Stop: 04/12/25 15:59 Last Admin: 04/16/24 15:48 Dose: 40 mg Hydralazine HCl (Hydralazine 25 Mg Tablet) 25 mg PO BID [facility] Stop: 04/12/25 20:59 Last Admin: 04/16/24 08:56 Dose: 25 mg Isosorbide Mononitrate (Isosorbide Mononitrate 24hr Er 30 Mg Tab.Er.24h) 30 mg PO DAILY.6A [facility] Stop: 04/13/25 05:59 Last Admin: 04/16/24 06:28 [...] infarction): Assessment/Problem Details: Patient was admitted for WI and his echocardiogram showed EF 35 to [...] was discussed with the patient by his principal web developer. Ideally he should have invasive evaluation however [...] rehab. Documented By: Felicia Aguilar MD 04/16/24 2569 Signed By: 04/16/24 8658 [facility]02-25-2025 Progress note Author Jersey Bess [facility] Date/TimeFebruary 2024 1:58pm [place] [address] Hospitalist Progress Note Signed Patient: Corwin Muller MR#: [id number] : 1945 Acct:[id number] Age/Sex: 79 / M Adm Date: 5 Loc: Room: [address] [place] [address] Type: ADM IN Attending Dr: Jersey Bess [...] <Electronically signed by Jersey Bess MD> 04/16/[address] [place] [address] Work Phone: 1([phone] 145-871902-25-2025 [place] [address] Physiatry (Rehab) Consult Note Signed Patient: Corwin Muller MR#: [id number] : 1945 Acct:[id number] Age/Sex: 79 / M Adm Date: 5 Loc: Room: [address] [place] [address] Type: ADM IN Attending Dr: Jersey Bess [...] negative unless noted below or in HPI [facility] Medical History Atrial tachycardia Lumbar spondylosis Hyperlipidemia type II Primary osteoarthritis of right knee Primary osteoarthritis of left knee Knee pain Hypertension Elevated cholesterol Surgical History H/O hernia repair Family History Father 67 yrs Aortic aneurysm and dissection Mother 90 yrs [facility]: Diagnosed with Stroke Stroke Brother [...] including current orders, allied health and senior wind energy consultant notes, labs/imaging and performed whatley elements of exam and I formulated the plan of care and facilitated the medical decision making. I completed a substantive portion of this encounter, the medical decision making portion of this note in its entirety, including Allied health note review, nursing note review, senior wind energy consultant note review, discussion with nursing and case management, and more than 50% of my time was spent on counseling and coordination of care, time spent 35 minutes Documented By: Luis Patel MD 04/16/24 1401 Signed By: 04/16/24 1453 [facility]02-25-2025 [place] [address] Hospitalist Progress Note Signed Patient: Corwin Muller MR#: [id number] : 1945 Acct:[id number] Age/Sex: 79 / M Adm Date: 5 Loc: Room: [address] [place] [address] Type: ADM IN Attending Dr: Jersey Bess [...] 04/16/24 13 56 Signed By: 04/16/24 1358 [facility]02-25-2025 Progress note Author Mely Ken [facility] Date/TimeFebruary 2024 11:27am [place] [id number] Cardiology Progress Note Signed Patient: Corwin Muller MR#: [id number] : 1945 Acct:[id number] Age/Sex: 79 / M Adm Date: 5 Loc: 4 Room: [address] [place] [address] Type: ADM IN Attending Dr: Jersey Bess [...] signed by MD Mely Ken> 04/16/24 1127 [facility] Work Phone: [phone]) [phone] Nuclear medicine Diagnostic study note [facility] [place] [address] Nuclear Medicine Report Signed Patient: Corwin Muller MR#: [id number] : 1945 Acct:[id number] Age/Sex: 79 / M ADM Date: 5 Loc: Room: [address] [place] [address] Type: ADM IN Attending Dr: Jersey Bess [...] Jayda Burgess M.D.04/16/2024 12:45 PM Dictation Location: [place] [address] Transcribed By: RK 04/16/24 124 Dictated By: Jayda Burgess MD 04/16/24 1237 Signed By: 04/16/24 1245 [facility] Work Phone: [phone]) [phone] [place] [address] Cardiology Progress Note Signed Patient: Corwin Muller MR#: [id number] : 1945 Acct:[id number] Age/Sex: 79 / M Adm Date: 5 Loc: Room: [address] [place] [address] Type: ADM IN Attending Dr: Jersey Bess [...] MD 04/16/24 1117 Signed By: 04/16/24 1127 [facility]02-25-2025 Progress note Author Felicia Aguilar [facility] Date/TimeFebruary 2024 10:06pm [place] [address] Nephrology Progress Note Signed Patient: Corwin Muller MR#: [id number] : 1945 Acct:[id number] Age/Sex: 79 / M Adm Date: 5 Loc: 4 Room: [address] [place] [address] Type: ADM IN Attending Dr: Jersey Bess [...] that time. He was evaluated in the [facility] with EKG showingSVT and inverted T [...] 200 Mg Tablet) 400 mg PO TID [facility] Stop: 04/11/25 13:59 Last Admin: 04/15/24 21:25 Dose: 400 mg Apixaban (Apixaban 2.5 Mg Tablet) 2.5 mg PO BID [facility] Stop: 04/12/25 20:59 Last Admin: 04/15/24 21:25 Dose: 2.5 mg Aspirin (Aspirin 81 Mg Tablet.Dr) 81 mg PO DAILY [facility] Stop: 04/11/25 08:59 Last Admin: 04/15/24 10:20 Dose: 81 mg Diltiazem HCl (Diltiazem Cd.24hr 180 Mg Cap.Er.24h) 360 mg PO DAILY [facility] Stop: 04/15/25 08:59 Last Admin: 04/15/24 16:39 Dose: 360 mg Docusate Sodium (Docusate 100 Mg Capsule) 200 mg PO BID PRN PRN Reason: Constipation Stop: 04/15/25 11:55 Furosemide (Furosemide 40 Mg Tablet) 40 mg PO BID@0800,1600 [facility] Stop: 04/12/25 15:59 Last Admin: 04/15/24 16:42 Dose: 40 mg Hydralazine HCl (Hydralazine 25 Mg Tablet) 25 mg PO BID [facility] Stop: 04/12/25 20:59 Last Admin: 04/15/24 21:24 Dose: 25 mg Ceftriaxone Sodium (Rocephin) 1 gm in 50 mls @ 100 mls/hr IV Q24H [facility] Last Admin: 04/15/24 12:41 Dose: 100 mls/hr Isosorbide Mononitrate (Isosorbide Mononitrate 24hr Er 30 Mg Tab.Er.24h) 30 mg PO DAILY.6A [facility] Stop: 04/13/25 05:59 Last Admin: 04/15/24 05:04 Dose: 30 mg Metoprolol Succinate (Metoprolol Succinate 50 Mg Tab.Er.24h) 50 mg PO BID [facility] Stop: 04/13/25 20:59 Last Admin: 04/15/24 21:24 Dose: 50 mg Morphine Sulfate (Morphine Sulfate 2 Mg/Ml Vial) 2 mg IV-PUSH Q4H PRN PRN Reason: Pain Scale 8 - 10 Ondansetron HCl (Ondansetron 4 Mg/2 Ml Vial) 4 mg IV-PUSH Q6H PRN PRN Reason: Nausea And Vomiting Stop: 04/10/25 04:04 Potassium Chloride (Potassium Chloride Er 20 Meq Tab.Er.Prt) 20 meq PO DAILY [facility] Stop: 04/13/25 08:59 Last Admin: 04/15/24 10:21 Dose: 20 meq Sennosides (Sennosides Syrup 8.8 Mg/5 Ml Udc) 17.6 mg PO HS [facility] Stop: 04/15/25 21:59 Sodium Chloride (Sodium Chloride 0.9 % 10 Ml Syringe) 0 ml IV-PUSH QSHIFT [facility] Stop: 04/10/25 05:59 Last Admin: 04/15/24 16:42 Dose: 10 ml Sodium Chloride (Sodium Chloride 0.9 % 10 Ml Syringe) 0 ml IV-PUSH PRN PRN PRN Reason: Flush Stop: 04/15/25 13:36 Last Admin: 04/15/24 14:00 Dose: 30 ml Spironolactone (Spironolactone 12.5 Mg Tablet) 12.5 mg PO DAILY [facility] Stop: 04/12/25 19:59 Last Admin: 04/15/24 10:20 [...] infarction): Assessment/Problem Details: Patient was admitted for WI and his echocardiogram showed EF 35 to [...] <Electronically signed by MD Felicia Aguilar> 04/15/242205 [facility] Work Phone: [phone]) 560-108102-24-[address] [address] Nephrology Progress Note Signed Patient: Corwin Muller MR#: [id number] : 1945 Acct:[id number] Age/Sex: 79 / M Adm Date: 5 Loc: Room: [address] [place] [address] Type: ADM IN Attending Dr: Jersey Bess [...] that time. He was evaluated in the [facility] with EKG showingSVT and inverted T [...] 200 Mg Tablet) 400 mg PO TID [facility] Stop: 04/11/25 13:59 Last Admin: 04/15/24 21:25 Dose: 400 mg Apixaban (Apixaban 2.5 Mg Tablet) 2.5 mg PO BID [facility] Stop: 04/12/25 20:59 Last Admin: 04/15/24 21:25 Dose: 2.5 mg Aspirin (Aspirin 81 Mg Tablet.Dr) 81 mg PO DAILY [facility] Stop: 04/11/25 08:59 Last Admin: 04/15/24 10:20 Dose: 81 mg Diltiazem HCl (Diltiazem Cd.24hr 180 Mg Cap.Er.24h) 360 mg PO DAILY [facility] Stop: 04/15/25 08:59 Last Admin: 04/15/24 16:39 Dose: 360 mg Docusate Sodium (Docusate 100 Mg Capsule) 200 mg PO BID PRN PRN Reason: Constipation Stop: 04/15/25 11:55 Furosemide (Furosemide 40 Mg Tablet) 40 mg PO BID@0800,1600 [facility] Stop: 04/12/25 15:59 Last Admin: 04/15/24 16:42 Dose: 40 mg Hydralazine HCl (Hydralazine 25 Mg Tablet) 25 mg PO BID [facility] Stop: 04/12/25 20:59 Last Admin: 04/15/24 21:24 Dose: 25 mg Ceftriaxone Sodium (Rocephin) 1 gm in 50 mls @ 100 mls/hr IV Q24H [facility] Last Admin: 04/15/24 12:41 Dose: 100 mls/hr Isosorbide Mononitrate (Isosorbide Mononitrate 24hr Er 30 Mg Tab.Er.24h) 30 mg PO DAILY.6A [facility] Stop: 04/13/25 05:59 Last Admin: 04/15/24 05:04 Dose: 30 mg Metoprolol Succinate (Metoprolol Succinate 50 Mg Tab.Er.24h) 50 mg PO BID [facility] Stop: 04/13/25 20:59 Last Admin: 04/15/24 21:24 Dose: 50 mg Morphine Sulfate (Morphine Sulfate 2 Mg/Ml Vial) 2 mg IV-PUSH Q4H PRN PRN Reason: Pain Scale 8 - 10 Ondansetron HCl (Ondansetron 4 Mg/2 Ml Vial) 4 mg IV-PUSH Q6H PRN PRN Reason: Nausea And Vomiting Stop: 04/10/25 04:04 Potassium Chloride (Potassium Chloride Er 20 Meq Tab.Er.Prt) 20 meq PO DAILY [facility] Stop: 04/13/25 08:59 Last Admin: 04/15/24 10:21 [...] infarction): Assessment/Problem Details: Patient was admitted for WI and his echocardiogram showed EF 35 to [...] Felicia Aguilar MD 04/15/242200 Signed By: 04/15/242205 [facility]02-24-2025 Progress note Author Mely Ken [facility] Date/TimeFebruary 2024 12:47pm [place] [address] Cardiology Progress Note Signed Patient: Corwin Muller MR#: [id number] : 1945 Acct:[id number] Age/Sex: 79 / M Adm Date: 5 Loc: Room: [address] [place] [address] Type: ADM IN Attending Dr: Jersey Bess [...] signed by MD Mely Ken> 04/15/24 1247 [facility] Work Phone: 1([phone]) [phone] Progress note Author Jersey Bess [facility] Date/TimeFebruary 2024 12:12pm [place] [address] Hospitalist Progress Note Signed Patient: Corwin Muller MR#: [id number] : 1945 Acct:[id number] Age/Sex: 79 / M Adm Date: 5 Loc: Room: [address] [place] [address] Type: ADM IN Attending Dr: Jersey Bess [...] 04/11/24 09:00 04/15/24 10:20 Aspirin 81 Mg Tablet. PO 04/11/25 08:59 [...] <Electronically signed by Jersey Bess MD> 04/15/24 1215 [facility] Work Phone: [phone] [place] [address] Cardiology Progress Note Signed Patient: Corwin Muller MR#: [id number] : 1945 Acct:[id number] Age/Sex: 79 / M Adm Date: 5 Loc: 4 Room: [address] [place] [address] Type: ADM IN Attending Dr: Jersey Bess [...] Ken MD 04/15/24 1244 Signed By: 04/15/24 1243 [facility]02-24-2025 [place] [address] Hospitalist Progress Note Signed Patient: Corwin Muller MR#: [id number] : 1945 Acct:[id number] Age/Sex: 79 / M Adm Date: 5 Loc: Room: [address] [place] [address] Type: ADM IN Attending Dr: Jersey Bess [...] 04/15/24 11 54 Signed By: 04/15/24 1212 [facility]02-23-2025 Progress note Author Jersey Bess [facility] Date/TimeFebruary 2024 1:43pm [place] [address] Hospitalist Progress Note Signed Patient: Corwin Muller MR#: [id number] : 1945 Acct:[id number] Age/Sex: 79 / M Adm Date: 5 Loc: Room: [address] [place] [address] Type: ADM IN Attending Dr: Jersey Bess [...] <Electronically signed by Jersey Bess MD> 04/14/24 4647 [facility] Work Phone: [phone] Progress note Author Tobi Monroy [facility] Date/TimeFebruary 2024 1:06pm [place] [address] Nephrology Progress Note Signed Patient: Corwin Muller MR#: [id number] : 1945 Acct:[id number] Age/Sex: 79 / M Adm Date: 5 Loc: Room: [address] [place] [address] Type: ADM IN Attending Dr: Jersey Bess [...] that time. He was evaluated in the [facility] with EKG showingSVT and inverted T [...] Output I&O: Intake & Output 04/11/24 04/12/24 04/13/24/23/25 23:59 23:59 23:59 23:59 Intake Total 1225 [...] 200 Mg Tablet) 400 mg PO TID [facility] Stop: 04/11/25 13:59 Last Admin: 04/14/24 09:16 Dose: 400 mg Apixaban (Apixaban 2.5 Mg Tablet) 2.5 mg PO BID [facility] Stop: 04/12/25 20:59 Last Admin: 04/14/24 09:17 Dose: 2.5 mg Aspirin (Aspirin 81 Mg Tablet.Dr) 81 mg PO DAILY [facility] Stop: 04/11/25 08:59 Last Admin: 04/14/24 09:15 Dose: 81 mg Diltiazem HCl (Diltiazem Cd.24hr 180 Mg Cap.Er.24h) 360 mg PO DAILY [facility] Stop: 04/15/25 08:59 Furosemide (Furosemide 40 Mg Tablet) 40 mg PO BID@0800,1600 [facility] Stop: 04/12/25 15:59 Last Admin: 04/14/24 09:16 Dose: 40 mg Hydralazine HCl (Hydralazine 25 Mg Tablet) 25 mg PO BID [facility] Stop: 04/12/25 20:59 Last Admin: 04/14/24 09:17 Dose: 25 mg Ceftriaxone Sodium (Rocephin) 1 gm in 50 mls @ 100 mls/hr IV Q24H [facility] Last Admin: 04/14/24 11:29 Dose: 100 mls/hr Isosorbide Mononitrate (Isosorbide Mononitrate 24hr Er 30 Mg Tab.Er.24h) 30 mg PO DAILY.6A [facility] Stop: 04/13/25 05:59 Last Admin: 04/14/24 05:50 [...] 10 Ml Syringe) 0 ml IV-PUSH QSHIFT [facility] Stop: 04/10/25 05:59 Last Admin: 04/13/24 21:31 [...] infarction): Assessment/Problem Details: Patient was admitted for WI and his echocardiogram showed EF 35 to [...] signed by Tobi Monroy MD> 04/14/24 1306 [facility] Work Phone: [phone] Progress note Author Bubba Jessica [facility] Date/TimeFebruary 2024 12:48pm [place] [id number] Cardiology Progress Note Signed Patient: Corwin Muller MR#: [id number] : 1945 Acct:[id number] Age/Sex: 79 / M Adm Date: 5 Loc: Room: [address] [place] [address] Type: ADM IN Attending Dr: Jersey Bess MD Copies to: ~ Date of Service: 04/14/2024 Subjective Principal diagnosis: Congestive heart failure/atrial fibrillation Interval history: Mr. Muller is a 79 year old male was sent by his physician to the hospital because of observationof worsening respiratory status and tachycardia. He was evaluated in the emergency room at [place]. The patient described progressive shortness of breath [...] elevated when the patient was sent to [facility] for further care. Thepatient denies chest [...] signed by Bubba Jessica MD> 04/14/24 1248 [facility] Work Phone: [phone] [place] [address] Hospitalist Progress Note Signed Patient: Corwin Muller MR#: [id number] : 1945 Acct:[id number] Age/Sex: 79 / M Adm Date: 5 Loc: Room: [address] [place] [address] Type: ADM IN Attending Dr: Jersey Bess [...] 04/14/24 13 37 Signed By: 04/14/24 1343 [facility]02-23-2025 [place] [address] Nephrology Progress Note Signed Patient: Corwin Muller MR#: [id number] : 1945 Acct:[id number] Age/Sex: 79 / M Adm Date: 5 Loc: Room: [address] [place] [address] Type: ADM IN Attending Dr: Jersey Bess [...] that time. He was evaluated in the [facility] with EKG showingSVT and inverted T [...] 200 Mg Tablet) 400 mg PO TID [facility] Stop: 04/11/25 13:59 Last Admin: 04/14/24 09:16 Dose: 400 mg Apixaban (Apixaban 2.5 Mg Tablet) 2.5 mg PO BID [facility] Stop: 04/12/25 20:59 Last Admin: 04/14/24 09:17 Dose: 2.5 mg Aspirin (Aspirin 81 Mg Tablet.Dr) 81 mg PO DAILY [facility] Stop: 04/11/25 08:59 Last Admin: 04/14/24 09:15 Dose: 81 mg Diltiazem HCl (Diltiazem Cd.24hr 180 Mg Cap.Er.24h) 360 mg PO DAILY [facility] Stop: 04/15/25 08:59 Furosemide (Furosemide 40 Mg Tablet) 40 mg PO BID@0800,1600 [facility] Stop: 04/12/25 15:59 Last Admin: 04/14/24 09:16 Dose: 40 mg Hydralazine HCl (Hydralazine 25 Mg Tablet) 25 mg PO BID [facility] Stop: 04/12/25 20:59 Last Admin: 04/14/24 09:17 Dose: 25 mg Ceftriaxone Sodium (Rocephin) 1 gm in 50 mls @ 100 mls/hr IV Q24H [facility] Last Admin: 04/14/24 11:29 Dose: 100 mls/hr Isosorbide Mononitrate (Isosorbide Mononitrate 24hr Er 30 Mg Tab.Er.24h) 30 mg PO DAILY.6A [facility] Stop: 04/13/25 05:59 Last Admin: 04/14/24 05:50 Dose: 30 mg Metoprolol Succinate (Metoprolol Succinate 50 Mg Tab.Er.24h) 50 mg PO BID [facility] Stop: 04/13/25 20:59 Last Admin: 04/14/24 09:17 Dose: 50 mg Morphine Sulfate (Morphine Sulfate 2 Mg/Ml Vial) 2 mg IV-PUSH Q4H PRN PRN Reason: Pain Scale 8 - 10 Ondansetron HCl (Ondansetron 4 Mg/2 Ml Vial) 4 mg IV-PUSH Q6H PRN PRN Reason: Nausea And Vomiting Stop: 04/10/25 04:04 Potassium Chloride (Potassium Chloride Er 20 Meq Tab.Er.Prt) 20 meq PO DAILY [facility] Stop: 04/13/25 08:59 Last Admin: 04/14/24 09:15 Dose: 20 meq Sodium Chloride (Sodium Chloride 0.9 % 10 Ml Syringe) 0 ml IV-PUSH QSHIFT [facility] Stop: 04/10/25 05:59 Last Admin: 04/13/24 21:31 Dose: 10 ml Spironolactone (Spironolactone 12.5 Mg Tablet) 12.5 mg PO DAILY [facility] Stop: 04/12/25 19:59 Last Admin: 04/14/24 09:16 [...] kidney injury superimposed on CKD: Assessment/Problem Details: OYJANA on CKD due to cardiorenal syndrome in setting of A-fib with RVR and acute CHF exacerbation. He has no evidence of obstructive uropathy on renal ultrasound. (2) NSTEMI (non-ST elevated myocardial infarction): Assessment/Problem Details: Patient was admitted for WI and his echocardiogram showed EF 35 to [...] Monroy MD 04/14/24 1257 Signed By: 04/14/[address] [place], [place] 6204402-23-2025 [place] [address] Cardiology Progress Note Signed Patient: Corwin Muller MR#: [id number] : 1945 Acct:[id number] Age/Sex: 79 / M Adm Date: 5 Loc: Room: [address] [place] [address] Type: ADM IN Attending Dr: Jersey Bess MD Copies to: ~ Date of Service: 04/14/2024 Subjective Principal diagnosis: Congestive heart failure/atrial fibrillation Interval history: Mr. Muller is a 79 year old male was sent by his physician to the hospital because of observationof worsening respiratory status and tachycardia. He was evaluated in the emergency room at [place]. The patient described progressive shortness of breath [...] elevated when the patient was sent to [facility] for further care. Thepatient denies chest [...] Documented By: Bubba Jessica MD 03/24 05/14 124 Signed By: 04/14/24 1248 [facility]02-22-2025 Progress note Author Tobi Monroy [facility] Date/TimeFebruary 2024 2:23pm [place] [address] Nephrology Progress Note Signed Patient: Corwin Muller MR#: [id number] : 1945 Acct:[id number] Age/Sex: 79 / M Adm Date: 5 Loc: Room: [address] [place] [address] Type: ADM IN Attending Dr: Jersey Bess [...] that time. He was evaluated in the [facility] with EKG showingSVT and inverted T [...] 200 Mg Tablet) 400 mg PO TID [facility] Stop: 04/11/25 13:59 Last Admin: 04/13/24 09:51 Dose: 400 mg Apixaban (Apixaban 2.5 Mg Tablet) 2.5 mg PO BID [facility] Stop: 04/12/25 20:59 Last Admin: 04/13/24 09:43 Dose: 2.5 mg Aspirin (Aspirin 81 Mg Tablet.Dr) 81 mg PO DAILY [facility] Stop: 04/11/25 08:59 Last Admin: 04/13/24 09:45 Dose: 81 mg Diltiazem HCl (Diltiazem Cd.24hr 240 Mg Cap.Er.24h) 240 mg PO DAILY [facility] Stop: 04/13/25 12:44 Furosemide (Furosemide 40 Mg Tablet) 40 mg PO BID@0800,1600 [facility] Stop: 04/12/25 15:59 Last Admin: 04/13/24 09:44 Dose: 40 mg Hydralazine HCl (Hydralazine 25 Mg Tablet) 25 mg PO BID [facility] Stop: 04/12/25 20:59 Last Admin: 04/13/24 09:44 Dose: 25 mg Diltiazem HCl (Cardizem) 100 mg in 100 mls @ 10 mls/hr IV .Q10H [facility]; Protocol Stop: 04/11/25 10:14 Last Admin: 04/13/24 02:47 Dose: 10 mg/hr, 10 mls/hr Ceftriaxone Sodium (Rocephin) 1 gm in 50 mls @ 100 mls/hr IV Q24H [facility] Last Admin: 04/13/24 12:32 Dose: 100 mls/hr Isosorbide Mononitrate (Isosorbide Mononitrate 24hr Er 30 Mg Tab.Er.24h) 30 mg PO DAILY.6A [facility] Stop: 04/13/25 05:59 Last Admin: 04/13/24 05:43 Dose: 30 mg Metoprolol Succinate (Metoprolol Succinate 50 Mg Tab.Er.24h) 50 mg PO BID [facility] Stop: 04/13/25 20:59 Morphine Sulfate (Morphine Sulfate [...] Jones Pedro M.D.04/12/2024 9:34 PM Dictation Location: [place] [address] Any impression(s) listed above is documentation that [...] infarction): Assessment/Problem Details: Patient was admitted for WI and his echocardiogram showed EF 35 to [...] * Documented By: Tobi Monroy MD 04/13/24 142 Signed By: <Electronically signed by Tobi Monroy MD> 04/13/24 1423 [facility] Work Phone: 1(783) 466-568102-22-2025 Progress note Author Bubba Jessica [facility] Date/TimeFebruary 2024 1:26pm [place] [address] Cardiology Progress Note Signed Patient: Corwin Muller MR#: [id number] : 1945 Acct:[id number] Age/Sex: 79 / M Adm Date: 5 Loc: Room: 7K1059-0 Type: ADM IN Attending Dr: Jersey Bess MD Copies to: ~ Date of Service: 04/13/2024 Subjective Principal diagnosis: Congestive heart failure/atrial fibrillation Interval history: Mr. Muller is a 79 year old male was sent by his physician to the hospital because of observationof worsening respiratory status and tachycardia. He was evaluated in the emergency room at [place]. The patient described progressive shortness of breath [...] elevated when the patient was sent to [facility] for further care. Thepatient denies chest [...] % (Auto) 63.3 Lymph % (Auto) 18.6 Alpine % (Auto) 11.0 Eos % (Auto) 6.7 Baso % (Auto) 0.4 Nucleat RBC Rel Count 0.1 Neut # (Auto) 5.5 Lymph # (Auto) 1.6 Alpine # (Auto) 1.0 H Eos # (Auto) [...] <Electronically signed by Bubba Jessica MD> 04/13/24 8151 [facility] Work Phone: 1(813) 703-570302-22-2025 [place] [address] Nephrology Progress Note Signed Patient: Corwin Muller MR#: [id number] : 1945 Acct:[id number] Age/Sex: 79 / M Adm Date: 5 Loc: Room: [address] [place] [address] Type: ADM IN Attending Dr: Jersey Bess [...] that time. He was evaluated in the [facility] with EKG showingSVT and inverted T [...] 200 Mg Tablet) 400 mg PO TID [facility] Stop: 04/11/25 13:59 Last Admin: 04/13/24 09:51 Dose: 400 mg Apixaban (Apixaban 2.5 Mg Tablet) 2.5 mg PO BID [facility] Stop: 04/12/25 20:59 Last Admin: 04/13/24 09:43 Dose: 2.5 mg Aspirin (Aspirin 81 Mg Tablet.Dr) 81 mg PO DAILY [facility] Stop: 04/11/25 08:59 Last Admin: 04/13/24 09:45 Dose: 81 mg Diltiazem HCl (Diltiazem Cd.24hr 240 Mg Cap.Er.24h) 240 mg PO DAILY [facility] Stop: 04/13/25 12:44 Furosemide (Furosemide 40 Mg Tablet) 40 mg PO BID@0800,1600 [facility] Stop: 04/12/25 15:59 Last Admin: 04/13/24 09:44 Dose: 40 mg Hydralazine HCl (Hydralazine 25 Mg Tablet) 25 mg PO BID [facility] Stop: 04/12/25 20:59 Last Admin: 04/13/24 09:44 Dose: 25 mg Diltiazem HCl (Cardizem) 100 mg in 100 mls @ 10 mls/hr IV .Q10H [facility]; Protocol Stop: 04/11/25 10:14 Last Admin: 04/13/24 02:47 Dose: 10 mg/hr, 10 mls/hr Ceftriaxone Sodium (Rocephin) 1 gm in 50 mls @ 100 mls/hr IV Q24H [facility] Last Admin: 04/13/24 12:32 Dose: 100 mls/hr Isosorbide Mononitrate (Isosorbide Mononitrate 24hr Er 30 Mg Tab.Er.24h) 30 mg PO DAILY.6A [facility] Stop: 04/13/25 05:59 Last Admin: 04/13/24 05:43 Dose: 30 mg Metoprolol Succinate (Metoprolol Succinate 50 Mg Tab.Er.24h) 50 mg PO BID [facility] Stop: 04/13/25 20:59 Morphine Sulfate (Morphine Sulfate [...] Jones Pedro M.D.04/12/2024 9:34 PM Dictation Location: [place] [address] Any impression(s) listed above is documentation that [...] infarction): Assessment/Problem Details: Patient was admitted for [place] and his echocardiogram showed EF 35 to [...] Monroy MD 04/13/241419 Signed By: 04/13/24 1423 [facility]02-22-2025 Progress note Author Jersey Bess [facility] Date/TimeFebruary 2024 11:47am [place] [address] Hospitalist Progress Note Signed Patient: Corwin Muller MR#: [id number] : 1945 Acct:[id number] Age/Sex: 79 / M Adm Date: 5 Loc: Room: 5M7497-7 Type: ADM IN Attending Dr: Jersey Bess [...] <Electronically signed by Jersey Bess MD> 04/13/24 2986 [facility] Work Phone: 1([phone]) [phone] [place] [address] Cardiology Progress Note Signed Patient: Corwin Muller MR#: [id number] : 1945 Acct:[id number] Age/Sex: 79 / M Adm Date: 5 Loc: Room: [address] [place] [address] Type: ADM IN Attending Dr: Jersey Bess MD Copies to: ~ Date of Service: 04/13/2024 Subjective Principal diagnosis: Congestive heart failure/atrial fibrillation Interval history: Mr. Muller is a 79 year old male was sent by his physician to the hospital because of observationof worsening respiratory status and tachycardia. He was evaluated in the emergency room at [place]. The patient described progressive shortness of breath [...] elevated when the patient was sent to [facility] for further care. Thepatient denies chest [...] % (Auto) 63.3 Lymph % (Auto) 18.6 Alpine % (Auto) 11.0 Eos % (Auto) 6.7 Baso % (Auto) 0.4 Nucleat RBC Rel Count 0.1 Neut # (Auto) 5.5 Lymph # (Auto) 1.6 Alpine # (Auto) 1.0 H Eos # (Auto) [...] 03/24 04/16 1319 Signed By: 04/13/24 1326 [facility]02-22-2025 [place] [id number] Hospitalist Progress Note Signed Patient: Corwin Muller MR#: [id number] : 1945 Acct:[id number] Age/Sex: 79 / M Adm Date: 5 Loc: 4P Room: [address] [place] [address] Type: ADM IN Attending Dr: Jersey Bess [...] 04/13/24 11 44 Signed By: 04/13/24 1147 [facility]02-21-2025 Radiology Diagnostic study note [facility] Main [place] [address] [place] [address] Ultrasound Report Signed Patient: Corwin Muller MR#: [id number] : 1945 Acct:[id number] Age/Sex: 79 / M ADM Date: 5 Loc: Room: [address] [place] [address] Type: ADM IN Attending Dr: Jersey Bess [...] Jones Pedro M.D.04/12/2024 9:34 PM Dictation Location: [place] [address] Tech: Lacey Archer Transcribed By: RK 04/12/242133 Dictated By: Jones Pedro II, MD 04/12/242132 Signed By: 04/12/242133 [facility] Work Phone: 1(802) 142-531402-21-2025 Progress note Author Keron Gutierres [facility] Date/TimeFebruary 2024 6:17pm [address] [address] Cardiology Progress Note Signed Patient: Corwin Muller MR#: [id number] : 1945 Acct:[id number] Age/Sex: 79 / M Adm Date: 5 Loc: 4 Room: 1A5877-3 Type: ADM IN Attending Dr: Jersey Bess MD Copies to: ~ Date of Service: 04/12/2024 Subjective Principal diagnosis: Congestive heart failure/atrial fibrillation Interval history: Mr. Muller is a 79 year old male was sent by his physician to the hospital because of observationof worsening respiratory status and tachycardia. He was evaluated in the emergency room at [place]. The patient described progressive shortness of breath [...] elevated when the patient was sent to [facility] for further care. Thepatient denies chest [...] % (Auto) 60.4 Lymph % (Auto) 23.6 Alpine % (Auto) 11.0 Eos % (Auto) 4.7 Baso % (Auto) 0.3 Nucleat RBC Rel Count 0.1 Neut # (Auto) 6.6 Lymph # (Auto) 2.6 Alpine # (Auto) 1.2 H Eos # (Auto) [...] Color Urine Appearance Urine pH Ur Specific Mears Urine Protein Urine Glucose (UA) Urine Ketones [...] MPV Neut % (Auto) Lymph % (Auto) Alpine % (Auto) Eos % (Auto) Baso % (Auto) Nucleat RBC Rel Count Neut # (Auto) Lymph # (Auto) Alpine # (Auto) Eos # (Auto) Baso # (Auto) Heparin Anti-Xa, Unfract 0.32 PHA Creatinine Clear Sodium Potassium Chloride Carbon Dioxide Anion Gap BUN Creatinine Est GFR (CKD-EPI) Glucose Calcium Total Bilirubin AST ALT Alkaline Phosphatase Total Protein Albumin Globulin Albumin/Globulin Ratio Urine Color Light-orange A Urine Appearance Turbid A Urine pH 5.5 Ur Specific Mears 1.011 Urine Protein 50 H Urine Glucose [...] bedside Documented By: Keron Gutierres MD, [facility] 1811 Signed By: <Electronically signed by MD JUAN Gutierres> 04/12/241816 [facility] Work Phone: 1(854) 772-598502-21-2025 [place] [address] Cardiology Progress Note Signed Patient: Corwin Muller MR#: [id number] : 1945 Acct:[id number] Age/Sex: 79 / M Adm Date: 5 Loc: 4 Room: [id number] Type: ADM IN Attending Dr: Jersey Bess MD Copies to: ~ Date of Service: 04/12/2024 Subjective Principal diagnosis: Congestive heart failure/atrial fibrillation Interval history: Mr. Muller is a 79 year old male was sent by his physician to the hospital because of observationof worsening respiratory status and tachycardia. He was evaluated in the emergency room at [place]. The patient described progressive shortness of breath [...] elevated when the patient was sent to [facility] for further care. Thepatient denies chest [...] % (Auto) 60.4 Lymph % (Auto) 23.6 Alpine % (Auto) 11.0 Eos % (Auto) 4.7 Baso % (Auto) 0.3 Nucleat RBC Rel Count 0.1 Neut # (Auto) 6.6 Lymph # (Auto) 2.6 Alpine # (Auto) 1.2 H Eos # (Auto) [...] Color Urine Appearance Urine pH Ur Specific Mears Urine Protein Urine Glucose (UA) Urine Ketones [...] MPV Neut % (Auto) Lymph % (Auto) Alpine % (Auto) Eos % (Auto) Baso % (Auto) Nucleat RBC Rel Count Neut # (Auto) Lymph # (Auto) Alpine # (Auto) Eos # (Auto) Baso # (Auto) Heparin Anti-Xa, Unfract 0.32 PHA Creatinine Clear Sodium Potassium Chloride Carbon Dioxide Anion Gap BUN Creatinine Est GFR (CKD-EPI) Glucose Calcium Total Bilirubin AST ALT Alkaline Phosphatase Total Protein Albumin Globulin Albumin/Globulin Ratio Urine Color Light-orange A Urine Appearance Turbid A Urine pH 5.5 Ur Specific Mears 1.011 Urine Protein 50 H Urine Glucose [...] the bedside Documented By: Keron Gutierres MD, [facility] 1811 Signed By: 04/12/241816 [facility]02-21-2025 Progress note Author Jersey Bess [facility] Date/TimeFebruary 2024 3:42pm [place] [address] Hospitalist Progress Note Signed Patient: Corwin Muller MR#: [id number] : 1945 Acct:[id number] Age/Sex: 79 / M Adm Date: 5 Loc: Room: [address] [place] [address] Type: ADM IN Attending Dr: Jersey Bess [...] 40 Mg Tablet PO 04/12/25 15:59 BID@0800,1600 [facility] Heparin Sodium (Porcine) 2,000 unit 04/11/24 10:14 [...] <Electronically signed by Jersey Bess MD> 04/12/24 1542 [facility] Work Phone: [phone]) 177-933002-21-2025 [place] [address] Hospitalist Progress Note Signed Patient: Corwin Muller MR#: [id number] : 1945 Acct:[id number] Age/Sex: 79 / M Adm Date: 5 Loc: Room: [address] [place] [address] Type: ADM IN Attending Dr: Jersey Bess [...] Tablet PO 04/11/25 07:59 6.25 mg BID.WITH.MEALS BLESSIGN Administration Furosemide 40 mg 04/12/24 16:00 Furosemide 40 Mg Tablet PO 04/12/25 15:59 BID@0800,1600 [facility] Heparin Sodium (Porcine) 2,000 unit 04/11/24 10:14 [...] 04/12/24 15 37 Signed By: 04/12/24 1542 [facility]02-21-2025 Consult note Author Tobi Monroy [facility] Date/TimeFebruary 2024 10:34am [address] [address] Nephrology Consult Note Signed Patient: Corwin Muller MR#: [id number] : 1945 Acct:[id number] Age/Sex: 79 / M Adm Date: 5 Loc: Room: [address] [place] [address] Type: ADM IN Attending Dr: Jersey Bess [...] that time. He was evaluated in the [facility] with EKG showingSVT and inverted T [...] polydipsia Dermatological: denies any itching or rash [facility] Medical History (Updated 04/12/24 @ 10:33 by Tobi Monroy MD) Atrial tachycardia Lumbar spondylosis Hyperlipidemia type II Primary osteoarthritis of right knee Primary osteoarthritis of left knee Knee pain Hypertension Elevated cholesterol Surgical History H/O hernia repair Family History Father 67 yrs Aortic aneurysm and dissection Mother 90 yrs [facility]: Diagnosed with St[facility] Stroke Brother [...] TID BLESSING Stop: 04/11/25 13:59 Last Admin: 04/12/24 08:28 Dose: 400 mg Aspirin (Aspirin 81 Mg Tablet.Dr) 81 mg PO DAILY [facility] Stop: 04/11/25 08:59 Last Admin: 04/12/24 08:28 Dose: 81 mg Carvedilol (Carvedilol 6.25 Mg Tablet) 6.25 mg PO BID.WITH.MEALS [facility] Stop: 04/11/25 07:59 Last Admin: 04/12/24 08:28 Dose: 6.25 mg Furosemide (Furosemide 40 Mg/4 Ml Vial) 40 mg IV-PUSH BID@0800,1600 [facility] Stop: 04/11/25 15:59 Last Admin: 04/12/24 08:28 Dose: 40 mg Heparin Sodium (Porcine) (Heparin *Protocol Bolus* 5,000 Unit/Ml Vial) 2,000 unit IV-PUSH PROTOCOL PRN PRN Reason: Anti-Xa < 0.1 or aPTT < 40 Stop: 04/11/25 10:13 Hydralazine HCl (Hydralazine 50 Mg Tablet) 50 mg PO BID [facility] Stop: 04/11/25 20:59 Last Admin: 04/11/24 21:45 Dose: Not Given Diltiazem HCl (Cardizem) 100 mg in 100 mls @ 10 mls/hr IV .Q10H [facility]; Protocol Stop: 04/11/25 10:14 Last Admin: 04/12/24 06:07 Dose: 10 mg/hr, 10 mls/hr Heparin Sodium/Sodium Chloride (Heparin) 25,000 unit in 250 mls @ 9.99 mls/hr IV .Q24H [facility]; Protocol Stop: 04/11/25 10:14 Last Titration: 04/12/24 01:48 Dose: 14.68 unit/kg/hr, 15.15 mls/hr Isosorbide Mononitrate (Isosorbide Mononitrate 24hr Er 60 Mg Tab.Er.24h) 60 mg PO DAILY.6A [facility] Stop: 04/11/25 11:59 Last Admin: 04/12/24 06:10 Dose: 60 mg Miscellaneous Information (Consult To Pharmacy) 1 each MISCELLANE .PHACONSULT PRN; Protocol PRN Reason: NATALYA.Pharmacy Consult Stop: 04/11/25 10:13 Morphine Sulfate (Morphine [...] infarction): Assessment/Problem Details: Patient was admitted for [place] and his echocardiogram showed EF 35 to [...] daily. Documented By: Tobi Monroy MD 04/12/24 6702 Signed By: <Electronically signed by Tobi Monroy MD> 04/12/24 1034 <Electronically signed by DO NIKO Carpenter> 04/12/24 1022 [facility] Work Phone: 1(376) 592-410602-21-[address] [address] Nephrology Consult Note Signed Patient: Corwin Muller MR#: [id number] : 1945 Acct:[id number] Age/Sex: 79 / M Adm Date: 5 Loc: Room: [address] [place] [address] Type: ADM IN Attending Dr: Jersey Bess MD Copies to: MD Ranjan Patrcik DO Kaitlyn Rizzo, DO, RES Jersey Bess [...] that time. He was evaluated in the [facility] with EKG showingSVT and inverted T [...] polydipsia Dermatological: denies any itching or rash [facility] Medical History (Updated 04/12/24 @ 10:33 [...] TID BLESSING Stop: 04/11/25 13:59 Last Admin: 04/12/24 08:28 Dose: 400 mg Aspirin (Aspirin 81 Mg Tablet.Dr) 81 mg PO DAILY [facility] Stop: 04/11/25 08:59 Last Admin: 04/12/24 08:28 Dose: 81 mg Carvedilol (Carvedilol 6.25 Mg Tablet) 6.25 mg PO BID.WITH.MEALS [facility] Stop: 04/11/25 07:59 Last Admin: 04/12/24 08:28 Dose: 6.25 mg Furosemide (Furosemide 40 Mg/4 Ml Vial) 40 mg IV-PUSH BID@0800,1600 [facility] Stop: 04/11/25 15:59 Last Admin: 04/12/24 08:28 Dose: 40 mg Heparin Sodium (Porcine) (Heparin *Protocol Bolus* 5,000 Unit/Ml Vial) 2,000 unit IV-PUSH PROTOCOL PRN PRN Reason: Anti-Xa < 0.1 or aPTT < 40 Stop: 04/11/25 10:13 Hydralazine HCl (Hydralazine 50 Mg Tablet) 50 mg PO BID [facility] Stop: 04/11/25 20:59 Last Admin: 04/11/24 21:45 Dose: Not Given Diltiazem HCl (Cardizem) 100 mg in 100 mls @ 10 mls/hr IV .Q10H [facility]; Protocol Stop: 04/11/25 10:14 Last Admin: 04/12/24 06:07 Dose: 10 mg/hr, 10 mls/hr Heparin Sodium/Sodium Chloride (Heparin) 25,000 unit in 250 mls @ 9.99 mls/hr IV .Q24H [facility]; Protocol Stop: 04/11/25 10:14 Last Titration: 04/12/24 01:48 Dose: 14.68 unit/kg/hr, 15.15 mls/hr Isosorbide Mononitrate (Isosorbide Mononitrate 24hr Er 60 Mg Tab.Er.24h) 60 mg PO DAILY.6A [facility] Stop: 04/11/25 11:59 Last Admin: 04/12/24 06:10 [...] infarction): Assessment/Problem Details: Patient was admitted for [place] and his echocardiogram showed EF 35 to [...] 0855 Signed By: 04/12/24 1034 04/12/24 1022 [facility]02-20-2025 Progress note Author Keron Gutierres [facility] Date/TimeFebruary 2024 12:56pm [place] [address] Cardiology Progress Note Signed Patient: Corwin Muller MR#: [id number] : 1945 Acct:[id number] Age/Sex: 79 / M Adm Date: 5 Loc: Room: [address] [place] [address] Type: ADM IN Attending Dr: Jersey Bess MD Copies to: ~ Date of Service: 04/11/2024 Subjective Principal diagnosis: Congestive heart failure/atrial fibrillation Interval history: Mr. Muller is a 79 year old male was sent by his physician to the hospital because of observationof worsening respiratory status and tachycardia. He was evaluated in the emergency room at [place]. The patient described progressive shortness of breath [...] elevated when the patient was sent to [facility] for further care. Thepatient denies chest [...] % (Auto) 63.0 Lymph % (Auto) 21.4 Alpine % (Auto) 10.9 Eos % (Auto) 4.3 Baso % (Auto) 0.4 Nucleat RBC Rel Count 0.1 Neut # (Auto) 5.9 Lymph # (Auto) 2.0 Alpine # (Auto) 1.0 H Eos # (Auto) [...] bedside Documented By: Keron Gutierres MD, [facility] 5 1250 Signed By: <Electronically signed by MD JUAN Gutierres> 04/11/24 1237 [facility] Work Phone: 1(105) 856-169802-20-2025 Progress note Author Jersey Bess [facility] Date/TimeFebruary 2024 12:15pm [place] [address] Hospitalist Progress Note Signed Patient: Corwin Muller MR#: [id number] : 1945 Acct:[id number] Age/Sex: 79 / M Adm Date: 5 Loc: Room: [address] [place] [address] Type: ADM IN Attending Dr: Jersey Bess [...] 200 Mg Tablet PO 04/11/25 13:59 TID [facility] Aspirin 81 mg 04/11/24 09:00 04/11/24 08:09 Aspirin 81 Mg Tablet.Dr PO 04/11/25 08:59 81 mg DAILY BLESSING Administration Carvedilol 6.25 mg 04/11/24 08:00 04/11/24 08:09 Carvedilol 6.25 Mg Tablet PO 04/11/25 07:59 6.25 mg BID.WITH.MEALS [facility] Administration Heparin Sodium (Porcine) 2,000 unit 04/11/24 10:14 Heparin *Protocol Bolus* 5,000 Unit/Ml Vial IV-PUSH 04/11/25 10:13 PROTOCOL PRN Anti-Xa < 0.1 or aPTT < 40 Hydralazine HCl 50 mg 04/11/24 21:00 Hydralazine 50 Mg Tablet PO 04/11/25 20:59 BID [facility] Furosemide 500 mg/ Sodium 100 mls @ [...] signed by Jersey Bess MD> 04/11/24 1215 [facility] Work Phone: 1(162) 357-259302-20-2025 [place] [address] Cardiology Progress Note Signed Patient: Corwin Muller MR#: [id number] : 1945 Acct:[id number] Age/Sex: 79 / M Adm Date: 5 Loc: Room: [address] [place] [address] Type: ADM IN Attending Dr: Jersey Bess MD Copies to: ~ Date of Service: 04/11/2024 Subjective Principal diagnosis: Congestive heart failure/atrial fibrillation Interval history: Mr. Muller is a 79 year old male was sent by his physician to the hospital because of observationof worsening respiratory status and tachycardia. He was evaluated in the emergency room at [place]. The patient described progressive shortness of breath [...] elevated when the patient was sent to [facility] for further care. Thepatient denies chest [...] % (Auto) 63.0 Lymph % (Auto) 21.4 Alpine % (Auto) 10.9 Eos % (Auto) 4.3 Baso % (Auto) 0.4 Nucleat RBC Rel Count 0.1 Neut # (Auto) 5.9 Lymph # (Auto) 2.0 Alpine # (Auto) 1.0 H Eos # (Auto) [...] bedside Documented By: Keron Gutierres MD, [facility] 5 1250 Signed By: 04/11/24 1256 [facility]02-20-2025 [place] [id number] Hospitalist Progress Note Signed Patient: Corwin Muller MR#: [id number] : 1945 Acct:[id number] Age/Sex: 79 / M Adm Date: 5 Loc: Room: [address] [place] [address] Type: ADM IN Attending Dr: Jersey Bess [...] Grossly normal Objective Lab Results 04/11/24 05:43 02/20/25 05:43 Meds Allergies and Active Meds Allergies [...] MD 04/11/24 11 57 Signed By: 04/11/[address] [place], [place] 1544002-19-2025 Consult note Author Mely Ken [facility] Date/TimeFebruary 2024 6:17pm [place] [address] Cardiology Consult Note Signed Patient: Corwin Muller MR#: [id number] : 1945 Acct:[id number] Age/Sex: 79 / M Adm Date: 5 Loc: Room: [address] [place] [address] Type: ADM IN Attending Dr: Jersey Bess [...] was evaluated in the emergency room at [place]. The patient described progressive shortness of breath [...] elevated when the patient was sent to [facility] for further care. Thepatient denies chest [...] shortness of breath, orthopnea and the pain [facility] Medical History Atrial tachycardia Chronic kidney [...] x10E3/uL Lymph # (Auto) 2.0 (1.00-4.8) x10E3/uL Alpine # (Auto) 1.1 H (0.0-0.8) x10E3/uL Eos [...] 200 / 350 Output: Urine Amount (Catheter) 1999 Urethral (Ruiz) 400 1999 Other: Weight [...] <Electronically signed by MD Mely Ken> 04/10/241816 [facility] Work Phone: 1(782) 148-265802-19-2025 [place] [address] Cardiology Consult Note Signed Patient: Corwin Muller MR#: [id number] : 1945 Acct:[id number] Age/Sex: 79 / M Adm Date: 5 Loc: Room: [address] [place] [address] Type: ADM IN Attending Dr: Jersey Bess [...] was evaluated in the emergency room at [place]. The patient described progressive shortness of breath [...] elevated when the patient was sent to [facility] for further care. Thepatient denies chest [...] shortness of breath, orthopnea and the pain [facility] Medical History Atrial tachycardia Chronic kidney disease Lumbar spondylosis Hyperlipidemia type II Primary osteoarthritis of right knee Primary osteoarthritis of left knee Knee pain Hypertension Elevated cholesterol Surgical History H/O hernia repair Family History Father 67 yrs Aortic aneurysm and dissection Mother 90 yrs History of stroke [facility] Problem: Diagnosed with Stroke Stroke Brother [...] x10E3/uL Lymph # (Auto) 2.0 (1.00-4.8) x10E3/uL Alpine # (Auto) 1.1 H (0.0-0.8) x10E3/uL Eos [...] 200 / 350 Output: Urine Amount (Catheter) 1999 Urethral (Ruiz) 1999 Other: Weight 103.2 kg Date of [...] Mely Ken MD 04/10/241806 Signed By: 04/10/241816 [facility]02-19-2025 Progress note Author Jersey Bess [facility] Date/TimeFebruary 2024 2:38pm [address] [address] Progress Note Signed Patient: Corwin Muller MR#: [id number] : 1945 Acct:[id number] Age/Sex: 79 / M Adm Date: 5 Loc: Room: [address] [place] [address] Type: ADM IN Attending Dr: Jersey Bess [...] signed by Jersey Bess MD> 04/10/24 1438 [facility] Work Phone: 1(248) 322-894802-19-[address] [address] Progress Note Signed Patient: Corwin Muller MR#: [id number] : 1945 Acct:[id number] Age/Sex: 79 / M Adm Date: 5 Loc: 4C Room: [address] [place] [address] Type: ADM IN Attending Dr: Jersey Bess [...] 04/10/24 14 34 Signed By: 04/10/24 1438 [facility]02-19-2025 History and physical note Author Holly Weinberg [facility] Date/TimeFebruary 2024 6:45am [place] [address] Hospitalist H&P Signed Patient: Corwin Muller MR#: [id number] : 1945 Acct:[id number] Age/Sex: 79 / M Adm Date: 5 Loc: Room: [address] [place] [address] Type: ADM IN Attending Dr: Kurtis Langley MD Copies to: MD Ranjan Soto DO Paula G Smith, DISC RULER OPERATOR~ HPI DATE OF EXAMINATION: 04/10/24 CHIEF [...] were con sistent with acute pulmonary edema. [id number] ultrasound confirmed scattered B-lines bilaterally, there was [...] drinks alcohol. States that he exercises daily. [facility] chart review?initial EKG SVT with a [...] unless noted in the HPI or below. [facility] Medical History Atrial tachycardia Chronic kidney [...] 3 Documented By: Holly Weinberg APRN 04/10/24 041 Signed By: <Electronically signed by SUBHASH Weinberg> 04/10/24421 <Electronically signed by Kurtis Langley MD> 04/10/24 0645 [facility] Work Phone: [phone]) 922-659102-19-2025 [place] [address] Hospitalist H&P Signed Patient: Corwin Muller MR#: [id number] : 1945 Acct:[id number] Age/Sex: 79 / M Adm Date: 5 Loc: 3T Room: 0F5142-1 Type: ADM IN Attending Dr: Kurtis Langley MD Copies to: MD Ranjan Soto DO Paula G Smith, DISC RULER OPERATOR~ HPI DATE OF EXAMINATION: 04/10/24 CHIEF [...] were con sistent with acute pulmonary edema. [id number] ultrasound confirmed scattered B-lines bilaterally, there was [...] drinks alcohol. States that he exercises daily. [facility] chart review?initial EKG SVT with a [...] unless noted in the HPI or below. [facility] Medical History Atrial tachycardia Chronic kidney [...] of days): 3 Documented By: Holly Weinberg, DISC RULER OPERATOR 04/10/24 0411 Signed By: 04/10/24 0422 04/10/24 0645 [facility]02-18-2025 Evaluation note* Diagnosis Onset Date Resolution Status Admit Date Atrial tachycardia acuteFebruary 2024 2:27pmElevated cholesterolacuteFebruary 2024 2:27pmHypertensionacuteFebruary 2024 2:27pmChronic kidney diseasedeleted April 09, 2024 2:27pmAcute hypoxic respiratory failureacuteFebruary 2024 1:30amAcute kidney injury superimposed on CKDacuteFebruary 2024 1:30amAcute pulmonary edemaacuteFebruary 2024 1:30amAcute systolic CHF (congestive heart failure)acuteFebruary 2024 1:30amCardiomyopathyacute April 10, 2024 1:30amCHF (congestive heart failure)acuteFebruary 2024 1:30amCKD (chronic kidney disease) stage 3, GFR 30-59 ml/minacuteFebruary 2024 1:30amHFrEF (heart failure with reduced ejection fraction)acuteFebruary 2024 1:30amHypertensionacuteFebruary 2024 1:30amNSTEMI (non-ST elevated myocardial infarction)acuteFebruary 2024 1:30amParoxysmal atrial fibrillation with RVRacuteFebruary 2024 1:30amSVT (supraventricular tachycardia)acuteFebruary 2024 1:30amUTI (urinary tract infection)acute April 10, 2024 1:30amChronic kidney diseasedeletedFebruary 2024 1:30am [facility] Work Phone: 1(896) 886-605202-18-2025 Evaluation note* Diagnosis Onset Date Resolution Status Admit Date Elevated cholesterol acuteFebruary 2024 2:27pmHypertensionacuteFebruary 2024 2:27pmAtrial tachycardiadeletedFebruary 2024 2:27pmChronic kidney diseasedeleted April 09, 2024 2:27pmAcute kidney injury superimposed on CKDacuteFebruary 2024 1:30amCKD (chronic kidney disease) stage 3, GFR 30-59 ml/minacute April 10, 2024 1:30amHFrEF (heart failure with reduced ejection fraction) acuteFebruary 2024 1:30amHypertensionacuteFebruary 2024 1:30amNSTEMI (non-ST elevated myocardial infarction)acuteFebruary 2024 1:30amParoxysmal atrial fibrillation with RVRacuteFebruary 2024 1:30amAcute hypoxic respiratory failureresolvedFebruary 2024 1:30amAcute pulmonary edema resolvedFebruary 2024 1:30amAcute systolic CHF (congestive heart failure) resolvedFebruary 2024 1:30amCHF (congestive heart failure)resolvedFebruary 2024 1:30amSVT (supraventricular tachycardia)resolvedFebruary 2024 1:30amUTI (urinary tract infection)resolvedFebruary 2024 1:30am CardiomyopathydeletedFebruary 2024 1:30amChronic kidney diseasedeleted April 10, 2024 1:30amAtrial fibrillationacuteMarch 2024 10:21amChronic kidney diseaseacuteMarch 2024 10:21amElevated cholesterolacuteMarch 2024 10:21amHFrEF (heart failure with reduced ejection fraction)acuteMarch 2024 10:21amHypertensionacuteMarch 2024 10:21amIschemic cardiomyopathyacute March 2024 10:21am [facility] Work Phone: 1(607) 855-212102-18-2025 Evaluation note* Diagnosis Onset Date Resolution Status Admit Date Elevated cholesterol acuteFebruary 2024 2:27pmHypertensionacuteFebruary 2024 2:27pmAtrial tachycardiadeletedFebruary 2024 2:27pmChronic kidney diseasedeleted April 09, 2024 2:27pmAcute kidney injury superimposed on CKDacuteFebruary 2024 1:30amCKD (chronic kidney disease) stage 3, GFR 30-59 ml/minacute April 10, 2024 1:30amHFrEF (heart failure with reduced ejection fraction) acuteFebruary 2024 1:30amHypertensionacuteFebruary 2024 1:30amNSTEMI (non-ST elevated myocardial infarction)acuteFebruary 2024 1:30amParoxysmal atrial fibrillation with RVRacuteFebruary 2024 1:30amAcute hypoxic respiratory failureresolvedFebruary 2024 1:30amAcute pulmonary edema resolvedFebruary 2024 1:30amAcute systolic CHF (congestive heart failure) resolvedFebruary 2024 1:30amCHF (congestive heart failure)resolvedFebruary 2024 1:30amSVT (supraventricular tachycardia)resolvedFebruary 2024 1:30amUTI (urinary tract infection)resolvedFebruary 2024 1:30am CardiomyopathydeletedFebruary 2024 1:30amChronic kidney diseasedeleted April 10, 2024 1:30amAtrial fibrillationacuteMarch 2024 10:21amChronic kidney diseaseacuteMarch 2024 10:21amElevated cholesterolacuteMarch 2024 10:21amHFrEF (heart failure with reduced ejection fraction)[facility] 10:21amHypertensionacuteMarch 2024 10:21amIschemic cardiomyopathyacute April 23, 2024 10:21amAtrial fibrillationacuteMarch 2024 2:57pmCKD (chronic kidney disease) stage 4, GFR 15-29 ml/minacuteMarch 2024 2:57pm Elevated cholesterolacuteMarch 2024 2:57pmHFrEF (heart failure with reduced ejection fraction)acuteMarch 2024 2:57pmIschemic cardiomyopathyacuteMarch 2024 2:57pmSecondary hyperparathyroidismacuteMarch 2024 2:57pm [facility] Work Phone: 1(101) 244-965402-18-2025 Evaluation note* Diagnosis Onset Date Resolution Status Admit Date Hypertension acuteFebruary 2024 2:27pmElevated cholesterolresolvedFebruary 2024 2:27pmAtrial tachycardiadeletedFebruary 2024 2:27pmChronic kidney disease deletedFebruary 2024 2:27pmCKD (chronic kidney disease) stage 3, GFR 30-59 ml/minacuteFebruary 2024 1:30amHFrEF (heart failure with reduced ejection fraction)acuteFebruary 2024 1:30amHypertensionacuteFebruary 2024 1:30amParoxysmal atrial fibrillation with RVRacuteFebruary 2024 1:30am Acute hypoxic respiratory failureresolvedbruary 2024 1:30amAcute kidney injury superimposed on CKDresolvedFebruary 2024 1:30amAcute pulmonary edemaresolvedFebruary 2024 1:30amAcute systolic CHF (congestive heart failure)resolvedFebruary 2024 1:30amCHF (congestive heart failure)resolved April 10, 2024 1:30amNSTEMI (non-ST elevated myocardial infarction)2024 resolvedFebruary 2024 1:30amCardiomyopathydeletedFebruary 2024 1:30amChronic kidney diseasedeletedFebruary 2024 1:30amSVT (supraventricular tachycardia)deletedFebruary 2024 1:30amUTI (urinary tract infection)deletedFebruary 2024 1:30[address]Atrial fibrillationacute[facility] 20[facility] 10:21amChronic kidney diseaseacuteMer[facility] 2024 10:21amHFrEF (heart failure with reduced ejection fraction)acute[facility] 2024 10:21amHypertension acuteMer[facility] 2024 10:21amIschemic cardiomyopathyacuteMer[facility] 2024 10:21am Elevated cholesterolresolvedMercy Health [facility] 2024 10:21amAtrial fibrillationacuteMer[facility] 2024 2:57pmCKD (chronic kidney disease) stage 4, GFR 15-29 ml/minacuteMer[address] 2024 2:57pmHFrEF (heart failure with reduced ejection fraction)acuteMer[facility] 2024 2:57pmIschemic cardiomyopathyacuteMer[facility] 2024 2:57pmSecondary hyperparathyroidismacuteMer[facility] Health [facility] 2024 2:57pmElevated cholesterolresolvedMercy Health St[facility] 2024 2:57pmAtrial fibrillationacuteMer[facility] 2024 10:20amChronic kidney diseaseacuteMer[facility] 2024 10:20amHFrEF (heart failure with reduced ejection fraction)acuteMer[facility] 2024 [address] [facility] 2024 10:20am Ischemic cardiomyopathyacuteMer[facility] 2024 10:20amElevated cholesterolresolved March 2024 10:20am [facility] Work Phone: 1(818) 325-990102-18-2025 Evaluation note* Diagnosis Onset Date Resolution Status Admit Date Hypertension acutebruary 2024 2:27pmElevated cholesterolresCovington County Hospitaluary 2024 2:27pmAtrial tachycardiadeletedFebruary 2024 2:27pmChronic kidney disease deletedFebruary 2024 2:27pmCKD (chronic kidney disease) stage 3, GFR 30-59 ml/minacuteFebruary 2024 1:30amHFrEF (heart failure with reduced ejection fraction)acuteFebruary 2024 1:30amHypertensionacuteFebruary 2024 1:30amParoxysmal atrial fibrillation with RVRacuteFebruary 2024 1:30am Acute hypoxic respiratory failureresolvedFebruary 2024 1:30amAcute kidney injury superimposed on CKDresolvedFebruary 2024 1:30amAcute pulmonary edemaresolvedFebruary 2024 1:30amAcute systolic CHF (congestive heart failure)resolvedFebruary 2024 1:30amCHF (congestive heart failure)resolved April 10, 2024 1:30amNSTEMI (non-ST elevated myocardial infarction)2024 resolvedFebruary 2024 1:30amCardiomyopathydeletedFebruary 2024 1:30amChronic kidney diseasedeletedFebruary 2024 1:30amSVT (supraventricular tachycardia)deletedFebruary 2024 1:30amUTI (urinary tract infection)deletedFebruary 2024 1:30amAtrial fibrillationacuteMarch 2024 10:21amChronic kidney diseaseacuteMer[facility] 2024 10:21amHFrEF (heart failure with reduced ejection fraction)acuteMer[facility] 2024 10:21amHypertension acuteMer[facility] 2024 10:21amIschemic cardiomyopathyacuteMer[facility] 2024 10:21am Elevated cholesterolresolvedMercy Health St[facility] 2024 10:21amAtrial fibrillationacuteMarch 2024 2:57pmCKD (chronic kidney disease) stage 4, GFR 15-29 ml/minacuteMer[address] 2024 2:57pmHFrEF (heart failure with reduced ejection fraction)acuteMer[facility] 2024 2:57pmIschemic cardiomyopathyacuteMer[facility] 2024 2:57pmSecondary hyperparathyroidismacuteMar 2024 2:57pmElevated cholesterolresolvedMercy Health St[facility] 2024 2:57pmAtrial fibrillationacuteMer[facility] [address] 2024 10:20amChronic kidney diseaseacuteMer[facility] Health [facility] 2024 10:20amHFrEF (heart failure with reduced ejection fraction)acuteMarch 2024 10:20amIschemic cardiomyopathyacuteMer[address] [facility] 2024 10:20amKnee pain, bilateralacuteMarch 2024 10:20amPrimary osteoarthritis of both kneesacuteMarch 2024 10:20amAtrial fibrillation acuteApril 2024 12:50pmCKD (chronic kidney disease) stage 4, GFR 15-29 ml/minacuteApril 2024 12:50pmHFrEF (heart failure with reduced ejection fraction)acuteApril 2024 12:50pmHyperuricemiaacuteApril 2024 12:50pm Ischemic cardiomyopathyacuteApril 2024 12:50pmSecondary hyperparathyroidism acuteApril 2024 12:50pmElevated cholesterolresolvedApril 2024 12:50pm [facility] Work Phone: 1(198) 921-866102-18-2025 Evaluation note* Diagnosis Onset Date Resolution Status Admit Date Hypertension acuteFebruary 2024 2:27pmElevated cholesterolresolvedFebruary 2024 2:27pmAtrial tachycardiadeletedFebruary 2024 2:27pmChronic kidney disease deletedFebruary 2024 2:27pmHFrEF (heart failure with reduced ejection fraction)acuteFebruary 2024 1:30amHypertensionacuteFebruary 2024 1:30amParoxysmal atrial fibrillation with RVRacuteFebruary 2024 1:30am Acute hypoxic respiratory failureresolvedFebruary 2024 1:30amAcute kidney injury superimposed on CKDresolvedFebruary 2024 1:30amAcute pulmonary edemaresolvedFebruary 2024 1:30amAcute systolic CHF (congestive heart failure)resolvedFebruary 2024 1:30amCHF (congestive heart failure)resolved April 10, 2024 1:30amNSTEMI (non-ST elevated myocardial infarction)2024 resolvedFebruary 2024 1:30amCardiomyopathydeletedFebruary 2024 1:30amChronic kidney diseasedeletedFebruary 2024 1:30amCKD (chronic kidney disease) stage 3, GFR 30-59 ml/mindeletedFebruary 2024 1:30amSVT (supraventricular tachycardia)deletedFebruary 2024 1:30amUTI (urinary tract infection)deletedFebruary 2024 1:30amAtrial fibrillationacuteMar 2024 10:21amChronic kidney diseaseacuteMarch 2024 10:21amHFrEF (heart failure with reduced ejection fraction)acuteMarch 2024 10:21amHypertension acuteMarch 2024 10:21amIschemic cardiomyopathyacuteMarch 2024 10:21am Elevated cholesterolresolvedMarch 2024 10:21amAtrial fibrillationacuteMarch 2024 2:57pmCKD (chronic kidney disease) stage 4, GFR 15-29 ml/minacuteMarch 2024 2:57pmHFrEF (heart failure with reduced ejection fraction)acuteMarch 2024 2:57pmIschemic cardiomyopathyacuteMarch 2024 2:57pmSecondary hyperparathyroidismacuteMarch 2024 2:57pmElevated cholesterolresolvedMarch 2024 2:57pmAtrial fibrillationacuteMarch 2024 10:20amChronic kidney diseaseacuteMarch 2024 10:20amHFrEF (heart failure with reduced ejection fraction)acuteMarch 2024 10:20amIschemic cardiomyopathyacuteMarch 2024 10:20amKnee pain, bilateralacuteMarch 2024 10:20amPrimary osteoarthritis of both kneesacuteMarch 2024 10:20amAtrial fibrillation acuteApril 2024 12:50pmCKD (chronic kidney disease) stage 4, GFR 15-29 ml/minacuteApril 2024 12:50pmHFrEF (heart failure with reduced ejection fraction)acuteApril 2024 12:50pmHypertensive chronic kidney disease with stage 1 through stage 4 chronic kiacuteApril 2024 12:50pmHyperuricemiaacute Ketty 2024 12:50pmIschemic cardiomyopathyacuteApril 2024 12:50pm Secondary hyperparathyroidismacuteApr2024 12:50pmElevated cholesterol resolvedApril 2024 12:50pm [facility] Work Phone: 1(998) 477-282602-18-2025 Evaluation note* Diagnosis Onset Date Resolution Status Admit Date Hypertension acuteFebruary 2024 2:27pmElevated cholesterolresolvedFebruary 2024 2:27pmAtrial tachycardiadeletedFebruary 2024 2:27pmChronic kidney disease deletedFebruary 2024 2:27pmHFrEF (heart failure with reduced ejection fraction)acuteFebruary 2024 1:30amHypertensionacuteFebruary 2024 1:30amParoxysmal atrial fibrillation with RVRacuteFebruary 2024 1:30am Acute hypoxic respiratory failureresolvedFebruary 2024 1:30amAcute kidney injury superimposed on CKDresolvedFebruary 2024 1:30amAcute pulmonary edemaresolvedFebruary 2024 1:30amAcute systolic CHF (congestive heart failure)resolvedFebruary 2024 1:30amCHF (congestive heart failure)resolved April 10, 2024 1:30amNSTEMI (non-ST elevated myocardial infarction)2024 resolvedFebruary 2024 1:30amCardiomyopathydeletedFebruary 2024 1:30amChronic kidney diseasedeletedbruary 2024 1:30amCKD (chronic kidney disease) stage 3, GFR 30-59 ml/mindeletedFebruary 2024 1:30amSVT (supraventricular tachycardia)deletedFebruary 2024 1:30amUTI (urinary tract infection)deletedFebruary 2024 1:30amAtrial fibrillationacuteMarch 2024 10:21amChronic kidney diseaseacuteMarch 2024 10:21amHFrEF (heart failure with reduced ejection fraction)acute[facility] 10:21amHypertension acuteMer[facility] 2024 10:21amIschemic cardiomyopathyacuteMarch 2024 10:21am Elevated cholesterolresolvedMercy Health St[facility] 2024 10:21amAtrial fibrillationacuteMarch 2024 2:57pmCKD (chronic kidney disease) stage 4, GFR 15-29 ml/minacuteMar 2024 2:57pmHFrEF (heart failure with reduced ejection fraction)acuteMarch 2024 2:57pmIschemic cardiomyopathyacuteMarch 2024 2:57pmSecondary hyperparathyroidismacuteMarch 2024 2:57pmElevated cholesterolresolvedMarch 2024 2:57pmAtrial fibrillationacuteMarch 2024 10:20amChronic kidney diseaseacuteMarch 2024 10:20amHFrEF (heart failure with reduced ejection fraction)acuteMarch 2024 10:20amIschemic cardiomyopathyacuteMarch 2024 10:20amKnee pain, bilateralacuteMarch 2024 10:20amPrimary osteoarthritis of both kneesacuteMarch 2024 10:20amAtrial fibrillation acuteApril 2024 12:50pmCKD (chronic kidney disease) stage 4, GFR 15-29 ml/minacuteApril 2024 12:50pmHFrEF (heart failure with reduced ejection fraction)acuteApril 2024 12:50pmHypertensive chronic kidney disease with stage 1 through stage 4 chronic kiacuteApril 2024 12:50pmHyperuricemiaacute May 23, 2024 12:50pmIschemic cardiomyopathyacuteApril 2024 12:50pm Secondary hyperparathyroidismacuteApril 2024 12:50pmElevated cholesterol resolvedApril 2024 12:50pmChronic kidney diseaseacuteMay 2024 2:38pm Shoulder pain, leftacuteMay 2024 2:38pmStrain of left deltoid muscleacute June 24, 2024 2:38pmCKD (chronic kidney disease) stage 4, GFR 15-29 ml/minacute July 01, 2024 2:30pmHypertensive chronic kidney disease with stage 1 through stage 4 chronic kiacuteMay 2024 2:30pmHyperuricemiaacuteMay 2024 2:30pmSecondary hyperparathyroidismacuteMay 2024 2:30pm [facility] Work Phone: 1(143) 522-235112-22-2023 Evaluation note* Encounter Date Diagnosis Assessment Notes Treatment Notes Treatment Clinical Notes Jan, Acute pain of right knee (ICD-10 - M25.561) Rest, avoid squatting or kneeling Ice 10 minutes several times today The injection was performed under sterile technique w/o complications He is aware that the injection may make pain worse before it improves Jan,rimary hypertension (ICD-10 - I10)This patient is instructed to consume a healthy, low-fat, low-salt diet. They are also encouraged to continue exercise to achieve/maintain a normal BMI. Patient is instructed on home BP measurements: - rest for 5 minutes w/o talking- positioned w/ feeton floor and arm supported- average best 2/3 readings w/ goal < 135/85 Jan,cute pain of left knee (ICD-10 - M25.562)Rest, avoid squatting or kneeling Ice 10 minutes several times today The injection was performed under sterile technique w/o complications He is aware that the injection may make pain worse before it improves Jan,rimary osteoarthritis of both knees (ICD-10 - M17.0)Quad exercises, ice/heat, bracing and Tylenol. Avoid squatting or kneeling [employer] Other 12-22-2023 History general Narrative - Reported* Type Description Date Medical History HTN Medical HistoryAcute pain of right kneeMedical HistoryAcute pain of left knee Medical HistoryArthritis of both kneesMedical HistoryHypertensive chronic kidney disease w stg 1-4/unsp chr kdnyMedical HistoryArthritis of right hipMedical HistoryEssential (primary) hypertensionMedical HistoryNeoplasm of uncertain behaviorMedical HistoryHyperlipidemia type IIMedical HistoryLumbar spondylosis Surgical Historyhernia repairSurgical Historytumor removalSurgical History [id number] HistorySEE SURGICAL [employer] Other 09-18-2023 History general Narrative - Reported* Type Description Date Medical History HTN Medical HistoryAcute pain of right kneeMedical HistoryAcute pain of left knee Medical HistoryArthritis of both kneesMedical HistoryHypertensive chronic kidney disease w stg 1-4/unsp chr kdnyMedical HistoryArthritis of right hipMedical HistoryEssential (primary) hypertensionMedical HistoryNeoplasm of uncertain behaviorMedical HistoryHyperlipidemia type IIMedical HistoryLumbar spondylosis Surgical Historyhernia repairSurgical Historytumor removalSurgical History [id number] HistorySEE SURGICAL [employer] Other 08-23-2023 History general Narrative - Reported* Type Description Date Medical History HTN Medical HistoryAcute pain of right kneeMedical HistoryAcute pain of left knee Medical HistoryArthritis of both kneesMedical HistoryHypertensive chronic kidney disease w stg 1-4/unsp chr kdnyMedical HistoryArthritis of right hipMedical HistoryEssential (primary) hypertensionMedical HistoryNeoplasm of uncertain behaviorMedical HistoryHyperlipidemia type IIMedical HistoryLumbar spondylosis Surgical Historyhernia repairSurgical Historytumor removalSurgical History [id number] HistorySEE SURGICAL [employer] Other 08-15-2023 History general Narrative - Reported* Type Description Date Medical History HTN Medical HistoryAcute pain of right kneeMedical HistoryAcute pain of left knee Medical HistoryArthritis of both kneesMedical HistoryHypertensive chronic kidney disease w stg 1-4/unsp chr kdnyMedical HistoryArthritis of right hipMedical HistoryEssential (primary) hypertensionMedical HistoryNeoplasm of uncertain behaviorMedical HistoryHyperlipidemia type IIMedical HistoryLumbar spondylosis Surgical Historyhernia repairSurgical Historytumor removalSurgical History [id number] HistorySEE SURGICAL [employer] Other 08-14-2023 Evaluation note* Encounter Date Diagnosis Assessment Notes Treatment Notes Treatment Clinical Notes Sep, Impacted cerumen, bilateral (ICD -10 - H61.23) Successfully removed cerumen from B/L EAC. Mild dizziness post irrigation, which cleared within minutes. Patient ambulated out of the office w/o assistance Sep,rimary hypertension (ICD-10 - I10)This patient is instructed to consume a healthy, low-fat, low-salt diet. They are also encouraged to continue exercise to achieve/maintain a normal BMI Patient is instructed on home BP measurements: - rest for 5 minutes w/o talking- positioned w/ feeton floor and arm supported- average best 2/3 readings w/ goal < 135-85 [employer] Other 05-30-2023 Evaluation note* Encounter Date Diagnosis Assessment Notes Treatment Notes Treatment Clinical Notes June, Acute pain of right knee (ICD-10 - M25.561) Quad exercises, ice/heat and Tylenol. June,cute pain of left knee (ICD-10 - M25.562)Quad exercises, ice/heat and Tylenol. June,rimary osteoarthritis of both knees (ICD-10 - M17.0)IA injection B/L knees w/o complications. He is aware that his pain may worsen before it gets better. June,lantar fasciitis, bilateral (ICD-10 - M72.2)Exercises, stretching and icing. Refer to Podiatry if fails to improve June,ilateral impacted cerumen (ICD-10 - H61.23)Debrox q HS for week. No improvement, irrigate [facility] [employer] Other Evaluation noteNo InformationNosalem [facility] hospital [employer] Other Evaluation note* Diagnosis Onset Date Resolution Status Elevated cholesterol acuteHypertensionacuteKnee painacutePrimary osteoarthritis of left kneeacute Primary osteoarthritis of right kneeacute [facility] Work Phone: Evaluation note* Diagnosis Onset Date Resolution Status Admit Date Elevated cholesterol acuteFebruary 2024 2:27pmHypertensionacuteFebruary 2024 2:27pmKnee painacuteFebruary 2024 2:27pmPrimary osteoarthritis of left kneeacute February 2024 2:27pmPrimary osteoarthritis of right kneeacuteFebruary 2024 2:27pm [facility] Work Phone: Evaluation note* Diagnosis [...] unspecified BMI 27.0-27.9,adult documented in this encounter [facility] Work Phone: Evaluation note* Diagnosis [...] Never smoked tobacco documented in this encounter [facility] Work Phone: History general Narrative - Reported* Type Description Date Medical History HTN Medical HistoryAcute pain of right kneeMedical HistoryAcute pain of left knee Medical HistoryArthritis of both kneesMedical HistoryHypertensive chronic kidney disease w stg 1-4/unsp chr kdnyMedical HistoryArthritis of right hipMedical HistoryEssential (primary) hypertensionMedical HistoryNeoplasm of uncertain behaviorMedical HistoryHyperlipidemia type IIMedical HistoryLumbar spondylosis Surgical Historyhernia repairSurgical Historytumor removalSurgical History [id number] HistorySEE SURGICAL HX [employer] Other Reason for referral (narrative)No reason for referral information availableTrinity Health [facility] Work Phone: Summary Purpose Family History Relationship Condition Age at Onset Recorded Date/T cornelius father Unknown Not SpecifiedDeceasedUnknownHistory of strokeUnknown Relationship Condition Age at Onset Recorded Date/T cornelius father Unknown motherDeceasedUnknownHistory of strokeUnknown Relationship Condition Age at Onset Recorded Date/T cornelius father Unknown Aortic aneurysm and dissectionUnknownmotherDeceasedUnknownHistory of stroke UnknownCerebrovascular accident (CVA)UnknownbrotherDiabetes mellitusUnknown brotherParkinson's diseaseUnknown Advance Directives Advance Directive Response Recorded Date/ [...] 10, 2024 1:30am SVT (supraventricular tachycardia) u 2024 1:30am UTI (urinary tract infection) March [...] 10, 2024 1:30am SVT (supraventricular tachycardia) Febru 2024 1:30am UTI (urinary tract infection) March [...] 10 1:30am Acute systolic CHF (congestive heart ot lure) April 10, 2024 1:30am CHF (congestive [...] disease April 10 1:30am SVT (supraventricular tachycardia) u chidi2024 1:30am [...] 10 :20am Primary osteoarthritis of both knees Mar 2024 10:20am Atrial fibrillation May 23, 2024 12:5 [...] 01, 2024 2:30p m 3 month f/u Nyasia 17th, 2025 10:3 3am right ear irrigation September 18, 2024 2:3 5pm renal 3 month f/u September 23, 2024 1:5 9pm R82.81 D64.9 N25.81 N18.4 September 23 2:59pm 1 week f/u: Ear Irrigation September 24, 025 11:44am Reason for Visit Admit Date [...] 2:59pm 1 week f/u: Ear Irrigation September 24, 11:44am bilateral foot pain/possible gout 2024 3:05pm [...] 2:59pm 1 week f/u: Ear Irrigation September 24, 025 11:44am bilateral foot pain/possible gout 2024 3:05pm z79.899 i48.19 November 12, 2024 10:05am [...] emb2024 3:05pm Degenerative arthritis of right foot Sep 2024 3:05pm Foot pain, bilateral October 23, 2024 3:05pm Ischemic cardiomyopathy October 23, 2 025 3:05pm Chief Complaint Admit Date right ear irrigation September 18, 2024 2:3 5pm renal 3 month f/u September 23, 2024 1:5 9pm R82.81 D64.9 N25.81 N18.4 September 23 2:59pm 1 week f/u: Ear Irrigation September 24 2 025 11:44am bilateral foot pain/possible gout 2024 3:05pm z79.899 i48.19 November 12, 2024 10:05am renal 2 month f/u November 28, 2024 3: 08pm Reason for Visit Admit Date Cerumen impaction [...] emb2024 3:05pm Degenerative arthritis of right foot Sep 2024 3:05pm Foot pain, bilateral October 23, 2024 3:05pm Ischemic cardiomyopathy October 23, 2 025 3:05pm Anemia November 28, 2024 3: 08pm Atrial fibrillation November 28, 2024 3: 08pm CKD (chronic kidney disease) stage 4, GF R 15-29 ml/min November 28, 2024 3:08pm HFrEF (heart failure with reduced ejecti on fraction) November 28, 2024 3:08pm Hypertensive chronic kidney disease with stage 1 through stage 4 chronic ki November 28, 2024 3:08pm Hyperuricemia November 28, 2024 3: 08pm Ischemic cardiomyopathy November 28 3:08pm Pyuria November 28, 2024 3: 08pm Secondary hyperparathyroidism November 3:08pm Elevated cholesterol November 28, 2024 3 :08pm Chief Complaint Admit Date right ear irrigation September 18, 2024 2:3 5pm renal 3 month f/u September 23, 2024 1:5 9pm R82.81 D64.9 N25.81 N18.4 September 23 2:59pm 1 week f/u: Ear Irrigation September 24, 025 11:44am bilateral foot pain/possible gout 2024 3:05pm z79.899 i48.19 November 12, 2024 10:05am renal 2 month f/u November 28, 2024 3: 08pm 4 month f/u December 10, 2024 1 0:13am Reason for Visit Admit Date Cerumen impaction [...] 23 3:05pm Degenerative arthritis of left foot Sept 2024 3:05pm Degenerative arthritis of right foot Sep 2024 3:05pm Foot pain, bilateral October 23, 2024 3:05pm Ischemic cardiomyopathy October 23, 2 025 3:05pm Atrial fibrillation November 28, 2024 3: 08pm CKD (chronic kidney disease) stage 4, GF R 15-29 ml/min November 28, 2024 3:08pm HFrEF (heart failure with reduced ejecti on fraction) November 28, 2024 3:08pm Hypertensive chronic kidney disease with stage 1 through stage 4 chronic ki November 28, 2024 3:08pm Hyperuricemia November 28, 2024 3: 08pm Ischemic cardiomyopathy November 28 3:08pm Secondary hyperparathyroidism November 3:08pm Elevated cholesterol November 28, 2024 3 :08pm Atrial fibrillation December 10, 2024 1 0:13am Chronic kidney disease December 10 10:13am HFrEF (heart failure with reduced ejecti on fraction) December 10, 2024 10:13am Hypertension December 10, 2024 1 0:13am Ischemic cardiomyopathy December 10 10:13am Primary osteoarthritis of both knees Nov 10:13am Elevated cholesterol December 10, 2024 10:13am Additional Source Comments (unrecognized sect ion and content) No Status Records FoundNo Status Records Found INFORMATION SOURCE (unrecogn ized section and content) DATE CREATED AUTHOR 12/13/[address] [facility] DATE CREATED AUTHOR AUTHOR'S ORGANIZ ATION 11/26/2024 [facility] REASON FOR VISIT (unrecogniz ed section and content) ReasonCommentsHospital Follow-upFR discharge 04/18SpecialtyDiagnoses / ProceduresReferred By ContactReferred To Contact Diagnoses Persistent atrial fibrillation (Multi) Procedures ECG 12 Lead Mely Ken MD [address] [address], [address] [address] Phone: tel: fax: Referral IDStatusReasonStart DateExpiration DateVisits RequestedVisits [id number]/[id number]/[id number] months Cardiomyopathy, ischemicSpecialtyDiagnoses / ProceduresReferred By Contact Referred To ContactCardiology Diagnoses Cardiomyopathy, ischemic Procedures Follow Up In Cardiology Mely Ken MD [address] [place] [address] 2, [place] [address] Phone: tel: fax: Mely Ken MD [address] [facility] [address], [place] [id number] Phone: tel: fax: Referral IDStatusReasonStart DateExpiration DateVisits RequestedVisits [id number]/10/20253/10/202611 Care Teams (unrecognized sec tion and content) Team Status: Active Member Role Status Dates Ranjan Andersen DO Primary Care Provider Active Team Status: Active Member Role Status Dates Ranjan Andersen DO Primary Care Provider Active Start: September 18, 2024 Jasmyne Patrickending ProviderActiveStart: September 18, 2024 Team Status: Inactive Member Role Status Dates Ranjan Andersen DO Primary Care Provider Active Start: September 18, 2024 End: September 18lizeth Andersen DOAttending ProviderActiveStart: September 18, 2024 End: September 18, 2024 Team Status: Inactive Member Role Status Dates Ranjan Andersen DO Primary Care Provider Active Start: September 23, 2024 End: September 23bill Monroy MDAttending ProviderActiveStart: September 23, 2024 End: September 23, 2024 Team Status: Inactive Member Role Status Dates Ranjan Andersen DO Primary Care Provider Active Start: September 24, 2024 End: September 24endenisha Andersen DOAttending ProviderActiveStart: September 24, 2024 End: September 24, 2024 Team Status: Inactive Member Role Status Dates Ranjan Andersen DO Primary Care Provider Active Start: October 23, 2024 End: October 23endenisha Andersen , DOAttending ProviderActiveStart: October 23, 2024 End: October 23, 2024 Team Status: Active Member Role Status Dates Ranjan Andersen DO Primary Care Provider Active Start: November 12, 2024 Mely Ken MDOther ProviderActiveStart: November 12, 2024 Myke Rojo , MDAttending ProviderActiveStart: November 12, 2024 Team Status: Inactive Member Role Status Dates Ranjan Andersen DO Primary Care Provider Active Start: July 01, 2024 End: July 01bill Monroy , MDAttending ProviderActiveStart: July 01, 2024 End: July 01, 2024 Team Status: Inactive Member Role Status Yohana Andersen DO Primary Care Provider Active Start: August 06, 2024 End: August 06endenisha Andersen , DOAttending ProviderActiveStart: August 06, 2024 End: August 06, 2024 Team Status: Active Member Role Status Yohana Andersen DO Primary Care Provider Active Start: June 24, 2024 Tobi Monroy , MDAttending ProviderActiveStart: June 24, 2024 Team Status: Inactive Member Role Status Yohana Andersen DO Primary Care Provider Active Start: June 24, 2024 End: June 24endenisha Andersen DOAttending ProviderActiveStart: June 24, 2024 End: June 24, 2024 [...] Active Start: April 10, 2024 End: April 18ndCassidy Gtz ProviderActiveStart: April 10, 2024 End: April 18, 2024Ai Orantes RNOther ProviderActiveStart: April 10, 2024 End: April 18, 2024W Doyle Pappas ProviderActiveStart: April 10, 2024 End: April 18, 2024Rahel Nettles ProviderActiveStart: April 10, 2024 End: April 18, 2024Rahel Oconnor ProviderActiveStart: April 10, 2024 End: April 18, 2024Rahel Bearden ProviderActiveStart: April 10, 2024 End: April 18Rahel Dhaliwal ProviderActiveStart: April 10, 2024 End: April 18, 2024Lea De Los Santos ProviderActiveStart: April 10, 2024 End: April 18, 2024GeRahel Feng ProviderActiveStart: April 10, 2024 End: April 18, 2024MoRahel Domingo ProviderActiveStart: April 10, 2024 End: April 18, 2024TaRahel Barrientos ProviderActiveStart: April 10, 2024 End: April 18aroKAREL Hamlin-BCOther ProviderActiveStart: April 10, 2024 End: April 18, 2024Rahel Porras ProviderActiveStart: April 10, 2024 End: April 18, 2024Naa Gómezher ProviderActiveStart: April 10, 2024 End: April 18Rahel Gaines ProviderActiveStart: April 10, 2024 End: April 18Rahel Hoyt ProviderActiveStart: April 10, 2024 End: April 18, 2024Rahel Miller ProviderActiveStart: April 10, 2024 End: April 18, 2024Rahel Packer ProviderActiveStart: April 10, 2024 End: April 18, 2024Lea Valenzuela ProviderActiveStart: April 10, 2024 End: April 18enedijono Curran Jr, DOOther ProviderActiveStart: April 10, 2024 End: April 18gabe Inman MDOther ProviderActiveStart: April 10, 2024 End: April 18, 2024Jn Yanes MDAttending ProviderActiveStart: April 10, 2024 End: April 18, 2024 Team Status: Active Member Role Status Dates Ranjan Andersen DO Primary Care Provider Active Start: April 12, 2024 Kurtis Langley MDAdmtao ProviderActiveStart: April 12, 2024 Jersey Bess MDOther ProviderActiveStart: April 12, 2024 Ai Orantes RNOther ProviderActiveStart: April 12, 2024 Dequan Kirkpatrick DOOther ProviderActiveStart: April 12, 2024 Keron Gutierres MDOther ProviderActiveStart: April 12, 2024 Gurjit Villagran MDOther ProviderActiveStart: April 12, 2024 Mely Ken MDOther ProviderActiveStart: April 12, 2024 Yvan Mckeon MDOther ProviderActiveStart: April 12, 2024 Hailey Weinberg APRNOther ProviderActiveStart: April 12, 2024 Leonie Gaines MDOther ProviderActiveStart: April 12, 2024 Lexi Archuleta MDOther ProviderActiveStart: April 12, 2024 Bret Castañeda MDOther ProviderActiveStart: April 12, 2024 Susana Velarde , TELECOMMUNICATIONS CONSULTANT-BCOther ProviderActiveStart: April 12, 2024 Felicia Aguilar MDOther ProviderActiveStart: April 12, 2024 Tavia Hernandez NP-COther ProviderActiveStart: April 12, 2024 Tobi Monroy MDAttending Provider, Other ProviderActiveStart: April 12, 2024 Noel Lilly MDOther ProviderActiveStart: April 12, 2024 Team Status: Active Member Role Status Dates Ranjan Andersen DO Primary Care Provider Active Start: April 13, 2024 Kurtis Langley MDAdmtao ProviderActiveStart: April 13, 2024 Jersey Bess MDOther ProviderActiveStart: April 13, 2024 Ai Orantes RNOther ProviderActiveStart: April 13, 2024 Dequan Kirkpatrick DOOther ProviderActiveStart: April 13, 2024 Keron Gutierres MDOther ProviderActiveStart: April 13, 2024 Gurjit Villagran MDOther ProviderActiveStart: April 13, 2024 Rahel Bearden ProviderActiveStart: April 13, 2024 Yvan Mckeon MDOther ProviderActiveStart: April 13, 2024 Lea De Los Santos ProviderActiveStart: April 13, 2024 Leonie Gaines MDOther ProviderActiveStart: April 13, 2024 Lexi Haylee Archuleta MDOther ProviderActiveStart: April 13, 2024 Bret Castañeda MDOther ProviderActiveStart: April 13, 2024 Susana Velarde , TELECOMMUNICATIONS CONSULTANT-BCOther ProviderActiveStart: April 13, 2024 Felicia Aguilar MDOther ProviderActiveStart: April 13, 2024 Tavia Hernandez NP-COther ProviderActiveStart: April 13, 2024 Tobi Monroy MDOther ProviderActiveStart: April 13, 2024 Noel Llily MDOther ProviderActiveStart: April 13, 2024 Bubba Jessica MDAttending ProviderActiveStart: April 13, 2024 Team Status: Active Member Role Status Dates Ranjan Andersen DO Primary Care Provider Active Start: April 16, 2024 Kurtis Langley MDAdmit ProviderActiveStart: April 16, 2024 Jersey Bess MDOther ProviderActiveStart: April 16, 2024 Ai Orantes RNOther ProviderActiveStart: April 16, 2024 Dequan Kirkpatrick DOOther ProviderActiveStart: April 16, 2024 Keron Gutierres MDOther ProviderActiveStart: April 16, 2024 Gurjit Villagran MDOther ProviderActiveStart: April 16, 2024 Mely Ken MDOther ProviderActiveStart: April 16, 2024 Yvan Mckeon MDOther ProviderActiveStart: April 16, 2024 Lea De Los Santos ProviderActiveStart: April 16, 2024 Leonie Gaines MDOther ProviderActiveStart: April 16, 2024 Lexi Archuleta MDOther ProviderActiveStart: April 16, 2024 Bret Castañeda MDOther ProviderActiveStart: April 16, 2024 LOLI RivasP-BCOther ProviderActiveStart: April 16, 2024 Felicia Aguilar MDOther ProviderActiveStart: April 16, 2024 Tavia Hernandez , GEAR ROOM KEEPER-COther ProviderActiveStart: April 16, 2024 Tobi Monroy MDOther ProviderActiveStart: April 16, 2024 Noel Lilly MDOther ProviderActiveStart: April 16, 2024 Gin Conrad MDOther ProviderActiveStart: April 16, 2024 Luis Patel , MDAttending Provider, Other ProviderActiveStart: April 16, 2024 Cathleen Kumari APRNOther ProviderActiveStart: April 16, 2024 Colt Curran Jr DOOther ProviderActiveStart: April 16, 2024 David Inman MDOther ProviderActiveStart: April 16, 2024 Team Status: Active Member Role Status Dates Ranjan Andersen DO Primary Care Provider Active Start: April 22, 2024 Charis Parker CMAAttending ProviderActiveStart: April 22, 2024 Team Status: Inactive Member Role Status Dates Ranajn Andersen DO Primary Care Provide r, Attending Provider Active Start: April 23, 2024 End: April 23, 2024 Team Status: Active Member Role Status Dates Ranjan Andersen DO Primary Care Provide r, Attending Provider Active Start: April 10, 2024 Team Status: Inactive Member Role Status Dates Ranjan Andersen DO Primary Care Provider Active Start: April 23, 2024 End: April 23León Gaines ProviderActiveStart: April 23, 2024 End: April 23, 2024Team MemberRelationshipSpecialtyStart DateEnd Date Ranjan Andersen DO [address] [place] [address] PCP - GeneralInternal Medicine04/16/24 Echo Regalado, RUDDY Care ManagerCase Management04/19/24 Team Status: Active Member Role Status Dates Ranjan Andersen DO Primary Care Provide r, Attending Provider Active Start: May 07, 2024 Team Status: Inactive Member Role Status Dates Ranjan Andersen DO Primary Care Provide r, Attending Provider Active Start: May 08, 2024 End: May 08, 2024 Team Status: Active Member Role Status Dates Ranjan Andersen DO Primary Care Provider Active Start: May 13, 2024 Tobi Eliana , MDAttending ProviderActiveStart: May 13, 2024 Team Status: Inactive Member Role Status Dates Ranjan Andersen DO Primary Care Provider Active Start: May 23, 2024 End: May 23bdul Eliana , MDAttending ProviderActiveStart: May 23, 2024 End: May 23, 2024 Team Status: Inactive Member Role Status Dates Ranjan Andersen DO Primary Care Provide r, Attending Provider Active Start: June 24, 2024 End: June 24, 2024Team MemberRelationshipSpecialtyStart DateEnd Date Ranjan Andersen DO [address] [place] [address] [facility]04/16/24 Team Status: Active Member Role Status Dates Ranjan Andersen DO Primary Care Provider Active Start: November 25, 2024 Tobi Eliana , MDAttending ProviderActiveStart: November 25, 2024 Team Status: Inactive Member Role Status Dates Ranjan Andersen DO Primary Care Provider Active Start: November 28, 2024 End: November 28bdul Eliana , MDAttending ProviderActiveStart: November 28, 2024 End: November 28, 2024 Team Status: Active Member Role/Relationship Status Dates Ranjan Andersen DO Primary Care Provider Active Team Status: Active Member Role/Relationship Status Dates Ranjan Andersen DO Primary Care Provider Active Start: September 18, 2024 Tobi Eliana , MDAttending ProviderActiveStart: September 18, 2024 Team Status: Inactive Member Role/Relationship Status Dates Ranjan Andersen DO Primary Care Provider Active Start: September 18, 2024 End: September 18lizeth Andersen DOAttopal ProviderActiveStart: September 18, 2024 End: September 18, 2024 Team Status: Inactive Member Role/Relationship Status Dates Ranjan Andersen DO Primary Care Provider Active Start: September 23, 2024 End: September 23bdul Eliana , MDAttending ProviderActiveStart: September 23, 2024 End: September 23, 2024 Team Status: Inactive Member Role/Relationship Status Dates Ranjan Andersen DO Primary Care Provider Active Start: September 23, 2024 End: September 23bdul Eliana , MDAttending ProviderActiveStart: September 23, 2024 End: September 23, 2024 Team Status: Inactive Member Role/Relationship Status Dates Ranjan Andersen DO Primary Care Provider Active Start: September 24, 2024 End: September 24endenisha Andersen , DOAttending ProviderActiveStart: September 24, 2024 End: September 24, 2024 Team Status: Inactive Member Role/Relationship Status Dates Ranjan Andersen DO Primary Care Provider Active Start: October 23, 2024 End: October 23endenisha Andersen , DOAttending ProviderActiveStart: October 23, 2024 End: October 23, 2024 Team Status: Active Member Role/Relationship Status Dates Ranjan Andersen DO Primary Care Provider Active Start: November 12, 2024 Rhael Bearden ProviderActiveStart: November 12, 2024 Myke Rojo , MDAttending ProviderActiveStart: November 12, 2024 Team Status: Active Member Role/Relationship Status Dates Ranjan Andersen DO Primary Care Provider Active Start: November 25, 2024 Tobi Eliana , MDAttending ProviderActiveStart: November 25, 2024 Team Status: Inactive Member Role/Relationship Status Dates Ranjan Andersen DO Primary Care Provider Active Start: November 28, 2024 End: November 28bdul Eliana , MDAttending ProviderActiveStart: November 28, 2024 End: November 28, 2024 Team Status: Inactive Member Role/Relationship Status Dates Ranjan Andersen DO Primary Care Provider Active Start: December 10, 2024 End: December 10endenisha Andersen , DOAttending ProviderActiveStart: December 10, 2024 End: December 10, 2024 Goals (unrecognized section and content) Goals [...] BE BASED ON THE PRIMARY CLINICAL RECORDS. [employer] [facility]. provides no warranty or guarantee of the accuracy or completeness of information in this document.
[2025-02-17 12:51] LABS: Hematocrit 45.8 % (42.0-54.0); Hemoglobin 15.0 g/dL (14.0-18.0); Mean Corpuscular HGB Conc 32.8 g/dL (29.9-35.2); Mean Corpuscular Hemoglobin 29.6 pg (25.9-34.0); Mean Corpuscular Volume 90.3 fL (80.0-94.0); Platelet Count 233 10^3/uL (150-450); Red Blood Count 5.07 10^6/uL (4.70-6.10); White Blood Count 8.7 10^3/uL (4.0-11.0)
[2025-02-17 13:46] LABS: Albumin Level 3.9 g/dL (3.4-5.0); Anion Gap 12.5; Blood Urea Nitrogen 47.0 mg/dL (7.0-18.0); Calcium 9.2 mg/dL (8.5-10.1); Carbon Dioxide 31.1 mmol/L (21.0-32.0); Chloride 101 mmol/L (98-107); Estimated GFR (African America 26 (>=60 mL/min/1.73m^2); Estimated GFR (Non-African Ame 21 (>=60 mL/min/1.73m^2); Glucose 111 mg/dL (74-106); Magnesium 2.6 mg/dL (1.8-2.4); Potassium 4.6 mmol/L (3.5-5.1); Sodium 140 mmol/L (136-145); Uric Acid 12.0 mg/dL (3.5-7.2)
[2025-02-17 14:08] LABS: Iron 104.0 ug/dL (65.0-175.0); Percent Iron Saturation 39.7 %; Total Iron Binding Capacity 262.0 ug/dL (250.0-450.0)
[2025-02-17 14:31] LABS: Ferritin 111.0 ng/mL (26.0-388.0)
[2025-02-17 16:22] LABS: Protein Creatinine Ratio Urine 0.54; Total Protein Urine Random 26.5 mg/dL (<=11.9)
== END 2025-02-17 11:27 | disposition home or self-care (01) ==
PROVIDERS: PCP Internal Medicine; Visit Provider Internal Medicine
DX: R82.81 Pyuria (principal); I12.9 Hypertensive chronic kidney disease with stage 1 through stage 4 chronic kidney disease, or unspecified chronic kidney disease; E79.0 Hyperuricemia without signs of inflammatory arthritis and tophaceous disease; D64.9 Anemia, unspecified; N25.81 Secondary hyperparathyroidism of renal origin; N18.4 Chronic kidney disease, stage 4 (severe)
CPT/HCPCS: 36415; 80069; 82306; 82570; 82728; 83540; 83550; 83735; 83970; 84156; 84550; 85027